=== PATIENT | male | born 1940 | race Caucasian/White ===

== ENCOUNTER → 2016-11-12 | Outpatient (CLI) | payer MEDICARE, MEDICAID | LOC: HH 11:53 | PROVIDERS: ATTEND Family Medicine | DX: L03.115 Cellulitis of right lower limb (principal); L03.116 Cellulitis of left lower limb; E03.9 Hypothyroidism, unspecified; I25.10 Atherosclerotic heart disease of native coronary artery without angina pectoris; I73.9 Peripheral vascular disease, unspecified; J44.9 Chronic obstructive pulmonary disease, unspecified; E66.01 Morbid (severe) obesity due to excess calories; H91.93 Unspecified hearing loss, bilateral; R26.81 Unsteadiness on feet | CPT/HCPCS: 87070; 87077; 87205 ==

== ENCOUNTER → 2016-11-18 | Outpatient (CLI) | payer MEDICARE, MEDICAID ==
[2016-11-18 16:36] LABS: BASOPHILS # (AUTO) 0.2 10^3/uL (0.0-0.1); BASOPHILS % (AUTO) 1 % (0-10); EOSINOPHILS # (AUTO) 0.7 10^3/uL (0.0-0.3); EOSINOPHILS % (AUTO) 6 % (0-10); LYMPHOCYTES # (AUTO) 2.4 X 10^3 (1.0-4.0); LYMPHOCYTES % (AUTO) 21 % (12-44); MEAN CORPUSCULAR HEMOGLOBIN 31 PG (25-34); MEAN CORPUSCULAR HGB CONC 30 G/DL (32-36); MEAN CORPUSCULAR VOLUME 103 FL (80-99); MEAN PLATELET VOLUME 11.3 FL (7.4-10.4); MONOCYTES # (AUTO) 1.1 X 10^3 (0.0-1.0); MONOCYTES % (AUTO) 10 % (0-12); NEUTROPHILS # (AUTO) 7.2 X 10^3 (1.8-7.8); NEUTROPHILS % (AUTO) 62 % (42-75); PLATELET COUNT 313 10^3/uL (130-400); RED CELL DISTRIBUTION WIDTH 13.2 % (10.0-14.5); WHITE BLOOD COUNT 11.6 10^3/uL (4.3-11.0)
[2016-11-18 16:53] LABS: ALANINE AMINOTRANSFERASE 26 U/L (0-55); ALBUMIN 3.7 GM/DL (3.2-4.5); ANION GAP 9 MMOL/L (5-14); ASPARTATE AMINO TRANSFERASE 27 U/L (5-34); BILIRUBIN,TOTAL 0.4 MG/DL (0.1-1.0); BLOOD UREA NITROGEN 20 MG/DL (7-18); BUN/CREATININE RATIO 25; CALCIUM 9.1 MG/DL (8.5-10.1); CARBON DIOXIDE 34 MMOL/L (21-32); CHLORIDE 99 MMOL/L (98-107); GFR ESTIMATED > 60; GLUCOSE 89 MG/DL (70-105); POTASSIUM 4.3 MMOL/L (3.6-5.0); SODIUM 142 MMOL/L (135-145); TOTAL PROTEIN 7.1 GM/DL (6.4-8.2)
== END ==
LOC: HH 16:28
PROVIDERS: ATTEND Family Medicine
DX: L03.115 Cellulitis of right lower limb (principal); I25.10 Atherosclerotic heart disease of native coronary artery without angina pectoris; J44.9 Chronic obstructive pulmonary disease, unspecified; E03.9 Hypothyroidism, unspecified; R06.02 Shortness of breath; E66.01 Morbid (severe) obesity due to excess calories; I95.9 Hypotension, unspecified; R60.0 Localized edema; R26.81 Unsteadiness on feet
CPT/HCPCS: 80053; 80202; 85025

== ENCOUNTER → 2016-11-25 | Outpatient (CLI) | payer MEDICARE, MEDICAID ==
[2016-11-25 15:26] LABS: MEAN PLATELET VOLUME 11.2 FL (7.4-10.4); RED BLOOD COUNT 4.13 10^6/uL (4.35-5.85); RED CELL DISTRIBUTION WIDTH 13.4 % (10.0-14.5); WHITE BLOOD COUNT 12.1 10^3/uL (4.3-11.0)
[2016-11-25 15:41] LABS: ANION GAP 8 MMOL/L (5-14); BLOOD UREA NITROGEN 19 MG/DL (7-18); BUN/CREATININE RATIO 23; CALCIUM 9.3 MG/DL (8.5-10.1); CARBON DIOXIDE 38 MMOL/L (21-32); CHLORIDE 95 MMOL/L (98-107); CREATININE SERUM 0.84 MG/DL (0.60-1.30); GFR ESTIMATED > 60; GLUCOSE 119 MG/DL (70-105); POTASSIUM 4.4 MMOL/L (3.6-5.0); SODIUM 141 MMOL/L (135-145)
== END ==
LOC: HH 14:00
PROVIDERS: ATTEND Family Medicine
DX: L03.115 Cellulitis of right lower limb (principal); L03.116 Cellulitis of left lower limb
CPT/HCPCS: 80048; 80202; 85027

== ENCOUNTER 2017-02-27 20:06 | Inpatient (IN) | payer MEDICARE, MEDICAID ==
[~2017-02-27] VITALS: Ht 172.7 cm; Wt 121.2 kg
[~2017-02-27 20:06] MED LIST: FUROSEMIDE 40 MG/4 ML INJ (LASIX) ONE; MIDAZOLAM 5 MG/5 ML (VERSED) VIAL IV ONE; ROCURONIUM 50 MG/5 ML (ZEMURON) VIAL IV ONE; SUCCINYLCHOLINE INJ 100 MG/5 ML SYR INJ ONE; methylPREDNISolone 125 MG (Solu-MEDROL) VIAL ONE
[2017-02-27] MEDS ORDERED: methylPREDNISolone 125 MG (Solu-MEDROL) VIAL IVP ONE (20:15)
[2017-02-27] MEDS ORDERED: DEXAMETHASONE 10 MG/ML (DECADRON) 1 ML VIAL INH ONE (20:15)
[2017-02-27] MEDS ORDERED: ACETAMINOPHEN 650 MG SUPP (TYLENOL) PR ONE (20:15)
[2017-02-27] MEDS ORDERED: RT-ALBUTEROL/IPRATROPIUM 3 ML (DUONEB) VIAL INH ONE (20:15)
[2017-02-27 20:23] LABS: ABG BASE EXCESS 8.1 MMOL/L (-2.5-2.5); ABG HCO3 33 MMOL/L (23-27); ABG OXYGEN SATURATION 86 % (94-100); ABG PCO2 59 MMHG (35-45); ABG PH 7.38 (7.37-7.43); ABG PO2 53 MMHG (79-93); ABG TCO2 34.6 MMOL/L (21.0-31.0)
[2017-02-27 20:28] LABS: BASOPHILS # (AUTO) 0.1 10^3/uL (0.0-0.1); BASOPHILS % (AUTO) 0 % (0-10); EOSINOPHILS # (AUTO) 0.1 10^3/uL (0.0-0.3); EOSINOPHILS % (AUTO) 0 % (0-10); LYMPHOCYTES # (AUTO) 2.1 X 10^3 (1.0-4.0); LYMPHOCYTES % (AUTO) 10 % (12-44); MEAN CORPUSCULAR HEMOGLOBIN 31 PG (25-34); MEAN CORPUSCULAR HGB CONC 30 G/DL (32-36); MEAN CORPUSCULAR VOLUME 102 FL (80-99); MEAN PLATELET VOLUME 10.9 FL (7.4-10.4); MONOCYTES # (AUTO) 1.7 X 10^3 (0.0-1.0); MONOCYTES % (AUTO) 8 % (0-12); NEUTROPHILS # (AUTO) 17.4 X 10^3 (1.8-7.8); NEUTROPHILS % (AUTO) 81 % (42-75); PLATELET COUNT 363 10^3/uL (130-400); RED BLOOD COUNT 4.42 10^6/uL (4.35-5.85); RED CELL DISTRIBUTION WIDTH 13.8 % (10.0-14.5); WHITE BLOOD COUNT 21.4 10^3/uL (4.3-11.0)
[2017-02-27 20:28] LABS: ALLENS TEST POSITIVE
[2017-02-27 20:29] LABS: PATIENT TEMP 102.1
[2017-02-27 20:38] LABS: INR 0.9 (0.8-1.4); PROTHROMBIN TIME PATIENT 12.5 SEC (12.2-14.7)
[2017-02-27 20:47] LABS: ALANINE AMINOTRANSFERASE 18 U/L (0-55); ALBUMIN 4.2 GM/DL (3.2-4.5); ANION GAP 10 MMOL/L (5-14); ASPARTATE AMINO TRANSFERASE 20 U/L (5-34); BILIRUBIN,TOTAL 0.7 MG/DL (0.1-1.0); BLOOD UREA NITROGEN 20 MG/DL (7-18); BUN/CREATININE RATIO 17; CALCIUM 9.8 MG/DL (8.5-10.1); CARBON DIOXIDE 35 MMOL/L (21-32); CHLORIDE 93 MMOL/L (98-107); CREATININE SERUM 1.17 MG/DL (0.60-1.30); GFR ESTIMATED 60; GLUCOSE 123 MG/DL (70-105); MAGNESIUM 1.9 MG/DL (1.8-2.4); POTASSIUM 4.7 MMOL/L (3.6-5.0); SODIUM 138 MMOL/L (135-145); TOTAL PROTEIN 8.6 GM/DL (6.4-8.2)
[2017-02-27] MEDS ORDERED: ACETAMINOPHEN 120 MG SUPP (TYLENOL) PR STA (20:47)
[2017-02-27 20:48] LABS: BAND NEUTROPHILS 0 %; BASOPHILS % (MANUAL) 0 %; EOSINOPHILS % (MANUAL) 0 %; LYMPHOCYTES % (MANUAL) 8 %; NEUTROPHILS % (MANUAL) 87 %
[2017-02-27 20:53] LABS: MYOGLOBIN SERUM 72.8 NG/ML (10.0-92.0)
--- NOTE | 2017-02-27 20:59 | Diagnostic Imaging Report ---
INDICATION: Shortness of breath COMPARISON: None FINDINGS: Single view of the chest demonstrates ET tube in the midtrachea. There is an NG tube in the stomach. Heart is enlarged. There are interstitial infiltrates scattered throughout both lungs, more so in the bases. There is no pneumothorax or large effusion. IMPRESSION: 1. Well-positioned support lines without pneumothorax. 2. Cardiac enlargement with interstitial infiltrates representing pulmonary edema versus pneumonia. Dictated by: Dictated on workstation # [id number]
[2017-02-27] MEDS ORDERED: ROCURONIUM 50 MG/5 ML (ZEMURON) VIAL IV ONE ×2 (21:13→21:30)
[2017-02-27] MEDS ORDERED: FUROSEMIDE 40 MG/4 ML INJ (LASIX) IVP ONE (21:15)
[2017-02-27] MEDS ORDERED: cefTRIAXone INJECTION 2,000 MG in NS (IVPB) 50 ML IV ONE (21:15)
--- NOTE | 2017-02-27 21:33 | ED Respiratory ---
General Chief Complaint: Respiratory Problems Stated Complaint: ACUTE ON CHRONIC RESPIRATORY FAILURE,COPD,PNEUMONI Nursing Triage Note: PT TO ED 7 PER EMS FOR C/O SOB. PT PRESENTLY ON CPAP, APPEARS TO STILL BE STRUGGLING TO BREATH. RT, DR HOOK ET STAFF AT BEDSIDE Source: patient, EMS, old records (NO OLD RECORDS ) Exam Limitations: clinical condition (PT IS MINIMAL HISTORIAN DUE TO SEVERE SHORTNESS OF BREATH) History of Present Illness Time seen by provider: 20:07 Initial Comments PT ARRIVES VIA EMS FROM HOME C/O SHORTNESS OF BREATH FOR 2-3 DAYS--PT HAS HISTORY OF COPD AND CHF C/O PRODUCTIVE COUGH HAS HAD SUBJECTIVE FEVER SOME CHEST TIGHTNESS HAS CHRONIC LEG EDEMA--LEGS WRAPPED O2 SAT 88 ON 15L/NRB AT SCENE BY EMS, PT PLACED ON CPAP BY EMS ON ARRIVAL, PT STATES THAT HE HAS BEEN ON A VENTILATOR IN THE PAST, AND AGREES TO INTUBATION AND CPR ON ARRIVAL FAMILY ( AND DAUGHTER) ARRIVES LATER AND REPORTS THAT PT HAS HOME HEALTH AND NURSE WAS THERE YESTERDAY AND ADVISED HIM TO GO TO DR YESTERDAY DUE TO BREATHING AND CHEST CONGESTION, BUT PT REFUSED THEY ARE UNABLE TO PROVIDE ANY OTHER RELEVANT PAST MEDICAL HISTORY PCP: [facility], FAMILIA RAYMUNDO STATES 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 Allergies and Home Medications Allergies Coded Allergies: Sulfa (Sulfonamide Antibiotics) (Verified Allergy, Unknown, 02/27/17) Constitutional: fever, other (LIMITED INFORMATION OBTAINABLE AT THIS TIME) Respiratory: cough, orthopnea, phlegm, short of breath, wheezing Cardiovascular: see HPI, chest pain, edema Past Ptkfado-Pyarmu-Gfzohf Hx Patient Social History Alcohol Use: Denies Use (UNKNOWN) Recreational Drug Use: No (UNKNOWN) Smoking Status: Current Everyday Smoker (2-3 PPD) Type Used: Cigarettes Recent Foreign Travel: No Contact w/Someone Who Travel: No Recent Infectious Disease Expo: No Recent Hopitalizations: No Physical Abuse: No Sexual Abuse: No Mistreated: No Fear: No Surgeries History of Surgeries: Yes Surgeries: Abdominal (UNKNOWN TYPE) Respiratory History of Respiratory Disorde: Yes (PT STATES HE HAS BEEN ON VENTILATOR IN PAST) Respiratory Disorders: Pneumonia, COPD Cardiovascular History of Cardiac Disorders: Yes (CHF) Cardiac Disorders: Chronic Edema/Swelling Neurological History of Neurological Disord: No (UNKNOWN) Genitourinary History of Genitourinary Disor: No (unknown, pt unable to give hx) Musculoskeletal History of Musculoskeletal Dis: No (unknown, pt unable to give hx) Endocrine History of Endocrine Disorders: No (UNKNOWN) HEENT History of HEENT Disorders: No (UNKNOWN) Cancer History of Cancer: No (UNKNOWN) Psychosocial History of Psychiatric Problem: No (UNKNOWN) Suicide Risk Score: 0 Integumentary History of Skin or Integumenta: No (UNKNOWN) Blood Transfusions History of Blood Disorders: No (UNKNOWN) Physical Exam Vital Signs Vital Sign - Last 12Hours 02/27/17 20:07 Temp 102.1 Pulse 134 Resp 28 B/P (MAP) 142/102 Pulse Ox 88 O2 Delivery NIV/CPAP O2 Flow Rate 15.00 Capillary Refill : Greater Than 3 Seconds General Appearance: severe distress (SEVERE DYSPNEA, + ORTHOPNEA, CAN ONLY TALK 1 WORD AT A TIME), obese, other (REEKS OF CIGARETTEWS) HEENT: other (MISSING TEETH/POOR DENTITION) Respiratory: respiratory distress, decreased breath sounds (IN ALL LUNG ADVILA) , rales, rhonchi, wheezing, other (IN ALL LUNG DAVILA) Cardiovascular: tachycardia Gastrointestinal: soft Extremities: other (APPEARS TO HAVE 2+ EDEMA IN WRAPPED LEGS. ) Neurologic/Psychiatric: no motor/sensory deficits (GROSSLY INTACT), alert (BUT APPEARS TO BE WEARING OUT), other (ANXIOUS) Skin: other (FINGERS AND TOES DUSKY. SKIN VERY WARM AND FLUSHED WITH GOOSEBUMPS ) Focused Exam Evaluation Lactate Level Laboratory Tests 02/27/17 20:19: Lactic Acid Level 1.56 Lactic Acid Level Laboratory Tests Test 02/27/17 20:19 Lactic Acid Level 1.56 MMOL/L (0.50-2.00) Reason for Intubation: ACUTE RESPIRATORY FAILURE Intubation Method: orotracheal Tube Size: 8.0 Medications: Rocuronium, Succinylcholine, Versed Positive End Tide CO2: Yes Breath Sounds after Intubation: bilateral-equal Intubation Complications: no complications Post Intubation Xray: Yes Progress O2 SATS UP TO 100% AFTER INTUBATION Progress/Results/Core Measures Results/Orders Lab Results Laboratory Tests Test 02/27/17 20:17 02/27/17 20:19 Range/Units Blood Gas Puncture Site RIGHT RADIAL Blood Gas Patient Temperature 102.1 Arterial Blood pH 7.38 7.37-7.43 Arterial Blood Partial Pressure CO2 59 H 35-45 MMHG Arterial Blood Partial Pressure O2 53 L 79-93 MMHG Arterial Blood HCO3 33 H 23-27 MMOL/L Arterial Blood Total CO2 34.6 H 21.0-31.0 MMOL/L Arterial Blood Oxygen Saturation 86 L 94-100 % Arterial Blood Base Excess 8.1 H -2.5-2.5 MMOL/L Harshal Test POSITIVE Blood Gas Ventilator Setting NO Blood Gas Inspired Oxygen 15L (bipap <5min) White Blood Count 21.4 H 4.3-11.0 10^3/uL Red Blood Count 4.42 4.35-5.85 10^6/uL Hemoglobin 13.7 13.3-17.7 G/DL Hematocrit 45 40-54 % Mean Corpuscular Volume 102 H 80-99 FL Mean Corpuscular Hemoglobin 31 25-34 PG Mean Corpuscular Hemoglobin Concent 30 L 32-36 G/DL Red Cell Distribution Width 13.8 10.0-14.5 % Platelet Count 363 130-400 10^3/uL Mean Platelet Volume 10.9 H 7.4-10.4 FL Neutrophils (%) (Auto) 81 H 42-75 % Lymphocytes (%) (Auto) 10 L 12-44 % Monocytes (%) (Auto) 8 0-12 % Eosinophils (%) (Auto) 0 0-10 % Basophils (%) (Auto) 0 0-10 % Neutrophils # (Auto) 17.4 H 1.8-7.8 X 10^3 Lymphocytes # (Auto) 2.1 1.0-4.0 X 10^3 Monocytes # (Auto) 1.7 H 0.0-1.0 X 10^3 Eosinophils # (Auto) 0.1 0.0-0.3 10^3/uL Basophils # (Auto) 0.1 0.0-0.1 10^3/uL Neutrophils % (Manual) 87 % Lymphocytes % (Manual) 8 % Monocytes % (Manual) 5 % Eosinophils % (Manual) 0 % Basophils % (Manual) 0 % Band Neutrophils 0 % Blood Morphology Comment NORMAL Prothrombin Time 12.5 12.2-14.7 SEC INR Comment 0.9 0.8-1.4 Activated Partial Thromboplast Time 27 24-35 SEC Sodium Level 138 135-145 MMOL/L Potassium Level 4.7 3.6-5.0 MMOL/L Chloride Level 93 L 98-107 MMOL/L Carbon Dioxide Level 35 H 21-32 MMOL/L Anion Gap 10 5-14 MMOL/L Blood Urea Nitrogen 20 H 7-18 MG/DL Creatinine 1.17 0.60-1.30 MG/DL Estimat Glomerular Filtration Rate 60 BUN/Creatinine Ratio 17 Glucose Level 123 H 70-105 MG/DL Lactic Acid Level 1.56 0.50-2.00 MMOL/L Calcium Level 9.8 8.5-10.1 MG/DL Magnesium Level 1.9 1.8-2.4 MG/DL Total Bilirubin 0.7 0.1-1.0 MG/DL Aspartate Amino Transf (AST/SGOT) 20 5-34 U/L Alanine Aminotransferase (ALT/SGPT) 18 0-55 U/L Alkaline Phosphatase 90 40-136 U/L Myoglobin 72.8 10.0-92.0 NG/ML Troponin I < 0.30 <0.30 NG/ML B-Type Natriuretic Peptide 16.8 <100.0 PG/ML Total Protein 8.6 H 6.4-8.2 GM/DL Albumin 4.2 3.2-4.5 GM/DL Medications Given in ED Current Medications Medications Dose Ordered Sig/Alexandro Route Start Time Stop Time Status Last Admin Dose Admin Albuterol/ Ipratropium 15 ml ONCE ONCE INH 02/27/17 20:15 02/27/17 20:16 DC 02/27/17 21:31 15 ML Dexamethasone Sodium Phosphate 30 mg ONCE ONCE INH 02/27/17 20:15 02/27/17 20:16 DC 02/27/17 21:31 30 MG Methylprednisolone Sodium Succinate 250 mg ONCE ONCE IVP 02/27/17 20:15 02/27/17 20:16 DC 02/27/17 20:10 250 MG Vital Signs/I&O Vital Sign - Last 12Hours 02/27/17 20:07 Temp 102.1 Pulse 134 Resp 28 B/P (MAP) 142/102 Pulse Ox 88 O2 Delivery NIV/CPAP O2 Flow Rate 15.00 Blood Pressure Mean: 115 Progress Note : Progress Note O2 SAT 97% ON OXIMASK ON ARRIVAL PT IMMEDIATELY PLACED ON BIPAP, WITH SATS REMAINING IN MID 80'S AND PT BEGINNING TO QUICKLY SHOW SIGNS OF RESPIRATORY FATIGUE PT INTUBATED BY FAMILIA FERRER WITHOUT COMPLICATION, AND IMMEDIATE IMPROVEMENT IN O2 SATS TO 100% NO DETERIORATION IN PT'S CONDITION DURING ER STAY TEMP ON ARRIVAL 102--GIVE TYLENOL SUPPOSITORY --TEMP DOWN AT TIME OF ADMIT ECG Initial ECG Impression Time: 20:41 Initial ECG Rate: 130 Initial ECG Rhythm: S.Tach Initial ECG Comparisson: No Previous ECG Available Diagnostic Imaging Comments CXR--LINES WITH ADEQUATE PLACEMENT, CARDIAC ENLARGEMENT WITH INTERSTITIAL INFILTRATES--PULMONARY EDEMA AND/OR PNEUMONIA, PER RADIOLOGIST REPORT AT 2105 Reviewed: Reviewed by Me Critical Care Note Critical Care Total Time (minutes) 45 Departure Communication (Admissions) Progress Notes 2032--SPOKE WITH DR. Yasmany PISANO, ACCEPTS PT FOR ADMIT. Impression Impression: Primary Impression: Acute on chronic respiratory failure Additional Impressions: COPD (chronic obstructive pulmonary disease) Pneumonia Sepsis Disposition: ADMITTED INPATIENT Condition: Improved Admissions Decision to Admit Reason: Admit from ER (General) Decision to Admit/Date: Feb 27, 2017 Time/Decision to Admit Time: 20:35 Departure-Patient Inst. Referrals: RYAN RODRÍGUEZ DO (PCP) Primary Care Physician EDSON HOOK DO Feb 27, 2017 21:33
--- OUTSIDE RECORDS SUMMARY | 2017-02-27 21:44 | XMS REPORT | Clinical Summary ---
Author Author Admin, E Organization [employer] Address Unknown Phone Unavailable Allergies, Adverse Reactions, Alerts Allergy Name Reaction Description Start Date Severity Status Provider SULFA Severe Active Austin Albarado MD Conditions or Problems Problem Name Problem Code Onset Date Status Entry Date Provider Comment Standard Description Annotate Asthma 493.90 Active Austin Albarado MD Asthma , unspecified Hypothyroidism 244.9 Active Austin Albarado MD Unspecified hypothyroidism COPD 496 Active Austin Albarado MD Chronic airway obstruction, not elsewhere classified Peripheral edema 782.3 Active Austin Albarado MD Edema Tinea corporis 110.5 Active Austin Albarado MD Dermatophytosis of the body U R I 465.9 Inactive Austin Albarado MD Acute upper respiratory infections of unspecified site Screening for lipoid disorders V77.91 Active Mica Sneed Screening for lipoid disorders Health screening V70.0 Active Mica Sneed Routine general medical examination at a health care facility Seasonal allergies 477.9 Active Austin Albarado MD Allergic rhinitis, cause unspecified Tobacco abuse 305.1 Active Austin Albarado MD Tobacco use disorder Rash 782.1 Active Tristan Vaughn MD Rash and other nonspecific skin eruption Influenza, with respiratory symptoms 487.1 Active Jann Law DO Influenza with other respiratory manifestations COPD, acute exacerbation 491.21 Active Jann Law DO Obstructive chronic bronchitis with (acute) exacerbation Bronchitis-Acute 466.0 Inactive Austin Albarado MD Acute bronchitis Chest pain 786.50 Active Austin Albarado MD Unspecified chest pain Chronic obstructive pulmonary disease, 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 Tracie Arrington APRN Chronic airway obstruction, not elsewhere classified Family history of myocardial infarction V17.3 Active Tracie Arrington APRN Family history of ischemic heart disease CAD 414.00 Active Tracie Arrington APRN Coronary atherosclerosis of unspecified type of vessel, [place] or graft Peripheral edema 782.3 Active Austin Albarado MD Edema Shortness of breath 786.05 Active Simona Galloway APRN Shortness of breath Hypotension 458.9 Active Simona Galloway APRN Hypotension, unspecified Shingles 053.9 Active Simona Galloway APRN Herpes zoster without mention of complication Arthritis, generalized 716.99 Active Austin Albarado MD Arthropathy unspecified, involving multiple sites Cellulitis, legs 682.6 Active Simona Galloway APRN Cellulitis and abscess of leg, except foot Morbid obesity 278.01 Active Simona Galloway APRN Morbid obesity Unsteady gait 781.2 Active Simona Galloway APRN Abnormality of gait U R I ICD-465.9 Inactive Austin Albarado MD 06/13 Bronchitis-Acute ICD-466.0 Inactive Austin Albarado MD Medication List Medication Instructions Start Date Stop Date Generic Name NDC Status Provider Patient Instruction IPRATROPIUM-ALBUTEROL 0.5-2.5 (3) MG/3ML INH SOLN Use one ampule in Nebulizer Q 6 hrs prn DX: J44.9 IPRATROPIUM-ALBUTEROL 22199284389 Active Mackenzie Sher RMA Active IPRATROPIUM BROMIDE 0.02 % INH SOLN 1 q 6 hr PRN Dx: J44.1 12/29 IPRATROPIUM BROMIDE 02467045704 No Longer Active Mackenzie Christos RMA Active ACYCLOVIR 400 MG TABS 1 pill three times daily ACYCLOVIR 58342590320 No Longer Active Austin Albarado MD Active POTASSIUM CHLORIDE ER 20 MEQ ORAL CR-TABS 1 po BID along with the lasix 12/24 POTASSIUM CHLORIDE 36448854090 Active Austin Albarado MD Active FUROSEMIDE 40 MG TAB 1 tablet by mouth BID for swelling FUROSEMIDE 83955935875 Active Austin Alabrado MD Active CELEXA 20 MG TABS 1 tablet by mouth daily CITALOPRAM HYDROBROMIDE 34514407851 Active Austin Albarado MD Active KEFLEX 500 MG CAP 1 po BID x 7 days CEPHALEXIN 20154842421 No Longer Active Mica Sneed Active KEFLEX 500 MG CAP 1 po BID x 7 days CEPHALEXIN 96755984774 No Longer Active Simona Galloway APRN Active ACYCLOVIR 400 MG TABS 1 pill three times daily ACYCLOVIR 43252869578 No Longer Active Austin Albarado MD Active ACYCLOVIR 400 MG TABS 1 pill three times daily ACYCLOVIR 02982259425 No Longer Active Austin Albaardo MD Active ALBUTEROL SULFATE 0.083 % NEBU SOLN one vial per nebulizer every 4 hours as needed Dx. J44.1 ALBUTEROL SULFATE 62996206576 Active Austin Albarado MD Active PROAIR HFA 108 (90 BASE) MCG/ACT AERS take 1-2 puffs q 4-6 hrs prn cough/ SOB ALBUTEROL SULFATE 20280575612 Active Nella José LPN Active IPRATROPIUM-ALBUTEROL 0.5-2.5 (3) MG/3ML SOLN 1 VIAL NEB Q 4-6 HRS PRN 04/18 IPRATROPIUM-ALBUTEROL 86485445907 No Longer Active Austin Albarado MD Active ATIVAN 0.5 MG TAB 1 po QD PRN Anxiety LORAZEPAM 33871678265 Active Austin Albarado MD Active PREDNISONE 20 MG ORAL TABS 3 tabs po for 3 days than,2 tabs po for 3 days,1 tab po for 3 days, 1/2 tab po for 3 days. PREDNISONE 14539051239 No Longer Active Simona Galloway APRN Active LEVAQUIN 500 MG TAB 1 tablet by mouth daily LEVOFLOXACIN 62871360055 No Longer Active Simona Galloway APRN Active PREDNISONE 20 MG TAB take 3 tabs daily for 3 days, 2 tabs daily for 3 days, 1 tab daily for 3 days, 1/2 tab daily for 3 days PREDNISONE 81853268921 No Longer Active Austin Albarado MD Active LEVAQUIN 500 MG TAB 1 tablet by mouth daily LEVOFLOXACIN 75027366172 No Longer Active Madhavi Macarena Active FUROSEMIDE 20 MG TABS take 1 tab po BID for swelling FUROSEMIDE 44659402629 Active Austin Albarado MD Active AMOXICILLIN 500 MG ORAL TABS Take one by mouth 3 times daily, morning, afternoon and evening.] AMOXICILLIN 92317508558 No Longer Active Garcia Stroud MD Active PREDNISONE 20 MG ORAL TABS 3 daily for 3 days than, 2 tabs daily for 3 days than, 2 tabs daily for 3 days than, 1 tab daily for 3 days than 1/2 tab daily for 3 days. PREDNISONE 35340154470 No Longer Active Tracie Arrington APRN Active FLUTICASONE PROPIONATE 50 MCG/ACT SUSP 1 to 2 sprays each nostril daily 08/21 FLUTICASONE PROPIONATE 96996918302 Active Austin Albarado MD Active PREDNISONE 10 MG TAB take 1 tab po qday for severe COPD PREDNISONE 14405547648 Active Austin Albarado MD Active PREDNISONE 20 MG ORAL TABS 3 TABS PO FOR 3 DAYS,THAN 2 TABS FOR 3 DAYS THAN, 1 TAB FOR 3 DAYS THAN, 1/2 TAB FOR 3 DAYS. PREDNISONE 37434464996 No Longer Active Austin Albarado MD Active LEVAQUIN 500 MG TAB 1 tablet by mouth daily for 10 days. LEVOFLOXACIN 12251739211 No Longer Active Austin Albarado MD Active PREDNISONE 20 MG TAB take 3 tabs daily for 3 days, 2 tabs daily for 3 days, 1 tab daily for 3 days, 1/2 tab daily for 3 days PREDNISONE 19529985764 No Longer Active Simona Galloway APRN Active ZITHROMAX 1 GM ORAL PACK DIRECTED AZITHROMYCIN 34451586679 No Longer Active Simona Galloway APRN Active PREDNISONE 20 MG TAB 2 tabs daily for 4 days, 1 tab daily for 4 days, 1/2 tab daily for 4 days PREDNISONE 72854510043 No Longer Active Austin Albarado MD Active LEVAQUIN 500 MG TAB 1 tablet by mouth daily LEVOFLOXACIN 73892905740 No Longer Active Austin Albarado MD Active PREDNISONE 20 MG TAB take 3 tabs daily for 3 days, 2 tabs daily for 3 days, 1 tab daily for 3 days, 1/2 tab daily for 3 days PREDNISONE 01140262353 No Longer Active Austin Albarado MD Active DOXYCYCLINE HYCLATE 100 MG CAP 1 cap by mouth twice daily DOXYCYCLINE HYCLATE 38771043024 No Longer Active Esperanza Modi APRN Active ALBUTEROL SULFATE (2.5 MG/3ML) 0.083% NEBU nebulize 1 vial q 4-6 hours prn shortness of breath ALBUTEROL SULFATE 55685009772 No Longer Active Esperanza Modi APRN Active TORSEMIDE 20 MG TABS 1 TAB PO BID TORSEMIDE 72595112744 No Longer Active Esperanza Modi JESSI Active PREDNISONE 20 MG TAB 2 tabs daily for 3 days, 1 tab daily for 3 days, 1/2 tab daily for 2 days PREDNISONE 43957416522 No Longer Active Austin Albarado MD Active LEVOFLOXACIN 500 MG ORAL TABS take 1 tab po qday LEVOFLOXACIN 83315002737 No Longer Active Austin Albarado MD Active PREDNISONE 20 MG TAB 2 tablets today, then 1 tablet by mouth days 2-5 PREDNISONE 08782880945 No Longer Active Austin Albarado MD Active AZITHROMYCIN 500 MG SOLR 1 po q day AZITHROMYCIN 06331854664 No Longer Active Austin Albarado MD Active KEFLEX 500 MG CAP 1 po TID x 7 days CEPHALEXIN 78469306113 No Longer Active Tristan Vaughn MD Active EQL VISION FORMULA TABS 1 TAB PO DAILY MULTIPLE VITAMINS-MINERALS 28751645142 No Longer Active Tristan Vaughn MD Active CHANTIX STARTING MONTH ELVIS 0.5 MG X 11 & 1 MG X 42 TABS 0.5mg daily for 3 days , then 0.5mg BID for 4 days, then 1mg BID VARENICLINE TARTRATE 90111592375 No Longer Active Tristan Vaughn MD Active LEVOTHYROXINE SODIUM 200 MCG TABS 1 TAB PO DAILY LEVOTHYROXINE SODIUM 95348779010 No Longer Active Tristan Vaguhn MD Active LIOTHYRONINE SODIUM 50 MCG TABS take 1 tab po qday for hypothyroidism LIOTHYRONINE SODIUM 71372336085 No Longer Active Austin Albarado MD Active SYNTHROID 0.025 MG TAB 1 tablet by mouth daily LEVOTHYROXINE SODIUM 10668593126 No Longer Active Austin Albarado MD Active ARMOUR THYROID 120 MG TABS take 1 tab po qday for hypothyroidism THYROID 14422573535 Active Austin Albarado MD Active FLONASE 50 MCG/ACT SUSP 1 spray each nostril am and hs FLUTICASONE PROPIONATE Active Simona Galloway APRN Active ZITHROMAX 1 GM PACK DIRECTED AZITHROMYCIN 06202795877 No Longer Active Austin Albarado MD Active PREDNISONE 20 MG TAB 2 tabs daily for 3 days, 1 tab daily for 3 days, 1/2 tab daily for 2 days PREDNISONE 73211618070 No Longer Active Austin Albarado MD Active ZITHROMAX 250 MG TAB 2 po today, then 1 po q days 2-5 AZITHROMYCIN 25923561736 No Longer Active Austin Albarado MD Active NYSTATIN-TRIAMCINOLONE 543917-8.1 UNIT/GM-% OINT Apply to affected area TID NYSTATIN-TRIAMCINOLONE 21660330581 Active Austin Albarado MD Active ADVAIR DISKUS 500-50 MCG/DOSE AEPB ONE INH BID FLUTICASONE- SALMETEROL 40102701971 Active Austin Albarado MD Active ZITHROMAX 1 GM PACK DIRECTED ZITHROMAX 1 GM PACK 322565 AZITHROMYCIN Inactive SYNTHROID 0.025 MG TAB 1 tablet by mouth daily SYNTHROID 0.025 MG TAB 748510 LEVOTHYROXINE SODIUM Inactive LIOTHYRONINE SODIUM 50 MCG TABS take 1 tab po qday for hypothyroidism LIOTHYRONINE SODIUM 50 MCG TABS 386016 LIOTHYRONINE SODIUM Inactive LEVOTHYROXINE SODIUM 200 MCG TABS 1 TAB PO DAILY LEVOTHYROXINE SODIUM 200 MCG TABS 589027 LEVOTHYROXINE SODIUM Inactive CHANTIX STARTING MONTH ELVIS 0.5 MG X 11 & 1 MG X 42 TABS 0.5mg daily for 3 days , then 0.5mg BID for 4 days, then 1mg BID CHANTIX STARTING MONTH ELVIS 0.5 MG X 11 & 1 MG X 42 TABS VARENICLINE TARTRATE Inactive EQL VISION FORMULA TABS 1 TAB PO DAILY EQL VISION FORMULA TABS MULTIPLE VITAMINS-MINERALS Inactive AZITHROMYCIN 500 MG SOLR 1 po q day AZITHROMYCIN 500 MG SOLR 91140494422 AZITHROMYCIN Inactive PREDNISONE 20 MG TAB 2 tablets today, then 1 tablet by mouth days 2-5 PREDNISONE 20 MG TAB 989486 PREDNISONE Inactive TORSEMIDE 20 MG TABS 1 TAB PO BID TORSEMIDE 20 MG TABS 714600 TORSEMIDE Inactive ALBUTEROL SULFATE (2.5 MG/3ML) 0.083% NEBU nebulize 1 vial q 4-6 hours prn shortness of breath ALBUTEROL SULFATE (2.5 MG/3ML) 0.083% NEBU 629574 ALBUTEROL SULFATE Inactive LEVAQUIN 500 MG TAB 1 tablet by mouth daily LEVAQUIN 500 MG TAB 811160 LEVOFLOXACIN Inactive PREDNISONE 20 MG TAB 2 tabs daily for 4 days, 1 tab daily for 4 days, 1/2 tab daily for 4 days PREDNISONE 20 MG TAB 053840 PREDNISONE Inactive ZITHROMAX 1 GM ORAL PACK DIRECTED ZITHROMAX 1 GM ORAL PACK 776628 AZITHROMYCIN Inactive LEVAQUIN 500 MG TAB 1 tablet by mouth daily for 10 days. LEVAQUIN 500 MG TAB 491852 LEVOFLOXACIN Inactive PREDNISONE 20 MG ORAL TABS 3 TABS PO FOR 3 DAYS,THAN 2 TABS FOR 3 DAYS THAN, 1 TAB FOR 3 DAYS THAN, 1/2 TAB FOR 3 DAYS. PREDNISONE 20 MG ORAL TABS 854392 PREDNISONE Inactive PREDNISONE 20 MG ORAL TABS 3 daily for 3 days than, 2 tabs daily for 3 days than, 2 tabs daily for 3 days than, 1 tab daily for 3 days than 1/2 tab daily for 3 days. PREDNISONE 20 MG ORAL TABS 405336 PREDNISONE Inactive AMOXICILLIN 500 MG ORAL TABS Take one by mouth 3 times daily, morning, afternoon and evening.] AMOXICILLIN 500 MG ORAL TABS 675921 AMOXICILLIN Inactive LEVAQUIN 500 MG TAB 1 tablet by mouth daily LEVAQUIN 500 MG TAB 421179 LEVOFLOXACIN Inactive LEVAQUIN 500 MG TAB 1 tablet by mouth daily LEVAQUIN 500 MG TAB 865312 LEVOFLOXACIN Inactive PREDNISONE 20 MG ORAL TABS 3 tabs po for 3 days than,2 tabs po for 3 days,1 tab po for 3 days, 1/2 tab po for 3 days. PREDNISONE 20 MG ORAL TABS 532336 PREDNISONE Inactive IPRATROPIUM BROMIDE 0.02 % INH SOLN 1 q 6 hr PRN Dx: J44.1 12/29 IPRATROPIUM BROMIDE 0.02 % INH SOLN 011408 IPRATROPIUM BROMIDE Inactive ZITHROMAX 250 MG TAB 2 po today, then 1 po q days 2-5 ZITHROMAX 250 MG TAB 9890867 AZITHROMYCIN Inactive PREDNISONE 20 MG TAB 2 tabs daily for 3 days, 1 tab daily for 3 days, 1/2 tab daily for 2 days PREDNISONE 20 MG TAB 257411 PREDNISONE Inactive KEFLEX 500 MG CAP 1 po TID x 7 days KEFLEX 500 MG CAP 949341 CEPHALEXIN Inactive LEVOFLOXACIN 500 MG ORAL TABS take 1 tab po qday LEVOFLOXACIN 500 MG ORAL TABS 437903 LEVOFLOXACIN Inactive PREDNISONE 20 MG TAB 2 tabs daily for 3 days, 1 tab daily for 3 days, 1/2 tab daily for 2 days PREDNISONE 20 MG TAB 019568 PREDNISONE Inactive DOXYCYCLINE HYCLATE 100 MG CAP 1 cap by mouth twice daily DOXYCYCLINE HYCLATE 100 MG CAP 4223815 DOXYCYCLINE HYCLATE Inactive PREDNISONE 20 MG TAB take 3 tabs daily for 3 days, 2 tabs daily for 3 days, 1 tab daily for 3 days, 1/2 tab daily for 3 days PREDNISONE 20 MG TAB 369911 PREDNISONE Inactive PREDNISONE 20 MG TAB take 3 tabs daily for 3 days, 2 tabs daily for 3 days, 1 tab daily for 3 days, 1/2 tab daily for 3 days PREDNISONE 20 MG TAB 105464 PREDNISONE Inactive PREDNISONE 20 MG TAB take 3 tabs daily for 3 days, 2 tabs daily for 3 days, 1 tab daily for 3 days, 1/2 tab daily for 3 days PREDNISONE 20 MG TAB 762333 PREDNISONE Inactive ACYCLOVIR 400 MG TABS 1 pill three times daily ACYCLOVIR 400 MG TABS 19720518 ACYCLOVIR Inactive ACYCLOVIR 400 MG TABS 1 pill three times daily ACYCLOVIR 400 MG TABS 19720518 ACYCLOVIR Inactive KEFLEX 500 MG CAP 1 po BID x 7 days KEFLEX 500 MG CAP 189438 CEPHALEXIN Inactive KEFLEX 500 MG CAP 1 po BID x 7 days KEFLEX 500 MG CAP 150624 CEPHALEXIN Inactive ACYCLOVIR 400 MG TABS 1 pill three times daily ACYCLOVIR 400 MG TABS 19720518 ACYCLOVIR Inactive Advance Directives Directive Description Start Date PERMISSION TO SHARE DISCUSSED WITH PATIENT -- NO DECISION MADE Immunizations Vaccine Administration Date Value Standard Description pneumococcal immunization administered Pneumovax 23 [CVX33] pneumococcal polysaccharide vaccine, 23 valent Vital Signs Date Name Value Unit Range Description blood pressure, diastolic 66 mm[Hg] BP fernandes blood pressure, systolic 107 mm[Hg] BP sys height E&M 68 [in_us] Bdy height pulse rate E&M 108 /min Heart rate temperature E&M 97.6 [degF] Body temperature blood pressure, diastolic 61 mm[Hg] BP fernandes blood pressure, systolic 119 mm[Hg] BP sys height E&M 68 [in_us] Bdy height pulse rate E&M 119 /min Heart rate temperature E&M 98.4 [degF] Body temperature weight E&M 280 [lb_av] Weight Measured blood pressure, diastolic 55 mm[Hg] BP fernandes blood pressure, systolic 140 mm[Hg] BP sys height E&M 68 [in_us] Bdy height pulse rate E&M 119 /min Heart rate temperature E&M 98.6 [degF] Body temperature weight E&M 275 [lb_av] Weight Measured blood pressure, diastolic 63 mm[Hg] BP fernandes blood pressure, systolic 112 mm[Hg] BP sys pulse rate E&M 117 /min Heart rate temperature E&M 98.4 [degF] Body temperature blood pressure, diastolic 59 mm[Hg] BP fernandes blood pressure, systolic 90 mm[Hg] BP sys pulse rate E&M 131 /min Heart rate temperature E&M 98.4 [degF] Body temperature weight E&M 282.5 [lb_av] Weight Measured blood pressure, diastolic 57 mm[Hg] BP fernandes blood pressure, systolic 131 mm[Hg] BP sys pulse rate E&M 124 /min Heart rate temperature E&M 98.1 [degF] Body temperature weight E&M 283.5 [lb_av] Weight Measured blood pressure, diastolic 59 mm[Hg] BP fernandes blood pressure, systolic 104 mm[Hg] BP sys pulse rate E&M 84 /min Heart rate temperature E&M 98.2 [degF] Body temperature weight E&M 283.5 [lb_av] Weight Measured Diagnostic Results Date Name Value Unit Range Description Lab Report: CBC W/DIFF, B-Type Natriuretic Peptide - Hematology leukocyte count, blood 12.1 10^3/MM^3 10*3/mm3 4.0-10.0 neutrophils as percent of blood leukocytes 77.4 % 42.2-75.2 monocytes as percent of blood leukocytes 6.6 % 1.7-9.3 lymphocytes as percent of blood leukocytes 13.3 % 20.5-51.1 erythrocyte (RBC) count 4.56 10^6/MM^3 10*6/mm3 4.50-6.50 hemoglobin, blood 14.7 g/dL 13.0-17.0 hematocrit, blood 44.8 % 40.0-54.0 mean corpuscular volume, RBC 98 fL 80-100 mean corpuscular hemoglobin, RBC 32.3 pg 27.0-32.0 mean corpuscular hemoglobin concentration, RBC 32.9 G/DL % 32.0- 36.0 red blood cell distribution width 13.3 % 11.0-16.0 platelet count 309 10^3/MM^3 10*3/mm3 150-500 Lab Report: Comp. Metabolic Panel, CBC W/DIFF, B-Type Natriuretic Peptide - Chemistry sodium, serum 140 mmol/L 407-281 7773/02/09 carbon dioxide, venous blood 39.2 mmol/L 21.0-32.0 potassium, serum 4.4 mmol/L 3.5-5.2 chloride, serum 100 mmol/L 98-107 blood glucose 131 mg/dL 65-110 urea nitrogen, blood 27 mg/dL 7-18 creatinine, serum 1.30 mg/dL 0.55-1.30 alanine aminotransferase (SGPT), serum 38 U/L 12-78 aspartate aminotransferase (SGOT), serum 34 U/L 15-37 calcium, serum 8.6 mg/dL 8.5-10.1 bilirubin, serum, total 0.30 mg/dL 0.00-1.00 Encounters Code Encounter Date Provider Facility CPT-05167 Level 4 Est. Patient 18:17:08 CDT Austin Albarado MD [facility] CPT-10740 Level 3 Est. Patient 16:07:19 CDT Simona Galloway APRN [facility] CPT-32614 Level 4 Est. Patient 13:31:03 CDT Austin Albarado MD [facility] CPT-42144 Level 4 Est. Patient 17:54:41 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 Austin Albarado MD [facility] CPT-94424 Level 4 Est. 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 Patient 23:08:56 CDT Austin Albarado MD [facility]-64682 Level 4 Est. Patient 13:27:28 CDT Garcia Stroud MD [facility] CPT-62300 Level 4 Est. Patient 10:51:20 CDT Austin Albarado MD [facility] CPT-13264 Level 4 Est. Patient 20:09:43 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 Austin Albarado MD [facility] CPT-51021 Level 4 Est. Patient 21:00:28 CDT Austin Albarado MD [facility] CPT-01443 Level 4 Est. Patient 10:03:37 CDT Austin Albarado MD [facility] CPT-39145 Level 3 Est. Patient 10:50:28 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 Austin Albarado MD [facility] CPT-15078 Level 4 Est. Patient 21:31:41 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 Austin Albarado MD [facility] CPT-21855 Level 3 Est. Patient 16:22:54 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 Jann Law DO [facility] CPT-11887 Level 3 Est. Patient 11:04:53 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 Tristan Vaughn MD [facility] CPT-16676 Level 4 Est. Patient 09:50:59 CDT Austin Albarado MD [facility] CPT-95418 Level 4 Est. Patient 09:29:00 CDT Austin Albarado MD [facility] CPT-04853 Level 4 Est. Patient 14:23:07 CDT Austin Albarado MD [facility] CPT-04647 Level 4 Est. Patient 14:27:26 CDT Austin Albarado MD [facility] CPT-21843 Level 4 Est. 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 Austin Albarado MD [facility] CPT-11645 Level 3 New Patient 11:28:18 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 Austin Albarado MD [facility] Procedures Code Procedure Name Date Entry Date Standard Description CPT-G0439 Subsequent Annual Wellness Exam 08:13:24 CDT CPT-TCMM Transitional Care Mgmt-Moderate 14:53:36 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 CPT-64697 No Charge Offi Visit 10:19:33 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 CPT-31284 Chest 2V Frontal and Lat - XRAY USE ONLY 15:01:41 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 CPT-12319 First Vx - Ix admin for Medicare patients 16:00:49 CDT CPT-07832 Fluzone High-Dose Intramuscular Suspension 16:00:49 CDT CPT-G0009 Administration of Pneumococcal Vaccine 13:25:27 CDT CPT-60713 Prevnar 13 Intramuscular Suspension 13:25:27 CDT 09/26 CPT-G0438 Initial Annual Wellness Exam 11:28:26 CDT CPT-91931 Chest 2V Frontal and Lat 15:00:00 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 CPT-00421 Breathing Tx 14:49:25 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 CPT-39969 Fluzone High Dose 15:08:41 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 CPT-63628 Immunization Single Admin 15:08:41 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 CPT-72724 Fluzone High Dose 17:31:19 CDT CPT-94195 Administration single or combination vaccine inc oral 17 :31:19 CDT CPT-47191 Venipuncture Draw Fee 11:03:05 CDT CPT-TCMM Transitional Care Mgmt-Moderate 16:32:35 CDT CPT-96383 Chest 2V Frontal and Lat 11:51:09 CDT CPT-G0008 Administration of Influenza Virus Vaccine 15:09:08 CDT CPT-39359 Fluzone High-Dose Intramuscular Suspension 15:09:08 CDT CPT-99222 Administration single or combination vaccine inc oral 17 :07:02 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 CPT-11899 Influenza High Dose age 65+ 17:07:02 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
--- OUTSIDE RECORDS SUMMARY | 2017-02-27 21:45 | XMS REPORT | Clinical Summary ---
Author Author Admin, LEE Organization [facility] Address Unknown Phone Unavailable Allergies, Adverse Reactions, [...] Active Austin Albarado MD Unspecified chest pain U R I ICD-465.9 Inactive Austin Albarado MD 06/13 Bronchitis-Acute ICD-466.0 Inactive Austin Albarado MD Medication List Medication Instructions Start Date Stop Date Generic Name NDC Status Provider Patient Instruction FLUTICASONE PROPIONATE 50 MCG/ACT SUSP 1 to 2 sprays each nostril daily 08/21 FLUTICASONE PROPIONATE 58342461495 Active Simona Galloway APRN Active PREDNISONE 10 MG TAB take 1 tab po qday for severe COPD PREDNISONE 60364019411 Active Austin Albarado MD Active PREDNISONE 20 MG ORAL TABS 3 daily for 3 days than, 2 tabs daily for 3 days than, 2 tabs daily for 3 days than, 1 tab daily for 3 days than 1/2 tab daily for 3 days. PREDNISONE 91114433581 Active Madhavi Fiore Active PREDNISONE 20 MG ORAL TABS 3 TABS PO FOR 3 DAYS,THAN 2 TABS FOR 3 DAYS THAN, 1 TAB FOR 3 DAYS THAN, 1/2 TAB FOR 3 DAYS. PREDNISONE 98713990149 No Longer Active Austin Albarado MD Active LEVAQUIN 500 MG TAB 1 tablet by mouth daily for 10 days. LEVOFLOXACIN 39161618682 No Longer Active Austin Albarado MD Active PREDNISONE 20 MG TAB take 3 tabs daily for 3 days, 2 tabs daily for 3 days, 1 tab daily for 3 days, 1/2 tab daily for 3 days PREDNISONE 25957960320 No Longer Active Simona Galloway APRN Active ZITHROMAX 1 GM ORAL PACK DIRECTED AZITHROMYCIN 51688219774 No Longer Active Simona Galloway APRN Active PREDNISONE 20 MG TAB 2 tabs daily for 4 days, 1 tab daily for 4 days, 1/2 tab daily for 4 days PREDNISONE 99122404556 No Longer Active Austin Albarado MD Active LEVAQUIN 500 MG TAB 1 tablet by mouth daily LEVOFLOXACIN 61532528697 No Longer Active Austin Albarado MD Active PREDNISONE 20 MG TAB take 3 tabs daily for 3 days, 2 tabs daily for 3 days, 1 tab daily for 3 days, 1/2 tab daily for 3 days PREDNISONE 45828871408 No Longer Active Austin Albarado MD Active DOXYCYCLINE HYCLATE 100 MG CAP 1 cap by mouth twice daily DOXYCYCLINE HYCLATE 07945298524 No Longer Active 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 GRINDING MACHINE OPERATOR PORTABLE Active ALBUTEROL SULFATE (2.5 MG/3ML) 0.083% NEBU nebulize 1 vial q 4-6 hours prn shortness of breath ALBUTEROL SULFATE 02077222196 No Longer Active 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 GRINDING MACHINE OPERATOR PORTABLE Active TORSEMIDE 20 MG TABS 1 TAB PO BID TORSEMIDE 94873625245 No Longer Active 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 GRINDING MACHINE OPERATOR PORTABLE Active PREDNISONE 20 MG TAB 2 tabs daily for 3 days, 1 tab daily for 3 days, 1/2 tab daily for 2 days PREDNISONE 25427068318 No Longer Active Austin Albarado MD Active LEVOFLOXACIN 500 MG ORAL TABS take 1 tab po qday LEVOFLOXACIN 68740831044 No Longer Active Austin Albarado MD Active PREDNISONE 20 MG TAB 2 tablets today, then 1 tablet by mouth days 2-5 PREDNISONE 01421709444 No Longer Active Austin Albarado MD Active AZITHROMYCIN 500 MG SOLR 1 po q day AZITHROMYCIN 34859818529 No Longer Active Asutin Albarado MD Active KEFLEX 500 MG CAP 1 po TID x 7 days CEPHALEXIN 29528073487 No Longer Active Tristan Vaughn MD Active EQL VISION FORMULA TABS 1 TAB PO DAILY MULTIPLE VITAMINS-MINERALS 50690044254 No Longer Active Tristan Vaughn MD Active CHANTIX STARTING MONTH ELVIS 0.5 MG X 11 & 1 MG X 42 TABS 0.5mg daily for 3 days , then 0.5mg BID for 4 days, then 1mg BID VARENICLINE TARTRATE 82404295887 No Longer Active Tristan Vaughn MD Active LEVOTHYROXINE SODIUM 200 MCG TABS 1 TAB PO DAILY LEVOTHYROXINE SODIUM 79411046303 No Longer Active Tristan Vaughn MD Active LIOTHYRONINE SODIUM 50 MCG TABS take 1 tab po qday for hypothyroidism LIOTHYRONINE SODIUM 35193111126 No Longer Active Austin Albarado MD Active SYNTHROID 0.025 MG TAB 1 tablet by mouth daily LEVOTHYROXINE SODIUM 69656028761 No Longer Active Austin Albarado MD Active ARMOUR THYROID 120 MG TABS take 1 tab po qday for hypothyroidism THYROID 37857337361 Active Austin Albarado MD Active FLONASE 50 MCG/ACT SUSP 1 spray each nostril am and hs FLUTICASONE PROPIONATE Active Simona Galloway APRN Active ZITHROMAX 1 GM PACK DIRECTED AZITHROMYCIN 00534304644 No Longer Active Austin Albarado MD Active PREDNISONE 20 MG TAB 2 tabs daily for 3 days, 1 tab daily for 3 days, 1/2 tab daily for 2 days PREDNISONE 18753114901 No Longer Active Austin Albarado MD Active ZITHROMAX 250 MG TAB 2 po today, then 1 po q days 2-5 AZITHROMYCIN 66743720330 No Longer Active Austin Albarado MD Active NYSTATIN-TRIAMCINOLONE 130620-3.1 UNIT/GM-% OINT Apply to affected area TID NYSTATIN-TRIAMCINOLONE 38712720068 Active Austin Albarado MD Active IPRATROPIUM-ALBUTEROL 0.5-2.5 (3) MG/3ML SOLN 1 VIAL NEB Q 6 HRS PRN IPRATROPIUM-ALBUTEROL 35694523827 Active Austin Albarado MD Active PROAIR HFA 108 (90 BASE) MCG/ACT AERS take 1-2 puffs q4hrs prn cough/ SOB ALBUTEROL SULFATE 58704825624 Active Austin Albarado MD Active ADVAIR DISKUS 500-50 MCG/DOSE AEPB ONE INH BID FLUTICASONE- SALMETEROL 40739660773 Active Austin Albarado MD Active ZITHROMAX 1 GM PACK DIRECTED ZITHROMAX 1 GM PACK 983171 AZITHROMYCIN Inactive SYNTHROID 0.025 MG TAB 1 tablet by mouth daily SYNTHROID 0.025 MG TAB 410609 LEVOTHYROXINE SODIUM Inactive LIOTHYRONINE SODIUM 50 MCG TABS take 1 tab po qday for hypothyroidism LIOTHYRONINE SODIUM 50 MCG TABS 559585 LIOTHYRONINE SODIUM Inactive LEVOTHYROXINE SODIUM 200 MCG TABS 1 TAB PO DAILY LEVOTHYROXINE SODIUM 200 MCG TABS 570283 LEVOTHYROXINE SODIUM Inactive CHANTIX STARTING MONTH ELVIS [...] po q day AZITHROMYCIN 500 MG SOLR 18246358753 AZITHROMYCIN Inactive PREDNISONE 20 MG TAB 2 tablets today, then 1 tablet by mouth days 2-5 PREDNISONE 20 MG TAB 565140 PREDNISONE Inactive TORSEMIDE 20 MG TABS 1 TAB PO BID TORSEMIDE 20 MG TABS 879308 TORSEMIDE Inactive ALBUTEROL SULFATE (2.5 MG/3ML) 0.083% NEBU nebulize 1 vial q 4-6 hours prn shortness of breath ALBUTEROL SULFATE (2.5 MG/3ML) 0.083% NEBU 285152 ALBUTEROL SULFATE Inactive LEVAQUIN 500 MG TAB 1 tablet by mouth daily LEVAQUIN 500 MG TAB 850003 LEVOFLOXACIN Inactive PREDNISONE 20 MG TAB 2 tabs daily for 4 days, 1 tab daily for 4 days, 1/2 tab daily for 4 days PREDNISONE 20 MG TAB 158811 PREDNISONE Inactive ZITHROMAX 1 GM ORAL PACK DIRECTED ZITHROMAX 1 GM ORAL PACK 976618 AZITHROMYCIN Inactive LEVAQUIN 500 MG TAB 1 tablet by mouth daily for 10 days. LEVAQUIN 500 MG TAB 020110 LEVOFLOXACIN Inactive PREDNISONE 20 MG ORAL TABS 3 TABS PO FOR 3 DAYS,THAN 2 TABS FOR 3 DAYS THAN, 1 TAB FOR 3 DAYS THAN, 1/2 TAB FOR 3 DAYS. PREDNISONE 20 MG ORAL TABS 372656 PREDNISONE Inactive ZITHROMAX 250 MG TAB 2 po today, then 1 po q days 2-5 ZITHROMAX 250 MG TAB 0443993 AZITHROMYCIN Inactive PREDNISONE 20 MG TAB 2 tabs daily for 3 days, 1 tab daily for 3 days, 1/2 tab daily for 2 days PREDNISONE 20 MG TAB 801565 PREDNISONE Inactive KEFLEX 500 MG CAP 1 po TID x 7 days KEFLEX 500 MG CAP 960219 CEPHALEXIN Inactive LEVOFLOXACIN 500 MG ORAL TABS take 1 tab po qday LEVOFLOXACIN 500 MG ORAL TABS 261042 LEVOFLOXACIN Inactive PREDNISONE 20 MG TAB 2 tabs daily for 3 days, 1 tab daily for 3 days, 1/2 tab daily for 2 days PREDNISONE 20 MG TAB 880062 PREDNISONE Inactive DOXYCYCLINE HYCLATE 100 MG CAP 1 cap by mouth twice daily DOXYCYCLINE HYCLATE 100 MG CAP 1998788 DOXYCYCLINE HYCLATE Inactive PREDNISONE 20 MG TAB take 3 tabs daily for 3 days, 2 tabs daily for 3 days, 1 tab daily for 3 days, 1/2 tab daily for 3 days PREDNISONE 20 MG TAB 300901 PREDNISONE Inactive PREDNISONE 20 MG TAB take 3 tabs daily for 3 days, 2 tabs daily for 3 days, 1 tab daily for 3 days, 1/2 tab daily for 3 days PREDNISONE 20 MG TAB 646172 PREDNISONE Inactive Advance Directives Directive Description Start Date PERMISSION TO SHARE Immunizations Vaccine Administration Date Value Standard Description pneumococcal immunization administered Pneumovax 23 [[id number]] pneumococcal polysaccharide vaccine, 23 valent Vital Signs Date Name Value Unit Range Description blood pressure, diastolic - 8462-4 56 mm[Hg] BP fernandes blood pressure, systolic - 8480-6 131 mm[Hg] BP sys pulse rate E&M - 8867-4 112 /min Heart rate temperature E&M 97.3 [degF] Body temperature weight E&M - 3141-9 250.5 [lb_av] Weight Measured blood pressure, diastolic - 8462-4 72 mm[Hg] BP fernandes blood pressure, systolic - 8480-6 112 mm[Hg] BP sys pulse rate E&M - 8867-4 129 /min Heart rate temperature E&M 98.7 [degF] Body temperature blood pressure, diastolic - 8462-4 61 mm[Hg] BP fernandes blood pressure, systolic - 8480-6 120 mm[Hg] BP sys pulse rate E&M - 8867-4 111 /min Heart rate temperature E&M 96.4 [degF] Body temperature blood pressure, diastolic - 8462-4 68 mm[Hg] BP fernandes blood pressure, systolic - 8480-6 107 mm[Hg] BP sys pulse rate E&M - 8867-4 111 /min Heart rate temperature E&M 97.6 [degF] Body temperature weight E&M - 3141-9 243 [lb_av] Weight Measured blood pressure, diastolic - 8462-4 72 mm[Hg] BP fernandes blood pressure, systolic - 8480-6 127 mm[Hg] BP sys pulse rate E&M - 8867-4 110 /min Heart rate temperature E&M 97.5 [degF] Body temperature weight E&M - 3141-9 239 [lb_av] Weight Measured Diagnostic Results Date Name Value Unit Range Description Lab Report: Lipid Panel, Prostatic Specific Ag, Free Thyroxine (L), Thyr ... - Chemistry cholesterol, serum 136 mg/dL 594-438 8927/10/06 triglyceride, serum, fasting 30 mg/dL 30-200 HDL cholesterol, serum 57 mg/dL 32-96 LDL cholesterol, serum 73 mg/dL 0-130 prostate specific antigen 1.45 ng/mL 0.00-4.00 thyroxine, serum, free 0.80 ng/dL 0.76-1.46 TSH 14.03 m[iU]/mL 0.36-3.74 Lab Report: Thyroid Stimulating Hormone (L), Comp. Metabolic Panel, CBC, ... - Chemistry TSH 43.52 m[iU]/mL 0.36-3.74 sodium, serum 140 mmol/L 413-038 8785/04/06 carbon dioxide, venous blood 36.3 mmol/L 21.0-32.0 potassium, serum 4.9 mmol/L 3.5-5.2 chloride, serum 100 mmol/L 98-107 blood glucose 62 mg/dL 65-110 urea nitrogen, blood 24 mg/dL 7-18 creatinine, serum 1.09 mg/dL 0.55-1.30 alanine aminotransferase (SGPT), serum 44 U/L 12-78 aspartate aminotransferase (SGOT), serum 25 U/L 15-37 calcium, serum 8.7 mg/dL 8.5-10.1 bilirubin, serum, total 0.50 mg/dL 0.00-1.00 cholesterol, serum 189 mg/dL 131-759 9912/04/06 triglyceride, serum, fasting 117 mg/dL 30-200 HDL cholesterol, serum 70 mg/dL 32-96 LDL cholesterol, serum 96 mg/dL 0-130 Lab Report: Thyroid Stimulating Hormone (L), Comp. Metabolic Panel, CBC, ... - Hematology leukocyte count, blood 15.2 10^3/MM^3 10*3/mm3 4.6-10.2 erythrocyte (RBC) count 4.98 10^6/MM^3 10*6/mm3 4.69-6.13 hemoglobin, blood 16.5 g/dL 13.5-17.5 hematocrit, blood 48.7 % 41.0-53.0 mean corpuscular volume, RBC 98 fL 80-97 mean corpuscular hemoglobin, RBC 33.0 pg 27.0-31.2 mean corpuscular hemoglobin concentration, RBC 33.8 G/DL % 31.8- 35.4 red blood cell distribution width 14.9 % 11.6-14.8 platelet count 360 10^3/MM^3 10*3/mm3 142-424 Encounters Code Encounter Date Provider Facility CPT-23742 Level 4 Est. Patient 10:51:20 CDT Austin Albarado MD [facility] CPT-76016 Level 4 Est. 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 Patient 21:00:28 CDT Austin Albarado MD [facility] CPT-50346 Level 4 Est. Patient 10:03:37 CDT Austin Albarado MD [facility] CPT-78802 Level 3 Est. Patient 10:50:28 HYDRAULIC AND PLUMBING INSTALLER Austin Albarado MD [facility] CPT-03535 Level 4 Est. Patient 21:31:41 HYDRAULIC AND PLUMBING INSTALLER Austin Albarado MD [facility] CPT-33935 Level 3 Est. Patient 16:22:54 HYDRAULIC AND PLUMBING INSTALLER Jann Law DO [facility] CPT-88876 Level 3 Est. Patient 11:04:53 HYDRAULIC AND PLUMBING INSTALLER Tristan Vaughn MD [facility] CPT-47217 Level 4 Est. Patient 09:50:59 CDT Austin Albarado MD [facility] CPT-19671 Level 4 Est. Patient 09:29:00 CDT Austin Albarado MD [facility] CPT-47999 Level 4 Est. Patient 14:23:07 CDT Austin Albarado MD [facility] CPT-64416 Level 4 Est. Patient 14:27:26 CDT Austin Albarado MD [facility] CPT-53379 Level 4 Est. Patient 12:51:43 HYDRAULIC AND PLUMBING INSTALLER Austin Albarado MD [facility] CPT-34573 Level 3 New Patient 14:17:38 HYDRAULIC AND PLUMBING INSTALLER Austin Albarado MD [facility] CPT-96482 Level 3 New Patient 11:28:18 HYDRAULIC AND PLUMBING INSTALLER Austin Albarado MD [facility] Procedures Code Procedure Name Date Entry Date Standard Description CPT-33401 Chest 2V Frontal and Lat 15:00:00 HYDRA[employer]IC AND [employer]UMBING INSTALLER CPT-03400 Breathing Tx 14:49:25 [employer]IC AND [employer]UMBING INSTALLER CPT-02722 Fluzone High Dose 15:08:41 HYDRAULIC AND [employer]UMBING INSTALLER CPT-65104 Immunization Single Admin 15:08:41 HYDRAULIC AND [employer]UMBING INSTALLER CPT-57153 Fluzone High Dose 17:31:19 CDT CPT-72735 Administration single or combination vaccine inc oral 17 :31:19 CDT CPT-39129 Venipuncture Draw Fee 11:03:05 CDT CPT-TCMM Transitional Care Mgmt-Moderate 16:32:35 CDT CPT-98118 Chest 2V Frontal and Lat 11:51:09 CDT CPT-G0008 Administration of Influenza Virus Vaccine 15:09:08 CDT CPT-92461 Fluzone High-Dose Intramuscular Suspension 15:09:08 CDT CPT-40949 Administration single or combination vaccine inc oral 17 :07:02 HYDRAULIC AND PLUMBING INSTALLER CPT-87403 Influenza High Dose age 65+ 17:07:02 HYDRAULIC AND PLUMBING INSTALLER
--- OUTSIDE RECORDS SUMMARY | 2017-02-27 21:45 | XMS REPORT | Clinical Summary ---
Author Author Admin, DILLONE Organization [employer] Address Unknown Phone Unavailable Allergies, Adverse Reactions, [...] Coronary atherosclerosis of unspecified type of vessel, [place] or graft Peripheral edema 782.3 Active Austin Albarado MD Edema U R I ICD-465.9 Inactive Austin Albarado MD 06/13 Bronchitis-Acute ICD-466.0 Inactive Austin Albarado MD Medication List Medication Instructions Start Date Stop Date Generic Name NDC Status Provider Patient Instruction FUROSEMIDE 20 MG TABS take 1 tab po BID for swelling FUROSEMIDE 09101572790 Active Austin Albarado MD Active LEVAQUIN 500 MG TAB 1 tablet by mouth daily LEVOFLOXACIN 30473115659 Active Mica Sneed Active PREDNISONE 20 MG ORAL TABS 3 tabs po for 3 days than,2 tabs po for 3 days,1 tab po for 3 days, 1/2 tab po for 3 days. PREDNISONE 07257865276 Active Madhavi Fiore Active AMOXICILLIN 500 MG ORAL TABS Take one by mouth 3 times daily, morning, afternoon and evening.] AMOXICILLIN 78028330766 No Longer Active Garcia Stroud MD Active PREDNISONE 20 MG ORAL TABS 3 daily for 3 days than, 2 tabs daily for 3 days than, 2 tabs daily for 3 days than, 1 tab daily for 3 days than 1/2 tab daily for 3 days. PREDNISONE 53058494896 No Longer Active Tracie Arrington APRN Active FLUTICASONE PROPIONATE 50 MCG/ACT SUSP 1 to 2 sprays each nostril daily 08/21 FLUTICASONE PROPIONATE 55052175474 Active Simona Galloway APRN Active PREDNISONE 10 MG TAB take 1 tab po qday for severe COPD PREDNISONE 31482194975 Active Austin Albarado MD Active PREDNISONE 20 MG ORAL TABS 3 TABS PO FOR 3 DAYS,THAN 2 TABS FOR 3 DAYS THAN, 1 TAB FOR 3 DAYS THAN, 1/2 TAB FOR 3 DAYS. PREDNISONE 50007037698 No Longer Active Austin Albarado MD Active LEVAQUIN 500 MG TAB 1 tablet by mouth daily for 10 days. LEVOFLOXACIN 10997203200 No Longer Active Austin Albarado MD Active PREDNISONE 20 MG TAB take 3 tabs daily for 3 days, 2 tabs daily for 3 days, 1 tab daily for 3 days, 1/2 tab daily for 3 days PREDNISONE 76964991510 No Longer Active Simona Galloway APRN Active ZITHROMAX 1 GM ORAL PACK DIRECTED AZITHROMYCIN 20814386616 No Longer Active Simona Galloway APRN Active PREDNISONE 20 MG TAB 2 tabs daily for 4 days, 1 tab daily for 4 days, 1/2 tab daily for 4 days PREDNISONE 57429264566 No Longer Active Austin Albarado MD Active LEVAQUIN 500 MG TAB 1 tablet by mouth daily LEVOFLOXACIN 58978277738 No Longer Active Austin Albarado MD Active PREDNISONE 20 MG TAB take 3 tabs daily for 3 days, 2 tabs daily for 3 days, 1 tab daily for 3 days, 1/2 tab daily for 3 days PREDNISONE 07554269287 No Longer Active Austin Albarado MD Active DOXYCYCLINE HYCLATE 100 MG CAP 1 cap by mouth twice daily DOXYCYCLINE HYCLATE 80508956103 No Longer Active Esperanza Modi APRN Active ALBUTEROL SULFATE (2.5 MG/3ML) 0.083% NEBU nebulize 1 vial q 4-6 hours prn shortness of breath ALBUTEROL SULFATE 80640705104 No Longer Active Esperanza Modi APRN Active TORSEMIDE 20 MG TABS 1 TAB PO BID TORSEMIDE 25242449720 No Longer Active Jillaftab Modi [employer] Active PREDNISONE 20 MG TAB 2 tabs daily for 3 days, 1 tab daily for 3 days, 1/2 tab daily for 2 days PREDNISONE 62299205545 No Longer Active Austin Albarado MD Active LEVOFLOXACIN 500 MG ORAL TABS take 1 tab po qday LEVOFLOXACIN 22148291202 No Longer Active Austin Albarado MD Active PREDNISONE 20 MG TAB 2 tablets today, then 1 tablet by mouth days 2-5 PREDNISONE 08700802756 No Longer Active Austin Albarado MD Active AZITHROMYCIN 500 MG SOLR 1 po q day AZITHROMYCIN 79894066203 No Longer Active Austin Albarado MD Active KEFLEX 500 MG CAP 1 po TID x 7 days CEPHALEXIN 26174618408 No Longer Active Tristan Vaughn MD Active EQL VISION FORMULA TABS 1 TAB PO DAILY MULTIPLE VITAMINS-MINERALS 70987586837 No Longer Active Tristan Vaughn MD Active CHANTIX STARTING MONTH ELVIS 0.5 MG X 11 & 1 MG X 42 TABS 0.5mg daily for 3 days , then 0.5mg BID for 4 days, then 1mg BID VARENICLINE TARTRATE 46245686942 No Longer Active Tristan Vaughn MD Active LEVOTHYROXINE SODIUM 200 MCG TABS 1 TAB PO DAILY LEVOTHYROXINE SODIUM 76930338191 No Longer Active Tristan Vaughn MD Active LIOTHYRONINE SODIUM 50 MCG TABS take 1 tab po qday for hypothyroidism LIOTHYRONINE SODIUM 24224694032 No Longer Active Austin Albarado MD Active SYNTHROID 0.025 MG TAB 1 tablet by mouth daily LEVOTHYROXINE SODIUM 68791791545 No Longer Active Austin Albarado MD Active ARMOUR THYROID 120 MG TABS take 1 tab po qday for hypothyroidism THYROID 61865960973 Active Austin Albarado MD Active FLONASE 50 MCG/ACT SUSP 1 spray each nostril am and hs FLUTICASONE PROPIONATE Active Simona Galloway APRN Active ZITHROMAX 1 GM PACK DIRECTED AZITHROMYCIN 82864965470 No Longer Active Austin Albarado MD Active PREDNISONE 20 MG TAB 2 tabs daily for 3 days, 1 tab daily for 3 days, 1/2 tab daily for 2 days PREDNISONE 51233849965 No Longer Active Austin Albarado MD Active ZITHROMAX 250 MG TAB 2 po today, then 1 po q days 2-5 AZITHROMYCIN 56283843206 No Longer Active Austin Albarado MD Active NYSTATIN-TRIAMCINOLONE 848412-0.1 UNIT/GM-% OINT Apply to affected area TID NYSTATIN-TRIAMCINOLONE 75727992559 Active Austin Albarado MD Active IPRATROPIUM-ALBUTEROL 0.5-2.5 (3) MG/3ML SOLN 1 VIAL NEB Q 6 HRS PRN IPRATROPIUM-ALBUTEROL 76624927214 Active Simona Galloway APRN Active PROAIR HFA 108 (90 BASE) MCG/ACT AERS take 1-2 puffs q4hrs prn cough/ SOB ALBUTEROL SULFATE 26403283090 Active Austin Albarado MD Active ADVAIR DISKUS 500-50 MCG/DOSE AEPB ONE INH BID FLUTICASONE- SALMETEROL 50341658517 Active Austin Albarado MD Active ZITHROMAX 1 GM PACK DIRECTED ZITHROMAX 1 GM PACK 781399 AZITHROMYCIN Inactive SYNTHROID 0.025 MG TAB 1 tablet by mouth daily SYNTHROID 0.025 MG TAB 974177 LEVOTHYROXINE SODIUM Inactive LIOTHYRONINE SODIUM 50 MCG TABS take 1 tab po qday for hypothyroidism LIOTHYRONINE SODIUM 50 MCG TABS 652996 LIOTHYRONINE SODIUM Inactive LEVOTHYROXINE SODIUM 200 MCG TABS 1 TAB PO DAILY LEVOTHYROXINE SODIUM 200 MCG TABS 715216 LEVOTHYROXINE SODIUM Inactive CHANTIX STARTING MONTH ELVIS [...] po q day AZITHROMYCIN 500 MG SOLR 56479290151 AZITHROMYCIN Inactive PREDNISONE 20 MG TAB 2 tablets today, then 1 tablet by mouth days 2-5 PREDNISONE 20 MG TAB 665979 PREDNISONE Inactive TORSEMIDE 20 MG TABS 1 TAB PO BID TORSEMIDE 20 MG TABS 035091 TORSEMIDE Inactive ALBUTEROL SULFATE (2.5 MG/3ML) 0.083% NEBU nebulize 1 vial q 4-6 hours prn shortness of breath ALBUTEROL SULFATE (2.5 MG/3ML) 0.083% NEBU 004277 ALBUTEROL SULFATE Inactive LEVAQUIN 500 MG TAB 1 tablet by mouth daily LEVAQUIN 500 MG TAB 246239 LEVOFLOXACIN Inactive PREDNISONE 20 MG TAB 2 tabs daily for 4 days, 1 tab daily for 4 days, 1/2 tab daily for 4 days PREDNISONE 20 MG TAB 685404 PREDNISONE Inactive ZITHROMAX 1 GM ORAL PACK DIRECTED ZITHROMAX 1 GM ORAL PACK 966702 AZITHROMYCIN Inactive LEVAQUIN 500 MG TAB 1 tablet by mouth daily for 10 days. LEVAQUIN 500 MG TAB 128192 LEVOFLOXACIN Inactive PREDNISONE 20 MG ORAL TABS 3 TABS PO FOR 3 DAYS,THAN 2 TABS FOR 3 DAYS THAN, 1 TAB FOR 3 DAYS THAN, 1/2 TAB FOR 3 DAYS. PREDNISONE 20 MG ORAL TABS 465939 PREDNISONE Inactive PREDNISONE 20 MG ORAL TABS 3 daily for 3 days than, 2 tabs daily for 3 days than, 2 tabs daily for 3 days than, 1 tab daily for 3 days than 1/2 tab daily for 3 days. PREDNISONE 20 MG ORAL TABS 990731 PREDNISONE Inactive AMOXICILLIN 500 MG ORAL TABS Take one by mouth 3 times daily, morning, afternoon and evening.] AMOXICILLIN 500 MG ORAL TABS 531970 AMOXICILLIN Inactive ZITHROMAX 250 MG TAB 2 po today, then 1 po q days 2-5 ZITHROMAX 250 MG TAB 6185566 AZITHROMYCIN Inactive PREDNISONE 20 MG TAB 2 tabs daily for 3 days, 1 tab daily for 3 days, 1/2 tab daily for 2 days PREDNISONE 20 MG TAB 940908 PREDNISONE Inactive KEFLEX 500 MG CAP 1 po TID x 7 days KEFLEX 500 MG CAP 938008 CEPHALEXIN Inactive LEVOFLOXACIN 500 MG ORAL TABS take 1 tab po qday LEVOFLOXACIN 500 MG ORAL TABS 599081 LEVOFLOXACIN Inactive PREDNISONE 20 MG TAB 2 tabs daily for 3 days, 1 tab daily for 3 days, 1/2 tab daily for 2 days PREDNISONE 20 MG TAB 995096 PREDNISONE Inactive DOXYCYCLINE HYCLATE 100 MG CAP 1 cap by mouth twice daily DOXYCYCLINE HYCLATE 100 MG CAP 2607076 DOXYCYCLINE HYCLATE Inactive PREDNISONE 20 MG TAB take 3 tabs daily for 3 days, 2 tabs daily for 3 days, 1 tab daily for 3 days, 1/2 tab daily for 3 days PREDNISONE 20 MG TAB 229468 PREDNISONE Inactive PREDNISONE 20 MG TAB take 3 tabs daily for 3 days, 2 tabs daily for 3 days, 1 tab daily for 3 days, 1/2 tab daily for 3 days PREDNISONE 20 MG TAB 680368 PREDNISONE Inactive Advance Directives Directive Description Start Date PERMISSION TO SHARE DISCUSSED WITH PATIENT -- NO DECISION MADE Immunizations Vaccine Administration Date Value Standard Description pneumococcal immunization administered Pneumovax 23 [CVX33] pneumococcal polysaccharide vaccine, 23 valent Vital Signs Date Name Value Unit Range Description blood pressure, diastolic - 8462-4 59 mm[Hg] BP fernandes blood pressure, systolic - 8480-6 104 mm[Hg] BP sys pulse rate E&M - 8867-4 84 /min Heart rate temperature E&M 98.2 [degF] Body temperature weight E&M - 3141-9 283.5 [lb_av] Weight Measured blood pressure, diastolic - 8462-4 59 mm[Hg] BP fernandes blood pressure, systolic - 8480-6 107 mm[Hg] BP sys pulse rate E&M - 8867-4 119 /min Heart rate temperature E&M 98.3 [degF] Body temperature weight E&M - 3141-9 264.5 [lb_av] Weight Measured blood pressure, diastolic - 8462-4 72 mm[Hg] BP fernandes blood pressure, systolic - 8480-6 137 mm[Hg] BP sys pulse rate E&M - 8867-4 115 /min Heart rate temperature E&M 94.2 [degF] Body temperature blood pressure, diastolic - 8462-4 72 mm[Hg] BP fernandes blood pressure, systolic - 8480-6 129 mm[Hg] BP sys pulse rate E&M - 8867-4 114 /min Heart rate blood pressure, diastolic - 8462-4 56 mm[Hg] [...] rate temperature E&M 96.4 [degF] Body temperature Diagnostic Results Date Name Value Unit Range Description Lab Report: Thyroid Stimulating Hormone (L), Comp. Metabolic Panel, CBC, ... - Chemistry TSH 43.52 m[iU]/mL 0.36-3.74 sodium, serum 140 mmol/L 061-312 4541/04/06 carbon dioxide, venous blood 36.3 mmol/L 21.0-32.0 potassium, serum 4.9 mmol/L 3.5-5.2 chloride, serum 100 mmol/L 98-107 blood glucose 62 mg/dL 65-110 urea nitrogen, blood 24 mg/dL 7-18 creatinine, serum 1.09 mg/dL 0.55-1.30 alanine aminotransferase (SGPT), serum 44 U/L 12-78 aspartate aminotransferase (SGOT), serum 25 U/L 15-37 calcium, serum 8.7 mg/dL 8.5-10.1 bilirubin, serum, total 0.50 mg/dL 0.00-1.00 cholesterol, serum 189 mg/dL 758-769 5434/04/06 triglyceride, serum, fasting 117 mg/dL 30-200 HDL [...] [phone] Encounters Code Encounter Date Provider Facility CPT-01889 Level 4 Est. Patient 16:11:14 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 Austin Albarado MD [facility] CPT-57722 Level 4 Est. Patient 23:08:56 CDT Austin Albarado MD [facility] CPT-81419 Level 4 Est. Patient 13:27:28 CDT Garcia Stroud MD [facility] CPT-85133 Level 4 Est. Patient 10:51:20 CDT Austin Albarado MD [facility] CPT-05051 Level 4 Est. Patient 20:09:43 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 Austin Albarado MD [facility] CPT-41507 Level 4 Est. Patient 21:00:28 CDT Austin Albarado MD [facility] CPT-20946 Level 4 Est. Patient 10:03:37 CDT Austin Albarado MD [facility] CPT-98433 Level 3 Est. Patient 10:50:28 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 Austin Albarado MD [facility] CPT-26246 Level 4 Est. Patient 21:31:41 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 Austin Albarado MD [facility] CPT-08196 Level 3 Est. Patient 16:22:54 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 Jann Law DO [facility] CPT-76497 Level 3 Est. Patient 11:04:53 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 Tristan Vaughn MD [facility] CPT-95799 Level 4 Est. Patient 09:50:59 CDT Austin Albarado MD [facility] CPT-20198 Level 4 Est. Patient 09:29:00 CDT Austin Albarado MD [facility] CPT-27594 Level 4 Est. Patient 14:23:07 CDT Austin Albarado MD [facility] CPT-15749 Level 4 Est. Patient 14:27:26 CDT Austin Albarado MD [facility] CPT-58842 Level 4 Est. Patient 12:51:43 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 Austin Albarado MD [facility] CPT-09051 Level 3 New Patient 14:17:38 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 Austin Albarado MD [facility] CPT-34372 Level 3 New Patient 11:28:18 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 Austin Albarado MD [facility] Procedures Code Procedure Name Date Entry Date Standard Description CPT-28233 First Vx - Ix admin for Medicare patients 16:00:49 CDT CPT-17459 Fluzone High-Dose Intramuscular Suspension 16:00:49 CDT CPT-G0009 Administration of Pneumococcal Vaccine 13:25:27 CDT CPT-14346 Prevnar 13 Intramuscular Suspension 13:25:27 CDT 09/26 CPT-G0438 Initial Annual Wellness Exam 11:28:26 CDT CPT-05716 Chest 2V Frontal and Lat 15:00:00 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 CPT-95605 Breathing Tx 14:49:25 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 CPT-64592 Fluzone High Dose 15:08:41 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 CPT-72817 Immunization Single Admin 15:08:41 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 CPT-44070 Fluzone High Dose 17:31:19 CDT CPT-60843 Administration single or combination vaccine inc oral 17 :31:19 CDT CPT-05575 Venipuncture Draw Fee 11:03:05 CDT CPT-TCMM Transitional Care Mgmt-Moderate 16:32:35 CDT CPT-51783 Chest 2V Frontal and Lat 11:51:09 CDT CPT-G0008 Administration of Influenza Virus Vaccine 15:09:08 CDT CPT-22108 Fluzone High-Dose Intramuscular Suspension 15:09:08 CDT CPT-83754 Administration single or combination vaccine inc oral 17 :07:02 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 CPT-85508 Influenza High Dose age 65+ 17:07:02 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
--- OUTSIDE RECORDS SUMMARY | 2017-02-27 21:46 | XMS REPORT | Clinical Summary ---
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 Tracie Arrington [employer] Chronic airway obstruction, not elsewhere classified Family history of myocardial infarction V17.3 Active Tracie Arrington [employer]ATOR Family history of ischemic heart disease CAD 414.00 Active Tracie Arrington [employer]ATOR Coronary atherosclerosis of unspecified type of vessel, jackson or graft Peripheral edema 782.3 Active Austin Albarado MD Edema Shortness of breath 786.05 Active Simona Galloway APRN Shortness of breath Hypotension 458.9 Active Simona Galloway APRN Hypotension, unspecified Shingles 053.9 Active Simona Galloway APRN Herpes zoster without mention of complication Arthritis, generalized 716.99 Active Austin Albarado MD Arthropathy unspecified, involving multiple sites U R I ICD-465.9 Inactive Austin Albarado MD 06/13 Bronchitis-Acute ICD-466.0 Inactive Austin Albarado MD Medication List Medication Instructions Start Date Stop Date Generic Name NDC Status Provider Patient Instruction PROAIR HFA 108 (90 BASE) MCG/ACT AERS take 1-2 puffs q 4-6 hrs prn cough/ SOB ALBUTEROL SULFATE 46650111610 Active Nella José LPN Active IPRATROPIUM-ALBUTEROL 0.5-2.5 (3) MG/3ML SOLN 1 VIAL NEB Q 4-6 HRS PRN 04/18 IPRATROPIUM-ALBUTEROL 57839981083 Active Nella José LPN Active ATIVAN 0.5 MG TAB 1 po QD PRN Anxiety LORAZEPAM 97159474337 Active Nella José LPN Active PREDNISONE 20 MG ORAL TABS 3 tabs po for 3 days than,2 tabs po for 3 days,1 tab po for 3 days, 1/2 tab po for 3 days. PREDNISONE 19833539184 No Longer Active Simona Galloway APRN Active LEVAQUIN 500 MG TAB 1 tablet by mouth daily LEVOFLOXACIN 66778140404 No Longer Active Simona Galloway APRN Active PREDNISONE 20 MG TAB take 3 tabs daily for 3 days, 2 tabs daily for 3 days, 1 tab daily for 3 days, 1/2 tab daily for 3 days PREDNISONE 14885158959 No Longer Active Austin Albarado MD Active LEVAQUIN 500 MG TAB 1 tablet by mouth daily LEVOFLOXACIN 39452138254 No Longer Active Madhavi Fiore Active FUROSEMIDE 20 MG TABS take 1 tab po BID for swelling FUROSEMIDE 76321995681 Active Austin Albarado MD Active AMOXICILLIN 500 MG ORAL TABS Take one by mouth 3 times daily, morning, afternoon and evening.] AMOXICILLIN 18281229423 No Longer Active Garcia Stroud MD Active PREDNISONE 20 MG ORAL TABS 3 daily for 3 days than, 2 tabs daily for 3 days than, 2 tabs daily for 3 days than, 1 tab daily for 3 days than 1/2 tab daily for 3 days. PREDNISONE 59561207048 No Longer Active Tracie Arrington APRN Active FLUTICASONE PROPIONATE 50 MCG/ACT SUSP 1 to 2 sprays each nostril daily 08/21 FLUTICASONE PROPIONATE 38877301946 Active Simona Galloway APRN Active PREDNISONE 10 MG TAB take 1 tab po qday for severe COPD PREDNISONE 33652161778 Active Austin Albarado MD Active PREDNISONE 20 MG ORAL TABS 3 TABS PO FOR 3 DAYS,THAN 2 TABS FOR 3 DAYS THAN, 1 TAB FOR 3 DAYS THAN, 1/2 TAB FOR 3 DAYS. PREDNISONE 71791773616 No Longer Active Austin Albarado MD Active LEVAQUIN 500 MG TAB 1 tablet by mouth daily for 10 days. LEVOFLOXACIN 29667858879 No Longer Active Austin Albarado MD Active PREDNISONE 20 MG TAB take 3 tabs daily for 3 days, 2 tabs daily for 3 days, 1 tab daily for 3 days, 1/2 tab daily for 3 days PREDNISONE 86699162693 No Longer Active Simona Galloway APRN Active ZITHROMAX 1 GM ORAL PACK DIRECTED AZITHROMYCIN 12790599515 No Longer Active Simona Galloway APRN Active PREDNISONE 20 MG TAB 2 tabs daily for 4 days, 1 tab daily for 4 days, 1/2 tab daily for 4 days PREDNISONE 18868228530 No Longer Active Austin Albarado MD Active LEVAQUIN 500 MG TAB 1 tablet by mouth daily LEVOFLOXACIN 22664869181 No Longer Active Austin Albarado MD Active PREDNISONE 20 MG TAB take 3 tabs daily for 3 days, 2 tabs daily for 3 days, 1 tab daily for 3 days, 1/2 tab daily for 3 days PREDNISONE 63001364009 No Longer Active Austin Albarado MD Active DOXYCYCLINE HYCLATE 100 MG CAP 1 cap by mouth twice daily DOXYCYCLINE HYCLATE 75004162825 No Longer Active Jillina Fraganga BOWEN Active ALBUTEROL SULFATE (2.5 MG/3ML) 0.083% NEBU nebulize 1 vial q 4-6 hours prn shortness of breath ALBUTEROL SULFATE 49797148076 No Longer Active Jillina Frashonnal [employer]ATOR Active TORSEMIDE 20 MG TABS 1 TAB PO BID TORSEMIDE 77913844105 No Longer Active 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 [employer] OPERATOR Active PREDNISONE 20 MG TAB 2 tabs daily for 3 days, 1 tab daily for 3 days, 1/2 tab daily for 2 days PREDNISONE 93519725702 No Longer Active Austin Albarado MD Active LEVOFLOXACIN 500 MG ORAL TABS take 1 tab po qday LEVOFLOXACIN 23230662720 No Longer Active Austin Albarado MD Active PREDNISONE 20 MG TAB 2 tablets today, then 1 tablet by mouth days 2-5 PREDNISONE 06124690416 No Longer Active Austin Albarado MD Active AZITHROMYCIN 500 MG SOLR 1 po q day AZITHROMYCIN 80419366543 No Longer Active Austin Albarado MD Active KEFLEX 500 MG CAP 1 po TID x 7 days CEPHALEXIN 91185865614 No Longer Active Tristan Vaughn MD Active EQL VISION FORMULA TABS 1 TAB PO DAILY MULTIPLE VITAMINS-MINERALS 66269463979 No Longer Active Tristan Vaughn MD Active CHANTIX STARTING MONTH ELVIS 0.5 MG X 11 & 1 MG X 42 TABS 0.5mg daily for 3 days , then 0.5mg BID for 4 days, then 1mg BID VARENICLINE TARTRATE 21807138547 No Longer Active Tristan Vaughn MD Active LEVOTHYROXINE SODIUM 200 MCG TABS 1 TAB PO DAILY LEVOTHYROXINE SODIUM 81094404244 No Longer Active Tristan Vaughn MD Active LIOTHYRONINE SODIUM 50 MCG TABS take 1 tab po qday for hypothyroidism LIOTHYRONINE SODIUM 19138304445 No Longer Active Austin Albarado MD Active SYNTHROID 0.025 MG TAB 1 tablet by mouth daily LEVOTHYROXINE SODIUM 72202095303 No Longer Active Austin Albarado MD Active ARMOUR THYROID 120 MG TABS take 1 tab po qday for hypothyroidism THYROID 63920038743 Active Austin Albarado MD Active FLONASE 50 MCG/ACT SUSP 1 spray each nostril am and hs FLUTICASONE PROPIONATE Active Simona Galloway APRN Active ZITHROMAX 1 GM PACK DIRECTED AZITHROMYCIN 93720211072 No Longer Active Austin Albarado MD Active PREDNISONE 20 MG TAB 2 tabs daily for 3 days, 1 tab daily for 3 days, 1/2 tab daily for 2 days PREDNISONE 57783414987 No Longer Active Austin Albarado MD Active ZITHROMAX 250 MG TAB 2 po today, then 1 po q days 2-5 AZITHROMYCIN 48304624007 No Longer Active Austin Albarado MD Active NYSTATIN-TRIAMCINOLONE 131642-0.1 UNIT/GM-% OINT Apply to affected area TID NYSTATIN-TRIAMCINOLONE 60832672784 Active Austin Albarado MD Active ADVAIR DISKUS 500-50 MCG/DOSE AEPB ONE INH BID FLUTICASONE- SALMETEROL 90949189744 Active Austin Albarado MD Active ZITHROMAX 1 GM PACK DIRECTED ZITHROMAX 1 GM PACK 156685 AZITHROMYCIN Inactive SYNTHROID 0.025 MG TAB 1 tablet by mouth daily SYNTHROID 0.025 MG TAB 772567 LEVOTHYROXINE SODIUM Inactive LIOTHYRONINE SODIUM 50 MCG TABS take 1 tab po qday for hypothyroidism LIOTHYRONINE SODIUM 50 MCG TABS 236888 LIOTHYRONINE SODIUM Inactive LEVOTHYROXINE SODIUM 200 MCG TABS 1 TAB PO DAILY LEVOTHYROXINE SODIUM 200 MCG TABS 961258 LEVOTHYROXINE SODIUM Inactive CHANTIX STARTING MONTH ELVIS [...] po q day AZITHROMYCIN 500 MG SOLR 54586589560 AZITHROMYCIN Inactive PREDNISONE 20 MG TAB 2 tablets today, then 1 tablet by mouth days 2-5 PREDNISONE 20 MG TAB 559460 PREDNISONE Inactive TORSEMIDE 20 MG TABS 1 TAB PO BID TORSEMIDE 20 MG TABS 602979 TORSEMIDE Inactive ALBUTEROL SULFATE (2.5 MG/3ML) 0.083% NEBU nebulize 1 vial q 4-6 hours prn shortness of breath ALBUTEROL SULFATE (2.5 MG/3ML) 0.083% NEBU 672950 ALBUTEROL SULFATE Inactive LEVAQUIN 500 MG TAB 1 tablet by mouth daily LEVAQUIN 500 MG TAB 028272 LEVOFLOXACIN Inactive PREDNISONE 20 MG TAB 2 tabs daily for 4 days, 1 tab daily for 4 days, 1/2 tab daily for 4 days PREDNISONE 20 MG TAB 299127 PREDNISONE Inactive ZITHROMAX 1 GM ORAL PACK DIRECTED ZITHROMAX 1 GM ORAL PACK 404769 AZITHROMYCIN Inactive LEVAQUIN 500 MG TAB 1 tablet by mouth daily for 10 days. LEVAQUIN 500 MG TAB 008257 LEVOFLOXACIN Inactive PREDNISONE 20 MG ORAL TABS 3 TABS PO FOR 3 DAYS,THAN 2 TABS FOR 3 DAYS THAN, 1 TAB FOR 3 DAYS THAN, 1/2 TAB FOR 3 DAYS. PREDNISONE 20 MG ORAL TABS 847826 PREDNISONE Inactive PREDNISONE 20 MG ORAL TABS 3 daily for 3 days than, 2 tabs daily for 3 days than, 2 tabs daily for 3 days than, 1 tab daily for 3 days than 1/2 tab daily for 3 days. PREDNISONE 20 MG ORAL TABS 335295 PREDNISONE Inactive AMOXICILLIN 500 MG ORAL TABS Take one by mouth 3 times daily, morning, afternoon and evening.] AMOXICILLIN 500 MG ORAL TABS 163539 AMOXICILLIN Inactive LEVAQUIN 500 MG TAB 1 tablet by mouth daily LEVAQUIN 500 MG TAB 928634 LEVOFLOXACIN Inactive LEVAQUIN 500 MG TAB 1 tablet by mouth daily LEVAQUIN 500 MG TAB 632100 LEVOFLOXACIN Inactive PREDNISONE 20 MG ORAL TABS 3 tabs po for 3 days than,2 tabs po for 3 days,1 tab po for 3 days, 1/2 tab po for 3 days. PREDNISONE 20 MG ORAL TABS 761459 PREDNISONE Inactive ZITHROMAX 250 MG TAB 2 po today, then 1 po q days 2-5 ZITHROMAX 250 MG TAB 6718771 AZITHROMYCIN Inactive PREDNISONE 20 MG TAB 2 tabs daily for 3 days, 1 tab daily for 3 days, 1/2 tab daily for 2 days PREDNISONE 20 MG TAB 392187 PREDNISONE Inactive KEFLEX 500 MG CAP 1 po TID x 7 days KEFLEX 500 MG CAP 861543 CEPHALEXIN Inactive LEVOFLOXACIN 500 MG ORAL TABS take 1 tab po qday LEVOFLOXACIN 500 MG ORAL TABS 440159 LEVOFLOXACIN Inactive PREDNISONE 20 MG TAB 2 tabs daily for 3 days, 1 tab daily for 3 days, 1/2 tab daily for 2 days PREDNISONE 20 MG TAB 286187 PREDNISONE Inactive DOXYCYCLINE HYCLATE 100 MG CAP 1 cap by mouth twice daily DOXYCYCLINE HYCLATE 100 MG CAP 2807191 DOXYCYCLINE HYCLATE Inactive PREDNISONE 20 MG TAB take 3 tabs daily for 3 days, 2 tabs daily for 3 days, 1 tab daily for 3 days, 1/2 tab daily for 3 days PREDNISONE 20 MG TAB 455885 PREDNISONE Inactive PREDNISONE 20 MG TAB take 3 tabs daily for 3 days, 2 tabs daily for 3 days, 1 tab daily for 3 days, 1/2 tab daily for 3 days PREDNISONE 20 MG TAB 248121 PREDNISONE Inactive PREDNISONE 20 MG TAB take 3 tabs daily for 3 days, 2 tabs daily for 3 days, 1 tab daily for 3 days, 1/2 tab daily for 3 days PREDNISONE 20 MG TAB 984127 PREDNISONE Inactive Advance Directives Directive Description Start Date PERMISSION TO SHARE DISCUSSED WITH PATIENT -- NO DECISION MADE Immunizations Vaccine Administration Date Value Standard Description pneumococcal immunization administered Pneumovax 23 [CVX33] pneumococcal polysaccharide vaccine, 23 valent Vital Signs Date Name Value Unit Range Description blood pressure, diastolic - 8462-4 63 mm[Hg] BP fernandes blood pressure, systolic - 8480-6 112 mm[Hg] BP sys pulse rate E&M - 8867-4 117 /min Heart rate temperature E&M 98.4 [degF] Body temperature blood pressure, diastolic - 8462-4 59 mm[Hg] BP fernandes blood pressure, systolic - 8480-6 90 mm[Hg] BP sys pulse rate E&M - 8867-4 131 /min Heart rate temperature E&M 98.4 [degF] Body temperature weight E&M - 3141-9 282.5 [lb_av] Weight Measured blood pressure, diastolic - 8462-4 57 mm[Hg] BP fernandes blood pressure, systolic - 8480-6 131 mm[Hg] BP sys pulse rate E&M - 8867-4 124 /min Heart rate temperature E&M 98.1 [degF] Body temperature weight E&M - 3141-9 [...] E&M - 3141-9 250.5 [lb_av] Weight Measured Diagnostic Results Date Name [...] Peptide - Chemistry sodium, serum 140 mmol/L 480-682 2699/02/09 carbon dioxide, venous blood 39.2 mmol/L 21.0-32.0 potassium, serum 4.4 mmol/L 3.5-5.2 chloride, serum 100 mmol/L 98-107 blood glucose 131 mg/dL 65-110 urea nitrogen, blood 27 mg/dL 7-18 creatinine, serum 1.30 mg/dL 0.55-1.30 alanine aminotransferase (SGPT), serum 38 U/L 12-78 aspartate aminotransferase (SGOT), serum 34 U/L 15-37 calcium, serum 8.6 mg/dL 8.5-10.1 bilirubin, serum, total 0.30 mg/dL 0.00-1.00 Lab Report: Thyroid Stimulating Hormone (L), Comp. Metabolic Panel, CBC, ... - Chemistry TSH 43.52 m[iU]/mL 0.36-3.74 sodium, serum 140 mmol/L 265-215 6306/04/06 carbon dioxide, venous blood 36.3 mmol/L 21.0-32.0 potassium, serum 4.9 mmol/L 3.5-5.2 chloride, serum 100 mmol/L 98-107 blood glucose 62 mg/dL 65-110 urea nitrogen, blood 24 mg/dL 7-18 creatinine, serum 1.09 mg/dL 0.55-1.30 alanine aminotransferase (SGPT), serum 44 U/L 12-78 aspartate aminotransferase (SGOT), serum 25 U/L 15-37 calcium, serum 8.7 mg/dL 8.5-10.1 bilirubin, serum, total 0.50 mg/dL 0.00-1.00 cholesterol, serum 189 mg/dL 335-407 6147/04/06 triglyceride, serum, fasting 117 mg/dL 30-200 HDL [...] 142-424 Encounters Code Encounter Date Provider Facility CPT-39104 Level 4 Est. 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 CPT-56588 Level 4 Est. Patient 16:11:14 [employer]BALL C[employer] MOLDER Austin Albarado MD [facility] CPT-53337 Level 4 Est. Patient 23:08:56 CDT Austin Albarado MD [facility] CPT-55857 Level 4 Est. Patient 13:27:28 CDT Garcia Stroud MD [facility] Unit-[id number] Level 4 Est. Patient 10:51:20 CDT Austin Albarado MD [facility] Unit-[id number] Level 4 Est. Patient 20:09:43 SO[employer]BALL CORE MOLDER Austin Albarado MD [facility]-16986 Level 4 Est. Patient 21:00:28 CDT [id number] Level 4 Est. Patient 10:03:37 CDT Austin Albarado MD [facility] [id number] Level 3 Est. Patient 10:50:28 SO[employer]BALL C[employer] M[employer]DER Austin Albarado MD [facility] [id number] Level 4 Est. Patient 21:31:41 SO[employer]BALL C[employer] MOLDER Austin Albarado MD [facility] [id number] Level 3 Est. 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 Patient 11:04:53 SO[employer]BALL CORE MOLDER Tristan Vaughn MD [facility] [id number] Level 4 Est. Patient 09:50:59 CDT Austin Albarado MD [facility] [id number] Level 4 Est. Patient 09:29:00 CDT Austin Albarado MD [facility]-36015 Level 4 Est. Patient 14:23:07 CDT Austin Albarado MD [facility] CPT-33616 Level 4 Est. Patient 14:27:26 CDT Austin Albarado MD [facility] [id number] Level 4 Est. Patient 12:51:43 SO[employer]BALL C[employer] MOLDER Austin Albarado MD [facility] CPT-02453 Level 3 New Patient 14:17:38 SO[employer]BALL [employer] MOLDER Austin Albarado MD [facility] CPT-95634 Level 3 New Patient 11:28:18 SO[employer]BALL C[employer] MOLDER Austin Albarado MD [facility] Procedures Code Procedure Name Date Entry Date Standard Description CPT-TCMM Transitional Care Mgmt-Moderate 14:53:36 SO[employer] CPT-40371 No Charge Offi Visit 10:19:33 SOFTBALL C[employer] MOLDER CPT-43750 Chest 2V Frontal and Lat - XRAY USE ONLY 15:01:41 SOFTBALL C[employer] MOLDER CPT-14966 First Vx - Ix admin for Medicare patients 16:00:49 CDT CPT-04607 Fluzone High-Dose Intramuscular Suspension 16:00:49 CDT CPT-G0009 Administration of Pneumococcal Vaccine 13:25:27 CDT CPT-35984 Prevnar 13 Intramuscular Suspension 13:25:27 CDT 09/26 CPT-G0438 Initial Annual Wellness Exam 11:28:26 CDT CPT-58726 Chest 2V Frontal and Lat 15:00:00 [employer]BALL [employer] MOLDER CPT-67280 Breathing Tx 14:49:25 [employer]BALL [employer] MOLDER CPT-23101 Fluzone High Dose 15:08:41 SO[employer]BALL C[employer] MOLDER CPT-52746 Immunization Single Admin 15:08:41 SOFTBALL C[employer] MOLDER CPT-36963 Fluzone High Dose 17:31:19 CDT CPT-98954 Administration single or combination vaccine inc oral 17 :31:19 CDT CPT-14843 Venipuncture Draw Fee 11:03:05 CDT CPT-TCMM Transitional Care Mgmt-Moderate 16:32:35 CDT CPT-30335 Chest 2V Frontal and Lat 11:51:09 CDT CPT-G0008 Administration of Influenza Virus Vaccine 15:09:08 CDT CPT-49791 Fluzone High-Dose Intramuscular Suspension 15:09:08 CDT CPT-23187 Administration single or combination vaccine inc oral 17 :07:02 SOFTBALL C[employer] MOLDER CPT-32194 Influenza High Dose age 65+ 17:07:02 SOFTBALL CORE MOLDER
--- OUTSIDE RECORDS SUMMARY | 2017-02-27 21:46 | XMS REPORT | Clinical Summary ---
Author Author Admin, LEE Organization [facility] Address Unknown Phone Unavailable Allergies, Adverse Reactions, [...] Coronary atherosclerosis of unspecified type of vessel, burns paiute or graft U R I ICD-465.9 Inactive Austin Albarado MD 06/13 Bronchitis-Acute ICD-466.0 Inactive Austin Albarado MD Medication List Medication Instructions Start Date Stop Date Generic Name NDC Status Provider Patient Instruction FUROSEMIDE 20 MG TABS 2 today and tomorrow and then 1 daily as needed for swelling FUROSEMIDE [id number] Active Garcia Stroud MD Active AMOXICILLIN 500 MG ORAL TABS Take one by mouth 3 times daily, morning, afternoon and evening.] AMOXICILLIN 44375318883 No Longer Active Garcia Stroud MD Active PREDNISONE 20 MG ORAL TABS 3 daily for 3 days than, 2 tabs daily for 3 days than, 2 tabs daily for 3 days than, 1 tab daily for 3 days than 1/2 tab daily for 3 days. PREDNISONE 52389860587 No Longer Active Tracie Arrington APRN Active FLUTICASONE PROPIONATE 50 MCG/ACT SUSP 1 to 2 sprays each nostril daily 08/21 FLUTICASONE PROPIONATE 54415590529 Active Simona Galloway APRN Active PREDNISONE 10 MG TAB take 1 tab po qday for severe COPD PREDNISONE 52022459876 Active Austin Albarado MD Active PREDNISONE 20 MG ORAL TABS 3 TABS PO FOR 3 DAYS,THAN 2 TABS FOR 3 DAYS THAN, 1 TAB FOR 3 DAYS THAN, 1/2 TAB FOR 3 DAYS. PREDNISONE 87140411574 No Longer Active Austin Albarado MD Active LEVAQUIN 500 MG TAB 1 tablet by mouth daily for 10 days. LEVOFLOXACIN 43407674337 No Longer Active Austin Albarado MD Active PREDNISONE 20 MG TAB take 3 tabs daily for 3 days, 2 tabs daily for 3 days, 1 tab daily for 3 days, 1/2 tab daily for 3 days PREDNISONE 25955174419 No Longer Active Simona Galloway APRN Active ZITHROMAX 1 GM ORAL PACK DIRECTED AZITHROMYCIN 35717706463 No Longer Active Simona Galloway APRN Active PREDNISONE 20 MG TAB 2 tabs daily for 4 days, 1 tab daily for 4 days, 1/2 tab daily for 4 days PREDNISONE 64757120525 No Longer Active Austin Albarado MD Active LEVAQUIN 500 MG TAB 1 tablet by mouth daily LEVOFLOXACIN 67065382872 No Longer Active Austin Albarado MD Active PREDNISONE 20 MG TAB take 3 tabs daily for 3 days, 2 tabs daily for 3 days, 1 tab daily for 3 days, 1/2 tab daily for 3 days PREDNISONE 63099980043 No Longer Active Austin Albarado MD Active DOXYCYCLINE HYCLATE 100 MG CAP 1 cap by mouth twice daily DOXYCYCLINE HYCLATE 32615237087 No Longer Active Jikatyaina Ly BOWEN Active ALBUTEROL SULFATE (2.5 MG/3ML) 0.083% NEBU nebulize 1 vial q 4-6 hours prn shortness of breath ALBUTEROL SULFATE 96204707648 No Longer Active 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 WAGON DRILLER Active TORSEMIDE 20 MG TABS 1 TAB PO BID TORSEMIDE 34059952623 No Longer Active Jillina Frashonnal [employer]ER Active PREDNISONE 20 MG TAB 2 tabs daily for 3 days, 1 tab daily for 3 days, 1/2 tab daily for 2 days PREDNISONE 20381707184 No Longer Active Austin Albarado MD Active LEVOFLOXACIN 500 MG ORAL TABS take 1 tab po qday LEVOFLOXACIN 44369202367 No Longer Active Austin Albarado MD Active PREDNISONE 20 MG TAB 2 tablets today, then 1 tablet by mouth days 2-5 PREDNISONE 32595623744 No Longer Active Austin Albarado MD Active AZITHROMYCIN 500 MG SOLR 1 po q day AZITHROMYCIN 83432946629 No Longer Active Austin Albarado MD Active KEFLEX 500 MG CAP 1 po TID x 7 days CEPHALEXIN 83158523265 No Longer Active Tristan Vaughn MD Active EQL VISION FORMULA TABS 1 TAB PO DAILY MULTIPLE VITAMINS-MINERALS 08943758993 No Longer Active Tristan Vaughn MD Active CHANTIX STARTING MONTH ELVIS 0.5 MG X 11 & 1 MG X 42 TABS 0.5mg daily for 3 days , then 0.5mg BID for 4 days, then 1mg BID VARENICLINE TARTRATE 27607122657 No Longer Active Tristan Vaughn MD Active LEVOTHYROXINE SODIUM 200 MCG TABS 1 TAB PO DAILY LEVOTHYROXINE SODIUM 04648681530 No Longer Active Tristan Vaughn MD Active LIOTHYRONINE SODIUM 50 MCG TABS take 1 tab po qday for hypothyroidism LIOTHYRONINE SODIUM 92107417595 No Longer Active Austin Albarado MD Active SYNTHROID 0.025 MG TAB 1 tablet by mouth daily LEVOTHYROXINE SODIUM 42343869363 No Longer Active Austin Albarado MD Active ARMOUR THYROID 120 MG TABS take 1 tab po qday for hypothyroidism THYROID 73194741954 Active Austin Albarado MD Active FLONASE 50 MCG/ACT SUSP 1 spray each nostril am and hs FLUTICASONE PROPIONATE Active Simona Nilesh [employer]AGON DRILLER Active ZITHROMAX 1 GM PACK DIRECTED AZITHROMYCIN 79797714938 No Longer Active Austin Albarado MD Active PREDNISONE 20 MG TAB 2 tabs daily for 3 days, 1 tab daily for 3 days, 1/2 tab daily for 2 days PREDNISONE 90776115179 No Longer Active Austin Albarado MD Active ZITHROMAX 250 MG TAB 2 po today, then 1 po q days 2-5 AZITHROMYCIN 60960766398 No Longer Active Austin Albarado MD Active NYSTATIN-TRIAMCINOLONE 052657-4.1 UNIT/GM-% OINT Apply to affected area TID NYSTATIN-TRIAMCINOLONE 14933086530 Active Austin Albarado MD Active IPRATROPIUM-ALBUTEROL 0.5-2.5 (3) MG/3ML SOLN 1 VIAL NEB Q 6 HRS PRN IPRATROPIUM-ALBUTEROL 12478777542 Active Austin Albarado MD Active PROAIR HFA 108 (90 BASE) MCG/ACT AERS take 1-2 puffs q4hrs prn cough/ SOB ALBUTEROL SULFATE 62738594808 Active Austin Albarado MD Active ADVAIR DISKUS 500-50 MCG/DOSE AEPB ONE INH BID FLUTICASONE- SALMETEROL 47776548495 Active Austin Albarado MD Active ZITHROMAX 1 GM PACK DIRECTED ZITHROMAX 1 GM PACK 524866 AZITHROMYCIN Inactive SYNTHROID 0.025 MG TAB 1 tablet by mouth daily SYNTHROID 0.025 MG TAB 872414 LEVOTHYROXINE SODIUM Inactive LIOTHYRONINE SODIUM 50 MCG TABS take 1 tab po qday for hypothyroidism LIOTHYRONINE SODIUM 50 MCG TABS 802295 LIOTHYRONINE SODIUM Inactive LEVOTHYROXINE SODIUM 200 MCG TABS 1 TAB PO DAILY LEVOTHYROXINE SODIUM 200 MCG TABS 034354 LEVOTHYROXINE SODIUM Inactive CHANTIX STARTING MONTH ELVIS [...] po q day AZITHROMYCIN 500 MG SOLR 13425614110 AZITHROMYCIN Inactive PREDNISONE 20 MG TAB 2 tablets today, then 1 tablet by mouth days 2-5 PREDNISONE 20 MG TAB 038895 PREDNISONE Inactive TORSEMIDE 20 MG TABS 1 TAB PO BID TORSEMIDE 20 MG TABS 488164 TORSEMIDE Inactive ALBUTEROL SULFATE (2.5 MG/3ML) 0.083% NEBU nebulize 1 vial q 4-6 hours prn shortness of breath ALBUTEROL SULFATE (2.5 MG/3ML) 0.083% NEBU 591177 ALBUTEROL SULFATE Inactive LEVAQUIN 500 MG TAB 1 tablet by mouth daily LEVAQUIN 500 MG TAB 405964 LEVOFLOXACIN Inactive PREDNISONE 20 MG TAB 2 tabs daily for 4 days, 1 tab daily for 4 days, 1/2 tab daily for 4 days PREDNISONE 20 MG TAB 033307 PREDNISONE Inactive ZITHROMAX 1 GM ORAL PACK DIRECTED ZITHROMAX 1 GM ORAL PACK 264995 AZITHROMYCIN Inactive LEVAQUIN 500 MG TAB 1 tablet by mouth daily for 10 days. LEVAQUIN 500 MG TAB 009480 LEVOFLOXACIN Inactive PREDNISONE 20 MG ORAL TABS 3 TABS PO FOR 3 DAYS,THAN 2 TABS FOR 3 DAYS THAN, 1 TAB FOR 3 DAYS THAN, 1/2 TAB FOR 3 DAYS. PREDNISONE 20 MG ORAL TABS 002455 PREDNISONE Inactive PREDNISONE 20 MG ORAL TABS 3 daily for 3 days than, 2 tabs daily for 3 days than, 2 tabs daily for 3 days than, 1 tab daily for 3 days than 1/2 tab daily for 3 days. PREDNISONE 20 MG ORAL TABS 660944 PREDNISONE Inactive AMOXICILLIN 500 MG ORAL TABS Take one by mouth 3 times daily, morning, afternoon and evening.] AMOXICILLIN 500 MG ORAL TABS 178836 AMOXICILLIN Inactive ZITHROMAX 250 MG TAB 2 po today, then 1 po q days 2-5 ZITHROMAX 250 MG TAB 3382078 AZITHROMYCIN Inactive PREDNISONE 20 MG TAB 2 tabs daily for 3 days, 1 tab daily for 3 days, 1/2 tab daily for 2 days PREDNISONE 20 MG TAB 441167 PREDNISONE Inactive KEFLEX 500 MG CAP 1 po TID x 7 days KEFLEX 500 MG CAP 732838 CEPHALEXIN Inactive LEVOFLOXACIN 500 MG ORAL TABS take 1 tab po qday LEVOFLOXACIN 500 MG ORAL TABS 826854 LEVOFLOXACIN Inactive PREDNISONE 20 MG TAB 2 tabs daily for 3 days, 1 tab daily for 3 days, 1/2 tab daily for 2 days PREDNISONE 20 MG TAB 128183 PREDNISONE Inactive DOXYCYCLINE HYCLATE 100 MG CAP 1 cap by mouth twice daily DOXYCYCLINE HYCLATE 100 MG CAP 9385795 DOXYCYCLINE HYCLATE Inactive PREDNISONE 20 MG TAB take 3 tabs daily for 3 days, 2 tabs daily for 3 days, 1 tab daily for 3 days, 1/2 tab daily for 3 days PREDNISONE 20 MG TAB 097483 PREDNISONE Inactive PREDNISONE 20 MG TAB take 3 tabs daily for 3 days, 2 tabs daily for 3 days, 1 tab daily for 3 days, 1/2 tab daily for 3 days PREDNISONE 20 MG TAB 620302 PREDNISONE Inactive Advance Directives Directive Description Start Date PERMISSION TO SHARE DISCUSSED WITH PATIENT -- NO DECISION MADE Immunizations Vaccine Administration Date Value Standard Description pneumococcal immunization administered Pneumovax 23 [CVX33] pneumococcal polysaccharide vaccine, 23 valent Vital Signs Date Name Value Unit Range Description blood pressure, diastolic - 8462-4 72 mm[Hg] [...] ... - Chemistry cholesterol, serum 136 mg/dL 030-797 2526/10/06 triglyceride, serum, fasting 30 mg/dL 30-200 HDL cholesterol, serum 57 mg/dL 32-96 LDL cholesterol, serum 73 mg/dL 0-130 prostate specific antigen 1.45 ng/mL 0.00-4.00 thyroxine, serum, free 0.80 ng/dL 0.76-1.46 TSH 14.03 m[iU]/mL 0.36-3.74 Lab Report: Thyroid Stimulating Hormone (L), Comp. Metabolic Panel, CBC, ... - Chemistry TSH 43.52 m[iU]/mL 0.36-3.74 sodium, serum 140 mmol/L 941-773 7451/04/06 carbon dioxide, venous blood 36.3 mmol/L 21.0-32.0 potassium, serum 4.9 mmol/L 3.5-5.2 chloride, serum 100 mmol/L 98-107 blood glucose 62 mg/dL 65-110 urea nitrogen, blood 24 mg/dL 7-18 creatinine, serum 1.09 mg/dL 0.55-1.30 alanine aminotransferase (SGPT), serum 44 U/L 12-78 aspartate aminotransferase (SGOT), serum 25 U/L 15-37 calcium, serum 8.7 mg/dL 8.5-10.1 bilirubin, serum, total 0.50 mg/dL 0.00-1.00 cholesterol, serum 189 mg/dL 216-336 0993/04/06 triglyceride, serum, fasting 117 mg/dL 30-200 HDL [...] [phone] Encounters Code Encounter Date Provider Facility CPT-41019 Level 4 Est. Patient 13:27:28 CDT Garcia Stroud MD [facility] CPT-38554 Level 4 Est. Patient 10:51:20 CDT Austin Albarado MD [facility] CPT-48306 Level 4 Est. Patient 20:09:43 PRODUCTION MACHINE COMPUTER OPERATOR Austin Albarado MD [facility] CPT-07500 Level 4 Est. Patient 21:00:28 CDT Austin Albarado MD [facility] CPT-18429 Level 4 Est. Patient 10:03:37 CDT Austin Albarado MD [facility] CPT-53824 Level 3 Est. Patient 10:50:28 PRODUCTION MACHINE COMPUTER OPERATOR Austin Albarado MD [facility] CPT-73229 Level 4 Est. Patient 21:31:41 PRODUCTION MACHINE COMPUTER OPERATOR Austin Albarado MD [facility] CPT-11193 Level 3 Est. Patient 16:22:54 PRODUCTION MACHINE COMPUTER OPERATOR Jann Law DO [facility] CPT-88036 Level 3 Est. Patient 11:04:53 PRODUCTION MACHINE COMPUTER OPERATOR Tristan Vaughn MD [facility] CPT-41033 Level 4 Est. Patient 09:50:59 CDT Austin Albarado MD [facility] CPT-89789 Level 4 Est. Patient 09:29:00 CDT Austin Albarado MD [facility] CPT-19801 Level 4 Est. Patient 14:23:07 CDT Austin Albarado MD [facility] CPT-62842 Level 4 Est. Patient 14:27:26 CDT Austin Albarado MD [facility] CPT-68388 Level 4 Est. Patient 12:51:43 PRODUCTION MACHINE COMPUTER OPERATOR Austin Albarado MD [facility] CPT-81767 Level 3 New Patient 14:17:38 PRODUCTION MACHINE COMPUTER OPERATOR Austin Albarado MD [facility] CPT-04098 Level 3 New Patient 11:28:18 PRODUCTION MACHINE COMPUTER OPERATOR Austin Albarado MD [facility] Procedures Code Procedure Name Date Entry Date Standard Description CPT-G0009 Administration of Pneumococcal Vaccine 13:25:27 CDT CPT-50800 Prevnar 13 Intramuscular Suspension 13:25:27 CDT 09/26 CPT-G0438 Initial Annual Wellness Exam 11:28:26 CDT CPT-07816 Chest 2V Frontal and Lat 15:00:00 PRODUCTION MACHINE COMPUTER OPERATOR CPT-55963 Breathing Tx 14:49:25 PRODUCTION MACHINE COMPUTER OPERATOR CPT-05438 Fluzone High Dose 15:08:41 PRODUCTION MACHINE COMPUTER OPERATOR CPT-20662 Immunization Single Admin 15:08:41 PRODUCTION MACHINE COMPUTER OPERATOR CPT-19568 Fluzone High Dose 17:31:19 CDT CPT-77384 Administration single or combination vaccine inc oral 17 :31:19 CDT CPT-88506 Venipuncture Draw Fee 11:03:05 CDT CPT-TCMM Transitional Care Mgmt-Moderate 16:32:35 CDT CPT-31422 Chest 2V Frontal and Lat 11:51:09 CDT CPT-G0008 Administration of Influenza Virus Vaccine 15:09:08 CDT CPT-30029 Fluzone High-Dose Intramuscular Suspension 15:09:08 CDT CPT-77052 Administration single or combination vaccine inc oral 17 :07:02 PRODUCTION MACHINE COMPUTER OPERATOR CPT-22482 Influenza High Dose age 65+ 17:07:02 PRODUCTION MACHINE COMPUTER OPERATOR
--- OUTSIDE RECORDS SUMMARY | 2017-02-27 21:47 | XMS REPORT | Clinical Summary ---
Author Author Admin, DILLONE Organization [facility] Address Unknown Phone Unavailable Allergies, Adverse Reactions, Alerts Allergy Name Reaction Description Start Date Severity Status Provider SULFA Severe Active Austin Albarado MD Conditions or Problems Problem Name Problem Code Onset Date Status Entry Date Provider Comment Standard Description Annotate Asthma 493.90 Active Austin Albarado MD Asthma , unspecified Hypothyroidism 244.9 Active Austin Albarado MD Unspecified hypothyroidism COPD 496 Active Asutin Albarado MD Chronic airway obstruction, not elsewhere [...] Coronary atherosclerosis of unspecified type of vessel, la posta or graft Peripheral edema 782.3 Active Austin Albarado MD Edema Shortness of breath 786.05 Active Simona Galloway APRN Shortness of breath Hypotension 458.9 Active Simona Galloway APRN Hypotension, unspecified Shingles 053.9 Active Simona Galloway APRN Herpes zoster without mention of complication U R I ICD-465.9 Inactive Austin Albarado MD 06/13 Bronchitis-Acute ICD-466.0 Inactive Austin Albarado MD Medication List Medication Instructions Start Date Stop Date Generic Name NDC Status Provider Patient Instruction PREDNISONE 20 MG ORAL TABS 3 tabs po for 3 days than,2 tabs po for 3 days,1 tab po for 3 days, 1/2 tab po for 3 days. PREDNISONE 84094161723 No Longer Active Simona Galloway APRN Active LEVAQUIN 500 MG TAB 1 tablet by mouth daily LEVOFLOXACIN 98094069193 No Longer Active Simona Galloway APRN Active PREDNISONE 20 MG TAB take 3 tabs daily for 3 days, 2 tabs daily for 3 days, 1 tab daily for 3 days, 1/2 tab daily for 3 days PREDNISONE 26534753610 No Longer Active Austin Albarado MD Active LEVAQUIN 500 MG TAB 1 tablet by mouth daily LEVOFLOXACIN 20742528072 No Longer Active Madhavi Fiore Active FUROSEMIDE 20 MG TABS take 1 tab po BID for swelling FUROSEMIDE 35650455756 Active Austin Albarado MD Active AMOXICILLIN 500 MG ORAL TABS Take one by mouth 3 times daily, morning, afternoon and evening.] AMOXICILLIN 40888901659 No Longer Active Garcia Stroud MD Active PREDNISONE 20 MG ORAL TABS 3 daily for 3 days than, 2 tabs daily for 3 days than, 2 tabs daily for 3 days than, 1 tab daily for 3 days than 1/2 tab daily for 3 days. PREDNISONE 85652756198 No Longer Active Tracie Arrington APRN Active FLUTICASONE PROPIONATE 50 MCG/ACT SUSP 1 to 2 sprays each nostril daily 08/21 FLUTICASONE PROPIONATE 34063638888 Active Simona Galloway APRN Active PREDNISONE 10 MG TAB take 1 tab po qday for severe COPD PREDNISONE 93364094207 Active Austin Albarado MD Active PREDNISONE 20 MG ORAL TABS 3 TABS PO FOR 3 DAYS,THAN 2 TABS FOR 3 DAYS THAN, 1 TAB FOR 3 DAYS THAN, 1/2 TAB FOR 3 DAYS. PREDNISONE 11427488070 No Longer Active Austin Albarado MD Active LEVAQUIN 500 MG TAB 1 tablet by mouth daily for 10 days. LEVOFLOXACIN 87869085546 No Longer Active Austin Albarado MD Active PREDNISONE 20 MG TAB take 3 tabs daily for 3 days, 2 tabs daily for 3 days, 1 tab daily for 3 days, 1/2 tab daily for 3 days PREDNISONE 26485189128 No Longer Active Simona Galloway APRN Active ZITHROMAX 1 GM ORAL PACK DIRECTED AZITHROMYCIN 08686582143 No Longer Active Simona Galloway APRN Active PREDNISONE 20 MG TAB 2 tabs daily for 4 days, 1 tab daily for 4 days, 1/2 tab daily for 4 days PREDNISONE 78790844394 No Longer Active Austin Albarado MD Active LEVAQUIN 500 MG TAB 1 tablet by mouth daily LEVOFLOXACIN 00423553293 No Longer Active Austin Albarado MD Active PREDNISONE 20 MG TAB take 3 tabs daily for 3 days, 2 tabs daily for 3 days, 1 tab daily for 3 days, 1/2 tab daily for 3 days PREDNISONE 88300857181 No Longer Active Austin Albarado MD Active DOXYCYCLINE HYCLATE 100 MG CAP 1 cap by mouth twice daily DOXYCYCLINE HYCLATE 99585060453 No Longer Active 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 PIPE STEM REPAIRER Active ALBUTEROL SULFATE (2.5 MG/3ML) 0.083% NEBU nebulize 1 vial q 4-6 hours prn shortness of breath ALBUTEROL SULFATE 25930036272 No Longer Active 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 PIPE STEM REPAIRER Active TORSEMIDE 20 MG TABS 1 TAB PO BID TORSEMIDE 68738122899 No Longer Active 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 PIPE STEM REPAIRER Active PREDNISONE 20 MG TAB 2 tabs daily for 3 days, 1 tab daily for 3 days, 1/2 tab daily for 2 days PREDNISONE 94015868539 No Longer Active Austin Albarado MD Active LEVOFLOXACIN 500 MG ORAL TABS take 1 tab po qday LEVOFLOXACIN 09167499675 No Longer Active Austin Albarado MD Active PREDNISONE 20 MG TAB 2 tablets today, then 1 tablet by mouth days 2-5 PREDNISONE 27984866125 No Longer Active Austin Albarado MD Active AZITHROMYCIN 500 MG SOLR 1 po q day AZITHROMYCIN 79859668190 No Longer Active Austin Albarado MD Active KEFLEX 500 MG CAP 1 po TID x 7 days CEPHALEXIN 36850198593 No Longer Active Tristan Vaughn MD Active EQL VISION FORMULA TABS 1 TAB PO DAILY MULTIPLE VITAMINS-MINERALS 25670418251 No Longer Active Tristan Vaughn MD Active CHANTIX STARTING MONTH ELVIS 0.5 MG X 11 & 1 MG X 42 TABS 0.5mg daily for 3 days , then 0.5mg BID for 4 days, then 1mg BID VARENICLINE TARTRATE 68472590915 No Longer Active Tristan Vaughn MD Active LEVOTHYROXINE SODIUM 200 MCG TABS 1 TAB PO DAILY LEVOTHYROXINE SODIUM 68801035519 No Longer Active Tristan Vaughn MD Active LIOTHYRONINE SODIUM 50 MCG TABS take 1 tab po qday for hypothyroidism LIOTHYRONINE SODIUM 10779801609 No Longer Active Austin Albarado MD Active SYNTHROID 0.025 MG TAB 1 tablet by mouth daily LEVOTHYROXINE SODIUM 75139303686 No Longer Active Austin Albarado MD Active ARMOUR THYROID 120 MG TABS take 1 tab po qday for hypothyroidism THYROID 08226093383 Active Austin Albarado MD Active FLONASE 50 MCG/ACT SUSP 1 spray each nostril am and hs FLUTICASONE PROPIONATE Active Simona Galloway APRN Active ZITHROMAX 1 GM PACK DIRECTED AZITHROMYCIN 16063921871 No Longer Active Austin Albarado MD Active PREDNISONE 20 MG TAB 2 tabs daily for 3 days, 1 tab daily for 3 days, 1/2 tab daily for 2 days PREDNISONE 54856172236 No Longer Active Austin Albarado MD Active ZITHROMAX 250 MG TAB 2 po today, then 1 po q days 2-5 AZITHROMYCIN 04282236600 No Longer Active Austin Albarado MD Active NYSTATIN-TRIAMCINOLONE 106757-1.1 UNIT/GM-% OINT Apply to affected area TID NYSTATIN-TRIAMCINOLONE 57254042745 Active Austin Albarado MD Active IPRATROPIUM-ALBUTEROL 0.5-2.5 (3) MG/3ML SOLN 1 VIAL NEB Q 6 HRS PRN IPRATROPIUM-ALBUTEROL 04830392490 Active Simona Nilesh PIPE STEM REPAIRER Active PROAIR HFA 108 (90 BASE) MCG/ACT AERS take 1-2 puffs q4hrs prn cough/ SOB ALBUTEROL SULFATE 74682985282 Active Austin Albarado MD Active ADVAIR DISKUS 500-50 MCG/DOSE AEPB ONE INH BID FLUTICASONE- SALMETEROL 23207646156 Active Austin Albarado MD Active ZITHROMAX 1 GM PACK DIRECTED ZITHROMAX 1 GM PACK 272946 AZITHROMYCIN Inactive SYNTHROID 0.025 MG TAB 1 tablet by mouth daily SYNTHROID 0.025 MG TAB 690853 LEVOTHYROXINE SODIUM Inactive LIOTHYRONINE SODIUM 50 MCG TABS take 1 tab po qday for hypothyroidism LIOTHYRONINE SODIUM 50 MCG TABS 009667 LIOTHYRONINE SODIUM Inactive LEVOTHYROXINE SODIUM 200 MCG TABS 1 TAB PO DAILY LEVOTHYROXINE SODIUM 200 MCG TABS 808384 LEVOTHYROXINE SODIUM Inactive CHANTIX STARTING MONTH ELVIS [...] po q day AZITHROMYCIN 500 MG SOLR 29586462059 AZITHROMYCIN Inactive PREDNISONE 20 MG TAB 2 tablets today, then 1 tablet by mouth days 2-5 PREDNISONE 20 MG TAB 745086 PREDNISONE Inactive TORSEMIDE 20 MG TABS 1 TAB PO BID TORSEMIDE 20 MG TABS 563775 TORSEMIDE Inactive ALBUTEROL SULFATE (2.5 MG/3ML) 0.083% NEBU nebulize 1 vial q 4-6 hours prn shortness of breath ALBUTEROL SULFATE (2.5 MG/3ML) 0.083% NEBU 221574 ALBUTEROL SULFATE Inactive LEVAQUIN 500 MG TAB 1 tablet by mouth daily LEVAQUIN 500 MG TAB 576253 LEVOFLOXACIN Inactive PREDNISONE 20 MG TAB 2 tabs daily for 4 days, 1 tab daily for 4 days, 1/2 tab daily for 4 days PREDNISONE 20 MG TAB 883296 PREDNISONE Inactive ZITHROMAX 1 GM ORAL PACK DIRECTED ZITHROMAX 1 GM ORAL PACK 277515 AZITHROMYCIN Inactive LEVAQUIN 500 MG TAB 1 tablet by mouth daily for 10 days. LEVAQUIN 500 MG TAB 518015 LEVOFLOXACIN Inactive PREDNISONE 20 MG ORAL TABS 3 TABS PO FOR 3 DAYS,THAN 2 TABS FOR 3 DAYS THAN, 1 TAB FOR 3 DAYS THAN, 1/2 TAB FOR 3 DAYS. PREDNISONE 20 MG ORAL TABS 370701 PREDNISONE Inactive PREDNISONE 20 MG ORAL TABS 3 daily for 3 days than, 2 tabs daily for 3 days than, 2 tabs daily for 3 days than, 1 tab daily for 3 days than 1/2 tab daily for 3 days. PREDNISONE 20 MG ORAL TABS 929218 PREDNISONE Inactive AMOXICILLIN 500 MG ORAL TABS Take one by mouth 3 times daily, morning, afternoon and evening.] AMOXICILLIN 500 MG ORAL TABS 862713 AMOXICILLIN Inactive LEVAQUIN 500 MG TAB 1 tablet by mouth daily LEVAQUIN 500 MG TAB 405850 LEVOFLOXACIN Inactive LEVAQUIN 500 MG TAB 1 tablet by mouth daily LEVAQUIN 500 MG TAB 003921 LEVOFLOXACIN Inactive PREDNISONE 20 MG ORAL TABS 3 tabs po for 3 days than,2 tabs po for 3 days,1 tab po for 3 days, 1/2 tab po for 3 days. PREDNISONE 20 MG ORAL TABS 682739 PREDNISONE Inactive ZITHROMAX 250 MG TAB 2 po today, then 1 po q days 2-5 ZITHROMAX 250 MG TAB 8512481 AZITHROMYCIN Inactive PREDNISONE 20 MG TAB 2 tabs daily for 3 days, 1 tab daily for 3 days, 1/2 tab daily for 2 days PREDNISONE 20 MG TAB 112886 PREDNISONE Inactive KEFLEX 500 MG CAP 1 po TID x 7 days KEFLEX 500 MG CAP 410468 CEPHALEXIN Inactive LEVOFLOXACIN 500 MG ORAL TABS take 1 tab po qday LEVOFLOXACIN 500 MG ORAL TABS 092059 LEVOFLOXACIN Inactive PREDNISONE 20 MG TAB 2 tabs daily for 3 days, 1 tab daily for 3 days, 1/2 tab daily for 2 days PREDNISONE 20 MG TAB 682641 PREDNISONE Inactive DOXYCYCLINE HYCLATE 100 MG CAP 1 cap by mouth twice daily DOXYCYCLINE HYCLATE 100 MG CAP 0101674 DOXYCYCLINE HYCLATE Inactive PREDNISONE 20 MG TAB take 3 tabs daily for 3 days, 2 tabs daily for 3 days, 1 tab daily for 3 days, 1/2 tab daily for 3 days PREDNISONE 20 MG TAB 752205 PREDNISONE Inactive PREDNISONE 20 MG TAB take 3 tabs daily for 3 days, 2 tabs daily for 3 days, 1 tab daily for 3 days, 1/2 tab daily for 3 days PREDNISONE 20 MG TAB 459372 PREDNISONE Inactive PREDNISONE 20 MG TAB take 3 tabs daily for 3 days, 2 tabs daily for 3 days, 1 tab daily for 3 days, 1/2 tab daily for 3 days PREDNISONE 20 MG TAB 632482 PREDNISONE Inactive Advance Directives Directive Description Start [...] Peptide - Chemistry sodium, serum 140 mmol/L 396-416 6206/02/09 carbon dioxide, venous blood 39.2 mmol/L 21.0-32.0 [...] 43.52 m[iU]/mL 0.36-3.74 sodium, serum 140 mmol/L 544-573 8412/04/06 carbon dioxide, venous blood 36.3 mmol/L 21.0-32.0 potassium, serum 4.9 mmol/L 3.5-5.2 chloride, serum 100 mmol/L 98-107 blood glucose 62 mg/dL 65-110 urea nitrogen, blood 24 mg/dL 7-18 creatinine, serum 1.09 mg/dL 0.55-1.30 alanine aminotransferase (SGPT), serum 44 U/L 12-78 aspartate aminotransferase (SGOT), serum 25 U/L 15-37 calcium, serum 8.7 mg/dL 8.5-10.1 bilirubin, serum, total 0.50 mg/dL 0.00-1.00 cholesterol, serum 189 mg/dL 696-824 9700/04/06 triglyceride, serum, fasting 117 mg/dL 30-200 HDL [...] 142-424 Encounters Code Encounter Date Provider Facility CPT-84160 Level 4 Est. Patient 17:54:41 PYTHON ENGINEER Austin Albarado MD [facility] CPT-53145 Level 4 Est. Patient 16:11:14 PYTHON ENGINEER Ausitn Albarado MD [facility] CPT-51652 Level 4 Est. Patient 23:08:56 CDT Austin Albarado MD [facility] CPT-43709 Level 4 Est. Patient 13:27:28 CDT Garcia Stroud MD [facility] CPT-68418 Level 4 Est. Patient 10:51:20 CDT Austin Albarado MD [facility] CPT-37590 Level 4 Est. Patient 20:09:43 PYTHON ENGINEER Austin Albarado MD [facility] CPT-97882 Level 4 Est. Patient 21:00:28 CDT Austin Albarado MD [facility] CPT-01661 Level 4 Est. Patient 10:03:37 CDT Austin Albarado MD [facility] CPT-69125 Level 3 Est. Patient 10:50:28 PYTHON ENGINEER Austin Albarado MD [facility] CPT-30175 Level 4 Est. Patient 21:31:41 PYTHON ENGINEER Austin Albarado MD [facility] CPT-49747 Level 3 Est. Patient 16:22:54 PYTHON ENGINEER Jann Law DO [facility] CPT-66591 Level 3 Est. Patient 11:04:53 PYTHON ENGINEER Tristan Vaughn MD [facility] CPT-47470 Level 4 Est. Patient 09:50:59 CDT Austin Albarado MD [facility] CPT-23720 Level 4 Est. Patient 09:29:00 CDT Austin Albarado MD [facility] CPT-15104 Level 4 Est. Patient 14:23:07 CDT Austin Albarado MD [facility] CPT-65920 Level 4 Est. Patient 14:27:26 CDT Austin Albarado MD [facility] CPT-60337 Level 4 Est. Patient 12:51:43 PYTHON ENGINEER Austin Albarado MD [facility] CPT-51454 Level 3 New Patient 14:17:38 PYTHON ENGINEER Austin Albarado MD [facility] CPT-66550 Level 3 New Patient 11:28:18 PYTHON ENGINEER Austin Albarado MD [facility] Procedures Code Procedure Name Date Entry Date Standard Description CPT-40096 No Charge Offi Visit 10:19:33 PYTHON ENGINEER CPT-79148 Chest 2V Frontal and Lat - XRAY USE ONLY 15:01:41 PYTHON ENGINEER CPT-13139 First Vx - Ix admin for Medicare patients 16:00:49 CDT CPT-56178 Fluzone High-Dose Intramuscular Suspension 16:00:49 CDT CPT-G0009 Administration of Pneumococcal Vaccine 13:25:27 CDT CPT-60279 Prevnar 13 Intramuscular Suspension 13:25:27 CDT 09/26 CPT-G0438 Initial Annual Wellness Exam 11:28:26 CDT CPT-87029 Chest 2V Frontal and Lat 15:00:00 PYTHON ENGINEER CPT-76596 Breathing Tx 14:49:25 PYTHON ENGINEER CPT-70335 Fluzone High Dose 15:08:41 PYTHON ENGINEER CPT-90100 Immunization Single Admin 15:08:41 PYTHON ENGINEER CPT-72398 Fluzone High Dose 17:31:19 CDT CPT-70251 Administration single or combination vaccine inc oral 17 :31:19 CDT CPT-88656 Venipuncture Draw Fee 11:03:05 CDT CPT-TCMM Transitional Care Mgmt-Moderate 16:32:35 CDT CPT-64562 Chest 2V Frontal and Lat 11:51:09 CDT CPT-G0008 Administration of Influenza Virus Vaccine 15:09:08 CDT CPT-23223 Fluzone High-Dose Intramuscular Suspension 15:09:08 CDT CPT-77630 Administration single or combination vaccine inc oral 17 :07:02 PYTHON ENGINEER CPT-21168 Influenza High Dose age 65+ 17:07:02 PYTHON ENGINEER
--- OUTSIDE RECORDS SUMMARY | 2017-02-27 21:48 | XMS REPORT | Clinical Summary ---
Author Author Admin, DILLONE Organization [employer] Address Unknown Phone Unavailable Allergies, Adverse Reactions, [...] Coronary atherosclerosis of unspecified type of vessel, teller or graft Peripheral edema 782.3 Active Austin Albarado MD Edema U R I ICD-465.9 Inactive Austin Albarado MD 06/13 Bronchitis-Acute ICD-466.0 Inactive Austin Albarado MD Medication List Medication Instructions Start Date Stop Date Generic Name NDC Status Provider Patient Instruction PREDNISONE 20 MG TAB take 3 tabs daily for 3 days, 2 tabs daily for 3 days, 1 tab daily for 3 days, 1/2 tab daily for 3 days PREDNISONE 45089843127 Active Austin Albarado MD Active LEVAQUIN 500 MG TAB 1 tablet by mouth daily LEVOFLOXACIN 38994284487 Active Mica Sneed Active LEVAQUIN 500 MG TAB 1 tablet by mouth daily LEVOFLOXACIN 16922142481 No Longer Active Madhavi Fiore Active FUROSEMIDE 20 MG TABS take 1 tab po BID for swelling FUROSEMIDE 55138861598 Active Austin Albarado MD Active PREDNISONE 20 MG ORAL TABS 3 tabs po for 3 days than,2 tabs po for 3 days,1 tab po for 3 days, 1/2 tab po for 3 days. PREDNISONE 55858810689 Active Mica Sneed Active AMOXICILLIN 500 MG ORAL TABS Take one by mouth 3 times daily, morning, afternoon and evening.] AMOXICILLIN 07211141009 No Longer Active Garcia Stroud MD Active PREDNISONE 20 MG ORAL TABS 3 daily for 3 days than, 2 tabs daily for 3 days than, 2 tabs daily for 3 days than, 1 tab daily for 3 days than 1/2 tab daily for 3 days. PREDNISONE 40899432545 No Longer Active Tracie Arrington APRN Active FLUTICASONE PROPIONATE 50 MCG/ACT SUSP 1 to 2 sprays each nostril daily 08/21 FLUTICASONE PROPIONATE 47500883789 Active Simona Galloway APRN Active PREDNISONE 10 MG TAB take 1 tab po qday for severe COPD PREDNISONE 89241713631 Active Austin Albarado MD Active PREDNISONE 20 MG ORAL TABS 3 TABS PO FOR 3 DAYS,THAN 2 TABS FOR 3 DAYS THAN, 1 TAB FOR 3 DAYS THAN, 1/2 TAB FOR 3 DAYS. PREDNISONE 92320409001 No Longer Active Austin Albarado MD Active LEVAQUIN 500 MG TAB 1 tablet by mouth daily for 10 days. LEVOFLOXACIN 19720191847 No Longer Active Austin Albarado MD Active PREDNISONE 20 MG TAB take 3 tabs daily for 3 days, 2 tabs daily for 3 days, 1 tab daily for 3 days, 1/2 tab daily for 3 days PREDNISONE 78893827454 No Longer Active Simona Galloway APRN Active ZITHROMAX 1 GM ORAL PACK DIRECTED AZITHROMYCIN 38954521637 No Longer Active Simona Galloway APRN Active PREDNISONE 20 MG TAB 2 tabs daily for 4 days, 1 tab daily for 4 days, 1/2 tab daily for 4 days PREDNISONE 87884485093 No Longer Active Austin Albarado MD Active LEVAQUIN 500 MG TAB 1 tablet by mouth daily LEVOFLOXACIN 98373195976 No Longer Active Austin Albarado MD Active PREDNISONE 20 MG TAB take 3 tabs daily for 3 days, 2 tabs daily for 3 days, 1 tab daily for 3 days, 1/2 tab daily for 3 days PREDNISONE 24213309465 No Longer Active Austin Albarado MD Active DOXYCYCLINE HYCLATE 100 MG CAP 1 cap by mouth twice daily DOXYCYCLINE HYCLATE 96600307497 No Longer Active Joshllina Ly BOWEN Active ALBUTEROL SULFATE (2.5 MG/3ML) 0.083% NEBU nebulize 1 vial q 4-6 hours prn shortness of breath ALBUTEROL SULFATE 76949310236 No Longer Active Joshllina Ly TRANSMISSION LINE ENGINEER Active TORSEMIDE 20 MG TABS 1 TAB PO BID TORSEMIDE 37382382933 No Longer Active Joshllaftab Modi APRN Active PREDNISONE 20 MG TAB 2 tabs daily for 3 days, 1 tab daily for 3 days, 1/2 tab daily for 2 days PREDNISONE 18427785603 No Longer Active Austin Albarado MD Active LEVOFLOXACIN 500 MG ORAL TABS take 1 tab po qday LEVOFLOXACIN 52622479802 No Longer Active Austin Albarado MD Active PREDNISONE 20 MG TAB 2 tablets today, then 1 tablet by mouth days 2-5 PREDNISONE 71669534674 No Longer Active Austin Albarado MD Active AZITHROMYCIN 500 MG SOLR 1 po q day AZITHROMYCIN 38626905583 No Longer Active Austin Albarado MD Active KEFLEX 500 MG CAP 1 po TID x 7 days CEPHALEXIN 06169000415 No Longer Active Tristan Vaughn MD Active EQL VISION FORMULA TABS 1 TAB PO DAILY MULTIPLE VITAMINS-MINERALS 52113487546 No Longer Active Tristan Vaughn MD Active CHANTIX STARTING MONTH ELVIS 0.5 MG X 11 & 1 MG X 42 TABS 0.5mg daily for 3 days , then 0.5mg BID for 4 days, then 1mg BID VARENICLINE TARTRATE 99821392426 No Longer Active Tristan Vaughn MD Active LEVOTHYROXINE SODIUM 200 MCG TABS 1 TAB PO DAILY LEVOTHYROXINE SODIUM 51891204256 No Longer Active Tristan Vaughn MD Active LIOTHYRONINE SODIUM 50 MCG TABS take 1 tab po qday for hypothyroidism LIOTHYRONINE SODIUM 29722915242 No Longer Active Austin Albarado MD Active SYNTHROID 0.025 MG TAB 1 tablet by mouth daily LEVOTHYROXINE SODIUM 24147291718 No Longer Active Austin Albarado MD Active ARMOUR THYROID 120 MG TABS take 1 tab po qday for hypothyroidism THYROID 94655985354 Active Austin Albarado MD Active FLONASE 50 MCG/ACT SUSP 1 spray each nostril am and hs FLUTICASONE PROPIONATE Active Simona Galloway APRN Active ZITHROMAX 1 GM PACK DIRECTED AZITHROMYCIN 28321441624 No Longer Active Austin Albarado MD Active PREDNISONE 20 MG TAB 2 tabs daily for 3 days, 1 tab daily for 3 days, 1/2 tab daily for 2 days PREDNISONE 67944858530 No Longer Active Austin Albarado MD Active ZITHROMAX 250 MG TAB 2 po today, then 1 po q days 2-5 AZITHROMYCIN 96514626073 No Longer Active Austin Albarado MD Active NYSTATIN-TRIAMCINOLONE 542530-1.1 UNIT/GM-% OINT Apply to affected area TID NYSTATIN-TRIAMCINOLONE 74710147616 Active Austin Albarado MD Active IPRATROPIUM-ALBUTEROL 0.5-2.5 (3) MG/3ML SOLN 1 VIAL NEB Q 6 HRS PRN IPRATROPIUM-ALBUTEROL 63296361552 Active Simona Galloway APRN Active PROAIR HFA 108 (90 BASE) MCG/ACT AERS take 1-2 puffs q4hrs prn cough/ SOB ALBUTEROL SULFATE 50524154211 Active Austin Albarado MD Active ADVAIR DISKUS 500-50 MCG/DOSE AEPB ONE INH BID FLUTICASONE- SALMETEROL 65154002850 Active Austin Albarado MD Active ZITHROMAX 1 GM PACK DIRECTED ZITHROMAX 1 GM PACK 965796 AZITHROMYCIN Inactive SYNTHROID 0.025 MG TAB 1 tablet by mouth daily SYNTHROID 0.025 MG TAB 117769 LEVOTHYROXINE SODIUM Inactive LIOTHYRONINE SODIUM 50 MCG TABS take 1 tab po qday for hypothyroidism LIOTHYRONINE SODIUM 50 MCG TABS 502666 LIOTHYRONINE SODIUM Inactive LEVOTHYROXINE SODIUM 200 MCG TABS 1 TAB PO DAILY LEVOTHYROXINE SODIUM 200 MCG TABS 582749 LEVOTHYROXINE SODIUM Inactive CHANTIX STARTING MONTH ELVIS [...] po q day AZITHROMYCIN 500 MG SOLR 67513678037 AZITHROMYCIN Inactive PREDNISONE 20 MG TAB 2 tablets today, then 1 tablet by mouth days 2-5 PREDNISONE 20 MG TAB 620695 PREDNISONE Inactive TORSEMIDE 20 MG TABS 1 TAB PO BID TORSEMIDE 20 MG TABS 417758 TORSEMIDE Inactive ALBUTEROL SULFATE (2.5 MG/3ML) 0.083% NEBU nebulize 1 vial q 4-6 hours prn shortness of breath ALBUTEROL SULFATE (2.5 MG/3ML) 0.083% NEBU 017056 ALBUTEROL SULFATE Inactive LEVAQUIN 500 MG TAB 1 tablet by mouth daily LEVAQUIN 500 MG TAB 287838 LEVOFLOXACIN Inactive PREDNISONE 20 MG TAB 2 tabs daily for 4 days, 1 tab daily for 4 days, 1/2 tab daily for 4 days PREDNISONE 20 MG TAB 298623 PREDNISONE Inactive ZITHROMAX 1 GM ORAL PACK DIRECTED ZITHROMAX 1 GM ORAL PACK 937859 AZITHROMYCIN Inactive LEVAQUIN 500 MG TAB 1 tablet by mouth daily for 10 days. LEVAQUIN 500 MG TAB 372507 LEVOFLOXACIN Inactive PREDNISONE 20 MG ORAL TABS 3 TABS PO FOR 3 DAYS,THAN 2 TABS FOR 3 DAYS THAN, 1 TAB FOR 3 DAYS THAN, 1/2 TAB FOR 3 DAYS. PREDNISONE 20 MG ORAL TABS 559737 PREDNISONE Inactive PREDNISONE 20 MG ORAL TABS 3 daily for 3 days than, 2 tabs daily for 3 days than, 2 tabs daily for 3 days than, 1 tab daily for 3 days than 1/2 tab daily for 3 days. PREDNISONE 20 MG ORAL TABS 312372 PREDNISONE Inactive AMOXICILLIN 500 MG ORAL TABS Take one by mouth 3 times daily, morning, afternoon and evening.] AMOXICILLIN 500 MG ORAL TABS 745614 AMOXICILLIN Inactive LEVAQUIN 500 MG TAB 1 tablet by mouth daily LEVAQUIN 500 MG TAB 287063 LEVOFLOXACIN Inactive ZITHROMAX 250 MG TAB 2 po today, then 1 po q days 2-5 ZITHROMAX 250 MG TAB 5918970 AZITHROMYCIN Inactive PREDNISONE 20 MG TAB 2 tabs daily for 3 days, 1 tab daily for 3 days, 1/2 tab daily for 2 days PREDNISONE 20 MG TAB 526779 PREDNISONE Inactive KEFLEX 500 MG CAP 1 po TID x 7 days KEFLEX 500 MG CAP 495590 CEPHALEXIN Inactive LEVOFLOXACIN 500 MG ORAL TABS take 1 tab po qday LEVOFLOXACIN 500 MG ORAL TABS 613372 LEVOFLOXACIN Inactive PREDNISONE 20 MG TAB 2 tabs daily for 3 days, 1 tab daily for 3 days, 1/2 tab daily for 2 days PREDNISONE 20 MG TAB 789618 PREDNISONE Inactive DOXYCYCLINE HYCLATE 100 MG CAP 1 cap by mouth twice daily DOXYCYCLINE HYCLATE 100 MG CAP 2254438 DOXYCYCLINE HYCLATE Inactive PREDNISONE 20 MG TAB take 3 tabs daily for 3 days, 2 tabs daily for 3 days, 1 tab daily for 3 days, 1/2 tab daily for 3 days PREDNISONE 20 MG TAB 636503 PREDNISONE Inactive PREDNISONE 20 MG TAB take 3 tabs daily for 3 days, 2 tabs daily for 3 days, 1 tab daily for 3 days, 1/2 tab daily for 3 days PREDNISONE 20 MG TAB 216812 PREDNISONE Inactive Advance Directives Directive Description Start Date PERMISSION TO SHARE DISCUSSED WITH PATIENT -- NO DECISION MADE Immunizations Vaccine Administration Date Value Standard Description pneumococcal immunization administered Pneumovax 23 [CVX33] pneumococcal polysaccharide vaccine, 23 valent Vital Signs Date Name Value Unit Range Description blood pressure, diastolic - 8462-4 57 mm[Hg] [...] 43.52 m[iU]/mL 0.36-3.74 sodium, serum 140 mmol/L 272-743 1655/04/06 carbon dioxide, venous blood 36.3 mmol/L 21.0-32.0 potassium, serum 4.9 mmol/L 3.5-5.2 chloride, serum 100 mmol/L 98-107 blood glucose 62 mg/dL 65-110 urea nitrogen, blood 24 mg/dL 7-18 creatinine, serum 1.09 mg/dL 0.55-1.30 alanine aminotransferase (SGPT), serum 44 U/L 12-78 aspartate aminotransferase (SGOT), serum 25 U/L 15-37 calcium, serum 8.7 mg/dL 8.5-10.1 bilirubin, serum, total 0.50 mg/dL 0.00-1.00 cholesterol, serum 189 mg/dL 766-533 3869/04/06 triglyceride, serum, fasting 117 mg/dL 30-200 HDL [...] 142-424 Encounters Code Encounter Date Provider Facility CPT-78509 Level 4 Est. Patient 17:54:41 NANOELECTRONICS ENGINEER Austin Albarado MD [facility] CPT-03433 Level 4 Est. Patient 16:11:14 NANOELECTRONICS ENGINEER Austin Albarado MD [facility] CPT-36138 Level 4 Est. Patient 23:08:56 CDT Austin Albarado MD [facility] CPT-12767 Level 4 Est. Patient 13:27:28 CDT Garcia Stroud MD [facility] CPT-58376 Level 4 Est. Patient 10:51:20 CDT Austin Albarado MD [facility]-05462 Level 4 Est. Patient 20:09:43 NANOELECTRONICS ENGINEER Austin Albarado MD [facility]-52163 Level 4 Est. Patient 21:00:28 CDT Austin Albarado MD [facility]-00188 Level 4 Est. Patient 10:03:37 CDT Austin Albarado MD [facility]-28412 Level 3 Est. Patient 10:50:28 NANOELECTRONICS ENGINEER Austin Albarado MD [facility]-72007 Level 4 Est. Patient 21:31:41 NANOELECTRONICS ENGINEER Austin Albarado MD [facility]-08408 Level 3 Est. Patient 16:22:54 NANOELECTRONICS ENGINEER Jann Law DO [facility]-11319 Level 3 Est. Patient 11:04:53 NANOELECTRONICS ENGINEER Tristan Vaughn MD [facility] CPT-99802 Level 4 Est. Patient 09:50:59 CDT Austin Albarado MD [facility]-63481 Level 4 Est. Patient 09:29:00 CDT Austin Albarado MD [facility]-63581 Level 4 Est. Patient 14:23:07 CDT Austin Albarado MD [facility]-22656 Level 4 Est. Patient 14:27:26 CDT Austin Albarado MD [facility]-28863 Level 4 Est. Patient 12:51:43 NANOELECTRONICS ENGINEER Austin Albarado MD [facility] CPT-34047 Level 3 New Patient 14:17:38 NANOELECTRONICS ENGINEER Austin Albarado MD [facility] CPT-28023 Level 3 New Patient 11:28:18 NANOELECTRONICS ENGINEER Austin Albarado MD [facility] Procedures Code Procedure Name Date Entry Date Standard Description CPT-47824 First Vx - Ix admin for Medicare patients 16:00:49 CDT CPT-71371 Fluzone High-Dose Intramuscular Suspension 16:00:49 CDT CPT-G0009 Administration of Pneumococcal Vaccine 13:25:27 CDT CPT-62588 Prevnar 13 Intramuscular Suspension 13:25:27 CDT 09/26 CPT-G0438 Initial Annual Wellness Exam 11:28:26 CDT CPT-54936 Chest 2V Frontal and Lat 15:00:00 NANOELECTRONICS ENGINEER CPT-09478 Breathing Tx 14:49:25 NANOELECTRONICS ENGINEER CPT-06272 Fluzone High Dose 15:08:41 NANOELECTRONICS ENGINEER CPT-78218 Immunization Single Admin 15:08:41 NANOELECTRONICS ENGINEER CPT-09985 Fluzone High Dose 17:31:19 CDT CPT-84207 Administration single or combination vaccine inc oral 17 :31:19 CDT CPT-30840 Venipuncture Draw Fee 11:03:05 CDT CPT-TCMM Transitional Care Mgmt-Moderate 16:32:35 CDT CPT-13459 Chest 2V Frontal and Lat 11:51:09 CDT CPT-G0008 Administration of Influenza Virus Vaccine 15:09:08 CDT CPT-94546 Fluzone High-Dose Intramuscular Suspension 15:09:08 CDT CPT-21460 Administration single or combination vaccine inc oral 17 :07:02 NANOELECTRONICS ENGINEER CPT-02911 Influenza High Dose age 65+ 17:07:02 NANOELECTRONICS ENGINEER
--- OUTSIDE RECORDS SUMMARY | 2017-02-27 21:48 | XMS REPORT ---
Author Author [facility] Medical Staff Organization [facility] Address [address] [place], [place] [id number] Phone [phone] Care Team Providers Care Loss Prevention Consultant Name Role Phone YANDY ALBARADO MD PP [phone] YANDY ALBARADO MD PP [phone] Summary purpose TRANSITION OF CARE AUTO GENERATION Chief Complaint and Reason for Visit Admit Diagnosis 1 OBSTRUCTIVE CHRONIC BRON Problem list No authorized problems tracked for continuity of care are available for this visit. Encounters The following conditions tracked for encounter diagnoses were recorded for this visit: Finding or Diagnosis Status Certainty Chronicity Onset *CHRONIC OBSTRUCTIVE PULMONARY DISEASE Active Medications Home Medications Medication Directions Started Status Source Advair Diskus 500 mcg-50 mcg/dose powder for inhalation 1 puff inhl 2 Times Daily Current ProAir HFA 90 mcg/actuation aerosol inhaler 1-2 puff inhl PRN 4 Times A Day Current DuoNeb 0.5 mg-3 mg(2.5 mg base)/3 mL solution for nebulization 1 applicator inhl PRN 4 Times A Day Current Allergies, adverse reactions, alerts Allergen Category Ingredient Status Reaction Severity Onset Sulfa (Sulfonamide Antibiotics) Drug Allergy Sulfa (Sulfonamide Antibiotics) Confirmed or Verified Immunizations No immunizations recorded for this patient visit Relevant diagnostic tests and/or laboratory data RESULTS [id number]:00 Discharge Summary DISCHARGE SUMMARY ADMISSION DIAGNOSIS: 1. Acute chronic obstructive pulmonary disease exacerbation. 2. Underlying allergies. DISCHARGE DIAGNOSIS: 1. Acute chronic obstructive pulmonary disease exacerbation. 2. Underlying allergies. CONSULTATIONS: None. PROCEDURES: None. HISTORY OF PRESENT ILLNESS: This is a 74-year-old male who has had 2 to 3 days of worsening shortness of breath and cough. He has underlying chronic obstructive pulmonary disease oxygen dependent usually at about 2 liters chronically. He has been having to increase his oxygen. He has had a productive cough. Denies any fevers. Denies any recent illness. He has been eating okay. He reports his activity level has been much less due to the increased shortness of breath. He feels the weather changes and the pollen have worsened his symptoms. HOSPITAL COURSE: The patient was admitted to the hospital and started on IV steroids of Solu-Medrol 125 mg every 8 hours. He was also started on IV Levaquin. He was also put on nasal cannula oxygen which initially was around 4 liters per nasal cannula. He was also put on breathing treatments. The patient did very well with this regimen and continued to show improvement. His lab work while he was here remained normal. With the treatments the patient's lungs improved and physically he was appearing much better. On the morning of 08/18/14 the patient had medically felt much better. He reports he has been able to get up and around. His breathing was unlabored and he was doing well on about 2 to 2.5 liters of oxygen per nasal cannula and felt like usual and ready for discharge to home. DISCHARGE INSTRUCTIONS: DISPOSITION: The patient is being discharged to his home. MEDICATIONS: Levaquin 500 mg daily for 7 days. Prednisone 20 mg 3 tablets for 3 days, 2 tablets for 3 days, 1 tablet for 3 days, 1/2 tablet for 3 days. [place] Thyroid 120 mg daily. Advair 500/50 1 puff twice a day. DuoNeb 4 times daily as needed. Albuterol inhaler 1 to 2 puffs as needed 4 times daily. ACTIVITIES: The patient was advised to rest and stay indoors in a climate-controlled environment. DIET: The patient was advised to have a diet as tolerated. Patient should continue wearing oxygen per nasal cannula at about 2 liters nasal cannula. FOLLOWUP: The patient will follow up with me in 7 to 10 days. MD KRISTEN Franco/annia 08/18/2014 08:25:45/08/18/2014 10:12:05 [facility] [address] [place] [address] <END HEADER> Routine Urinalysis [id number]:45:00 Result Normal Range Units Color YELLOW Clarity Clear Specific [place] 1.025 1.003-1.035 pH 5.5 4.5-8.0 Glucose Negative Bilirubin Negative Ketones Negative Protein Negative Urobilinogen 0.2 0-0.2 Nitrites Negative Blood Negative Leukocytes Negative WBCs 0-5 RBCs 0-5 Blood Cultures [id number]:00:00 Blood Culture Plate Date and Time 08/17/2014 02:03 SourceBLOOD CULTURE REPORT NoGrowth at 1 day. Unless otherwise notified. Final report in 5 Days. Release Date/Time: 08/18/2014 07:36 right ac CULTURE REPORT No growth in 5 days. Release Date/Time: 08/22/2014 07:24 right ac [id number]:00 Blood Culture Plate Date and Time 08/17/2014 02:03 SourceBLOOD CULTURE REPORT NoGrowth at 1 day. Unless otherwise notified. Final report in 5 Days. Release Date/Time: 08/18/2014 07:36 left ac CULTURE REPORT No growth in 5 days. Release Date/Time: 08/22/2014 07:24 left ac Chemistry [id number]:25:00 Result Normal Range Units Sodium 137 134-145 mEq/l Potassium 4.3 3.5-5.1 mEq/l Chloride 101 98-107 mEq/l CO2 27.3 22-28 mEq/l Glucose H 163 70-105 mg/dl BUN H 22 7-18 mg/dl Creatinine 1.13 0.6-1.3 mg/dl Calcium 9.0 8.4-10.2 mg/dl TP - Total Protein 7.6 6.0-8.3 g/dl Albumin 3.6 3.5-5 g/dl Bilirubin - Total 0.3 0.1-1.0 mg/dl AST 24 10-42 IU/L ALT 25 12-65 IU/L ALP 78 39-107 IU/L Osmolality 280.7 280-300 mOsm/L Albumin/Globulin Ratio 0.9 0-8 Anion GAP 8.7 8-16 BUN/Creatinine Ratio 19.5 10-20 Estimated GFR 63 >=60 mL/min/1.7 [id number]:45:00 Result Normal Range Units Sodium 139 134-145 mEq/l Potassium 4.5 3.5-5.1 mEq/l Chloride 101 98-107 mEq/l CO2 H 28.1 22-28 mEq/l Glucose H 140 70-105 mg/dl BUN 18 7-18 mg/dl Creatinine 1.07 0.6-1.3 mg/dl Calcium L 8.3 8.4-10.2 mg/dl TP - Total Protein 7.6 6.0-8.3 g/dl Albumin 3.9 3.5-5 g/dl Bilirubin - Total 0.4 0.1-1.0 mg/dl AST 24 10-42 IU/L ALT 30 12-65 IU/L ALP 81 39-107 IU/L Osmolality 281.7 280-300 mOsm/L Albumin/Globulin Ratio 1.1 0-8 Anion GAP 9.9 8-16 BUN/Creatinine Ratio 16.8 10-20 Estimated GFR 68 >=60 mL/min/1.7 [id number]:55:00 Result Normal Range Units Sodium 143 134-145 mEq/l Potassium 4.5 3.5-5.1 mEq/l Chloride 104 98-107 mEq/l CO2 H 29.5 22-28 mEq/l Glucose 96 70-105 mg/dl BUN H 20 7-18 mg/dl Creatinine 1.18 0.6-1.3 mg/dl Calcium 8.5 8.4-10.2 mg/dl TP - Total Protein 7.5 6.0-8.3 g/dl Albumin 3.7 3.5-5 g/dl Bilirubin - Total 0.4 0.1-1.0 mg/dl AST 24 10-42 IU/L ALT 25 12-65 IU/L ALP 77 39-107 IU/L Osmolality 287.5 280-300 mOsm/L Albumin/Globulin Ratio 1.0 0-8 Anion GAP 9.5 8-16 BUN/Creatinine Ratio 16.9 10-20 Estimated GFR 60 >=60 mL/min/1.7 Lactic Acid 0.6 0.4-2.0 mmol/L Hematology :25:00 Result Normal Range Units WBC 10.6 4.8-10.8 103/uL RBC 5.0 4.7-6.1 106/uL HGB 16.0 13.0-18.0 g/dl HCT 50.7 41.9-52.0 % MCV H 100.8 80-94 FL MCH H 31.8 27-31 pg MCHC L 31.6 33-37 g/dl RDW 14.9 11.5-15.5 % PLT 318 130-400 103/uL MPV H 11.2 7.3-10.4 FL :45:00 Result Normal Range Units WBC H 12.8 4.8-10.8 103/uL RBC 5.1 4.7-6.1 106/uL HGB 16.1 13.0-18.0 g/dl HCT H 52.2 41.9-52.0 % MCV H 102.4 80-94 FL MCH H 31.6 27-31 pg MCHC L 30.8 33-37 g/dl RDW 15.1 11.5-15.5 % PLT 281 130-400 103/uL MPV H 10.9 7.3-10.4 FL Segs H 90.0 40-70 % Lymphs L 7.0 20-40 % [place] 1.0 0-10 % Eos 1.0 0-7 % Baso 1.0 0-2 % [id number]:55:00 Result Normal Range Units WBC H 11.3 4.8-10.8 103/uL RBC 5.1 4.7-6.1 106/uL HGB 16.1 13.0-18.0 g/dl HCT 51.0 41.9-52.0 % MCV H 100.8 80-94 FL MCH H 31.8 27-31 pg MCHC L 31.6 33-37 g/dl RDW 15.2 11.5-15.5 % PLT 359 130-400 103/uL MPV H 10.8 7.3-10.4 FL Segs 40.0 40-70 % Lymphs 35.0 20-40 % [place] 1.0 0-10 % Eos H 23.0 0-7 % Baso 1.0 0-2 % Body Fluid [id number]:45:00 Result Normal Range Units pH 5.5 4.5-8.0 Radiology Results [id number]:25:00 Result Normal Range Units MPV H 11.2 7.3-10.4 FL [id number]:41:00 Chest XRay - Port - 1 View PACs Image DATE OF EXAM: 2014 RAD [id number] 1 VIEW PORT : RADIOLOGY REPORT DATE OF SERVICE: 08/17/14 HISTORY: Patient has shortness of air and cough. PORTABLE ONE VIEW CHEST 0155 HOURS Heart size is borderline enlarged. Mild increased vascularity is seen throughout the lungs especially in upper lobes. No infiltrate is identified. There is no pleural fluid. IMPRESSION: Mild cardiomegaly with suggested vascular congestion of mild to moderate degree. This could be noncardiac in etiology. No definite pneumonia is seen and increased density over the peripheral right lower lobe I believe is due to soft tissue most likely extraneous to the thorax as the increased density seen on a view of the lower chest is not visualized on secondary image which cuts off the lower chest area. Again there is suggestion of some vascular congestion. No previous studies are available for comparative purposes. Raj Moss DO /az 08/17/2014 07:59:00 / 08/17/2014 08:24:58 cc:Dr. Yandy Albarado This document has been electronically Signed by: On: DATE OF EXAM: 2014 RAD [id number] 1 VIEW PORT : RADIOLOGY REPORT DATE OF SERVICE: 08/17/14 HISTORY: Patient has shortness of air and cough. PORTABLE ONE VIEW CHEST 0155 HOURS Heart size is borderline enlarged. Mild increased vascularity is seen throughout the lungs especially in upper lobes. No infiltrate is identified. There is no pleural fluid. IMPRESSION: Mild cardiomegaly with suggested vascular congestion of mild to moderate degree. This could be noncardiac in etiology. No definite pneumonia is seen and increased density over the peripheral right lower lobe I believe is due to soft tissue most likely extraneous to the thorax as the increased density seen on a view of the lower chest is not visualized on secondary image which cuts off the lower chest area. Again there is suggestion of some vascular congestion. No previous studies are available for comparative purposes. DO GERMAINE Normanaz 08/17/2014 07:59:00 / 08/17/2014 08:24:58 cc:Dr. Yandy Albarado This document has been electronically Signed by: RAJ MOSS DO On: 20141:41P EXACERBATION OF COPD Result Amended on 2014-08-17 at 13:41:17. Previous status was ME. EXACERBATION OF COPD [id number]:45:00 Result Normal Range Units MPV H 10.9 7.3-10.4 FL [id number]:55:00 Result Normal Range Units MPV H 10.8 7.3-10.4 FL History of procedures No procedures recorded for this patient visit. Functional status Functional Status Finding Observation Time Hearing Prob Loc none 66-28-615601:16 Vision Problems yes 57-04-272980:16 Vision Correct Dev glasses :16 Ambulation Asst Dev walker Comment: did not bring :16 Range of Motion full :46 Muscle Strength RUE 5 ROM full resist :46 Muscle Strength RLE 5 ROM full resist :46 Muscle Strength LUE 5 ROM full resist :46 Muscle Strength LLE 5 ROM full resist :46 Transfers assist x 1 :46 Ambulation none :46 Balance unsteady :46 Bathing Assistance moderate : Eating Assistance none :29 Dressing Assistance moderate :16 Toileting Assistance moderate : Transfer Assistance moderate :16 Decline Slf Care/Mob yes (consult PT) : Phys Cond Stable no Comment: copd exac :16 Nutrition normal :46 Diet regular :46 Oral Cavity moist and intact :46 Teeth intact :29 Dental Hygiene poor :46 Abdomen Appearance round :46 Abdomen firm :46 Bowel Sounds present :46 NG Tube no :46 Feeding Tube none :46 [place] no :46 Ostomy no :46 Stool other (specify) Comment: none noted this morning :29 Urination normal Comment: per patient :46 Urine Clarity clear :45 Urine Color yellow :45 Quality shortness of breath :46 Cough productive :46 Secretions yes Comment: states not as much as yesterday :46 Secretion Consist thick :46 Secretion Color other (specify) Comment: milky :46 Breath Sounds RUL wheezes :46 Breath Sounds RML coarse :46 Breath Sounds RLL wheezes :46 Breath Sounds TONO coarse :46 Breath Sounds LLL wheezes :46 Airway natural :46 Chest Tube no :46 Oxygen yes :06 Oxygen Mask Type nasal cannula :46 Oxygen Flow Rate 2 :06 C-PAP no :46 BI-PAP no :46 New Infection Comment: exacerbation of COPD :09 Temp >100.4 no :46 Temp <96.8 no :46 Chills with rigors no :46 HR > 90bpm yes :46 Respirations > 20 no :46 Systolic <90 no :46 headache stiff neck no :46 WBC > 00577 no :46 WBC < 4000 no :46 Rapid Resp no :46 IV Site Location Lt forearm 25-40-226537:31 IV Type peripheral 87-95-389515:31 IV Site Information discontinued 46-55-932160:31 IV Site Start Attmpt 1 times Comment: per ems [id number]:37 IV Site Akira 20 39-87-844404:31 IV Site Appearance WNL [id number]:31 IV Site Color clear 69-29-404020:31 IV Site Patent yes :31 Dressing Changed yes :31 Dressing Type gauze 43-87-626681:31 Nursing Note The patient reports he is doing well. He does not report any worsening of symptoms. He is taking all of his medication. He is complimentary of care provided. Nothing further to report. :02 Cognitive Status Finding Observation Time Oriented To Date 5 Yes :[address] 5 Yes :16 Name 3 Objects 3 Yes :16 Name Object in Rm 2 Yes :16 Recall 3 Objects 3 Yes :16 Repeats a Phrase 1 Yes :16 Follows Verbal Direc 3 Yes :16 Follows Written Dire 1 Yes :16 Write a Sentance 1 Yes :16 Draw an Object 1 Yes :16 Mini Mental Total 25 points 08-25-873847:16 Learning Ability comprehends well :44 Neurological no :44 Psychological no :44 Physical no :44 Hearing no :44 Tread Tuber Machine Operator Needed no :44 Sign Language no :44 Emotional no :44 Vision yes :44 [place] no :44 Financial no :44 Vital signs Type Value Date Respiration Rate 18breaths per minute 42-87-683337:06 Pulse 100beats per minute :06 Oxygen Saturation 95% 15-67-152406:06 BP Systolic 111mmHg 10-55-597838:06 BP Diastolic 58mmHg 51-08-357646:06 Temperature 97.1F 82-16-595593:06 Height 69inches 89-28-501813:29 Weight 231.6LB 10-49-383512:29 Social history Type Value Smoking Status CURRENT EVERY DAY SMOKER Treatment Plan No treatment plan text is available for this visit. Hospital discharge instructions Discharge Date/Time 08-18-2014 11:20:00 Accompanied By spouse et daughter Relationship child Dismissal Condition good Disposition on DC home Valuables yes Valuable Type billfold/purse Valuables Returned T patient DC Inst/Educ Give yes Exit Care Educ Given yes Med/Side Effects Rev yes DC Med Rec Rev yes Immun Indicated no PNE Vac current Vaccines Ord Given no Flu Vac 2014 Tetanus Vac unknown Medical Equipment has home 02 Diet Explained yes Follow up appt already scheduled
--- OUTSIDE RECORDS SUMMARY | 2017-02-27 21:49 | XMS REPORT | Clinical Summary ---
Author Author Admin, LEE Organization [facility] Address Unknown Phone Unavailable Allergies, Adverse Reactions, [...] Generic Name NDC Status Provider Patient Instruction LEVAQUIN 500 MG TAB 1 tablet by mouth daily for 10 days. LEVOFLOXACIN 18484990828 Active Simona Galloway APRN Active PREDNISONE 20 MG TAB take 3 tabs daily for 3 days, 2 tabs daily for 3 days, 1 tab daily for 3 days, 1/2 tab daily for 3 days PREDNISONE 25186971527 No Longer Active Simona Galloway APRN Active ZITHROMAX 1 GM ORAL PACK DIRECTED AZITHROMYCIN 96882899197 No Longer Active Simona Galloway APRN Active PREDNISONE 20 MG ORAL TABS 3 TABS PO FOR 3 DAYS,THAN 2 TABS FOR 3 DAYS THAN, 1 TAB FOR 3 DAYS THAN, 1/2 TAB FOR 3 DAYS. PREDNISONE 20856127272 Active Madhavi Fiore Active PREDNISONE 20 MG TAB 2 tabs daily for 4 days, 1 tab daily for 4 days, 1/2 tab daily for 4 days PREDNISONE 38606050326 No Longer Active Austin Albarado MD Active LEVAQUIN 500 MG TAB 1 tablet by mouth daily LEVOFLOXACIN 38230175199 No Longer Active Austin Albarado MD Active PREDNISONE 20 MG TAB take 3 tabs daily for 3 days, 2 tabs daily for 3 days, 1 tab daily for 3 days, 1/2 tab daily for 3 days PREDNISONE 84018843756 No Longer Active Austin Albarado MD Active DOXYCYCLINE HYCLATE 100 MG CAP 1 cap by mouth twice daily DOXYCYCLINE HYCLATE 80398254817 No Longer Active Fiorina Ly [employer]UX KERNEL ENGINEER Active ALBUTEROL SULFATE (2.5 MG/3ML) 0.083% NEBU nebulize 1 vial q 4-6 hours prn shortness of breath ALBUTEROL SULFATE 88786164279 No Longer Active Jillina Ly LINUX KERNEL ENGINEER Active TORSEMIDE 20 MG TABS 1 TAB PO BID TORSEMIDE 70678057371 No Longer Active 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 LINUX KERNEL ENGINEER Active PREDNISONE 20 MG TAB 2 tabs daily for 3 days, 1 tab daily for 3 days, 1/2 tab daily for 2 days PREDNISONE 15238779074 No Longer Active Austin Albarado MD Active LEVOFLOXACIN 500 MG ORAL TABS take 1 tab po qday LEVOFLOXACIN 95728333501 No Longer Active Austin Albarado MD Active PREDNISONE 20 MG TAB 2 tablets today, then 1 tablet by mouth days 2-5 PREDNISONE 98883262521 No Longer Active Austin Albarado MD Active AZITHROMYCIN 500 MG SOLR 1 po q day AZITHROMYCIN 29877491308 No Longer Active Austin Albarado MD Active KEFLEX 500 MG CAP 1 po TID x 7 days CEPHALEXIN 15822742005 No Longer Active Tristan Vaughn MD Active EQL VISION FORMULA TABS 1 TAB PO DAILY MULTIPLE VITAMINS-MINERALS 62864966998 No Longer Active Tristan Vaughn MD Active CHANTIX STARTING MONTH ELVIS 0.5 MG X 11 & 1 MG X 42 TABS 0.5mg daily for 3 days , then 0.5mg BID for 4 days, then 1mg BID VARENICLINE TARTRATE 23353880426 No Longer Active Tristan Vaughn MD Active LEVOTHYROXINE SODIUM 200 MCG TABS 1 TAB PO DAILY LEVOTHYROXINE SODIUM 50654100630 No Longer Active Tristan Vaughn MD Active LIOTHYRONINE SODIUM 50 MCG TABS take 1 tab po qday for hypothyroidism LIOTHYRONINE SODIUM 41054959450 No Longer Active Austin Albarado MD Active SYNTHROID 0.025 MG TAB 1 tablet by mouth daily LEVOTHYROXINE SODIUM 50246876342 No Longer Active Austin Albarado MD Active ARMOUR THYROID 120 MG TABS take 1 tab po qday for hypothyroidism THYROID 97173637437 Active Austin Albarado MD Active FLONASE 50 MCG/ACT SUSP 1 spray each nostril am and hs FLUTICASONE PROPIONATE 44484014300 Active Austin Albarado MD Active ZITHROMAX 1 GM PACK DIRECTED AZITHROMYCIN 44575893788 No Longer Active Austin Albarado MD Active PREDNISONE 20 MG TAB 2 tabs daily for 3 days, 1 tab daily for 3 days, 1/2 tab daily for 2 days PREDNISONE 67388767066 No Longer Active Austin Albarado MD Active ZITHROMAX 250 MG TAB 2 po today, then 1 po q days 2-5 AZITHROMYCIN 86448775928 No Longer Active Austin Albarado MD Active NYSTATIN-TRIAMCINOLONE 001310-6.1 UNIT/GM-% OINT Apply to affected area TID NYSTATIN-TRIAMCINOLONE 46393427500 Active Austin Albarado MD Active IPRATROPIUM-ALBUTEROL 0.5-2.5 (3) MG/3ML SOLN 1 VIAL NEB Q 6 HRS PRN IPRATROPIUM-ALBUTEROL 93630200713 Active Austin Albarado MD Active PROAIR HFA 108 (90 BASE) MCG/ACT AERS take 1-2 puffs q4hrs prn cough/ SOB ALBUTEROL SULFATE 15945703143 Active Austin Albarado MD Active ADVAIR DISKUS 500-50 MCG/DOSE AEPB ONE INH BID FLUTICASONE- SALMETEROL 30373838005 Active Austin Albarado MD Active ZITHROMAX 1 GM PACK DIRECTED ZITHROMAX 1 GM PACK 777328 AZITHROMYCIN Inactive SYNTHROID 0.025 MG TAB 1 tablet by mouth daily SYNTHROID 0.025 MG TAB 214696 LEVOTHYROXINE SODIUM Inactive LIOTHYRONINE SODIUM 50 MCG TABS take 1 tab po qday for hypothyroidism LIOTHYRONINE SODIUM 50 MCG TABS 156770 LIOTHYRONINE SODIUM Inactive LEVOTHYROXINE SODIUM 200 MCG TABS 1 TAB PO DAILY LEVOTHYROXINE SODIUM 200 MCG TABS 174494 LEVOTHYROXINE SODIUM Inactive CHANTIX STARTING MONTH ELVIS [...] po q day AZITHROMYCIN 500 MG SOLR 156133 AZITHROMYCIN Inactive PREDNISONE 20 MG TAB 2 tablets today, then 1 tablet by mouth days 2-5 PREDNISONE 20 MG TAB 617085 PREDNISONE Inactive TORSEMIDE 20 MG TABS 1 TAB PO BID TORSEMIDE 20 MG TABS 290270 TORSEMIDE Inactive ALBUTEROL SULFATE (2.5 MG/3ML) 0.083% NEBU nebulize 1 vial q 4-6 hours prn shortness of breath ALBUTEROL SULFATE (2.5 MG/3ML) 0.083% NEBU 632386 ALBUTEROL SULFATE Inactive LEVAQUIN 500 MG TAB 1 tablet by mouth daily LEVAQUIN 500 MG TAB 230951 LEVOFLOXACIN Inactive PREDNISONE 20 MG TAB 2 tabs daily for 4 days, 1 tab daily for 4 days, 1/2 tab daily for 4 days PREDNISONE 20 MG TAB 271473 PREDNISONE Inactive ZITHROMAX 1 GM ORAL PACK DIRECTED ZITHROMAX 1 GM ORAL PACK 723638 AZITHROMYCIN Inactive ZITHROMAX 250 MG TAB 2 po today, then 1 po q days 2-5 ZITHROMAX 250 MG TAB 7796574 AZITHROMYCIN Inactive PREDNISONE 20 MG TAB 2 tabs daily for 3 days, 1 tab daily for 3 days, 1/2 tab daily for 2 days PREDNISONE 20 MG TAB 366337 PREDNISONE Inactive KEFLEX 500 MG CAP 1 po TID x 7 days KEFLEX 500 MG CAP 513694 CEPHALEXIN Inactive LEVOFLOXACIN 500 MG ORAL TABS take 1 tab po qday LEVOFLOXACIN 500 MG ORAL TABS 227439 LEVOFLOXACIN Inactive PREDNISONE 20 MG TAB 2 tabs daily for 3 days, 1 tab daily for 3 days, 1/2 tab daily for 2 days PREDNISONE 20 MG TAB 198059 PREDNISONE Inactive DOXYCYCLINE HYCLATE 100 MG CAP 1 cap by mouth twice daily DOXYCYCLINE HYCLATE 100 MG CAP 0585615 DOXYCYCLINE HYCLATE Inactive PREDNISONE 20 MG TAB take 3 tabs daily for 3 days, 2 tabs daily for 3 days, 1 tab daily for 3 days, 1/2 tab daily for 3 days PREDNISONE 20 MG TAB 254362 PREDNISONE Inactive PREDNISONE 20 MG TAB take 3 tabs daily for 3 days, 2 tabs daily for 3 days, 1 tab daily for 3 days, 1/2 tab daily for 3 days PREDNISONE 20 MG TAB 633307 PREDNISONE Inactive Advance Directives Directive Description Start Date PERMISSION TO SHARE Immunizations Vaccine Administration Date Value Standard Description pneumococcal immunization administered Pneumovax 23 [[id number]] pneumococcal polysaccharide vaccine, 23 valent Vital Signs Date Name Value Unit Range Description blood pressure, diastolic - 8462-4 61 mm[Hg] [...] E&M - 3141-9 239 [lb_av] Weight Measured blood pressure, diastolic - 8462-4 72 mm[Hg] BP fernandes blood pressure, systolic - 8480-6 145 mm[Hg] BP sys pulse rate E&M - 8867-4 102 /min Heart rate temperature E&M 97.9 [degF] Body temperature weight E&M - 3141-9 239 [lb_av] Weight Measured blood pressure, diastolic - 8462-4 102 mm[Hg] BP fernandes blood pressure, systolic - 8480-6 127 mm[Hg] BP sys pulse rate E&M - 8867-4 121 /min Heart rate temperature E&M 97.5 [degF] Body temperature weight E&M - 3141-9 235 [lb_av] Weight Measured blood pressure, diastolic - 8462-4 69 mm[Hg] BP fernandes blood pressure, systolic - 8480-6 107 mm[Hg] BP sys pulse rate E&M - 8867-4 118 /min Heart rate temperature E&M 98.4 [degF] Body temperature weight E&M - 3141-9 232 [lb_av] Weight Measured blood pressure, diastolic - 8462-4 73 mm[Hg] BP fernandes blood pressure, systolic - 8480-6 120 mm[Hg] BP sys pulse rate E&M - 8867-4 123 /min Heart rate temperature E&M 98.0 [degF] Body temperature weight E&M - 3141-9 233 [lb_av] Weight Measured blood pressure, diastolic - 8462-4 72 mm[Hg] BP fernandes blood pressure, systolic - 8480-6 119 mm[Hg] BP sys pulse rate E&M - 8867-4 118 /min Heart rate temperature E&M 98.7 [degF] Body temperature weight E&M - 3141-9 234 [lb_av] Weight Measured Diagnostic Results Date Name Value Unit Range Description Lab Report: CBC W/DIFF, Comp. Metabolic Panel, B-Type Natriuretic Peptid ... - Chemistry sodium, serum 140 mmol/L 802-589 3505/03/09 potassium, serum 4.9 mmol/L 3.5-5.2 chloride, serum 101 mmol/L 98-107 carbon dioxide, venous blood 29.2 mmol/L 21.0-32.0 blood glucose 87 mg/dL 65-110 urea nitrogen, blood 20 mg/dL 7-18 creatinine, serum 1.10 mg/dL 0.60-1.30 alanine aminotransferase (SGPT), serum 29 U/L 12-78 aspartate aminotransferase (SGOT), serum 26 U/L 15-37 calcium, serum 8.5 mg/dL 8.5-10.1 bilirubin, serum, total 0.40 mg/dL 0.00-1.00 Lab Report: CBC W/DIFF, Comp. Metabolic Panel, B-Type Natriuretic Peptid ... - Hematology leukocyte count, blood 12.8 10^3/MM^3 10*3/mm3 4.6-10.2 neutrophils as percent of blood leukocytes 64.4 % 42.2-75.2 monocytes as percent of blood leukocytes 7.1 % 1.7-9.3 lymphocytes as percent of blood leukocytes 21.7 % 20.5-51.1 erythrocyte (RBC) count 5.20 10^6/MM^3 10*6/mm3 4.69-6.13 hemoglobin, blood 17.0 g/dL 13.5-17.5 hematocrit, blood 50.2 % 41.0-53.0 mean corpuscular volume, RBC 97 fL 80-97 mean corpuscular hemoglobin, RBC 32.6 pg 27.0-31.2 mean corpuscular hemoglobin concentration, RBC 33.8 G/DL % 31.8- 35.4 red blood cell distribution width 15.2 % 11.6-14.8 platelet count 347 10^3/MM^3 10*3/mm3 142-424 Lab Report: Lipid Panel, Prostatic Specific Ag, Free Thyroxine (L), Thyr ... - Chemistry cholesterol, serum 136 mg/dL 878-173 6336/10/06 triglyceride, serum, fasting 30 mg/dL 30-200 HDL cholesterol, serum 57 mg/dL 32-96 LDL cholesterol, serum 73 mg/dL 0-130 prostate specific antigen 1.45 ng/mL 0.00-4.00 thyroxine, serum, free 0.80 ng/dL 0.76-1.46 TSH 14.03 m[iU]/mL 0.36-3.74 Encounters Code Encounter Date Provider Facility CPT-47071 Level 4 Est. Patient 21:00:28 CDT Austin Albarado MD [facility] CPT-11879 Level 4 Est. Patient 10:03:37 CDT Austin Albarado MD [facility] CPT-31319 Level 3 Est. Patient 10:50:28 FINANCIAL PROCESSING CLERK Austin Albarado MD [facility] CPT-46911 Level 4 Est. Patient 21:31:41 FINANCIAL PROCESSING CLERK Austin Albarado MD [facility] CPT-47283 Level 3 Est. Patient 16:22:54 FINANCIAL PROCESSING CLERK Jann Law DO [facility] CPT-62304 Level 3 Est. Patient 11:04:53 FINANCIAL PROCESSING CLERK Tristan Vaughn MD [facility] CPT-90509 Level 4 Est. Patient 09:50:59 CDT Austin Albarado MD [facility] CPT-15287 Level 4 Est. Patient 09:29:00 CDT Austin Albarado MD [facility] CPT-12230 Level 4 Est. Patient 14:23:07 CDT Austin Albarado MD [facility] CPT-60036 Level 4 Est. Patient 14:27:26 CDT Austin Albarado MD [facility] CPT-71508 Level 4 Est. Patient 12:51:43 FINANCIAL PROCESSING CLERK Austin Albarado MD [facility] CPT-97179 Level 3 New Patient 14:17:38 FINANCIAL PROCESSING CLERK Austin Albarado MD [facility] CPT-90015 Level 3 New Patient 11:28:18 FINANCIAL PROCESSING CLERK Austin Albarado MD [facility] Procedures Code Procedure Name Date Entry Date Standard Description CPT-23672 Chest 2V Frontal and Lat 15:00:00 FINANCIAL PROCESSING CLERK CPT-15765 Breathing Tx 14:49:25 FINANCIAL PROCESSING CLERK CPT-24357 Fluzone High Dose 15:08:41 FINANCIAL PROCESSING CLERK CPT-65726 Immunization Single Admin 15:08:41 FINANCIAL PROCESSING CLERK CPT-92991 Fluzone High Dose 17:31:19 CDT CPT-35475 Administration single or combination vaccine inc oral 17 :31:19 CDT CPT-78784 Venipuncture Draw Fee 11:03:05 CDT CPT-TCMM Transitional Care Mgmt-Moderate 16:32:35 CDT CPT-31627 Chest 2V Frontal and Lat 11:51:09 CDT CPT-G0008 Administration of Influenza Virus Vaccine 15:09:08 CDT CPT-87695 Fluzone High-Dose Intramuscular Suspension 15:09:08 CDT CPT-09111 Administration single or combination vaccine inc oral 17 :07:02 FINANCIAL PROCESSING CLERK CPT-32610 Influenza High Dose age 65+ 17:07:02 FINANCIAL PROCESSING CLERK
--- OUTSIDE RECORDS SUMMARY | 2017-02-27 21:49 | XMS REPORT | Clinical Summary ---
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 J44.1 ALBUTEROL SULFATE 58943147646 Active Nella José LPN Active IPRATROPIUM BROMIDE 0.02 % INH SOLN 1 q 6 hr PRN Dx: J44.1 IPRATROPIUM BROMIDE 73859270538 Active Nella José LPN Active PROAIR HFA 108 (90 BASE) MCG/ACT AERS take 1-2 puffs q 4-6 hrs prn cough/ SOB ALBUTEROL SULFATE 91762816921 Active Nella José, MARGARINE [employer] OPERATOR Active IPRATROPIUM-ALBUTEROL 0.5-2.5 (3) MG/3ML SOLN 1 VIAL NEB Q 4-6 HRS PRN 04/18 IPRATROPIUM-ALBUTEROL 22431171981 No Longer Active Austin Albarado MD Active ATIVAN 0.5 MG TAB 1 po QD PRN Anxiety LORAZEPAM 57982869168 Active Simona Galloway APRN Active PREDNISONE 20 MG ORAL TABS 3 tabs po for 3 days than,2 tabs po for 3 days,1 tab po for 3 days, 1/2 tab po for 3 days. PREDNISONE 56938982256 No Longer Active Simona Galloway APRN Active LEVAQUIN 500 MG TAB 1 tablet by mouth daily LEVOFLOXACIN 11000020777 No Longer Active Simona Galloway APRN Active PREDNISONE 20 MG TAB take 3 tabs daily for 3 days, 2 tabs daily for 3 days, 1 tab daily for 3 days, 1/2 tab daily for 3 days PREDNISONE 36840554902 No Longer Active Austin Albarado MD Active LEVAQUIN 500 MG TAB 1 tablet by mouth daily LEVOFLOXACIN 36322691366 No Longer Active Madhavi Macarena Active FUROSEMIDE 20 MG TABS take 1 tab po BID for swelling FUROSEMIDE 32442901966 Active Austin Albarado MD Active AMOXICILLIN 500 MG ORAL TABS Take one by mouth 3 times daily, morning, afternoon and evening.] AMOXICILLIN 45811657095 No Longer Active Garcia Storud MD Active PREDNISONE 20 MG ORAL TABS 3 daily for 3 days than, 2 tabs daily for 3 days than, 2 tabs daily for 3 days than, 1 tab daily for 3 days than 1/2 tab daily for 3 days. PREDNISONE 99058673840 No Longer Active Tracie Arrington APRN Active FLUTICASONE PROPIONATE 50 MCG/ACT SUSP 1 to 2 sprays each nostril daily 08/21 FLUTICASONE PROPIONATE 78062855327 Active Simona Galloway APRN Active PREDNISONE 10 MG TAB take 1 tab po qday for severe COPD PREDNISONE 72645567772 Active Austin Albarado MD Active PREDNISONE 20 MG ORAL TABS 3 TABS PO FOR 3 DAYS,THAN 2 TABS FOR 3 DAYS THAN, 1 TAB FOR 3 DAYS THAN, 1/2 TAB FOR 3 DAYS. PREDNISONE 63002643936 No Longer Active Austin Albarado MD Active LEVAQUIN 500 MG TAB 1 tablet by mouth daily for 10 days. LEVOFLOXACIN 42825500335 No Longer Active Austin Albarado MD Active PREDNISONE 20 MG TAB take 3 tabs daily for 3 days, 2 tabs daily for 3 days, 1 tab daily for 3 days, 1/2 tab daily for 3 days PREDNISONE 28313015603 No Longer Active Simona Galloway APRN Active ZITHROMAX 1 GM ORAL PACK DIRECTED AZITHROMYCIN 53618645891 No Longer Active Simona Galloway APRN Active PREDNISONE 20 MG TAB 2 tabs daily for 4 days, 1 tab daily for 4 days, 1/2 tab daily for 4 days PREDNISONE 27163402047 No Longer Active Austin Albarado MD Active LEVAQUIN 500 MG TAB 1 tablet by mouth daily LEVOFLOXACIN 80803375376 No Longer Active Austin Albarado MD Active PREDNISONE 20 MG TAB take 3 tabs daily for 3 days, 2 tabs daily for 3 days, 1 tab daily for 3 days, 1/2 tab daily for 3 days PREDNISONE 17509621394 No Longer Active Austin Albarado MD Active DOXYCYCLINE HYCLATE 100 MG CAP 1 cap by mouth twice daily DOXYCYCLINE HYCLATE 18985938500 No Longer Active Esperanza Modi APRN Active ALBUTEROL SULFATE (2.5 MG/3ML) 0.083% NEBU nebulize 1 vial q 4-6 hours prn shortness of breath ALBUTEROL SULFATE 50306955960 No Longer Active Esperanza Modi APRN Active TORSEMIDE 20 MG TABS 1 TAB PO BID TORSEMIDE 47781567015 No Longer Active Esperanza Modi APRN Active PREDNISONE 20 MG TAB 2 tabs daily for 3 days, 1 tab daily for 3 days, 1/2 tab daily for 2 days PREDNISONE 82950722015 No Longer Active Austin Albarado MD Active LEVOFLOXACIN 500 MG ORAL TABS take 1 tab po qday LEVOFLOXACIN 84282083076 No Longer Active Austin Albarado MD Active PREDNISONE 20 MG TAB 2 tablets today, then 1 tablet by mouth days 2-5 PREDNISONE 37464432255 No Longer Active Austin Albarado MD Active AZITHROMYCIN 500 MG SOLR 1 po q day AZITHROMYCIN 73775736654 No Longer Active Austin Albarado MD Active KEFLEX 500 MG CAP 1 po TID x 7 days CEPHALEXIN 71742745043 No Longer Active Tristan Vaughn MD Active EQL VISION FORMULA TABS 1 TAB PO DAILY MULTIPLE VITAMINS-MINERALS 57633630664 No Longer Active Tristan Vaughn MD Active CHANTIX STARTING MONTH ELVIS 0.5 MG X 11 & 1 MG X 42 TABS 0.5mg daily for 3 days , then 0.5mg BID for 4 days, then 1mg BID VARENICLINE TARTRATE 20839514253 No Longer Active Tristan Vaughn MD Active LEVOTHYROXINE SODIUM 200 MCG TABS 1 TAB PO DAILY LEVOTHYROXINE SODIUM 00921488384 No Longer Active Tristan Vaughn MD Active LIOTHYRONINE SODIUM 50 MCG TABS take 1 tab po qday for hypothyroidism LIOTHYRONINE SODIUM 05844259744 No Longer Active Austin Albarado MD Active SYNTHROID 0.025 MG TAB 1 tablet by mouth daily LEVOTHYROXINE SODIUM 87415870919 No Longer Active Austin Albarado MD Active ARMOUR THYROID 120 MG TABS take 1 tab po qday for hypothyroidism THYROID 01788092847 Active Austin Albarado MD Active FLONASE 50 MCG/ACT SUSP 1 spray each nostril am and hs FLUTICASONE PROPIONATE Active Simona Galloway APRN Active ZITHROMAX 1 GM PACK DIRECTED AZITHROMYCIN 12156547779 No Longer Active Austin Albarado MD Active PREDNISONE 20 MG TAB 2 tabs daily for 3 days, 1 tab daily for 3 days, 1/2 tab daily for 2 days PREDNISONE 66544508362 No Longer Active Austin Albarado MD Active ZITHROMAX 250 MG TAB 2 po today, then 1 po q days 2-5 AZITHROMYCIN 02546651012 No Longer Active Austin Albarado MD Active NYSTATIN-TRIAMCINOLONE 954616-0.1 UNIT/GM-% OINT Apply to affected area TID NYSTATIN-TRIAMCINOLONE 89362299525 Active Austin Albarado MD Active ADVAIR DISKUS 500-50 MCG/DOSE AEPB ONE INH BID FLUTICASONE- SALMETEROL 56949819428 Active Austin Albarado MD Active ZITHROMAX 1 GM PACK DIRECTED ZITHROMAX 1 GM PACK 327362 AZITHROMYCIN Inactive SYNTHROID 0.025 MG TAB 1 tablet by mouth daily SYNTHROID 0.025 MG TAB 228216 LEVOTHYROXINE SODIUM Inactive LIOTHYRONINE SODIUM 50 MCG TABS take 1 tab po qday for hypothyroidism LIOTHYRONINE SODIUM 50 MCG TABS 738262 LIOTHYRONINE SODIUM Inactive LEVOTHYROXINE SODIUM 200 MCG TABS 1 TAB PO DAILY LEVOTHYROXINE SODIUM 200 MCG TABS 137060 LEVOTHYROXINE SODIUM Inactive CHANTIX STARTING MONTH ELVIS [...] po q day AZITHROMYCIN 500 MG SOLR 83494650330 AZITHROMYCIN Inactive PREDNISONE 20 MG TAB 2 tablets today, then 1 tablet by mouth days 2-5 PREDNISONE 20 MG TAB 584155 PREDNISONE Inactive TORSEMIDE 20 MG TABS 1 TAB PO BID TORSEMIDE 20 MG TABS 056600 TORSEMIDE Inactive ALBUTEROL SULFATE (2.5 MG/3ML) 0.083% NEBU nebulize 1 vial q 4-6 hours prn shortness of breath ALBUTEROL SULFATE (2.5 MG/3ML) 0.083% NEBU 360448 ALBUTEROL SULFATE Inactive LEVAQUIN 500 MG TAB 1 tablet by mouth daily LEVAQUIN 500 MG TAB 981832 LEVOFLOXACIN Inactive PREDNISONE 20 MG TAB 2 tabs daily for 4 days, 1 tab daily for 4 days, 1/2 tab daily for 4 days PREDNISONE 20 MG TAB 905624 PREDNISONE Inactive ZITHROMAX 1 GM ORAL PACK DIRECTED ZITHROMAX 1 GM ORAL PACK 560502 AZITHROMYCIN Inactive LEVAQUIN 500 MG TAB 1 tablet by mouth daily for 10 days. LEVAQUIN 500 MG TAB 005259 LEVOFLOXACIN Inactive PREDNISONE 20 MG ORAL TABS 3 TABS PO FOR 3 DAYS,THAN 2 TABS FOR 3 DAYS THAN, 1 TAB FOR 3 DAYS THAN, 1/2 TAB FOR 3 DAYS. PREDNISONE 20 MG ORAL TABS 511347 PREDNISONE Inactive PREDNISONE 20 MG ORAL TABS 3 daily for 3 days than, 2 tabs daily for 3 days than, 2 tabs daily for 3 days than, 1 tab daily for 3 days than 1/2 tab daily for 3 days. PREDNISONE 20 MG ORAL TABS 836529 PREDNISONE Inactive AMOXICILLIN 500 MG ORAL TABS Take one by mouth 3 times daily, morning, afternoon and evening.] AMOXICILLIN 500 MG ORAL TABS 039204 AMOXICILLIN Inactive LEVAQUIN 500 MG TAB 1 tablet by mouth daily LEVAQUIN 500 MG TAB 964780 LEVOFLOXACIN Inactive LEVAQUIN 500 MG TAB 1 tablet by mouth daily LEVAQUIN 500 MG TAB 899104 LEVOFLOXACIN Inactive PREDNISONE 20 MG ORAL TABS 3 tabs po for 3 days than,2 tabs po for 3 days,1 tab po for 3 days, 1/2 tab po for 3 days. PREDNISONE 20 MG ORAL TABS 609573 PREDNISONE Inactive ZITHROMAX 250 MG TAB 2 po today, then 1 po q days 2-5 ZITHROMAX 250 MG TAB 7899908 AZITHROMYCIN Inactive PREDNISONE 20 MG TAB 2 tabs daily for 3 days, 1 tab daily for 3 days, 1/2 tab daily for 2 days PREDNISONE 20 MG TAB 921087 PREDNISONE Inactive KEFLEX 500 MG CAP 1 po TID x 7 days KEFLEX 500 MG CAP 640472 CEPHALEXIN Inactive LEVOFLOXACIN 500 MG ORAL TABS take 1 tab po qday LEVOFLOXACIN 500 MG ORAL TABS 394559 LEVOFLOXACIN Inactive PREDNISONE 20 MG TAB 2 tabs daily for 3 days, 1 tab daily for 3 days, 1/2 tab daily for 2 days PREDNISONE 20 MG TAB 106040 PREDNISONE Inactive DOXYCYCLINE HYCLATE 100 MG CAP 1 cap by mouth twice daily DOXYCYCLINE HYCLATE 100 MG CAP 0598219 DOXYCYCLINE HYCLATE Inactive PREDNISONE 20 MG TAB take 3 tabs daily for 3 days, 2 tabs daily for 3 days, 1 tab daily for 3 days, 1/2 tab daily for 3 days PREDNISONE 20 MG TAB 667894 PREDNISONE Inactive PREDNISONE 20 MG TAB take 3 tabs daily for 3 days, 2 tabs daily for 3 days, 1 tab daily for 3 days, 1/2 tab daily for 3 days PREDNISONE 20 MG TAB 151292 PREDNISONE Inactive PREDNISONE 20 MG TAB take 3 tabs daily for 3 days, 2 tabs daily for 3 days, 1 tab daily for 3 days, 1/2 tab daily for 3 days PREDNISONE 20 MG TAB 643652 PREDNISONE Inactive Advance Directives Directive Description Start [...] Peptide - Chemistry sodium, serum 140 mmol/L 829-652 7941/02/09 carbon dioxide, venous blood 39.2 mmol/L 21.0-32.0 [...] 43.52 m[iU]/mL 0.36-3.74 sodium, serum 140 mmol/L 802-469 3528/04/06 carbon dioxide, venous blood 36.3 mmol/L 21.0-32.0 potassium, serum 4.9 mmol/L 3.5-5.2 chloride, serum 100 mmol/L 98-107 blood glucose 62 mg/dL 65-110 urea nitrogen, blood 24 mg/dL 7-18 creatinine, serum 1.09 mg/dL 0.55-1.30 alanine aminotransferase (SGPT), serum 44 U/L 12-78 aspartate aminotransferase (SGOT), serum 25 U/L 15-37 calcium, serum 8.7 mg/dL 8.5-10.1 bilirubin, serum, total 0.50 mg/dL 0.00-1.00 cholesterol, serum 189 mg/dL 942-254 1609/04/06 triglyceride, serum, fasting 117 mg/dL 30-200 HDL [...] [phone] Encounters Code Encounter Date Provider Facility CPT-85146 Level 4 Est. Patient 17:54:41 [employer] Austin Albarado MD [facility]-83136 Level 4 Est. Patient 16:11:14 [employer] Austin Albarado MD [facility]-25247 Level 4 Est. Patient 23:08:56 CDT Austin Albarado MD [facility]-14143 Level 4 Est. Patient 13:27:28 CDT Garcia Stroud MD [facility]-20011 Level 4 Est. Patient 10:51:20 CDT Austin Albarado MD [facility]-15431 Level 4 Est. Patient 20:09:43 [employer] Austin Albarado MD [facility]-45788 Level 4 Est. Patient 21:00:28 CDT Austin Albarado MD [facility] CPT-47522 Level 4 Est. Patient 10:03:37 CDT Austin Albarado MD [facility] CPT-97312 Level 3 Est. Patient 10:50:28 [employer] Austin Albarado MD [facility]-25029 Level 4 Est. Patient 21:31:41 [employer] Austin Albarado MD [facility] CPT-56508 Level 3 Est. Patient 16:22:54 [employer] Jann Law DO [facility] CPT-25282 Level 3 Est. Patient 11:04:53 [employer] Tristan Vaughn MD [facility] CPT-39164 Level 4 Est. Patient 09:50:59 CDT Austin Albarado MD [facility]-07910 Level 4 Est. Patient 09:29:00 CDT Austin Albarado MD [facility]-99884 Level 4 Est. Patient 14:23:07 CDT Austin Albarado MD [facility] CPT-62429 Level 4 Est. Patient 14:27:26 CDT Austin Albarado MD [facility] CPT-12431 Level 4 Est. Patient 12:51:43 [employer] Austin Albarado MD [facility] CPT-45835 Level 3 New Patient 14:17:38 [employer] Austin Albarado MD [facility] CPT-96078 Level 3 New Patient 11:28:18 [employer] Austin Albarado MD [facility] Procedures Code Procedure Name Date Entry Date Standard Description CPT-TCMM Transitional Care Mgmt-Moderate 14:53:36 [employer] CPT-52052 No Charge Offi Visit 10:19:33 [employer] CPT-38042 Chest 2V Frontal and Lat - XRAY USE ONLY 15:01:41 [employer] CPT-46791 First Vx - Ix admin for Medicare patients 16:00:49 CDT CPT-50493 Fluzone High-Dose Intramuscular Suspension 16:00:49 CDT CPT-G0009 Administration of Pneumococcal Vaccine 13:25:27 CDT CPT-98689 Prevnar 13 Intramuscular Suspension 13:25:27 CDT 09/26 CPT-G0438 Initial Annual Wellness Exam 11:28:26 CDT CPT-51254 Chest 2V Frontal and Lat 15:00:00 [employer] CPT-65141 Breathing Tx 14:49:25 [employer] CPT-15717 Fluzone High Dose 15:08:41 [employer] CPT-42053 Immunization Single Admin 15:08:41 [employer] CPT-32525 Fluzone High Dose 17:31:19 CDT CPT-32204 Administration single or combination vaccine inc oral 17 :31:19 CDT CPT-95123 Venipuncture Draw Fee 11:03:05 CDT CPT-TCMM Transitional Care Mgmt-Moderate 16:32:35 CDT CPT-39558 Chest 2V Frontal and Lat 11:51:09 CDT CPT-G0008 Administration of Influenza Virus Vaccine 15:09:08 CDT CPT-17000 Fluzone High-Dose Intramuscular Suspension 15:09:08 CDT CPT-02985 Administration single or combination vaccine inc oral 17 :07:02 [employer] CPT-51487 Influenza High Dose age 65+ 17:07:02 [employer]
--- OUTSIDE RECORDS SUMMARY | 2017-02-27 21:49 | XMS REPORT ---
Author Author [facility] Organization [facility] Address [address], [place] [id number] Phone [phone] Care Team Providers Care Lab Support Technician Name Role Phone YANDY MARY MD PP [phone] Summary purpose TRANSITION OF CARE AUTO GENERATION Chief Complaint and Reason for Visit Admit Diagnosis 1 SHORTNESS OF BREATH Problem list No authorized problems tracked for continuity of care are available for this visit. Encounters No authorized problems tracked for encounter diagnoses are available for this visit. Medications No home medications recorded for this patient visit Allergies, adverse reactions, alerts Allergen Category Ingredient Status Reaction Severity Onset Sulfa (Sulfonamide Antibiotics) Drug Allergy Sulfa (Sulfonamide Antibiotics) Confirmed or Verified Immunizations No immunizations recorded for this patient visit Relevant diagnostic tests and/or laboratory data No authorized results are available for this patient visit History of procedures Procedure Code Code Type Description Date Performed Performing Physician 73277 CPT-4 COMPREHEN METABOLIC PANEL 08-17-2014 RAJ KING 19259 CPT-4 URINALYSIS, AUTO W/SCOPE 08-17-2014 RAJ KING 43461 CPT-4 BLOOD CULTURE FOR BACTERIA 08-17-2014 RAJ KING 48973 CPT-4 ASSAY OF LACTIC ACID 08-17-2014 RAJ KING 83760 CPT-4 CHEST X-RAY 08-17-2014 RAJ KING J1956 CPT-4 LEVOFLOXACIN INJECTION 08-17-2014 YANDY MARY 94714 CPT-4 ROUTINE VENIPUNCTURE 08-17-2014 RAJ KING 07522 CPT-4 ROUTINE VENIPUNCTURE 08-17-2014 RAJ KING 62631 CPT-4 COMPLETE CBC, AUTOMATED 08-17-2014 RAJ KING 81703 CPT-4 BL SMEAR W/DIFF WBC COUNT 08-17-2014 RAJ KING 98413 CPT-4 EMERGENCY DEPT VISIT 08-17-2014 RAJ KING 67195 CPT-4 EMERGENCY DEPT VISIT 08-17-2014 RAJ KING 92610 CPT-4 THER/PROPH/DIAG IV INF, INIT 08-17-2014 RAJ CAPONENER 68703 CPT-4 BLOOD CULTURE FOR BACTERIA 08-17-2014 RAJ KING Functional status No functional or cognitive status observations are available for this visit. Vital signs No authorized vital signs are available for this visit. Social history No Social History or smoking status observations were recorded for this visit. ( Unknown if ever smoked.) Treatment Plan No treatment plan text is available for this visit. Hospital discharge instructions No discharge instruction text is available for this visit.
--- OUTSIDE RECORDS SUMMARY | 2017-02-27 21:50 | XMS REPORT | Clinical Summary ---
Author Author Admin, E Organization [facility] Address Unknown Phone Unavailable Allergies, Adverse Reactions, [...] Coronary atherosclerosis of unspecified type of vessel, [place] or graft Peripheral edema 782.3 Active Austin Albarado MD Edema Shortness of breath 786.05 Active Simona Galloway APRN Shortness of breath Hypotension 458.9 Active Simona Galloway APRN Hypotension, unspecified Shingles 053.9 Active Simona Galloway APRN Herpes zoster without mention of complication U R I ICD-465.9 Inactive Asutin Albarado MD 06/13 Bronchitis-Acute ICD-466.0 Inactive Austin Albarado MD Medication List Medication Instructions Start Date Stop Date Generic Name NDC Status Provider Patient Instruction PREDNISONE 20 MG ORAL TABS 3 tabs po for 3 days than,2 tabs po for 3 days,1 tab po for 3 days, 1/2 tab po for 3 days. PREDNISONE 55009933337 No Longer Active Simona Galloway APRN Active LEVAQUIN 500 MG TAB 1 tablet by mouth daily LEVOFLOXACIN 36636776796 No Longer Active Simona Galloway APRN Active PREDNISONE 20 MG TAB take 3 tabs daily for 3 days, 2 tabs daily for 3 days, 1 tab daily for 3 days, 1/2 tab daily for 3 days PREDNISONE 53278650364 No Longer Active Austin Albarado MD Active LEVAQUIN 500 MG TAB 1 tablet by mouth daily LEVOFLOXACIN 56980458343 No Longer Active Madhavi Fiore Active FUROSEMIDE 20 MG TABS take 1 tab po BID for swelling FUROSEMIDE 73784454243 Active Austin Albarado MD Active AMOXICILLIN 500 MG ORAL TABS Take one by mouth 3 times daily, morning, afternoon and evening.] AMOXICILLIN 34316423034 No Longer Active Garcia Stroud MD Active PREDNISONE 20 MG ORAL TABS 3 daily for 3 days than, 2 tabs daily for 3 days than, 2 tabs daily for 3 days than, 1 tab daily for 3 days than 1/2 tab daily for 3 days. PREDNISONE 13202645845 No Longer Active Tracie Arrington APRN Active FLUTICASONE PROPIONATE 50 MCG/ACT SUSP 1 to 2 sprays each nostril daily 08/21 FLUTICASONE PROPIONATE 06747594238 Active Simona Galloway APRN Active PREDNISONE 10 MG TAB take 1 tab po qday for severe COPD PREDNISONE 78561329806 Active Austin Albarado MD Active PREDNISONE 20 MG ORAL TABS 3 TABS PO FOR 3 DAYS,THAN 2 TABS FOR 3 DAYS THAN, 1 TAB FOR 3 DAYS THAN, 1/2 TAB FOR 3 DAYS. PREDNISONE 66087579120 No Longer Active Austin Albarado MD Active LEVAQUIN 500 MG TAB 1 tablet by mouth daily for 10 days. LEVOFLOXACIN 76181771881 No Longer Active Austin Albarado MD Active PREDNISONE 20 MG TAB take 3 tabs daily for 3 days, 2 tabs daily for 3 days, 1 tab daily for 3 days, 1/2 tab daily for 3 days PREDNISONE 93676265294 No Longer Active Simona Galloway APRN Active ZITHROMAX 1 GM ORAL PACK DIRECTED AZITHROMYCIN 58007760729 No Longer Active Simona Galloway APRN Active PREDNISONE 20 MG TAB 2 tabs daily for 4 days, 1 tab daily for 4 days, 1/2 tab daily for 4 days PREDNISONE 71389739595 No Longer Active Austin Albarado MD Active LEVAQUIN 500 MG TAB 1 tablet by mouth daily LEVOFLOXACIN 39272520787 No Longer Active Austin Albarado MD Active PREDNISONE 20 MG TAB take 3 tabs daily for 3 days, 2 tabs daily for 3 days, 1 tab daily for 3 days, 1/2 tab daily for 3 days PREDNISONE 08872760158 No Longer Active Austin Albarado MD Active DOXYCYCLINE HYCLATE 100 MG CAP 1 cap by mouth twice daily DOXYCYCLINE HYCLATE 43483327156 No Longer Active 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 SIGN ARTIST Active ALBUTEROL SULFATE (2.5 MG/3ML) 0.083% NEBU nebulize 1 vial q 4-6 hours prn shortness of breath ALBUTEROL SULFATE 27872512106 No Longer Active 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 SIGN ARTIST Active TORSEMIDE 20 MG TABS 1 TAB PO BID TORSEMIDE 97134987138 No Longer Active 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 SIGN ARTIST Active PREDNISONE 20 MG TAB 2 tabs daily for 3 days, 1 tab daily for 3 days, 1/2 tab daily for 2 days PREDNISONE 60001131251 No Longer Active Austin Albarado MD Active LEVOFLOXACIN 500 MG ORAL TABS take 1 tab po qday LEVOFLOXACIN 58812108653 No Longer Active Austin Albarado MD Active PREDNISONE 20 MG TAB 2 tablets today, then 1 tablet by mouth days 2-5 PREDNISONE 91874887603 No Longer Active Austin Albarado MD Active AZITHROMYCIN 500 MG SOLR 1 po q day AZITHROMYCIN 25499920710 No Longer Active Austin Albarado MD Active KEFLEX 500 MG CAP 1 po TID x 7 days CEPHALEXIN 94005929312 No Longer Active Tristan Vaughn MD Active EQL VISION FORMULA TABS 1 TAB PO DAILY MULTIPLE VITAMINS-MINERALS 94286073545 No Longer Active Tristan Vaughn MD Active CHANTIX STARTING MONTH ELVIS 0.5 MG X 11 & 1 MG X 42 TABS 0.5mg daily for 3 days , then 0.5mg BID for 4 days, then 1mg BID VARENICLINE TARTRATE 47513721813 No Longer Active Tristan Vaughn MD Active LEVOTHYROXINE SODIUM 200 MCG TABS 1 TAB PO DAILY LEVOTHYROXINE SODIUM 88979201764 No Longer Active Tristan Vaughn MD Active LIOTHYRONINE SODIUM 50 MCG TABS take 1 tab po qday for hypothyroidism LIOTHYRONINE SODIUM 10705496061 No Longer Active Austin Albarado MD Active SYNTHROID 0.025 MG TAB 1 tablet by mouth daily LEVOTHYROXINE SODIUM 27030857505 No Longer Active Austin Albarado MD Active ARMOUR THYROID 120 MG TABS take 1 tab po qday for hypothyroidism THYROID 11980946657 Active Austin Albarado MD Active FLONASE 50 MCG/ACT SUSP 1 spray each nostril am and hs FLUTICASONE PROPIONATE Active Simona Galloway APRN Active ZITHROMAX 1 GM PACK DIRECTED AZITHROMYCIN 45536496946 No Longer Active Austin Albarado MD Active PREDNISONE 20 MG TAB 2 tabs daily for 3 days, 1 tab daily for 3 days, 1/2 tab daily for 2 days PREDNISONE 85571038953 No Longer Active Austin Albarado MD Active ZITHROMAX 250 MG TAB 2 po today, then 1 po q days 2-5 AZITHROMYCIN 60583230368 No Longer Active Austin Albarado MD Active NYSTATIN-TRIAMCINOLONE 385500-4.1 UNIT/GM-% OINT Apply to affected area TID NYSTATIN-TRIAMCINOLONE 54254868767 Active Austin Albarado MD Active IPRATROPIUM-ALBUTEROL 0.5-2.5 (3) MG/3ML SOLN 1 VIAL NEB Q 6 HRS PRN IPRATROPIUM-ALBUTEROL 44985190681 Active Simona Nilesh SIGN ARTIST Active PROAIR HFA 108 (90 BASE) MCG/ACT AERS take 1-2 puffs q4hrs prn cough/ SOB ALBUTEROL SULFATE 14208248133 Active Austin Albarado MD Active ADVAIR DISKUS 500-50 MCG/DOSE AEPB ONE INH BID FLUTICASONE- SALMETEROL 99979425518 Active Austin Albarado MD Active ZITHROMAX 1 GM PACK DIRECTED ZITHROMAX 1 GM PACK 286413 AZITHROMYCIN Inactive SYNTHROID 0.025 MG TAB 1 tablet by mouth daily SYNTHROID 0.025 MG TAB 527025 LEVOTHYROXINE SODIUM Inactive LIOTHYRONINE SODIUM 50 MCG TABS take 1 tab po qday for hypothyroidism LIOTHYRONINE SODIUM 50 MCG TABS 232898 LIOTHYRONINE SODIUM Inactive LEVOTHYROXINE SODIUM 200 MCG TABS 1 TAB PO DAILY LEVOTHYROXINE SODIUM 200 MCG TABS 974595 LEVOTHYROXINE SODIUM Inactive CHANTIX STARTING MONTH ELVIS [...] po q day AZITHROMYCIN 500 MG SOLR 11397344344 AZITHROMYCIN Inactive PREDNISONE 20 MG TAB 2 tablets today, then 1 tablet by mouth days 2-5 PREDNISONE 20 MG TAB 472472 PREDNISONE Inactive TORSEMIDE 20 MG TABS 1 TAB PO BID TORSEMIDE 20 MG TABS 412256 TORSEMIDE Inactive ALBUTEROL SULFATE (2.5 MG/3ML) 0.083% NEBU nebulize 1 vial q 4-6 hours prn shortness of breath ALBUTEROL SULFATE (2.5 MG/3ML) 0.083% NEBU 611970 ALBUTEROL SULFATE Inactive LEVAQUIN 500 MG TAB 1 tablet by mouth daily LEVAQUIN 500 MG TAB 346784 LEVOFLOXACIN Inactive PREDNISONE 20 MG TAB 2 tabs daily for 4 days, 1 tab daily for 4 days, 1/2 tab daily for 4 days PREDNISONE 20 MG TAB 572878 PREDNISONE Inactive ZITHROMAX 1 GM ORAL PACK DIRECTED ZITHROMAX 1 GM ORAL PACK 830608 AZITHROMYCIN Inactive LEVAQUIN 500 MG TAB 1 tablet by mouth daily for 10 days. LEVAQUIN 500 MG TAB 320407 LEVOFLOXACIN Inactive PREDNISONE 20 MG ORAL TABS 3 TABS PO FOR 3 DAYS,THAN 2 TABS FOR 3 DAYS THAN, 1 TAB FOR 3 DAYS THAN, 1/2 TAB FOR 3 DAYS. PREDNISONE 20 MG ORAL TABS 254018 PREDNISONE Inactive PREDNISONE 20 MG ORAL TABS 3 daily for 3 days than, 2 tabs daily for 3 days than, 2 tabs daily for 3 days than, 1 tab daily for 3 days than 1/2 tab daily for 3 days. PREDNISONE 20 MG ORAL TABS 368557 PREDNISONE Inactive AMOXICILLIN 500 MG ORAL TABS Take one by mouth 3 times daily, morning, afternoon and evening.] AMOXICILLIN 500 MG ORAL TABS 696281 AMOXICILLIN Inactive LEVAQUIN 500 MG TAB 1 tablet by mouth daily LEVAQUIN 500 MG TAB 491837 LEVOFLOXACIN Inactive LEVAQUIN 500 MG TAB 1 tablet by mouth daily LEVAQUIN 500 MG TAB 954448 LEVOFLOXACIN Inactive PREDNISONE 20 MG ORAL TABS 3 tabs po for 3 days than,2 tabs po for 3 days,1 tab po for 3 days, 1/2 tab po for 3 days. PREDNISONE 20 MG ORAL TABS 224149 PREDNISONE Inactive ZITHROMAX 250 MG TAB 2 po today, then 1 po q days 2-5 ZITHROMAX 250 MG TAB 2665176 AZITHROMYCIN Inactive PREDNISONE 20 MG TAB 2 tabs daily for 3 days, 1 tab daily for 3 days, 1/2 tab daily for 2 days PREDNISONE 20 MG TAB 759088 PREDNISONE Inactive KEFLEX 500 MG CAP 1 po TID x 7 days KEFLEX 500 MG CAP 434589 CEPHALEXIN Inactive LEVOFLOXACIN 500 MG ORAL TABS take 1 tab po qday LEVOFLOXACIN 500 MG ORAL TABS 830826 LEVOFLOXACIN Inactive PREDNISONE 20 MG TAB 2 tabs daily for 3 days, 1 tab daily for 3 days, 1/2 tab daily for 2 days PREDNISONE 20 MG TAB 457710 PREDNISONE Inactive DOXYCYCLINE HYCLATE 100 MG CAP 1 cap by mouth twice daily DOXYCYCLINE HYCLATE 100 MG CAP 0446832 DOXYCYCLINE HYCLATE Inactive PREDNISONE 20 MG TAB take 3 tabs daily for 3 days, 2 tabs daily for 3 days, 1 tab daily for 3 days, 1/2 tab daily for 3 days PREDNISONE 20 MG TAB 126134 PREDNISONE Inactive PREDNISONE 20 MG TAB take 3 tabs daily for 3 days, 2 tabs daily for 3 days, 1 tab daily for 3 days, 1/2 tab daily for 3 days PREDNISONE 20 MG TAB 292889 PREDNISONE Inactive PREDNISONE 20 MG TAB take 3 tabs daily for 3 days, 2 tabs daily for 3 days, 1 tab daily for 3 days, 1/2 tab daily for 3 days PREDNISONE 20 MG TAB 584174 PREDNISONE Inactive Advance Directives Directive Description Start [...] Peptide - Chemistry sodium, serum 140 mmol/L 739-809 2110/02/09 carbon dioxide, venous blood 39.2 mmol/L 21.0-32.0 [...] 43.52 m[iU]/mL 0.36-3.74 sodium, serum 140 mmol/L 176-460 5860/04/06 carbon dioxide, venous blood 36.3 mmol/L 21.0-32.0 potassium, serum 4.9 mmol/L 3.5-5.2 chloride, serum 100 mmol/L 98-107 blood glucose 62 mg/dL 65-110 urea nitrogen, blood 24 mg/dL 7-18 creatinine, serum 1.09 mg/dL 0.55-1.30 alanine aminotransferase (SGPT), serum 44 U/L 12-78 aspartate aminotransferase (SGOT), serum 25 U/L 15-37 calcium, serum 8.7 mg/dL 8.5-10.1 bilirubin, serum, total 0.50 mg/dL 0.00-1.00 cholesterol, serum 189 mg/dL 627-195 0834/04/06 triglyceride, serum, fasting 117 mg/dL 30-200 HDL [...] 142-424 Encounters Code Encounter Date Provider Facility CPT-63192 Level 4 Est. Patient 17:54:41 STRATEGIC MARKETING MANAGER Austin Albarado MD [facility] CPT-00672 Level 4 Est. Patient 16:11:14 STRATEGIC MARKETING MANAGER Austin Albarado MD [facility] CPT-16108 Level 4 Est. Patient 23:08:56 CDT Austin Albarado MD [facility] CPT-73729 Level 4 Est. Patient 13:27:28 CDT Garcia Stroud MD [facility] CPT-37720 Level 4 Est. Patient 10:51:20 CDT Austin Albarado MD [facility] CPT-47527 Level 4 Est. Patient 20:09:43 STRATEGIC MARKETING MANAGER Austin Albarado MD [facility] CPT-68542 Level 4 Est. Patient 21:00:28 CDT Austin Albarado MD [facility] CPT-48867 Level 4 Est. Patient 10:03:37 CDT Austin Albarado MD [facility] CPT-32279 Level 3 Est. Patient 10:50:28 STRATEGIC MARKETING MANAGER Austin Albarado MD [facility] CPT-32209 Level 4 Est. Patient 21:31:41 STRATEGIC MARKETING MANAGER Austin Albarado MD [facility] CPT-53360 Level 3 Est. Patient 16:22:54 STRATEGIC MARKETING MANAGER Jann Law DO [facility] CPT-97996 Level 3 Est. Patient 11:04:53 STRATEGIC MARKETING MANAGER Tristan Vaughn MD [facility] CPT-60029 Level 4 Est. Patient 09:50:59 CDT Austin Albarado MD [facility] CPT-41542 Level 4 Est. Patient 09:29:00 CDT Austin Albarado MD [facility] CPT-16182 Level 4 Est. Patient 14:23:07 CDT Austin Albarado MD [facility] CPT-94648 Level 4 Est. Patient 14:27:26 CDT Austin Albarado MD [facility] CPT-43774 Level 4 Est. Patient 12:51:43 STRATEGIC MARKETING MANAGER Austin Albarado MD [facility] CPT-67493 Level 3 New Patient 14:17:38 STRATEGIC MARKETING MANAGER Austin Albarado MD [facility] CPT-88684 Level 3 New Patient 11:28:18 STRATEGIC MARKETING MANAGER Austin Albarado MD [facility] Procedures Code Procedure Name Date Entry Date Standard Description CPT-91454 No Charge Offi Visit 10:19:33 STRATEGIC MARKETING MANAGER CPT-17631 Chest 2V Frontal and Lat - XRAY USE ONLY 15:01:41 STRATEGIC MARKETING MANAGER CPT-48195 First Vx - Ix admin for Medicare patients 16:00:49 CDT CPT-94012 Fluzone High-Dose Intramuscular Suspension 16:00:49 CDT CPT-G0009 Administration of Pneumococcal Vaccine 13:25:27 CDT CPT-41174 Prevnar 13 Intramuscular Suspension 13:25:27 CDT 09/26 CPT-G0438 Initial Annual Wellness Exam 11:28:26 CDT CPT-23997 Chest 2V Frontal and Lat 15:00:00 STRATEGIC MARKETING MANAGER CPT-54978 Breathing Tx 14:49:25 STRATEGIC MARKETING MANAGER CPT-95318 Fluzone High Dose 15:08:41 STRATEGIC MARKETING MANAGER CPT-33387 Immunization Single Admin 15:08:41 STRATEGIC MARKETING MANAGER CPT-10261 Fluzone High Dose 17:31:19 CDT CPT-52124 Administration single or combination vaccine inc oral 17 :31:19 CDT CPT-10022 Venipuncture Draw Fee 11:03:05 CDT CPT-TCMM Transitional Care Mgmt-Moderate 16:32:35 CDT CPT-50680 Chest 2V Frontal and Lat 11:51:09 CDT CPT-G0008 Administration of Influenza Virus Vaccine 15:09:08 CDT CPT-57980 Fluzone High-Dose Intramuscular Suspension 15:09:08 CDT CPT-47237 Administration single or combination vaccine inc oral 17 :07:02 STRATEGIC MARKETING MANAGER CPT-64496 Influenza High Dose age 65+ 17:07:02 STRATEGIC MARKETING MANAGER
--- OUTSIDE RECORDS SUMMARY | 2017-02-27 21:50 | XMS REPORT | Clinical Summary ---
Author Author Admin, LEE Organization [facility] Address Unknown Phone Unavailable Allergies, Adverse Reactions, [...] Instruction PREDNISONE 20 MG ORAL TABS 3 daily for 3 days than, 2 tabs daily for 3 days than, 2 tabs daily for 3 days than, 1 tab daily for 3 days than 1/2 tab daily for 3 days. PREDNISONE 88491971841 Active Madhavi Fiore Active PREDNISONE 20 MG ORAL TABS 3 TABS PO FOR 3 DAYS,THAN 2 TABS FOR 3 DAYS THAN, 1 TAB FOR 3 DAYS THAN, 1/2 TAB FOR 3 DAYS. PREDNISONE 01383728588 No Longer Active Austin Albarado MD Active LEVAQUIN 500 MG TAB 1 tablet by mouth daily for 10 days. LEVOFLOXACIN 62176662156 No Longer Active Austin Albarado MD Active PREDNISONE 20 MG TAB take 3 tabs daily for 3 days, 2 tabs daily for 3 days, 1 tab daily for 3 days, 1/2 tab daily for 3 days PREDNISONE 93994805026 No Longer Active Simona Galloway APRN Active ZITHROMAX 1 GM ORAL PACK DIRECTED AZITHROMYCIN 85988642339 No Longer Active Simona Galloway APRN Active PREDNISONE 20 MG TAB 2 tabs daily for 4 days, 1 tab daily for 4 days, 1/2 tab daily for 4 days PREDNISONE 86765824426 No Longer Active Austin Albarado MD Active LEVAQUIN 500 MG TAB 1 tablet by mouth daily LEVOFLOXACIN 93794259328 No Longer Active Austin Albarado MD Active PREDNISONE 20 MG TAB take 3 tabs daily for 3 days, 2 tabs daily for 3 days, 1 tab daily for 3 days, 1/2 tab daily for 3 days PREDNISONE 07353023654 No Longer Active Austin Albarado MD Active DOXYCYCLINE HYCLATE 100 MG CAP 1 cap by mouth twice daily DOXYCYCLINE HYCLATE 96024945033 No Longer Active 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 [employer] Active ALBUTEROL SULFATE (2.5 MG/3ML) 0.083% NEBU nebulize 1 vial q 4-6 hours prn shortness of breath ALBUTEROL SULFATE 38702952320 No Longer Active 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 [employer] Active TORSEMIDE 20 MG TABS 1 TAB PO BID TORSEMIDE 55478311413 No Longer Active 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 [employer] Active PREDNISONE 20 MG TAB 2 tabs daily for 3 days, 1 tab daily for 3 days, 1/2 tab daily for 2 days PREDNISONE 11566930789 No Longer Active Austin Albarado MD Active LEVOFLOXACIN 500 MG ORAL TABS take 1 tab po qday LEVOFLOXACIN 08974325275 No Longer Active Austin Albarado MD Active PREDNISONE 20 MG TAB 2 tablets today, then 1 tablet by mouth days 2-5 PREDNISONE 00341399102 No Longer Active Austin Albarado MD Active AZITHROMYCIN 500 MG SOLR 1 po q day AZITHROMYCIN 96470891081 No Longer Active Austin Albarado MD Active KEFLEX 500 MG CAP 1 po TID x 7 days CEPHALEXIN 31921472481 No Longer Active Tristan Vaughn MD Active EQL VISION FORMULA TABS 1 TAB PO DAILY MULTIPLE VITAMINS-MINERALS 64069259969 No Longer Active Tristan Vaughn MD Active CHANTIX STARTING MONTH ELVIS 0.5 MG X 11 & 1 MG X 42 TABS 0.5mg daily for 3 days , then 0.5mg BID for 4 days, then 1mg BID VARENICLINE TARTRATE 05668994797 No Longer Active Tristan Vaughn MD Active LEVOTHYROXINE SODIUM 200 MCG TABS 1 TAB PO DAILY LEVOTHYROXINE SODIUM 99461241280 No Longer Active Tristan Vaughn MD Active LIOTHYRONINE SODIUM 50 MCG TABS take 1 tab po qday for hypothyroidism LIOTHYRONINE SODIUM 38219033827 No Longer Active Austin Albarado MD Active SYNTHROID 0.025 MG TAB 1 tablet by mouth daily LEVOTHYROXINE SODIUM 18947571940 No Longer Active Austin Albarado MD Active ARMOUR THYROID 120 MG TABS take 1 tab po qday for hypothyroidism THYROID 32372233545 Active Austin Albarado MD Active FLONASE 50 MCG/ACT SUSP 1 spray each nostril am and hs FLUTICASONE PROPIONATE Active Simona Galloway [employer] Active ZITHROMAX 1 GM PACK DIRECTED AZITHROMYCIN 18216745191 No Longer Active Austin Albarado MD Active PREDNISONE 20 MG TAB 2 tabs daily for 3 days, 1 tab daily for 3 days, 1/2 tab daily for 2 days PREDNISONE 99752248496 No Longer Active Austin Albarado MD Active ZITHROMAX 250 MG TAB 2 po today, then 1 po q days 2-5 AZITHROMYCIN 64775390681 No Longer Active Austin Albarado MD Active NYSTATIN-TRIAMCINOLONE 522373-1.1 UNIT/GM-% OINT Apply to affected area TID NYSTATIN-TRIAMCINOLONE 69999488209 Active Austin Albarado MD Active IPRATROPIUM-ALBUTEROL 0.5-2.5 (3) MG/3ML SOLN 1 VIAL NEB Q 6 HRS PRN IPRATROPIUM-ALBUTEROL 06790083915 Active Austin Albarado MD Active PROAIR HFA 108 (90 BASE) MCG/ACT AERS take 1-2 puffs q4hrs prn cough/ SOB ALBUTEROL SULFATE 85380822608 Active Austin Albarado MD Active ADVAIR DISKUS 500-50 MCG/DOSE AEPB ONE INH BID FLUTICASONE- SALMETEROL 01482518894 Active Austin Albarado MD Active ZITHROMAX 1 GM PACK DIRECTED ZITHROMAX 1 GM PACK 537228 AZITHROMYCIN Inactive SYNTHROID 0.025 MG TAB 1 tablet by mouth daily SYNTHROID 0.025 MG TAB 225154 LEVOTHYROXINE SODIUM Inactive LIOTHYRONINE SODIUM 50 MCG TABS take 1 tab po qday for hypothyroidism LIOTHYRONINE SODIUM 50 MCG TABS 562790 LIOTHYRONINE SODIUM Inactive LEVOTHYROXINE SODIUM 200 MCG TABS 1 TAB PO DAILY LEVOTHYROXINE SODIUM 200 MCG TABS 503690 LEVOTHYROXINE SODIUM Inactive CHANTIX STARTING MONTH ELVIS [...] po q day AZITHROMYCIN 500 MG SOLR 91975190196 AZITHROMYCIN Inactive PREDNISONE 20 MG TAB 2 tablets today, then 1 tablet by mouth days 2-5 PREDNISONE 20 MG TAB 491942 PREDNISONE Inactive TORSEMIDE 20 MG TABS 1 TAB PO BID TORSEMIDE 20 MG TABS 986023 TORSEMIDE Inactive ALBUTEROL SULFATE (2.5 MG/3ML) 0.083% NEBU nebulize 1 vial q 4-6 hours prn shortness of breath ALBUTEROL SULFATE (2.5 MG/3ML) 0.083% [facility] 098869 ALBUTEROL SULFATE Inactive LEVAQUIN 500 MG TAB 1 tablet by mouth daily LEVAQUIN 500 MG TAB 760409 LEVOFLOXACIN Inactive PREDNISONE 20 MG TAB 2 tabs daily for 4 days, 1 tab daily for 4 days, 1/2 tab daily for 4 days PREDNISONE 20 MG TAB 067802 PREDNISONE Inactive ZITHROMAX 1 GM ORAL PACK DIRECTED ZITHROMAX 1 GM ORAL PACK 021975 AZITHROMYCIN Inactive LEVAQUIN 500 MG TAB 1 tablet by mouth daily for 10 days. LEVAQUIN 500 MG TAB 785788 LEVOFLOXACIN Inactive PREDNISONE 20 MG ORAL TABS 3 TABS PO FOR 3 DAYS,THAN 2 TABS FOR 3 DAYS THAN, 1 TAB FOR 3 DAYS THAN, 1/2 TAB FOR 3 DAYS. PREDNISONE 20 MG ORAL TABS 921534 PREDNISONE Inactive ZITHROMAX 250 MG TAB 2 po today, then 1 po q days 2-5 ZITHROMAX 250 MG TAB 2795834 AZITHROMYCIN Inactive PREDNISONE 20 MG TAB 2 tabs daily for 3 days, 1 tab daily for 3 days, 1/2 tab daily for 2 days PREDNISONE 20 MG TAB 842657 PREDNISONE Inactive KEFLEX 500 MG CAP 1 po TID x 7 days KEFLEX 500 MG CAP 325005 CEPHALEXIN Inactive LEVOFLOXACIN 500 MG ORAL TABS take 1 tab po qday LEVOFLOXACIN 500 MG ORAL TABS 436372 LEVOFLOXACIN Inactive PREDNISONE 20 MG TAB 2 tabs daily for 3 days, 1 tab daily for 3 days, 1/2 tab daily for 2 days PREDNISONE 20 MG TAB 330552 PREDNISONE Inactive DOXYCYCLINE HYCLATE 100 MG CAP 1 cap by mouth twice daily DOXYCYCLINE HYCLATE 100 MG CAP 3781889 DOXYCYCLINE HYCLATE Inactive PREDNISONE 20 MG TAB take 3 tabs daily for 3 days, 2 tabs daily for 3 days, 1 tab daily for 3 days, 1/2 tab daily for 3 days PREDNISONE 20 MG TAB 748874 PREDNISONE Inactive PREDNISONE 20 MG TAB take 3 tabs daily for 3 days, 2 tabs daily for 3 days, 1 tab daily for 3 days, 1/2 tab daily for 3 days PREDNISONE 20 MG TAB 176328 PREDNISONE Inactive Advance Directives Directive Description Start [...] ... - Chemistry cholesterol, serum 136 mg/dL 566-371 1406/10/06 triglyceride, serum, fasting 30 mg/dL 30-200 HDL cholesterol, serum 57 mg/dL 32-96 LDL cholesterol, serum 73 mg/dL 0-130 prostate specific antigen 1.45 ng/mL 0.00-4.00 thyroxine, serum, free 0.80 ng/dL 0.76-1.46 TSH 14.03 m[iU]/mL 0.36-3.74 Encounters Code Encounter Date Provider Facility CPT-86276 Level 4 Est. Patient 20:09:43 PUBLIC RELATIONS REPRESENTATIVE Austin Albarado MD [facility] CPT-58267 Level 4 Est. Patient 21:00:28 CDT Austin Albarado MD [facility] CPT-93968 Level 4 Est. Patient 10:03:37 CDT Austin Albarado MD [facility] CPT-44680 Level 3 Est. Patient 10:50:28 PUBLIC RELATIONS REPRESENTATIVE Austin Albarado MD [facility] CPT-40418 Level 4 Est. Patient 21:31:41 PUBLIC RELATIONS REPRESENTATIVE Austin Albarado MD [facility] CPT-34290 Level 3 Est. Patient 16:22:54 PUBLIC RELATIONS REPRESENTATIVE Jann Law DO [facility] CPT-61850 Level 3 Est. Patient 11:04:53 PUBLIC RELATIONS REPRESENTATIVE Tristan Vaughn MD [facility] CPT-07036 Level 4 Est. Patient 09:50:59 CDT Austin Albarado MD [facility] CPT-87365 Level 4 Est. Patient 09:29:00 CDT Austin Albarado MD [facility] CPT-89034 Level 4 Est. Patient 14:23:07 CDT Austin Albarado MD [facility] CPT-55124 Level 4 Est. Patient 14:27:26 CDT Austin Albarado MD [facility] CPT-67294 Level 4 Est. Patient 12:51:43 PUBLIC RELATIONS REPRESENTATIVE Austin Albarado MD [facility] CPT-64640 Level 3 New Patient 14:17:38 PUBLIC RELATIONS REPRESENTATIVE Austin Albarado MD [facility] CPT-43670 Level 3 New Patient 11:28:18 PUBLIC RELATIONS REPRESENTATIVE Austin Albarado MD [facility] Procedures Code Procedure Name Date Entry Date Standard Description CPT-93493 Chest 2V Frontal and Lat 15:00:00 PUBLIC RELATIONS REPRESENTATIVE CPT-91528 Breathing Tx 14:49:25 PUBLIC RELATIONS REPRESENTATIVE CPT-42808 Fluzone High Dose 15:08:41 PUBLIC RELATIONS REPRESENTATIVE CPT-69587 Immunization Single Admin 15:08:41 PUBLIC RELATIONS REPRESENTATIVE CPT-12144 Fluzone High Dose 17:31:19 CDT CPT-20700 Administration single or combination vaccine inc oral 17 :31:19 CDT CPT-60100 Venipuncture Draw Fee 11:03:05 CDT CPT-TCMM Transitional Care Mgmt-Moderate 16:32:35 CDT CPT-13428 Chest 2V Frontal and Lat 11:51:09 CDT CPT-G0008 Administration of Influenza Virus Vaccine 15:09:08 CDT CPT-73323 Fluzone High-Dose Intramuscular Suspension 15:09:08 CDT CPT-27805 Administration single or combination vaccine inc oral 17 :07:02 PUBLIC RELATIONS REPRESENTATIVE CPT-18866 Influenza High Dose age 65+ 17:07:02 PUBLIC RELATIONS REPRESENTATIVE
--- OUTSIDE RECORDS SUMMARY | 2017-02-27 21:51 | XMS REPORT | Clinical Summary ---
Author Author Admin, E Organization [employer] Address Unknown Phone Unavailable Allergies, Adverse Reactions, [...] Coronary atherosclerosis of unspecified type of vessel, chemehuevi or graft Peripheral edema 782.3 Active Austin [...] Q 6 hrs prn DX: J44.9 IPRATROPIUM-ALBUTEROL 75079419603 Active Mackenzie Sher RMA Active IPRATROPIUM BROMIDE 0.02 % INH SOLN 1 q 6 hr PRN Dx: J44.1 12/29 IPRATROPIUM BROMIDE 22749452775 No Longer Active Mackenzie Christos RMA Active ACYCLOVIR 400 MG TABS 1 pill three times daily ACYCLOVIR 37045018589 No Longer Active Austin Albarado MD Active POTASSIUM CHLORIDE ER 20 MEQ ORAL CR-TABS 1 po BID along with the lasix 12/24 POTASSIUM CHLORIDE 94391960278 Active Austin Albarado MD Active FUROSEMIDE 40 MG TAB 1 tablet by mouth BID for swelling FUROSEMIDE 70802328961 Active Austin Albarado MD Active CELEXA 20 MG TABS 1 tablet by mouth daily CITALOPRAM HYDROBROMIDE 73077215190 Active Austin Albarado MD Active KEFLEX 500 MG CAP 1 po BID x 7 days CEPHALEXIN 09129215489 No Longer Active Mica Sneed Active KEFLEX 500 MG CAP 1 po BID x 7 days CEPHALEXIN 24182620816 No Longer Active Simona Galloway APRN Active ACYCLOVIR 400 MG TABS 1 pill three times daily ACYCLOVIR 16613816459 No Longer Active Austin Albarado MD Active ACYCLOVIR 400 MG TABS 1 pill three times daily ACYCLOVIR 24469049531 No Longer Active Austin Albarado MD Active ALBUTEROL SULFATE 0.083 % NEBU SOLN one vial per nebulizer every 4 hours as needed Dx. J44.1 ALBUTEROL SULFATE 24298348380 Active Austin Albarado MD Active PROAIR HFA 108 (90 BASE) MCG/ACT AERS take 1-2 puffs q 4-6 hrs prn cough/ SOB ALBUTEROL SULFATE 45215732027 Active Nella José LPN Active IPRATROPIUM-ALBUTEROL 0.5-2.5 (3) MG/3ML SOLN 1 VIAL NEB Q 4-6 HRS PRN 04/18 IPRATROPIUM-ALBUTEROL 16145857462 No Longer Active Austin Albarado MD Active ATIVAN 0.5 MG TAB 1 po QD PRN Anxiety LORAZEPAM 94895416240 Active Austin Albarado MD Active PREDNISONE 20 MG ORAL TABS 3 tabs po for 3 days than,2 tabs po for 3 days,1 tab po for 3 days, 1/2 tab po for 3 days. PREDNISONE 55790416744 No Longer Active Simona Galloway APRN Active LEVAQUIN 500 MG TAB 1 tablet by mouth daily LEVOFLOXACIN 82630429183 No Longer Active Simona Galloway APRN Active PREDNISONE 20 MG TAB take 3 tabs daily for 3 days, 2 tabs daily for 3 days, 1 tab daily for 3 days, 1/2 tab daily for 3 days PREDNISONE 45882420876 No Longer Active Austin Albarado MD Active LEVAQUIN 500 MG TAB 1 tablet by mouth daily LEVOFLOXACIN 42610110000 No Longer Active Madhavi Macarena Active FUROSEMIDE 20 MG TABS take 1 tab po BID for swelling FUROSEMIDE 40452333891 Active Austin Albarado MD Active AMOXICILLIN 500 MG ORAL TABS Take one by mouth 3 times daily, morning, afternoon and evening.] AMOXICILLIN 40759290057 No Longer Active Garcia Stroud MD Active PREDNISONE 20 MG ORAL TABS 3 daily for 3 days than, 2 tabs daily for 3 days than, 2 tabs daily for 3 days than, 1 tab daily for 3 days than 1/2 tab daily for 3 days. PREDNISONE 10892101181 No Longer Active Tracie Arrington APRN Active FLUTICASONE PROPIONATE 50 MCG/ACT SUSP 1 to 2 sprays each nostril daily 08/21 FLUTICASONE PROPIONATE 18772675144 Active Austin Albarado MD Active PREDNISONE 10 MG TAB take 1 tab po qday for severe COPD PREDNISONE 06985107850 Active Austin Albarado MD Active PREDNISONE 20 MG ORAL TABS 3 TABS PO FOR 3 DAYS,THAN 2 TABS FOR 3 DAYS THAN, 1 TAB FOR 3 DAYS THAN, 1/2 TAB FOR 3 DAYS. PREDNISONE 78921027666 No Longer Active Asutin Albarado MD Active LEVAQUIN 500 MG TAB 1 tablet by mouth daily for 10 days. LEVOFLOXACIN 96885871994 No Longer Active Austin Albarado MD Active PREDNISONE 20 MG TAB take 3 tabs daily for 3 days, 2 tabs daily for 3 days, 1 tab daily for 3 days, 1/2 tab daily for 3 days PREDNISONE 67647381720 No Longer Active Simona Galloway APRN Active ZITHROMAX 1 GM ORAL PACK DIRECTED AZITHROMYCIN 52912634003 No Longer Active Simona Galloway APRN Active PREDNISONE 20 MG TAB 2 tabs daily for 4 days, 1 tab daily for 4 days, 1/2 tab daily for 4 days PREDNISONE 10850904529 No Longer Active Austin Albarado MD Active LEVAQUIN 500 MG TAB 1 tablet by mouth daily LEVOFLOXACIN 78042729176 No Longer Active Austin Albarado MD Active PREDNISONE 20 MG TAB take 3 tabs daily for 3 days, 2 tabs daily for 3 days, 1 tab daily for 3 days, 1/2 tab daily for 3 days PREDNISONE 15749055760 No Longer Active Austin Albarado MD Active DOXYCYCLINE HYCLATE 100 MG CAP 1 cap by mouth twice daily DOXYCYCLINE HYCLATE 28318744122 No Longer Active Esperanza Modi APRN Active ALBUTEROL SULFATE (2.5 MG/3ML) 0.083% NEBU nebulize 1 vial q 4-6 hours prn shortness of breath ALBUTEROL SULFATE 59242521432 No Longer Active Esperanza Modi APRN Active TORSEMIDE 20 MG TABS 1 TAB PO BID TORSEMIDE 40627749188 No Longer Active Esperanza Modi JESSI Active PREDNISONE 20 MG TAB 2 tabs daily for 3 days, 1 tab daily for 3 days, 1/2 tab daily for 2 days PREDNISONE 25195406519 No Longer Active Austin Albarado MD Active LEVOFLOXACIN 500 MG ORAL TABS take 1 tab po qday LEVOFLOXACIN 01013098124 No Longer Active Austin Albarado MD Active PREDNISONE 20 MG TAB 2 tablets today, then 1 tablet by mouth days 2-5 PREDNISONE 92559623830 No Longer Active Austin Albarado MD Active AZITHROMYCIN 500 MG SOLR 1 po q day AZITHROMYCIN 00286163564 No Longer Active Austin Albarado MD Active KEFLEX 500 MG CAP 1 po TID x 7 days CEPHALEXIN 38324135210 No Longer Active Tristan Vaughn MD Active EQL VISION FORMULA TABS 1 TAB PO DAILY MULTIPLE VITAMINS-MINERALS 99360763277 No Longer Active Tristan Vaughn MD Active CHANTIX STARTING MONTH ELVIS 0.5 MG X 11 & 1 MG X 42 TABS 0.5mg daily for 3 days , then 0.5mg BID for 4 days, then 1mg BID VARENICLINE TARTRATE 63620025126 No Longer Active Tristan Vaughn MD Active LEVOTHYROXINE SODIUM 200 MCG TABS 1 TAB PO DAILY LEVOTHYROXINE SODIUM 06927409231 No Longer Active Tristan Vaughn MD Active LIOTHYRONINE SODIUM 50 MCG TABS take 1 tab po qday for hypothyroidism LIOTHYRONINE SODIUM 58118757173 No Longer Active Austin Albarado MD Active SYNTHROID 0.025 MG TAB 1 tablet by mouth daily LEVOTHYROXINE SODIUM 66703280294 No Longer Active Austin Albarado MD Active ARMOUR THYROID 120 MG TABS take 1 tab po qday for hypothyroidism THYROID 54579026994 Active Austin Albarado MD Active FLONASE 50 MCG/ACT SUSP 1 spray each nostril am and hs FLUTICASONE PROPIONATE Active Simona Galloway APRN Active ZITHROMAX 1 GM PACK DIRECTED AZITHROMYCIN 39966742079 No Longer Active Austin Albarado MD Active PREDNISONE 20 MG TAB 2 tabs daily for 3 days, 1 tab daily for 3 days, 1/2 tab daily for 2 days PREDNISONE 54626650034 No Longer Active Austin Albarado MD Active ZITHROMAX 250 MG TAB 2 po today, then 1 po q days 2-5 AZITHROMYCIN 32828441603 No Longer Active Austin Albarado MD Active NYSTATIN-TRIAMCINOLONE 547458-7.1 UNIT/GM-% OINT Apply to affected area TID NYSTATIN-TRIAMCINOLONE 71307593120 Active Austin Albarado MD Active ADVAIR DISKUS 500-50 MCG/DOSE AEPB ONE INH BID FLUTICASONE- SALMETEROL 73628622869 Active Austin Albarado MD Active ZITHROMAX 1 GM PACK DIRECTED ZITHROMAX 1 GM PACK 531463 AZITHROMYCIN Inactive SYNTHROID 0.025 MG TAB 1 tablet by mouth daily SYNTHROID 0.025 MG TAB 955853 LEVOTHYROXINE SODIUM Inactive LIOTHYRONINE SODIUM 50 MCG TABS take 1 tab po qday for hypothyroidism LIOTHYRONINE SODIUM 50 MCG TABS 950554 LIOTHYRONINE SODIUM Inactive LEVOTHYROXINE SODIUM 200 MCG TABS 1 TAB PO DAILY LEVOTHYROXINE SODIUM 200 MCG TABS 646247 LEVOTHYROXINE SODIUM Inactive CHANTIX STARTING MONTH ELVIS [...] po q day AZITHROMYCIN 500 MG SOLR 29234411734 AZITHROMYCIN Inactive PREDNISONE 20 MG TAB 2 tablets today, then 1 tablet by mouth days 2-5 PREDNISONE 20 MG TAB 637293 PREDNISONE Inactive TORSEMIDE 20 MG TABS 1 TAB PO BID TORSEMIDE 20 MG TABS 917582 TORSEMIDE Inactive ALBUTEROL SULFATE (2.5 MG/3ML) 0.083% NEBU nebulize 1 vial q 4-6 hours prn shortness of breath ALBUTEROL SULFATE (2.5 MG/3ML) 0.083% NEBU 295001 ALBUTEROL SULFATE Inactive LEVAQUIN 500 MG TAB 1 tablet by mouth daily LEVAQUIN 500 MG TAB 869321 LEVOFLOXACIN Inactive PREDNISONE 20 MG TAB 2 tabs daily for 4 days, 1 tab daily for 4 days, 1/2 tab daily for 4 days PREDNISONE 20 MG TAB 285123 PREDNISONE Inactive ZITHROMAX 1 GM ORAL PACK DIRECTED ZITHROMAX 1 GM ORAL PACK 652485 AZITHROMYCIN Inactive LEVAQUIN 500 MG TAB 1 tablet by mouth daily for 10 days. LEVAQUIN 500 MG TAB 540799 LEVOFLOXACIN Inactive PREDNISONE 20 MG ORAL TABS 3 TABS PO FOR 3 DAYS,THAN 2 TABS FOR 3 DAYS THAN, 1 TAB FOR 3 DAYS THAN, 1/2 TAB FOR 3 DAYS. PREDNISONE 20 MG ORAL TABS 352861 PREDNISONE Inactive PREDNISONE 20 MG ORAL TABS 3 daily for 3 days than, 2 tabs daily for 3 days than, 2 tabs daily for 3 days than, 1 tab daily for 3 days than 1/2 tab daily for 3 days. PREDNISONE 20 MG ORAL TABS 596164 PREDNISONE Inactive AMOXICILLIN 500 MG ORAL TABS Take one by mouth 3 times daily, morning, afternoon and evening.] AMOXICILLIN 500 MG ORAL TABS 973129 AMOXICILLIN Inactive LEVAQUIN 500 MG TAB 1 tablet by mouth daily LEVAQUIN 500 MG TAB 854976 LEVOFLOXACIN Inactive LEVAQUIN 500 MG TAB 1 tablet by mouth daily LEVAQUIN 500 MG TAB 082287 LEVOFLOXACIN Inactive PREDNISONE 20 MG ORAL TABS 3 tabs po for 3 days than,2 tabs po for 3 days,1 tab po for 3 days, 1/2 tab po for 3 days. PREDNISONE 20 MG ORAL TABS 268883 PREDNISONE Inactive IPRATROPIUM BROMIDE 0.02 % INH SOLN 1 q 6 hr PRN Dx: J44.1 12/29 IPRATROPIUM BROMIDE 0.02 % INH SOLN 240222 IPRATROPIUM BROMIDE Inactive ZITHROMAX 250 MG TAB 2 po today, then 1 po q days 2-5 ZITHROMAX 250 MG TAB 5376321 AZITHROMYCIN Inactive PREDNISONE 20 MG TAB 2 tabs daily for 3 days, 1 tab daily for 3 days, 1/2 tab daily for 2 days PREDNISONE 20 MG TAB 380010 PREDNISONE Inactive KEFLEX 500 MG CAP 1 po TID x 7 days KEFLEX 500 MG CAP 791301 CEPHALEXIN Inactive LEVOFLOXACIN 500 MG ORAL TABS take 1 tab po qday LEVOFLOXACIN 500 MG ORAL TABS 291734 LEVOFLOXACIN Inactive PREDNISONE 20 MG TAB 2 tabs daily for 3 days, 1 tab daily for 3 days, 1/2 tab daily for 2 days PREDNISONE 20 MG TAB 220783 PREDNISONE Inactive DOXYCYCLINE HYCLATE 100 MG CAP 1 cap by mouth twice daily DOXYCYCLINE HYCLATE 100 MG CAP 7749608 DOXYCYCLINE HYCLATE Inactive PREDNISONE 20 MG TAB take 3 tabs daily for 3 days, 2 tabs daily for 3 days, 1 tab daily for 3 days, 1/2 tab daily for 3 days PREDNISONE 20 MG TAB 708934 PREDNISONE Inactive PREDNISONE 20 MG TAB take 3 tabs daily for 3 days, 2 tabs daily for 3 days, 1 tab daily for 3 days, 1/2 tab daily for 3 days PREDNISONE 20 MG TAB 790233 PREDNISONE Inactive PREDNISONE 20 MG TAB take 3 tabs daily for 3 days, 2 tabs daily for 3 days, 1 tab daily for 3 days, 1/2 tab daily for 3 days PREDNISONE 20 MG TAB 332851 PREDNISONE Inactive ACYCLOVIR 400 MG TABS 1 pill three times daily ACYCLOVIR 400 MG TABS 19720518 ACYCLOVIR Inactive ACYCLOVIR 400 MG TABS 1 pill three times daily ACYCLOVIR 400 MG TABS 19720518 ACYCLOVIR Inactive KEFLEX 500 MG CAP 1 po BID x 7 days KEFLEX 500 MG CAP 795554 CEPHALEXIN Inactive KEFLEX 500 MG CAP 1 po BID x 7 days KEFLEX 500 MG CAP 314991 CEPHALEXIN Inactive ACYCLOVIR 400 MG TABS 1 pill three times daily ACYCLOVIR 400 MG TABS 19720518 ACYCLOVIR Inactive Advance Directives Directive Description Start Date PERMISSION TO SHARE DISCUSSED WITH PATIENT -- NO DECISION MADE Immunizations Vaccine Administration Date Value Standard Description pneumococcal immunization administered Pneumovax 23 [CVX33] pneumococcal polysaccharide vaccine, 23 valent Vital Signs Date Name Value Unit Range Description blood pressure, diastolic 61 mm[Hg] BP fernandes [...] CBC W/DIFF, B-Type Natriuretic Peptide - Chemistry blood glucose 131 mg/dL 65-110 chloride, serum 100 mmol/L 98-107 potassium, serum 4.4 mmol/L 3.5-5.2 carbon dioxide, venous blood 39.2 mmol/L 21.0-32.0 sodium, serum 140 mmol/L 805-346 3829/02/09 urea nitrogen, blood 27 mg/dL 7-18 creatinine, serum 1.30 mg/dL 0.55-1.30 alanine aminotransferase (SGPT), serum 38 U/L 12-78 aspartate aminotransferase (SGOT), serum 34 U/L 15-37 calcium, serum 8.6 mg/dL 8.5-10.1 bilirubin, serum, total 0.30 mg/dL 0.00-1.00 Encounters Code Encounter Date Provider Facility CPT-74299 Level 3 Est. Patient 16:07:19 CDT Simona Galloway APRN [facility] CPT-67645 Level 4 Est. Patient 13:31:03 CDT Austin Albarado MD [facility] CPT-77934 Level 4 Est. Patient 17:54:41 CONVERTING TECHNICIAN Austin Albarado MD [facility]-28536 Level 4 Est. Patient 16:11:14 CONVERTING TECHNICIAN Austin Albarado MD [facility]-44064 Level 4 Est. Patient 23:08:56 CDT Austin Albarado MD [facility]-34303 Level 4 Est. Patient 13:27:28 CDT Garcia Stroud MD [facility]-28587 Level 4 Est. Patient 10:51:20 CDT Austin Albarado MD [facility]-94430 Level 4 Est. Patient 20:09:43 CONVERTING TECHNICIAN Austin Albarado MD [facility]-38754 Level 4 Est. Patient 21:00:28 CDT Austin Albarado MD [facility]-55570 Level 4 Est. Patient 10:03:37 CDT Austin Albarado MD [facility]-27735 Level 3 Est. Patient 10:50:28 CONVERTING TECHNICIAN Austin Albarado MD [facility] CPT-19291 Level 4 Est. Patient 21:31:41 CONVERTING TECHNICIAN Austin Albarado MD [facility]-56818 Level 3 Est. Patient 16:22:54 CONVERTING TECHNICIAN Jann Law DO [facility] CPT-29442 Level 3 Est. Patient 11:04:53 CONVERTING TECHNICIAN Tristan Vaughn MD [facility]-33887 Level 4 Est. Patient 09:50:59 CDT Austin Albarado MD [facility]-03027 Level 4 Est. Patient 09:29:00 CDT Austin Albarado MD [facility]-64469 Level 4 Est. Patient 14:23:07 CDT Austin Albarado MD [facility]-07437 Level 4 Est. Patient 14:27:26 CDT Austin Albarado MD [facility] CPT-00165 Level 4 Est. Patient 12:51:43 CONVERTING TECHNICIAN Austin Albarado MD [facility] CPT-77756 Level 3 New Patient 14:17:38 CONVERTING TECHNICIAN Austin Albarado MD [facility] CPT-15175 Level 3 New Patient 11:28:18 CONVERTING TECHNICIAN Austin Albarado MD [facility] Procedures Code Procedure Name Date Entry Date Standard Description CPT-G0439 Subsequent Annual Wellness Exam 08:13:24 CDT CPT-TCMM Transitional Care Mgmt-Moderate 14:53:36 CONVERTING TECHNICIAN CPT-34669 No Charge Offi Visit 10:19:33 CONVERTING TECHNICIAN CPT-00813 Chest 2V Frontal and Lat - XRAY USE ONLY 15:01:41 CONVERTING TECHNICIAN CPT-74159 First Vx - Ix admin for Medicare patients 16:00:49 CDT CPT-33223 Fluzone High-Dose Intramuscular Suspension 16:00:49 CDT CPT-G0009 Administration of Pneumococcal Vaccine 13:25:27 CDT CPT-04423 Prevnar 13 Intramuscular Suspension 13:25:27 CDT 09/26 CPT-G0438 Initial Annual Wellness Exam 11:28:26 CDT CPT-16270 Chest 2V Frontal and Lat 15:00:00 CONVERTING TECHNICIAN CPT-40320 Breathing Tx 14:49:25 CONVERTING TECHNICIAN CPT-09069 Fluzone High Dose 15:08:41 CONVERTING TECHNICIAN CPT-12940 Immunization Single Admin 15:08:41 CONVERTING TECHNICIAN CPT-69725 Fluzone High Dose 17:31:19 CDT CPT-32198 Administration single or combination vaccine inc oral 17 :31:19 CDT CPT-68058 Venipuncture Draw Fee 11:03:05 CDT CPT-TCMM Transitional Care Mgmt-Moderate 16:32:35 CDT CPT-53631 Chest 2V Frontal and Lat 11:51:09 CDT CPT-G0008 Administration of Influenza Virus Vaccine 15:09:08 CDT CPT-33672 Fluzone High-Dose Intramuscular Suspension 15:09:08 CDT CPT-61333 Administration single or combination vaccine inc oral 17 :07:02 CONVERTING TECHNICIAN CPT-92684 Influenza High Dose age 65+ 17:07:02 CONVERTING TECHNICIAN
--- OUTSIDE RECORDS SUMMARY | 2017-02-27 21:52 | XMS REPORT | Clinical Summary ---
Author Author Admin, LEE Organization [facility] Address Unknown Phone Unavailable Allergies, Adverse Reactions, [...] Coronary atherosclerosis of unspecified type of vessel, lower brule or graft U R I ICD-465.9 Inactive Austin Albarado MD 06/13 Bronchitis-Acute ICD-466.0 Inactive Austin Albarado MD Medication List Medication Instructions Start Date Stop Date Generic Name NDC Status Provider Patient Instruction FUROSEMIDE 20 MG TABS 2 today and tomorrow and then 1 daily as needed for swelling FUROSEMIDE 78906010410 Active Garcia Stroud MD Active AMOXICILLIN 500 MG ORAL TABS Take one by mouth 3 times daily, morning, afternoon and evening.] AMOXICILLIN 35712834473 No Longer Active Garcia Stroud MD Active PREDNISONE 20 MG ORAL TABS 3 daily for 3 days than, 2 tabs daily for 3 days than, 2 tabs daily for 3 days than, 1 tab daily for 3 days than 1/2 tab daily for 3 days. PREDNISONE 16341742585 No Longer Active Tracie Arrington APRN Active FLUTICASONE PROPIONATE 50 MCG/ACT SUSP 1 to 2 sprays each nostril daily 08/21 FLUTICASONE PROPIONATE 86500559541 Active Simoan Galloway APRN Active PREDNISONE 10 MG TAB take 1 tab po qday for severe COPD PREDNISONE 32157959685 Active Austin Albarado MD Active PREDNISONE 20 MG ORAL TABS 3 TABS PO FOR 3 DAYS,THAN 2 TABS FOR 3 DAYS THAN, 1 TAB FOR 3 DAYS THAN, 1/2 TAB FOR 3 DAYS. PREDNISONE 02456254795 No Longer Active Austin Albarado MD Active LEVAQUIN 500 MG TAB 1 tablet by mouth daily for 10 days. LEVOFLOXACIN 06026177581 No Longer Active Austin Albarado MD Active PREDNISONE 20 MG TAB take 3 tabs daily for 3 days, 2 tabs daily for 3 days, 1 tab daily for 3 days, 1/2 tab daily for 3 days PREDNISONE 54537304587 No Longer Active Simona Galloway APRN Active ZITHROMAX 1 GM ORAL PACK DIRECTED AZITHROMYCIN 24789294397 No Longer Active Simona Galloway APRN Active PREDNISONE 20 MG TAB 2 tabs daily for 4 days, 1 tab daily for 4 days, 1/2 tab daily for 4 days PREDNISONE 69019787277 No Longer Active Austin Albarado MD Active LEVAQUIN 500 MG TAB 1 tablet by mouth daily LEVOFLOXACIN 09864311639 No Longer Active Austin Albarado MD Active PREDNISONE 20 MG TAB take 3 tabs daily for 3 days, 2 tabs daily for 3 days, 1 tab daily for 3 days, 1/2 tab daily for 3 days PREDNISONE 06489762617 No Longer Active Austin Albarado MD Active DOXYCYCLINE HYCLATE 100 MG CAP 1 cap by mouth twice daily DOXYCYCLINE HYCLATE 20821477770 No Longer Active Jikatyaina Ly BOWEN Active ALBUTEROL SULFATE (2.5 MG/3ML) 0.083% NEBU nebulize 1 vial q 4-6 hours prn shortness of breath ALBUTEROL SULFATE 37973100072 No Longer Active 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 MOLD BUNCH TRIMMER Active TORSEMIDE 20 MG TABS 1 TAB PO BID TORSEMIDE 78392937946 No Longer Active Jillina Frashonnal MOLD BUNCH TRIMMER Active PREDNISONE 20 MG TAB 2 tabs daily for 3 days, 1 tab daily for 3 days, 1/2 tab daily for 2 days PREDNISONE 70687754153 No Longer Active Austin Albarado MD Active LEVOFLOXACIN 500 MG ORAL TABS take 1 tab po qday LEVOFLOXACIN 45695591652 No Longer Active Austin Albarado MD Active PREDNISONE 20 MG TAB 2 tablets today, then 1 tablet by mouth days 2-5 PREDNISONE 54679270372 No Longer Active Austin Albarado MD Active AZITHROMYCIN 500 MG SOLR 1 po q day AZITHROMYCIN 92788199957 No Longer Active Austin Albarado MD Active KEFLEX 500 MG CAP 1 po TID x 7 days CEPHALEXIN 29735659627 No Longer Active Tristan Vaughn MD Active EQL VISION FORMULA TABS 1 TAB PO DAILY MULTIPLE VITAMINS-MINERALS 49185201094 No Longer Active rTistan Vaughn MD Active CHANTIX STARTING MONTH ELVIS 0.5 MG X 11 & 1 MG X 42 TABS 0.5mg daily for 3 days , then 0.5mg BID for 4 days, then 1mg BID VARENICLINE TARTRATE 81813264987 No Longer Active Tristan Vaughn MD Active LEVOTHYROXINE SODIUM 200 MCG TABS 1 TAB PO DAILY LEVOTHYROXINE SODIUM 73518288813 No Longer Active Tristan Vaughn MD Active LIOTHYRONINE SODIUM 50 MCG TABS take 1 tab po qday for hypothyroidism LIOTHYRONINE SODIUM 55506030843 No Longer Active Austin Albarado MD Active SYNTHROID 0.025 MG TAB 1 tablet by mouth daily LEVOTHYROXINE SODIUM 01596726500 No Longer Active Austin Albarado MD Active ARMOUR THYROID 120 MG TABS take 1 tab po qday for hypothyroidism THYROID 32653583806 Active Austin Albarado MD Active FLONASE 50 MCG/ACT SUSP 1 spray each nostril am and hs FLUTICASONE PROPIONATE Active Simona Nilesh MOLD BUNCH TRIMMER Active ZITHROMAX 1 GM PACK DIRECTED AZITHROMYCIN 25563141800 No Longer Active Austin Albarado MD Active PREDNISONE 20 MG TAB 2 tabs daily for 3 days, 1 tab daily for 3 days, 1/2 tab daily for 2 days PREDNISONE 85406450153 No Longer Active Austin Albarado MD Active ZITHROMAX 250 MG TAB 2 po today, then 1 po q days 2-5 AZITHROMYCIN 89133398264 No Longer Active Austin Albarado MD Active NYSTATIN-TRIAMCINOLONE 769864-0.1 UNIT/GM-% OINT Apply to affected area TID NYSTATIN-TRIAMCINOLONE 81976866895 Active Austin Albarado MD Active IPRATROPIUM-ALBUTEROL 0.5-2.5 (3) MG/3ML SOLN 1 VIAL NEB Q 6 HRS PRN IPRATROPIUM-ALBUTEROL 19655844032 Active Austin Albarado MD Active PROAIR HFA 108 (90 BASE) MCG/ACT AERS take 1-2 puffs q4hrs prn cough/ SOB ALBUTEROL SULFATE 19349095633 Active Austin Albarado MD Active ADVAIR DISKUS 500-50 MCG/DOSE AEPB ONE INH BID FLUTICASONE- SALMETEROL 23697561585 Active Austin Albarado MD Active ZITHROMAX 1 GM PACK DIRECTED ZITHROMAX 1 GM PACK 803354 AZITHROMYCIN Inactive SYNTHROID 0.025 MG TAB 1 tablet by mouth daily SYNTHROID 0.025 MG TAB 116441 LEVOTHYROXINE SODIUM Inactive LIOTHYRONINE SODIUM 50 MCG TABS take 1 tab po qday for hypothyroidism LIOTHYRONINE SODIUM 50 MCG TABS 119740 LIOTHYRONINE SODIUM Inactive LEVOTHYROXINE SODIUM 200 MCG TABS 1 TAB PO DAILY LEVOTHYROXINE SODIUM 200 MCG TABS 470648 LEVOTHYROXINE SODIUM Inactive CHANTIX STARTING MONTH ELVIS [...] po q day AZITHROMYCIN 500 MG SOLR 66490300028 AZITHROMYCIN Inactive PREDNISONE 20 MG TAB 2 tablets today, then 1 tablet by mouth days 2-5 PREDNISONE 20 MG TAB 990183 PREDNISONE Inactive TORSEMIDE 20 MG TABS 1 TAB PO BID TORSEMIDE 20 MG TABS 997028 TORSEMIDE Inactive ALBUTEROL SULFATE (2.5 MG/3ML) 0.083% NEBU nebulize 1 vial q 4-6 hours prn shortness of breath ALBUTEROL SULFATE (2.5 MG/3ML) 0.083% NEBU 089544 ALBUTEROL SULFATE Inactive LEVAQUIN 500 MG TAB 1 tablet by mouth daily LEVAQUIN 500 MG TAB 126154 LEVOFLOXACIN Inactive PREDNISONE 20 MG TAB 2 tabs daily for 4 days, 1 tab daily for 4 days, 1/2 tab daily for 4 days PREDNISONE 20 MG TAB 586197 PREDNISONE Inactive ZITHROMAX 1 GM ORAL PACK DIRECTED ZITHROMAX 1 GM ORAL PACK 720336 AZITHROMYCIN Inactive LEVAQUIN 500 MG TAB 1 tablet by mouth daily for 10 days. LEVAQUIN 500 MG TAB 678361 LEVOFLOXACIN Inactive PREDNISONE 20 MG ORAL TABS 3 TABS PO FOR 3 DAYS,THAN 2 TABS FOR 3 DAYS THAN, 1 TAB FOR 3 DAYS THAN, 1/2 TAB FOR 3 DAYS. PREDNISONE 20 MG ORAL TABS 780424 PREDNISONE Inactive PREDNISONE 20 MG ORAL TABS 3 daily for 3 days than, 2 tabs daily for 3 days than, 2 tabs daily for 3 days than, 1 tab daily for 3 days than 1/2 tab daily for 3 days. PREDNISONE 20 MG ORAL TABS 134081 PREDNISONE Inactive AMOXICILLIN 500 MG ORAL TABS Take one by mouth 3 times daily, morning, afternoon and evening.] AMOXICILLIN 500 MG ORAL TABS 807003 AMOXICILLIN Inactive ZITHROMAX 250 MG TAB 2 po today, then 1 po q days 2-5 ZITHROMAX 250 MG TAB 3291095 AZITHROMYCIN Inactive PREDNISONE 20 MG TAB 2 tabs daily for 3 days, 1 tab daily for 3 days, 1/2 tab daily for 2 days PREDNISONE 20 MG TAB 220395 PREDNISONE Inactive KEFLEX 500 MG CAP 1 po TID x 7 days KEFLEX 500 MG CAP 294311 CEPHALEXIN Inactive LEVOFLOXACIN 500 MG ORAL TABS take 1 tab po qday LEVOFLOXACIN 500 MG ORAL TABS 000977 LEVOFLOXACIN Inactive PREDNISONE 20 MG TAB 2 tabs daily for 3 days, 1 tab daily for 3 days, 1/2 tab daily for 2 days PREDNISONE 20 MG TAB 327688 PREDNISONE Inactive DOXYCYCLINE HYCLATE 100 MG CAP 1 cap by mouth twice daily DOXYCYCLINE HYCLATE 100 MG CAP 2022646 DOXYCYCLINE HYCLATE Inactive PREDNISONE 20 MG TAB take 3 tabs daily for 3 days, 2 tabs daily for 3 days, 1 tab daily for 3 days, 1/2 tab daily for 3 days PREDNISONE 20 MG TAB 399951 PREDNISONE Inactive PREDNISONE 20 MG TAB take 3 tabs daily for 3 days, 2 tabs daily for 3 days, 1 tab daily for 3 days, 1/2 tab daily for 3 days PREDNISONE 20 MG TAB 121160 PREDNISONE Inactive Advance Directives Directive Description Start [...] ... - Chemistry cholesterol, serum 136 mg/dL 822-093 7343/10/06 triglyceride, serum, fasting 30 mg/dL 30-200 HDL cholesterol, serum 57 mg/dL 32-96 LDL cholesterol, serum 73 mg/dL 0-130 prostate specific antigen 1.45 ng/mL 0.00-4.00 thyroxine, serum, free 0.80 ng/dL 0.76-1.46 TSH 14.03 m[iU]/mL 0.36-3.74 Lab Report: Thyroid Stimulating Hormone (L), Comp. Metabolic Panel, CBC, ... - Chemistry TSH 43.52 m[iU]/mL 0.36-3.74 sodium, serum 140 mmol/L 527-364 0319/04/06 carbon dioxide, venous blood 36.3 mmol/L 21.0-32.0 potassium, serum 4.9 mmol/L 3.5-5.2 chloride, serum 100 mmol/L 98-107 blood glucose 62 mg/dL 65-110 urea nitrogen, blood 24 mg/dL 7-18 creatinine, serum 1.09 mg/dL 0.55-1.30 alanine aminotransferase (SGPT), serum 44 U/L 12-78 aspartate aminotransferase (SGOT), serum 25 U/L 15-37 calcium, serum 8.7 mg/dL 8.5-10.1 bilirubin, serum, total 0.50 mg/dL 0.00-1.00 cholesterol, serum 189 mg/dL 927-697 1356/04/06 triglyceride, serum, fasting 117 mg/dL 30-200 HDL [...] 142-424 Encounters Code Encounter Date Provider Facility CPT-96858 Level 4 Est. Patient 13:27:28 CDT Garcia Stroud MD [facility] CPT-63560 Level 4 Est. Patient 10:51:20 CDT Austin Albarado MD [facility] CPT-79339 Level 4 Est. Patient 20:09:43 SENIOR UI DEVELOPER Austin Albarado MD [facility] CPT-57231 Level 4 Est. Patient 21:00:28 CDT Austin Albarado MD [facility] CPT-62804 Level 4 Est. Patient 10:03:37 CDT Austin Albarado MD [facility] CPT-11334 Level 3 Est. Patient 10:50:28 SENIOR UI DEVELOPER Austin Albarado MD [facility] CPT-54462 Level 4 Est. Patient 21:31:41 SENIOR UI DEVELOPER Austin Albarado MD [facility] CPT-17208 Level 3 Est. Patient 16:22:54 SENIOR UI DEVELOPER Jann Law DO [facility] CPT-44387 Level 3 Est. Patient 11:04:53 SENIOR UI DEVELOPER Tristan Vaughn MD [facility] CPT-36649 Level 4 Est. Patient 09:50:59 CDT Austin Albarado MD [facility] CPT-19348 Level 4 Est. Patient 09:29:00 CDT Austin Albarado MD [facility] CPT-37100 Level 4 Est. Patient 14:23:07 CDT Austin Albarado MD [facility] CPT-56018 Level 4 Est. Patient 14:27:26 CDT Austin Albarado MD [facility] CPT-60427 Level 4 Est. Patient 12:51:43 SENIOR UI DEVELOPER Austin Albarado MD [facility] CPT-38209 Level 3 New Patient 14:17:38 SENIOR UI DEVELOPER Austin Albarado MD [facility] CPT-02794 Level 3 New Patient 11:28:18 SENIOR UI DEVELOPER Austin Albarado MD [facility] Procedures Code Procedure Name Date Entry Date Standard Description CPT-G0009 Administration of Pneumococcal Vaccine 13:25:27 CDT CPT-25584 Prevnar 13 Intramuscular Suspension 13:25:27 CDT 09/26 CPT-G0438 Initial Annual Wellness Exam 11:28:26 CDT CPT-43513 Chest 2V Frontal and Lat 15:00:00 SENIOR UI DEVELOPER CPT-31982 Breathing Tx 14:49:25 SENIOR UI DEVELOPER CPT-61594 Fluzone High Dose 15:08:41 SENIOR UI DEVELOPER CPT-96540 Immunization Single Admin 15:08:41 SENIOR UI DEVELOPER CPT-11564 Fluzone High Dose 17:31:19 CDT CPT-61976 Administration single or combination vaccine inc oral 17 :31:19 CDT CPT-46472 Venipuncture Draw Fee 11:03:05 CDT CPT-TCMM Transitional Care Mgmt-Moderate 16:32:35 CDT CPT-91196 Chest 2V Frontal and Lat 11:51:09 CDT CPT-G0008 Administration of Influenza Virus Vaccine 15:09:08 CDT CPT-12426 Fluzone High-Dose Intramuscular Suspension 15:09:08 CDT CPT-08673 Administration single or combination vaccine inc oral 17 :07:02 SENIOR UI DEVELOPER CPT-21793 Influenza High Dose age 65+ 17:07:02 SENIOR UI DEVELOPER
--- OUTSIDE RECORDS SUMMARY | 2017-02-27 21:53 | XMS REPORT | Clinical Summary ---
Author Author Admin, LEE Organization [facility] Address Unknown Phone Unavailable Allergies, Adverse Reactions, [...] Coronary atherosclerosis of unspecified type of vessel, [place] or graft U R I ICD-465.9 Inactive Austin Albarado MD 06/13 Bronchitis-Acute ICD-466.0 Inactive Austin Albarado MD Medication List Medication Instructions Start Date Stop Date Generic Name NDC Status Provider Patient Instruction FUROSEMIDE 20 MG TABS 2 today and tomorrow and then 1 daily as needed for swelling FUROSEMIDE 17889038991 Active Garcia Stroud MD Active AMOXICILLIN 500 MG ORAL TABS Take one by mouth 3 times daily, morning, afternoon and evening.] AMOXICILLIN 81294730604 No Longer Active Garcia Stroud MD Active PREDNISONE 20 MG ORAL TABS 3 daily for 3 days than, 2 tabs daily for 3 days than, 2 tabs daily for 3 days than, 1 tab daily for 3 days than 1/2 tab daily for 3 days. PREDNISONE 38743523231 No Longer Active Tracie Arrington APRN Active FLUTICASONE PROPIONATE 50 MCG/ACT SUSP 1 to 2 sprays each nostril daily 08/21 FLUTICASONE PROPIONATE 86965695817 Active Simona Galloway APRN Active PREDNISONE 10 MG TAB take 1 tab po qday for severe COPD PREDNISONE 51028923661 Active Austin Albarado MD Active PREDNISONE 20 MG ORAL TABS 3 TABS PO FOR 3 DAYS,THAN 2 TABS FOR 3 DAYS THAN, 1 TAB FOR 3 DAYS THAN, 1/2 TAB FOR 3 DAYS. PREDNISONE 05740646928 No Longer Active Austin Albarado MD Active LEVAQUIN 500 MG TAB 1 tablet by mouth daily for 10 days. LEVOFLOXACIN 65748989640 No Longer Active Austin Albarado MD Active PREDNISONE 20 MG TAB take 3 tabs daily for 3 days, 2 tabs daily for 3 days, 1 tab daily for 3 days, 1/2 tab daily for 3 days PREDNISONE 67397261428 No Longer Active Simona Galloway APRN Active ZITHROMAX 1 GM ORAL PACK DIRECTED AZITHROMYCIN 58507195705 No Longer Active Simona Galloway APRN Active PREDNISONE 20 MG TAB 2 tabs daily for 4 days, 1 tab daily for 4 days, 1/2 tab daily for 4 days PREDNISONE 71356273998 No Longer Active Austin Albarado MD Active LEVAQUIN 500 MG TAB 1 tablet by mouth daily LEVOFLOXACIN 19467102775 No Longer Active Austin Albarado MD Active PREDNISONE 20 MG TAB take 3 tabs daily for 3 days, 2 tabs daily for 3 days, 1 tab daily for 3 days, 1/2 tab daily for 3 days PREDNISONE 89441420747 No Longer Active Austin Albarado MD Active DOXYCYCLINE HYCLATE 100 MG CAP 1 cap by mouth twice daily DOXYCYCLINE HYCLATE 16967810420 No Longer Active Jikatyaina Ly BOWEN Active ALBUTEROL SULFATE (2.5 MG/3ML) 0.083% NEBU nebulize 1 vial q 4-6 hours prn shortness of breath ALBUTEROL SULFATE 07385589287 No Longer Active 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 AGENCY SALES DEVELOPMENT ASSOCIATE Active TORSEMIDE 20 MG TABS 1 TAB PO BID TORSEMIDE 61866414304 No Longer Active Jillina Frashonnal AGENCY SALES DEVELOPMENT ASSOCIATE Active PREDNISONE 20 MG TAB 2 tabs daily for 3 days, 1 tab daily for 3 days, 1/2 tab daily for 2 days PREDNISONE 62113767126 No Longer Active Austin Albarado MD Active LEVOFLOXACIN 500 MG ORAL TABS take 1 tab po qday LEVOFLOXACIN 50851596918 No Longer Active Austin Albarado MD Active PREDNISONE 20 MG TAB 2 tablets today, then 1 tablet by mouth days 2-5 PREDNISONE 73281149340 No Longer Active Austin Albarado MD Active AZITHROMYCIN 500 MG SOLR 1 po q day AZITHROMYCIN 97578698574 No Longer Active Austin Albarado MD Active KEFLEX 500 MG CAP 1 po TID x 7 days CEPHALEXIN 10870522684 No Longer Active Tristan Vaughn MD Active EQL VISION FORMULA TABS 1 TAB PO DAILY MULTIPLE VITAMINS-MINERALS 59605552187 No Longer Active Tristan Vaughn MD Active CHANTIX STARTING MONTH ELVIS 0.5 MG X 11 & 1 MG X 42 TABS 0.5mg daily for 3 days , then 0.5mg BID for 4 days, then 1mg BID VARENICLINE TARTRATE 13529563049 No Longer Active Tristan Vaughn MD Active LEVOTHYROXINE SODIUM 200 MCG TABS 1 TAB PO DAILY LEVOTHYROXINE SODIUM 73123964128 No Longer Active Tristan Vaughn MD Active LIOTHYRONINE SODIUM 50 MCG TABS take 1 tab po qday for hypothyroidism LIOTHYRONINE SODIUM 79825213938 No Longer Active Austin Albarado MD Active SYNTHROID 0.025 MG TAB 1 tablet by mouth daily LEVOTHYROXINE SODIUM 26627935947 No Longer Active Austin Albarado MD Active ARMOUR THYROID 120 MG TABS take 1 tab po qday for hypothyroidism THYROID 28735699847 Active Austin Albarado MD Active FLONASE 50 MCG/ACT SUSP 1 spray each nostril am and hs FLUTICASONE PROPIONATE Active Simona Nilesh AGENCY SALES DEVELOPMENT ASSOCIATE Active ZITHROMAX 1 GM PACK DIRECTED AZITHROMYCIN 07455979465 No Longer Active Austin Albarado MD Active PREDNISONE 20 MG TAB 2 tabs daily for 3 days, 1 tab daily for 3 days, 1/2 tab daily for 2 days PREDNISONE 07360063709 No Longer Active Austin Albarado MD Active ZITHROMAX 250 MG TAB 2 po today, then 1 po q days 2-5 AZITHROMYCIN 78155343131 No Longer Active Austin Albarado MD Active NYSTATIN-TRIAMCINOLONE 213913-1.1 UNIT/GM-% OINT Apply to affected area TID NYSTATIN-TRIAMCINOLONE 27094584767 Active Austin Albarado MD Active IPRATROPIUM-ALBUTEROL 0.5-2.5 (3) MG/3ML SOLN 1 VIAL NEB Q 6 HRS PRN IPRATROPIUM-ALBUTEROL 86021914062 Active Austin Albarado MD Active PROAIR HFA 108 (90 BASE) MCG/ACT AERS take 1-2 puffs q4hrs prn cough/ SOB ALBUTEROL SULFATE 00815850369 Active Austin Albarado MD Active ADVAIR DISKUS 500-50 MCG/DOSE AEPB ONE INH BID FLUTICASONE- SALMETEROL 82483499745 Active Austin Albarado MD Active ZITHROMAX 1 GM PACK DIRECTED ZITHROMAX 1 GM PACK 186962 AZITHROMYCIN Inactive SYNTHROID 0.025 MG TAB 1 tablet by mouth daily SYNTHROID 0.025 MG TAB 789242 LEVOTHYROXINE SODIUM Inactive LIOTHYRONINE SODIUM 50 MCG TABS take 1 tab po qday for hypothyroidism LIOTHYRONINE SODIUM 50 MCG TABS 521521 LIOTHYRONINE SODIUM Inactive LEVOTHYROXINE SODIUM 200 MCG TABS 1 TAB PO DAILY LEVOTHYROXINE SODIUM 200 MCG TABS 879724 LEVOTHYROXINE SODIUM Inactive CHANTIX STARTING MONTH ELVIS [...] po q day AZITHROMYCIN 500 MG SOLR 60850411735 AZITHROMYCIN Inactive PREDNISONE 20 MG TAB 2 tablets today, then 1 tablet by mouth days 2-5 PREDNISONE 20 MG TAB 230138 PREDNISONE Inactive TORSEMIDE 20 MG TABS 1 TAB PO BID TORSEMIDE 20 MG TABS 968364 TORSEMIDE Inactive ALBUTEROL SULFATE (2.5 MG/3ML) 0.083% NEBU nebulize 1 vial q 4-6 hours prn shortness of breath ALBUTEROL SULFATE (2.5 MG/3ML) 0.083% NEBU 232807 ALBUTEROL SULFATE Inactive LEVAQUIN 500 MG TAB 1 tablet by mouth daily LEVAQUIN 500 MG TAB 431702 LEVOFLOXACIN Inactive PREDNISONE 20 MG TAB 2 tabs daily for 4 days, 1 tab daily for 4 days, 1/2 tab daily for 4 days PREDNISONE 20 MG TAB 883305 PREDNISONE Inactive ZITHROMAX 1 GM ORAL PACK DIRECTED ZITHROMAX 1 GM ORAL PACK 508706 AZITHROMYCIN Inactive LEVAQUIN 500 MG TAB 1 tablet by mouth daily for 10 days. LEVAQUIN 500 MG TAB 984068 LEVOFLOXACIN Inactive PREDNISONE 20 MG ORAL TABS 3 TABS PO FOR 3 DAYS,THAN 2 TABS FOR 3 DAYS THAN, 1 TAB FOR 3 DAYS THAN, 1/2 TAB FOR 3 DAYS. PREDNISONE 20 MG ORAL TABS 235829 PREDNISONE Inactive PREDNISONE 20 MG ORAL TABS 3 daily for 3 days than, 2 tabs daily for 3 days than, 2 tabs daily for 3 days than, 1 tab daily for 3 days than 1/2 tab daily for 3 days. PREDNISONE 20 MG ORAL TABS 535392 PREDNISONE Inactive AMOXICILLIN 500 MG ORAL TABS Take one by mouth 3 times daily, morning, afternoon and evening.] AMOXICILLIN 500 MG ORAL TABS 783306 AMOXICILLIN Inactive ZITHROMAX 250 MG TAB 2 po today, then 1 po q days 2-5 ZITHROMAX 250 MG TAB 5866603 AZITHROMYCIN Inactive PREDNISONE 20 MG TAB 2 tabs daily for 3 days, 1 tab daily for 3 days, 1/2 tab daily for 2 days PREDNISONE 20 MG TAB 558982 PREDNISONE Inactive KEFLEX 500 MG CAP 1 po TID x 7 days KEFLEX 500 MG CAP 824415 CEPHALEXIN Inactive LEVOFLOXACIN 500 MG ORAL TABS take 1 tab po qday LEVOFLOXACIN 500 MG ORAL TABS 485764 LEVOFLOXACIN Inactive PREDNISONE 20 MG TAB 2 tabs daily for 3 days, 1 tab daily for 3 days, 1/2 tab daily for 2 days PREDNISONE 20 MG TAB 128833 PREDNISONE Inactive DOXYCYCLINE HYCLATE 100 MG CAP 1 cap by mouth twice daily DOXYCYCLINE HYCLATE 100 MG CAP 5983283 DOXYCYCLINE HYCLATE Inactive PREDNISONE 20 MG TAB take 3 tabs daily for 3 days, 2 tabs daily for 3 days, 1 tab daily for 3 days, 1/2 tab daily for 3 days PREDNISONE 20 MG TAB 572479 PREDNISONE Inactive PREDNISONE 20 MG TAB take 3 tabs daily for 3 days, 2 tabs daily for 3 days, 1 tab daily for 3 days, 1/2 tab daily for 3 days PREDNISONE 20 MG TAB 414409 PREDNISONE Inactive Advance Directives Directive Description Start [...] Body temperature blood pressure, diastolic - 8462-4 56 mm[Hg] [...] ... - Chemistry cholesterol, serum 136 mg/dL 379-235 2025/10/06 triglyceride, serum, fasting 30 mg/dL 30-200 HDL cholesterol, serum 57 mg/dL 32-96 LDL cholesterol, serum 73 mg/dL 0-130 prostate specific antigen 1.45 ng/mL 0.00-4.00 thyroxine, serum, free 0.80 ng/dL 0.76-1.46 TSH 14.03 m[iU]/mL 0.36-3.74 Lab Report: Thyroid Stimulating Hormone (L), Comp. Metabolic Panel, CBC, ... - Chemistry TSH 43.52 m[iU]/mL 0.36-3.74 sodium, serum 140 mmol/L 621-554 0445/04/06 carbon dioxide, venous blood 36.3 mmol/L 21.0-32.0 potassium, serum 4.9 mmol/L 3.5-5.2 chloride, serum 100 mmol/L 98-107 blood glucose 62 mg/dL 65-110 urea nitrogen, blood 24 mg/dL 7-18 creatinine, serum 1.09 mg/dL 0.55-1.30 alanine aminotransferase (SGPT), serum 44 U/L 12-78 aspartate aminotransferase (SGOT), serum 25 U/L 15-37 calcium, serum 8.7 mg/dL 8.5-10.1 bilirubin, serum, total 0.50 mg/dL 0.00-1.00 cholesterol, serum 189 mg/dL 853-508 4789/04/06 triglyceride, serum, fasting 117 mg/dL 30-200 HDL [...] 142-424 Encounters Code Encounter Date Provider Facility CPT-99633 Level 4 Est. Patient 13:27:28 CDT Garcia Stroud MD [facility] CPT-13298 Level 4 Est. Patient 10:51:20 CDT Austin Albarado MD [facility] CPT-91431 Level 4 Est. Patient 20:09:43 ARBORER Austin Albarado MD [facility] CPT-05187 Level 4 Est. Patient 21:00:28 CDT Austin Albarado MD [facility] CPT-14501 Level 4 Est. Patient 10:03:37 CDT Austin Albarado MD [facility] CPT-93821 Level 3 Est. Patient 10:50:28 ARBORER Austin Albarado MD [facility] CPT-62563 Level 4 Est. Patient 21:31:41 ARBORER Austin Albarado MD [facility] CPT-47845 Level 3 Est. Patient 16:22:54 ARBORER Jann Law DO [facility] CPT-10073 Level 3 Est. Patient 11:04:53 ARBORER Tristan Vaughn MD [facility] CPT-67584 Level 4 Est. Patient 09:50:59 CDT Austin Albarado MD [facility] CPT-09353 Level 4 Est. Patient 09:29:00 CDT Austin Albarado MD [facility] CPT-16977 Level 4 Est. Patient 14:23:07 CDT Austin Albarado MD [facility] CPT-04752 Level 4 Est. Patient 14:27:26 CDT Austin Albarado MD [facility] CPT-54668 Level 4 Est. Patient 12:51:43 ARBORER Austin Albarado MD [facility] CPT-96930 Level 3 New Patient 14:17:38 ARBORER Austin Albarado MD [facility] CPT-32740 Level 3 New Patient 11:28:18 ARBORER Austin Albarado MD [facility] Procedures Code Procedure Name Date Entry Date Standard Description CPT-G0009 Administration of Pneumococcal Vaccine 13:25:27 CDT CPT-73841 Prevnar 13 Intramuscular Suspension 13:25:27 CDT 09/26 CPT-G0438 Initial Annual Wellness Exam 11:28:26 CDT CPT-48207 Chest 2V Frontal and Lat 15:00:00 ARBORER CPT-76981 Breathing Tx 14:49:25 ARBORER CPT-93758 Fluzone High Dose 15:08:41 ARBORER CPT-47414 Immunization Single Admin 15:08:41 ARBORER CPT-03650 Fluzone High Dose 17:31:19 CDT CPT-22639 Administration single or combination vaccine inc oral 17 :31:19 CDT CPT-22095 Venipuncture Draw Fee 11:03:05 CDT CPT-TCMM Transitional Care Mgmt-Moderate 16:32:35 CDT CPT-20832 Chest 2V Frontal and Lat 11:51:09 CDT CPT-G0008 Administration of Influenza Virus Vaccine 15:09:08 CDT CPT-15077 Fluzone High-Dose Intramuscular Suspension 15:09:08 CDT CPT-76736 Administration single or combination vaccine inc oral 17 :07:02 ARBORER CPT-43408 Influenza High Dose age 65+ 17:07:02 ARBORER
--- OUTSIDE RECORDS SUMMARY | 2017-02-27 21:53 | XMS REPORT | Clinical Summary ---
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 Tracie Arrington ROOFING APPLICATOR Chronic airway obstruction, not elsewhere classified Family history of myocardial infarction V17.3 Active Tracie Arrington ROOFING APPLICATOR Family history of ischemic heart disease CAD 414.00 Active Tracie Arrington ROOFING APPLICATOR Coronary atherosclerosis of unspecified type of vessel, prairie band or graft Peripheral edema 782.3 Active Austin Albarado MD Edema Shortness of breath 786.05 Active Simona Galloway APRN Shortness of breath Hypotension 458.9 Active Simona Galolway APRN Hypotension, unspecified Shingles 053.9 Active Simnoa Galloway APRN Herpes zoster without mention of [...] hours as needed 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 ALBUTEROL SULFATE 51788211682 Active Nella José LPN Active IPRATROPIUM BROMIDE 0.02 % INH SOLN 1 q 6 hr PRN Dx: J44.1 IPRATROPIUM BROMIDE 48811766720 Active Nella José LPN Active PROAIR HFA 108 (90 BASE) MCG/ACT AERS take 1-2 puffs q 4-6 hrs prn cough/ SOB ALBUTEROL SULFATE 63162319112 Active Nella José LPN Active IPRATROPIUM-ALBUTEROL 0.5-2.5 (3) MG/3ML SOLN 1 VIAL NEB Q 4-6 HRS PRN 04/18 IPRATROPIUM-ALBUTEROL 23187540011 No Longer Active Austin Albarado MD Active ATIVAN 0.5 MG TAB 1 po QD PRN Anxiety LORAZEPAM 92030869915 Active Nella José LPN Active PREDNISONE 20 MG ORAL TABS 3 tabs po for 3 days than,2 tabs po for 3 days,1 tab po for 3 days, 1/2 tab po for 3 days. PREDNISONE 56712162266 No Longer Active iSmona Galloway APRN Active LEVAQUIN 500 MG TAB 1 tablet by mouth daily LEVOFLOXACIN 56445055574 No Longer Active Simona Galloway APRN Active PREDNISONE 20 MG TAB take 3 tabs daily for 3 days, 2 tabs daily for 3 days, 1 tab daily for 3 days, 1/2 tab daily for 3 days PREDNISONE 92314847707 No Longer Active Austin Albarado MD Active LEVAQUIN 500 MG TAB 1 tablet by mouth daily LEVOFLOXACIN 46335082762 No Longer Active Madhavi Fiore Active FUROSEMIDE 20 MG TABS take 1 tab po BID for swelling FUROSEMIDE 82015738115 Active Austin Albarado MD Active AMOXICILLIN 500 MG ORAL TABS Take one by mouth 3 times daily, morning, afternoon and evening.] AMOXICILLIN 32904224670 No Longer Active Garcia Stroud MD Active PREDNISONE 20 MG ORAL TABS 3 daily for 3 days than, 2 tabs daily for 3 days than, 2 tabs daily for 3 days than, 1 tab daily for 3 days than 1/2 tab daily for 3 days. PREDNISONE 28471647907 No Longer Active Tracie Arrington APRN Active FLUTICASONE PROPIONATE 50 MCG/ACT SUSP 1 to 2 sprays each nostril daily 08/21 FLUTICASONE PROPIONATE 19384586559 Active Simona Galloway APRN Active PREDNISONE 10 MG TAB take 1 tab po qday for severe COPD PREDNISONE 09105751876 Active Austin Albarado MD Active PREDNISONE 20 MG ORAL TABS 3 TABS PO FOR 3 DAYS,THAN 2 TABS FOR 3 DAYS THAN, 1 TAB FOR 3 DAYS THAN, 1/2 TAB FOR 3 DAYS. PREDNISONE 46982221825 No Longer Active Austin Albarado MD Active LEVAQUIN 500 MG TAB 1 tablet by mouth daily for 10 days. LEVOFLOXACIN 34366046291 No Longer Active Austin Albarado MD Active PREDNISONE 20 MG TAB take 3 tabs daily for 3 days, 2 tabs daily for 3 days, 1 tab daily for 3 days, 1/2 tab daily for 3 days PREDNISONE 27289180467 No Longer Active Simona Galloway APRN Active ZITHROMAX 1 GM ORAL PACK DIRECTED AZITHROMYCIN 35961623984 No Longer Active Simona Galloway APRN Active PREDNISONE 20 MG TAB 2 tabs daily for 4 days, 1 tab daily for 4 days, 1/2 tab daily for 4 days PREDNISONE 99160022017 No Longer Active Austin Albarado MD Active LEVAQUIN 500 MG TAB 1 tablet by mouth daily LEVOFLOXACIN 51518744163 No Longer Active Austin Albarado MD Active PREDNISONE 20 MG TAB take 3 tabs daily for 3 days, 2 tabs daily for 3 days, 1 tab daily for 3 days, 1/2 tab daily for 3 days PREDNISONE 23295151551 No Longer Active Austin Albarado MD Active DOXYCYCLINE HYCLATE 100 MG CAP 1 cap by mouth twice daily DOXYCYCLINE HYCLATE 32907596562 No Longer Active Esperanza Modi APRN Active ALBUTEROL SULFATE (2.5 MG/3ML) 0.083% NEBU nebulize 1 vial q 4-6 hours prn shortness of breath ALBUTEROL SULFATE 36590734983 No Longer Active Esperanza Modi APRN Active TORSEMIDE 20 MG TABS 1 TAB PO BID TORSEMIDE 45437641690 No Longer Active Esperanza Modi APRN Active PREDNISONE 20 MG TAB 2 tabs daily for 3 days, 1 tab daily for 3 days, 1/2 tab daily for 2 days PREDNISONE 65612868747 No Longer Active Austin Albarado MD Active LEVOFLOXACIN 500 MG ORAL TABS take 1 tab po qday LEVOFLOXACIN 28187466270 No Longer Active Austin Albarado MD Active PREDNISONE 20 MG TAB 2 tablets today, then 1 tablet by mouth days 2-5 PREDNISONE 53200202880 No Longer Active Austin Albarado MD Active AZITHROMYCIN 500 MG SOLR 1 po q day AZITHROMYCIN 20386359332 No Longer Active Austin Albarado MD Active KEFLEX 500 MG CAP 1 po TID x 7 days CEPHALEXIN 64234397280 No Longer Active Tristan Vaughn MD Active EQL VISION FORMULA TABS 1 TAB PO DAILY MULTIPLE VITAMINS-MINERALS 98655907839 No Longer Active Tristan Vaughn MD Active CHANTIX STARTING MONTH ELVIS 0.5 MG X 11 & 1 MG X 42 TABS 0.5mg daily for 3 days , then 0.5mg BID for 4 days, then 1mg BID VARENICLINE TARTRATE 88902841489 No Longer Active Tristan Vaughn MD Active LEVOTHYROXINE SODIUM 200 MCG TABS 1 TAB PO DAILY LEVOTHYROXINE SODIUM 60050914011 No Longer Active Tristan Vaughn MD Active LIOTHYRONINE SODIUM 50 MCG TABS take 1 tab po qday for hypothyroidism LIOTHYRONINE SODIUM 06542044631 No Longer Active Austin Albarado MD Active SYNTHROID 0.025 MG TAB 1 tablet by mouth daily LEVOTHYROXINE SODIUM 19481746764 No Longer Active Austin Albarado MD Active ARMOUR THYROID 120 MG TABS take 1 tab po qday for hypothyroidism THYROID 66059591870 Active Austin Albarado MD Active FLONASE 50 MCG/ACT SUSP 1 spray each nostril am and hs FLUTICASONE PROPIONATE Active Simona Galloway ROOFING APPLICATOR Active ZITHROMAX 1 GM PACK DIRECTED AZITHROMYCIN 26047295938 No Longer Active Austin Albarado MD Active PREDNISONE 20 MG TAB 2 tabs daily for 3 days, 1 tab daily for 3 days, 1/2 tab daily for 2 days PREDNISONE 41726319182 No Longer Active Austin Albarado MD Active ZITHROMAX 250 MG TAB 2 po today, then 1 po q days 2-5 AZITHROMYCIN 45395502585 No Longer Active Austin Albarado MD Active NYSTATIN-TRIAMCINOLONE 222849-8.1 UNIT/GM-% OINT Apply to affected area TID NYSTATIN-TRIAMCINOLONE 85787914466 Active Austin Albarado MD Active ADVAIR DISKUS 500-50 MCG/DOSE AEPB ONE INH BID FLUTICASONE- SALMETEROL 46838175247 Active Austin Albarado MD Active ALBUTEROL SULFATE (2.5 MG/3ML) 0.083% NEBU nebulize 1 vial q 4-6 hours prn shortness of breath ALBUTEROL SULFATE (2.5 MG/3ML) 0.083% NEBU 658027 ALBUTEROL SULFATE Inactive DOXYCYCLINE HYCLATE 100 MG CAP 1 cap by mouth twice daily DOXYCYCLINE HYCLATE 100 MG CAP 8619880 DOXYCYCLINE HYCLATE Inactive KEFLEX 500 MG CAP 1 po TID x 7 days KEFLEX 500 MG CAP 236020 CEPHALEXIN Inactive LEVOTHYROXINE SODIUM 200 MCG TABS 1 TAB PO DAILY LEVOTHYROXINE SODIUM 200 MCG TABS 368681 LEVOTHYROXINE SODIUM Inactive LIOTHYRONINE SODIUM 50 MCG TABS take 1 tab po qday for hypothyroidism LIOTHYRONINE SODIUM 50 MCG TABS 986894 LIOTHYRONINE SODIUM Inactive PREDNISONE 20 MG TAB 2 tablets today, then 1 tablet by mouth days 2-5 PREDNISONE 20 MG TAB 261662 PREDNISONE Inactive PREDNISONE 20 MG ORAL TABS 3 TABS PO FOR 3 DAYS,THAN 2 TABS FOR 3 DAYS THAN, 1 TAB FOR 3 DAYS THAN, 1/2 TAB FOR 3 DAYS. PREDNISONE 20 MG ORAL TABS 231252 PREDNISONE Inactive PREDNISONE 20 MG ORAL TABS 3 daily for 3 days than, 2 tabs daily for 3 days than, 2 tabs daily for 3 days than, 1 tab daily for 3 days than 1/2 tab daily for 3 days. PREDNISONE 20 MG ORAL TABS 157610 PREDNISONE Inactive PREDNISONE 20 MG TAB 2 tabs daily for 4 days, 1 tab daily for 4 days, 1/2 tab daily for 4 days PREDNISONE 20 MG TAB 496609 PREDNISONE Inactive PREDNISONE 20 MG TAB 2 tabs daily for 3 days, 1 tab daily for 3 days, 1/2 tab daily for 2 days PREDNISONE 20 MG TAB 317707 PREDNISONE Inactive PREDNISONE 20 MG TAB take 3 tabs daily for 3 days, 2 tabs daily for 3 days, 1 tab daily for 3 days, 1/2 tab daily for 3 days PREDNISONE 20 MG TAB 009342 PREDNISONE Inactive PREDNISONE 20 MG TAB take 3 tabs daily for 3 days, 2 tabs daily for 3 days, 1 tab daily for 3 days, 1/2 tab daily for 3 days PREDNISONE 20 MG TAB 901852 PREDNISONE Inactive PREDNISONE 20 MG TAB take 3 tabs daily for 3 days, 2 tabs daily for 3 days, 1 tab daily for 3 days, 1/2 tab daily for 3 days PREDNISONE 20 MG TAB 308085 PREDNISONE Inactive PREDNISONE 20 MG ORAL TABS 3 tabs po for 3 days than,2 tabs po for 3 days,1 tab po for 3 days, 1/2 tab po for 3 days. PREDNISONE 20 MG ORAL TABS 952579 PREDNISONE Inactive PREDNISONE 20 MG TAB 2 tabs daily for 3 days, 1 tab daily for 3 days, 1/2 tab daily for 2 days PREDNISONE 20 MG TAB 009919 PREDNISONE Inactive SYNTHROID 0.025 MG TAB 1 tablet by mouth daily SYNTHROID 0.025 MG TAB 126861 LEVOTHYROXINE SODIUM Inactive ZITHROMAX 1 GM PACK DIRECTED ZITHROMAX 1 GM PACK 121871 AZITHROMYCIN Inactive ZITHROMAX 1 GM ORAL PACK DIRECTED ZITHROMAX 1 GM ORAL PACK 533101 AZITHROMYCIN Inactive AMOXICILLIN 500 MG ORAL TABS Take one by mouth 3 times daily, morning, afternoon and evening.] AMOXICILLIN 500 MG ORAL TABS 513421 AMOXICILLIN Inactive TORSEMIDE 20 MG TABS 1 TAB PO BID TORSEMIDE 20 MG TABS 604122 TORSEMIDE Inactive LEVAQUIN 500 MG TAB 1 tablet by mouth daily LEVAQUIN 500 MG TAB 954814 LEVOFLOXACIN Inactive LEVAQUIN 500 MG TAB 1 tablet by mouth daily LEVAQUIN 500 MG TAB 759074 LEVOFLOXACIN Inactive LEVAQUIN 500 MG TAB 1 tablet by mouth daily for 10 days. LEVAQUIN 500 MG TAB 379954 LEVOFLOXACIN Inactive LEVAQUIN 500 MG TAB 1 tablet by mouth daily LEVAQUIN 500 MG TAB 457398 LEVOFLOXACIN Inactive LEVOFLOXACIN 500 MG ORAL TABS take 1 tab po qday LEVOFLOXACIN 500 MG ORAL TABS 761745 LEVOFLOXACIN Inactive ZITHROMAX 250 MG TAB 2 po today, then 1 po q days 2-5 ZITHROMAX 250 MG TAB 5316983 AZITHROMYCIN Inactive AZITHROMYCIN 500 MG SOLR 1 po q day AZITHROMYCIN 500 MG SOLR 26394569314 AZITHROMYCIN Inactive EQL VISION FORMULA TABS 1 TAB PO DAILY EQL VISION FORMULA TABS MULTIPLE VITAMINS-MINERALS Inactive CHANTIX STARTING MONTH ELVIS 0.5 MG X 11 & 1 MG X 42 TABS 0.5mg daily for 3 days , then 0.5mg BID for 4 days, then 1mg BID CHANTIX STARTING MONTH ELVIS 0.5 MG X 11 & 1 MG X 42 TABS VARENICLINE TARTRATE Inactive Advance Directives Directive Description Start Date [...] pressure, diastolic - 8462-4 57 mm[Hg] BP efrnandes blood pressure, systolic - 8480-6 131 mm[Hg] [...] Peptide - Chemistry sodium, serum 140 mmol/L 832-025 4916/02/09 carbon dioxide, venous blood 39.2 mmol/L 21.0-32.0 [...] 43.52 m[iU]/mL 0.36-3.74 sodium, serum 140 mmol/L 680-026 0956/04/06 carbon dioxide, venous blood 36.3 mmol/L 21.0-32.0 potassium, serum 4.9 mmol/L 3.5-5.2 chloride, serum 100 mmol/L 98-107 blood glucose 62 mg/dL 65-110 urea nitrogen, blood 24 mg/dL 7-18 creatinine, serum 1.09 mg/dL 0.55-1.30 alanine aminotransferase (SGPT), serum 44 U/L 12-78 aspartate aminotransferase (SGOT), serum 25 U/L 15-37 calcium, serum 8.7 mg/dL 8.5-10.1 bilirubin, serum, total 0.50 mg/dL 0.00-1.00 cholesterol, serum 189 mg/dL 214-287 4867/04/06 triglyceride, serum, fasting 117 mg/dL 30-200 HDL [...] 142-424 Encounters Code Encounter Date Provider Facility CPT-85011 Level 4 Est. Patient 17:54:41 ASSISTANT PROJECT ENGINEER Austin Albarado MD [facility]-70447 Level 4 Est. Patient 16:11:14 ASSISTANT PROJECT ENGINEER Austin Albarado MD [facility]-81921 Level 4 Est. Patient 23:08:56 CDT Austin Albarado MD [facility]-37887 Level 4 Est. Patient 13:27:28 CDT Garcia Stroud MD [facility]-98114 Level 4 Est. Patient 10:51:20 CDT Austin Albarado MD [facility]-13275 Level 4 Est. Patient 20:09:43 ASSISTANT PROJECT ENGINEER Austin Albarado MD [facility]-75146 Level 4 Est. Patient 21:00:28 CDT Austin Albarado MD [facility] CPT-36781 Level 4 Est. Patient 10:03:37 CDT Austin Albarado MD [facility] CPT-87936 Level 3 Est. Patient 10:50:28 ASSISTANT PROJECT ENGINEER Austin Albarado MD [facility] CPT-98587 Level 4 Est. Patient 21:31:41 ASSISTANT PROJECT ENGINEER Austin Albarado MD [facility] CPT-32666 Level 3 Est. Patient 16:22:54 ASSISTANT PROJECT ENGINEER Jann Law DO [facility] CPT-15453 Level 3 Est. Patient 11:04:53 ASSISTANT PROJECT ENGINEER Tristan Vaughn MD [facility] CPT-58041 Level 4 Est. Patient 09:50:59 CDT Austin Albarado MD [facility] CPT-20283 Level 4 Est. Patient 09:29:00 CDT Austin Albarado MD [facility]-22761 Level 4 Est. Patient 14:23:07 CDT Austin Albarado MD [facility] CPT-98973 Level 4 Est. Patient 14:27:26 CDT Austin Albarado MD [facility] CPT-81064 Level 4 Est. Patient 12:51:43 ASSISTANT PROJECT ENGINEER Austin Albarado MD [facility] CPT-58041 Level 3 New Patient 14:17:38 ASSISTANT PROJECT ENGINEER Austin Albarado MD [facility] CPT-53324 Level 3 New Patient 11:28:18 ASSISTANT PROJECT ENGINEER Austin Albarado MD [facility] Procedures Code Procedure Name Date Entry Date Standard Description CPT-TCMM Transitional Care Mgmt-Moderate 14:53:36 ASSISTANT PROJECT ENGINEER CPT-92699 No Charge Offi Visit 10:19:33 ASSISTANT PROJECT ENGINEER CPT-32006 Chest 2V Frontal and Lat - XRAY USE ONLY 15:01:41 ASSISTANT PROJECT ENGINEER CPT-54224 First Vx - Ix admin for Medicare patients 16:00:49 CDT CPT-37569 Fluzone High-Dose Intramuscular Suspension 16:00:49 CDT CPT-G0009 Administration of Pneumococcal Vaccine 13:25:27 CDT CPT-30423 Prevnar 13 Intramuscular Suspension 13:25:27 CDT 09/26 CPT-G0438 Initial Annual Wellness Exam 11:28:26 CDT CPT-45381 Chest 2V Frontal and Lat 15:00:00 ASSISTANT PROJECT ENGINEER CPT-80548 Breathing Tx 14:49:25 ASSISTANT PROJECT ENGINEER CPT-44198 Fluzone High Dose 15:08:41 ASSISTANT PROJECT ENGINEER CPT-37247 Immunization Single Admin 15:08:41 ASSISTANT PROJECT ENGINEER CPT-28244 Fluzone High Dose 17:31:19 CDT CPT-77051 Administration single or combination vaccine inc oral 17 :31:19 CDT CPT-60627 Venipuncture Draw Fee 11:03:05 CDT CPT-TCMM Transitional Care Mgmt-Moderate 16:32:35 CDT CPT-50167 Chest 2V Frontal and Lat 11:51:09 CDT CPT-G0008 Administration of Influenza Virus Vaccine 15:09:08 CDT CPT-21663 Fluzone High-Dose Intramuscular Suspension 15:09:08 CDT CPT-02541 Administration single or combination vaccine inc oral 17 :07:02 ASSISTANT PROJECT ENGINEER CPT-07489 Influenza High Dose age 65+ 17:07:02 ASSISTANT PROJECT ENGINEER
--- OUTSIDE RECORDS SUMMARY | 2017-02-27 21:54 | XMS REPORT | Clinical Summary ---
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 Tracie Arrington PHARM TECH Chronic airway obstruction, not elsewhere classified Family history of myocardial infarction V17.3 Active Tracie Arrington PHARM TECH Family history of ischemic heart disease CAD 414.00 Active Tracie Arrington PHARM TECH Coronary atherosclerosis of unspecified type of vessel, [place] or graft Peripheral edema 782.3 Active Austin [...] Generic Name NDC Status Provider Patient Instruction KEFLEX 500 MG CAP 1 po BID x 7 days CEPHALEXIN 71923577383 No Longer Active Mica Sneed Active KEFLEX 500 MG CAP 1 po BID x 7 days CEPHALEXIN 37426149289 No Longer Active Simona Galloway APRN Active ACYCLOVIR 400 MG TABS 1 pill three times daily ACYCLOVIR 65849110281 No Longer Active Austin Albarado MD Active ACYCLOVIR 400 MG TABS 1 pill three times daily ACYCLOVIR 24134318186 No Longer Active Austin Albarado MD Active ALBUTEROL SULFATE 0.083 % NEBU SOLN one vial per nebulizer every 4 hours as needed Dx. J44.1 ALBUTEROL SULFATE 91850494799 Active Austin Albarado MD Active IPRATROPIUM BROMIDE 0.02 % INH SOLN 1 q 6 hr PRN Dx: J44.1 IPRATROPIUM BROMIDE 03887978691 Active Nella José LPN Active PROAIR HFA 108 (90 BASE) MCG/ACT AERS take 1-2 puffs q 4-6 hrs prn cough/ SOB ALBUTEROL SULFATE 20263636737 Active Nella José LPN Active IPRATROPIUM-ALBUTEROL 0.5-2.5 (3) MG/3ML SOLN 1 VIAL NEB Q 4-6 HRS PRN 04/18 IPRATROPIUM-ALBUTEROL 44555676238 No Longer Active Austin Albarado MD Active ATIVAN 0.5 MG TAB 1 po QD PRN Anxiety LORAZEPAM 90177030528 Active Austin Albarado MD Active PREDNISONE 20 MG ORAL TABS 3 tabs po for 3 days than,2 tabs po for 3 days,1 tab po for 3 days, 1/2 tab po for 3 days. PREDNISONE 16000396978 No Longer Active Simona Galloway APRN Active LEVAQUIN 500 MG TAB 1 tablet by mouth daily LEVOFLOXACIN 44879462066 No Longer Active Simona Galloway APRN Active PREDNISONE 20 MG TAB take 3 tabs daily for 3 days, 2 tabs daily for 3 days, 1 tab daily for 3 days, 1/2 tab daily for 3 days PREDNISONE 06401886202 No Longer Active Austin Albarado MD Active LEVAQUIN 500 MG TAB 1 tablet by mouth daily LEVOFLOXACIN 24913933449 No Longer Active Madhavi Fiore Active FUROSEMIDE 20 MG TABS take 1 tab po BID for swelling FUROSEMIDE 41438309161 Active Austin Albarado MD Active AMOXICILLIN 500 MG ORAL TABS Take one by mouth 3 times daily, morning, afternoon and evening.] AMOXICILLIN 13009118928 No Longer Active Garcia Stroud MD Active PREDNISONE 20 MG ORAL TABS 3 daily for 3 days than, 2 tabs daily for 3 days than, 2 tabs daily for 3 days than, 1 tab daily for 3 days than 1/2 tab daily for 3 days. PREDNISONE 12960137589 No Longer Active Tracie Arrington APRN Active FLUTICASONE PROPIONATE 50 MCG/ACT SUSP 1 to 2 sprays each nostril daily 08/21 FLUTICASONE PROPIONATE 06907453282 Active Simona Galloway APRN Active PREDNISONE 10 MG TAB take 1 tab po qday for severe COPD PREDNISONE 84926110985 Active Austin Albarado MD Active PREDNISONE 20 MG ORAL TABS 3 TABS PO FOR 3 DAYS,THAN 2 TABS FOR 3 DAYS THAN, 1 TAB FOR 3 DAYS THAN, 1/2 TAB FOR 3 DAYS. PREDNISONE 52505033949 No Longer Active Austin Albarado MD Active LEVAQUIN 500 MG TAB 1 tablet by mouth daily for 10 days. LEVOFLOXACIN 15906417481 No Longer Active Austin Albarado MD Active PREDNISONE 20 MG TAB take 3 tabs daily for 3 days, 2 tabs daily for 3 days, 1 tab daily for 3 days, 1/2 tab daily for 3 days PREDNISONE 08325465357 No Longer Active Simona Galloway APRN Active ZITHROMAX 1 GM ORAL PACK DIRECTED AZITHROMYCIN 51434117975 No Longer Active Simona Galloway APRN Active PREDNISONE 20 MG TAB 2 tabs daily for 4 days, 1 tab daily for 4 days, 1/2 tab daily for 4 days PREDNISONE 04290053944 No Longer Active Austin Albarado MD Active LEVAQUIN 500 MG TAB 1 tablet by mouth daily LEVOFLOXACIN 38834916971 No Longer Active Austin Albarado MD Active PREDNISONE 20 MG TAB take 3 tabs daily for 3 days, 2 tabs daily for 3 days, 1 tab daily for 3 days, 1/2 tab daily for 3 days PREDNISONE 15651710082 No Longer Active Austin Albarado MD Active DOXYCYCLINE HYCLATE 100 MG CAP 1 cap by mouth twice daily DOXYCYCLINE HYCLATE 74868804454 No Longer Active 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 PHARM TECH Active ALBUTEROL SULFATE (2.5 MG/3ML) 0.083% NEBU nebulize 1 vial q 4-6 hours prn shortness of breath ALBUTEROL SULFATE 20065162737 No Longer Active 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 PHARM TECH Active TORSEMIDE 20 MG TABS 1 TAB PO BID TORSEMIDE 15569559874 No Longer Active 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 PHARM TECH Active PREDNISONE 20 MG TAB 2 tabs daily for 3 days, 1 tab daily for 3 days, 1/2 tab daily for 2 days PREDNISONE 75990728613 No Longer Active Austin Albarado MD Active LEVOFLOXACIN 500 MG ORAL TABS take 1 tab po qday LEVOFLOXACIN 33761936758 No Longer Active Austin Albarado MD Active PREDNISONE 20 MG TAB 2 tablets today, then 1 tablet by mouth days 2-5 PREDNISONE 59566743262 No Longer Active Austin Albarado MD Active AZITHROMYCIN 500 MG SOLR 1 po q day AZITHROMYCIN 05891652586 No Longer Active Austin Albarado MD Active KEFLEX 500 MG CAP 1 po TID x 7 days CEPHALEXIN 12741323959 No Longer Active Tristan Vaughn MD Active EQL VISION FORMULA TABS 1 TAB PO DAILY MULTIPLE VITAMINS-MINERALS 16942552631 No Longer Active Tristan Vaughn MD Active CHANTIX STARTING MONTH ELVIS 0.5 MG X 11 & 1 MG X 42 TABS 0.5mg daily for 3 days , then 0.5mg BID for 4 days, then 1mg BID VARENICLINE TARTRATE 46971577549 No Longer Active Tristan Vaughn MD Active LEVOTHYROXINE SODIUM 200 MCG TABS 1 TAB PO DAILY LEVOTHYROXINE SODIUM 77669917233 No Longer Active Tristan Vaughn MD Active LIOTHYRONINE SODIUM 50 MCG TABS take 1 tab po qday for hypothyroidism LIOTHYRONINE SODIUM 12838982558 No Longer Active Austin Albarado MD Active SYNTHROID 0.025 MG TAB 1 tablet by mouth daily LEVOTHYROXINE SODIUM 61283214361 No Longer Active Austin Albarado MD Active ARMOUR THYROID 120 MG TABS take 1 tab po qday for hypothyroidism THYROID 71853849344 Active Austin Albarado MD Active FLONASE 50 MCG/ACT SUSP 1 spray each nostril am and hs FLUTICASONE PROPIONATE Active Simona Galloway APRN Active ZITHROMAX 1 GM PACK DIRECTED AZITHROMYCIN 69787692112 No Longer Active Austin Albarado MD Active PREDNISONE 20 MG TAB 2 tabs daily for 3 days, 1 tab daily for 3 days, 1/2 tab daily for 2 days PREDNISONE 87172331043 No Longer Active Austin Albarado MD Active ZITHROMAX 250 MG TAB 2 po today, then 1 po q days 2-5 AZITHROMYCIN 81508722976 No Longer Active Austin Albarado MD Active NYSTATIN-TRIAMCINOLONE 066114-0.1 UNIT/GM-% OINT Apply to affected area TID NYSTATIN-TRIAMCINOLONE 58123442423 Active Austin Albarado MD Active ADVAIR DISKUS 500-50 MCG/DOSE AEPB ONE INH BID FLUTICASONE- SALMETEROL 83211651887 Active Austin Albarado MD Active ZITHROMAX 1 GM PACK DIRECTED ZITHROMAX 1 GM PACK 286809 AZITHROMYCIN Inactive SYNTHROID 0.025 MG TAB 1 tablet by mouth daily SYNTHROID 0.025 MG TAB 964747 LEVOTHYROXINE SODIUM Inactive LIOTHYRONINE SODIUM 50 MCG TABS take 1 tab po qday for hypothyroidism LIOTHYRONINE SODIUM 50 MCG TABS 193808 LIOTHYRONINE SODIUM Inactive LEVOTHYROXINE SODIUM 200 MCG TABS 1 TAB PO DAILY LEVOTHYROXINE SODIUM 200 MCG TABS 642700 LEVOTHYROXINE SODIUM Inactive CHANTIX STARTING MONTH ELVIS [...] po q day AZITHROMYCIN 500 MG SOLR 73214246069 AZITHROMYCIN Inactive PREDNISONE 20 MG TAB 2 tablets today, then 1 tablet by mouth days 2-5 PREDNISONE 20 MG TAB 019572 PREDNISONE Inactive TORSEMIDE 20 MG TABS 1 TAB PO BID TORSEMIDE 20 MG TABS 407330 TORSEMIDE Inactive ALBUTEROL SULFATE (2.5 MG/3ML) 0.083% NEBU nebulize 1 vial q 4-6 hours prn shortness of breath ALBUTEROL SULFATE (2.5 MG/3ML) 0.083% NEBU 425814 ALBUTEROL SULFATE Inactive LEVAQUIN 500 MG TAB 1 tablet by mouth daily LEVAQUIN 500 MG TAB 258957 LEVOFLOXACIN Inactive PREDNISONE 20 MG TAB 2 tabs daily for 4 days, 1 tab daily for 4 days, 1/2 tab daily for 4 days PREDNISONE 20 MG TAB 206252 PREDNISONE Inactive ZITHROMAX 1 GM ORAL PACK DIRECTED ZITHROMAX 1 GM ORAL PACK 240794 AZITHROMYCIN Inactive LEVAQUIN 500 MG TAB 1 tablet by mouth daily for 10 days. LEVAQUIN 500 MG TAB 744632 LEVOFLOXACIN Inactive PREDNISONE 20 MG ORAL TABS 3 TABS PO FOR 3 DAYS,THAN 2 TABS FOR 3 DAYS THAN, 1 TAB FOR 3 DAYS THAN, 1/2 TAB FOR 3 DAYS. PREDNISONE 20 MG ORAL TABS 445388 PREDNISONE Inactive PREDNISONE 20 MG ORAL TABS 3 daily for 3 days than, 2 tabs daily for 3 days than, 2 tabs daily for 3 days than, 1 tab daily for 3 days than 1/2 tab daily for 3 days. PREDNISONE 20 MG ORAL TABS 445375 PREDNISONE Inactive AMOXICILLIN 500 MG ORAL TABS Take one by mouth 3 times daily, morning, afternoon and evening.] AMOXICILLIN 500 MG ORAL TABS 727411 AMOXICILLIN Inactive LEVAQUIN 500 MG TAB 1 tablet by mouth daily LEVAQUIN 500 MG TAB 343081 LEVOFLOXACIN Inactive LEVAQUIN 500 MG TAB 1 tablet by mouth daily LEVAQUIN 500 MG TAB 637557 LEVOFLOXACIN Inactive PREDNISONE 20 MG ORAL TABS 3 tabs po for 3 days than,2 tabs po for 3 days,1 tab po for 3 days, 1/2 tab po for 3 days. PREDNISONE 20 MG ORAL TABS 967082 PREDNISONE Inactive ZITHROMAX 250 MG TAB 2 po today, then 1 po q days 2-5 ZITHROMAX 250 MG TAB 5759107 AZITHROMYCIN Inactive PREDNISONE 20 MG TAB 2 tabs daily for 3 days, 1 tab daily for 3 days, 1/2 tab daily for 2 days PREDNISONE 20 MG TAB 474580 PREDNISONE Inactive KEFLEX 500 MG CAP 1 po TID x 7 days KEFLEX 500 MG CAP 305745 CEPHALEXIN Inactive LEVOFLOXACIN 500 MG ORAL TABS take 1 tab po qday LEVOFLOXACIN 500 MG ORAL TABS 026881 LEVOFLOXACIN Inactive PREDNISONE 20 MG TAB 2 tabs daily for 3 days, 1 tab daily for 3 days, 1/2 tab daily for 2 days PREDNISONE 20 MG TAB 808966 PREDNISONE Inactive DOXYCYCLINE HYCLATE 100 MG CAP 1 cap by mouth twice daily DOXYCYCLINE HYCLATE 100 MG CAP 5772744 DOXYCYCLINE HYCLATE Inactive PREDNISONE 20 MG TAB take 3 tabs daily for 3 days, 2 tabs daily for 3 days, 1 tab daily for 3 days, 1/2 tab daily for 3 days PREDNISONE 20 MG TAB 124968 PREDNISONE Inactive PREDNISONE 20 MG TAB take 3 tabs daily for 3 days, 2 tabs daily for 3 days, 1 tab daily for 3 days, 1/2 tab daily for 3 days PREDNISONE 20 MG TAB 450247 PREDNISONE Inactive PREDNISONE 20 MG TAB take 3 tabs daily for 3 days, 2 tabs daily for 3 days, 1 tab daily for 3 days, 1/2 tab daily for 3 days PREDNISONE 20 MG TAB 930317 PREDNISONE Inactive ACYCLOVIR 400 MG TABS 1 pill three times daily ACYCLOVIR 400 MG TABS 479938 ACYCLOVIR Inactive ACYCLOVIR 400 MG TABS 1 pill three times daily ACYCLOVIR 400 MG TABS 387040 ACYCLOVIR Inactive KEFLEX 500 MG CAP 1 po BID x 7 days KEFLEX 500 MG CAP 482993 CEPHALEXIN Inactive KEFLEX 500 MG CAP 1 po BID x 7 days KEFLEX 500 MG CAP 845444 CEPHALEXIN Inactive Advance Directives Directive Description Start Date PERMISSION TO SHARE DISCUSSED WITH PATIENT -- NO DECISION MADE Immunizations Vaccine Administration Date Value Standard Description pneumococcal immunization administered Pneumovax 23 [[id number]] pneumococcal polysaccharide vaccine, 23 valent Vital Signs Date Name Value Unit Range Description blood pressure, diastolic - 8462-4 61 mm[Hg] BP fernandes blood pressure, systolic - 8480-6 119 mm[Hg] BP sys height E&M - 8302-2 68 [in_us] Bdy height pulse rate E&M - 8867-4 119 /min Heart rate temperature E&M 98.4 [degF] Body temperature weight E&M - 3141-9 280 [lb_av] Weight Measured blood pressure, diastolic - 8462-4 55 mm[Hg] BP fernandes blood pressure, systolic - 8480-6 140 mm[Hg] BP sys height E&M - 8302-2 68 [in_us] Bdy height pulse rate E&M - 8867-4 119 /min Heart rate temperature E&M 98.6 [degF] Body temperature weight E&M - 3141-9 275 [lb_av] Weight Measured blood pressure, diastolic - 8462-4 63 mm[Hg] [...] E&M - 3141-9 264.5 [lb_av] Weight Measured Diagnostic Results Date Name [...] Peptide - Chemistry sodium, serum 140 mmol/L 496-209 0832/02/09 carbon dioxide, venous blood 39.2 mmol/L 21.0-32.0 [...] 0.00-1.00 Encounters Code Encounter Date Provider Facility CPT-99975 Level 3 Est. Patient 16:07:19 CDT Simona Galloway APRN [facility] CPT-02376 Level 4 Est. Patient 13:31:03 CDT Austin Albarado MD [facility] CPT-19828 Level 4 Est. Patient 17:54:41 CHAR FILTER OPERATOR Austin Albarado MD [facility] CPT-92785 Level 4 Est. Patient 16:11:14 CHAR FILTER OPERATOR Austin Albarado MD [facility] CPT-98066 Level 4 Est. Patient 23:08:56 CDT Austin Albarado MD [facility] CPT-56637 Level 4 Est. Patient 13:27:28 CDT Garcia Stroud MD [facility]-63784 Level 4 Est. Patient 10:51:20 CDT Austin Albarado MD [facility]-81808 Level 4 Est. Patient 20:09:43 CHAR FILTER OPERATOR Austin Albarado MD [facility]-44427 Level 4 Est. Patient 21:00:28 CDT Austin Albarado MD [facility] CPT-17734 Level 4 Est. Patient 10:03:37 CDT Austin Albarado MD [facility] CPT-40334 Level 3 Est. Patient 10:50:28 CHAR FILTER OPERATOR Austin [id number] Level 4 Est. Patient 21:31:41 CHAR FILTER OPERATOR Austin Albarado MD [facility] [id number] Level 3 Est. Patient 16:22:54 CHAR FILTER OPERATOR Jann Law DO [facility] CPT-36025 Level 3 Est. Patient 11:04:53 CHAR FILTER OPERATOR Tristan Vaughn MD [facility] CPT-07207 Level 4 Est. Patient 09:50:59 CDT Austin Albarado MD [id number] Level 4 Est. Patient 09:29:00 CDT Austin Albarado MD [facility]-41419 Level 4 Est. Patient 14:23:07 CDT Austin Albarado MD [facility] CPT-03597 Level 4 Est. Patient 14:27:26 CDT Austin Albarado MD [id number] Level 4 Est. Patient 12:51:43 CHAR FILTER OPERATOR Austin Albarado MD [facility] CPT-83787 Level 3 New Patient 14:17:38 CHAR FILTER OPERATOR Austin Albarado MD [facility] CPT-49532 Level 3 New Patient 11:28:18 CHAR FILTER OPERATOR Austin Albarado MD [facility] Procedures Code Procedure Name Date Entry Date Standard Description CPT-G0439 Subsequent Annual Wellness Exam 08:13:24 CDT CPT-TCMM Transitional Care Mgmt-Moderate 14:53:36 CHAR FILTER OPERATOR CPT-43403 No Charge Offi Visit 10:19:33 CHAR FILTER OPERATOR CPT-53212 Chest 2V Frontal and Lat - XRAY USE ONLY 15:01:41 CHAR FILTER OPERATOR CPT-55634 First Vx - Ix admin for Medicare patients 16:00:49 CDT CPT-95091 Fluzone High-Dose Intramuscular Suspension 16:00:49 CDT CPT-G0009 Administration of Pneumococcal Vaccine 13:25:27 CDT CPT-06378 Prevnar 13 Intramuscular Suspension 13:25:27 CDT 09/26 CPT-G0438 Initial Annual Wellness Exam 11:28:26 CDT CPT-40584 Chest 2V Frontal and Lat 15:00:00 CHAR FILTER OPERATOR CPT-93891 Breathing Tx 14:49:25 CHAR FILTER OPERATOR CPT-85160 Fluzone High Dose 15:08:41 CHAR FILTER OPERATOR CPT-32203 Immunization Single Admin 15:08:41 CHAR FILTER OPERATOR CPT-42316 Fluzone High Dose 17:31:19 CDT CPT-00862 Administration single or combination vaccine inc oral 17 :31:19 CDT CPT-99807 Venipuncture Draw Fee 11:03:05 CDT CPT-TCMM Transitional Care Mgmt-Moderate 16:32:35 CDT CPT-63280 Chest 2V Frontal and Lat 11:51:09 CDT CPT-G0008 Administration of Influenza Virus Vaccine 15:09:08 CDT CPT-32924 Fluzone High-Dose Intramuscular Suspension 15:09:08 CDT CPT-24567 Administration single or combination vaccine inc oral 17 :07:02 CHAR FILTER OPERATOR CPT-72307 Influenza High Dose age 65+ 17:07:02 CHAR FILTER OPERATOR
--- OUTSIDE RECORDS SUMMARY | 2017-02-27 21:55 | XMS REPORT | Clinical Summary ---
Author Author Admin, E Organization [employer] Address Unknown Phone Unavailable Allergies, Adverse Reactions, [...] the body U R I 465.9 Inactive Ausitn Albarado MD Acute upper respiratory infections of [...] Coronary atherosclerosis of unspecified type of vessel, [place] or graft Peripheral edema 782.3 Active Austin [...] 1/2 tab po for 3 days. PREDNISONE 29728518405 No Longer Active Simona Galloway APRN Active LEVAQUIN 500 MG TAB 1 tablet by mouth daily LEVOFLOXACIN 11653737806 No Longer Active Simona Galloway APRN Active PREDNISONE 20 MG TAB take 3 tabs daily for 3 days, 2 tabs daily for 3 days, 1 tab daily for 3 days, 1/2 tab daily for 3 days PREDNISONE 52305303186 No Longer Active Austin Albarado MD Active LEVAQUIN 500 MG TAB 1 tablet by mouth daily LEVOFLOXACIN 13853230662 No Longer Active Madhavi Fiore Active FUROSEMIDE 20 MG TABS take 1 tab po BID for swelling FUROSEMIDE 38460533495 Active Austin Albarado MD Active AMOXICILLIN 500 MG ORAL TABS Take one by mouth 3 times daily, morning, afternoon and evening.] AMOXICILLIN 90259099395 No Longer Active Garcia Stroud MD Active PREDNISONE 20 MG ORAL TABS 3 daily for 3 days than, 2 tabs daily for 3 days than, 2 tabs daily for 3 days than, 1 tab daily for 3 days than 1/2 tab daily for 3 days. PREDNISONE 39296620798 No Longer Active Tracie Arrington APRN Active FLUTICASONE PROPIONATE 50 MCG/ACT SUSP 1 to 2 sprays each nostril daily 08/21 FLUTICASONE PROPIONATE 44771563041 Active Simona Galloway APRN Active PREDNISONE 10 MG TAB take 1 tab po qday for severe COPD PREDNISONE 70571922377 Active Austin Albarado MD Active PREDNISONE 20 MG ORAL TABS 3 TABS PO FOR 3 DAYS,THAN 2 TABS FOR 3 DAYS THAN, 1 TAB FOR 3 DAYS THAN, 1/2 TAB FOR 3 DAYS. PREDNISONE 45624989859 No Longer Active Austin Albarado MD Active LEVAQUIN 500 MG TAB 1 tablet by mouth daily for 10 days. LEVOFLOXACIN 18177317216 No Longer Active Austin Albarado MD Active PREDNISONE 20 MG TAB take 3 tabs daily for 3 days, 2 tabs daily for 3 days, 1 tab daily for 3 days, 1/2 tab daily for 3 days PREDNISONE 69835837845 No Longer Active Simona Galloway APRN Active ZITHROMAX 1 GM ORAL PACK DIRECTED AZITHROMYCIN 29476799724 No Longer Active Simona Galloway APRN Active PREDNISONE 20 MG TAB 2 tabs daily for 4 days, 1 tab daily for 4 days, 1/2 tab daily for 4 days PREDNISONE 62283984621 No Longer Active Austin Albarado MD Active LEVAQUIN 500 MG TAB 1 tablet by mouth daily LEVOFLOXACIN 83138535021 No Longer Active Austin Albarado MD Active PREDNISONE 20 MG TAB take 3 tabs daily for 3 days, 2 tabs daily for 3 days, 1 tab daily for 3 days, 1/2 tab daily for 3 days PREDNISONE 76131169269 No Longer Active Austin Albarado MD Active DOXYCYCLINE HYCLATE 100 MG CAP 1 cap by mouth twice daily DOXYCYCLINE HYCLATE 88288193243 No Longer Active 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 [employer] ACCOUNTANT Active ALBUTEROL SULFATE (2.5 MG/3ML) 0.083% NEBU nebulize 1 vial q 4-6 hours prn shortness of breath ALBUTEROL SULFATE 57784037499 No Longer Active 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 GENERAL LEDGER ACCOUNTANT Active TORSEMIDE 20 MG TABS 1 TAB PO BID TORSEMIDE 35759131981 No Longer Active 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 GENERAL LEDGER ACCOUNTANT Active PREDNISONE 20 MG TAB 2 tabs daily for 3 days, 1 tab daily for 3 days, 1/2 tab daily for 2 days PREDNISONE 74784414587 No Longer Active Austin Albarado MD Active LEVOFLOXACIN 500 MG ORAL TABS take 1 tab po qday LEVOFLOXACIN 62383389437 No Longer Active Austin Albarado MD Active PREDNISONE 20 MG TAB 2 tablets today, then 1 tablet by mouth days 2-5 PREDNISONE 94301517516 No Longer Active Austin Albarado MD Active AZITHROMYCIN 500 MG SOLR 1 po q day AZITHROMYCIN 76659710218 No Longer Active Austin Albarado MD Active KEFLEX 500 MG CAP 1 po TID x 7 days CEPHALEXIN 36743592333 No Longer Active Tristan Vaughn MD Active EQL VISION FORMULA TABS 1 TAB PO DAILY MULTIPLE VITAMINS-MINERALS 14864831919 No Longer Active Tristan Vaughn MD Active CHANTIX STARTING MONTH ELVIS 0.5 MG X 11 & 1 MG X 42 TABS 0.5mg daily for 3 days , then 0.5mg BID for 4 days, then 1mg BID VARENICLINE TARTRATE 78001452178 No Longer Active Tristan Vaughn MD Active LEVOTHYROXINE SODIUM 200 MCG TABS 1 TAB PO DAILY LEVOTHYROXINE SODIUM 80529297559 No Longer Active Tristan Vaughn MD Active LIOTHYRONINE SODIUM 50 MCG TABS take 1 tab po qday for hypothyroidism LIOTHYRONINE SODIUM 18331078616 No Longer Active Austin Albarado MD Active SYNTHROID 0.025 MG TAB 1 tablet by mouth daily LEVOTHYROXINE SODIUM 71390202000 No Longer Active Austin Albarado MD Active ARMOUR THYROID 120 MG TABS take 1 tab po qday for hypothyroidism THYROID 28995387750 Active Austin Albarado MD Active FLONASE 50 MCG/ACT SUSP 1 spray each nostril am and hs FLUTICASONE PROPIONATE Active Simona Galloway APRN Active ZITHROMAX 1 GM PACK DIRECTED AZITHROMYCIN 74841566255 No Longer Active Austin Albarado MD Active PREDNISONE 20 MG TAB 2 tabs daily for 3 days, 1 tab daily for 3 days, 1/2 tab daily for 2 days PREDNISONE 86050575467 No Longer Active Austin Albarado MD Active ZITHROMAX 250 MG TAB 2 po today, then 1 po q days 2-5 AZITHROMYCIN 25782789915 No Longer Active Austin Albarado MD Active NYSTATIN-TRIAMCINOLONE 128805-3.1 UNIT/GM-% OINT Apply to affected area TID NYSTATIN-TRIAMCINOLONE 72097902732 Active Austin Albarado MD Active IPRATROPIUM-ALBUTEROL 0.5-2.5 (3) MG/3ML SOLN 1 VIAL NEB Q 6 HRS PRN IPRATROPIUM-ALBUTEROL 05700323625 Active Simona Nilesh GENERAL LEDGER ACCOUNTANT Active PROAIR HFA 108 (90 BASE) MCG/ACT AERS take 1-2 puffs q4hrs prn cough/ SOB ALBUTEROL SULFATE 61959368078 Active Austin Albarado MD Active ADVAIR DISKUS 500-50 MCG/DOSE AEPB ONE INH BID FLUTICASONE- SALMETEROL 70926826119 Active Austin Albarado MD Active ZITHROMAX 1 GM PACK DIRECTED ZITHROMAX 1 GM PACK 582749 AZITHROMYCIN Inactive SYNTHROID 0.025 MG TAB 1 tablet by mouth daily SYNTHROID 0.025 MG TAB 849708 LEVOTHYROXINE SODIUM Inactive LIOTHYRONINE SODIUM 50 MCG TABS take 1 tab po qday for hypothyroidism LIOTHYRONINE SODIUM 50 MCG TABS 110345 LIOTHYRONINE SODIUM Inactive LEVOTHYROXINE SODIUM 200 MCG TABS 1 TAB PO DAILY LEVOTHYROXINE SODIUM 200 MCG TABS 072121 LEVOTHYROXINE SODIUM Inactive CHANTIX STARTING MONTH ELVIS [...] po q day AZITHROMYCIN 500 MG SOLR 15644244804 AZITHROMYCIN Inactive PREDNISONE 20 MG TAB 2 tablets today, then 1 tablet by mouth days 2-5 PREDNISONE 20 MG TAB 247086 PREDNISONE Inactive TORSEMIDE 20 MG TABS 1 TAB PO BID TORSEMIDE 20 MG TABS 832503 TORSEMIDE Inactive ALBUTEROL SULFATE (2.5 MG/3ML) 0.083% NEBU nebulize 1 vial q 4-6 hours prn shortness of breath ALBUTEROL SULFATE (2.5 MG/3ML) 0.083% NEBU 007026 ALBUTEROL SULFATE Inactive LEVAQUIN 500 MG TAB 1 tablet by mouth daily LEVAQUIN 500 MG TAB 156572 LEVOFLOXACIN Inactive PREDNISONE 20 MG TAB 2 tabs daily for 4 days, 1 tab daily for 4 days, 1/2 tab daily for 4 days PREDNISONE 20 MG TAB 827106 PREDNISONE Inactive ZITHROMAX 1 GM ORAL PACK DIRECTED ZITHROMAX 1 GM ORAL PACK 252289 AZITHROMYCIN Inactive LEVAQUIN 500 MG TAB 1 tablet by mouth daily for 10 days. LEVAQUIN 500 MG TAB 622924 LEVOFLOXACIN Inactive PREDNISONE 20 MG ORAL TABS 3 TABS PO FOR 3 DAYS,THAN 2 TABS FOR 3 DAYS THAN, 1 TAB FOR 3 DAYS THAN, 1/2 TAB FOR 3 DAYS. PREDNISONE 20 MG ORAL TABS 489171 PREDNISONE Inactive PREDNISONE 20 MG ORAL TABS 3 daily for 3 days than, 2 tabs daily for 3 days than, 2 tabs daily for 3 days than, 1 tab daily for 3 days than 1/2 tab daily for 3 days. PREDNISONE 20 MG ORAL TABS 454659 PREDNISONE Inactive AMOXICILLIN 500 MG ORAL TABS Take one by mouth 3 times daily, morning, afternoon and evening.] AMOXICILLIN 500 MG ORAL TABS 816722 AMOXICILLIN Inactive LEVAQUIN 500 MG TAB 1 tablet by mouth daily LEVAQUIN 500 MG TAB 425287 LEVOFLOXACIN Inactive LEVAQUIN 500 MG TAB 1 tablet by mouth daily LEVAQUIN 500 MG TAB 627034 LEVOFLOXACIN Inactive PREDNISONE 20 MG ORAL TABS 3 tabs po for 3 days than,2 tabs po for 3 days,1 tab po for 3 days, 1/2 tab po for 3 days. PREDNISONE 20 MG ORAL TABS 980286 PREDNISONE Inactive ZITHROMAX 250 MG TAB 2 po today, then 1 po q days 2-5 ZITHROMAX 250 MG TAB 8207828 AZITHROMYCIN Inactive PREDNISONE 20 MG TAB 2 tabs daily for 3 days, 1 tab daily for 3 days, 1/2 tab daily for 2 days PREDNISONE 20 MG TAB 574005 PREDNISONE Inactive KEFLEX 500 MG CAP 1 po TID x 7 days KEFLEX 500 MG CAP 124010 CEPHALEXIN Inactive LEVOFLOXACIN 500 MG ORAL TABS take 1 tab po qday LEVOFLOXACIN 500 MG ORAL TABS 908484 LEVOFLOXACIN Inactive PREDNISONE 20 MG TAB 2 tabs daily for 3 days, 1 tab daily for 3 days, 1/2 tab daily for 2 days PREDNISONE 20 MG TAB 936449 PREDNISONE Inactive DOXYCYCLINE HYCLATE 100 MG CAP 1 cap by mouth twice daily DOXYCYCLINE HYCLATE 100 MG CAP 8753167 DOXYCYCLINE HYCLATE Inactive PREDNISONE 20 MG TAB take 3 tabs daily for 3 days, 2 tabs daily for 3 days, 1 tab daily for 3 days, 1/2 tab daily for 3 days PREDNISONE 20 MG TAB 577966 PREDNISONE Inactive PREDNISONE 20 MG TAB take 3 tabs daily for 3 days, 2 tabs daily for 3 days, 1 tab daily for 3 days, 1/2 tab daily for 3 days PREDNISONE 20 MG TAB 567902 PREDNISONE Inactive PREDNISONE 20 MG TAB take 3 tabs daily for 3 days, 2 tabs daily for 3 days, 1 tab daily for 3 days, 1/2 tab daily for 3 days PREDNISONE 20 MG TAB 353214 PREDNISONE Inactive Advance Directives Directive Description Start [...] Peptide - Chemistry sodium, serum 140 mmol/L 807-931 5026/02/09 carbon dioxide, venous blood 39.2 mmol/L 21.0-32.0 [...] 43.52 m[iU]/mL 0.36-3.74 sodium, serum 140 mmol/L 780-943 7633/04/06 carbon dioxide, venous blood 36.3 mmol/L 21.0-32.0 potassium, serum 4.9 mmol/L 3.5-5.2 chloride, serum 100 mmol/L 98-107 blood glucose 62 mg/dL 65-110 urea nitrogen, blood 24 mg/dL 7-18 creatinine, serum 1.09 mg/dL 0.55-1.30 alanine aminotransferase (SGPT), serum 44 U/L 12-78 aspartate aminotransferase (SGOT), serum 25 U/L 15-37 calcium, serum 8.7 mg/dL 8.5-10.1 bilirubin, serum, total 0.50 mg/dL 0.00-1.00 cholesterol, serum 189 mg/dL 969-027 6394/04/06 triglyceride, serum, fasting 117 mg/dL 30-200 HDL [...] 142-424 Encounters Code Encounter Date Provider Facility CPT-96528 Level 4 Est. Patient 17:54:41 [employer] Austin Albarado MD [facility] CPT-13551 Level 4 Est. Patient 16:11:14 [employer] Austin Albarado MD [facility] CPT-09793 Level 4 Est. Patient 23:08:56 CDT Austin Albarado MD [facility] CPT-15913 Level 4 Est. Patient 13:27:28 CDT Garcia Stroud MD [facility] CPT-92866 Level 4 Est. Patient 10:51:20 CDT Austin Albarado MD [facility] CPT-37029 Level 4 Est. Patient 20:09:43 [employer] Austin Albarado MD [facility] CPT-41386 Level 4 Est. Patient 21:00:28 CDT Austin Albarado MD [facility] CPT-30856 Level 4 Est. Patient 10:03:37 CDT Austin Albarado MD [facility] CPT-61605 Level 3 Est. Patient 10:50:28 [employer] Austin Albarado MD [facility] CPT-90217 Level 4 Est. Patient 21:31:41 [employer] Austin Albarado MD [facility] CPT-54776 Level 3 Est. Patient 16:22:54 [employer] Jann Law DO [facility] CPT-56920 Level 3 Est. Patient 11:04:53 [employer] Tristan Vaughn MD [facility] CPT-06815 Level 4 Est. Patient 09:50:59 CDT Austin Albarado MD [facility] CPT-36266 Level 4 Est. Patient 09:29:00 CDT Austin Albarado MD [facility] CPT-08231 Level 4 Est. Patient 14:23:07 CDT Austin Albarado MD [facility] CPT-39195 Level 4 Est. Patient 14:27:26 CDT Austin Albarado MD [facility] CPT-94080 Level 4 Est. Patient 12:51:43 [employer] Austin Albarado MD [facility] CPT-36357 Level 3 New Patient 14:17:38 [employer] Austin Albarado MD [facility] CPT-57978 Level 3 New Patient 11:28:18 [employer] Austin Albarado MD [facility] Procedures Code Procedure Name Date Entry Date Standard Description CPT-51289 No Charge Offi Visit 10:19:33 [employer] CPT-65144 Chest 2V Frontal and Lat - XRAY USE ONLY 15:01:41 [employer] CPT-36724 First Vx - Ix admin for Medicare patients 16:00:49 CDT CPT-16899 Fluzone High-Dose Intramuscular Suspension 16:00:49 CDT CPT-G0009 Administration of Pneumococcal Vaccine 13:25:27 CDT CPT-94726 Prevnar 13 Intramuscular Suspension 13:25:27 CDT 09/26 CPT-G0438 Initial Annual Wellness Exam 11:28:26 CDT CPT-38750 Chest 2V Frontal and Lat 15:00:00 [employer] CPT-41788 Breathing Tx 14:49:25 [employer] CPT-11817 Fluzone High Dose 15:08:41 [employer] CPT-80499 Immunization Single Admin 15:08:41 [employer] CPT-09895 Fluzone High Dose 17:31:19 CDT CPT-17764 Administration single or combination vaccine inc oral 17 :31:19 CDT CPT-07197 Venipuncture Draw Fee 11:03:05 CDT CPT-TCMM Transitional Care Mgmt-Moderate 16:32:35 CDT CPT-48631 Chest 2V Frontal and Lat 11:51:09 CDT CPT-G0008 Administration of Influenza Virus Vaccine 15:09:08 CDT CPT-86298 Fluzone High-Dose Intramuscular Suspension 15:09:08 CDT CPT-82480 Administration single or combination vaccine inc oral 17 :07:02 [employer] CPT-80143 Influenza High Dose age 65+ 17:07:02 [employer]
--- OUTSIDE RECORDS SUMMARY | 2017-02-27 21:55 | XMS REPORT | Clinical Summary ---
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 Tracie Arrington [employer] Chronic airway obstruction, not elsewhere classified Family history of myocardial infarction V17.3 Active Tracie Murphy [employer] Family history of ischemic heart disease CAD 414.00 Active Tracie Murphy [employer] Coronary atherosclerosis of unspecified type of vessel, [place] or graft Peripheral edema 782.3 Active Austin Albarado MD Edema Shortness of breath 786.05 Active Simona Galloway [employer] Shortness of breath Hypotension 458.9 Active Simona [...] Generic Name NDC Status Provider Patient Instruction ACYCLOVIR 400 MG TABS 1 pill three times daily ACYCLOVIR 63406146426 Active Austin Albarado MD Active ACYCLOVIR 400 MG TABS 1 pill three times daily ACYCLOVIR 41149243333 No Longer Active Austin Albarado MD Active ALBUTEROL SULFATE 0.083 % NEBU SOLN one vial per nebulizer every 4 hours as needed Dx. J44.1 ALBUTEROL SULFATE 00954310108 Active Austin Albarado MD Active IPRATROPIUM BROMIDE 0.02 % INH SOLN 1 q 6 hr PRN Dx: J44.1 IPRATROPIUM BROMIDE 88029897833 Active Nella José LPN Active PROAIR HFA 108 (90 BASE) MCG/ACT AERS take 1-2 puffs q 4-6 hrs prn cough/ SOB ALBUTEROL SULFATE 32786793440 Active Nella José LPN Active IPRATROPIUM-ALBUTEROL 0.5-2.5 (3) MG/3ML SOLN 1 VIAL NEB Q 4-6 HRS PRN 04/18 IPRATROPIUM-ALBUTEROL 03869836118 No Longer Active Austin Albarado MD Active ATIVAN 0.5 MG TAB 1 po QD PRN Anxiety LORAZEPAM 22681012862 Active Austin Albarado MD Active PREDNISONE 20 MG ORAL TABS 3 tabs po for 3 days than,2 tabs po for 3 days,1 tab po for 3 days, 1/2 tab po for 3 days. PREDNISONE 53774452286 No Longer Active Simona Galloway APRN Active LEVAQUIN 500 MG TAB 1 tablet by mouth daily LEVOFLOXACIN 04986074035 No Longer Active Simona Galloway APRN Active PREDNISONE 20 MG TAB take 3 tabs daily for 3 days, 2 tabs daily for 3 days, 1 tab daily for 3 days, 1/2 tab daily for 3 days PREDNISONE 22046636613 No Longer Active Austin Albarado MD Active LEVAQUIN 500 MG TAB 1 tablet by mouth daily LEVOFLOXACIN 07142622026 No Longer Active Madhavi Raida Active FUROSEMIDE 20 MG TABS take 1 tab po BID for swelling FUROSEMIDE 24618000901 Active Austin Albarado MD Active AMOXICILLIN 500 MG ORAL TABS Take one by mouth 3 times daily, morning, afternoon and evening.] AMOXICILLIN 56266689294 No Longer Active Garcia Stroud MD Active PREDNISONE 20 MG ORAL TABS 3 daily for 3 days than, 2 tabs daily for 3 days than, 2 tabs daily for 3 days than, 1 tab daily for 3 days than 1/2 tab daily for 3 days. PREDNISONE 35911561595 No Longer Active Tracie Arrington APRN Active FLUTICASONE PROPIONATE 50 MCG/ACT SUSP 1 to 2 sprays each nostril daily 08/21 FLUTICASONE PROPIONATE 98065845505 Active Simona Galloway APRN Active PREDNISONE 10 MG TAB take 1 tab po qday for severe COPD PREDNISONE 44414411057 Active Austin Albarado MD Active PREDNISONE 20 MG ORAL TABS 3 TABS PO FOR 3 DAYS,THAN 2 TABS FOR 3 DAYS THAN, 1 TAB FOR 3 DAYS THAN, 1/2 TAB FOR 3 DAYS. PREDNISONE 98900467826 No Longer Active Austin Albarado MD Active LEVAQUIN 500 MG TAB 1 tablet by mouth daily for 10 days. LEVOFLOXACIN 25633318474 No Longer Active Austin Albarado MD Active PREDNISONE 20 MG TAB take 3 tabs daily for 3 days, 2 tabs daily for 3 days, 1 tab daily for 3 days, 1/2 tab daily for 3 days PREDNISONE 05247108873 No Longer Active Simona Galloway APRN Active ZITHROMAX 1 GM ORAL PACK DIRECTED AZITHROMYCIN 14585343883 No Longer Active Simona Galloway APRN Active PREDNISONE 20 MG TAB 2 tabs daily for 4 days, 1 tab daily for 4 days, 1/2 tab daily for 4 days PREDNISONE 33548142145 No Longer Active Austin Albarado MD Active LEVAQUIN 500 MG TAB 1 tablet by mouth daily LEVOFLOXACIN 52542886117 No Longer Active Austin Albarado MD Active PREDNISONE 20 MG TAB take 3 tabs daily for 3 days, 2 tabs daily for 3 days, 1 tab daily for 3 days, 1/2 tab daily for 3 days PREDNISONE 81253534662 No Longer Active Austin Albarado MD Active DOXYCYCLINE HYCLATE 100 MG CAP 1 cap by mouth twice daily DOXYCYCLINE HYCLATE 43824477145 No Longer Active Esperanza Modi [employer]UTE MAN Active ALBUTEROL SULFATE (2.5 MG/3ML) 0.083% NEBU nebulize 1 vial q 4-6 hours prn shortness of breath ALBUTEROL SULFATE 41455422413 No Longer Active Joshllaftab Mendozal [employer]UTE MAN Active TORSEMIDE 20 MG TABS 1 TAB PO BID TORSEMIDE 21469845073 No Longer Active Jillina Frashonnal [employer] MAN Active PREDNISONE 20 MG TAB 2 tabs daily for 3 days, 1 tab daily for 3 days, 1/2 tab daily for 2 days PREDNISONE 13330584730 No Longer Active Austin Albarado MD Active LEVOFLOXACIN 500 MG ORAL TABS take 1 tab po qday LEVOFLOXACIN 73298956622 No Longer Active Austin Albarado MD Active PREDNISONE 20 MG TAB 2 tablets today, then 1 tablet by mouth days 2-5 PREDNISONE 73167118587 No Longer Active Austin Albarado MD Active AZITHROMYCIN 500 MG SOLR 1 po q day AZITHROMYCIN 87198385237 No Longer Active Austin Albarado MD Active KEFLEX 500 MG CAP 1 po TID x 7 days CEPHALEXIN 04403763872 No Longer Active Tristan Vaughn MD Active EQL VISION FORMULA TABS 1 TAB PO DAILY MULTIPLE VITAMINS-MINERALS 87548614122 No Longer Active Tristan Vaughn MD Active CHANTIX STARTING MONTH ELVIS 0.5 MG X 11 & 1 MG X 42 TABS 0.5mg daily for 3 days , then 0.5mg BID for 4 days, then 1mg BID VARENICLINE TARTRATE 05533538795 No Longer Active Tristan Vaughn MD Active LEVOTHYROXINE SODIUM 200 MCG TABS 1 TAB PO DAILY LEVOTHYROXINE SODIUM 99036507974 No Longer Active Tristan Vaughn MD Active LIOTHYRONINE SODIUM 50 MCG TABS take 1 tab po qday for hypothyroidism LIOTHYRONINE SODIUM 00194951915 No Longer Active Austin Albarado MD Active SYNTHROID 0.025 MG TAB 1 tablet by mouth daily LEVOTHYROXINE SODIUM 18294180848 No Longer Active Austin Albarado MD Active ARMOUR THYROID 120 MG TABS take 1 tab po qday for hypothyroidism THYROID 80427013642 Active Austin Albarado MD Active FLONASE 50 MCG/ACT SUSP 1 spray each nostril am and hs FLUTICASONE PROPIONATE Active Simona Galloway APRN Active ZITHROMAX 1 GM PACK DIRECTED AZITHROMYCIN 87986887382 No Longer Active Austin Albarado MD Active PREDNISONE 20 MG TAB 2 tabs daily for 3 days, 1 tab daily for 3 days, 1/2 tab daily for 2 days PREDNISONE 26085084584 No Longer Active Austin Albarado MD Active ZITHROMAX 250 MG TAB 2 po today, then 1 po q days 2-5 AZITHROMYCIN 86716269739 No Longer Active Austin Alabrado MD Active NYSTATIN-TRIAMCINOLONE 022346-9.1 UNIT/GM-% OINT Apply to affected area TID NYSTATIN-TRIAMCINOLONE 55592454759 Active Austin Albarado MD Active ADVAIR DISKUS 500-50 MCG/DOSE AEPB ONE INH BID FLUTICASONE- SALMETEROL 64567091567 Active Austin Albarado MD Active ZITHROMAX 1 GM PACK DIRECTED ZITHROMAX 1 GM PACK 894923 AZITHROMYCIN Inactive SYNTHROID 0.025 MG TAB 1 tablet by mouth daily SYNTHROID 0.025 MG TAB 767693 LEVOTHYROXINE SODIUM Inactive LIOTHYRONINE SODIUM 50 MCG TABS take 1 tab po qday for hypothyroidism LIOTHYRONINE SODIUM 50 MCG TABS 795064 LIOTHYRONINE SODIUM Inactive LEVOTHYROXINE SODIUM 200 MCG TABS 1 TAB PO DAILY LEVOTHYROXINE SODIUM 200 MCG TABS 987746 LEVOTHYROXINE SODIUM Inactive CHANTIX STARTING MONTH ELVIS [...] po q day AZITHROMYCIN 500 MG SOLR 47252775978 AZITHROMYCIN Inactive PREDNISONE 20 MG TAB 2 tablets today, then 1 tablet by mouth days 2-5 PREDNISONE 20 MG TAB 840366 PREDNISONE Inactive TORSEMIDE 20 MG TABS 1 TAB PO BID TORSEMIDE 20 MG TABS 644540 TORSEMIDE Inactive ALBUTEROL SULFATE (2.5 MG/3ML) 0.083% NEBU nebulize 1 vial q 4-6 hours prn shortness of breath ALBUTEROL SULFATE (2.5 MG/3ML) 0.083% NEBU 375354 ALBUTEROL SULFATE Inactive LEVAQUIN 500 MG TAB 1 tablet by mouth daily LEVAQUIN 500 MG TAB 594264 LEVOFLOXACIN Inactive PREDNISONE 20 MG TAB 2 tabs daily for 4 days, 1 tab daily for 4 days, 1/2 tab daily for 4 days PREDNISONE 20 MG TAB 328989 PREDNISONE Inactive ZITHROMAX 1 GM ORAL PACK DIRECTED ZITHROMAX 1 GM ORAL PACK 189843 AZITHROMYCIN Inactive LEVAQUIN 500 MG TAB 1 tablet by mouth daily for 10 days. LEVAQUIN 500 MG TAB 185197 LEVOFLOXACIN Inactive PREDNISONE 20 MG ORAL TABS 3 TABS PO FOR 3 DAYS,THAN 2 TABS FOR 3 DAYS THAN, 1 TAB FOR 3 DAYS THAN, 1/2 TAB FOR 3 DAYS. PREDNISONE 20 MG ORAL TABS 500012 PREDNISONE Inactive PREDNISONE 20 MG ORAL TABS 3 daily for 3 days than, 2 tabs daily for 3 days than, 2 tabs daily for 3 days than, 1 tab daily for 3 days than 1/2 tab daily for 3 days. PREDNISONE 20 MG ORAL TABS 717359 PREDNISONE Inactive AMOXICILLIN 500 MG ORAL TABS Take one by mouth 3 times daily, morning, afternoon and evening.] AMOXICILLIN 500 MG ORAL TABS 759113 AMOXICILLIN Inactive LEVAQUIN 500 MG TAB 1 tablet by mouth daily LEVAQUIN 500 MG TAB 891745 LEVOFLOXACIN Inactive LEVAQUIN 500 MG TAB 1 tablet by mouth daily LEVAQUIN 500 MG TAB 550687 LEVOFLOXACIN Inactive PREDNISONE 20 MG ORAL TABS 3 tabs po for 3 days than,2 tabs po for 3 days,1 tab po for 3 days, 1/2 tab po for 3 days. PREDNISONE 20 MG ORAL TABS 833181 PREDNISONE Inactive ZITHROMAX 250 MG TAB 2 po today, then 1 po q days 2-5 ZITHROMAX 250 MG TAB 7704386 AZITHROMYCIN Inactive PREDNISONE 20 MG TAB 2 tabs daily for 3 days, 1 tab daily for 3 days, 1/2 tab daily for 2 days PREDNISONE 20 MG TAB 670578 PREDNISONE Inactive KEFLEX 500 MG CAP 1 po TID x 7 days KEFLEX 500 MG CAP 972988 CEPHALEXIN Inactive LEVOFLOXACIN 500 MG ORAL TABS take 1 tab po qday LEVOFLOXACIN 500 MG ORAL TABS 587471 LEVOFLOXACIN Inactive PREDNISONE 20 MG TAB 2 tabs daily for 3 days, 1 tab daily for 3 days, 1/2 tab daily for 2 days PREDNISONE 20 MG TAB 521466 PREDNISONE Inactive DOXYCYCLINE HYCLATE 100 MG CAP 1 cap by mouth twice daily DOXYCYCLINE HYCLATE 100 MG CAP 6150264 DOXYCYCLINE HYCLATE Inactive PREDNISONE 20 MG TAB take 3 tabs daily for 3 days, 2 tabs daily for 3 days, 1 tab daily for 3 days, 1/2 tab daily for 3 days PREDNISONE 20 MG TAB 626821 PREDNISONE Inactive PREDNISONE 20 MG TAB take 3 tabs daily for 3 days, 2 tabs daily for 3 days, 1 tab daily for 3 days, 1/2 tab daily for 3 days PREDNISONE 20 MG TAB 801736 PREDNISONE Inactive PREDNISONE 20 MG TAB take 3 tabs daily for 3 days, 2 tabs daily for 3 days, 1 tab daily for 3 days, 1/2 tab daily for 3 days PREDNISONE 20 MG TAB 695445 PREDNISONE Inactive ACYCLOVIR 400 MG TABS 1 pill three times daily ACYCLOVIR 400 MG TABS 936624 ACYCLOVIR Inactive Advance Directives Directive Description Start Date PERMISSION TO SHARE DISCUSSED WITH PATIENT -- NO DECISION MADE Immunizations Vaccine Administration Date Value Standard Description pneumococcal immunization administered Pneumovax 23 [CVX33] pneumococcal polysaccharide vaccine, 23 valent Vital Signs Date Name Value Unit Range Description blood pressure, diastolic - 8462-4 55 mm[Hg] [...] E&M - 8867-4 114 /min Heart rate Diagnostic Results Date Name Value Unit Range [...] Peptide - Chemistry sodium, serum 140 mmol/L 039-492 0684/02/09 carbon dioxide, venous blood 39.2 mmol/L 21.0-32.0 [...] 0.00-1.00 Encounters Code Encounter Date Provider Facility CPT-[id number] Level 4 Est. Patient 13:31:03 CDT Austin Albarado MD [facility]-33203 Level 4 Est. Patient 17:54:41 [employer] Austin Albarado MD [facility]-44499 Level 4 Est. Patient 16:11:14 [employer] INST[employer] Austin Albarado MD [facility]-47159 Level 4 Est. Patient 23:08:56 CDT Austin Albarado MD [facility]-97186 Level 4 Est. Patient 13:27:28 CDT Garcia Stroud MD [facility]-76605 Level 4 Est. Patient 10:51:20 CDT Austin Albarado MD [facility]-24669 Level 4 Est. Patient 20:09:43 [employer] Austin Albarado MD [facility]-75597 Level 4 Est. Patient 21:00:28 CDT Austin Albarado MD [facility] CPT-53455 Level 4 Est. Patient 10:03:37 CDT Austin Albarado MD [facility] CPT-44602 Level 3 Est. Patient 10:50:28 [employer] INST[employer] Austin Albarado MD [facility] CPT-65465 Level 4 Est. Patient 21:31:41 [employer] INST[employer]ER Austin Albarado MD [facility] CPT-13204 Level 3 Est. Patient 16:22:54 [employer]ER Jann Law DO [facility] CPT-39427 Level 3 Est. Patient 11:04:53 [employer] Tristan Vaughn MD [facility] CPT-72499 Level 4 Est. Patient 09:50:59 CDT Austin Albarado MD [facility] CPT-92982 Level 4 Est. Patient 09:29:00 CDT Austin Albarado MD [facility] CPT-71627 Level 4 Est. Patient 14:23:07 CDT Austin Albarado MD [facility] CPT-32622 Level 4 Est. Patient 14:27:26 CDT Austin Albarado MD [facility] CPT-10545 Level 4 Est. Patient 12:51:43 [employer] INST[employer]ER Austin Albarado MD [facility] CPT-26158 Level 3 New Patient 14:17:38 [employer] INST[employer]ER Austin Albarado MD [facility] CPT-64939 Level 3 New Patient 11:28:18 [employer] INST[employer] Austin Albarado MD [facility] Procedures Code Procedure Name Date Entry Date Standard Description CPT-TCMM Transitional Care Mgmt-Moderate 14:53:36 [employer] CPT-66035 No Charge Offi Visit 10:19:33 [employer] CPT-42826 Chest 2V Frontal and Lat - XRAY USE ONLY 15:01:41 [employer] CPT-12498 First Vx - Ix admin for Medicare patients 16:00:49 CDT CPT-93963 Fluzone High-Dose Intramuscular Suspension 16:00:49 CDT CPT-G0009 Administration of Pneumococcal Vaccine 13:25:27 CDT CPT-26955 Prevnar 13 Intramuscular Suspension 13:25:27 CDT 09/26 CPT-G0438 Initial Annual Wellness Exam 11:28:26 CDT CPT-53973 Chest 2V Frontal and Lat 15:00:00 [employer] CPT-32427 Breathing Tx 14:49:25 [employer] CPT-48228 Fluzone High Dose 15:08:41 [employer] CPT-75436 Immunization Single Admin 15:08:41 [employer] CPT-31919 Fluzone High Dose 17:31:19 CDT CPT-27055 Administration single or combination vaccine inc oral 17 :31:19 CDT CPT-98994 Venipuncture Draw Fee 11:03:05 CDT CPT-TCMM Transitional Care Mgmt-Moderate 16:32:35 CDT CPT-96947 Chest 2V Frontal and Lat 11:51:09 CDT CPT-G0008 Administration of Influenza Virus Vaccine 15:09:08 CDT CPT-29803 Fluzone High-Dose Intramuscular Suspension 15:09:08 CDT CPT-75869 Administration single or combination vaccine inc oral 17 :07:02 [employer] IN[employer] CPT-56875 Influenza High Dose age 65+ 17:07:02 [employer] SYSTEM INST[employer]ER
--- OUTSIDE RECORDS SUMMARY | 2017-02-27 21:56 | XMS REPORT | Clinical Summary ---
Author Author Admin, LEE Organization [facility] Address Unknown Phone Unavailable Allergies, Adverse Reactions, [...] not elsewhere classified Peripheral edema 782.3 Active Asutin Albarado MD Edema Tinea corporis 110.5 Active [...] Coronary atherosclerosis of unspecified type of vessel, cantwell or graft U R I ICD-465.9 Inactive Austin Albarado MD 06/13 Bronchitis-Acute ICD-466.0 Inactive Austin Albarado MD Medication List Medication Instructions Start Date Stop Date Generic Name NDC Status Provider Patient Instruction FUROSEMIDE 20 MG TABS 2 today and tomorrow and then 1 daily as needed for swelling FUROSEMIDE 37897520233 Active Garcia Stroud MD Active AMOXICILLIN 500 MG ORAL TABS Take one by mouth 3 times daily, morning, afternoon and evening.] AMOXICILLIN 22010613160 No Longer Active Garcia Stroud MD Active PREDNISONE 20 MG ORAL TABS 3 daily for 3 days than, 2 tabs daily for 3 days than, 2 tabs daily for 3 days than, 1 tab daily for 3 days than 1/2 tab daily for 3 days. PREDNISONE 07998033725 No Longer Active Tracie Arrington APRN Active FLUTICASONE PROPIONATE 50 MCG/ACT SUSP 1 to 2 sprays each nostril daily 08/21 FLUTICASONE PROPIONATE 96308374090 Active Simona Galloway APRN Active PREDNISONE 10 MG TAB take 1 tab po qday for severe COPD PREDNISONE 17184760764 Active Austin Albarado MD Active PREDNISONE 20 MG ORAL TABS 3 TABS PO FOR 3 DAYS,THAN 2 TABS FOR 3 DAYS THAN, 1 TAB FOR 3 DAYS THAN, 1/2 TAB FOR 3 DAYS. PREDNISONE 79206285456 No Longer Active Austin Albarado MD Active LEVAQUIN 500 MG TAB 1 tablet by mouth daily for 10 days. LEVOFLOXACIN 40160306373 No Longer Active Austin Albarado MD Active PREDNISONE 20 MG TAB take 3 tabs daily for 3 days, 2 tabs daily for 3 days, 1 tab daily for 3 days, 1/2 tab daily for 3 days PREDNISONE 81074459659 No Longer Active Simona Galloawy APRN Active ZITHROMAX 1 GM ORAL PACK DIRECTED AZITHROMYCIN 98297257947 No Longer Active Simona Galloway APRN Active PREDNISONE 20 MG TAB 2 tabs daily for 4 days, 1 tab daily for 4 days, 1/2 tab daily for 4 days PREDNISONE 06594643944 No Longer Active Austin Albarado MD Active LEVAQUIN 500 MG TAB 1 tablet by mouth daily LEVOFLOXACIN 78547892410 No Longer Active Austin Albarado MD Active PREDNISONE 20 MG TAB take 3 tabs daily for 3 days, 2 tabs daily for 3 days, 1 tab daily for 3 days, 1/2 tab daily for 3 days PREDNISONE 16889027238 No Longer Active Austin Albarado MD Active DOXYCYCLINE HYCLATE 100 MG CAP 1 cap by mouth twice daily DOXYCYCLINE HYCLATE 32076462890 No Longer Active Jikatyaina Ly BOWEN Active ALBUTEROL SULFATE (2.5 MG/3ML) 0.083% NEBU nebulize 1 vial q 4-6 hours prn shortness of breath ALBUTEROL SULFATE 96507168148 No Longer Active 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 STRIP MACHINE TENDER Active TORSEMIDE 20 MG TABS 1 TAB PO BID TORSEMIDE 89071160393 No Longer Active Jillina Frashonnal STRIP MACHINE TENDER Active PREDNISONE 20 MG TAB 2 tabs daily for 3 days, 1 tab daily for 3 days, 1/2 tab daily for 2 days PREDNISONE 89748094241 No Longer Active Austin Albarado MD Active LEVOFLOXACIN 500 MG ORAL TABS take 1 tab po qday LEVOFLOXACIN 58598055794 No Longer Active Austin Albarado MD Active PREDNISONE 20 MG TAB 2 tablets today, then 1 tablet by mouth days 2-5 PREDNISONE 83540657650 No Longer Active Austin Albarado MD Active AZITHROMYCIN 500 MG SOLR 1 po q day AZITHROMYCIN 84626056584 No Longer Active Austin Albarado MD Active KEFLEX 500 MG CAP 1 po TID x 7 days CEPHALEXIN 39725424873 No Longer Active Tristan Vaughn MD Active EQL VISION FORMULA TABS 1 TAB PO DAILY MULTIPLE VITAMINS-MINERALS 98547221471 No Longer Active Tristan Vaughn MD Active CHANTIX STARTING MONTH ELVIS 0.5 MG X 11 & 1 MG X 42 TABS 0.5mg daily for 3 days , then 0.5mg BID for 4 days, then 1mg BID VARENICLINE TARTRATE 49014638304 No Longer Active Tristan Vaughn MD Active LEVOTHYROXINE SODIUM 200 MCG TABS 1 TAB PO DAILY LEVOTHYROXINE SODIUM 32308587223 No Longer Active Tristan Vaughn MD Active LIOTHYRONINE SODIUM 50 MCG TABS take 1 tab po qday for hypothyroidism LIOTHYRONINE SODIUM 27649433547 No Longer Active Austin Albarado MD Active SYNTHROID 0.025 MG TAB 1 tablet by mouth daily LEVOTHYROXINE SODIUM 88669153957 No Longer Active Austin Albarado MD Active ARMOUR THYROID 120 MG TABS take 1 tab po qday for hypothyroidism THYROID 64620712554 Active Austin Albarado MD Active FLONASE 50 MCG/ACT SUSP 1 spray each nostril am and hs FLUTICASONE PROPIONATE Active Simona Nilesh STRIP MACHINE TENDER Active ZITHROMAX 1 GM PACK DIRECTED AZITHROMYCIN 24809535822 No Longer Active Austin Albarado MD Active PREDNISONE 20 MG TAB 2 tabs daily for 3 days, 1 tab daily for 3 days, 1/2 tab daily for 2 days PREDNISONE 92910538141 No Longer Active Austin Albarado MD Active ZITHROMAX 250 MG TAB 2 po today, then 1 po q days 2-5 AZITHROMYCIN 64352162342 No Longer Active Austin Albarado MD Active NYSTATIN-TRIAMCINOLONE 250066-1.1 UNIT/GM-% OINT Apply to affected area TID NYSTATIN-TRIAMCINOLONE 57763641158 Active Austin Albarado MD Active IPRATROPIUM-ALBUTEROL 0.5-2.5 (3) MG/3ML SOLN 1 VIAL NEB Q 6 HRS PRN IPRATROPIUM-ALBUTEROL 11797873628 Active Austin Albarado MD Active PROAIR HFA 108 (90 BASE) MCG/ACT AERS take 1-2 puffs q4hrs prn cough/ SOB ALBUTEROL SULFATE 72291937822 Active Austin Albarado MD Active ADVAIR DISKUS 500-50 MCG/DOSE AEPB ONE INH BID FLUTICASONE- SALMETEROL 64339908837 Active Austin Albarado MD Active ZITHROMAX 1 GM PACK DIRECTED ZITHROMAX 1 GM PACK 969265 AZITHROMYCIN Inactive SYNTHROID 0.025 MG TAB 1 tablet by mouth daily SYNTHROID 0.025 MG TAB 224202 LEVOTHYROXINE SODIUM Inactive LIOTHYRONINE SODIUM 50 MCG TABS take 1 tab po qday for hypothyroidism LIOTHYRONINE SODIUM 50 MCG TABS 623930 LIOTHYRONINE SODIUM Inactive LEVOTHYROXINE SODIUM 200 MCG TABS 1 TAB PO DAILY LEVOTHYROXINE SODIUM 200 MCG TABS 475232 LEVOTHYROXINE SODIUM Inactive CHANTIX STARTING MONTH ELVIS [...] po q day AZITHROMYCIN 500 MG SOLR 25700449201 AZITHROMYCIN Inactive PREDNISONE 20 MG TAB 2 tablets today, then 1 tablet by mouth days 2-5 PREDNISONE 20 MG TAB 838518 PREDNISONE Inactive TORSEMIDE 20 MG TABS 1 TAB PO BID TORSEMIDE 20 MG TABS 390597 TORSEMIDE Inactive ALBUTEROL SULFATE (2.5 MG/3ML) 0.083% NEBU nebulize 1 vial q 4-6 hours prn shortness of breath ALBUTEROL SULFATE (2.5 MG/3ML) 0.083% NEBU 825054 ALBUTEROL SULFATE Inactive LEVAQUIN 500 MG TAB 1 tablet by mouth daily LEVAQUIN 500 MG TAB 799547 LEVOFLOXACIN Inactive PREDNISONE 20 MG TAB 2 tabs daily for 4 days, 1 tab daily for 4 days, 1/2 tab daily for 4 days PREDNISONE 20 MG TAB 036710 PREDNISONE Inactive ZITHROMAX 1 GM ORAL PACK DIRECTED ZITHROMAX 1 GM ORAL PACK 405567 AZITHROMYCIN Inactive LEVAQUIN 500 MG TAB 1 tablet by mouth daily for 10 days. LEVAQUIN 500 MG TAB 621952 LEVOFLOXACIN Inactive PREDNISONE 20 MG ORAL TABS 3 TABS PO FOR 3 DAYS,THAN 2 TABS FOR 3 DAYS THAN, 1 TAB FOR 3 DAYS THAN, 1/2 TAB FOR 3 DAYS. PREDNISONE 20 MG ORAL TABS 557402 PREDNISONE Inactive PREDNISONE 20 MG ORAL TABS 3 daily for 3 days than, 2 tabs daily for 3 days than, 2 tabs daily for 3 days than, 1 tab daily for 3 days than 1/2 tab daily for 3 days. PREDNISONE 20 MG ORAL TABS 241001 PREDNISONE Inactive AMOXICILLIN 500 MG ORAL TABS Take one by mouth 3 times daily, morning, afternoon and evening.] AMOXICILLIN 500 MG ORAL TABS 874495 AMOXICILLIN Inactive ZITHROMAX 250 MG TAB 2 po today, then 1 po q days 2-5 ZITHROMAX 250 MG TAB 8564063 AZITHROMYCIN Inactive PREDNISONE 20 MG TAB 2 tabs daily for 3 days, 1 tab daily for 3 days, 1/2 tab daily for 2 days PREDNISONE 20 MG TAB 728648 PREDNISONE Inactive KEFLEX 500 MG CAP 1 po TID x 7 days KEFLEX 500 MG CAP 882007 CEPHALEXIN Inactive LEVOFLOXACIN 500 MG ORAL TABS take 1 tab po qday LEVOFLOXACIN 500 MG ORAL TABS 759208 LEVOFLOXACIN Inactive PREDNISONE 20 MG TAB 2 tabs daily for 3 days, 1 tab daily for 3 days, 1/2 tab daily for 2 days PREDNISONE 20 MG TAB 716297 PREDNISONE Inactive DOXYCYCLINE HYCLATE 100 MG CAP 1 cap by mouth twice daily DOXYCYCLINE HYCLATE 100 MG CAP 2647690 DOXYCYCLINE HYCLATE Inactive PREDNISONE 20 MG TAB take 3 tabs daily for 3 days, 2 tabs daily for 3 days, 1 tab daily for 3 days, 1/2 tab daily for 3 days PREDNISONE 20 MG TAB 738481 PREDNISONE Inactive PREDNISONE 20 MG TAB take 3 tabs daily for 3 days, 2 tabs daily for 3 days, 1 tab daily for 3 days, 1/2 tab daily for 3 days PREDNISONE 20 MG TAB 383246 PREDNISONE Inactive Advance Directives Directive Description Start [...] ... - Chemistry cholesterol, serum 136 mg/dL 420-875 6036/10/06 triglyceride, serum, fasting 30 mg/dL 30-200 HDL cholesterol, serum 57 mg/dL 32-96 LDL cholesterol, serum 73 mg/dL 0-130 prostate specific antigen 1.45 ng/mL 0.00-4.00 thyroxine, serum, free 0.80 ng/dL 0.76-1.46 TSH 14.03 m[iU]/mL 0.36-3.74 Lab Report: Thyroid Stimulating Hormone (L), Comp. Metabolic Panel, CBC, ... - Chemistry TSH 43.52 m[iU]/mL 0.36-3.74 sodium, serum 140 mmol/L 446-252 2893/04/06 carbon dioxide, venous blood 36.3 mmol/L 21.0-32.0 potassium, serum 4.9 mmol/L 3.5-5.2 chloride, serum 100 mmol/L 98-107 blood glucose 62 mg/dL 65-110 urea nitrogen, blood 24 mg/dL 7-18 creatinine, serum 1.09 mg/dL 0.55-1.30 alanine aminotransferase (SGPT), serum 44 U/L 12-78 aspartate aminotransferase (SGOT), serum 25 U/L 15-37 calcium, serum 8.7 mg/dL 8.5-10.1 bilirubin, serum, total 0.50 mg/dL 0.00-1.00 cholesterol, serum 189 mg/dL 635-233 6621/04/06 triglyceride, serum, fasting 117 mg/dL 30-200 HDL [...] 142-424 Encounters Code Encounter Date Provider Facility CPT-47361 Level 4 Est. Patient 13:27:28 CDT Garcia Stroud MD [facility] CPT-10078 Level 4 Est. Patient 10:51:20 CDT Austin Albarado MD [facility] CPT-01180 Level 4 Est. Patient 20:09:43 EXECUTIVE PILOT Austin Albarado MD [facility] CPT-96808 Level 4 Est. Patient 21:00:28 CDT Austin Albarado MD [facility] CPT-54307 Level 4 Est. Patient 10:03:37 CDT Austin Albarado MD [facility] CPT-44728 Level 3 Est. Patient 10:50:28 EXECUTIVE PILOT Austin Albarado MD [facility] CPT-71397 Level 4 Est. Patient 21:31:41 EXECUTIVE PILOT Austin Albarado MD [facility] CPT-91134 Level 3 Est. Patient 16:22:54 EXECUTIVE PILOT Jann Law DO [facility] CPT-80906 Level 3 Est. Patient 11:04:53 EXECUTIVE PILOT Tristan Vaughn MD [facility] CPT-46949 Level 4 Est. Patient 09:50:59 CDT Austin Albarado MD [facility] CPT-55842 Level 4 Est. Patient 09:29:00 CDT Austin Albarado MD [facility] CPT-29095 Level 4 Est. Patient 14:23:07 CDT Austin Albarado MD [facility] CPT-34831 Level 4 Est. Patient 14:27:26 CDT Austin Albarado MD [facility] CPT-13744 Level 4 Est. Patient 12:51:43 EXECUTIVE PILOT Austin Albarado MD [facility] CPT-67118 Level 3 New Patient 14:17:38 EXECUTIVE PILOT Austin Albarado MD [facility] CPT-62702 Level 3 New Patient 11:28:18 EXECUTIVE PILOT Austin Albarado MD [facility] Procedures Code Procedure Name Date Entry Date Standard Description CPT-G0009 Administration of Pneumococcal Vaccine 13:25:27 CDT CPT-72276 Prevnar 13 Intramuscular Suspension 13:25:27 CDT 09/26 CPT-G0438 Initial Annual Wellness Exam 11:28:26 CDT CPT-94964 Chest 2V Frontal and Lat 15:00:00 EXECUTIVE PILOT CPT-35918 Breathing Tx 14:49:25 EXECUTIVE PILOT CPT-41185 Fluzone High Dose 15:08:41 EXECUTIVE PILOT CPT-29787 Immunization Single Admin 15:08:41 EXECUTIVE PILOT CPT-61959 Fluzone High Dose 17:31:19 CDT CPT-93743 Administration single or combination vaccine inc oral 17 :31:19 CDT CPT-25678 Venipuncture Draw Fee 11:03:05 CDT CPT-TCMM Transitional Care Mgmt-Moderate 16:32:35 CDT CPT-25543 Chest 2V Frontal and Lat 11:51:09 CDT CPT-G0008 Administration of Influenza Virus Vaccine 15:09:08 CDT CPT-89063 Fluzone High-Dose Intramuscular Suspension 15:09:08 CDT CPT-68034 Administration single or combination vaccine inc oral 17 :07:02 EXECUTIVE PILOT CPT-09888 Influenza High Dose age 65+ 17:07:02 EXECUTIVE PILOT
--- OUTSIDE RECORDS SUMMARY | 2017-02-27 21:57 | XMS REPORT ---
Author [facility] Organization [facility] Address [address] [place] [address] Phone [phone] Care Team Providers Care Curriculum Designer Name Role Phone YANDY ALBARADO MD PP [phone] YANDY ALBARADO MD PP [phone] Summary purpose TRANSITION OF CARE AUTO GENERATION Chief Complaint and Reason for Visit Admit Diagnosis 1 EXACERBATION OF COPD Problem list No authorized problems tracked for [...] Relevant diagnostic tests and/or laboratory data RESULTS 68-83-264603:25:00 Discharge Summary DISCHARGE SUMMARY ADMISSION DIAGNOSIS: 1. [...] 3 days, 1/2 tablet for 3 days. Jber Thyroid 120 mg daily. Advair 500/50 1 [...] MD KRISTEN Franco/annia 08/18/2014 08:25:45/08/18/2014 10:12:05 [facility] [address] [place] [address] <END HEADER> Routine Urinalysis 25-39-818532:45:00 Result Normal Range Units Color YELLOW Clarity Clear Specific [place] 1.025 1.003-1.035 pH 5.5 4.5-8.0 Glucose Negative Bilirubin Negative Ketones Negative Protein Negative Urobilinogen 0.2 0-0.2 Nitrites Negative Blood Negative Leukocytes Negative WBCs 0-5 RBCs 0-5 Blood Cultures [id number]:00:00 Blood Culture Plate Date and Time 08/17/2014 02:03 SourceBLOOD CULTURE REPORT NoGrowth at 1 day. Unless otherwise notified. Final report in 5 Days. Release Date/Time: 08/18/2014 07:36 right ac 70-32-120997:55:00 Blood Culture Plate Date and Time 08/17/2014 02:03 SourceBLOOD CULTURE REPORT NoGrowth at 1 day. Unless otherwise notified. Final report in 5 Days. Release Date/Time: 08/18/2014 07:36 left ac Chemistry [id number]:25:00 Result Normal Range Units Sodium 137 134-145 [...] 19.5 10-20 Estimated GFR 63 >=60 mL/min/1.7 14-34-598649:45:00 Result Normal Range Units Sodium 139 134-145 [...] 16.8 10-20 Estimated GFR 68 >=60 mL/min/1.7 :55:00 Result Normal Range Units Sodium 143 134-145 [...] 40-70 % Lymphs L 7.0 20-40 % [place] 1.0 0-10 % Eos 1.0 0-7 % Baso 1.0 0-2 % 67-70-520925:55:00 Result Normal Range Units WBC H 11.3 4.8-10.8 103/uL RBC 5.1 4.7-6.1 106/uL HGB 16.1 13.0-18.0 g/dl HCT 51.0 41.9-52.0 % MCV H 100.8 80-94 FL MCH H 31.8 27-31 pg MCHC L 31.6 33-37 g/dl RDW 15.2 11.5-15.5 % PLT 359 130-400 103/uL MPV H 10.8 7.3-10.4 FL Segs 40.0 40-70 % Lymphs 35.0 20-40 % [place] 1.0 0-10 % Eos H 23.0 0-7 % Baso 1.0 0-2 % Body Fluid 74-01-769154:45:00 Result Normal Range Units pH 5.5 4.5-8.0 Radiology Results 49-15-242450:25:00 Result Normal Range Units MPV H 11.2 7.3-10.4 FL 97-12-472015:41:00 Chest XRay - Port - 1 View [...] available for comparative purposes. Raj Moss DO /vt 08/17/2014 07:59:00 / 08/17/2014 08:24:58 cc:Dr. Yandy [...] available for comparative purposes. Raj Moss DO [facility] 08/17/2014 07:59:00 / 08/17/2014 08:24:58 cc:Dr. Yandy Albarado This document has been electronically Signed by: RAJ MOSS DO On: 20141:41P EXACERBATION OF COPD Result Amended on 2014-08-17 at 13:41:17. Previous status was OR. EXACERBATION OF COPD [id number]:45:00 Result Normal Range Units MPV H 10.9 7.3-10.4 FL 80-11-297166:55:00 Result Normal Range Units MPV H 10.8 7.3-10.4 FL History of procedures No procedures recorded for this patient visit. Functional status Functional Status Finding Observation Time Hearing Prob Loc none 70-83-871213:16 Vision Problems yes :16 Vision Correct Dev glasses 63-58-561055:16 Ambulation Asst Dev walker Comment: did not bring :16 Range of Motion full 27-62-138911:46 Muscle Strength RUE 5 ROM full resist [...] headache stiff neck no :46 WBC > 10638 no :46 WBC < 4000 no :46 Rapid Resp no :46 IV Site Location Lt forearm 70-59-944104:31 IV Type peripheral 45-95-549600:31 IV Site Information discontinued :31 IV Site Start Attmpt 1 times Comment: per ems :37 IV Site Akira 20 03-35-736761:31 IV Site Appearance WNL 43-43-326969:31 IV Site Color clear 82-36-046351:31 IV Site Patent yes 93-79-044778:31 Dressing Changed yes :31 Dressing Type gauze 34-47-533206:31 Nursing Note belongings reviewed et packed. pt off floor in good condition accompanied by pt spouse et pt daughter 32-82-051642:20 Cognitive Status Finding Observation Time Oriented To Date 5 Yes :[address] 5 Yes :16 Name 3 Objects 3 Yes :16 Name Object in Rm 2 Yes :16 Recall 3 Objects 3 Yes :16 Repeats a Phrase 1 Yes :16 Follows Verbal Direc 3 Yes 41-82-143968:16 Follows Written Dire 1 Yes 03-67-552206:16 Write a Sentance 1 Yes :16 Draw an Object 1 Yes :16 Mini Mental Total 25 points 95-20-982099:16 Learning Ability comprehends well :44 Neurological no :44 Psychological no :44 Physical no :44 Hearing no :[address] Needed no :44 Sign Language no :44 Emotional no :44 Vision yes :44 [place] no :44 Financial no :44 Vital signs Type Value Date Respiration Rate 18breaths per minute :06 Pulse 100beats per minute :06 Oxygen Saturation 95% 55-94-669634:06 BP Systolic 111mmHg 54-88-548008:06 BP Diastolic 58mmHg 39-99-353706:06 Temperature 97.1F 74-24-334761:06 Height 69inches 49-88-599214:29 Weight 231.6LB 32-45-436118:29 Social history Type Value Smoking Status CURRENT [...] 02 Diet Explained yes Follow up appt appt made (specify)
--- OUTSIDE RECORDS SUMMARY | 2017-02-27 21:57 | XMS REPORT | Clinical Summary ---
Author Author Admin, LEE Organization [facility] Address Unknown Phone Unavailable Allergies, Adverse [...] 1/2 tab daily for 3 days. PREDNISONE 75983064837 Active Madhavi Fiore Active PREDNISONE 20 MG ORAL TABS 3 TABS PO FOR 3 DAYS,THAN 2 TABS FOR 3 DAYS THAN, 1 TAB FOR 3 DAYS THAN, 1/2 TAB FOR 3 DAYS. PREDNISONE 00992478757 No Longer Active Austin Albarado MD Active LEVAQUIN 500 MG TAB 1 tablet by mouth daily for 10 days. LEVOFLOXACIN 98014426956 No Longer Active Austin Albarado MD Active PREDNISONE 20 MG TAB take 3 tabs daily for 3 days, 2 tabs daily for 3 days, 1 tab daily for 3 days, 1/2 tab daily for 3 days PREDNISONE 70287313442 No Longer Active Simona Galloway APRN Active ZITHROMAX 1 GM ORAL PACK DIRECTED AZITHROMYCIN 17386886781 No Longer Active Simona Galloway APRN Active PREDNISONE 20 MG TAB 2 tabs daily for 4 days, 1 tab daily for 4 days, 1/2 tab daily for 4 days PREDNISONE 51241746854 No Longer Active Austin Albarado MD Active LEVAQUIN 500 MG TAB 1 tablet by mouth daily LEVOFLOXACIN 74358231354 No Longer Active Austin Albarado MD Active PREDNISONE 20 MG TAB take 3 tabs daily for 3 days, 2 tabs daily for 3 days, 1 tab daily for 3 days, 1/2 tab daily for 3 days PREDNISONE 42893513768 No Longer Active Austin Albarado MD Active DOXYCYCLINE HYCLATE 100 MG CAP 1 cap by mouth twice daily DOXYCYCLINE HYCLATE 24400562775 No Longer Active 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 POSTAL TRANSPORTATION CLERK Active ALBUTEROL SULFATE (2.5 MG/3ML) 0.083% NEBU nebulize 1 vial q 4-6 hours prn shortness of breath ALBUTEROL SULFATE 96272873618 No Longer Active 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 POSTAL TRANSPORTATION CLERK Active TORSEMIDE 20 MG TABS 1 TAB PO BID TORSEMIDE 19612096692 No Longer Active 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 POSTAL TRANSPORTATION CLERK Active PREDNISONE 20 MG TAB 2 tabs daily for 3 days, 1 tab daily for 3 days, 1/2 tab daily for 2 days PREDNISONE 17391464983 No Longer Active Austin Albarado MD Active LEVOFLOXACIN 500 MG ORAL TABS take 1 tab po qday LEVOFLOXACIN 94994907760 No Longer Active Austin Albarado MD Active PREDNISONE 20 MG TAB 2 tablets today, then 1 tablet by mouth days 2-5 PREDNISONE 56803408821 No Longer Active Austin Albarado MD Active AZITHROMYCIN 500 MG SOLR 1 po q day AZITHROMYCIN 76993515930 No Longer Active Austin Albarado MD Active KEFLEX 500 MG CAP 1 po TID x 7 days CEPHALEXIN 47470296541 No Longer Active Tristan Vaughn MD Active EQL VISION FORMULA TABS 1 TAB PO DAILY MULTIPLE VITAMINS-MINERALS 31632950188 No Longer Active Tristan Vaughn MD Active CHANTIX STARTING MONTH ELVIS 0.5 MG X 11 & 1 MG X 42 TABS 0.5mg daily for 3 days , then 0.5mg BID for 4 days, then 1mg BID VARENICLINE TARTRATE 65750963990 No Longer Active Tristan Vaughn MD Active LEVOTHYROXINE SODIUM 200 MCG TABS 1 TAB PO DAILY LEVOTHYROXINE SODIUM 51796387469 No Longer Active Tristan Vaughn MD Active LIOTHYRONINE SODIUM 50 MCG TABS take 1 tab po qday for hypothyroidism LIOTHYRONINE SODIUM 36453820969 No Longer Active Austin Albarado MD Active SYNTHROID 0.025 MG TAB 1 tablet by mouth daily LEVOTHYROXINE SODIUM 14961585672 No Longer Active Austin Albarado MD Active ARMOUR THYROID 120 MG TABS take 1 tab po qday for hypothyroidism THYROID 94072060517 Active Austin Albarado MD Active FLONASE 50 MCG/ACT SUSP 1 spray each nostril am and hs FLUTICASONE PROPIONATE Active Simona Galloway POSTAL TRANSPORTATION CLERK Active ZITHROMAX 1 GM PACK DIRECTED AZITHROMYCIN 83542703731 No Longer Active Austin Albarado MD Active PREDNISONE 20 MG TAB 2 tabs daily for 3 days, 1 tab daily for 3 days, 1/2 tab daily for 2 days PREDNISONE 72646968847 No Longer Active Austin Albarado MD Active ZITHROMAX 250 MG TAB 2 po today, then 1 po q days 2-5 AZITHROMYCIN 26316300715 No Longer Active Austin Albarado MD Active NYSTATIN-TRIAMCINOLONE 992440-4.1 UNIT/GM-% OINT Apply to affected area TID NYSTATIN-TRIAMCINOLONE 28334295924 Active Austin Albarado MD Active IPRATROPIUM-ALBUTEROL 0.5-2.5 (3) MG/3ML SOLN 1 VIAL NEB Q 6 HRS PRN IPRATROPIUM-ALBUTEROL 82712275868 Active Austin Albarado MD Active PROAIR HFA 108 (90 BASE) MCG/ACT AERS take 1-2 puffs q4hrs prn cough/ SOB ALBUTEROL SULFATE 59691901163 Active Asutin Albarado MD Active ADVAIR DISKUS 500-50 MCG/DOSE AEPB ONE INH BID FLUTICASONE- SALMETEROL 12989995975 Active Austin Albarado MD Active ZITHROMAX 1 GM PACK DIRECTED ZITHROMAX 1 GM PACK 788920 AZITHROMYCIN Inactive SYNTHROID 0.025 MG TAB 1 tablet by mouth daily SYNTHROID 0.025 MG TAB 240191 LEVOTHYROXINE SODIUM Inactive LIOTHYRONINE SODIUM 50 MCG TABS take 1 tab po qday for hypothyroidism LIOTHYRONINE SODIUM 50 MCG TABS 702111 LIOTHYRONINE SODIUM Inactive LEVOTHYROXINE SODIUM 200 MCG TABS 1 TAB PO DAILY LEVOTHYROXINE SODIUM 200 MCG TABS 545016 LEVOTHYROXINE SODIUM Inactive CHANTIX STARTING MONTH ELVIS [...] po q day AZITHROMYCIN 500 MG SOLR 95734425887 AZITHROMYCIN Inactive PREDNISONE 20 MG TAB 2 tablets today, then 1 tablet by mouth days 2-5 PREDNISONE 20 MG TAB 107896 PREDNISONE Inactive TORSEMIDE 20 MG TABS 1 TAB PO BID TORSEMIDE 20 MG TABS 968438 TORSEMIDE Inactive ALBUTEROL SULFATE (2.5 MG/3ML) 0.083% NEBU nebulize 1 vial q 4-6 hours prn shortness of breath ALBUTEROL SULFATE (2.5 MG/3ML) 0.083% [facility] 207429 ALBUTEROL SULFATE Inactive LEVAQUIN 500 MG TAB 1 tablet by mouth daily LEVAQUIN 500 MG TAB 841828 LEVOFLOXACIN Inactive PREDNISONE 20 MG TAB 2 tabs daily for 4 days, 1 tab daily for 4 days, 1/2 tab daily for 4 days PREDNISONE 20 MG TAB 569206 PREDNISONE Inactive ZITHROMAX 1 GM ORAL PACK DIRECTED ZITHROMAX 1 GM ORAL PACK 950295 AZITHROMYCIN Inactive LEVAQUIN 500 MG TAB 1 tablet by mouth daily for 10 days. LEVAQUIN 500 MG TAB 429012 LEVOFLOXACIN Inactive PREDNISONE 20 MG ORAL TABS 3 TABS PO FOR 3 DAYS,THAN 2 TABS FOR 3 DAYS THAN, 1 TAB FOR 3 DAYS THAN, 1/2 TAB FOR 3 DAYS. PREDNISONE 20 MG ORAL TABS 701171 PREDNISONE Inactive ZITHROMAX 250 MG TAB 2 po today, then 1 po q days 2-5 ZITHROMAX 250 MG TAB 7306826 AZITHROMYCIN Inactive PREDNISONE 20 MG TAB 2 tabs daily for 3 days, 1 tab daily for 3 days, 1/2 tab daily for 2 days PREDNISONE 20 MG TAB 322500 PREDNISONE Inactive KEFLEX 500 MG CAP 1 po TID x 7 days KEFLEX 500 MG CAP 205244 CEPHALEXIN Inactive LEVOFLOXACIN 500 MG ORAL TABS take 1 tab po qday LEVOFLOXACIN 500 MG ORAL TABS 913814 LEVOFLOXACIN Inactive PREDNISONE 20 MG TAB 2 tabs daily for 3 days, 1 tab daily for 3 days, 1/2 tab daily for 2 days PREDNISONE 20 MG TAB 716536 PREDNISONE Inactive DOXYCYCLINE HYCLATE 100 MG CAP 1 cap by mouth twice daily DOXYCYCLINE HYCLATE 100 MG CAP 5867731 DOXYCYCLINE HYCLATE Inactive PREDNISONE 20 MG TAB take 3 tabs daily for 3 days, 2 tabs daily for 3 days, 1 tab daily for 3 days, 1/2 tab daily for 3 days PREDNISONE 20 MG TAB 869828 PREDNISONE Inactive PREDNISONE 20 MG TAB take 3 tabs daily for 3 days, 2 tabs daily for 3 days, 1 tab daily for 3 days, 1/2 tab daily for 3 days PREDNISONE 20 MG TAB 146784 PREDNISONE Inactive Advance Directives Directive Description Start [...] Free Thyroxine (L), Thyr ... - Chemistry triglyceride, serum, fasting 30 mg/dL 30-200 HDL cholesterol, serum 57 mg/dL 32-96 LDL cholesterol, serum 73 mg/dL 0-130 prostate specific antigen 1.45 ng/mL 0.00-4.00 thyroxine, serum, free 0.80 ng/dL 0.76-1.46 TSH 14.03 m[iU]/mL 0.36-3.74 cholesterol, serum 136 mg/dL 130-200 Encounters Code Encounter Date Provider Facility CPT-23537 Level 4 Est. 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 Patient 21:00:28 CDT Austin Albarado MD [facility] CPT-16960 Level 4 Est. Patient 10:03:37 CDT Austin Albarado MD [facility] CPT-70448 Level 3 Est. Patient 10:50:28 RETAIL COS[employer] SALES COUNTER MANAGER Austin Albarado MD [facility] CPT-98541 Level 4 Est. Patient 21:31:41 RETAIL COS[employer] SALES COUNTER MANAGER Austin Albarado MD [facility] CPT-61708 Level 3 Est. Patient 16:22:54 RETAIL COS[employer] SALES COUNTER MANAGER Jann Law DO [facility] CPT-94680 Level 3 Est. Patient 11:04:53 RETAIL COS[employer] SALES COUNTER MANAGER Tristan Vaughn MD [facility] CPT-48675 Level 4 Est. Patient 09:50:59 CDT Austin Albarado MD [facility] CPT-37047 Level 4 Est. Patient 09:29:00 CDT Austin Albarado MD [facility] CPT-12128 Level 4 Est. Patient 14:23:07 CDT Austin Albarado MD [facility] CPT-48339 Level 4 Est. Patient 14:27:26 CDT Austin Albarado MD [facility] CPT-58830 Level 4 Est. Patient 12:51:43 RETAIL COSMET[employer] SALES COUNTER MANAGER Austin Albarado MD [facility] CPT-13514 Level 3 New Patient 14:17:38 RETAIL COS[employer] SALES COUNTER MANAGER Austin Albarado MD [facility] CPT-08555 Level 3 New Patient 11:28:18 RETAIL COS[employer] SALES COUNTER MANAGER Austin Albarado MD [facility] Procedures Code Procedure Name Date Entry Date Standard Description CPT-15075 Chest 2V Frontal and Lat 15:00:00 RETAIL [employer] SALES COUNTER MANAGER CPT-86986 Breathing Tx 14:49:25 RETAIL COS[employer] SALES COUNTER MANAGER CPT-32123 Fluzone High Dose 15:08:41 RETAIL COS[employer] SALES COUNTER MANAGER CPT-52170 Immunization Single Admin 15:08:41 [employer]AIL COS[employer] SALES COUNTER MANAGER CPT-57537 Fluzone High Dose 17:31:19 CDT CPT-62721 Administration single or combination vaccine inc oral 17 :31:19 CDT CPT-80818 Venipuncture Draw Fee 11:03:05 CDT CPT-TCMM Transitional Care Mgmt-Moderate 16:32:35 CDT CPT-85613 Chest 2V Frontal and Lat 11:51:09 CDT CPT-G0008 Administration of Influenza Virus Vaccine 15:09:08 CDT CPT-77465 Fluzone High-Dose Intramuscular Suspension 15:09:08 CDT CPT-30108 Administration single or combination vaccine inc oral 17 :07:02 RETAIL [employer] SALES COUNTER MANAGER CPT-92608 Influenza High Dose age 65+ 17:07:02 RETAIL COSMET[employer] SALES COUNTER MANAGER
--- OUTSIDE RECORDS SUMMARY | 2017-02-27 21:57 | XMS REPORT | Clinical Summary ---
Author Author Admin, DILLONE Organization [employer] Address Unknown Phone Unavailable Allergies, Adverse Reactions, [...] 1/2 tab po for 3 days. PREDNISONE 41680366357 No Longer Active Simona Galloway APRN Active LEVAQUIN 500 MG TAB 1 tablet by mouth daily LEVOFLOXACIN 09139694944 No Longer Active Simona Galloway APRN Active PREDNISONE 20 MG TAB take 3 tabs daily for 3 days, 2 tabs daily for 3 days, 1 tab daily for 3 days, 1/2 tab daily for 3 days PREDNISONE 21584625603 No Longer Active Austin Albarado MD Active LEVAQUIN 500 MG TAB 1 tablet by mouth daily LEVOFLOXACIN 27607301182 No Longer Active Madhavi Fiore Active FUROSEMIDE 20 MG TABS take 1 tab po BID for swelling FUROSEMIDE 62621608206 Active Austin Albarado MD Active AMOXICILLIN 500 MG ORAL TABS Take one by mouth 3 times daily, morning, afternoon and evening.] AMOXICILLIN 99716549556 No Longer Active Garcia Stroud MD Active PREDNISONE 20 MG ORAL TABS 3 daily for 3 days than, 2 tabs daily for 3 days than, 2 tabs daily for 3 days than, 1 tab daily for 3 days than 1/2 tab daily for 3 days. PREDNISONE 23697640104 No Longer Active Tracie Arrington APRN Active FLUTICASONE PROPIONATE 50 MCG/ACT SUSP 1 to 2 sprays each nostril daily 08/21 FLUTICASONE PROPIONATE 21629034180 Active Simona Galloway APRN Active PREDNISONE 10 MG TAB take 1 tab po qday for severe COPD PREDNISONE 84727883248 Active Austin Albarado MD Active PREDNISONE 20 MG ORAL TABS 3 TABS PO FOR 3 DAYS,THAN 2 TABS FOR 3 DAYS THAN, 1 TAB FOR 3 DAYS THAN, 1/2 TAB FOR 3 DAYS. PREDNISONE 12967669395 No Longer Active Austin Albarado MD Active LEVAQUIN 500 MG TAB 1 tablet by mouth daily for 10 days. LEVOFLOXACIN 00749124286 No Longer Active Austin Albarado MD Active PREDNISONE 20 MG TAB take 3 tabs daily for 3 days, 2 tabs daily for 3 days, 1 tab daily for 3 days, 1/2 tab daily for 3 days PREDNISONE 72929632069 No Longer Active Simona Galloway APRN Active ZITHROMAX 1 GM ORAL PACK DIRECTED AZITHROMYCIN 57048209666 No Longer Active Simona Galloway APRN Active PREDNISONE 20 MG TAB 2 tabs daily for 4 days, 1 tab daily for 4 days, 1/2 tab daily for 4 days PREDNISONE 42207359239 No Longer Active Austin Albarado MD Active LEVAQUIN 500 MG TAB 1 tablet by mouth daily LEVOFLOXACIN 02444429398 No Longer Active Austin Albarado MD Active PREDNISONE 20 MG TAB take 3 tabs daily for 3 days, 2 tabs daily for 3 days, 1 tab daily for 3 days, 1/2 tab daily for 3 days PREDNISONE 97219619111 No Longer Active Autsin Albarado MD Active DOXYCYCLINE HYCLATE 100 MG CAP 1 cap by mouth twice daily DOXYCYCLINE HYCLATE 59422970348 No Longer Active 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 INTERVENTIONAL PHYSIATRIST Active ALBUTEROL SULFATE (2.5 MG/3ML) 0.083% NEBU nebulize 1 vial q 4-6 hours prn shortness of breath ALBUTEROL SULFATE 87339192350 No Longer Active 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 INTERVENTIONAL PHYSIATRIST Active TORSEMIDE 20 MG TABS 1 TAB PO BID TORSEMIDE 90422111593 No Longer Active 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 INTERVENTIONAL PHYSIATRIST Active PREDNISONE 20 MG TAB 2 tabs daily for 3 days, 1 tab daily for 3 days, 1/2 tab daily for 2 days PREDNISONE 56034763515 No Longer Active Austin Albarado MD Active LEVOFLOXACIN 500 MG ORAL TABS take 1 tab po qday LEVOFLOXACIN 61630900061 No Longer Active Austin Albarado MD Active PREDNISONE 20 MG TAB 2 tablets today, then 1 tablet by mouth days 2-5 PREDNISONE 51268597031 No Longer Active Austin Albarado MD Active AZITHROMYCIN 500 MG SOLR 1 po q day AZITHROMYCIN 29394100375 No Longer Active Austin Albarado MD Active KEFLEX 500 MG CAP 1 po TID x 7 days CEPHALEXIN 54325977546 No Longer Active Tristan Vaughn MD Active EQL VISION FORMULA TABS 1 TAB PO DAILY MULTIPLE VITAMINS-MINERALS 89038938227 No Longer Active Tristan Vaughn MD Active CHANTIX STARTING MONTH ELVIS 0.5 MG X 11 & 1 MG X 42 TABS 0.5mg daily for 3 days , then 0.5mg BID for 4 days, then 1mg BID VARENICLINE TARTRATE 24041449190 No Longer Active Tristan Vaughn MD Active LEVOTHYROXINE SODIUM 200 MCG TABS 1 TAB PO DAILY LEVOTHYROXINE SODIUM 33243672541 No Longer Active Tristan Vaughn MD Active LIOTHYRONINE SODIUM 50 MCG TABS take 1 tab po qday for hypothyroidism LIOTHYRONINE SODIUM 50344786266 No Longer Active Austin Albarado MD Active SYNTHROID 0.025 MG TAB 1 tablet by mouth daily LEVOTHYROXINE SODIUM 81336653777 No Longer Active Austin Albarado MD Active ARMOUR THYROID 120 MG TABS take 1 tab po qday for hypothyroidism THYROID 84570892736 Active Austin Albarado MD Active FLONASE 50 MCG/ACT SUSP 1 spray each nostril am and hs FLUTICASONE PROPIONATE Active Simona Galloway APRN Active ZITHROMAX 1 GM PACK DIRECTED AZITHROMYCIN 78538094818 No Longer Active Austin Albarado MD Active PREDNISONE 20 MG TAB 2 tabs daily for 3 days, 1 tab daily for 3 days, 1/2 tab daily for 2 days PREDNISONE 80990774164 No Longer Active Austin Albarado MD Active ZITHROMAX 250 MG TAB 2 po today, then 1 po q days 2-5 AZITHROMYCIN 31326946234 No Longer Active Austin Albarado MD Active NYSTATIN-TRIAMCINOLONE 133209-1.1 UNIT/GM-% OINT Apply to affected area TID NYSTATIN-TRIAMCINOLONE 44292549249 Active Austin Albarado MD Active IPRATROPIUM-ALBUTEROL 0.5-2.5 (3) MG/3ML SOLN 1 VIAL NEB Q 6 HRS PRN IPRATROPIUM-ALBUTEROL 99025540743 Active Simona Nilesh INTERVENTIONAL PHYSIATRIST Active PROAIR HFA 108 (90 BASE) MCG/ACT AERS take 1-2 puffs q4hrs prn cough/ SOB ALBUTEROL SULFATE 82550764104 Active Austin Albarado MD Active ADVAIR DISKUS 500-50 MCG/DOSE AEPB ONE INH BID FLUTICASONE- SALMETEROL 15114526373 Active Austin Albarado MD Active ZITHROMAX 1 GM PACK DIRECTED ZITHROMAX 1 GM PACK 399810 AZITHROMYCIN Inactive SYNTHROID 0.025 MG TAB 1 tablet by mouth daily SYNTHROID 0.025 MG TAB 589083 LEVOTHYROXINE SODIUM Inactive LIOTHYRONINE SODIUM 50 MCG TABS take 1 tab po qday for hypothyroidism LIOTHYRONINE SODIUM 50 MCG TABS 322129 LIOTHYRONINE SODIUM Inactive LEVOTHYROXINE SODIUM 200 MCG TABS 1 TAB PO DAILY LEVOTHYROXINE SODIUM 200 MCG TABS 960699 LEVOTHYROXINE SODIUM Inactive CHANTIX STARTING MONTH ELVIS [...] po q day AZITHROMYCIN 500 MG SOLR 00365165377 AZITHROMYCIN Inactive PREDNISONE 20 MG TAB 2 tablets today, then 1 tablet by mouth days 2-5 PREDNISONE 20 MG TAB 647844 PREDNISONE Inactive TORSEMIDE 20 MG TABS 1 TAB PO BID TORSEMIDE 20 MG TABS 735427 TORSEMIDE Inactive ALBUTEROL SULFATE (2.5 MG/3ML) 0.083% NEBU nebulize 1 vial q 4-6 hours prn shortness of breath ALBUTEROL SULFATE (2.5 MG/3ML) 0.083% NEBU 417659 ALBUTEROL SULFATE Inactive LEVAQUIN 500 MG TAB 1 tablet by mouth daily LEVAQUIN 500 MG TAB 881458 LEVOFLOXACIN Inactive PREDNISONE 20 MG TAB 2 tabs daily for 4 days, 1 tab daily for 4 days, 1/2 tab daily for 4 days PREDNISONE 20 MG TAB 463588 PREDNISONE Inactive ZITHROMAX 1 GM ORAL PACK DIRECTED ZITHROMAX 1 GM ORAL PACK 903414 AZITHROMYCIN Inactive LEVAQUIN 500 MG TAB 1 tablet by mouth daily for 10 days. LEVAQUIN 500 MG TAB 877468 LEVOFLOXACIN Inactive PREDNISONE 20 MG ORAL TABS 3 TABS PO FOR 3 DAYS,THAN 2 TABS FOR 3 DAYS THAN, 1 TAB FOR 3 DAYS THAN, 1/2 TAB FOR 3 DAYS. PREDNISONE 20 MG ORAL TABS 610326 PREDNISONE Inactive PREDNISONE 20 MG ORAL TABS 3 daily for 3 days than, 2 tabs daily for 3 days than, 2 tabs daily for 3 days than, 1 tab daily for 3 days than 1/2 tab daily for 3 days. PREDNISONE 20 MG ORAL TABS 355636 PREDNISONE Inactive AMOXICILLIN 500 MG ORAL TABS Take one by mouth 3 times daily, morning, afternoon and evening.] AMOXICILLIN 500 MG ORAL TABS 310169 AMOXICILLIN Inactive LEVAQUIN 500 MG TAB 1 tablet by mouth daily LEVAQUIN 500 MG TAB 916791 LEVOFLOXACIN Inactive LEVAQUIN 500 MG TAB 1 tablet by mouth daily LEVAQUIN 500 MG TAB 623651 LEVOFLOXACIN Inactive PREDNISONE 20 MG ORAL TABS 3 tabs po for 3 days than,2 tabs po for 3 days,1 tab po for 3 days, 1/2 tab po for 3 days. PREDNISONE 20 MG ORAL TABS 353350 PREDNISONE Inactive ZITHROMAX 250 MG TAB 2 po today, then 1 po q days 2-5 ZITHROMAX 250 MG TAB 0183833 AZITHROMYCIN Inactive PREDNISONE 20 MG TAB 2 tabs daily for 3 days, 1 tab daily for 3 days, 1/2 tab daily for 2 days PREDNISONE 20 MG TAB 622111 PREDNISONE Inactive KEFLEX 500 MG CAP 1 po TID x 7 days KEFLEX 500 MG CAP 429717 CEPHALEXIN Inactive LEVOFLOXACIN 500 MG ORAL TABS take 1 tab po qday LEVOFLOXACIN 500 MG ORAL TABS 327676 LEVOFLOXACIN Inactive PREDNISONE 20 MG TAB 2 tabs daily for 3 days, 1 tab daily for 3 days, 1/2 tab daily for 2 days PREDNISONE 20 MG TAB 732659 PREDNISONE Inactive DOXYCYCLINE HYCLATE 100 MG CAP 1 cap by mouth twice daily DOXYCYCLINE HYCLATE 100 MG CAP 3653812 DOXYCYCLINE HYCLATE Inactive PREDNISONE 20 MG TAB take 3 tabs daily for 3 days, 2 tabs daily for 3 days, 1 tab daily for 3 days, 1/2 tab daily for 3 days PREDNISONE 20 MG TAB 345794 PREDNISONE Inactive PREDNISONE 20 MG TAB take 3 tabs daily for 3 days, 2 tabs daily for 3 days, 1 tab daily for 3 days, 1/2 tab daily for 3 days PREDNISONE 20 MG TAB 761880 PREDNISONE Inactive PREDNISONE 20 MG TAB take 3 tabs daily for 3 days, 2 tabs daily for 3 days, 1 tab daily for 3 days, 1/2 tab daily for 3 days PREDNISONE 20 MG TAB 600604 PREDNISONE Inactive Advance Directives Directive Description Start [...] Peptide - Chemistry sodium, serum 140 mmol/L 707-290 2254/02/09 carbon dioxide, venous blood 39.2 mmol/L 21.0-32.0 [...] 43.52 m[iU]/mL 0.36-3.74 sodium, serum 140 mmol/L 728-115 2793/04/06 carbon dioxide, venous blood 36.3 mmol/L 21.0-32.0 potassium, serum 4.9 mmol/L 3.5-5.2 chloride, serum 100 mmol/L 98-107 blood glucose 62 mg/dL 65-110 urea nitrogen, blood 24 mg/dL 7-18 creatinine, serum 1.09 mg/dL 0.55-1.30 alanine aminotransferase (SGPT), serum 44 U/L 12-78 aspartate aminotransferase (SGOT), serum 25 U/L 15-37 calcium, serum 8.7 mg/dL 8.5-10.1 bilirubin, serum, total 0.50 mg/dL 0.00-1.00 cholesterol, serum 189 mg/dL 006-664 5799/04/06 triglyceride, serum, fasting 117 mg/dL 30-200 HDL [...] 142-424 Encounters Code Encounter Date Provider Facility CPT-57848 Level 4 Est. 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 Patient 16:11:14 FULL ROLL INSPECTOR Austin Albarado MD [facility] CPT-35729 Level 4 Est. Patient 23:08:56 CDT Austin Albarado MD [facility] CPT-84526 Level 4 Est. Patient 13:27:28 CDT Garcia Stroud MD [facility] CPT-96855 Level 4 Est. Patient 10:51:20 CDT Austin Albarado MD [facility] CPT-10486 Level 4 Est. 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 Patient 21:00:28 CDT Austin Albarado MD [facility] CPT-89573 Level 4 Est. Patient 10:03:37 CDT Austin Albarado MD [facility] CPT-00272 Level 3 Est. 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 Patient 21:31:41 FULL ROLL INSPECTOR Austin Albarado MD [facility] CPT-66268 Level 3 Est. Patient 16:22:54 FULL ROLL INSPECTOR Jann Law DO [facility] CPT-04524 Level 3 Est. Patient 11:04:53 FULL ROLL INSPECTOR Tristan Vaughn MD [facility] CPT-02193 Level 4 Est. Patient 09:50:59 CDT Austin Albarado MD [facility] CPT-74903 Level 4 Est. Patient 09:29:00 CDT Austin Albarado MD [facility] CPT-79427 Level 4 Est. Patient 14:23:07 CDT Austin Albarado MD [facility] CPT-83102 Level 4 Est. Patient 14:27:26 CDT Austin Albarado MD [facility] CPT-73093 Level 4 Est. 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 Austin Albarado MD [facility] CPT-36503 Level 3 New Patient 14:17:38 FULL ROLL INSPECTOR Austin Albarado MD [facility] CPT-88964 Level 3 New Patient 11:28:18 FULL ROLL INSPECTOR Austin Albarado MD [facility] Procedures Code Procedure Name Date Entry Date Standard Description CPT-46484 No Charge Offi Visit 10:19:33 FULL ROLL INSPECTOR CPT-64154 Chest 2V Frontal and Lat - XRAY USE ONLY 15:01:41 FULL ROLL INSPECTOR CPT-85873 First Vx - Ix admin for Medicare patients 16:00:49 CDT CPT-42329 Fluzone High-Dose Intramuscular Suspension 16:00:49 CDT CPT-G0009 Administration of Pneumococcal Vaccine 13:25:27 CDT CPT-50537 Prevnar 13 Intramuscular Suspension 13:25:27 CDT 09/26 CPT-G0438 Initial Annual Wellness Exam 11:28:26 CDT CPT-37724 Chest 2V Frontal and Lat 15:00:00 FULL ROLL INSPECTOR CPT-71254 Breathing Tx 14:49:25 FULL ROLL INSPECTOR CPT-18540 Fluzone High Dose 15:08:41 FULL ROLL INSPECTOR CPT-76574 Immunization Single Admin 15:08:41 FULL ROLL INSPECTOR CPT-93744 Fluzone High Dose 17:31:19 CDT CPT-00674 Administration single or combination vaccine inc oral 17 :31:19 CDT CPT-59808 Venipuncture Draw Fee 11:03:05 CDT CPT-TCMM Transitional Care Mgmt-Moderate 16:32:35 CDT CPT-59353 Chest 2V Frontal and Lat 11:51:09 CDT CPT-G0008 Administration of Influenza Virus Vaccine 15:09:08 CDT CPT-25065 Fluzone High-Dose Intramuscular Suspension 15:09:08 CDT CPT-98027 Administration single or combination vaccine inc oral 17 :07:02 FULL ROLL INSPECTOR CPT-35637 Influenza High Dose age 65+ 17:07:02 FULL ROLL INSPECTOR
--- OUTSIDE RECORDS SUMMARY | 2017-02-27 21:58 | XMS REPORT | Clinical Summary ---
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 Chronic airway obstruction, not elsewhere classified Family history of myocardial infarction V17.3 Active Tracie Arrington AIR BRAKE OPERATOR Family history of ischemic heart disease CAD 414.00 Active Tracie Arrington APRN Coronary atherosclerosis of unspecified type of vessel, [place] or graft Peripheral edema 782.3 Active Austin [...] Generic Name NDC Status Provider Patient Instruction CELEXA 20 MG TABS 1 tablet by mouth daily CITALOPRAM HYDROBROMIDE 19648227883 Active Nella José LPN Active KEFLEX 500 MG CAP 1 po BID x 7 days CEPHALEXIN 14755509828 No Longer Active Mica Naren Active KEFLEX 500 MG CAP 1 po BID x 7 days CEPHALEXIN 72661071145 No Longer Active Simona Galloway APRN Active ACYCLOVIR 400 MG TABS 1 pill three times daily ACYCLOVIR 79403649379 No Longer Active Austin Albarado MD Active ACYCLOVIR 400 MG TABS 1 pill three times daily ACYCLOVIR 87483756940 No Longer Active Austin Albarado MD Active ALBUTEROL SULFATE 0.083 % NEBU SOLN one vial per nebulizer every 4 hours as needed Dx. J44.1 ALBUTEROL SULFATE 58841530596 Active Austin Albarado MD Active IPRATROPIUM BROMIDE 0.02 % INH SOLN 1 q 6 hr PRN Dx: J44.1 IPRATROPIUM BROMIDE 42984415690 Active Nella José LPN Active PROAIR HFA 108 (90 BASE) MCG/ACT AERS take 1-2 puffs q 4-6 hrs prn cough/ SOB ALBUTEROL SULFATE 03199796296 Active Nella José LPN Active IPRATROPIUM-ALBUTEROL 0.5-2.5 (3) MG/3ML SOLN 1 VIAL NEB Q 4-6 HRS PRN 04/18 IPRATROPIUM-ALBUTEROL 18993004401 No Longer Active Austin Albarado MD Active ATIVAN 0.5 MG TAB 1 po QD PRN Anxiety LORAZEPAM 64770222149 Active Austin Albarado MD Active PREDNISONE 20 MG ORAL TABS 3 tabs po for 3 days than,2 tabs po for 3 days,1 tab po for 3 days, 1/2 tab po for 3 days. PREDNISONE 06469587041 No Longer Active Simona Galloway APRN Active LEVAQUIN 500 MG TAB 1 tablet by mouth daily LEVOFLOXACIN 34132192706 No Longer Active Simona Galloway APRN Active PREDNISONE 20 MG TAB take 3 tabs daily for 3 days, 2 tabs daily for 3 days, 1 tab daily for 3 days, 1/2 tab daily for 3 days PREDNISONE 90938500594 No Longer Active Austin Albarado MD Active LEVAQUIN 500 MG TAB 1 tablet by mouth daily LEVOFLOXACIN 08664079164 No Longer Active Madhaviavis Rogersida Active FUROSEMIDE 20 MG TABS take 1 tab po BID for swelling FUROSEMIDE 86319621552 Active Austin Albaraod MD Active AMOXICILLIN 500 MG ORAL TABS Take one by mouth 3 times daily, morning, afternoon and evening.] AMOXICILLIN 19668272975 No Longer Active Garcia Stroud MD Active PREDNISONE 20 MG ORAL TABS 3 daily for 3 days than, 2 tabs daily for 3 days than, 2 tabs daily for 3 days than, 1 tab daily for 3 days than 1/2 tab daily for 3 days. PREDNISONE 24925881958 No Longer Active Tracie Arrington APRN Active FLUTICASONE PROPIONATE 50 MCG/ACT SUSP 1 to 2 sprays each nostril daily 08/21 FLUTICASONE PROPIONATE 46575287373 Active Austin Albarado MD Active PREDNISONE 10 MG TAB take 1 tab po qday for severe COPD PREDNISONE 59076889126 Active Austin Albarado MD Active PREDNISONE 20 MG ORAL TABS 3 TABS PO FOR 3 DAYS,THAN 2 TABS FOR 3 DAYS THAN, 1 TAB FOR 3 DAYS THAN, 1/2 TAB FOR 3 DAYS. PREDNISONE 98316088888 No Longer Active Austin Albarado MD Active LEVAQUIN 500 MG TAB 1 tablet by mouth daily for 10 days. LEVOFLOXACIN 79473629406 No Longer Active Austin Albarado MD Active PREDNISONE 20 MG TAB take 3 tabs daily for 3 days, 2 tabs daily for 3 days, 1 tab daily for 3 days, 1/2 tab daily for 3 days PREDNISONE 05180936439 No Longer Active Simona Galloway APRN Active ZITHROMAX 1 GM ORAL PACK DIRECTED AZITHROMYCIN 49524909285 No Longer Active Simona Galloway APRN Active PREDNISONE 20 MG TAB 2 tabs daily for 4 days, 1 tab daily for 4 days, 1/2 tab daily for 4 days PREDNISONE 98167209875 No Longer Active Austin Albarado MD Active LEVAQUIN 500 MG TAB 1 tablet by mouth daily LEVOFLOXACIN 69431648569 No Longer Active Austin Albarado MD Active PREDNISONE 20 MG TAB take 3 tabs daily for 3 days, 2 tabs daily for 3 days, 1 tab daily for 3 days, 1/2 tab daily for 3 days PREDNISONE 66746305735 No Longer Active Austin Albarado MD Active DOXYCYCLINE HYCLATE 100 MG CAP 1 cap by mouth twice daily DOXYCYCLINE HYCLATE 98107549463 No Longer Active Esperanza Modi APRN Active ALBUTEROL SULFATE (2.5 MG/3ML) 0.083% NEBU nebulize 1 vial q 4-6 hours prn shortness of breath ALBUTEROL SULFATE 83855514190 No Longer Active Esperanza Modi APRN Active TORSEMIDE 20 MG TABS 1 TAB PO BID TORSEMIDE 41378476541 No Longer Active Joshllaftab Modi APRN Active PREDNISONE 20 MG TAB 2 tabs daily for 3 days, 1 tab daily for 3 days, 1/2 tab daily for 2 days PREDNISONE 60959783245 No Longer Active Austin Albarado MD Active LEVOFLOXACIN 500 MG ORAL TABS take 1 tab po qday LEVOFLOXACIN 61842222214 No Longer Active Austin Albarado MD Active PREDNISONE 20 MG TAB 2 tablets today, then 1 tablet by mouth days 2-5 PREDNISONE 68959528017 No Longer Active Austin Albarado MD Active AZITHROMYCIN 500 MG SOLR 1 po q day AZITHROMYCIN 23839132754 No Longer Active Austin Albarado MD Active KEFLEX 500 MG CAP 1 po TID x 7 days CEPHALEXIN 75895563359 No Longer Active Tristan Vaughn MD Active EQL VISION FORMULA TABS 1 TAB PO DAILY MULTIPLE VITAMINS-MINERALS 83602218336 No Longer Active Tristan Vaughn MD Active CHANTIX STARTING MONTH ELVIS 0.5 MG X 11 & 1 MG X 42 TABS 0.5mg daily for 3 days , then 0.5mg BID for 4 days, then 1mg BID VARENICLINE TARTRATE 45146049348 No Longer Active Tristan Vaughn MD Active LEVOTHYROXINE SODIUM 200 MCG TABS 1 TAB PO DAILY LEVOTHYROXINE SODIUM 31090158978 No Longer Active Tristan Vaughn MD Active LIOTHYRONINE SODIUM 50 MCG TABS take 1 tab po qday for hypothyroidism LIOTHYRONINE SODIUM 78063165091 No Longer Active Austin Albarado MD Active SYNTHROID 0.025 MG TAB 1 tablet by mouth daily LEVOTHYROXINE SODIUM 82968535534 No Longer Active Austin Albarado MD Active ARMOUR THYROID 120 MG TABS take 1 tab po qday for hypothyroidism THYROID 81066083476 Active Austin Albarado MD Active FLONASE 50 MCG/ACT SUSP 1 spray each nostril am and hs FLUTICASONE PROPIONATE Active Simona Galloway APRN Active ZITHROMAX 1 GM PACK DIRECTED AZITHROMYCIN 52427067434 No Longer Active Austin Albarado MD Active PREDNISONE 20 MG TAB 2 tabs daily for 3 days, 1 tab daily for 3 days, 1/2 tab daily for 2 days PREDNISONE 90572931319 No Longer Active Austin Albarado MD Active ZITHROMAX 250 MG TAB 2 po today, then 1 po q days 2-5 AZITHROMYCIN 49931987414 No Longer Active Austin Albarado MD Active NYSTATIN-TRIAMCINOLONE 777986-5.1 UNIT/GM-% OINT Apply to affected area TID NYSTATIN-TRIAMCINOLONE 62337463256 Active Austin Albarado MD Active ADVAIR DISKUS 500-50 MCG/DOSE AEPB ONE INH BID FLUTICASONE- SALMETEROL 94963938171 Active Austin Albarado MD Active ZITHROMAX 1 GM PACK DIRECTED ZITHROMAX 1 GM PACK 826672 AZITHROMYCIN Inactive SYNTHROID 0.025 MG TAB 1 tablet by mouth daily SYNTHROID 0.025 MG TAB 885913 LEVOTHYROXINE SODIUM Inactive LIOTHYRONINE SODIUM 50 MCG TABS take 1 tab po qday for hypothyroidism LIOTHYRONINE SODIUM 50 MCG TABS 372155 LIOTHYRONINE SODIUM Inactive LEVOTHYROXINE SODIUM 200 MCG TABS 1 TAB PO DAILY LEVOTHYROXINE SODIUM 200 MCG TABS 420591 LEVOTHYROXINE SODIUM Inactive CHANTIX STARTING MONTH ELVIS [...] po q day AZITHROMYCIN 500 MG SOLR 48285371209 AZITHROMYCIN Inactive PREDNISONE 20 MG TAB 2 tablets today, then 1 tablet by mouth days 2-5 PREDNISONE 20 MG TAB 034610 PREDNISONE Inactive TORSEMIDE 20 MG TABS 1 TAB PO BID TORSEMIDE 20 MG TABS 979799 TORSEMIDE Inactive ALBUTEROL SULFATE (2.5 MG/3ML) 0.083% NEBU nebulize 1 vial q 4-6 hours prn shortness of breath ALBUTEROL SULFATE (2.5 MG/3ML) 0.083% [facility] 938905 ALBUTEROL SULFATE Inactive LEVAQUIN 500 MG TAB 1 tablet by mouth daily LEVAQUIN 500 MG TAB 760852 LEVOFLOXACIN Inactive PREDNISONE 20 MG TAB 2 tabs daily for 4 days, 1 tab daily for 4 days, 1/2 tab daily for 4 days PREDNISONE 20 MG TAB 100977 PREDNISONE Inactive ZITHROMAX 1 GM ORAL PACK DIRECTED ZITHROMAX 1 GM ORAL PACK 406106 AZITHROMYCIN Inactive LEVAQUIN 500 MG TAB 1 tablet by mouth daily for 10 days. LEVAQUIN 500 MG TAB 253486 LEVOFLOXACIN Inactive PREDNISONE 20 MG ORAL TABS 3 TABS PO FOR 3 DAYS,THAN 2 TABS FOR 3 DAYS THAN, 1 TAB FOR 3 DAYS THAN, 1/2 TAB FOR 3 DAYS. PREDNISONE 20 MG ORAL TABS 964960 PREDNISONE Inactive PREDNISONE 20 MG ORAL TABS 3 daily for 3 days than, 2 tabs daily for 3 days than, 2 tabs daily for 3 days than, 1 tab daily for 3 days than 1/2 tab daily for 3 days. PREDNISONE 20 MG ORAL TABS 626170 PREDNISONE Inactive AMOXICILLIN 500 MG ORAL TABS Take one by mouth 3 times daily, morning, afternoon and evening.] AMOXICILLIN 500 MG ORAL TABS 683495 AMOXICILLIN Inactive LEVAQUIN 500 MG TAB 1 tablet by mouth daily LEVAQUIN 500 MG TAB 839312 LEVOFLOXACIN Inactive LEVAQUIN 500 MG TAB 1 tablet by mouth daily LEVAQUIN 500 MG TAB 041134 LEVOFLOXACIN Inactive PREDNISONE 20 MG ORAL TABS 3 tabs po for 3 days than,2 tabs po for 3 days,1 tab po for 3 days, 1/2 tab po for 3 days. PREDNISONE 20 MG ORAL TABS 452325 PREDNISONE Inactive ZITHROMAX 250 MG TAB 2 po today, then 1 po q days 2-5 ZITHROMAX 250 MG TAB 9484221 AZITHROMYCIN Inactive PREDNISONE 20 MG TAB 2 tabs daily for 3 days, 1 tab daily for 3 days, 1/2 tab daily for 2 days PREDNISONE 20 MG TAB 303728 PREDNISONE Inactive KEFLEX 500 MG CAP 1 po TID x 7 days KEFLEX 500 MG CAP 875175 CEPHALEXIN Inactive LEVOFLOXACIN 500 MG ORAL TABS take 1 tab po qday LEVOFLOXACIN 500 MG ORAL TABS 364477 LEVOFLOXACIN Inactive PREDNISONE 20 MG TAB 2 tabs daily for 3 days, 1 tab daily for 3 days, 1/2 tab daily for 2 days PREDNISONE 20 MG TAB 960251 PREDNISONE Inactive DOXYCYCLINE HYCLATE 100 MG CAP 1 cap by mouth twice daily DOXYCYCLINE HYCLATE 100 MG CAP 7558884 DOXYCYCLINE HYCLATE Inactive PREDNISONE 20 MG TAB take 3 tabs daily for 3 days, 2 tabs daily for 3 days, 1 tab daily for 3 days, 1/2 tab daily for 3 days PREDNISONE 20 MG TAB 184069 PREDNISONE Inactive PREDNISONE 20 MG TAB take 3 tabs daily for 3 days, 2 tabs daily for 3 days, 1 tab daily for 3 days, 1/2 tab daily for 3 days PREDNISONE 20 MG TAB 160574 PREDNISONE Inactive PREDNISONE 20 MG TAB take 3 tabs daily for 3 days, 2 tabs daily for 3 days, 1 tab daily for 3 days, 1/2 tab daily for 3 days PREDNISONE 20 MG TAB 433399 PREDNISONE Inactive ACYCLOVIR 400 MG TABS 1 pill three times daily ACYCLOVIR 400 MG TABS 665256 ACYCLOVIR Inactive ACYCLOVIR 400 MG TABS 1 pill three times daily ACYCLOVIR 400 MG TABS 811992 ACYCLOVIR Inactive KEFLEX 500 MG CAP 1 po BID x 7 days KEFLEX 500 MG CAP 107558 CEPHALEXIN Inactive KEFLEX 500 MG CAP 1 po BID x 7 days KEFLEX 500 MG CAP 688467 CEPHALEXIN Inactive Advance Directives Directive Description Start [...] Peptide - Chemistry sodium, serum 140 mmol/L 700-443 2078/02/09 carbon dioxide, venous blood 39.2 mmol/L 21.0-32.0 [...] 0.00-1.00 Encounters Code Encounter Date Provider Facility CPT-33693 Level 3 Est. Patient 16:07:19 CDT Simona Galloway APRN [facility] CPT-41540 Level 4 Est. Patient 13:31:03 CDT Austin Albarado MD [facility] CPT-41784 Level 4 Est. Patient 17:54:41 IMPREGNATOR OPERATOR Austin Albarado MD [facility] CPT-07633 Level 4 Est. Patient 16:11:14 IMPREGNATOR OPERATOR Austin Albarado MD [facility] CPT-59858 Level 4 Est. Patient 23:08:56 CDT Austin Albarado MD [facility] CPT-03958 Level 4 Est. Patient 13:27:28 CDT Garcia Stroud MD [facility]-49433 Level 4 Est. Patient 10:51:20 CDT Austin Albarado MD [facility] CPT-80631 Level 4 Est. Patient 20:09:43 IMPREGNATOR OPERATOR Austin Albarado MD [facility] CPT-47716 Level 4 Est. Patient 21:00:28 CDT Austin Albarado MD [facility] CPT-81639 Level 4 Est. Patient 10:03:37 CDT Austin Albarado MD [facility] CPT-26619 Level 3 Est. Patient 10:50:28 IMPREGNATOR OPERATOR Austin Albarado MD [facility] CPT-95232 Level 4 Est. Patient 21:31:41 IMPREGNATOR OPERATOR Austin Albarado MD [facility] CPT-06018 Level 3 Est. Patient 16:22:54 IMPREGNATOR OPERATOR Jann Law DO [facility] CPT-69543 Level 3 Est. Patient 11:04:53 IMPREGNATOR OPERATOR Tristan Vaughn MD [facility] CPT-11835 Level 4 Est. Patient 09:50:59 CDT Austin Albarado MD [facility] CPT-28530 Level 4 Est. Patient 09:29:00 CDT Austin Albarado MD [facility] CPT-36075 Level 4 Est. Patient 14:23:07 CDT Austin Albarado MD [facility] CPT-79213 Level 4 Est. Patient 14:27:26 CDT Austin Albarado MD [facility] CPT-41499 Level 4 Est. Patient 12:51:43 IMPREGNATOR OPERATOR Austin Albarado MD [facility] CPT-69481 Level 3 New Patient 14:17:38 IMPREGNATOR OPERATOR Austin Albarado MD [facility] CPT-05384 Level 3 New Patient 11:28:18 IMPREGNATOR OPERATOR Austin Albarado MD [facility] Procedures Code Procedure Name Date Entry Date Standard Description CPT-G0439 Subsequent Annual Wellness Exam 08:13:24 CDT CPT-TCMM Transitional Care Mgmt-Moderate 14:53:36 IMPREGNATOR OPERATOR CPT-12228 No Charge Offi Visit 10:19:33 IMPREGNATOR OPERATOR CPT-94944 Chest 2V Frontal and Lat - XRAY USE ONLY 15:01:41 IMPREGNATOR OPERATOR CPT-81491 First Vx - Ix admin for Medicare patients 16:00:49 CDT CPT-16847 Fluzone High-Dose Intramuscular Suspension 16:00:49 CDT CPT-G0009 Administration of Pneumococcal Vaccine 13:25:27 CDT CPT-82176 Prevnar 13 Intramuscular Suspension 13:25:27 CDT 09/26 CPT-G0438 Initial Annual Wellness Exam 11:28:26 CDT CPT-38046 Chest 2V Frontal and Lat 15:00:00 IMPREGNATOR OPERATOR CPT-40192 Breathing Tx 14:49:25 IMPREGNATOR OPERATOR CPT-14236 Fluzone High Dose 15:08:41 IMPREGNATOR OPERATOR CPT-38458 Immunization Single Admin 15:08:41 IMPREGNATOR OPERATOR CPT-12124 Fluzone High Dose 17:31:19 CDT CPT-03848 Administration single or combination vaccine inc oral 17 :31:19 CDT CPT-24574 Venipuncture Draw Fee 11:03:05 CDT CPT-TCMM Transitional Care Mgmt-Moderate 16:32:35 CDT CPT-00750 Chest 2V Frontal and Lat 11:51:09 CDT CPT-G0008 Administration of Influenza Virus Vaccine 15:09:08 CDT CPT-06177 Fluzone High-Dose Intramuscular Suspension 15:09:08 CDT CPT-19235 Administration single or combination vaccine inc oral 17 :07:02 IMPREGNATOR OPERATOR CPT-80612 Influenza High Dose age 65+ 17:07:02 IMPREGNATOR OPERATOR
--- OUTSIDE RECORDS SUMMARY | 2017-02-27 21:59 | XMS REPORT | Clinical Summary ---
Author Author Admin, E Organization [employer] Address Unknown Phone Unavailable Allergies, Adverse Reactions, [...] Coronary atherosclerosis of unspecified type of vessel, grand traverse or graft Peripheral edema 782.3 Active Austin [...] Q 6 hrs prn DX: J44.9 IPRATROPIUM-ALBUTEROL 81123114533 Active Mackenzie Sher RMA Active IPRATROPIUM BROMIDE 0.02 % INH SOLN 1 q 6 hr PRN Dx: J44.1 12/29 IPRATROPIUM BROMIDE 01188469784 No Longer Active Mackenzie Christos RMA Active ACYCLOVIR 400 MG TABS 1 pill three times daily ACYCLOVIR 44379705975 No Longer Active Austin Albarado MD Active POTASSIUM CHLORIDE ER 20 MEQ ORAL CR-TABS 1 po BID along with the lasix 12/24 POTASSIUM CHLORIDE 55170197594 Active Austin Albarado MD Active FUROSEMIDE 40 MG TAB 1 tablet by mouth BID for swelling FUROSEMIDE 01886339740 Active Austin Albarado MD Active CELEXA 20 MG TABS 1 tablet by mouth daily CITALOPRAM HYDROBROMIDE 74026070250 Active Austin Albarado MD Active KEFLEX 500 MG CAP 1 po BID x 7 days CEPHALEXIN 84809596363 No Longer Active Mica Sneed Active KEFLEX 500 MG CAP 1 po BID x 7 days CEPHALEXIN 61911052608 No Longer Active Simona Galloway APRN Active ACYCLOVIR 400 MG TABS 1 pill three times daily ACYCLOVIR 86069773081 No Longer Active Austin Albarado MD Active ACYCLOVIR 400 MG TABS 1 pill three times daily ACYCLOVIR 10726163977 No Longer Active Austin Albarado MD Active ALBUTEROL SULFATE 0.083 % NEBU SOLN one vial per nebulizer every 4 hours as needed Dx. J44.1 ALBUTEROL SULFATE 85812789108 Active Austin Albarado MD Active PROAIR HFA 108 (90 BASE) MCG/ACT AERS take 1-2 puffs q 4-6 hrs prn cough/ SOB ALBUTEROL SULFATE 29631402245 Active Nella José LPN Active IPRATROPIUM-ALBUTEROL 0.5-2.5 (3) MG/3ML SOLN 1 VIAL NEB Q 4-6 HRS PRN 04/18 IPRATROPIUM-ALBUTEROL 07562102410 No Longer Active Austin Albarado MD Active ATIVAN 0.5 MG TAB 1 po QD PRN Anxiety LORAZEPAM 48739796810 Active Austin Albarado MD Active PREDNISONE 20 MG ORAL TABS 3 tabs po for 3 days than,2 tabs po for 3 days,1 tab po for 3 days, 1/2 tab po for 3 days. PREDNISONE 00881502507 No Longer Active Simona Galloway APRN Active LEVAQUIN 500 MG TAB 1 tablet by mouth daily LEVOFLOXACIN 92335131489 No Longer Active Simona Galloway APRN Active PREDNISONE 20 MG TAB take 3 tabs daily for 3 days, 2 tabs daily for 3 days, 1 tab daily for 3 days, 1/2 tab daily for 3 days PREDNISONE 85723747702 No Longer Active Austin Albarado MD Active LEVAQUIN 500 MG TAB 1 tablet by mouth daily LEVOFLOXACIN 42150515476 No Longer Active Madhavi Macarena Active FUROSEMIDE 20 MG TABS take 1 tab po BID for swelling FUROSEMIDE 82173105080 Active Austin Albarado MD Active AMOXICILLIN 500 MG ORAL TABS Take one by mouth 3 times daily, morning, afternoon and evening.] AMOXICILLIN 70421850860 No Longer Active Garcia Stroud MD Active PREDNISONE 20 MG ORAL TABS 3 daily for 3 days than, 2 tabs daily for 3 days than, 2 tabs daily for 3 days than, 1 tab daily for 3 days than 1/2 tab daily for 3 days. PREDNISONE 41739916257 No Longer Active Tracie Arrington APRN Active FLUTICASONE PROPIONATE 50 MCG/ACT SUSP 1 to 2 sprays each nostril daily 08/21 FLUTICASONE PROPIONATE 34506468183 Active Austin Albarado MD Active PREDNISONE 10 MG TAB take 1 tab po qday for severe COPD PREDNISONE 81118850458 Active Austin Albarado MD Active PREDNISONE 20 MG ORAL TABS 3 TABS PO FOR 3 DAYS,THAN 2 TABS FOR 3 DAYS THAN, 1 TAB FOR 3 DAYS THAN, 1/2 TAB FOR 3 DAYS. PREDNISONE 55936074378 No Longer Active Austin Albarado MD Active LEVAQUIN 500 MG TAB 1 tablet by mouth daily for 10 days. LEVOFLOXACIN 39097332837 No Longer Active Austin Albarado MD Active PREDNISONE 20 MG TAB take 3 tabs daily for 3 days, 2 tabs daily for 3 days, 1 tab daily for 3 days, 1/2 tab daily for 3 days PREDNISONE 76538724829 No Longer Active Simona Galloway APRN Active ZITHROMAX 1 GM ORAL PACK DIRECTED AZITHROMYCIN 43620159791 No Longer Active Simona Galloway APRN Active PREDNISONE 20 MG TAB 2 tabs daily for 4 days, 1 tab daily for 4 days, 1/2 tab daily for 4 days PREDNISONE 17105550587 No Longer Active Austin Albarado MD Active LEVAQUIN 500 MG TAB 1 tablet by mouth daily LEVOFLOXACIN 74609845066 No Longer Active Austin Albarado MD Active PREDNISONE 20 MG TAB take 3 tabs daily for 3 days, 2 tabs daily for 3 days, 1 tab daily for 3 days, 1/2 tab daily for 3 days PREDNISONE 93387070482 No Longer Active Austin Albarado MD Active DOXYCYCLINE HYCLATE 100 MG CAP 1 cap by mouth twice daily DOXYCYCLINE HYCLATE 03223456890 No Longer Active Esperanza Modi APRN Active ALBUTEROL SULFATE (2.5 MG/3ML) 0.083% NEBU nebulize 1 vial q 4-6 hours prn shortness of breath ALBUTEROL SULFATE 51284937522 No Longer Active Esperanza Modi APRN Active TORSEMIDE 20 MG TABS 1 TAB PO BID TORSEMIDE 46595471113 No Longer Active Esperanza Modi JESSI Active PREDNISONE 20 MG TAB 2 tabs daily for 3 days, 1 tab daily for 3 days, 1/2 tab daily for 2 days PREDNISONE 56434049859 No Longer Active Austin Albarado MD Active LEVOFLOXACIN 500 MG ORAL TABS take 1 tab po qday LEVOFLOXACIN 65788773434 No Longer Active Austin Albarado MD Active PREDNISONE 20 MG TAB 2 tablets today, then 1 tablet by mouth days 2-5 PREDNISONE 29385984268 No Longer Active Austin Albarado MD Active AZITHROMYCIN 500 MG SOLR 1 po q day AZITHROMYCIN 38305126805 No Longer Active Austin Albarado MD Active KEFLEX 500 MG CAP 1 po TID x 7 days CEPHALEXIN 49833452799 No Longer Active Tristan Vaughn MD Active EQL VISION FORMULA TABS 1 TAB PO DAILY MULTIPLE VITAMINS-MINERALS 64580078044 No Longer Active Tristan Vaughn MD Active CHANTIX STARTING MONTH ELVIS 0.5 MG X 11 & 1 MG X 42 TABS 0.5mg daily for 3 days , then 0.5mg BID for 4 days, then 1mg BID VARENICLINE TARTRATE 82929813205 No Longer Active Tristan Vaughn MD Active LEVOTHYROXINE SODIUM 200 MCG TABS 1 TAB PO DAILY LEVOTHYROXINE SODIUM 95269407354 No Longer Active Tristan Vaughn MD Active LIOTHYRONINE SODIUM 50 MCG TABS take 1 tab po qday for hypothyroidism LIOTHYRONINE SODIUM 25407355450 No Longer Active Austin Albarado MD Active SYNTHROID 0.025 MG TAB 1 tablet by mouth daily LEVOTHYROXINE SODIUM 64385932558 No Longer Active Austin Albarado MD Active ARMOUR THYROID 120 MG TABS take 1 tab po qday for hypothyroidism THYROID 17700247577 Active Austin Albarado MD Active FLONASE 50 MCG/ACT SUSP 1 spray each nostril am and hs FLUTICASONE PROPIONATE Active Simona Galloway APRN Active ZITHROMAX 1 GM PACK DIRECTED AZITHROMYCIN 18692926585 No Longer Active Austin Albarado MD Active PREDNISONE 20 MG TAB 2 tabs daily for 3 days, 1 tab daily for 3 days, 1/2 tab daily for 2 days PREDNISONE 88085000689 No Longer Active Austin Albarado MD Active ZITHROMAX 250 MG TAB 2 po today, then 1 po q days 2-5 AZITHROMYCIN 18577872693 No Longer Active Austin Albarado MD Active NYSTATIN-TRIAMCINOLONE 662770-6.1 UNIT/GM-% OINT Apply to affected area TID NYSTATIN-TRIAMCINOLONE 60257786223 Active Austin Albarado MD Active ADVAIR DISKUS 500-50 MCG/DOSE AEPB ONE INH BID FLUTICASONE- SALMETEROL 90467782345 Active Austin Albarado MD Active ZITHROMAX 1 GM PACK DIRECTED ZITHROMAX 1 GM PACK 565393 AZITHROMYCIN Inactive SYNTHROID 0.025 MG TAB 1 tablet by mouth daily SYNTHROID 0.025 MG TAB 594306 LEVOTHYROXINE SODIUM Inactive LIOTHYRONINE SODIUM 50 MCG TABS take 1 tab po qday for hypothyroidism LIOTHYRONINE SODIUM 50 MCG TABS 558120 LIOTHYRONINE SODIUM Inactive LEVOTHYROXINE SODIUM 200 MCG TABS 1 TAB PO DAILY LEVOTHYROXINE SODIUM 200 MCG TABS 087436 LEVOTHYROXINE SODIUM Inactive CHANTIX STARTING MONTH ELVIS [...] po q day AZITHROMYCIN 500 MG SOLR 33800242612 AZITHROMYCIN Inactive PREDNISONE 20 MG TAB 2 tablets today, then 1 tablet by mouth days 2-5 PREDNISONE 20 MG TAB 871103 PREDNISONE Inactive TORSEMIDE 20 MG TABS 1 TAB PO BID TORSEMIDE 20 MG TABS 854143 TORSEMIDE Inactive ALBUTEROL SULFATE (2.5 MG/3ML) 0.083% NEBU nebulize 1 vial q 4-6 hours prn shortness of breath ALBUTEROL SULFATE (2.5 MG/3ML) 0.083% NEBU 172473 ALBUTEROL SULFATE Inactive LEVAQUIN 500 MG TAB 1 tablet by mouth daily LEVAQUIN 500 MG TAB 646390 LEVOFLOXACIN Inactive PREDNISONE 20 MG TAB 2 tabs daily for 4 days, 1 tab daily for 4 days, 1/2 tab daily for 4 days PREDNISONE 20 MG TAB 264201 PREDNISONE Inactive ZITHROMAX 1 GM ORAL PACK DIRECTED ZITHROMAX 1 GM ORAL PACK 874650 AZITHROMYCIN Inactive LEVAQUIN 500 MG TAB 1 tablet by mouth daily for 10 days. LEVAQUIN 500 MG TAB 138028 LEVOFLOXACIN Inactive PREDNISONE 20 MG ORAL TABS 3 TABS PO FOR 3 DAYS,THAN 2 TABS FOR 3 DAYS THAN, 1 TAB FOR 3 DAYS THAN, 1/2 TAB FOR 3 DAYS. PREDNISONE 20 MG ORAL TABS 989814 PREDNISONE Inactive PREDNISONE 20 MG ORAL TABS 3 daily for 3 days than, 2 tabs daily for 3 days than, 2 tabs daily for 3 days than, 1 tab daily for 3 days than 1/2 tab daily for 3 days. PREDNISONE 20 MG ORAL TABS 212216 PREDNISONE Inactive AMOXICILLIN 500 MG ORAL TABS Take one by mouth 3 times daily, morning, afternoon and evening.] AMOXICILLIN 500 MG ORAL TABS 144447 AMOXICILLIN Inactive LEVAQUIN 500 MG TAB 1 tablet by mouth daily LEVAQUIN 500 MG TAB 926331 LEVOFLOXACIN Inactive LEVAQUIN 500 MG TAB 1 tablet by mouth daily LEVAQUIN 500 MG TAB 460280 LEVOFLOXACIN Inactive PREDNISONE 20 MG ORAL TABS 3 tabs po for 3 days than,2 tabs po for 3 days,1 tab po for 3 days, 1/2 tab po for 3 days. PREDNISONE 20 MG ORAL TABS 708003 PREDNISONE Inactive IPRATROPIUM BROMIDE 0.02 % INH SOLN 1 q 6 hr PRN Dx: J44.1 12/29 IPRATROPIUM BROMIDE 0.02 % INH SOLN 596118 IPRATROPIUM BROMIDE Inactive ZITHROMAX 250 MG TAB 2 po today, then 1 po q days 2-5 ZITHROMAX 250 MG TAB 9423868 AZITHROMYCIN Inactive PREDNISONE 20 MG TAB 2 tabs daily for 3 days, 1 tab daily for 3 days, 1/2 tab daily for 2 days PREDNISONE 20 MG TAB 939226 PREDNISONE Inactive KEFLEX 500 MG CAP 1 po TID x 7 days KEFLEX 500 MG CAP 369048 CEPHALEXIN Inactive LEVOFLOXACIN 500 MG ORAL TABS take 1 tab po qday LEVOFLOXACIN 500 MG ORAL TABS 352986 LEVOFLOXACIN Inactive PREDNISONE 20 MG TAB 2 tabs daily for 3 days, 1 tab daily for 3 days, 1/2 tab daily for 2 days PREDNISONE 20 MG TAB 040393 PREDNISONE Inactive DOXYCYCLINE HYCLATE 100 MG CAP 1 cap by mouth twice daily DOXYCYCLINE HYCLATE 100 MG CAP 1954742 DOXYCYCLINE HYCLATE Inactive PREDNISONE 20 MG TAB take 3 tabs daily for 3 days, 2 tabs daily for 3 days, 1 tab daily for 3 days, 1/2 tab daily for 3 days PREDNISONE 20 MG TAB 629882 PREDNISONE Inactive PREDNISONE 20 MG TAB take 3 tabs daily for 3 days, 2 tabs daily for 3 days, 1 tab daily for 3 days, 1/2 tab daily for 3 days PREDNISONE 20 MG TAB 600563 PREDNISONE Inactive PREDNISONE 20 MG TAB take 3 tabs daily for 3 days, 2 tabs daily for 3 days, 1 tab daily for 3 days, 1/2 tab daily for 3 days PREDNISONE 20 MG TAB 523676 PREDNISONE Inactive ACYCLOVIR 400 MG TABS 1 pill three times daily ACYCLOVIR 400 MG TABS 19720518 ACYCLOVIR Inactive ACYCLOVIR 400 MG TABS 1 pill three times daily ACYCLOVIR 400 MG TABS 19720518 ACYCLOVIR Inactive KEFLEX 500 MG CAP 1 po BID x 7 days KEFLEX 500 MG CAP 651464 CEPHALEXIN Inactive KEFLEX 500 MG CAP 1 po BID x 7 days KEFLEX 500 MG CAP 268270 CEPHALEXIN Inactive ACYCLOVIR 400 MG TABS 1 [...] Peptide - Chemistry sodium, serum 140 mmol/L 696-554 7344/02/09 carbon dioxide, venous blood 39.2 mmol/L 21.0-32.0 [...] 0.00-1.00 Encounters Code Encounter Date Provider Facility CPT-97831 Level 4 Est. Patient 18:17:08 CDT Austin Albarado MD [facility] CPT-62482 Level 3 Est. Patient 16:07:19 CDT Simona Galloway APRN [facility] CPT-64086 Level 4 Est. Patient 13:31:03 CDT Austin Albarado MD [facility] CPT-18905 Level 4 Est. Patient 17:54:41 PROCEDURE TECH Austin Albarado MD [facility] CPT-61080 Level 4 Est. Patient 16:11:14 PROCEDURE TECH Austin Albarado MD [facility] CPT-98154 Level 4 Est. Patient 23:08:56 CDT Austin Albarado MD [facility]-88878 Level 4 Est. Patient 13:27:28 CDT Garcia Stroud MD [facility] CPT-83847 Level 4 Est. Patient 10:51:20 CDT Austin Albarado MD [facility] CPT-57920 Level 4 Est. Patient 20:09:43 PROCEDURE TECH Austin Albarado MD [facility] CPT-38062 Level 4 Est. Patient 21:00:28 CDT Austin Albarado MD [facility] CPT-32311 Level 4 Est. Patient 10:03:37 CDT Austin Albarado MD [facility] CPT-62132 Level 3 Est. Patient 10:50:28 PROCEDURE TECH Austin Albarado MD [facility] CPT-56921 Level 4 Est. Patient 21:31:41 PROCEDURE TECH Austin Albarado MD [facility] CPT-22608 Level 3 Est. Patient 16:22:54 PROCEDURE TECH Jann Law DO [facility] CPT-02395 Level 3 Est. Patient 11:04:53 PROCEDURE TECH Tristan Vaughn MD [facility] CPT-69639 Level 4 Est. Patient 09:50:59 CDT Austin Albarado MD [facility] CPT-42560 Level 4 Est. Patient 09:29:00 CDT Austin Albarado MD [facility] CPT-13353 Level 4 Est. Patient 14:23:07 CDT Austin Albarado MD [facility] CPT-86836 Level 4 Est. Patient 14:27:26 CDT Austin Albarado MD [facility] CPT-12295 Level 4 Est. Patient 12:51:43 PROCEDURE TECH Austin Albarado MD [facility] CPT-81591 Level 3 New Patient 14:17:38 PROCEDURE TECH Austin Albarado MD [facility] CPT-55306 Level 3 New Patient 11:28:18 PROCEDURE TECH Austin Albarado MD [facility] Procedures Code Procedure Name Date Entry Date Standard Description CPT-G0439 Subsequent Annual Wellness Exam 08:13:24 CDT CPT-TCMM Transitional Care Mgmt-Moderate 14:53:36 PROCEDURE TECH CPT-96263 No Charge Offi Visit 10:19:33 PROCEDURE TECH CPT-19444 Chest 2V Frontal and Lat - XRAY USE ONLY 15:01:41 PROCEDURE TECH CPT-24808 First Vx - Ix admin for Medicare patients 16:00:49 CDT CPT-72923 Fluzone High-Dose Intramuscular Suspension 16:00:49 CDT CPT-G0009 Administration of Pneumococcal Vaccine 13:25:27 CDT CPT-74388 Prevnar 13 Intramuscular Suspension 13:25:27 CDT 09/26 CPT-G0438 Initial Annual Wellness Exam 11:28:26 CDT CPT-04141 Chest 2V Frontal and Lat 15:00:00 PROCEDURE TECH CPT-85136 Breathing Tx 14:49:25 PROCEDURE TECH CPT-31361 Fluzone High Dose 15:08:41 PROCEDURE TECH CPT-30285 Immunization Single Admin 15:08:41 PROCEDURE TECH CPT-69841 Fluzone High Dose 17:31:19 CDT CPT-54885 Administration single or combination vaccine inc oral 17 :31:19 CDT CPT-76215 Venipuncture Draw Fee 11:03:05 CDT CPT-TCMM Transitional Care Mgmt-Moderate 16:32:35 CDT CPT-22712 Chest 2V Frontal and Lat 11:51:09 CDT CPT-G0008 Administration of Influenza Virus Vaccine 15:09:08 CDT CPT-62086 Fluzone High-Dose Intramuscular Suspension 15:09:08 CDT CPT-27310 Administration single or combination vaccine inc oral 17 :07:02 PROCEDURE TECH CPT-77037 Influenza High Dose age 65+ 17:07:02 PROCEDURE TECH
--- OUTSIDE RECORDS SUMMARY | 2017-02-27 22:00 | XMS REPORT | Clinical Summary ---
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 J44.1 ALBUTEROL SULFATE 13603991958 Active Nella José LPN Active IPRATROPIUM BROMIDE 0.02 % INH SOLN 1 q 6 hr PRN Dx: J44.1 IPRATROPIUM BROMIDE 73749691353 Active Nella José LPN Active PROAIR HFA 108 (90 BASE) MCG/ACT AERS take 1-2 puffs q 4-6 hrs prn cough/ SOB ALBUTEROL SULFATE 65323807798 Active Nella José LPN Active IPRATROPIUM-ALBUTEROL 0.5-2.5 (3) MG/3ML SOLN 1 VIAL NEB Q 4-6 HRS PRN 04/18 IPRATROPIUM-ALBUTEROL 29703614927 No Longer Active Austin Albarado MD Active ATIVAN 0.5 MG TAB 1 po QD PRN Anxiety LORAZEPAM 97661612236 Active Nella José LPN Active PREDNISONE 20 MG ORAL TABS 3 tabs po for 3 days than,2 tabs po for 3 days,1 tab po for 3 days, 1/2 tab po for 3 days. PREDNISONE 93771603367 No Longer Active Simona Galloway APRN Active LEVAQUIN 500 MG TAB 1 tablet by mouth daily LEVOFLOXACIN 03311261568 No Longer Active Simona Galloway APRN Active PREDNISONE 20 MG TAB take 3 tabs daily for 3 days, 2 tabs daily for 3 days, 1 tab daily for 3 days, 1/2 tab daily for 3 days PREDNISONE 89793986642 No Longer Active Austin Albarado MD Active LEVAQUIN 500 MG TAB 1 tablet by mouth daily LEVOFLOXACIN 68762892056 No Longer Active Madhavi Fiore Active FUROSEMIDE 20 MG TABS take 1 tab po BID for swelling FUROSEMIDE 85656804730 Active Austin Albarado MD Active AMOXICILLIN 500 MG ORAL TABS Take one by mouth 3 times daily, morning, afternoon and evening.] AMOXICILLIN 42052800656 No Longer Active Garcia Stroud MD Active PREDNISONE 20 MG ORAL TABS 3 daily for 3 days than, 2 tabs daily for 3 days than, 2 tabs daily for 3 days than, 1 tab daily for 3 days than 1/2 tab daily for 3 days. PREDNISONE 98999598790 No Longer Active Tracie Arrington APRN Active FLUTICASONE PROPIONATE 50 MCG/ACT SUSP 1 to 2 sprays each nostril daily 08/21 FLUTICASONE PROPIONATE 50976381383 Active Simona Galloway APRN Active PREDNISONE 10 MG TAB take 1 tab po qday for severe COPD PREDNISONE 44324208890 Active Austin Albarado MD Active PREDNISONE 20 MG ORAL TABS 3 TABS PO FOR 3 DAYS,THAN 2 TABS FOR 3 DAYS THAN, 1 TAB FOR 3 DAYS THAN, 1/2 TAB FOR 3 DAYS. PREDNISONE 76086253603 No Longer Active Austin Albarado MD Active LEVAQUIN 500 MG TAB 1 tablet by mouth daily for 10 days. LEVOFLOXACIN 18059722908 No Longer Active Austin Albarado MD Active PREDNISONE 20 MG TAB take 3 tabs daily for 3 days, 2 tabs daily for 3 days, 1 tab daily for 3 days, 1/2 tab daily for 3 days PREDNISONE 58699700769 No Longer Active Simona Galloway APRN Active ZITHROMAX 1 GM ORAL PACK DIRECTED AZITHROMYCIN 18828896050 No Longer Active Simona Galloway APRN Active PREDNISONE 20 MG TAB 2 tabs daily for 4 days, 1 tab daily for 4 days, 1/2 tab daily for 4 days PREDNISONE 45474662431 No Longer Active Austin Albarado MD Active LEVAQUIN 500 MG TAB 1 tablet by mouth daily LEVOFLOXACIN 92859879280 No Longer Active Austin Albarado MD Active PREDNISONE 20 MG TAB take 3 tabs daily for 3 days, 2 tabs daily for 3 days, 1 tab daily for 3 days, 1/2 tab daily for 3 days PREDNISONE 21628792049 No Longer Active Austin Albarado MD Active DOXYCYCLINE HYCLATE 100 MG CAP 1 cap by mouth twice daily DOXYCYCLINE HYCLATE 89666302328 No Longer Active Esperanza Modi APRN Active ALBUTEROL SULFATE (2.5 MG/3ML) 0.083% NEBU nebulize 1 vial q 4-6 hours prn shortness of breath ALBUTEROL SULFATE 67260074382 No Longer Active Esperanza Modi APRN Active TORSEMIDE 20 MG TABS 1 TAB PO BID TORSEMIDE 62149125011 No Longer Active Esperanza Modi APRN Active PREDNISONE 20 MG TAB 2 tabs daily for 3 days, 1 tab daily for 3 days, 1/2 tab daily for 2 days PREDNISONE 81866341215 No Longer Active Austin Albarado MD Active LEVOFLOXACIN 500 MG ORAL TABS take 1 tab po qday LEVOFLOXACIN 38063536147 No Longer Active Austin Albarado MD Active PREDNISONE 20 MG TAB 2 tablets today, then 1 tablet by mouth days 2-5 PREDNISONE 43458559706 No Longer Active Austin Albarado MD Active AZITHROMYCIN 500 MG SOLR 1 po q day AZITHROMYCIN 07535568371 No Longer Active Austin Albarado MD Active KEFLEX 500 MG CAP 1 po TID x 7 days CEPHALEXIN 64771480411 No Longer Active Tristan Vaughn MD Active EQL VISION FORMULA TABS 1 TAB PO DAILY MULTIPLE VITAMINS-MINERALS 45776503213 No Longer Active Tristan Vuaghn MD Active CHANTIX STARTING MONTH ELVIS 0.5 MG X 11 & 1 MG X 42 TABS 0.5mg daily for 3 days , then 0.5mg BID for 4 days, then 1mg BID VARENICLINE TARTRATE 95834162923 No Longer Active Tristan Vaughn MD Active LEVOTHYROXINE SODIUM 200 MCG TABS 1 TAB PO DAILY LEVOTHYROXINE SODIUM 30527056114 No Longer Active Tristan Vaughn MD Active LIOTHYRONINE SODIUM 50 MCG TABS take 1 tab po qday for hypothyroidism LIOTHYRONINE SODIUM 65706836119 No Longer Active Austin Albarado MD Active SYNTHROID 0.025 MG TAB 1 tablet by mouth daily LEVOTHYROXINE SODIUM 75116569472 No Longer Active Austin Albarado MD Active ARMOUR THYROID 120 MG TABS take 1 tab po qday for hypothyroidism THYROID 29226894461 Active Austin Albarado MD Active FLONASE 50 MCG/ACT SUSP 1 spray each nostril am and hs FLUTICASONE PROPIONATE Active Simona Galloway APRN Active ZITHROMAX 1 GM PACK DIRECTED AZITHROMYCIN 08129179526 No Longer Active Austin Albarado MD Active PREDNISONE 20 MG TAB 2 tabs daily for 3 days, 1 tab daily for 3 days, 1/2 tab daily for 2 days PREDNISONE 34178079020 No Longer Active Austin Albarado MD Active ZITHROMAX 250 MG TAB 2 po today, then 1 po q days 2-5 AZITHROMYCIN 27337078517 No Longer Active Austin Albarado MD Active NYSTATIN-TRIAMCINOLONE 293708-1.1 UNIT/GM-% OINT Apply to affected area TID NYSTATIN-TRIAMCINOLONE 06929403857 Active Austin Albarado MD Active ADVAIR DISKUS 500-50 MCG/DOSE AEPB ONE INH BID FLUTICASONE- SALMETEROL 52783258635 Active Austin Albarado MD Active ZITHROMAX 1 GM PACK DIRECTED ZITHROMAX 1 GM PACK 803593 AZITHROMYCIN Inactive SYNTHROID 0.025 MG TAB 1 tablet by mouth daily SYNTHROID 0.025 MG TAB 755328 LEVOTHYROXINE SODIUM Inactive LIOTHYRONINE SODIUM 50 MCG TABS take 1 tab po qday for hypothyroidism LIOTHYRONINE SODIUM 50 MCG TABS 502618 LIOTHYRONINE SODIUM Inactive LEVOTHYROXINE SODIUM 200 MCG TABS 1 TAB PO DAILY LEVOTHYROXINE SODIUM 200 MCG TABS 757738 LEVOTHYROXINE SODIUM Inactive CHANTIX STARTING MONTH ELVIS [...] po q day AZITHROMYCIN 500 MG SOLR 78568632411 AZITHROMYCIN Inactive PREDNISONE 20 MG TAB 2 tablets today, then 1 tablet by mouth days 2-5 PREDNISONE 20 MG TAB 684058 PREDNISONE Inactive TORSEMIDE 20 MG TABS 1 TAB PO BID TORSEMIDE 20 MG TABS 744998 TORSEMIDE Inactive ALBUTEROL SULFATE (2.5 MG/3ML) 0.083% NEBU nebulize 1 vial q 4-6 hours prn shortness of breath ALBUTEROL SULFATE (2.5 MG/3ML) 0.083% NEBU 657275 ALBUTEROL SULFATE Inactive LEVAQUIN 500 MG TAB 1 tablet by mouth daily LEVAQUIN 500 MG TAB 317570 LEVOFLOXACIN Inactive PREDNISONE 20 MG TAB 2 tabs daily for 4 days, 1 tab daily for 4 days, 1/2 tab daily for 4 days PREDNISONE 20 MG TAB 915362 PREDNISONE Inactive ZITHROMAX 1 GM ORAL PACK DIRECTED ZITHROMAX 1 GM ORAL PACK 641144 AZITHROMYCIN Inactive LEVAQUIN 500 MG TAB 1 tablet by mouth daily for 10 days. LEVAQUIN 500 MG TAB 713567 LEVOFLOXACIN Inactive PREDNISONE 20 MG ORAL TABS 3 TABS PO FOR 3 DAYS,THAN 2 TABS FOR 3 DAYS THAN, 1 TAB FOR 3 DAYS THAN, 1/2 TAB FOR 3 DAYS. PREDNISONE 20 MG ORAL TABS 425581 PREDNISONE Inactive PREDNISONE 20 MG ORAL TABS 3 daily for 3 days than, 2 tabs daily for 3 days than, 2 tabs daily for 3 days than, 1 tab daily for 3 days than 1/2 tab daily for 3 days. PREDNISONE 20 MG ORAL TABS 224648 PREDNISONE Inactive AMOXICILLIN 500 MG ORAL TABS Take one by mouth 3 times daily, morning, afternoon and evening.] AMOXICILLIN 500 MG ORAL TABS 834984 AMOXICILLIN Inactive LEVAQUIN 500 MG TAB 1 tablet by mouth daily LEVAQUIN 500 MG TAB 714145 LEVOFLOXACIN Inactive LEVAQUIN 500 MG TAB 1 tablet by mouth daily LEVAQUIN 500 MG TAB 096600 LEVOFLOXACIN Inactive PREDNISONE 20 MG ORAL TABS 3 tabs po for 3 days than,2 tabs po for 3 days,1 tab po for 3 days, 1/2 tab po for 3 days. PREDNISONE 20 MG ORAL TABS 730338 PREDNISONE Inactive ZITHROMAX 250 MG TAB 2 po today, then 1 po q days 2-5 ZITHROMAX 250 MG TAB 6457457 AZITHROMYCIN Inactive PREDNISONE 20 MG TAB 2 tabs daily for 3 days, 1 tab daily for 3 days, 1/2 tab daily for 2 days PREDNISONE 20 MG TAB 939773 PREDNISONE Inactive KEFLEX 500 MG CAP 1 po TID x 7 days KEFLEX 500 MG CAP 737809 CEPHALEXIN Inactive LEVOFLOXACIN 500 MG ORAL TABS take 1 tab po qday LEVOFLOXACIN 500 MG ORAL TABS 946545 LEVOFLOXACIN Inactive PREDNISONE 20 MG TAB 2 tabs daily for 3 days, 1 tab daily for 3 days, 1/2 tab daily for 2 days PREDNISONE 20 MG TAB 667182 PREDNISONE Inactive DOXYCYCLINE HYCLATE 100 MG CAP 1 cap by mouth twice daily DOXYCYCLINE HYCLATE 100 MG CAP 5023272 DOXYCYCLINE HYCLATE Inactive PREDNISONE 20 MG TAB take 3 tabs daily for 3 days, 2 tabs daily for 3 days, 1 tab daily for 3 days, 1/2 tab daily for 3 days PREDNISONE 20 MG TAB 599313 PREDNISONE Inactive PREDNISONE 20 MG TAB take 3 tabs daily for 3 days, 2 tabs daily for 3 days, 1 tab daily for 3 days, 1/2 tab daily for 3 days PREDNISONE 20 MG TAB 152268 PREDNISONE Inactive PREDNISONE 20 MG TAB take 3 tabs daily for 3 days, 2 tabs daily for 3 days, 1 tab daily for 3 days, 1/2 tab daily for 3 days PREDNISONE 20 MG TAB 793089 PREDNISONE Inactive Advance Directives Directive Description Start [...] Peptide - Chemistry sodium, serum 140 mmol/L 495-412 8027/02/09 carbon dioxide, venous blood 39.2 mmol/L 21.0-32.0 [...] 43.52 m[iU]/mL 0.36-3.74 sodium, serum 140 mmol/L 230-078 6692/04/06 carbon dioxide, venous blood 36.3 mmol/L 21.0-32.0 potassium, serum 4.9 mmol/L 3.5-5.2 chloride, serum 100 mmol/L 98-107 blood glucose 62 mg/dL 65-110 urea nitrogen, blood 24 mg/dL 7-18 creatinine, serum 1.09 mg/dL 0.55-1.30 alanine aminotransferase (SGPT), serum 44 U/L 12-78 aspartate aminotransferase (SGOT), serum 25 U/L 15-37 calcium, serum 8.7 mg/dL 8.5-10.1 bilirubin, serum, total 0.50 mg/dL 0.00-1.00 cholesterol, serum 189 mg/dL 004-421 8267/04/06 triglyceride, serum, fasting 117 mg/dL 30-200 HDL [...] 142-424 Encounters Code Encounter Date Provider Facility CPT-50967 Level 4 Est. Patient 17:54:41 RENEWABLE ENERGY TECHNICIAN Austin Albarado MD [facility]-72496 Level 4 Est. Patient 16:11:14 RENEWABLE ENERGY TECHNICIAN Austin Albarado MD [facility]-67162 Level 4 Est. Patient 23:08:56 CDT Austin Albarado MD [facility]-50439 Level 4 Est. Patient 13:27:28 CDT Garcia Stroud MD [facility]-70237 Level 4 Est. Patient 10:51:20 CDT Austin Albarado MD [facility]-35643 Level 4 Est. Patient 20:09:43 RENEWABLE ENERGY TECHNICIAN Austin Albarado MD [facility]-81835 Level 4 Est. Patient 21:00:28 CDT Austin Albarado MD [facility] CPT-53031 Level 4 Est. Patient 10:03:37 CDT Austin Albarado MD [facility] CPT-80273 Level 3 Est. Patient 10:50:28 RENEWABLE ENERGY TECHNICIAN Austin Albarado MD [facility] CPT-18034 Level 4 Est. Patient 21:31:41 RENEWABLE ENERGY TECHNICIAN Austin Albaardo MD [facility] CPT-55295 Level 3 Est. Patient 16:22:54 RENEWABLE ENERGY TECHNICIAN Jann Law DO [facility] CPT-89413 Level 3 Est. Patient 11:04:53 RENEWABLE ENERGY TECHNICIAN Tristan Vaughn MD [facility] CPT-39802 Level 4 Est. Patient 09:50:59 CDT Austin Albarado MD [facility] CPT-70308 Level 4 Est. Patient 09:29:00 CDT Austin Albarado MD [facility]-16202 Level 4 Est. Patient 14:23:07 CDT Austin Albarado MD [facility] CPT-31970 Level 4 Est. Patient 14:27:26 CDT Austin Albarado MD [facility] CPT-01221 Level 4 Est. Patient 12:51:43 RENEWABLE ENERGY TECHNICIAN Austin Albarado MD [facility] CPT-96822 Level 3 New Patient 14:17:38 RENEWABLE ENERGY TECHNICIAN Austin Albarado MD [facility] CPT-93030 Level 3 New Patient 11:28:18 RENEWABLE ENERGY TECHNICIAN Austin Albarado MD [facility] Procedures Code Procedure Name Date Entry Date Standard Description CPT-TCMM Transitional Care Mgmt-Moderate 14:53:36 RENEWABLE ENERGY TECHNICIAN CPT-26637 No Charge Offi Visit 10:19:33 RENEWABLE ENERGY TECHNICIAN CPT-89474 Chest 2V Frontal and Lat - XRAY USE ONLY 15:01:41 RENEWABLE ENERGY TECHNICIAN CPT-69717 First Vx - Ix admin for Medicare patients 16:00:49 CDT CPT-82378 Fluzone High-Dose Intramuscular Suspension 16:00:49 CDT CPT-G0009 Administration of Pneumococcal Vaccine 13:25:27 CDT CPT-99960 Prevnar 13 Intramuscular Suspension 13:25:27 CDT 09/26 CPT-G0438 Initial Annual Wellness Exam 11:28:26 CDT CPT-10979 Chest 2V Frontal and Lat 15:00:00 RENEWABLE ENERGY TECHNICIAN CPT-10470 Breathing Tx 14:49:25 RENEWABLE ENERGY TECHNICIAN CPT-09510 Fluzone High Dose 15:08:41 RENEWABLE ENERGY TECHNICIAN CPT-24734 Immunization Single Admin 15:08:41 RENEWABLE ENERGY TECHNICIAN CPT-41717 Fluzone High Dose 17:31:19 CDT CPT-91098 Administration single or combination vaccine inc oral 17 :31:19 CDT CPT-10933 Venipuncture Draw Fee 11:03:05 CDT CPT-TCMM Transitional Care Mgmt-Moderate 16:32:35 CDT CPT-80769 Chest 2V Frontal and Lat 11:51:09 CDT CPT-G0008 Administration of Influenza Virus Vaccine 15:09:08 CDT CPT-71657 Fluzone High-Dose Intramuscular Suspension 15:09:08 CDT CPT-14714 Administration single or combination vaccine inc oral 17 :07:02 RENEWABLE ENERGY TECHNICIAN CPT-42179 Influenza High Dose age 65+ 17:07:02 RENEWABLE ENERGY TECHNICIAN
--- OUTSIDE RECORDS SUMMARY | 2017-02-27 22:00 | XMS REPORT | Clinical Summary ---
Author Author Admin, LEE Organization [facility] Address Unknown Phone Unavailable Allergies, Adverse [...] by mouth daily for 10 days. LEVOFLOXACIN 71344757207 Active Simona Galloway APRN Active PREDNISONE 20 MG TAB take 3 tabs daily for 3 days, 2 tabs daily for 3 days, 1 tab daily for 3 days, 1/2 tab daily for 3 days PREDNISONE 32124753644 No Longer Active Simona Galloway APRN Active ZITHROMAX 1 GM ORAL PACK DIRECTED AZITHROMYCIN 72694871685 No Longer Active Simona Galloway APRN Active PREDNISONE 20 MG ORAL TABS 3 TABS PO FOR 3 DAYS,THAN 2 TABS FOR 3 DAYS THAN, 1 TAB FOR 3 DAYS THAN, 1/2 TAB FOR 3 DAYS. PREDNISONE 62400962920 Active Madhavi Fiore Active PREDNISONE 20 MG TAB 2 tabs daily for 4 days, 1 tab daily for 4 days, 1/2 tab daily for 4 days PREDNISONE 30047530005 No Longer Active Austin Albarado MD Active LEVAQUIN 500 MG TAB 1 tablet by mouth daily LEVOFLOXACIN 95434694380 No Longer Active Austin Albarado MD Active PREDNISONE 20 MG TAB take 3 tabs daily for 3 days, 2 tabs daily for 3 days, 1 tab daily for 3 days, 1/2 tab daily for 3 days PREDNISONE 12330498351 No Longer Active Austin Albarado MD Active DOXYCYCLINE HYCLATE 100 MG CAP 1 cap by mouth twice daily DOXYCYCLINE HYCLATE 48294215533 No Longer Active Esperanza Modi YARN DYER Active ALBUTEROL SULFATE (2.5 MG/3ML) 0.083% NEBU nebulize 1 vial q 4-6 hours prn shortness of breath ALBUTEROL SULFATE 45195306853 No Longer Active Joshllaftab Modi YARN DYER Active TORSEMIDE 20 MG TABS 1 TAB PO BID TORSEMIDE 06937199684 No Longer Active Jillina Frashonnal YARN DYER Active PREDNISONE 20 MG TAB 2 tabs daily for 3 days, 1 tab daily for 3 days, 1/2 tab daily for 2 days PREDNISONE 15376498385 No Longer Active Austin Albarado MD Active LEVOFLOXACIN 500 MG ORAL TABS take 1 tab po qday LEVOFLOXACIN 79235990969 No Longer Active Austin Albarado MD Active PREDNISONE 20 MG TAB 2 tablets today, then 1 tablet by mouth days 2-5 PREDNISONE 37604992272 No Longer Active Austin Albarado MD Active AZITHROMYCIN 500 MG SOLR 1 po q day AZITHROMYCIN 60407178387 No Longer Active Austin Albarado MD Active KEFLEX 500 MG CAP 1 po TID x 7 days CEPHALEXIN 92197599172 No Longer Active Tristan Vaughn MD Active EQL VISION FORMULA TABS 1 TAB PO DAILY MULTIPLE VITAMINS-MINERALS 53474705611 No Longer Active Tristan Vaughn MD Active CHANTIX STARTING MONTH ELVIS 0.5 MG X 11 & 1 MG X 42 TABS 0.5mg daily for 3 days , then 0.5mg BID for 4 days, then 1mg BID VARENICLINE TARTRATE 46609809128 No Longer Active Tristan Vaughn MD Active LEVOTHYROXINE SODIUM 200 MCG TABS 1 TAB PO DAILY LEVOTHYROXINE SODIUM 55785019584 No Longer Active Tristan Vaughn MD Active LIOTHYRONINE SODIUM 50 MCG TABS take 1 tab po qday for hypothyroidism LIOTHYRONINE SODIUM 77662880426 No Longer Active Austin Albarado MD Active SYNTHROID 0.025 MG TAB 1 tablet by mouth daily LEVOTHYROXINE SODIUM 56714735069 No Longer Active Austin Albarado MD Active ARMOUR THYROID 120 MG TABS take 1 tab po qday for hypothyroidism THYROID 51035769152 Active Austin Albarado MD Active FLONASE 50 MCG/ACT SUSP 1 spray each nostril am and hs FLUTICASONE PROPIONATE 77264113406 Active Austin Albarado MD Active ZITHROMAX 1 GM PACK DIRECTED AZITHROMYCIN 16310191759 No Longer Active Austin Albarado MD Active PREDNISONE 20 MG TAB 2 tabs daily for 3 days, 1 tab daily for 3 days, 1/2 tab daily for 2 days PREDNISONE 20073706187 No Longer Active Austin Albarado MD Active ZITHROMAX 250 MG TAB 2 po today, then 1 po q days 2-5 AZITHROMYCIN 42381694566 No Longer Active Austin Albarado MD Active NYSTATIN-TRIAMCINOLONE 157180-7.1 UNIT/GM-% OINT Apply to affected area TID NYSTATIN-TRIAMCINOLONE 52856324614 Active Austin Albarado MD Active IPRATROPIUM-ALBUTEROL 0.5-2.5 (3) MG/3ML SOLN 1 VIAL NEB Q 6 HRS PRN IPRATROPIUM-ALBUTEROL 27715990926 Active Austin Albarado MD Active PROAIR HFA 108 (90 BASE) MCG/ACT AERS take 1-2 puffs q4hrs prn cough/ SOB ALBUTEROL SULFATE 77493396212 Active Austin Albarado MD Active ADVAIR DISKUS 500-50 MCG/DOSE AEPB ONE INH BID FLUTICASONE- SALMETEROL 92786107667 Active Austin Albarado MD Active ZITHROMAX 1 GM PACK DIRECTED ZITHROMAX 1 GM PACK 641588 AZITHROMYCIN Inactive SYNTHROID 0.025 MG TAB 1 tablet by mouth daily SYNTHROID 0.025 MG TAB 612905 LEVOTHYROXINE SODIUM Inactive LIOTHYRONINE SODIUM 50 MCG TABS take 1 tab po qday for hypothyroidism LIOTHYRONINE SODIUM 50 MCG TABS 663088 LIOTHYRONINE SODIUM Inactive LEVOTHYROXINE SODIUM 200 MCG TABS 1 TAB PO DAILY LEVOTHYROXINE SODIUM 200 MCG TABS 301835 LEVOTHYROXINE SODIUM Inactive CHANTIX STARTING MONTH ELVIS [...] po q day AZITHROMYCIN 500 MG SOLR 364001 AZITHROMYCIN Inactive PREDNISONE 20 MG TAB 2 tablets today, then 1 tablet by mouth days 2-5 PREDNISONE 20 MG TAB 081305 PREDNISONE Inactive TORSEMIDE 20 MG TABS 1 TAB PO BID TORSEMIDE 20 MG TABS 603857 TORSEMIDE Inactive ALBUTEROL SULFATE (2.5 MG/3ML) 0.083% NEBU nebulize 1 vial q 4-6 hours prn shortness of breath ALBUTEROL SULFATE (2.5 MG/3ML) 0.083% NEBU 424538 ALBUTEROL SULFATE Inactive LEVAQUIN 500 MG TAB 1 tablet by mouth daily LEVAQUIN 500 MG TAB 959153 LEVOFLOXACIN Inactive PREDNISONE 20 MG TAB 2 tabs daily for 4 days, 1 tab daily for 4 days, 1/2 tab daily for 4 days PREDNISONE 20 MG TAB 533995 PREDNISONE Inactive ZITHROMAX 1 GM ORAL PACK DIRECTED ZITHROMAX 1 GM ORAL PACK 673824 AZITHROMYCIN Inactive ZITHROMAX 250 MG TAB 2 po today, then 1 po q days 2-5 ZITHROMAX 250 MG TAB 6400436 AZITHROMYCIN Inactive PREDNISONE 20 MG TAB 2 tabs daily for 3 days, 1 tab daily for 3 days, 1/2 tab daily for 2 days PREDNISONE 20 MG TAB 341913 PREDNISONE Inactive KEFLEX 500 MG CAP 1 po TID x 7 days KEFLEX 500 MG CAP 505791 CEPHALEXIN Inactive LEVOFLOXACIN 500 MG ORAL TABS take 1 tab po qday LEVOFLOXACIN 500 MG ORAL TABS 191286 LEVOFLOXACIN Inactive PREDNISONE 20 MG TAB 2 tabs daily for 3 days, 1 tab daily for 3 days, 1/2 tab daily for 2 days PREDNISONE 20 MG TAB 351330 PREDNISONE Inactive DOXYCYCLINE HYCLATE 100 MG CAP 1 cap by mouth twice daily DOXYCYCLINE HYCLATE 100 MG CAP 0603474 DOXYCYCLINE HYCLATE Inactive PREDNISONE 20 MG TAB take 3 tabs daily for 3 days, 2 tabs daily for 3 days, 1 tab daily for 3 days, 1/2 tab daily for 3 days PREDNISONE 20 MG TAB 966052 PREDNISONE Inactive PREDNISONE 20 MG TAB take 3 tabs daily for 3 days, 2 tabs daily for 3 days, 1 tab daily for 3 days, 1/2 tab daily for 3 days PREDNISONE 20 MG TAB 868733 PREDNISONE Inactive Advance Directives Directive Description Start [...] ... - Chemistry sodium, serum 140 mmol/L 127-912 6050/03/09 potassium, serum 4.9 mmol/L 3.5-5.2 chloride, serum [...] ... - Chemistry cholesterol, serum 136 mg/dL 611-601 3765/10/06 triglyceride, serum, fasting 30 mg/dL 30-200 HDL cholesterol, serum 57 mg/dL 32-96 LDL cholesterol, serum 73 mg/dL 0-130 prostate specific antigen 1.45 ng/mL 0.00-4.00 thyroxine, serum, free 0.80 ng/dL 0.76-1.46 TSH 14.03 m[iU]/mL 0.36-3.74 Encounters Code Encounter Date Provider Facility CPT-97435 Level 4 Est. Patient 21:00:28 CDT Austin Albarado MD [facility] CPT-75276 Level 4 Est. Patient 10:03:37 CDT Austin Albarado MD [facility] CPT-99800 Level 3 Est. Patient 10:50:28 ORNAMENTAL METALWORK DESIGNER Austin Albarado MD [facility] CPT-31071 Level 4 Est. Patient 21:31:41 ORNAMENTAL METALWORK DESIGNER Austin Albarado MD [facility] CPT-78543 Level 3 Est. Patient 16:22:54 ORNAMENTAL METALWORK DESIGNER Jann Law DO [facility] CPT-58906 Level 3 Est. Patient 11:04:53 ORNAMENTAL METALWORK DESIGNER Tristan Vaughn MD [facility] CPT-36501 Level 4 Est. Patient 09:50:59 CDT Austin Albarado MD [facility] CPT-99983 Level 4 Est. Patient 09:29:00 CDT Austin Albarado MD [facility] CPT-87384 Level 4 Est. Patient 14:23:07 CDT Austin Albarado MD [facility] CPT-55049 Level 4 Est. Patient 14:27:26 CDT Austin Albarado MD [facility] CPT-27053 Level 4 Est. Patient 12:51:43 ORNAMENTAL METALWORK DESIGNER Austin Albarado MD [facility] CPT-16278 Level 3 New Patient 14:17:38 ORNAMENTAL METALWORK DESIGNER Austin Albarado MD [facility] CPT-77853 Level 3 New Patient 11:28:18 ORNAMENTAL METALWORK DESIGNER Austin Albarado MD [facility] Procedures Code Procedure Name Date Entry Date Standard Description CPT-65162 Chest 2V Frontal and Lat 15:00:00 ORNAMENTAL METALWORK DESIGNER CPT-32910 Breathing Tx 14:49:25 ORNAMENTAL METALWORK DESIGNER CPT-51876 Fluzone High Dose 15:08:41 ORNAMENTAL METALWORK DESIGNER CPT-47794 Immunization Single Admin 15:08:41 ORNAMENTAL METALWORK DESIGNER CPT-64241 Fluzone High Dose 17:31:19 CDT CPT-11739 Administration single or combination vaccine inc oral 17 :31:19 CDT CPT-67889 Venipuncture Draw Fee 11:03:05 CDT CPT-TCMM Transitional Care Mgmt-Moderate 16:32:35 CDT CPT-65678 Chest 2V Frontal and Lat 11:51:09 CDT CPT-G0008 Administration of Influenza Virus Vaccine 15:09:08 CDT CPT-19271 Fluzone High-Dose Intramuscular Suspension 15:09:08 CDT CPT-50407 Administration single or combination vaccine inc oral 17 :07:02 ORNAMENTAL METALWORK DESIGNER CPT-28997 Influenza High Dose age 65+ 17:07:02 ORNAMENTAL METALWORK DESIGNER
--- OUTSIDE RECORDS SUMMARY | 2017-02-27 22:01 | XMS REPORT | Clinical Summary ---
Author Author Admin, LEE Organization [facility] Address Unknown Phone Unavailable Allergies, Adverse [...] 466.0 Inactive Austin Albarado MD Acute bronchitis U R I ICD-465.9 Inactive Austin Albarado MD 06/13 Bronchitis-Acute ICD-466.0 Inactive Austin Albarado MD Medication List Medication Instructions Start Date Stop Date Generic Name NDC Status Provider Patient Instruction PREDNISONE 20 MG TAB 2 tabs daily for 4 days, 1 tab daily for 4 days, 1/2 tab daily for 4 days PREDNISONE 69669520312 Active 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 MINI SHIFTER Active DOXYCYCLINE HYCLATE 100 MG CAP 1 cap by mouth twice daily DOXYCYCLINE HYCLATE 49503700396 No Longer Active 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 MINI SHIFTER Active ALBUTEROL SULFATE (2.5 MG/3ML) 0.083% NEBU nebulize 1 vial q 4-6 hours prn shortness of breath ALBUTEROL SULFATE 25329443262 No Longer Active 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 MINI SHIFTER Active TORSEMIDE 20 MG TABS 1 TAB PO BID TORSEMIDE 46974605030 No Longer Active 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 MINI SHIFTER Active PREDNISONE 20 MG TAB 2 tabs daily for 3 days, 1 tab daily for 3 days, 1/2 tab daily for 2 days PREDNISONE 23749518890 No Longer Active Austin Albarado MD Active LEVOFLOXACIN 500 MG ORAL TABS take 1 tab po qday LEVOFLOXACIN 27903021102 No Longer Active Austin Albarado MD Active PREDNISONE 20 MG TAB 2 tablets today, then 1 tablet by mouth days 2-5 PREDNISONE 35932350016 No Longer Active Austin Albarado MD Active AZITHROMYCIN 500 MG SOLR 1 po q day AZITHROMYCIN 30881540453 No Longer Active Austin Albarado MD Active KEFLEX 500 MG CAP 1 po TID x 7 days CEPHALEXIN 09400210129 No Longer Active Tristan Vaughn MD Active EQL VISION FORMULA TABS 1 TAB PO DAILY MULTIPLE VITAMINS-MINERALS 16430894764 No Longer Active Tristan Vaughn MD Active CHANTIX STARTING MONTH ELVIS 0.5 MG X 11 & 1 MG X 42 TABS 0.5mg daily for 3 days , then 0.5mg BID for 4 days, then 1mg BID VARENICLINE TARTRATE 35786240999 No Longer Active Tristan Vaughn MD Active LEVOTHYROXINE SODIUM 200 MCG TABS 1 TAB PO DAILY LEVOTHYROXINE SODIUM 25767561070 No Longer Active Tristan Vaughn MD Active LIOTHYRONINE SODIUM 50 MCG TABS take 1 tab po qday for hypothyroidism LIOTHYRONINE SODIUM 79944650788 No Longer Active Austin Albarado MD Active SYNTHROID 0.025 MG TAB 1 tablet by mouth daily LEVOTHYROXINE SODIUM 91104264031 No Longer Active Austin Albarado MD Active ARMOUR THYROID 120 MG TABS take 1 tab po qday for hypothyroidism THYROID 01546444808 Active Austin Albarado MD Active FLONASE 50 MCG/ACT SUSP 1 spray each nostril am and hs FLUTICASONE PROPIONATE 04545003131 Active Austin Albarado MD Active ZITHROMAX 1 GM PACK DIRECTED AZITHROMYCIN 49298651288 No Longer Active Austin Albarado MD Active PREDNISONE 20 MG TAB 2 tabs daily for 3 days, 1 tab daily for 3 days, 1/2 tab daily for 2 days PREDNISONE 36886555613 No Longer Active Austin Albarado MD Active ZITHROMAX 250 MG TAB 2 po today, then 1 po q days 2-5 AZITHROMYCIN 78605668845 No Longer Active Austin Albarado MD Active NYSTATIN-TRIAMCINOLONE 090239-9.1 UNIT/GM-% OINT Apply to affected area TID NYSTATIN-TRIAMCINOLONE 06262053360 Active Austin Albarado MD Active IPRATROPIUM-ALBUTEROL 0.5-2.5 (3) MG/3ML SOLN 1 VIAL NEB Q 6 HRS PRN IPRATROPIUM-ALBUTEROL 13667081274 Active Austin Albarado MD Active PROAIR HFA 108 (90 BASE) MCG/ACT AERS take 1-2 puffs q4hrs prn cough/ SOB ALBUTEROL SULFATE 81117925462 Active Austin Albarado MD Active ADVAIR DISKUS 500-50 MCG/DOSE AEPB ONE INH BID FLUTICASONE- SALMETEROL 24885649512 Active Austin Albarado MD Active ZITHROMAX 1 GM PACK DIRECTED ZITHROMAX 1 GM PACK 092694 AZITHROMYCIN Inactive SYNTHROID 0.025 MG TAB 1 tablet by mouth daily SYNTHROID 0.025 MG TAB 759692 LEVOTHYROXINE SODIUM Inactive LIOTHYRONINE SODIUM 50 MCG TABS take 1 tab po qday for hypothyroidism LIOTHYRONINE SODIUM 50 MCG TABS 819273 LIOTHYRONINE SODIUM Inactive LEVOTHYROXINE SODIUM 200 MCG TABS 1 TAB PO DAILY LEVOTHYROXINE SODIUM 200 MCG TABS 152221 LEVOTHYROXINE SODIUM Inactive CHANTIX STARTING MONTH ELVIS [...] po q day AZITHROMYCIN 500 MG SOLR 642201 AZITHROMYCIN Inactive PREDNISONE 20 MG TAB 2 tablets today, then 1 tablet by mouth days 2-5 PREDNISONE 20 MG TAB 420763 PREDNISONE Inactive TORSEMIDE 20 MG TABS 1 TAB PO BID TORSEMIDE 20 MG TABS 097828 TORSEMIDE Inactive ALBUTEROL SULFATE (2.5 MG/3ML) 0.083% NEBU nebulize 1 vial q 4-6 hours prn shortness of breath ALBUTEROL SULFATE (2.5 MG/3ML) 0.083% NEBU 430418 ALBUTEROL SULFATE Inactive ZITHROMAX 250 MG TAB 2 po today, then 1 po q days 2-5 ZITHROMAX 250 MG TAB 7022410 AZITHROMYCIN Inactive PREDNISONE 20 MG TAB 2 tabs daily for 3 days, 1 tab daily for 3 days, 1/2 tab daily for 2 days PREDNISONE 20 MG TAB 951162 PREDNISONE Inactive KEFLEX 500 MG CAP 1 po TID x 7 days KEFLEX 500 MG CAP 368705 CEPHALEXIN Inactive LEVOFLOXACIN 500 MG ORAL TABS take 1 tab po qday LEVOFLOXACIN 500 MG ORAL TABS 900117 LEVOFLOXACIN Inactive PREDNISONE 20 MG TAB 2 tabs daily for 3 days, 1 tab daily for 3 days, 1/2 tab daily for 2 days PREDNISONE 20 MG TAB 611648 PREDNISONE Inactive DOXYCYCLINE HYCLATE 100 MG CAP 1 cap by mouth twice daily DOXYCYCLINE HYCLATE 100 MG CAP 590120 DOXYCYCLINE HYCLATE Inactive Advance Directives Directive Description Start Date PERMISSION TO SHARE Immunizations Vaccine Administration Date Value Standard Description pneumococcal immunization administered Pneumovax 23 [CVX33] pneumococcal polysaccharide vaccine, 23 valent Vital Signs Date Name Value Unit Range Description blood pressure, diastolic - 8462-4 102 mm[Hg] [...] E&M - 3141-9 234 [lb_av] Weight Measured blood pressure, diastolic - 8462-4 78 mm[Hg] BP fernandes blood pressure, systolic - 8480-6 132 mm[Hg] BP sys pulse rate E&M - 8867-4 116 /min Heart rate temperature E&M 96.5 [degF] Body temperature weight E&M - 3141-9 237 [lb_av] Weight Measured blood pressure, diastolic - 8462-4 74 mm[Hg] BP fernandes blood pressure, systolic - 8480-6 129 mm[Hg] BP sys pulse rate E&M - 8867-4 102 /min Heart rate temperature E&M 97.3 [degF] Body temperature weight E&M - 3141-9 243 [lb_av] Weight Measured blood pressure, diastolic - 8462-4 71 mm[Hg] BP fernandes blood pressure, systolic - 8480-6 118 mm[Hg] BP sys pulse rate E&M - 8867-4 121 /min Heart rate temperature E&M 98.5 [degF] Body temperature weight E&M - 3141-9 247 [lb_av] Weight Measured blood pressure, diastolic - 8462-4 80 mm[Hg] BP fernandes blood pressure, systolic - 8480-6 110 mm[Hg] BP sys height E&M - 8302-2 68 [in_us] Bdy height pulse rate E&M - 8867-4 111 /min Heart rate temperature E&M 98.2 [degF] Body temperature weight E&M - 3141-9 260 [lb_av] Weight Measured blood pressure, diastolic - 8462-4 69 mm[Hg] BP fernandes blood pressure, systolic - 8480-6 122 mm[Hg] BP sys height E&M - 8302-2 68 [in_us] Bdy height pulse rate E&M - 8867-4 112 /min Heart rate temperature E&M 97.5 [degF] Body temperature weight E&M - 3141-9 257 [lb_av] Weight Measured Diagnostic Results Date Name Value Unit Range Description Lab Report: CBC W/DIFF, Comp. Metabolic Panel, B-Type Natriuretic Peptid ... - Chemistry sodium, serum 140 mmol/L 572-746 9118/03/09 potassium, serum 4.9 mmol/L 3.5-5.2 chloride, serum [...] count 347 10^3/MM^3 10*3/mm3 142-424 Lab Report: Comp. Metabolic Panel, Lipid Panel, Thyroid Stimulating Horm ... - Chemistry sodium, serum 140 mmol/L 174-465 9866/04/03 potassium, serum 4.9 mmol/L 3.5-5.2 chloride, serum 102 mmol/L 98-107 carbon dioxide, venous blood 29.0 mmol/L 21.0-32.0 blood glucose 94 mg/dL 65-110 urea nitrogen, blood 15 mg/dL 7-18 creatinine, serum 1.10 mg/dL 0.60-1.30 alanine aminotransferase (SGPT), serum 36 U/L 12-78 aspartate aminotransferase (SGOT), serum 34 U/L 15-37 alkaline phosphatase, serum 108 U/L 50-136 calcium, serum 8.5 mg/dL 8.5-10.1 bilirubin, serum, total 0.60 mg/dL 0.00-1.00 cholesterol, serum 163 mg/dL 297-767 3856/04/03 triglyceride, serum, fasting 50 mg/dL 30-200 HDL cholesterol, serum 45 mg/dL 32-96 LDL cholesterol, serum 108 mg/dL 0-130 TSH 140.68 m[iU]/mL 0.36-3.74 thyroxine, serum, free 0.53 ng/dL 0.76-1.46 Lab Report: Comp. Metabolic Panel, Lipid Panel, Thyroid Stimulating Horm ... - Hematology leukocyte count, blood 10.6 10^3/MM^3 10*3/mm3 4.6-10.2 erythrocyte (RBC) count 5.76 10^6/MM^3 10*6/mm3 4.69-6.13 hemoglobin, blood 19.4 g/dL 13.5-17.5 hematocrit, blood 57.6 % 41.0-53.0 mean corpuscular volume, RBC 100 fL 80-97 mean corpuscular hemoglobin, RBC 33.8 pg 27.0-31.2 mean corpuscular hemoglobin concentration, RBC 33.8 G/DL % 31.8- 35.4 red blood cell distribution width 12.6 % 11.6-14.8 platelet count 295 10^3/MM^3 10*3/mm3 142-424 Lab Report: Free Thyroxine (L), Thyroid Stimulating Hormone (L) - Chemistry thyroxine, serum, free 0.89 ng/dL 0.76-1.46 TSH 4.00 m[iU]/mL 0.36-3.74 Encounters Code Encounter Date Provider Facility CPT-60966 Level 3 Est. Patient 10:50:28 BOBBIN FIXER Austin Albarado MD [facility] CPT-54286 Level 4 Est. Patient 21:31:41 BOBBIN FIXER Austin Albarado MD [facility] CPT-75410 Level 3 Est. Patient 16:22:54 BOBBIN FIXER Jann Law DO [facility] CPT-24632 Level 3 Est. Patient 11:04:53 BOBBIN FIXER Tristan Vaughn MD [facility] CPT-39437 Level 4 Est. Patient 09:50:59 CDT Austin Albarado MD [facility] CPT-88888 Level 4 Est. Patient 09:29:00 CDT Austin Albarado MD [facility] CPT-03263 Level 4 Est. Patient 14:23:07 CDT Austin Albarado MD [facility] CPT-69900 Level 4 Est. Patient 14:27:26 CDT Austin Albarado MD [facility] CPT-59356 Level 4 Est. Patient 12:51:43 BOBBIN FIXER Austin Albarado MD [facility] CPT-65741 Level 3 New Patient 14:17:38 BOBBIN FIXER Austin Albarado MD [facility] CPT-19753 Level 3 New Patient 11:28:18 BOBBIN FIXER Austin Albarado MD [facility] Procedures Code Procedure Name Date Entry Date Standard Description CPT-35540 Chest 2V Frontal and Lat 11:51:09 CDT CPT-G0008 Administration of Influenza Virus Vaccine 15:09:08 CDT CPT-66640 Fluzone High-Dose Intramuscular Suspension 15:09:08 CDT CPT-25702 Administration single or combination vaccine inc oral 17 :07:02 BOBBIN FIXER CPT-80282 Influenza High Dose age 65+ 17:07:02 BOBBIN FIXER
--- OUTSIDE RECORDS SUMMARY | 2017-02-27 22:01 | XMS REPORT | Clinical Summary ---
Author Author Admin, DILLONE Organization [email or web address] Address Unknown Phone Unavailable Allergies, Adverse Reactions, [...] Coronary atherosclerosis of unspecified type of vessel, [place] or graft Peripheral edema 782.3 Active Austin Albarado MD Edema Shortness of breath 786.05 Active Simona Galloway APRN Shortness of breath Hypotension 458.9 Active Simona Galloway APRN Hypotension, unspecified U R I ICD-465.9 Inactive Austin Albarado MD 06/13 Bronchitis-Acute ICD-466.0 Inactive Austin Albarado MD Medication List Medication Instructions Start Date Stop Date Generic Name NDC Status Provider Patient Instruction PREDNISONE 20 MG ORAL TABS 3 tabs po for 3 days than,2 tabs po for 3 days,1 tab po for 3 days, 1/2 tab po for 3 days. PREDNISONE 07681731228 No Longer Active Simona Galloway APRN Active LEVAQUIN 500 MG TAB 1 tablet by mouth daily LEVOFLOXACIN 65342987636 No Longer Active Simona Galloway APRN Active PREDNISONE 20 MG TAB take 3 tabs daily for 3 days, 2 tabs daily for 3 days, 1 tab daily for 3 days, 1/2 tab daily for 3 days PREDNISONE 86583378593 No Longer Active Austin Albarado MD Active LEVAQUIN 500 MG TAB 1 tablet by mouth daily LEVOFLOXACIN 07592783340 No Longer Active Madhavi Fiore Active FUROSEMIDE 20 MG TABS take 1 tab po BID for swelling FUROSEMIDE 89632913834 Active Austin Albarado MD Active AMOXICILLIN 500 MG ORAL TABS Take one by mouth 3 times daily, morning, afternoon and evening.] AMOXICILLIN 34905891107 No Longer Active Garcia Stroud MD Active PREDNISONE 20 MG ORAL TABS 3 daily for 3 days than, 2 tabs daily for 3 days than, 2 tabs daily for 3 days than, 1 tab daily for 3 days than 1/2 tab daily for 3 days. PREDNISONE 42411847660 No Longer Active Tracie Arrington APRN Active FLUTICASONE PROPIONATE 50 MCG/ACT SUSP 1 to 2 sprays each nostril daily 08/21 FLUTICASONE PROPIONATE 86877124025 Active Simona Galloway APRN Active PREDNISONE 10 MG TAB take 1 tab po qday for severe COPD PREDNISONE 13494293324 Active Austin Albarado MD Active PREDNISONE 20 MG ORAL TABS 3 TABS PO FOR 3 DAYS,THAN 2 TABS FOR 3 DAYS THAN, 1 TAB FOR 3 DAYS THAN, 1/2 TAB FOR 3 DAYS. PREDNISONE 73506443313 No Longer Active Austin Albarado MD Active LEVAQUIN 500 MG TAB 1 tablet by mouth daily for 10 days. LEVOFLOXACIN 77128410519 No Longer Active Austin Albarado MD Active PREDNISONE 20 MG TAB take 3 tabs daily for 3 days, 2 tabs daily for 3 days, 1 tab daily for 3 days, 1/2 tab daily for 3 days PREDNISONE 12869234599 No Longer Active Simona Galloway APRN Active ZITHROMAX 1 GM ORAL PACK DIRECTED AZITHROMYCIN 82502596625 No Longer Active Simona Galloway APRN Active PREDNISONE 20 MG TAB 2 tabs daily for 4 days, 1 tab daily for 4 days, 1/2 tab daily for 4 days PREDNISONE 62278714940 No Longer Active Austin Albarado MD Active LEVAQUIN 500 MG TAB 1 tablet by mouth daily LEVOFLOXACIN 80149856288 No Longer Active Austin Albarado MD Active PREDNISONE 20 MG TAB take 3 tabs daily for 3 days, 2 tabs daily for 3 days, 1 tab daily for 3 days, 1/2 tab daily for 3 days PREDNISONE 14138409208 No Longer Active Austin Albarado MD Active DOXYCYCLINE HYCLATE 100 MG CAP 1 cap by mouth twice daily DOXYCYCLINE HYCLATE 51385775479 No Longer Active 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 DIALER Active ALBUTEROL SULFATE (2.5 MG/3ML) 0.083% NEBU nebulize 1 vial q 4-6 hours prn shortness of breath ALBUTEROL SULFATE 92486385637 No Longer Active 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 DIALER Active TORSEMIDE 20 MG TABS 1 TAB PO BID TORSEMIDE 29494660102 No Longer Active 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 DIALER Active PREDNISONE 20 MG TAB 2 tabs daily for 3 days, 1 tab daily for 3 days, 1/2 tab daily for 2 days PREDNISONE 74070532052 No Longer Active Austin Albarado MD Active LEVOFLOXACIN 500 MG ORAL TABS take 1 tab po qday LEVOFLOXACIN 24483011606 No Longer Active Austin Albarado MD Active PREDNISONE 20 MG TAB 2 tablets today, then 1 tablet by mouth days 2-5 PREDNISONE 75775085519 No Longer Active Austin Albarado MD Active AZITHROMYCIN 500 MG SOLR 1 po q day AZITHROMYCIN 68264449055 No Longer Active Austin Albarado MD Active KEFLEX 500 MG CAP 1 po TID x 7 days CEPHALEXIN 80931418519 No Longer Active Tristan Vaughn MD Active EQL VISION FORMULA TABS 1 TAB PO DAILY MULTIPLE VITAMINS-MINERALS 58163555033 No Longer Active Tristan Vaughn MD Active CHANTIX STARTING MONTH ELVIS 0.5 MG X 11 & 1 MG X 42 TABS 0.5mg daily for 3 days , then 0.5mg BID for 4 days, then 1mg BID VARENICLINE TARTRATE 03570216185 No Longer Active Tristan Vaughn MD Active LEVOTHYROXINE SODIUM 200 MCG TABS 1 TAB PO DAILY LEVOTHYROXINE SODIUM 91009345939 No Longer Active Tristan Vaughn MD Active LIOTHYRONINE SODIUM 50 MCG TABS take 1 tab po qday for hypothyroidism LIOTHYRONINE SODIUM 82785085903 No Longer Active Austin Albarado MD Active SYNTHROID 0.025 MG TAB 1 tablet by mouth daily LEVOTHYROXINE SODIUM 98255926410 No Longer Active Austin Albarado MD Active ARMOUR THYROID 120 MG TABS take 1 tab po qday for hypothyroidism THYROID 80151806138 Active Austin Albarado MD Active FLONASE 50 MCG/ACT SUSP 1 spray each nostril am and hs FLUTICASONE PROPIONATE Active Simona Galloway APRN Active ZITHROMAX 1 GM PACK DIRECTED AZITHROMYCIN 79434726397 No Longer Active Ausitn Albarado MD Active PREDNISONE 20 MG TAB 2 tabs daily for 3 days, 1 tab daily for 3 days, 1/2 tab daily for 2 days PREDNISONE 87089624801 No Longer Active Austin Albarado MD Active ZITHROMAX 250 MG TAB 2 po today, then 1 po q days 2-5 AZITHROMYCIN 32762592532 No Longer Active Austin Albarado MD Active NYSTATIN-TRIAMCINOLONE 185435-4.1 UNIT/GM-% OINT Apply to affected area TID NYSTATIN-TRIAMCINOLONE 90727882905 Active Austin Albarado MD Active IPRATROPIUM-ALBUTEROL 0.5-2.5 (3) MG/3ML SOLN 1 VIAL NEB Q 6 HRS PRN IPRATROPIUM-ALBUTEROL 81112509731 Active Simonastacie Galloway DIALER Active PROAIR HFA 108 (90 BASE) MCG/ACT AERS take 1-2 puffs q4hrs prn cough/ SOB ALBUTEROL SULFATE 37150423931 Active Austin Albarado MD Active ADVAIR DISKUS 500-50 MCG/DOSE AEPB ONE INH BID FLUTICASONE- SALMETEROL 55453853009 Active Austin Albarado MD Active ZITHROMAX 1 GM PACK DIRECTED ZITHROMAX 1 GM PACK 431170 AZITHROMYCIN Inactive SYNTHROID 0.025 MG TAB 1 tablet by mouth daily SYNTHROID 0.025 MG TAB 158386 LEVOTHYROXINE SODIUM Inactive LIOTHYRONINE SODIUM 50 MCG TABS take 1 tab po qday for hypothyroidism LIOTHYRONINE SODIUM 50 MCG TABS 214914 LIOTHYRONINE SODIUM Inactive LEVOTHYROXINE SODIUM 200 MCG TABS 1 TAB PO DAILY LEVOTHYROXINE SODIUM 200 MCG TABS 023345 LEVOTHYROXINE SODIUM Inactive CHANTIX STARTING MONTH ELVIS [...] po q day AZITHROMYCIN 500 MG SOLR 82989129368 AZITHROMYCIN Inactive PREDNISONE 20 MG TAB 2 tablets today, then 1 tablet by mouth days 2-5 PREDNISONE 20 MG TAB 362576 PREDNISONE Inactive TORSEMIDE 20 MG TABS 1 TAB PO BID TORSEMIDE 20 MG TABS 906723 TORSEMIDE Inactive ALBUTEROL SULFATE (2.5 MG/3ML) 0.083% NEBU nebulize 1 vial q 4-6 hours prn shortness of breath ALBUTEROL SULFATE (2.5 MG/3ML) 0.083% [facility] 717115 ALBUTEROL SULFATE Inactive LEVAQUIN 500 MG TAB 1 tablet by mouth daily LEVAQUIN 500 MG TAB 374253 LEVOFLOXACIN Inactive PREDNISONE 20 MG TAB 2 tabs daily for 4 days, 1 tab daily for 4 days, 1/2 tab daily for 4 days PREDNISONE 20 MG TAB 624211 PREDNISONE Inactive ZITHROMAX 1 GM ORAL PACK DIRECTED ZITHROMAX 1 GM ORAL PACK 292496 AZITHROMYCIN Inactive LEVAQUIN 500 MG TAB 1 tablet by mouth daily for 10 days. LEVAQUIN 500 MG TAB 172317 LEVOFLOXACIN Inactive PREDNISONE 20 MG ORAL TABS 3 TABS PO FOR 3 DAYS,THAN 2 TABS FOR 3 DAYS THAN, 1 TAB FOR 3 DAYS THAN, 1/2 TAB FOR 3 DAYS. PREDNISONE 20 MG ORAL TABS 147340 PREDNISONE Inactive PREDNISONE 20 MG ORAL TABS 3 daily for 3 days than, 2 tabs daily for 3 days than, 2 tabs daily for 3 days than, 1 tab daily for 3 days than 1/2 tab daily for 3 days. PREDNISONE 20 MG ORAL TABS 810757 PREDNISONE Inactive AMOXICILLIN 500 MG ORAL TABS Take one by mouth 3 times daily, morning, afternoon and evening.] AMOXICILLIN 500 MG ORAL TABS 790229 AMOXICILLIN Inactive LEVAQUIN 500 MG TAB 1 tablet by mouth daily LEVAQUIN 500 MG TAB 353548 LEVOFLOXACIN Inactive LEVAQUIN 500 MG TAB 1 tablet by mouth daily LEVAQUIN 500 MG TAB 202727 LEVOFLOXACIN Inactive PREDNISONE 20 MG ORAL TABS 3 tabs po for 3 days than,2 tabs po for 3 days,1 tab po for 3 days, 1/2 tab po for 3 days. PREDNISONE 20 MG ORAL TABS 373935 PREDNISONE Inactive ZITHROMAX 250 MG TAB 2 po today, then 1 po q days 2-5 ZITHROMAX 250 MG TAB 2424622 AZITHROMYCIN Inactive PREDNISONE 20 MG TAB 2 tabs daily for 3 days, 1 tab daily for 3 days, 1/2 tab daily for 2 days PREDNISONE 20 MG TAB 975440 PREDNISONE Inactive KEFLEX 500 MG CAP 1 po TID x 7 days KEFLEX 500 MG CAP 743057 CEPHALEXIN Inactive LEVOFLOXACIN 500 MG ORAL TABS take 1 tab po qday LEVOFLOXACIN 500 MG ORAL TABS 830123 LEVOFLOXACIN Inactive PREDNISONE 20 MG TAB 2 tabs daily for 3 days, 1 tab daily for 3 days, 1/2 tab daily for 2 days PREDNISONE 20 MG TAB 397120 PREDNISONE Inactive DOXYCYCLINE HYCLATE 100 MG CAP 1 cap by mouth twice daily DOXYCYCLINE HYCLATE 100 MG CAP 6671577 DOXYCYCLINE HYCLATE Inactive PREDNISONE 20 MG TAB take 3 tabs daily for 3 days, 2 tabs daily for 3 days, 1 tab daily for 3 days, 1/2 tab daily for 3 days PREDNISONE 20 MG TAB 847302 PREDNISONE Inactive PREDNISONE 20 MG TAB take 3 tabs daily for 3 days, 2 tabs daily for 3 days, 1 tab daily for 3 days, 1/2 tab daily for 3 days PREDNISONE 20 MG TAB 544530 PREDNISONE Inactive PREDNISONE 20 MG TAB take 3 tabs daily for 3 days, 2 tabs daily for 3 days, 1 tab daily for 3 days, 1/2 tab daily for 3 days PREDNISONE 20 MG TAB 543733 PREDNISONE Inactive Advance Directives Directive Description Start [...] Peptide - Chemistry sodium, serum 140 mmol/L 109-692 1593/02/09 carbon dioxide, venous blood 39.2 mmol/L 21.0-32.0 [...] 43.52 m[iU]/mL 0.36-3.74 sodium, serum 140 mmol/L 454-579 9559/04/06 carbon dioxide, venous blood 36.3 mmol/L 21.0-32.0 potassium, serum 4.9 mmol/L 3.5-5.2 chloride, serum 100 mmol/L 98-107 blood glucose 62 mg/dL 65-110 urea nitrogen, blood 24 mg/dL 7-18 creatinine, serum 1.09 mg/dL 0.55-1.30 alanine aminotransferase (SGPT), serum 44 U/L 12-78 aspartate aminotransferase (SGOT), serum 25 U/L 15-37 calcium, serum 8.7 mg/dL 8.5-10.1 bilirubin, serum, total 0.50 mg/dL 0.00-1.00 cholesterol, serum 189 mg/dL 193-403 6517/04/06 triglyceride, serum, fasting 117 mg/dL 30-200 HDL [...] 142-424 Encounters Code Encounter Date Provider Facility CPT-17693 Level 4 Est. Patient 17:54:41 PROJECT DESIGNER Austin Albarado MD [facility] CPT-06533 Level 4 Est. Patient 16:11:14 PROJECT DESIGNER Austin Albarado MD [facility]-76164 Level 4 Est. Patient 23:08:56 CDT Austin Albarado MD [facility]-26049 Level 4 Est. Patient 13:27:28 CDT Garcia Stroud MD [facility]-51623 Level 4 Est. Patient 10:51:20 CDT Austin Albarado MD [facility]-20401 Level 4 Est. Patient 20:09:43 PROJECT DESIGNER Austin Albarado MD [facility]-77534 Level 4 Est. Patient 21:00:28 CDT Austin Albarado MD [facility] CPT-22689 Level 4 Est. Patient 10:03:37 CDT Austin Albarado MD [facility] CPT-42756 Level 3 Est. Patient 10:50:28 PROJECT DESIGNER Austin Albarado MD [facility] CPT-16941 Level 4 Est. Patient 21:31:41 PROJECT DESIGNER Austin Albarado MD [facility] CPT-69702 Level 3 Est. Patient 16:22:54 PROJECT DESIGNER Jann Law DO [facility] CPT-16372 Level 3 Est. Patient 11:04:53 PROJECT DESIGNER Tristan Vaughn MD [facility] CPT-54931 Level 4 Est. Patient 09:50:59 CDT Austin Albarado MD [facility] CPT-85270 Level 4 Est. Patient 09:29:00 CDT Austin Albarado MD [facility] CPT-86788 Level 4 Est. Patient 14:23:07 CDT Austin Albarado MD [facility] CPT-59357 Level 4 Est. Patient 14:27:26 CDT Austin Albarado MD [facility] CPT-65090 Level 4 Est. Patient 12:51:43 PROJECT DESIGNER Austin Albarado MD [facility] CPT-96571 Level 3 New Patient 14:17:38 PROJECT DESIGNER Austin Albarado MD [facility] CPT-11660 Level 3 New Patient 11:28:18 PROJECT DESIGNER Austin Albarado MD [facility] Procedures Code Procedure Name Date Entry Date Standard Description CPT-46467 Chest 2V Frontal and Lat - XRAY USE ONLY 15:01:41 PROJECT DESIGNER CPT-45305 First Vx - Ix admin for Medicare patients 16:00:49 CDT CPT-37691 Fluzone High-Dose Intramuscular Suspension 16:00:49 CDT CPT-G0009 Administration of Pneumococcal Vaccine 13:25:27 CDT CPT-53603 Prevnar 13 Intramuscular Suspension 13:25:27 CDT 09/26 CPT-G0438 Initial Annual Wellness Exam 11:28:26 CDT CPT-81232 Chest 2V Frontal and Lat 15:00:00 PROJECT DESIGNER CPT-83353 Breathing Tx 14:49:25 PROJECT DESIGNER CPT-51739 Fluzone High Dose 15:08:41 PROJECT DESIGNER CPT-89226 Immunization Single Admin 15:08:41 PROJECT DESIGNER CPT-20750 Fluzone High Dose 17:31:19 CDT CPT-92265 Administration single or combination vaccine inc oral 17 :31:19 CDT CPT-06282 Venipuncture Draw Fee 11:03:05 CDT CPT-TCMM Transitional Care Mgmt-Moderate 16:32:35 CDT CPT-55138 Chest 2V Frontal and Lat 11:51:09 CDT CPT-G0008 Administration of Influenza Virus Vaccine 15:09:08 CDT CPT-58187 Fluzone High-Dose Intramuscular Suspension 15:09:08 CDT CPT-51438 Administration single or combination vaccine inc oral 17 :07:02 PROJECT DESIGNER CPT-96479 Influenza High Dose age 65+ 17:07:02 PROJECT DESIGNER
--- OUTSIDE RECORDS SUMMARY | 2017-02-27 22:02 | XMS REPORT | Clinical Summary ---
Author Author Admin, E Organization [employer] Address Unknown Phone Unavailable Allergies, Adverse Reactions, [...] eruption Influenza, with respiratory symptoms 487.1 Active Jnan Law DO Influenza with other respiratory manifestations [...] Coronary atherosclerosis of unspecified type of vessel, [place] or graft Peripheral edema 782.3 Active Austin [...] 1/2 tab po for 3 days. PREDNISONE 75885884461 No Longer Active Simona Galloway APRN Active LEVAQUIN 500 MG TAB 1 tablet by mouth daily LEVOFLOXACIN 06328944952 No Longer Active Simona Galloway APRN Active PREDNISONE 20 MG TAB take 3 tabs daily for 3 days, 2 tabs daily for 3 days, 1 tab daily for 3 days, 1/2 tab daily for 3 days PREDNISONE 46653923134 No Longer Active Austin Albarado MD Active LEVAQUIN 500 MG TAB 1 tablet by mouth daily LEVOFLOXACIN 54559711560 No Longer Active Madhavi Fiore Active FUROSEMIDE 20 MG TABS take 1 tab po BID for swelling FUROSEMIDE 26874875360 Active Austin Albarado MD Active AMOXICILLIN 500 MG ORAL TABS Take one by mouth 3 times daily, morning, afternoon and evening.] AMOXICILLIN 43805906926 No Longer Active Garcia Stroud MD Active PREDNISONE 20 MG ORAL TABS 3 daily for 3 days than, 2 tabs daily for 3 days than, 2 tabs daily for 3 days than, 1 tab daily for 3 days than 1/2 tab daily for 3 days. PREDNISONE 53121776571 No Longer Active Tracie Arrington APRN Active FLUTICASONE PROPIONATE 50 MCG/ACT SUSP 1 to 2 sprays each nostril daily 08/21 FLUTICASONE PROPIONATE 23091918686 Active Simona Galloway APRN Active PREDNISONE 10 MG TAB take 1 tab po qday for severe COPD PREDNISONE 89967347537 Active Austin Albarado MD Active PREDNISONE 20 MG ORAL TABS 3 TABS PO FOR 3 DAYS,THAN 2 TABS FOR 3 DAYS THAN, 1 TAB FOR 3 DAYS THAN, 1/2 TAB FOR 3 DAYS. PREDNISONE 36594889124 No Longer Active Austin Albarado MD Active LEVAQUIN 500 MG TAB 1 tablet by mouth daily for 10 days. LEVOFLOXACIN 55768652942 No Longer Active Austin Albarado MD Active PREDNISONE 20 MG TAB take 3 tabs daily for 3 days, 2 tabs daily for 3 days, 1 tab daily for 3 days, 1/2 tab daily for 3 days PREDNISONE 06697322468 No Longer Active Simona Galloway APRN Active ZITHROMAX 1 GM ORAL PACK DIRECTED AZITHROMYCIN 76465592417 No Longer Active Simona Galloway APRN Active PREDNISONE 20 MG TAB 2 tabs daily for 4 days, 1 tab daily for 4 days, 1/2 tab daily for 4 days PREDNISONE 41748815665 No Longer Active Austin Albarado MD Active LEVAQUIN 500 MG TAB 1 tablet by mouth daily LEVOFLOXACIN 76523348937 No Longer Active Austin Albarado MD Active PREDNISONE 20 MG TAB take 3 tabs daily for 3 days, 2 tabs daily for 3 days, 1 tab daily for 3 days, 1/2 tab daily for 3 days PREDNISONE 19084463374 No Longer Active Austin Albarado MD Active DOXYCYCLINE HYCLATE 100 MG CAP 1 cap by mouth twice daily DOXYCYCLINE HYCLATE 05935052713 No Longer Active Jillina Frazeldemario [facility] [employer] Active ALBUTEROL SULFATE (2.5 MG/3ML) 0.083% NEBU nebulize 1 vial q 4-6 hours prn shortness of breath ALBUTEROL SULFATE 95004366799 No Longer Active 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 [facility] Active TORSEMIDE 20 MG TABS 1 TAB PO BID TORSEMIDE 99554214871 No Longer Active 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 [facility] [employer] Active PREDNISONE 20 MG TAB 2 tabs daily for 3 days, 1 tab daily for 3 days, 1/2 tab daily for 2 days PREDNISONE 38091735588 No Longer Active Austin Albarado MD Active LEVOFLOXACIN 500 MG ORAL TABS take 1 tab po qday LEVOFLOXACIN 64430623576 No Longer Active Austin Albarado MD Active PREDNISONE 20 MG TAB 2 tablets today, then 1 tablet by mouth days 2-5 PREDNISONE 72587323997 No Longer Active Austin Albarado MD Active AZITHROMYCIN 500 MG SOLR 1 po q day AZITHROMYCIN 45211208133 No Longer Active Austin Albarado MD Active KEFLEX 500 MG CAP 1 po TID x 7 days CEPHALEXIN 74797299445 No Longer Active Tristan Vaughn MD Active EQL VISION FORMULA TABS 1 TAB PO DAILY MULTIPLE VITAMINS-MINERALS 27257568687 No Longer Active Tristan Vaughn MD Active CHANTIX STARTING MONTH ELVIS 0.5 MG X 11 & 1 MG X 42 TABS 0.5mg daily for 3 days , then 0.5mg BID for 4 days, then 1mg BID VARENICLINE TARTRATE 20787029105 No Longer Active Tristan Vaughn MD Active LEVOTHYROXINE SODIUM 200 MCG TABS 1 TAB PO DAILY LEVOTHYROXINE SODIUM 22970146654 No Longer Active Tristan Vaughn MD Active LIOTHYRONINE SODIUM 50 MCG TABS take 1 tab po qday for hypothyroidism LIOTHYRONINE SODIUM 35752713449 No Longer Active Austin Albarado MD Active SYNTHROID 0.025 MG TAB 1 tablet by mouth daily LEVOTHYROXINE SODIUM 10411482428 No Longer Active Austin Albarado MD Active ARMOUR THYROID 120 MG TABS take 1 tab po qday for hypothyroidism THYROID 29708325983 Active Austin Albarado MD Active FLONASE 50 MCG/ACT SUSP 1 spray each nostril am and hs FLUTICASONE PROPIONATE Active Simona Galloway APRN Active ZITHROMAX 1 GM PACK DIRECTED AZITHROMYCIN 09545552904 No Longer Active Austin Albarado MD Active PREDNISONE 20 MG TAB 2 tabs daily for 3 days, 1 tab daily for 3 days, 1/2 tab daily for 2 days PREDNISONE 72116215871 No Longer Active Austin Albarado MD Active ZITHROMAX 250 MG TAB 2 po today, then 1 po q days 2-5 AZITHROMYCIN 02864675035 No Longer Active Austin Albarado MD Active NYSTATIN-TRIAMCINOLONE 680079-2.1 UNIT/GM-% OINT Apply to affected area TID NYSTATIN-TRIAMCINOLONE 50724865033 Active Austin Albarado MD Active IPRATROPIUM-ALBUTEROL 0.5-2.5 (3) MG/3ML SOLN 1 VIAL NEB Q 6 HRS PRN IPRATROPIUM-ALBUTEROL 24017413835 Active Simonastacie Galloway [facility] Active PROAIR HFA 108 (90 BASE) MCG/ACT AERS take 1-2 puffs q4hrs prn cough/ SOB ALBUTEROL SULFATE 97355656732 Active Austin Albarado MD Active ADVAIR DISKUS 500-50 MCG/DOSE AEPB ONE INH BID FLUTICASONE- SALMETEROL 10908662978 Active Austin Albarado MD Active ZITHROMAX 1 GM PACK DIRECTED ZITHROMAX 1 GM PACK 838117 AZITHROMYCIN Inactive SYNTHROID 0.025 MG TAB 1 tablet by mouth daily SYNTHROID 0.025 MG TAB 766798 LEVOTHYROXINE SODIUM Inactive LIOTHYRONINE SODIUM 50 MCG TABS take 1 tab po qday for hypothyroidism LIOTHYRONINE SODIUM 50 MCG TABS 682875 LIOTHYRONINE SODIUM Inactive LEVOTHYROXINE SODIUM 200 MCG TABS 1 TAB PO DAILY LEVOTHYROXINE SODIUM 200 MCG TABS 147314 LEVOTHYROXINE SODIUM Inactive CHANTIX STARTING MONTH ELVIS [...] po q day AZITHROMYCIN 500 MG SOLR 33946065241 AZITHROMYCIN Inactive PREDNISONE 20 MG TAB 2 tablets today, then 1 tablet by mouth days 2-5 PREDNISONE 20 MG TAB 900824 PREDNISONE Inactive TORSEMIDE 20 MG TABS 1 TAB PO BID TORSEMIDE 20 MG TABS 879153 TORSEMIDE Inactive ALBUTEROL SULFATE (2.5 MG/3ML) 0.083% NEBU nebulize 1 vial q 4-6 hours prn shortness of breath ALBUTEROL SULFATE (2.5 MG/3ML) 0.083% NEBU 979955 ALBUTEROL SULFATE Inactive LEVAQUIN 500 MG TAB 1 tablet by mouth daily LEVAQUIN 500 MG TAB 703978 LEVOFLOXACIN Inactive PREDNISONE 20 MG TAB 2 tabs daily for 4 days, 1 tab daily for 4 days, 1/2 tab daily for 4 days PREDNISONE 20 MG TAB 937962 PREDNISONE Inactive ZITHROMAX 1 GM ORAL PACK DIRECTED ZITHROMAX 1 GM ORAL PACK 058997 AZITHROMYCIN Inactive LEVAQUIN 500 MG TAB 1 tablet by mouth daily for 10 days. LEVAQUIN 500 MG TAB 964296 LEVOFLOXACIN Inactive PREDNISONE 20 MG ORAL TABS 3 TABS PO FOR 3 DAYS,THAN 2 TABS FOR 3 DAYS THAN, 1 TAB FOR 3 DAYS THAN, 1/2 TAB FOR 3 DAYS. PREDNISONE 20 MG ORAL TABS 297522 PREDNISONE Inactive PREDNISONE 20 MG ORAL TABS 3 daily for 3 days than, 2 tabs daily for 3 days than, 2 tabs daily for 3 days than, 1 tab daily for 3 days than 1/2 tab daily for 3 days. PREDNISONE 20 MG ORAL TABS 980856 PREDNISONE Inactive AMOXICILLIN 500 MG ORAL TABS Take one by mouth 3 times daily, morning, afternoon and evening.] AMOXICILLIN 500 MG ORAL TABS 677500 AMOXICILLIN Inactive LEVAQUIN 500 MG TAB 1 tablet by mouth daily LEVAQUIN 500 MG TAB 071157 LEVOFLOXACIN Inactive LEVAQUIN 500 MG TAB 1 tablet by mouth daily LEVAQUIN 500 MG TAB 468148 LEVOFLOXACIN Inactive PREDNISONE 20 MG ORAL TABS 3 tabs po for 3 days than,2 tabs po for 3 days,1 tab po for 3 days, 1/2 tab po for 3 days. PREDNISONE 20 MG ORAL TABS 083008 PREDNISONE Inactive ZITHROMAX 250 MG TAB 2 po today, then 1 po q days 2-5 ZITHROMAX 250 MG TAB 0731765 AZITHROMYCIN Inactive PREDNISONE 20 MG TAB 2 tabs daily for 3 days, 1 tab daily for 3 days, 1/2 tab daily for 2 days PREDNISONE 20 MG TAB 152972 PREDNISONE Inactive KEFLEX 500 MG CAP 1 po TID x 7 days KEFLEX 500 MG CAP 054460 CEPHALEXIN Inactive LEVOFLOXACIN 500 MG ORAL TABS take 1 tab po qday LEVOFLOXACIN 500 MG ORAL TABS 978578 LEVOFLOXACIN Inactive PREDNISONE 20 MG TAB 2 tabs daily for 3 days, 1 tab daily for 3 days, 1/2 tab daily for 2 days PREDNISONE 20 MG TAB 338819 PREDNISONE Inactive DOXYCYCLINE HYCLATE 100 MG CAP 1 cap by mouth twice daily DOXYCYCLINE HYCLATE 100 MG CAP 3812128 DOXYCYCLINE HYCLATE Inactive PREDNISONE 20 MG TAB take 3 tabs daily for 3 days, 2 tabs daily for 3 days, 1 tab daily for 3 days, 1/2 tab daily for 3 days PREDNISONE 20 MG TAB 892712 PREDNISONE Inactive PREDNISONE 20 MG TAB take 3 tabs daily for 3 days, 2 tabs daily for 3 days, 1 tab daily for 3 days, 1/2 tab daily for 3 days PREDNISONE 20 MG TAB 150607 PREDNISONE Inactive PREDNISONE 20 MG TAB take 3 tabs daily for 3 days, 2 tabs daily for 3 days, 1 tab daily for 3 days, 1/2 tab daily for 3 days PREDNISONE 20 MG TAB 403607 PREDNISONE Inactive Advance Directives Directive Description Start Date PERMISSION TO SHARE DISCUSSED WITH PATIENT -- NO DECISION MADE Immunizations Vaccine Administration Date Value Standard Description pneumococcal immunization administered Pneumovax 23 [CVX33] pneumococcal polysaccharide vaccine, 23 valent Vital Signs Date Name Value Unit Range Description blood pressure, diastolic - 8462-4 63 mm[Hg] BP fernandse blood pressure, systolic - 8480-6 112 mm[Hg] [...] Peptide - Chemistry sodium, serum 140 mmol/L 162-787 7869/02/09 carbon dioxide, venous blood 39.2 mmol/L 21.0-32.0 potassium, serum 4.4 mmol/L 3.5-5.2 chloride, serum 100 mmol/L 98-107 blood glucose 131 mg/dL 65-110 urea nitrogen, blood 27 mg/dL 7-18 creatinine, serum 1.30 mg/dL 0.55-1.30 alanine aminotransferase (SGPT), serum 38 U/L -78 aspartate aminotransferase (SGOT), serum 34 U/L 15-37 calcium, serum 8.6 mg/dL 8.5-10.1 bilirubin, serum, total 0.30 mg/dL 0.00-1.00 Lab Report: Thyroid Stimulating Hormone (L), Comp. Metabolic Panel, CBC, ... - Chemistry TSH 43.52 m[iU]/mL 0.36-3.74 sodium, serum 140 mmol/L 772-309 3544/04/06 carbon dioxide, venous blood 36.3 mmol/L 21.0-32.0 potassium, serum 4.9 mmol/L 3.5-5.2 chloride, serum 100 mmol/L 98-107 blood glucose 62 mg/dL 65-110 urea nitrogen, blood 24 mg/dL 7-18 creatinine, serum 1.09 mg/dL 0.55-1.30 alanine aminotransferase (SGPT), serum 44 U/L -78 aspartate aminotransferase (SGOT), serum 25 U/L 15-37 calcium, serum 8.7 mg/dL 8.5-10.1 bilirubin, serum, total 0.50 mg/dL 0.00-1.00 cholesterol, serum 189 mg/dL 549-004 6106/04/06 triglyceride, serum, fasting 117 mg/dL 30-200 HDL [...] 142-424 Encounters Code Encounter Date Provider Facility CPT-50207 Level 4 Est. Patient 17:54:41 SKIN WASHER Austin Albarado MD [facility] CPT-60888 Level 4 Est. Patient 16:11:14 SKIN WASHER Austin Albarado MD [facility] CPT-54716 Level 4 Est. Patient 23:08:56 CDT Austin Albarado MD [facility] CPT-85318 Level 4 Est. Patient 13:27:28 CDT Garcia Stroud MD [facility] CPT-99204 Level 4 Est. Patient 10:51:20 CDT Austin Albarado MD [facility] CPT-65480 Level 4 Est. Patient 20:09:43 SKIN WASHER Austin Albarado MD [facility] CPT-31925 Level 4 Est. Patient 21:00:28 CDT Austin Albarado MD [facility] CPT-12374 Level 4 Est. Patient 10:03:37 CDT Austin Albarado MD [facility] CPT-48265 Level 3 Est. Patient 10:50:28 SKIN WASHER Austin Albarado MD [facility] CPT-63092 Level 4 Est. Patient 21:31:41 SKIN WASHER Austin Albarado MD [facility] CPT-47457 Level 3 Est. Patient 16:22:54 SKIN WASHER Jann Law DO [facility] CPT-37456 Level 3 Est. Patient 11:04:53 SKIN WASHER Tristan Vaughn MD [facility] CPT-75133 Level 4 Est. Patient 09:50:59 CDT Austin Albarado MD [facility] CPT-75919 Level 4 Est. Patient 09:29:00 CDT Austin Albarado MD [facility] CPT-62285 Level 4 Est. Patient 14:23:07 CDT Austin Albarado MD [facility] CPT-32983 Level 4 Est. Patient 14:27:26 CDT Austin Albarado MD [facility] CPT-75408 Level 4 Est. Patient 12:51:43 SKIN WASHER Austin Albarado MD [facility] CPT-95587 Level 3 New Patient 14:17:38 SKIN WASHER Austin Albarado MD [facility] CPT-66493 Level 3 New Patient 11:28:18 SKIN WASHER Austin Albarado MD [facility] Procedures Code Procedure Name Date Entry Date Standard Description CPT-TCMM Transitional Care Mgmt-Moderate 14:53:36 SKIN WASHER CPT-73970 No Charge Offi Visit 10:19:33 SKIN WASHER CPT-82944 Chest 2V Frontal and Lat - XRAY USE ONLY 15:01:41 SKIN WASHER CPT-33197 First Vx - Ix admin for Medicare patients 16:00:49 CDT CPT-63229 Fluzone High-Dose Intramuscular Suspension 16:00:49 CDT CPT-G0009 Administration of Pneumococcal Vaccine 13:25:27 CDT CPT-35440 Prevnar 13 Intramuscular Suspension 13:25:27 CDT 09/26 CPT-G0438 Initial Annual Wellness Exam 11:28:26 CDT CPT-56146 Chest 2V Frontal and Lat 15:00:00 SKIN WASHER CPT-36220 Breathing Tx 14:49:25 SKIN WASHER CPT-28672 Fluzone High Dose 15:08:41 SKIN WASHER CPT-60482 Immunization Single Admin 15:08:41 SKIN WASHER CPT-95690 Fluzone High Dose 17:31:19 CDT CPT-72578 Administration single or combination vaccine inc oral 17 :31:19 CDT CPT-99349 Venipuncture Draw Fee 11:03:05 CDT CPT-TCMM Transitional Care Mgmt-Moderate 16:32:35 CDT CPT-17549 Chest 2V Frontal and Lat 11:51:09 CDT CPT-G0008 Administration of Influenza Virus Vaccine 15:09:08 CDT CPT-16592 Fluzone High-Dose Intramuscular Suspension 15:09:08 CDT CPT-60767 Administration single or combination vaccine inc oral 17 :07:02 SKIN WASHER CPT-78995 Influenza High Dose age 65+ 17:07:02 SKIN WASHER
--- OUTSIDE RECORDS SUMMARY | 2017-02-27 22:02 | XMS REPORT | Clinical Summary ---
Author Author Admin, LEE Organization [facility] Address Unknown Phone Unavailable Allergies, Adverse [...] 1/2 tab daily for 4 days PREDNISONE 25634775303 Active 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 [employer] DEVELOPER Active DOXYCYCLINE HYCLATE 100 MG CAP 1 cap by mouth twice daily DOXYCYCLINE HYCLATE 77126510888 No Longer Active 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 [employer] DEVELOPER Active ALBUTEROL SULFATE (2.5 MG/3ML) 0.083% NEBU nebulize 1 vial q 4-6 hours prn shortness of breath ALBUTEROL SULFATE 61823519357 No Longer Active 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 [employer]EL[employer] Active TORSEMIDE 20 MG TABS 1 TAB PO BID TORSEMIDE 98592506708 No Longer Active 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 [employer] DEVELOPER Active PREDNISONE 20 MG TAB 2 tabs daily for 3 days, 1 tab daily for 3 days, 1/2 tab daily for 2 days PREDNISONE 59793291488 No Longer Active Austin Albarado MD Active LEVOFLOXACIN 500 MG ORAL TABS take 1 tab po qday LEVOFLOXACIN 23425892524 No Longer Active Austin Albarado MD Active PREDNISONE 20 MG TAB 2 tablets today, then 1 tablet by mouth days 2-5 PREDNISONE 01083214096 No Longer Active Austin Albarado MD Active AZITHROMYCIN 500 MG SOLR 1 po q day AZITHROMYCIN 67525552916 No Longer Active Austin Albarado MD Active KEFLEX 500 MG CAP 1 po TID x 7 days CEPHALEXIN 04871123565 No Longer Active Tristan Vaughn MD Active EQL VISION FORMULA TABS 1 TAB PO DAILY MULTIPLE VITAMINS-MINERALS 67044167169 No Longer Active Tristan Vaughn MD Active CHANTIX STARTING MONTH ELVIS 0.5 MG X 11 & 1 MG X 42 TABS 0.5mg daily for 3 days , then 0.5mg BID for 4 days, then 1mg BID VARENICLINE TARTRATE 68982935090 No Longer Active Tristan Vaughn MD Active LEVOTHYROXINE SODIUM 200 MCG TABS 1 TAB PO DAILY LEVOTHYROXINE SODIUM 35998856978 No Longer Active Tristan Vaughn MD Active LIOTHYRONINE SODIUM 50 MCG TABS take 1 tab po qday for hypothyroidism LIOTHYRONINE SODIUM 56095156906 No Longer Active Austin Albarado MD Active SYNTHROID 0.025 MG TAB 1 tablet by mouth daily LEVOTHYROXINE SODIUM 49084061175 No Longer Active Austin Albarado MD Active ARMOUR THYROID 120 MG TABS take 1 tab po qday for hypothyroidism THYROID 63437029104 Active Austin Albarado MD Active FLONASE 50 MCG/ACT SUSP 1 spray each nostril am and hs FLUTICASONE PROPIONATE 60007328320 Active Austin Albarado MD Active ZITHROMAX 1 GM PACK DIRECTED AZITHROMYCIN 35812187391 No Longer Active Austin Albarado MD Active PREDNISONE 20 MG TAB 2 tabs daily for 3 days, 1 tab daily for 3 days, 1/2 tab daily for 2 days PREDNISONE 05986378258 No Longer Active Austin Albarado MD Active ZITHROMAX 250 MG TAB 2 po today, then 1 po q days 2-5 AZITHROMYCIN 34470876113 No Longer Active Austin Albarado MD Active NYSTATIN-TRIAMCINOLONE 739422-2.1 UNIT/GM-% OINT Apply to affected area TID NYSTATIN-TRIAMCINOLONE 94184674217 Active Austin Albarado MD Active IPRATROPIUM-ALBUTEROL 0.5-2.5 (3) MG/3ML SOLN 1 VIAL NEB Q 6 HRS PRN IPRATROPIUM-ALBUTEROL 78633613380 Active Austin Albarado MD Active PROAIR HFA 108 (90 BASE) MCG/ACT AERS take 1-2 puffs q4hrs prn cough/ SOB ALBUTEROL SULFATE 32493859824 Active Austin Albarado MD Active ADVAIR DISKUS 500-50 MCG/DOSE AEPB ONE INH BID FLUTICASONE- SALMETEROL 58722462364 Active Austin Albarado MD Active ZITHROMAX 1 GM PACK DIRECTED ZITHROMAX 1 GM PACK 027772 AZITHROMYCIN Inactive SYNTHROID 0.025 MG TAB 1 tablet by mouth daily SYNTHROID 0.025 MG TAB 124883 LEVOTHYROXINE SODIUM Inactive LIOTHYRONINE SODIUM 50 MCG TABS take 1 tab po qday for hypothyroidism LIOTHYRONINE SODIUM 50 MCG TABS 172680 LIOTHYRONINE SODIUM Inactive LEVOTHYROXINE SODIUM 200 MCG TABS 1 TAB PO DAILY LEVOTHYROXINE SODIUM 200 MCG TABS 345566 LEVOTHYROXINE SODIUM Inactive CHANTIX STARTING MONTH ELVIS [...] po q day AZITHROMYCIN 500 MG SOLR 543673 AZITHROMYCIN Inactive PREDNISONE 20 MG TAB 2 tablets today, then 1 tablet by mouth days 2-5 PREDNISONE 20 MG TAB 472702 PREDNISONE Inactive TORSEMIDE 20 MG TABS 1 TAB PO BID TORSEMIDE 20 MG TABS 171488 TORSEMIDE Inactive ALBUTEROL SULFATE (2.5 MG/3ML) 0.083% NEBU nebulize 1 vial q 4-6 hours prn shortness of breath ALBUTEROL SULFATE (2.5 MG/3ML) 0.083% NEBU 330049 ALBUTEROL SULFATE Inactive ZITHROMAX 250 MG TAB 2 po today, then 1 po q days 2-5 ZITHROMAX 250 MG TAB 6848141 AZITHROMYCIN Inactive PREDNISONE 20 MG TAB 2 tabs daily for 3 days, 1 tab daily for 3 days, 1/2 tab daily for 2 days PREDNISONE 20 MG TAB 728102 PREDNISONE Inactive KEFLEX 500 MG CAP 1 po TID x 7 days KEFLEX 500 MG CAP 279280 CEPHALEXIN Inactive LEVOFLOXACIN 500 MG ORAL TABS take 1 tab po qday LEVOFLOXACIN 500 MG ORAL TABS 352465 LEVOFLOXACIN Inactive PREDNISONE 20 MG TAB 2 tabs daily for 3 days, 1 tab daily for 3 days, 1/2 tab daily for 2 days PREDNISONE 20 MG TAB 482425 PREDNISONE Inactive DOXYCYCLINE HYCLATE 100 MG CAP 1 cap by mouth twice daily DOXYCYCLINE HYCLATE 100 MG CAP 860109 DOXYCYCLINE HYCLATE Inactive Advance Directives Directive Description Start Date PERMISSION TO SHARE Immunizations Vaccine Administration Date Value Standard Description pneumococcal immunization administered Pneumovax 23 [CVX33] pneumococcal polysaccharide vaccine, 23 valent Vital Signs Date Name Value Unit Range Description blood pressure, diastolic - 8462-4 69 mm[Hg] [...] ... - Chemistry sodium, serum 140 mmol/L 435-595 8942/03/09 potassium, serum 4.9 mmol/L 3.5-5.2 chloride, serum [...] ... - Chemistry sodium, serum 140 mmol/L 251-121 3513/04/03 potassium, serum 4.9 mmol/L 3.5-5.2 chloride, serum [...] 0.60 mg/dL 0.00-1.00 cholesterol, serum 163 mg/dL 700-825 1811/04/03 triglyceride, serum, fasting 50 mg/dL 30-200 HDL [...] 0.36-3.74 Encounters Code Encounter Date Provider Facility CPT-80749 Level 3 Est. Patient 10:50:28 STAGE DIRECTOR Austin Albarado MD [facility] CPT-78041 Level 4 Est. Patient 21:31:41 STAGE DIRECTOR Austin Albarado MD [facility] CPT-23056 Level 3 Est. Patient 16:22:54 STAGE DIRECTOR Jann Law DO [facility] CPT-72857 Level 3 Est. Patient 11:04:53 STAGE DIRECTOR Tristan Vaughn MD [facility] CPT-22524 Level 4 Est. Patient 09:50:59 CDT Austin Albarado MD [facility] CPT-00689 Level 4 Est. Patient 09:29:00 CDT Austin Albarado MD [facility] CPT-84108 Level 4 Est. Patient 14:23:07 CDT Austin Albarado MD [facility] CPT-79673 Level 4 Est. Patient 14:27:26 CDT Austin Albarado MD [facility] CPT-97949 Level 4 Est. Patient 12:51:43 STAGE DIRECTOR Austin Albarado MD [facility] CPT-18550 Level 3 New Patient 14:17:38 STAGE DIRECTOR Austin Albarado MD [facility] CPT-58768 Level 3 New Patient 11:28:18 STAGE DIRECTOR Austin Albarado MD [facility] Procedures Code Procedure Name Date Entry Date Standard Description CPT-00431 Chest 2V Frontal and Lat 11:51:09 CDT CPT-G0008 Administration of Influenza Virus Vaccine 15:09:08 CDT CPT-35981 Fluzone High-Dose Intramuscular Suspension 15:09:08 CDT CPT-01077 Administration single or combination vaccine inc oral 17 :07:02 STAGE DIRECTOR CPT-66203 Influenza High Dose age 65+ 17:07:02 STAGE DIRECTOR
--- OUTSIDE RECORDS SUMMARY | 2017-02-27 22:03 | XMS REPORT | Clinical Summary ---
Author Author Admin, LEE Organization [facility] Address Unknown Phone Unavailable Allergies, Adverse [...] 1/2 tab daily for 3 days PREDNISONE 89720926953 No Longer Active Austin Albarado MD Active LEVAQUIN 500 MG TAB 1 tablet by mouth daily LEVOFLOXACIN 76215678986 Active Austin Albarado MD Active PREDNISONE 20 MG TAB 2 tabs daily for 4 days, 1 tab daily for 4 days, 1/2 tab daily for 4 days PREDNISONE 98779935461 Active 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 SHAKE SAWYER Active DOXYCYCLINE HYCLATE 100 MG CAP 1 cap by mouth twice daily DOXYCYCLINE HYCLATE 01594733983 No Longer Active 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 SHAKE SAWYER Active ALBUTEROL SULFATE (2.5 MG/3ML) 0.083% NEBU nebulize 1 vial q 4-6 hours prn shortness of breath ALBUTEROL SULFATE 79670624247 No Longer Active 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 SHAKE SAWYER Active TORSEMIDE 20 MG TABS 1 TAB PO BID TORSEMIDE 79862230287 No Longer Active 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 SHAKE SAWYER Active PREDNISONE 20 MG TAB 2 tabs daily for 3 days, 1 tab daily for 3 days, 1/2 tab daily for 2 days PREDNISONE 14155047677 No Longer Active Austin Albarado MD Active LEVOFLOXACIN 500 MG ORAL TABS take 1 tab po qday LEVOFLOXACIN 79076726283 No Longer Active Austin Albarado MD Active PREDNISONE 20 MG TAB 2 tablets today, then 1 tablet by mouth days 2-5 PREDNISONE 47650511624 No Longer Active Austin Albarado MD Active AZITHROMYCIN 500 MG SOLR 1 po q day AZITHROMYCIN 98466391106 No Longer Active Austin Albarado MD Active KEFLEX 500 MG CAP 1 po TID x 7 days CEPHALEXIN 12315000588 No Longer Active Tristan Vaughn MD Active EQL VISION FORMULA TABS 1 TAB PO DAILY MULTIPLE VITAMINS-MINERALS 59086101370 No Longer Active Tristan Vaughn MD Active CHANTIX STARTING MONTH ELVIS 0.5 MG X 11 & 1 MG X 42 TABS 0.5mg daily for 3 days , then 0.5mg BID for 4 days, then 1mg BID VARENICLINE TARTRATE 22141174003 No Longer Active Tristan Vaughn MD Active LEVOTHYROXINE SODIUM 200 MCG TABS 1 TAB PO DAILY LEVOTHYROXINE SODIUM 81021917111 No Longer Active Tristan Vaughn MD Active LIOTHYRONINE SODIUM 50 MCG TABS take 1 tab po qday for hypothyroidism LIOTHYRONINE SODIUM 99867139818 No Longer Active Austin Albarado MD Active SYNTHROID 0.025 MG TAB 1 tablet by mouth daily LEVOTHYROXINE SODIUM 78919071137 No Longer Active Austin Albarado MD Active ARMOUR THYROID 120 MG TABS take 1 tab po qday for hypothyroidism THYROID 96433615567 Active Austin Albarado MD Active FLONASE 50 MCG/ACT SUSP 1 spray each nostril am and hs FLUTICASONE PROPIONATE 52041339883 Active Austin Albarado MD Active ZITHROMAX 1 GM PACK DIRECTED AZITHROMYCIN 34606096213 No Longer Active Austin Albarado MD Active PREDNISONE 20 MG TAB 2 tabs daily for 3 days, 1 tab daily for 3 days, 1/2 tab daily for 2 days PREDNISONE 29576427987 No Longer Active Austin Albarado MD Active ZITHROMAX 250 MG TAB 2 po today, then 1 po q days 2-5 AZITHROMYCIN 37916573038 No Longer Active Austin Albarado MD Active NYSTATIN-TRIAMCINOLONE 245296-0.1 UNIT/GM-% OINT Apply to affected area TID NYSTATIN-TRIAMCINOLONE 43911073165 Active Austin Albarado MD Active IPRATROPIUM-ALBUTEROL 0.5-2.5 (3) MG/3ML SOLN 1 VIAL NEB Q 6 HRS PRN IPRATROPIUM-ALBUTEROL 32031090103 Active Austin Albarado MD Active PROAIR HFA 108 (90 BASE) MCG/ACT AERS take 1-2 puffs q4hrs prn cough/ SOB ALBUTEROL SULFATE 57708926774 Active Austin Albarado MD Active ADVAIR DISKUS 500-50 MCG/DOSE AEPB ONE INH BID FLUTICASONE- SALMETEROL 46798281402 Active Austin Albarado MD Active ZITHROMAX 1 GM PACK DIRECTED ZITHROMAX 1 GM PACK 790801 AZITHROMYCIN Inactive SYNTHROID 0.025 MG TAB 1 tablet by mouth daily SYNTHROID 0.025 MG TAB 807199 LEVOTHYROXINE SODIUM Inactive LIOTHYRONINE SODIUM 50 MCG TABS take 1 tab po qday for hypothyroidism LIOTHYRONINE SODIUM 50 MCG TABS 577971 LIOTHYRONINE SODIUM Inactive LEVOTHYROXINE SODIUM 200 MCG TABS 1 TAB PO DAILY LEVOTHYROXINE SODIUM 200 MCG TABS 191278 LEVOTHYROXINE SODIUM Inactive CHANTIX STARTING MONTH ELVIS [...] po q day AZITHROMYCIN 500 MG SOLR 202168 AZITHROMYCIN Inactive PREDNISONE 20 MG TAB 2 tablets today, then 1 tablet by mouth days 2-5 PREDNISONE 20 MG TAB 212097 PREDNISONE Inactive TORSEMIDE 20 MG TABS 1 TAB PO BID TORSEMIDE 20 MG TABS 555642 TORSEMIDE Inactive ALBUTEROL SULFATE (2.5 MG/3ML) 0.083% NEBU nebulize 1 vial q 4-6 hours prn shortness of breath ALBUTEROL SULFATE (2.5 MG/3ML) 0.083% NEBU 677727 ALBUTEROL SULFATE Inactive ZITHROMAX 250 MG TAB 2 po today, then 1 po q days 2-5 ZITHROMAX 250 MG TAB 4924595 AZITHROMYCIN Inactive PREDNISONE 20 MG TAB 2 tabs daily for 3 days, 1 tab daily for 3 days, 1/2 tab daily for 2 days PREDNISONE 20 MG TAB 062247 PREDNISONE Inactive KEFLEX 500 MG CAP 1 po TID x 7 days KEFLEX 500 MG CAP 268232 CEPHALEXIN Inactive LEVOFLOXACIN 500 MG ORAL TABS take 1 tab po qday LEVOFLOXACIN 500 MG ORAL TABS 816564 LEVOFLOXACIN Inactive PREDNISONE 20 MG TAB 2 tabs daily for 3 days, 1 tab daily for 3 days, 1/2 tab daily for 2 days PREDNISONE 20 MG TAB 561507 PREDNISONE Inactive DOXYCYCLINE HYCLATE 100 MG CAP 1 cap by mouth twice daily DOXYCYCLINE HYCLATE 100 MG CAP 19890623 DOXYCYCLINE HYCLATE Inactive PREDNISONE 20 MG TAB take 3 tabs daily for 3 days, 2 tabs daily for 3 days, 1 tab daily for 3 days, 1/2 tab daily for 3 days PREDNISONE 20 MG TAB 604720 PREDNISONE Inactive Advance Directives Directive Description Start [...] E&M - 3141-9 243 [lb_av] Weight Measured Diagnostic Results Date Name Value Unit Range Description Lab Report: CBC W/DIFF, Comp. Metabolic Panel, B-Type Natriuretic Peptid ... - Chemistry sodium, serum 140 mmol/L 164-622 1326/03/09 potassium, serum 4.9 mmol/L 3.5-5.2 chloride, serum [...] 11.6-14.8 platelet count 347 10^3/MM^3 10*3/mm3 142-424 Encounters Code Encounter Date Provider Facility CPT-08909 Level 3 Est. Patient 10:50:28 FACILITIES OPERATIONS TECHNICIAN Austin Albarado MD [facility] CPT-72436 Level 4 Est. Patient 21:31:41 FACILITIES OPERATIONS TECHNICIAN Austin Albarado MD [facility] CPT-80328 Level 3 Est. Patient 16:22:54 FACILITIES OPERATIONS TECHNICIAN Jann Law DO [facility] CPT-91186 Level 3 Est. Patient 11:04:53 FACILITIES OPERATIONS TECHNICIAN Tristan Vaughn MD [facility] CPT-14744 Level 4 Est. Patient 09:50:59 CDT Austin Albarado MD [facility] CPT-32750 Level 4 Est. Patient 09:29:00 CDT Austin Albarado MD [facility] CPT-65547 Level 4 Est. Patient 14:23:07 CDT Austin Albarado MD [facility] CPT-45190 Level 4 Est. Patient 14:27:26 CDT Austin Albarado MD [facility] CPT-39308 Level 4 Est. Patient 12:51:43 FACILITIES OPERATIONS TECHNICIAN Austin Albarado MD [facility] CPT-24474 Level 3 New Patient 14:17:38 FACILITIES OPERATIONS TECHNICIAN Austin Albarado MD [facility] CPT-94761 Level 3 New Patient 11:28:18 FACILITIES OPERATIONS TECHNICIAN Austin Albarado MD [facility] Procedures Code Procedure Name Date Entry Date Standard Description CPT-TCMM Transitional Care Mgmt-Moderate 16:32:35 CDT CPT-38721 Chest 2V Frontal and Lat 11:51:09 CDT CPT-G0008 Administration of Influenza Virus Vaccine 15:09:08 CDT CPT-67206 Fluzone High-Dose Intramuscular Suspension 15:09:08 CDT CPT-47305 Administration single or combination vaccine inc oral 17 :07:02 FACILITIES OPERATIONS TECHNICIAN CPT-60370 Influenza High Dose age 65+ 17:07:02 FACILITIES OPERATIONS TECHNICIAN
--- OUTSIDE RECORDS SUMMARY | 2017-02-27 22:04 | XMS REPORT | Clinical Summary ---
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 Tracie Arrington TRAVEL JOURNALIST Chronic airway obstruction, not elsewhere classified Family history of myocardial infarction V17.3 Active Tracie Arrington TRAVEL JOURNALIST Family history of ischemic heart disease CAD 414.00 Active Tracie Arrington TRAVEL JOURNALIST Coronary atherosclerosis of unspecified type of vessel, [place] or graft Peripheral edema 782.3 Active Austin [...] 1 po BID x 7 days CEPHALEXIN 26837443432 Active Mica Sneed Active KEFLEX 500 MG CAP 1 po BID x 7 days CEPHALEXIN 26252686799 No Longer Active Simona Galloway APRN Active ACYCLOVIR 400 MG TABS 1 pill three times daily ACYCLOVIR 05342175200 No Longer Active Austin Albarado MD Active ACYCLOVIR 400 MG TABS 1 pill three times daily ACYCLOVIR 48901218202 No Longer Active Austin Albarado MD Active ALBUTEROL SULFATE 0.083 % NEBU SOLN one vial per nebulizer every 4 hours as needed Dx. J44.1 ALBUTEROL SULFATE 67699380818 Active Austin Albarado MD Active IPRATROPIUM BROMIDE 0.02 % INH SOLN 1 q 6 hr PRN Dx: J44.1 IPRATROPIUM BROMIDE 01452307485 Active Nella José LPN Active PROAIR HFA 108 (90 BASE) MCG/ACT AERS take 1-2 puffs q 4-6 hrs prn cough/ SOB ALBUTEROL SULFATE 16660063077 Active Nella José LPN Active IPRATROPIUM-ALBUTEROL 0.5-2.5 (3) MG/3ML SOLN 1 VIAL NEB Q 4-6 HRS PRN 04/18 IPRATROPIUM-ALBUTEROL 06847595050 No Longer Active Austin Albarado MD Active ATIVAN 0.5 MG TAB 1 po QD PRN Anxiety LORAZEPAM 02756011901 Active Austin Albarado MD Active PREDNISONE 20 MG ORAL TABS 3 tabs po for 3 days than,2 tabs po for 3 days,1 tab po for 3 days, 1/2 tab po for 3 days. PREDNISONE 20009341233 No Longer Active Simona Galloway APRN Active LEVAQUIN 500 MG TAB 1 tablet by mouth daily LEVOFLOXACIN 11362215962 No Longer Active Simona Galloway APRN Active PREDNISONE 20 MG TAB take 3 tabs daily for 3 days, 2 tabs daily for 3 days, 1 tab daily for 3 days, 1/2 tab daily for 3 days PREDNISONE 73779306853 No Longer Active Austin Albarado MD Active LEVAQUIN 500 MG TAB 1 tablet by mouth daily LEVOFLOXACIN 92889094986 No Longer Active Madhavi Fiore Active FUROSEMIDE 20 MG TABS take 1 tab po BID for swelling FUROSEMIDE 62746735372 Active Austin Albarado MD Active AMOXICILLIN 500 MG ORAL TABS Take one by mouth 3 times daily, morning, afternoon and evening.] AMOXICILLIN 18462976815 No Longer Active Garcia Stroud MD Active PREDNISONE 20 MG ORAL TABS 3 daily for 3 days than, 2 tabs daily for 3 days than, 2 tabs daily for 3 days than, 1 tab daily for 3 days than 1/2 tab daily for 3 days. PREDNISONE 57585188994 No Longer Active Tracie Arrington APRN Active FLUTICASONE PROPIONATE 50 MCG/ACT SUSP 1 to 2 sprays each nostril daily 08/21 FLUTICASONE PROPIONATE 64406253382 Active Simona Galloway APRN Active PREDNISONE 10 MG TAB take 1 tab po qday for severe COPD PREDNISONE 68202912054 Active Austin Albarado MD Active PREDNISONE 20 MG ORAL TABS 3 TABS PO FOR 3 DAYS,THAN 2 TABS FOR 3 DAYS THAN, 1 TAB FOR 3 DAYS THAN, 1/2 TAB FOR 3 DAYS. PREDNISONE 08669689761 No Longer Active Austin Albarado MD Active LEVAQUIN 500 MG TAB 1 tablet by mouth daily for 10 days. LEVOFLOXACIN 94107674412 No Longer Active Austin Albarado MD Active PREDNISONE 20 MG TAB take 3 tabs daily for 3 days, 2 tabs daily for 3 days, 1 tab daily for 3 days, 1/2 tab daily for 3 days PREDNISONE 66061313172 No Longer Active Simona Galloway APRN Active ZITHROMAX 1 GM ORAL PACK DIRECTED AZITHROMYCIN 58242302605 No Longer Active Simona Galloway APRN Active PREDNISONE 20 MG TAB 2 tabs daily for 4 days, 1 tab daily for 4 days, 1/2 tab daily for 4 days PREDNISONE 00518352232 No Longer Active Austin Albarado MD Active LEVAQUIN 500 MG TAB 1 tablet by mouth daily LEVOFLOXACIN 63404565272 No Longer Active Austin Albarado MD Active PREDNISONE 20 MG TAB take 3 tabs daily for 3 days, 2 tabs daily for 3 days, 1 tab daily for 3 days, 1/2 tab daily for 3 days PREDNISONE 88517030025 No Longer Active Austin Albarado MD Active DOXYCYCLINE HYCLATE 100 MG CAP 1 cap by mouth twice daily DOXYCYCLINE HYCLATE 63022222099 No Longer Active 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 TRAVEL JOURNALIST Active ALBUTEROL SULFATE (2.5 MG/3ML) 0.083% NEBU nebulize 1 vial q 4-6 hours prn shortness of breath ALBUTEROL SULFATE 42208582141 No Longer Active 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 TRAVEL JOURNALIST Active TORSEMIDE 20 MG TABS 1 TAB PO BID TORSEMIDE 81987291423 No Longer Active 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 TRAVEL JOURNALIST Active PREDNISONE 20 MG TAB 2 tabs daily for 3 days, 1 tab daily for 3 days, 1/2 tab daily for 2 days PREDNISONE 67958650635 No Longer Active Austin Albarado MD Active LEVOFLOXACIN 500 MG ORAL TABS take 1 tab po qday LEVOFLOXACIN 16794109485 No Longer Active Austin Albarado MD Active PREDNISONE 20 MG TAB 2 tablets today, then 1 tablet by mouth days 2-5 PREDNISONE 83226595057 No Longer Active Austin Albarado MD Active AZITHROMYCIN 500 MG SOLR 1 po q day AZITHROMYCIN 91237748510 No Longer Active Austin Albarado MD Active KEFLEX 500 MG CAP 1 po TID x 7 days CEPHALEXIN 05389114550 No Longer Active Tristna Vaughn MD Active EQL VISION FORMULA TABS 1 TAB PO DAILY MULTIPLE VITAMINS-MINERALS 63267923189 No Longer Active Tristan Vaughn MD Active CHANTIX STARTING MONTH ELVIS 0.5 MG X 11 & 1 MG X 42 TABS 0.5mg daily for 3 days , then 0.5mg BID for 4 days, then 1mg BID VARENICLINE TARTRATE 46527382025 No Longer Active Tristan Vaughn MD Active LEVOTHYROXINE SODIUM 200 MCG TABS 1 TAB PO DAILY LEVOTHYROXINE SODIUM 63446174540 No Longer Active Tristan Vaughn MD Active LIOTHYRONINE SODIUM 50 MCG TABS take 1 tab po qday for hypothyroidism LIOTHYRONINE SODIUM 59283911597 No Longer Active Austin Albarado MD Active SYNTHROID 0.025 MG TAB 1 tablet by mouth daily LEVOTHYROXINE SODIUM 69871971641 No Longer Active Austin Albarado MD Active ARMOUR THYROID 120 MG TABS take 1 tab po qday for hypothyroidism THYROID 15568458685 Active Austin Albarado MD Active FLONASE 50 MCG/ACT SUSP 1 spray each nostril am and hs FLUTICASONE PROPIONATE Active Simona Galloway APRN Active ZITHROMAX 1 GM PACK DIRECTED AZITHROMYCIN 50296456582 No Longer Active Austin Albarado MD Active PREDNISONE 20 MG TAB 2 tabs daily for 3 days, 1 tab daily for 3 days, 1/2 tab daily for 2 days PREDNISONE 78078093377 No Longer Active Austin Albarado MD Active ZITHROMAX 250 MG TAB 2 po today, then 1 po q days 2-5 AZITHROMYCIN 01376643192 No Longer Active Austin Albarado MD Active NYSTATIN-TRIAMCINOLONE 510488-8.1 UNIT/GM-% OINT Apply to affected area TID NYSTATIN-TRIAMCINOLONE 84639367907 Active Austin Albarado MD Active ADVAIR DISKUS 500-50 MCG/DOSE AEPB ONE INH BID FLUTICASONE- SALMETEROL 60230149637 Active Austin Albarado MD Active ZITHROMAX 1 GM PACK DIRECTED ZITHROMAX 1 GM PACK 796231 AZITHROMYCIN Inactive SYNTHROID 0.025 MG TAB 1 tablet by mouth daily SYNTHROID 0.025 MG TAB 581214 LEVOTHYROXINE SODIUM Inactive LIOTHYRONINE SODIUM 50 MCG TABS take 1 tab po qday for hypothyroidism LIOTHYRONINE SODIUM 50 MCG TABS 722213 LIOTHYRONINE SODIUM Inactive LEVOTHYROXINE SODIUM 200 MCG TABS 1 TAB PO DAILY LEVOTHYROXINE SODIUM 200 MCG TABS 122925 LEVOTHYROXINE SODIUM Inactive CHANTIX STARTING MONTH ELVIS [...] po q day AZITHROMYCIN 500 MG SOLR 63281204291 AZITHROMYCIN Inactive PREDNISONE 20 MG TAB 2 tablets today, then 1 tablet by mouth days 2-5 PREDNISONE 20 MG TAB 382109 PREDNISONE Inactive TORSEMIDE 20 MG TABS 1 TAB PO BID TORSEMIDE 20 MG TABS 744679 TORSEMIDE Inactive ALBUTEROL SULFATE (2.5 MG/3ML) 0.083% NEBU nebulize 1 vial q 4-6 hours prn shortness of breath ALBUTEROL SULFATE (2.5 MG/3ML) 0.083% NEBU 370819 ALBUTEROL SULFATE Inactive LEVAQUIN 500 MG TAB 1 tablet by mouth daily LEVAQUIN 500 MG TAB 740742 LEVOFLOXACIN Inactive PREDNISONE 20 MG TAB 2 tabs daily for 4 days, 1 tab daily for 4 days, 1/2 tab daily for 4 days PREDNISONE 20 MG TAB 585055 PREDNISONE Inactive ZITHROMAX 1 GM ORAL PACK DIRECTED ZITHROMAX 1 GM ORAL PACK 846677 AZITHROMYCIN Inactive LEVAQUIN 500 MG TAB 1 tablet by mouth daily for 10 days. LEVAQUIN 500 MG TAB 179307 LEVOFLOXACIN Inactive PREDNISONE 20 MG ORAL TABS 3 TABS PO FOR 3 DAYS,THAN 2 TABS FOR 3 DAYS THAN, 1 TAB FOR 3 DAYS THAN, 1/2 TAB FOR 3 DAYS. PREDNISONE 20 MG ORAL TABS 993729 PREDNISONE Inactive PREDNISONE 20 MG ORAL TABS 3 daily for 3 days than, 2 tabs daily for 3 days than, 2 tabs daily for 3 days than, 1 tab daily for 3 days than 1/2 tab daily for 3 days. PREDNISONE 20 MG ORAL TABS 837425 PREDNISONE Inactive AMOXICILLIN 500 MG ORAL TABS Take one by mouth 3 times daily, morning, afternoon and evening.] AMOXICILLIN 500 MG ORAL TABS 374851 AMOXICILLIN Inactive LEVAQUIN 500 MG TAB 1 tablet by mouth daily LEVAQUIN 500 MG TAB 690725 LEVOFLOXACIN Inactive LEVAQUIN 500 MG TAB 1 tablet by mouth daily LEVAQUIN 500 MG TAB 623479 LEVOFLOXACIN Inactive PREDNISONE 20 MG ORAL TABS 3 tabs po for 3 days than,2 tabs po for 3 days,1 tab po for 3 days, 1/2 tab po for 3 days. PREDNISONE 20 MG ORAL TABS 199400 PREDNISONE Inactive ZITHROMAX 250 MG TAB 2 po today, then 1 po q days 2-5 ZITHROMAX 250 MG TAB 0329970 AZITHROMYCIN Inactive PREDNISONE 20 MG TAB 2 tabs daily for 3 days, 1 tab daily for 3 days, 1/2 tab daily for 2 days PREDNISONE 20 MG TAB 521856 PREDNISONE Inactive KEFLEX 500 MG CAP 1 po TID x 7 days KEFLEX 500 MG CAP 008356 CEPHALEXIN Inactive LEVOFLOXACIN 500 MG ORAL TABS take 1 tab po qday LEVOFLOXACIN 500 MG ORAL TABS 225142 LEVOFLOXACIN Inactive PREDNISONE 20 MG TAB 2 tabs daily for 3 days, 1 tab daily for 3 days, 1/2 tab daily for 2 days PREDNISONE 20 MG TAB 750932 PREDNISONE Inactive DOXYCYCLINE HYCLATE 100 MG CAP 1 cap by mouth twice daily DOXYCYCLINE HYCLATE 100 MG CAP 0448609 DOXYCYCLINE HYCLATE Inactive PREDNISONE 20 MG TAB take 3 tabs daily for 3 days, 2 tabs daily for 3 days, 1 tab daily for 3 days, 1/2 tab daily for 3 days PREDNISONE 20 MG TAB 453743 PREDNISONE Inactive PREDNISONE 20 MG TAB take 3 tabs daily for 3 days, 2 tabs daily for 3 days, 1 tab daily for 3 days, 1/2 tab daily for 3 days PREDNISONE 20 MG TAB 870000 PREDNISONE Inactive PREDNISONE 20 MG TAB take 3 tabs daily for 3 days, 2 tabs daily for 3 days, 1 tab daily for 3 days, 1/2 tab daily for 3 days PREDNISONE 20 MG TAB 467042 PREDNISONE Inactive ACYCLOVIR 400 MG TABS 1 pill three times daily ACYCLOVIR 400 MG TABS 060758 ACYCLOVIR Inactive ACYCLOVIR 400 MG TABS 1 pill three times daily ACYCLOVIR 400 MG TABS 011752 ACYCLOVIR Inactive KEFLEX 500 MG CAP 1 po BID x 7 days KEFLEX 500 MG CAP 274394 CEPHALEXIN Inactive Advance Directives Directive Description Start [...] Peptide - Chemistry sodium, serum 140 mmol/L 271-279 1239/02/09 carbon dioxide, venous blood 39.2 mmol/L 21.0-32.0 [...] 0.00-1.00 Encounters Code Encounter Date Provider Facility CPT-60579 Level 3 Est. Patient 16:07:19 CDT Simona Galloway APRN [facility] CPT-63101 Level 4 Est. Patient 13:31:03 CDT Austin Albarado MD [facility] CPT-10265 Level 4 Est. Patient 17:54:41 SPIRAL WEAVER Austin Albarado MD [facility] CPT-59750 Level 4 Est. Patient 16:11:14 SPIRAL WEAVER Austin Albarado MD [facility] CPT-80750 Level 4 Est. Patient 23:08:56 CDT Austin Albarado MD [facility] CPT-28987 Level 4 Est. Patient 13:27:28 CDT Garcia Stroud MD [facility] CPT-25514 Level 4 Est. Patient 10:51:20 CDT Austin Albarado MD [facility] CPT-71284 Level 4 Est. Patient 20:09:43 SPIRAL WEAVER Austin Albarado MD [facility] CPT-71431 Level 4 Est. Patient 21:00:28 CDT Austin Albarado MD [facility] CPT-36128 Level 4 Est. Patient 10:03:37 CDT Austin Albarado MD [facility] CPT-90552 Level 3 Est. Patient 10:50:28 SPIRAL WEAVER Austin Albarado MD [facility] CPT-86010 Level 4 Est. Patient 21:31:41 SPIRAL WEAVER Austin Albarado MD [facility] CPT-35972 Level 3 Est. Patient 16:22:54 SPIRAL WEAVER Jann Law DO [facility] CPT-55696 Level 3 Est. Patient 11:04:53 SPIRAL WEAVER Tristan Vaughn MD [facility] CPT-76656 Level 4 Est. Patient 09:50:59 CDT Austin Albarado MD [facility] CPT-95773 Level 4 Est. Patient 09:29:00 CDT Austin Albarado MD [facility] CPT-54300 Level 4 Est. Patient 14:23:07 CDT Austin Albarado MD [facility] CPT-79840 Level 4 Est. Patient 14:27:26 CDT Austin Albarado MD [facility] CPT-87475 Level 4 Est. Patient 12:51:43 SPIRAL WEAVER Austin Albarado MD [facility] CPT-10859 Level 3 New Patient 14:17:38 SPIRAL WEAVER Austin Albarado MD [facility] CPT-68014 Level 3 New Patient 11:28:18 SPIRAL WEAVER Austin Albarado MD [facility] Procedures Code Procedure Name Date Entry Date Standard Description CPT-G0439 MC Subsequent Annual Wellness Exam 08:13:24 CDT CPT-TCMM Transitional Care Mgmt-Moderate 14:53:36 SPIRAL WEAVER CPT-84348 No Charge Offi Visit 10:19:33 SPIRAL WEAVER CPT-10873 Chest 2V Frontal and Lat - XRAY USE ONLY 15:01:41 SPIRAL WEAVER CPT-19090 First Vx - Ix admin for Medicare patients 16:00:49 CDT CPT-64539 Fluzone High-Dose Intramuscular Suspension 16:00:49 CDT CPT-G0009 Administration of Pneumococcal Vaccine 13:25:27 CDT CPT-77732 Prevnar 13 Intramuscular Suspension 13:25:27 CDT 09/26 CPT-G0438 Initial Annual Wellness Exam 11:28:26 CDT CPT-74410 Chest 2V Frontal and Lat 15:00:00 SPIRAL WEAVER CPT-09778 Breathing Tx 14:49:25 SPIRAL WEAVER CPT-96188 Fluzone High Dose 15:08:41 SPIRAL WEAVER CPT-54009 Immunization Single Admin 15:08:41 SPIRAL WEAVER CPT-43647 Fluzone High Dose 17:31:19 CDT CPT-68849 Administration single or combination vaccine inc oral 17 :31:19 CDT CPT-21613 Venipuncture Draw Fee 11:03:05 CDT CPT-TCMM Transitional Care Mgmt-Moderate 16:32:35 CDT CPT-45247 Chest 2V Frontal and Lat 11:51:09 CDT CPT-G0008 Administration of Influenza Virus Vaccine 15:09:08 CDT CPT-02168 Fluzone High-Dose Intramuscular Suspension 15:09:08 CDT CPT-37963 Administration single or combination vaccine inc oral 17 :07:02 SPIRAL WEAVER CPT-15697 Influenza High Dose age 65+ 17:07:02 SPIRAL WEAVER
--- OUTSIDE RECORDS SUMMARY | 2017-02-27 22:04 | XMS REPORT | Clinical Summary ---
Author Author Admin, DILLONE Organization Code Climate Address Unknown Phone Unavailable Allergies, Adverse Reactions, [...] Coronary atherosclerosis of unspecified type of vessel, [place] or graft U R I ICD-465.9 Inactive Austin Albarado MD 06/13 Bronchitis-Acute ICD-466.0 Inactive Austin Albarado MD Medication List Medication Instructions Start Date Stop Date Generic Name NDC Status Provider Patient Instruction FUROSEMIDE 20 MG TABS take 1 tab po BID for swelling FUROSEMIDE 31656784601 Active Austin Albarado MD Active LEVAQUIN 500 MG TAB 1 tablet by mouth daily LEVOFLOXACIN 40139541294 Active Mica Sneed Active PREDNISONE 20 MG ORAL TABS 3 tabs po for 3 days than,2 tabs po for 3 days,1 tab po for 3 days, 1/2 tab po for 3 days. PREDNISONE 55773107433 Active Madhavi Fiore Active AMOXICILLIN 500 MG ORAL TABS Take one by mouth 3 times daily, morning, afternoon and evening.] AMOXICILLIN 43840230064 No Longer Active Garcia Stroud MD Active PREDNISONE 20 MG ORAL TABS 3 daily for 3 days than, 2 tabs daily for 3 days than, 2 tabs daily for 3 days than, 1 tab daily for 3 days than 1/2 tab daily for 3 days. PREDNISONE 77593645610 No Longer Active Tracie Arrington APRN Active FLUTICASONE PROPIONATE 50 MCG/ACT SUSP 1 to 2 sprays each nostril daily 08/21 FLUTICASONE PROPIONATE 64987177481 Active Simona Galloway APRN Active PREDNISONE 10 MG TAB take 1 tab po qday for severe COPD PREDNISONE 22314555376 Active Austin Albarado MD Active PREDNISONE 20 MG ORAL TABS 3 TABS PO FOR 3 DAYS,THAN 2 TABS FOR 3 DAYS THAN, 1 TAB FOR 3 DAYS THAN, 1/2 TAB FOR 3 DAYS. PREDNISONE 74365280227 No Longer Active Austin Albarado MD Active LEVAQUIN 500 MG TAB 1 tablet by mouth daily for 10 days. LEVOFLOXACIN 94919330747 No Longer Active Austin Albarado MD Active PREDNISONE 20 MG TAB take 3 tabs daily for 3 days, 2 tabs daily for 3 days, 1 tab daily for 3 days, 1/2 tab daily for 3 days PREDNISONE 26482942122 No Longer Active Simona Galloway APRN Active ZITHROMAX 1 GM ORAL PACK DIRECTED AZITHROMYCIN 00172469783 No Longer Active Simona Galloway APRN Active PREDNISONE 20 MG TAB 2 tabs daily for 4 days, 1 tab daily for 4 days, 1/2 tab daily for 4 days PREDNISONE 58891342319 No Longer Active Austin Albarado MD Active LEVAQUIN 500 MG TAB 1 tablet by mouth daily LEVOFLOXACIN 59837557220 No Longer Active Austin Albarado MD Active PREDNISONE 20 MG TAB take 3 tabs daily for 3 days, 2 tabs daily for 3 days, 1 tab daily for 3 days, 1/2 tab daily for 3 days PREDNISONE 35880748337 No Longer Active Austin Albarado MD Active DOXYCYCLINE HYCLATE 100 MG CAP 1 cap by mouth twice daily DOXYCYCLINE HYCLATE 19216272855 No Longer Active Esperanza Modi APRN Active ALBUTEROL SULFATE (2.5 MG/3ML) 0.083% NEBU nebulize 1 vial q 4-6 hours prn shortness of breath ALBUTEROL SULFATE 53438060507 No Longer Active Esperanza Modi APRN Active TORSEMIDE 20 MG TABS 1 TAB PO BID TORSEMIDE 03947762227 No Longer Active Jirufus Modi APRN Active PREDNISONE 20 MG TAB 2 tabs daily for 3 days, 1 tab daily for 3 days, 1/2 tab daily for 2 days PREDNISONE 91406952968 No Longer Active Austin Albarado MD Active LEVOFLOXACIN 500 MG ORAL TABS take 1 tab po qday LEVOFLOXACIN 26055799424 No Longer Active Austin Albarado MD Active PREDNISONE 20 MG TAB 2 tablets today, then 1 tablet by mouth days 2-5 PREDNISONE 63125266881 No Longer Active Austin Albarado MD Active AZITHROMYCIN 500 MG SOLR 1 po q day AZITHROMYCIN 96791087215 No Longer Active Austin Albarado MD Active KEFLEX 500 MG CAP 1 po TID x 7 days CEPHALEXIN 25892051319 No Longer Active Tristan Vaughn MD Active EQL VISION FORMULA TABS 1 TAB PO DAILY MULTIPLE VITAMINS-MINERALS 90808211948 No Longer Active Tristan Vaughn MD Active CHANTIX STARTING MONTH ELVIS 0.5 MG X 11 & 1 MG X 42 TABS 0.5mg daily for 3 days , then 0.5mg BID for 4 days, then 1mg BID VARENICLINE TARTRATE 41810273752 No Longer Active Tristan Vaughn MD Active LEVOTHYROXINE SODIUM 200 MCG TABS 1 TAB PO DAILY LEVOTHYROXINE SODIUM 18144732645 No Longer Active Tristan Vaughn MD Active LIOTHYRONINE SODIUM 50 MCG TABS take 1 tab po qday for hypothyroidism LIOTHYRONINE SODIUM 94481941422 No Longer Active Austin Albarado MD Active SYNTHROID 0.025 MG TAB 1 tablet by mouth daily LEVOTHYROXINE SODIUM 74161736087 No Longer Active Austin Albarado MD Active ARMOUR THYROID 120 MG TABS take 1 tab po qday for hypothyroidism THYROID 81166398240 Active Austin Albarado MD Active FLONASE 50 MCG/ACT SUSP 1 spray each nostril am and hs FLUTICASONE PROPIONATE Active Simona Galloway APRN Active ZITHROMAX 1 GM PACK DIRECTED AZITHROMYCIN 22382528981 No Longer Active Austin Albarado MD Active PREDNISONE 20 MG TAB 2 tabs daily for 3 days, 1 tab daily for 3 days, 1/2 tab daily for 2 days PREDNISONE 59033403715 No Longer Active Austin Albarado MD Active ZITHROMAX 250 MG TAB 2 po today, then 1 po q days 2-5 AZITHROMYCIN 50238967415 No Longer Active Austin Albarado MD Active NYSTATIN-TRIAMCINOLONE 577791-4.1 UNIT/GM-% OINT Apply to affected area TID NYSTATIN-TRIAMCINOLONE 86073586497 Active Austin Albarado MD Active IPRATROPIUM-ALBUTEROL 0.5-2.5 (3) MG/3ML SOLN 1 VIAL NEB Q 6 HRS PRN IPRATROPIUM-ALBUTEROL 89864674412 Active Simona Galloway APRN Active PROAIR HFA 108 (90 BASE) MCG/ACT AERS take 1-2 puffs q4hrs prn cough/ SOB ALBUTEROL SULFATE 06885235277 Active Austin Albarado MD Active ADVAIR DISKUS 500-50 MCG/DOSE AEPB ONE INH BID FLUTICASONE- SALMETEROL 19052601351 Active Austin Albarado MD Active ZITHROMAX 1 GM PACK DIRECTED ZITHROMAX 1 GM PACK 422668 AZITHROMYCIN Inactive SYNTHROID 0.025 MG TAB 1 tablet by mouth daily SYNTHROID 0.025 MG TAB 957896 LEVOTHYROXINE SODIUM Inactive LIOTHYRONINE SODIUM 50 MCG TABS take 1 tab po qday for hypothyroidism LIOTHYRONINE SODIUM 50 MCG TABS 066459 LIOTHYRONINE SODIUM Inactive LEVOTHYROXINE SODIUM 200 MCG TABS 1 TAB PO DAILY LEVOTHYROXINE SODIUM 200 MCG TABS 362168 LEVOTHYROXINE SODIUM Inactive CHANTIX STARTING MONTH ELVIS [...] po q day AZITHROMYCIN 500 MG SOLR 78548549167 AZITHROMYCIN Inactive PREDNISONE 20 MG TAB 2 tablets today, then 1 tablet by mouth days 2-5 PREDNISONE 20 MG TAB 068433 PREDNISONE Inactive TORSEMIDE 20 MG TABS 1 TAB PO BID TORSEMIDE 20 MG TABS 997195 TORSEMIDE Inactive ALBUTEROL SULFATE (2.5 MG/3ML) 0.083% NEBU nebulize 1 vial q 4-6 hours prn shortness of breath ALBUTEROL SULFATE (2.5 MG/3ML) 0.083% NEBU 577494 ALBUTEROL SULFATE Inactive LEVAQUIN 500 MG TAB 1 tablet by mouth daily LEVAQUIN 500 MG TAB 007351 LEVOFLOXACIN Inactive PREDNISONE 20 MG TAB 2 tabs daily for 4 days, 1 tab daily for 4 days, 1/2 tab daily for 4 days PREDNISONE 20 MG TAB 835469 PREDNISONE Inactive ZITHROMAX 1 GM ORAL PACK DIRECTED ZITHROMAX 1 GM ORAL PACK 625803 AZITHROMYCIN Inactive LEVAQUIN 500 MG TAB 1 tablet by mouth daily for 10 days. LEVAQUIN 500 MG TAB 074877 LEVOFLOXACIN Inactive PREDNISONE 20 MG ORAL TABS 3 TABS PO FOR 3 DAYS,THAN 2 TABS FOR 3 DAYS THAN, 1 TAB FOR 3 DAYS THAN, 1/2 TAB FOR 3 DAYS. PREDNISONE 20 MG ORAL TABS 958759 PREDNISONE Inactive PREDNISONE 20 MG ORAL TABS 3 daily for 3 days than, 2 tabs daily for 3 days than, 2 tabs daily for 3 days than, 1 tab daily for 3 days than 1/2 tab daily for 3 days. PREDNISONE 20 MG ORAL TABS 313808 PREDNISONE Inactive AMOXICILLIN 500 MG ORAL TABS Take one by mouth 3 times daily, morning, afternoon and evening.] AMOXICILLIN 500 MG ORAL TABS 490235 AMOXICILLIN Inactive ZITHROMAX 250 MG TAB 2 po today, then 1 po q days 2-5 ZITHROMAX 250 MG TAB 1947914 AZITHROMYCIN Inactive PREDNISONE 20 MG TAB 2 tabs daily for 3 days, 1 tab daily for 3 days, 1/2 tab daily for 2 days PREDNISONE 20 MG TAB 338311 PREDNISONE Inactive KEFLEX 500 MG CAP 1 po TID x 7 days KEFLEX 500 MG CAP 065444 CEPHALEXIN Inactive LEVOFLOXACIN 500 MG ORAL TABS take 1 tab po qday LEVOFLOXACIN 500 MG ORAL TABS 153091 LEVOFLOXACIN Inactive PREDNISONE 20 MG TAB 2 tabs daily for 3 days, 1 tab daily for 3 days, 1/2 tab daily for 2 days PREDNISONE 20 MG TAB 061691 PREDNISONE Inactive DOXYCYCLINE HYCLATE 100 MG CAP 1 cap by mouth twice daily DOXYCYCLINE HYCLATE 100 MG CAP 4836540 DOXYCYCLINE HYCLATE Inactive PREDNISONE 20 MG TAB take 3 tabs daily for 3 days, 2 tabs daily for 3 days, 1 tab daily for 3 days, 1/2 tab daily for 3 days PREDNISONE 20 MG TAB 003582 PREDNISONE Inactive PREDNISONE 20 MG TAB take 3 tabs daily for 3 days, 2 tabs daily for 3 days, 1 tab daily for 3 days, 1/2 tab daily for 3 days PREDNISONE 20 MG TAB 351047 PREDNISONE Inactive Advance Directives Directive Description Start [...] 43.52 m[iU]/mL 0.36-3.74 sodium, serum 140 mmol/L 437-999 7798/04/06 carbon dioxide, venous blood 36.3 mmol/L 21.0-32.0 potassium, serum 4.9 mmol/L 3.5-5.2 chloride, serum 100 mmol/L 98-107 blood glucose 62 mg/dL 65-110 urea nitrogen, blood 24 mg/dL 7-18 creatinine, serum 1.09 mg/dL 0.55-1.30 alanine aminotransferase (SGPT), serum 44 U/L 12-78 aspartate aminotransferase (SGOT), serum 25 U/L 15-37 calcium, serum 8.7 mg/dL 8.5-10.1 bilirubin, serum, total 0.50 mg/dL 0.00-1.00 cholesterol, serum 189 mg/dL 619-157 9622/04/06 triglyceride, serum, fasting 117 mg/dL 30-200 HDL [...] 142-424 Encounters Code Encounter Date Provider Facility CPT-92678 Level 4 Est. Patient 23:08:56 CDT Austin Albarado MD [facility] CPT-24752 Level 4 Est. Patient 13:27:28 CDT Garcia Stroud MD [facility]-75693 Level 4 Est. Patient 10:51:20 CDT Austin Albarado MD [facility] CPT-01400 Level 4 Est. Patient 20:09:43 CARDIOLOGY SPECIALIST Austin Albarado MD [facility] CPT-32608 Level 4 Est. Patient 21:00:28 CDT Austin Albarado MD [facility] CPT-13575 Level 4 Est. Patient 10:03:37 CDT Austin Albarado MD [facility] CPT-58563 Level 3 Est. Patient 10:50:28 CARDIOLOGY SPECIALIST Austin Albarado MD [facility] CPT-92637 Level 4 Est. Patient 21:31:41 CARDIOLOGY SPECIALIST Austin Albarado MD [facility] CPT-79362 Level 3 Est. Patient 16:22:54 CARDIOLOGY SPECIALIST Jann Law DO [facility] CPT-69812 Level 3 Est. Patient 11:04:53 CARDIOLOGY SPECIALIST Tristan Vaughn MD [facility] CPT-62460 Level 4 Est. Patient 09:50:59 CDT Austin Albarado MD [facility] CPT-68148 Level 4 Est. Patient 09:29:00 CDT Austin Albarado MD [facility] CPT-44210 Level 4 Est. Patient 14:23:07 CDT Austin Albarado MD [facility] CPT-20782 Level 4 Est. Patient 14:27:26 CDT Austin Albarado MD [facility] CPT-24142 Level 4 Est. Patient 12:51:43 CARDIOLOGY SPECIALIST Austin Albarado MD [facility] CPT-16362 Level 3 New Patient 14:17:38 CARDIOLOGY SPECIALIST Austin Albarado MD [facility] CPT-02681 Level 3 New Patient 11:28:18 CARDIOLOGY SPECIALIST Austin Albarado MD [facility] Procedures Code Procedure Name Date Entry Date Standard Description CPT-64615 First Vx - Ix admin for Medicare patients 16:00:49 CDT CPT-16978 Fluzone High-Dose Intramuscular Suspension 16:00:49 CDT CPT-G0009 Administration of Pneumococcal Vaccine 13:25:27 CDT CPT-31008 Prevnar 13 Intramuscular Suspension 13:25:27 CDT 09/26 CPT-G0438 Initial Annual Wellness Exam 11:28:26 CDT CPT-69683 Chest 2V Frontal and Lat 15:00:00 CARDIOLOGY SPECIALIST CPT-97963 Breathing Tx 14:49:25 CARDIOLOGY SPECIALIST CPT-53465 Fluzone High Dose 15:08:41 CARDIOLOGY SPECIALIST CPT-35124 Immunization Single Admin 15:08:41 CARDIOLOGY SPECIALIST CPT-58101 Fluzone High Dose 17:31:19 CDT CPT-95334 Administration single or combination vaccine inc oral 17 :31:19 CDT CPT-99480 Venipuncture Draw Fee 11:03:05 CDT CPT-TCMM Transitional Care Mgmt-Moderate 16:32:35 CDT CPT-68199 Chest 2V Frontal and Lat 11:51:09 CDT CPT-G0008 Administration of Influenza Virus Vaccine 15:09:08 CDT CPT-88811 Fluzone High-Dose Intramuscular Suspension 15:09:08 CDT CPT-08530 Administration single or combination vaccine inc oral 17 :07:02 CARDIOLOGY SPECIALIST CPT-37036 Influenza High Dose age 65+ 17:07:02 CARDIOLOGY SPECIALIST
--- OUTSIDE RECORDS SUMMARY | 2017-02-27 22:05 | XMS REPORT | Clinical Summary ---
Author Author Admin, E Organization [facility] [employer] Address Unknown Phone Unavailable Allergies, Adverse Reactions, [...] Coronary atherosclerosis of unspecified type of vessel, [place] or graft Peripheral edema 782.3 Active Austin [...] Q 6 hrs prn DX: J44.9 IPRATROPIUM-ALBUTEROL 32242038626 Active Mackenzie Sher RMA Active IPRATROPIUM BROMIDE 0.02 % INH SOLN 1 q 6 hr PRN Dx: J44.1 12/29 IPRATROPIUM BROMIDE 79993096517 No Longer Active Mackenzie Christos RMA Active ACYCLOVIR 400 MG TABS 1 pill three times daily ACYCLOVIR 59752594741 No Longer Active Austin Albarado MD Active POTASSIUM CHLORIDE ER 20 MEQ ORAL CR-TABS 1 po BID along with the lasix 12/24 POTASSIUM CHLORIDE 55805979820 Active Austin Albarado MD Active FUROSEMIDE 40 MG TAB 1 tablet by mouth BID for swelling FUROSEMIDE 86101512810 Active Austin Albarado MD Active CELEXA 20 MG TABS 1 tablet by mouth daily CITALOPRAM HYDROBROMIDE 93342245566 Active Austin Albarado MD Active KEFLEX 500 MG CAP 1 po BID x 7 days CEPHALEXIN 49802902825 No Longer Active Mica Sneed Active KEFLEX 500 MG CAP 1 po BID x 7 days CEPHALEXIN 18688590274 No Longer Active Simona Galloway APRN Active ACYCLOVIR 400 MG TABS 1 pill three times daily ACYCLOVIR 45041075246 No Longer Active Austin Albarado MD Active ACYCLOVIR 400 MG TABS 1 pill three times daily ACYCLOVIR 38430317833 No Longer Active Austin Albarado MD Active ALBUTEROL SULFATE 0.083 % NEBU SOLN one vial per nebulizer every 4 hours as needed Dx. J44.1 ALBUTEROL SULFATE 64289157514 Active Austin Albarado MD Active PROAIR HFA 108 (90 BASE) MCG/ACT AERS take 1-2 puffs q 4-6 hrs prn cough/ SOB ALBUTEROL SULFATE 36176388668 Active Nella José LPN Active IPRATROPIUM-ALBUTEROL 0.5-2.5 (3) MG/3ML SOLN 1 VIAL NEB Q 4-6 HRS PRN 04/18 IPRATROPIUM-ALBUTEROL 96503206297 No Longer Active Austin Albarado MD Active ATIVAN 0.5 MG TAB 1 po QD PRN Anxiety LORAZEPAM 12391984180 Active Austin Albarado MD Active PREDNISONE 20 MG ORAL TABS 3 tabs po for 3 days than,2 tabs po for 3 days,1 tab po for 3 days, 1/2 tab po for 3 days. PREDNISONE 04667004122 No Longer Active Simona Galloway APRN Active LEVAQUIN 500 MG TAB 1 tablet by mouth daily LEVOFLOXACIN 62784928594 No Longer Active Simona Galloway APRN Active PREDNISONE 20 MG TAB take 3 tabs daily for 3 days, 2 tabs daily for 3 days, 1 tab daily for 3 days, 1/2 tab daily for 3 days PREDNISONE 29559816506 No Longer Active Austin Albarado MD Active LEVAQUIN 500 MG TAB 1 tablet by mouth daily LEVOFLOXACIN 82370399937 No Longer Active Madhavi Macarena Active FUROSEMIDE 20 MG TABS take 1 tab po BID for swelling FUROSEMIDE 39935778779 Active Austin Albarado MD Active AMOXICILLIN 500 MG ORAL TABS Take one by mouth 3 times daily, morning, afternoon and evening.] AMOXICILLIN 02810018361 No Longer Active Garcia Stroud MD Active PREDNISONE 20 MG ORAL TABS 3 daily for 3 days than, 2 tabs daily for 3 days than, 2 tabs daily for 3 days than, 1 tab daily for 3 days than 1/2 tab daily for 3 days. PREDNISONE 06841906330 No Longer Active Tracie Arrington APRN Active FLUTICASONE PROPIONATE 50 MCG/ACT SUSP 1 to 2 sprays each nostril daily 08/21 FLUTICASONE PROPIONATE 85599780402 Active Austin Albarado MD Active PREDNISONE 10 MG TAB take 1 tab po qday for severe COPD PREDNISONE 17631721931 Active Austin Albarado MD Active PREDNISONE 20 MG ORAL TABS 3 TABS PO FOR 3 DAYS,THAN 2 TABS FOR 3 DAYS THAN, 1 TAB FOR 3 DAYS THAN, 1/2 TAB FOR 3 DAYS. PREDNISONE 43952372092 No Longer Active Austin Albarado MD Active LEVAQUIN 500 MG TAB 1 tablet by mouth daily for 10 days. LEVOFLOXACIN 64082112586 No Longer Active Austin Albarado MD Active PREDNISONE 20 MG TAB take 3 tabs daily for 3 days, 2 tabs daily for 3 days, 1 tab daily for 3 days, 1/2 tab daily for 3 days PREDNISONE 39989803344 No Longer Active Simona Galloway APRN Active ZITHROMAX 1 GM ORAL PACK DIRECTED AZITHROMYCIN 05357822954 No Longer Active Simona Galloway APRN Active PREDNISONE 20 MG TAB 2 tabs daily for 4 days, 1 tab daily for 4 days, 1/2 tab daily for 4 days PREDNISONE 96437346847 No Longer Active Austin Albarado MD Active LEVAQUIN 500 MG TAB 1 tablet by mouth daily LEVOFLOXACIN 09266143156 No Longer Active Austin Albarado MD Active PREDNISONE 20 MG TAB take 3 tabs daily for 3 days, 2 tabs daily for 3 days, 1 tab daily for 3 days, 1/2 tab daily for 3 days PREDNISONE 70864437906 No Longer Active Austin Albarado MD Active DOXYCYCLINE HYCLATE 100 MG CAP 1 cap by mouth twice daily DOXYCYCLINE HYCLATE 66307441778 No Longer Active Esperanza Modi APRN Active ALBUTEROL SULFATE (2.5 MG/3ML) 0.083% NEBU nebulize 1 vial q 4-6 hours prn shortness of breath ALBUTEROL SULFATE 77870224075 No Longer Active Esperanza Modi APRN Active TORSEMIDE 20 MG TABS 1 TAB PO BID TORSEMIDE 24327413913 No Longer Active Esperanza Modi JESSI Active PREDNISONE 20 MG TAB 2 tabs daily for 3 days, 1 tab daily for 3 days, 1/2 tab daily for 2 days PREDNISONE 56606074047 No Longer Active Austin Albarado MD Active LEVOFLOXACIN 500 MG ORAL TABS take 1 tab po qday LEVOFLOXACIN 81235616349 No Longer Active Austin Albarado MD Active PREDNISONE 20 MG TAB 2 tablets today, then 1 tablet by mouth days 2-5 PREDNISONE 14745170522 No Longer Active Austin Albarado MD Active AZITHROMYCIN 500 MG SOLR 1 po q day AZITHROMYCIN 50692036897 No Longer Active Austin Albarado MD Active KEFLEX 500 MG CAP 1 po TID x 7 days CEPHALEXIN 53211768906 No Longer Active Tristan Vaughn MD Active EQL VISION FORMULA TABS 1 TAB PO DAILY MULTIPLE VITAMINS-MINERALS 79149143096 No Longer Active Tristan Vaughn MD Active CHANTIX STARTING MONTH ELVIS 0.5 MG X 11 & 1 MG X 42 TABS 0.5mg daily for 3 days , then 0.5mg BID for 4 days, then 1mg BID VARENICLINE TARTRATE 17674469718 No Longer Active Tristan Vaughn MD Active LEVOTHYROXINE SODIUM 200 MCG TABS 1 TAB PO DAILY LEVOTHYROXINE SODIUM 88164452080 No Longer Active Tristan Vaughn MD Active LIOTHYRONINE SODIUM 50 MCG TABS take 1 tab po qday for hypothyroidism LIOTHYRONINE SODIUM 42183223021 No Longer Active Austin Albarado MD Active SYNTHROID 0.025 MG TAB 1 tablet by mouth daily LEVOTHYROXINE SODIUM 03015657948 No Longer Active Austin Albarado MD Active ARMOUR THYROID 120 MG TABS take 1 tab po qday for hypothyroidism THYROID 60737738504 Active Austin Albarado MD Active FLONASE 50 MCG/ACT SUSP 1 spray each nostril am and hs FLUTICASONE PROPIONATE Active Simona Galloway APRN Active ZITHROMAX 1 GM PACK DIRECTED AZITHROMYCIN 50374729574 No Longer Active Austin Albarado MD Active PREDNISONE 20 MG TAB 2 tabs daily for 3 days, 1 tab daily for 3 days, 1/2 tab daily for 2 days PREDNISONE 42516856482 No Longer Active Austin Albarado MD Active ZITHROMAX 250 MG TAB 2 po today, then 1 po q days 2-5 AZITHROMYCIN 95527836704 No Longer Active Austin Albarado MD Active NYSTATIN-TRIAMCINOLONE 439840-1.1 UNIT/GM-% OINT Apply to affected area TID NYSTATIN-TRIAMCINOLONE 19290136442 Active Austin Albarado MD Active ADVAIR DISKUS 500-50 MCG/DOSE AEPB ONE INH BID FLUTICASONE- SALMETEROL 05439452332 Active Austin Albarado MD Active ZITHROMAX 1 GM PACK DIRECTED ZITHROMAX 1 GM PACK 272841 AZITHROMYCIN Inactive SYNTHROID 0.025 MG TAB 1 tablet by mouth daily SYNTHROID 0.025 MG TAB 530876 LEVOTHYROXINE SODIUM Inactive LIOTHYRONINE SODIUM 50 MCG TABS take 1 tab po qday for hypothyroidism LIOTHYRONINE SODIUM 50 MCG TABS 267066 LIOTHYRONINE SODIUM Inactive LEVOTHYROXINE SODIUM 200 MCG TABS 1 TAB PO DAILY LEVOTHYROXINE SODIUM 200 MCG TABS 341049 LEVOTHYROXINE SODIUM Inactive CHANTIX STARTING MONTH ELVIS [...] po q day AZITHROMYCIN 500 MG SOLR 45566256311 AZITHROMYCIN Inactive PREDNISONE 20 MG TAB 2 tablets today, then 1 tablet by mouth days 2-5 PREDNISONE 20 MG TAB 877661 PREDNISONE Inactive TORSEMIDE 20 MG TABS 1 TAB PO BID TORSEMIDE 20 MG TABS 026012 TORSEMIDE Inactive ALBUTEROL SULFATE (2.5 MG/3ML) 0.083% NEBU nebulize 1 vial q 4-6 hours prn shortness of breath ALBUTEROL SULFATE (2.5 MG/3ML) 0.083% NEBU 200993 ALBUTEROL SULFATE Inactive LEVAQUIN 500 MG TAB 1 tablet by mouth daily LEVAQUIN 500 MG TAB 773356 LEVOFLOXACIN Inactive PREDNISONE 20 MG TAB 2 tabs daily for 4 days, 1 tab daily for 4 days, 1/2 tab daily for 4 days PREDNISONE 20 MG TAB 620695 PREDNISONE Inactive ZITHROMAX 1 GM ORAL PACK DIRECTED ZITHROMAX 1 GM ORAL PACK 438470 AZITHROMYCIN Inactive LEVAQUIN 500 MG TAB 1 tablet by mouth daily for 10 days. LEVAQUIN 500 MG TAB 924308 LEVOFLOXACIN Inactive PREDNISONE 20 MG ORAL TABS 3 TABS PO FOR 3 DAYS,THAN 2 TABS FOR 3 DAYS THAN, 1 TAB FOR 3 DAYS THAN, 1/2 TAB FOR 3 DAYS. PREDNISONE 20 MG ORAL TABS 006103 PREDNISONE Inactive PREDNISONE 20 MG ORAL TABS 3 daily for 3 days than, 2 tabs daily for 3 days than, 2 tabs daily for 3 days than, 1 tab daily for 3 days than 1/2 tab daily for 3 days. PREDNISONE 20 MG ORAL TABS 748630 PREDNISONE Inactive AMOXICILLIN 500 MG ORAL TABS Take one by mouth 3 times daily, morning, afternoon and evening.] AMOXICILLIN 500 MG ORAL TABS 287038 AMOXICILLIN Inactive LEVAQUIN 500 MG TAB 1 tablet by mouth daily LEVAQUIN 500 MG TAB 878421 LEVOFLOXACIN Inactive LEVAQUIN 500 MG TAB 1 tablet by mouth daily LEVAQUIN 500 MG TAB 715522 LEVOFLOXACIN Inactive PREDNISONE 20 MG ORAL TABS 3 tabs po for 3 days than,2 tabs po for 3 days,1 tab po for 3 days, 1/2 tab po for 3 days. PREDNISONE 20 MG ORAL TABS 156981 PREDNISONE Inactive IPRATROPIUM BROMIDE 0.02 % INH SOLN 1 q 6 hr PRN Dx: J44.1 12/29 IPRATROPIUM BROMIDE 0.02 % INH SOLN 890001 IPRATROPIUM BROMIDE Inactive ZITHROMAX 250 MG TAB 2 po today, then 1 po q days 2-5 ZITHROMAX 250 MG TAB 8611044 AZITHROMYCIN Inactive PREDNISONE 20 MG TAB 2 tabs daily for 3 days, 1 tab daily for 3 days, 1/2 tab daily for 2 days PREDNISONE 20 MG TAB 960441 PREDNISONE Inactive KEFLEX 500 MG CAP 1 po TID x 7 days KEFLEX 500 MG CAP 189901 CEPHALEXIN Inactive LEVOFLOXACIN 500 MG ORAL TABS take 1 tab po qday LEVOFLOXACIN 500 MG ORAL TABS 924298 LEVOFLOXACIN Inactive PREDNISONE 20 MG TAB 2 tabs daily for 3 days, 1 tab daily for 3 days, 1/2 tab daily for 2 days PREDNISONE 20 MG TAB 416968 PREDNISONE Inactive DOXYCYCLINE HYCLATE 100 MG CAP 1 cap by mouth twice daily DOXYCYCLINE HYCLATE 100 MG CAP 2930088 DOXYCYCLINE HYCLATE Inactive PREDNISONE 20 MG TAB take 3 tabs daily for 3 days, 2 tabs daily for 3 days, 1 tab daily for 3 days, 1/2 tab daily for 3 days PREDNISONE 20 MG TAB 202963 PREDNISONE Inactive PREDNISONE 20 MG TAB take 3 tabs daily for 3 days, 2 tabs daily for 3 days, 1 tab daily for 3 days, 1/2 tab daily for 3 days PREDNISONE 20 MG TAB 733157 PREDNISONE Inactive PREDNISONE 20 MG TAB take 3 tabs daily for 3 days, 2 tabs daily for 3 days, 1 tab daily for 3 days, 1/2 tab daily for 3 days PREDNISONE 20 MG TAB 972889 PREDNISONE Inactive ACYCLOVIR 400 MG TABS 1 pill three times daily ACYCLOVIR 400 MG TABS 19720518 ACYCLOVIR Inactive ACYCLOVIR 400 MG TABS 1 pill three times daily ACYCLOVIR 400 MG TABS 19720518 ACYCLOVIR Inactive KEFLEX 500 MG CAP 1 po BID x 7 days KEFLEX 500 MG CAP 958857 CEPHALEXIN Inactive KEFLEX 500 MG CAP 1 po BID x 7 days KEFLEX 500 MG CAP 039095 CEPHALEXIN Inactive ACYCLOVIR 400 MG TABS 1 [...] Peptide - Chemistry sodium, serum 140 mmol/L 487-918 4201/02/09 carbon dioxide, venous blood 39.2 mmol/L 21.0-32.0 [...] 0.00-1.00 Encounters Code Encounter Date Provider Facility CPT-51406 Level 4 Est. Patient 18:17:08 CDT Austin Albarado MD [facility] CPT-17563 Level 3 Est. Patient 16:07:19 CDT Simona Galloway APRN [facility] CPT-06941 Level 4 Est. Patient 13:31:03 CDT Austin Albarado MD [facility] CPT-22416 Level 4 Est. Patient 17:54:41 HEAD OF DATA Austin Albarado MD [facility] CPT-54309 Level 4 Est. Patient 16:11:14 HEAD OF DATA Austin Albarado MD [facility] CPT-74461 Level 4 Est. Patient 23:08:56 CDT Austin Albarado MD [facility]-75213 Level 4 Est. Patient 13:27:28 CDT Garcia Stroud MD [facility] CPT-12703 Level 4 Est. Patient 10:51:20 CDT Austin Albarado MD [facility] CPT-17534 Level 4 Est. Patient 20:09:43 HEAD OF DATA Austin Albarado MD [facility] CPT-30400 Level 4 Est. Patient 21:00:28 CDT Austin Albarado MD [facility] CPT-76386 Level 4 Est. Patient 10:03:37 CDT Austin Albarado MD [facility] CPT-87587 Level 3 Est. Patient 10:50:28 HEAD OF DATA Austin Albarado MD [facility] CPT-73906 Level 4 Est. Patient 21:31:41 HEAD OF DATA Austin Albarado MD [facility] CPT-61654 Level 3 Est. Patient 16:22:54 HEAD OF DATA Jann Law DO [facility] CPT-46549 Level 3 Est. Patient 11:04:53 HEAD OF DATA Tristan Vaughn MD [facility] CPT-01934 Level 4 Est. Patient 09:50:59 CDT Austin Albarado MD [facility] CPT-08151 Level 4 Est. Patient 09:29:00 CDT Austin Albarado MD [facility] CPT-97660 Level 4 Est. Patient 14:23:07 CDT Austin Albarado MD [facility] CPT-26866 Level 4 Est. Patient 14:27:26 CDT Austin Albarado MD [facility] CPT-12564 Level 4 Est. Patient 12:51:43 HEAD OF DATA Austin Albarado MD [facility] CPT-09750 Level 3 New Patient 14:17:38 HEAD OF DATA Austin Albarado MD [facility] CPT-14986 Level 3 New Patient 11:28:18 HEAD OF DATA Austin Albarado MD [facility] Procedures Code Procedure Name Date Entry Date Standard Description CPT-G0439 Subsequent Annual Wellness Exam 08:13:24 CDT CPT-TCMM Transitional Care Mgmt-Moderate 14:53:36 HEAD OF DATA CPT-41213 No Charge Offi Visit 10:19:33 HEAD OF DATA CPT-93813 Chest 2V Frontal and Lat - XRAY USE ONLY 15:01:41 HEAD OF DATA CPT-14383 First Vx - Ix admin for Medicare patients 16:00:49 CDT CPT-28797 Fluzone High-Dose Intramuscular Suspension 16:00:49 CDT CPT-G0009 Administration of Pneumococcal Vaccine 13:25:27 CDT CPT-97092 Prevnar 13 Intramuscular Suspension 13:25:27 CDT 09/26 CPT-G0438 Initial Annual Wellness Exam 11:28:26 CDT CPT-36678 Chest 2V Frontal and Lat 15:00:00 HEAD OF DATA CPT-98760 Breathing Tx 14:49:25 HEAD OF DATA CPT-64873 Fluzone High Dose 15:08:41 HEAD OF DATA CPT-11975 Immunization Single Admin 15:08:41 HEAD OF DATA CPT-42860 Fluzone High Dose 17:31:19 CDT CPT-27570 Administration single or combination vaccine inc oral 17 :31:19 CDT CPT-49845 Venipuncture Draw Fee 11:03:05 CDT CPT-TCMM Transitional Care Mgmt-Moderate 16:32:35 CDT CPT-81145 Chest 2V Frontal and Lat 11:51:09 CDT CPT-G0008 Administration of Influenza Virus Vaccine 15:09:08 CDT CPT-79032 Fluzone High-Dose Intramuscular Suspension 15:09:08 CDT CPT-60213 Administration single or combination vaccine inc oral 17 :07:02 HEAD OF DATA CPT-64422 Influenza High Dose age 65+ 17:07:02 HEAD OF DATA
--- OUTSIDE RECORDS SUMMARY | 2017-02-27 22:06 | XMS REPORT | Clinical Summary ---
Author Author Admin, LEE Organization [facility] Address Unknown Phone Unavailable Allergies, [...] Coronary atherosclerosis of unspecified type of vessel, [place] or graft U R I ICD-465.9 Inactive Austin Albarado MD 06/13 Bronchitis-Acute ICD-466.0 Inactive Austin Albarado MD Medication List Medication Instructions Start Date Stop Date Generic Name NDC Status Provider Patient Instruction LEVAQUIN 500 MG TAB 1 tablet by mouth daily LEVOFLOXACIN 41726960283 Active Madhavi Raida Active PREDNISONE 20 MG ORAL TABS 3 tabs po for 3 days than,2 tabs po for 3 days,1 tab po for 3 days, 1/2 tab po for 3 days. PREDNISONE 53429310629 Active Madhavi Raida Active FUROSEMIDE 20 MG TABS 2 today and tomorrow and then 1 daily as needed for swelling FUROSEMIDE 18231421182 Active Garcia Stroud MD Active AMOXICILLIN 500 MG ORAL TABS Take one by mouth 3 times daily, morning, afternoon and evening.] AMOXICILLIN 31522582204 No Longer Active Garcia Stroud MD Active PREDNISONE 20 MG ORAL TABS 3 daily for 3 days than, 2 tabs daily for 3 days than, 2 tabs daily for 3 days than, 1 tab daily for 3 days than 1/2 tab daily for 3 days. PREDNISONE 00007257540 No Longer Active Tracie Arrington APRN Active FLUTICASONE PROPIONATE 50 MCG/ACT SUSP 1 to 2 sprays each nostril daily 08/21 FLUTICASONE PROPIONATE 53212936546 Active Simona Galloway APRN Active PREDNISONE 10 MG TAB take 1 tab po qday for severe COPD PREDNISONE 47950965543 Active Austin Albarado MD Active PREDNISONE 20 MG ORAL TABS 3 TABS PO FOR 3 DAYS,THAN 2 TABS FOR 3 DAYS THAN, 1 TAB FOR 3 DAYS THAN, 1/2 TAB FOR 3 DAYS. PREDNISONE 50449197753 No Longer Active Austin Albarado MD Active LEVAQUIN 500 MG TAB 1 tablet by mouth daily for 10 days. LEVOFLOXACIN 67272905042 No Longer Active Austin Albarado MD Active PREDNISONE 20 MG TAB take 3 tabs daily for 3 days, 2 tabs daily for 3 days, 1 tab daily for 3 days, 1/2 tab daily for 3 days PREDNISONE 25493075187 No Longer Active Simona Galloway APRN Active ZITHROMAX 1 GM ORAL PACK DIRECTED AZITHROMYCIN 87062493435 No Longer Active Simona Galloway APRN Active PREDNISONE 20 MG TAB 2 tabs daily for 4 days, 1 tab daily for 4 days, 1/2 tab daily for 4 days PREDNISONE 50511511492 No Longer Active Austin Albarado MD Active LEVAQUIN 500 MG TAB 1 tablet by mouth daily LEVOFLOXACIN 38032187252 No Longer Active Austin Albarado MD Active PREDNISONE 20 MG TAB take 3 tabs daily for 3 days, 2 tabs daily for 3 days, 1 tab daily for 3 days, 1/2 tab daily for 3 days PREDNISONE 96927901843 No Longer Active Austin Albarado MD Active DOXYCYCLINE HYCLATE 100 MG CAP 1 cap by mouth twice daily DOXYCYCLINE HYCLATE 94234731749 No Longer Active Esperanza Modi APRN Active ALBUTEROL SULFATE (2.5 MG/3ML) 0.083% NEBU nebulize 1 vial q 4-6 hours prn shortness of breath ALBUTEROL SULFATE 51121302054 No Longer Active Esperanza Modi APRN Active TORSEMIDE 20 MG TABS 1 TAB PO BID TORSEMIDE 44709172915 No Longer Active Esperanza Modi APRN Active PREDNISONE 20 MG TAB 2 tabs daily for 3 days, 1 tab daily for 3 days, 1/2 tab daily for 2 days PREDNISONE 19283938299 No Longer Active Austin Albarado MD Active LEVOFLOXACIN 500 MG ORAL TABS take 1 tab po qday LEVOFLOXACIN 85497530780 No Longer Active Austin Albarado MD Active PREDNISONE 20 MG TAB 2 tablets today, then 1 tablet by mouth days 2-5 PREDNISONE 69265974655 No Longer Active Austin Albarado MD Active AZITHROMYCIN 500 MG SOLR 1 po q day AZITHROMYCIN 00145731371 No Longer Active Austin Albarado MD Active KEFLEX 500 MG CAP 1 po TID x 7 days CEPHALEXIN 71349886154 No Longer Active Tristan Vaughn MD Active EQL VISION FORMULA TABS 1 TAB PO DAILY MULTIPLE VITAMINS-MINERALS 88655434806 No Longer Active Tristan Vaughn MD Active CHANTIX STARTING MONTH ELVIS 0.5 MG X 11 & 1 MG X 42 TABS 0.5mg daily for 3 days , then 0.5mg BID for 4 days, then 1mg BID VARENICLINE TARTRATE 68030727817 No Longer Active Tristan Vaughn MD Active LEVOTHYROXINE SODIUM 200 MCG TABS 1 TAB PO DAILY LEVOTHYROXINE SODIUM 03506779677 No Longer Active Tristan Vaughn MD Active LIOTHYRONINE SODIUM 50 MCG TABS take 1 tab po qday for hypothyroidism LIOTHYRONINE SODIUM 21984315597 No Longer Active Austin Albarado MD Active SYNTHROID 0.025 MG TAB 1 tablet by mouth daily LEVOTHYROXINE SODIUM 91003965582 No Longer Active Austin Albarado MD Active ARMOUR THYROID 120 MG TABS take 1 tab po qday for hypothyroidism THYROID 29380262718 Active Austin Albarado MD Active FLONASE 50 MCG/ACT SUSP 1 spray each nostril am and hs FLUTICASONE PROPIONATE Active Simona Galloway SCRATCHER Active ZITHROMAX 1 GM PACK DIRECTED AZITHROMYCIN 33541667812 No Longer Active Austin Albarado MD Active PREDNISONE 20 MG TAB 2 tabs daily for 3 days, 1 tab daily for 3 days, 1/2 tab daily for 2 days PREDNISONE 01640745432 No Longer Active Austin Albarado MD Active ZITHROMAX 250 MG TAB 2 po today, then 1 po q days 2-5 AZITHROMYCIN 52920374339 No Longer Active Austin Albarado MD Active NYSTATIN-TRIAMCINOLONE 712734-7.1 UNIT/GM-% OINT Apply to affected area TID NYSTATIN-TRIAMCINOLONE 37474038199 Active Austin Albarado MD Active IPRATROPIUM-ALBUTEROL 0.5-2.5 (3) MG/3ML SOLN 1 VIAL NEB Q 6 HRS PRN IPRATROPIUM-ALBUTEROL 52628788225 Active Austin Albarado MD Active PROAIR HFA 108 (90 BASE) MCG/ACT AERS take 1-2 puffs q4hrs prn cough/ SOB ALBUTEROL SULFATE 24259960474 Active Austin Albarado MD Active ADVAIR DISKUS 500-50 MCG/DOSE AEPB ONE INH BID FLUTICASONE- SALMETEROL 74415820569 Active Austin Albarado MD Active ZITHROMAX 1 GM PACK DIRECTED ZITHROMAX 1 GM PACK 666910 AZITHROMYCIN Inactive SYNTHROID 0.025 MG TAB 1 tablet by mouth daily SYNTHROID 0.025 MG TAB 381471 LEVOTHYROXINE SODIUM Inactive LIOTHYRONINE SODIUM 50 MCG TABS take 1 tab po qday for hypothyroidism LIOTHYRONINE SODIUM 50 MCG TABS 405984 LIOTHYRONINE SODIUM Inactive LEVOTHYROXINE SODIUM 200 MCG TABS 1 TAB PO DAILY LEVOTHYROXINE SODIUM 200 MCG TABS 022985 LEVOTHYROXINE SODIUM Inactive CHANTIX STARTING MONTH ELVIS [...] po q day AZITHROMYCIN 500 MG SOLR 48638965646 AZITHROMYCIN Inactive PREDNISONE 20 MG TAB 2 tablets today, then 1 tablet by mouth days 2-5 PREDNISONE 20 MG TAB 597466 PREDNISONE Inactive TORSEMIDE 20 MG TABS 1 TAB PO BID TORSEMIDE 20 MG TABS 881253 TORSEMIDE Inactive ALBUTEROL SULFATE (2.5 MG/3ML) 0.083% NEBU nebulize 1 vial q 4-6 hours prn shortness of breath ALBUTEROL SULFATE (2.5 MG/3ML) 0.083% NEBU 335164 ALBUTEROL SULFATE Inactive LEVAQUIN 500 MG TAB 1 tablet by mouth daily LEVAQUIN 500 MG TAB 428263 LEVOFLOXACIN Inactive PREDNISONE 20 MG TAB 2 tabs daily for 4 days, 1 tab daily for 4 days, 1/2 tab daily for 4 days PREDNISONE 20 MG TAB 386797 PREDNISONE Inactive ZITHROMAX 1 GM ORAL PACK DIRECTED ZITHROMAX 1 GM ORAL PACK 451928 AZITHROMYCIN Inactive LEVAQUIN 500 MG TAB 1 tablet by mouth daily for 10 days. LEVAQUIN 500 MG TAB 721082 LEVOFLOXACIN Inactive PREDNISONE 20 MG ORAL TABS 3 TABS PO FOR 3 DAYS,THAN 2 TABS FOR 3 DAYS THAN, 1 TAB FOR 3 DAYS THAN, 1/2 TAB FOR 3 DAYS. PREDNISONE 20 MG ORAL TABS 772775 PREDNISONE Inactive PREDNISONE 20 MG ORAL TABS 3 daily for 3 days than, 2 tabs daily for 3 days than, 2 tabs daily for 3 days than, 1 tab daily for 3 days than 1/2 tab daily for 3 days. PREDNISONE 20 MG ORAL TABS 492073 PREDNISONE Inactive AMOXICILLIN 500 MG ORAL TABS Take one by mouth 3 times daily, morning, afternoon and evening.] AMOXICILLIN 500 MG ORAL TABS 316129 AMOXICILLIN Inactive ZITHROMAX 250 MG TAB 2 po today, then 1 po q days 2-5 ZITHROMAX 250 MG TAB 3581505 AZITHROMYCIN Inactive PREDNISONE 20 MG TAB 2 tabs daily for 3 days, 1 tab daily for 3 days, 1/2 tab daily for 2 days PREDNISONE 20 MG TAB 793522 PREDNISONE Inactive KEFLEX 500 MG CAP 1 po TID x 7 days KEFLEX 500 MG CAP 723321 CEPHALEXIN Inactive LEVOFLOXACIN 500 MG ORAL TABS take 1 tab po qday LEVOFLOXACIN 500 MG ORAL TABS 171980 LEVOFLOXACIN Inactive PREDNISONE 20 MG TAB 2 tabs daily for 3 days, 1 tab daily for 3 days, 1/2 tab daily for 2 days PREDNISONE 20 MG TAB 643456 PREDNISONE Inactive DOXYCYCLINE HYCLATE 100 MG CAP 1 cap by mouth twice daily DOXYCYCLINE HYCLATE 100 MG CAP 6613304 DOXYCYCLINE HYCLATE Inactive PREDNISONE 20 MG TAB take 3 tabs daily for 3 days, 2 tabs daily for 3 days, 1 tab daily for 3 days, 1/2 tab daily for 3 days PREDNISONE 20 MG TAB 656374 PREDNISONE Inactive PREDNISONE 20 MG TAB take 3 tabs daily for 3 days, 2 tabs daily for 3 days, 1 tab daily for 3 days, 1/2 tab daily for 3 days PREDNISONE 20 MG TAB 071409 PREDNISONE Inactive Advance Directives Directive Description Start [...] ... - Chemistry cholesterol, serum 136 mg/dL 511-679 5500/10/06 triglyceride, serum, fasting 30 mg/dL 30-200 HDL cholesterol, serum 57 mg/dL 32-96 LDL cholesterol, serum 73 mg/dL 0-130 prostate specific antigen 1.45 ng/mL 0.00-4.00 thyroxine, serum, free 0.80 ng/dL 0.76-1.46 TSH 14.03 m[iU]/mL 0.36-3.74 Lab Report: Thyroid Stimulating Hormone (L), Comp. Metabolic Panel, CBC, ... - Chemistry TSH 43.52 m[iU]/mL 0.36-3.74 sodium, serum 140 mmol/L 365-864 0340/04/06 carbon dioxide, venous blood 36.3 mmol/L 21.0-32.0 potassium, serum 4.9 mmol/L 3.5-5.2 chloride, serum 100 mmol/L 98-107 blood glucose 62 mg/dL 65-110 urea nitrogen, blood 24 mg/dL 7-18 creatinine, serum 1.09 mg/dL 0.55-1.30 alanine aminotransferase (SGPT), serum 44 U/L 12-78 aspartate aminotransferase (SGOT), serum 25 U/L 15-37 calcium, serum 8.7 mg/dL 8.5-10.1 bilirubin, serum, total 0.50 mg/dL 0.00-1.00 cholesterol, serum 189 mg/dL 397-087 7185/04/06 triglyceride, serum, fasting 117 mg/dL 30-200 HDL [...] [phone] Encounters Code Encounter Date Provider Facility CPT-39706 Level 4 Est. Patient 23:08:56 CDT Austin Albarado MD [facility] CPT-00626 Level 4 Est. Patient 13:27:28 CDT [facility]oud [facility]19864 Level 4 Est. Patient 10:51:20 CDT Austin Albarado MD [facility]-16521 Level 4 Est. Patient 20:09:43 STUDENT SPECIALIST Austin Albarado MD [facility]-65642 Level 4 Est. Patient 21:00:28 CDT Austin Albarado MD [facility] CPT-04496 Level 4 Est. Patient 10:03:37 CDT Austin Albarado MD [facility]-90473 Level 3 Est. Patient 10:50:28 STUDENT SPECIALIST Austin Albarado MD [facility]-64937 Level 4 Est. Patient 21:31:41 STUDENT SPECIALIST Austin Albarado MD [facility]-54713 Level 3 Est. Patient 16:22:54 STUDENT SPECIALIST Jann Law DO [facility] CPT-18855 Level 3 Est. Patient 11:04:53 STUDENT SPECIALIST Tristan Vaughn MD [facility] CPT-43805 Level 4 Est. Patient 09:50:59 CDT Austin Albarado MD [facility]-48327 Level 4 Est. Patient 09:29:00 CDT Austin Albarado MD [facility]-90840 Level 4 Est. Patient 14:23:07 CDT Austin Albarado MD [facility]-18422 Level 4 Est. Patient 14:27:26 CDT Austin Albarado MD [facility]-10267 Level 4 Est. Patient 12:51:43 STUDENT SPECIALIST Austin Albarado MD [facility] CPT-02574 Level 3 New Patient 14:17:38 STUDENT SPECIALIST Austin Albarado MD [facility] CPT-62386 Level 3 New Patient 11:28:18 STUDENT SPECIALIST Austin Albarado MD [facility] Procedures Code Procedure Name Date Entry Date Standard Description CPT-G0009 Administration of Pneumococcal Vaccine 13:25:27 CDT CPT-07747 Prevnar 13 Intramuscular Suspension 13:25:27 CDT 09/26 CPT-G0438 Initial Annual Wellness Exam 11:28:26 CDT CPT-86926 Chest 2V Frontal and Lat 15:00:00 STUDENT SPECIALIST CPT-59153 Breathing Tx 14:49:25 STUDENT SPECIALIST CPT-53989 Fluzone High Dose 15:08:41 STUDENT SPECIALIST CPT-83618 Immunization Single Admin 15:08:41 STUDENT SPECIALIST CPT-82789 Fluzone High Dose 17:31:19 CDT CPT-25727 Administration single or combination vaccine inc oral 17 :31:19 CDT CPT-86465 Venipuncture Draw Fee 11:03:05 CDT CPT-TCMM Transitional Care Mgmt-Moderate 16:32:35 CDT CPT-47167 Chest 2V Frontal and Lat 11:51:09 CDT CPT-G0008 Administration of Influenza Virus Vaccine 15:09:08 CDT CPT-59725 Fluzone High-Dose Intramuscular Suspension 15:09:08 CDT CPT-07812 Administration single or combination vaccine inc oral 17 :07:02 STUDENT SPECIALIST CPT-02118 Influenza High Dose age 65+ 17:07:02 STUDENT SPECIALIST
--- OUTSIDE RECORDS SUMMARY | 2017-02-27 22:06 | XMS REPORT | Clinical Summary ---
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 Tracie Arrington [employer] Chronic airway obstruction, not elsewhere classified Family history of myocardial infarction V17.3 Active Tracie Arrington [employer] Family history of ischemic heart disease CAD 414.00 Active Tracie Arrington APRN Coronary atherosclerosis of unspecified type of vessel, mary's igloo or graft Peripheral edema 782.3 Active Austin [...] 1 tablet by mouth daily CITALOPRAM HYDROBROMIDE 47019598006 Active Nella José LPN Active KEFLEX 500 MG CAP 1 po BID x 7 days CEPHALEXIN 90320110719 No Longer Active Mica Naren Active KEFLEX 500 MG CAP 1 po BID x 7 days CEPHALEXIN 16509038653 No Longer Active Simona Galloway APRN Active ACYCLOVIR 400 MG TABS 1 pill three times daily ACYCLOVIR 42147248787 No Longer Active Austin Albarado MD Active ACYCLOVIR 400 MG TABS 1 pill three times daily ACYCLOVIR 94384001026 No Longer Active Austin Albarado MD Active ALBUTEROL SULFATE 0.083 % NEBU SOLN one vial per nebulizer every 4 hours as needed Dx. J44.1 ALBUTEROL SULFATE 48203663290 Active Austin Albarado MD Active IPRATROPIUM BROMIDE 0.02 % INH SOLN 1 q 6 hr PRN Dx: J44.1 IPRATROPIUM BROMIDE 03258489087 Active Nella José LPN Active PROAIR HFA 108 (90 BASE) MCG/ACT AERS take 1-2 puffs q 4-6 hrs prn cough/ SOB ALBUTEROL SULFATE 96766526631 Active Nella José LPN Active IPRATROPIUM-ALBUTEROL 0.5-2.5 (3) MG/3ML SOLN 1 VIAL NEB Q 4-6 HRS PRN 04/18 IPRATROPIUM-ALBUTEROL 93551789496 No Longer Active Austin Albarado MD Active ATIVAN 0.5 MG TAB 1 po QD PRN Anxiety LORAZEPAM 50069309121 Active Austin Albarado MD Active PREDNISONE 20 MG ORAL TABS 3 tabs po for 3 days than,2 tabs po for 3 days,1 tab po for 3 days, 1/2 tab po for 3 days. PREDNISONE 78021891315 No Longer Active Simona Galloway APRN Active LEVAQUIN 500 MG TAB 1 tablet by mouth daily LEVOFLOXACIN 02394365286 No Longer Active Simona Galloway APRN Active PREDNISONE 20 MG TAB take 3 tabs daily for 3 days, 2 tabs daily for 3 days, 1 tab daily for 3 days, 1/2 tab daily for 3 days PREDNISONE 49279581294 No Longer Active Austin Albarado MD Active LEVAQUIN 500 MG TAB 1 tablet by mouth daily LEVOFLOXACIN 01562707996 No Longer Active Madhaviavis Rogersida Active FUROSEMIDE 20 MG TABS take 1 tab po BID for swelling FUROSEMIDE 18131789212 Active Austin Albarado MD Active AMOXICILLIN 500 MG ORAL TABS Take one by mouth 3 times daily, morning, afternoon and evening.] AMOXICILLIN 22901943085 No Longer Active Garcia Stroud MD Active PREDNISONE 20 MG ORAL TABS 3 daily for 3 days than, 2 tabs daily for 3 days than, 2 tabs daily for 3 days than, 1 tab daily for 3 days than 1/2 tab daily for 3 days. PREDNISONE 90182585754 No Longer Active Tracie Arrington APRN Active FLUTICASONE PROPIONATE 50 MCG/ACT SUSP 1 to 2 sprays each nostril daily 08/21 FLUTICASONE PROPIONATE 03573257959 Active Austin Albarado MD Active PREDNISONE 10 MG TAB take 1 tab po qday for severe COPD PREDNISONE 62012681116 Active Austin Albarado MD Active PREDNISONE 20 MG ORAL TABS 3 TABS PO FOR 3 DAYS,THAN 2 TABS FOR 3 DAYS THAN, 1 TAB FOR 3 DAYS THAN, 1/2 TAB FOR 3 DAYS. PREDNISONE 55223376837 No Longer Active Austin Albarado MD Active LEVAQUIN 500 MG TAB 1 tablet by mouth daily for 10 days. LEVOFLOXACIN 62226223062 No Longer Active Austin Albarado MD Active PREDNISONE 20 MG TAB take 3 tabs daily for 3 days, 2 tabs daily for 3 days, 1 tab daily for 3 days, 1/2 tab daily for 3 days PREDNISONE 47385918591 No Longer Active Simona Galloway APRN Active ZITHROMAX 1 GM ORAL PACK DIRECTED AZITHROMYCIN 67886395456 No Longer Active Simona Galloway APRN Active PREDNISONE 20 MG TAB 2 tabs daily for 4 days, 1 tab daily for 4 days, 1/2 tab daily for 4 days PREDNISONE 43726271829 No Longer Active Austin Albarado MD Active LEVAQUIN 500 MG TAB 1 tablet by mouth daily LEVOFLOXACIN 81173747794 No Longer Active Austin Albarado MD Active PREDNISONE 20 MG TAB take 3 tabs daily for 3 days, 2 tabs daily for 3 days, 1 tab daily for 3 days, 1/2 tab daily for 3 days PREDNISONE 09829267613 No Longer Active Austin Albarado MD Active DOXYCYCLINE HYCLATE 100 MG CAP 1 cap by mouth twice daily DOXYCYCLINE HYCLATE 54066004267 No Longer Active Esperanza Modi APRN Active ALBUTEROL SULFATE (2.5 MG/3ML) 0.083% NEBU nebulize 1 vial q 4-6 hours prn shortness of breath ALBUTEROL SULFATE 26792262694 No Longer Active Esperanza Modi APRN Active TORSEMIDE 20 MG TABS 1 TAB PO BID TORSEMIDE 20509341947 No Longer Active Joshllaftab Modi APRN Active PREDNISONE 20 MG TAB 2 tabs daily for 3 days, 1 tab daily for 3 days, 1/2 tab daily for 2 days PREDNISONE 98929700248 No Longer Active Austin Albarado MD Active LEVOFLOXACIN 500 MG ORAL TABS take 1 tab po qday LEVOFLOXACIN 34228339716 No Longer Active Austin Albarado MD Active PREDNISONE 20 MG TAB 2 tablets today, then 1 tablet by mouth days 2-5 PREDNISONE 53333229700 No Longer Active Austin Albarado MD Active AZITHROMYCIN 500 MG SOLR 1 po q day AZITHROMYCIN 11139743432 No Longer Active Austin Albarado MD Active KEFLEX 500 MG CAP 1 po TID x 7 days CEPHALEXIN 43619928399 No Longer Active Tristan Vaughn MD Active EQL VISION FORMULA TABS 1 TAB PO DAILY MULTIPLE VITAMINS-MINERALS 97080485689 No Longer Active Tristan Vaughn MD Active CHANTIX STARTING MONTH ELVIS 0.5 MG X 11 & 1 MG X 42 TABS 0.5mg daily for 3 days , then 0.5mg BID for 4 days, then 1mg BID VARENICLINE TARTRATE 54265533260 No Longer Active Tristan Vaughn MD Active LEVOTHYROXINE SODIUM 200 MCG TABS 1 TAB PO DAILY LEVOTHYROXINE SODIUM 07790272632 No Longer Active Tristan Vaughn MD Active LIOTHYRONINE SODIUM 50 MCG TABS take 1 tab po qday for hypothyroidism LIOTHYRONINE SODIUM 30278567009 No Longer Active Austin Albarado MD Active SYNTHROID 0.025 MG TAB 1 tablet by mouth daily LEVOTHYROXINE SODIUM 60153773039 No Longer Active Austin Albarado MD Active ARMOUR THYROID 120 MG TABS take 1 tab po qday for hypothyroidism THYROID 81860608850 Active Austin Albarado MD Active FLONASE 50 MCG/ACT SUSP 1 spray each nostril am and hs FLUTICASONE PROPIONATE Active Simona Galloway APRN Active ZITHROMAX 1 GM PACK DIRECTED AZITHROMYCIN 88103277851 No Longer Active Austin Albarado MD Active PREDNISONE 20 MG TAB 2 tabs daily for 3 days, 1 tab daily for 3 days, 1/2 tab daily for 2 days PREDNISONE 32449176877 No Longer Active Austin Albarado MD Active ZITHROMAX 250 MG TAB 2 po today, then 1 po q days 2-5 AZITHROMYCIN 22057948807 No Longer Active Austin Albarado MD Active NYSTATIN-TRIAMCINOLONE 970254-7.1 UNIT/GM-% OINT Apply to affected area TID NYSTATIN-TRIAMCINOLONE 97643977776 Active Austin Albarado MD Active ADVAIR DISKUS 500-50 MCG/DOSE AEPB ONE INH BID FLUTICASONE- SALMETEROL 48625514155 Active Austin Albarado MD Active ZITHROMAX 1 GM PACK DIRECTED ZITHROMAX 1 GM PACK 913404 AZITHROMYCIN Inactive SYNTHROID 0.025 MG TAB 1 tablet by mouth daily SYNTHROID 0.025 MG TAB 912143 LEVOTHYROXINE SODIUM Inactive LIOTHYRONINE SODIUM 50 MCG TABS take 1 tab po qday for hypothyroidism LIOTHYRONINE SODIUM 50 MCG TABS 038174 LIOTHYRONINE SODIUM Inactive LEVOTHYROXINE SODIUM 200 MCG TABS 1 TAB PO DAILY LEVOTHYROXINE SODIUM 200 MCG TABS 707364 LEVOTHYROXINE SODIUM Inactive CHANTIX STARTING MONTH ELVIS [...] po q day AZITHROMYCIN 500 MG SOLR 43685965096 AZITHROMYCIN Inactive PREDNISONE 20 MG TAB 2 tablets today, then 1 tablet by mouth days 2-5 PREDNISONE 20 MG TAB 654862 PREDNISONE Inactive TORSEMIDE 20 MG TABS 1 TAB PO BID TORSEMIDE 20 MG TABS 723139 TORSEMIDE Inactive ALBUTEROL SULFATE (2.5 MG/3ML) 0.083% NEBU nebulize 1 vial q 4-6 hours prn shortness of breath ALBUTEROL SULFATE (2.5 MG/3ML) 0.083% [facility] 459388 ALBUTEROL SULFATE Inactive LEVAQUIN 500 MG TAB 1 tablet by mouth daily LEVAQUIN 500 MG TAB 461354 LEVOFLOXACIN Inactive PREDNISONE 20 MG TAB 2 tabs daily for 4 days, 1 tab daily for 4 days, 1/2 tab daily for 4 days PREDNISONE 20 MG TAB 599658 PREDNISONE Inactive ZITHROMAX 1 GM ORAL PACK DIRECTED ZITHROMAX 1 GM ORAL PACK 311240 AZITHROMYCIN Inactive LEVAQUIN 500 MG TAB 1 tablet by mouth daily for 10 days. LEVAQUIN 500 MG TAB 633019 LEVOFLOXACIN Inactive PREDNISONE 20 MG ORAL TABS 3 TABS PO FOR 3 DAYS,THAN 2 TABS FOR 3 DAYS THAN, 1 TAB FOR 3 DAYS THAN, 1/2 TAB FOR 3 DAYS. PREDNISONE 20 MG ORAL TABS 986470 PREDNISONE Inactive PREDNISONE 20 MG ORAL TABS 3 daily for 3 days than, 2 tabs daily for 3 days than, 2 tabs daily for 3 days than, 1 tab daily for 3 days than 1/2 tab daily for 3 days. PREDNISONE 20 MG ORAL TABS 646154 PREDNISONE Inactive AMOXICILLIN 500 MG ORAL TABS Take one by mouth 3 times daily, morning, afternoon and evening.] AMOXICILLIN 500 MG ORAL TABS 871223 AMOXICILLIN Inactive LEVAQUIN 500 MG TAB 1 tablet by mouth daily LEVAQUIN 500 MG TAB 957377 LEVOFLOXACIN Inactive LEVAQUIN 500 MG TAB 1 tablet by mouth daily LEVAQUIN 500 MG TAB 203342 LEVOFLOXACIN Inactive PREDNISONE 20 MG ORAL TABS 3 tabs po for 3 days than,2 tabs po for 3 days,1 tab po for 3 days, 1/2 tab po for 3 days. PREDNISONE 20 MG ORAL TABS 240828 PREDNISONE Inactive ZITHROMAX 250 MG TAB 2 po today, then 1 po q days 2-5 ZITHROMAX 250 MG TAB 2608971 AZITHROMYCIN Inactive PREDNISONE 20 MG TAB 2 tabs daily for 3 days, 1 tab daily for 3 days, 1/2 tab daily for 2 days PREDNISONE 20 MG TAB 741804 PREDNISONE Inactive KEFLEX 500 MG CAP 1 po TID x 7 days KEFLEX 500 MG CAP 956557 CEPHALEXIN Inactive LEVOFLOXACIN 500 MG ORAL TABS take 1 tab po qday LEVOFLOXACIN 500 MG ORAL TABS 535191 LEVOFLOXACIN Inactive PREDNISONE 20 MG TAB 2 tabs daily for 3 days, 1 tab daily for 3 days, 1/2 tab daily for 2 days PREDNISONE 20 MG TAB 789549 PREDNISONE Inactive DOXYCYCLINE HYCLATE 100 MG CAP 1 cap by mouth twice daily DOXYCYCLINE HYCLATE 100 MG CAP 5374130 DOXYCYCLINE HYCLATE Inactive PREDNISONE 20 MG TAB take 3 tabs daily for 3 days, 2 tabs daily for 3 days, 1 tab daily for 3 days, 1/2 tab daily for 3 days PREDNISONE 20 MG TAB 022019 PREDNISONE Inactive PREDNISONE 20 MG TAB take 3 tabs daily for 3 days, 2 tabs daily for 3 days, 1 tab daily for 3 days, 1/2 tab daily for 3 days PREDNISONE 20 MG TAB 986940 PREDNISONE Inactive PREDNISONE 20 MG TAB take 3 tabs daily for 3 days, 2 tabs daily for 3 days, 1 tab daily for 3 days, 1/2 tab daily for 3 days PREDNISONE 20 MG TAB 429541 PREDNISONE Inactive ACYCLOVIR 400 MG TABS 1 pill three times daily ACYCLOVIR 400 MG TABS 088635 ACYCLOVIR Inactive ACYCLOVIR 400 MG TABS 1 pill three times daily ACYCLOVIR 400 MG TABS 089910 ACYCLOVIR Inactive KEFLEX 500 MG CAP 1 po BID x 7 days KEFLEX 500 MG CAP 857796 CEPHALEXIN Inactive KEFLEX 500 MG CAP 1 po BID x 7 days KEFLEX 500 MG CAP 360054 CEPHALEXIN Inactive Advance Directives Directive Description Start [...] Peptide - Chemistry sodium, serum 140 mmol/L 252-389 7002/02/09 carbon dioxide, venous blood 39.2 mmol/L 21.0-32.0 [...] 0.00-1.00 Encounters Code Encounter Date Provider Facility CPT-61500 Level 3 Est. Patient 16:07:19 CDT Simona Galloway APRN [facility] CPT-22198 Level 4 Est. Patient 13:31:03 CDT Austin Albarado MD [facility] CPT-66091 Level 4 Est. Patient 17:54:41 NEON INSTALLER Austin Albarado MD [facility] CPT-30784 Level 4 Est. Patient 16:11:14 NEON INSTALLER Austin Albarado MD [facility] CPT-90906 Level 4 Est. Patient 23:08:56 CDT Austin Albarado MD [facility] CPT-78655 Level 4 Est. Patient 13:27:28 CDT Garcia Stroud MD [facility]-77176 Level 4 Est. Patient 10:51:20 CDT Austin Albarado MD [facility] CPT-80081 Level 4 Est. Patient 20:09:43 NEON INSTALLER Austin Albarado MD [facility] CPT-58580 Level 4 Est. Patient 21:00:28 CDT Austin Albarado MD [facility] CPT-71220 Level 4 Est. Patient 10:03:37 CDT Austin Albarado MD [facility] CPT-06673 Level 3 Est. Patient 10:50:28 NEON INSTALLER Austin Albarado MD [facility] CPT-81498 Level 4 Est. Patient 21:31:41 NEON INSTALLER Austin Albarado MD [facility] CPT-16039 Level 3 Est. Patient 16:22:54 NEON INSTALLER Jann Law DO [facility] CPT-26496 Level 3 Est. Patient 11:04:53 NEON INSTALLER Tristan Vaughn MD [facility] CPT-54606 Level 4 Est. Patient 09:50:59 CDT Austin Albarado MD [facility] CPT-51009 Level 4 Est. Patient 09:29:00 CDT Austin Albarado MD [facility] CPT-46788 Level 4 Est. Patient 14:23:07 CDT Austin Albarado MD [facility] CPT-32091 Level 4 Est. Patient 14:27:26 CDT Austin Albarado MD [facility] CPT-94990 Level 4 Est. Patient 12:51:43 NEON INSTALLER Austin Albarado MD [facility] CPT-19189 Level 3 New Patient 14:17:38 NEON INSTALLER Austin Albarado MD [facility] CPT-73022 Level 3 New Patient 11:28:18 NEON INSTALLER Austin Albarado MD [facility] Procedures Code Procedure Name Date Entry Date Standard Description CPT-G0439 Subsequent Annual Wellness Exam 08:13:24 CDT CPT-TCMM Transitional Care Mgmt-Moderate 14:53:36 NEON INSTALLER CPT-98085 No Charge Offi Visit 10:19:33 NEON INSTALLER CPT-16349 Chest 2V Frontal and Lat - XRAY USE ONLY 15:01:41 NEON INSTALLER CPT-82151 First Vx - Ix admin for Medicare patients 16:00:49 CDT CPT-25181 Fluzone High-Dose Intramuscular Suspension 16:00:49 CDT CPT-G0009 Administration of Pneumococcal Vaccine 13:25:27 CDT CPT-77566 Prevnar 13 Intramuscular Suspension 13:25:27 CDT 09/26 CPT-G0438 Initial Annual Wellness Exam 11:28:26 CDT CPT-43686 Chest 2V Frontal and Lat 15:00:00 NEON INSTALLER CPT-94858 Breathing Tx 14:49:25 NEON INSTALLER CPT-75901 Fluzone High Dose 15:08:41 NEON INSTALLER CPT-69333 Immunization Single Admin 15:08:41 NEON INSTALLER CPT-27861 Fluzone High Dose 17:31:19 CDT CPT-69572 Administration single or combination vaccine inc oral 17 :31:19 CDT CPT-22333 Venipuncture Draw Fee 11:03:05 CDT CPT-TCMM Transitional Care Mgmt-Moderate 16:32:35 CDT CPT-18805 Chest 2V Frontal and Lat 11:51:09 CDT CPT-G0008 Administration of Influenza Virus Vaccine 15:09:08 CDT CPT-12860 Fluzone High-Dose Intramuscular Suspension 15:09:08 CDT CPT-65489 Administration single or combination vaccine inc oral 17 :07:02 NEON INSTALLER CPT-67090 Influenza High Dose age 65+ 17:07:02 NEON INSTALLER
--- OUTSIDE RECORDS SUMMARY | 2017-02-27 22:07 | XMS REPORT | Clinical Summary ---
Author Author Admin, E Organization [facility] Address Unknown Phone Unavailable Allergies, Adverse Reactions, [...] Coronary atherosclerosis of unspecified type of vessel, deering or graft Peripheral edema 782.3 Active Austin [...] Q 6 hrs prn DX: J44.9 IPRATROPIUM-ALBUTEROL 48128834843 Active Mackenzie Sher RMA Active IPRATROPIUM BROMIDE 0.02 % INH SOLN 1 q 6 hr PRN Dx: J44.1 12/29 IPRATROPIUM BROMIDE 38640989201 No Longer Active Mackenzie Christos RMA Active ACYCLOVIR 400 MG TABS 1 pill three times daily ACYCLOVIR 65070570469 No Longer Active Austin Albarado MD Active POTASSIUM CHLORIDE ER 20 MEQ ORAL CR-TABS 1 po BID along with the lasix 12/24 POTASSIUM CHLORIDE 89358536875 Active Austin Albarado MD Active FUROSEMIDE 40 MG TAB 1 tablet by mouth BID for swelling FUROSEMIDE 24172359168 Active Austin Albarado MD Active CELEXA 20 MG TABS 1 tablet by mouth daily CITALOPRAM HYDROBROMIDE 20444162649 Active Austin Albarado MD Active KEFLEX 500 MG CAP 1 po BID x 7 days CEPHALEXIN 00559829877 No Longer Active Mica Sneed Active KEFLEX 500 MG CAP 1 po BID x 7 days CEPHALEXIN 95729187596 No Longer Active Simona Galloway APRN Active ACYCLOVIR 400 MG TABS 1 pill three times daily ACYCLOVIR 85548891391 No Longer Active Austin Albarado MD Active ACYCLOVIR 400 MG TABS 1 pill three times daily ACYCLOVIR 83787890477 No Longer Active Austin Albarado MD Active ALBUTEROL SULFATE 0.083 % NEBU SOLN one vial per nebulizer every 4 hours as needed Dx. J44.1 ALBUTEROL SULFATE 85095824807 Active Austin Albarado MD Active PROAIR HFA 108 (90 BASE) MCG/ACT AERS take 1-2 puffs q 4-6 hrs prn cough/ SOB ALBUTEROL SULFATE 02223663351 Active Nella José LPN Active IPRATROPIUM-ALBUTEROL 0.5-2.5 (3) MG/3ML SOLN 1 VIAL NEB Q 4-6 HRS PRN 04/18 IPRATROPIUM-ALBUTEROL 48047743164 No Longer Active Austin Albarado MD Active ATIVAN 0.5 MG TAB 1 po QD PRN Anxiety LORAZEPAM 01528925764 Active Austin Albarado MD Active PREDNISONE 20 MG ORAL TABS 3 tabs po for 3 days than,2 tabs po for 3 days,1 tab po for 3 days, 1/2 tab po for 3 days. PREDNISONE 74322037319 No Longer Active Simona Galloway APRN Active LEVAQUIN 500 MG TAB 1 tablet by mouth daily LEVOFLOXACIN 77086014401 No Longer Active Simona Galloway APRN Active PREDNISONE 20 MG TAB take 3 tabs daily for 3 days, 2 tabs daily for 3 days, 1 tab daily for 3 days, 1/2 tab daily for 3 days PREDNISONE 24037080229 No Longer Active Austin Albarado MD Active LEVAQUIN 500 MG TAB 1 tablet by mouth daily LEVOFLOXACIN 01800124856 No Longer Active Madhavi Macarena Active FUROSEMIDE 20 MG TABS take 1 tab po BID for swelling FUROSEMIDE 71164116716 Active Austin Albarado MD Active AMOXICILLIN 500 MG ORAL TABS Take one by mouth 3 times daily, morning, afternoon and evening.] AMOXICILLIN 30130725961 No Longer Active Garcia Stroud MD Active PREDNISONE 20 MG ORAL TABS 3 daily for 3 days than, 2 tabs daily for 3 days than, 2 tabs daily for 3 days than, 1 tab daily for 3 days than 1/2 tab daily for 3 days. PREDNISONE 91203850627 No Longer Active Tracie Arrington APRN Active FLUTICASONE PROPIONATE 50 MCG/ACT SUSP 1 to 2 sprays each nostril daily 08/21 FLUTICASONE PROPIONATE 89280645456 Active Austin Albarado MD Active PREDNISONE 10 MG TAB take 1 tab po qday for severe COPD PREDNISONE 31571346798 Active Austin Albarado MD Active PREDNISONE 20 MG ORAL TABS 3 TABS PO FOR 3 DAYS,THAN 2 TABS FOR 3 DAYS THAN, 1 TAB FOR 3 DAYS THAN, 1/2 TAB FOR 3 DAYS. PREDNISONE 18618869308 No Longer Active Austin Albarado MD Active LEVAQUIN 500 MG TAB 1 tablet by mouth daily for 10 days. LEVOFLOXACIN 61969020204 No Longer Active Austin Albarado MD Active PREDNISONE 20 MG TAB take 3 tabs daily for 3 days, 2 tabs daily for 3 days, 1 tab daily for 3 days, 1/2 tab daily for 3 days PREDNISONE 99669510737 No Longer Active Simona Galloway APRN Active ZITHROMAX 1 GM ORAL PACK DIRECTED AZITHROMYCIN 96820170969 No Longer Active Simona Galloway APRN Active PREDNISONE 20 MG TAB 2 tabs daily for 4 days, 1 tab daily for 4 days, 1/2 tab daily for 4 days PREDNISONE 14403320814 No Longer Active Austin Albarado MD Active LEVAQUIN 500 MG TAB 1 tablet by mouth daily LEVOFLOXACIN 14999069006 No Longer Active Austin Albarado MD Active PREDNISONE 20 MG TAB take 3 tabs daily for 3 days, 2 tabs daily for 3 days, 1 tab daily for 3 days, 1/2 tab daily for 3 days PREDNISONE 52751038971 No Longer Active Austin Albarado MD Active DOXYCYCLINE HYCLATE 100 MG CAP 1 cap by mouth twice daily DOXYCYCLINE HYCLATE 00974708516 No Longer Active Esperanza Modi APRN Active ALBUTEROL SULFATE (2.5 MG/3ML) 0.083% NEBU nebulize 1 vial q 4-6 hours prn shortness of breath ALBUTEROL SULFATE 21917429502 No Longer Active Esperanza Modi APRN Active TORSEMIDE 20 MG TABS 1 TAB PO BID TORSEMIDE 68296461938 No Longer Active Esperanza Modi JESSI Active PREDNISONE 20 MG TAB 2 tabs daily for 3 days, 1 tab daily for 3 days, 1/2 tab daily for 2 days PREDNISONE 50267133599 No Longer Active Austin Albarado MD Active LEVOFLOXACIN 500 MG ORAL TABS take 1 tab po qday LEVOFLOXACIN 98216364251 No Longer Active Austin Albarado MD Active PREDNISONE 20 MG TAB 2 tablets today, then 1 tablet by mouth days 2-5 PREDNISONE 42922000283 No Longer Active Austin Albarado MD Active AZITHROMYCIN 500 MG SOLR 1 po q day AZITHROMYCIN 57182590943 No Longer Active Austin Albarado MD Active KEFLEX 500 MG CAP 1 po TID x 7 days CEPHALEXIN 35526604432 No Longer Active Tristan Vaughn MD Active EQL VISION FORMULA TABS 1 TAB PO DAILY MULTIPLE VITAMINS-MINERALS 41382506844 No Longer Active Tristan Vaughn MD Active CHANTIX STARTING MONTH ELVIS 0.5 MG X 11 & 1 MG X 42 TABS 0.5mg daily for 3 days , then 0.5mg BID for 4 days, then 1mg BID VARENICLINE TARTRATE 43770468136 No Longer Active Tristan Vaughn MD Active LEVOTHYROXINE SODIUM 200 MCG TABS 1 TAB PO DAILY LEVOTHYROXINE SODIUM 82432482840 No Longer Active Tristan Vaughn MD Active LIOTHYRONINE SODIUM 50 MCG TABS take 1 tab po qday for hypothyroidism LIOTHYRONINE SODIUM 11440317530 No Longer Active Austin Albarado MD Active SYNTHROID 0.025 MG TAB 1 tablet by mouth daily LEVOTHYROXINE SODIUM 37284908149 No Longer Active Austin Albarado MD Active ARMOUR THYROID 120 MG TABS take 1 tab po qday for hypothyroidism THYROID 77204518680 Active Austin Albarado MD Active FLONASE 50 MCG/ACT SUSP 1 spray each nostril am and hs FLUTICASONE PROPIONATE Active Simona Galloway APRN Active ZITHROMAX 1 GM PACK DIRECTED AZITHROMYCIN 17854737600 No Longer Active Austin Albarado MD Active PREDNISONE 20 MG TAB 2 tabs daily for 3 days, 1 tab daily for 3 days, 1/2 tab daily for 2 days PREDNISONE 48741002986 No Longer Active Austin Albarado MD Active ZITHROMAX 250 MG TAB 2 po today, then 1 po q days 2-5 AZITHROMYCIN 64316106823 No Longer Active Austin Albarado MD Active NYSTATIN-TRIAMCINOLONE 170315-5.1 UNIT/GM-% OINT Apply to affected area TID NYSTATIN-TRIAMCINOLONE 19996931785 Active Austin Albarado MD Active ADVAIR DISKUS 500-50 MCG/DOSE AEPB ONE INH BID FLUTICASONE- SALMETEROL 61094581979 Active Austin Albarado MD Active ZITHROMAX 1 GM PACK DIRECTED ZITHROMAX 1 GM PACK 720719 AZITHROMYCIN Inactive SYNTHROID 0.025 MG TAB 1 tablet by mouth daily SYNTHROID 0.025 MG TAB 156042 LEVOTHYROXINE SODIUM Inactive LIOTHYRONINE SODIUM 50 MCG TABS take 1 tab po qday for hypothyroidism LIOTHYRONINE SODIUM 50 MCG TABS 243432 LIOTHYRONINE SODIUM Inactive LEVOTHYROXINE SODIUM 200 MCG TABS 1 TAB PO DAILY LEVOTHYROXINE SODIUM 200 MCG TABS 609257 LEVOTHYROXINE SODIUM Inactive CHANTIX STARTING MONTH ELVIS [...] po q day AZITHROMYCIN 500 MG SOLR 63117523475 AZITHROMYCIN Inactive PREDNISONE 20 MG TAB 2 tablets today, then 1 tablet by mouth days 2-5 PREDNISONE 20 MG TAB 158410 PREDNISONE Inactive TORSEMIDE 20 MG TABS 1 TAB PO BID TORSEMIDE 20 MG TABS 719806 TORSEMIDE Inactive ALBUTEROL SULFATE (2.5 MG/3ML) 0.083% NEBU nebulize 1 vial q 4-6 hours prn shortness of breath ALBUTEROL SULFATE (2.5 MG/3ML) 0.083% NEBU 230144 ALBUTEROL SULFATE Inactive LEVAQUIN 500 MG TAB 1 tablet by mouth daily LEVAQUIN 500 MG TAB 231922 LEVOFLOXACIN Inactive PREDNISONE 20 MG TAB 2 tabs daily for 4 days, 1 tab daily for 4 days, 1/2 tab daily for 4 days PREDNISONE 20 MG TAB 716412 PREDNISONE Inactive ZITHROMAX 1 GM ORAL PACK DIRECTED ZITHROMAX 1 GM ORAL PACK 215404 AZITHROMYCIN Inactive LEVAQUIN 500 MG TAB 1 tablet by mouth daily for 10 days. LEVAQUIN 500 MG TAB 203345 LEVOFLOXACIN Inactive PREDNISONE 20 MG ORAL TABS 3 TABS PO FOR 3 DAYS,THAN 2 TABS FOR 3 DAYS THAN, 1 TAB FOR 3 DAYS THAN, 1/2 TAB FOR 3 DAYS. PREDNISONE 20 MG ORAL TABS 068517 PREDNISONE Inactive PREDNISONE 20 MG ORAL TABS 3 daily for 3 days than, 2 tabs daily for 3 days than, 2 tabs daily for 3 days than, 1 tab daily for 3 days than 1/2 tab daily for 3 days. PREDNISONE 20 MG ORAL TABS 319397 PREDNISONE Inactive AMOXICILLIN 500 MG ORAL TABS Take one by mouth 3 times daily, morning, afternoon and evening.] AMOXICILLIN 500 MG ORAL TABS 569954 AMOXICILLIN Inactive LEVAQUIN 500 MG TAB 1 tablet by mouth daily LEVAQUIN 500 MG TAB 758439 LEVOFLOXACIN Inactive LEVAQUIN 500 MG TAB 1 tablet by mouth daily LEVAQUIN 500 MG TAB 186149 LEVOFLOXACIN Inactive PREDNISONE 20 MG ORAL TABS 3 tabs po for 3 days than,2 tabs po for 3 days,1 tab po for 3 days, 1/2 tab po for 3 days. PREDNISONE 20 MG ORAL TABS 519412 PREDNISONE Inactive IPRATROPIUM BROMIDE 0.02 % INH SOLN 1 q 6 hr PRN Dx: J44.1 12/29 IPRATROPIUM BROMIDE 0.02 % INH SOLN 127624 IPRATROPIUM BROMIDE Inactive ZITHROMAX 250 MG TAB 2 po today, then 1 po q days 2-5 ZITHROMAX 250 MG TAB 2133203 AZITHROMYCIN Inactive PREDNISONE 20 MG TAB 2 tabs daily for 3 days, 1 tab daily for 3 days, 1/2 tab daily for 2 days PREDNISONE 20 MG TAB 188688 PREDNISONE Inactive KEFLEX 500 MG CAP 1 po TID x 7 days KEFLEX 500 MG CAP 604944 CEPHALEXIN Inactive LEVOFLOXACIN 500 MG ORAL TABS take 1 tab po qday LEVOFLOXACIN 500 MG ORAL TABS 889638 LEVOFLOXACIN Inactive PREDNISONE 20 MG TAB 2 tabs daily for 3 days, 1 tab daily for 3 days, 1/2 tab daily for 2 days PREDNISONE 20 MG TAB 171312 PREDNISONE Inactive DOXYCYCLINE HYCLATE 100 MG CAP 1 cap by mouth twice daily DOXYCYCLINE HYCLATE 100 MG CAP 5669564 DOXYCYCLINE HYCLATE Inactive PREDNISONE 20 MG TAB take 3 tabs daily for 3 days, 2 tabs daily for 3 days, 1 tab daily for 3 days, 1/2 tab daily for 3 days PREDNISONE 20 MG TAB 227291 PREDNISONE Inactive PREDNISONE 20 MG TAB take 3 tabs daily for 3 days, 2 tabs daily for 3 days, 1 tab daily for 3 days, 1/2 tab daily for 3 days PREDNISONE 20 MG TAB 327506 PREDNISONE Inactive PREDNISONE 20 MG TAB take 3 tabs daily for 3 days, 2 tabs daily for 3 days, 1 tab daily for 3 days, 1/2 tab daily for 3 days PREDNISONE 20 MG TAB 195144 PREDNISONE Inactive ACYCLOVIR 400 MG TABS 1 pill three times daily ACYCLOVIR 400 MG TABS 19720518 ACYCLOVIR Inactive ACYCLOVIR 400 MG TABS 1 pill three times daily ACYCLOVIR 400 MG TABS 19720518 ACYCLOVIR Inactive KEFLEX 500 MG CAP 1 po BID x 7 days KEFLEX 500 MG CAP 038943 CEPHALEXIN Inactive KEFLEX 500 MG CAP 1 po BID x 7 days KEFLEX 500 MG CAP 459836 CEPHALEXIN Inactive ACYCLOVIR 400 MG TABS 1 [...] Peptide - Chemistry sodium, serum 140 mmol/L 975-046 4678/02/09 carbon dioxide, venous blood 39.2 mmol/L 21.0-32.0 [...] 0.00-1.00 Encounters Code Encounter Date Provider Facility CPT-89418 Level 4 Est. Patient 18:17:08 CDT Austin Albarado MD [facility] CPT-21615 Level 3 Est. Patient 16:07:19 CDT Simona Galloway APRN [facility] CPT-75446 Level 4 Est. Patient 13:31:03 CDT Austin Albarado MD [facility] CPT-39885 Level 4 Est. Patient 17:54:41 SOCIAL MEDIA SPECIALIST Austin Albarado MD [facility] CPT-41209 Level 4 Est. Patient 16:11:14 SOCIAL MEDIA SPECIALIST Austin Albarado MD [facility] CPT-22351 Level 4 Est. Patient 23:08:56 CDT Austin Albarado MD [facility]-71394 Level 4 Est. Patient 13:27:28 CDT Garcia Stroud MD [facility] CPT-05703 Level 4 Est. Patient 10:51:20 CDT Austin Albarado MD [facility] CPT-90137 Level 4 Est. Patient 20:09:43 SOCIAL MEDIA SPECIALIST Austin Albarado MD [facility] CPT-26914 Level 4 Est. Patient 21:00:28 CDT Austin Albarado MD [facility] CPT-82696 Level 4 Est. Patient 10:03:37 CDT Austin Albarado MD [facility] CPT-56297 Level 3 Est. Patient 10:50:28 SOCIAL MEDIA SPECIALIST Austin Albarado MD [facility] CPT-13286 Level 4 Est. Patient 21:31:41 SOCIAL MEDIA SPECIALIST Austin Albarado MD [facility] CPT-07584 Level 3 Est. Patient 16:22:54 SOCIAL MEDIA SPECIALIST Jann Law DO [facility] CPT-55284 Level 3 Est. Patient 11:04:53 SOCIAL MEDIA SPECIALIST Tristan Vaughn MD [facility] CPT-58999 Level 4 Est. Patient 09:50:59 CDT Austin Albarado MD [facility] CPT-52620 Level 4 Est. Patient 09:29:00 CDT Austin Albarado MD [facility] CPT-93085 Level 4 Est. Patient 14:23:07 CDT Austin Albarado MD [facility] CPT-22124 Level 4 Est. Patient 14:27:26 CDT Austin Albarado MD [facility] CPT-18437 Level 4 Est. Patient 12:51:43 SOCIAL MEDIA SPECIALIST Austin Albarado MD [facility] CPT-96942 Level 3 New Patient 14:17:38 SOCIAL MEDIA SPECIALIST Austin Albarado MD [facility] CPT-98153 Level 3 New Patient 11:28:18 SOCIAL MEDIA SPECIALIST Austin Albarado MD [facility] Procedures Code Procedure Name Date Entry Date Standard Description CPT-G0439 Subsequent Annual Wellness Exam 08:13:24 CDT CPT-TCMM Transitional Care Mgmt-Moderate 14:53:36 SOCIAL MEDIA SPECIALIST CPT-68315 No Charge Offi Visit 10:19:33 SOCIAL MEDIA SPECIALIST CPT-69916 Chest 2V Frontal and Lat - XRAY USE ONLY 15:01:41 SOCIAL MEDIA SPECIALIST CPT-03321 First Vx - Ix admin for Medicare patients 16:00:49 CDT CPT-48676 Fluzone High-Dose Intramuscular Suspension 16:00:49 CDT CPT-G0009 Administration of Pneumococcal Vaccine 13:25:27 CDT CPT-14936 Prevnar 13 Intramuscular Suspension 13:25:27 CDT 09/26 CPT-G0438 Initial Annual Wellness Exam 11:28:26 CDT CPT-07901 Chest 2V Frontal and Lat 15:00:00 SOCIAL MEDIA SPECIALIST CPT-06065 Breathing Tx 14:49:25 SOCIAL MEDIA SPECIALIST CPT-05837 Fluzone High Dose 15:08:41 SOCIAL MEDIA SPECIALIST CPT-23009 Immunization Single Admin 15:08:41 SOCIAL MEDIA SPECIALIST CPT-06338 Fluzone High Dose 17:31:19 CDT CPT-80297 Administration single or combination vaccine inc oral 17 :31:19 CDT CPT-27967 Venipuncture Draw Fee 11:03:05 CDT CPT-TCMM Transitional Care Mgmt-Moderate 16:32:35 CDT CPT-75035 Chest 2V Frontal and Lat 11:51:09 CDT CPT-G0008 Administration of Influenza Virus Vaccine 15:09:08 CDT CPT-97642 Fluzone High-Dose Intramuscular Suspension 15:09:08 CDT CPT-67981 Administration single or combination vaccine inc oral 17 :07:02 SOCIAL MEDIA SPECIALIST CPT-96770 Influenza High Dose age 65+ 17:07:02 SOCIAL MEDIA SPECIALIST
--- OUTSIDE RECORDS SUMMARY | 2017-02-27 22:08 | XMS REPORT | Clinical Summary ---
Author Author Admin, LEE Organization [facility] Address Unknown Phone Unavailable Allergies, Adverse [...] by mouth daily for 10 days. LEVOFLOXACIN 27613788438 Active Simona Galloway APRN Active PREDNISONE 20 MG TAB take 3 tabs daily for 3 days, 2 tabs daily for 3 days, 1 tab daily for 3 days, 1/2 tab daily for 3 days PREDNISONE 24539024410 No Longer Active Simona Galloway APRN Active ZITHROMAX 1 GM ORAL PACK DIRECTED AZITHROMYCIN 43642852364 No Longer Active Simona Galloway APRN Active PREDNISONE 20 MG ORAL TABS 3 TABS PO FOR 3 DAYS,THAN 2 TABS FOR 3 DAYS THAN, 1 TAB FOR 3 DAYS THAN, 1/2 TAB FOR 3 DAYS. PREDNISONE 75333920803 Active Madhavi Fiore Active PREDNISONE 20 MG TAB 2 tabs daily for 4 days, 1 tab daily for 4 days, 1/2 tab daily for 4 days PREDNISONE 34228011968 No Longer Active Austin Albarado MD Active LEVAQUIN 500 MG TAB 1 tablet by mouth daily LEVOFLOXACIN 65383576012 No Longer Active Austin Albarado MD Active PREDNISONE 20 MG TAB take 3 tabs daily for 3 days, 2 tabs daily for 3 days, 1 tab daily for 3 days, 1/2 tab daily for 3 days PREDNISONE 55982585466 No Longer Active Austin Albarado MD Active DOXYCYCLINE HYCLATE 100 MG CAP 1 cap by mouth twice daily DOXYCYCLINE HYCLATE 27236696307 No Longer Active Fiorina Ly CONSTRUCTION SUPERVISOR/CARPENTER Active ALBUTEROL SULFATE (2.5 MG/3ML) 0.083% NEBU nebulize 1 vial q 4-6 hours prn shortness of breath ALBUTEROL SULFATE 09139761554 No Longer Active Jillina Ly CONSTRUCTION SUPERVISOR/CARPENTER Active TORSEMIDE 20 MG TABS 1 TAB PO BID TORSEMIDE 71002935405 No Longer Active 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 CONSTRUCTION SUPERVISOR/CARPENTER Active PREDNISONE 20 MG TAB 2 tabs daily for 3 days, 1 tab daily for 3 days, 1/2 tab daily for 2 days PREDNISONE 31593183093 No Longer Active Austin Albarado MD Active LEVOFLOXACIN 500 MG ORAL TABS take 1 tab po qday LEVOFLOXACIN 01617457436 No Longer Active Austin Albarado MD Active PREDNISONE 20 MG TAB 2 tablets today, then 1 tablet by mouth days 2-5 PREDNISONE 82773169122 No Longer Active Austin Albarado MD Active AZITHROMYCIN 500 MG SOLR 1 po q day AZITHROMYCIN 02854235434 No Longer Active Austin Albarado MD Active KEFLEX 500 MG CAP 1 po TID x 7 days CEPHALEXIN 59085402695 No Longer Active Tristan Vaugnh MD Active EQL VISION FORMULA TABS 1 TAB PO DAILY MULTIPLE VITAMINS-MINERALS 57386605902 No Longer Active Tristan Vauhgn MD Active CHANTIX STARTING MONTH ELVIS 0.5 MG X 11 & 1 MG X 42 TABS 0.5mg daily for 3 days , then 0.5mg BID for 4 days, then 1mg BID VARENICLINE TARTRATE 27939092046 No Longer Active Tristan Vaughn MD Active LEVOTHYROXINE SODIUM 200 MCG TABS 1 TAB PO DAILY LEVOTHYROXINE SODIUM 43585780226 No Longer Active Tristan Vaughn MD Active LIOTHYRONINE SODIUM 50 MCG TABS take 1 tab po qday for hypothyroidism LIOTHYRONINE SODIUM 48407122939 No Longer Active Austin Albarado MD Active SYNTHROID 0.025 MG TAB 1 tablet by mouth daily LEVOTHYROXINE SODIUM 06146862866 No Longer Active Austin Albarado MD Active ARMOUR THYROID 120 MG TABS take 1 tab po qday for hypothyroidism THYROID 17959312914 Active Austin Albarado MD Active FLONASE 50 MCG/ACT SUSP 1 spray each nostril am and hs FLUTICASONE PROPIONATE 26226601152 Active Austin Albarado MD Active ZITHROMAX 1 GM PACK DIRECTED AZITHROMYCIN 74727003225 No Longer Active Austin Albarado MD Active PREDNISONE 20 MG TAB 2 tabs daily for 3 days, 1 tab daily for 3 days, 1/2 tab daily for 2 days PREDNISONE 54727885000 No Longer Active Austin Albarado MD Active ZITHROMAX 250 MG TAB 2 po today, then 1 po q days 2-5 AZITHROMYCIN 76615086148 No Longer Active Austin Albarado MD Active NYSTATIN-TRIAMCINOLONE 669555-9.1 UNIT/GM-% OINT Apply to affected area TID NYSTATIN-TRIAMCINOLONE 65433604916 Active Austin Albarado MD Active IPRATROPIUM-ALBUTEROL 0.5-2.5 (3) MG/3ML SOLN 1 VIAL NEB Q 6 HRS PRN IPRATROPIUM-ALBUTEROL 06232927490 Active Austin Albarado MD Active PROAIR HFA 108 (90 BASE) MCG/ACT AERS take 1-2 puffs q4hrs prn cough/ SOB ALBUTEROL SULFATE 10897709491 Active Austin Albarado MD Active ADVAIR DISKUS 500-50 MCG/DOSE AEPB ONE INH BID FLUTICASONE- SALMETEROL 05822444664 Active Austin Albarado MD Active ZITHROMAX 1 GM PACK DIRECTED ZITHROMAX 1 GM PACK 123515 AZITHROMYCIN Inactive SYNTHROID 0.025 MG TAB 1 tablet by mouth daily SYNTHROID 0.025 MG TAB 708251 LEVOTHYROXINE SODIUM Inactive LIOTHYRONINE SODIUM 50 MCG TABS take 1 tab po qday for hypothyroidism LIOTHYRONINE SODIUM 50 MCG TABS 483932 LIOTHYRONINE SODIUM Inactive LEVOTHYROXINE SODIUM 200 MCG TABS 1 TAB PO DAILY LEVOTHYROXINE SODIUM 200 MCG TABS 535965 LEVOTHYROXINE SODIUM Inactive CHANTIX STARTING MONTH ELVIS [...] po q day AZITHROMYCIN 500 MG SOLR 445999 AZITHROMYCIN Inactive PREDNISONE 20 MG TAB 2 tablets today, then 1 tablet by mouth days 2-5 PREDNISONE 20 MG TAB 257038 PREDNISONE Inactive TORSEMIDE 20 MG TABS 1 TAB PO BID TORSEMIDE 20 MG TABS 349215 TORSEMIDE Inactive ALBUTEROL SULFATE (2.5 MG/3ML) 0.083% NEBU nebulize 1 vial q 4-6 hours prn shortness of breath ALBUTEROL SULFATE (2.5 MG/3ML) 0.083% NEBU 457078 ALBUTEROL SULFATE Inactive LEVAQUIN 500 MG TAB 1 tablet by mouth daily LEVAQUIN 500 MG TAB 001281 LEVOFLOXACIN Inactive PREDNISONE 20 MG TAB 2 tabs daily for 4 days, 1 tab daily for 4 days, 1/2 tab daily for 4 days PREDNISONE 20 MG TAB 350720 PREDNISONE Inactive ZITHROMAX 1 GM ORAL PACK DIRECTED ZITHROMAX 1 GM ORAL PACK 326264 AZITHROMYCIN Inactive ZITHROMAX 250 MG TAB 2 po today, then 1 po q days 2-5 ZITHROMAX 250 MG TAB 9104919 AZITHROMYCIN Inactive PREDNISONE 20 MG TAB 2 tabs daily for 3 days, 1 tab daily for 3 days, 1/2 tab daily for 2 days PREDNISONE 20 MG TAB 690630 PREDNISONE Inactive KEFLEX 500 MG CAP 1 po TID x 7 days KEFLEX 500 MG CAP 298961 CEPHALEXIN Inactive LEVOFLOXACIN 500 MG ORAL TABS take 1 tab po qday LEVOFLOXACIN 500 MG ORAL TABS 583577 LEVOFLOXACIN Inactive PREDNISONE 20 MG TAB 2 tabs daily for 3 days, 1 tab daily for 3 days, 1/2 tab daily for 2 days PREDNISONE 20 MG TAB 466739 PREDNISONE Inactive DOXYCYCLINE HYCLATE 100 MG CAP 1 cap by mouth twice daily DOXYCYCLINE HYCLATE 100 MG CAP 6726809 DOXYCYCLINE HYCLATE Inactive PREDNISONE 20 MG TAB take 3 tabs daily for 3 days, 2 tabs daily for 3 days, 1 tab daily for 3 days, 1/2 tab daily for 3 days PREDNISONE 20 MG TAB 042309 PREDNISONE Inactive PREDNISONE 20 MG TAB take 3 tabs daily for 3 days, 2 tabs daily for 3 days, 1 tab daily for 3 days, 1/2 tab daily for 3 days PREDNISONE 20 MG TAB 927125 PREDNISONE Inactive Advance Directives Directive Description Start [...] ... - Chemistry sodium, serum 140 mmol/L 745-505 9569/03/09 potassium, serum 4.9 mmol/L 3.5-5.2 chloride, serum [...] ... - Chemistry cholesterol, serum 136 mg/dL 016-171 1962/10/06 triglyceride, serum, fasting 30 mg/dL 30-200 HDL cholesterol, serum 57 mg/dL 32-96 LDL cholesterol, serum 73 mg/dL 0-130 prostate specific antigen 1.45 ng/mL 0.00-4.00 thyroxine, serum, free 0.80 ng/dL 0.76-1.46 TSH 14.03 m[iU]/mL 0.36-3.74 Encounters Code Encounter Date Provider Facility CPT-88011 Level 4 Est. Patient 21:00:28 CDT [facility] MD [facility] CPT-87431 Level 4 Est. Patient 10:03:37 CDT Austin Albarado MD [facility] CPT-04033 Level 3 Est. Patient 10:50:28 SHOE [employer]STER Austin Albarado MD [facility] CPT-70130 Level 4 Est. Patient 21:31:41 [employer] Austin Albarado MD [facility] CPT-47855 Level 3 Est. Patient 16:22:54 SHOE [employer]STER Jann Law DO [facility] CPT-58232 Level 3 Est. Patient 11:04:53 [employer]OE [employer]STER Tristan Vaughn MD [facility] CPT-31011 Level 4 Est. Patient 09:50:59 CDT Austin Albarado MD [facility] CPT-06372 Level 4 Est. Patient 09:29:00 CDT Austin Albarado MD [facility] CPT-18385 Level 4 Est. Patient 14:23:07 CDT Austin Albarado MD [facility] CPT-56635 Level 4 Est. Patient 14:27:26 CDT Austin Albarado MD [facility] CPT-04842 Level 4 Est. Patient 12:51:43 SHOE [employer]STER Austin Albarado MD [facility] CPT-38229 Level 3 New Patient 14:17:38 SHOE [employer]STER Austin Albarado MD [facility] CPT-18895 Level 3 New Patient 11:28:18 [employer]OE [employer]STER Austin Albarado MD [facility] Procedures Code Procedure Name Date Entry Date Standard Description CPT-35748 Chest 2V Frontal and Lat 15:00:00 SHOE LASTER CPT-18590 Breathing Tx 14:49:25 SHOE [employer]STER CPT-28885 Fluzone High Dose 15:08:41 SHOE [employer]STER CPT-60902 Immunization Single Admin 15:08:41 SHOE [employer]STER CPT-68001 Fluzone High Dose 17:31:19 CDT CPT-35547 Administration single or combination vaccine inc oral 17 :31:19 CDT CPT-86975 Venipuncture Draw Fee 11:03:05 CDT CPT-TCMM Transitional Care Mgmt-Moderate 16:32:35 CDT CPT-01922 Chest 2V Frontal and Lat 11:51:09 CDT CPT-G0008 Administration of Influenza Virus Vaccine 15:09:08 CDT CPT-37804 Fluzone High-Dose Intramuscular Suspension 15:09:08 CDT CPT-98811 Administration single or combination vaccine inc oral 17 :07:02 SHOE [employer]STER CPT-57078 Influenza High Dose age 65+ 17:07:02 SHOE LASTER
--- OUTSIDE RECORDS SUMMARY | 2017-02-27 22:09 | XMS REPORT | Clinical Summary ---
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 Chronic airway obstruction, not elsewhere classified Family history of myocardial infarction V17.3 Active Tracie Arrington ORDNANCE MECHANIC Family history of ischemic heart disease CAD 414.00 Active Tracie Arrington ORDNANCE MECHANIC Coronary atherosclerosis of unspecified type of vessel, point hope ira or graft Peripheral edema 782.3 Active Austin [...] 1 po BID x 7 days CEPHALEXIN 28294078611 No Longer Active Mica Sneed Active KEFLEX 500 MG CAP 1 po BID x 7 days CEPHALEXIN 39491222779 No Longer Active Simona Galloway APRN Active ACYCLOVIR 400 MG TABS 1 pill three times daily ACYCLOVIR 57592939764 No Longer Active Austin Albarado MD Active ACYCLOVIR 400 MG TABS 1 pill three times daily ACYCLOVIR 66952526095 No Longer Active Austin Albarado MD Active ALBUTEROL SULFATE 0.083 % NEBU SOLN one vial per nebulizer every 4 hours as needed Dx. J44.1 ALBUTEROL SULFATE 32971560623 Active Austin Albarado MD Active IPRATROPIUM BROMIDE 0.02 % INH SOLN 1 q 6 hr PRN Dx: J44.1 IPRATROPIUM BROMIDE 70483675048 Active Nella José LPN Active PROAIR HFA 108 (90 BASE) MCG/ACT AERS take 1-2 puffs q 4-6 hrs prn cough/ SOB ALBUTEROL SULFATE 92175142309 Active Nella José LPN Active IPRATROPIUM-ALBUTEROL 0.5-2.5 (3) MG/3ML SOLN 1 VIAL NEB Q 4-6 HRS PRN 04/18 IPRATROPIUM-ALBUTEROL 43966710417 No Longer Active Austin Albarado MD Active ATIVAN 0.5 MG TAB 1 po QD PRN Anxiety LORAZEPAM 49520777314 Active Austin Albarado MD Active PREDNISONE 20 MG ORAL TABS 3 tabs po for 3 days than,2 tabs po for 3 days,1 tab po for 3 days, 1/2 tab po for 3 days. PREDNISONE 82406221994 No Longer Active Simona Galloway APRN Active LEVAQUIN 500 MG TAB 1 tablet by mouth daily LEVOFLOXACIN 89377939656 No Longer Active Simona Galloway APRN Active PREDNISONE 20 MG TAB take 3 tabs daily for 3 days, 2 tabs daily for 3 days, 1 tab daily for 3 days, 1/2 tab daily for 3 days PREDNISONE 31264498885 No Longer Active Austin Albarado MD Active LEVAQUIN 500 MG TAB 1 tablet by mouth daily LEVOFLOXACIN 80809590654 No Longer Active Madhavi Fiore Active FUROSEMIDE 20 MG TABS take 1 tab po BID for swelling FUROSEMIDE 44320727341 Active Austin Albarado MD Active AMOXICILLIN 500 MG ORAL TABS Take one by mouth 3 times daily, morning, afternoon and evening.] AMOXICILLIN 28732830282 No Longer Active Garcia Stroud MD Active PREDNISONE 20 MG ORAL TABS 3 daily for 3 days than, 2 tabs daily for 3 days than, 2 tabs daily for 3 days than, 1 tab daily for 3 days than 1/2 tab daily for 3 days. PREDNISONE 26222748354 No Longer Active Tracie Arrington APRN Active FLUTICASONE PROPIONATE 50 MCG/ACT SUSP 1 to 2 sprays each nostril daily 08/21 FLUTICASONE PROPIONATE 20542245318 Active Austin Albarado MD Active PREDNISONE 10 MG TAB take 1 tab po qday for severe COPD PREDNISONE 61608516189 Active Austin Albarado MD Active PREDNISONE 20 MG ORAL TABS 3 TABS PO FOR 3 DAYS,THAN 2 TABS FOR 3 DAYS THAN, 1 TAB FOR 3 DAYS THAN, 1/2 TAB FOR 3 DAYS. PREDNISONE 44047179974 No Longer Active Austin Albarado MD Active LEVAQUIN 500 MG TAB 1 tablet by mouth daily for 10 days. LEVOFLOXACIN 64972936732 No Longer Active Austin Albarado MD Active PREDNISONE 20 MG TAB take 3 tabs daily for 3 days, 2 tabs daily for 3 days, 1 tab daily for 3 days, 1/2 tab daily for 3 days PREDNISONE 46719693823 No Longer Active Simona Galloway APRN Active ZITHROMAX 1 GM ORAL PACK DIRECTED AZITHROMYCIN 77059865416 No Longer Active Simona Galloway APRN Active PREDNISONE 20 MG TAB 2 tabs daily for 4 days, 1 tab daily for 4 days, 1/2 tab daily for 4 days PREDNISONE 77551629198 No Longer Active Austin Albarado MD Active LEVAQUIN 500 MG TAB 1 tablet by mouth daily LEVOFLOXACIN 70686435624 No Longer Active Austin Albarado MD Active PREDNISONE 20 MG TAB take 3 tabs daily for 3 days, 2 tabs daily for 3 days, 1 tab daily for 3 days, 1/2 tab daily for 3 days PREDNISONE 55708266181 No Longer Active Austin Albarado MD Active DOXYCYCLINE HYCLATE 100 MG CAP 1 cap by mouth twice daily DOXYCYCLINE HYCLATE 05674636453 No Longer Active 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 ORDNANCE MECHANIC Active ALBUTEROL SULFATE (2.5 MG/3ML) 0.083% NEBU nebulize 1 vial q 4-6 hours prn shortness of breath ALBUTEROL SULFATE 16367369940 No Longer Active 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 ORDNANCE MECHANIC Active TORSEMIDE 20 MG TABS 1 TAB PO BID TORSEMIDE 84464075115 No Longer Active 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 ORDNANCE MECHANIC Active PREDNISONE 20 MG TAB 2 tabs daily for 3 days, 1 tab daily for 3 days, 1/2 tab daily for 2 days PREDNISONE 04551005149 No Longer Active Austin Albarado MD Active LEVOFLOXACIN 500 MG ORAL TABS take 1 tab po qday LEVOFLOXACIN 04205533477 No Longer Active Austin Albarado MD Active PREDNISONE 20 MG TAB 2 tablets today, then 1 tablet by mouth days 2-5 PREDNISONE 77315406105 No Longer Active Austin Albarado MD Active AZITHROMYCIN 500 MG SOLR 1 po q day AZITHROMYCIN 82389193608 No Longer Active Austin Albarado MD Active KEFLEX 500 MG CAP 1 po TID x 7 days CEPHALEXIN 03884931450 No Longer Active Tristan Vaughn MD Active EQL VISION FORMULA TABS 1 TAB PO DAILY MULTIPLE VITAMINS-MINERALS 03726706334 No Longer Active Tristan Vaughn MD Active CHANTIX STARTING MONTH ELVIS 0.5 MG X 11 & 1 MG X 42 TABS 0.5mg daily for 3 days , then 0.5mg BID for 4 days, then 1mg BID VARENICLINE TARTRATE 78107785214 No Longer Active Tristan Vaughn MD Active LEVOTHYROXINE SODIUM 200 MCG TABS 1 TAB PO DAILY LEVOTHYROXINE SODIUM 53194195517 No Longer Active Tristan Vaughn MD Active LIOTHYRONINE SODIUM 50 MCG TABS take 1 tab po qday for hypothyroidism LIOTHYRONINE SODIUM 98038660087 No Longer Active Austin Albarado MD Active SYNTHROID 0.025 MG TAB 1 tablet by mouth daily LEVOTHYROXINE SODIUM 16209010675 No Longer Active Austin Albarado MD Active ARMOUR THYROID 120 MG TABS take 1 tab po qday for hypothyroidism THYROID 26747661212 Active Austin Albarado MD Active FLONASE 50 MCG/ACT SUSP 1 spray each nostril am and hs FLUTICASONE PROPIONATE Active Simona Galloway APRN Active ZITHROMAX 1 GM PACK DIRECTED AZITHROMYCIN 37254236680 No Longer Active Austin Albarado MD Active PREDNISONE 20 MG TAB 2 tabs daily for 3 days, 1 tab daily for 3 days, 1/2 tab daily for 2 days PREDNISONE 56750593849 No Longer Active Austin Albarado MD Active ZITHROMAX 250 MG TAB 2 po today, then 1 po q days 2-5 AZITHROMYCIN 06231232515 No Longer Active Austin Albarado MD Active NYSTATIN-TRIAMCINOLONE 748634-7.1 UNIT/GM-% OINT Apply to affected area TID NYSTATIN-TRIAMCINOLONE 89531598322 Active Austin Albarado MD Active ADVAIR DISKUS 500-50 MCG/DOSE AEPB ONE INH BID FLUTICASONE- SALMETEROL 59100650399 Active Austin Albarado MD Active ZITHROMAX 1 GM PACK DIRECTED ZITHROMAX 1 GM PACK 425000 AZITHROMYCIN Inactive SYNTHROID 0.025 MG TAB 1 tablet by mouth daily SYNTHROID 0.025 MG TAB 369265 LEVOTHYROXINE SODIUM Inactive LIOTHYRONINE SODIUM 50 MCG TABS take 1 tab po qday for hypothyroidism LIOTHYRONINE SODIUM 50 MCG TABS 842364 LIOTHYRONINE SODIUM Inactive LEVOTHYROXINE SODIUM 200 MCG TABS 1 TAB PO DAILY LEVOTHYROXINE SODIUM 200 MCG TABS 417979 LEVOTHYROXINE SODIUM Inactive CHANTIX STARTING MONTH ELVIS [...] po q day AZITHROMYCIN 500 MG SOLR 61862473925 AZITHROMYCIN Inactive PREDNISONE 20 MG TAB 2 tablets today, then 1 tablet by mouth days 2-5 PREDNISONE 20 MG TAB 692948 PREDNISONE Inactive TORSEMIDE 20 MG TABS 1 TAB PO BID TORSEMIDE 20 MG TABS 729858 TORSEMIDE Inactive ALBUTEROL SULFATE (2.5 MG/3ML) 0.083% NEBU nebulize 1 vial q 4-6 hours prn shortness of breath ALBUTEROL SULFATE (2.5 MG/3ML) 0.083% NEBU 595405 ALBUTEROL SULFATE Inactive LEVAQUIN 500 MG TAB 1 tablet by mouth daily LEVAQUIN 500 MG TAB 784002 LEVOFLOXACIN Inactive PREDNISONE 20 MG TAB 2 tabs daily for 4 days, 1 tab daily for 4 days, 1/2 tab daily for 4 days PREDNISONE 20 MG TAB 159598 PREDNISONE Inactive ZITHROMAX 1 GM ORAL PACK DIRECTED ZITHROMAX 1 GM ORAL PACK 647155 AZITHROMYCIN Inactive LEVAQUIN 500 MG TAB 1 tablet by mouth daily for 10 days. LEVAQUIN 500 MG TAB 922197 LEVOFLOXACIN Inactive PREDNISONE 20 MG ORAL TABS 3 TABS PO FOR 3 DAYS,THAN 2 TABS FOR 3 DAYS THAN, 1 TAB FOR 3 DAYS THAN, 1/2 TAB FOR 3 DAYS. PREDNISONE 20 MG ORAL TABS 941157 PREDNISONE Inactive PREDNISONE 20 MG ORAL TABS 3 daily for 3 days than, 2 tabs daily for 3 days than, 2 tabs daily for 3 days than, 1 tab daily for 3 days than 1/2 tab daily for 3 days. PREDNISONE 20 MG ORAL TABS 017865 PREDNISONE Inactive AMOXICILLIN 500 MG ORAL TABS Take one by mouth 3 times daily, morning, afternoon and evening.] AMOXICILLIN 500 MG ORAL TABS 909495 AMOXICILLIN Inactive LEVAQUIN 500 MG TAB 1 tablet by mouth daily LEVAQUIN 500 MG TAB 144016 LEVOFLOXACIN Inactive LEVAQUIN 500 MG TAB 1 tablet by mouth daily LEVAQUIN 500 MG TAB 560288 LEVOFLOXACIN Inactive PREDNISONE 20 MG ORAL TABS 3 tabs po for 3 days than,2 tabs po for 3 days,1 tab po for 3 days, 1/2 tab po for 3 days. PREDNISONE 20 MG ORAL TABS 716436 PREDNISONE Inactive ZITHROMAX 250 MG TAB 2 po today, then 1 po q days 2-5 ZITHROMAX 250 MG TAB 9606904 AZITHROMYCIN Inactive PREDNISONE 20 MG TAB 2 tabs daily for 3 days, 1 tab daily for 3 days, 1/2 tab daily for 2 days PREDNISONE 20 MG TAB 656908 PREDNISONE Inactive KEFLEX 500 MG CAP 1 po TID x 7 days KEFLEX 500 MG CAP 172561 CEPHALEXIN Inactive LEVOFLOXACIN 500 MG ORAL TABS take 1 tab po qday LEVOFLOXACIN 500 MG ORAL TABS 849818 LEVOFLOXACIN Inactive PREDNISONE 20 MG TAB 2 tabs daily for 3 days, 1 tab daily for 3 days, 1/2 tab daily for 2 days PREDNISONE 20 MG TAB 434554 PREDNISONE Inactive DOXYCYCLINE HYCLATE 100 MG CAP 1 cap by mouth twice daily DOXYCYCLINE HYCLATE 100 MG CAP 0959180 DOXYCYCLINE HYCLATE Inactive PREDNISONE 20 MG TAB take 3 tabs daily for 3 days, 2 tabs daily for 3 days, 1 tab daily for 3 days, 1/2 tab daily for 3 days PREDNISONE 20 MG TAB 695019 PREDNISONE Inactive PREDNISONE 20 MG TAB take 3 tabs daily for 3 days, 2 tabs daily for 3 days, 1 tab daily for 3 days, 1/2 tab daily for 3 days PREDNISONE 20 MG TAB 753845 PREDNISONE Inactive PREDNISONE 20 MG TAB take 3 tabs daily for 3 days, 2 tabs daily for 3 days, 1 tab daily for 3 days, 1/2 tab daily for 3 days PREDNISONE 20 MG TAB 609504 PREDNISONE Inactive ACYCLOVIR 400 MG TABS 1 pill three times daily ACYCLOVIR 400 MG TABS 685221 ACYCLOVIR Inactive ACYCLOVIR 400 MG TABS 1 pill three times daily ACYCLOVIR 400 MG TABS 963691 ACYCLOVIR Inactive KEFLEX 500 MG CAP 1 po BID x 7 days KEFLEX 500 MG CAP 056549 CEPHALEXIN Inactive KEFLEX 500 MG CAP 1 po BID x 7 days KEFLEX 500 MG CAP 457606 CEPHALEXIN Inactive Advance Directives Directive Description Start [...] Peptide - Chemistry sodium, serum 140 mmol/L 026-329 0825/02/09 carbon dioxide, venous blood 39.2 mmol/L 21.0-32.0 [...] 0.00-1.00 Encounters Code Encounter Date Provider Facility CPT-96130 Level 3 Est. Patient 16:07:19 CDT Simona Galloway APRN [facility] CPT-76320 Level 4 Est. Patient 13:31:03 CDT Austin Albarado MD [facility] CPT-85072 Level 4 Est. Patient 17:54:41 WELDING OPERATOR Austin Albarado MD [facility] CPT-55003 Level 4 Est. Patient 16:11:14 WELDING OPERATOR Austin Albarado MD [facility] CPT-78722 Level 4 Est. Patient 23:08:56 CDT Austin Albarado MD [facility] CPT-28584 Level 4 Est. Patient 13:27:28 CDT Garcia Stroud MD [facility] CPT-98542 Level 4 Est. Patient 10:51:20 CDT Austin Albarado MD [facility]-41573 Level 4 Est. Patient 20:09:43 WELDING OPERATOR Austin Albarado MD [facility] CPT-78133 Level 4 Est. Patient 21:00:28 CDT Austin Albarado MD [facility] CPT-14890 Level 4 Est. Patient 10:03:37 CDT Austin Albarado MD [facility] CPT-93921 Level 3 Est. Patient 10:50:28 WELDING OPERATOR Austin Albarado MD [facility]-11911 Level 4 Est. Patient 21:31:41 WELDING OPERATOR Austin Albarado MD [facility] CPT-87070 Level 3 Est. Patient 16:22:54 WELDING OPERATOR Jann Law DO [facility] CPT-57643 Level 3 Est. Patient 11:04:53 WELDING OPERATOR Tristan Vaughn MD [facility] CPT-64156 Level 4 Est. Patient 09:50:59 CDT Austin Albarado MD [facility] CPT-87619 Level 4 Est. Patient 09:29:00 CDT Austin Albarado MD [facility]-43179 Level 4 Est. Patient 14:23:07 CDT Austin Albarado MD [facility] CPT-92377 Level 4 Est. Patient 14:27:26 CDT Austin Albarado MD [facility] CPT-60919 Level 4 Est. Patient 12:51:43 WELDING OPERATOR Austin Albarado MD [facility] CPT-83202 Level 3 New Patient 14:17:38 WELDING OPERATOR Austin Albarado MD [facility] CPT-21729 Level 3 New Patient 11:28:18 WELDING OPERATOR Austin Albarado MD [facility] Procedures Code Procedure Name Date Entry Date Standard Description CPT-G0439 Subsequent Annual Wellness Exam 08:13:24 CDT CPT-TCMM Transitional Care Mgmt-Moderate 14:53:36 WELDING OPERATOR CPT-43882 No Charge Offi Visit 10:19:33 WELDING OPERATOR CPT-62311 Chest 2V Frontal and Lat - XRAY USE ONLY 15:01:41 WELDING OPERATOR CPT-29061 First Vx - Ix admin for Medicare patients 16:00:49 CDT CPT-63981 Fluzone High-Dose Intramuscular Suspension 16:00:49 CDT CPT-G0009 Administration of Pneumococcal Vaccine 13:25:27 CDT CPT-39617 Prevnar 13 Intramuscular Suspension 13:25:27 CDT 09/26 CPT-G0438 Initial Annual Wellness Exam 11:28:26 CDT CPT-31181 Chest 2V Frontal and Lat 15:00:00 WELDING OPERATOR CPT-25727 Breathing Tx 14:49:25 WELDING OPERATOR CPT-20738 Fluzone High Dose 15:08:41 WELDING OPERATOR CPT-49622 Immunization Single Admin 15:08:41 WELDING OPERATOR CPT-69720 Fluzone High Dose 17:31:19 CDT CPT-27474 Administration single or combination vaccine inc oral 17 :31:19 CDT CPT-51394 Venipuncture Draw Fee 11:03:05 CDT CPT-TCMM Transitional Care Mgmt-Moderate 16:32:35 CDT CPT-60185 Chest 2V Frontal and Lat 11:51:09 CDT CPT-G0008 Administration of Influenza Virus Vaccine 15:09:08 CDT CPT-05245 Fluzone High-Dose Intramuscular Suspension 15:09:08 CDT CPT-61684 Administration single or combination vaccine inc oral 17 :07:02 WELDING OPERATOR CPT-98660 Influenza High Dose age 65+ 17:07:02 WELDING OPERATOR
--- OUTSIDE RECORDS SUMMARY | 2017-02-27 22:09 | XMS REPORT ---
Author Author [facility] Medical Staff Organization [facility] Address [address] [place], [place] [id number] Phone [phone] Care Team Providers Care Head Of Store Operations Name Role Phone YANDY MARY MD PP [phone] Summary purpose TRANSITION OF CARE AUTO GENERATION Chief Complaint and Reason for Visit No authorized Reason for Visit (Admitting Diagnosis) is available for this visit. Problem list No authorized problems tracked for [...] for this patient visit History of procedures No procedures recorded for this patient visit. Functional status No functional or cognitive status [...]
--- OUTSIDE RECORDS SUMMARY | 2017-02-27 22:09 | XMS REPORT | Clinical Summary ---
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 ALBUTEROL SULFATE 75624456697 Active Nella José LPN Active IPRATROPIUM BROMIDE 0.02 % INH SOLN 1 q 6 hr PRN Dx: J44.1 IPRATROPIUM BROMIDE 66129272668 Active Nella José LPN Active PROAIR HFA 108 (90 BASE) MCG/ACT AERS take 1-2 puffs q 4-6 hrs prn cough/ SOB ALBUTEROL SULFATE 57485395917 Active Nella José, SETUP OPERATOR Active IPRATROPIUM-ALBUTEROL 0.5-2.5 (3) MG/3ML SOLN 1 VIAL NEB Q 4-6 HRS PRN 04/18 IPRATROPIUM-ALBUTEROL 63111092215 No Longer Active Austin Albarado MD Active ATIVAN 0.5 MG TAB 1 po QD PRN Anxiety LORAZEPAM 16031645956 Active Simona Galloway APRN Active PREDNISONE 20 MG ORAL TABS 3 tabs po for 3 days than,2 tabs po for 3 days,1 tab po for 3 days, 1/2 tab po for 3 days. PREDNISONE 56069680087 No Longer Active Simona Galloway APRN Active LEVAQUIN 500 MG TAB 1 tablet by mouth daily LEVOFLOXACIN 26249546528 No Longer Active Simona Galloway APRN Active PREDNISONE 20 MG TAB take 3 tabs daily for 3 days, 2 tabs daily for 3 days, 1 tab daily for 3 days, 1/2 tab daily for 3 days PREDNISONE 36147259170 No Longer Active Austin Albarado MD Active LEVAQUIN 500 MG TAB 1 tablet by mouth daily LEVOFLOXACIN 53157714690 No Longer Active Madhavi Macarena Active FUROSEMIDE 20 MG TABS take 1 tab po BID for swelling FUROSEMIDE 69242660366 Active Austin Albarado MD Active AMOXICILLIN 500 MG ORAL TABS Take one by mouth 3 times daily, morning, afternoon and evening.] AMOXICILLIN 76934889345 No Longer Active Garcia Stroud MD Active PREDNISONE 20 MG ORAL TABS 3 daily for 3 days than, 2 tabs daily for 3 days than, 2 tabs daily for 3 days than, 1 tab daily for 3 days than 1/2 tab daily for 3 days. PREDNISONE 07792438006 No Longer Active Tracie Arrington APRN Active FLUTICASONE PROPIONATE 50 MCG/ACT SUSP 1 to 2 sprays each nostril daily 08/21 FLUTICASONE PROPIONATE 98817793693 Active Simona Galloway APRN Active PREDNISONE 10 MG TAB take 1 tab po qday for severe COPD PREDNISONE 41517767007 Active Austin Albarado MD Active PREDNISONE 20 MG ORAL TABS 3 TABS PO FOR 3 DAYS,THAN 2 TABS FOR 3 DAYS THAN, 1 TAB FOR 3 DAYS THAN, 1/2 TAB FOR 3 DAYS. PREDNISONE 32173917005 No Longer Active Austin Albarado MD Active LEVAQUIN 500 MG TAB 1 tablet by mouth daily for 10 days. LEVOFLOXACIN 15709496365 No Longer Active Austin Albarado MD Active PREDNISONE 20 MG TAB take 3 tabs daily for 3 days, 2 tabs daily for 3 days, 1 tab daily for 3 days, 1/2 tab daily for 3 days PREDNISONE 38198514580 No Longer Active Simona Galloway APRN Active ZITHROMAX 1 GM ORAL PACK DIRECTED AZITHROMYCIN 74561953259 No Longer Active Simona Galloway APRN Active PREDNISONE 20 MG TAB 2 tabs daily for 4 days, 1 tab daily for 4 days, 1/2 tab daily for 4 days PREDNISONE 19807724875 No Longer Active Austin Albarado MD Active LEVAQUIN 500 MG TAB 1 tablet by mouth daily LEVOFLOXACIN 55224965606 No Longer Active Austin Albarado MD Active PREDNISONE 20 MG TAB take 3 tabs daily for 3 days, 2 tabs daily for 3 days, 1 tab daily for 3 days, 1/2 tab daily for 3 days PREDNISONE 47524676758 No Longer Active Austin Albarado MD Active DOXYCYCLINE HYCLATE 100 MG CAP 1 cap by mouth twice daily DOXYCYCLINE HYCLATE 13649493487 No Longer Active Esperanza Modi APRN Active ALBUTEROL SULFATE (2.5 MG/3ML) 0.083% NEBU nebulize 1 vial q 4-6 hours prn shortness of breath ALBUTEROL SULFATE 20923000663 No Longer Active Esperanza Modi APRN Active TORSEMIDE 20 MG TABS 1 TAB PO BID TORSEMIDE 91956400585 No Longer Active Esperanza Modi APRN Active PREDNISONE 20 MG TAB 2 tabs daily for 3 days, 1 tab daily for 3 days, 1/2 tab daily for 2 days PREDNISONE 45585153232 No Longer Active Austin Albarado MD Active LEVOFLOXACIN 500 MG ORAL TABS take 1 tab po qday LEVOFLOXACIN 02809056006 No Longer Active Austin Albarado MD Active PREDNISONE 20 MG TAB 2 tablets today, then 1 tablet by mouth days 2-5 PREDNISONE 73783456884 No Longer Active Austin Albarado MD Active AZITHROMYCIN 500 MG SOLR 1 po q day AZITHROMYCIN 20791753835 No Longer Active Austin Albarado MD Active KEFLEX 500 MG CAP 1 po TID x 7 days CEPHALEXIN 23764075842 No Longer Active Tristan Vaughn MD Active EQL VISION FORMULA TABS 1 TAB PO DAILY MULTIPLE VITAMINS-MINERALS 10630329662 No Longer Active Tristan Vaughn MD Active CHANTIX STARTING MONTH ELVIS 0.5 MG X 11 & 1 MG X 42 TABS 0.5mg daily for 3 days , then 0.5mg BID for 4 days, then 1mg BID VARENICLINE TARTRATE 18143044033 No Longer Active Tristan Vaughn MD Active LEVOTHYROXINE SODIUM 200 MCG TABS 1 TAB PO DAILY LEVOTHYROXINE SODIUM 63173571680 No Longer Active Tristan Vaughn MD Active LIOTHYRONINE SODIUM 50 MCG TABS take 1 tab po qday for hypothyroidism LIOTHYRONINE SODIUM 18957473537 No Longer Active Austin Albarado MD Active SYNTHROID 0.025 MG TAB 1 tablet by mouth daily LEVOTHYROXINE SODIUM 00046707789 No Longer Active Austin Albarado MD Active ARMOUR THYROID 120 MG TABS take 1 tab po qday for hypothyroidism THYROID 85154768103 Active Austin Albarado MD Active FLONASE 50 MCG/ACT SUSP 1 spray each nostril am and hs FLUTICASONE PROPIONATE Active Simona Galloway APRN Active ZITHROMAX 1 GM PACK DIRECTED AZITHROMYCIN 61191793548 No Longer Active Austin Albarado MD Active PREDNISONE 20 MG TAB 2 tabs daily for 3 days, 1 tab daily for 3 days, 1/2 tab daily for 2 days PREDNISONE 63548346801 No Longer Active Austin Albarado MD Active ZITHROMAX 250 MG TAB 2 po today, then 1 po q days 2-5 AZITHROMYCIN 19221046988 No Longer Active Austin Albarado MD Active NYSTATIN-TRIAMCINOLONE 068964-5.1 UNIT/GM-% OINT Apply to affected area TID NYSTATIN-TRIAMCINOLONE 16189234429 Active Austin Albarado MD Active ADVAIR DISKUS 500-50 MCG/DOSE AEPB ONE INH BID FLUTICASONE- SALMETEROL 51982300725 Active Austin Albarado MD Active ZITHROMAX 1 GM PACK DIRECTED ZITHROMAX 1 GM PACK 110650 AZITHROMYCIN Inactive SYNTHROID 0.025 MG TAB 1 tablet by mouth daily SYNTHROID 0.025 MG TAB 643315 LEVOTHYROXINE SODIUM Inactive LIOTHYRONINE SODIUM 50 MCG TABS take 1 tab po qday for hypothyroidism LIOTHYRONINE SODIUM 50 MCG TABS 161854 LIOTHYRONINE SODIUM Inactive LEVOTHYROXINE SODIUM 200 MCG TABS 1 TAB PO DAILY LEVOTHYROXINE SODIUM 200 MCG TABS 867223 LEVOTHYROXINE SODIUM Inactive CHANTIX STARTING MONTH ELVIS [...] po q day AZITHROMYCIN 500 MG SOLR 69576790778 AZITHROMYCIN Inactive PREDNISONE 20 MG TAB 2 tablets today, then 1 tablet by mouth days 2-5 PREDNISONE 20 MG TAB 776165 PREDNISONE Inactive TORSEMIDE 20 MG TABS 1 TAB PO BID TORSEMIDE 20 MG TABS 821112 TORSEMIDE Inactive ALBUTEROL SULFATE (2.5 MG/3ML) 0.083% NEBU nebulize 1 vial q 4-6 hours prn shortness of breath ALBUTEROL SULFATE (2.5 MG/3ML) 0.083% NEBU 473993 ALBUTEROL SULFATE Inactive LEVAQUIN 500 MG TAB 1 tablet by mouth daily LEVAQUIN 500 MG TAB 842146 LEVOFLOXACIN Inactive PREDNISONE 20 MG TAB 2 tabs daily for 4 days, 1 tab daily for 4 days, 1/2 tab daily for 4 days PREDNISONE 20 MG TAB 186359 PREDNISONE Inactive ZITHROMAX 1 GM ORAL PACK DIRECTED ZITHROMAX 1 GM ORAL PACK 950174 AZITHROMYCIN Inactive LEVAQUIN 500 MG TAB 1 tablet by mouth daily for 10 days. LEVAQUIN 500 MG TAB 021464 LEVOFLOXACIN Inactive PREDNISONE 20 MG ORAL TABS 3 TABS PO FOR 3 DAYS,THAN 2 TABS FOR 3 DAYS THAN, 1 TAB FOR 3 DAYS THAN, 1/2 TAB FOR 3 DAYS. PREDNISONE 20 MG ORAL TABS 804185 PREDNISONE Inactive PREDNISONE 20 MG ORAL TABS 3 daily for 3 days than, 2 tabs daily for 3 days than, 2 tabs daily for 3 days than, 1 tab daily for 3 days than 1/2 tab daily for 3 days. PREDNISONE 20 MG ORAL TABS 674569 PREDNISONE Inactive AMOXICILLIN 500 MG ORAL TABS Take one by mouth 3 times daily, morning, afternoon and evening.] AMOXICILLIN 500 MG ORAL TABS 025133 AMOXICILLIN Inactive LEVAQUIN 500 MG TAB 1 tablet by mouth daily LEVAQUIN 500 MG TAB 876147 LEVOFLOXACIN Inactive LEVAQUIN 500 MG TAB 1 tablet by mouth daily LEVAQUIN 500 MG TAB 717364 LEVOFLOXACIN Inactive PREDNISONE 20 MG ORAL TABS 3 tabs po for 3 days than,2 tabs po for 3 days,1 tab po for 3 days, 1/2 tab po for 3 days. PREDNISONE 20 MG ORAL TABS 865290 PREDNISONE Inactive ZITHROMAX 250 MG TAB 2 po today, then 1 po q days 2-5 ZITHROMAX 250 MG TAB 2394677 AZITHROMYCIN Inactive PREDNISONE 20 MG TAB 2 tabs daily for 3 days, 1 tab daily for 3 days, 1/2 tab daily for 2 days PREDNISONE 20 MG TAB 129896 PREDNISONE Inactive KEFLEX 500 MG CAP 1 po TID x 7 days KEFLEX 500 MG CAP 530389 CEPHALEXIN Inactive LEVOFLOXACIN 500 MG ORAL TABS take 1 tab po qday LEVOFLOXACIN 500 MG ORAL TABS 516207 LEVOFLOXACIN Inactive PREDNISONE 20 MG TAB 2 tabs daily for 3 days, 1 tab daily for 3 days, 1/2 tab daily for 2 days PREDNISONE 20 MG TAB 819880 PREDNISONE Inactive DOXYCYCLINE HYCLATE 100 MG CAP 1 cap by mouth twice daily DOXYCYCLINE HYCLATE 100 MG CAP 9594541 DOXYCYCLINE HYCLATE Inactive PREDNISONE 20 MG TAB take 3 tabs daily for 3 days, 2 tabs daily for 3 days, 1 tab daily for 3 days, 1/2 tab daily for 3 days PREDNISONE 20 MG TAB 022913 PREDNISONE Inactive PREDNISONE 20 MG TAB take 3 tabs daily for 3 days, 2 tabs daily for 3 days, 1 tab daily for 3 days, 1/2 tab daily for 3 days PREDNISONE 20 MG TAB 841359 PREDNISONE Inactive PREDNISONE 20 MG TAB take 3 tabs daily for 3 days, 2 tabs daily for 3 days, 1 tab daily for 3 days, 1/2 tab daily for 3 days PREDNISONE 20 MG TAB 053589 PREDNISONE Inactive Advance Directives Directive Description Start [...] CBC W/DIFF, B-Type Natriuretic Peptide - Chemistry carbon dioxide, venous blood 39.2 mmol/L 21.0-32.0 potassium, serum 4.4 mmol/L 3.5-5.2 chloride, serum 100 mmol/L 98-107 blood glucose 131 mg/dL 65-110 urea nitrogen, blood 27 mg/dL 7-18 sodium, serum 140 mmol/L 616-380 8735/02/09 creatinine, serum 1.30 mg/dL 0.55-1.30 alanine aminotransferase (SGPT), serum 38 U/L 12-78 aspartate aminotransferase (SGOT), serum 34 U/L 15-37 calcium, serum 8.6 mg/dL 8.5-10.1 bilirubin, serum, total 0.30 mg/dL 0.00-1.00 Lab Report: Thyroid Stimulating Hormone (L), Comp. Metabolic Panel, CBC, ... - Chemistry cholesterol, serum 189 mg/dL 442-251 9841/04/06 triglyceride, serum, fasting 117 mg/dL 30-200 HDL cholesterol, serum 70 mg/dL 32-96 LDL cholesterol, serum 96 mg/dL 0-130 chloride, serum 100 mmol/L 98-107 potassium, serum 4.9 mmol/L 3.5-5.2 carbon dioxide, venous blood 36.3 mmol/L 21.0-32.0 sodium, serum 140 mmol/L 503-650 3880/04/06 TSH 43.52 m[iU]/mL 0.36-3.74 blood glucose 62 mg/dL 65-110 urea nitrogen, blood 24 mg/dL 7-18 creatinine, serum 1.09 mg/dL 0.55-1.30 alanine aminotransferase (SGPT), serum 44 U/L 12-78 aspartate aminotransferase (SGOT), serum 25 U/L 15-37 calcium, serum 8.7 mg/dL 8.5-10.1 bilirubin, serum, total 0.50 mg/dL 0.00-1.00 Lab Report: Thyroid Stimulating Hormone [...] [phone] Encounters Code Encounter Date Provider Facility CPT-78615 Level 4 Est. Patient 17:54:41 PRODUCTION SUPERVISOR TRAINEE Austin Albarado MD [facility]-68663 Level 4 Est. Patient 16:11:14 PRODUCTION SUPERVISOR TRAINEE Austin Albarado MD [facility]-49643 Level 4 Est. Patient 23:08:56 CDT Austin Albarado MD [facility]-47019 Level 4 Est. Patient 13:27:28 CDT Garcia Stroud MD [facility]-96704 Level 4 Est. Patient 10:51:20 CDT Austin Albarado MD [facility]-19855 Level 4 Est. Patient 20:09:43 PRODUCTION SUPERVISOR TRAINEE Austin Albarado MD [facility]-04946 Level 4 Est. Patient 21:00:28 CDT Austin Albarado MD [facility] CPT-76412 Level 4 Est. Patient 10:03:37 CDT Austin Albarado MD [facility] CPT-19578 Level 3 Est. Patient 10:50:28 PRODUCTION SUPERVISOR TRAINEE Austin Albarado MD [facility]-72965 Level 4 Est. Patient 21:31:41 PRODUCTION SUPERVISOR TRAINEE Austin Albarado MD [facility] CPT-44044 Level 3 Est. Patient 16:22:54 PRODUCTION SUPERVISOR TRAINEE Jann Law DO [facility] CPT-67278 Level 3 Est. Patient 11:04:53 PRODUCTION SUPERVISOR TRAINEE Tristan Vaughn MD [facility] CPT-25167 Level 4 Est. Patient 09:50:59 CDT Austin Albarado MD [facility]-51214 Level 4 Est. Patient 09:29:00 CDT Austin Albarado MD [facility]-51573 Level 4 Est. Patient 14:23:07 CDT Austin Albarado MD [facility] CPT-65875 Level 4 Est. Patient 14:27:26 CDT Austin Albarado MD [facility] CPT-32202 Level 4 Est. Patient 12:51:43 PRODUCTION SUPERVISOR TRAINEE Austin Albarado MD [facility] CPT-30339 Level 3 New Patient 14:17:38 PRODUCTION SUPERVISOR TRAINEE Austin Albarado MD [facility] CPT-00005 Level 3 New Patient 11:28:18 PRODUCTION SUPERVISOR TRAINEE Austin Albarado MD [facility] Procedures Code Procedure Name Date Entry Date Standard Description CPT-TCMM Transitional Care Mgmt-Moderate 14:53:36 PRODUCTION SUPERVISOR TRAINEE CPT-20665 No Charge Offi Visit 10:19:33 PRODUCTION SUPERVISOR TRAINEE CPT-34049 Chest 2V Frontal and Lat - XRAY USE ONLY 15:01:41 PRODUCTION SUPERVISOR TRAINEE CPT-21655 First Vx - Ix admin for Medicare patients 16:00:49 CDT CPT-85507 Fluzone High-Dose Intramuscular Suspension 16:00:49 CDT CPT-G0009 Administration of Pneumococcal Vaccine 13:25:27 CDT CPT-50058 Prevnar 13 Intramuscular Suspension 13:25:27 CDT 09/26 CPT-G0438 Initial Annual Wellness Exam 11:28:26 CDT CPT-71144 Chest 2V Frontal and Lat 15:00:00 PRODUCTION SUPERVISOR TRAINEE CPT-59828 Breathing Tx 14:49:25 PRODUCTION SUPERVISOR TRAINEE CPT-63588 Fluzone High Dose 15:08:41 PRODUCTION SUPERVISOR TRAINEE CPT-80281 Immunization Single Admin 15:08:41 PRODUCTION SUPERVISOR TRAINEE CPT-86829 Fluzone High Dose 17:31:19 CDT CPT-14101 Administration single or combination vaccine inc oral 17 :31:19 CDT CPT-00530 Venipuncture Draw Fee 11:03:05 CDT CPT-TCMM Transitional Care Mgmt-Moderate 16:32:35 CDT CPT-09544 Chest 2V Frontal and Lat 11:51:09 CDT CPT-G0008 Administration of Influenza Virus Vaccine 15:09:08 CDT CPT-18663 Fluzone High-Dose Intramuscular Suspension 15:09:08 CDT CPT-12802 Administration single or combination vaccine inc oral 17 :07:02 PRODUCTION SUPERVISOR TRAINEE CPT-64981 Influenza High Dose age 65+ 17:07:02 PRODUCTION SUPERVISOR TRAINEE
--- OUTSIDE RECORDS SUMMARY | 2017-02-27 22:10 | XMS REPORT ---
Author Author [facility] Medical Staff Organization [facility] Address [address] [place], [place] [address] Phone [phone] Care Team Providers Care Cost Accounting Analyst Name Role Phone YANDY MARY MD PP [phone] Summary purpose TRANSITION OF CARE AUTO GENERATION [...]
--- OUTSIDE RECORDS SUMMARY | 2017-02-27 22:10 | XMS REPORT | Clinical Summary ---
Author Author Admin, LEE Organization [facility] Address Unknown Phone Unavailable Allergies, Adverse Reactions, [...] Instruction PREDNISONE 20 MG ORAL TABS 3 TABS PO FOR 3 DAYS,THAN 2 TABS FOR 3 DAYS THAN, 1 TAB FOR 3 DAYS THAN, 1/2 TAB FOR 3 DAYS. PREDNISONE 19935901467 No Longer Active Austin Albarado MD Active LEVAQUIN 500 MG TAB 1 tablet by mouth daily for 10 days. LEVOFLOXACIN 23790132519 No Longer Active Austin Albarado MD Active PREDNISONE 20 MG TAB take 3 tabs daily for 3 days, 2 tabs daily for 3 days, 1 tab daily for 3 days, 1/2 tab daily for 3 days PREDNISONE 62317350735 No Longer Active Simona Galloway APRN Active ZITHROMAX 1 GM ORAL PACK DIRECTED AZITHROMYCIN 23329589373 No Longer Active Simona Galloway APRN Active PREDNISONE 20 MG TAB 2 tabs daily for 4 days, 1 tab daily for 4 days, 1/2 tab daily for 4 days PREDNISONE 05751540673 No Longer Active Austin Albarado MD Active LEVAQUIN 500 MG TAB 1 tablet by mouth daily LEVOFLOXACIN 90393013394 No Longer Active Austin Albarado MD Active PREDNISONE 20 MG TAB take 3 tabs daily for 3 days, 2 tabs daily for 3 days, 1 tab daily for 3 days, 1/2 tab daily for 3 days PREDNISONE 14287729116 No Longer Active Austin Albarado MD Active DOXYCYCLINE HYCLATE 100 MG CAP 1 cap by mouth twice daily DOXYCYCLINE HYCLATE 30434107892 No Longer Active Joshllaftab Modi APRN Active ALBUTEROL SULFATE (2.5 MG/3ML) 0.083% NEBU nebulize 1 vial q 4-6 hours prn shortness of breath ALBUTEROL SULFATE 85567804863 No Longer Active Jillina Ly BOWEN Active TORSEMIDE 20 MG TABS 1 TAB PO BID TORSEMIDE 03087968318 No Longer Active Jillina Fraganga BOWEN Active PREDNISONE 20 MG TAB 2 tabs daily for 3 days, 1 tab daily for 3 days, 1/2 tab daily for 2 days PREDNISONE 06503779151 No Longer Active Austin Albarado MD Active LEVOFLOXACIN 500 MG ORAL TABS take 1 tab po qday LEVOFLOXACIN 03641725273 No Longer Active Austin Albarado MD Active PREDNISONE 20 MG TAB 2 tablets today, then 1 tablet by mouth days 2-5 PREDNISONE 34982406924 No Longer Active Austin Albarado MD Active AZITHROMYCIN 500 MG SOLR 1 po q day AZITHROMYCIN 95285749857 No Longer Active Austin Albarado MD Active KEFLEX 500 MG CAP 1 po TID x 7 days CEPHALEXIN 66986939093 No Longer Active Tristan Vaughn MD Active EQL VISION FORMULA TABS 1 TAB PO DAILY MULTIPLE VITAMINS-MINERALS 00375971531 No Longer Active Tristan Vaughn MD Active CHANTIX STARTING MONTH ELVIS 0.5 MG X 11 & 1 MG X 42 TABS 0.5mg daily for 3 days , then 0.5mg BID for 4 days, then 1mg BID VARENICLINE TARTRATE 75894398475 No Longer Active Tristan Vaughn MD Active LEVOTHYROXINE SODIUM 200 MCG TABS 1 TAB PO DAILY LEVOTHYROXINE SODIUM 93426182451 No Longer Active Tristan Vaughn MD Active LIOTHYRONINE SODIUM 50 MCG TABS take 1 tab po qday for hypothyroidism LIOTHYRONINE SODIUM 65791913774 No Longer Active Austin Albarado MD Active SYNTHROID 0.025 MG TAB 1 tablet by mouth daily LEVOTHYROXINE SODIUM 75947856645 No Longer Active Austin Albarado MD Active ARMOUR THYROID 120 MG TABS take 1 tab po qday for hypothyroidism THYROID 52485676827 Active Austin Albarado MD Active FLONASE 50 MCG/ACT SUSP 1 spray each nostril am and hs FLUTICASONE PROPIONATE 32904706033 Active Austin Albarado MD Active ZITHROMAX 1 GM PACK DIRECTED AZITHROMYCIN 72883868897 No Longer Active Austin Albarado MD Active PREDNISONE 20 MG TAB 2 tabs daily for 3 days, 1 tab daily for 3 days, 1/2 tab daily for 2 days PREDNISONE 40614757264 No Longer Active Austin Albarado MD Active ZITHROMAX 250 MG TAB 2 po today, then 1 po q days 2-5 AZITHROMYCIN 90437243400 No Longer Active Austin Albarado MD Active NYSTATIN-TRIAMCINOLONE 221475-0.1 UNIT/GM-% OINT Apply to affected area TID NYSTATIN-TRIAMCINOLONE 60996312366 Active Austin Albarado MD Active IPRATROPIUM-ALBUTEROL 0.5-2.5 (3) MG/3ML SOLN 1 VIAL NEB Q 6 HRS PRN IPRATROPIUM-ALBUTEROL 18248573543 Active Austin Albarado MD Active PROAIR HFA 108 (90 BASE) MCG/ACT AERS take 1-2 puffs q4hrs prn cough/ SOB ALBUTEROL SULFATE 25955959445 Active Austin Albarado MD Active ADVAIR DISKUS 500-50 MCG/DOSE AEPB ONE INH BID FLUTICASONE- SALMETEROL 39884385249 Active Austin Albarado MD Active ZITHROMAX 1 GM PACK DIRECTED ZITHROMAX 1 GM PACK 274752 AZITHROMYCIN Inactive SYNTHROID 0.025 MG TAB 1 tablet by mouth daily SYNTHROID 0.025 MG TAB 127504 LEVOTHYROXINE SODIUM Inactive LIOTHYRONINE SODIUM 50 MCG TABS take 1 tab po qday for hypothyroidism LIOTHYRONINE SODIUM 50 MCG TABS 884461 LIOTHYRONINE SODIUM Inactive LEVOTHYROXINE SODIUM 200 MCG TABS 1 TAB PO DAILY LEVOTHYROXINE SODIUM 200 MCG TABS 776535 LEVOTHYROXINE SODIUM Inactive CHANTIX STARTING MONTH ELVIS [...] po q day AZITHROMYCIN 500 MG SOLR 86896466558 AZITHROMYCIN Inactive PREDNISONE 20 MG TAB 2 tablets today, then 1 tablet by mouth days 2-5 PREDNISONE 20 MG TAB 443615 PREDNISONE Inactive TORSEMIDE 20 MG TABS 1 TAB PO BID TORSEMIDE 20 MG TABS 752073 TORSEMIDE Inactive ALBUTEROL SULFATE (2.5 MG/3ML) 0.083% NEBU nebulize 1 vial q 4-6 hours prn shortness of breath ALBUTEROL SULFATE (2.5 MG/3ML) 0.083% NEBU 457913 ALBUTEROL SULFATE Inactive LEVAQUIN 500 MG TAB 1 tablet by mouth daily LEVAQUIN 500 MG TAB 928153 LEVOFLOXACIN Inactive PREDNISONE 20 MG TAB 2 tabs daily for 4 days, 1 tab daily for 4 days, 1/2 tab daily for 4 days PREDNISONE 20 MG TAB 374738 PREDNISONE Inactive ZITHROMAX 1 GM ORAL PACK DIRECTED ZITHROMAX 1 GM ORAL PACK 546002 AZITHROMYCIN Inactive LEVAQUIN 500 MG TAB 1 tablet by mouth daily for 10 days. LEVAQUIN 500 MG TAB 314293 LEVOFLOXACIN Inactive PREDNISONE 20 MG ORAL TABS 3 TABS PO FOR 3 DAYS,THAN 2 TABS FOR 3 DAYS THAN, 1 TAB FOR 3 DAYS THAN, 1/2 TAB FOR 3 DAYS. PREDNISONE 20 MG ORAL TABS 371214 PREDNISONE Inactive ZITHROMAX 250 MG TAB 2 po today, then 1 po q days 2-5 ZITHROMAX 250 MG TAB 5248021 AZITHROMYCIN Inactive PREDNISONE 20 MG TAB 2 tabs daily for 3 days, 1 tab daily for 3 days, 1/2 tab daily for 2 days PREDNISONE 20 MG TAB 703437 PREDNISONE Inactive KEFLEX 500 MG CAP 1 po TID x 7 days KEFLEX 500 MG CAP 351452 CEPHALEXIN Inactive LEVOFLOXACIN 500 MG ORAL TABS take 1 tab po qday LEVOFLOXACIN 500 MG ORAL TABS 220807 LEVOFLOXACIN Inactive PREDNISONE 20 MG TAB 2 tabs daily for 3 days, 1 tab daily for 3 days, 1/2 tab daily for 2 days PREDNISONE 20 MG TAB 084597 PREDNISONE Inactive DOXYCYCLINE HYCLATE 100 MG CAP 1 cap by mouth twice daily DOXYCYCLINE HYCLATE 100 MG CAP 8482865 DOXYCYCLINE HYCLATE Inactive PREDNISONE 20 MG TAB take 3 tabs daily for 3 days, 2 tabs daily for 3 days, 1 tab daily for 3 days, 1/2 tab daily for 3 days PREDNISONE 20 MG TAB 687025 PREDNISONE Inactive PREDNISONE 20 MG TAB take 3 tabs daily for 3 days, 2 tabs daily for 3 days, 1 tab daily for 3 days, 1/2 tab daily for 3 days PREDNISONE 20 MG TAB 235315 PREDNISONE Inactive Advance Directives Directive Description Start [...] E&M - 3141-9 233 [lb_av] Weight Measured Diagnostic Results Date Name Value Unit Range Description Lab Report: CBC W/DIFF, Comp. Metabolic Panel, B-Type Natriuretic Peptid ... - Chemistry sodium, serum 140 mmol/L 418-030 7866/03/09 potassium, serum 4.9 mmol/L 3.5-5.2 chloride, serum [...] ... - Chemistry cholesterol, serum 136 mg/dL [phone]/10/06 triglyceride, serum, fasting 30 mg/dL 30-200 HDL cholesterol, serum 57 mg/dL 32-96 LDL cholesterol, serum 73 mg/dL 0-130 prostate specific antigen 1.45 ng/mL 0.00-4.00 thyroxine, serum, free 0.80 ng/dL 0.76-1.46 TSH 14.03 m[iU]/mL 0.36-3.74 Encounters Code Encounter Date Provider Facility CPT-25064 Level 4 Est. Patient 20:09:43 AUTOMATION ANALYST Austin Albarado MD [facility] CPT-20695 Level 4 Est. Patient 21:00:28 CDT Austin Albarado MD [facility] CPT-95134 Level 4 Est. Patient 10:03:37 CDT Austin Albarado MD [facility]-31732 Level 3 Est. Patient 10:50:28 AUTOMATION ANALYST Austin Albarado MD [facility] CPT-69983 Level 4 Est. Patient 21:31:41 AUTOMATION ANALYST Austin Albarado MD [facility] CPT-34120 Level 3 Est. Patient 16:22:54 AUTOMATION ANALYST Jann Law DO [facility] CPT-69017 Level 3 Est. Patient 11:04:53 AUTOMATION ANALYST Tristan Vaughn MD [facility]-15782 Level 4 Est. Patient 09:50:59 CDT Austin Albarado MD [facility] CPT-91205 Level 4 Est. Patient 09:29:00 CDT Austin Albarado MD [facility]-18701 Level 4 Est. Patient 14:23:07 CDT Austin Albarado MD [facility] CPT-73821 Level 4 Est. Patient 14:27:26 CDT Austin Albarado MD [facility]-22231 Level 4 Est. Patient 12:51:43 AUTOMATION ANALYST Austin Albarado MD [facility] CPT-68773 Level 3 New Patient 14:17:38 AUTOMATION ANALYST Austin Albarado MD [facility] CPT-90304 Level 3 New Patient 11:28:18 AUTOMATION ANALYST Austin Albarado MD [facility] Procedures Code Procedure Name Date Entry Date Standard Description CPT-90031 Chest 2V Frontal and Lat 15:00:00 AUTOMATION ANALYST CPT-60610 Breathing Tx 14:49:25 AUTOMATION ANALYST CPT-08065 Fluzone High Dose 15:08:41 AUTOMATION ANALYST CPT-16745 Immunization Single Admin 15:08:41 AUTOMATION ANALYST CPT-87860 Fluzone High Dose 17:31:19 CDT CPT-69210 Administration single or combination vaccine inc oral 17 :31:19 CDT CPT-75466 Venipuncture Draw Fee 11:03:05 CDT CPT-TCMM Transitional Care Mgmt-Moderate 16:32:35 CDT CPT-89193 Chest 2V Frontal and Lat 11:51:09 CDT CPT-G0008 Administration of Influenza Virus Vaccine 15:09:08 CDT CPT-45253 Fluzone High-Dose Intramuscular Suspension 15:09:08 CDT CPT-97039 Administration single or combination vaccine inc oral 17 :07:02 AUTOMATION ANALYST CPT-83957 Influenza High Dose age 65+ 17:07:02 AUTOMATION ANALYST
--- OUTSIDE RECORDS SUMMARY | 2017-02-27 22:11 | XMS REPORT | Clinical Summary ---
Author Author Admin, E Organization [employer] Address Unknown Phone Unavailable Allergies, Adverse Reactions, [...] site Screening for lipoid disorders V77.91 Active Mcia Sneed Screening for lipoid disorders Health screening [...] Coronary atherosclerosis of unspecified type of vessel, [place] or graft Peripheral edema 782.3 Active Austin [...] Q 6 hrs prn DX: J44.9 IPRATROPIUM-ALBUTEROL 93350892931 Active Mackenzie Sher RMA Active IPRATROPIUM BROMIDE 0.02 % INH SOLN 1 q 6 hr PRN Dx: J44.1 12/29 IPRATROPIUM BROMIDE 15408326269 No Longer Active Mackenzie Christos RMA Active ACYCLOVIR 400 MG TABS 1 pill three times daily ACYCLOVIR 83085602155 No Longer Active Austin Albarado MD Active POTASSIUM CHLORIDE ER 20 MEQ ORAL CR-TABS 1 po BID along with the lasix 12/24 POTASSIUM CHLORIDE 32126030665 Active Austin Albarado MD Active FUROSEMIDE 40 MG TAB 1 tablet by mouth BID for swelling FUROSEMIDE 77514021035 Active Austin Albarado MD Active CELEXA 20 MG TABS 1 tablet by mouth daily CITALOPRAM HYDROBROMIDE 39659191917 Active Austin Albarado MD Active KEFLEX 500 MG CAP 1 po BID x 7 days CEPHALEXIN 59248882876 No Longer Active Mica Sneed Active KEFLEX 500 MG CAP 1 po BID x 7 days CEPHALEXIN 59127983546 No Longer Active Simona Galloway APRN Active ACYCLOVIR 400 MG TABS 1 pill three times daily ACYCLOVIR 41545051932 No Longer Active Austin Albarado MD Active ACYCLOVIR 400 MG TABS 1 pill three times daily ACYCLOVIR 43887194767 No Longer Active Austin Albarado MD Active ALBUTEROL SULFATE 0.083 % NEBU SOLN one vial per nebulizer every 4 hours as needed Dx. J44.1 ALBUTEROL SULFATE 64902528732 Active Austin Albarado MD Active PROAIR HFA 108 (90 BASE) MCG/ACT AERS take 1-2 puffs q 4-6 hrs prn cough/ SOB ALBUTEROL SULFATE 66801825008 Active Nella José LPN Active IPRATROPIUM-ALBUTEROL 0.5-2.5 (3) MG/3ML SOLN 1 VIAL NEB Q 4-6 HRS PRN 04/18 IPRATROPIUM-ALBUTEROL 58151225742 No Longer Active Austin Albarado MD Active ATIVAN 0.5 MG TAB 1 po QD PRN Anxiety LORAZEPAM 24374135786 Active Austin Albarado MD Active PREDNISONE 20 MG ORAL TABS 3 tabs po for 3 days than,2 tabs po for 3 days,1 tab po for 3 days, 1/2 tab po for 3 days. PREDNISONE 97409801068 No Longer Active Simona Galloway APRN Active LEVAQUIN 500 MG TAB 1 tablet by mouth daily LEVOFLOXACIN 80814584634 No Longer Active Simona Galloway APRN Active PREDNISONE 20 MG TAB take 3 tabs daily for 3 days, 2 tabs daily for 3 days, 1 tab daily for 3 days, 1/2 tab daily for 3 days PREDNISONE 90194999761 No Longer Active Austin Albarado MD Active LEVAQUIN 500 MG TAB 1 tablet by mouth daily LEVOFLOXACIN 09785761112 No Longer Active Madhavi Macarena Active FUROSEMIDE 20 MG TABS take 1 tab po BID for swelling FUROSEMIDE 33231078822 Active Austin Albarado MD Active AMOXICILLIN 500 MG ORAL TABS Take one by mouth 3 times daily, morning, afternoon and evening.] AMOXICILLIN 76625001187 No Longer Active Garcia Stroud MD Active PREDNISONE 20 MG ORAL TABS 3 daily for 3 days than, 2 tabs daily for 3 days than, 2 tabs daily for 3 days than, 1 tab daily for 3 days than 1/2 tab daily for 3 days. PREDNISONE 22048787859 No Longer Active Tracie Arrington APRN Active FLUTICASONE PROPIONATE 50 MCG/ACT SUSP 1 to 2 sprays each nostril daily 08/21 FLUTICASONE PROPIONATE 11235144801 Active Austin Albarado MD Active PREDNISONE 10 MG TAB take 1 tab po qday for severe COPD PREDNISONE 37542411813 Active Austin Albarado MD Active PREDNISONE 20 MG ORAL TABS 3 TABS PO FOR 3 DAYS,THAN 2 TABS FOR 3 DAYS THAN, 1 TAB FOR 3 DAYS THAN, 1/2 TAB FOR 3 DAYS. PREDNISONE 63182458589 No Longer Active Austin Albarado MD Active LEVAQUIN 500 MG TAB 1 tablet by mouth daily for 10 days. LEVOFLOXACIN 03512694973 No Longer Active Austin Albarado MD Active PREDNISONE 20 MG TAB take 3 tabs daily for 3 days, 2 tabs daily for 3 days, 1 tab daily for 3 days, 1/2 tab daily for 3 days PREDNISONE 86108802910 No Longer Active Simona Galloway APRN Active ZITHROMAX 1 GM ORAL PACK DIRECTED AZITHROMYCIN 99325119754 No Longer Active Simona Galloway APRN Active PREDNISONE 20 MG TAB 2 tabs daily for 4 days, 1 tab daily for 4 days, 1/2 tab daily for 4 days PREDNISONE 48511778659 No Longer Active Austin Albarado MD Active LEVAQUIN 500 MG TAB 1 tablet by mouth daily LEVOFLOXACIN 03522073360 No Longer Active Austin Albarado MD Active PREDNISONE 20 MG TAB take 3 tabs daily for 3 days, 2 tabs daily for 3 days, 1 tab daily for 3 days, 1/2 tab daily for 3 days PREDNISONE 45435295977 No Longer Active Austin Albarado MD Active DOXYCYCLINE HYCLATE 100 MG CAP 1 cap by mouth twice daily DOXYCYCLINE HYCLATE 18786323633 No Longer Active Esperanza Modi APRN Active ALBUTEROL SULFATE (2.5 MG/3ML) 0.083% NEBU nebulize 1 vial q 4-6 hours prn shortness of breath ALBUTEROL SULFATE 64503790688 No Longer Active Esperanza Modi APRN Active TORSEMIDE 20 MG TABS 1 TAB PO BID TORSEMIDE 97694182902 No Longer Active Esperanza Modi JESSI Active PREDNISONE 20 MG TAB 2 tabs daily for 3 days, 1 tab daily for 3 days, 1/2 tab daily for 2 days PREDNISONE 51861963737 No Longer Active Austin Albarado MD Active LEVOFLOXACIN 500 MG ORAL TABS take 1 tab po qday LEVOFLOXACIN 35705826053 No Longer Active Austin Albarado MD Active PREDNISONE 20 MG TAB 2 tablets today, then 1 tablet by mouth days 2-5 PREDNISONE 08906976304 No Longer Active Austin Albarado MD Active AZITHROMYCIN 500 MG SOLR 1 po q day AZITHROMYCIN 67019429306 No Longer Active Austin Albarado MD Active KEFLEX 500 MG CAP 1 po TID x 7 days CEPHALEXIN 71563694580 No Longer Active Tristan Vaughn MD Active EQL VISION FORMULA TABS 1 TAB PO DAILY MULTIPLE VITAMINS-MINERALS 65924326867 No Longer Active Tristan Vaughn MD Active CHANTIX STARTING MONTH ELVIS 0.5 MG X 11 & 1 MG X 42 TABS 0.5mg daily for 3 days , then 0.5mg BID for 4 days, then 1mg BID VARENICLINE TARTRATE 50080593436 No Longer Active Tristan Vaughn MD Active LEVOTHYROXINE SODIUM 200 MCG TABS 1 TAB PO DAILY LEVOTHYROXINE SODIUM 29887535656 No Longer Active Tristan Vaughn MD Active LIOTHYRONINE SODIUM 50 MCG TABS take 1 tab po qday for hypothyroidism LIOTHYRONINE SODIUM 00566661455 No Longer Active Austin Albarado MD Active SYNTHROID 0.025 MG TAB 1 tablet by mouth daily LEVOTHYROXINE SODIUM 10900700952 No Longer Active Austin Albarado MD Active ARMOUR THYROID 120 MG TABS take 1 tab po qday for hypothyroidism THYROID 81312659750 Active Austin Albarado MD Active FLONASE 50 MCG/ACT SUSP 1 spray each nostril am and hs FLUTICASONE PROPIONATE Active Simona Galloway APRN Active ZITHROMAX 1 GM PACK DIRECTED AZITHROMYCIN 01066298205 No Longer Active Austin Albarado MD Active PREDNISONE 20 MG TAB 2 tabs daily for 3 days, 1 tab daily for 3 days, 1/2 tab daily for 2 days PREDNISONE 60615198272 No Longer Active Austin Albarado MD Active ZITHROMAX 250 MG TAB 2 po today, then 1 po q days 2-5 AZITHROMYCIN 32543280177 No Longer Active Austin Albarado MD Active NYSTATIN-TRIAMCINOLONE 113353-9.1 UNIT/GM-% OINT Apply to affected area TID NYSTATIN-TRIAMCINOLONE 85774385498 Active Austin Albarado MD Active ADVAIR DISKUS 500-50 MCG/DOSE AEPB ONE INH BID FLUTICASONE- SALMETEROL 90780946595 Active Austin Albarado MD Active ZITHROMAX 1 GM PACK DIRECTED ZITHROMAX 1 GM PACK 152087 AZITHROMYCIN Inactive SYNTHROID 0.025 MG TAB 1 tablet by mouth daily SYNTHROID 0.025 MG TAB 157180 LEVOTHYROXINE SODIUM Inactive LIOTHYRONINE SODIUM 50 MCG TABS take 1 tab po qday for hypothyroidism LIOTHYRONINE SODIUM 50 MCG TABS 123068 LIOTHYRONINE SODIUM Inactive LEVOTHYROXINE SODIUM 200 MCG TABS 1 TAB PO DAILY LEVOTHYROXINE SODIUM 200 MCG TABS 506487 LEVOTHYROXINE SODIUM Inactive CHANTIX STARTING MONTH ELVIS [...] po q day AZITHROMYCIN 500 MG SOLR 03766710940 AZITHROMYCIN Inactive PREDNISONE 20 MG TAB 2 tablets today, then 1 tablet by mouth days 2-5 PREDNISONE 20 MG TAB 934594 PREDNISONE Inactive TORSEMIDE 20 MG TABS 1 TAB PO BID TORSEMIDE 20 MG TABS 908538 TORSEMIDE Inactive ALBUTEROL SULFATE (2.5 MG/3ML) 0.083% NEBU nebulize 1 vial q 4-6 hours prn shortness of breath ALBUTEROL SULFATE (2.5 MG/3ML) 0.083% NEBU 302154 ALBUTEROL SULFATE Inactive LEVAQUIN 500 MG TAB 1 tablet by mouth daily LEVAQUIN 500 MG TAB 024662 LEVOFLOXACIN Inactive PREDNISONE 20 MG TAB 2 tabs daily for 4 days, 1 tab daily for 4 days, 1/2 tab daily for 4 days PREDNISONE 20 MG TAB 513008 PREDNISONE Inactive ZITHROMAX 1 GM ORAL PACK DIRECTED ZITHROMAX 1 GM ORAL PACK 991600 AZITHROMYCIN Inactive LEVAQUIN 500 MG TAB 1 tablet by mouth daily for 10 days. LEVAQUIN 500 MG TAB 146534 LEVOFLOXACIN Inactive PREDNISONE 20 MG ORAL TABS 3 TABS PO FOR 3 DAYS,THAN 2 TABS FOR 3 DAYS THAN, 1 TAB FOR 3 DAYS THAN, 1/2 TAB FOR 3 DAYS. PREDNISONE 20 MG ORAL TABS 155467 PREDNISONE Inactive PREDNISONE 20 MG ORAL TABS 3 daily for 3 days than, 2 tabs daily for 3 days than, 2 tabs daily for 3 days than, 1 tab daily for 3 days than 1/2 tab daily for 3 days. PREDNISONE 20 MG ORAL TABS 904778 PREDNISONE Inactive AMOXICILLIN 500 MG ORAL TABS Take one by mouth 3 times daily, morning, afternoon and evening.] AMOXICILLIN 500 MG ORAL TABS 490112 AMOXICILLIN Inactive LEVAQUIN 500 MG TAB 1 tablet by mouth daily LEVAQUIN 500 MG TAB 327538 LEVOFLOXACIN Inactive LEVAQUIN 500 MG TAB 1 tablet by mouth daily LEVAQUIN 500 MG TAB 940400 LEVOFLOXACIN Inactive PREDNISONE 20 MG ORAL TABS 3 tabs po for 3 days than,2 tabs po for 3 days,1 tab po for 3 days, 1/2 tab po for 3 days. PREDNISONE 20 MG ORAL TABS 390663 PREDNISONE Inactive IPRATROPIUM BROMIDE 0.02 % INH SOLN 1 q 6 hr PRN Dx: J44.1 12/29 IPRATROPIUM BROMIDE 0.02 % INH SOLN 926013 IPRATROPIUM BROMIDE Inactive ZITHROMAX 250 MG TAB 2 po today, then 1 po q days 2-5 ZITHROMAX 250 MG TAB 7661284 AZITHROMYCIN Inactive PREDNISONE 20 MG TAB 2 tabs daily for 3 days, 1 tab daily for 3 days, 1/2 tab daily for 2 days PREDNISONE 20 MG TAB 207667 PREDNISONE Inactive KEFLEX 500 MG CAP 1 po TID x 7 days KEFLEX 500 MG CAP 302316 CEPHALEXIN Inactive LEVOFLOXACIN 500 MG ORAL TABS take 1 tab po qday LEVOFLOXACIN 500 MG ORAL TABS 795648 LEVOFLOXACIN Inactive PREDNISONE 20 MG TAB 2 tabs daily for 3 days, 1 tab daily for 3 days, 1/2 tab daily for 2 days PREDNISONE 20 MG TAB 875675 PREDNISONE Inactive DOXYCYCLINE HYCLATE 100 MG CAP 1 cap by mouth twice daily DOXYCYCLINE HYCLATE 100 MG CAP 5704598 DOXYCYCLINE HYCLATE Inactive PREDNISONE 20 MG TAB take 3 tabs daily for 3 days, 2 tabs daily for 3 days, 1 tab daily for 3 days, 1/2 tab daily for 3 days PREDNISONE 20 MG TAB 011519 PREDNISONE Inactive PREDNISONE 20 MG TAB take 3 tabs daily for 3 days, 2 tabs daily for 3 days, 1 tab daily for 3 days, 1/2 tab daily for 3 days PREDNISONE 20 MG TAB 736875 PREDNISONE Inactive PREDNISONE 20 MG TAB take 3 tabs daily for 3 days, 2 tabs daily for 3 days, 1 tab daily for 3 days, 1/2 tab daily for 3 days PREDNISONE 20 MG TAB 288524 PREDNISONE Inactive ACYCLOVIR 400 MG TABS 1 pill three times daily ACYCLOVIR 400 MG TABS 19720518 ACYCLOVIR Inactive ACYCLOVIR 400 MG TABS 1 pill three times daily ACYCLOVIR 400 MG TABS 19720518 ACYCLOVIR Inactive KEFLEX 500 MG CAP 1 po BID x 7 days KEFLEX 500 MG CAP 042143 CEPHALEXIN Inactive KEFLEX 500 MG CAP 1 po BID x 7 days KEFLEX 500 MG CAP 909676 CEPHALEXIN Inactive ACYCLOVIR 400 MG TABS 1 [...] 39.2 mmol/L 21.0-32.0 sodium, serum 140 mmol/L 231-169 0585/02/09 urea nitrogen, blood 27 mg/dL 7-18 creatinine, serum 1.30 mg/dL 0.55-1.30 alanine aminotransferase (SGPT), serum 38 U/L 12-78 aspartate aminotransferase (SGOT), serum 34 U/L 15-37 calcium, serum 8.6 mg/dL 8.5-10.1 bilirubin, serum, total 0.30 mg/dL 0.00-1.00 Encounters Code Encounter Date Provider Facility CPT-46656 Level 4 Est. Patient 18:17:08 CDT Austin Albarado MD [facility] CPT-53002 Level 3 Est. Patient 16:07:19 CDT Simona Galloway APRN [facility] CPT-33594 Level 4 Est. Patient 13:31:03 CDT Austin Albarado MD [facility] CPT-82897 Level 4 Est. Patient 17:54:41 SURGICAL PHYSICIAN ASSISTANT Austin Albarado MD [facility] CPT-07230 Level 4 Est. Patient 16:11:14 SURGICAL PHYSICIAN ASSISTANT Austin Albarado MD [facility] CPT-09326 Level 4 Est. Patient 23:08:56 CDT Austin Albarado MD [facility]-86551 Level 4 Est. Patient 13:27:28 CDT Garcia Stroud MD [facility] CPT-10140 Level 4 Est. Patient 10:51:20 CDT Austin Albarado MD [facility] CPT-35944 Level 4 Est. Patient 20:09:43 SURGICAL PHYSICIAN ASSISTANT Austin Albarado MD [facility] CPT-85890 Level 4 Est. Patient 21:00:28 CDT Austin Albarado MD [facility] CPT-46375 Level 4 Est. Patient 10:03:37 CDT Austin Albarado MD [facility] CPT-13682 Level 3 Est. Patient 10:50:28 SURGICAL PHYSICIAN ASSISTANT Austin Albarado MD [facility] CPT-06063 Level 4 Est. Patient 21:31:41 SURGICAL PHYSICIAN ASSISTANT Austin Albarado MD [facility] CPT-46874 Level 3 Est. Patient 16:22:54 SURGICAL PHYSICIAN ASSISTANT Jann Law DO [facility] CPT-73471 Level 3 Est. Patient 11:04:53 SURGICAL PHYSICIAN ASSISTANT Tristan Vaughn MD [facility] CPT-75438 Level 4 Est. Patient 09:50:59 CDT Austin Albarado MD [facility] CPT-72534 Level 4 Est. Patient 09:29:00 CDT Austin Albarado MD [facility] CPT-36245 Level 4 Est. Patient 14:23:07 CDT Austin Albarado MD [facility] CPT-69226 Level 4 Est. Patient 14:27:26 CDT Austin Albarado MD [facility] CPT-10207 Level 4 Est. Patient 12:51:43 SURGICAL PHYSICIAN ASSISTANT Austin Albarado MD [facility] CPT-66557 Level 3 New Patient 14:17:38 SURGICAL PHYSICIAN ASSISTANT Austin Albarado MD [facility] CPT-43452 Level 3 New Patient 11:28:18 SURGICAL PHYSICIAN ASSISTANT Austin Albarado MD [facility] Procedures Code Procedure Name Date Entry Date Standard Description CPT-G0439 Subsequent Annual Wellness Exam 08:13:24 CDT CPT-TCMM Transitional Care Mgmt-Moderate 14:53:36 SURGICAL PHYSICIAN ASSISTANT CPT-28343 No Charge Offi Visit 10:19:33 SURGICAL PHYSICIAN ASSISTANT CPT-96113 Chest 2V Frontal and Lat - XRAY USE ONLY 15:01:41 SURGICAL PHYSICIAN ASSISTANT CPT-26399 First Vx - Ix admin for Medicare patients 16:00:49 CDT CPT-02797 Fluzone High-Dose Intramuscular Suspension 16:00:49 CDT CPT-G0009 Administration of Pneumococcal Vaccine 13:25:27 CDT CPT-43963 Prevnar 13 Intramuscular Suspension 13:25:27 CDT 09/26 CPT-G0438 Initial Annual Wellness Exam 11:28:26 CDT CPT-58380 Chest 2V Frontal and Lat 15:00:00 SURGICAL PHYSICIAN ASSISTANT CPT-02825 Breathing Tx 14:49:25 SURGICAL PHYSICIAN ASSISTANT CPT-20980 Fluzone High Dose 15:08:41 SURGICAL PHYSICIAN ASSISTANT CPT-50855 Immunization Single Admin 15:08:41 SURGICAL PHYSICIAN ASSISTANT CPT-45593 Fluzone High Dose 17:31:19 CDT CPT-95862 Administration single or combination vaccine inc oral 17 :31:19 CDT CPT-84852 Venipuncture Draw Fee 11:03:05 CDT CPT-TCMM Transitional Care Mgmt-Moderate 16:32:35 CDT CPT-23420 Chest 2V Frontal and Lat 11:51:09 CDT CPT-G0008 Administration of Influenza Virus Vaccine 15:09:08 CDT CPT-11312 Fluzone High-Dose Intramuscular Suspension 15:09:08 CDT CPT-99093 Administration single or combination vaccine inc oral 17 :07:02 SURGICAL PHYSICIAN ASSISTANT CPT-55837 Influenza High Dose age 65+ 17:07:02 SURGICAL PHYSICIAN ASSISTANT
--- OUTSIDE RECORDS SUMMARY | 2017-02-27 22:12 | XMS REPORT | Clinical Summary ---
Author Author Admin, [employer] Organization [employer] Address Unknown Phone Unavailable Allergies, Adverse Reactions, [...] manifestations COPD, acute exacerbation 491.21 Active Jann Lwa DO Obstructive chronic bronchitis with (acute) exacerbation [...] Coronary atherosclerosis of unspecified type of vessel, tribal or graft U R I ICD-465.9 Inactive Austin Albarado MD 06/13 Bronchitis-Acute ICD-466.0 Inactive Austin Albarado MD Medication List Medication Instructions Start Date Stop Date Generic Name NDC Status Provider Patient Instruction FUROSEMIDE 20 MG TABS take 1 tab po BID for swelling FUROSEMIDE 14259089542 Active Austin Albarado MD Active LEVAQUIN 500 MG TAB 1 tablet by mouth daily LEVOFLOXACIN 34942247051 Active Mica Sneed Active PREDNISONE 20 MG ORAL TABS 3 tabs po for 3 days than,2 tabs po for 3 days,1 tab po for 3 days, 1/2 tab po for 3 days. PREDNISONE 02798235484 Active Madhavi Fiore Active AMOXICILLIN 500 MG ORAL TABS Take one by mouth 3 times daily, morning, afternoon and evening.] AMOXICILLIN 83101233626 No Longer Active Garcia Stroud MD Active PREDNISONE 20 MG ORAL TABS 3 daily for 3 days than, 2 tabs daily for 3 days than, 2 tabs daily for 3 days than, 1 tab daily for 3 days than 1/2 tab daily for 3 days. PREDNISONE 65345861046 No Longer Active Tracie Arrington APRN Active FLUTICASONE PROPIONATE 50 MCG/ACT SUSP 1 to 2 sprays each nostril daily 08/21 FLUTICASONE PROPIONATE 85728762968 Active Simona Galloway APRN Active PREDNISONE 10 MG TAB take 1 tab po qday for severe COPD PREDNISONE 65711173173 Active Austin Albarado MD Active PREDNISONE 20 MG ORAL TABS 3 TABS PO FOR 3 DAYS,THAN 2 TABS FOR 3 DAYS THAN, 1 TAB FOR 3 DAYS THAN, 1/2 TAB FOR 3 DAYS. PREDNISONE 53403092007 No Longer Active Austin Albarado MD Active LEVAQUIN 500 MG TAB 1 tablet by mouth daily for 10 days. LEVOFLOXACIN 86493909180 No Longer Active Austin Albarado MD Active PREDNISONE 20 MG TAB take 3 tabs daily for 3 days, 2 tabs daily for 3 days, 1 tab daily for 3 days, 1/2 tab daily for 3 days PREDNISONE 40817849711 No Longer Active Simona Galloway APRN Active ZITHROMAX 1 GM ORAL PACK DIRECTED AZITHROMYCIN 20023701600 No Longer Active Simona Galloway APRN Active PREDNISONE 20 MG TAB 2 tabs daily for 4 days, 1 tab daily for 4 days, 1/2 tab daily for 4 days PREDNISONE 33372886581 No Longer Active Austni Albarado MD Active LEVAQUIN 500 MG TAB 1 tablet by mouth daily LEVOFLOXACIN 75837709979 No Longer Active Austin Albarado MD Active PREDNISONE 20 MG TAB take 3 tabs daily for 3 days, 2 tabs daily for 3 days, 1 tab daily for 3 days, 1/2 tab daily for 3 days PREDNISONE 25556388358 No Longer Active Austin Albarado MD Active DOXYCYCLINE HYCLATE 100 MG CAP 1 cap by mouth twice daily DOXYCYCLINE HYCLATE 58748502220 No Longer Active Esperanza Modi APRN Active ALBUTEROL SULFATE (2.5 MG/3ML) 0.083% NEBU nebulize 1 vial q 4-6 hours prn shortness of breath ALBUTEROL SULFATE 51406225305 No Longer Active Esperanza Modi APRN Active TORSEMIDE 20 MG TABS 1 TAB PO BID TORSEMIDE 20759265577 No Longer Active Jirufus Modi APRN Active PREDNISONE 20 MG TAB 2 tabs daily for 3 days, 1 tab daily for 3 days, 1/2 tab daily for 2 days PREDNISONE 25076053191 No Longer Active Austin Albarado MD Active LEVOFLOXACIN 500 MG ORAL TABS take 1 tab po qday LEVOFLOXACIN 69812031319 No Longer Active Austin Albarado MD Active PREDNISONE 20 MG TAB 2 tablets today, then 1 tablet by mouth days 2-5 PREDNISONE 43241253482 No Longer Active Austin Albarado MD Active AZITHROMYCIN 500 MG SOLR 1 po q day AZITHROMYCIN 38926534358 No Longer Active Austin Albarado MD Active KEFLEX 500 MG CAP 1 po TID x 7 days CEPHALEXIN 01248571100 No Longer Active Tristan Vaughn MD Active EQL VISION FORMULA TABS 1 TAB PO DAILY MULTIPLE VITAMINS-MINERALS 75469339203 No Longer Active Tristan Vaughn MD Active CHANTIX STARTING MONTH ELVIS 0.5 MG X 11 & 1 MG X 42 TABS 0.5mg daily for 3 days , then 0.5mg BID for 4 days, then 1mg BID VARENICLINE TARTRATE 46220889464 No Longer Active Tristan Vaughn MD Active LEVOTHYROXINE SODIUM 200 MCG TABS 1 TAB PO DAILY LEVOTHYROXINE SODIUM 89641444887 No Longer Active Tristan Vaughn MD Active LIOTHYRONINE SODIUM 50 MCG TABS take 1 tab po qday for hypothyroidism LIOTHYRONINE SODIUM 77500152749 No Longer Active Austin Albarado MD Active SYNTHROID 0.025 MG TAB 1 tablet by mouth daily LEVOTHYROXINE SODIUM 04753387664 No Longer Active Austin Albarado MD Active ARMOUR THYROID 120 MG TABS take 1 tab po qday for hypothyroidism THYROID 93500591307 Active Austin Albarado MD Active FLONASE 50 MCG/ACT SUSP 1 spray each nostril am and hs FLUTICASONE PROPIONATE Active Simona Galloway APRN Active ZITHROMAX 1 GM PACK DIRECTED AZITHROMYCIN 73937993477 No Longer Active Austin Albarado MD Active PREDNISONE 20 MG TAB 2 tabs daily for 3 days, 1 tab daily for 3 days, 1/2 tab daily for 2 days PREDNISONE 06890351858 No Longer Active Austin Albarado MD Active ZITHROMAX 250 MG TAB 2 po today, then 1 po q days 2-5 AZITHROMYCIN 72005694188 No Longer Active Austin Albarado MD Active NYSTATIN-TRIAMCINOLONE 492754-0.1 UNIT/GM-% OINT Apply to affected area TID NYSTATIN-TRIAMCINOLONE 96813262121 Active Austin Albarado MD Active IPRATROPIUM-ALBUTEROL 0.5-2.5 (3) MG/3ML SOLN 1 VIAL NEB Q 6 HRS PRN IPRATROPIUM-ALBUTEROL 99947545329 Active Simona Galloway APRN Active PROAIR HFA 108 (90 BASE) MCG/ACT AERS take 1-2 puffs q4hrs prn cough/ SOB ALBUTEROL SULFATE 91022878876 Active Austin Albarado MD Active ADVAIR DISKUS 500-50 MCG/DOSE AEPB ONE INH BID FLUTICASONE- SALMETEROL 92641415663 Active Austin Albarado MD Active ZITHROMAX 1 GM PACK DIRECTED ZITHROMAX 1 GM PACK 851820 AZITHROMYCIN Inactive SYNTHROID 0.025 MG TAB 1 tablet by mouth daily SYNTHROID 0.025 MG TAB 794805 LEVOTHYROXINE SODIUM Inactive LIOTHYRONINE SODIUM 50 MCG TABS take 1 tab po qday for hypothyroidism LIOTHYRONINE SODIUM 50 MCG TABS 305380 LIOTHYRONINE SODIUM Inactive LEVOTHYROXINE SODIUM 200 MCG TABS 1 TAB PO DAILY LEVOTHYROXINE SODIUM 200 MCG TABS 437389 LEVOTHYROXINE SODIUM Inactive CHANTIX STARTING MONTH ELVIS [...] po q day AZITHROMYCIN 500 MG SOLR 81274666326 AZITHROMYCIN Inactive PREDNISONE 20 MG TAB 2 tablets today, then 1 tablet by mouth days 2-5 PREDNISONE 20 MG TAB 205448 PREDNISONE Inactive TORSEMIDE 20 MG TABS 1 TAB PO BID TORSEMIDE 20 MG TABS 687192 TORSEMIDE Inactive ALBUTEROL SULFATE (2.5 MG/3ML) 0.083% NEBU nebulize 1 vial q 4-6 hours prn shortness of breath ALBUTEROL SULFATE (2.5 MG/3ML) 0.083% NEBU 361373 ALBUTEROL SULFATE Inactive LEVAQUIN 500 MG TAB 1 tablet by mouth daily LEVAQUIN 500 MG TAB 892674 LEVOFLOXACIN Inactive PREDNISONE 20 MG TAB 2 tabs daily for 4 days, 1 tab daily for 4 days, 1/2 tab daily for 4 days PREDNISONE 20 MG TAB 721832 PREDNISONE Inactive ZITHROMAX 1 GM ORAL PACK DIRECTED ZITHROMAX 1 GM ORAL PACK 418927 AZITHROMYCIN Inactive LEVAQUIN 500 MG TAB 1 tablet by mouth daily for 10 days. LEVAQUIN 500 MG TAB 730753 LEVOFLOXACIN Inactive PREDNISONE 20 MG ORAL TABS 3 TABS PO FOR 3 DAYS,THAN 2 TABS FOR 3 DAYS THAN, 1 TAB FOR 3 DAYS THAN, 1/2 TAB FOR 3 DAYS. PREDNISONE 20 MG ORAL TABS 905999 PREDNISONE Inactive PREDNISONE 20 MG ORAL TABS 3 daily for 3 days than, 2 tabs daily for 3 days than, 2 tabs daily for 3 days than, 1 tab daily for 3 days than 1/2 tab daily for 3 days. PREDNISONE 20 MG ORAL TABS 991772 PREDNISONE Inactive AMOXICILLIN 500 MG ORAL TABS Take one by mouth 3 times daily, morning, afternoon and evening.] AMOXICILLIN 500 MG ORAL TABS 364046 AMOXICILLIN Inactive ZITHROMAX 250 MG TAB 2 po today, then 1 po q days 2-5 ZITHROMAX 250 MG TAB 7994161 AZITHROMYCIN Inactive PREDNISONE 20 MG TAB 2 tabs daily for 3 days, 1 tab daily for 3 days, 1/2 tab daily for 2 days PREDNISONE 20 MG TAB 708255 PREDNISONE Inactive KEFLEX 500 MG CAP 1 po TID x 7 days KEFLEX 500 MG CAP 924299 CEPHALEXIN Inactive LEVOFLOXACIN 500 MG ORAL TABS take 1 tab po qday LEVOFLOXACIN 500 MG ORAL TABS 230455 LEVOFLOXACIN Inactive PREDNISONE 20 MG TAB 2 tabs daily for 3 days, 1 tab daily for 3 days, 1/2 tab daily for 2 days PREDNISONE 20 MG TAB 076818 PREDNISONE Inactive DOXYCYCLINE HYCLATE 100 MG CAP 1 cap by mouth twice daily DOXYCYCLINE HYCLATE 100 MG CAP 4842738 DOXYCYCLINE HYCLATE Inactive PREDNISONE 20 MG TAB take 3 tabs daily for 3 days, 2 tabs daily for 3 days, 1 tab daily for 3 days, 1/2 tab daily for 3 days PREDNISONE 20 MG TAB 570521 PREDNISONE Inactive PREDNISONE 20 MG TAB take 3 tabs daily for 3 days, 2 tabs daily for 3 days, 1 tab daily for 3 days, 1/2 tab daily for 3 days PREDNISONE 20 MG TAB 224633 PREDNISONE Inactive Advance Directives Directive Description Start [...] 43.52 m[iU]/mL 0.36-3.74 sodium, serum 140 mmol/L 553-504 5396/04/06 carbon dioxide, venous blood 36.3 mmol/L 21.0-32.0 potassium, serum 4.9 mmol/L 3.5-5.2 chloride, serum 100 mmol/L 98-107 blood glucose 62 mg/dL 65-110 urea nitrogen, blood 24 mg/dL 7-18 creatinine, serum 1.09 mg/dL 0.55-1.30 alanine aminotransferase (SGPT), serum 44 U/L 12-78 aspartate aminotransferase (SGOT), serum 25 U/L 15-37 calcium, serum 8.7 mg/dL 8.5-10.1 bilirubin, serum, total 0.50 mg/dL 0.00-1.00 cholesterol, serum 189 mg/dL 078-723 4418/04/06 triglyceride, serum, fasting 117 mg/dL 30-200 HDL [...] 142-424 Encounters Code Encounter Date Provider Facility CPT-94713 Level 4 Est. Patient 23:08:56 CDT Austin Albarado MD [facility] CPT-96483 Level 4 Est. Patient 13:27:28 CDT Garcia Stroud MD [facility]-89312 Level 4 Est. Patient 10:51:20 CDT Austin Albarado MD [facility] CPT-65763 Level 4 Est. Patient 20:09:43 REHABILITATION PROGRAM MANAGER Austin Albarado MD [facility] CPT-74462 Level 4 Est. Patient 21:00:28 CDT Austin Albarado MD [facility] CPT-13894 Level 4 Est. Patient 10:03:37 CDT Austin Albarado MD [facility] CPT-90985 Level 3 Est. Patient 10:50:28 REHABILITATION PROGRAM MANAGER Austin Albarado MD [facility] CPT-20626 Level 4 Est. Patient 21:31:41 REHABILITATION PROGRAM MANAGER Austin Albarado MD [facility] CPT-12989 Level 3 Est. Patient 16:22:54 REHABILITATION PROGRAM MANAGER Jann Law DO [facility] CPT-69056 Level 3 Est. Patient 11:04:53 REHABILITATION PROGRAM MANAGER Tristan Vaughn MD [facility] CPT-26495 Level 4 Est. Patient 09:50:59 CDT Austin Albarado MD [facility] CPT-93595 Level 4 Est. Patient 09:29:00 CDT Austin Albarado MD [facility] CPT-33932 Level 4 Est. Patient 14:23:07 CDT Austin Albarado MD [facility] CPT-01674 Level 4 Est. Patient 14:27:26 CDT Austin Albarado MD [facility] CPT-05633 Level 4 Est. Patient 12:51:43 REHABILITATION PROGRAM MANAGER Austin Albarado MD [facility] CPT-10746 Level 3 New Patient 14:17:38 REHABILITATION PROGRAM MANAGER Austin Albarado MD [facility] CPT-16379 Level 3 New Patient 11:28:18 REHABILITATION PROGRAM MANAGER Austin Albarado MD [facility] Procedures Code Procedure Name Date Entry Date Standard Description CPT-23267 First Vx - Ix admin for Medicare patients 16:00:49 CDT CPT-33338 Fluzone High-Dose Intramuscular Suspension 16:00:49 CDT CPT-G0009 Administration of Pneumococcal Vaccine 13:25:27 CDT CPT-58430 Prevnar 13 Intramuscular Suspension 13:25:27 CDT 09/26 CPT-G0438 Initial Annual Wellness Exam 11:28:26 CDT CPT-41574 Chest 2V Frontal and Lat 15:00:00 REHABILITATION PROGRAM MANAGER CPT-27928 Breathing Tx 14:49:25 REHABILITATION PROGRAM MANAGER CPT-78733 Fluzone High Dose 15:08:41 REHABILITATION PROGRAM MANAGER CPT-72274 Immunization Single Admin 15:08:41 REHABILITATION PROGRAM MANAGER CPT-84283 Fluzone High Dose 17:31:19 CDT CPT-98380 Administration single or combination vaccine inc oral 17 :31:19 CDT CPT-79808 Venipuncture Draw Fee 11:03:05 CDT CPT-TCMM Transitional Care Mgmt-Moderate 16:32:35 CDT CPT-13717 Chest 2V Frontal and Lat 11:51:09 CDT CPT-G0008 Administration of Influenza Virus Vaccine 15:09:08 CDT CPT-89235 Fluzone High-Dose Intramuscular Suspension 15:09:08 CDT CPT-12461 Administration single or combination vaccine inc oral 17 :07:02 REHABILITATION PROGRAM MANAGER CPT-50088 Influenza High Dose age 65+ 17:07:02 REHABILITATION PROGRAM MANAGER
--- OUTSIDE RECORDS SUMMARY | 2017-02-27 22:12 | XMS REPORT | Clinical Summary ---
Author Author Admin, LEE Organization [facility] Address Unknown Phone Unavailable Allergies, Adverse Reactions, [...] Coronary atherosclerosis of unspecified type of vessel, mashpee or graft U R I ICD-465.9 Inactive Austin Albarado MD 06/13 Bronchitis-Acute ICD-466.0 Inactive Austin Albarado MD Medication List Medication Instructions Start Date Stop Date Generic Name NDC Status Provider Patient Instruction FUROSEMIDE 20 MG TABS 2 today and tomorrow and then 1 daily as needed for swelling FUROSEMIDE [id number] Active Garcia Stroud MD Active AMOXICILLIN 500 MG ORAL TABS Take one by mouth 3 times daily, morning, afternoon and evening.] AMOXICILLIN 76521617501 No Longer Active Garcia Stroud MD Active PREDNISONE 20 MG ORAL TABS 3 daily for 3 days than, 2 tabs daily for 3 days than, 2 tabs daily for 3 days than, 1 tab daily for 3 days than 1/2 tab daily for 3 days. PREDNISONE 25516837127 No Longer Active Tracie Arrington APRN Active FLUTICASONE PROPIONATE 50 MCG/ACT SUSP 1 to 2 sprays each nostril daily 08/21 FLUTICASONE PROPIONATE 03468398291 Active Simona Galloway APRN Active PREDNISONE 10 MG TAB take 1 tab po qday for severe COPD PREDNISONE 09490404272 Active Austin Albarado MD Active PREDNISONE 20 MG ORAL TABS 3 TABS PO FOR 3 DAYS,THAN 2 TABS FOR 3 DAYS THAN, 1 TAB FOR 3 DAYS THAN, 1/2 TAB FOR 3 DAYS. PREDNISONE 70600596778 No Longer Active Austin Albarado MD Active LEVAQUIN 500 MG TAB 1 tablet by mouth daily for 10 days. LEVOFLOXACIN 39773146761 No Longer Active Austin Albarado MD Active PREDNISONE 20 MG TAB take 3 tabs daily for 3 days, 2 tabs daily for 3 days, 1 tab daily for 3 days, 1/2 tab daily for 3 days PREDNISONE 58135535107 No Longer Active Simona Galloway APRN Active ZITHROMAX 1 GM ORAL PACK DIRECTED AZITHROMYCIN 14336507065 No Longer Active Simona Galloway APRN Active PREDNISONE 20 MG TAB 2 tabs daily for 4 days, 1 tab daily for 4 days, 1/2 tab daily for 4 days PREDNISONE 14715839742 No Longer Active Austin Albarado MD Active LEVAQUIN 500 MG TAB 1 tablet by mouth daily LEVOFLOXACIN 11920861759 No Longer Active Austin Albarado MD Active PREDNISONE 20 MG TAB take 3 tabs daily for 3 days, 2 tabs daily for 3 days, 1 tab daily for 3 days, 1/2 tab daily for 3 days PREDNISONE 95298157616 No Longer Active Austin Albarado MD Active DOXYCYCLINE HYCLATE 100 MG CAP 1 cap by mouth twice daily DOXYCYCLINE HYCLATE 05338061721 No Longer Active Jikatyaina Ly BOWEN Active ALBUTEROL SULFATE (2.5 MG/3ML) 0.083% NEBU nebulize 1 vial q 4-6 hours prn shortness of breath ALBUTEROL SULFATE 50519459790 No Longer Active 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 [employer] Active TORSEMIDE 20 MG TABS 1 TAB PO BID TORSEMIDE 23236944165 No Longer Active Jillina Frashonnal [employer] Active PREDNISONE 20 MG TAB 2 tabs daily for 3 days, 1 tab daily for 3 days, 1/2 tab daily for 2 days PREDNISONE 13287464483 No Longer Active Austin Albarado MD Active LEVOFLOXACIN 500 MG ORAL TABS take 1 tab po qday LEVOFLOXACIN 71739082039 No Longer Active Austin Albarado MD Active PREDNISONE 20 MG TAB 2 tablets today, then 1 tablet by mouth days 2-5 PREDNISONE 67401173095 No Longer Active Austin Albarado MD Active AZITHROMYCIN 500 MG SOLR 1 po q day AZITHROMYCIN 43957971557 No Longer Active Austin Albarado MD Active KEFLEX 500 MG CAP 1 po TID x 7 days CEPHALEXIN 00587095616 No Longer Active Tristan Vaughn MD Active EQL VISION FORMULA TABS 1 TAB PO DAILY MULTIPLE VITAMINS-MINERALS 54561171320 No Longer Active Tristan Vaughn MD Active CHANTIX STARTING MONTH ELVIS 0.5 MG X 11 & 1 MG X 42 TABS 0.5mg daily for 3 days , then 0.5mg BID for 4 days, then 1mg BID VARENICLINE TARTRATE 15580157413 No Longer Active Tristan Vaughn MD Active LEVOTHYROXINE SODIUM 200 MCG TABS 1 TAB PO DAILY LEVOTHYROXINE SODIUM 88687151576 No Longer Active Tristan Vaughn MD Active LIOTHYRONINE SODIUM 50 MCG TABS take 1 tab po qday for hypothyroidism LIOTHYRONINE SODIUM 29089905415 No Longer Active Austin Albarado MD Active SYNTHROID 0.025 MG TAB 1 tablet by mouth daily LEVOTHYROXINE SODIUM 34943904869 No Longer Active Austin Albarado MD Active ARMOUR THYROID 120 MG TABS take 1 tab po qday for hypothyroidism THYROID 57207702719 Active Austin Albarado MD Active FLONASE 50 MCG/ACT SUSP 1 spray each nostril am and hs FLUTICASONE PROPIONATE Active Simona Nilesh [employer] Active ZITHROMAX 1 GM PACK DIRECTED AZITHROMYCIN 71630625543 No Longer Active Austin Albarado MD Active PREDNISONE 20 MG TAB 2 tabs daily for 3 days, 1 tab daily for 3 days, 1/2 tab daily for 2 days PREDNISONE 27672195283 No Longer Active Austin Albarado MD Active ZITHROMAX 250 MG TAB 2 po today, then 1 po q days 2-5 AZITHROMYCIN 51032349240 No Longer Active Austin Albarado MD Active NYSTATIN-TRIAMCINOLONE 326435-0.1 UNIT/GM-% OINT Apply to affected area TID NYSTATIN-TRIAMCINOLONE 98932026730 Active Austin Albarado MD Active IPRATROPIUM-ALBUTEROL 0.5-2.5 (3) MG/3ML SOLN 1 VIAL NEB Q 6 HRS PRN IPRATROPIUM-ALBUTEROL 73813306979 Active Austin Albarado MD Active PROAIR HFA 108 (90 BASE) MCG/ACT AERS take 1-2 puffs q4hrs prn cough/ SOB ALBUTEROL SULFATE 04390372327 Active Austin Albarado MD Active ADVAIR DISKUS 500-50 MCG/DOSE AEPB ONE INH BID FLUTICASONE- SALMETEROL 94043948739 Active Austin Albarado MD Active ZITHROMAX 1 GM PACK DIRECTED ZITHROMAX 1 GM PACK 528570 AZITHROMYCIN Inactive SYNTHROID 0.025 MG TAB 1 tablet by mouth daily SYNTHROID 0.025 MG TAB 329149 LEVOTHYROXINE SODIUM Inactive LIOTHYRONINE SODIUM 50 MCG TABS take 1 tab po qday for hypothyroidism LIOTHYRONINE SODIUM 50 MCG TABS 804820 LIOTHYRONINE SODIUM Inactive LEVOTHYROXINE SODIUM 200 MCG TABS 1 TAB PO DAILY LEVOTHYROXINE SODIUM 200 MCG TABS 198024 LEVOTHYROXINE SODIUM Inactive CHANTIX STARTING MONTH ELVIS [...] po q day AZITHROMYCIN 500 MG SOLR 34796396441 AZITHROMYCIN Inactive PREDNISONE 20 MG TAB 2 tablets today, then 1 tablet by mouth days 2-5 PREDNISONE 20 MG TAB 799914 PREDNISONE Inactive TORSEMIDE 20 MG TABS 1 TAB PO BID TORSEMIDE 20 MG TABS 674101 TORSEMIDE Inactive ALBUTEROL SULFATE (2.5 MG/3ML) 0.083% NEBU nebulize 1 vial q 4-6 hours prn shortness of breath ALBUTEROL SULFATE (2.5 MG/3ML) 0.083% NEBU 005999 ALBUTEROL SULFATE Inactive LEVAQUIN 500 MG TAB 1 tablet by mouth daily LEVAQUIN 500 MG TAB 956517 LEVOFLOXACIN Inactive PREDNISONE 20 MG TAB 2 tabs daily for 4 days, 1 tab daily for 4 days, 1/2 tab daily for 4 days PREDNISONE 20 MG TAB 257595 PREDNISONE Inactive ZITHROMAX 1 GM ORAL PACK DIRECTED ZITHROMAX 1 GM ORAL PACK 545685 AZITHROMYCIN Inactive LEVAQUIN 500 MG TAB 1 tablet by mouth daily for 10 days. LEVAQUIN 500 MG TAB 316075 LEVOFLOXACIN Inactive PREDNISONE 20 MG ORAL TABS 3 TABS PO FOR 3 DAYS,THAN 2 TABS FOR 3 DAYS THAN, 1 TAB FOR 3 DAYS THAN, 1/2 TAB FOR 3 DAYS. PREDNISONE 20 MG ORAL TABS 580428 PREDNISONE Inactive PREDNISONE 20 MG ORAL TABS 3 daily for 3 days than, 2 tabs daily for 3 days than, 2 tabs daily for 3 days than, 1 tab daily for 3 days than 1/2 tab daily for 3 days. PREDNISONE 20 MG ORAL TABS 216183 PREDNISONE Inactive AMOXICILLIN 500 MG ORAL TABS Take one by mouth 3 times daily, morning, afternoon and evening.] AMOXICILLIN 500 MG ORAL TABS 176277 AMOXICILLIN Inactive ZITHROMAX 250 MG TAB 2 po today, then 1 po q days 2-5 ZITHROMAX 250 MG TAB 5182922 AZITHROMYCIN Inactive PREDNISONE 20 MG TAB 2 tabs daily for 3 days, 1 tab daily for 3 days, 1/2 tab daily for 2 days PREDNISONE 20 MG TAB 763498 PREDNISONE Inactive KEFLEX 500 MG CAP 1 po TID x 7 days KEFLEX 500 MG CAP 682254 CEPHALEXIN Inactive LEVOFLOXACIN 500 MG ORAL TABS take 1 tab po qday LEVOFLOXACIN 500 MG ORAL TABS 792272 LEVOFLOXACIN Inactive PREDNISONE 20 MG TAB 2 tabs daily for 3 days, 1 tab daily for 3 days, 1/2 tab daily for 2 days PREDNISONE 20 MG TAB 152107 PREDNISONE Inactive DOXYCYCLINE HYCLATE 100 MG CAP 1 cap by mouth twice daily DOXYCYCLINE HYCLATE 100 MG CAP 4905732 DOXYCYCLINE HYCLATE Inactive PREDNISONE 20 MG TAB take 3 tabs daily for 3 days, 2 tabs daily for 3 days, 1 tab daily for 3 days, 1/2 tab daily for 3 days PREDNISONE 20 MG TAB 006387 PREDNISONE Inactive PREDNISONE 20 MG TAB take 3 tabs daily for 3 days, 2 tabs daily for 3 days, 1 tab daily for 3 days, 1/2 tab daily for 3 days PREDNISONE 20 MG TAB 078568 PREDNISONE Inactive Advance Directives Directive Description Start [...] ... - Chemistry cholesterol, serum 136 mg/dL 544-672 6064/10/06 triglyceride, serum, fasting 30 mg/dL 30-200 HDL cholesterol, serum 57 mg/dL 32-96 LDL cholesterol, serum 73 mg/dL 0-130 prostate specific antigen 1.45 ng/mL 0.00-4.00 thyroxine, serum, free 0.80 ng/dL 0.76-1.46 TSH 14.03 m[iU]/mL 0.36-3.74 Lab Report: Thyroid Stimulating Hormone (L), Comp. Metabolic Panel, CBC, ... - Chemistry TSH 43.52 m[iU]/mL 0.36-3.74 sodium, serum 140 mmol/L 169-071 0092/04/06 carbon dioxide, venous blood 36.3 mmol/L 21.0-32.0 potassium, serum 4.9 mmol/L 3.5-5.2 chloride, serum 100 mmol/L 98-107 blood glucose 62 mg/dL 65-110 urea nitrogen, blood 24 mg/dL 7-18 creatinine, serum 1.09 mg/dL 0.55-1.30 alanine aminotransferase (SGPT), serum 44 U/L 12-78 aspartate aminotransferase (SGOT), serum 25 U/L 15-37 calcium, serum 8.7 mg/dL 8.5-10.1 bilirubin, serum, total 0.50 mg/dL 0.00-1.00 cholesterol, serum 189 mg/dL 284-555 8250/04/06 triglyceride, serum, fasting 117 mg/dL 30-200 HDL [...] [id number] Encounters Code Encounter Date Provider Facility CPT-33233 Level 4 Est. Patient 13:27:28 CDT Garcia Stroud MD [facility] CPT-07822 Level 4 Est. Patient 10:51:20 CDT Austin Albarado MD [facility] CPT-52964 Level 4 Est. Patient 20:09:43 VISUAL MANAGER Austin Albarado MD [facility] CPT-25533 Level 4 Est. Patient 21:00:28 CDT Austin Albarado MD [facility] CPT-58659 Level 4 Est. Patient 10:03:37 CDT Austin Albarado MD [facility] CPT-62535 Level 3 Est. Patient 10:50:28 VISUAL MANAGER Austin Albarado MD [facility] CPT-22894 Level 4 Est. Patient 21:31:41 VISUAL MANAGER Austin Albarado MD [facility] CPT-55820 Level 3 Est. Patient 16:22:54 VISUAL MANAGER Jann Law DO [facility] CPT-17547 Level 3 Est. Patient 11:04:53 VISUAL MANAGER Tristan Vaughn MD [facility] CPT-21686 Level 4 Est. Patient 09:50:59 CDT Austin Albarado MD [facility] CPT-99611 Level 4 Est. Patient 09:29:00 CDT Austin Albarado MD [facility] CPT-20870 Level 4 Est. Patient 14:23:07 CDT Austin Albarado MD [facility] CPT-95826 Level 4 Est. Patient 14:27:26 CDT Austin Albarado MD [facility] CPT-26604 Level 4 Est. Patient 12:51:43 VISUAL MANAGER Austin Albarado MD [facility] CPT-56879 Level 3 New Patient 14:17:38 VISUAL MANAGER Austin Albarado MD [facility] CPT-10887 Level 3 New Patient 11:28:18 VISUAL MANAGER Austin Albarado MD [facility] Procedures Code Procedure Name Date Entry Date Standard Description CPT-G0009 Administration of Pneumococcal Vaccine 13:25:27 CDT CPT-35482 Prevnar 13 Intramuscular Suspension 13:25:27 CDT 09/26 CPT-G0438 Initial Annual Wellness Exam 11:28:26 CDT CPT-98226 Chest 2V Frontal and Lat 15:00:00 VISUAL MANAGER CPT-83352 Breathing Tx 14:49:25 VISUAL MANAGER CPT-82397 Fluzone High Dose 15:08:41 VISUAL MANAGER CPT-46492 Immunization Single Admin 15:08:41 VISUAL MANAGER CPT-91877 Fluzone High Dose 17:31:19 CDT CPT-65828 Administration single or combination vaccine inc oral 17 :31:19 CDT CPT-61509 Venipuncture Draw Fee 11:03:05 CDT CPT-TCMM Transitional Care Mgmt-Moderate 16:32:35 CDT CPT-34446 Chest 2V Frontal and Lat 11:51:09 CDT CPT-G0008 Administration of Influenza Virus Vaccine 15:09:08 CDT CPT-67820 Fluzone High-Dose Intramuscular Suspension 15:09:08 CDT CPT-43732 Administration single or combination vaccine inc oral 17 :07:02 VISUAL MANAGER CPT-41136 Influenza High Dose age 65+ 17:07:02 VISUAL MANAGER
--- OUTSIDE RECORDS SUMMARY | 2017-02-27 22:13 | XMS REPORT ---
Author Author [facility] Medical Staff Organization [facility] Address [address] [place], [place] [id number] Phone [phone] Care Team Providers Care Installation Technician Name Role Phone YANDY MARY MD PP [phone] Summary purpose TRANSITION OF CARE AUTO GENERATION [...]
--- OUTSIDE RECORDS SUMMARY | 2017-02-27 22:13 | XMS REPORT | Clinical Summary ---
Author Author Admin, DILLONE Organization [facility] Address Unknown Phone Unavailable Allergies, Adverse Reactions, [...] Coronary atherosclerosis of unspecified type of vessel, twin hills or graft Peripheral edema 782.3 Active Austin Albarado MD Edema U R I ICD-465.9 Inactive Austin Albarado MD 06/13 Bronchitis-Acute ICD-466.0 Inactive Austin Albarado MD Medication List Medication Instructions Start Date Stop Date Generic Name NDC Status Provider Patient Instruction FUROSEMIDE 20 MG TABS take 1 tab po BID for swelling FUROSEMIDE 63099983573 Active Austin Albarado MD Active LEVAQUIN 500 MG TAB 1 tablet by mouth daily LEVOFLOXACIN 65872052133 Active Mica Sneed Active PREDNISONE 20 MG ORAL TABS 3 tabs po for 3 days than,2 tabs po for 3 days,1 tab po for 3 days, 1/2 tab po for 3 days. PREDNISONE 83827181659 Active Madhavi Fiore Active AMOXICILLIN 500 MG ORAL TABS Take one by mouth 3 times daily, morning, afternoon and evening.] AMOXICILLIN 77946100225 No Longer Active Garcia Stroud MD Active PREDNISONE 20 MG ORAL TABS 3 daily for 3 days than, 2 tabs daily for 3 days than, 2 tabs daily for 3 days than, 1 tab daily for 3 days than 1/2 tab daily for 3 days. PREDNISONE 05973150418 No Longer Active Tracie Arrington APRN Active FLUTICASONE PROPIONATE 50 MCG/ACT SUSP 1 to 2 sprays each nostril daily 08/21 FLUTICASONE PROPIONATE 21637714603 Active Simona Galloway APRN Active PREDNISONE 10 MG TAB take 1 tab po qday for severe COPD PREDNISONE 63342138060 Active Austin Albarado MD Active PREDNISONE 20 MG ORAL TABS 3 TABS PO FOR 3 DAYS,THAN 2 TABS FOR 3 DAYS THAN, 1 TAB FOR 3 DAYS THAN, 1/2 TAB FOR 3 DAYS. PREDNISONE 61149881306 No Longer Active Austin Albarado MD Active LEVAQUIN 500 MG TAB 1 tablet by mouth daily for 10 days. LEVOFLOXACIN 60677926711 No Longer Active Austin Albarado MD Active PREDNISONE 20 MG TAB take 3 tabs daily for 3 days, 2 tabs daily for 3 days, 1 tab daily for 3 days, 1/2 tab daily for 3 days PREDNISONE 51733619131 No Longer Active Simona Galloway APRN Active ZITHROMAX 1 GM ORAL PACK DIRECTED AZITHROMYCIN 07408314821 No Longer Active Simona Galloway APRN Active PREDNISONE 20 MG TAB 2 tabs daily for 4 days, 1 tab daily for 4 days, 1/2 tab daily for 4 days PREDNISONE 65905165448 No Longer Active Austin Albarado MD Active LEVAQUIN 500 MG TAB 1 tablet by mouth daily LEVOFLOXACIN 49754444823 No Longer Active Austin Albarado MD Active PREDNISONE 20 MG TAB take 3 tabs daily for 3 days, 2 tabs daily for 3 days, 1 tab daily for 3 days, 1/2 tab daily for 3 days PREDNISONE 24345506657 No Longer Active Austin Albarado MD Active DOXYCYCLINE HYCLATE 100 MG CAP 1 cap by mouth twice daily DOXYCYCLINE HYCLATE 73732529648 No Longer Active Esperanza Modi APRN Active ALBUTEROL SULFATE (2.5 MG/3ML) 0.083% NEBU nebulize 1 vial q 4-6 hours prn shortness of breath ALBUTEROL SULFATE 53995754294 No Longer Active Esperanza Modi APRN Active TORSEMIDE 20 MG TABS 1 TAB PO BID TORSEMIDE 56767890223 No Longer Active Jillaftab Modi RIVER GUIDE Active PREDNISONE 20 MG TAB 2 tabs daily for 3 days, 1 tab daily for 3 days, 1/2 tab daily for 2 days PREDNISONE 92174747738 No Longer Active Austin Albarado MD Active LEVOFLOXACIN 500 MG ORAL TABS take 1 tab po qday LEVOFLOXACIN 18914733685 No Longer Active Austin Albarado MD Active PREDNISONE 20 MG TAB 2 tablets today, then 1 tablet by mouth days 2-5 PREDNISONE 49989461847 No Longer Active Austin Albarado MD Active AZITHROMYCIN 500 MG SOLR 1 po q day AZITHROMYCIN 95679266865 No Longer Active Austin Albarado MD Active KEFLEX 500 MG CAP 1 po TID x 7 days CEPHALEXIN 65658183339 No Longer Active Tristan Vaughn MD Active EQL VISION FORMULA TABS 1 TAB PO DAILY MULTIPLE VITAMINS-MINERALS 61109540703 No Longer Active Tristan Vaughn MD Active CHANTIX STARTING MONTH ELVIS 0.5 MG X 11 & 1 MG X 42 TABS 0.5mg daily for 3 days , then 0.5mg BID for 4 days, then 1mg BID VARENICLINE TARTRATE 35098936769 No Longer Active Tristan Vaughn MD Active LEVOTHYROXINE SODIUM 200 MCG TABS 1 TAB PO DAILY LEVOTHYROXINE SODIUM 11262344694 No Longer Active Tristan Vaughn MD Active LIOTHYRONINE SODIUM 50 MCG TABS take 1 tab po qday for hypothyroidism LIOTHYRONINE SODIUM 08589121962 No Longer Active Austin Albarado MD Active SYNTHROID 0.025 MG TAB 1 tablet by mouth daily LEVOTHYROXINE SODIUM 32458187750 No Longer Active Austin Albarado MD Active ARMOUR THYROID 120 MG TABS take 1 tab po qday for hypothyroidism THYROID 34557277208 Active Austin Albarado MD Active FLONASE 50 MCG/ACT SUSP 1 spray each nostril am and hs FLUTICASONE PROPIONATE Active Simona Galloway APRN Active ZITHROMAX 1 GM PACK DIRECTED AZITHROMYCIN 60209013488 No Longer Active Austin Albarado MD Active PREDNISONE 20 MG TAB 2 tabs daily for 3 days, 1 tab daily for 3 days, 1/2 tab daily for 2 days PREDNISONE 76259135679 No Longer Active Austin Albarado MD Active ZITHROMAX 250 MG TAB 2 po today, then 1 po q days 2-5 AZITHROMYCIN 88444573153 No Longer Active Austin Albarado MD Active NYSTATIN-TRIAMCINOLONE 845345-8.1 UNIT/GM-% OINT Apply to affected area TID NYSTATIN-TRIAMCINOLONE 74505650801 Active Austin Albarado MD Active IPRATROPIUM-ALBUTEROL 0.5-2.5 (3) MG/3ML SOLN 1 VIAL NEB Q 6 HRS PRN IPRATROPIUM-ALBUTEROL 52415267298 Active Simona Galloway APRN Active PROAIR HFA 108 (90 BASE) MCG/ACT AERS take 1-2 puffs q4hrs prn cough/ SOB ALBUTEROL SULFATE 41769935715 Active Austin Albarado MD Active ADVAIR DISKUS 500-50 MCG/DOSE AEPB ONE INH BID FLUTICASONE- SALMETEROL 12350399874 Active Austin Albarado MD Active ZITHROMAX 1 GM PACK DIRECTED ZITHROMAX 1 GM PACK 801353 AZITHROMYCIN Inactive SYNTHROID 0.025 MG TAB 1 tablet by mouth daily SYNTHROID 0.025 MG TAB 701371 LEVOTHYROXINE SODIUM Inactive LIOTHYRONINE SODIUM 50 MCG TABS take 1 tab po qday for hypothyroidism LIOTHYRONINE SODIUM 50 MCG TABS 654503 LIOTHYRONINE SODIUM Inactive LEVOTHYROXINE SODIUM 200 MCG TABS 1 TAB PO DAILY LEVOTHYROXINE SODIUM 200 MCG TABS 988691 LEVOTHYROXINE SODIUM Inactive CHANTIX STARTING MONTH ELVIS [...] po q day AZITHROMYCIN 500 MG SOLR 25084306779 AZITHROMYCIN Inactive PREDNISONE 20 MG TAB 2 tablets today, then 1 tablet by mouth days 2-5 PREDNISONE 20 MG TAB 699448 PREDNISONE Inactive TORSEMIDE 20 MG TABS 1 TAB PO BID TORSEMIDE 20 MG TABS 896126 TORSEMIDE Inactive ALBUTEROL SULFATE (2.5 MG/3ML) 0.083% NEBU nebulize 1 vial q 4-6 hours prn shortness of breath ALBUTEROL SULFATE (2.5 MG/3ML) 0.083% NEBU 492306 ALBUTEROL SULFATE Inactive LEVAQUIN 500 MG TAB 1 tablet by mouth daily LEVAQUIN 500 MG TAB 405274 LEVOFLOXACIN Inactive PREDNISONE 20 MG TAB 2 tabs daily for 4 days, 1 tab daily for 4 days, 1/2 tab daily for 4 days PREDNISONE 20 MG TAB 143814 PREDNISONE Inactive ZITHROMAX 1 GM ORAL PACK DIRECTED ZITHROMAX 1 GM ORAL PACK 044313 AZITHROMYCIN Inactive LEVAQUIN 500 MG TAB 1 tablet by mouth daily for 10 days. LEVAQUIN 500 MG TAB 381450 LEVOFLOXACIN Inactive PREDNISONE 20 MG ORAL TABS 3 TABS PO FOR 3 DAYS,THAN 2 TABS FOR 3 DAYS THAN, 1 TAB FOR 3 DAYS THAN, 1/2 TAB FOR 3 DAYS. PREDNISONE 20 MG ORAL TABS 755979 PREDNISONE Inactive PREDNISONE 20 MG ORAL TABS 3 daily for 3 days than, 2 tabs daily for 3 days than, 2 tabs daily for 3 days than, 1 tab daily for 3 days than 1/2 tab daily for 3 days. PREDNISONE 20 MG ORAL TABS 338101 PREDNISONE Inactive AMOXICILLIN 500 MG ORAL TABS Take one by mouth 3 times daily, morning, afternoon and evening.] AMOXICILLIN 500 MG ORAL TABS 633233 AMOXICILLIN Inactive ZITHROMAX 250 MG TAB 2 po today, then 1 po q days 2-5 ZITHROMAX 250 MG TAB 0376397 AZITHROMYCIN Inactive PREDNISONE 20 MG TAB 2 tabs daily for 3 days, 1 tab daily for 3 days, 1/2 tab daily for 2 days PREDNISONE 20 MG TAB 094602 PREDNISONE Inactive KEFLEX 500 MG CAP 1 po TID x 7 days KEFLEX 500 MG CAP 385148 CEPHALEXIN Inactive LEVOFLOXACIN 500 MG ORAL TABS take 1 tab po qday LEVOFLOXACIN 500 MG ORAL TABS 375453 LEVOFLOXACIN Inactive PREDNISONE 20 MG TAB 2 tabs daily for 3 days, 1 tab daily for 3 days, 1/2 tab daily for 2 days PREDNISONE 20 MG TAB 329102 PREDNISONE Inactive DOXYCYCLINE HYCLATE 100 MG CAP 1 cap by mouth twice daily DOXYCYCLINE HYCLATE 100 MG CAP 5834108 DOXYCYCLINE HYCLATE Inactive PREDNISONE 20 MG TAB take 3 tabs daily for 3 days, 2 tabs daily for 3 days, 1 tab daily for 3 days, 1/2 tab daily for 3 days PREDNISONE 20 MG TAB 417357 PREDNISONE Inactive PREDNISONE 20 MG TAB take 3 tabs daily for 3 days, 2 tabs daily for 3 days, 1 tab daily for 3 days, 1/2 tab daily for 3 days PREDNISONE 20 MG TAB 730878 PREDNISONE Inactive Advance Directives Directive Description Start [...] 43.52 m[iU]/mL 0.36-3.74 sodium, serum 140 mmol/L 186-944 2084/04/06 carbon dioxide, venous blood 36.3 mmol/L 21.0-32.0 potassium, serum 4.9 mmol/L 3.5-5.2 chloride, serum 100 mmol/L 98-107 blood glucose 62 mg/dL 65-110 urea nitrogen, blood 24 mg/dL 7-18 creatinine, serum 1.09 mg/dL 0.55-1.30 alanine aminotransferase (SGPT), serum 44 U/L 12-78 aspartate aminotransferase (SGOT), serum 25 U/L 15-37 calcium, serum 8.7 mg/dL 8.5-10.1 bilirubin, serum, total 0.50 mg/dL 0.00-1.00 cholesterol, serum 189 mg/dL 068-576 2644/04/06 triglyceride, serum, fasting 117 mg/dL 30-200 HDL [...] 142-424 Encounters Code Encounter Date Provider Facility CPT-58672 Level 4 Est. Patient 16:11:14 INSECT CONTROL AIDE Austin Albarado MD [facility] CPT-93876 Level 4 Est. Patient 23:08:56 CDT Austin Albarado MD [facility] CPT-73346 Level 4 Est. Patient 13:27:28 CDT Garcia Stroud MD [facility] CPT-13122 Level 4 Est. Patient 10:51:20 CDT Austin Albarado MD [facility] CPT-60711 Level 4 Est. Patient 20:09:43 INSECT CONTROL AIDE Austin Albarado MD [facility] CPT-58761 Level 4 Est. Patient 21:00:28 CDT Austin Albarado MD [facility] CPT-21990 Level 4 Est. Patient 10:03:37 CDT Austin Albarado MD [facility] CPT-98200 Level 3 Est. Patient 10:50:28 INSECT CONTROL AIDE Austin Albarado MD [facility] CPT-01533 Level 4 Est. Patient 21:31:41 INSECT CONTROL AIDE Austin Albarado MD [facility] CPT-78105 Level 3 Est. Patient 16:22:54 INSECT CONTROL AIDE Jann Law DO [facility] CPT-28601 Level 3 Est. Patient 11:04:53 INSECT CONTROL AIDE Tristan Vaughn MD [facility] CPT-14220 Level 4 Est. Patient 09:50:59 CDT Austin Albarado MD [facility] CPT-19394 Level 4 Est. Patient 09:29:00 CDT Austin Albarado MD [facility] CPT-30601 Level 4 Est. Patient 14:23:07 CDT Austin Albarado MD [facility] CPT-14953 Level 4 Est. Patient 14:27:26 CDT Austin Albarado MD [facility] CPT-40789 Level 4 Est. Patient 12:51:43 INSECT CONTROL AIDE Austin Albarado MD [facility] CPT-90752 Level 3 New Patient 14:17:38 INSECT CONTROL AIDE Austin Albarado MD [facility] CPT-34554 Level 3 New Patient 11:28:18 INSECT CONTROL AIDE Austin Albarado MD [facility] Procedures Code Procedure Name Date Entry Date Standard Description CPT-77508 First Vx - Ix admin for Medicare patients 16:00:49 CDT CPT-17407 Fluzone High-Dose Intramuscular Suspension 16:00:49 CDT CPT-G0009 Administration of Pneumococcal Vaccine 13:25:27 CDT CPT-81262 Prevnar 13 Intramuscular Suspension 13:25:27 CDT 09/26 CPT-G0438 Initial Annual Wellness Exam 11:28:26 CDT CPT-84429 Chest 2V Frontal and Lat 15:00:00 INSECT CONTROL AIDE CPT-89481 Breathing Tx 14:49:25 INSECT CONTROL AIDE CPT-50700 Fluzone High Dose 15:08:41 INSECT CONTROL AIDE CPT-96082 Immunization Single Admin 15:08:41 INSECT CONTROL AIDE CPT-32707 Fluzone High Dose 17:31:19 CDT CPT-61180 Administration single or combination vaccine inc oral 17 :31:19 CDT CPT-97726 Venipuncture Draw Fee 11:03:05 CDT CPT-TCMM Transitional Care Mgmt-Moderate 16:32:35 CDT CPT-18451 Chest 2V Frontal and Lat 11:51:09 CDT CPT-G0008 Administration of Influenza Virus Vaccine 15:09:08 CDT CPT-88310 Fluzone High-Dose Intramuscular Suspension 15:09:08 CDT CPT-36200 Administration single or combination vaccine inc oral 17 :07:02 INSECT CONTROL AIDE CPT-42737 Influenza High Dose age 65+ 17:07:02 INSECT CONTROL AIDE
--- OUTSIDE RECORDS SUMMARY | 2017-02-27 22:14 | XMS REPORT | Clinical Summary ---
Author Author Admin, LEE Organization [facility] Address Unknown Phone Unavailable Allergies, Adverse Reactions, [...] 1/2 tab daily for 3 days PREDNISONE 05465127254 No Longer Active Austin Albarado MD Active LEVAQUIN 500 MG TAB 1 tablet by mouth daily LEVOFLOXACIN 86109195719 Active Austin Albarado MD Active PREDNISONE 20 MG TAB 2 tabs daily for 4 days, 1 tab daily for 4 days, 1/2 tab daily for 4 days PREDNISONE 89287237497 Active 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 CASER Active DOXYCYCLINE HYCLATE 100 MG CAP 1 cap by mouth twice daily DOXYCYCLINE HYCLATE 41690488474 No Longer Active 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 CASER Active ALBUTEROL SULFATE (2.5 MG/3ML) 0.083% NEBU nebulize 1 vial q 4-6 hours prn shortness of breath ALBUTEROL SULFATE 06679482076 No Longer Active 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 CASER Active TORSEMIDE 20 MG TABS 1 TAB PO BID TORSEMIDE 94774620740 No Longer Active 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 CASER Active PREDNISONE 20 MG TAB 2 tabs daily for 3 days, 1 tab daily for 3 days, 1/2 tab daily for 2 days PREDNISONE 78232364456 No Longer Active Austin Albarado MD Active LEVOFLOXACIN 500 MG ORAL TABS take 1 tab po qday LEVOFLOXACIN 96076481374 No Longer Active Austin Albarado MD Active PREDNISONE 20 MG TAB 2 tablets today, then 1 tablet by mouth days 2-5 PREDNISONE 23669642053 No Longer Active Austin Albarado MD Active AZITHROMYCIN 500 MG SOLR 1 po q day AZITHROMYCIN 82355457944 No Longer Active Austin Albarado MD Active KEFLEX 500 MG CAP 1 po TID x 7 days CEPHALEXIN 39732833803 No Longer Active Tristan Vaughn MD Active EQL VISION FORMULA TABS 1 TAB PO DAILY MULTIPLE VITAMINS-MINERALS 94612647101 No Longer Active Tristan Vaughn MD Active CHANTIX STARTING MONTH ELVIS 0.5 MG X 11 & 1 MG X 42 TABS 0.5mg daily for 3 days , then 0.5mg BID for 4 days, then 1mg BID VARENICLINE TARTRATE 11372645640 No Longer Active Tristan Vaughn MD Active LEVOTHYROXINE SODIUM 200 MCG TABS 1 TAB PO DAILY LEVOTHYROXINE SODIUM 70946012351 No Longer Active Tristan Vaughn MD Active LIOTHYRONINE SODIUM 50 MCG TABS take 1 tab po qday for hypothyroidism LIOTHYRONINE SODIUM 95184924786 No Longer Active Austin Albarado MD Active SYNTHROID 0.025 MG TAB 1 tablet by mouth daily LEVOTHYROXINE SODIUM 57846073990 No Longer Active Austin Albarado MD Active ARMOUR THYROID 120 MG TABS take 1 tab po qday for hypothyroidism THYROID 01016865716 Active Austin Albarado MD Active FLONASE 50 MCG/ACT SUSP 1 spray each nostril am and hs FLUTICASONE PROPIONATE 77870760546 Active Austin Alabrado MD Active ZITHROMAX 1 GM PACK DIRECTED AZITHROMYCIN 66490477831 No Longer Active Austin Albarado MD Active PREDNISONE 20 MG TAB 2 tabs daily for 3 days, 1 tab daily for 3 days, 1/2 tab daily for 2 days PREDNISONE 21363768000 No Longer Active Austin Albarado MD Active ZITHROMAX 250 MG TAB 2 po today, then 1 po q days 2-5 AZITHROMYCIN 42524189548 No Longer Active Austin Albarado MD Active NYSTATIN-TRIAMCINOLONE 658669-1.1 UNIT/GM-% OINT Apply to affected area TID NYSTATIN-TRIAMCINOLONE 85286511870 Active Austin Albarado MD Active IPRATROPIUM-ALBUTEROL 0.5-2.5 (3) MG/3ML SOLN 1 VIAL NEB Q 6 HRS PRN IPRATROPIUM-ALBUTEROL 39608204058 Active Austin Albarado MD Active PROAIR HFA 108 (90 BASE) MCG/ACT AERS take 1-2 puffs q4hrs prn cough/ SOB ALBUTEROL SULFATE 24133830120 Active Austin Albarado MD Active ADVAIR DISKUS 500-50 MCG/DOSE AEPB ONE INH BID FLUTICASONE- SALMETEROL 13254182048 Active Austin Albarado MD Active ZITHROMAX 1 GM PACK DIRECTED ZITHROMAX 1 GM PACK 411594 AZITHROMYCIN Inactive SYNTHROID 0.025 MG TAB 1 tablet by mouth daily SYNTHROID 0.025 MG TAB 472923 LEVOTHYROXINE SODIUM Inactive LIOTHYRONINE SODIUM 50 MCG TABS take 1 tab po qday for hypothyroidism LIOTHYRONINE SODIUM 50 MCG TABS 782088 LIOTHYRONINE SODIUM Inactive LEVOTHYROXINE SODIUM 200 MCG TABS 1 TAB PO DAILY LEVOTHYROXINE SODIUM 200 MCG TABS 353385 LEVOTHYROXINE SODIUM Inactive CHANTIX STARTING MONTH ELVIS [...] po q day AZITHROMYCIN 500 MG SOLR 521341 AZITHROMYCIN Inactive PREDNISONE 20 MG TAB 2 tablets today, then 1 tablet by mouth days 2-5 PREDNISONE 20 MG TAB 243964 PREDNISONE Inactive TORSEMIDE 20 MG TABS 1 TAB PO BID TORSEMIDE 20 MG TABS 154237 TORSEMIDE Inactive ALBUTEROL SULFATE (2.5 MG/3ML) 0.083% NEBU nebulize 1 vial q 4-6 hours prn shortness of breath ALBUTEROL SULFATE (2.5 MG/3ML) 0.083% NEBU 597502 ALBUTEROL SULFATE Inactive ZITHROMAX 250 MG TAB 2 po today, then 1 po q days 2-5 ZITHROMAX 250 MG TAB 2917564 AZITHROMYCIN Inactive PREDNISONE 20 MG TAB 2 tabs daily for 3 days, 1 tab daily for 3 days, 1/2 tab daily for 2 days PREDNISONE 20 MG TAB 115848 PREDNISONE Inactive KEFLEX 500 MG CAP 1 po TID x 7 days KEFLEX 500 MG CAP 704345 CEPHALEXIN Inactive LEVOFLOXACIN 500 MG ORAL TABS take 1 tab po qday LEVOFLOXACIN 500 MG ORAL TABS 937779 LEVOFLOXACIN Inactive PREDNISONE 20 MG TAB 2 tabs daily for 3 days, 1 tab daily for 3 days, 1/2 tab daily for 2 days PREDNISONE 20 MG TAB 827310 PREDNISONE Inactive DOXYCYCLINE HYCLATE 100 MG CAP 1 cap by mouth twice daily DOXYCYCLINE HYCLATE 100 MG CAP 19890623 DOXYCYCLINE HYCLATE Inactive PREDNISONE 20 MG TAB take 3 tabs daily for 3 days, 2 tabs daily for 3 days, 1 tab daily for 3 days, 1/2 tab daily for 3 days PREDNISONE 20 MG TAB 732695 PREDNISONE Inactive Advance Directives Directive Description Start [...] pressure, diastolic - 8462-4 102 mm[Hg] BP frenandes blood pressure, systolic - 8480-6 127 mm[Hg] [...] ... - Chemistry sodium, serum 140 mmol/L 727-893 7581/03/09 potassium, serum 4.9 mmol/L 3.5-5.2 chloride, serum [...] 142-424 Encounters Code Encounter Date Provider Facility CPT-33404 Level 3 Est. Patient 10:50:28 PRODUCTION REPAIRER Austin Albarado MD [facility] CPT-60578 Level 4 Est. Patient 21:31:41 PRODUCTION REPAIRER Austin Albarado MD [facility] CPT-73000 Level 3 Est. Patient 16:22:54 PRODUCTION REPAIRER Jann Law DO [facility] CPT-57831 Level 3 Est. Patient 11:04:53 PRODUCTION REPAIRER Tristan Vaughn MD [facility] CPT-41578 Level 4 Est. Patient 09:50:59 CDT Austin Albarado MD [facility] CPT-76541 Level 4 Est. Patient 09:29:00 CDT Austin Albarado MD [facility] CPT-97019 Level 4 Est. Patient 14:23:07 CDT Austin Albarado MD [facility] CPT-27555 Level 4 Est. Patient 14:27:26 CDT Austin Albarado MD [facility] CPT-86730 Level 4 Est. Patient 12:51:43 PRODUCTION REPAIRER Austin Albarado MD [facility] CPT-32394 Level 3 New Patient 14:17:38 PRODUCTION REPAIRER Austin Albarado MD [facility] CPT-00076 Level 3 New Patient 11:28:18 PRODUCTION REPAIRER Austin Albarado MD [facility] Procedures Code Procedure Name Date Entry Date Standard Description CPT-TCMM Transitional Care Mgmt-Moderate 16:32:35 CDT CPT-59768 Chest 2V Frontal and Lat 11:51:09 CDT CPT-G0008 Administration of Influenza Virus Vaccine 15:09:08 CDT CPT-97934 Fluzone High-Dose Intramuscular Suspension 15:09:08 CDT CPT-05289 Administration single or combination vaccine inc oral 17 :07:02 PRODUCTION REPAIRER CPT-41626 Influenza High Dose age 65+ 17:07:02 PRODUCTION REPAIRER
--- OUTSIDE RECORDS SUMMARY | 2017-02-27 22:14 | XMS REPORT | Clinical Summary ---
Author Author Admin, E Organization [employer] Address Unknown Phone Unavailable Allergies, Adverse Reactions, [...] of unspecified type of vessel, [place] or graft Peripheral edema 782.3 Active Austin [...] 1/2 tab po for 3 days. PREDNISONE 69638613791 No Longer Active Simona Galloway APRN Active LEVAQUIN 500 MG TAB 1 tablet by mouth daily LEVOFLOXACIN 58734105235 No Longer Active Simona Galloway APRN Active PREDNISONE 20 MG TAB take 3 tabs daily for 3 days, 2 tabs daily for 3 days, 1 tab daily for 3 days, 1/2 tab daily for 3 days PREDNISONE 80079983258 No Longer Active Austin Albarado MD Active LEVAQUIN 500 MG TAB 1 tablet by mouth daily LEVOFLOXACIN 85454217970 No Longer Active Madhavi Fiore Active FUROSEMIDE 20 MG TABS take 1 tab po BID for swelling FUROSEMIDE 49230866109 Active Austin Albarado MD Active AMOXICILLIN 500 MG ORAL TABS Take one by mouth 3 times daily, morning, afternoon and evening.] AMOXICILLIN 61205239161 No Longer Active Garcia Stroud MD Active PREDNISONE 20 MG ORAL TABS 3 daily for 3 days than, 2 tabs daily for 3 days than, 2 tabs daily for 3 days than, 1 tab daily for 3 days than 1/2 tab daily for 3 days. PREDNISONE 19234273011 No Longer Active Tracie Arrington APRN Active FLUTICASONE PROPIONATE 50 MCG/ACT SUSP 1 to 2 sprays each nostril daily 08/21 FLUTICASONE PROPIONATE 18414642530 Active Simona Galloway APRN Active PREDNISONE 10 MG TAB take 1 tab po qday for severe COPD PREDNISONE 75496773967 Active Austin Albarado MD Active PREDNISONE 20 MG ORAL TABS 3 TABS PO FOR 3 DAYS,THAN 2 TABS FOR 3 DAYS THAN, 1 TAB FOR 3 DAYS THAN, 1/2 TAB FOR 3 DAYS. PREDNISONE 30180549009 No Longer Active Austin Albarado MD Active LEVAQUIN 500 MG TAB 1 tablet by mouth daily for 10 days. LEVOFLOXACIN 43198230110 No Longer Active Austin Albarado MD Active PREDNISONE 20 MG TAB take 3 tabs daily for 3 days, 2 tabs daily for 3 days, 1 tab daily for 3 days, 1/2 tab daily for 3 days PREDNISONE 37818925606 No Longer Active Simona Galloway APRN Active ZITHROMAX 1 GM ORAL PACK DIRECTED AZITHROMYCIN 57635200017 No Longer Active Simona Galloway APRN Active PREDNISONE 20 MG TAB 2 tabs daily for 4 days, 1 tab daily for 4 days, 1/2 tab daily for 4 days PREDNISONE 05032930198 No Longer Active Austin Albarado MD Active LEVAQUIN 500 MG TAB 1 tablet by mouth daily LEVOFLOXACIN 86255920954 No Longer Active Austin Albarado MD Active PREDNISONE 20 MG TAB take 3 tabs daily for 3 days, 2 tabs daily for 3 days, 1 tab daily for 3 days, 1/2 tab daily for 3 days PREDNISONE 81590680308 No Longer Active Austin Albarado MD Active DOXYCYCLINE HYCLATE 100 MG CAP 1 cap by mouth twice daily DOXYCYCLINE HYCLATE 60082088131 No Longer Active 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 TAR HEAT EXCHANGER CLEANER Active ALBUTEROL SULFATE (2.5 MG/3ML) 0.083% NEBU nebulize 1 vial q 4-6 hours prn shortness of breath ALBUTEROL SULFATE 76319319704 No Longer Active 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 TAR HEAT EXCHANGER CLEANER Active TORSEMIDE 20 MG TABS 1 TAB PO BID TORSEMIDE 99804854089 No Longer Active 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 TAR HEAT EXCHANGER CLEANER Active PREDNISONE 20 MG TAB 2 tabs daily for 3 days, 1 tab daily for 3 days, 1/2 tab daily for 2 days PREDNISONE 41300176133 No Longer Active Austin Albarado MD Active LEVOFLOXACIN 500 MG ORAL TABS take 1 tab po qday LEVOFLOXACIN 58403690178 No Longer Active Austin Albarado MD Active PREDNISONE 20 MG TAB 2 tablets today, then 1 tablet by mouth days 2-5 PREDNISONE 60023360336 No Longer Active Austin Albarado MD Active AZITHROMYCIN 500 MG SOLR 1 po q day AZITHROMYCIN 87395917839 No Longer Active Austin Albarado MD Active KEFLEX 500 MG CAP 1 po TID x 7 days CEPHALEXIN 74045707997 No Longer Active Tristan Vaughn MD Active EQL VISION FORMULA TABS 1 TAB PO DAILY MULTIPLE VITAMINS-MINERALS 77999210643 No Longer Active Tristan Vaughn MD Active CHANTIX STARTING MONTH ELVIS 0.5 MG X 11 & 1 MG X 42 TABS 0.5mg daily for 3 days , then 0.5mg BID for 4 days, then 1mg BID VARENICLINE TARTRATE 72031290141 No Longer Active Tristan Vaughn MD Active LEVOTHYROXINE SODIUM 200 MCG TABS 1 TAB PO DAILY LEVOTHYROXINE SODIUM 89855977907 No Longer Active Tristan Vaughn MD Active LIOTHYRONINE SODIUM 50 MCG TABS take 1 tab po qday for hypothyroidism LIOTHYRONINE SODIUM 46805094715 No Longer Active Austin Albarado MD Active SYNTHROID 0.025 MG TAB 1 tablet by mouth daily LEVOTHYROXINE SODIUM 94701640428 No Longer Active Austin Albarado MD Active ARMOUR THYROID 120 MG TABS take 1 tab po qday for hypothyroidism THYROID 78067108122 Active Austin Albarado MD Active FLONASE 50 MCG/ACT SUSP 1 spray each nostril am and hs FLUTICASONE PROPIONATE Active Simona Galloway APRN Active ZITHROMAX 1 GM PACK DIRECTED AZITHROMYCIN 83089946171 No Longer Active Austin Albarado MD Active PREDNISONE 20 MG TAB 2 tabs daily for 3 days, 1 tab daily for 3 days, 1/2 tab daily for 2 days PREDNISONE 29347956369 No Longer Active Austin Albarado MD Active ZITHROMAX 250 MG TAB 2 po today, then 1 po q days 2-5 AZITHROMYCIN 81056124601 No Longer Active Austin Albarado MD Active NYSTATIN-TRIAMCINOLONE 939366-5.1 UNIT/GM-% OINT Apply to affected area TID NYSTATIN-TRIAMCINOLONE 11975262625 Active Austin Albarado MD Active IPRATROPIUM-ALBUTEROL 0.5-2.5 (3) MG/3ML SOLN 1 VIAL NEB Q 6 HRS PRN IPRATROPIUM-ALBUTEROL 91087912148 Active Simona Nilesh TAR HEAT EXCHANGER CLEANER Active PROAIR HFA 108 (90 BASE) MCG/ACT AERS take 1-2 puffs q4hrs prn cough/ SOB ALBUTEROL SULFATE 84145378090 Active Austin Albarado MD Active ADVAIR DISKUS 500-50 MCG/DOSE AEPB ONE INH BID FLUTICASONE- SALMETEROL 77941812180 Active Austin Albarado MD Active ZITHROMAX 1 GM PACK DIRECTED ZITHROMAX 1 GM PACK 966497 AZITHROMYCIN Inactive SYNTHROID 0.025 MG TAB 1 tablet by mouth daily SYNTHROID 0.025 MG TAB 640603 LEVOTHYROXINE SODIUM Inactive LIOTHYRONINE SODIUM 50 MCG TABS take 1 tab po qday for hypothyroidism LIOTHYRONINE SODIUM 50 MCG TABS 607589 LIOTHYRONINE SODIUM Inactive LEVOTHYROXINE SODIUM 200 MCG TABS 1 TAB PO DAILY LEVOTHYROXINE SODIUM 200 MCG TABS 925525 LEVOTHYROXINE SODIUM Inactive CHANTIX STARTING MONTH ELVIS [...] po q day AZITHROMYCIN 500 MG SOLR 40696036605 AZITHROMYCIN Inactive PREDNISONE 20 MG TAB 2 tablets today, then 1 tablet by mouth days 2-5 PREDNISONE 20 MG TAB 873345 PREDNISONE Inactive TORSEMIDE 20 MG TABS 1 TAB PO BID TORSEMIDE 20 MG TABS 333236 TORSEMIDE Inactive ALBUTEROL SULFATE (2.5 MG/3ML) 0.083% NEBU nebulize 1 vial q 4-6 hours prn shortness of breath ALBUTEROL SULFATE (2.5 MG/3ML) 0.083% NEBU 291099 ALBUTEROL SULFATE Inactive LEVAQUIN 500 MG TAB 1 tablet by mouth daily LEVAQUIN 500 MG TAB 082438 LEVOFLOXACIN Inactive PREDNISONE 20 MG TAB 2 tabs daily for 4 days, 1 tab daily for 4 days, 1/2 tab daily for 4 days PREDNISONE 20 MG TAB 436453 PREDNISONE Inactive ZITHROMAX 1 GM ORAL PACK DIRECTED ZITHROMAX 1 GM ORAL PACK 440057 AZITHROMYCIN Inactive LEVAQUIN 500 MG TAB 1 tablet by mouth daily for 10 days. LEVAQUIN 500 MG TAB 234051 LEVOFLOXACIN Inactive PREDNISONE 20 MG ORAL TABS 3 TABS PO FOR 3 DAYS,THAN 2 TABS FOR 3 DAYS THAN, 1 TAB FOR 3 DAYS THAN, 1/2 TAB FOR 3 DAYS. PREDNISONE 20 MG ORAL TABS 354198 PREDNISONE Inactive PREDNISONE 20 MG ORAL TABS 3 daily for 3 days than, 2 tabs daily for 3 days than, 2 tabs daily for 3 days than, 1 tab daily for 3 days than 1/2 tab daily for 3 days. PREDNISONE 20 MG ORAL TABS 533330 PREDNISONE Inactive AMOXICILLIN 500 MG ORAL TABS Take one by mouth 3 times daily, morning, afternoon and evening.] AMOXICILLIN 500 MG ORAL TABS 107199 AMOXICILLIN Inactive LEVAQUIN 500 MG TAB 1 tablet by mouth daily LEVAQUIN 500 MG TAB 566973 LEVOFLOXACIN Inactive LEVAQUIN 500 MG TAB 1 tablet by mouth daily LEVAQUIN 500 MG TAB 300020 LEVOFLOXACIN Inactive PREDNISONE 20 MG ORAL TABS 3 tabs po for 3 days than,2 tabs po for 3 days,1 tab po for 3 days, 1/2 tab po for 3 days. PREDNISONE 20 MG ORAL TABS 763526 PREDNISONE Inactive ZITHROMAX 250 MG TAB 2 po today, then 1 po q days 2-5 ZITHROMAX 250 MG TAB 5548316 AZITHROMYCIN Inactive PREDNISONE 20 MG TAB 2 tabs daily for 3 days, 1 tab daily for 3 days, 1/2 tab daily for 2 days PREDNISONE 20 MG TAB 941404 PREDNISONE Inactive KEFLEX 500 MG CAP 1 po TID x 7 days KEFLEX 500 MG CAP 536968 CEPHALEXIN Inactive LEVOFLOXACIN 500 MG ORAL TABS take 1 tab po qday LEVOFLOXACIN 500 MG ORAL TABS 127102 LEVOFLOXACIN Inactive PREDNISONE 20 MG TAB 2 tabs daily for 3 days, 1 tab daily for 3 days, 1/2 tab daily for 2 days PREDNISONE 20 MG TAB 864228 PREDNISONE Inactive DOXYCYCLINE HYCLATE 100 MG CAP 1 cap by mouth twice daily DOXYCYCLINE HYCLATE 100 MG CAP 5043764 DOXYCYCLINE HYCLATE Inactive PREDNISONE 20 MG TAB take 3 tabs daily for 3 days, 2 tabs daily for 3 days, 1 tab daily for 3 days, 1/2 tab daily for 3 days PREDNISONE 20 MG TAB 392359 PREDNISONE Inactive PREDNISONE 20 MG TAB take 3 tabs daily for 3 days, 2 tabs daily for 3 days, 1 tab daily for 3 days, 1/2 tab daily for 3 days PREDNISONE 20 MG TAB 338378 PREDNISONE Inactive PREDNISONE 20 MG TAB take 3 tabs daily for 3 days, 2 tabs daily for 3 days, 1 tab daily for 3 days, 1/2 tab daily for 3 days PREDNISONE 20 MG TAB 327707 PREDNISONE Inactive Advance Directives Directive Description Start [...] Peptide - Chemistry sodium, serum 140 mmol/L 794-047 1133/02/09 carbon dioxide, venous blood 39.2 mmol/L 21.0-32.0 [...] 43.52 m[iU]/mL 0.36-3.74 sodium, serum 140 mmol/L 729-270 5704/04/06 carbon dioxide, venous blood 36.3 mmol/L 21.0-32.0 potassium, serum 4.9 mmol/L 3.5-5.2 chloride, serum 100 mmol/L 98-107 blood glucose 62 mg/dL 65-110 urea nitrogen, blood 24 mg/dL 7-18 creatinine, serum 1.09 mg/dL 0.55-1.30 alanine aminotransferase (SGPT), serum 44 U/L 12-78 aspartate aminotransferase (SGOT), serum 25 U/L 15-37 calcium, serum 8.7 mg/dL 8.5-10.1 bilirubin, serum, total 0.50 mg/dL 0.00-1.00 cholesterol, serum 189 mg/dL 852-691 6969/04/06 triglyceride, serum, fasting 117 mg/dL 30-200 HDL [...] 142-424 Encounters Code Encounter Date Provider Facility CPT-91952 Level 4 Est. Patient 17:54:41 VIROLOGY TEACHER Austin Albarado MD [facility] CPT-23078 Level 4 Est. Patient 16:11:14 VIROLOGY TEACHER Austin Albarado MD [facility] CPT-34490 Level 4 Est. Patient 23:08:56 CDT Austin Albarado MD [facility] CPT-53016 Level 4 Est. Patient 13:27:28 CDT Garcia Stroud MD [facility] CPT-91534 Level 4 Est. Patient 10:51:20 CDT Austin Albarado MD [facility] CPT-27329 Level 4 Est. Patient 20:09:43 VIROLOGY TEACHER Austin Albarado MD [facility] CPT-57673 Level 4 Est. Patient 21:00:28 CDT Austin Albarado MD [facility] CPT-17706 Level 4 Est. Patient 10:03:37 CDT Austin Albarado MD [facility] CPT-03256 Level 3 Est. Patient 10:50:28 VIROLOGY TEACHER Austin Albarado MD [facility] CPT-25682 Level 4 Est. Patient 21:31:41 VIROLOGY TEACHER Austin Albarado MD [facility] CPT-79666 Level 3 Est. Patient 16:22:54 VIROLOGY TEACHER Jann Law DO [facility] CPT-09690 Level 3 Est. Patient 11:04:53 VIROLOGY TEACHER Tristan Vaughn MD [facility] CPT-95741 Level 4 Est. Patient 09:50:59 CDT Austin Albarado MD [facility] CPT-65746 Level 4 Est. Patient 09:29:00 CDT Austin Albarado MD [facility] CPT-77552 Level 4 Est. Patient 14:23:07 CDT Austin Albarado MD [facility] CPT-53035 Level 4 Est. Patient 14:27:26 CDT Austin Albarado MD [facility] CPT-59155 Level 4 Est. Patient 12:51:43 VIROLOGY TEACHER Austin Albarado MD [facility] CPT-11235 Level 3 New Patient 14:17:38 VIROLOGY TEACHER Austin Albarado MD [facility] CPT-86218 Level 3 New Patient 11:28:18 VIROLOGY TEACHER Austin Albarado MD [facility] Procedures Code Procedure Name Date Entry Date Standard Description CPT-47693 No Charge Offi Visit 10:19:33 VIROLOGY TEACHER CPT-61981 Chest 2V Frontal and Lat - XRAY USE ONLY 15:01:41 VIROLOGY TEACHER CPT-50369 First Vx - Ix admin for Medicare patients 16:00:49 CDT CPT-82095 Fluzone High-Dose Intramuscular Suspension 16:00:49 CDT CPT-G0009 Administration of Pneumococcal Vaccine 13:25:27 CDT CPT-29030 Prevnar 13 Intramuscular Suspension 13:25:27 CDT 09/26 CPT-G0438 Initial Annual Wellness Exam 11:28:26 CDT CPT-04048 Chest 2V Frontal and Lat 15:00:00 VIROLOGY TEACHER CPT-03049 Breathing Tx 14:49:25 VIROLOGY TEACHER CPT-23471 Fluzone High Dose 15:08:41 VIROLOGY TEACHER CPT-15956 Immunization Single Admin 15:08:41 VIROLOGY TEACHER CPT-87089 Fluzone High Dose 17:31:19 CDT CPT-03993 Administration single or combination vaccine inc oral 17 :31:19 CDT CPT-69871 Venipuncture Draw Fee 11:03:05 CDT CPT-TCMM Transitional Care Mgmt-Moderate 16:32:35 CDT CPT-56435 Chest 2V Frontal and Lat 11:51:09 CDT CPT-G0008 Administration of Influenza Virus Vaccine 15:09:08 CDT CPT-65979 Fluzone High-Dose Intramuscular Suspension 15:09:08 CDT CPT-95150 Administration single or combination vaccine inc oral 17 :07:02 VIROLOGY TEACHER CPT-25961 Influenza High Dose age 65+ 17:07:02 VIROLOGY TEACHER
[2017-02-27 22:15] VITALS: BP 150/92
[2017-02-27] MEDS ORDERED: ACETAMINOPHEN 650 MG SUPP (TYLENOL) PR PRN (22:15)
[2017-02-27] MEDS ORDERED: CATHETER FLUSH 10 ML SYR IV PRN (22:15)
[2017-02-27] MEDS ORDERED: D5 1/2 NS 1000 ML IV SOLUTION 1,000 ML IV SCH (22:15)
--- OUTSIDE RECORDS SUMMARY | 2017-02-27 22:15 | XMS REPORT | Clinical Summary ---
Author Author Admin, LEE Organization [facility] Address Unknown Phone Unavailable Allergies, Adverse [...] Coronary atherosclerosis of unspecified type of vessel, [place] or graft U R I ICD-465.9 Inactive [...] 1/2 tab daily for 3 days. PREDNISONE 79671998792 No Longer Active Tracie Arrington APRN Active FLUTICASONE PROPIONATE 50 MCG/ACT SUSP 1 to 2 sprays each nostril daily 08/21 FLUTICASONE PROPIONATE 10086231044 Active Simona Galloway APRN Active PREDNISONE 10 MG TAB take 1 tab po qday for severe COPD PREDNISONE 71831658677 Active Austin Albarado MD Active PREDNISONE 20 MG ORAL TABS 3 TABS PO FOR 3 DAYS,THAN 2 TABS FOR 3 DAYS THAN, 1 TAB FOR 3 DAYS THAN, 1/2 TAB FOR 3 DAYS. PREDNISONE 35085948537 No Longer Active Austin Albarado MD Active LEVAQUIN 500 MG TAB 1 tablet by mouth daily for 10 days. LEVOFLOXACIN 07636679041 No Longer Active Austin Albarado MD Active PREDNISONE 20 MG TAB take 3 tabs daily for 3 days, 2 tabs daily for 3 days, 1 tab daily for 3 days, 1/2 tab daily for 3 days PREDNISONE 53161470314 No Longer Active Simona Galloway APRN Active ZITHROMAX 1 GM ORAL PACK DIRECTED AZITHROMYCIN 81197737689 No Longer Active Simona Galloway APRN Active PREDNISONE 20 MG TAB 2 tabs daily for 4 days, 1 tab daily for 4 days, 1/2 tab daily for 4 days PREDNISONE 02834030752 No Longer Active Austin Albarado MD Active LEVAQUIN 500 MG TAB 1 tablet by mouth daily LEVOFLOXACIN 77857911275 No Longer Active Austin Albarado MD Active PREDNISONE 20 MG TAB take 3 tabs daily for 3 days, 2 tabs daily for 3 days, 1 tab daily for 3 days, 1/2 tab daily for 3 days PREDNISONE 00215858692 No Longer Active Austin Albarado MD Active DOXYCYCLINE HYCLATE 100 MG CAP 1 cap by mouth twice daily DOXYCYCLINE HYCLATE 82265231008 No Longer Active Jillfatab Modi APRN Active ALBUTEROL SULFATE (2.5 MG/3ML) 0.083% NEBU nebulize 1 vial q 4-6 hours prn shortness of breath ALBUTEROL SULFATE 30232975069 No Longer Active Jillaftab Modi APRN Active TORSEMIDE 20 MG TABS 1 TAB PO BID TORSEMIDE 50719607701 No Longer Active 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 STARBUCKS CLERK Active PREDNISONE 20 MG TAB 2 tabs daily for 3 days, 1 tab daily for 3 days, 1/2 tab daily for 2 days PREDNISONE 56480010499 No Longer Active Austin Albarado MD Active LEVOFLOXACIN 500 MG ORAL TABS take 1 tab po qday LEVOFLOXACIN 20017319835 No Longer Active Austin Albarado MD Active PREDNISONE 20 MG TAB 2 tablets today, then 1 tablet by mouth days 2-5 PREDNISONE 24440193955 No Longer Active Austin Albarado MD Active AZITHROMYCIN 500 MG SOLR 1 po q day AZITHROMYCIN 29128209259 No Longer Active Austin Albarado MD Active KEFLEX 500 MG CAP 1 po TID x 7 days CEPHALEXIN 34844616102 No Longer Active Tristan Vaughn MD Active EQL VISION FORMULA TABS 1 TAB PO DAILY MULTIPLE VITAMINS-MINERALS 38367158941 No Longer Active Tristan Vaughn MD Active CHANTIX STARTING MONTH ELVIS 0.5 MG X 11 & 1 MG X 42 TABS 0.5mg daily for 3 days , then 0.5mg BID for 4 days, then 1mg BID VARENICLINE TARTRATE 33786389153 No Longer Active Tristan Vaughn MD Active LEVOTHYROXINE SODIUM 200 MCG TABS 1 TAB PO DAILY LEVOTHYROXINE SODIUM 06967625281 No Longer Active Tristan Vaughn MD Active LIOTHYRONINE SODIUM 50 MCG TABS take 1 tab po qday for hypothyroidism LIOTHYRONINE SODIUM 92408551740 No Longer Active Austin Albarado MD Active SYNTHROID 0.025 MG TAB 1 tablet by mouth daily LEVOTHYROXINE SODIUM 51983382385 No Longer Active Austin Albarado MD Active ARMOUR THYROID 120 MG TABS take 1 tab po qday for hypothyroidism THYROID 25703931656 Active Austin Albarado MD Active FLONASE 50 MCG/ACT SUSP 1 spray each nostril am and hs FLUTICASONE PROPIONATE Active Simona Galloway APRN Active ZITHROMAX 1 GM PACK DIRECTED AZITHROMYCIN 80754379018 No Longer Active Austin Albarado MD Active PREDNISONE 20 MG TAB 2 tabs daily for 3 days, 1 tab daily for 3 days, 1/2 tab daily for 2 days PREDNISONE 27614635460 No Longer Active Austin Albarado MD Active ZITHROMAX 250 MG TAB 2 po today, then 1 po q days 2-5 AZITHROMYCIN 36517280554 No Longer Active Austin Albarado MD Active NYSTATIN-TRIAMCINOLONE 316650-1.1 UNIT/GM-% OINT Apply to affected area TID NYSTATIN-TRIAMCINOLONE 94758450676 Active Austin Albarado MD Active IPRATROPIUM-ALBUTEROL 0.5-2.5 (3) MG/3ML SOLN 1 VIAL NEB Q 6 HRS PRN IPRATROPIUM-ALBUTEROL 57762432586 Active Austin Albarado MD Active PROAIR HFA 108 (90 BASE) MCG/ACT AERS take 1-2 puffs q4hrs prn cough/ SOB ALBUTEROL SULFATE 29549443859 Active Austin Albarado MD Active ADVAIR DISKUS 500-50 MCG/DOSE AEPB ONE INH BID FLUTICASONE- SALMETEROL 97030743512 Active Austin Albarado MD Active ZITHROMAX 1 GM PACK DIRECTED ZITHROMAX 1 GM PACK 981910 AZITHROMYCIN Inactive SYNTHROID 0.025 MG TAB 1 tablet by mouth daily SYNTHROID 0.025 MG TAB 876019 LEVOTHYROXINE SODIUM Inactive LIOTHYRONINE SODIUM 50 MCG TABS take 1 tab po qday for hypothyroidism LIOTHYRONINE SODIUM 50 MCG TABS 649595 LIOTHYRONINE SODIUM Inactive LEVOTHYROXINE SODIUM 200 MCG TABS 1 TAB PO DAILY LEVOTHYROXINE SODIUM 200 MCG TABS 879205 LEVOTHYROXINE SODIUM Inactive CHANTIX STARTING MONTH ELVIS [...] po q day AZITHROMYCIN 500 MG SOLR 44213553192 AZITHROMYCIN Inactive PREDNISONE 20 MG TAB 2 tablets today, then 1 tablet by mouth days 2-5 PREDNISONE 20 MG TAB 253593 PREDNISONE Inactive TORSEMIDE 20 MG TABS 1 TAB PO BID TORSEMIDE 20 MG TABS 787906 TORSEMIDE Inactive ALBUTEROL SULFATE (2.5 MG/3ML) 0.083% NEBU nebulize 1 vial q 4-6 hours prn shortness of breath ALBUTEROL SULFATE (2.5 MG/3ML) 0.083% NEBU 408591 ALBUTEROL SULFATE Inactive LEVAQUIN 500 MG TAB 1 tablet by mouth daily LEVAQUIN 500 MG TAB 134139 LEVOFLOXACIN Inactive PREDNISONE 20 MG TAB 2 tabs daily for 4 days, 1 tab daily for 4 days, 1/2 tab daily for 4 days PREDNISONE 20 MG TAB 903940 PREDNISONE Inactive ZITHROMAX 1 GM ORAL PACK DIRECTED ZITHROMAX 1 GM ORAL PACK 082795 AZITHROMYCIN Inactive LEVAQUIN 500 MG TAB 1 tablet by mouth daily for 10 days. LEVAQUIN 500 MG TAB 760010 LEVOFLOXACIN Inactive PREDNISONE 20 MG ORAL TABS 3 TABS PO FOR 3 DAYS,THAN 2 TABS FOR 3 DAYS THAN, 1 TAB FOR 3 DAYS THAN, 1/2 TAB FOR 3 DAYS. PREDNISONE 20 MG ORAL TABS 091973 PREDNISONE Inactive PREDNISONE 20 MG ORAL TABS 3 daily for 3 days than, 2 tabs daily for 3 days than, 2 tabs daily for 3 days than, 1 tab daily for 3 days than 1/2 tab daily for 3 days. PREDNISONE 20 MG ORAL TABS 103751 PREDNISONE Inactive ZITHROMAX 250 MG TAB 2 po today, then 1 po q days 2-5 ZITHROMAX 250 MG TAB 0578854 AZITHROMYCIN Inactive PREDNISONE 20 MG TAB 2 tabs daily for 3 days, 1 tab daily for 3 days, 1/2 tab daily for 2 days PREDNISONE 20 MG TAB 542756 PREDNISONE Inactive KEFLEX 500 MG CAP 1 po TID x 7 days KEFLEX 500 MG CAP 995722 CEPHALEXIN Inactive LEVOFLOXACIN 500 MG ORAL TABS take 1 tab po qday LEVOFLOXACIN 500 MG ORAL TABS 971483 LEVOFLOXACIN Inactive PREDNISONE 20 MG TAB 2 tabs daily for 3 days, 1 tab daily for 3 days, 1/2 tab daily for 2 days PREDNISONE 20 MG TAB 579648 PREDNISONE Inactive DOXYCYCLINE HYCLATE 100 MG CAP 1 cap by mouth twice daily DOXYCYCLINE HYCLATE 100 MG CAP 1451374 DOXYCYCLINE HYCLATE Inactive PREDNISONE 20 MG TAB take 3 tabs daily for 3 days, 2 tabs daily for 3 days, 1 tab daily for 3 days, 1/2 tab daily for 3 days PREDNISONE 20 MG TAB 727505 PREDNISONE Inactive PREDNISONE 20 MG TAB take 3 tabs daily for 3 days, 2 tabs daily for 3 days, 1 tab daily for 3 days, 1/2 tab daily for 3 days PREDNISONE 20 MG TAB 538975 PREDNISONE Inactive Advance Directives Directive Description Start [...] Chemistry triglyceride, serum, fasting 30 mg/dL 30-200 cholesterol, serum 136 mg/dL 496-798 5226/10/06 HDL cholesterol, serum 57 mg/dL 32-96 LDL cholesterol, serum 73 mg/dL 0-130 prostate specific antigen 1.45 ng/mL 0.00-4.00 TSH 14.03 m[iU]/mL 0.36-3.74 thyroxine, serum, free 0.80 ng/dL 0.76-1.46 Lab Report: Thyroid Stimulating Hormone (L), Comp. Metabolic Panel, CBC, ... - Chemistry cholesterol, serum 189 mg/dL 016-038 2806/04/06 triglyceride, serum, fasting 117 mg/dL 30-200 HDL cholesterol, serum 70 mg/dL 32-96 LDL cholesterol, serum 96 mg/dL 0-130 sodium, serum 140 mmol/L 594-632 0442/04/06 carbon dioxide, venous blood 36.3 mmol/L 21.0-32.0 potassium, serum 4.9 mmol/L 3.5-5.2 chloride, serum 100 mmol/L 98-107 blood glucose 62 mg/dL 65-110 TSH 43.52 m[iU]/mL 0.36-3.74 urea nitrogen, blood 24 mg/dL 7-18 creatinine, [...] 142-424 Encounters Code Encounter Date Provider Facility CPT-35960 Level 4 Est. Patient 10:51:20 CDT Austin Albarado MD [facility]-64054 Level 4 Est. Patient 20:09:43 PARADICHLOROBENZENE TENDER Austin Albarado MD [facility]-88872 Level 4 Est. Patient 21:00:28 CDT Austin Albarado MD [facility]-96538 Level 4 Est. Patient 10:03:37 CDT Austin Albarado MD [facility]-82030 Level 3 Est. Patient 10:50:28 PARADICHLOROBENZENE TENDER Austin Albarado MD [facility]-23879 Level 4 Est. Patient 21:31:41 PARADICHLOROBENZENE TENDER Austin Albarado MD [facility]-94790 Level 3 Est. Patient 16:22:54 PARADICHLOROBENZENE TENDER Jann Law DO [facility] CPT-51908 Level 3 Est. Patient 11:04:53 PARADICHLOROBENZENE TENDER Tristan Vaughn MD [facility] CPT-88368 Level 4 Est. Patient 09:50:59 CDT Austin Albarado MD [facility]-05915 Level 4 Est. Patient 09:29:00 CDT Austin Albarado MD [facility]-11595 Level 4 Est. Patient 14:23:07 CDT Austin Albarado MD [facility]-77412 Level 4 Est. Patient 14:27:26 CDT Austin Albarado MD [facility]-37325 Level 4 Est. Patient 12:51:43 PARADICHLOROBENZENE TENDER Austin Albarado MD [facility] CPT-55893 Level 3 New Patient 14:17:38 PARADICHLOROBENZENE TENDER Austin Albarado MD [facility] CPT-97950 Level 3 New Patient 11:28:18 PARADICHLOROBENZENE TENDER Austin Albarado MD [facility] Procedures Code Procedure Name Date Entry Date Standard Description CPT-G0009 Administration of Pneumococcal Vaccine 13:25:27 CDT CPT-56704 Prevnar 13 Intramuscular Suspension 13:25:27 CDT 09/26 CPT-G0438 Initial Annual Wellness Exam 11:28:26 CDT CPT-73927 Chest 2V Frontal and Lat 15:00:00 PARADICHLOROBENZENE TENDER CPT-73394 Breathing Tx 14:49:25 PARADICHLOROBENZENE TENDER CPT-10575 Fluzone High Dose 15:08:41 PARADICHLOROBENZENE TENDER CPT-48465 Immunization Single Admin 15:08:41 PARADICHLOROBENZENE TENDER CPT-46347 Fluzone High Dose 17:31:19 CDT CPT-24807 Administration single or combination vaccine inc oral 17 :31:19 CDT CPT-28932 Venipuncture Draw Fee 11:03:05 CDT CPT-TCMM Transitional Care Mgmt-Moderate 16:32:35 CDT CPT-27930 Chest 2V Frontal and Lat 11:51:09 CDT CPT-G0008 Administration of Influenza Virus Vaccine 15:09:08 CDT CPT-45189 Fluzone High-Dose Intramuscular Suspension 15:09:08 CDT CPT-60426 Administration single or combination vaccine inc oral 17 :07:02 PARADICHLOROBENZENE TENDER CPT-92909 Influenza High Dose age 65+ 17:07:02 PARADICHLOROBENZENE TENDER
--- OUTSIDE RECORDS SUMMARY | 2017-02-27 22:15 | XMS REPORT | Clinical Summary ---
Author Author Admin, DILLONE Organization [employer] Address Unknown Phone Unavailable Allergies, Adverse Reactions, [...] Coronary atherosclerosis of unspecified type of vessel, rosebud or graft Peripheral edema 782.3 Active Austin Albarado MD Edema U R I ICD-465.9 Inactive Austin Albarado MD 06/13 Bronchitis-Acute ICD-466.0 Inactive Austin Albarado MD Medication List Medication Instructions Start Date Stop Date Generic Name NDC Status Provider Patient Instruction FUROSEMIDE 20 MG TABS take 1 tab po BID for swelling FUROSEMIDE 17753577597 Active Austin Albarado MD Active LEVAQUIN 500 MG TAB 1 tablet by mouth daily LEVOFLOXACIN 83572811260 Active Mica Sneed Active PREDNISONE 20 MG ORAL TABS 3 tabs po for 3 days than,2 tabs po for 3 days,1 tab po for 3 days, 1/2 tab po for 3 days. PREDNISONE 50722381993 Active Madhavi Fiore Active AMOXICILLIN 500 MG ORAL TABS Take one by mouth 3 times daily, morning, afternoon and evening.] AMOXICILLIN 82967759160 No Longer Active Garcia Stroud MD Active PREDNISONE 20 MG ORAL TABS 3 daily for 3 days than, 2 tabs daily for 3 days than, 2 tabs daily for 3 days than, 1 tab daily for 3 days than 1/2 tab daily for 3 days. PREDNISONE 64539179773 No Longer Active Tracie Arrington APRN Active FLUTICASONE PROPIONATE 50 MCG/ACT SUSP 1 to 2 sprays each nostril daily 08/21 FLUTICASONE PROPIONATE 28304058259 Active Simona Galloway APRN Active PREDNISONE 10 MG TAB take 1 tab po qday for severe COPD PREDNISONE 83695495130 Active Austin Albarado MD Active PREDNISONE 20 MG ORAL TABS 3 TABS PO FOR 3 DAYS,THAN 2 TABS FOR 3 DAYS THAN, 1 TAB FOR 3 DAYS THAN, 1/2 TAB FOR 3 DAYS. PREDNISONE 35821215069 No Longer Active Austin Albarado MD Active LEVAQUIN 500 MG TAB 1 tablet by mouth daily for 10 days. LEVOFLOXACIN 34042965760 No Longer Active Austin Albarado MD Active PREDNISONE 20 MG TAB take 3 tabs daily for 3 days, 2 tabs daily for 3 days, 1 tab daily for 3 days, 1/2 tab daily for 3 days PREDNISONE 95389144650 No Longer Active Simona Galloway APRN Active ZITHROMAX 1 GM ORAL PACK DIRECTED AZITHROMYCIN 83872627960 No Longer Active Simona Galloway APRN Active PREDNISONE 20 MG TAB 2 tabs daily for 4 days, 1 tab daily for 4 days, 1/2 tab daily for 4 days PREDNISONE 31814134449 No Longer Active Austin Albarado MD Active LEVAQUIN 500 MG TAB 1 tablet by mouth daily LEVOFLOXACIN 51775132770 No Longer Active Austin Albarado MD Active PREDNISONE 20 MG TAB take 3 tabs daily for 3 days, 2 tabs daily for 3 days, 1 tab daily for 3 days, 1/2 tab daily for 3 days PREDNISONE 20369614887 No Longer Active Austin Albarado MD Active DOXYCYCLINE HYCLATE 100 MG CAP 1 cap by mouth twice daily DOXYCYCLINE HYCLATE 13138274110 No Longer Active Esperanza Modi APRN Active ALBUTEROL SULFATE (2.5 MG/3ML) 0.083% NEBU nebulize 1 vial q 4-6 hours prn shortness of breath ALBUTEROL SULFATE 97168558585 No Longer Active Esperanza Modi APRN Active TORSEMIDE 20 MG TABS 1 TAB PO BID TORSEMIDE 33089430321 No Longer Active Jillaftab Modi CARD GAME OPERATOR Active PREDNISONE 20 MG TAB 2 tabs daily for 3 days, 1 tab daily for 3 days, 1/2 tab daily for 2 days PREDNISONE 65943409983 No Longer Active Austin Albarado MD Active LEVOFLOXACIN 500 MG ORAL TABS take 1 tab po qday LEVOFLOXACIN 36640201215 No Longer Active Austin Albarado MD Active PREDNISONE 20 MG TAB 2 tablets today, then 1 tablet by mouth days 2-5 PREDNISONE 13226158914 No Longer Active Austin Albarado MD Active AZITHROMYCIN 500 MG SOLR 1 po q day AZITHROMYCIN 39820768344 No Longer Active Austin Albarado MD Active KEFLEX 500 MG CAP 1 po TID x 7 days CEPHALEXIN 29230061366 No Longer Active Tristan Vaughn MD Active EQL VISION FORMULA TABS 1 TAB PO DAILY MULTIPLE VITAMINS-MINERALS 11947053774 No Longer Active Tristan Vaughn MD Active CHANTIX STARTING MONTH ELVIS 0.5 MG X 11 & 1 MG X 42 TABS 0.5mg daily for 3 days , then 0.5mg BID for 4 days, then 1mg BID VARENICLINE TARTRATE 34466042352 No Longer Active Tristan Vaughn MD Active LEVOTHYROXINE SODIUM 200 MCG TABS 1 TAB PO DAILY LEVOTHYROXINE SODIUM 29918316652 No Longer Active Tristan Vaughn MD Active LIOTHYRONINE SODIUM 50 MCG TABS take 1 tab po qday for hypothyroidism LIOTHYRONINE SODIUM 54635511153 No Longer Active Austin Albarado MD Active SYNTHROID 0.025 MG TAB 1 tablet by mouth daily LEVOTHYROXINE SODIUM 42454057648 No Longer Active Austin Albarado MD Active ARMOUR THYROID 120 MG TABS take 1 tab po qday for hypothyroidism THYROID 49760719432 Active Austin Albarado MD Active FLONASE 50 MCG/ACT SUSP 1 spray each nostril am and hs FLUTICASONE PROPIONATE Active Simona Galloway APRN Active ZITHROMAX 1 GM PACK DIRECTED AZITHROMYCIN 64891342261 No Longer Active Austin Albarado MD Active PREDNISONE 20 MG TAB 2 tabs daily for 3 days, 1 tab daily for 3 days, 1/2 tab daily for 2 days PREDNISONE 18549478620 No Longer Active Austin Albarado MD Active ZITHROMAX 250 MG TAB 2 po today, then 1 po q days 2-5 AZITHROMYCIN 68782713299 No Longer Active Austin Albarado MD Active NYSTATIN-TRIAMCINOLONE 839819-3.1 UNIT/GM-% OINT Apply to affected area TID NYSTATIN-TRIAMCINOLONE 58558540530 Active Austin Albarado MD Active IPRATROPIUM-ALBUTEROL 0.5-2.5 (3) MG/3ML SOLN 1 VIAL NEB Q 6 HRS PRN IPRATROPIUM-ALBUTEROL 14897185535 Active Simona Galloway APRN Active PROAIR HFA 108 (90 BASE) MCG/ACT AERS take 1-2 puffs q4hrs prn cough/ SOB ALBUTEROL SULFATE 61522953705 Active Austin Albarado MD Active ADVAIR DISKUS 500-50 MCG/DOSE AEPB ONE INH BID FLUTICASONE- SALMETEROL 34949597196 Active Austin Albarado MD Active ZITHROMAX 1 GM PACK DIRECTED ZITHROMAX 1 GM PACK 241982 AZITHROMYCIN Inactive SYNTHROID 0.025 MG TAB 1 tablet by mouth daily SYNTHROID 0.025 MG TAB 728304 LEVOTHYROXINE SODIUM Inactive LIOTHYRONINE SODIUM 50 MCG TABS take 1 tab po qday for hypothyroidism LIOTHYRONINE SODIUM 50 MCG TABS 234120 LIOTHYRONINE SODIUM Inactive LEVOTHYROXINE SODIUM 200 MCG TABS 1 TAB PO DAILY LEVOTHYROXINE SODIUM 200 MCG TABS 595427 LEVOTHYROXINE SODIUM Inactive CHANTIX STARTING MONTH ELVIS [...] po q day AZITHROMYCIN 500 MG SOLR 00999413936 AZITHROMYCIN Inactive PREDNISONE 20 MG TAB 2 tablets today, then 1 tablet by mouth days 2-5 PREDNISONE 20 MG TAB 385913 PREDNISONE Inactive TORSEMIDE 20 MG TABS 1 TAB PO BID TORSEMIDE 20 MG TABS 398095 TORSEMIDE Inactive ALBUTEROL SULFATE (2.5 MG/3ML) 0.083% NEBU nebulize 1 vial q 4-6 hours prn shortness of breath ALBUTEROL SULFATE (2.5 MG/3ML) 0.083% NEBU 737001 ALBUTEROL SULFATE Inactive LEVAQUIN 500 MG TAB 1 tablet by mouth daily LEVAQUIN 500 MG TAB 954218 LEVOFLOXACIN Inactive PREDNISONE 20 MG TAB 2 tabs daily for 4 days, 1 tab daily for 4 days, 1/2 tab daily for 4 days PREDNISONE 20 MG TAB 606181 PREDNISONE Inactive ZITHROMAX 1 GM ORAL PACK DIRECTED ZITHROMAX 1 GM ORAL PACK 491596 AZITHROMYCIN Inactive LEVAQUIN 500 MG TAB 1 tablet by mouth daily for 10 days. LEVAQUIN 500 MG TAB 846437 LEVOFLOXACIN Inactive PREDNISONE 20 MG ORAL TABS 3 TABS PO FOR 3 DAYS,THAN 2 TABS FOR 3 DAYS THAN, 1 TAB FOR 3 DAYS THAN, 1/2 TAB FOR 3 DAYS. PREDNISONE 20 MG ORAL TABS 967918 PREDNISONE Inactive PREDNISONE 20 MG ORAL TABS 3 daily for 3 days than, 2 tabs daily for 3 days than, 2 tabs daily for 3 days than, 1 tab daily for 3 days than 1/2 tab daily for 3 days. PREDNISONE 20 MG ORAL TABS 808452 PREDNISONE Inactive AMOXICILLIN 500 MG ORAL TABS Take one by mouth 3 times daily, morning, afternoon and evening.] AMOXICILLIN 500 MG ORAL TABS 696827 AMOXICILLIN Inactive ZITHROMAX 250 MG TAB 2 po today, then 1 po q days 2-5 ZITHROMAX 250 MG TAB 4545098 AZITHROMYCIN Inactive PREDNISONE 20 MG TAB 2 tabs daily for 3 days, 1 tab daily for 3 days, 1/2 tab daily for 2 days PREDNISONE 20 MG TAB 157505 PREDNISONE Inactive KEFLEX 500 MG CAP 1 po TID x 7 days KEFLEX 500 MG CAP 359459 CEPHALEXIN Inactive LEVOFLOXACIN 500 MG ORAL TABS take 1 tab po qday LEVOFLOXACIN 500 MG ORAL TABS 785834 LEVOFLOXACIN Inactive PREDNISONE 20 MG TAB 2 tabs daily for 3 days, 1 tab daily for 3 days, 1/2 tab daily for 2 days PREDNISONE 20 MG TAB 426215 PREDNISONE Inactive DOXYCYCLINE HYCLATE 100 MG CAP 1 cap by mouth twice daily DOXYCYCLINE HYCLATE 100 MG CAP 8558890 DOXYCYCLINE HYCLATE Inactive PREDNISONE 20 MG TAB take 3 tabs daily for 3 days, 2 tabs daily for 3 days, 1 tab daily for 3 days, 1/2 tab daily for 3 days PREDNISONE 20 MG TAB 862788 PREDNISONE Inactive PREDNISONE 20 MG TAB take 3 tabs daily for 3 days, 2 tabs daily for 3 days, 1 tab daily for 3 days, 1/2 tab daily for 3 days PREDNISONE 20 MG TAB 060173 PREDNISONE Inactive Advance Directives Directive Description Start [...] 43.52 m[iU]/mL 0.36-3.74 sodium, serum 140 mmol/L 731-103 5795/04/06 carbon dioxide, venous blood 36.3 mmol/L 21.0-32.0 potassium, serum 4.9 mmol/L 3.5-5.2 chloride, serum 100 mmol/L 98-107 blood glucose 62 mg/dL 65-110 urea nitrogen, blood 24 mg/dL 7-18 creatinine, serum 1.09 mg/dL 0.55-1.30 alanine aminotransferase (SGPT), serum 44 U/L 12-78 aspartate aminotransferase (SGOT), serum 25 U/L 15-37 calcium, serum 8.7 mg/dL 8.5-10.1 bilirubin, serum, total 0.50 mg/dL 0.00-1.00 cholesterol, serum 189 mg/dL 928-154 7156/04/06 triglyceride, serum, fasting 117 mg/dL 30-200 HDL [...] 142-424 Encounters Code Encounter Date Provider Facility CPT-52900 Level 4 Est. Patient 16:11:14 CANE FLUME WATCHER Austin Albarado MD [facility] CPT-96589 Level 4 Est. Patient 23:08:56 CDT Austin Albarado MD [facility] CPT-31957 Level 4 Est. Patient 13:27:28 CDT Garcia Stroud MD [facility] CPT-37713 Level 4 Est. Patient 10:51:20 CDT Austin Albarado MD [facility] CPT-54791 Level 4 Est. Patient 20:09:43 CANE FLUME WATCHER Austin Albarado MD [facility] CPT-67127 Level 4 Est. Patient 21:00:28 CDT Austin Albarado MD [facility] CPT-93323 Level 4 Est. Patient 10:03:37 CDT Austin Albarado MD [facility] CPT-14895 Level 3 Est. Patient 10:50:28 CANE FLUME WATCHER Austin Albarado MD [facility] CPT-99830 Level 4 Est. Patient 21:31:41 CANE FLUME WATCHER Austin Albarado MD [facility] CPT-56519 Level 3 Est. Patient 16:22:54 CANE FLUME WATCHER Jann Law DO [facility] CPT-18180 Level 3 Est. Patient 11:04:53 CANE FLUME WATCHER Tristan Vaughn MD [facility] CPT-17648 Level 4 Est. Patient 09:50:59 CDT Austin Albarado MD [facility] CPT-97698 Level 4 Est. Patient 09:29:00 CDT Austin Albarado MD [facility] CPT-54797 Level 4 Est. Patient 14:23:07 CDT Austin Albarado MD [facility] CPT-89933 Level 4 Est. Patient 14:27:26 CDT Austin Albarado MD [facility] CPT-39386 Level 4 Est. Patient 12:51:43 CANE FLUME WATCHER Austin Albarado MD [facility] CPT-13218 Level 3 New Patient 14:17:38 CANE FLUME WATCHER Austin Albarado MD [facility] CPT-28251 Level 3 New Patient 11:28:18 CANE FLUME WATCHER Austin Albarado MD [facility] Procedures Code Procedure Name Date Entry Date Standard Description CPT-19625 First Vx - Ix admin for Medicare patients 16:00:49 CDT CPT-20367 Fluzone High-Dose Intramuscular Suspension 16:00:49 CDT CPT-G0009 Administration of Pneumococcal Vaccine 13:25:27 CDT CPT-25011 Prevnar 13 Intramuscular Suspension 13:25:27 CDT 09/26 CPT-G0438 Initial Annual Wellness Exam 11:28:26 CDT CPT-84125 Chest 2V Frontal and Lat 15:00:00 CANE FLUME WATCHER CPT-86123 Breathing Tx 14:49:25 CANE FLUME WATCHER CPT-51158 Fluzone High Dose 15:08:41 CANE FLUME WATCHER CPT-63220 Immunization Single Admin 15:08:41 CANE FLUME WATCHER CPT-35124 Fluzone High Dose 17:31:19 CDT CPT-33385 Administration single or combination vaccine inc oral 17 :31:19 CDT CPT-03169 Venipuncture Draw Fee 11:03:05 CDT CPT-TCMM Transitional Care Mgmt-Moderate 16:32:35 CDT CPT-60692 Chest 2V Frontal and Lat 11:51:09 CDT CPT-G0008 Administration of Influenza Virus Vaccine 15:09:08 CDT CPT-71476 Fluzone High-Dose Intramuscular Suspension 15:09:08 CDT CPT-66706 Administration single or combination vaccine inc oral 17 :07:02 CANE FLUME WATCHER CPT-81022 Influenza High Dose age 65+ 17:07:02 CANE FLUME WATCHER
--- OUTSIDE RECORDS SUMMARY | 2017-02-27 22:16 | XMS REPORT ---
Author Author [facility] Medical Staff Organization [facility] Address [address] [place], [place] [id number] Phone [phone] Care Team Providers Care Lighting Engineer Name Role Phone YANDY MARY MD PP [phone] Summary purpose TRANSITION OF CARE AUTO GENERATION [...] this patient visit Allergies, adverse reactions, alerts No allergy information is available for this patient. Immunizations No immunizations recorded for this patient [...]
--- OUTSIDE RECORDS SUMMARY | 2017-02-27 22:16 | XMS REPORT | Clinical Summary ---
Author Author Admin, E Organization [employer] Address Unknown Phone Unavailable Allergies, Adverse Reactions, [...] of unspecified type of vessel, [place] or graft Peripheral edema 782.3 Active Austin [...] 1/2 tab po for 3 days. PREDNISONE 19831838743 No Longer Active Simona Galloway APRN Active LEVAQUIN 500 MG TAB 1 tablet by mouth daily LEVOFLOXACIN 43158877239 No Longer Active Simona Galloway APRN Active PREDNISONE 20 MG TAB take 3 tabs daily for 3 days, 2 tabs daily for 3 days, 1 tab daily for 3 days, 1/2 tab daily for 3 days PREDNISONE 40658971688 No Longer Active Austin Albarado MD Active LEVAQUIN 500 MG TAB 1 tablet by mouth daily LEVOFLOXACIN 03750874134 No Longer Active Madhavi Fiore Active FUROSEMIDE 20 MG TABS take 1 tab po BID for swelling FUROSEMIDE 03193225489 Active Austin Albarado MD Active AMOXICILLIN 500 MG ORAL TABS Take one by mouth 3 times daily, morning, afternoon and evening.] AMOXICILLIN 78872852330 No Longer Active Garcia Stroud MD Active PREDNISONE 20 MG ORAL TABS 3 daily for 3 days than, 2 tabs daily for 3 days than, 2 tabs daily for 3 days than, 1 tab daily for 3 days than 1/2 tab daily for 3 days. PREDNISONE 63284071584 No Longer Active Tracie Arrington APRN Active FLUTICASONE PROPIONATE 50 MCG/ACT SUSP 1 to 2 sprays each nostril daily 08/21 FLUTICASONE PROPIONATE 71759368987 Active Simona Galloway APRN Active PREDNISONE 10 MG TAB take 1 tab po qday for severe COPD PREDNISONE 03828989365 Active Austin Albarado MD Active PREDNISONE 20 MG ORAL TABS 3 TABS PO FOR 3 DAYS,THAN 2 TABS FOR 3 DAYS THAN, 1 TAB FOR 3 DAYS THAN, 1/2 TAB FOR 3 DAYS. PREDNISONE 44643203029 No Longer Active Austin Albarado MD Active LEVAQUIN 500 MG TAB 1 tablet by mouth daily for 10 days. LEVOFLOXACIN 12759850821 No Longer Active Austin Albarado MD Active PREDNISONE 20 MG TAB take 3 tabs daily for 3 days, 2 tabs daily for 3 days, 1 tab daily for 3 days, 1/2 tab daily for 3 days PREDNISONE 68059185594 No Longer Active Simona Galloway APRN Active ZITHROMAX 1 GM ORAL PACK DIRECTED AZITHROMYCIN 30721550763 No Longer Active Simona Galloway APRN Active PREDNISONE 20 MG TAB 2 tabs daily for 4 days, 1 tab daily for 4 days, 1/2 tab daily for 4 days PREDNISONE 35892378448 No Longer Active Austin Albarado MD Active LEVAQUIN 500 MG TAB 1 tablet by mouth daily LEVOFLOXACIN 00024766572 No Longer Active Austin Albarado MD Active PREDNISONE 20 MG TAB take 3 tabs daily for 3 days, 2 tabs daily for 3 days, 1 tab daily for 3 days, 1/2 tab daily for 3 days PREDNISONE 69729603449 No Longer Active Austin Albarado MD Active DOXYCYCLINE HYCLATE 100 MG CAP 1 cap by mouth twice daily DOXYCYCLINE HYCLATE 53239215078 No Longer Active Jillina Frazeldemario RIPRAP PLACER Active ALBUTEROL SULFATE (2.5 MG/3ML) 0.083% NEBU nebulize 1 vial q 4-6 hours prn shortness of breath ALBUTEROL SULFATE 70607143036 No Longer Active 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 RIPRAP PLACER Active TORSEMIDE 20 MG TABS 1 TAB PO BID TORSEMIDE 72639485178 No Longer Active 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 RIPRAP PLACER Active PREDNISONE 20 MG TAB 2 tabs daily for 3 days, 1 tab daily for 3 days, 1/2 tab daily for 2 days PREDNISONE 42089150770 No Longer Active Austin Albarado MD Active LEVOFLOXACIN 500 MG ORAL TABS take 1 tab po qday LEVOFLOXACIN 12849468791 No Longer Active Austin Albarado MD Active PREDNISONE 20 MG TAB 2 tablets today, then 1 tablet by mouth days 2-5 PREDNISONE 67386820261 No Longer Active Austin Albarado MD Active AZITHROMYCIN 500 MG SOLR 1 po q day AZITHROMYCIN 03969542360 No Longer Active Austin Albarado MD Active KEFLEX 500 MG CAP 1 po TID x 7 days CEPHALEXIN 60419133527 No Longer Active Tristan Vaughn MD Active EQL VISION FORMULA TABS 1 TAB PO DAILY MULTIPLE VITAMINS-MINERALS 10991741051 No Longer Active Tristan Vaughn MD Active CHANTIX STARTING MONTH ELVIS 0.5 MG X 11 & 1 MG X 42 TABS 0.5mg daily for 3 days , then 0.5mg BID for 4 days, then 1mg BID VARENICLINE TARTRATE 71681717781 No Longer Active Tristan Vaughn MD Active LEVOTHYROXINE SODIUM 200 MCG TABS 1 TAB PO DAILY LEVOTHYROXINE SODIUM 22839853186 No Longer Active Tristan Vaughn MD Active LIOTHYRONINE SODIUM 50 MCG TABS take 1 tab po qday for hypothyroidism LIOTHYRONINE SODIUM 88433652978 No Longer Active Austin Albarado MD Active SYNTHROID 0.025 MG TAB 1 tablet by mouth daily LEVOTHYROXINE SODIUM 50696119062 No Longer Active Austin Albarado MD Active ARMOUR THYROID 120 MG TABS take 1 tab po qday for hypothyroidism THYROID 23597956311 Active Austin Albarado MD Active FLONASE 50 MCG/ACT SUSP 1 spray each nostril am and hs FLUTICASONE PROPIONATE Active Simona Galloway APRN Active ZITHROMAX 1 GM PACK DIRECTED AZITHROMYCIN 09084736383 No Longer Active Austin Albarado MD Active PREDNISONE 20 MG TAB 2 tabs daily for 3 days, 1 tab daily for 3 days, 1/2 tab daily for 2 days PREDNISONE 66895053314 No Longer Active Austin Albarado MD Active ZITHROMAX 250 MG TAB 2 po today, then 1 po q days 2-5 AZITHROMYCIN 87902197111 No Longer Active Austin Albarado MD Active NYSTATIN-TRIAMCINOLONE 146107-9.1 UNIT/GM-% OINT Apply to affected area TID NYSTATIN-TRIAMCINOLONE 19431211928 Active Austin Albarado MD Active IPRATROPIUM-ALBUTEROL 0.5-2.5 (3) MG/3ML SOLN 1 VIAL NEB Q 6 HRS PRN IPRATROPIUM-ALBUTEROL 87582659840 Active Simonastacie Galloway RIPRAP PLACER Active PROAIR HFA 108 (90 BASE) MCG/ACT AERS take 1-2 puffs q4hrs prn cough/ SOB ALBUTEROL SULFATE 01983525686 Active Austin Albraado MD Active ADVAIR DISKUS 500-50 MCG/DOSE AEPB ONE INH BID FLUTICASONE- SALMETEROL 00294996023 Active Austin Albarado MD Active ZITHROMAX 1 GM PACK DIRECTED ZITHROMAX 1 GM PACK 816442 AZITHROMYCIN Inactive SYNTHROID 0.025 MG TAB 1 tablet by mouth daily SYNTHROID 0.025 MG TAB 001990 LEVOTHYROXINE SODIUM Inactive LIOTHYRONINE SODIUM 50 MCG TABS take 1 tab po qday for hypothyroidism LIOTHYRONINE SODIUM 50 MCG TABS 301816 LIOTHYRONINE SODIUM Inactive LEVOTHYROXINE SODIUM 200 MCG TABS 1 TAB PO DAILY LEVOTHYROXINE SODIUM 200 MCG TABS 036319 LEVOTHYROXINE SODIUM Inactive CHANTIX STARTING MONTH ELVIS [...] po q day AZITHROMYCIN 500 MG SOLR 40503694167 AZITHROMYCIN Inactive PREDNISONE 20 MG TAB 2 tablets today, then 1 tablet by mouth days 2-5 PREDNISONE 20 MG TAB 031182 PREDNISONE Inactive TORSEMIDE 20 MG TABS 1 TAB PO BID TORSEMIDE 20 MG TABS 233461 TORSEMIDE Inactive ALBUTEROL SULFATE (2.5 MG/3ML) 0.083% NEBU nebulize 1 vial q 4-6 hours prn shortness of breath ALBUTEROL SULFATE (2.5 MG/3ML) 0.083% NEBU 867231 ALBUTEROL SULFATE Inactive LEVAQUIN 500 MG TAB 1 tablet by mouth daily LEVAQUIN 500 MG TAB 869478 LEVOFLOXACIN Inactive PREDNISONE 20 MG TAB 2 tabs daily for 4 days, 1 tab daily for 4 days, 1/2 tab daily for 4 days PREDNISONE 20 MG TAB 740901 PREDNISONE Inactive ZITHROMAX 1 GM ORAL PACK DIRECTED ZITHROMAX 1 GM ORAL PACK 416251 AZITHROMYCIN Inactive LEVAQUIN 500 MG TAB 1 tablet by mouth daily for 10 days. LEVAQUIN 500 MG TAB 057438 LEVOFLOXACIN Inactive PREDNISONE 20 MG ORAL TABS 3 TABS PO FOR 3 DAYS,THAN 2 TABS FOR 3 DAYS THAN, 1 TAB FOR 3 DAYS THAN, 1/2 TAB FOR 3 DAYS. PREDNISONE 20 MG ORAL TABS 154060 PREDNISONE Inactive PREDNISONE 20 MG ORAL TABS 3 daily for 3 days than, 2 tabs daily for 3 days than, 2 tabs daily for 3 days than, 1 tab daily for 3 days than 1/2 tab daily for 3 days. PREDNISONE 20 MG ORAL TABS 630130 PREDNISONE Inactive AMOXICILLIN 500 MG ORAL TABS Take one by mouth 3 times daily, morning, afternoon and evening.] AMOXICILLIN 500 MG ORAL TABS 197133 AMOXICILLIN Inactive LEVAQUIN 500 MG TAB 1 tablet by mouth daily LEVAQUIN 500 MG TAB 552911 LEVOFLOXACIN Inactive LEVAQUIN 500 MG TAB 1 tablet by mouth daily LEVAQUIN 500 MG TAB 821661 LEVOFLOXACIN Inactive PREDNISONE 20 MG ORAL TABS 3 tabs po for 3 days than,2 tabs po for 3 days,1 tab po for 3 days, 1/2 tab po for 3 days. PREDNISONE 20 MG ORAL TABS 423517 PREDNISONE Inactive ZITHROMAX 250 MG TAB 2 po today, then 1 po q days 2-5 ZITHROMAX 250 MG TAB 9620496 AZITHROMYCIN Inactive PREDNISONE 20 MG TAB 2 tabs daily for 3 days, 1 tab daily for 3 days, 1/2 tab daily for 2 days PREDNISONE 20 MG TAB 907787 PREDNISONE Inactive KEFLEX 500 MG CAP 1 po TID x 7 days KEFLEX 500 MG CAP 923593 CEPHALEXIN Inactive LEVOFLOXACIN 500 MG ORAL TABS take 1 tab po qday LEVOFLOXACIN 500 MG ORAL TABS 206064 LEVOFLOXACIN Inactive PREDNISONE 20 MG TAB 2 tabs daily for 3 days, 1 tab daily for 3 days, 1/2 tab daily for 2 days PREDNISONE 20 MG TAB 832157 PREDNISONE Inactive DOXYCYCLINE HYCLATE 100 MG CAP 1 cap by mouth twice daily DOXYCYCLINE HYCLATE 100 MG CAP 1155455 DOXYCYCLINE HYCLATE Inactive PREDNISONE 20 MG TAB take 3 tabs daily for 3 days, 2 tabs daily for 3 days, 1 tab daily for 3 days, 1/2 tab daily for 3 days PREDNISONE 20 MG TAB 603785 PREDNISONE Inactive PREDNISONE 20 MG TAB take 3 tabs daily for 3 days, 2 tabs daily for 3 days, 1 tab daily for 3 days, 1/2 tab daily for 3 days PREDNISONE 20 MG TAB 811180 PREDNISONE Inactive PREDNISONE 20 MG TAB take 3 tabs daily for 3 days, 2 tabs daily for 3 days, 1 tab daily for 3 days, 1/2 tab daily for 3 days PREDNISONE 20 MG TAB 309437 PREDNISONE Inactive Advance Directives Directive Description Start [...] Peptide - Chemistry sodium, serum 140 mmol/L 895-749 7832/02/09 carbon dioxide, venous blood 39.2 mmol/L 21.0-32.0 [...] 43.52 m[iU]/mL 0.36-3.74 sodium, serum 140 mmol/L 961-595 8175/04/06 carbon dioxide, venous blood 36.3 mmol/L 21.0-32.0 potassium, serum 4.9 mmol/L 3.5-5.2 chloride, serum 100 mmol/L 98-107 blood glucose 62 mg/dL 65-110 urea nitrogen, blood 24 mg/dL 7-18 creatinine, serum 1.09 mg/dL 0.55-1.30 alanine aminotransferase (SGPT), serum 44 U/L -78 aspartate aminotransferase (SGOT), serum 25 U/L 15-37 calcium, serum 8.7 mg/dL 8.5-10.1 bilirubin, serum, total 0.50 mg/dL 0.00-1.00 cholesterol, serum 189 mg/dL 202-026 6588/04/06 triglyceride, serum, fasting 117 mg/dL 30-200 HDL [...] 142-424 Encounters Code Encounter Date Provider Facility CPT-77549 Level 4 Est. Patient 17:54:41 METAL [employer]OY SCIENTIST Austin Albarado MD [facility] CPT-64371 Level 4 Est. Patient 16:11:14 MET[employer] SCIENTIST Austin Albarado MD [facility] CPT-34075 Level 4 Est. Patient 23:08:56 CDT Austin Albarado MD [facility] CPT-69608 Level 4 Est. Patient 13:27:28 CDT Garcia Stroud MD [facility] CPT-00941 Level 4 Est. Patient 10:51:20 CDT Austin Albarado MD [facility] CPT-81743 Level 4 Est. Patient 20:09:43 METAL [employer]OY SCIENTIST Austin Albarado MD [facility] CPT-24049 Level 4 Est. Patient 21:00:28 CDT Austin Albarado MD [facility] CPT-26474 Level 4 Est. Patient 10:03:37 CDT Austin Albarado MD [facility] CPT-59648 Level 3 Est. Patient 10:50:28 METAL [employer]OY SCIENTIST Austin Albarado MD [facility] CPT-62144 Level 4 Est. Patient 21:31:41 METAL [employer]OY SCIENTIST Austin Albarado MD [facility] CPT-01264 Level 3 Est. Patient 16:22:54 MET[employer]OY SCIENTIST Jann Law DO [facility] CPT-35715 Level 3 Est. Patient 11:04:53 MET[employer]OY SCIENTIST Tristan Vaughn MD [facility] CPT-55724 Level 4 Est. Patient 09:50:59 CDT Austin Albarado MD [facility] CPT-70076 Level 4 Est. Patient 09:29:00 CDT Austin Albarado MD [facility] CPT-84294 Level 4 Est. Patient 14:23:07 CDT Austin Albarado MD [facility] CPT-87995 Level 4 Est. Patient 14:27:26 CDT Austin Albarado MD [facility] CPT-60267 Level 4 Est. Patient 12:51:43 METAL ALLOY SCIENTIST Austin Albarado MD [facility] CPT-11650 Level 3 New Patient 14:17:38 METAL [employer]OY SCIENTIST Austin Albarado MD [facility] CPT-02666 Level 3 New Patient 11:28:18 METAL [employer]OY SCIENTIST Austin Albarado MD [facility] Procedures Code Procedure Name Date Entry Date Standard Description CPT-TCMM Transitional Care Mgmt-Moderate 14:53:36 METAL [employer]OY SCIENTIST CPT-71829 No Charge Offi Visit 10:19:33 METAL [employer]OY SCIENTIST CPT-92053 Chest 2V Frontal and Lat - XRAY USE ONLY 15:01:41 METAL [employer]OY SCIENTIST CPT-98867 First Vx - Ix admin for Medicare patients 16:00:49 CDT CPT-60309 Fluzone High-Dose Intramuscular Suspension 16:00:49 CDT CPT-G0009 Administration of Pneumococcal Vaccine 13:25:27 CDT CPT-15703 Prevnar 13 Intramuscular Suspension 13:25:27 CDT 09/26 CPT-G0438 Initial Annual Wellness Exam 11:28:26 CDT CPT-22173 Chest 2V Frontal and Lat 15:00:00 MET[employer]OY SCIENTIST CPT-97058 Breathing Tx 14:49:25 METAL [employer]OY SCIENTIST CPT-37626 Fluzone High Dose 15:08:41 METAL [employer]OY SCIENTIST CPT-34953 Immunization Single Admin 15:08:41 METAL [employer]OY SCIENTIST CPT-93883 Fluzone High Dose 17:31:19 CDT CPT-40617 Administration single or combination vaccine inc oral 17 :31:19 CDT CPT-18390 Venipuncture Draw Fee 11:03:05 CDT CPT-TCMM Transitional Care Mgmt-Moderate 16:32:35 CDT CPT-02978 Chest 2V Frontal and Lat 11:51:09 CDT CPT-G0008 Administration of Influenza Virus Vaccine 15:09:08 CDT CPT-16810 Fluzone High-Dose Intramuscular Suspension 15:09:08 CDT CPT-40289 Administration single or combination vaccine inc oral 17 :07:02 METAL [employer]OY SCIENTIST CPT-90059 Influenza High Dose age 65+ 17:07:02 METAL ALLOY SCIENTIST
--- OUTSIDE RECORDS SUMMARY | 2017-02-27 22:16 | XMS REPORT | Clinical Summary ---
Author Author Admin, LEE Organization [facility] Address Unknown Phone Unavailable Allergies, Adverse [...] THAN, 1/2 TAB FOR 3 DAYS. PREDNISONE 37697816146 No Longer Active Austin Albarado MD Active LEVAQUIN 500 MG TAB 1 tablet by mouth daily for 10 days. LEVOFLOXACIN 45362829600 No Longer Active Austin Albarado MD Active PREDNISONE 20 MG TAB take 3 tabs daily for 3 days, 2 tabs daily for 3 days, 1 tab daily for 3 days, 1/2 tab daily for 3 days PREDNISONE 17927678949 No Longer Active Simona Galloway APRN Active ZITHROMAX 1 GM ORAL PACK DIRECTED AZITHROMYCIN 47110593488 No Longer Active Simona Galloway APRN Active PREDNISONE 20 MG TAB 2 tabs daily for 4 days, 1 tab daily for 4 days, 1/2 tab daily for 4 days PREDNISONE 14680087731 No Longer Active Austin Albarado MD Active LEVAQUIN 500 MG TAB 1 tablet by mouth daily LEVOFLOXACIN 71508993298 No Longer Active Austin Albarado MD Active PREDNISONE 20 MG TAB take 3 tabs daily for 3 days, 2 tabs daily for 3 days, 1 tab daily for 3 days, 1/2 tab daily for 3 days PREDNISONE 45725686575 No Longer Active Austin Albarado MD Active DOXYCYCLINE HYCLATE 100 MG CAP 1 cap by mouth twice daily DOXYCYCLINE HYCLATE 05863022362 No Longer Active Joshllaftab Modi APRN Active ALBUTEROL SULFATE (2.5 MG/3ML) 0.083% NEBU nebulize 1 vial q 4-6 hours prn shortness of breath ALBUTEROL SULFATE 37014643291 No Longer Active Jillina Ly BOWEN Active TORSEMIDE 20 MG TABS 1 TAB PO BID TORSEMIDE 78221397928 No Longer Active Jillina Fraganga BOWEN Active PREDNISONE 20 MG TAB 2 tabs daily for 3 days, 1 tab daily for 3 days, 1/2 tab daily for 2 days PREDNISONE 39851505333 No Longer Active Austin Albarado MD Active LEVOFLOXACIN 500 MG ORAL TABS take 1 tab po qday LEVOFLOXACIN 03807310007 No Longer Active Austin Albarado MD Active PREDNISONE 20 MG TAB 2 tablets today, then 1 tablet by mouth days 2-5 PREDNISONE 73183311200 No Longer Active Austin Albarado MD Active AZITHROMYCIN 500 MG SOLR 1 po q day AZITHROMYCIN 46758675045 No Longer Active Austin Albarado MD Active KEFLEX 500 MG CAP 1 po TID x 7 days CEPHALEXIN 21614755869 No Longer Active Tristan Vaughn MD Active EQL VISION FORMULA TABS 1 TAB PO DAILY MULTIPLE VITAMINS-MINERALS 07013437495 No Longer Active Tristan Vaughn MD Active CHANTIX STARTING MONTH ELVIS 0.5 MG X 11 & 1 MG X 42 TABS 0.5mg daily for 3 days , then 0.5mg BID for 4 days, then 1mg BID VARENICLINE TARTRATE 67518106165 No Longer Active Tristan Vaughn MD Active LEVOTHYROXINE SODIUM 200 MCG TABS 1 TAB PO DAILY LEVOTHYROXINE SODIUM 08951416352 No Longer Active Tristan Vaughn MD Active LIOTHYRONINE SODIUM 50 MCG TABS take 1 tab po qday for hypothyroidism LIOTHYRONINE SODIUM 92008919923 No Longer Active Austin Albarado MD Active SYNTHROID 0.025 MG TAB 1 tablet by mouth daily LEVOTHYROXINE SODIUM 52058473969 No Longer Active Austin Albarado MD Active ARMOUR THYROID 120 MG TABS take 1 tab po qday for hypothyroidism THYROID 14285666636 Active Austin Albarado MD Active FLONASE 50 MCG/ACT SUSP 1 spray each nostril am and hs FLUTICASONE PROPIONATE Active Simona Galloway APRN Active ZITHROMAX 1 GM PACK DIRECTED AZITHROMYCIN 07058441316 No Longer Active Austin Albarado MD Active PREDNISONE 20 MG TAB 2 tabs daily for 3 days, 1 tab daily for 3 days, 1/2 tab daily for 2 days PREDNISONE 54060598846 No Longer Active Austin Albarado MD Active ZITHROMAX 250 MG TAB 2 po today, then 1 po q days 2-5 AZITHROMYCIN 33104784071 No Longer Active Austin Albarado MD Active NYSTATIN-TRIAMCINOLONE 386930-4.1 UNIT/GM-% OINT Apply to affected area TID NYSTATIN-TRIAMCINOLONE 44764434284 Active Austin Albarado MD Active IPRATROPIUM-ALBUTEROL 0.5-2.5 (3) MG/3ML SOLN 1 VIAL NEB Q 6 HRS PRN IPRATROPIUM-ALBUTEROL 35149958081 Active Austin Albarado MD Active PROAIR HFA 108 (90 BASE) MCG/ACT AERS take 1-2 puffs q4hrs prn cough/ SOB ALBUTEROL SULFATE 12933165593 Active Austin Albarado MD Active ADVAIR DISKUS 500-50 MCG/DOSE AEPB ONE INH BID FLUTICASONE- SALMETEROL 95672171218 Active Austin Albarado MD Active ZITHROMAX 1 GM PACK DIRECTED ZITHROMAX 1 GM PACK 233210 AZITHROMYCIN Inactive SYNTHROID 0.025 MG TAB 1 tablet by mouth daily SYNTHROID 0.025 MG TAB 922169 LEVOTHYROXINE SODIUM Inactive LIOTHYRONINE SODIUM 50 MCG TABS take 1 tab po qday for hypothyroidism LIOTHYRONINE SODIUM 50 MCG TABS 568977 LIOTHYRONINE SODIUM Inactive LEVOTHYROXINE SODIUM 200 MCG TABS 1 TAB PO DAILY LEVOTHYROXINE SODIUM 200 MCG TABS 751552 LEVOTHYROXINE SODIUM Inactive CHANTIX STARTING MONTH ELVIS [...] po q day AZITHROMYCIN 500 MG SOLR 56875448902 AZITHROMYCIN Inactive PREDNISONE 20 MG TAB 2 tablets today, then 1 tablet by mouth days 2-5 PREDNISONE 20 MG TAB 000446 PREDNISONE Inactive TORSEMIDE 20 MG TABS 1 TAB PO BID TORSEMIDE 20 MG TABS 055015 TORSEMIDE Inactive ALBUTEROL SULFATE (2.5 MG/3ML) 0.083% NEBU nebulize 1 vial q 4-6 hours prn shortness of breath ALBUTEROL SULFATE (2.5 MG/3ML) 0.083% NEBU 441761 ALBUTEROL SULFATE Inactive LEVAQUIN 500 MG TAB 1 tablet by mouth daily LEVAQUIN 500 MG TAB 873343 LEVOFLOXACIN Inactive PREDNISONE 20 MG TAB 2 tabs daily for 4 days, 1 tab daily for 4 days, 1/2 tab daily for 4 days PREDNISONE 20 MG TAB 189496 PREDNISONE Inactive ZITHROMAX 1 GM ORAL PACK DIRECTED ZITHROMAX 1 GM ORAL PACK 481109 AZITHROMYCIN Inactive LEVAQUIN 500 MG TAB 1 tablet by mouth daily for 10 days. LEVAQUIN 500 MG TAB 426404 LEVOFLOXACIN Inactive PREDNISONE 20 MG ORAL TABS 3 TABS PO FOR 3 DAYS,THAN 2 TABS FOR 3 DAYS THAN, 1 TAB FOR 3 DAYS THAN, 1/2 TAB FOR 3 DAYS. PREDNISONE 20 MG ORAL TABS 803992 PREDNISONE Inactive ZITHROMAX 250 MG TAB 2 po today, then 1 po q days 2-5 ZITHROMAX 250 MG TAB 6648107 AZITHROMYCIN Inactive PREDNISONE 20 MG TAB 2 tabs daily for 3 days, 1 tab daily for 3 days, 1/2 tab daily for 2 days PREDNISONE 20 MG TAB 207288 PREDNISONE Inactive KEFLEX 500 MG CAP 1 po TID x 7 days KEFLEX 500 MG CAP 783809 CEPHALEXIN Inactive LEVOFLOXACIN 500 MG ORAL TABS take 1 tab po qday LEVOFLOXACIN 500 MG ORAL TABS 500782 LEVOFLOXACIN Inactive PREDNISONE 20 MG TAB 2 tabs daily for 3 days, 1 tab daily for 3 days, 1/2 tab daily for 2 days PREDNISONE 20 MG TAB 284645 PREDNISONE Inactive DOXYCYCLINE HYCLATE 100 MG CAP 1 cap by mouth twice daily DOXYCYCLINE HYCLATE 100 MG CAP 9361163 DOXYCYCLINE HYCLATE Inactive PREDNISONE 20 MG TAB take 3 tabs daily for 3 days, 2 tabs daily for 3 days, 1 tab daily for 3 days, 1/2 tab daily for 3 days PREDNISONE 20 MG TAB 704747 PREDNISONE Inactive PREDNISONE 20 MG TAB take 3 tabs daily for 3 days, 2 tabs daily for 3 days, 1 tab daily for 3 days, 1/2 tab daily for 3 days PREDNISONE 20 MG TAB 816206 PREDNISONE Inactive Advance Directives Directive Description Start [...] E&M - 3141-9 235 [lb_av] Weight Measured Diagnostic Results Date Name Value Unit Range Description Lab Report: CBC W/DIFF, Comp. Metabolic Panel, B-Type Natriuretic Peptid ... - Chemistry sodium, serum 140 mmol/L 288-741 6126/03/09 potassium, serum 4.9 mmol/L 3.5-5.2 chloride, serum [...] ... - Chemistry cholesterol, serum 136 mg/dL 508-590 9657/10/06 triglyceride, serum, fasting 30 mg/dL 30-200 HDL cholesterol, serum 57 mg/dL 32-96 LDL cholesterol, serum 73 mg/dL 0-130 prostate specific antigen 1.45 ng/mL 0.00-4.00 thyroxine, serum, free 0.80 ng/dL 0.76-1.46 TSH 14.03 m[iU]/mL 0.36-3.74 Encounters Code Encounter Date Provider Facility CPT-55996 Level 4 Est. Patient 20:09:43 WHOLESALER Austin Albarado MD [facility] CPT-73697 Level 4 Est. Patient 21:00:28 CDT Austin Albarado MD [facility] CPT-79347 Level 4 Est. Patient 10:03:37 CDT Austin Albarado MD [facility] CPT-48503 Level 3 Est. Patient 10:50:28 WHOLESALER Austin Albarado MD [facility] CPT-11503 Level 4 Est. Patient 21:31:41 WHOLESALER Austin Albarado MD [facility] CPT-31903 Level 3 Est. Patient 16:22:54 WHOLESALER Jann Law DO [facility] CPT-35905 Level 3 Est. Patient 11:04:53 WHOLESALER Tristan Vaughn MD [facility] CPT-55803 Level 4 Est. Patient 09:50:59 CDT Austin Albarado MD [facility] CPT-53741 Level 4 Est. Patient 09:29:00 CDT Austin Albarado MD [facility] CPT-26516 Level 4 Est. Patient 14:23:07 CDT Austin Albarado MD [facility] CPT-46349 Level 4 Est. Patient 14:27:26 CDT Austin Albarado MD [facility] CPT-97653 Level 4 Est. Patient 12:51:43 WHOLESALER Austin Albarado MD [facility] CPT-21162 Level 3 New Patient 14:17:38 WHOLESALER Austin Albarado MD [facility] CPT-68067 Level 3 New Patient 11:28:18 WHOLESALER Austin Albarado MD [facility] Procedures Code Procedure Name Date Entry Date Standard Description CPT-10856 Chest 2V Frontal and Lat 15:00:00 WHOLESALER CPT-23892 Breathing Tx 14:49:25 WHOLESALER CPT-78704 Fluzone High Dose 15:08:41 WHOLESALER CPT-42823 Immunization Single Admin 15:08:41 WHOLESALER CPT-02967 Fluzone High Dose 17:31:19 CDT CPT-11982 Administration single or combination vaccine inc oral 17 :31:19 CDT CPT-62621 Venipuncture Draw Fee 11:03:05 CDT CPT-TCMM Transitional Care Mgmt-Moderate 16:32:35 CDT CPT-65148 Chest 2V Frontal and Lat 11:51:09 CDT CPT-G0008 Administration of Influenza Virus Vaccine 15:09:08 CDT CPT-41677 Fluzone High-Dose Intramuscular Suspension 15:09:08 CDT CPT-10221 Administration single or combination vaccine inc oral 17 :07:02 WHOLESALER CPT-69195 Influenza High Dose age 65+ 17:07:02 WHOLESALER
--- OUTSIDE RECORDS SUMMARY | 2017-02-27 22:17 | XMS REPORT | Clinical Summary ---
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 Tracie Arrington [employer] Chronic airway obstruction, not elsewhere classified [facility] of [facility] Family history of ischemic heart disease CAD 414.00 [facility] Coronary atherosclerosis of unspecified type of vessel, pechanga or graft Peripheral edema 782.3 Active Austin Albarado MD Edema Shortness of breath 786.05 Active Simona Galloway [employer] Shortness of breath Hypotension 458.9 Active Simona Galloway APRN Hypotension, unspecified Shingles 053.9 Active Simona Galloway APRN Herpes zoster without mention of complication Arthritis, generalized 716.99 Active Austin Albarado MD Arthropathy unspecified, involving multiple sites U R I ICD-465.9 Inactive Austin Albarado MD 06/13 Bronchitis-Acute ICD-466.0 Inactive Austin Albarado MD Medication List Medication Instructions Start Date Stop Date Generic Name ND Status Provider Patient Instruction ACYCLOVIR 400 MG TABS 1 pill three times daily ACYCLOVIR 98759225232 Active Austin Albarado MD Active ALBUTEROL SULFATE 0.083 % NEBU SOLN one vial per nebulizer every 4 hours as needed Dx. J44.1 ALBUTEROL SULFATE 61351602897 Active Austin Albarado MD Active IPRATROPIUM BROMIDE 0.02 % INH SOLN 1 q 6 hr PRN Dx: J44.1 IPRATROPIUM BROMIDE 66964679500 Active Nella José LPN Active PROAIR HFA 108 (90 BASE) MCG/ACT AERS take 1-2 puffs q 4-6 hrs prn cough/ SOB ALBUTEROL SULFATE 46531724365 Active Nella José LPN Active IPRATROPIUM-ALBUTEROL 0.5-2.5 (3) MG/3ML SOLN 1 VIAL NEB Q 4-6 HRS PRN 04/18 IPRATROPIUM-ALBUTEROL 78521996775 No Longer Active Austin Albarado MD Active ATIVAN 0.5 MG TAB 1 po QD PRN Anxiety LORAZEPAM 13769573865 Active Simona Galloway APRN Active PREDNISONE 20 MG ORAL TABS 3 tabs po for 3 days than,2 tabs po for 3 days,1 tab po for 3 days, 1/2 tab po for 3 days. PREDNISONE 32670870993 No Longer Active Simona Galloway APRN Active LEVAQUIN 500 MG TAB 1 tablet by mouth daily LEVOFLOXACIN 20982326868 No Longer Active Simona Galloway APRN Active PREDNISONE 20 MG TAB take 3 tabs daily for 3 days, 2 tabs daily for 3 days, 1 tab daily for 3 days, 1/2 tab daily for 3 days PREDNISONE 00026724370 No Longer Active Austin Albarado MD Active LEVAQUIN 500 MG TAB 1 tablet by mouth daily LEVOFLOXACIN 94296924764 No Longer Active Madhavi Raida Active FUROSEMIDE 20 MG TABS take 1 tab po BID for swelling FUROSEMIDE 39484546440 Active Austin Albarado MD Active AMOXICILLIN 500 MG ORAL TABS Take one by mouth 3 times daily, morning, afternoon and evening.] AMOXICILLIN 45747582693 No Longer Active Garcia Stroud MD Active PREDNISONE 20 MG ORAL TABS 3 daily for 3 days than, 2 tabs daily for 3 days than, 2 tabs daily for 3 days than, 1 tab daily for 3 days than 1/2 tab daily for 3 days. PREDNISONE 20655783017 No Longer Active Tracie Arrington APRN Active FLUTICASONE PROPIONATE 50 MCG/ACT SUSP 1 to 2 sprays each nostril daily 08/21 FLUTICASONE PROPIONATE 63272424000 Active Simona Galloway APRN Active PREDNISONE 10 MG TAB take 1 tab po qday for severe COPD PREDNISONE 61833010322 Active Austin Albarado MD Active PREDNISONE 20 MG ORAL TABS 3 TABS PO FOR 3 DAYS,THAN 2 TABS FOR 3 DAYS THAN, 1 TAB FOR 3 DAYS THAN, 1/2 TAB FOR 3 DAYS. PREDNISONE 58717423159 No Longer Active Austin Albarado MD Active LEVAQUIN 500 MG TAB 1 tablet by mouth daily for 10 days. LEVOFLOXACIN 49504416805 No Longer Active Austin Albarado MD Active PREDNISONE 20 MG TAB take 3 tabs daily for 3 days, 2 tabs daily for 3 days, 1 tab daily for 3 days, 1/2 tab daily for 3 days PREDNISONE 95714419877 No Longer Active Simona Galloway APRN Active ZITHROMAX 1 GM ORAL PACK DIRECTED AZITHROMYCIN 17870813136 No Longer Active Simona Galloway APRN Active PREDNISONE 20 MG TAB 2 tabs daily for 4 days, 1 tab daily for 4 days, 1/2 tab daily for 4 days PREDNISONE 91201835845 No Longer Active Austin Albarado MD Active LEVAQUIN 500 MG TAB 1 tablet by mouth daily LEVOFLOXACIN 46221402626 No Longer Active Austin Albarado MD Active PREDNISONE 20 MG TAB take 3 tabs daily for 3 days, 2 tabs daily for 3 days, 1 tab daily for 3 days, 1/2 tab daily for 3 days PREDNISONE 17221920266 No Longer Active Austin Albarado MD Active DOXYCYCLINE HYCLATE 100 MG CAP 1 cap by mouth twice daily DOXYCYCLINE HYCLATE 33647617731 No Longer Active Esperanza Modi APRN Active ALBUTEROL SULFATE (2.5 MG/3ML) 0.083% NEBU nebulize 1 vial q 4-6 hours prn shortness of breath ALBUTEROL SULFATE 10465588692 No Longer Active Esperanza Modi APRN Active TORSEMIDE 20 MG TABS 1 TAB PO BID TORSEMIDE 92886941650 No Longer Active Jillina Ly [employer] Active PREDNISONE 20 MG TAB 2 tabs daily for 3 days, 1 tab daily for 3 days, 1/2 tab daily for 2 days PREDNISONE 17477472817 No Longer Active Austin Albarado MD Active LEVOFLOXACIN 500 MG ORAL TABS take 1 tab po qday LEVOFLOXACIN 93853626592 No Longer Active Austin Albarado MD Active PREDNISONE 20 MG TAB 2 tablets today, then 1 tablet by mouth days 2-5 PREDNISONE 87133888210 No Longer Active Austin Albarado MD Active AZITHROMYCIN 500 MG SOLR 1 po q day AZITHROMYCIN 93036536393 No Longer Active Austin Albarado MD Active KEFLEX 500 MG CAP 1 po TID x 7 days CEPHALEXIN 15748020565 No Longer Active Tristan Vaughn MD Active EQL VISION FORMULA TABS 1 TAB PO DAILY MULTIPLE VITAMINS-MINERALS 63119592060 No Longer Active Tristan Vaughn MD Active CHANTIX STARTING MONTH ELVIS 0.5 MG X 11 & 1 MG X 42 TABS 0.5mg daily for 3 days , then 0.5mg BID for 4 days, then 1mg BID VARENICLINE TARTRATE 17041433331 No Longer Active Tristan Vaughn MD Active LEVOTHYROXINE SODIUM 200 MCG TABS 1 TAB PO DAILY LEVOTHYROXINE SODIUM 81841086810 No Longer Active Tristan Vaughn MD Active LIOTHYRONINE SODIUM 50 MCG TABS take 1 tab po qday for hypothyroidism LIOTHYRONINE SODIUM 95203741661 No Longer Active Austin Albarado MD Active SYNTHROID 0.025 MG TAB 1 tablet by mouth daily LEVOTHYROXINE SODIUM 02600078710 No Longer Active Austin Albarado MD Active ARMOUR THYROID 120 MG TABS take 1 tab po qday for hypothyroidism THYROID 08604477799 Active Austin Albarado MD Active FLONASE 50 MCG/ACT SUSP 1 spray each nostril am and hs FLUTICASONE PROPIONATE Active Simona Galloway APRN Active ZITHROMAX 1 GM PACK DIRECTED AZITHROMYCIN 60899596526 No Longer Active Austin Albarado MD Active PREDNISONE 20 MG TAB 2 tabs daily for 3 days, 1 tab daily for 3 days, 1/2 tab daily for 2 days PREDNISONE 04602597277 No Longer Active Austin Albarado MD Active ZITHROMAX 250 MG TAB 2 po today, then 1 po q days 2-5 AZITHROMYCIN 76347619027 No Longer Active Austin Albarado MD Active NYSTATIN-TRIAMCINOLONE 673606-8.1 UNIT/GM-% OINT Apply to affected area TID NYSTATIN-TRIAMCINOLONE 31974954730 Active Austin Albarado MD Active ADVAIR DISKUS 500-50 MCG/DOSE AEPB ONE INH BID FLUTICASONE- SALMETEROL 20795073459 Active Austin Albarado MD Active ZITHROMAX 1 GM PACK DIRECTED ZITHROMAX 1 GM PACK 618341 AZITHROMYCIN Inactive SYNTHROID 0.025 MG TAB 1 tablet by mouth daily SYNTHROID 0.025 MG TAB 887316 LEVOTHYROXINE SODIUM Inactive LIOTHYRONINE SODIUM 50 MCG TABS take 1 tab po qday for hypothyroidism LIOTHYRONINE SODIUM 50 MCG TABS 597377 LIOTHYRONINE SODIUM Inactive LEVOTHYROXINE SODIUM 200 MCG TABS 1 TAB PO DAILY LEVOTHYROXINE SODIUM 200 MCG TABS 720561 LEVOTHYROXINE SODIUM Inactive CHANTIX STARTING MONTH ELVIS [...] po q day AZITHROMYCIN 500 MG SOLR 10890829431 AZITHROMYCIN Inactive PREDNISONE 20 MG TAB 2 tablets today, then 1 tablet by mouth days 2-5 PREDNISONE 20 MG TAB 947724 PREDNISONE Inactive TORSEMIDE 20 MG TABS 1 TAB PO BID TORSEMIDE 20 MG TABS 768551 TORSEMIDE Inactive ALBUTEROL SULFATE (2.5 MG/3ML) 0.083% NEBU nebulize 1 vial q 4-6 hours prn shortness of breath ALBUTEROL SULFATE (2.5 MG/3ML) 0.083% NEBU 286242 ALBUTEROL SULFATE Inactive LEVAQUIN 500 MG TAB 1 tablet by mouth daily LEVAQUIN 500 MG TAB 732668 LEVOFLOXACIN Inactive PREDNISONE 20 MG TAB 2 tabs daily for 4 days, 1 tab daily for 4 days, 1/2 tab daily for 4 days PREDNISONE 20 MG TAB 365324 PREDNISONE Inactive ZITHROMAX 1 GM ORAL PACK DIRECTED ZITHROMAX 1 GM ORAL PACK 847732 AZITHROMYCIN Inactive LEVAQUIN 500 MG TAB 1 tablet by mouth daily for 10 days. LEVAQUIN 500 MG TAB 189577 LEVOFLOXACIN Inactive PREDNISONE 20 MG ORAL TABS 3 TABS PO FOR 3 DAYS,THAN 2 TABS FOR 3 DAYS THAN, 1 TAB FOR 3 DAYS THAN, 1/2 TAB FOR 3 DAYS. PREDNISONE 20 MG ORAL TABS 147727 PREDNISONE Inactive PREDNISONE 20 MG ORAL TABS 3 daily for 3 days than, 2 tabs daily for 3 days than, 2 tabs daily for 3 days than, 1 tab daily for 3 days than 1/2 tab daily for 3 days. PREDNISONE 20 MG ORAL TABS 208516 PREDNISONE Inactive AMOXICILLIN 500 MG ORAL TABS Take one by mouth 3 times daily, morning, afternoon and evening.] AMOXICILLIN 500 MG ORAL TABS 802518 AMOXICILLIN Inactive LEVAQUIN 500 MG TAB 1 tablet by mouth daily LEVAQUIN 500 MG TAB 638951 LEVOFLOXACIN Inactive LEVAQUIN 500 MG TAB 1 tablet by mouth daily LEVAQUIN 500 MG TAB 310554 LEVOFLOXACIN Inactive PREDNISONE 20 MG ORAL TABS 3 tabs po for 3 days than,2 tabs po for 3 days,1 tab po for 3 days, 1/2 tab po for 3 days. PREDNISONE 20 MG ORAL TABS 310436 PREDNISONE Inactive ZITHROMAX 250 MG TAB 2 po today, then 1 po q days 2-5 ZITHROMAX 250 MG TAB 2630748 AZITHROMYCIN Inactive PREDNISONE 20 MG TAB 2 tabs daily for 3 days, 1 tab daily for 3 days, 1/2 tab daily for 2 days PREDNISONE 20 MG TAB 557046 PREDNISONE Inactive KEFLEX 500 MG CAP 1 po TID x 7 days KEFLEX 500 MG CAP 112366 CEPHALEXIN Inactive LEVOFLOXACIN 500 MG ORAL TABS take 1 tab po qday LEVOFLOXACIN 500 MG ORAL TABS 589524 LEVOFLOXACIN Inactive PREDNISONE 20 MG TAB 2 tabs daily for 3 days, 1 tab daily for 3 days, 1/2 tab daily for 2 days PREDNISONE 20 MG TAB 496397 PREDNISONE Inactive DOXYCYCLINE HYCLATE 100 MG CAP 1 cap by mouth twice daily DOXYCYCLINE HYCLATE 100 MG CAP 9757090 DOXYCYCLINE HYCLATE Inactive PREDNISONE 20 MG TAB take 3 tabs daily for 3 days, 2 tabs daily for 3 days, 1 tab daily for 3 days, 1/2 tab daily for 3 days PREDNISONE 20 MG TAB 684013 PREDNISONE Inactive PREDNISONE 20 MG TAB take 3 tabs daily for 3 days, 2 tabs daily for 3 days, 1 tab daily for 3 days, 1/2 tab daily for 3 days PREDNISONE 20 MG TAB 078344 PREDNISONE Inactive PREDNISONE 20 MG TAB take 3 tabs daily for 3 days, 2 tabs daily for 3 days, 1 tab daily for 3 days, 1/2 tab daily for 3 days PREDNISONE 20 MG TAB 719116 PREDNISONE Inactive Advance Directives Directive Description Start [...] Peptide - Chemistry sodium, serum 140 mmol/L 024-282 5353/02/09 carbon dioxide, venous blood 39.2 mmol/L 21.0-32.0 [...] 0.00-1.00 Encounters Code Encounter Date Provider Facility CPT-98544 Level 4 Est. Patient 13:31:03 CDT Austin Albarado MD [facility] CPT-86906 Level 4 Est. Patient 17:54:41 TELECOMMUNICATION OPERATOR Austin Albarado MD [facility]-87255 Level 4 Est. Patient 16:11:14 TELECOMMUNICATION OPERATOR Austin Albarado MD [facility] CPT-39352 Level 4 Est. Patient 23:08:56 CDT Austin Albarado MD [facility] CPT-63960 Level 4 Est. Patient 13:27:28 CDT Garcia Stroud MD [facility]-52148 Level 4 Est. Patient 10:51:20 CDT Austin Albarado MD [facility] CPT-08018 Level 4 Est. Patient 20:09:43 TELECOMMUNICATION OPERATOR Austin Albarado MD [facility]-91649 Level 4 Est. Patient 21:00:28 CDT Austin Albarado MD [facility] CPT-33153 Level 4 Est. Patient 10:03:37 CDT Austin Albarado MD [facility] CPT-70758 Level 3 Est. Patient 10:50:28 TELECOMMUNICATION OPERATOR Austin Albarado MD [facility] CPT-43086 Level 4 Est. Patient 21:31:41 TELECOMMUNICATION OPERATOR Austin Albarado MD [facility] CPT-42151 Level 3 Est. Patient 16:22:54 TELECOMMUNICATION OPERATOR Jann Law DO [facility] CPT-38114 Level 3 Est. Patient 11:04:53 TELECOMMUNICATION OPERATOR Tristan Vaughn MD [facility]-60458 Level 4 Est. Patient 09:50:59 CDT Austin Albarado MD [facility] CPT-43583 Level 4 Est. Patient 09:29:00 CDT Austin Albarado MD [facility]-64380 Level 4 Est. Patient 14:23:07 CDT Austin Albarado MD [facility] CPT-91219 Level 4 Est. Patient 14:27:26 CDT Austin Albarado MD [facility] CPT-78274 Level 4 Est. Patient 12:51:43 TELECOMMUNICATION OPERATOR Austin Albarado MD [facility] CPT-70260 Level 3 New Patient 14:17:38 TELECOMMUNICATION OPERATOR Austin Albarado MD [facility] CPT-22256 Level 3 New Patient 11:28:18 TELECOMMUNICATION OPERATOR Austin Albarado MD [facility] Procedures Code Procedure Name Date Entry Date Standard Description CPT-TCMM Transitional Care Mgmt-Moderate 14:53:36 TELECOMMUNICATION OPERATOR CPT-72184 No Charge Offi Visit 10:19:33 TELECOMMUNICATION OPERATOR CPT-00937 Chest 2V Frontal and Lat - XRAY USE ONLY 15:01:41 TELECOMMUNICATION OPERATOR CPT-05403 First Vx - Ix admin for Medicare patients 16:00:49 CDT CPT-61202 Fluzone High-Dose Intramuscular Suspension 16:00:49 CDT CPT-G0009 Administration of Pneumococcal Vaccine 13:25:27 CDT CPT-88481 Prevnar 13 Intramuscular Suspension 13:25:27 CDT 09/26 CPT-G0438 Initial Annual Wellness Exam 11:28:26 CDT CPT-88545 Chest 2V Frontal and Lat 15:00:00 TELECOMMUNICATION OPERATOR CPT-56743 Breathing Tx 14:49:25 TELECOMMUNICATION OPERATOR CPT-15497 Fluzone High Dose 15:08:41 TELECOMMUNICATION OPERATOR CPT-26941 Immunization Single Admin 15:08:41 TELECOMMUNICATION OPERATOR CPT-06760 Fluzone High Dose 17:31:19 CDT CPT-37770 Administration single or combination vaccine inc oral 17 :31:19 CDT CPT-48577 Venipuncture Draw Fee 11:03:05 CDT CPT-TCMM Transitional Care Mgmt-Moderate 16:32:35 CDT CPT-06637 Chest 2V Frontal and Lat 11:51:09 CDT CPT-G0008 Administration of Influenza Virus Vaccine 15:09:08 CDT CPT-65910 Fluzone High-Dose Intramuscular Suspension 15:09:08 CDT CPT-16637 Administration single or combination vaccine inc oral 17 :07:02 TELECOMMUNICATION OPERATOR CPT-21814 Influenza High Dose age 65+ 17:07:02 TELECOMMUNICATION OPERATOR
--- OUTSIDE RECORDS SUMMARY | 2017-02-27 22:18 | XMS REPORT | Clinical Summary ---
Author Author Admin, DILLONE Organization [employer] Address Unknown Phone Unavailable Allergies, Adverse Reactions, [...] MD Tobacco use disorder Rash 782.1 Active Trisatn Vaughn MD Rash and other nonspecific skin [...] atherosclerosis of unspecified type of vessel, [place] or graft Peripheral edema 782.3 Active Austin Albarado MD Edema U R I ICD-465.9 Inactive Austin Albarado MD 06/13 Bronchitis-Acute ICD-466.0 Inactive Austin Albarado MD Medication List Medication Instructions Start Date Stop Date Generic Name NDC Status Provider Patient Instruction FUROSEMIDE 20 MG TABS take 1 tab po BID for swelling FUROSEMIDE 41365144706 Active Austin Albarado MD Active LEVAQUIN 500 MG TAB 1 tablet by mouth daily LEVOFLOXACIN 83363391593 Active Mica Sneed Active PREDNISONE 20 MG ORAL TABS 3 tabs po for 3 days than,2 tabs po for 3 days,1 tab po for 3 days, 1/2 tab po for 3 days. PREDNISONE 65427207256 Active Madhavi Fiore Active AMOXICILLIN 500 MG ORAL TABS Take one by mouth 3 times daily, morning, afternoon and evening.] AMOXICILLIN 39403909112 No Longer Active Garcia Stroud MD Active PREDNISONE 20 MG ORAL TABS 3 daily for 3 days than, 2 tabs daily for 3 days than, 2 tabs daily for 3 days than, 1 tab daily for 3 days than 1/2 tab daily for 3 days. PREDNISONE 80842614519 No Longer Active Tracie Arrington APRN Active FLUTICASONE PROPIONATE 50 MCG/ACT SUSP 1 to 2 sprays each nostril daily 08/21 FLUTICASONE PROPIONATE 69662862323 Active Simona Galloway APRN Active PREDNISONE 10 MG TAB take 1 tab po qday for severe COPD PREDNISONE 37478573310 Active Austin Albarado MD Active PREDNISONE 20 MG ORAL TABS 3 TABS PO FOR 3 DAYS,THAN 2 TABS FOR 3 DAYS THAN, 1 TAB FOR 3 DAYS THAN, 1/2 TAB FOR 3 DAYS. PREDNISONE 69427517399 No Longer Active Austin Albarado MD Active LEVAQUIN 500 MG TAB 1 tablet by mouth daily for 10 days. LEVOFLOXACIN 40444304517 No Longer Active Austin Albarado MD Active PREDNISONE 20 MG TAB take 3 tabs daily for 3 days, 2 tabs daily for 3 days, 1 tab daily for 3 days, 1/2 tab daily for 3 days PREDNISONE 98999084594 No Longer Active Simona Galloway APRN Active ZITHROMAX 1 GM ORAL PACK DIRECTED AZITHROMYCIN 95284544970 No Longer Active Simona Galloway APRN Active PREDNISONE 20 MG TAB 2 tabs daily for 4 days, 1 tab daily for 4 days, 1/2 tab daily for 4 days PREDNISONE 53744406036 No Longer Active Austin Albarado MD Active LEVAQUIN 500 MG TAB 1 tablet by mouth daily LEVOFLOXACIN 47090338461 No Longer Active Austin Albarado MD Active PREDNISONE 20 MG TAB take 3 tabs daily for 3 days, 2 tabs daily for 3 days, 1 tab daily for 3 days, 1/2 tab daily for 3 days PREDNISONE 28983442655 No Longer Active Austin Albarado MD Active DOXYCYCLINE HYCLATE 100 MG CAP 1 cap by mouth twice daily DOXYCYCLINE HYCLATE 86018547676 No Longer Active Esperanza Modi APRN Active ALBUTEROL SULFATE (2.5 MG/3ML) 0.083% NEBU nebulize 1 vial q 4-6 hours prn shortness of breath ALBUTEROL SULFATE 66716005035 No Longer Active Esperanza Modi APRN Active TORSEMIDE 20 MG TABS 1 TAB PO BID TORSEMIDE 34807575114 No Longer Active Jillaftab Modi ONCOLOGY PHYSICIAN Active PREDNISONE 20 MG TAB 2 tabs daily for 3 days, 1 tab daily for 3 days, 1/2 tab daily for 2 days PREDNISONE 49954549647 No Longer Active Austin Albarado MD Active LEVOFLOXACIN 500 MG ORAL TABS take 1 tab po qday LEVOFLOXACIN 19216807670 No Longer Active Austin Albarado MD Active PREDNISONE 20 MG TAB 2 tablets today, then 1 tablet by mouth days 2-5 PREDNISONE 17482617225 No Longer Active Austin Albarado MD Active AZITHROMYCIN 500 MG SOLR 1 po q day AZITHROMYCIN 83150451631 No Longer Active Austin Albarado MD Active KEFLEX 500 MG CAP 1 po TID x 7 days CEPHALEXIN 81652318589 No Longer Active Tristan Vaughn MD Active EQL VISION FORMULA TABS 1 TAB PO DAILY MULTIPLE VITAMINS-MINERALS 28207767539 No Longer Active Tristan Vaughn MD Active CHANTIX STARTING MONTH LEVIS 0.5 MG X 11 & 1 MG X 42 TABS 0.5mg daily for 3 days , then 0.5mg BID for 4 days, then 1mg BID VARENICLINE TARTRATE 50000728271 No Longer Active Tristan Vaughn MD Active LEVOTHYROXINE SODIUM 200 MCG TABS 1 TAB PO DAILY LEVOTHYROXINE SODIUM 20737966502 No Longer Active Tristan Vaughn MD Active LIOTHYRONINE SODIUM 50 MCG TABS take 1 tab po qday for hypothyroidism LIOTHYRONINE SODIUM 36132655858 No Longer Active Austin Albarado MD Active SYNTHROID 0.025 MG TAB 1 tablet by mouth daily LEVOTHYROXINE SODIUM 76668520661 No Longer Active Austin Albarado MD Active ARMOUR THYROID 120 MG TABS take 1 tab po qday for hypothyroidism THYROID 48428237640 Active Austin Albarado MD Active FLONASE 50 MCG/ACT SUSP 1 spray each nostril am and hs FLUTICASONE PROPIONATE Active Simona Galloway APRN Active ZITHROMAX 1 GM PACK DIRECTED AZITHROMYCIN 43001716908 No Longer Active Austin Albarado MD Active PREDNISONE 20 MG TAB 2 tabs daily for 3 days, 1 tab daily for 3 days, 1/2 tab daily for 2 days PREDNISONE 68498179212 No Longer Active Austin Albarado MD Active ZITHROMAX 250 MG TAB 2 po today, then 1 po q days 2-5 AZITHROMYCIN 89241427363 No Longer Active Austin Albarado MD Active NYSTATIN-TRIAMCINOLONE 045185-5.1 UNIT/GM-% OINT Apply to affected area TID NYSTATIN-TRIAMCINOLONE 04710478905 Active Austin Albarado MD Active IPRATROPIUM-ALBUTEROL 0.5-2.5 (3) MG/3ML SOLN 1 VIAL NEB Q 6 HRS PRN IPRATROPIUM-ALBUTEROL 63780042879 Active Simona Galloway APRN Active PROAIR HFA 108 (90 BASE) MCG/ACT AERS take 1-2 puffs q4hrs prn cough/ SOB ALBUTEROL SULFATE 29558371886 Active Austin Albarado MD Active ADVAIR DISKUS 500-50 MCG/DOSE AEPB ONE INH BID FLUTICASONE- SALMETEROL 08419095774 Active Austin Albarado MD Active ZITHROMAX 1 GM PACK DIRECTED ZITHROMAX 1 GM PACK 623672 AZITHROMYCIN Inactive SYNTHROID 0.025 MG TAB 1 tablet by mouth daily SYNTHROID 0.025 MG TAB 263828 LEVOTHYROXINE SODIUM Inactive LIOTHYRONINE SODIUM 50 MCG TABS take 1 tab po qday for hypothyroidism LIOTHYRONINE SODIUM 50 MCG TABS 284827 LIOTHYRONINE SODIUM Inactive LEVOTHYROXINE SODIUM 200 MCG TABS 1 TAB PO DAILY LEVOTHYROXINE SODIUM 200 MCG TABS 839358 LEVOTHYROXINE SODIUM Inactive CHANTIX STARTING MONTH ELVIS [...] po q day AZITHROMYCIN 500 MG SOLR 67096539472 AZITHROMYCIN Inactive PREDNISONE 20 MG TAB 2 tablets today, then 1 tablet by mouth days 2-5 PREDNISONE 20 MG TAB 037190 PREDNISONE Inactive TORSEMIDE 20 MG TABS 1 TAB PO BID TORSEMIDE 20 MG TABS 728427 TORSEMIDE Inactive ALBUTEROL SULFATE (2.5 MG/3ML) 0.083% NEBU nebulize 1 vial q 4-6 hours prn shortness of breath ALBUTEROL SULFATE (2.5 MG/3ML) 0.083% NEBU 326074 ALBUTEROL SULFATE Inactive LEVAQUIN 500 MG TAB 1 tablet by mouth daily LEVAQUIN 500 MG TAB 163307 LEVOFLOXACIN Inactive PREDNISONE 20 MG TAB 2 tabs daily for 4 days, 1 tab daily for 4 days, 1/2 tab daily for 4 days PREDNISONE 20 MG TAB 570867 PREDNISONE Inactive ZITHROMAX 1 GM ORAL PACK DIRECTED ZITHROMAX 1 GM ORAL PACK 385313 AZITHROMYCIN Inactive LEVAQUIN 500 MG TAB 1 tablet by mouth daily for 10 days. LEVAQUIN 500 MG TAB 097816 LEVOFLOXACIN Inactive PREDNISONE 20 MG ORAL TABS 3 TABS PO FOR 3 DAYS,THAN 2 TABS FOR 3 DAYS THAN, 1 TAB FOR 3 DAYS THAN, 1/2 TAB FOR 3 DAYS. PREDNISONE 20 MG ORAL TABS 811156 PREDNISONE Inactive PREDNISONE 20 MG ORAL TABS 3 daily for 3 days than, 2 tabs daily for 3 days than, 2 tabs daily for 3 days than, 1 tab daily for 3 days than 1/2 tab daily for 3 days. PREDNISONE 20 MG ORAL TABS 380591 PREDNISONE Inactive AMOXICILLIN 500 MG ORAL TABS Take one by mouth 3 times daily, morning, afternoon and evening.] AMOXICILLIN 500 MG ORAL TABS 591498 AMOXICILLIN Inactive ZITHROMAX 250 MG TAB 2 po today, then 1 po q days 2-5 ZITHROMAX 250 MG TAB 5385111 AZITHROMYCIN Inactive PREDNISONE 20 MG TAB 2 tabs daily for 3 days, 1 tab daily for 3 days, 1/2 tab daily for 2 days PREDNISONE 20 MG TAB 355044 PREDNISONE Inactive KEFLEX 500 MG CAP 1 po TID x 7 days KEFLEX 500 MG CAP 011494 CEPHALEXIN Inactive LEVOFLOXACIN 500 MG ORAL TABS take 1 tab po qday LEVOFLOXACIN 500 MG ORAL TABS 564620 LEVOFLOXACIN Inactive PREDNISONE 20 MG TAB 2 tabs daily for 3 days, 1 tab daily for 3 days, 1/2 tab daily for 2 days PREDNISONE 20 MG TAB 405375 PREDNISONE Inactive DOXYCYCLINE HYCLATE 100 MG CAP 1 cap by mouth twice daily DOXYCYCLINE HYCLATE 100 MG CAP 4961169 DOXYCYCLINE HYCLATE Inactive PREDNISONE 20 MG TAB take 3 tabs daily for 3 days, 2 tabs daily for 3 days, 1 tab daily for 3 days, 1/2 tab daily for 3 days PREDNISONE 20 MG TAB 447206 PREDNISONE Inactive PREDNISONE 20 MG TAB take 3 tabs daily for 3 days, 2 tabs daily for 3 days, 1 tab daily for 3 days, 1/2 tab daily for 3 days PREDNISONE 20 MG TAB 086058 PREDNISONE Inactive Advance Directives Directive Description Start [...] Comp. Metabolic Panel, CBC, ... - Chemistry blood glucose 62 mg/dL 65-110 urea nitrogen, blood 24 mg/dL 7-18 creatinine, serum 1.09 mg/dL 0.55-1.30 alanine aminotransferase (SGPT), serum 44 U/L 12-78 aspartate aminotransferase (SGOT), serum 25 U/L 15-37 calcium, serum 8.7 mg/dL 8.5-10.1 bilirubin, serum, total 0.50 mg/dL 0.00-1.00 cholesterol, serum 189 mg/dL 153-635 6487/04/06 triglyceride, serum, fasting 117 mg/dL 30-200 HDL cholesterol, serum 70 mg/dL 32-96 LDL cholesterol, serum 96 mg/dL 0-130 chloride, serum 100 mmol/L 98-107 potassium, serum 4.9 mmol/L 3.5-5.2 carbon dioxide, venous blood 36.3 mmol/L 21.0-32.0 sodium, serum 140 mmol/L 029-086 8823/04/06 TSH 43.52 m[iU]/mL 0.36-3.74 Lab Report: Thyroid Stimulating Hormone [...] [phone] Encounters Code Encounter Date Provider Facility CPT-93378 Level 4 Est. Patient 16:11:14 [employer]NA[employer] Austin Albarado MD [facility] CPT-03187 Level 4 Est. Patient 23:08:56 CDT Austin Albarado MD [facility] CPT-80683 Level 4 Est. Patient 13:27:28 CDT Garcia Stroud MD [facility] CPT-06450 Level 4 Est. Patient 10:51:20 CDT Austin Albarado MD [facility] CPT-61032 Level 4 Est. Patient 20:09:43 [employer]NA[employer] Austin Albarado MD [facility] CPT-81849 Level 4 Est. Patient 21:00:28 CDT Austin Albarado MD [facility] CPT-26610 Level 4 Est. Patient 10:03:37 CDT Austin Albarado MD [facility] CPT-18553 Level 3 Est. 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 Patient 21:31:41 [employer]NA[employer] Austin Albarado MD [facility] CPT-61643 Level 3 Est. Patient 16:22:54 [employer] Jann Law DO [facility] CPT-30787 Level 3 Est. Patient 11:04:53 [employer]NA[employer] Tristan Vaugnh MD [facility] CPT-48259 Level 4 Est. Patient 09:50:59 CDT Austin Albarado MD [facility] CPT-72562 Level 4 Est. Patient 09:29:00 CDT Austin Albarado MD [facility] CPT-48261 Level 4 Est. Patient 14:23:07 CDT Austin Albarado MD [facility] CPT-49262 Level 4 Est. Patient 14:27:26 CDT Austin Albarado MD [facility] CPT-60506 Level 4 Est. 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[employer] Austin Albarado MD [facility] CPT-73182 Level 3 New Patient 11:28:18 [employer]NAGER [employer] Austin Albarado MD [facility] Procedures Code Procedure Name Date Entry Date Standard Description CPT-00187 First Vx - Ix admin for Medicare patients 16:00:49 CDT CPT-14771 Fluzone High-Dose Intramuscular Suspension 16:00:49 CDT CPT-G0009 Administration of Pneumococcal Vaccine 13:25:27 CDT CPT-39469 Prevnar 13 Intramuscular Suspension 13:25:27 CDT 09/26 CPT-G0438 Initial Annual Wellness Exam 11:28:26 CDT CPT-15306 Chest 2V Frontal and Lat 15:00:00 [employer] CPT-82794 Breathing Tx 14:49:25 [employer]NA[employer] CPT-47799 Fluzone High Dose 15:08:41 [employer] CPT-73411 Immunization Single Admin 15:08:41 [employer] CPT-23632 Fluzone High Dose 17:31:19 CDT CPT-16404 Administration single or combination vaccine inc oral 17 :31:19 CDT CPT-46106 Venipuncture Draw Fee 11:03:05 CDT CPT-TCMM Transitional Care Mgmt-Moderate 16:32:35 CDT CPT-45661 Chest 2V Frontal and Lat 11:51:09 CDT CPT-G0008 Administration of Influenza Virus Vaccine 15:09:08 CDT CPT-44589 Fluzone High-Dose Intramuscular Suspension 15:09:08 CDT CPT-87696 Administration single or combination vaccine inc oral 17 :07:02 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
--- OUTSIDE RECORDS SUMMARY | 2017-02-27 22:18 | XMS REPORT | Clinical Summary ---
Author Author Admin, LEE Organization [facility] Address Unknown Phone Unavailable Allergies, Adverse [...] by mouth daily for 10 days. LEVOFLOXACIN 72136101478 Active Simona Galloway APRN Active PREDNISONE 20 MG TAB take 3 tabs daily for 3 days, 2 tabs daily for 3 days, 1 tab daily for 3 days, 1/2 tab daily for 3 days PREDNISONE 96235556532 No Longer Active Simona Galloway APRN Active ZITHROMAX 1 GM ORAL PACK DIRECTED AZITHROMYCIN 32583419611 No Longer Active Simona Galloway APRN Active PREDNISONE 20 MG ORAL TABS 3 TABS PO FOR 3 DAYS,THAN 2 TABS FOR 3 DAYS THAN, 1 TAB FOR 3 DAYS THAN, 1/2 TAB FOR 3 DAYS. PREDNISONE 16662713365 Active Madhavi Fiore Active PREDNISONE 20 MG TAB 2 tabs daily for 4 days, 1 tab daily for 4 days, 1/2 tab daily for 4 days PREDNISONE 50903355932 No Longer Active Austin Albarado MD Active LEVAQUIN 500 MG TAB 1 tablet by mouth daily LEVOFLOXACIN 13706345948 No Longer Active Austin Albarado MD Active PREDNISONE 20 MG TAB take 3 tabs daily for 3 days, 2 tabs daily for 3 days, 1 tab daily for 3 days, 1/2 tab daily for 3 days PREDNISONE 96988257761 No Longer Active Austin Albarado MD Active DOXYCYCLINE HYCLATE 100 MG CAP 1 cap by mouth twice daily DOXYCYCLINE HYCLATE 31393892884 No Longer Active Fiorina Ly CALL SPECIALIST Active ALBUTEROL SULFATE (2.5 MG/3ML) 0.083% NEBU nebulize 1 vial q 4-6 hours prn shortness of breath ALBUTEROL SULFATE 19022943926 No Longer Active Jillina Ly CALL SPECIALIST Active TORSEMIDE 20 MG TABS 1 TAB PO BID TORSEMIDE 60735387029 No Longer Active 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 CALL SPECIALIST Active PREDNISONE 20 MG TAB 2 tabs daily for 3 days, 1 tab daily for 3 days, 1/2 tab daily for 2 days PREDNISONE 20447981858 No Longer Active Austin Albarado MD Active LEVOFLOXACIN 500 MG ORAL TABS take 1 tab po qday LEVOFLOXACIN 18766678396 No Longer Active Austin Albarado MD Active PREDNISONE 20 MG TAB 2 tablets today, then 1 tablet by mouth days 2-5 PREDNISONE 83005665082 No Longer Active Austin Albarado MD Active AZITHROMYCIN 500 MG SOLR 1 po q day AZITHROMYCIN 11797698647 No Longer Active Austin Albarado MD Active KEFLEX 500 MG CAP 1 po TID x 7 days CEPHALEXIN 82003980179 No Longer Active Tristan Vaughn MD Active EQL VISION FORMULA TABS 1 TAB PO DAILY MULTIPLE VITAMINS-MINERALS 26425714997 No Longer Active Tristan Vaughn MD Active CHANTIX STARTING MONTH ELVIS 0.5 MG X 11 & 1 MG X 42 TABS 0.5mg daily for 3 days , then 0.5mg BID for 4 days, then 1mg BID VARENICLINE TARTRATE 05086959559 No Longer Active Tristan Vaughn MD Active LEVOTHYROXINE SODIUM 200 MCG TABS 1 TAB PO DAILY LEVOTHYROXINE SODIUM 85431681214 No Longer Active Tristan Vaughn MD Active LIOTHYRONINE SODIUM 50 MCG TABS take 1 tab po qday for hypothyroidism LIOTHYRONINE SODIUM 17301166226 No Longer Active Austin Albarado MD Active SYNTHROID 0.025 MG TAB 1 tablet by mouth daily LEVOTHYROXINE SODIUM 57477584259 No Longer Active Austin Albarado MD Active ARMOUR THYROID 120 MG TABS take 1 tab po qday for hypothyroidism THYROID 18973772772 Active Austin Albarado MD Active FLONASE 50 MCG/ACT SUSP 1 spray each nostril am and hs FLUTICASONE PROPIONATE 48624154789 Active Austin Albarado MD Active ZITHROMAX 1 GM PACK DIRECTED AZITHROMYCIN 27699351231 No Longer Active Austin Albarado MD Active PREDNISONE 20 MG TAB 2 tabs daily for 3 days, 1 tab daily for 3 days, 1/2 tab daily for 2 days PREDNISONE 90765254143 No Longer Active Austin Albarado MD Active ZITHROMAX 250 MG TAB 2 po today, then 1 po q days 2-5 AZITHROMYCIN 77657578054 No Longer Active Austin Albarado MD Active NYSTATIN-TRIAMCINOLONE 879200-4.1 UNIT/GM-% OINT Apply to affected area TID NYSTATIN-TRIAMCINOLONE 97232660532 Active Asutin Albarado MD Active IPRATROPIUM-ALBUTEROL 0.5-2.5 (3) MG/3ML SOLN 1 VIAL NEB Q 6 HRS PRN IPRATROPIUM-ALBUTEROL 28601169541 Active Austin Albarado MD Active PROAIR HFA 108 (90 BASE) MCG/ACT AERS take 1-2 puffs q4hrs prn cough/ SOB ALBUTEROL SULFATE 04639513872 Active Austin Albarado MD Active ADVAIR DISKUS 500-50 MCG/DOSE AEPB ONE INH BID FLUTICASONE- SALMETEROL 02503985069 Active Austin Albarado MD Active ZITHROMAX 1 GM PACK DIRECTED ZITHROMAX 1 GM PACK 242224 AZITHROMYCIN Inactive SYNTHROID 0.025 MG TAB 1 tablet by mouth daily SYNTHROID 0.025 MG TAB 680707 LEVOTHYROXINE SODIUM Inactive LIOTHYRONINE SODIUM 50 MCG TABS take 1 tab po qday for hypothyroidism LIOTHYRONINE SODIUM 50 MCG TABS 902226 LIOTHYRONINE SODIUM Inactive LEVOTHYROXINE SODIUM 200 MCG TABS 1 TAB PO DAILY LEVOTHYROXINE SODIUM 200 MCG TABS 498834 LEVOTHYROXINE SODIUM Inactive CHANTIX STARTING MONTH ELVIS [...] po q day AZITHROMYCIN 500 MG SOLR 369966 AZITHROMYCIN Inactive PREDNISONE 20 MG TAB 2 tablets today, then 1 tablet by mouth days 2-5 PREDNISONE 20 MG TAB 655813 PREDNISONE Inactive TORSEMIDE 20 MG TABS 1 TAB PO BID TORSEMIDE 20 MG TABS 106194 TORSEMIDE Inactive ALBUTEROL SULFATE (2.5 MG/3ML) 0.083% NEBU nebulize 1 vial q 4-6 hours prn shortness of breath ALBUTEROL SULFATE (2.5 MG/3ML) 0.083% NEBU 475307 ALBUTEROL SULFATE Inactive LEVAQUIN 500 MG TAB 1 tablet by mouth daily LEVAQUIN 500 MG TAB 423152 LEVOFLOXACIN Inactive PREDNISONE 20 MG TAB 2 tabs daily for 4 days, 1 tab daily for 4 days, 1/2 tab daily for 4 days PREDNISONE 20 MG TAB 573942 PREDNISONE Inactive ZITHROMAX 1 GM ORAL PACK DIRECTED ZITHROMAX 1 GM ORAL PACK 900267 AZITHROMYCIN Inactive ZITHROMAX 250 MG TAB 2 po today, then 1 po q days 2-5 ZITHROMAX 250 MG TAB 2245890 AZITHROMYCIN Inactive PREDNISONE 20 MG TAB 2 tabs daily for 3 days, 1 tab daily for 3 days, 1/2 tab daily for 2 days PREDNISONE 20 MG TAB 200929 PREDNISONE Inactive KEFLEX 500 MG CAP 1 po TID x 7 days KEFLEX 500 MG CAP 601803 CEPHALEXIN Inactive LEVOFLOXACIN 500 MG ORAL TABS take 1 tab po qday LEVOFLOXACIN 500 MG ORAL TABS 671858 LEVOFLOXACIN Inactive PREDNISONE 20 MG TAB 2 tabs daily for 3 days, 1 tab daily for 3 days, 1/2 tab daily for 2 days PREDNISONE 20 MG TAB 235908 PREDNISONE Inactive DOXYCYCLINE HYCLATE 100 MG CAP 1 cap by mouth twice daily DOXYCYCLINE HYCLATE 100 MG CAP 4820767 DOXYCYCLINE HYCLATE Inactive PREDNISONE 20 MG TAB take 3 tabs daily for 3 days, 2 tabs daily for 3 days, 1 tab daily for 3 days, 1/2 tab daily for 3 days PREDNISONE 20 MG TAB 166859 PREDNISONE Inactive PREDNISONE 20 MG TAB take 3 tabs daily for 3 days, 2 tabs daily for 3 days, 1 tab daily for 3 days, 1/2 tab daily for 3 days PREDNISONE 20 MG TAB 142587 PREDNISONE Inactive Advance Directives Directive Description Start [...] ... - Chemistry sodium, serum 140 mmol/L 323-357 8673/03/09 potassium, serum 4.9 mmol/L 3.5-5.2 chloride, serum [...] Free Thyroxine (L), Thyr ... - Chemistry thyroxine, serum, free 0.80 ng/dL 0.76-1.46 TSH 14.03 m[iU]/mL 0.36-3.74 prostate specific antigen 1.45 ng/mL 0.00-4.00 LDL cholesterol, serum 73 mg/dL 0-130 HDL cholesterol, serum 57 mg/dL 32-96 triglyceride, serum, fasting 30 mg/dL 30-200 cholesterol, serum 136 mg/dL 130-200 Encounters Code Encounter Date Provider Facility CPT-10730 Level 4 Est. Patient 21:00:28 CDT Austin Albarado MD [facility] CPT-33459 Level 4 Est. Patient 10:03:37 CDT Austin Albarado MD [facility] CPT-99208 Level 3 Est. Patient 10:50:28 [employer] Austin Albarado MD [facility] CPT-85773 Level 4 Est. Patient 21:31:41 [employer] Austin Albarado MD [facility] CPT-90581 Level 3 Est. Patient 16:22:54 [employer] Jann Law DO [facility] CPT-57717 Level 3 Est. Patient 11:04:53 [employer] Tristan Vaughn MD [facility] CPT-33097 Level 4 Est. Patient 09:50:59 CDT Austin Albarado MD [facility] CPT-31540 Level 4 Est. Patient 09:29:00 CDT Austin Albarado MD [facility] CPT-37925 Level 4 Est. Patient 14:23:07 CDT Austin Albarado MD [facility] CPT-60557 Level 4 Est. Patient 14:27:26 CDT Austin Albarado MD [facility] CPT-89787 Level 4 Est. Patient 12:51:43 [employer] Austin Albarado MD [facility] CPT-49333 Level 3 New Patient 14:17:38 [employer] Austin Albarado MD [facility] CPT-15253 Level 3 New Patient 11:28:18 [employer] Austin Albarado MD [facility] Procedures Code Procedure Name Date Entry Date Standard Description CPT-48508 Chest 2V Frontal and Lat 15:00:00 [employer] CPT-44050 Breathing Tx 14:49:25 [employer]ARM [employer] CPT-36536 Fluzone High Dose 15:08:41 [employer] CPT-54249 Immunization Single Admin 15:08:41 [employer] CPT-96227 Fluzone High Dose 17:31:19 CDT CPT-94153 Administration single or combination vaccine inc oral 17 :31:19 CDT CPT-24533 Venipuncture Draw Fee 11:03:05 CDT CPT-TCMM Transitional Care Mgmt-Moderate 16:32:35 CDT CPT-30070 Chest 2V Frontal and Lat 11:51:09 CDT CPT-G0008 Administration of Influenza Virus Vaccine 15:09:08 CDT CPT-24684 Fluzone High-Dose Intramuscular Suspension 15:09:08 CDT CPT-78657 Administration single or combination vaccine inc oral 17 :07:02 [employer]ARM [employer] CPT-19386 Influenza High Dose age 65+ 17:07:02 STATE [employer]ARM [employer]ENT
--- OUTSIDE RECORDS SUMMARY | 2017-02-27 22:19 | XMS REPORT | Clinical Summary ---
Author Author Admin, LEE Organization [facility] Address Unknown Phone Unavailable Allergies, Adverse [...] THAN, 1/2 TAB FOR 3 DAYS. PREDNISONE [id number] No Longer Active Austin Albarado MD Active LEVAQUIN 500 MG TAB 1 tablet by mouth daily for 10 days. LEVOFLOXACIN 03490875569 No Longer Active Austin Albarado MD Active PREDNISONE 20 MG TAB take 3 tabs daily for 3 days, 2 tabs daily for 3 days, 1 tab daily for 3 days, 1/2 tab daily for 3 days PREDNISONE 37825788619 No Longer Active Simona Galloway APRN Active ZITHROMAX 1 GM ORAL PACK DIRECTED AZITHROMYCIN 79044527811 No Longer Active Simona Galloway APRN Active PREDNISONE 20 MG TAB 2 tabs daily for 4 days, 1 tab daily for 4 days, 1/2 tab daily for 4 days PREDNISONE 46259166343 No Longer Active Austin Albarado MD Active LEVAQUIN 500 MG TAB 1 tablet by mouth daily LEVOFLOXACIN 54398253116 No Longer Active Austin Albarado MD Active PREDNISONE 20 MG TAB take 3 tabs daily for 3 days, 2 tabs daily for 3 days, 1 tab daily for 3 days, 1/2 tab daily for 3 days PREDNISONE 62015790345 No Longer Active Austin Albarado MD Active DOXYCYCLINE HYCLATE 100 MG CAP 1 cap by mouth twice daily DOXYCYCLINE HYCLATE 93270114961 No Longer Active Joshllaftab Modi APRN Active ALBUTEROL SULFATE (2.5 MG/3ML) 0.083% NEBU nebulize 1 vial q 4-6 hours prn shortness of breath ALBUTEROL SULFATE 66924102442 No Longer Active Jillina Ly BOWEN Active TORSEMIDE 20 MG TABS 1 TAB PO BID TORSEMIDE 70368699755 No Longer Active Jillina Fraganga BOWEN Active PREDNISONE 20 MG TAB 2 tabs daily for 3 days, 1 tab daily for 3 days, 1/2 tab daily for 2 days PREDNISONE 76313529644 No Longer Active Austin Albarado MD Active LEVOFLOXACIN 500 MG ORAL TABS take 1 tab po qday LEVOFLOXACIN 22236240242 No Longer Active Austin Albarado MD Active PREDNISONE 20 MG TAB 2 tablets today, then 1 tablet by mouth days 2-5 PREDNISONE 76280618723 No Longer Active Austin Albarado MD Active AZITHROMYCIN 500 MG SOLR 1 po q day AZITHROMYCIN 25845121090 No Longer Active Austin Albarado MD Active KEFLEX 500 MG CAP 1 po TID x 7 days CEPHALEXIN 35369137375 No Longer Active Tristan Vaughn MD Active EQL VISION FORMULA TABS 1 TAB PO DAILY MULTIPLE VITAMINS-MINERALS 48699274577 No Longer Active Tristan Vaughn MD Active CHANTIX STARTING MONTH ELVIS 0.5 MG X 11 & 1 MG X 42 TABS 0.5mg daily for 3 days , then 0.5mg BID for 4 days, then 1mg BID VARENICLINE TARTRATE 78389299702 No Longer Active Tristan Vaughn MD Active LEVOTHYROXINE SODIUM 200 MCG TABS 1 TAB PO DAILY LEVOTHYROXINE SODIUM 58065114030 No Longer Active Tristan Vaughn MD Active LIOTHYRONINE SODIUM 50 MCG TABS take 1 tab po qday for hypothyroidism LIOTHYRONINE SODIUM 58692158515 No Longer Active Austin Albarado MD Active SYNTHROID 0.025 MG TAB 1 tablet by mouth daily LEVOTHYROXINE SODIUM 28979540654 No Longer Active Austin Albarado MD Active ARMOUR THYROID 120 MG TABS take 1 tab po qday for hypothyroidism THYROID 72784281165 Active Austin Albarado MD Active FLONASE 50 MCG/ACT SUSP 1 spray each nostril am and hs FLUTICASONE PROPIONATE 08343261479 Active Austin Albarado MD Active ZITHROMAX 1 GM PACK DIRECTED AZITHROMYCIN 49953965231 No Longer Active Austin Albarado MD Active PREDNISONE 20 MG TAB 2 tabs daily for 3 days, 1 tab daily for 3 days, 1/2 tab daily for 2 days PREDNISONE 02914540236 No Longer Active Austin Albarado MD Active ZITHROMAX 250 MG TAB 2 po today, then 1 po q days 2-5 AZITHROMYCIN 25708875314 No Longer Active Austin Albarado MD Active NYSTATIN-TRIAMCINOLONE 946566-0.1 UNIT/GM-% OINT Apply to affected area TID NYSTATIN-TRIAMCINOLONE 82711009003 Active Austin Albarado MD Active IPRATROPIUM-ALBUTEROL 0.5-2.5 (3) MG/3ML SOLN 1 VIAL NEB Q 6 HRS PRN IPRATROPIUM-ALBUTEROL 32621701329 Active Austin Albarado MD Active PROAIR HFA 108 (90 BASE) MCG/ACT AERS take 1-2 puffs q4hrs prn cough/ SOB ALBUTEROL SULFATE 63001200775 Active Austin Albarado MD Active ADVAIR DISKUS 500-50 MCG/DOSE AEPB ONE INH BID FLUTICASONE- SALMETEROL 12176914464 Active Austin Albarado MD Active ZITHROMAX 1 GM PACK DIRECTED ZITHROMAX 1 GM PACK 861402 AZITHROMYCIN Inactive SYNTHROID 0.025 MG TAB 1 tablet by mouth daily SYNTHROID 0.025 MG TAB 013225 LEVOTHYROXINE SODIUM Inactive LIOTHYRONINE SODIUM 50 MCG TABS take 1 tab po qday for hypothyroidism LIOTHYRONINE SODIUM 50 MCG TABS 517027 LIOTHYRONINE SODIUM Inactive LEVOTHYROXINE SODIUM 200 MCG TABS 1 TAB PO DAILY LEVOTHYROXINE SODIUM 200 MCG TABS 233894 LEVOTHYROXINE SODIUM Inactive CHANTIX STARTING MONTH ELVIS [...] po q day AZITHROMYCIN 500 MG SOLR 48484912782 AZITHROMYCIN Inactive PREDNISONE 20 MG TAB 2 tablets today, then 1 tablet by mouth days 2-5 PREDNISONE 20 MG TAB 191264 PREDNISONE Inactive TORSEMIDE 20 MG TABS 1 TAB PO BID TORSEMIDE 20 MG TABS 644083 TORSEMIDE Inactive ALBUTEROL SULFATE (2.5 MG/3ML) 0.083% NEBU nebulize 1 vial q 4-6 hours prn shortness of breath ALBUTEROL SULFATE (2.5 MG/3ML) 0.083% NEBU 577906 ALBUTEROL SULFATE Inactive LEVAQUIN 500 MG TAB 1 tablet by mouth daily LEVAQUIN 500 MG TAB 029329 LEVOFLOXACIN Inactive PREDNISONE 20 MG TAB 2 tabs daily for 4 days, 1 tab daily for 4 days, 1/2 tab daily for 4 days PREDNISONE 20 MG TAB 478091 PREDNISONE Inactive ZITHROMAX 1 GM ORAL PACK DIRECTED ZITHROMAX 1 GM ORAL PACK 130441 AZITHROMYCIN Inactive LEVAQUIN 500 MG TAB 1 tablet by mouth daily for 10 days. LEVAQUIN 500 MG TAB 106882 LEVOFLOXACIN Inactive PREDNISONE 20 MG ORAL TABS 3 TABS PO FOR 3 DAYS,THAN 2 TABS FOR 3 DAYS THAN, 1 TAB FOR 3 DAYS THAN, 1/2 TAB FOR 3 DAYS. PREDNISONE 20 MG ORAL TABS 016549 PREDNISONE Inactive ZITHROMAX 250 MG TAB 2 po today, then 1 po q days 2-5 ZITHROMAX 250 MG TAB 1897613 AZITHROMYCIN Inactive PREDNISONE 20 MG TAB 2 tabs daily for 3 days, 1 tab daily for 3 days, 1/2 tab daily for 2 days PREDNISONE 20 MG TAB 663264 PREDNISONE Inactive KEFLEX 500 MG CAP 1 po TID x 7 days KEFLEX 500 MG CAP 169763 CEPHALEXIN Inactive LEVOFLOXACIN 500 MG ORAL TABS take 1 tab po qday LEVOFLOXACIN 500 MG ORAL TABS 984587 LEVOFLOXACIN Inactive PREDNISONE 20 MG TAB 2 tabs daily for 3 days, 1 tab daily for 3 days, 1/2 tab daily for 2 days PREDNISONE 20 MG TAB 492936 PREDNISONE Inactive DOXYCYCLINE HYCLATE 100 MG CAP 1 cap by mouth twice daily DOXYCYCLINE HYCLATE 100 MG CAP 0982309 DOXYCYCLINE HYCLATE Inactive PREDNISONE 20 MG TAB take 3 tabs daily for 3 days, 2 tabs daily for 3 days, 1 tab daily for 3 days, 1/2 tab daily for 3 days PREDNISONE 20 MG TAB 796755 PREDNISONE Inactive PREDNISONE 20 MG TAB take 3 tabs daily for 3 days, 2 tabs daily for 3 days, 1 tab daily for 3 days, 1/2 tab daily for 3 days PREDNISONE 20 MG TAB 792105 PREDNISONE Inactive Advance Directives Directive Description Start [...] ... - Chemistry sodium, serum 140 mmol/L 392-736 2877/03/09 potassium, serum 4.9 mmol/L 3.5-5.2 chloride, serum [...] ... - Chemistry cholesterol, serum 136 mg/dL 890-116 4461/10/06 triglyceride, serum, fasting 30 mg/dL 30-200 HDL cholesterol, serum 57 mg/dL 32-96 LDL cholesterol, serum 73 mg/dL 0-130 prostate specific antigen 1.45 ng/mL 0.00-4.00 thyroxine, serum, free 0.80 ng/dL 0.76-1.46 TSH 14.03 m[iU]/mL 0.36-3.74 Encounters Code Encounter Date Provider Facility CPT-98477 Level 4 Est. Patient 20:09:43 RESISTANCE BRAZER Austin Albarado MD [facility] CPT-91138 Level 4 Est. Patient 21:00:28 CDT Austin Albarado MD [facility] CPT-52011 Level 4 Est. Patient 10:03:37 CDT Austin Albarado MD [facility] CPT-91060 Level 3 Est. Patient 10:50:28 RESISTANCE BRAZER Austin Albarado MD [facility] CPT-61308 Level 4 Est. Patient 21:31:41 RESISTANCE BRAZER Austin Albarado MD [facility] CPT-69675 Level 3 Est. Patient 16:22:54 RESISTANCE BRAZER Jann Law DO [facility] CPT-58847 Level 3 Est. Patient 11:04:53 RESISTANCE BRAZER Tristan Vaughn MD [facility] CPT-86924 Level 4 Est. Patient 09:50:59 CDT Austin Albarado MD [facility] CPT-31128 Level 4 Est. Patient 09:29:00 CDT Austin Albarado MD [facility] CPT-49352 Level 4 Est. Patient 14:23:07 CDT Austin Albarado MD [facility] CPT-68120 Level 4 Est. Patient 14:27:26 CDT Austin Albarado MD [facility] CPT-27834 Level 4 Est. Patient 12:51:43 RESISTANCE BRAZER Austin Albarado MD [facility] CPT-46304 Level 3 New Patient 14:17:38 RESISTANCE BRAZER Austin Albarado MD [facility] CPT-36113 Level 3 New Patient 11:28:18 RESISTANCE BRAZER Austin Albarado MD [facility] Procedures Code Procedure Name Date Entry Date Standard Description CPT-42040 Chest 2V Frontal and Lat 15:00:00 RESISTANCE BRAZER CPT-88178 Breathing Tx 14:49:25 RESISTANCE BRAZER CPT-47818 Fluzone High Dose 15:08:41 RESISTANCE BRAZER CPT-72871 Immunization Single Admin 15:08:41 RESISTANCE BRAZER CPT-21897 Fluzone High Dose 17:31:19 CDT CPT-94950 Administration single or combination vaccine inc oral 17 :31:19 CDT CPT-06906 Venipuncture Draw Fee 11:03:05 CDT CPT-TCMM Transitional Care Mgmt-Moderate 16:32:35 CDT CPT-27060 Chest 2V Frontal and Lat 11:51:09 CDT CPT-G0008 Administration of Influenza Virus Vaccine 15:09:08 CDT CPT-96267 Fluzone High-Dose Intramuscular Suspension 15:09:08 CDT CPT-69328 Administration single or combination vaccine inc oral 17 :07:02 RESISTANCE BRAZER CPT-95470 Influenza High Dose age 65+ 17:07:02 RESISTANCE BRAZER
--- OUTSIDE RECORDS SUMMARY | 2017-02-27 22:19 | XMS REPORT | Clinical Summary ---
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 Tracei Arrington APRN Chronic airway obstruction, not elsewhere classified Family history of myocardial infarction V17.3 Active Tracie Arrington APRN Family history of ischemic heart disease CAD 414.00 Active Tracie Arrington APRN Coronary atherosclerosis of unspecified type of vessel, [place] or graft U R I ICD-465.9 Inactive Austin Albarado MD 06/13 Bronchitis-Acute ICD-466.0 Inactive Austin Albarado MD Medication List Medication Instructions Start Date Stop Date Generic Name NDC Status Provider Patient Instruction FUROSEMIDE 20 MG TABS 2 today and tomorrow and then 1 daily as needed for swelling FUROSEMIDE 69671279738 Active Garcia Stroud MD Active AMOXICILLIN 500 MG ORAL TABS Take one by mouth 3 times daily, morning, afternoon and evening.] AMOXICILLIN 49555198630 No Longer Active Garcia Stroud MD Active PREDNISONE 20 MG ORAL TABS 3 daily for 3 days than, 2 tabs daily for 3 days than, 2 tabs daily for 3 days than, 1 tab daily for 3 days than 1/2 tab daily for 3 days. PREDNISONE 72701146783 No Longer Active Tracie Arrington APRN Active FLUTICASONE PROPIONATE 50 MCG/ACT SUSP 1 to 2 sprays each nostril daily 08/21 FLUTICASONE PROPIONATE 68449049006 Active Simona Galloway APRN Active PREDNISONE 10 MG TAB take 1 tab po qday for severe COPD PREDNISONE 36569570257 Active Austin Albarado MD Active PREDNISONE 20 MG ORAL TABS 3 TABS PO FOR 3 DAYS,THAN 2 TABS FOR 3 DAYS THAN, 1 TAB FOR 3 DAYS THAN, 1/2 TAB FOR 3 DAYS. PREDNISONE 40760560729 No Longer Active Austin Albarado MD Active LEVAQUIN 500 MG TAB 1 tablet by mouth daily for 10 days. LEVOFLOXACIN 08259435279 No Longer Active Austin Albarado MD Active PREDNISONE 20 MG TAB take 3 tabs daily for 3 days, 2 tabs daily for 3 days, 1 tab daily for 3 days, 1/2 tab daily for 3 days PREDNISONE 47870406455 No Longer Active Simona Galloway APRN Active ZITHROMAX 1 GM ORAL PACK DIRECTED AZITHROMYCIN 02853901706 No Longer Active Simona Galloway APRN Active PREDNISONE 20 MG TAB 2 tabs daily for 4 days, 1 tab daily for 4 days, 1/2 tab daily for 4 days PREDNISONE 78174140507 No Longer Active Austin Albarado MD Active LEVAQUIN 500 MG TAB 1 tablet by mouth daily LEVOFLOXACIN 04389602847 No Longer Active Austin Albarado MD Active PREDNISONE 20 MG TAB take 3 tabs daily for 3 days, 2 tabs daily for 3 days, 1 tab daily for 3 days, 1/2 tab daily for 3 days PREDNISONE 86438350773 No Longer Active Austin Albarado MD Active DOXYCYCLINE HYCLATE 100 MG CAP 1 cap by mouth twice daily DOXYCYCLINE HYCLATE 25211835793 No Longer Active Jikatyaina Ly BOWEN Active ALBUTEROL SULFATE (2.5 MG/3ML) 0.083% NEBU nebulize 1 vial q 4-6 hours prn shortness of breath ALBUTEROL SULFATE 22146264192 No Longer Active Jillina Frashonnal AIR HOLE DRILLER Active TORSEMIDE 20 MG TABS 1 TAB PO BID TORSEMIDE 18152633925 No Longer Active 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 AIR HOLE DRILLER Active PREDNISONE 20 MG TAB 2 tabs daily for 3 days, 1 tab daily for 3 days, 1/2 tab daily for 2 days PREDNISONE 90514404769 No Longer Active Austin Albarado MD Active LEVOFLOXACIN 500 MG ORAL TABS take 1 tab po qday LEVOFLOXACIN 59455093703 No Longer Active Austin Albarado MD Active PREDNISONE 20 MG TAB 2 tablets today, then 1 tablet by mouth days 2-5 PREDNISONE 90310394339 No Longer Active Austin Albarado MD Active AZITHROMYCIN 500 MG SOLR 1 po q day AZITHROMYCIN 97136745210 No Longer Active Austin Albarado MD Active KEFLEX 500 MG CAP 1 po TID x 7 days CEPHALEXIN 70707818982 No Longer Active Tristan Vaughn MD Active EQL VISION FORMULA TABS 1 TAB PO DAILY MULTIPLE VITAMINS-MINERALS 38118166967 No Longer Active Tristan Vaughn MD Active CHANTIX STARTING MONTH ELVIS 0.5 MG X 11 & 1 MG X 42 TABS 0.5mg daily for 3 days , then 0.5mg BID for 4 days, then 1mg BID VARENICLINE TARTRATE 30878520536 No Longer Active Tristan Vaughn MD Active LEVOTHYROXINE SODIUM 200 MCG TABS 1 TAB PO DAILY LEVOTHYROXINE SODIUM 82022498872 No Longer Active Tristan Vaughn MD Active LIOTHYRONINE SODIUM 50 MCG TABS take 1 tab po qday for hypothyroidism LIOTHYRONINE SODIUM 31741726253 No Longer Active Austin Albarado MD Active SYNTHROID 0.025 MG TAB 1 tablet by mouth daily LEVOTHYROXINE SODIUM 41136799252 No Longer Active Austin Albarado MD Active ARMOUR THYROID 120 MG TABS take 1 tab po qday for hypothyroidism THYROID 08243212380 Active Austin Albarado MD Active FLONASE 50 MCG/ACT SUSP 1 spray each nostril am and hs FLUTICASONE PROPIONATE Active Simona Nilesh AIR HOLE DRILLER Active ZITHROMAX 1 GM PACK DIRECTED AZITHROMYCIN 49195492161 No Longer Active Austin Albarado MD Active PREDNISONE 20 MG TAB 2 tabs daily for 3 days, 1 tab daily for 3 days, 1/2 tab daily for 2 days PREDNISONE 31792048364 No Longer Active Austin Albarado MD Active ZITHROMAX 250 MG TAB 2 po today, then 1 po q days 2-5 AZITHROMYCIN 74457866823 No Longer Active Austin Albarado MD Active NYSTATIN-TRIAMCINOLONE 761798-4.1 UNIT/GM-% OINT Apply to affected area TID NYSTATIN-TRIAMCINOLONE 37137622275 Active Austin Albarado MD Active IPRATROPIUM-ALBUTEROL 0.5-2.5 (3) MG/3ML SOLN 1 VIAL NEB Q 6 HRS PRN IPRATROPIUM-ALBUTEROL 07129615907 Active Austin Albarado MD Active PROAIR HFA 108 (90 BASE) MCG/ACT AERS take 1-2 puffs q4hrs prn cough/ SOB ALBUTEROL SULFATE 17563750271 Active Austin Albarado MD Active ADVAIR DISKUS 500-50 MCG/DOSE AEPB ONE INH BID FLUTICASONE- SALMETEROL 81192074960 Active Austin Albarado MD Active ZITHROMAX 1 GM PACK DIRECTED ZITHROMAX 1 GM PACK 017984 AZITHROMYCIN Inactive SYNTHROID 0.025 MG TAB 1 tablet by mouth daily SYNTHROID 0.025 MG TAB 398022 LEVOTHYROXINE SODIUM Inactive LIOTHYRONINE SODIUM 50 MCG TABS take 1 tab po qday for hypothyroidism LIOTHYRONINE SODIUM 50 MCG TABS 202872 LIOTHYRONINE SODIUM Inactive LEVOTHYROXINE SODIUM 200 MCG TABS 1 TAB PO DAILY LEVOTHYROXINE SODIUM 200 MCG TABS 296424 LEVOTHYROXINE SODIUM Inactive CHANTIX STARTING MONTH ELVIS [...] po q day AZITHROMYCIN 500 MG SOLR 93675691213 AZITHROMYCIN Inactive PREDNISONE 20 MG TAB 2 tablets today, then 1 tablet by mouth days 2-5 PREDNISONE 20 MG TAB 944990 PREDNISONE Inactive TORSEMIDE 20 MG TABS 1 TAB PO BID TORSEMIDE 20 MG TABS 341706 TORSEMIDE Inactive ALBUTEROL SULFATE (2.5 MG/3ML) 0.083% NEBU nebulize 1 vial q 4-6 hours prn shortness of breath ALBUTEROL SULFATE (2.5 MG/3ML) 0.083% NEBU 123715 ALBUTEROL SULFATE Inactive LEVAQUIN 500 MG TAB 1 tablet by mouth daily LEVAQUIN 500 MG TAB 528808 LEVOFLOXACIN Inactive PREDNISONE 20 MG TAB 2 tabs daily for 4 days, 1 tab daily for 4 days, 1/2 tab daily for 4 days PREDNISONE 20 MG TAB 816628 PREDNISONE Inactive ZITHROMAX 1 GM ORAL PACK DIRECTED ZITHROMAX 1 GM ORAL PACK 671673 AZITHROMYCIN Inactive LEVAQUIN 500 MG TAB 1 tablet by mouth daily for 10 days. LEVAQUIN 500 MG TAB 070903 LEVOFLOXACIN Inactive PREDNISONE 20 MG ORAL TABS 3 TABS PO FOR 3 DAYS,THAN 2 TABS FOR 3 DAYS THAN, 1 TAB FOR 3 DAYS THAN, 1/2 TAB FOR 3 DAYS. PREDNISONE 20 MG ORAL TABS 287307 PREDNISONE Inactive PREDNISONE 20 MG ORAL TABS 3 daily for 3 days than, 2 tabs daily for 3 days than, 2 tabs daily for 3 days than, 1 tab daily for 3 days than 1/2 tab daily for 3 days. PREDNISONE 20 MG ORAL TABS 013822 PREDNISONE Inactive AMOXICILLIN 500 MG ORAL TABS Take one by mouth 3 times daily, morning, afternoon and evening.] AMOXICILLIN 500 MG ORAL TABS 332561 AMOXICILLIN Inactive ZITHROMAX 250 MG TAB 2 po today, then 1 po q days 2-5 ZITHROMAX 250 MG TAB 6521747 AZITHROMYCIN Inactive PREDNISONE 20 MG TAB 2 tabs daily for 3 days, 1 tab daily for 3 days, 1/2 tab daily for 2 days PREDNISONE 20 MG TAB 089269 PREDNISONE Inactive KEFLEX 500 MG CAP 1 po TID x 7 days KEFLEX 500 MG CAP 819914 CEPHALEXIN Inactive LEVOFLOXACIN 500 MG ORAL TABS take 1 tab po qday LEVOFLOXACIN 500 MG ORAL TABS 216857 LEVOFLOXACIN Inactive PREDNISONE 20 MG TAB 2 tabs daily for 3 days, 1 tab daily for 3 days, 1/2 tab daily for 2 days PREDNISONE 20 MG TAB 602397 PREDNISONE Inactive DOXYCYCLINE HYCLATE 100 MG CAP 1 cap by mouth twice daily DOXYCYCLINE HYCLATE 100 MG CAP 3547750 DOXYCYCLINE HYCLATE Inactive PREDNISONE 20 MG TAB take 3 tabs daily for 3 days, 2 tabs daily for 3 days, 1 tab daily for 3 days, 1/2 tab daily for 3 days PREDNISONE 20 MG TAB 245301 PREDNISONE Inactive PREDNISONE 20 MG TAB take 3 tabs daily for 3 days, 2 tabs daily for 3 days, 1 tab daily for 3 days, 1/2 tab daily for 3 days PREDNISONE 20 MG TAB 651085 PREDNISONE Inactive Advance Directives Directive Description Start [...] mg/dL 30-200 cholesterol, serum 136 mg/dL 130-200 Lab Report: Thyroid Stimulating Hormone (L), Comp. Metabolic Panel, CBC, ... - Chemistry cholesterol, serum 189 mg/dL 174-002 4863/04/06 triglyceride, serum, fasting 117 mg/dL 30-200 HDL cholesterol, serum 70 mg/dL 32-96 LDL cholesterol, serum 96 mg/dL 0-130 TSH 43.52 m[iU]/mL 0.36-3.74 sodium, serum 140 mmol/L 228-366 0299/04/06 carbon dioxide, venous blood 36.3 mmol/L 21.0-32.0 [...] 142-424 Encounters Code Encounter Date Provider Facility CPT-12502 Level 4 Est. Patient 23:08:56 CDT Austin Albarado MD [facility] CPT-54279 Level 4 Est. Patient 13:27:28 CDT Garcia Stroud MD [facility] CPT-17355 Level 4 Est. Patient 10:51:20 CDT Austin Albarado MD [facility] CPT-63845 Level 4 Est. Patient 20:09:43 DESIGN ASSEMBLER Austin Albarado MD [facility] CPT-30050 Level 4 Est. Patient 21:00:28 CDT Austin Albarado MD [facility] CPT-38077 Level 4 Est. Patient 10:03:37 CDT Austin Albarado MD [facility] CPT-76847 Level 3 Est. Patient 10:50:28 DESIGN ASSEMBLER Austin Albarado MD [facility] CPT-03923 Level 4 Est. Patient 21:31:41 DESIGN ASSEMBLER Austin Albarado MD [facility] CPT-51866 Level 3 Est. Patient 16:22:54 DESIGN ASSEMBLER Jann Law DO [facility] CPT-45002 Level 3 Est. Patient 11:04:53 DESIGN ASSEMBLER Tristan Vaughn MD [facility] CPT-79208 Level 4 Est. Patient 09:50:59 CDT Austin Albarado MD [facility] CPT-71821 Level 4 Est. Patient 09:29:00 CDT Austin Albarado MD [facility] CPT-93651 Level 4 Est. Patient 14:23:07 CDT Austin Albarado MD [facility] CPT-07639 Level 4 Est. Patient 14:27:26 CDT Austin Albarado MD [facility] CPT-26534 Level 4 Est. Patient 12:51:43 DESIGN ASSEMBLER Austin Albarado MD [facility] CPT-70152 Level 3 New Patient 14:17:38 DESIGN ASSEMBLER Austin Albarado MD [facility] CPT-74737 Level 3 New Patient 11:28:18 DESIGN ASSEMBLER Austin Albarado MD [facility] Procedures Code Procedure Name Date Entry Date Standard Description CPT-G0009 Administration of Pneumococcal Vaccine 13:25:27 CDT CPT-99643 Prevnar 13 Intramuscular Suspension 13:25:27 CDT 09/26 CPT-G0438 Initial Annual Wellness Exam 11:28:26 CDT CPT-81174 Chest 2V Frontal and Lat 15:00:00 DESIGN ASSEMBLER CPT-43538 Breathing Tx 14:49:25 DESIGN ASSEMBLER CPT-71118 Fluzone High Dose 15:08:41 DESIGN ASSEMBLER CPT-56262 Immunization Single Admin 15:08:41 DESIGN ASSEMBLER CPT-11634 Fluzone High Dose 17:31:19 CDT CPT-61230 Administration single or combination vaccine inc oral 17 :31:19 CDT CPT-01380 Venipuncture Draw Fee 11:03:05 CDT CPT-TCMM Transitional Care Mgmt-Moderate 16:32:35 CDT CPT-11606 Chest 2V Frontal and Lat 11:51:09 CDT CPT-G0008 Administration of Influenza Virus Vaccine 15:09:08 CDT CPT-90244 Fluzone High-Dose Intramuscular Suspension 15:09:08 CDT CPT-70811 Administration single or combination vaccine inc oral 17 :07:02 DESIGN ASSEMBLER CPT-13343 Influenza High Dose age 65+ 17:07:02 DESIGN ASSEMBLER
--- OUTSIDE RECORDS SUMMARY | 2017-02-27 22:20 | XMS REPORT | Clinical Summary ---
Author Author Admin, DILLONE Organization [employer] Address Unknown Phone Unavailable Allergies, Adverse Reactions, [...] Coronary atherosclerosis of unspecified type of vessel, [place] or graft Peripheral edema 782.3 Active Austin Albarado MD Edema U R I ICD-465.9 Inactive Austin Albarado MD 06/13 Bronchitis-Acute ICD-466.0 Inactive Austin Albarado MD Medication List Medication Instructions Start Date Stop Date Generic Name NDC Status Provider Patient Instruction FUROSEMIDE 20 MG TABS take 1 tab po BID for swelling FUROSEMIDE 33873285605 Active Austin Albarado MD Active LEVAQUIN 500 MG TAB 1 tablet by mouth daily LEVOFLOXACIN 89891381955 Active Mica Sneed Active PREDNISONE 20 MG ORAL TABS 3 tabs po for 3 days than,2 tabs po for 3 days,1 tab po for 3 days, 1/2 tab po for 3 days. PREDNISONE 73502540867 Active Madhavi Fiore Active AMOXICILLIN 500 MG ORAL TABS Take one by mouth 3 times daily, morning, afternoon and evening.] AMOXICILLIN 52817158950 No Longer Active Garcia Stroud MD Active PREDNISONE 20 MG ORAL TABS 3 daily for 3 days than, 2 tabs daily for 3 days than, 2 tabs daily for 3 days than, 1 tab daily for 3 days than 1/2 tab daily for 3 days. PREDNISONE 45166794015 No Longer Active Tracie Arrington APRN Active FLUTICASONE PROPIONATE 50 MCG/ACT SUSP 1 to 2 sprays each nostril daily 08/21 FLUTICASONE PROPIONATE 43340552421 Active Simona Galloway APRN Active PREDNISONE 10 MG TAB take 1 tab po qday for severe COPD PREDNISONE 57160830491 Active Austin Albarado MD Active PREDNISONE 20 MG ORAL TABS 3 TABS PO FOR 3 DAYS,THAN 2 TABS FOR 3 DAYS THAN, 1 TAB FOR 3 DAYS THAN, 1/2 TAB FOR 3 DAYS. PREDNISONE 53506113696 No Longer Active Austin Albarado MD Active LEVAQUIN 500 MG TAB 1 tablet by mouth daily for 10 days. LEVOFLOXACIN 86214062306 No Longer Active Austin Albarado MD Active PREDNISONE 20 MG TAB take 3 tabs daily for 3 days, 2 tabs daily for 3 days, 1 tab daily for 3 days, 1/2 tab daily for 3 days PREDNISONE 52939949420 No Longer Active Simona Galloway APRN Active ZITHROMAX 1 GM ORAL PACK DIRECTED AZITHROMYCIN 18892621759 No Longer Active Simona Galloway APRN Active PREDNISONE 20 MG TAB 2 tabs daily for 4 days, 1 tab daily for 4 days, 1/2 tab daily for 4 days PREDNISONE 05873028765 No Longer Active Austin Albarado MD Active LEVAQUIN 500 MG TAB 1 tablet by mouth daily LEVOFLOXACIN 94773923847 No Longer Active Austin Albarado MD Active PREDNISONE 20 MG TAB take 3 tabs daily for 3 days, 2 tabs daily for 3 days, 1 tab daily for 3 days, 1/2 tab daily for 3 days PREDNISONE 62284370010 No Longer Active Austin Albarado MD Active DOXYCYCLINE HYCLATE 100 MG CAP 1 cap by mouth twice daily DOXYCYCLINE HYCLATE 39344235946 No Longer Active Esperanza Modi APRN Active ALBUTEROL SULFATE (2.5 MG/3ML) 0.083% NEBU nebulize 1 vial q 4-6 hours prn shortness of breath ALBUTEROL SULFATE 96286288599 No Longer Active Esperanza Modi APRN Active TORSEMIDE 20 MG TABS 1 TAB PO BID TORSEMIDE 70282835790 No Longer Active Jillaftab Modi [employer]GER Active PREDNISONE 20 MG TAB 2 tabs daily for 3 days, 1 tab daily for 3 days, 1/2 tab daily for 2 days PREDNISONE 19606111778 No Longer Active Austin Albarado MD Active LEVOFLOXACIN 500 MG ORAL TABS take 1 tab po qday LEVOFLOXACIN 45208238597 No Longer Active Austin Albarado MD Active PREDNISONE 20 MG TAB 2 tablets today, then 1 tablet by mouth days 2-5 PREDNISONE 45918031990 No Longer Active Austin Albarado MD Active AZITHROMYCIN 500 MG SOLR 1 po q day AZITHROMYCIN 27244111740 No Longer Active Austin Albarado MD Active KEFLEX 500 MG CAP 1 po TID x 7 days CEPHALEXIN 83425611453 No Longer Active Tristan Vaugnh MD Active EQL VISION FORMULA TABS 1 TAB PO DAILY MULTIPLE VITAMINS-MINERALS 80016739969 No Longer Active Tristan aVughn MD Active CHANTIX STARTING MONTH ELVIS 0.5 MG X 11 & 1 MG X 42 TABS 0.5mg daily for 3 days , then 0.5mg BID for 4 days, then 1mg BID VARENICLINE TARTRATE 73096549987 No Longer Active Tristan Vaughn MD Active LEVOTHYROXINE SODIUM 200 MCG TABS 1 TAB PO DAILY LEVOTHYROXINE SODIUM 12051755939 No Longer Active Tristan Vaughn MD Active LIOTHYRONINE SODIUM 50 MCG TABS take 1 tab po qday for hypothyroidism LIOTHYRONINE SODIUM 42109563022 No Longer Active Austin Albarado MD Active SYNTHROID 0.025 MG TAB 1 tablet by mouth daily LEVOTHYROXINE SODIUM 38357757193 No Longer Active Austin Albarado MD Active ARMOUR THYROID 120 MG TABS take 1 tab po qday for hypothyroidism THYROID 66242173237 Active Austin Albarado MD Active FLONASE 50 MCG/ACT SUSP 1 spray each nostril am and hs FLUTICASONE PROPIONATE Active Simona Galloway APRN Active ZITHROMAX 1 GM PACK DIRECTED AZITHROMYCIN 51427105838 No Longer Active Austin Albarado MD Active PREDNISONE 20 MG TAB 2 tabs daily for 3 days, 1 tab daily for 3 days, 1/2 tab daily for 2 days PREDNISONE 39575452415 No Longer Active Austin Albarado MD Active ZITHROMAX 250 MG TAB 2 po today, then 1 po q days 2-5 AZITHROMYCIN 43471555831 No Longer Active Austin Albarado MD Active NYSTATIN-TRIAMCINOLONE 053805-4.1 UNIT/GM-% OINT Apply to affected area TID NYSTATIN-TRIAMCINOLONE 61431467689 Active Austin Albarado MD Active IPRATROPIUM-ALBUTEROL 0.5-2.5 (3) MG/3ML SOLN 1 VIAL NEB Q 6 HRS PRN IPRATROPIUM-ALBUTEROL 18895489541 Active Simona Galloway APRN Active PROAIR HFA 108 (90 BASE) MCG/ACT AERS take 1-2 puffs q4hrs prn cough/ SOB ALBUTEROL SULFATE 34181066969 Active Austin Albarado MD Active ADVAIR DISKUS 500-50 MCG/DOSE AEPB ONE INH BID FLUTICASONE- SALMETEROL 81081977625 Active Austin Albarado MD Active ZITHROMAX 1 GM PACK DIRECTED ZITHROMAX 1 GM PACK 311312 AZITHROMYCIN Inactive SYNTHROID 0.025 MG TAB 1 tablet by mouth daily SYNTHROID 0.025 MG TAB 702057 LEVOTHYROXINE SODIUM Inactive LIOTHYRONINE SODIUM 50 MCG TABS take 1 tab po qday for hypothyroidism LIOTHYRONINE SODIUM 50 MCG TABS 021991 LIOTHYRONINE SODIUM Inactive LEVOTHYROXINE SODIUM 200 MCG TABS 1 TAB PO DAILY LEVOTHYROXINE SODIUM 200 MCG TABS 088197 LEVOTHYROXINE SODIUM Inactive CHANTIX STARTING MONTH ELVIS [...] po q day AZITHROMYCIN 500 MG SOLR 64082516271 AZITHROMYCIN Inactive PREDNISONE 20 MG TAB 2 tablets today, then 1 tablet by mouth days 2-5 PREDNISONE 20 MG TAB 454018 PREDNISONE Inactive TORSEMIDE 20 MG TABS 1 TAB PO BID TORSEMIDE 20 MG TABS 949645 TORSEMIDE Inactive ALBUTEROL SULFATE (2.5 MG/3ML) 0.083% NEBU nebulize 1 vial q 4-6 hours prn shortness of breath ALBUTEROL SULFATE (2.5 MG/3ML) 0.083% NEBU 551282 ALBUTEROL SULFATE Inactive LEVAQUIN 500 MG TAB 1 tablet by mouth daily LEVAQUIN 500 MG TAB 275834 LEVOFLOXACIN Inactive PREDNISONE 20 MG TAB 2 tabs daily for 4 days, 1 tab daily for 4 days, 1/2 tab daily for 4 days PREDNISONE 20 MG TAB 560167 PREDNISONE Inactive ZITHROMAX 1 GM ORAL PACK DIRECTED ZITHROMAX 1 GM ORAL PACK 045414 AZITHROMYCIN Inactive LEVAQUIN 500 MG TAB 1 tablet by mouth daily for 10 days. LEVAQUIN 500 MG TAB 326953 LEVOFLOXACIN Inactive PREDNISONE 20 MG ORAL TABS 3 TABS PO FOR 3 DAYS,THAN 2 TABS FOR 3 DAYS THAN, 1 TAB FOR 3 DAYS THAN, 1/2 TAB FOR 3 DAYS. PREDNISONE 20 MG ORAL TABS 597337 PREDNISONE Inactive PREDNISONE 20 MG ORAL TABS 3 daily for 3 days than, 2 tabs daily for 3 days than, 2 tabs daily for 3 days than, 1 tab daily for 3 days than 1/2 tab daily for 3 days. PREDNISONE 20 MG ORAL TABS 870852 PREDNISONE Inactive AMOXICILLIN 500 MG ORAL TABS Take one by mouth 3 times daily, morning, afternoon and evening.] AMOXICILLIN 500 MG ORAL TABS 714263 AMOXICILLIN Inactive ZITHROMAX 250 MG TAB 2 po today, then 1 po q days 2-5 ZITHROMAX 250 MG TAB 5769731 AZITHROMYCIN Inactive PREDNISONE 20 MG TAB 2 tabs daily for 3 days, 1 tab daily for 3 days, 1/2 tab daily for 2 days PREDNISONE 20 MG TAB 612788 PREDNISONE Inactive KEFLEX 500 MG CAP 1 po TID x 7 days KEFLEX 500 MG CAP 383615 CEPHALEXIN Inactive LEVOFLOXACIN 500 MG ORAL TABS take 1 tab po qday LEVOFLOXACIN 500 MG ORAL TABS 723520 LEVOFLOXACIN Inactive PREDNISONE 20 MG TAB 2 tabs daily for 3 days, 1 tab daily for 3 days, 1/2 tab daily for 2 days PREDNISONE 20 MG TAB 968062 PREDNISONE Inactive DOXYCYCLINE HYCLATE 100 MG CAP 1 cap by mouth twice daily DOXYCYCLINE HYCLATE 100 MG CAP 1073146 DOXYCYCLINE HYCLATE Inactive PREDNISONE 20 MG TAB take 3 tabs daily for 3 days, 2 tabs daily for 3 days, 1 tab daily for 3 days, 1/2 tab daily for 3 days PREDNISONE 20 MG TAB 584655 PREDNISONE Inactive PREDNISONE 20 MG TAB take 3 tabs daily for 3 days, 2 tabs daily for 3 days, 1 tab daily for 3 days, 1/2 tab daily for 3 days PREDNISONE 20 MG TAB 732995 PREDNISONE Inactive Advance Directives Directive Description Start [...] 43.52 m[iU]/mL 0.36-3.74 sodium, serum 140 mmol/L 625-407 5583/04/06 carbon dioxide, venous blood 36.3 mmol/L 21.0-32.0 potassium, serum 4.9 mmol/L 3.5-5.2 chloride, serum 100 mmol/L 98-107 blood glucose 62 mg/dL 65-110 urea nitrogen, blood 24 mg/dL 7-18 creatinine, serum 1.09 mg/dL 0.55-1.30 alanine aminotransferase (SGPT), serum 44 U/L 12-78 aspartate aminotransferase (SGOT), serum 25 U/L 15-37 calcium, serum 8.7 mg/dL 8.5-10.1 bilirubin, serum, total 0.50 mg/dL 0.00-1.00 cholesterol, serum 189 mg/dL 140-896 8688/04/06 triglyceride, serum, fasting 117 mg/dL 30-200 HDL [...] 142-424 Encounters Code Encounter Date Provider Facility CPT-90591 Level 4 Est. Patient 16:11:14 ART CLASS MODEL Austin Albarado MD [facility] CPT-38842 Level 4 Est. Patient 23:08:56 CDT Austin Albarado MD [facility] CPT-25995 Level 4 Est. Patient 13:27:28 CDT Garcia Stroud MD [facility] CPT-60380 Level 4 Est. Patient 10:51:20 CDT Austin Albarado MD [facility] CPT-10381 Level 4 Est. Patient 20:09:43 ART CLASS MODEL Austin Albarado MD [facility] CPT-28893 Level 4 Est. Patient 21:00:28 CDT Austin Albarado MD [facility] CPT-97354 Level 4 Est. Patient 10:03:37 CDT Austin Albarado MD [facility] CPT-97451 Level 3 Est. Patient 10:50:28 ART CLASS MODEL Austin Albarado MD [facility] CPT-36218 Level 4 Est. Patient 21:31:41 ART CLASS MODEL Austin Albarado MD [facility] CPT-02535 Level 3 Est. Patient 16:22:54 ART CLASS MODEL Jann Law DO [facility] CPT-17729 Level 3 Est. Patient 11:04:53 ART CLASS MODEL Tristan Vaughn MD [facility] CPT-21993 Level 4 Est. Patient 09:50:59 CDT Austin Albarado MD [facility] CPT-05310 Level 4 Est. Patient 09:29:00 CDT Austin Albarado MD [facility] CPT-90196 Level 4 Est. Patient 14:23:07 CDT Austin Albarado MD [facility] CPT-43252 Level 4 Est. Patient 14:27:26 CDT Austin Albarado MD [facility] CPT-33233 Level 4 Est. Patient 12:51:43 ART CLASS MODEL Austin Albarado MD [facility] CPT-18348 Level 3 New Patient 14:17:38 ART CLASS MODEL Austin Albarado MD [facility] CPT-51191 Level 3 New Patient 11:28:18 ART CLASS MODEL Austin Albarado MD [facility] Procedures Code Procedure Name Date Entry Date Standard Description CPT-02317 First Vx - Ix admin for Medicare patients 16:00:49 CDT CPT-09337 Fluzone High-Dose Intramuscular Suspension 16:00:49 CDT CPT-G0009 Administration of Pneumococcal Vaccine 13:25:27 CDT CPT-64514 Prevnar 13 Intramuscular Suspension 13:25:27 CDT 09/26 CPT-G0438 Initial Annual Wellness Exam 11:28:26 CDT CPT-40590 Chest 2V Frontal and Lat 15:00:00 ART CLASS MODEL CPT-13830 Breathing Tx 14:49:25 ART CLASS MODEL CPT-69270 Fluzone High Dose 15:08:41 ART CLASS MODEL CPT-76690 Immunization Single Admin 15:08:41 ART CLASS MODEL CPT-00639 Fluzone High Dose 17:31:19 CDT CPT-05057 Administration single or combination vaccine inc oral 17 :31:19 CDT CPT-94100 Venipuncture Draw Fee 11:03:05 CDT CPT-TCMM Transitional Care Mgmt-Moderate 16:32:35 CDT CPT-65375 Chest 2V Frontal and Lat 11:51:09 CDT CPT-G0008 Administration of Influenza Virus Vaccine 15:09:08 CDT CPT-24571 Fluzone High-Dose Intramuscular Suspension 15:09:08 CDT CPT-76920 Administration single or combination vaccine inc oral 17 :07:02 ART CLASS MODEL CPT-45575 Influenza High Dose age 65+ 17:07:02 ART CLASS MODEL
--- OUTSIDE RECORDS SUMMARY | 2017-02-27 22:20 | XMS REPORT | Clinical Summary ---
Author Author Admin, ELE Organization [facility] Address Unknown Phone Unavailable Allergies, Adverse [...] THAN, 1/2 TAB FOR 3 DAYS. PREDNISONE 34811761732 No Longer Active Austin Albarado MD Active LEVAQUIN 500 MG TAB 1 tablet by mouth daily for 10 days. LEVOFLOXACIN 78835296891 No Longer Active Austin Albarado MD Active PREDNISONE 20 MG TAB take 3 tabs daily for 3 days, 2 tabs daily for 3 days, 1 tab daily for 3 days, 1/2 tab daily for 3 days PREDNISONE 59799798718 No Longer Active Simona Galloway APRN Active ZITHROMAX 1 GM ORAL PACK DIRECTED AZITHROMYCIN 03334825696 No Longer Active Simona Galloway APRN Active PREDNISONE 20 MG TAB 2 tabs daily for 4 days, 1 tab daily for 4 days, 1/2 tab daily for 4 days PREDNISONE 03249491424 No Longer Active Austin Albarado MD Active LEVAQUIN 500 MG TAB 1 tablet by mouth daily LEVOFLOXACIN 76501135173 No Longer Active Austin Albarado MD Active PREDNISONE 20 MG TAB take 3 tabs daily for 3 days, 2 tabs daily for 3 days, 1 tab daily for 3 days, 1/2 tab daily for 3 days PREDNISONE 48271046347 No Longer Active Austin Albarado MD Active DOXYCYCLINE HYCLATE 100 MG CAP 1 cap by mouth twice daily DOXYCYCLINE HYCLATE 79966739995 No Longer Active Joshllaftab Modi APRN Active ALBUTEROL SULFATE (2.5 MG/3ML) 0.083% NEBU nebulize 1 vial q 4-6 hours prn shortness of breath ALBUTEROL SULFATE 08618034132 No Longer Active Jillina Ly BOWEN Active TORSEMIDE 20 MG TABS 1 TAB PO BID TORSEMIDE 10183722354 No Longer Active Jillina Fraganga BOWEN Active PREDNISONE 20 MG TAB 2 tabs daily for 3 days, 1 tab daily for 3 days, 1/2 tab daily for 2 days PREDNISONE 69510549246 No Longer Active Austin Albarado MD Active LEVOFLOXACIN 500 MG ORAL TABS take 1 tab po qday LEVOFLOXACIN 15076488651 No Longer Active Austin Albarado MD Active PREDNISONE 20 MG TAB 2 tablets today, then 1 tablet by mouth days 2-5 PREDNISONE 83916334620 No Longer Active Austin Albarado MD Active AZITHROMYCIN 500 MG SOLR 1 po q day AZITHROMYCIN 80417201307 No Longer Active Austin Albarado MD Active KEFLEX 500 MG CAP 1 po TID x 7 days CEPHALEXIN 72120778702 No Longer Active Tristan Vaughn MD Active EQL VISION FORMULA TABS 1 TAB PO DAILY MULTIPLE VITAMINS-MINERALS 26905669618 No Longer Active Tristan Vaughn MD Active CHANTIX STARTING MONTH ELVIS 0.5 MG X 11 & 1 MG X 42 TABS 0.5mg daily for 3 days , then 0.5mg BID for 4 days, then 1mg BID VARENICLINE TARTRATE 11727385725 No Longer Active Tristan Vaughn MD Active LEVOTHYROXINE SODIUM 200 MCG TABS 1 TAB PO DAILY LEVOTHYROXINE SODIUM 26231571860 No Longer Active Tristan Vaughn MD Active LIOTHYRONINE SODIUM 50 MCG TABS take 1 tab po qday for hypothyroidism LIOTHYRONINE SODIUM 37327233415 No Longer Active Austin Albarado MD Active SYNTHROID 0.025 MG TAB 1 tablet by mouth daily LEVOTHYROXINE SODIUM 03813121813 No Longer Active Austin Albarado MD Active ARMOUR THYROID 120 MG TABS take 1 tab po qday for hypothyroidism THYROID 88787272122 Active Austin Albarado MD Active FLONASE 50 MCG/ACT SUSP 1 spray each nostril am and hs FLUTICASONE PROPIONATE 42580155811 Active Austin Albarado MD Active ZITHROMAX 1 GM PACK DIRECTED AZITHROMYCIN 85194366181 No Longer Active Austin Albarado MD Active PREDNISONE 20 MG TAB 2 tabs daily for 3 days, 1 tab daily for 3 days, 1/2 tab daily for 2 days PREDNISONE 16759183061 No Longer Active Austin Albarado MD Active ZITHROMAX 250 MG TAB 2 po today, then 1 po q days 2-5 AZITHROMYCIN 17054619617 No Longer Active Austin Albarado MD Active NYSTATIN-TRIAMCINOLONE 835153-8.1 UNIT/GM-% OINT Apply to affected area TID NYSTATIN-TRIAMCINOLONE 21504751913 Active Austin Albarado MD Active IPRATROPIUM-ALBUTEROL 0.5-2.5 (3) MG/3ML SOLN 1 VIAL NEB Q 6 HRS PRN IPRATROPIUM-ALBUTEROL 90941393742 Active Austin Albarado MD Active PROAIR HFA 108 (90 BASE) MCG/ACT AERS take 1-2 puffs q4hrs prn cough/ SOB ALBUTEROL SULFATE 37995795521 Active Austin Albarado MD Active ADVAIR DISKUS 500-50 MCG/DOSE AEPB ONE INH BID FLUTICASONE- SALMETEROL 02240169923 Active Austin Albarado MD Active ZITHROMAX 1 GM PACK DIRECTED ZITHROMAX 1 GM PACK 256877 AZITHROMYCIN Inactive SYNTHROID 0.025 MG TAB 1 tablet by mouth daily SYNTHROID 0.025 MG TAB 829607 LEVOTHYROXINE SODIUM Inactive LIOTHYRONINE SODIUM 50 MCG TABS take 1 tab po qday for hypothyroidism LIOTHYRONINE SODIUM 50 MCG TABS 233538 LIOTHYRONINE SODIUM Inactive LEVOTHYROXINE SODIUM 200 MCG TABS 1 TAB PO DAILY LEVOTHYROXINE SODIUM 200 MCG TABS 539156 LEVOTHYROXINE SODIUM Inactive CHANTIX STARTING MONTH ELVIS [...] po q day AZITHROMYCIN 500 MG SOLR 31594482425 AZITHROMYCIN Inactive PREDNISONE 20 MG TAB 2 tablets today, then 1 tablet by mouth days 2-5 PREDNISONE 20 MG TAB 496142 PREDNISONE Inactive TORSEMIDE 20 MG TABS 1 TAB PO BID TORSEMIDE 20 MG TABS 059146 TORSEMIDE Inactive ALBUTEROL SULFATE (2.5 MG/3ML) 0.083% NEBU nebulize 1 vial q 4-6 hours prn shortness of breath ALBUTEROL SULFATE (2.5 MG/3ML) 0.083% NEBU 645597 ALBUTEROL SULFATE Inactive LEVAQUIN 500 MG TAB 1 tablet by mouth daily LEVAQUIN 500 MG TAB 103807 LEVOFLOXACIN Inactive PREDNISONE 20 MG TAB 2 tabs daily for 4 days, 1 tab daily for 4 days, 1/2 tab daily for 4 days PREDNISONE 20 MG TAB 336393 PREDNISONE Inactive ZITHROMAX 1 GM ORAL PACK DIRECTED ZITHROMAX 1 GM ORAL PACK 944146 AZITHROMYCIN Inactive LEVAQUIN 500 MG TAB 1 tablet by mouth daily for 10 days. LEVAQUIN 500 MG TAB 248518 LEVOFLOXACIN Inactive PREDNISONE 20 MG ORAL TABS 3 TABS PO FOR 3 DAYS,THAN 2 TABS FOR 3 DAYS THAN, 1 TAB FOR 3 DAYS THAN, 1/2 TAB FOR 3 DAYS. PREDNISONE 20 MG ORAL TABS 567717 PREDNISONE Inactive ZITHROMAX 250 MG TAB 2 po today, then 1 po q days 2-5 ZITHROMAX 250 MG TAB 7857423 AZITHROMYCIN Inactive PREDNISONE 20 MG TAB 2 tabs daily for 3 days, 1 tab daily for 3 days, 1/2 tab daily for 2 days PREDNISONE 20 MG TAB 978951 PREDNISONE Inactive KEFLEX 500 MG CAP 1 po TID x 7 days KEFLEX 500 MG CAP 572960 CEPHALEXIN Inactive LEVOFLOXACIN 500 MG ORAL TABS take 1 tab po qday LEVOFLOXACIN 500 MG ORAL TABS 902309 LEVOFLOXACIN Inactive PREDNISONE 20 MG TAB 2 tabs daily for 3 days, 1 tab daily for 3 days, 1/2 tab daily for 2 days PREDNISONE 20 MG TAB 196884 PREDNISONE Inactive DOXYCYCLINE HYCLATE 100 MG CAP 1 cap by mouth twice daily DOXYCYCLINE HYCLATE 100 MG CAP 2716255 DOXYCYCLINE HYCLATE Inactive PREDNISONE 20 MG TAB take 3 tabs daily for 3 days, 2 tabs daily for 3 days, 1 tab daily for 3 days, 1/2 tab daily for 3 days PREDNISONE 20 MG TAB 133130 PREDNISONE Inactive PREDNISONE 20 MG TAB take 3 tabs daily for 3 days, 2 tabs daily for 3 days, 1 tab daily for 3 days, 1/2 tab daily for 3 days PREDNISONE 20 MG TAB 604887 PREDNISONE Inactive Advance Directives Directive Description Start [...] ... - Chemistry sodium, serum 140 mmol/L 656-615 8220/03/09 potassium, serum 4.9 mmol/L 3.5-5.2 chloride, serum [...] ... - Chemistry cholesterol, serum 136 mg/dL 168-217 1792/10/06 triglyceride, serum, fasting 30 mg/dL 30-200 HDL cholesterol, serum 57 mg/dL 32-96 LDL cholesterol, serum 73 mg/dL 0-130 prostate specific antigen 1.45 ng/mL 0.00-4.00 thyroxine, serum, free 0.80 ng/dL 0.76-1.46 TSH 14.03 m[iU]/mL 0.36-3.74 Encounters Code Encounter Date Provider Facility CPT-71608 Level 4 Est. Patient 20:09:43 WHITE SOURER Austin Albarado MD [facility] CPT-94581 Level 4 Est. Patient 21:00:28 CDT Austin Albarado MD [facility] CPT-58050 Level 4 Est. Patient 10:03:37 CDT Austin Albarado MD [facility]-92832 Level 3 Est. Patient 10:50:28 WHITE SOURER Austin Albarado MD [facility]-49349 Level 4 Est. Patient 21:31:41 WHITE SOURER Austin Albarado MD [facility] CPT-07636 Level 3 Est. Patient 16:22:54 WHITE SOURER Jann Law DO [facility] CPT-52910 Level 3 Est. Patient 11:04:53 WHITE SOURER Tristan Vaughn MD [facility]-13309 Level 4 Est. Patient 09:50:59 CDT Austin Albarado MD [facility]-80062 Level 4 Est. Patient 09:29:00 CDT Austin Albarado MD [facility]-06479 Level 4 Est. Patient 14:23:07 CDT Austin Albarado MD [facility] CPT-82725 Level 4 Est. Patient 14:27:26 CDT Austin Albarado MD [facility]-54123 Level 4 Est. Patient 12:51:43 WHITE SOURER Austin Albarado MD [facility] CPT-05031 Level 3 New Patient 14:17:38 WHITE SOURER Austin Albarado MD [facility] CPT-97109 Level 3 New Patient 11:28:18 WHITE SOURER Austin Albarado MD [facility] Procedures Code Procedure Name Date Entry Date Standard Description CPT-38805 Chest 2V Frontal and Lat 15:00:00 WHITE SOURER CPT-84454 Breathing Tx 14:49:25 WHITE SOURER CPT-21761 Fluzone High Dose 15:08:41 WHITE SOURER CPT-48304 Immunization Single Admin 15:08:41 WHITE SOURER CPT-91012 Fluzone High Dose 17:31:19 CDT CPT-81271 Administration single or combination vaccine inc oral 17 :31:19 CDT CPT-45770 Venipuncture Draw Fee 11:03:05 CDT CPT-TCMM Transitional Care Mgmt-Moderate 16:32:35 CDT CPT-99689 Chest 2V Frontal and Lat 11:51:09 CDT CPT-G0008 Administration of Influenza Virus Vaccine 15:09:08 CDT CPT-32423 Fluzone High-Dose Intramuscular Suspension 15:09:08 CDT CPT-31819 Administration single or combination vaccine inc oral 17 :07:02 WHITE SOURER CPT-63789 Influenza High Dose age 65+ 17:07:02 WHITE SOURER
--- OUTSIDE RECORDS SUMMARY | 2017-02-27 22:21 | XMS REPORT | Clinical Summary ---
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 PREDNISONE 70266383067 No Longer Active Simona Galloway APRN Active LEVAQUIN 500 MG TAB 1 tablet by mouth daily LEVOFLOXACIN 14405228883 No Longer Active Simona Galloway APRN Active PREDNISONE 20 MG TAB take 3 tabs daily for 3 days, 2 tabs daily for 3 days, 1 tab daily for 3 days, 1/2 tab daily for 3 days PREDNISONE 94812822934 No Longer Active Austin Albarado MD Active LEVAQUIN 500 MG TAB 1 tablet by mouth daily LEVOFLOXACIN 37096061187 No Longer Active Madhavi Fiore Active FUROSEMIDE 20 MG TABS take 1 tab po BID for swelling FUROSEMIDE 07915757480 Active Austin Albarado MD Active AMOXICILLIN 500 MG ORAL TABS Take one by mouth 3 times daily, morning, afternoon and evening.] AMOXICILLIN 54528373533 No Longer Active Garcia Stroud MD Active PREDNISONE 20 MG ORAL TABS 3 daily for 3 days than, 2 tabs daily for 3 days than, 2 tabs daily for 3 days than, 1 tab daily for 3 days than 1/2 tab daily for 3 days. PREDNISONE 77196124356 No Longer Active Tracie Arrington APRN Active FLUTICASONE PROPIONATE 50 MCG/ACT SUSP 1 to 2 sprays each nostril daily 08/21 FLUTICASONE PROPIONATE 07439533642 Active Simona Galloway APRN Active PREDNISONE 10 MG TAB take 1 tab po qday for severe COPD PREDNISONE 24720781325 Active Austin Albarado MD Active PREDNISONE 20 MG ORAL TABS 3 TABS PO FOR 3 DAYS,THAN 2 TABS FOR 3 DAYS THAN, 1 TAB FOR 3 DAYS THAN, 1/2 TAB FOR 3 DAYS. PREDNISONE 29538452702 No Longer Active Austin Albarado MD Active LEVAQUIN 500 MG TAB 1 tablet by mouth daily for 10 days. LEVOFLOXACIN 33467979203 No Longer Active Austin Albarado MD Active PREDNISONE 20 MG TAB take 3 tabs daily for 3 days, 2 tabs daily for 3 days, 1 tab daily for 3 days, 1/2 tab daily for 3 days PREDNISONE 58669171969 No Longer Active Simona Galloway APRN Active ZITHROMAX 1 GM ORAL PACK DIRECTED AZITHROMYCIN 42734013132 No Longer Active Simona Galloway APRN Active PREDNISONE 20 MG TAB 2 tabs daily for 4 days, 1 tab daily for 4 days, 1/2 tab daily for 4 days PREDNISONE 90292553380 No Longer Active Austin Albarado MD Active LEVAQUIN 500 MG TAB 1 tablet by mouth daily LEVOFLOXACIN 27590771712 No Longer Active Austin Albarado MD Active PREDNISONE 20 MG TAB take 3 tabs daily for 3 days, 2 tabs daily for 3 days, 1 tab daily for 3 days, 1/2 tab daily for 3 days PREDNISONE 55301559299 No Longer Active Austin Albarado MD Active DOXYCYCLINE HYCLATE 100 MG CAP 1 cap by mouth twice daily DOXYCYCLINE HYCLATE 37476567618 No Longer Active 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 HANDS AND DIAL INSPECTOR Active ALBUTEROL SULFATE (2.5 MG/3ML) 0.083% NEBU nebulize 1 vial q 4-6 hours prn shortness of breath ALBUTEROL SULFATE 00221888390 No Longer Active 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 HANDS AND DIAL INSPECTOR Active TORSEMIDE 20 MG TABS 1 TAB PO BID TORSEMIDE 57804826505 No Longer Active 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 HANDS AND DIAL INSPECTOR Active PREDNISONE 20 MG TAB 2 tabs daily for 3 days, 1 tab daily for 3 days, 1/2 tab daily for 2 days PREDNISONE 90661708483 No Longer Active Austin Albarado MD Active LEVOFLOXACIN 500 MG ORAL TABS take 1 tab po qday LEVOFLOXACIN 72085790601 No Longer Active Austin Albarado MD Active PREDNISONE 20 MG TAB 2 tablets today, then 1 tablet by mouth days 2-5 PREDNISONE 37637488520 No Longer Active Austin Albarado MD Active AZITHROMYCIN 500 MG SOLR 1 po q day AZITHROMYCIN 06735989839 No Longer Active Austin Albarado MD Active KEFLEX 500 MG CAP 1 po TID x 7 days CEPHALEXIN 53893389293 No Longer Active Tristan Vaughn MD Active EQL VISION FORMULA TABS 1 TAB PO DAILY MULTIPLE VITAMINS-MINERALS 11310820426 No Longer Active Tristan Vaughn MD Active CHANTIX STARTING MONTH ELVIS 0.5 MG X 11 & 1 MG X 42 TABS 0.5mg daily for 3 days , then 0.5mg BID for 4 days, then 1mg BID VARENICLINE TARTRATE 36178309760 No Longer Active Tristan Vaughn MD Active LEVOTHYROXINE SODIUM 200 MCG TABS 1 TAB PO DAILY LEVOTHYROXINE SODIUM 46493184790 No Longer Active Tristan Vaughn MD Active LIOTHYRONINE SODIUM 50 MCG TABS take 1 tab po qday for hypothyroidism LIOTHYRONINE SODIUM 53867064123 No Longer Active Austin Albarado MD Active SYNTHROID 0.025 MG TAB 1 tablet by mouth daily LEVOTHYROXINE SODIUM 50755136332 No Longer Active Austin Albarado MD Active ARMOUR THYROID 120 MG TABS take 1 tab po qday for hypothyroidism THYROID 02908621097 Active Austin Albarado MD Active FLONASE 50 MCG/ACT SUSP 1 spray each nostril am and hs FLUTICASONE PROPIONATE Active Simona Galloway APRN Active ZITHROMAX 1 GM PACK DIRECTED AZITHROMYCIN 62321470024 No Longer Active Austin Albarado MD Active PREDNISONE 20 MG TAB 2 tabs daily for 3 days, 1 tab daily for 3 days, 1/2 tab daily for 2 days PREDNISONE 14003693913 No Longer Active Austin Albarado MD Active ZITHROMAX 250 MG TAB 2 po today, then 1 po q days 2-5 AZITHROMYCIN 34583173653 No Longer Active Austin Albarado MD Active NYSTATIN-TRIAMCINOLONE 774946-0.1 UNIT/GM-% OINT Apply to affected area TID NYSTATIN-TRIAMCINOLONE 99769382234 Active Austin Albarado MD Active IPRATROPIUM-ALBUTEROL 0.5-2.5 (3) MG/3ML SOLN 1 VIAL NEB Q 6 HRS PRN IPRATROPIUM-ALBUTEROL 28881359215 Active Simona Nilesh HANDS AND DIAL INSPECTOR Active PROAIR HFA 108 (90 BASE) MCG/ACT AERS take 1-2 puffs q4hrs prn cough/ SOB ALBUTEROL SULFATE 79114346411 Active Austin Albarado MD Active ADVAIR DISKUS 500-50 MCG/DOSE AEPB ONE INH BID FLUTICASONE- SALMETEROL 54634844044 Active Austin Albarado MD Active ZITHROMAX 1 GM PACK DIRECTED ZITHROMAX 1 GM PACK 318775 AZITHROMYCIN Inactive SYNTHROID 0.025 MG TAB 1 tablet by mouth daily SYNTHROID 0.025 MG TAB 976151 LEVOTHYROXINE SODIUM Inactive LIOTHYRONINE SODIUM 50 MCG TABS take 1 tab po qday for hypothyroidism LIOTHYRONINE SODIUM 50 MCG TABS 199162 LIOTHYRONINE SODIUM Inactive LEVOTHYROXINE SODIUM 200 MCG TABS 1 TAB PO DAILY LEVOTHYROXINE SODIUM 200 MCG TABS 175943 LEVOTHYROXINE SODIUM Inactive CHANTIX STARTING MONTH ELVIS [...] po q day AZITHROMYCIN 500 MG SOLR 28896180332 AZITHROMYCIN Inactive PREDNISONE 20 MG TAB 2 tablets today, then 1 tablet by mouth days 2-5 PREDNISONE 20 MG TAB 345086 PREDNISONE Inactive TORSEMIDE 20 MG TABS 1 TAB PO BID TORSEMIDE 20 MG TABS 047348 TORSEMIDE Inactive ALBUTEROL SULFATE (2.5 MG/3ML) 0.083% NEBU nebulize 1 vial q 4-6 hours prn shortness of breath ALBUTEROL SULFATE (2.5 MG/3ML) 0.083% NEBU 858593 ALBUTEROL SULFATE Inactive LEVAQUIN 500 MG TAB 1 tablet by mouth daily LEVAQUIN 500 MG TAB 907538 LEVOFLOXACIN Inactive PREDNISONE 20 MG TAB 2 tabs daily for 4 days, 1 tab daily for 4 days, 1/2 tab daily for 4 days PREDNISONE 20 MG TAB 536657 PREDNISONE Inactive ZITHROMAX 1 GM ORAL PACK DIRECTED ZITHROMAX 1 GM ORAL PACK 251117 AZITHROMYCIN Inactive LEVAQUIN 500 MG TAB 1 tablet by mouth daily for 10 days. LEVAQUIN 500 MG TAB 681635 LEVOFLOXACIN Inactive PREDNISONE 20 MG ORAL TABS 3 TABS PO FOR 3 DAYS,THAN 2 TABS FOR 3 DAYS THAN, 1 TAB FOR 3 DAYS THAN, 1/2 TAB FOR 3 DAYS. PREDNISONE 20 MG ORAL TABS 572421 PREDNISONE Inactive PREDNISONE 20 MG ORAL TABS 3 daily for 3 days than, 2 tabs daily for 3 days than, 2 tabs daily for 3 days than, 1 tab daily for 3 days than 1/2 tab daily for 3 days. PREDNISONE 20 MG ORAL TABS 834625 PREDNISONE Inactive AMOXICILLIN 500 MG ORAL TABS Take one by mouth 3 times daily, morning, afternoon and evening.] AMOXICILLIN 500 MG ORAL TABS 107324 AMOXICILLIN Inactive LEVAQUIN 500 MG TAB 1 tablet by mouth daily LEVAQUIN 500 MG TAB 750026 LEVOFLOXACIN Inactive LEVAQUIN 500 MG TAB 1 tablet by mouth daily LEVAQUIN 500 MG TAB 082607 LEVOFLOXACIN Inactive PREDNISONE 20 MG ORAL TABS 3 tabs po for 3 days than,2 tabs po for 3 days,1 tab po for 3 days, 1/2 tab po for 3 days. PREDNISONE 20 MG ORAL TABS 092505 PREDNISONE Inactive ZITHROMAX 250 MG TAB 2 po today, then 1 po q days 2-5 ZITHROMAX 250 MG TAB 7750990 AZITHROMYCIN Inactive PREDNISONE 20 MG TAB 2 tabs daily for 3 days, 1 tab daily for 3 days, 1/2 tab daily for 2 days PREDNISONE 20 MG TAB 650215 PREDNISONE Inactive KEFLEX 500 MG CAP 1 po TID x 7 days KEFLEX 500 MG CAP 446665 CEPHALEXIN Inactive LEVOFLOXACIN 500 MG ORAL TABS take 1 tab po qday LEVOFLOXACIN 500 MG ORAL TABS 904843 LEVOFLOXACIN Inactive PREDNISONE 20 MG TAB 2 tabs daily for 3 days, 1 tab daily for 3 days, 1/2 tab daily for 2 days PREDNISONE 20 MG TAB 644646 PREDNISONE Inactive DOXYCYCLINE HYCLATE 100 MG CAP 1 cap by mouth twice daily DOXYCYCLINE HYCLATE 100 MG CAP 0588970 DOXYCYCLINE HYCLATE Inactive PREDNISONE 20 MG TAB take 3 tabs daily for 3 days, 2 tabs daily for 3 days, 1 tab daily for 3 days, 1/2 tab daily for 3 days PREDNISONE 20 MG TAB 085597 PREDNISONE Inactive PREDNISONE 20 MG TAB take 3 tabs daily for 3 days, 2 tabs daily for 3 days, 1 tab daily for 3 days, 1/2 tab daily for 3 days PREDNISONE 20 MG TAB 514529 PREDNISONE Inactive PREDNISONE 20 MG TAB take 3 tabs daily for 3 days, 2 tabs daily for 3 days, 1 tab daily for 3 days, 1/2 tab daily for 3 days PREDNISONE 20 MG TAB 761963 PREDNISONE Inactive Advance Directives Directive Description Start [...] Peptide - Chemistry sodium, serum 140 mmol/L 328-125 9353/02/09 carbon dioxide, venous blood 39.2 mmol/L 21.0-32.0 [...] 43.52 m[iU]/mL 0.36-3.74 sodium, serum 140 mmol/L 725-235 9760/04/06 carbon dioxide, venous blood 36.3 mmol/L 21.0-32.0 potassium, serum 4.9 mmol/L 3.5-5.2 chloride, serum 100 mmol/L 98-107 blood glucose 62 mg/dL 65-110 urea nitrogen, blood 24 mg/dL 7-18 creatinine, serum 1.09 mg/dL 0.55-1.30 alanine aminotransferase (SGPT), serum 44 U/L 12-78 aspartate aminotransferase (SGOT), serum 25 U/L 15-37 calcium, serum 8.7 mg/dL 8.5-10.1 bilirubin, serum, total 0.50 mg/dL 0.00-1.00 cholesterol, serum 189 mg/dL 231-020 4220/04/06 triglyceride, serum, fasting 117 mg/dL 30-200 HDL [...] 142-424 Encounters Code Encounter Date Provider Facility CPT-48049 Level 4 Est. Patient 17:54:41 HOG COUNTER Austin Albarado MD [facility] CPT-02299 Level 4 Est. Patient 16:11:14 HOG COUNTER Austin Albarado MD [facility] CPT-15646 Level 4 Est. Patient 23:08:56 CDT Austin Albarado MD [facility] CPT-44815 Level 4 Est. Patient 13:27:28 CDT Garcia Stroud MD [facility] CPT-86359 Level 4 Est. Patient 10:51:20 CDT Austin Albarado MD [facility] CPT-93392 Level 4 Est. Patient 20:09:43 HOG COUNTER Austin Albarado MD [facility] CPT-26958 Level 4 Est. Patient 21:00:28 CDT Austin Albarado MD [facility] CPT-30052 Level 4 Est. Patient 10:03:37 CDT Austin Albarado MD [facility] CPT-99081 Level 3 Est. Patient 10:50:28 HOG COUNTER Austin Albarado MD [facility] CPT-84509 Level 4 Est. Patient 21:31:41 HOG COUNTER Austin Albarado MD [facility] CPT-53867 Level 3 Est. Patient 16:22:54 HOG COUNTER Jann Law DO [facility] CPT-39900 Level 3 Est. Patient 11:04:53 HOG COUNTER Tristan Vaughn MD [facility] CPT-16859 Level 4 Est. Patient 09:50:59 CDT Austin Albarado MD [facility] CPT-74358 Level 4 Est. Patient 09:29:00 CDT Austin Albarado MD [facility] CPT-31628 Level 4 Est. Patient 14:23:07 CDT Austin Albarado MD [facility] CPT-19008 Level 4 Est. Patient 14:27:26 CDT Austin Albarado MD [facility] CPT-83902 Level 4 Est. Patient 12:51:43 HOG COUNTER Austin Albarado MD [facility] CPT-09862 Level 3 New Patient 14:17:38 HOG COUNTER Austin Albarado MD [facility] CPT-94912 Level 3 New Patient 11:28:18 HOG COUNTER Austin Albarado MD [facility] Procedures Code Procedure Name Date Entry Date Standard Description CPT-84634 No Charge Offi Visit 10:19:33 HOG COUNTER CPT-05078 Chest 2V Frontal and Lat - XRAY USE ONLY 15:01:41 HOG COUNTER CPT-69765 First Vx - Ix admin for Medicare patients 16:00:49 CDT CPT-71812 Fluzone High-Dose Intramuscular Suspension 16:00:49 CDT CPT-G0009 Administration of Pneumococcal Vaccine 13:25:27 CDT CPT-08977 Prevnar 13 Intramuscular Suspension 13:25:27 CDT 09/26 CPT-G0438 Initial Annual Wellness Exam 11:28:26 CDT CPT-38572 Chest 2V Frontal and Lat 15:00:00 HOG COUNTER CPT-31463 Breathing Tx 14:49:25 HOG COUNTER CPT-78281 Fluzone High Dose 15:08:41 HOG COUNTER CPT-32197 Immunization Single Admin 15:08:41 HOG COUNTER CPT-49758 Fluzone High Dose 17:31:19 CDT CPT-39470 Administration single or combination vaccine inc oral 17 :31:19 CDT CPT-74764 Venipuncture Draw Fee 11:03:05 CDT CPT-TCMM Transitional Care Mgmt-Moderate 16:32:35 CDT CPT-17388 Chest 2V Frontal and Lat 11:51:09 CDT CPT-G0008 Administration of Influenza Virus Vaccine 15:09:08 CDT CPT-70665 Fluzone High-Dose Intramuscular Suspension 15:09:08 CDT CPT-08612 Administration single or combination vaccine inc oral 17 :07:02 HOG COUNTER CPT-27011 Influenza High Dose age 65+ 17:07:02 HOG COUNTER
--- OUTSIDE RECORDS SUMMARY | 2017-02-27 22:22 | XMS REPORT | Clinical Summary ---
Author Author Admin, E Organization [employer] 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 ALBUTEROL SULFATE 78511373783 Active Nella José LPN Active IPRATROPIUM BROMIDE 0.02 % INH SOLN 1 q 6 hr PRN Dx: J44.1 IPRATROPIUM BROMIDE 34023830697 Active Nella José LPN Active PROAIR HFA 108 (90 BASE) MCG/ACT AERS take 1-2 puffs q 4-6 hrs prn cough/ SOB ALBUTEROL SULFATE 48698906464 Active Nella José LPN Active IPRATROPIUM-ALBUTEROL 0.5-2.5 (3) MG/3ML SOLN 1 VIAL NEB Q 4-6 HRS PRN 04/18 IPRATROPIUM-ALBUTEROL 72362552245 No Longer Active Austin Albarado MD Active ATIVAN 0.5 MG TAB 1 po QD PRN Anxiety LORAZEPAM 53349359346 Active Nella José LPN Active PREDNISONE 20 MG ORAL TABS 3 tabs po for 3 days than,2 tabs po for 3 days,1 tab po for 3 days, 1/2 tab po for 3 days. PREDNISONE 82474319620 No Longer Active Simona Galloway APRN Active LEVAQUIN 500 MG TAB 1 tablet by mouth daily LEVOFLOXACIN 10110615865 No Longer Active Simona Galloway APRN Active PREDNISONE 20 MG TAB take 3 tabs daily for 3 days, 2 tabs daily for 3 days, 1 tab daily for 3 days, 1/2 tab daily for 3 days PREDNISONE 60649168647 No Longer Active Austin Albarado MD Active LEVAQUIN 500 MG TAB 1 tablet by mouth daily LEVOFLOXACIN 28163036968 No Longer Active Madhavi Fiore Active FUROSEMIDE 20 MG TABS take 1 tab po BID for swelling FUROSEMIDE 97634018607 Active Austin Albarado MD Active AMOXICILLIN 500 MG ORAL TABS Take one by mouth 3 times daily, morning, afternoon and evening.] AMOXICILLIN 81439474038 No Longer Active Garcia Stroud MD Active PREDNISONE 20 MG ORAL TABS 3 daily for 3 days than, 2 tabs daily for 3 days than, 2 tabs daily for 3 days than, 1 tab daily for 3 days than 1/2 tab daily for 3 days. PREDNISONE 04986090314 No Longer Active [facility] APRN Active FLUTICASONE PROPIONATE 50 MCG/ACT SUSP 1 to 2 sprays each nostril daily 08/21 FLUTICASONE PROPIONATE 83236734643 Active Simona Galloway APRN Active PREDNISONE 10 MG TAB take 1 tab po qday for severe COPD PREDNISONE 01476734697 Active Austin Albarado MD Active PREDNISONE 20 MG ORAL TABS 3 TABS PO FOR 3 DAYS,THAN 2 TABS FOR 3 DAYS THAN, 1 TAB FOR 3 DAYS THAN, 1/2 TAB FOR 3 DAYS. PREDNISONE 67232022657 No Longer Active Austin Albarado MD Active LEVAQUIN 500 MG TAB 1 tablet by mouth daily for 10 days. LEVOFLOXACIN 84940460590 No Longer Active Austin Albarado MD Active PREDNISONE 20 MG TAB take 3 tabs daily for 3 days, 2 tabs daily for 3 days, 1 tab daily for 3 days, 1/2 tab daily for 3 days PREDNISONE 54388585292 No Longer Active Simona Galloway APRN Active ZITHROMAX 1 GM ORAL PACK DIRECTED AZITHROMYCIN 58358699289 No Longer Active Simona Galloway APRN Active PREDNISONE 20 MG TAB 2 tabs daily for 4 days, 1 tab daily for 4 days, 1/2 tab daily for 4 days PREDNISONE 33857069994 No Longer Active Austin Albarado MD Active LEVAQUIN 500 MG TAB 1 tablet by mouth daily LEVOFLOXACIN 59219922719 No Longer Active Austin Albarado MD Active PREDNISONE 20 MG TAB take 3 tabs daily for 3 days, 2 tabs daily for 3 days, 1 tab daily for 3 days, 1/2 tab daily for 3 days PREDNISONE 14293602918 No Longer Active Austin Albarado MD Active DOXYCYCLINE HYCLATE 100 MG CAP 1 cap by mouth twice daily DOXYCYCLINE HYCLATE 02740042531 No Longer Active Esperanza Modi APRN Active ALBUTEROL SULFATE (2.5 MG/3ML) 0.083% NEBU nebulize 1 vial q 4-6 hours prn shortness of breath ALBUTEROL SULFATE 59730828658 No Longer Active Esperanza Modi APRN Active TORSEMIDE 20 MG TABS 1 TAB PO BID TORSEMIDE 75277797571 No Longer Active Esperanza Modi APRN Active PREDNISONE 20 MG TAB 2 tabs daily for 3 days, 1 tab daily for 3 days, 1/2 tab daily for 2 days PREDNISONE 98311170111 No Longer Active Austin Albarado MD Active LEVOFLOXACIN 500 MG ORAL TABS take 1 tab po qday LEVOFLOXACIN 32529909746 No Longer Active Austin Albarado MD Active PREDNISONE 20 MG TAB 2 tablets today, then 1 tablet by mouth days 2-5 PREDNISONE 00454611301 No Longer Active Austin Albarado MD Active AZITHROMYCIN 500 MG SOLR 1 po q day AZITHROMYCIN 94819576291 No Longer Active Austin Albarado MD Active KEFLEX 500 MG CAP 1 po TID x 7 days CEPHALEXIN 54728070687 No Longer Active Tristan Vaughn MD Active EQL VISION FORMULA TABS 1 TAB PO DAILY MULTIPLE VITAMINS-MINERALS 67247904399 No Longer Active Tristan Vaughn MD Active CHANTIX STARTING MONTH ELVIS 0.5 MG X 11 & 1 MG X 42 TABS 0.5mg daily for 3 days , then 0.5mg BID for 4 days, then 1mg BID VARENICLINE TARTRATE 47868247982 No Longer Active Tristan Vaughn MD Active LEVOTHYROXINE SODIUM 200 MCG TABS 1 TAB PO DAILY LEVOTHYROXINE SODIUM 05875946625 No Longer Active Tristan Vaughn MD Active LIOTHYRONINE SODIUM 50 MCG TABS take 1 tab po qday for hypothyroidism LIOTHYRONINE SODIUM 79474379270 No Longer Active Austin Albarado MD Active SYNTHROID 0.025 MG TAB 1 tablet by mouth daily LEVOTHYROXINE SODIUM 38587089457 No Longer Active Austin Albarado MD Active ARMOUR THYROID 120 MG TABS take 1 tab po qday for hypothyroidism THYROID 69486260694 Active Austin Albarado MD Active FLONASE 50 MCG/ACT SUSP 1 spray each nostril am and hs FLUTICASONE PROPIONATE Active Simona Galloway APRN Active ZITHROMAX 1 GM PACK DIRECTED AZITHROMYCIN 95536207794 No Longer Active Austin Albarado MD Active PREDNISONE 20 MG TAB 2 tabs daily for 3 days, 1 tab daily for 3 days, 1/2 tab daily for 2 days PREDNISONE 15380875596 No Longer Active Austin Albarado MD Active ZITHROMAX 250 MG TAB 2 po today, then 1 po q days 2-5 AZITHROMYCIN 70220737348 No Longer Active Austin Albarado MD Active NYSTATIN-TRIAMCINOLONE 234576-8.1 UNIT/GM-% OINT Apply to affected area TID NYSTATIN-TRIAMCINOLONE 45552787022 Active Austin Albarado MD Active ADVAIR DISKUS 500-50 MCG/DOSE AEPB ONE INH BID FLUTICASONE- SALMETEROL 48056223996 Active Austin Albarado MD Active ZITHROMAX 1 GM PACK DIRECTED ZITHROMAX 1 GM PACK 482867 AZITHROMYCIN Inactive SYNTHROID 0.025 MG TAB 1 tablet by mouth daily SYNTHROID 0.025 MG TAB 949350 LEVOTHYROXINE SODIUM Inactive LIOTHYRONINE SODIUM 50 MCG TABS take 1 tab po qday for hypothyroidism LIOTHYRONINE SODIUM 50 MCG TABS 531461 LIOTHYRONINE SODIUM Inactive LEVOTHYROXINE SODIUM 200 MCG TABS 1 TAB PO DAILY LEVOTHYROXINE SODIUM 200 MCG TABS 250014 LEVOTHYROXINE SODIUM Inactive CHANTIX STARTING MONTH ELVIS [...] po q day AZITHROMYCIN 500 MG SOLR 31087720609 AZITHROMYCIN Inactive PREDNISONE 20 MG TAB 2 tablets today, then 1 tablet by mouth days 2-5 PREDNISONE 20 MG TAB 890399 PREDNISONE Inactive TORSEMIDE 20 MG TABS 1 TAB PO BID TORSEMIDE 20 MG TABS 189220 TORSEMIDE Inactive ALBUTEROL SULFATE (2.5 MG/3ML) 0.083% NEBU nebulize 1 vial q 4-6 hours prn shortness of breath ALBUTEROL SULFATE (2.5 MG/3ML) 0.083% NEBU 265213 ALBUTEROL SULFATE Inactive LEVAQUIN 500 MG TAB 1 tablet by mouth daily LEVAQUIN 500 MG TAB 491381 LEVOFLOXACIN Inactive PREDNISONE 20 MG TAB 2 tabs daily for 4 days, 1 tab daily for 4 days, 1/2 tab daily for 4 days PREDNISONE 20 MG TAB 906329 PREDNISONE Inactive ZITHROMAX 1 GM ORAL PACK DIRECTED ZITHROMAX 1 GM ORAL PACK 091432 AZITHROMYCIN Inactive LEVAQUIN 500 MG TAB 1 tablet by mouth daily for 10 days. LEVAQUIN 500 MG TAB 782450 LEVOFLOXACIN Inactive PREDNISONE 20 MG ORAL TABS 3 TABS PO FOR 3 DAYS,THAN 2 TABS FOR 3 DAYS THAN, 1 TAB FOR 3 DAYS THAN, 1/2 TAB FOR 3 DAYS. PREDNISONE 20 MG ORAL TABS 588355 PREDNISONE Inactive PREDNISONE 20 MG ORAL TABS 3 daily for 3 days than, 2 tabs daily for 3 days than, 2 tabs daily for 3 days than, 1 tab daily for 3 days than 1/2 tab daily for 3 days. PREDNISONE 20 MG ORAL TABS 200895 PREDNISONE Inactive AMOXICILLIN 500 MG ORAL TABS Take one by mouth 3 times daily, morning, afternoon and evening.] AMOXICILLIN 500 MG ORAL TABS 819258 AMOXICILLIN Inactive LEVAQUIN 500 MG TAB 1 tablet by mouth daily LEVAQUIN 500 MG TAB 802945 LEVOFLOXACIN Inactive LEVAQUIN 500 MG TAB 1 tablet by mouth daily LEVAQUIN 500 MG TAB 857000 LEVOFLOXACIN Inactive PREDNISONE 20 MG ORAL TABS 3 tabs po for 3 days than,2 tabs po for 3 days,1 tab po for 3 days, 1/2 tab po for 3 days. PREDNISONE 20 MG ORAL TABS 119035 PREDNISONE Inactive ZITHROMAX 250 MG TAB 2 po today, then 1 po q days 2-5 ZITHROMAX 250 MG TAB 0353975 AZITHROMYCIN Inactive PREDNISONE 20 MG TAB 2 tabs daily for 3 days, 1 tab daily for 3 days, 1/2 tab daily for 2 days PREDNISONE 20 MG TAB 497832 PREDNISONE Inactive KEFLEX 500 MG CAP 1 po TID x 7 days KEFLEX 500 MG CAP 162034 CEPHALEXIN Inactive LEVOFLOXACIN 500 MG ORAL TABS take 1 tab po qday LEVOFLOXACIN 500 MG ORAL TABS 447576 LEVOFLOXACIN Inactive PREDNISONE 20 MG TAB 2 tabs daily for 3 days, 1 tab daily for 3 days, 1/2 tab daily for 2 days PREDNISONE 20 MG TAB 172251 PREDNISONE Inactive DOXYCYCLINE HYCLATE 100 MG CAP 1 cap by mouth twice daily DOXYCYCLINE HYCLATE 100 MG CAP 8306042 DOXYCYCLINE HYCLATE Inactive PREDNISONE 20 MG TAB take 3 tabs daily for 3 days, 2 tabs daily for 3 days, 1 tab daily for 3 days, 1/2 tab daily for 3 days PREDNISONE 20 MG TAB 035309 PREDNISONE Inactive PREDNISONE 20 MG TAB take 3 tabs daily for 3 days, 2 tabs daily for 3 days, 1 tab daily for 3 days, 1/2 tab daily for 3 days PREDNISONE 20 MG TAB 058231 PREDNISONE Inactive PREDNISONE 20 MG TAB take 3 tabs daily for 3 days, 2 tabs daily for 3 days, 1 tab daily for 3 days, 1/2 tab daily for 3 days PREDNISONE 20 MG TAB 496457 PREDNISONE Inactive Advance Directives Directive Description Start [...] Peptide - Chemistry sodium, serum 140 mmol/L 430-900 4501/02/09 carbon dioxide, venous blood 39.2 mmol/L 21.0-32.0 [...] 43.52 m[iU]/mL 0.36-3.74 sodium, serum 140 mmol/L 914-448 3771/04/06 carbon dioxide, venous blood 36.3 mmol/L 21.0-32.0 potassium, serum 4.9 mmol/L 3.5-5.2 chloride, serum 100 mmol/L 98-107 blood glucose 62 mg/dL 65-110 urea nitrogen, blood 24 mg/dL 7-18 creatinine, serum 1.09 mg/dL 0.55-1.30 alanine aminotransferase (SGPT), serum 44 U/L 12-78 aspartate aminotransferase (SGOT), serum 25 U/L 15-37 calcium, serum 8.7 mg/dL 8.5-10.1 bilirubin, serum, total 0.50 mg/dL 0.00-1.00 cholesterol, serum 189 mg/dL 191-413 3008/04/06 triglyceride, serum, fasting 117 mg/dL 30-200 HDL [...] 142-424 Encounters Code Encounter Date Provider Facility CPT-18521 Level 4 Est. Patient 17:54:41 RADIOGRAPHER ANGIOGRAM Austin Albarado MD [facility]-86102 Level 4 Est. Patient 16:11:14 RADIOGRAPHER ANGIOGRAM Austin Albarado MD [facility]-59784 Level 4 Est. Patient 23:08:56 CDT Austin Albarado MD [facility]-51938 Level 4 Est. Patient 13:27:28 CDT Garcia Stroud MD [facility]-03228 Level 4 Est. Patient 10:51:20 CDT Austin Albarado MD [facility]-49260 Level 4 Est. Patient 20:09:43 RADIOGRAPHER ANGIOGRAM Austin Albarado MD [facility]-76499 Level 4 Est. Patient 21:00:28 CDT Austin Albarado MD [facility] CPT-79736 Level 4 Est. Patient 10:03:37 CDT Austin Albarado MD [facility] CPT-76495 Level 3 Est. Patient 10:50:28 RADIOGRAPHER ANGIOGRAM Austin Albarado MD [facility] CPT-16929 Level 4 Est. Patient 21:31:41 RADIOGRAPHER ANGIOGRAM Austin Albarado MD [facility] CPT-30336 Level 3 Est. Patient 16:22:54 RADIOGRAPHER ANGIOGRAM Jann Law DO [facility] CPT-85398 Level 3 Est. Patient 11:04:53 RADIOGRAPHER ANGIOGRAM Tristan Vaughn MD [facility] CPT-47893 Level 4 Est. Patient 09:50:59 CDT Austin Albarado MD [facility] CPT-08082 Level 4 Est. Patient 09:29:00 CDT Austin Albarado MD [facility]-69516 Level 4 Est. Patient 14:23:07 CDT Austin Albarado MD [facility] CPT-67664 Level 4 Est. Patient 14:27:26 CDT Austin Albarado MD [facility] CPT-18954 Level 4 Est. Patient 12:51:43 RADIOGRAPHER ANGIOGRAM Austin Albarado MD [facility] CPT-51726 Level 3 New Patient 14:17:38 RADIOGRAPHER ANGIOGRAM Austin Albarado MD [facility] CPT-51063 Level 3 New Patient 11:28:18 RADIOGRAPHER ANGIOGRAM Austin Albarado MD [facility] Procedures Code Procedure Name Date Entry Date Standard Description CPT-TCMM Transitional Care Mgmt-Moderate 14:53:36 RADIOGRAPHER ANGIOGRAM CPT-75604 No Charge Offi Visit 10:19:33 RADIOGRAPHER ANGIOGRAM CPT-05797 Chest 2V Frontal and Lat - XRAY USE ONLY 15:01:41 RADIOGRAPHER ANGIOGRAM CPT-84604 First Vx - Ix admin for Medicare patients 16:00:49 CDT CPT-97015 Fluzone High-Dose Intramuscular Suspension 16:00:49 CDT CPT-G0009 Administration of Pneumococcal Vaccine 13:25:27 CDT CPT-69183 Prevnar 13 Intramuscular Suspension 13:25:27 CDT 09/26 CPT-G0438 Initial Annual Wellness Exam 11:28:26 CDT CPT-49303 Chest 2V Frontal and Lat 15:00:00 RADIOGRAPHER ANGIOGRAM CPT-26354 Breathing Tx 14:49:25 RADIOGRAPHER ANGIOGRAM CPT-66775 Fluzone High Dose 15:08:41 RADIOGRAPHER ANGIOGRAM CPT-64118 Immunization Single Admin 15:08:41 RADIOGRAPHER ANGIOGRAM CPT-42910 Fluzone High Dose 17:31:19 CDT CPT-03536 Administration single or combination vaccine inc oral 17 :31:19 CDT CPT-04451 Venipuncture Draw Fee 11:03:05 CDT CPT-TCMM Transitional Care Mgmt-Moderate 16:32:35 CDT CPT-27688 Chest 2V Frontal and Lat 11:51:09 CDT CPT-G0008 Administration of Influenza Virus Vaccine 15:09:08 CDT CPT-87729 Fluzone High-Dose Intramuscular Suspension 15:09:08 CDT CPT-70369 Administration single or combination vaccine inc oral 17 :07:02 RADIOGRAPHER ANGIOGRAM CPT-68021 Influenza High Dose age 65+ 17:07:02 RADIOGRAPHER ANGIOGRAM
--- OUTSIDE RECORDS SUMMARY | 2017-02-27 22:22 | XMS REPORT | Clinical Summary ---
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 Tracie Arrington M[employer] DAT[employer]ASE DEVELOPER Chronic airway obstruction, not elsewhere classified Family history of myocardial infarction V17.3 Active Tracie Arrington M[employer] DAT[employer] DEVELOPER Family history of ischemic heart disease CAD 414.00 Active Tracie Arrington M[employer] DAT[employer] DEVELOPER Coronary atherosclerosis of unspecified type of vessel, gulkana or graft Peripheral edema 782.3 Active Austin [...] Albarado MD 06/13 Bronchitis-Acute ICD-466.0 Inactive Austin Albardao MD Medication List Medication Instructions Start Date Stop Date Generic Name ND Status Provider Patient Instruction ACYCLOVIR 400 MG TABS 1 pill three times daily ACYCLOVIR 48531476432 No Longer Active Austin Albarado MD Active ALBUTEROL SULFATE 0.083 % NEBU SOLN one vial per nebulizer every 4 hours as needed Dx. J44.1 ALBUTEROL SULFATE 66658671721 Active Austin Albarado MD Active IPRATROPIUM BROMIDE 0.02 % INH SOLN 1 q 6 hr PRN Dx: J44.1 IPRATROPIUM BROMIDE 05817865653 Active Nella José LPN Active PROAIR HFA 108 (90 BASE) MCG/ACT AERS take 1-2 puffs q 4-6 hrs prn cough/ SOB ALBUTEROL SULFATE 69445590714 Active Nella José LPN Active IPRATROPIUM-ALBUTEROL 0.5-2.5 (3) MG/3ML SOLN 1 VIAL NEB Q 4-6 HRS PRN 04/18 IPRATROPIUM-ALBUTEROL 54982523973 No Longer Active Austin Albarado MD Active ATIVAN 0.5 MG TAB 1 po QD PRN Anxiety LORAZEPAM 13265922407 Active Simona Galloway APRN Active PREDNISONE 20 MG ORAL TABS 3 tabs po for 3 days than,2 tabs po for 3 days,1 tab po for 3 days, 1/2 tab po for 3 days. PREDNISONE 21066613553 No Longer Active Simona Galloway APRN Active LEVAQUIN 500 MG TAB 1 tablet by mouth daily LEVOFLOXACIN 30915792943 No Longer Active Simona Galloway APRN Active PREDNISONE 20 MG TAB take 3 tabs daily for 3 days, 2 tabs daily for 3 days, 1 tab daily for 3 days, 1/2 tab daily for 3 days PREDNISONE 60674889192 No Longer Active Austin Albarado MD Active LEVAQUIN 500 MG TAB 1 tablet by mouth daily LEVOFLOXACIN 12999277195 No Longer Active Madhavi Fiore Active FUROSEMIDE 20 MG TABS take 1 tab po BID for swelling FUROSEMIDE 19806003780 Active Austin Albarado MD Active AMOXICILLIN 500 MG ORAL TABS Take one by mouth 3 times daily, morning, afternoon and evening.] AMOXICILLIN 21843318210 No Longer Active Garcia Stroud MD Active PREDNISONE 20 MG ORAL TABS 3 daily for 3 days than, 2 tabs daily for 3 days than, 2 tabs daily for 3 days than, 1 tab daily for 3 days than 1/2 tab daily for 3 days. PREDNISONE 08554818200 No Longer Active Tracie Arrington APRN Active FLUTICASONE PROPIONATE 50 MCG/ACT SUSP 1 to 2 sprays each nostril daily 08/21 FLUTICASONE PROPIONATE 04600000849 Active Simona Galloway APRN Active PREDNISONE 10 MG TAB take 1 tab po qday for severe COPD PREDNISONE 53816350966 Active Austin Albarado MD Active PREDNISONE 20 MG ORAL TABS 3 TABS PO FOR 3 DAYS,THAN 2 TABS FOR 3 DAYS THAN, 1 TAB FOR 3 DAYS THAN, 1/2 TAB FOR 3 DAYS. PREDNISONE 02674358603 No Longer Active Austin Albarado MD Active LEVAQUIN 500 MG TAB 1 tablet by mouth daily for 10 days. LEVOFLOXACIN 35495221791 No Longer Active Austin Albarado MD Active PREDNISONE 20 MG TAB take 3 tabs daily for 3 days, 2 tabs daily for 3 days, 1 tab daily for 3 days, 1/2 tab daily for 3 days PREDNISONE 38164045668 No Longer Active Simona Galloway APRN Active ZITHROMAX 1 GM ORAL PACK DIRECTED AZITHROMYCIN 40404841899 No Longer Active Simona Galloway APRN Active PREDNISONE 20 MG TAB 2 tabs daily for 4 days, 1 tab daily for 4 days, 1/2 tab daily for 4 days PREDNISONE 46350198657 No Longer Active Austin Albarado MD Active LEVAQUIN 500 MG TAB 1 tablet by mouth daily LEVOFLOXACIN 12710875370 No Longer Active Austin Albarado MD Active PREDNISONE 20 MG TAB take 3 tabs daily for 3 days, 2 tabs daily for 3 days, 1 tab daily for 3 days, 1/2 tab daily for 3 days PREDNISONE 76438793708 No Longer Active Austin Albarado MD Active DOXYCYCLINE HYCLATE 100 MG CAP 1 cap by mouth twice daily DOXYCYCLINE HYCLATE 98264441533 No Longer Active Esperanza Modi APRN Active ALBUTEROL SULFATE (2.5 MG/3ML) 0.083% NEBU nebulize 1 vial q 4-6 hours prn shortness of breath ALBUTEROL SULFATE 51281866832 No Longer Active Esperanza Modi APRN Active TORSEMIDE 20 MG TABS 1 TAB PO BID TORSEMIDE 89643700455 No Longer Active Jillina Frazeldemario M[employer] DAT[employer] DEVELOPER Active PREDNISONE 20 MG TAB 2 tabs daily for 3 days, 1 tab daily for 3 days, 1/2 tab daily for 2 days PREDNISONE 23596137854 No Longer Active Austin Albarado MD Active LEVOFLOXACIN 500 MG ORAL TABS take 1 tab po qday LEVOFLOXACIN 22227372861 No Longer Active Austin Albarado MD Active PREDNISONE 20 MG TAB 2 tablets today, then 1 tablet by mouth days 2-5 PREDNISONE 40634758706 No Longer Active Austin Albarado MD Active AZITHROMYCIN 500 MG SOLR 1 po q day AZITHROMYCIN 58639261627 No Longer Active Austin Albarado MD Active KEFLEX 500 MG CAP 1 po TID x 7 days CEPHALEXIN 71070484586 No Longer Active Tristan Vaughn MD Active EQL VISION FORMULA TABS 1 TAB PO DAILY MULTIPLE VITAMINS-MINERALS 52912748515 No Longer Active Tristan Vaughn MD Active CHANTIX STARTING MONTH ELVIS 0.5 MG X 11 & 1 MG X 42 TABS 0.5mg daily for 3 days , then 0.5mg BID for 4 days, then 1mg BID VARENICLINE TARTRATE 12702811062 No Longer Active Tristan Vaughn MD Active LEVOTHYROXINE SODIUM 200 MCG TABS 1 TAB PO DAILY LEVOTHYROXINE SODIUM 24652554621 No Longer Active Tristan Vaughn MD Active LIOTHYRONINE SODIUM 50 MCG TABS take 1 tab po qday for hypothyroidism LIOTHYRONINE SODIUM 75515246054 No Longer Active Austin Albarado MD Active SYNTHROID 0.025 MG TAB 1 tablet by mouth daily LEVOTHYROXINE SODIUM 34460788092 No Longer Active Austin Albarado MD Active ARMOUR THYROID 120 MG TABS take 1 tab po qday for hypothyroidism THYROID 28896428724 Active Austin Albarado MD Active FLONASE 50 MCG/ACT SUSP 1 spray each nostril am and hs FLUTICASONE PROPIONATE Active Simona Galloway APRN Active ZITHROMAX 1 GM PACK DIRECTED AZITHROMYCIN 90568308620 No Longer Active Austin Albarado MD Active PREDNISONE 20 MG TAB 2 tabs daily for 3 days, 1 tab daily for 3 days, 1/2 tab daily for 2 days PREDNISONE 14177327641 No Longer Active Austin Albarado MD Active ZITHROMAX 250 MG TAB 2 po today, then 1 po q days 2-5 AZITHROMYCIN 44690121648 No Longer Active Austin Albarado MD Active NYSTATIN-TRIAMCINOLONE 441788-2.1 UNIT/GM-% OINT Apply to affected area TID NYSTATIN-TRIAMCINOLONE 04660554287 Active Austin Albarado MD Active ADVAIR DISKUS 500-50 MCG/DOSE AEPB ONE INH BID FLUTICASONE- SALMETEROL 29223541580 Active Austin Albarado MD Active ZITHROMAX 1 GM PACK DIRECTED ZITHROMAX 1 GM PACK 379901 AZITHROMYCIN Inactive SYNTHROID 0.025 MG TAB 1 tablet by mouth daily SYNTHROID 0.025 MG TAB 927221 LEVOTHYROXINE SODIUM Inactive LIOTHYRONINE SODIUM 50 MCG TABS take 1 tab po qday for hypothyroidism LIOTHYRONINE SODIUM 50 MCG TABS 309513 LIOTHYRONINE SODIUM Inactive LEVOTHYROXINE SODIUM 200 MCG TABS 1 TAB PO DAILY LEVOTHYROXINE SODIUM 200 MCG TABS 623010 LEVOTHYROXINE SODIUM Inactive CHANTIX STARTING MONTH ELVIS [...] po q day AZITHROMYCIN 500 MG SOLR 15645831690 AZITHROMYCIN Inactive PREDNISONE 20 MG TAB 2 tablets today, then 1 tablet by mouth days 2-5 PREDNISONE 20 MG TAB 889513 PREDNISONE Inactive TORSEMIDE 20 MG TABS 1 TAB PO BID TORSEMIDE 20 MG TABS 339969 TORSEMIDE Inactive ALBUTEROL SULFATE (2.5 MG/3ML) 0.083% NEBU nebulize 1 vial q 4-6 hours prn shortness of breath ALBUTEROL SULFATE (2.5 MG/3ML) 0.083% NEBU 948241 ALBUTEROL SULFATE Inactive LEVAQUIN 500 MG TAB 1 tablet by mouth daily LEVAQUIN 500 MG TAB 783283 LEVOFLOXACIN Inactive PREDNISONE 20 MG TAB 2 tabs daily for 4 days, 1 tab daily for 4 days, 1/2 tab daily for 4 days PREDNISONE 20 MG TAB 315469 PREDNISONE Inactive ZITHROMAX 1 GM ORAL PACK DIRECTED ZITHROMAX 1 GM ORAL PACK 431520 AZITHROMYCIN Inactive LEVAQUIN 500 MG TAB 1 tablet by mouth daily for 10 days. LEVAQUIN 500 MG TAB 238906 LEVOFLOXACIN Inactive PREDNISONE 20 MG ORAL TABS 3 TABS PO FOR 3 DAYS,THAN 2 TABS FOR 3 DAYS THAN, 1 TAB FOR 3 DAYS THAN, 1/2 TAB FOR 3 DAYS. PREDNISONE 20 MG ORAL TABS 534457 PREDNISONE Inactive PREDNISONE 20 MG ORAL TABS 3 daily for 3 days than, 2 tabs daily for 3 days than, 2 tabs daily for 3 days than, 1 tab daily for 3 days than 1/2 tab daily for 3 days. PREDNISONE 20 MG ORAL TABS 883368 PREDNISONE Inactive AMOXICILLIN 500 MG ORAL TABS Take one by mouth 3 times daily, morning, afternoon and evening.] AMOXICILLIN 500 MG ORAL TABS 872555 AMOXICILLIN Inactive LEVAQUIN 500 MG TAB 1 tablet by mouth daily LEVAQUIN 500 MG TAB 898121 LEVOFLOXACIN Inactive LEVAQUIN 500 MG TAB 1 tablet by mouth daily LEVAQUIN 500 MG TAB 559712 LEVOFLOXACIN Inactive PREDNISONE 20 MG ORAL TABS 3 tabs po for 3 days than,2 tabs po for 3 days,1 tab po for 3 days, 1/2 tab po for 3 days. PREDNISONE 20 MG ORAL TABS 362868 PREDNISONE Inactive ZITHROMAX 250 MG TAB 2 po today, then 1 po q days 2-5 ZITHROMAX 250 MG TAB 9545019 AZITHROMYCIN Inactive PREDNISONE 20 MG TAB 2 tabs daily for 3 days, 1 tab daily for 3 days, 1/2 tab daily for 2 days PREDNISONE 20 MG TAB 411135 PREDNISONE Inactive KEFLEX 500 MG CAP 1 po TID x 7 days KEFLEX 500 MG CAP 387449 CEPHALEXIN Inactive LEVOFLOXACIN 500 MG ORAL TABS take 1 tab po qday LEVOFLOXACIN 500 MG ORAL TABS 995843 LEVOFLOXACIN Inactive PREDNISONE 20 MG TAB 2 tabs daily for 3 days, 1 tab daily for 3 days, 1/2 tab daily for 2 days PREDNISONE 20 MG TAB 621503 PREDNISONE Inactive DOXYCYCLINE HYCLATE 100 MG CAP 1 cap by mouth twice daily DOXYCYCLINE HYCLATE 100 MG CAP 6974345 DOXYCYCLINE HYCLATE Inactive PREDNISONE 20 MG TAB take 3 tabs daily for 3 days, 2 tabs daily for 3 days, 1 tab daily for 3 days, 1/2 tab daily for 3 days PREDNISONE 20 MG TAB 627830 PREDNISONE Inactive PREDNISONE 20 MG TAB take 3 tabs daily for 3 days, 2 tabs daily for 3 days, 1 tab daily for 3 days, 1/2 tab daily for 3 days PREDNISONE 20 MG TAB 254736 PREDNISONE Inactive PREDNISONE 20 MG TAB take 3 tabs daily for 3 days, 2 tabs daily for 3 days, 1 tab daily for 3 days, 1/2 tab daily for 3 days PREDNISONE 20 MG TAB 549600 PREDNISONE Inactive ACYCLOVIR 400 MG TABS 1 pill three times daily ACYCLOVIR 400 MG TABS 514053 ACYCLOVIR Inactive Advance Directives Directive Description Start [...] Peptide - Chemistry sodium, serum 140 mmol/L 784-010 6561/02/09 carbon dioxide, venous blood 39.2 mmol/L 21.0-32.0 [...] 0.00-1.00 Encounters Code Encounter Date Provider Facility CPT-08721 Level 4 Est. Patient 13:31:03 CDT Austin Albarado MD [facility] CPT-99527 Level 4 Est. Patient 17:54:41 OUTPATIENT CODER Austin Albarado MD [facility] CPT-09888 Level 4 Est. Patient 16:11:14 OUTPATIENT CODER Austin Albarado MD [facility]-01250 Level 4 Est. Patient 23:08:56 CDT Austin Albarado MD [facility]-74307 Level 4 Est. Patient 13:27:28 CDT Garcia Stroud MD [facility] CPT-78609 Level 4 Est. Patient 10:51:20 CDT Austin Albarado MD [facility]-21470 Level 4 Est. Patient 20:09:43 OUTPATIENT CODER Austin Albarado MD [facility] CPT-82604 Level 4 Est. Patient 21:00:28 CDT Austin Albarado MD [facility] CPT-90740 Level 4 Est. Patient 10:03:37 CDT Austin Albarado MD [facility] CPT-48649 Level 3 Est. Patient 10:50:28 OUTPATIENT CODER Austin Albarado MD [facility] CPT-86038 Level 4 Est. Patient 21:31:41 OUTPATIENT CODER Austin Albarado MD [facility] CPT-67398 Level 3 Est. Patient 16:22:54 OUTPATIENT CODER Jann Law DO [facility] CPT-57624 Level 3 Est. Patient 11:04:53 OUTPATIENT CODER Tristan Vaughn MD [facility] CPT-18854 Level 4 Est. Patient 09:50:59 CDT Austin Albarado MD [facility] CPT-91649 Level 4 Est. Patient 09:29:00 CDT Austin Albarado MD [facility] CPT-09645 Level 4 Est. Patient 14:23:07 CDT Austin Albarado MD [facility] CPT-78800 Level 4 Est. Patient 14:27:26 CDT Austin Albarado MD [facility] CPT-57007 Level 4 Est. Patient 12:51:43 OUTPATIENT CODER Austin Albarado MD [facility] CPT-35593 Level 3 New Patient 14:17:38 OUTPATIENT CODER Austin Albarado MD [facility] CPT-15415 Level 3 New Patient 11:28:18 OUTPATIENT CODER Austin Albarado MD [facility] Procedures Code Procedure Name Date Entry Date Standard Description CPT-TCMM Transitional Care Mgmt-Moderate 14:53:36 OUTPATIENT CODER CPT-40625 No Charge Offi Visit 10:19:33 OUTPATIENT CODER CPT-11698 Chest 2V Frontal and Lat - XRAY USE ONLY 15:01:41 OUTPATIENT CODER CPT-06776 First Vx - Ix admin for Medicare patients 16:00:49 CDT CPT-09336 Fluzone High-Dose Intramuscular Suspension 16:00:49 CDT CPT-G0009 Administration of Pneumococcal Vaccine 13:25:27 CDT CPT-03509 Prevnar 13 Intramuscular Suspension 13:25:27 CDT 09/26 CPT-G0438 Initial Annual Wellness Exam 11:28:26 CDT CPT-39979 Chest 2V Frontal and Lat 15:00:00 OUTPATIENT CODER CPT-49769 Breathing Tx 14:49:25 OUTPATIENT CODER CPT-54359 Fluzone High Dose 15:08:41 OUTPATIENT CODER CPT-37712 Immunization Single Admin 15:08:41 OUTPATIENT CODER CPT-44805 Fluzone High Dose 17:31:19 CDT CPT-23866 Administration single or combination vaccine inc oral 17 :31:19 CDT CPT-28120 Venipuncture Draw Fee 11:03:05 CDT CPT-TCMM Transitional Care Mgmt-Moderate 16:32:35 CDT CPT-98938 Chest 2V Frontal and Lat 11:51:09 CDT CPT-G0008 Administration of Influenza Virus Vaccine 15:09:08 CDT CPT-16318 Fluzone High-Dose Intramuscular Suspension 15:09:08 CDT CPT-71774 Administration single or combination vaccine inc oral 17 :07:02 OUTPATIENT CODER CPT-18485 Influenza High Dose age 65+ 17:07:02 OUTPATIENT CODER
--- OUTSIDE RECORDS SUMMARY | 2017-02-27 22:23 | XMS REPORT | Clinical Summary ---
Author Author Admin, E Organization [employer] Address Unknown Phone Unavailable Allergies, Adverse Reactions, [...] ischemic heart disease CAD 414.00 Active Tracie Arrintgon APRN Coronary atherosclerosis of unspecified type of vessel, pamunkey or graft Peripheral edema 782.3 Active Austin [...] 1/2 tab po for 3 days. PREDNISONE 87758768014 No Longer Active Simona Galloway APRN Active LEVAQUIN 500 MG TAB 1 tablet by mouth daily LEVOFLOXACIN 23645594296 No Longer Active Simona Galloway APRN Active PREDNISONE 20 MG TAB take 3 tabs daily for 3 days, 2 tabs daily for 3 days, 1 tab daily for 3 days, 1/2 tab daily for 3 days PREDNISONE 71286865929 No Longer Active Austin Albarado MD Active LEVAQUIN 500 MG TAB 1 tablet by mouth daily LEVOFLOXACIN 25661246072 No Longer Active Madhavi Fiore Active FUROSEMIDE 20 MG TABS take 1 tab po BID for swelling FUROSEMIDE 08631457657 Active Austin Albarado MD Active AMOXICILLIN 500 MG ORAL TABS Take one by mouth 3 times daily, morning, afternoon and evening.] AMOXICILLIN 65063237673 No Longer Active Garcia Stroud MD Active PREDNISONE 20 MG ORAL TABS 3 daily for 3 days than, 2 tabs daily for 3 days than, 2 tabs daily for 3 days than, 1 tab daily for 3 days than 1/2 tab daily for 3 days. PREDNISONE 61342957362 No Longer Active Tracie Arrington APRN Active FLUTICASONE PROPIONATE 50 MCG/ACT SUSP 1 to 2 sprays each nostril daily 08/21 FLUTICASONE PROPIONATE 91680120033 Active Simona Galloway APRN Active PREDNISONE 10 MG TAB take 1 tab po qday for severe COPD PREDNISONE 39720565021 Active Austin Albarado MD Active PREDNISONE 20 MG ORAL TABS 3 TABS PO FOR 3 DAYS,THAN 2 TABS FOR 3 DAYS THAN, 1 TAB FOR 3 DAYS THAN, 1/2 TAB FOR 3 DAYS. PREDNISONE 38332537571 No Longer Active Austin Albarado MD Active LEVAQUIN 500 MG TAB 1 tablet by mouth daily for 10 days. LEVOFLOXACIN 21359658749 No Longer Active Austin Albarado MD Active PREDNISONE 20 MG TAB take 3 tabs daily for 3 days, 2 tabs daily for 3 days, 1 tab daily for 3 days, 1/2 tab daily for 3 days PREDNISONE 73040800203 No Longer Active Simona Galloway APRN Active ZITHROMAX 1 GM ORAL PACK DIRECTED AZITHROMYCIN 37434144443 No Longer Active Simona Galloway APRN Active PREDNISONE 20 MG TAB 2 tabs daily for 4 days, 1 tab daily for 4 days, 1/2 tab daily for 4 days PREDNISONE 00479442938 No Longer Active Austin Albarado MD Active LEVAQUIN 500 MG TAB 1 tablet by mouth daily LEVOFLOXACIN 74688547019 No Longer Active Austin Albarado MD Active PREDNISONE 20 MG TAB take 3 tabs daily for 3 days, 2 tabs daily for 3 days, 1 tab daily for 3 days, 1/2 tab daily for 3 days PREDNISONE 79404686200 No Longer Active Austin Albarado MD Active DOXYCYCLINE HYCLATE 100 MG CAP 1 cap by mouth twice daily DOXYCYCLINE HYCLATE 35714578503 No Longer Active 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 BUTTER PRODUCTION SUPERVISOR Active ALBUTEROL SULFATE (2.5 MG/3ML) 0.083% NEBU nebulize 1 vial q 4-6 hours prn shortness of breath ALBUTEROL SULFATE 28796472290 No Longer Active 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 BUTTER PRODUCTION SUPERVISOR Active TORSEMIDE 20 MG TABS 1 TAB PO BID TORSEMIDE 46919040816 No Longer Active 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 BUTTER PRODUCTION SUPERVISOR Active PREDNISONE 20 MG TAB 2 tabs daily for 3 days, 1 tab daily for 3 days, 1/2 tab daily for 2 days PREDNISONE 10050677953 No Longer Active Austin Albarado MD Active LEVOFLOXACIN 500 MG ORAL TABS take 1 tab po qday LEVOFLOXACIN 47379814889 No Longer Active Austin Albarado MD Active PREDNISONE 20 MG TAB 2 tablets today, then 1 tablet by mouth days 2-5 PREDNISONE 29414414802 No Longer Active Austin Albarado MD Active AZITHROMYCIN 500 MG SOLR 1 po q day AZITHROMYCIN 72656742526 No Longer Active Austin Albarado MD Active KEFLEX 500 MG CAP 1 po TID x 7 days CEPHALEXIN 17793185586 No Longer Active Tristan Vaughn MD Active EQL VISION FORMULA TABS 1 TAB PO DAILY MULTIPLE VITAMINS-MINERALS 53012721969 No Longer Active Tristan Vaughn MD Active CHANTIX STARTING MONTH ELVIS 0.5 MG X 11 & 1 MG X 42 TABS 0.5mg daily for 3 days , then 0.5mg BID for 4 days, then 1mg BID VARENICLINE TARTRATE 38227879250 No Longer Active Tristan Vaughn MD Active LEVOTHYROXINE SODIUM 200 MCG TABS 1 TAB PO DAILY LEVOTHYROXINE SODIUM 91024029108 No Longer Active Tristan Vaughn MD Active LIOTHYRONINE SODIUM 50 MCG TABS take 1 tab po qday for hypothyroidism LIOTHYRONINE SODIUM 42605759179 No Longer Active Austin Albarado MD Active SYNTHROID 0.025 MG TAB 1 tablet by mouth daily LEVOTHYROXINE SODIUM 08990563379 No Longer Active Austin Albarado MD Active ARMOUR THYROID 120 MG TABS take 1 tab po qday for hypothyroidism THYROID 79919996527 Active Austin Albarado MD Active FLONASE 50 MCG/ACT SUSP 1 spray each nostril am and hs FLUTICASONE PROPIONATE Active Simona Galloway APRN Active ZITHROMAX 1 GM PACK DIRECTED AZITHROMYCIN 78074146458 No Longer Active Austin Albarado MD Active PREDNISONE 20 MG TAB 2 tabs daily for 3 days, 1 tab daily for 3 days, 1/2 tab daily for 2 days PREDNISONE 73217946026 No Longer Active Austin Albarado MD Active ZITHROMAX 250 MG TAB 2 po today, then 1 po q days 2-5 AZITHROMYCIN 02188344542 No Longer Active Austin Albarado MD Active NYSTATIN-TRIAMCINOLONE 732918-3.1 UNIT/GM-% OINT Apply to affected area TID NYSTATIN-TRIAMCINOLONE 17457463137 Active Austin Albarado MD Active IPRATROPIUM-ALBUTEROL 0.5-2.5 (3) MG/3ML SOLN 1 VIAL NEB Q 6 HRS PRN IPRATROPIUM-ALBUTEROL 11733882272 Active Simona Nilesh BUTTER PRODUCTION SUPERVISOR Active PROAIR HFA 108 (90 BASE) MCG/ACT AERS take 1-2 puffs q4hrs prn cough/ SOB ALBUTEROL SULFATE 99618855857 Active Austin Albarado MD Active ADVAIR DISKUS 500-50 MCG/DOSE AEPB ONE INH BID FLUTICASONE- SALMETEROL 83278485123 Active Austin Albarado MD Active ZITHROMAX 1 GM PACK DIRECTED ZITHROMAX 1 GM PACK 778632 AZITHROMYCIN Inactive SYNTHROID 0.025 MG TAB 1 tablet by mouth daily SYNTHROID 0.025 MG TAB 135757 LEVOTHYROXINE SODIUM Inactive LIOTHYRONINE SODIUM 50 MCG TABS take 1 tab po qday for hypothyroidism LIOTHYRONINE SODIUM 50 MCG TABS 946540 LIOTHYRONINE SODIUM Inactive LEVOTHYROXINE SODIUM 200 MCG TABS 1 TAB PO DAILY LEVOTHYROXINE SODIUM 200 MCG TABS 392242 LEVOTHYROXINE SODIUM Inactive CHANTIX STARTING MONTH ELVIS [...] po q day AZITHROMYCIN 500 MG SOLR 72093719210 AZITHROMYCIN Inactive PREDNISONE 20 MG TAB 2 tablets today, then 1 tablet by mouth days 2-5 PREDNISONE 20 MG TAB 768068 PREDNISONE Inactive TORSEMIDE 20 MG TABS 1 TAB PO BID TORSEMIDE 20 MG TABS 637694 TORSEMIDE Inactive ALBUTEROL SULFATE (2.5 MG/3ML) 0.083% NEBU nebulize 1 vial q 4-6 hours prn shortness of breath ALBUTEROL SULFATE (2.5 MG/3ML) 0.083% NEBU 405199 ALBUTEROL SULFATE Inactive LEVAQUIN 500 MG TAB 1 tablet by mouth daily LEVAQUIN 500 MG TAB 814767 LEVOFLOXACIN Inactive PREDNISONE 20 MG TAB 2 tabs daily for 4 days, 1 tab daily for 4 days, 1/2 tab daily for 4 days PREDNISONE 20 MG TAB 479410 PREDNISONE Inactive ZITHROMAX 1 GM ORAL PACK DIRECTED ZITHROMAX 1 GM ORAL PACK 733076 AZITHROMYCIN Inactive LEVAQUIN 500 MG TAB 1 tablet by mouth daily for 10 days. LEVAQUIN 500 MG TAB 986311 LEVOFLOXACIN Inactive PREDNISONE 20 MG ORAL TABS 3 TABS PO FOR 3 DAYS,THAN 2 TABS FOR 3 DAYS THAN, 1 TAB FOR 3 DAYS THAN, 1/2 TAB FOR 3 DAYS. PREDNISONE 20 MG ORAL TABS 111389 PREDNISONE Inactive PREDNISONE 20 MG ORAL TABS 3 daily for 3 days than, 2 tabs daily for 3 days than, 2 tabs daily for 3 days than, 1 tab daily for 3 days than 1/2 tab daily for 3 days. PREDNISONE 20 MG ORAL TABS 417341 PREDNISONE Inactive AMOXICILLIN 500 MG ORAL TABS Take one by mouth 3 times daily, morning, afternoon and evening.] AMOXICILLIN 500 MG ORAL TABS 818798 AMOXICILLIN Inactive LEVAQUIN 500 MG TAB 1 tablet by mouth daily LEVAQUIN 500 MG TAB 759525 LEVOFLOXACIN Inactive LEVAQUIN 500 MG TAB 1 tablet by mouth daily LEVAQUIN 500 MG TAB 804737 LEVOFLOXACIN Inactive PREDNISONE 20 MG ORAL TABS 3 tabs po for 3 days than,2 tabs po for 3 days,1 tab po for 3 days, 1/2 tab po for 3 days. PREDNISONE 20 MG ORAL TABS 285931 PREDNISONE Inactive ZITHROMAX 250 MG TAB 2 po today, then 1 po q days 2-5 ZITHROMAX 250 MG TAB 6264484 AZITHROMYCIN Inactive PREDNISONE 20 MG TAB 2 tabs daily for 3 days, 1 tab daily for 3 days, 1/2 tab daily for 2 days PREDNISONE 20 MG TAB 133624 PREDNISONE Inactive KEFLEX 500 MG CAP 1 po TID x 7 days KEFLEX 500 MG CAP 181842 CEPHALEXIN Inactive LEVOFLOXACIN 500 MG ORAL TABS take 1 tab po qday LEVOFLOXACIN 500 MG ORAL TABS 133272 LEVOFLOXACIN Inactive PREDNISONE 20 MG TAB 2 tabs daily for 3 days, 1 tab daily for 3 days, 1/2 tab daily for 2 days PREDNISONE 20 MG TAB 837090 PREDNISONE Inactive DOXYCYCLINE HYCLATE 100 MG CAP 1 cap by mouth twice daily DOXYCYCLINE HYCLATE 100 MG CAP 9023472 DOXYCYCLINE HYCLATE Inactive PREDNISONE 20 MG TAB take 3 tabs daily for 3 days, 2 tabs daily for 3 days, 1 tab daily for 3 days, 1/2 tab daily for 3 days PREDNISONE 20 MG TAB 459180 PREDNISONE Inactive PREDNISONE 20 MG TAB take 3 tabs daily for 3 days, 2 tabs daily for 3 days, 1 tab daily for 3 days, 1/2 tab daily for 3 days PREDNISONE 20 MG TAB 510039 PREDNISONE Inactive PREDNISONE 20 MG TAB take 3 tabs daily for 3 days, 2 tabs daily for 3 days, 1 tab daily for 3 days, 1/2 tab daily for 3 days PREDNISONE 20 MG TAB 857630 PREDNISONE Inactive Advance Directives Directive Description Start [...] Peptide - Chemistry sodium, serum 140 mmol/L 177-780 2935/02/09 carbon dioxide, venous blood 39.2 mmol/L 21.0-32.0 [...] 43.52 m[iU]/mL 0.36-3.74 sodium, serum 140 mmol/L 348-933 2014/04/06 carbon dioxide, venous blood 36.3 mmol/L 21.0-32.0 potassium, serum 4.9 mmol/L 3.5-5.2 chloride, serum 100 mmol/L 98-107 blood glucose 62 mg/dL 65-110 urea nitrogen, blood 24 mg/dL 7-18 creatinine, serum 1.09 mg/dL 0.55-1.30 alanine aminotransferase (SGPT), serum 44 U/L 12-78 aspartate aminotransferase (SGOT), serum 25 U/L 15-37 calcium, serum 8.7 mg/dL 8.5-10.1 bilirubin, serum, total 0.50 mg/dL 0.00-1.00 cholesterol, serum 189 mg/dL 441-461 4566/04/06 triglyceride, serum, fasting 117 mg/dL 30-200 HDL [...] 142-424 Encounters Code Encounter Date Provider Facility CPT-76971 Level 4 Est. Patient 17:54:41 DATASTAGE ARCHITECT Austin Albarado MD [facility] CPT-05082 Level 4 Est. Patient 16:11:14 DATASTAGE ARCHITECT Austin Albarado MD [facility] CPT-35577 Level 4 Est. Patient 23:08:56 CDT Austin Albarado MD [facility] CPT-71642 Level 4 Est. Patient 13:27:28 CDT Garcia Stroud MD [facility] CPT-83208 Level 4 Est. Patient 10:51:20 CDT Austin Albarado MD [facility] CPT-13136 Level 4 Est. Patient 20:09:43 DATASTAGE ARCHITECT Austin Albarado MD [facility] CPT-77181 Level 4 Est. Patient 21:00:28 CDT Austin Albarado MD [facility] CPT-94673 Level 4 Est. Patient 10:03:37 CDT Austin Albarado MD [facility] CPT-91173 Level 3 Est. Patient 10:50:28 DATASTAGE ARCHITECT Austin Albarado MD [facility] CPT-47015 Level 4 Est. Patient 21:31:41 DATASTAGE ARCHITECT Austin Albarado MD [facility] CPT-25501 Level 3 Est. Patient 16:22:54 DATASTAGE ARCHITECT Jann Law DO [facility] CPT-17857 Level 3 Est. Patient 11:04:53 DATASTAGE ARCHITECT Tristan Vaughn MD [facility] CPT-73498 Level 4 Est. Patient 09:50:59 CDT Austin Albarado MD [facility] CPT-10021 Level 4 Est. Patient 09:29:00 CDT Austin Albarado MD [facility] CPT-90122 Level 4 Est. Patient 14:23:07 CDT Austin Albarado MD [facility] CPT-29199 Level 4 Est. Patient 14:27:26 CDT Austin Albarado MD [facility] CPT-76475 Level 4 Est. Patient 12:51:43 DATASTAGE ARCHITECT Austin Albarado MD [facility] CPT-09639 Level 3 New Patient 14:17:38 DATASTAGE ARCHITECT Austin Albarado MD [facility] CPT-13240 Level 3 New Patient 11:28:18 DATASTAGE ARCHITECT Austin Albarado MD [facility] Procedures Code Procedure Name Date Entry Date Standard Description CPT-86705 No Charge Offi Visit 10:19:33 DATASTAGE ARCHITECT CPT-53214 Chest 2V Frontal and Lat - XRAY USE ONLY 15:01:41 DATASTAGE ARCHITECT CPT-04241 First Vx - Ix admin for Medicare patients 16:00:49 CDT CPT-76444 Fluzone High-Dose Intramuscular Suspension 16:00:49 CDT CPT-G0009 Administration of Pneumococcal Vaccine 13:25:27 CDT CPT-55071 Prevnar 13 Intramuscular Suspension 13:25:27 CDT 09/26 CPT-G0438 Initial Annual Wellness Exam 11:28:26 CDT CPT-72173 Chest 2V Frontal and Lat 15:00:00 DATASTAGE ARCHITECT CPT-73475 Breathing Tx 14:49:25 DATASTAGE ARCHITECT CPT-90636 Fluzone High Dose 15:08:41 DATASTAGE ARCHITECT CPT-72426 Immunization Single Admin 15:08:41 DATASTAGE ARCHITECT CPT-49868 Fluzone High Dose 17:31:19 CDT CPT-62444 Administration single or combination vaccine inc oral 17 :31:19 CDT CPT-20873 Venipuncture Draw Fee 11:03:05 CDT CPT-TCMM Transitional Care Mgmt-Moderate 16:32:35 CDT CPT-99715 Chest 2V Frontal and Lat 11:51:09 CDT CPT-G0008 Administration of Influenza Virus Vaccine 15:09:08 CDT CPT-42702 Fluzone High-Dose Intramuscular Suspension 15:09:08 CDT CPT-15943 Administration single or combination vaccine inc oral 17 :07:02 DATASTAGE ARCHITECT CPT-26987 Influenza High Dose age 65+ 17:07:02 DATASTAGE ARCHITECT
--- OUTSIDE RECORDS SUMMARY | 2017-02-27 22:24 | XMS REPORT | Clinical Summary ---
[...] 1/2 tab daily for 4 days PREDNISONE 16351346936 Active 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 SOFTWARE ENGINEER KERNEL Active DOXYCYCLINE HYCLATE 100 MG CAP 1 cap by mouth twice daily DOXYCYCLINE HYCLATE 61971755824 No Longer Active 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 SOFTWARE ENGINEER KERNEL Active ALBUTEROL SULFATE (2.5 MG/3ML) 0.083% NEBU nebulize 1 vial q 4-6 hours prn shortness of breath ALBUTEROL SULFATE 38103457244 No Longer Active 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 SOFTWARE ENGINEER KERNEL Active TORSEMIDE 20 MG TABS 1 TAB PO BID TORSEMIDE 23460827605 No Longer Active 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 SOFTWARE ENGINEER KERNEL Active PREDNISONE 20 MG TAB 2 tabs daily for 3 days, 1 tab daily for 3 days, 1/2 tab daily for 2 days PREDNISONE 28181653103 No Longer Active Austin Albarado MD Active LEVOFLOXACIN 500 MG ORAL TABS take 1 tab po qday LEVOFLOXACIN 70066763241 No Longer Active Austin Albarado MD Active PREDNISONE 20 MG TAB 2 tablets today, then 1 tablet by mouth days 2-5 PREDNISONE 70164162237 No Longer Active Austin Albarado MD Active AZITHROMYCIN 500 MG SOLR 1 po q day AZITHROMYCIN 50265047526 No Longer Active Austin Albarado MD Active KEFLEX 500 MG CAP 1 po TID x 7 days CEPHALEXIN 86066366176 No Longer Active Tristan Vaughn MD Active EQL VISION FORMULA TABS 1 TAB PO DAILY MULTIPLE VITAMINS-MINERALS 77297508120 No Longer Active Tristan Vaughn MD Active CHANTIX STARTING MONTH ELVIS 0.5 MG X 11 & 1 MG X 42 TABS 0.5mg daily for 3 days , then 0.5mg BID for 4 days, then 1mg BID VARENICLINE TARTRATE 15963855714 No Longer Active Tristan Vaughn MD Active LEVOTHYROXINE SODIUM 200 MCG TABS 1 TAB PO DAILY LEVOTHYROXINE SODIUM 17630759418 No Longer Active Tristan Vaughn MD Active LIOTHYRONINE SODIUM 50 MCG TABS take 1 tab po qday for hypothyroidism LIOTHYRONINE SODIUM 17995206118 No Longer Active Austin Albarado MD Active SYNTHROID 0.025 MG TAB 1 tablet by mouth daily LEVOTHYROXINE SODIUM 21583124393 No Longer Active Austin Albarado MD Active ARMOUR THYROID 120 MG TABS take 1 tab po qday for hypothyroidism THYROID 84533657570 Active Austin Albarado MD Active FLONASE 50 MCG/ACT SUSP 1 spray each nostril am and hs FLUTICASONE PROPIONATE 44601533540 Active Austin Albarado MD Active ZITHROMAX 1 GM PACK DIRECTED AZITHROMYCIN 62498071725 No Longer Active Austin Albarado MD Active PREDNISONE 20 MG TAB 2 tabs daily for 3 days, 1 tab daily for 3 days, 1/2 tab daily for 2 days PREDNISONE 11321004530 No Longer Active Austin Albarado MD Active ZITHROMAX 250 MG TAB 2 po today, then 1 po q days 2-5 AZITHROMYCIN 18136810829 No Longer Active Austin Albarado MD Active NYSTATIN-TRIAMCINOLONE 072657-3.1 UNIT/GM-% OINT Apply to affected area TID NYSTATIN-TRIAMCINOLONE 23251897002 Active Austin Albarado MD Active IPRATROPIUM-ALBUTEROL 0.5-2.5 (3) MG/3ML SOLN 1 VIAL NEB Q 6 HRS PRN IPRATROPIUM-ALBUTEROL 83659253043 Active Austin Albarado MD Active PROAIR HFA 108 (90 BASE) MCG/ACT AERS take 1-2 puffs q4hrs prn cough/ SOB ALBUTEROL SULFATE 17941052687 Active Austin Albarado MD Active ADVAIR DISKUS 500-50 MCG/DOSE AEPB ONE INH BID FLUTICASONE- SALMETEROL 79522845761 Active Austin Albarado MD Active ZITHROMAX 1 GM PACK DIRECTED ZITHROMAX 1 GM PACK 736158 AZITHROMYCIN Inactive SYNTHROID 0.025 MG TAB 1 tablet by mouth daily SYNTHROID 0.025 MG TAB 355582 LEVOTHYROXINE SODIUM Inactive LIOTHYRONINE SODIUM 50 MCG TABS take 1 tab po qday for hypothyroidism LIOTHYRONINE SODIUM 50 MCG TABS 366564 LIOTHYRONINE SODIUM Inactive LEVOTHYROXINE SODIUM 200 MCG TABS 1 TAB PO DAILY LEVOTHYROXINE SODIUM 200 MCG TABS 875234 LEVOTHYROXINE SODIUM Inactive CHANTIX STARTING MONTH ELVIS [...] po q day AZITHROMYCIN 500 MG SOLR 129978 AZITHROMYCIN Inactive PREDNISONE 20 MG TAB 2 tablets today, then 1 tablet by mouth days 2-5 PREDNISONE 20 MG TAB 526162 PREDNISONE Inactive TORSEMIDE 20 MG TABS 1 TAB PO BID TORSEMIDE 20 MG TABS 844240 TORSEMIDE Inactive ALBUTEROL SULFATE (2.5 MG/3ML) 0.083% NEBU nebulize 1 vial q 4-6 hours prn shortness of breath ALBUTEROL SULFATE (2.5 MG/3ML) 0.083% NEBU 305547 ALBUTEROL SULFATE Inactive ZITHROMAX 250 MG TAB 2 po today, then 1 po q days 2-5 ZITHROMAX 250 MG TAB 9266450 AZITHROMYCIN Inactive PREDNISONE 20 MG TAB 2 tabs daily for 3 days, 1 tab daily for 3 days, 1/2 tab daily for 2 days PREDNISONE 20 MG TAB 842517 PREDNISONE Inactive KEFLEX 500 MG CAP 1 po TID x 7 days KEFLEX 500 MG CAP 076739 CEPHALEXIN Inactive LEVOFLOXACIN 500 MG ORAL TABS take 1 tab po qday LEVOFLOXACIN 500 MG ORAL TABS 314056 LEVOFLOXACIN Inactive PREDNISONE 20 MG TAB 2 tabs daily for 3 days, 1 tab daily for 3 days, 1/2 tab daily for 2 days PREDNISONE 20 MG TAB 504445 PREDNISONE Inactive DOXYCYCLINE HYCLATE 100 MG CAP 1 cap by mouth twice daily DOXYCYCLINE HYCLATE 100 MG CAP 405705 DOXYCYCLINE HYCLATE Inactive Advance Directives Directive Description [...] ... - Chemistry sodium, serum 140 mmol/L 683-714 4469/03/09 potassium, serum 4.9 mmol/L 3.5-5.2 chloride, serum [...] ... - Chemistry sodium, serum 140 mmol/L 379-353 6419/04/03 potassium, serum 4.9 mmol/L 3.5-5.2 chloride, serum [...] 0.60 mg/dL 0.00-1.00 cholesterol, serum 163 mg/dL 432-122 4556/04/03 triglyceride, serum, fasting 50 mg/dL 30-200 HDL [...] 0.36-3.74 Encounters Code Encounter Date Provider Facility CPT-12418 Level 3 Est. Patient 10:50:28 PICKING BELT OPERATOR Austin Albarado MD [facility] CPT-87591 Level 4 Est. Patient 21:31:41 PICKING BELT OPERATOR Austin Albarado MD [facility] CPT-60507 Level 3 Est. Patient 16:22:54 PICKING BELT OPERATOR Jann Law DO [facility] CPT-51755 Level 3 Est. Patient 11:04:53 PICKING BELT OPERATOR Tristan Vaughn MD [facility] CPT-68621 Level 4 Est. Patient 09:50:59 CDT Austin Albarado MD [facility] CPT-23791 Level 4 Est. Patient 09:29:00 CDT Austin Albarado MD [facility] CPT-04449 Level 4 Est. Patient 14:23:07 CDT Austin Albarado MD [facility] CPT-36518 Level 4 Est. Patient 14:27:26 CDT Austin Albarado MD [facility] CPT-31002 Level 4 Est. Patient 12:51:43 PICKING BELT OPERATOR Austin Albarado MD [facility] CPT-47709 Level 3 New Patient 14:17:38 PICKING BELT OPERATOR Austin Albarado MD [facility] CPT-60806 Level 3 New Patient 11:28:18 PICKING BELT OPERATOR Austin Albarado MD [facility] Procedures Code Procedure Name Date Entry Date Standard Description CPT-99605 Chest 2V Frontal and Lat 11:51:09 CDT CPT-G0008 Administration of Influenza Virus Vaccine 15:09:08 CDT CPT-46816 Fluzone High-Dose Intramuscular Suspension 15:09:08 CDT CPT-19443 Administration single or combination vaccine inc oral 17 :07:02 PICKING BELT OPERATOR CPT-67627 Influenza High Dose age 65+ 17:07:02 PICKING BELT OPERATOR
--- OUTSIDE RECORDS SUMMARY | 2017-02-27 22:24 | XMS REPORT | Clinical Summary ---
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 Family history of ischemic heart disease CAD [...] 1 tablet by mouth daily CITALOPRAM HYDROBROMIDE 07109528366 Active Nella José LPN Active KEFLEX 500 MG CAP 1 po BID x 7 days CEPHALEXIN 29776538315 No Longer Active Mica Naren Active KEFLEX 500 MG CAP 1 po BID x 7 days CEPHALEXIN 12418754284 No Longer Active Simona Galloway APRN Active ACYCLOVIR 400 MG TABS 1 pill three times daily ACYCLOVIR 12173059083 No Longer Active Austin Albarado MD Active ACYCLOVIR 400 MG TABS 1 pill three times daily ACYCLOVIR 18034244483 No Longer Active Austin Albarado MD Active ALBUTEROL SULFATE 0.083 % NEBU SOLN one vial per nebulizer every 4 hours as needed Dx. J44.1 ALBUTEROL SULFATE 02091636382 Active Austin Albarado MD Active IPRATROPIUM BROMIDE 0.02 % INH SOLN 1 q 6 hr PRN Dx: J44.1 IPRATROPIUM BROMIDE 76747846532 Active Nella José LPN Active PROAIR HFA 108 (90 BASE) MCG/ACT AERS take 1-2 puffs q 4-6 hrs prn cough/ SOB ALBUTEROL SULFATE 77504033176 Active Nella José LPN Active IPRATROPIUM-ALBUTEROL 0.5-2.5 (3) MG/3ML SOLN 1 VIAL NEB Q 4-6 HRS PRN 04/18 IPRATROPIUM-ALBUTEROL 33529884922 No Longer Active Austin Albarado MD Active ATIVAN 0.5 MG TAB 1 po QD PRN Anxiety LORAZEPAM 74949766386 Active Austin Albarado MD Active PREDNISONE 20 MG ORAL TABS 3 tabs po for 3 days than,2 tabs po for 3 days,1 tab po for 3 days, 1/2 tab po for 3 days. PREDNISONE 34115261464 No Longer Active Simona Galloway APRN Active LEVAQUIN 500 MG TAB 1 tablet by mouth daily LEVOFLOXACIN 84075635049 No Longer Active Simona Galloway APRN Active PREDNISONE 20 MG TAB take 3 tabs daily for 3 days, 2 tabs daily for 3 days, 1 tab daily for 3 days, 1/2 tab daily for 3 days PREDNISONE 04519193363 No Longer Active Austin Albarado MD Active LEVAQUIN 500 MG TAB 1 tablet by mouth daily LEVOFLOXACIN 57532474362 No Longer Active Madhaviavis Rogersida Active FUROSEMIDE 20 MG TABS take 1 tab po BID for swelling FUROSEMIDE 21116309652 Active Austin Albarado MD Active AMOXICILLIN 500 MG ORAL TABS Take one by mouth 3 times daily, morning, afternoon and evening.] AMOXICILLIN 37673832506 No Longer Active Garcia Stroud MD Active PREDNISONE 20 MG ORAL TABS 3 daily for 3 days than, 2 tabs daily for 3 days than, 2 tabs daily for 3 days than, 1 tab daily for 3 days than 1/2 tab daily for 3 days. PREDNISONE 22948903826 No Longer Active Tracie Arrington APRN Active FLUTICASONE PROPIONATE 50 MCG/ACT SUSP 1 to 2 sprays each nostril daily 08/21 FLUTICASONE PROPIONATE 84904035459 Active Austin Albarado MD Active PREDNISONE 10 MG TAB take 1 tab po qday for severe COPD PREDNISONE 08098369823 Active Austin Albarado MD Active PREDNISONE 20 MG ORAL TABS 3 TABS PO FOR 3 DAYS,THAN 2 TABS FOR 3 DAYS THAN, 1 TAB FOR 3 DAYS THAN, 1/2 TAB FOR 3 DAYS. PREDNISONE 76489412534 No Longer Active Austin Albarado MD Active LEVAQUIN 500 MG TAB 1 tablet by mouth daily for 10 days. LEVOFLOXACIN 45472233159 No Longer Active Austin Albarado MD Active PREDNISONE 20 MG TAB take 3 tabs daily for 3 days, 2 tabs daily for 3 days, 1 tab daily for 3 days, 1/2 tab daily for 3 days PREDNISONE 32029958507 No Longer Active Simona Galloway APRN Active ZITHROMAX 1 GM ORAL PACK DIRECTED AZITHROMYCIN 10757389781 No Longer Active Simona Galloway APRN Active PREDNISONE 20 MG TAB 2 tabs daily for 4 days, 1 tab daily for 4 days, 1/2 tab daily for 4 days PREDNISONE 94901493270 No Longer Active Austin Albarado MD Active LEVAQUIN 500 MG TAB 1 tablet by mouth daily LEVOFLOXACIN 38166751747 No Longer Active Austin Albarado MD Active PREDNISONE 20 MG TAB take 3 tabs daily for 3 days, 2 tabs daily for 3 days, 1 tab daily for 3 days, 1/2 tab daily for 3 days PREDNISONE 28884902387 No Longer Active Austin Albarado MD Active DOXYCYCLINE HYCLATE 100 MG CAP 1 cap by mouth twice daily DOXYCYCLINE HYCLATE 57266645614 No Longer Active Esperanza Modi APRN Active ALBUTEROL SULFATE (2.5 MG/3ML) 0.083% NEBU nebulize 1 vial q 4-6 hours prn shortness of breath ALBUTEROL SULFATE 81299879676 No Longer Active Esperanza Modi APRN Active TORSEMIDE 20 MG TABS 1 TAB PO BID TORSEMIDE 59884369116 No Longer Active Joshllaftab Modi APRN Active PREDNISONE 20 MG TAB 2 tabs daily for 3 days, 1 tab daily for 3 days, 1/2 tab daily for 2 days PREDNISONE 86069338959 No Longer Active Austin Albarado MD Active LEVOFLOXACIN 500 MG ORAL TABS take 1 tab po qday LEVOFLOXACIN 64468057496 No Longer Active Austin Albarado MD Active PREDNISONE 20 MG TAB 2 tablets today, then 1 tablet by mouth days 2-5 PREDNISONE 78865971003 No Longer Active Austin Albarado MD Active AZITHROMYCIN 500 MG SOLR 1 po q day AZITHROMYCIN 14522325667 No Longer Active Austin Albarado MD Active KEFLEX 500 MG CAP 1 po TID x 7 days CEPHALEXIN 80836197807 No Longer Active Tristan Vaughn MD Active EQL VISION FORMULA TABS 1 TAB PO DAILY MULTIPLE VITAMINS-MINERALS 08935482015 No Longer Active Tristan Vaughn MD Active CHANTIX STARTING MONTH ELVIS 0.5 MG X 11 & 1 MG X 42 TABS 0.5mg daily for 3 days , then 0.5mg BID for 4 days, then 1mg BID VARENICLINE TARTRATE 53366227414 No Longer Active Tristan Vaughn MD Active LEVOTHYROXINE SODIUM 200 MCG TABS 1 TAB PO DAILY LEVOTHYROXINE SODIUM 88467098352 No Longer Active Tristan Vaughn MD Active LIOTHYRONINE SODIUM 50 MCG TABS take 1 tab po qday for hypothyroidism LIOTHYRONINE SODIUM 99804473099 No Longer Active Austin Albarado MD Active SYNTHROID 0.025 MG TAB 1 tablet by mouth daily LEVOTHYROXINE SODIUM 98049861815 No Longer Active Austin Albarado MD Active ARMOUR THYROID 120 MG TABS take 1 tab po qday for hypothyroidism THYROID 09452572468 Active Austin Albarado MD Active FLONASE 50 MCG/ACT SUSP 1 spray each nostril am and hs FLUTICASONE PROPIONATE Active Simona Galloway APRN Active ZITHROMAX 1 GM PACK DIRECTED AZITHROMYCIN 95334395355 No Longer Active Austin Albarado MD Active PREDNISONE 20 MG TAB 2 tabs daily for 3 days, 1 tab daily for 3 days, 1/2 tab daily for 2 days PREDNISONE 75883615727 No Longer Active Austin Albarado MD Active ZITHROMAX 250 MG TAB 2 po today, then 1 po q days 2-5 AZITHROMYCIN 10255753560 No Longer Active Austin Albarado MD Active NYSTATIN-TRIAMCINOLONE 123234-3.1 UNIT/GM-% OINT Apply to affected area TID NYSTATIN-TRIAMCINOLONE 13305180935 Active Austin Albarado MD Active ADVAIR DISKUS 500-50 MCG/DOSE AEPB ONE INH BID FLUTICASONE- SALMETEROL 16626318783 Active Asutin Albarado MD Active ZITHROMAX 1 GM PACK DIRECTED ZITHROMAX 1 GM PACK 283711 AZITHROMYCIN Inactive SYNTHROID 0.025 MG TAB 1 tablet by mouth daily SYNTHROID 0.025 MG TAB 734627 LEVOTHYROXINE SODIUM Inactive LIOTHYRONINE SODIUM 50 MCG TABS take 1 tab po qday for hypothyroidism LIOTHYRONINE SODIUM 50 MCG TABS 216099 LIOTHYRONINE SODIUM Inactive LEVOTHYROXINE SODIUM 200 MCG TABS 1 TAB PO DAILY LEVOTHYROXINE SODIUM 200 MCG TABS 005883 LEVOTHYROXINE SODIUM Inactive CHANTIX STARTING MONTH ELVIS [...] po q day AZITHROMYCIN 500 MG SOLR 55910174160 AZITHROMYCIN Inactive PREDNISONE 20 MG TAB 2 tablets today, then 1 tablet by mouth days 2-5 PREDNISONE 20 MG TAB 430415 PREDNISONE Inactive TORSEMIDE 20 MG TABS 1 TAB PO BID TORSEMIDE 20 MG TABS 498742 TORSEMIDE Inactive ALBUTEROL SULFATE (2.5 MG/3ML) 0.083% NEBU nebulize 1 vial q 4-6 hours prn shortness of breath ALBUTEROL SULFATE (2.5 MG/3ML) 0.083% [facility] 123737 ALBUTEROL SULFATE Inactive LEVAQUIN 500 MG TAB 1 tablet by mouth daily LEVAQUIN 500 MG TAB 392409 LEVOFLOXACIN Inactive PREDNISONE 20 MG TAB 2 tabs daily for 4 days, 1 tab daily for 4 days, 1/2 tab daily for 4 days PREDNISONE 20 MG TAB 247836 PREDNISONE Inactive ZITHROMAX 1 GM ORAL PACK DIRECTED ZITHROMAX 1 GM ORAL PACK 048147 AZITHROMYCIN Inactive LEVAQUIN 500 MG TAB 1 tablet by mouth daily for 10 days. LEVAQUIN 500 MG TAB 611290 LEVOFLOXACIN Inactive PREDNISONE 20 MG ORAL TABS 3 TABS PO FOR 3 DAYS,THAN 2 TABS FOR 3 DAYS THAN, 1 TAB FOR 3 DAYS THAN, 1/2 TAB FOR 3 DAYS. PREDNISONE 20 MG ORAL TABS 682633 PREDNISONE Inactive PREDNISONE 20 MG ORAL TABS 3 daily for 3 days than, 2 tabs daily for 3 days than, 2 tabs daily for 3 days than, 1 tab daily for 3 days than 1/2 tab daily for 3 days. PREDNISONE 20 MG ORAL TABS 358562 PREDNISONE Inactive AMOXICILLIN 500 MG ORAL TABS Take one by mouth 3 times daily, morning, afternoon and evening.] AMOXICILLIN 500 MG ORAL TABS 095938 AMOXICILLIN Inactive LEVAQUIN 500 MG TAB 1 tablet by mouth daily LEVAQUIN 500 MG TAB 587038 LEVOFLOXACIN Inactive LEVAQUIN 500 MG TAB 1 tablet by mouth daily LEVAQUIN 500 MG TAB 941257 LEVOFLOXACIN Inactive PREDNISONE 20 MG ORAL TABS 3 tabs po for 3 days than,2 tabs po for 3 days,1 tab po for 3 days, 1/2 tab po for 3 days. PREDNISONE 20 MG ORAL TABS 161562 PREDNISONE Inactive ZITHROMAX 250 MG TAB 2 po today, then 1 po q days 2-5 ZITHROMAX 250 MG TAB 9647406 AZITHROMYCIN Inactive PREDNISONE 20 MG TAB 2 tabs daily for 3 days, 1 tab daily for 3 days, 1/2 tab daily for 2 days PREDNISONE 20 MG TAB 390116 PREDNISONE Inactive KEFLEX 500 MG CAP 1 po TID x 7 days KEFLEX 500 MG CAP 803828 CEPHALEXIN Inactive LEVOFLOXACIN 500 MG ORAL TABS take 1 tab po qday LEVOFLOXACIN 500 MG ORAL TABS 667018 LEVOFLOXACIN Inactive PREDNISONE 20 MG TAB 2 tabs daily for 3 days, 1 tab daily for 3 days, 1/2 tab daily for 2 days PREDNISONE 20 MG TAB 119066 PREDNISONE Inactive DOXYCYCLINE HYCLATE 100 MG CAP 1 cap by mouth twice daily DOXYCYCLINE HYCLATE 100 MG CAP 4608444 DOXYCYCLINE HYCLATE Inactive PREDNISONE 20 MG TAB take 3 tabs daily for 3 days, 2 tabs daily for 3 days, 1 tab daily for 3 days, 1/2 tab daily for 3 days PREDNISONE 20 MG TAB 696092 PREDNISONE Inactive PREDNISONE 20 MG TAB take 3 tabs daily for 3 days, 2 tabs daily for 3 days, 1 tab daily for 3 days, 1/2 tab daily for 3 days PREDNISONE 20 MG TAB 525069 PREDNISONE Inactive PREDNISONE 20 MG TAB take 3 tabs daily for 3 days, 2 tabs daily for 3 days, 1 tab daily for 3 days, 1/2 tab daily for 3 days PREDNISONE 20 MG TAB 852321 PREDNISONE Inactive ACYCLOVIR 400 MG TABS 1 pill three times daily ACYCLOVIR 400 MG TABS 633985 ACYCLOVIR Inactive ACYCLOVIR 400 MG TABS 1 pill three times daily ACYCLOVIR 400 MG TABS 363767 ACYCLOVIR Inactive KEFLEX 500 MG CAP 1 po BID x 7 days KEFLEX 500 MG CAP 726676 CEPHALEXIN Inactive KEFLEX 500 MG CAP 1 po BID x 7 days KEFLEX 500 MG CAP 168128 CEPHALEXIN Inactive Advance Directives Directive Description Start [...] Peptide - Chemistry sodium, serum 140 mmol/L 404-336 0596/02/09 carbon dioxide, venous blood 39.2 mmol/L 21.0-32.0 [...] 0.00-1.00 Encounters Code Encounter Date Provider Facility CPT-32134 Level 3 Est. Patient 16:07:19 CDT Simona Galloway APRN [facility] CPT-47474 Level 4 Est. Patient 13:31:03 CDT Austin Albarado MD [facility] CPT-40742 Level 4 Est. Patient 17:54:41 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 Austin Albarado MD [facility] CPT-06535 Level 4 Est. Patient 16:11:14 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 Austin Albarado MD [facility] CPT-53425 Level 4 Est. Patient 23:08:56 CDT Austin Albarado MD [facility] CPT-92197 Level 4 Est. Patient 13:27:28 CDT Garcia Stroud MD [facility]-07712 Level 4 Est. Patient 10:51:20 CDT Austin Albarado MD [facility] CPT-18902 Level 4 Est. Patient 20:09:43 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 Austin Albarado MD [facility] CPT-17558 Level 4 Est. Patient 21:00:28 CDT Austin Albarado MD [facility] CPT-53942 Level 4 Est. Patient 10:03:37 CDT Austin Albarado MD [facility] CPT-69252 Level 3 Est. Patient 10:50:28 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 Austin Albarado MD [facility] CPT-34132 Level 4 Est. Patient 21:31:41 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 Austin Albarado MD [facility] CPT-77890 Level 3 Est. Patient 16:22:54 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 Jann Law DO [facility] CPT-26626 Level 3 Est. Patient 11:04:53 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 Tristan Vaughn MD [facility] CPT-42840 Level 4 Est. Patient 09:50:59 CDT Austin Albarado MD [facility] CPT-78996 Level 4 Est. Patient 09:29:00 CDT Austin Albarado MD [facility] CPT-54998 Level 4 Est. Patient 14:23:07 CDT Austin Albarado MD [facility] CPT-20435 Level 4 Est. Patient 14:27:26 CDT Austin Albarado MD [facility] CPT-44658 Level 4 Est. Patient 12:51:43 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 Austin Albarado MD [facility] CPT-31694 Level 3 New Patient 14:17:38 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 Austin Albarado MD [facility] CPT-11301 Level 3 New Patient 11:28:18 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 Austin Albarado MD [facility] Procedures Code Procedure Name Date Entry Date Standard Description CPT-G0439 Subsequent Annual Wellness Exam 08:13:24 CDT CPT-TCMM Transitional Care Mgmt-Moderate 14:53:36 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 CPT-75545 No Charge Offi Visit 10:19:33 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 CPT-80963 Chest 2V Frontal and Lat - XRAY USE ONLY 15:01:41 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 CPT-29093 First Vx - Ix admin for Medicare patients 16:00:49 CDT CPT-11118 Fluzone High-Dose Intramuscular Suspension 16:00:49 CDT CPT-G0009 Administration of Pneumococcal Vaccine 13:25:27 CDT CPT-69395 Prevnar 13 Intramuscular Suspension 13:25:27 CDT 09/26 CPT-G0438 Initial Annual Wellness Exam 11:28:26 CDT CPT-06022 Chest 2V Frontal and Lat 15:00:00 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 CPT-03644 Breathing Tx 14:49:25 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 CPT-98209 Fluzone High Dose 15:08:41 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 CPT-13706 Immunization Single Admin 15:08:41 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 CPT-70239 Fluzone High Dose 17:31:19 CDT CPT-45114 Administration single or combination vaccine inc oral 17 :31:19 CDT CPT-88731 Venipuncture Draw Fee 11:03:05 CDT CPT-TCMM Transitional Care Mgmt-Moderate 16:32:35 CDT CPT-99438 Chest 2V Frontal and Lat 11:51:09 CDT CPT-G0008 Administration of Influenza Virus Vaccine 15:09:08 CDT CPT-06032 Fluzone High-Dose Intramuscular Suspension 15:09:08 CDT CPT-91625 Administration single or combination vaccine inc oral 17 :07:02 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 CPT-17037 Influenza High Dose age 65+ 17:07:02 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
--- OUTSIDE RECORDS SUMMARY | 2017-02-27 22:25 | XMS REPORT | Clinical Summary ---
Author Author Admin, DILLONE Organization [employer] Address Unknown Phone Unavailable Allergies, Adverse Reactions, [...] Coronary atherosclerosis of unspecified type of vessel, [place] or graft Peripheral edema 782.3 Active Austin [...] 1/2 tab daily for 3 days PREDNISONE 18906604926 Active Austin Albarado MD Active LEVAQUIN 500 MG TAB 1 tablet by mouth daily LEVOFLOXACIN 75359157215 Active Mica Sneed Active LEVAQUIN 500 MG TAB 1 tablet by mouth daily LEVOFLOXACIN 74333145022 No Longer Active Madhavi Fiore Active FUROSEMIDE 20 MG TABS take 1 tab po BID for swelling FUROSEMIDE 76489970999 Active Austin Albarado MD Active PREDNISONE 20 MG ORAL TABS 3 tabs po for 3 days than,2 tabs po for 3 days,1 tab po for 3 days, 1/2 tab po for 3 days. PREDNISONE 08097958709 Active Mica Sneed Active AMOXICILLIN 500 MG ORAL TABS Take one by mouth 3 times daily, morning, afternoon and evening.] AMOXICILLIN 98000059695 No Longer Active Garcia Stroud MD Active PREDNISONE 20 MG ORAL TABS 3 daily for 3 days than, 2 tabs daily for 3 days than, 2 tabs daily for 3 days than, 1 tab daily for 3 days than 1/2 tab daily for 3 days. PREDNISONE 11059133898 No Longer Active Tracie Arrington APRN Active FLUTICASONE PROPIONATE 50 MCG/ACT SUSP 1 to 2 sprays each nostril daily 08/21 FLUTICASONE PROPIONATE 15467522130 Active Simona Galloway APRN Active PREDNISONE 10 MG TAB take 1 tab po qday for severe COPD PREDNISONE 93871858423 Active Austin Albarado MD Active PREDNISONE 20 MG ORAL TABS 3 TABS PO FOR 3 DAYS,THAN 2 TABS FOR 3 DAYS THAN, 1 TAB FOR 3 DAYS THAN, 1/2 TAB FOR 3 DAYS. PREDNISONE 51058513213 No Longer Active Austin Albarado MD Active LEVAQUIN 500 MG TAB 1 tablet by mouth daily for 10 days. LEVOFLOXACIN 41039187424 No Longer Active Austin Albarado MD Active PREDNISONE 20 MG TAB take 3 tabs daily for 3 days, 2 tabs daily for 3 days, 1 tab daily for 3 days, 1/2 tab daily for 3 days PREDNISONE 36633216545 No Longer Active Simona Galloway APRN Active ZITHROMAX 1 GM ORAL PACK DIRECTED AZITHROMYCIN 60202618240 No Longer Active Simona Galloway APRN Active PREDNISONE 20 MG TAB 2 tabs daily for 4 days, 1 tab daily for 4 days, 1/2 tab daily for 4 days PREDNISONE 96734697690 No Longer Active Austin Albarado MD Active LEVAQUIN 500 MG TAB 1 tablet by mouth daily LEVOFLOXACIN 33615203808 No Longer Active Austin Albarado MD Active PREDNISONE 20 MG TAB take 3 tabs daily for 3 days, 2 tabs daily for 3 days, 1 tab daily for 3 days, 1/2 tab daily for 3 days PREDNISONE 05285855951 No Longer Active Austin Albarado MD Active DOXYCYCLINE HYCLATE 100 MG CAP 1 cap by mouth twice daily DOXYCYCLINE HYCLATE 54276060871 No Longer Active Joshllina Ly BOWEN Active ALBUTEROL SULFATE (2.5 MG/3ML) 0.083% NEBU nebulize 1 vial q 4-6 hours prn shortness of breath ALBUTEROL SULFATE 27502441291 No Longer Active Joshllina Ly [employer] Active TORSEMIDE 20 MG TABS 1 TAB PO BID TORSEMIDE 62830538796 No Longer Active Joshllaftab Modi APRN Active PREDNISONE 20 MG TAB 2 tabs daily for 3 days, 1 tab daily for 3 days, 1/2 tab daily for 2 days PREDNISONE 66692462380 No Longer Active Austin Albarado MD Active LEVOFLOXACIN 500 MG ORAL TABS take 1 tab po qday LEVOFLOXACIN 66153651783 No Longer Active Austin Albarado MD Active PREDNISONE 20 MG TAB 2 tablets today, then 1 tablet by mouth days 2-5 PREDNISONE 17180285843 No Longer Active Austin Albarado MD Active AZITHROMYCIN 500 MG SOLR 1 po q day AZITHROMYCIN 57461804324 No Longer Active Austin Albarado MD Active KEFLEX 500 MG CAP 1 po TID x 7 days CEPHALEXIN 54541818145 No Longer Active Tristan Vaughn MD Active EQL VISION FORMULA TABS 1 TAB PO DAILY MULTIPLE VITAMINS-MINERALS 16202947426 No Longer Active Tristan Vaughn MD Active CHANTIX STARTING MONTH ELVIS 0.5 MG X 11 & 1 MG X 42 TABS 0.5mg daily for 3 days , then 0.5mg BID for 4 days, then 1mg BID VARENICLINE TARTRATE 06776734699 No Longer Active Tristan Vaughn MD Active LEVOTHYROXINE SODIUM 200 MCG TABS 1 TAB PO DAILY LEVOTHYROXINE SODIUM 76692432538 No Longer Active Tristan Vaughn MD Active LIOTHYRONINE SODIUM 50 MCG TABS take 1 tab po qday for hypothyroidism LIOTHYRONINE SODIUM 17258320288 No Longer Active Austin Albarado MD Active SYNTHROID 0.025 MG TAB 1 tablet by mouth daily LEVOTHYROXINE SODIUM 36704163125 No Longer Active Austin Albarado MD Active ARMOUR THYROID 120 MG TABS take 1 tab po qday for hypothyroidism THYROID 30629880324 Active Austin Albarado MD Active FLONASE 50 MCG/ACT SUSP 1 spray each nostril am and hs FLUTICASONE PROPIONATE Active Simona Galloway APRN Active ZITHROMAX 1 GM PACK DIRECTED AZITHROMYCIN 03661554266 No Longer Active Austin Albarado MD Active PREDNISONE 20 MG TAB 2 tabs daily for 3 days, 1 tab daily for 3 days, 1/2 tab daily for 2 days PREDNISONE 42348776880 No Longer Active Austin Albarado MD Active ZITHROMAX 250 MG TAB 2 po today, then 1 po q days 2-5 AZITHROMYCIN 63831685949 No Longer Active Austin Albarado MD Active NYSTATIN-TRIAMCINOLONE 246575-0.1 UNIT/GM-% OINT Apply to affected area TID NYSTATIN-TRIAMCINOLONE 53134634072 Active Austin Albarado MD Active IPRATROPIUM-ALBUTEROL 0.5-2.5 (3) MG/3ML SOLN 1 VIAL NEB Q 6 HRS PRN IPRATROPIUM-ALBUTEROL 91851161785 Active Simona Galloway APRN Active PROAIR HFA 108 (90 BASE) MCG/ACT AERS take 1-2 puffs q4hrs prn cough/ SOB ALBUTEROL SULFATE 65127547434 Active Austin Albarado MD Active ADVAIR DISKUS 500-50 MCG/DOSE AEPB ONE INH BID FLUTICASONE- SALMETEROL 54113849838 Active Austin Albarado MD Active ZITHROMAX 1 GM PACK DIRECTED ZITHROMAX 1 GM PACK 662994 AZITHROMYCIN Inactive SYNTHROID 0.025 MG TAB 1 tablet by mouth daily SYNTHROID 0.025 MG TAB 746519 LEVOTHYROXINE SODIUM Inactive LIOTHYRONINE SODIUM 50 MCG TABS take 1 tab po qday for hypothyroidism LIOTHYRONINE SODIUM 50 MCG TABS 166917 LIOTHYRONINE SODIUM Inactive LEVOTHYROXINE SODIUM 200 MCG TABS 1 TAB PO DAILY LEVOTHYROXINE SODIUM 200 MCG TABS 102994 LEVOTHYROXINE SODIUM Inactive CHANTIX STARTING MONTH ELVIS [...] po q day AZITHROMYCIN 500 MG SOLR 60523788671 AZITHROMYCIN Inactive PREDNISONE 20 MG TAB 2 tablets today, then 1 tablet by mouth days 2-5 PREDNISONE 20 MG TAB 894679 PREDNISONE Inactive TORSEMIDE 20 MG TABS 1 TAB PO BID TORSEMIDE 20 MG TABS 901929 TORSEMIDE Inactive ALBUTEROL SULFATE (2.5 MG/3ML) 0.083% NEBU nebulize 1 vial q 4-6 hours prn shortness of breath ALBUTEROL SULFATE (2.5 MG/3ML) 0.083% NEBU 119826 ALBUTEROL SULFATE Inactive LEVAQUIN 500 MG TAB 1 tablet by mouth daily LEVAQUIN 500 MG TAB 781494 LEVOFLOXACIN Inactive PREDNISONE 20 MG TAB 2 tabs daily for 4 days, 1 tab daily for 4 days, 1/2 tab daily for 4 days PREDNISONE 20 MG TAB 399248 PREDNISONE Inactive ZITHROMAX 1 GM ORAL PACK DIRECTED ZITHROMAX 1 GM ORAL PACK 038830 AZITHROMYCIN Inactive LEVAQUIN 500 MG TAB 1 tablet by mouth daily for 10 days. LEVAQUIN 500 MG TAB 511285 LEVOFLOXACIN Inactive PREDNISONE 20 MG ORAL TABS 3 TABS PO FOR 3 DAYS,THAN 2 TABS FOR 3 DAYS THAN, 1 TAB FOR 3 DAYS THAN, 1/2 TAB FOR 3 DAYS. PREDNISONE 20 MG ORAL TABS 949634 PREDNISONE Inactive PREDNISONE 20 MG ORAL TABS 3 daily for 3 days than, 2 tabs daily for 3 days than, 2 tabs daily for 3 days than, 1 tab daily for 3 days than 1/2 tab daily for 3 days. PREDNISONE 20 MG ORAL TABS 008978 PREDNISONE Inactive AMOXICILLIN 500 MG ORAL TABS Take one by mouth 3 times daily, morning, afternoon and evening.] AMOXICILLIN 500 MG ORAL TABS 331187 AMOXICILLIN Inactive LEVAQUIN 500 MG TAB 1 tablet by mouth daily LEVAQUIN 500 MG TAB 093498 LEVOFLOXACIN Inactive ZITHROMAX 250 MG TAB 2 po today, then 1 po q days 2-5 ZITHROMAX 250 MG TAB 6447738 AZITHROMYCIN Inactive PREDNISONE 20 MG TAB 2 tabs daily for 3 days, 1 tab daily for 3 days, 1/2 tab daily for 2 days PREDNISONE 20 MG TAB 854931 PREDNISONE Inactive KEFLEX 500 MG CAP 1 po TID x 7 days KEFLEX 500 MG CAP 811989 CEPHALEXIN Inactive LEVOFLOXACIN 500 MG ORAL TABS take 1 tab po qday LEVOFLOXACIN 500 MG ORAL TABS 478068 LEVOFLOXACIN Inactive PREDNISONE 20 MG TAB 2 tabs daily for 3 days, 1 tab daily for 3 days, 1/2 tab daily for 2 days PREDNISONE 20 MG TAB 773065 PREDNISONE Inactive DOXYCYCLINE HYCLATE 100 MG CAP 1 cap by mouth twice daily DOXYCYCLINE HYCLATE 100 MG CAP 5802573 DOXYCYCLINE HYCLATE Inactive PREDNISONE 20 MG TAB take 3 tabs daily for 3 days, 2 tabs daily for 3 days, 1 tab daily for 3 days, 1/2 tab daily for 3 days PREDNISONE 20 MG TAB 442163 PREDNISONE Inactive PREDNISONE 20 MG TAB take 3 tabs daily for 3 days, 2 tabs daily for 3 days, 1 tab daily for 3 days, 1/2 tab daily for 3 days PREDNISONE 20 MG TAB 000844 PREDNISONE Inactive Advance Directives Directive Description Start [...] 0.50 mg/dL 0.00-1.00 cholesterol, serum 189 mg/dL 235-917 5766/04/06 triglyceride, serum, fasting 117 mg/dL 30-200 HDL cholesterol, serum 70 mg/dL 32-96 LDL cholesterol, serum 96 mg/dL 0-130 chloride, serum 100 mmol/L 98-107 potassium, serum 4.9 mmol/L 3.5-5.2 carbon dioxide, venous blood 36.3 mmol/L 21.0-32.0 sodium, serum 140 mmol/L 221-889 8284/04/06 TSH 43.52 m[iU]/mL 0.36-3.74 Lab Report: Thyroid [...] [id number] Encounters Code Encounter Date Provider Facility CPT-14252 Level 4 Est. Patient 17:54:41 MILLING OPERATOR Austin Albarado MD [facility] CPT-61809 Level 4 Est. Patient 16:11:14 MILLING OPERATOR Austin Albarado MD [facility] CPT-45975 Level 4 Est. Patient 23:08:56 CDT Austin Albarado MD [facility] CPT-00480 Level 4 Est. Patient 13:27:28 CDT Garcia Stroud MD [facility] CPT-26233 Level 4 Est. Patient 10:51:20 CDT Austin Albarado MD [facility]-82719 Level 4 Est. Patient 20:09:43 MILLING OPERATOR Austin Albarado MD [facility]-00522 Level 4 Est. Patient 21:00:28 CDT Austin Albarado MD [facility]-08274 Level 4 Est. Patient 10:03:37 CDT Austin Albarado MD [facility]-92098 Level 3 Est. Patient 10:50:28 MILLING OPERATOR Austin Albarado MD [facility]-37508 Level 4 Est. Patient 21:31:41 MILLING OPERATOR Austin Albarado MD [facility]-97906 Level 3 Est. Patient 16:22:54 MILLING OPERATOR Jann Law DO [facility]-69045 Level 3 Est. Patient 11:04:53 MILLING OPERATOR Tristan Vaughn MD [facility] CPT-45451 Level 4 Est. Patient 09:50:59 CDT Austin Albarado MD [facility]-34896 Level 4 Est. Patient 09:29:00 CDT Austin Albarado MD [facility]-90047 Level 4 Est. Patient 14:23:07 CDT Austin Albarado MD [facility]-09803 Level 4 Est. Patient 14:27:26 CDT Austin Albarado MD [facility]-29726 Level 4 Est. Patient 12:51:43 MILLING OPERATOR Austin Albarado MD [facility] CPT-01457 Level 3 New Patient 14:17:38 MILLING OPERATOR Austin Albarado MD [facility] CPT-06331 Level 3 New Patient 11:28:18 MILLING OPERATOR Austin Albarado MD [facility] Procedures Code Procedure Name Date Entry Date Standard Description CPT-34413 First Vx - Ix admin for Medicare patients 16:00:49 CDT CPT-16022 Fluzone High-Dose Intramuscular Suspension 16:00:49 CDT CPT-G0009 Administration of Pneumococcal Vaccine 13:25:27 CDT CPT-80546 Prevnar 13 Intramuscular Suspension 13:25:27 CDT 09/26 CPT-G0438 Initial Annual Wellness Exam 11:28:26 CDT CPT-37139 Chest 2V Frontal and Lat 15:00:00 MILLING OPERATOR CPT-81588 Breathing Tx 14:49:25 MILLING OPERATOR CPT-06258 Fluzone High Dose 15:08:41 MILLING OPERATOR CPT-32956 Immunization Single Admin 15:08:41 MILLING OPERATOR CPT-64031 Fluzone High Dose 17:31:19 CDT CPT-18414 Administration single or combination vaccine inc oral 17 :31:19 CDT CPT-48236 Venipuncture Draw Fee 11:03:05 CDT CPT-TCMM Transitional Care Mgmt-Moderate 16:32:35 CDT CPT-67740 Chest 2V Frontal and Lat 11:51:09 CDT CPT-G0008 Administration of Influenza Virus Vaccine 15:09:08 CDT CPT-31930 Fluzone High-Dose Intramuscular Suspension 15:09:08 CDT CPT-10151 Administration single or combination vaccine inc oral 17 :07:02 MILLING OPERATOR CPT-39825 Influenza High Dose age 65+ 17:07:02 MILLING OPERATOR
--- OUTSIDE RECORDS SUMMARY | 2017-02-27 22:26 | XMS REPORT | Clinical Summary ---
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 PREDNISONE 28217661688 No Longer Active Simona Galloway APRN Active LEVAQUIN 500 MG TAB 1 tablet by mouth daily LEVOFLOXACIN 84972362880 No Longer Active Simona Galloway APRN Active PREDNISONE 20 MG TAB take 3 tabs daily for 3 days, 2 tabs daily for 3 days, 1 tab daily for 3 days, 1/2 tab daily for 3 days PREDNISONE 22867490819 No Longer Active Austin Albarado MD Active LEVAQUIN 500 MG TAB 1 tablet by mouth daily LEVOFLOXACIN 92209807329 No Longer Active Madhavi Fiore Active FUROSEMIDE 20 MG TABS take 1 tab po BID for swelling FUROSEMIDE 18160720442 Active Austin Albarado MD Active AMOXICILLIN 500 MG ORAL TABS Take one by mouth 3 times daily, morning, afternoon and evening.] AMOXICILLIN 25096037868 No Longer Active Garcia Stroud MD Active PREDNISONE 20 MG ORAL TABS 3 daily for 3 days than, 2 tabs daily for 3 days than, 2 tabs daily for 3 days than, 1 tab daily for 3 days than 1/2 tab daily for 3 days. PREDNISONE 10344029006 No Longer Active Tracie Arrington APRN Active FLUTICASONE PROPIONATE 50 MCG/ACT SUSP 1 to 2 sprays each nostril daily 08/21 FLUTICASONE PROPIONATE 95055053321 Active Simona Galloway APRN Active PREDNISONE 10 MG TAB take 1 tab po qday for severe COPD PREDNISONE 62633887444 Active Austin Albarado MD Active PREDNISONE 20 MG ORAL TABS 3 TABS PO FOR 3 DAYS,THAN 2 TABS FOR 3 DAYS THAN, 1 TAB FOR 3 DAYS THAN, 1/2 TAB FOR 3 DAYS. PREDNISONE 58000377284 No Longer Active Austin Albarado MD Active LEVAQUIN 500 MG TAB 1 tablet by mouth daily for 10 days. LEVOFLOXACIN 32207614809 No Longer Active Austin Albarado MD Active PREDNISONE 20 MG TAB take 3 tabs daily for 3 days, 2 tabs daily for 3 days, 1 tab daily for 3 days, 1/2 tab daily for 3 days PREDNISONE 96258942032 No Longer Active Simona Galloway APRN Active ZITHROMAX 1 GM ORAL PACK DIRECTED AZITHROMYCIN 48805887841 No Longer Active Simona Galloway APRN Active PREDNISONE 20 MG TAB 2 tabs daily for 4 days, 1 tab daily for 4 days, 1/2 tab daily for 4 days PREDNISONE 84135882612 No Longer Active Austin Albarado MD Active LEVAQUIN 500 MG TAB 1 tablet by mouth daily LEVOFLOXACIN 88920641342 No Longer Active Austin Albarado MD Active PREDNISONE 20 MG TAB take 3 tabs daily for 3 days, 2 tabs daily for 3 days, 1 tab daily for 3 days, 1/2 tab daily for 3 days PREDNISONE 61236371257 No Longer Active Austin Albarado MD Active DOXYCYCLINE HYCLATE 100 MG CAP 1 cap by mouth twice daily DOXYCYCLINE HYCLATE 59483438489 No Longer Active Jillina Frazeldemario DEALER ACCOUNTS INVESTIGATOR Active ALBUTEROL SULFATE (2.5 MG/3ML) 0.083% NEBU nebulize 1 vial q 4-6 hours prn shortness of breath ALBUTEROL SULFATE 18553982027 No Longer Active 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 DEALER ACCOUNTS INVESTIGATOR Active TORSEMIDE 20 MG TABS 1 TAB PO BID TORSEMIDE 57144175087 No Longer Active 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 DEALER ACCOUNTS INVESTIGATOR Active PREDNISONE 20 MG TAB 2 tabs daily for 3 days, 1 tab daily for 3 days, 1/2 tab daily for 2 days PREDNISONE 30297663220 No Longer Active Austin Albarado MD Active LEVOFLOXACIN 500 MG ORAL TABS take 1 tab po qday LEVOFLOXACIN 52303432507 No Longer Active Austin Albarado MD Active PREDNISONE 20 MG TAB 2 tablets today, then 1 tablet by mouth days 2-5 PREDNISONE 14764352133 No Longer Active Austin Albarado MD Active AZITHROMYCIN 500 MG SOLR 1 po q day AZITHROMYCIN 81359395005 No Longer Active Austin Albarado MD Active KEFLEX 500 MG CAP 1 po TID x 7 days CEPHALEXIN 66549276946 No Longer Active Tristan Vaughn MD Active EQL VISION FORMULA TABS 1 TAB PO DAILY MULTIPLE VITAMINS-MINERALS 92308091234 No Longer Active Tristan Vaughn MD Active CHANTIX STARTING MONTH ELVIS 0.5 MG X 11 & 1 MG X 42 TABS 0.5mg daily for 3 days , then 0.5mg BID for 4 days, then 1mg BID VARENICLINE TARTRATE 11436826793 No Longer Active Tristan Vaughn MD Active LEVOTHYROXINE SODIUM 200 MCG TABS 1 TAB PO DAILY LEVOTHYROXINE SODIUM 91774669011 No Longer Active Tristan Vaughn MD Active LIOTHYRONINE SODIUM 50 MCG TABS take 1 tab po qday for hypothyroidism LIOTHYRONINE SODIUM 20455934813 No Longer Active Austin Albarado MD Active SYNTHROID 0.025 MG TAB 1 tablet by mouth daily LEVOTHYROXINE SODIUM 67661663220 No Longer Active Austin Albarado MD Active ARMOUR THYROID 120 MG TABS take 1 tab po qday for hypothyroidism THYROID 36619584950 Active Austin Albarado MD Active FLONASE 50 MCG/ACT SUSP 1 spray each nostril am and hs FLUTICASONE PROPIONATE Active Simona Galloway APRN Active ZITHROMAX 1 GM PACK DIRECTED AZITHROMYCIN 32231820196 No Longer Active Austin Albarado MD Active PREDNISONE 20 MG TAB 2 tabs daily for 3 days, 1 tab daily for 3 days, 1/2 tab daily for 2 days PREDNISONE 51887179667 No Longer Active Austin Albarado MD Active ZITHROMAX 250 MG TAB 2 po today, then 1 po q days 2-5 AZITHROMYCIN 05098475064 No Longer Active Austin Albarado MD Active NYSTATIN-TRIAMCINOLONE 861747-1.1 UNIT/GM-% OINT Apply to affected area TID NYSTATIN-TRIAMCINOLONE 56413973795 Active Austin Albarado MD Active IPRATROPIUM-ALBUTEROL 0.5-2.5 (3) MG/3ML SOLN 1 VIAL NEB Q 6 HRS PRN IPRATROPIUM-ALBUTEROL 72949905102 Active Simonastacie Galloway DEALER ACCOUNTS INVESTIGATOR Active PROAIR HFA 108 (90 BASE) MCG/ACT AERS take 1-2 puffs q4hrs prn cough/ SOB ALBUTEROL SULFATE 23316997025 Active Austin Albarado MD Active ADVAIR DISKUS 500-50 MCG/DOSE AEPB ONE INH BID FLUTICASONE- SALMETEROL 26597150011 Active Austin Albarado MD Active ZITHROMAX 1 GM PACK DIRECTED ZITHROMAX 1 GM PACK 679517 AZITHROMYCIN Inactive SYNTHROID 0.025 MG TAB 1 tablet by mouth daily SYNTHROID 0.025 MG TAB 372804 LEVOTHYROXINE SODIUM Inactive LIOTHYRONINE SODIUM 50 MCG TABS take 1 tab po qday for hypothyroidism LIOTHYRONINE SODIUM 50 MCG TABS 717737 LIOTHYRONINE SODIUM Inactive LEVOTHYROXINE SODIUM 200 MCG TABS 1 TAB PO DAILY LEVOTHYROXINE SODIUM 200 MCG TABS 577688 LEVOTHYROXINE SODIUM Inactive CHANTIX STARTING MONTH ELVIS [...] po q day AZITHROMYCIN 500 MG SOLR 50107903158 AZITHROMYCIN Inactive PREDNISONE 20 MG TAB 2 tablets today, then 1 tablet by mouth days 2-5 PREDNISONE 20 MG TAB 124899 PREDNISONE Inactive TORSEMIDE 20 MG TABS 1 TAB PO BID TORSEMIDE 20 MG TABS 399207 TORSEMIDE Inactive ALBUTEROL SULFATE (2.5 MG/3ML) 0.083% NEBU nebulize 1 vial q 4-6 hours prn shortness of breath ALBUTEROL SULFATE (2.5 MG/3ML) 0.083% NEBU 405590 ALBUTEROL SULFATE Inactive LEVAQUIN 500 MG TAB 1 tablet by mouth daily LEVAQUIN 500 MG TAB 297696 LEVOFLOXACIN Inactive PREDNISONE 20 MG TAB 2 tabs daily for 4 days, 1 tab daily for 4 days, 1/2 tab daily for 4 days PREDNISONE 20 MG TAB 469278 PREDNISONE Inactive ZITHROMAX 1 GM ORAL PACK DIRECTED ZITHROMAX 1 GM ORAL PACK 222473 AZITHROMYCIN Inactive LEVAQUIN 500 MG TAB 1 tablet by mouth daily for 10 days. LEVAQUIN 500 MG TAB 154347 LEVOFLOXACIN Inactive PREDNISONE 20 MG ORAL TABS 3 TABS PO FOR 3 DAYS,THAN 2 TABS FOR 3 DAYS THAN, 1 TAB FOR 3 DAYS THAN, 1/2 TAB FOR 3 DAYS. PREDNISONE 20 MG ORAL TABS 293370 PREDNISONE Inactive PREDNISONE 20 MG ORAL TABS 3 daily for 3 days than, 2 tabs daily for 3 days than, 2 tabs daily for 3 days than, 1 tab daily for 3 days than 1/2 tab daily for 3 days. PREDNISONE 20 MG ORAL TABS 820064 PREDNISONE Inactive AMOXICILLIN 500 MG ORAL TABS Take one by mouth 3 times daily, morning, afternoon and evening.] AMOXICILLIN 500 MG ORAL TABS 524366 AMOXICILLIN Inactive LEVAQUIN 500 MG TAB 1 tablet by mouth daily LEVAQUIN 500 MG TAB 016437 LEVOFLOXACIN Inactive LEVAQUIN 500 MG TAB 1 tablet by mouth daily LEVAQUIN 500 MG TAB 717929 LEVOFLOXACIN Inactive PREDNISONE 20 MG ORAL TABS 3 tabs po for 3 days than,2 tabs po for 3 days,1 tab po for 3 days, 1/2 tab po for 3 days. PREDNISONE 20 MG ORAL TABS 064451 PREDNISONE Inactive ZITHROMAX 250 MG TAB 2 po today, then 1 po q days 2-5 ZITHROMAX 250 MG TAB 0826120 AZITHROMYCIN Inactive PREDNISONE 20 MG TAB 2 tabs daily for 3 days, 1 tab daily for 3 days, 1/2 tab daily for 2 days PREDNISONE 20 MG TAB 534010 PREDNISONE Inactive KEFLEX 500 MG CAP 1 po TID x 7 days KEFLEX 500 MG CAP 745867 CEPHALEXIN Inactive LEVOFLOXACIN 500 MG ORAL TABS take 1 tab po qday LEVOFLOXACIN 500 MG ORAL TABS 760883 LEVOFLOXACIN Inactive PREDNISONE 20 MG TAB 2 tabs daily for 3 days, 1 tab daily for 3 days, 1/2 tab daily for 2 days PREDNISONE 20 MG TAB 885447 PREDNISONE Inactive DOXYCYCLINE HYCLATE 100 MG CAP 1 cap by mouth twice daily DOXYCYCLINE HYCLATE 100 MG CAP 3175642 DOXYCYCLINE HYCLATE Inactive PREDNISONE 20 MG TAB take 3 tabs daily for 3 days, 2 tabs daily for 3 days, 1 tab daily for 3 days, 1/2 tab daily for 3 days PREDNISONE 20 MG TAB 281448 PREDNISONE Inactive PREDNISONE 20 MG TAB take 3 tabs daily for 3 days, 2 tabs daily for 3 days, 1 tab daily for 3 days, 1/2 tab daily for 3 days PREDNISONE 20 MG TAB 783240 PREDNISONE Inactive PREDNISONE 20 MG TAB take 3 tabs daily for 3 days, 2 tabs daily for 3 days, 1 tab daily for 3 days, 1/2 tab daily for 3 days PREDNISONE 20 MG TAB 806829 PREDNISONE Inactive Advance Directives Directive Description Start [...] Peptide - Chemistry sodium, serum 140 mmol/L 336-407 3686/02/09 carbon dioxide, venous blood 39.2 mmol/L 21.0-32.0 [...] Comp. Metabolic Panel, CBC, ... - Chemistry chloride, serum 100 mmol/L 98-107 potassium, serum 4.9 mmol/L 3.5-5.2 carbon dioxide, venous blood 36.3 mmol/L 21.0-32.0 sodium, serum 140 mmol/L 548-624 3688/04/06 TSH 43.52 m[iU]/mL 0.36-3.74 cholesterol, serum 189 mg/dL 517-534 3726/04/06 triglyceride, serum, fasting 117 mg/dL 30-200 HDL cholesterol, serum 70 mg/dL 32-96 LDL cholesterol, serum 96 mg/dL 0-130 blood glucose 62 mg/dL 65-110 urea nitrogen, [...] 142-424 Encounters Code Encounter Date Provider Facility CPT-25810 Level 4 Est. Patient 17:54:41 MANAGER CLINICAL APPLICATIONS Austin Albarado MD [facility] CPT-83134 Level 4 Est. Patient 16:11:14 MANAGER CLINICAL APPLICATIONS Austin Albarado MD [facility] CPT-18014 Level 4 Est. Patient 23:08:56 CDT Austin Albarado MD [facility] CPT-25640 Level 4 Est. Patient 13:27:28 CDT Garcia Stroud MD [facility] CPT-17903 Level 4 Est. Patient 10:51:20 CDT Austin Albarado MD [facility] CPT-34459 Level 4 Est. Patient 20:09:43 MANAGER CLINICAL APPLICATIONS Austin Albarado MD [facility] CPT-71894 Level 4 Est. Patient 21:00:28 CDT Austin Albarado MD [facility] CPT-14708 Level 4 Est. Patient 10:03:37 CDT Austin Albarado MD [facility] CPT-76837 Level 3 Est. Patient 10:50:28 MANAGER CLINICAL APPLICATIONS Austin Albarado MD [facility] CPT-06009 Level 4 Est. Patient 21:31:41 MANAGER CLINICAL APPLICATIONS Austin Albarado MD [facility] CPT-49296 Level 3 Est. Patient 16:22:54 MANAGER CLINICAL APPLICATIONS Jann Law DO [facility] CPT-22124 Level 3 Est. Patient 11:04:53 MANAGER CLINICAL APPLICATIONS Tristan Vaughn MD [facility] CPT-82949 Level 4 Est. Patient 09:50:59 CDT Austin Albarado MD [facility] CPT-20236 Level 4 Est. Patient 09:29:00 CDT Austin Albarado MD [facility] CPT-48585 Level 4 Est. Patient 14:23:07 CDT Austin Albarado MD [facility] CPT-92160 Level 4 Est. Patient 14:27:26 CDT Austin Albarado MD [facility] CPT-50628 Level 4 Est. Patient 12:51:43 MANAGER CLINICAL APPLICATIONS Austin Albarado MD [facility] CPT-61996 Level 3 New Patient 14:17:38 MANAGER CLINICAL APPLICATIONS Austin Albarado MD [facility] CPT-62399 Level 3 New Patient 11:28:18 MANAGER CLINICAL APPLICATIONS Austin Albarado MD [facility] Procedures Code Procedure Name Date Entry Date Standard Description CPT-TCMM Transitional Care Mgmt-Moderate 14:53:36 MANAGER CLINICAL APPLICATIONS CPT-04847 No Charge Offi Visit 10:19:33 MANAGER CLINICAL APPLICATIONS CPT-74426 Chest 2V Frontal and Lat - XRAY USE ONLY 15:01:41 MANAGER CLINICAL APPLICATIONS CPT-54500 First Vx - Ix admin for Medicare patients 16:00:49 CDT CPT-41212 Fluzone High-Dose Intramuscular Suspension 16:00:49 CDT CPT-G0009 Administration of Pneumococcal Vaccine 13:25:27 CDT CPT-06818 Prevnar 13 Intramuscular Suspension 13:25:27 CDT 09/26 CPT-G0438 Initial Annual Wellness Exam 11:28:26 CDT CPT-94872 Chest 2V Frontal and Lat 15:00:00 MANAGER CLINICAL APPLICATIONS CPT-00359 Breathing Tx 14:49:25 MANAGER CLINICAL APPLICATIONS CPT-41796 Fluzone High Dose 15:08:41 MANAGER CLINICAL APPLICATIONS CPT-91931 Immunization Single Admin 15:08:41 MANAGER CLINICAL APPLICATIONS CPT-35892 Fluzone High Dose 17:31:19 CDT CPT-28401 Administration single or combination vaccine inc oral 17 :31:19 CDT CPT-23805 Venipuncture Draw Fee 11:03:05 CDT CPT-TCMM Transitional Care Mgmt-Moderate 16:32:35 CDT CPT-15990 Chest 2V Frontal and Lat 11:51:09 CDT CPT-G0008 Administration of Influenza Virus Vaccine 15:09:08 CDT CPT-32158 Fluzone High-Dose Intramuscular Suspension 15:09:08 CDT CPT-81307 Administration single or combination vaccine inc oral 17 :07:02 MANAGER CLINICAL APPLICATIONS CPT-44943 Influenza High Dose age 65+ 17:07:02 MANAGER CLINICAL APPLICATIONS
--- OUTSIDE RECORDS SUMMARY | 2017-02-27 22:27 | XMS REPORT ---
Author Author [facility] Medical Staff Organization [facility] Address [address] [place], [place] [id number] Phone [phone] Care Team Providers Care Gluing Pressman Name Role Phone YANDY ALBARADO MD PP [phone] Summary purpose TRANSITION OF CARE AUTO GENERATION Chief Complaint and Reason for Visit No authorized Reason for Visit (Admitting Diagnosis) is available for this visit. Problem list No authorized problems tracked for continuity of care are available for this visit. Encounters No authorized problems tracked for encounter diagnoses are available for this visit. Medications No medications recorded for this patient visit Allergies, adverse reactions, alerts Allergen Category Ingredient Status Reaction Severity Onset Sulfa (Sulfonamide Antibiotics) Drug Allergy Sulfa (Sulfonamide Antibiotics) Confirmed or Verified Immunizations No immunizations recorded for this patient visit Relevant diagnostic tests and/or laboratory data RESULTS Radiology Results [id number]:34:00 MYOCARDIAL SPECT MULT PACs Image DATE OF EXAM: Mar 02 2015 [id number] SPECT MULTIPLE : RADIOLOGY REPORT DATE OF SERVICE: 03/02/15 HISTORY: Chest pain, obese, sedentary lifestyle, smoker, chronic obstructive pulmonary disease PHARMACOLOGICAL STRESS AND RESTING MYOCARDIAL PERFUSION STUDY (LEXISCAN CARDIOLITE STUDY) 1000 HOURS The patient initially is given 8.2 mCi of technetium 99m labeled Cardiolite intravenously. After a 72 minute delay, resting SPECT perfusion images are obtained. The patient is then given the pharmacological stress agent by the referring clinician. At maximal stress, the patient is given 33.0 mCi of technetium 99m labeled Cardiolite intravenously. After a 67 minute delay, gated stress SPECT perfusion images are obtained. The resting perfusion images reveal a perfusion defect along the inferior wall of the left ventricle. This is less apparent on the nongated images and is even less apparent on the end systolic gated stress SPECT images. This therefore appears to represent a technical artifact due to the patient's body habitus. The differential diagnosis can include a small area of previous infarction. The stress and resting images are otherwise essentially identical. There is no evidence for any reversible ischemia being present. On the gated images the left ventricular ejection fraction is calculated at 50% which is just at the lower limits of normal. There is normal segmental left ventricular cardiac wall motion and thickening present. The end-systolic volume is 61 cc with the end-diastolic volume being 122 cc. IMPRESSION: 1. There is a small fixed perfusion defect in the inferior wall of the left ventricle present on both the stress and rest images. This is less apparent on the stress images and therefore is probably due to a technical artifact due to the patient's body habitus although a small area of previous infarction is in the differential diagnosis. 2. The stress and resting images are otherwise identical so that there is no evidence for any reversible ischemia. 3. The gated study has a left ventricular ejection fraction calculated at 50% which is normal. There is normal segmental left ventricular cardiac wall motion and thickening present. Feliz Camacho MD SDP/ut03/02/2015 15:25:00 / 03/02/2015 15:29:34 cc:Dr. Yandy Albarado This document has been electronically Signed by: On: History of procedures Procedure Code Code Type Description Date Performed Performing Physician 21162 CPT-4 CARDIOVASCULAR STRESS TEST 03-02-2015 STEPHEN BEYER 72778 CPT-4 HT MUSCLE IMAGE SPECT, MULT 03-02-2015 STEPHEN BEYER A9500 CPT-4 TC99M SESTAMIBI 03-02-2015 STEPHEN BEYER J2785 CPT-4 REGADENOSON INJECTION 03-02-2015 STEPHEN BEYER Functional status Functional Status Finding Observation Time IV Site Location Left hand :20 IV Type peripheral :20 IV Site Information discontinued :16 IV Site Start Attmpt 1 times :20 IV Site Akira 20 :20 IV Site Appearance WNL :16 IV Site Color clear :16 IV Site Patent yes :16 Dressing Type other (specify) Comment: Guaze with Coban. :16 Nursing Note has not received results as yet. [id number] Vital signs Type Value Date Height 58inches :28 Weight 255LB :28 Social history No Social History or smoking status observations were recorded for this visit. ( Unknown if ever smoked.) Treatment Plan No treatment plan text is available for this visit. Hospital discharge instructions Discharge Date/Time 03/02/2015930 Accompanied By ermelinda Dismissal Condition good Disposition on DC home Valuables yes Valuable Type other (specify) Comment: portable oxygen
--- OUTSIDE RECORDS SUMMARY | 2017-02-27 22:27 | XMS REPORT | Clinical Summary ---
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 Tracie Arrington OPHTHALMIC PHOTOGRAPHER Chronic airway obstruction, not elsewhere classified Family history of myocardial infarction V17.3 Active Tracie Arrington OPHTHALMIC PHOTOGRAPHER Family history of ischemic heart disease CAD 414.00 Active Tracie Arrington APRN Coronary atherosclerosis of unspecified type of vessel, match-e-be-nash-she-wish band or graft Peripheral edema 782.3 Active [...] 1 tablet by mouth daily CITALOPRAM HYDROBROMIDE 58595174652 Active Nella José LPN Active KEFLEX 500 MG CAP 1 po BID x 7 days CEPHALEXIN 65086849808 No Longer Active Mica Naren Active KEFLEX 500 MG CAP 1 po BID x 7 days CEPHALEXIN 37327356126 No Longer Active Simona Galloway APRN Active ACYCLOVIR 400 MG TABS 1 pill three times daily ACYCLOVIR 03797192155 No Longer Active Austin Albarado MD Active ACYCLOVIR 400 MG TABS 1 pill three times daily ACYCLOVIR 45575853781 No Longer Active Austin Albarado MD Active ALBUTEROL SULFATE 0.083 % NEBU SOLN one vial per nebulizer every 4 hours as needed Dx. J44.1 ALBUTEROL SULFATE 25292493500 Active Austin Albarado MD Active IPRATROPIUM BROMIDE 0.02 % INH SOLN 1 q 6 hr PRN Dx: J44.1 IPRATROPIUM BROMIDE 55877671644 Active Nella José LPN Active PROAIR HFA 108 (90 BASE) MCG/ACT AERS take 1-2 puffs q 4-6 hrs prn cough/ SOB ALBUTEROL SULFATE 70653119497 Active Nella José LPN Active IPRATROPIUM-ALBUTEROL 0.5-2.5 (3) MG/3ML SOLN 1 VIAL NEB Q 4-6 HRS PRN 04/18 IPRATROPIUM-ALBUTEROL 53828916221 No Longer Active Austin Albarado MD Active ATIVAN 0.5 MG TAB 1 po QD PRN Anxiety LORAZEPAM 64207472661 Active Austin Albarado MD Active PREDNISONE 20 MG ORAL TABS 3 tabs po for 3 days than,2 tabs po for 3 days,1 tab po for 3 days, 1/2 tab po for 3 days. PREDNISONE 72585582888 No Longer Active Simona Galloway APRN Active LEVAQUIN 500 MG TAB 1 tablet by mouth daily LEVOFLOXACIN 10310772603 No Longer Active Simona Galloway APRN Active PREDNISONE 20 MG TAB take 3 tabs daily for 3 days, 2 tabs daily for 3 days, 1 tab daily for 3 days, 1/2 tab daily for 3 days PREDNISONE 23132052046 No Longer Active Austin Albarado MD Active LEVAQUIN 500 MG TAB 1 tablet by mouth daily LEVOFLOXACIN 15370740402 No Longer Active Madhaviavis Rogersida Active FUROSEMIDE 20 MG TABS take 1 tab po BID for swelling FUROSEMIDE 31338065309 Active Austin Albarado MD Active AMOXICILLIN 500 MG ORAL TABS Take one by mouth 3 times daily, morning, afternoon and evening.] AMOXICILLIN 98502527798 No Longer Active Garcia Stroud MD Active PREDNISONE 20 MG ORAL TABS 3 daily for 3 days than, 2 tabs daily for 3 days than, 2 tabs daily for 3 days than, 1 tab daily for 3 days than 1/2 tab daily for 3 days. PREDNISONE 18143840992 No Longer Active Tracie Arrington APRN Active FLUTICASONE PROPIONATE 50 MCG/ACT SUSP 1 to 2 sprays each nostril daily 08/21 FLUTICASONE PROPIONATE 42644144917 Active Austin Albarado MD Active PREDNISONE 10 MG TAB take 1 tab po qday for severe COPD PREDNISONE 06416236215 Active Austin Albarado MD Active PREDNISONE 20 MG ORAL TABS 3 TABS PO FOR 3 DAYS,THAN 2 TABS FOR 3 DAYS THAN, 1 TAB FOR 3 DAYS THAN, 1/2 TAB FOR 3 DAYS. PREDNISONE 38587821899 No Longer Active Austin Albarado MD Active LEVAQUIN 500 MG TAB 1 tablet by mouth daily for 10 days. LEVOFLOXACIN 32039102361 No Longer Active Austin Albarado MD Active PREDNISONE 20 MG TAB take 3 tabs daily for 3 days, 2 tabs daily for 3 days, 1 tab daily for 3 days, 1/2 tab daily for 3 days PREDNISONE 75792614734 No Longer Active Simona Galloway APRN Active ZITHROMAX 1 GM ORAL PACK DIRECTED AZITHROMYCIN 46188151835 No Longer Active Simona Galloway APRN Active PREDNISONE 20 MG TAB 2 tabs daily for 4 days, 1 tab daily for 4 days, 1/2 tab daily for 4 days PREDNISONE 17250511267 No Longer Active Austin Albarado MD Active LEVAQUIN 500 MG TAB 1 tablet by mouth daily LEVOFLOXACIN 38318651116 No Longer Active Austin Albarado MD Active PREDNISONE 20 MG TAB take 3 tabs daily for 3 days, 2 tabs daily for 3 days, 1 tab daily for 3 days, 1/2 tab daily for 3 days PREDNISONE 79397997112 No Longer Active Austin Albarado MD Active DOXYCYCLINE HYCLATE 100 MG CAP 1 cap by mouth twice daily DOXYCYCLINE HYCLATE 42043905957 No Longer Active Esperanza Modi APRN Active ALBUTEROL SULFATE (2.5 MG/3ML) 0.083% NEBU nebulize 1 vial q 4-6 hours prn shortness of breath ALBUTEROL SULFATE 43113451512 No Longer Active Esperanza Modi APRN Active TORSEMIDE 20 MG TABS 1 TAB PO BID TORSEMIDE 35275174125 No Longer Active Joshllaftab Modi APRN Active PREDNISONE 20 MG TAB 2 tabs daily for 3 days, 1 tab daily for 3 days, 1/2 tab daily for 2 days PREDNISONE 04405587391 No Longer Active Austin Albarado MD Active LEVOFLOXACIN 500 MG ORAL TABS take 1 tab po qday LEVOFLOXACIN 52978624590 No Longer Active Austin Albarado MD Active PREDNISONE 20 MG TAB 2 tablets today, then 1 tablet by mouth days 2-5 PREDNISONE 27733392801 No Longer Active Austin Albarado MD Active AZITHROMYCIN 500 MG SOLR 1 po q day AZITHROMYCIN 36175198401 No Longer Active Austin Albarado MD Active KEFLEX 500 MG CAP 1 po TID x 7 days CEPHALEXIN 40806323410 No Longer Active Tristan Vaughn MD Active EQL VISION FORMULA TABS 1 TAB PO DAILY MULTIPLE VITAMINS-MINERALS 71774690313 No Longer Active Tristan Vaughn MD Active CHANTIX STARTING MONTH ELVIS 0.5 MG X 11 & 1 MG X 42 TABS 0.5mg daily for 3 days , then 0.5mg BID for 4 days, then 1mg BID VARENICLINE TARTRATE 09898112862 No Longer Active Tristan Vaughn MD Active LEVOTHYROXINE SODIUM 200 MCG TABS 1 TAB PO DAILY LEVOTHYROXINE SODIUM 52024827118 No Longer Active Tristan Vaughn MD Active LIOTHYRONINE SODIUM 50 MCG TABS take 1 tab po qday for hypothyroidism LIOTHYRONINE SODIUM 15638574420 No Longer Active Austin lAbarado MD Active SYNTHROID 0.025 MG TAB 1 tablet by mouth daily LEVOTHYROXINE SODIUM 50326565585 No Longer Active Austin Albarado MD Active ARMOUR THYROID 120 MG TABS take 1 tab po qday for hypothyroidism THYROID 63125621399 Active Austin Albarado MD Active FLONASE 50 MCG/ACT SUSP 1 spray each nostril am and hs FLUTICASONE PROPIONATE Active Simona Galloway APRN Active ZITHROMAX 1 GM PACK DIRECTED AZITHROMYCIN 61795168512 No Longer Active Austin Albarado MD Active PREDNISONE 20 MG TAB 2 tabs daily for 3 days, 1 tab daily for 3 days, 1/2 tab daily for 2 days PREDNISONE 65645422973 No Longer Active Austin Albarado MD Active ZITHROMAX 250 MG TAB 2 po today, then 1 po q days 2-5 AZITHROMYCIN 88497647668 No Longer Active Austin Albarado MD Active NYSTATIN-TRIAMCINOLONE 520800-3.1 UNIT/GM-% OINT Apply to affected area TID NYSTATIN-TRIAMCINOLONE 42543228684 Active Austin Albarado MD Active ADVAIR DISKUS 500-50 MCG/DOSE AEPB ONE INH BID FLUTICASONE- SALMETEROL 50247565947 Active Austin Albarado MD Active ZITHROMAX 1 GM PACK DIRECTED ZITHROMAX 1 GM PACK 438899 AZITHROMYCIN Inactive SYNTHROID 0.025 MG TAB 1 tablet by mouth daily SYNTHROID 0.025 MG TAB 316942 LEVOTHYROXINE SODIUM Inactive LIOTHYRONINE SODIUM 50 MCG TABS take 1 tab po qday for hypothyroidism LIOTHYRONINE SODIUM 50 MCG TABS 106466 LIOTHYRONINE SODIUM Inactive LEVOTHYROXINE SODIUM 200 MCG TABS 1 TAB PO DAILY LEVOTHYROXINE SODIUM 200 MCG TABS 655545 LEVOTHYROXINE SODIUM Inactive CHANTIX STARTING MONTH ELVIS [...] po q day AZITHROMYCIN 500 MG SOLR 42097445608 AZITHROMYCIN Inactive PREDNISONE 20 MG TAB 2 tablets today, then 1 tablet by mouth days 2-5 PREDNISONE 20 MG TAB 742543 PREDNISONE Inactive TORSEMIDE 20 MG TABS 1 TAB PO BID TORSEMIDE 20 MG TABS 790716 TORSEMIDE Inactive ALBUTEROL SULFATE (2.5 MG/3ML) 0.083% NEBU nebulize 1 vial q 4-6 hours prn shortness of breath ALBUTEROL SULFATE (2.5 MG/3ML) 0.083% [facility] 673815 ALBUTEROL SULFATE Inactive LEVAQUIN 500 MG TAB 1 tablet by mouth daily LEVAQUIN 500 MG TAB 859993 LEVOFLOXACIN Inactive PREDNISONE 20 MG TAB 2 tabs daily for 4 days, 1 tab daily for 4 days, 1/2 tab daily for 4 days PREDNISONE 20 MG TAB 070656 PREDNISONE Inactive ZITHROMAX 1 GM ORAL PACK DIRECTED ZITHROMAX 1 GM ORAL PACK 285881 AZITHROMYCIN Inactive LEVAQUIN 500 MG TAB 1 tablet by mouth daily for 10 days. LEVAQUIN 500 MG TAB 290756 LEVOFLOXACIN Inactive PREDNISONE 20 MG ORAL TABS 3 TABS PO FOR 3 DAYS,THAN 2 TABS FOR 3 DAYS THAN, 1 TAB FOR 3 DAYS THAN, 1/2 TAB FOR 3 DAYS. PREDNISONE 20 MG ORAL TABS 547765 PREDNISONE Inactive PREDNISONE 20 MG ORAL TABS 3 daily for 3 days than, 2 tabs daily for 3 days than, 2 tabs daily for 3 days than, 1 tab daily for 3 days than 1/2 tab daily for 3 days. PREDNISONE 20 MG ORAL TABS 226891 PREDNISONE Inactive AMOXICILLIN 500 MG ORAL TABS Take one by mouth 3 times daily, morning, afternoon and evening.] AMOXICILLIN 500 MG ORAL TABS 494947 AMOXICILLIN Inactive LEVAQUIN 500 MG TAB 1 tablet by mouth daily LEVAQUIN 500 MG TAB 405017 LEVOFLOXACIN Inactive LEVAQUIN 500 MG TAB 1 tablet by mouth daily LEVAQUIN 500 MG TAB 245863 LEVOFLOXACIN Inactive PREDNISONE 20 MG ORAL TABS 3 tabs po for 3 days than,2 tabs po for 3 days,1 tab po for 3 days, 1/2 tab po for 3 days. PREDNISONE 20 MG ORAL TABS 655351 PREDNISONE Inactive ZITHROMAX 250 MG TAB 2 po today, then 1 po q days 2-5 ZITHROMAX 250 MG TAB 3115128 AZITHROMYCIN Inactive PREDNISONE 20 MG TAB 2 tabs daily for 3 days, 1 tab daily for 3 days, 1/2 tab daily for 2 days PREDNISONE 20 MG TAB 238212 PREDNISONE Inactive KEFLEX 500 MG CAP 1 po TID x 7 days KEFLEX 500 MG CAP 303251 CEPHALEXIN Inactive LEVOFLOXACIN 500 MG ORAL TABS take 1 tab po qday LEVOFLOXACIN 500 MG ORAL TABS 063647 LEVOFLOXACIN Inactive PREDNISONE 20 MG TAB 2 tabs daily for 3 days, 1 tab daily for 3 days, 1/2 tab daily for 2 days PREDNISONE 20 MG TAB 205322 PREDNISONE Inactive DOXYCYCLINE HYCLATE 100 MG CAP 1 cap by mouth twice daily DOXYCYCLINE HYCLATE 100 MG CAP 9608035 DOXYCYCLINE HYCLATE Inactive PREDNISONE 20 MG TAB take 3 tabs daily for 3 days, 2 tabs daily for 3 days, 1 tab daily for 3 days, 1/2 tab daily for 3 days PREDNISONE 20 MG TAB 301237 PREDNISONE Inactive PREDNISONE 20 MG TAB take 3 tabs daily for 3 days, 2 tabs daily for 3 days, 1 tab daily for 3 days, 1/2 tab daily for 3 days PREDNISONE 20 MG TAB 581175 PREDNISONE Inactive PREDNISONE 20 MG TAB take 3 tabs daily for 3 days, 2 tabs daily for 3 days, 1 tab daily for 3 days, 1/2 tab daily for 3 days PREDNISONE 20 MG TAB 637982 PREDNISONE Inactive ACYCLOVIR 400 MG TABS 1 pill three times daily ACYCLOVIR 400 MG TABS 097540 ACYCLOVIR Inactive ACYCLOVIR 400 MG TABS 1 pill three times daily ACYCLOVIR 400 MG TABS 155192 ACYCLOVIR Inactive KEFLEX 500 MG CAP 1 po BID x 7 days KEFLEX 500 MG CAP 073725 CEPHALEXIN Inactive KEFLEX 500 MG CAP 1 po BID x 7 days KEFLEX 500 MG CAP 432483 CEPHALEXIN Inactive Advance Directives Directive Description Start [...] Peptide - Chemistry sodium, serum 140 mmol/L 733-904 4587/02/09 carbon dioxide, venous blood 39.2 mmol/L 21.0-32.0 [...] 0.00-1.00 Encounters Code Encounter Date Provider Facility CPT-47152 Level 3 Est. Patient 16:07:19 CDT Simona Galloway APRN [facility] CPT-35251 Level 4 Est. Patient 13:31:03 CDT Austin Albarado MD [facility] CPT-94495 Level 4 Est. Patient 17:54:41 DOMESTIC MAID Austin Albarado MD [facility] CPT-58084 Level 4 Est. Patient 16:11:14 DOMESTIC MAID Austin Albarado MD [facility] CPT-30563 Level 4 Est. Patient 23:08:56 CDT Austin Albarado MD [facility] CPT-20668 Level 4 Est. Patient 13:27:28 CDT Garcia Stroud MD [facility]-32650 Level 4 Est. Patient 10:51:20 CDT Austin Albarado MD [facility] CPT-21458 Level 4 Est. Patient 20:09:43 DOMESTIC MAID Austin Albarado MD [facility] CPT-73991 Level 4 Est. Patient 21:00:28 CDT Austin Albarado MD [facility] CPT-89207 Level 4 Est. Patient 10:03:37 CDT Austin Albarado MD [facility] CPT-91052 Level 3 Est. Patient 10:50:28 DOMESTIC MAID Austin Albarado MD [facility] CPT-67575 Level 4 Est. Patient 21:31:41 DOMESTIC MAID Austin Albarado MD [facility] CPT-15917 Level 3 Est. Patient 16:22:54 DOMESTIC MAID Jann Law DO [facility] CPT-35458 Level 3 Est. Patient 11:04:53 DOMESTIC MAID Tristan Vaughn MD [facility] CPT-26916 Level 4 Est. Patient 09:50:59 CDT Austin Albarado MD [facility] CPT-68431 Level 4 Est. Patient 09:29:00 CDT Austin Albarado MD [facility] CPT-48416 Level 4 Est. Patient 14:23:07 CDT Austin Albarado MD [facility] CPT-95961 Level 4 Est. Patient 14:27:26 CDT Austin Albarado MD [facility] CPT-58868 Level 4 Est. Patient 12:51:43 DOMESTIC MAID Austin Albarado MD [facility] CPT-69791 Level 3 New Patient 14:17:38 DOMESTIC MAID Austin Albarado MD [facility] CPT-03389 Level 3 New Patient 11:28:18 DOMESTIC MAID Austin Albarado MD [facility] Procedures Code Procedure Name Date Entry Date Standard Description CPT-G0439 Subsequent Annual Wellness Exam 08:13:24 CDT CPT-TCMM Transitional Care Mgmt-Moderate 14:53:36 DOMESTIC MAID CPT-88892 No Charge Offi Visit 10:19:33 DOMESTIC MAID CPT-84087 Chest 2V Frontal and Lat - XRAY USE ONLY 15:01:41 DOMESTIC MAID CPT-26234 First Vx - Ix admin for Medicare patients 16:00:49 CDT CPT-49930 Fluzone High-Dose Intramuscular Suspension 16:00:49 CDT CPT-G0009 Administration of Pneumococcal Vaccine 13:25:27 CDT CPT-77863 Prevnar 13 Intramuscular Suspension 13:25:27 CDT 09/26 CPT-G0438 Initial Annual Wellness Exam 11:28:26 CDT CPT-15802 Chest 2V Frontal and Lat 15:00:00 DOMESTIC MAID CPT-41155 Breathing Tx 14:49:25 DOMESTIC MAID CPT-83573 Fluzone High Dose 15:08:41 DOMESTIC MAID CPT-52782 Immunization Single Admin 15:08:41 DOMESTIC MAID CPT-19379 Fluzone High Dose 17:31:19 CDT CPT-08498 Administration single or combination vaccine inc oral 17 :31:19 CDT CPT-19649 Venipuncture Draw Fee 11:03:05 CDT CPT-TCMM Transitional Care Mgmt-Moderate 16:32:35 CDT CPT-96386 Chest 2V Frontal and Lat 11:51:09 CDT CPT-G0008 Administration of Influenza Virus Vaccine 15:09:08 CDT CPT-06640 Fluzone High-Dose Intramuscular Suspension 15:09:08 CDT CPT-34494 Administration single or combination vaccine inc oral 17 :07:02 DOMESTIC MAID CPT-70042 Influenza High Dose age 65+ 17:07:02 DOMESTIC MAID
--- OUTSIDE RECORDS SUMMARY | 2017-02-27 22:27 | XMS REPORT | Clinical Summary ---
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 Tracie Arrington [employer] Chronic airway obstruction, not elsewhere classified Family history of myocardial infarction V17.3 Active Tracie Arrington [employer] Family history of ischemic heart disease CAD 414.00 Active Tracie Arrington [employer] Coronary atherosclerosis of unspecified type of vessel, [place] or graft Peripheral edema 782.3 Active Austin [...] 1 po BID x 7 days CEPHALEXIN 60484391675 No Longer Active Mica Sneed Active KEFLEX 500 MG CAP 1 po BID x 7 days CEPHALEXIN 96208925732 No Longer Active Simona Galloway APRN Active ACYCLOVIR 400 MG TABS 1 pill three times daily ACYCLOVIR 02936719476 No Longer Active Austin Albarado MD Active ACYCLOVIR 400 MG TABS 1 pill three times daily ACYCLOVIR 37564136979 No Longer Active Austin Albarado MD Active ALBUTEROL SULFATE 0.083 % NEBU SOLN one vial per nebulizer every 4 hours as needed Dx. J44.1 ALBUTEROL SULFATE 66212073665 Active Austin Albarado MD Active IPRATROPIUM BROMIDE 0.02 % INH SOLN 1 q 6 hr PRN Dx: J44.1 IPRATROPIUM BROMIDE 70552900842 Active Nella José LPN Active PROAIR HFA 108 (90 BASE) MCG/ACT AERS take 1-2 puffs q 4-6 hrs prn cough/ SOB ALBUTEROL SULFATE 86947785467 Active Nella José LPN Active IPRATROPIUM-ALBUTEROL 0.5-2.5 (3) MG/3ML SOLN 1 VIAL NEB Q 4-6 HRS PRN 04/18 IPRATROPIUM-ALBUTEROL 67261097923 No Longer Active Austin Albarado MD Active ATIVAN 0.5 MG TAB 1 po QD PRN Anxiety LORAZEPAM 56456492929 Active Austin Albarado MD Active PREDNISONE 20 MG ORAL TABS 3 tabs po for 3 days than,2 tabs po for 3 days,1 tab po for 3 days, 1/2 tab po for 3 days. PREDNISONE 21487758522 No Longer Active Simona Galloway APRN Active LEVAQUIN 500 MG TAB 1 tablet by mouth daily LEVOFLOXACIN 09062268108 No Longer Active Simona Galloway APRN Active PREDNISONE 20 MG TAB take 3 tabs daily for 3 days, 2 tabs daily for 3 days, 1 tab daily for 3 days, 1/2 tab daily for 3 days PREDNISONE 49928498187 No Longer Active Austin Albarado MD Active LEVAQUIN 500 MG TAB 1 tablet by mouth daily LEVOFLOXACIN 25827305738 No Longer Active Madhavi Fiore Active FUROSEMIDE 20 MG TABS take 1 tab po BID for swelling FUROSEMIDE 01314668072 Active Austin Albarado MD Active AMOXICILLIN 500 MG ORAL TABS Take one by mouth 3 times daily, morning, afternoon and evening.] AMOXICILLIN 70882619662 No Longer Active Garcia Stroud MD Active PREDNISONE 20 MG ORAL TABS 3 daily for 3 days than, 2 tabs daily for 3 days than, 2 tabs daily for 3 days than, 1 tab daily for 3 days than 1/2 tab daily for 3 days. PREDNISONE 59147454316 No Longer Active Tracie Arirngton APRN Active FLUTICASONE PROPIONATE 50 MCG/ACT SUSP 1 to 2 sprays each nostril daily 08/21 FLUTICASONE PROPIONATE 68544503689 Active Austin Albarado MD Active PREDNISONE 10 MG TAB take 1 tab po qday for severe COPD PREDNISONE 53940339937 Active Austin Albarado MD Active PREDNISONE 20 MG ORAL TABS 3 TABS PO FOR 3 DAYS,THAN 2 TABS FOR 3 DAYS THAN, 1 TAB FOR 3 DAYS THAN, 1/2 TAB FOR 3 DAYS. PREDNISONE 06276501078 No Longer Active Austin Albarado MD Active LEVAQUIN 500 MG TAB 1 tablet by mouth daily for 10 days. LEVOFLOXACIN 23770259169 No Longer Active Austin Albarado MD Active PREDNISONE 20 MG TAB take 3 tabs daily for 3 days, 2 tabs daily for 3 days, 1 tab daily for 3 days, 1/2 tab daily for 3 days PREDNISONE 44400889711 No Longer Active Simona Galloway APRN Active ZITHROMAX 1 GM ORAL PACK DIRECTED AZITHROMYCIN 69906399423 No Longer Active Simona Galloway APRN Active PREDNISONE 20 MG TAB 2 tabs daily for 4 days, 1 tab daily for 4 days, 1/2 tab daily for 4 days PREDNISONE 31379125370 No Longer Active Austin Albarado MD Active LEVAQUIN 500 MG TAB 1 tablet by mouth daily LEVOFLOXACIN 03758025445 No Longer Active Austin Albarado MD Active PREDNISONE 20 MG TAB take 3 tabs daily for 3 days, 2 tabs daily for 3 days, 1 tab daily for 3 days, 1/2 tab daily for 3 days PREDNISONE 44081350676 No Longer Active Austin Albarado MD Active DOXYCYCLINE HYCLATE 100 MG CAP 1 cap by mouth twice daily DOXYCYCLINE HYCLATE 51422501523 No Longer Active 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 [employer] Active ALBUTEROL SULFATE (2.5 MG/3ML) 0.083% NEBU nebulize 1 vial q 4-6 hours prn shortness of breath ALBUTEROL SULFATE 81173508663 No Longer Active 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 [employer] Active TORSEMIDE 20 MG TABS 1 TAB PO BID TORSEMIDE 87190897331 No Longer Active 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 [employer] Active PREDNISONE 20 MG TAB 2 tabs daily for 3 days, 1 tab daily for 3 days, 1/2 tab daily for 2 days PREDNISONE 60283371654 No Longer Active Austin Albarado MD Active LEVOFLOXACIN 500 MG ORAL TABS take 1 tab po qday LEVOFLOXACIN 24185371122 No Longer Active Austin Albarado MD Active PREDNISONE 20 MG TAB 2 tablets today, then 1 tablet by mouth days 2-5 PREDNISONE 06930117590 No Longer Active Austin Albarado MD Active AZITHROMYCIN 500 MG SOLR 1 po q day AZITHROMYCIN 84294702347 No Longer Active Austin Albarado MD Active KEFLEX 500 MG CAP 1 po TID x 7 days CEPHALEXIN 13441848344 No Longer Active Tristan Vaughn MD Active EQL VISION FORMULA TABS 1 TAB PO DAILY MULTIPLE VITAMINS-MINERALS 18881400126 No Longer Active Tristan Vaughn MD Active CHANTIX STARTING MONTH ELVIS 0.5 MG X 11 & 1 MG X 42 TABS 0.5mg daily for 3 days , then 0.5mg BID for 4 days, then 1mg BID VARENICLINE TARTRATE 12547044325 No Longer Active Tristan Vaughn MD Active LEVOTHYROXINE SODIUM 200 MCG TABS 1 TAB PO DAILY LEVOTHYROXINE SODIUM 46787956423 No Longer Active Tristan Vaughn MD Active LIOTHYRONINE SODIUM 50 MCG TABS take 1 tab po qday for hypothyroidism LIOTHYRONINE SODIUM 12842639993 No Longer Active Austin Albarado MD Active SYNTHROID 0.025 MG TAB 1 tablet by mouth daily LEVOTHYROXINE SODIUM 36853629148 No Longer Active Austin Albarado MD Active ARMOUR THYROID 120 MG TABS take 1 tab po qday for hypothyroidism THYROID 69872876486 Active Austin Albarado MD Active FLONASE 50 MCG/ACT SUSP 1 spray each nostril am and hs FLUTICASONE PROPIONATE Active Simona Galloway APRN Active ZITHROMAX 1 GM PACK DIRECTED AZITHROMYCIN 90122592035 No Longer Active Austin Albarado MD Active PREDNISONE 20 MG TAB 2 tabs daily for 3 days, 1 tab daily for 3 days, 1/2 tab daily for 2 days PREDNISONE 58338425910 No Longer Active Austin Albarado MD Active ZITHROMAX 250 MG TAB 2 po today, then 1 po q days 2-5 AZITHROMYCIN 80836946092 No Longer Active Austin Albarado MD Active NYSTATIN-TRIAMCINOLONE 115516-3.1 UNIT/GM-% OINT Apply to affected area TID NYSTATIN-TRIAMCINOLONE 28679592411 Active Austin Albarado MD Active ADVAIR DISKUS 500-50 MCG/DOSE AEPB ONE INH BID FLUTICASONE- SALMETEROL 56392319658 Active Austin Albarado MD Active ZITHROMAX 1 GM PACK DIRECTED ZITHROMAX 1 GM PACK 188082 AZITHROMYCIN Inactive SYNTHROID 0.025 MG TAB 1 tablet by mouth daily SYNTHROID 0.025 MG TAB 307040 LEVOTHYROXINE SODIUM Inactive LIOTHYRONINE SODIUM 50 MCG TABS take 1 tab po qday for hypothyroidism LIOTHYRONINE SODIUM 50 MCG TABS 797025 LIOTHYRONINE SODIUM Inactive LEVOTHYROXINE SODIUM 200 MCG TABS 1 TAB PO DAILY LEVOTHYROXINE SODIUM 200 MCG TABS 782635 LEVOTHYROXINE SODIUM Inactive CHANTIX STARTING MONTH ELVIS [...] po q day AZITHROMYCIN 500 MG SOLR 42014821378 AZITHROMYCIN Inactive PREDNISONE 20 MG TAB 2 tablets today, then 1 tablet by mouth days 2-5 PREDNISONE 20 MG TAB 452380 PREDNISONE Inactive TORSEMIDE 20 MG TABS 1 TAB PO BID TORSEMIDE 20 MG TABS 462031 TORSEMIDE Inactive ALBUTEROL SULFATE (2.5 MG/3ML) 0.083% NEBU nebulize 1 vial q 4-6 hours prn shortness of breath ALBUTEROL SULFATE (2.5 MG/3ML) 0.083% NEBU 807603 ALBUTEROL SULFATE Inactive LEVAQUIN 500 MG TAB 1 tablet by mouth daily LEVAQUIN 500 MG TAB 445325 LEVOFLOXACIN Inactive PREDNISONE 20 MG TAB 2 tabs daily for 4 days, 1 tab daily for 4 days, 1/2 tab daily for 4 days PREDNISONE 20 MG TAB 847149 PREDNISONE Inactive ZITHROMAX 1 GM ORAL PACK DIRECTED ZITHROMAX 1 GM ORAL PACK 133282 AZITHROMYCIN Inactive LEVAQUIN 500 MG TAB 1 tablet by mouth daily for 10 days. LEVAQUIN 500 MG TAB 903238 LEVOFLOXACIN Inactive PREDNISONE 20 MG ORAL TABS 3 TABS PO FOR 3 DAYS,THAN 2 TABS FOR 3 DAYS THAN, 1 TAB FOR 3 DAYS THAN, 1/2 TAB FOR 3 DAYS. PREDNISONE 20 MG ORAL TABS 899448 PREDNISONE Inactive PREDNISONE 20 MG ORAL TABS 3 daily for 3 days than, 2 tabs daily for 3 days than, 2 tabs daily for 3 days than, 1 tab daily for 3 days than 1/2 tab daily for 3 days. PREDNISONE 20 MG ORAL TABS 837060 PREDNISONE Inactive AMOXICILLIN 500 MG ORAL TABS Take one by mouth 3 times daily, morning, afternoon and evening.] AMOXICILLIN 500 MG ORAL TABS 278098 AMOXICILLIN Inactive LEVAQUIN 500 MG TAB 1 tablet by mouth daily LEVAQUIN 500 MG TAB 856454 LEVOFLOXACIN Inactive LEVAQUIN 500 MG TAB 1 tablet by mouth daily LEVAQUIN 500 MG TAB 756056 LEVOFLOXACIN Inactive PREDNISONE 20 MG ORAL TABS 3 tabs po for 3 days than,2 tabs po for 3 days,1 tab po for 3 days, 1/2 tab po for 3 days. PREDNISONE 20 MG ORAL TABS 483435 PREDNISONE Inactive ZITHROMAX 250 MG TAB 2 po today, then 1 po q days 2-5 ZITHROMAX 250 MG TAB 3469759 AZITHROMYCIN Inactive PREDNISONE 20 MG TAB 2 tabs daily for 3 days, 1 tab daily for 3 days, 1/2 tab daily for 2 days PREDNISONE 20 MG TAB 855681 PREDNISONE Inactive KEFLEX 500 MG CAP 1 po TID x 7 days KEFLEX 500 MG CAP 547664 CEPHALEXIN Inactive LEVOFLOXACIN 500 MG ORAL TABS take 1 tab po qday LEVOFLOXACIN 500 MG ORAL TABS 697259 LEVOFLOXACIN Inactive PREDNISONE 20 MG TAB 2 tabs daily for 3 days, 1 tab daily for 3 days, 1/2 tab daily for 2 days PREDNISONE 20 MG TAB 209728 PREDNISONE Inactive DOXYCYCLINE HYCLATE 100 MG CAP 1 cap by mouth twice daily DOXYCYCLINE HYCLATE 100 MG CAP 1501886 DOXYCYCLINE HYCLATE Inactive PREDNISONE 20 MG TAB take 3 tabs daily for 3 days, 2 tabs daily for 3 days, 1 tab daily for 3 days, 1/2 tab daily for 3 days PREDNISONE 20 MG TAB 146008 PREDNISONE Inactive PREDNISONE 20 MG TAB take 3 tabs daily for 3 days, 2 tabs daily for 3 days, 1 tab daily for 3 days, 1/2 tab daily for 3 days PREDNISONE 20 MG TAB 470404 PREDNISONE Inactive PREDNISONE 20 MG TAB take 3 tabs daily for 3 days, 2 tabs daily for 3 days, 1 tab daily for 3 days, 1/2 tab daily for 3 days PREDNISONE 20 MG TAB 373827 PREDNISONE Inactive ACYCLOVIR 400 MG TABS 1 pill three times daily ACYCLOVIR 400 MG TABS 438731 ACYCLOVIR Inactive ACYCLOVIR 400 MG TABS 1 pill three times daily ACYCLOVIR 400 MG TABS 414297 ACYCLOVIR Inactive KEFLEX 500 MG CAP 1 po BID x 7 days KEFLEX 500 MG CAP 233496 CEPHALEXIN Inactive KEFLEX 500 MG CAP 1 po BID x 7 days KEFLEX 500 MG CAP 666868 CEPHALEXIN Inactive Advance Directives Directive Description Start [...] Peptide - Chemistry sodium, serum 140 mmol/L 266-636 6875/02/09 carbon dioxide, venous blood 39.2 mmol/L 21.0-32.0 [...] 0.00-1.00 Encounters Code Encounter Date Provider Facility CPT-[id number] Level 3 Est. Patient 16:07:19 CDT Simona Galloway APRN [facility] CPT-23938 Level 4 Est. Patient 13:31:03 CDT Austin Albarado MD [facility] CPT-61128 Level 4 Est. Patient 17:54:41 TEMPLATE INSPECTOR Austin Albarado MD [facility] CPT-25042 Level 4 Est. Patient 16:11:14 TEMPLATE INSPECTOR Austin Albarado MD [facility] CPT-01179 Level 4 Est. Patient 23:08:56 CDT Austin Albarado MD [facility] CPT-68702 Level 4 Est. Patient 13:27:28 CDT Garcia Stroud MD [facility] CPT-73151 Level 4 Est. Patient 10:51:20 CDT Austin Albarado MD [facility]-28281 Level 4 Est. Patient 20:09:43 TEMPLATE INSPECTOR Austin Albarado MD [facility] CPT-71386 Level 4 Est. Patient 21:00:28 CDT Austin Albarado MD [facility] CPT-53186 Level 4 Est. Patient 10:03:37 CDT Austin Albarado MD [facility] CPT-40390 Level 3 Est. Patient 10:50:28 TEMPLATE INSPECTOR Austin Albarado MD [facility]-66694 Level 4 Est. Patient 21:31:41 TEMPLATE INSPECTOR Austin Albarado MD [facility] CPT-26991 Level 3 Est. Patient 16:22:54 TEMPLATE INSPECTOR Jann Law DO [facility] CPT-74681 Level 3 Est. Patient 11:04:53 TEMPLATE INSPECTOR Tristan Vaughn MD [facility] CPT-17147 Level 4 Est. Patient 09:50:59 CDT Austin Albarado MD [facility] CPT-35812 Level 4 Est. Patient 09:29:00 CDT Austin Albarado MD [facility]-17205 Level 4 Est. Patient 14:23:07 CDT Austin Albarado MD [facility] CPT-02406 Level 4 Est. Patient 14:27:26 CDT Austin Albarado MD [facility] CPT-77736 Level 4 Est. Patient 12:51:43 TEMPLATE INSPECTOR Austin Albarado MD [facility] CPT-05066 Level 3 New Patient 14:17:38 TEMPLATE INSPECTOR Austin Albarado MD [facility] CPT-04890 Level 3 New Patient 11:28:18 TEMPLATE INSPECTOR Austin Albarado MD [facility] Procedures Code Procedure Name Date Entry Date Standard Description CPT-G0439 Subsequent Annual Wellness Exam 08:13:24 CDT CPT-TCMM Transitional Care Mgmt-Moderate 14:53:36 TEMPLATE INSPECTOR CPT-13481 No Charge Offi Visit 10:19:33 TEMPLATE INSPECTOR CPT-96448 Chest 2V Frontal and Lat - XRAY USE ONLY 15:01:41 TEMPLATE INSPECTOR CPT-13256 First Vx - Ix admin for Medicare patients 16:00:49 CDT CPT-78185 Fluzone High-Dose Intramuscular Suspension 16:00:49 CDT CPT-G0009 Administration of Pneumococcal Vaccine 13:25:27 CDT CPT-98023 Prevnar 13 Intramuscular Suspension 13:25:27 CDT 09/26 CPT-G0438 Initial Annual Wellness Exam 11:28:26 CDT CPT-86776 Chest 2V Frontal and Lat 15:00:00 TEMPLATE INSPECTOR CPT-56965 Breathing Tx 14:49:25 TEMPLATE INSPECTOR CPT-03280 Fluzone High Dose 15:08:41 TEMPLATE INSPECTOR CPT-64602 Immunization Single Admin 15:08:41 TEMPLATE INSPECTOR CPT-87539 Fluzone High Dose 17:31:19 CDT CPT-86518 Administration single or combination vaccine inc oral 17 :31:19 CDT CPT-35215 Venipuncture Draw Fee 11:03:05 CDT CPT-TCMM Transitional Care Mgmt-Moderate 16:32:35 CDT CPT-75646 Chest 2V Frontal and Lat 11:51:09 CDT CPT-G0008 Administration of Influenza Virus Vaccine 15:09:08 CDT CPT-59263 Fluzone High-Dose Intramuscular Suspension 15:09:08 CDT CPT-91245 Administration single or combination vaccine inc oral 17 :07:02 TEMPLATE INSPECTOR CPT-14394 Influenza High Dose age 65+ 17:07:02 TEMPLATE INSPECTOR
--- OUTSIDE RECORDS SUMMARY | 2017-02-27 22:28 | XMS REPORT | Clinical Summary ---
Author Author Admin, E Organization [employer] Address Unknown Phone Unavailable Allergies, Adverse Reactions, [...] Coronary atherosclerosis of unspecified type of vessel, unga or graft Peripheral edema 782.3 Active Austin [...] Q 6 hrs prn DX: J44.9 IPRATROPIUM-ALBUTEROL 23379864755 Active Mackenzie Sher RMA Active IPRATROPIUM BROMIDE 0.02 % INH SOLN 1 q 6 hr PRN Dx: J44.1 12/29 IPRATROPIUM BROMIDE 03955430085 No Longer Active Mackenzie Christos RMA Active ACYCLOVIR 400 MG TABS 1 pill three times daily ACYCLOVIR 73303891366 No Longer Active Austin Albarado MD Active POTASSIUM CHLORIDE ER 20 MEQ ORAL CR-TABS 1 po BID along with the lasix 12/24 POTASSIUM CHLORIDE 73324606447 Active Austin Albarado MD Active FUROSEMIDE 40 MG TAB 1 tablet by mouth BID for swelling FUROSEMIDE 31850051026 Active Austin Albarado MD Active CELEXA 20 MG TABS 1 tablet by mouth daily CITALOPRAM HYDROBROMIDE 60837559384 Active Austin Albarado MD Active KEFLEX 500 MG CAP 1 po BID x 7 days CEPHALEXIN 73144353998 No Longer Active Mica Sneed Active KEFLEX 500 MG CAP 1 po BID x 7 days CEPHALEXIN 75935327435 No Longer Active Simona Galloway APRN Active ACYCLOVIR 400 MG TABS 1 pill three times daily ACYCLOVIR 61508924639 No Longer Active Austin Albarado MD Active ACYCLOVIR 400 MG TABS 1 pill three times daily ACYCLOVIR 35225824140 No Longer Active Austin Albarado MD Active ALBUTEROL SULFATE 0.083 % NEBU SOLN one vial per nebulizer every 4 hours as needed Dx. J44.1 ALBUTEROL SULFATE 19604024637 Active Austin Albarado MD Active PROAIR HFA 108 (90 BASE) MCG/ACT AERS take 1-2 puffs q 4-6 hrs prn cough/ SOB ALBUTEROL SULFATE 26729159383 Active Nella José LPN Active IPRATROPIUM-ALBUTEROL 0.5-2.5 (3) MG/3ML SOLN 1 VIAL NEB Q 4-6 HRS PRN 04/18 IPRATROPIUM-ALBUTEROL 20292741881 No Longer Active Austin Albarado MD Active ATIVAN 0.5 MG TAB 1 po QD PRN Anxiety LORAZEPAM 78976372908 Active Austin Albarado MD Active PREDNISONE 20 MG ORAL TABS 3 tabs po for 3 days than,2 tabs po for 3 days,1 tab po for 3 days, 1/2 tab po for 3 days. PREDNISONE 72610813498 No Longer Active Simona Galloway APRN Active LEVAQUIN 500 MG TAB 1 tablet by mouth daily LEVOFLOXACIN 38022079870 No Longer Active Simona Galloway APRN Active PREDNISONE 20 MG TAB take 3 tabs daily for 3 days, 2 tabs daily for 3 days, 1 tab daily for 3 days, 1/2 tab daily for 3 days PREDNISONE 64718009870 No Longer Active Austin Albarado MD Active LEVAQUIN 500 MG TAB 1 tablet by mouth daily LEVOFLOXACIN 20088107828 No Longer Active Madhavi Macarena Active FUROSEMIDE 20 MG TABS take 1 tab po BID for swelling FUROSEMIDE 10575005759 Active Austin Albarado MD Active AMOXICILLIN 500 MG ORAL TABS Take one by mouth 3 times daily, morning, afternoon and evening.] AMOXICILLIN 09641759611 No Longer Active Garcia Stroud MD Active PREDNISONE 20 MG ORAL TABS 3 daily for 3 days than, 2 tabs daily for 3 days than, 2 tabs daily for 3 days than, 1 tab daily for 3 days than 1/2 tab daily for 3 days. PREDNISONE 62966079280 No Longer Active Tracie Arrington APRN Active FLUTICASONE PROPIONATE 50 MCG/ACT SUSP 1 to 2 sprays each nostril daily 08/21 FLUTICASONE PROPIONATE 73873372229 Active Austin Albarado MD Active PREDNISONE 10 MG TAB take 1 tab po qday for severe COPD PREDNISONE 74749753836 Active Austin Albarado MD Active PREDNISONE 20 MG ORAL TABS 3 TABS PO FOR 3 DAYS,THAN 2 TABS FOR 3 DAYS THAN, 1 TAB FOR 3 DAYS THAN, 1/2 TAB FOR 3 DAYS. PREDNISONE 59497255836 No Longer Active Austin Albarado MD Active LEVAQUIN 500 MG TAB 1 tablet by mouth daily for 10 days. LEVOFLOXACIN 91364122937 No Longer Active Austin Albarado MD Active PREDNISONE 20 MG TAB take 3 tabs daily for 3 days, 2 tabs daily for 3 days, 1 tab daily for 3 days, 1/2 tab daily for 3 days PREDNISONE 89155714756 No Longer Active Simona Galloway APRN Active ZITHROMAX 1 GM ORAL PACK DIRECTED AZITHROMYCIN 82602104407 No Longer Active Simona Galloway APRN Active PREDNISONE 20 MG TAB 2 tabs daily for 4 days, 1 tab daily for 4 days, 1/2 tab daily for 4 days PREDNISONE 44905115588 No Longer Active Austin Albarado MD Active LEVAQUIN 500 MG TAB 1 tablet by mouth daily LEVOFLOXACIN 63758135952 No Longer Active Austin Albarado MD Active PREDNISONE 20 MG TAB take 3 tabs daily for 3 days, 2 tabs daily for 3 days, 1 tab daily for 3 days, 1/2 tab daily for 3 days PREDNISONE 74408011713 No Longer Active Austin Albarado MD Active DOXYCYCLINE HYCLATE 100 MG CAP 1 cap by mouth twice daily DOXYCYCLINE HYCLATE 25646129230 No Longer Active Esperanza Modi APRN Active ALBUTEROL SULFATE (2.5 MG/3ML) 0.083% NEBU nebulize 1 vial q 4-6 hours prn shortness of breath ALBUTEROL SULFATE 14109706242 No Longer Active Esperanza Modi APRN Active TORSEMIDE 20 MG TABS 1 TAB PO BID TORSEMIDE 66549480707 No Longer Active Esperanza Modi JESSI Active PREDNISONE 20 MG TAB 2 tabs daily for 3 days, 1 tab daily for 3 days, 1/2 tab daily for 2 days PREDNISONE 42725012865 No Longer Active Austin Albarado MD Active LEVOFLOXACIN 500 MG ORAL TABS take 1 tab po qday LEVOFLOXACIN 98138639078 No Longer Active Austin Albarado MD Active PREDNISONE 20 MG TAB 2 tablets today, then 1 tablet by mouth days 2-5 PREDNISONE 11362448972 No Longer Active Austin Albarado MD Active AZITHROMYCIN 500 MG SOLR 1 po q day AZITHROMYCIN 75429369574 No Longer Active Austin Albarado MD Active KEFLEX 500 MG CAP 1 po TID x 7 days CEPHALEXIN 18691092283 No Longer Active Tristan Vaughn MD Active EQL VISION FORMULA TABS 1 TAB PO DAILY MULTIPLE VITAMINS-MINERALS 36788289846 No Longer Active Tristan Vaughn MD Active CHANTIX STARTING MONTH ELVIS 0.5 MG X 11 & 1 MG X 42 TABS 0.5mg daily for 3 days , then 0.5mg BID for 4 days, then 1mg BID VARENICLINE TARTRATE 15064060725 No Longer Active Tristan Vaughn MD Active LEVOTHYROXINE SODIUM 200 MCG TABS 1 TAB PO DAILY LEVOTHYROXINE SODIUM 78471511406 No Longer Active Tristan Vaughn MD Active LIOTHYRONINE SODIUM 50 MCG TABS take 1 tab po qday for hypothyroidism LIOTHYRONINE SODIUM 98672546190 No Longer Active Austin Albarado MD Active SYNTHROID 0.025 MG TAB 1 tablet by mouth daily LEVOTHYROXINE SODIUM 03994132296 No Longer Active Austin Albarado MD Active ARMOUR THYROID 120 MG TABS take 1 tab po qday for hypothyroidism THYROID 47069320943 Active Austin Albarado MD Active FLONASE 50 MCG/ACT SUSP 1 spray each nostril am and hs FLUTICASONE PROPIONATE Active Simona Galloway APRN Active ZITHROMAX 1 GM PACK DIRECTED AZITHROMYCIN 76769501022 No Longer Active Austin Albarado MD Active PREDNISONE 20 MG TAB 2 tabs daily for 3 days, 1 tab daily for 3 days, 1/2 tab daily for 2 days PREDNISONE 74472112834 No Longer Active Austin Albarado MD Active ZITHROMAX 250 MG TAB 2 po today, then 1 po q days 2-5 AZITHROMYCIN 88744425649 No Longer Active Austin Albarado MD Active NYSTATIN-TRIAMCINOLONE 073331-4.1 UNIT/GM-% OINT Apply to affected area TID NYSTATIN-TRIAMCINOLONE 38079631427 Active Austin Albarado MD Active ADVAIR DISKUS 500-50 MCG/DOSE AEPB ONE INH BID FLUTICASONE- SALMETEROL 46784727273 Active Austin Albarado MD Active ZITHROMAX 1 GM PACK DIRECTED ZITHROMAX 1 GM PACK 155162 AZITHROMYCIN Inactive SYNTHROID 0.025 MG TAB 1 tablet by mouth daily SYNTHROID 0.025 MG TAB 092248 LEVOTHYROXINE SODIUM Inactive LIOTHYRONINE SODIUM 50 MCG TABS take 1 tab po qday for hypothyroidism LIOTHYRONINE SODIUM 50 MCG TABS 629860 LIOTHYRONINE SODIUM Inactive LEVOTHYROXINE SODIUM 200 MCG TABS 1 TAB PO DAILY LEVOTHYROXINE SODIUM 200 MCG TABS 378884 LEVOTHYROXINE SODIUM Inactive CHANTIX STARTING MONTH ELVIS [...] po q day AZITHROMYCIN 500 MG SOLR 08722196984 AZITHROMYCIN Inactive PREDNISONE 20 MG TAB 2 tablets today, then 1 tablet by mouth days 2-5 PREDNISONE 20 MG TAB 450739 PREDNISONE Inactive TORSEMIDE 20 MG TABS 1 TAB PO BID TORSEMIDE 20 MG TABS 575374 TORSEMIDE Inactive ALBUTEROL SULFATE (2.5 MG/3ML) 0.083% NEBU nebulize 1 vial q 4-6 hours prn shortness of breath ALBUTEROL SULFATE (2.5 MG/3ML) 0.083% NEBU 880811 ALBUTEROL SULFATE Inactive LEVAQUIN 500 MG TAB 1 tablet by mouth daily LEVAQUIN 500 MG TAB 790373 LEVOFLOXACIN Inactive PREDNISONE 20 MG TAB 2 tabs daily for 4 days, 1 tab daily for 4 days, 1/2 tab daily for 4 days PREDNISONE 20 MG TAB 561799 PREDNISONE Inactive ZITHROMAX 1 GM ORAL PACK DIRECTED ZITHROMAX 1 GM ORAL PACK 178666 AZITHROMYCIN Inactive LEVAQUIN 500 MG TAB 1 tablet by mouth daily for 10 days. LEVAQUIN 500 MG TAB 537094 LEVOFLOXACIN Inactive PREDNISONE 20 MG ORAL TABS 3 TABS PO FOR 3 DAYS,THAN 2 TABS FOR 3 DAYS THAN, 1 TAB FOR 3 DAYS THAN, 1/2 TAB FOR 3 DAYS. PREDNISONE 20 MG ORAL TABS 247452 PREDNISONE Inactive PREDNISONE 20 MG ORAL TABS 3 daily for 3 days than, 2 tabs daily for 3 days than, 2 tabs daily for 3 days than, 1 tab daily for 3 days than 1/2 tab daily for 3 days. PREDNISONE 20 MG ORAL TABS 089732 PREDNISONE Inactive AMOXICILLIN 500 MG ORAL TABS Take one by mouth 3 times daily, morning, afternoon and evening.] AMOXICILLIN 500 MG ORAL TABS 918009 AMOXICILLIN Inactive LEVAQUIN 500 MG TAB 1 tablet by mouth daily LEVAQUIN 500 MG TAB 101417 LEVOFLOXACIN Inactive LEVAQUIN 500 MG TAB 1 tablet by mouth daily LEVAQUIN 500 MG TAB 851974 LEVOFLOXACIN Inactive PREDNISONE 20 MG ORAL TABS 3 tabs po for 3 days than,2 tabs po for 3 days,1 tab po for 3 days, 1/2 tab po for 3 days. PREDNISONE 20 MG ORAL TABS 902982 PREDNISONE Inactive IPRATROPIUM BROMIDE 0.02 % INH SOLN 1 q 6 hr PRN Dx: J44.1 12/29 IPRATROPIUM BROMIDE 0.02 % INH SOLN 338516 IPRATROPIUM BROMIDE Inactive ZITHROMAX 250 MG TAB 2 po today, then 1 po q days 2-5 ZITHROMAX 250 MG TAB 6404458 AZITHROMYCIN Inactive PREDNISONE 20 MG TAB 2 tabs daily for 3 days, 1 tab daily for 3 days, 1/2 tab daily for 2 days PREDNISONE 20 MG TAB 485953 PREDNISONE Inactive KEFLEX 500 MG CAP 1 po TID x 7 days KEFLEX 500 MG CAP 616868 CEPHALEXIN Inactive LEVOFLOXACIN 500 MG ORAL TABS take 1 tab po qday LEVOFLOXACIN 500 MG ORAL TABS 534427 LEVOFLOXACIN Inactive PREDNISONE 20 MG TAB 2 tabs daily for 3 days, 1 tab daily for 3 days, 1/2 tab daily for 2 days PREDNISONE 20 MG TAB 048728 PREDNISONE Inactive DOXYCYCLINE HYCLATE 100 MG CAP 1 cap by mouth twice daily DOXYCYCLINE HYCLATE 100 MG CAP 0369705 DOXYCYCLINE HYCLATE Inactive PREDNISONE 20 MG TAB take 3 tabs daily for 3 days, 2 tabs daily for 3 days, 1 tab daily for 3 days, 1/2 tab daily for 3 days PREDNISONE 20 MG TAB 651518 PREDNISONE Inactive PREDNISONE 20 MG TAB take 3 tabs daily for 3 days, 2 tabs daily for 3 days, 1 tab daily for 3 days, 1/2 tab daily for 3 days PREDNISONE 20 MG TAB 146653 PREDNISONE Inactive PREDNISONE 20 MG TAB take 3 tabs daily for 3 days, 2 tabs daily for 3 days, 1 tab daily for 3 days, 1/2 tab daily for 3 days PREDNISONE 20 MG TAB 607478 PREDNISONE Inactive ACYCLOVIR 400 MG TABS 1 pill three times daily ACYCLOVIR 400 MG TABS 19720518 ACYCLOVIR Inactive ACYCLOVIR 400 MG TABS 1 pill three times daily ACYCLOVIR 400 MG TABS 19720518 ACYCLOVIR Inactive KEFLEX 500 MG CAP 1 po BID x 7 days KEFLEX 500 MG CAP 310755 CEPHALEXIN Inactive KEFLEX 500 MG CAP 1 po BID x 7 days KEFLEX 500 MG CAP 451773 CEPHALEXIN Inactive ACYCLOVIR 400 MG TABS 1 [...] Peptide - Chemistry sodium, serum 140 mmol/L 668-677 1754/02/09 carbon dioxide, venous blood 39.2 mmol/L 21.0-32.0 [...] 0.00-1.00 Encounters Code Encounter Date Provider Facility CPT-18511 Level 3 Est. Patient 16:07:19 CDT Simona Galloway APRN [facility] CPT-73388 Level 4 Est. Patient 13:31:03 CDT Austin Albarado MD [facility] CPT-35533 Level 4 Est. Patient 17:54:41 NURSE PLASTICS Austin Albarado MD [facility]-29488 Level 4 Est. Patient 16:11:14 NURSE PLASTICS Austin Albarado MD [facility]-80195 Level 4 Est. Patient 23:08:56 CDT Austin Albarado MD [facility]-41512 Level 4 Est. Patient 13:27:28 CDT Garcia Stroud MD [facility]-73339 Level 4 Est. Patient 10:51:20 CDT Austin Albarado MD [facility]-54805 Level 4 Est. Patient 20:09:43 NURSE PLASTICS Austin Albarado MD [facility]-30541 Level 4 Est. Patient 21:00:28 CDT Austin Albarado MD [facility]-41587 Level 4 Est. Patient 10:03:37 CDT Austin Albarado MD [facility]-79803 Level 3 Est. Patient 10:50:28 NURSE PLASTICS Austin Albarado MD [facility] CPT-17200 Level 4 Est. Patient 21:31:41 NURSE PLASTICS Austin Albarado MD [facility]-43375 Level 3 Est. Patient 16:22:54 NURSE PLASTICS Jann Law DO [facility] CPT-96777 Level 3 Est. Patient 11:04:53 NURSE PLASTICS Tristan Vaughn MD [facility]-01954 Level 4 Est. Patient 09:50:59 CDT Austin Albarado MD [facility]-65657 Level 4 Est. Patient 09:29:00 CDT Austin Albarado MD [facility]-06795 Level 4 Est. Patient 14:23:07 CDT Austin Albarado MD [facility]-98529 Level 4 Est. Patient 14:27:26 CDT Austin Albarado MD [facility] CPT-61984 Level 4 Est. Patient 12:51:43 NURSE PLASTICS Austin Albarado MD [facility] CPT-86729 Level 3 New Patient 14:17:38 NURSE PLASTICS Austin Albarado MD [facility] CPT-16702 Level 3 New Patient 11:28:18 NURSE PLASTICS Austin Albarado MD [facility] Procedures Code Procedure Name Date Entry Date Standard Description CPT-G0439 Subsequent Annual Wellness Exam 08:13:24 CDT CPT-TCMM Transitional Care Mgmt-Moderate 14:53:36 NURSE PLASTICS CPT-66225 No Charge Offi Visit 10:19:33 NURSE PLASTICS CPT-14408 Chest 2V Frontal and Lat - XRAY USE ONLY 15:01:41 NURSE PLASTICS CPT-61061 First Vx - Ix admin for Medicare patients 16:00:49 CDT CPT-63175 Fluzone High-Dose Intramuscular Suspension 16:00:49 CDT CPT-G0009 Administration of Pneumococcal Vaccine 13:25:27 CDT CPT-47133 Prevnar 13 Intramuscular Suspension 13:25:27 CDT 09/26 CPT-G0438 Initial Annual Wellness Exam 11:28:26 CDT CPT-94563 Chest 2V Frontal and Lat 15:00:00 NURSE PLASTICS CPT-83190 Breathing Tx 14:49:25 NURSE PLASTICS CPT-64346 Fluzone High Dose 15:08:41 NURSE PLASTICS CPT-48052 Immunization Single Admin 15:08:41 NURSE PLASTICS CPT-99507 Fluzone High Dose 17:31:19 CDT CPT-51006 Administration single or combination vaccine inc oral 17 :31:19 CDT CPT-70653 Venipuncture Draw Fee 11:03:05 CDT CPT-TCMM Transitional Care Mgmt-Moderate 16:32:35 CDT CPT-03038 Chest 2V Frontal and Lat 11:51:09 CDT CPT-G0008 Administration of Influenza Virus Vaccine 15:09:08 CDT CPT-08419 Fluzone High-Dose Intramuscular Suspension 15:09:08 CDT CPT-46932 Administration single or combination vaccine inc oral 17 :07:02 NURSE PLASTICS CPT-75650 Influenza High Dose age 65+ 17:07:02 NURSE PLASTICS
--- OUTSIDE RECORDS SUMMARY | 2017-02-27 22:29 | XMS REPORT | Clinical Summary ---
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 Tracie Arrington DENTAL FINANCIAL COORDINATOR Chronic airway obstruction, not elsewhere classified Family history of myocardial infarction V17.3 Active Tracie Arrington DENTAL FINANCIAL COORDINATOR Family history of ischemic heart disease CAD 414.00 Active Tracie Arrington APRN Coronary atherosclerosis of unspecified type of vessel, [place] or graft Peripheral edema 782.3 Active Austin [...] 1 tablet by mouth daily CITALOPRAM HYDROBROMIDE 20014276072 Active Nella José LPN Active KEFLEX 500 MG CAP 1 po BID x 7 days CEPHALEXIN 16211580192 No Longer Active Mica Naren Active KEFLEX 500 MG CAP 1 po BID x 7 days CEPHALEXIN 92782947094 No Longer Active Simona Galloway APRN Active ACYCLOVIR 400 MG TABS 1 pill three times daily ACYCLOVIR 97038332795 No Longer Active Austin Albarado MD Active ACYCLOVIR 400 MG TABS 1 pill three times daily ACYCLOVIR 19229270205 No Longer Active Austin Albarado MD Active ALBUTEROL SULFATE 0.083 % NEBU SOLN one vial per nebulizer every 4 hours as needed Dx. J44.1 ALBUTEROL SULFATE 58109603719 Active Austin Albarado MD Active IPRATROPIUM BROMIDE 0.02 % INH SOLN 1 q 6 hr PRN Dx: J44.1 IPRATROPIUM BROMIDE 20170202604 Active Nella José LPN Active PROAIR HFA 108 (90 BASE) MCG/ACT AERS take 1-2 puffs q 4-6 hrs prn cough/ SOB ALBUTEROL SULFATE 36916734256 Active Nella José LPN Active IPRATROPIUM-ALBUTEROL 0.5-2.5 (3) MG/3ML SOLN 1 VIAL NEB Q 4-6 HRS PRN 04/18 IPRATROPIUM-ALBUTEROL 18424424249 No Longer Active Austin Albarado MD Active ATIVAN 0.5 MG TAB 1 po QD PRN Anxiety LORAZEPAM 04862410328 Active Austin Albarado MD Active PREDNISONE 20 MG ORAL TABS 3 tabs po for 3 days than,2 tabs po for 3 days,1 tab po for 3 days, 1/2 tab po for 3 days. PREDNISONE 99724060127 No Longer Active Simona Galloway APRN Active LEVAQUIN 500 MG TAB 1 tablet by mouth daily LEVOFLOXACIN 45180243189 No Longer Active Simona Galloway APRN Active PREDNISONE 20 MG TAB take 3 tabs daily for 3 days, 2 tabs daily for 3 days, 1 tab daily for 3 days, 1/2 tab daily for 3 days PREDNISONE 65455890255 No Longer Active Austin Albarado MD Active LEVAQUIN 500 MG TAB 1 tablet by mouth daily LEVOFLOXACIN 86002647119 No Longer Active Mahdaviavis Rogersida Active FUROSEMIDE 20 MG TABS take 1 tab po BID for swelling FUROSEMIDE 30013980632 Active Austin Albarado MD Active AMOXICILLIN 500 MG ORAL TABS Take one by mouth 3 times daily, morning, afternoon and evening.] AMOXICILLIN 69528884431 No Longer Active Garcia Stroud MD Active PREDNISONE 20 MG ORAL TABS 3 daily for 3 days than, 2 tabs daily for 3 days than, 2 tabs daily for 3 days than, 1 tab daily for 3 days than 1/2 tab daily for 3 days. PREDNISONE 62111471142 No Longer Active Tracie Arrington APRN Active FLUTICASONE PROPIONATE 50 MCG/ACT SUSP 1 to 2 sprays each nostril daily 08/21 FLUTICASONE PROPIONATE 64993301382 Active Austin Albarado MD Active PREDNISONE 10 MG TAB take 1 tab po qday for severe COPD PREDNISONE 04163610196 Active Austin Albarado MD Active PREDNISONE 20 MG ORAL TABS 3 TABS PO FOR 3 DAYS,THAN 2 TABS FOR 3 DAYS THAN, 1 TAB FOR 3 DAYS THAN, 1/2 TAB FOR 3 DAYS. PREDNISONE 56977838759 No Longer Active Austin Albarado MD Active LEVAQUIN 500 MG TAB 1 tablet by mouth daily for 10 days. LEVOFLOXACIN 97777595369 No Longer Active Austin Albarado MD Active PREDNISONE 20 MG TAB take 3 tabs daily for 3 days, 2 tabs daily for 3 days, 1 tab daily for 3 days, 1/2 tab daily for 3 days PREDNISONE 38476465815 No Longer Active Simona Galloway APRN Active ZITHROMAX 1 GM ORAL PACK DIRECTED AZITHROMYCIN 77899595380 No Longer Active Simona Galloway APRN Active PREDNISONE 20 MG TAB 2 tabs daily for 4 days, 1 tab daily for 4 days, 1/2 tab daily for 4 days PREDNISONE 72956553323 No Longer Active Austin Albarado MD Active LEVAQUIN 500 MG TAB 1 tablet by mouth daily LEVOFLOXACIN 25046524212 No Longer Active Austin Albarado MD Active PREDNISONE 20 MG TAB take 3 tabs daily for 3 days, 2 tabs daily for 3 days, 1 tab daily for 3 days, 1/2 tab daily for 3 days PREDNISONE 61353883557 No Longer Active Austin Albarado MD Active DOXYCYCLINE HYCLATE 100 MG CAP 1 cap by mouth twice daily DOXYCYCLINE HYCLATE 12892401042 No Longer Active Esperanza Modi APRN Active ALBUTEROL SULFATE (2.5 MG/3ML) 0.083% NEBU nebulize 1 vial q 4-6 hours prn shortness of breath ALBUTEROL SULFATE 36742744322 No Longer Active Esperanza Modi APRN Active TORSEMIDE 20 MG TABS 1 TAB PO BID TORSEMIDE 84199047842 No Longer Active Joshllaftab Modi APRN Active PREDNISONE 20 MG TAB 2 tabs daily for 3 days, 1 tab daily for 3 days, 1/2 tab daily for 2 days PREDNISONE 69679501844 No Longer Active Austin Albarado MD Active LEVOFLOXACIN 500 MG ORAL TABS take 1 tab po qday LEVOFLOXACIN 51311009793 No Longer Active Austin Albarado MD Active PREDNISONE 20 MG TAB 2 tablets today, then 1 tablet by mouth days 2-5 PREDNISONE 88482905964 No Longer Active Austin Albarado MD Active AZITHROMYCIN 500 MG SOLR 1 po q day AZITHROMYCIN 18082880050 No Longer Active Austin Albarado MD Active KEFLEX 500 MG CAP 1 po TID x 7 days CEPHALEXIN 85715792790 No Longer Active Tristan Vaughn MD Active EQL VISION FORMULA TABS 1 TAB PO DAILY MULTIPLE VITAMINS-MINERALS 16970322669 No Longer Active Tristan Vaughn MD Active CHANTIX STARTING MONTH ELVIS 0.5 MG X 11 & 1 MG X 42 TABS 0.5mg daily for 3 days , then 0.5mg BID for 4 days, then 1mg BID VARENICLINE TARTRATE 51527171428 No Longer Active Tristan Vaughn MD Active LEVOTHYROXINE SODIUM 200 MCG TABS 1 TAB PO DAILY LEVOTHYROXINE SODIUM 41037021812 No Longer Active Tristan Vaughn MD Active LIOTHYRONINE SODIUM 50 MCG TABS take 1 tab po qday for hypothyroidism LIOTHYRONINE SODIUM 09064592226 No Longer Active Austin Albarado MD Active SYNTHROID 0.025 MG TAB 1 tablet by mouth daily LEVOTHYROXINE SODIUM 12507142760 No Longer Active Austin Albarado MD Active ARMOUR THYROID 120 MG TABS take 1 tab po qday for hypothyroidism THYROID 25080729536 Active Austin Albarado MD Active FLONASE 50 MCG/ACT SUSP 1 spray each nostril am and hs FLUTICASONE PROPIONATE Active Simona Galloway APRN Active ZITHROMAX 1 GM PACK DIRECTED AZITHROMYCIN 60487524473 No Longer Active Austin Albarado MD Active PREDNISONE 20 MG TAB 2 tabs daily for 3 days, 1 tab daily for 3 days, 1/2 tab daily for 2 days PREDNISONE 15472000456 No Longer Active Austin Albarado MD Active ZITHROMAX 250 MG TAB 2 po today, then 1 po q days 2-5 AZITHROMYCIN 86003725037 No Longer Active Austin Albarado MD Active NYSTATIN-TRIAMCINOLONE 237915-1.1 UNIT/GM-% OINT Apply to affected area TID NYSTATIN-TRIAMCINOLONE 69475063807 Active Austin Albraado MD Active ADVAIR DISKUS 500-50 MCG/DOSE AEPB ONE INH BID FLUTICASONE- SALMETEROL 68763310509 Active Austin Albarado MD Active ZITHROMAX 1 GM PACK DIRECTED ZITHROMAX 1 GM PACK 279276 AZITHROMYCIN Inactive SYNTHROID 0.025 MG TAB 1 tablet by mouth daily SYNTHROID 0.025 MG TAB 435541 LEVOTHYROXINE SODIUM Inactive LIOTHYRONINE SODIUM 50 MCG TABS take 1 tab po qday for hypothyroidism LIOTHYRONINE SODIUM 50 MCG TABS 067088 LIOTHYRONINE SODIUM Inactive LEVOTHYROXINE SODIUM 200 MCG TABS 1 TAB PO DAILY LEVOTHYROXINE SODIUM 200 MCG TABS 832061 LEVOTHYROXINE SODIUM Inactive CHANTIX STARTING MONTH ELVIS [...] po q day AZITHROMYCIN 500 MG SOLR 83625570003 AZITHROMYCIN Inactive PREDNISONE 20 MG TAB 2 tablets today, then 1 tablet by mouth days 2-5 PREDNISONE 20 MG TAB 782844 PREDNISONE Inactive TORSEMIDE 20 MG TABS 1 TAB PO BID TORSEMIDE 20 MG TABS 482890 TORSEMIDE Inactive ALBUTEROL SULFATE (2.5 MG/3ML) 0.083% NEBU nebulize 1 vial q 4-6 hours prn shortness of breath ALBUTEROL SULFATE (2.5 MG/3ML) 0.083% [facility] 808401 ALBUTEROL SULFATE Inactive LEVAQUIN 500 MG TAB 1 tablet by mouth daily LEVAQUIN 500 MG TAB 462144 LEVOFLOXACIN Inactive PREDNISONE 20 MG TAB 2 tabs daily for 4 days, 1 tab daily for 4 days, 1/2 tab daily for 4 days PREDNISONE 20 MG TAB 530315 PREDNISONE Inactive ZITHROMAX 1 GM ORAL PACK DIRECTED ZITHROMAX 1 GM ORAL PACK 617628 AZITHROMYCIN Inactive LEVAQUIN 500 MG TAB 1 tablet by mouth daily for 10 days. LEVAQUIN 500 MG TAB 410178 LEVOFLOXACIN Inactive PREDNISONE 20 MG ORAL TABS 3 TABS PO FOR 3 DAYS,THAN 2 TABS FOR 3 DAYS THAN, 1 TAB FOR 3 DAYS THAN, 1/2 TAB FOR 3 DAYS. PREDNISONE 20 MG ORAL TABS 670301 PREDNISONE Inactive PREDNISONE 20 MG ORAL TABS 3 daily for 3 days than, 2 tabs daily for 3 days than, 2 tabs daily for 3 days than, 1 tab daily for 3 days than 1/2 tab daily for 3 days. PREDNISONE 20 MG ORAL TABS 275721 PREDNISONE Inactive AMOXICILLIN 500 MG ORAL TABS Take one by mouth 3 times daily, morning, afternoon and evening.] AMOXICILLIN 500 MG ORAL TABS 314932 AMOXICILLIN Inactive LEVAQUIN 500 MG TAB 1 tablet by mouth daily LEVAQUIN 500 MG TAB 935806 LEVOFLOXACIN Inactive LEVAQUIN 500 MG TAB 1 tablet by mouth daily LEVAQUIN 500 MG TAB 658283 LEVOFLOXACIN Inactive PREDNISONE 20 MG ORAL TABS 3 tabs po for 3 days than,2 tabs po for 3 days,1 tab po for 3 days, 1/2 tab po for 3 days. PREDNISONE 20 MG ORAL TABS 947255 PREDNISONE Inactive ZITHROMAX 250 MG TAB 2 po today, then 1 po q days 2-5 ZITHROMAX 250 MG TAB 5397471 AZITHROMYCIN Inactive PREDNISONE 20 MG TAB 2 tabs daily for 3 days, 1 tab daily for 3 days, 1/2 tab daily for 2 days PREDNISONE 20 MG TAB 242727 PREDNISONE Inactive KEFLEX 500 MG CAP 1 po TID x 7 days KEFLEX 500 MG CAP 103301 CEPHALEXIN Inactive LEVOFLOXACIN 500 MG ORAL TABS take 1 tab po qday LEVOFLOXACIN 500 MG ORAL TABS 494134 LEVOFLOXACIN Inactive PREDNISONE 20 MG TAB 2 tabs daily for 3 days, 1 tab daily for 3 days, 1/2 tab daily for 2 days PREDNISONE 20 MG TAB 379706 PREDNISONE Inactive DOXYCYCLINE HYCLATE 100 MG CAP 1 cap by mouth twice daily DOXYCYCLINE HYCLATE 100 MG CAP 9541338 DOXYCYCLINE HYCLATE Inactive PREDNISONE 20 MG TAB take 3 tabs daily for 3 days, 2 tabs daily for 3 days, 1 tab daily for 3 days, 1/2 tab daily for 3 days PREDNISONE 20 MG TAB 219566 PREDNISONE Inactive PREDNISONE 20 MG TAB take 3 tabs daily for 3 days, 2 tabs daily for 3 days, 1 tab daily for 3 days, 1/2 tab daily for 3 days PREDNISONE 20 MG TAB 109226 PREDNISONE Inactive PREDNISONE 20 MG TAB take 3 tabs daily for 3 days, 2 tabs daily for 3 days, 1 tab daily for 3 days, 1/2 tab daily for 3 days PREDNISONE 20 MG TAB 652662 PREDNISONE Inactive ACYCLOVIR 400 MG TABS 1 pill three times daily ACYCLOVIR 400 MG TABS 869846 ACYCLOVIR Inactive ACYCLOVIR 400 MG TABS 1 pill three times daily ACYCLOVIR 400 MG TABS 597709 ACYCLOVIR Inactive KEFLEX 500 MG CAP 1 po BID x 7 days KEFLEX 500 MG CAP 405187 CEPHALEXIN Inactive KEFLEX 500 MG CAP 1 po BID x 7 days KEFLEX 500 MG CAP 328467 CEPHALEXIN Inactive Advance Directives Directive Description Start [...] Peptide - Chemistry sodium, serum 140 mmol/L 146-628 5177/02/09 carbon dioxide, venous blood 39.2 mmol/L 21.0-32.0 [...] 0.00-1.00 Encounters Code Encounter Date Provider Facility CPT-97333 Level 3 Est. Patient 16:07:19 CDT Simona Galloway APRN [facility] CPT-07272 Level 4 Est. Patient 13:31:03 CDT Austin Albarado MD [facility] CPT-79663 Level 4 Est. Patient 17:54:41 HOSIERY OPERATOR Austin Albarado MD [facility] CPT-52045 Level 4 Est. Patient 16:11:14 HOSIERY OPERATOR Austin Albarado MD [facility] CPT-27895 Level 4 Est. Patient 23:08:56 CDT Austin Albarado MD [facility] CPT-64614 Level 4 Est. Patient 13:27:28 CDT Garcia Stroud MD [facility] [place]-78804 Level 4 Est. Patient 10:51:20 CDT Austin Albarado MD [facility] CPT-33193 Level 4 Est. Patient 20:09:43 HOSIERY OPERATOR Austin Albarado MD [facility] CPT-12468 Level 4 Est. Patient 21:00:28 CDT Austin Albarado MD [facility] CPT-54415 Level 4 Est. Patient 10:03:37 CDT Austin Albarado MD [facility] CPT-67052 Level 3 Est. Patient 10:50:28 HOSIERY OPERATOR Austin Albarado MD [facility] CPT-36013 Level 4 Est. Patient 21:31:41 HOSIERY OPERATOR Austin Albarado MD [facility] CPT-53482 Level 3 Est. Patient 16:22:54 HOSIERY OPERATOR Jann Law DO [facility] CPT-52898 Level 3 Est. Patient 11:04:53 HOSIERY OPERATOR Tristan Vaughn MD [facility] CPT-23270 Level 4 Est. Patient 09:50:59 CDT Austin Albarado MD [facility] CPT-33095 Level 4 Est. Patient 09:29:00 CDT Austin Albarado MD [facility] CPT-78479 Level 4 Est. Patient 14:23:07 CDT Austin Albarado MD [facility] CPT-54072 Level 4 Est. Patient 14:27:26 CDT Austin Albarado MD [facility] CPT-41036 Level 4 Est. Patient 12:51:43 HOSIERY OPERATOR Austin Albarado MD [facility] CPT-54157 Level 3 New Patient 14:17:38 HOSIERY OPERATOR Austin Albarado MD [facility] CPT-25370 Level 3 New Patient 11:28:18 HOSIERY OPERATOR Austin Albarado MD [facility] Procedures Code Procedure Name Date Entry Date Standard Description CPT-G0439 Subsequent Annual Wellness Exam 08:13:24 CDT CPT-TCMM Transitional Care Mgmt-Moderate 14:53:36 HOSIERY OPERATOR CPT-19545 No Charge Offi Visit 10:19:33 HOSIERY OPERATOR CPT-65744 Chest 2V Frontal and Lat - XRAY USE ONLY 15:01:41 HOSIERY OPERATOR CPT-51617 First Vx - Ix admin for Medicare patients 16:00:49 CDT CPT-08189 Fluzone High-Dose Intramuscular Suspension 16:00:49 CDT CPT-G0009 Administration of Pneumococcal Vaccine 13:25:27 CDT CPT-31536 Prevnar 13 Intramuscular Suspension 13:25:27 CDT 09/26 CPT-G0438 Initial Annual Wellness Exam 11:28:26 CDT CPT-01447 Chest 2V Frontal and Lat 15:00:00 HOSIERY OPERATOR CPT-94672 Breathing Tx 14:49:25 HOSIERY OPERATOR CPT-42831 Fluzone High Dose 15:08:41 HOSIERY OPERATOR CPT-17048 Immunization Single Admin 15:08:41 HOSIERY OPERATOR CPT-84107 Fluzone High Dose 17:31:19 CDT CPT-15910 Administration single or combination vaccine inc oral 17 :31:19 CDT CPT-40371 Venipuncture Draw Fee 11:03:05 CDT CPT-TCMM Transitional Care Mgmt-Moderate 16:32:35 CDT CPT-08536 Chest 2V Frontal and Lat 11:51:09 CDT CPT-G0008 Administration of Influenza Virus Vaccine 15:09:08 CDT CPT-27964 Fluzone High-Dose Intramuscular Suspension 15:09:08 CDT CPT-36528 Administration single or combination vaccine inc oral 17 :07:02 HOSIERY OPERATOR CPT-15032 Influenza High Dose age 65+ 17:07:02 HOSIERY OPERATOR
--- OUTSIDE RECORDS SUMMARY | 2017-02-27 22:30 | XMS REPORT | Clinical Summary ---
Author Author Admin, DILLONE Organization [employer] Address Unknown Phone Unavailable Allergies, Adverse Reactions, [...] Family history of myocardial infarction V17.3 Active Tarcie Arrington APRN Family history of ischemic heart disease CAD 414.00 Active Tracie Arrington APRN Coronary atherosclerosis of unspecified type of vessel, eagle or graft Peripheral edema 782.3 Active Austin [...] 1/2 tab po for 3 days. PREDNISONE 15786292088 No Longer Active Simona Galloway APRN Active LEVAQUIN 500 MG TAB 1 tablet by mouth daily LEVOFLOXACIN 35949104435 No Longer Active Simona Galloway APRN Active PREDNISONE 20 MG TAB take 3 tabs daily for 3 days, 2 tabs daily for 3 days, 1 tab daily for 3 days, 1/2 tab daily for 3 days PREDNISONE 90837669488 No Longer Active Austin Albarado MD Active LEVAQUIN 500 MG TAB 1 tablet by mouth daily LEVOFLOXACIN 34833004417 No Longer Active Madhavi Fiore Active FUROSEMIDE 20 MG TABS take 1 tab po BID for swelling FUROSEMIDE 52221272479 Active Austin Albarado MD Active AMOXICILLIN 500 MG ORAL TABS Take one by mouth 3 times daily, morning, afternoon and evening.] AMOXICILLIN 88084034359 No Longer Active Garcia Stroud MD Active PREDNISONE 20 MG ORAL TABS 3 daily for 3 days than, 2 tabs daily for 3 days than, 2 tabs daily for 3 days than, 1 tab daily for 3 days than 1/2 tab daily for 3 days. PREDNISONE 52547729608 No Longer Active Tracie Arrington APRN Active FLUTICASONE PROPIONATE 50 MCG/ACT SUSP 1 to 2 sprays each nostril daily 08/21 FLUTICASONE PROPIONATE 87537425826 Active Simona Galloway APRN Active PREDNISONE 10 MG TAB take 1 tab po qday for severe COPD PREDNISONE 26980196127 Active Austin Albarado MD Active PREDNISONE 20 MG ORAL TABS 3 TABS PO FOR 3 DAYS,THAN 2 TABS FOR 3 DAYS THAN, 1 TAB FOR 3 DAYS THAN, 1/2 TAB FOR 3 DAYS. PREDNISONE 75655450489 No Longer Active Austin Albarado MD Active LEVAQUIN 500 MG TAB 1 tablet by mouth daily for 10 days. LEVOFLOXACIN 41083792580 No Longer Active Austin Albarado MD Active PREDNISONE 20 MG TAB take 3 tabs daily for 3 days, 2 tabs daily for 3 days, 1 tab daily for 3 days, 1/2 tab daily for 3 days PREDNISONE 54649243336 No Longer Active Simona Galloway APRN Active ZITHROMAX 1 GM ORAL PACK DIRECTED AZITHROMYCIN 27606832094 No Longer Active Simona Galloway APRN Active PREDNISONE 20 MG TAB 2 tabs daily for 4 days, 1 tab daily for 4 days, 1/2 tab daily for 4 days PREDNISONE 73042334329 No Longer Active Austin Albarado MD Active LEVAQUIN 500 MG TAB 1 tablet by mouth daily LEVOFLOXACIN 02043485682 No Longer Active Austin Albarado MD Active PREDNISONE 20 MG TAB take 3 tabs daily for 3 days, 2 tabs daily for 3 days, 1 tab daily for 3 days, 1/2 tab daily for 3 days PREDNISONE 75924414748 No Longer Active Austin Albarado MD Active DOXYCYCLINE HYCLATE 100 MG CAP 1 cap by mouth twice daily DOXYCYCLINE HYCLATE 62349274752 No Longer Active 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 [employer] Active ALBUTEROL SULFATE (2.5 MG/3ML) 0.083% NEBU nebulize 1 vial q 4-6 hours prn shortness of breath ALBUTEROL SULFATE 10143751439 No Longer Active 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 [employer] Active TORSEMIDE 20 MG TABS 1 TAB PO BID TORSEMIDE 33475179630 No Longer Active 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 [employer] Active PREDNISONE 20 MG TAB 2 tabs daily for 3 days, 1 tab daily for 3 days, 1/2 tab daily for 2 days PREDNISONE 74283168714 No Longer Active Austin Albarado MD Active LEVOFLOXACIN 500 MG ORAL TABS take 1 tab po qday LEVOFLOXACIN 95790280031 No Longer Active Austin Albarado MD Active PREDNISONE 20 MG TAB 2 tablets today, then 1 tablet by mouth days 2-5 PREDNISONE 64617814499 No Longer Active Austin Albarado MD Active AZITHROMYCIN 500 MG SOLR 1 po q day AZITHROMYCIN 02606335728 No Longer Active Austin Albarado MD Active KEFLEX 500 MG CAP 1 po TID x 7 days CEPHALEXIN 82557550148 No Longer Active Tristan Vaughn MD Active EQL VISION FORMULA TABS 1 TAB PO DAILY MULTIPLE VITAMINS-MINERALS 60764155896 No Longer Active Tristan Vaughn MD Active CHANTIX STARTING MONTH ELVIS 0.5 MG X 11 & 1 MG X 42 TABS 0.5mg daily for 3 days , then 0.5mg BID for 4 days, then 1mg BID VARENICLINE TARTRATE 34075602562 No Longer Active Tristan Vaughn MD Active LEVOTHYROXINE SODIUM 200 MCG TABS 1 TAB PO DAILY LEVOTHYROXINE SODIUM 57778446125 No Longer Active Tristan Vaughn MD Active LIOTHYRONINE SODIUM 50 MCG TABS take 1 tab po qday for hypothyroidism LIOTHYRONINE SODIUM 87953552538 No Longer Active Austin Albarado MD Active SYNTHROID 0.025 MG TAB 1 tablet by mouth daily LEVOTHYROXINE SODIUM 97673184099 No Longer Active Austin Albarado MD Active ARMOUR THYROID 120 MG TABS take 1 tab po qday for hypothyroidism THYROID 79370656215 Active Austin Albarado MD Active FLONASE 50 MCG/ACT SUSP 1 spray each nostril am and hs FLUTICASONE PROPIONATE Active Simona Galloway APRN Active ZITHROMAX 1 GM PACK DIRECTED AZITHROMYCIN 14063017552 No Longer Active Austin Albarado MD Active PREDNISONE 20 MG TAB 2 tabs daily for 3 days, 1 tab daily for 3 days, 1/2 tab daily for 2 days PREDNISONE 03200117297 No Longer Active Austin Albarado MD Active ZITHROMAX 250 MG TAB 2 po today, then 1 po q days 2-5 AZITHROMYCIN 63980120701 No Longer Active Austin Albarado MD Active NYSTATIN-TRIAMCINOLONE 389250-5.1 UNIT/GM-% OINT Apply to affected area TID NYSTATIN-TRIAMCINOLONE 65035296445 Active Austin Albarado MD Active IPRATROPIUM-ALBUTEROL 0.5-2.5 (3) MG/3ML SOLN 1 VIAL NEB Q 6 HRS PRN IPRATROPIUM-ALBUTEROL 02200373360 Active Simona Nilesh [employer] Active PROAIR HFA 108 (90 BASE) MCG/ACT AERS take 1-2 puffs q4hrs prn cough/ SOB ALBUTEROL SULFATE 38656719354 Active Austin Albarado MD Active ADVAIR DISKUS 500-50 MCG/DOSE AEPB ONE INH BID FLUTICASONE- SALMETEROL 91625490723 Active Austin Albarado MD Active ZITHROMAX 1 GM PACK DIRECTED ZITHROMAX 1 GM PACK 159649 AZITHROMYCIN Inactive SYNTHROID 0.025 MG TAB 1 tablet by mouth daily SYNTHROID 0.025 MG TAB 338983 LEVOTHYROXINE SODIUM Inactive LIOTHYRONINE SODIUM 50 MCG TABS take 1 tab po qday for hypothyroidism LIOTHYRONINE SODIUM 50 MCG TABS 293478 LIOTHYRONINE SODIUM Inactive LEVOTHYROXINE SODIUM 200 MCG TABS 1 TAB PO DAILY LEVOTHYROXINE SODIUM 200 MCG TABS 760198 LEVOTHYROXINE SODIUM Inactive CHANTIX STARTING MONTH ELVIS [...] po q day AZITHROMYCIN 500 MG SOLR 98700145930 AZITHROMYCIN Inactive PREDNISONE 20 MG TAB 2 tablets today, then 1 tablet by mouth days 2-5 PREDNISONE 20 MG TAB 264948 PREDNISONE Inactive TORSEMIDE 20 MG TABS 1 TAB PO BID TORSEMIDE 20 MG TABS 246470 TORSEMIDE Inactive ALBUTEROL SULFATE (2.5 MG/3ML) 0.083% NEBU nebulize 1 vial q 4-6 hours prn shortness of breath ALBUTEROL SULFATE (2.5 MG/3ML) 0.083% NEBU 971283 ALBUTEROL SULFATE Inactive LEVAQUIN 500 MG TAB 1 tablet by mouth daily LEVAQUIN 500 MG TAB 707487 LEVOFLOXACIN Inactive PREDNISONE 20 MG TAB 2 tabs daily for 4 days, 1 tab daily for 4 days, 1/2 tab daily for 4 days PREDNISONE 20 MG TAB 286492 PREDNISONE Inactive ZITHROMAX 1 GM ORAL PACK DIRECTED ZITHROMAX 1 GM ORAL PACK 782409 AZITHROMYCIN Inactive LEVAQUIN 500 MG TAB 1 tablet by mouth daily for 10 days. LEVAQUIN 500 MG TAB 848254 LEVOFLOXACIN Inactive PREDNISONE 20 MG ORAL TABS 3 TABS PO FOR 3 DAYS,THAN 2 TABS FOR 3 DAYS THAN, 1 TAB FOR 3 DAYS THAN, 1/2 TAB FOR 3 DAYS. PREDNISONE 20 MG ORAL TABS 308698 PREDNISONE Inactive PREDNISONE 20 MG ORAL TABS 3 daily for 3 days than, 2 tabs daily for 3 days than, 2 tabs daily for 3 days than, 1 tab daily for 3 days than 1/2 tab daily for 3 days. PREDNISONE 20 MG ORAL TABS 140298 PREDNISONE Inactive AMOXICILLIN 500 MG ORAL TABS Take one by mouth 3 times daily, morning, afternoon and evening.] AMOXICILLIN 500 MG ORAL TABS 785416 AMOXICILLIN Inactive LEVAQUIN 500 MG TAB 1 tablet by mouth daily LEVAQUIN 500 MG TAB 982021 LEVOFLOXACIN Inactive LEVAQUIN 500 MG TAB 1 tablet by mouth daily LEVAQUIN 500 MG TAB 034153 LEVOFLOXACIN Inactive PREDNISONE 20 MG ORAL TABS 3 tabs po for 3 days than,2 tabs po for 3 days,1 tab po for 3 days, 1/2 tab po for 3 days. PREDNISONE 20 MG ORAL TABS 511479 PREDNISONE Inactive ZITHROMAX 250 MG TAB 2 po today, then 1 po q days 2-5 ZITHROMAX 250 MG TAB 3187127 AZITHROMYCIN Inactive PREDNISONE 20 MG TAB 2 tabs daily for 3 days, 1 tab daily for 3 days, 1/2 tab daily for 2 days PREDNISONE 20 MG TAB 373743 PREDNISONE Inactive KEFLEX 500 MG CAP 1 po TID x 7 days KEFLEX 500 MG CAP 582592 CEPHALEXIN Inactive LEVOFLOXACIN 500 MG ORAL TABS take 1 tab po qday LEVOFLOXACIN 500 MG ORAL TABS 836831 LEVOFLOXACIN Inactive PREDNISONE 20 MG TAB 2 tabs daily for 3 days, 1 tab daily for 3 days, 1/2 tab daily for 2 days PREDNISONE 20 MG TAB 244754 PREDNISONE Inactive DOXYCYCLINE HYCLATE 100 MG CAP 1 cap by mouth twice daily DOXYCYCLINE HYCLATE 100 MG CAP 2120729 DOXYCYCLINE HYCLATE Inactive PREDNISONE 20 MG TAB take 3 tabs daily for 3 days, 2 tabs daily for 3 days, 1 tab daily for 3 days, 1/2 tab daily for 3 days PREDNISONE 20 MG TAB 496790 PREDNISONE Inactive PREDNISONE 20 MG TAB take 3 tabs daily for 3 days, 2 tabs daily for 3 days, 1 tab daily for 3 days, 1/2 tab daily for 3 days PREDNISONE 20 MG TAB 803054 PREDNISONE Inactive PREDNISONE 20 MG TAB take 3 tabs daily for 3 days, 2 tabs daily for 3 days, 1 tab daily for 3 days, 1/2 tab daily for 3 days PREDNISONE 20 MG TAB 754247 PREDNISONE Inactive Advance Directives Directive Description Start [...] Peptide - Chemistry sodium, serum 140 mmol/L 791-461 2830/02/09 carbon dioxide, venous blood 39.2 mmol/L 21.0-32.0 [...] 43.52 m[iU]/mL 0.36-3.74 sodium, serum 140 mmol/L 676-544 7925/04/06 carbon dioxide, venous blood 36.3 mmol/L 21.0-32.0 potassium, serum 4.9 mmol/L 3.5-5.2 chloride, serum 100 mmol/L 98-107 blood glucose 62 mg/dL 65-110 urea nitrogen, blood 24 mg/dL 7-18 creatinine, serum 1.09 mg/dL 0.55-1.30 alanine aminotransferase (SGPT), serum 44 U/L 12-78 aspartate aminotransferase (SGOT), serum 25 U/L 15-37 calcium, serum 8.7 mg/dL 8.5-10.1 bilirubin, serum, total 0.50 mg/dL 0.00-1.00 cholesterol, serum 189 mg/dL 910-994 7351/04/06 triglyceride, serum, fasting 117 mg/dL 30-200 HDL [...] 142-424 Encounters Code Encounter Date Provider Facility CPT-90900 Level 4 Est. Patient 17:54:41 [employer] OPERATOR Austin Albarado MD [facility] CPT-19246 Level 4 Est. Patient 16:11:14 [employer] OPERATOR Austin Albarado MD [facility] CPT-45698 Level 4 Est. Patient 23:08:56 CDT Austin Albarado MD [facility] CPT-38835 Level 4 Est. Patient 13:27:28 CDT Garcia Stroud MD [facility] CPT-27309 Level 4 Est. Patient 10:51:20 CDT Austin Albarado MD [facility] CPT-07423 Level 4 Est. Patient 20:09:43 [employer]ERR[employer] OPERATOR Austin Albarado MD [facility] CPT-14635 Level 4 Est. Patient 21:00:28 CDT Austin Albarado MD [facility] CPT-93501 Level 4 Est. Patient 10:03:37 CDT Austin Albarado MD [facility] CPT-49121 Level 3 Est. Patient 10:50:28 [employer] OPERATOR Austin Albarado MD [facility] CPT-70468 Level 4 Est. Patient 21:31:41 [employer] OPERATOR Austin Albarado MD [facility] CPT-07880 Level 3 Est. Patient 16:22:54 [employer] OPERATOR Jann Law DO [facility] CPT-62644 Level 3 Est. Patient 11:04:53 [employer] OPERATOR Tristan Vaughn MD [facility] CPT-59439 Level 4 Est. Patient 09:50:59 CDT Austin Albarado MD [facility] CPT-62455 Level 4 Est. Patient 09:29:00 CDT Austin Albarado MD [facility] CPT-76242 Level 4 Est. Patient 14:23:07 CDT Austin Albarado MD [facility] CPT-04573 Level 4 Est. Patient 14:27:26 CDT Austin Albarado MD [facility] CPT-70010 Level 4 Est. Patient 12:51:43 [employer] OPERATOR Austin Albarado MD [facility] CPT-77411 Level 3 New Patient 14:17:38 [employer] OPERATOR Austin Albarado MD [facility] CPT-73587 Level 3 New Patient 11:28:18 [employer] OPERATOR Austin Albarado MD [facility] Procedures Code Procedure Name Date Entry Date Standard Description CPT-27312 No Charge Offi Visit 10:19:33 [employer] OPERATOR CPT-84141 Chest 2V Frontal and Lat - XRAY USE ONLY 15:01:41 [employer] OPERATOR CPT-10234 First Vx - Ix admin for Medicare patients 16:00:49 CDT CPT-67305 Fluzone High-Dose Intramuscular Suspension 16:00:49 CDT CPT-G0009 Administration of Pneumococcal Vaccine 13:25:27 CDT CPT-58260 Prevnar 13 Intramuscular Suspension 13:25:27 CDT 09/26 CPT-G0438 Initial Annual Wellness Exam 11:28:26 CDT CPT-30287 Chest 2V Frontal and Lat 15:00:00 [employer] OPERATOR CPT-34899 Breathing Tx 14:49:25 [employer] OPERATOR CPT-70291 Fluzone High Dose 15:08:41 [employer] OPERATOR CPT-26491 Immunization Single Admin 15:08:41 [employer] OPERATOR CPT-58743 Fluzone High Dose 17:31:19 CDT CPT-45490 Administration single or combination vaccine inc oral 17 :31:19 CDT CPT-56665 Venipuncture Draw Fee 11:03:05 CDT CPT-TCMM Transitional Care Mgmt-Moderate 16:32:35 CDT CPT-02840 Chest 2V Frontal and Lat 11:51:09 CDT CPT-G0008 Administration of Influenza Virus Vaccine 15:09:08 CDT CPT-15131 Fluzone High-Dose Intramuscular Suspension 15:09:08 CDT CPT-80693 Administration single or combination vaccine inc oral 17 :07:02 [employer] OPERATOR CPT-24311 Influenza High Dose age 65+ 17:07:02 [employer]ARD DERR[employer] OPERATOR
--- OUTSIDE RECORDS SUMMARY | 2017-02-27 22:30 | XMS REPORT | Clinical Summary ---
Author Author Admin, E Organization [employer] Address Unknown Phone Unavailable Allergies, Adverse Reactions, [...] Coronary atherosclerosis of unspecified type of vessel, pokagon or graft Peripheral edema 782.3 Active Austin [...] Q 6 hrs prn DX: J44.9 IPRATROPIUM-ALBUTEROL 55840113716 Active Mackenzie Sher RMA Active IPRATROPIUM BROMIDE 0.02 % INH SOLN 1 q 6 hr PRN Dx: J44.1 12/29 IPRATROPIUM BROMIDE 34348347399 No Longer Active Mackenzie Christos RMA Active ACYCLOVIR 400 MG TABS 1 pill three times daily ACYCLOVIR 63373021840 No Longer Active Austin Albarado MD Active POTASSIUM CHLORIDE ER 20 MEQ ORAL CR-TABS 1 po BID along with the lasix 12/24 POTASSIUM CHLORIDE 36286823378 Active Austin Albarado MD Active FUROSEMIDE 40 MG TAB 1 tablet by mouth BID for swelling FUROSEMIDE 05046339737 Active Austin Albarado MD Active CELEXA 20 MG TABS 1 tablet by mouth daily CITALOPRAM HYDROBROMIDE 51121793397 Active Austin Albarado MD Active KEFLEX 500 MG CAP 1 po BID x 7 days CEPHALEXIN 33677912628 No Longer Active Mica Sneed Active KEFLEX 500 MG CAP 1 po BID x 7 days CEPHALEXIN 06102348375 No Longer Active Simona Galloway APRN Active ACYCLOVIR 400 MG TABS 1 pill three times daily ACYCLOVIR 87976840694 No Longer Active Austin Albarado MD Active ACYCLOVIR 400 MG TABS 1 pill three times daily ACYCLOVIR 68413403489 No Longer Active Austin Albarado MD Active ALBUTEROL SULFATE 0.083 % NEBU SOLN one vial per nebulizer every 4 hours as needed Dx. J44.1 ALBUTEROL SULFATE 25840121540 Active Austin Albarado MD Active PROAIR HFA 108 (90 BASE) MCG/ACT AERS take 1-2 puffs q 4-6 hrs prn cough/ SOB ALBUTEROL SULFATE 95984489363 Active Nella José LPN Active IPRATROPIUM-ALBUTEROL 0.5-2.5 (3) MG/3ML SOLN 1 VIAL NEB Q 4-6 HRS PRN 04/18 IPRATROPIUM-ALBUTEROL 12180389866 No Longer Active Austin Albarado MD Active ATIVAN 0.5 MG TAB 1 po QD PRN Anxiety LORAZEPAM 45391393568 Active Austin Albarado MD Active PREDNISONE 20 MG ORAL TABS 3 tabs po for 3 days than,2 tabs po for 3 days,1 tab po for 3 days, 1/2 tab po for 3 days. PREDNISONE 62635699538 No Longer Active Simona Galloway APRN Active LEVAQUIN 500 MG TAB 1 tablet by mouth daily LEVOFLOXACIN 25269415274 No Longer Active Simona Galloway APRN Active PREDNISONE 20 MG TAB take 3 tabs daily for 3 days, 2 tabs daily for 3 days, 1 tab daily for 3 days, 1/2 tab daily for 3 days PREDNISONE 99430221770 No Longer Active Austin Albarado MD Active LEVAQUIN 500 MG TAB 1 tablet by mouth daily LEVOFLOXACIN 34770034562 No Longer Active Madhavi Macarena Active FUROSEMIDE 20 MG TABS take 1 tab po BID for swelling FUROSEMIDE 13975254494 Active Austin Albarado MD Active AMOXICILLIN 500 MG ORAL TABS Take one by mouth 3 times daily, morning, afternoon and evening.] AMOXICILLIN 11856550379 No Longer Active Garcia Stroud MD Active PREDNISONE 20 MG ORAL TABS 3 daily for 3 days than, 2 tabs daily for 3 days than, 2 tabs daily for 3 days than, 1 tab daily for 3 days than 1/2 tab daily for 3 days. PREDNISONE 80561034416 No Longer Active Trcaie Arrington APRN Active FLUTICASONE PROPIONATE 50 MCG/ACT SUSP 1 to 2 sprays each nostril daily 08/21 FLUTICASONE PROPIONATE 32766227912 Active Austin Albarado MD Active PREDNISONE 10 MG TAB take 1 tab po qday for severe COPD PREDNISONE 72143344040 Active Austin Albarado MD Active PREDNISONE 20 MG ORAL TABS 3 TABS PO FOR 3 DAYS,THAN 2 TABS FOR 3 DAYS THAN, 1 TAB FOR 3 DAYS THAN, 1/2 TAB FOR 3 DAYS. PREDNISONE 56384858315 No Longer Active Austin Albarado MD Active LEVAQUIN 500 MG TAB 1 tablet by mouth daily for 10 days. LEVOFLOXACIN 66816525918 No Longer Active Austin Albarado MD Active PREDNISONE 20 MG TAB take 3 tabs daily for 3 days, 2 tabs daily for 3 days, 1 tab daily for 3 days, 1/2 tab daily for 3 days PREDNISONE 56308152551 No Longer Active Simona Galloway APRN Active ZITHROMAX 1 GM ORAL PACK DIRECTED AZITHROMYCIN 02246172587 No Longer Active Simona Galloway APRN Active PREDNISONE 20 MG TAB 2 tabs daily for 4 days, 1 tab daily for 4 days, 1/2 tab daily for 4 days PREDNISONE 90517892932 No Longer Active Austin Albarado MD Active LEVAQUIN 500 MG TAB 1 tablet by mouth daily LEVOFLOXACIN 57610981650 No Longer Active Austin Albarado MD Active PREDNISONE 20 MG TAB take 3 tabs daily for 3 days, 2 tabs daily for 3 days, 1 tab daily for 3 days, 1/2 tab daily for 3 days PREDNISONE 24661854265 No Longer Active Austin Albarado MD Active DOXYCYCLINE HYCLATE 100 MG CAP 1 cap by mouth twice daily DOXYCYCLINE HYCLATE 09885452515 No Longer Active Esperanza Modi APRN Active ALBUTEROL SULFATE (2.5 MG/3ML) 0.083% NEBU nebulize 1 vial q 4-6 hours prn shortness of breath ALBUTEROL SULFATE 21510913587 No Longer Active Esperanza Modi APRN Active TORSEMIDE 20 MG TABS 1 TAB PO BID TORSEMIDE 05589237621 No Longer Active Esperanza Modi JESSI Active PREDNISONE 20 MG TAB 2 tabs daily for 3 days, 1 tab daily for 3 days, 1/2 tab daily for 2 days PREDNISONE 65875746695 No Longer Active Austin Albarado MD Active LEVOFLOXACIN 500 MG ORAL TABS take 1 tab po qday LEVOFLOXACIN 34620731714 No Longer Active Austin Albarado MD Active PREDNISONE 20 MG TAB 2 tablets today, then 1 tablet by mouth days 2-5 PREDNISONE 23814771809 No Longer Active Austin Albarado MD Active AZITHROMYCIN 500 MG SOLR 1 po q day AZITHROMYCIN 67737526433 No Longer Active Austin Albarado MD Active KEFLEX 500 MG CAP 1 po TID x 7 days CEPHALEXIN 33659451909 No Longer Active Tristan Vaughn MD Active EQL VISION FORMULA TABS 1 TAB PO DAILY MULTIPLE VITAMINS-MINERALS 99775008028 No Longer Active Tristan Vaughn MD Active CHANTIX STARTING MONTH ELVIS 0.5 MG X 11 & 1 MG X 42 TABS 0.5mg daily for 3 days , then 0.5mg BID for 4 days, then 1mg BID VARENICLINE TARTRATE 61313117620 No Longer Active Tristan Vaughn MD Active LEVOTHYROXINE SODIUM 200 MCG TABS 1 TAB PO DAILY LEVOTHYROXINE SODIUM 45376330920 No Longer Active Tristan Vaughn MD Active LIOTHYRONINE SODIUM 50 MCG TABS take 1 tab po qday for hypothyroidism LIOTHYRONINE SODIUM 51381665357 No Longer Active Austin Albarado MD Active SYNTHROID 0.025 MG TAB 1 tablet by mouth daily LEVOTHYROXINE SODIUM 27330026289 No Longer Active Austin Albarado MD Active ARMOUR THYROID 120 MG TABS take 1 tab po qday for hypothyroidism THYROID 54101388354 Active Austin Albarado MD Active FLONASE 50 MCG/ACT SUSP 1 spray each nostril am and hs FLUTICASONE PROPIONATE Active Simona Galloway APRN Active ZITHROMAX 1 GM PACK DIRECTED AZITHROMYCIN 08211064987 No Longer Active Austin Albarado MD Active PREDNISONE 20 MG TAB 2 tabs daily for 3 days, 1 tab daily for 3 days, 1/2 tab daily for 2 days PREDNISONE 87870594952 No Longer Active Austin Albarado MD Active ZITHROMAX 250 MG TAB 2 po today, then 1 po q days 2-5 AZITHROMYCIN 49689358163 No Longer Active Austin Albarado MD Active NYSTATIN-TRIAMCINOLONE 493974-3.1 UNIT/GM-% OINT Apply to affected area TID NYSTATIN-TRIAMCINOLONE 74552282884 Active Austin Albarado MD Active ADVAIR DISKUS 500-50 MCG/DOSE AEPB ONE INH BID FLUTICASONE- SALMETEROL 27338981749 Active Austin Albarado MD Active ZITHROMAX 1 GM PACK DIRECTED ZITHROMAX 1 GM PACK 136863 AZITHROMYCIN Inactive SYNTHROID 0.025 MG TAB 1 tablet by mouth daily SYNTHROID 0.025 MG TAB 504362 LEVOTHYROXINE SODIUM Inactive LIOTHYRONINE SODIUM 50 MCG TABS take 1 tab po qday for hypothyroidism LIOTHYRONINE SODIUM 50 MCG TABS 674808 LIOTHYRONINE SODIUM Inactive LEVOTHYROXINE SODIUM 200 MCG TABS 1 TAB PO DAILY LEVOTHYROXINE SODIUM 200 MCG TABS 208900 LEVOTHYROXINE SODIUM Inactive CHANTIX STARTING MONTH ELVIS [...] po q day AZITHROMYCIN 500 MG SOLR 80421953914 AZITHROMYCIN Inactive PREDNISONE 20 MG TAB 2 tablets today, then 1 tablet by mouth days 2-5 PREDNISONE 20 MG TAB 018771 PREDNISONE Inactive TORSEMIDE 20 MG TABS 1 TAB PO BID TORSEMIDE 20 MG TABS 809544 TORSEMIDE Inactive ALBUTEROL SULFATE (2.5 MG/3ML) 0.083% NEBU nebulize 1 vial q 4-6 hours prn shortness of breath ALBUTEROL SULFATE (2.5 MG/3ML) 0.083% NEBU 291926 ALBUTEROL SULFATE Inactive LEVAQUIN 500 MG TAB 1 tablet by mouth daily LEVAQUIN 500 MG TAB 389610 LEVOFLOXACIN Inactive PREDNISONE 20 MG TAB 2 tabs daily for 4 days, 1 tab daily for 4 days, 1/2 tab daily for 4 days PREDNISONE 20 MG TAB 295553 PREDNISONE Inactive ZITHROMAX 1 GM ORAL PACK DIRECTED ZITHROMAX 1 GM ORAL PACK 196410 AZITHROMYCIN Inactive LEVAQUIN 500 MG TAB 1 tablet by mouth daily for 10 days. LEVAQUIN 500 MG TAB 504590 LEVOFLOXACIN Inactive PREDNISONE 20 MG ORAL TABS 3 TABS PO FOR 3 DAYS,THAN 2 TABS FOR 3 DAYS THAN, 1 TAB FOR 3 DAYS THAN, 1/2 TAB FOR 3 DAYS. PREDNISONE 20 MG ORAL TABS 584721 PREDNISONE Inactive PREDNISONE 20 MG ORAL TABS 3 daily for 3 days than, 2 tabs daily for 3 days than, 2 tabs daily for 3 days than, 1 tab daily for 3 days than 1/2 tab daily for 3 days. PREDNISONE 20 MG ORAL TABS 080981 PREDNISONE Inactive AMOXICILLIN 500 MG ORAL TABS Take one by mouth 3 times daily, morning, afternoon and evening.] AMOXICILLIN 500 MG ORAL TABS 092570 AMOXICILLIN Inactive LEVAQUIN 500 MG TAB 1 tablet by mouth daily LEVAQUIN 500 MG TAB 239249 LEVOFLOXACIN Inactive LEVAQUIN 500 MG TAB 1 tablet by mouth daily LEVAQUIN 500 MG TAB 766980 LEVOFLOXACIN Inactive PREDNISONE 20 MG ORAL TABS 3 tabs po for 3 days than,2 tabs po for 3 days,1 tab po for 3 days, 1/2 tab po for 3 days. PREDNISONE 20 MG ORAL TABS 254683 PREDNISONE Inactive IPRATROPIUM BROMIDE 0.02 % INH SOLN 1 q 6 hr PRN Dx: J44.1 12/29 IPRATROPIUM BROMIDE 0.02 % INH SOLN 571490 IPRATROPIUM BROMIDE Inactive ZITHROMAX 250 MG TAB 2 po today, then 1 po q days 2-5 ZITHROMAX 250 MG TAB 5211632 AZITHROMYCIN Inactive PREDNISONE 20 MG TAB 2 tabs daily for 3 days, 1 tab daily for 3 days, 1/2 tab daily for 2 days PREDNISONE 20 MG TAB 599212 PREDNISONE Inactive KEFLEX 500 MG CAP 1 po TID x 7 days KEFLEX 500 MG CAP 132004 CEPHALEXIN Inactive LEVOFLOXACIN 500 MG ORAL TABS take 1 tab po qday LEVOFLOXACIN 500 MG ORAL TABS 477797 LEVOFLOXACIN Inactive PREDNISONE 20 MG TAB 2 tabs daily for 3 days, 1 tab daily for 3 days, 1/2 tab daily for 2 days PREDNISONE 20 MG TAB 520302 PREDNISONE Inactive DOXYCYCLINE HYCLATE 100 MG CAP 1 cap by mouth twice daily DOXYCYCLINE HYCLATE 100 MG CAP 8031571 DOXYCYCLINE HYCLATE Inactive PREDNISONE 20 MG TAB take 3 tabs daily for 3 days, 2 tabs daily for 3 days, 1 tab daily for 3 days, 1/2 tab daily for 3 days PREDNISONE 20 MG TAB 946827 PREDNISONE Inactive PREDNISONE 20 MG TAB take 3 tabs daily for 3 days, 2 tabs daily for 3 days, 1 tab daily for 3 days, 1/2 tab daily for 3 days PREDNISONE 20 MG TAB 790785 PREDNISONE Inactive PREDNISONE 20 MG TAB take 3 tabs daily for 3 days, 2 tabs daily for 3 days, 1 tab daily for 3 days, 1/2 tab daily for 3 days PREDNISONE 20 MG TAB 777937 PREDNISONE Inactive ACYCLOVIR 400 MG TABS 1 pill three times daily ACYCLOVIR 400 MG TABS 19720518 ACYCLOVIR Inactive ACYCLOVIR 400 MG TABS 1 pill three times daily ACYCLOVIR 400 MG TABS 19720518 ACYCLOVIR Inactive KEFLEX 500 MG CAP 1 po BID x 7 days KEFLEX 500 MG CAP 020307 CEPHALEXIN Inactive KEFLEX 500 MG CAP 1 po BID x 7 days KEFLEX 500 MG CAP 645564 CEPHALEXIN Inactive ACYCLOVIR 400 MG TABS 1 [...] Peptide - Chemistry sodium, serum 140 mmol/L 788-587 3652/02/09 carbon dioxide, venous blood 39.2 mmol/L 21.0-32.0 [...] 0.00-1.00 Encounters Code Encounter Date Provider Facility CPT-47171 Level 3 Est. Patient 16:07:19 CDT Simona Galloway APRN [facility] CPT-12249 Level 4 Est. Patient 13:31:03 CDT Austin Albarado MD [facility] CPT-01622 Level 4 Est. Patient 17:54:41 ASSESSMENT ANALYST Austin Albarado MD [facility]-70924 Level 4 Est. Patient 16:11:14 ASSESSMENT ANALYST Austin Albarado MD [facility]-25639 Level 4 Est. Patient 23:08:56 CDT Austin Albarado MD [facility]-28441 Level 4 Est. Patient 13:27:28 CDT Garcia Stroud MD [facility]-31998 Level 4 Est. Patient 10:51:20 CDT Austin Albarado MD [facility]-95186 Level 4 Est. Patient 20:09:43 ASSESSMENT ANALYST Austin Albarado MD [facility]-41148 Level 4 Est. Patient 21:00:28 CDT Austin Albarado MD [facility]-59972 Level 4 Est. Patient 10:03:37 CDT Austin Albarado MD [facility]-06803 Level 3 Est. Patient 10:50:28 ASSESSMENT ANALYST Austin Albarado MD [facility] CPT-21736 Level 4 Est. Patient 21:31:41 ASSESSMENT ANALYST Austin Albarado MD [facility]-56271 Level 3 Est. Patient 16:22:54 ASSESSMENT ANALYST Jann Law DO [facility] CPT-88550 Level 3 Est. Patient 11:04:53 ASSESSMENT ANALYST Tristan Vaughn MD [facility]-50325 Level 4 Est. Patient 09:50:59 CDT Austin Albarado MD [facility]-30162 Level 4 Est. Patient 09:29:00 CDT Austin Albarado MD [facility]-02449 Level 4 Est. Patient 14:23:07 CDT Austin Albarado MD [facility]-63389 Level 4 Est. Patient 14:27:26 CDT Austin Albarado MD [facility] CPT-25636 Level 4 Est. Patient 12:51:43 ASSESSMENT ANALYST Austin Albarado MD [facility] CPT-00222 Level 3 New Patient 14:17:38 ASSESSMENT ANALYST Austin Albarado MD [facility] CPT-26540 Level 3 New Patient 11:28:18 ASSESSMENT ANALYST Austin Albarado MD [facility] Procedures Code Procedure Name Date Entry Date Standard Description CPT-G0439 Subsequent Annual Wellness Exam 08:13:24 CDT CPT-TCMM Transitional Care Mgmt-Moderate 14:53:36 ASSESSMENT ANALYST CPT-79905 No Charge Offi Visit 10:19:33 ASSESSMENT ANALYST CPT-33224 Chest 2V Frontal and Lat - XRAY USE ONLY 15:01:41 ASSESSMENT ANALYST CPT-46720 First Vx - Ix admin for Medicare patients 16:00:49 CDT CPT-40752 Fluzone High-Dose Intramuscular Suspension 16:00:49 CDT CPT-G0009 Administration of Pneumococcal Vaccine 13:25:27 CDT CPT-83768 Prevnar 13 Intramuscular Suspension 13:25:27 CDT 09/26 CPT-G0438 Initial Annual Wellness Exam 11:28:26 CDT CPT-87993 Chest 2V Frontal and Lat 15:00:00 ASSESSMENT ANALYST CPT-61103 Breathing Tx 14:49:25 ASSESSMENT ANALYST CPT-95302 Fluzone High Dose 15:08:41 ASSESSMENT ANALYST CPT-57812 Immunization Single Admin 15:08:41 ASSESSMENT ANALYST CPT-06922 Fluzone High Dose 17:31:19 CDT CPT-11242 Administration single or combination vaccine inc oral 17 :31:19 CDT CPT-46914 Venipuncture Draw Fee 11:03:05 CDT CPT-TCMM Transitional Care Mgmt-Moderate 16:32:35 CDT CPT-07285 Chest 2V Frontal and Lat 11:51:09 CDT CPT-G0008 Administration of Influenza Virus Vaccine 15:09:08 CDT CPT-28554 Fluzone High-Dose Intramuscular Suspension 15:09:08 CDT CPT-75746 Administration single or combination vaccine inc oral 17 :07:02 ASSESSMENT ANALYST CPT-14801 Influenza High Dose age 65+ 17:07:02 ASSESSMENT ANALYST
--- OUTSIDE RECORDS SUMMARY | 2017-02-27 22:30 | XMS REPORT ---
Author Author [facility] Medical Staff Organization [facility] Address [address] [place], [place] [id number] Phone [phone] Care Team Providers Care Handle Sander Operator Name Role Phone YANDY MARY MD PP [phone] Summary purpose TRANSITION OF CARE AUTO GENERATION [...]
--- OUTSIDE RECORDS SUMMARY | 2017-02-27 22:31 | XMS REPORT | Clinical Summary ---
Author Author Admin, DILLONE Organization [employer] Address Unknown Phone Unavailable Allergies, Adverse Reactions, [...] Coronary atherosclerosis of unspecified type of vessel, kasaan or graft Peripheral edema 782.3 Active Austin [...] 1/2 tab po for 3 days. PREDNISONE 32554154962 No Longer Active Simona Galloway APRN Active LEVAQUIN 500 MG TAB 1 tablet by mouth daily LEVOFLOXACIN 33238139856 No Longer Active Simona Galloway APRN Active PREDNISONE 20 MG TAB take 3 tabs daily for 3 days, 2 tabs daily for 3 days, 1 tab daily for 3 days, 1/2 tab daily for 3 days PREDNISONE 17455802632 No Longer Active Austin Albarado MD Active LEVAQUIN 500 MG TAB 1 tablet by mouth daily LEVOFLOXACIN 26044085359 No Longer Active Madhavi Fiore Active FUROSEMIDE 20 MG TABS take 1 tab po BID for swelling FUROSEMIDE 39727277162 Active Austin Albarado MD Active AMOXICILLIN 500 MG ORAL TABS Take one by mouth 3 times daily, morning, afternoon and evening.] AMOXICILLIN 91323772910 No Longer Active Garcia Stroud MD Active PREDNISONE 20 MG ORAL TABS 3 daily for 3 days than, 2 tabs daily for 3 days than, 2 tabs daily for 3 days than, 1 tab daily for 3 days than 1/2 tab daily for 3 days. PREDNISONE 99711054064 No Longer Active Tracie Arrington APRN Active FLUTICASONE PROPIONATE 50 MCG/ACT SUSP 1 to 2 sprays each nostril daily 08/21 FLUTICASONE PROPIONATE 42549323620 Active Simona Galloway APRN Active PREDNISONE 10 MG TAB take 1 tab po qday for severe COPD PREDNISONE 16637161646 Active Austin Albarado MD Active PREDNISONE 20 MG ORAL TABS 3 TABS PO FOR 3 DAYS,THAN 2 TABS FOR 3 DAYS THAN, 1 TAB FOR 3 DAYS THAN, 1/2 TAB FOR 3 DAYS. PREDNISONE 82762117936 No Longer Active Austin Albarado MD Active LEVAQUIN 500 MG TAB 1 tablet by mouth daily for 10 days. LEVOFLOXACIN 67092358587 No Longer Active Austin Albarado MD Active PREDNISONE 20 MG TAB take 3 tabs daily for 3 days, 2 tabs daily for 3 days, 1 tab daily for 3 days, 1/2 tab daily for 3 days PREDNISONE 37570257599 No Longer Active Simona Galloway APRN Active ZITHROMAX 1 GM ORAL PACK DIRECTED AZITHROMYCIN 76395482745 No Longer Active Simona Galloway APRN Active PREDNISONE 20 MG TAB 2 tabs daily for 4 days, 1 tab daily for 4 days, 1/2 tab daily for 4 days PREDNISONE 92429947217 No Longer Active Austin Albarado MD Active LEVAQUIN 500 MG TAB 1 tablet by mouth daily LEVOFLOXACIN 67345885937 No Longer Active Austin Albarado MD Active PREDNISONE 20 MG TAB take 3 tabs daily for 3 days, 2 tabs daily for 3 days, 1 tab daily for 3 days, 1/2 tab daily for 3 days PREDNISONE 78474387596 No Longer Active Austin Albarado MD Active DOXYCYCLINE HYCLATE 100 MG CAP 1 cap by mouth twice daily DOXYCYCLINE HYCLATE 62106750195 No Longer Active 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 ALBUTEROL SULFATE (2.5 MG/3ML) 0.083% NEBU nebulize 1 vial q 4-6 hours prn shortness of breath ALBUTEROL SULFATE 74195693529 No Longer Active 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 TORSEMIDE 20 MG TABS 1 TAB PO BID TORSEMIDE 89056388484 No Longer Active 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 PREDNISONE 20 MG TAB 2 tabs daily for 3 days, 1 tab daily for 3 days, 1/2 tab daily for 2 days PREDNISONE 99198247106 No Longer Active Austin Albarado MD Active LEVOFLOXACIN 500 MG ORAL TABS take 1 tab po qday LEVOFLOXACIN 90954075254 No Longer Active Austin Albarado MD Active PREDNISONE 20 MG TAB 2 tablets today, then 1 tablet by mouth days 2-5 PREDNISONE 50883464451 No Longer Active Austin Albarado MD Active AZITHROMYCIN 500 MG SOLR 1 po q day AZITHROMYCIN 49778156058 No Longer Active Austin Albarado MD Active KEFLEX 500 MG CAP 1 po TID x 7 days CEPHALEXIN 13107816955 No Longer Active Tristan Vaughn MD Active EQL VISION FORMULA TABS 1 TAB PO DAILY MULTIPLE VITAMINS-MINERALS 63253316123 No Longer Active Tristan Vaughn MD Active CHANTIX STARTING MONTH ELVIS 0.5 MG X 11 & 1 MG X 42 TABS 0.5mg daily for 3 days , then 0.5mg BID for 4 days, then 1mg BID VARENICLINE TARTRATE 34361730541 No Longer Active Tristan Vaughn MD Active LEVOTHYROXINE SODIUM 200 MCG TABS 1 TAB PO DAILY LEVOTHYROXINE SODIUM 22766480455 No Longer Active Tristan Vaughn MD Active LIOTHYRONINE SODIUM 50 MCG TABS take 1 tab po qday for hypothyroidism LIOTHYRONINE SODIUM 70709146605 No Longer Active Austin Albarado MD Active SYNTHROID 0.025 MG TAB 1 tablet by mouth daily LEVOTHYROXINE SODIUM 42564373890 No Longer Active Austin Albarado MD Active ARMOUR THYROID 120 MG TABS take 1 tab po qday for hypothyroidism THYROID 46847006910 Active Austin Albarado MD Active FLONASE 50 MCG/ACT SUSP 1 spray each nostril am and hs FLUTICASONE PROPIONATE Active Simona Galloway APRN Active ZITHROMAX 1 GM PACK DIRECTED AZITHROMYCIN 46515430404 No Longer Active Austin Albarado MD Active PREDNISONE 20 MG TAB 2 tabs daily for 3 days, 1 tab daily for 3 days, 1/2 tab daily for 2 days PREDNISONE 59571385927 No Longer Active Austin Albarado MD Active ZITHROMAX 250 MG TAB 2 po today, then 1 po q days 2-5 AZITHROMYCIN 53258686961 No Longer Active Austin Albarado MD Active NYSTATIN-TRIAMCINOLONE 773947-8.1 UNIT/GM-% OINT Apply to affected area TID NYSTATIN-TRIAMCINOLONE 39857024758 Active Austin Albarado MD Active IPRATROPIUM-ALBUTEROL 0.5-2.5 (3) MG/3ML SOLN 1 VIAL NEB Q 6 HRS PRN IPRATROPIUM-ALBUTEROL 65568332331 Active Simona Nilesh 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 PROAIR HFA 108 (90 BASE) MCG/ACT AERS take 1-2 puffs q4hrs prn cough/ SOB ALBUTEROL SULFATE 59444234507 Active Austin Albarado MD Active ADVAIR DISKUS 500-50 MCG/DOSE AEPB ONE INH BID FLUTICASONE- SALMETEROL 59210132186 Active Austin Albarado MD Active ZITHROMAX 1 GM PACK DIRECTED ZITHROMAX 1 GM PACK 394976 AZITHROMYCIN Inactive SYNTHROID 0.025 MG TAB 1 tablet by mouth daily SYNTHROID 0.025 MG TAB 576658 LEVOTHYROXINE SODIUM Inactive LIOTHYRONINE SODIUM 50 MCG TABS take 1 tab po qday for hypothyroidism LIOTHYRONINE SODIUM 50 MCG TABS 855991 LIOTHYRONINE SODIUM Inactive LEVOTHYROXINE SODIUM 200 MCG TABS 1 TAB PO DAILY LEVOTHYROXINE SODIUM 200 MCG TABS 430956 LEVOTHYROXINE SODIUM Inactive CHANTIX STARTING MONTH ELVIS [...] po q day AZITHROMYCIN 500 MG SOLR 38353240313 AZITHROMYCIN Inactive PREDNISONE 20 MG TAB 2 tablets today, then 1 tablet by mouth days 2-5 PREDNISONE 20 MG TAB 088323 PREDNISONE Inactive TORSEMIDE 20 MG TABS 1 TAB PO BID TORSEMIDE 20 MG TABS 611539 TORSEMIDE Inactive ALBUTEROL SULFATE (2.5 MG/3ML) 0.083% NEBU nebulize 1 vial q 4-6 hours prn shortness of breath ALBUTEROL SULFATE (2.5 MG/3ML) 0.083% NEBU 928972 ALBUTEROL SULFATE Inactive LEVAQUIN 500 MG TAB 1 tablet by mouth daily LEVAQUIN 500 MG TAB 954869 LEVOFLOXACIN Inactive PREDNISONE 20 MG TAB 2 tabs daily for 4 days, 1 tab daily for 4 days, 1/2 tab daily for 4 days PREDNISONE 20 MG TAB 006163 PREDNISONE Inactive ZITHROMAX 1 GM ORAL PACK DIRECTED ZITHROMAX 1 GM ORAL PACK 298108 AZITHROMYCIN Inactive LEVAQUIN 500 MG TAB 1 tablet by mouth daily for 10 days. LEVAQUIN 500 MG TAB 135311 LEVOFLOXACIN Inactive PREDNISONE 20 MG ORAL TABS 3 TABS PO FOR 3 DAYS,THAN 2 TABS FOR 3 DAYS THAN, 1 TAB FOR 3 DAYS THAN, 1/2 TAB FOR 3 DAYS. PREDNISONE 20 MG ORAL TABS 152662 PREDNISONE Inactive PREDNISONE 20 MG ORAL TABS 3 daily for 3 days than, 2 tabs daily for 3 days than, 2 tabs daily for 3 days than, 1 tab daily for 3 days than 1/2 tab daily for 3 days. PREDNISONE 20 MG ORAL TABS 638263 PREDNISONE Inactive AMOXICILLIN 500 MG ORAL TABS Take one by mouth 3 times daily, morning, afternoon and evening.] AMOXICILLIN 500 MG ORAL TABS 814806 AMOXICILLIN Inactive LEVAQUIN 500 MG TAB 1 tablet by mouth daily LEVAQUIN 500 MG TAB 836487 LEVOFLOXACIN Inactive LEVAQUIN 500 MG TAB 1 tablet by mouth daily LEVAQUIN 500 MG TAB 755067 LEVOFLOXACIN Inactive PREDNISONE 20 MG ORAL TABS 3 tabs po for 3 days than,2 tabs po for 3 days,1 tab po for 3 days, 1/2 tab po for 3 days. PREDNISONE 20 MG ORAL TABS 988473 PREDNISONE Inactive ZITHROMAX 250 MG TAB 2 po today, then 1 po q days 2-5 ZITHROMAX 250 MG TAB 8397634 AZITHROMYCIN Inactive PREDNISONE 20 MG TAB 2 tabs daily for 3 days, 1 tab daily for 3 days, 1/2 tab daily for 2 days PREDNISONE 20 MG TAB 096441 PREDNISONE Inactive KEFLEX 500 MG CAP 1 po TID x 7 days KEFLEX 500 MG CAP 516140 CEPHALEXIN Inactive LEVOFLOXACIN 500 MG ORAL TABS take 1 tab po qday LEVOFLOXACIN 500 MG ORAL TABS 748079 LEVOFLOXACIN Inactive PREDNISONE 20 MG TAB 2 tabs daily for 3 days, 1 tab daily for 3 days, 1/2 tab daily for 2 days PREDNISONE 20 MG TAB 290964 PREDNISONE Inactive DOXYCYCLINE HYCLATE 100 MG CAP 1 cap by mouth twice daily DOXYCYCLINE HYCLATE 100 MG CAP 7884239 DOXYCYCLINE HYCLATE Inactive PREDNISONE 20 MG TAB take 3 tabs daily for 3 days, 2 tabs daily for 3 days, 1 tab daily for 3 days, 1/2 tab daily for 3 days PREDNISONE 20 MG TAB 459851 PREDNISONE Inactive PREDNISONE 20 MG TAB take 3 tabs daily for 3 days, 2 tabs daily for 3 days, 1 tab daily for 3 days, 1/2 tab daily for 3 days PREDNISONE 20 MG TAB 844488 PREDNISONE Inactive PREDNISONE 20 MG TAB take 3 tabs daily for 3 days, 2 tabs daily for 3 days, 1 tab daily for 3 days, 1/2 tab daily for 3 days PREDNISONE 20 MG TAB 441236 PREDNISONE Inactive Advance Directives Directive Description Start [...] Peptide - Chemistry sodium, serum 140 mmol/L 774-489 2528/02/09 carbon dioxide, venous blood 39.2 mmol/L 21.0-32.0 [...] 43.52 m[iU]/mL 0.36-3.74 sodium, serum 140 mmol/L 091-470 0707/04/06 carbon dioxide, venous blood 36.3 mmol/L 21.0-32.0 potassium, serum 4.9 mmol/L 3.5-5.2 chloride, serum 100 mmol/L 98-107 blood glucose 62 mg/dL 65-110 urea nitrogen, blood 24 mg/dL 7-18 creatinine, serum 1.09 mg/dL 0.55-1.30 alanine aminotransferase (SGPT), serum 44 U/L 12-78 aspartate aminotransferase (SGOT), serum 25 U/L 15-37 calcium, serum 8.7 mg/dL 8.5-10.1 bilirubin, serum, total 0.50 mg/dL 0.00-1.00 cholesterol, serum 189 mg/dL 344-716 1168/04/06 triglyceride, serum, fasting 117 mg/dL 30-200 HDL [...] 142-424 Encounters Code Encounter Date Provider Facility CPT-23349 Level 4 Est. Patient 17:54:41 ORTHO/PROSTHETIC AIDE Austin Albarado MD [facility] CPT-55686 Level 4 Est. Patient 16:11:14 ORTHO/PROSTHETIC AIDE Austin Albarado MD [facility] CPT-07995 Level 4 Est. Patient 23:08:56 CDT Austin Albarado MD [facility] CPT-99738 Level 4 Est. Patient 13:27:28 CDT Garcia Stroud MD [facility] CPT-26616 Level 4 Est. Patient 10:51:20 CDT Austin Albarado MD [facility] CPT-43247 Level 4 Est. Patient 20:09:43 ORTHO/PROSTHETIC AIDE Austin Albarado MD [facility] CPT-34662 Level 4 Est. Patient 21:00:28 CDT Austin Albarado MD [facility] CPT-12590 Level 4 Est. Patient 10:03:37 CDT Austin Albarado MD [facility] CPT-18212 Level 3 Est. Patient 10:50:28 ORTHO/PROSTHETIC AIDE Austin Albarado MD [facility] CPT-94506 Level 4 Est. Patient 21:31:41 ORTHO/PROSTHETIC AIDE Austin Albarado MD [facility] CPT-74657 Level 3 Est. Patient 16:22:54 ORTHO/PROSTHETIC AIDE Jann Law DO [facility] CPT-78156 Level 3 Est. Patient 11:04:53 ORTHO/PROSTHETIC AIDE Tristan Vaughn MD [facility] CPT-07680 Level 4 Est. Patient 09:50:59 CDT Austin Albarado MD [facility] CPT-10706 Level 4 Est. Patient 09:29:00 CDT Austin Albarado MD [facility] CPT-85816 Level 4 Est. Patient 14:23:07 CDT Austin Albarado MD [facility] CPT-18004 Level 4 Est. Patient 14:27:26 CDT Austin Albarado MD [facility] CPT-99767 Level 4 Est. Patient 12:51:43 ORTHO/PROSTHETIC AIDE Austin Albarado MD [facility] CPT-54804 Level 3 New Patient 14:17:38 ORTHO/PROSTHETIC AIDE Austin Albarado MD [facility] CPT-29747 Level 3 New Patient 11:28:18 ORTHO/PROSTHETIC AIDE Austin Albarado MD [facility] Procedures Code Procedure Name Date Entry Date Standard Description CPT-94076 No Charge Offi Visit 10:19:33 ORTHO/PROSTHETIC AIDE CPT-21303 Chest 2V Frontal and Lat - XRAY USE ONLY 15:01:41 ORTHO/PROSTHETIC AIDE CPT-22128 First Vx - Ix admin for Medicare patients 16:00:49 CDT CPT-48948 Fluzone High-Dose Intramuscular Suspension 16:00:49 CDT CPT-G0009 Administration of Pneumococcal Vaccine 13:25:27 CDT CPT-83998 Prevnar 13 Intramuscular Suspension 13:25:27 CDT 09/26 CPT-G0438 Initial Annual Wellness Exam 11:28:26 CDT CPT-58212 Chest 2V Frontal and Lat 15:00:00 ORTHO/PROSTHETIC AIDE CPT-33446 Breathing Tx 14:49:25 ORTHO/PROSTHETIC AIDE CPT-30088 Fluzone High Dose 15:08:41 ORTHO/PROSTHETIC AIDE CPT-46758 Immunization Single Admin 15:08:41 ORTHO/PROSTHETIC AIDE CPT-92334 Fluzone High Dose 17:31:19 CDT CPT-38084 Administration single or combination vaccine inc oral 17 :31:19 CDT CPT-86335 Venipuncture Draw Fee 11:03:05 CDT CPT-TCMM Transitional Care Mgmt-Moderate 16:32:35 CDT CPT-71471 Chest 2V Frontal and Lat 11:51:09 CDT CPT-G0008 Administration of Influenza Virus Vaccine 15:09:08 CDT CPT-31270 Fluzone High-Dose Intramuscular Suspension 15:09:08 CDT CPT-35853 Administration single or combination vaccine inc oral 17 :07:02 ORTHO/PROSTHETIC AIDE CPT-06443 Influenza High Dose age 65+ 17:07:02 ORTHO/PROSTHETIC AIDE
--- OUTSIDE RECORDS SUMMARY | 2017-02-27 22:32 | XMS REPORT | Clinical Summary ---
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 Tracie Arrington TRACTOR TECHNICIAN Chronic airway obstruction, not elsewhere classified Family history of myocardial infarction V17.3 Active Tracie Arrington TRACTOR TECHNICIAN Family history of ischemic heart disease CAD 414.00 Active Tracie Arrington TRACTOR TECHNICIAN Coronary atherosclerosis of unspecified type of vessel, [place] or graft Peripheral edema 782.3 Active Austin [...] 4-6 hrs prn cough/ SOB ALBUTEROL SULFATE 00959357972 Active Nella José LPN Active IPRATROPIUM-ALBUTEROL 0.5-2.5 (3) MG/3ML SOLN 1 VIAL NEB Q 4-6 HRS PRN 04/18 IPRATROPIUM-ALBUTEROL 96587615594 Active Nella José LPN Active ATIVAN 0.5 MG TAB 1 po QD PRN Anxiety LORAZEPAM 47332516288 Active Nella José LPN Active PREDNISONE 20 MG ORAL TABS 3 tabs po for 3 days than,2 tabs po for 3 days,1 tab po for 3 days, 1/2 tab po for 3 days. PREDNISONE 74284330964 No Longer Active Simona Galloway APRN Active LEVAQUIN 500 MG TAB 1 tablet by mouth daily LEVOFLOXACIN 14687135052 No Longer Active Simona Galloway APRN Active PREDNISONE 20 MG TAB take 3 tabs daily for 3 days, 2 tabs daily for 3 days, 1 tab daily for 3 days, 1/2 tab daily for 3 days PREDNISONE 74626775538 No Longer Active Austin Albarado MD Active LEVAQUIN 500 MG TAB 1 tablet by mouth daily LEVOFLOXACIN 61496654782 No Longer Active Madhavi Fiore Active FUROSEMIDE 20 MG TABS take 1 tab po BID for swelling FUROSEMIDE 86716770328 Active Austin Albarado MD Active AMOXICILLIN 500 MG ORAL TABS Take one by mouth 3 times daily, morning, afternoon and evening.] AMOXICILLIN 63847701430 No Longer Active aGrcia Stroud MD Active PREDNISONE 20 MG ORAL TABS 3 daily for 3 days than, 2 tabs daily for 3 days than, 2 tabs daily for 3 days than, 1 tab daily for 3 days than 1/2 tab daily for 3 days. PREDNISONE 56365349155 No Longer Active Tracie Arrington APRN Active FLUTICASONE PROPIONATE 50 MCG/ACT SUSP 1 to 2 sprays each nostril daily 08/21 FLUTICASONE PROPIONATE 27617222896 Active Simona Galloway APRN Active PREDNISONE 10 MG TAB take 1 tab po qday for severe COPD PREDNISONE 69969229302 Active Austin Albarado MD Active PREDNISONE 20 MG ORAL TABS 3 TABS PO FOR 3 DAYS,THAN 2 TABS FOR 3 DAYS THAN, 1 TAB FOR 3 DAYS THAN, 1/2 TAB FOR 3 DAYS. PREDNISONE 32353390642 No Longer Active Austin Albarado MD Active LEVAQUIN 500 MG TAB 1 tablet by mouth daily for 10 days. LEVOFLOXACIN 06036184470 No Longer Active Austin Albarado MD Active PREDNISONE 20 MG TAB take 3 tabs daily for 3 days, 2 tabs daily for 3 days, 1 tab daily for 3 days, 1/2 tab daily for 3 days PREDNISONE 91789811987 No Longer Active Simona Galloway APRN Active ZITHROMAX 1 GM ORAL PACK DIRECTED AZITHROMYCIN 33963248494 No Longer Active Simona Galloway APRN Active PREDNISONE 20 MG TAB 2 tabs daily for 4 days, 1 tab daily for 4 days, 1/2 tab daily for 4 days PREDNISONE 67212485810 No Longer Active Austin Albarado MD Active LEVAQUIN 500 MG TAB 1 tablet by mouth daily LEVOFLOXACIN 83446094386 No Longer Active Austin Albarado MD Active PREDNISONE 20 MG TAB take 3 tabs daily for 3 days, 2 tabs daily for 3 days, 1 tab daily for 3 days, 1/2 tab daily for 3 days PREDNISONE 29908611763 No Longer Active Austin Albarado MD Active DOXYCYCLINE HYCLATE 100 MG CAP 1 cap by mouth twice daily DOXYCYCLINE HYCLATE 19864039788 No Longer Active Jillina Fraganga BOWEN Active ALBUTEROL SULFATE (2.5 MG/3ML) 0.083% NEBU nebulize 1 vial q 4-6 hours prn shortness of breath ALBUTEROL SULFATE 89833605510 No Longer Active Jillina Frashonnal TRACTOR TECHNICIAN Active TORSEMIDE 20 MG TABS 1 TAB PO BID TORSEMIDE 05834867179 No Longer Active 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 TRACTOR TECHNICIAN Active PREDNISONE 20 MG TAB 2 tabs daily for 3 days, 1 tab daily for 3 days, 1/2 tab daily for 2 days PREDNISONE 56935884256 No Longer Active Austin Albarado MD Active LEVOFLOXACIN 500 MG ORAL TABS take 1 tab po qday LEVOFLOXACIN 67540168997 No Longer Active Austin Albarado MD Active PREDNISONE 20 MG TAB 2 tablets today, then 1 tablet by mouth days 2-5 PREDNISONE 89317225644 No Longer Active Austin Albarado MD Active AZITHROMYCIN 500 MG SOLR 1 po q day AZITHROMYCIN 81860542866 No Longer Active Austin Albarado MD Active KEFLEX 500 MG CAP 1 po TID x 7 days CEPHALEXIN 52906845863 No Longer Active Tristan Vaughn MD Active EQL VISION FORMULA TABS 1 TAB PO DAILY MULTIPLE VITAMINS-MINERALS 57297310478 No Longer Active Tristan Vaughn MD Active CHANTIX STARTING MONTH ELVIS 0.5 MG X 11 & 1 MG X 42 TABS 0.5mg daily for 3 days , then 0.5mg BID for 4 days, then 1mg BID VARENICLINE TARTRATE 19043776804 No Longer Active Tristan Vaughn MD Active LEVOTHYROXINE SODIUM 200 MCG TABS 1 TAB PO DAILY LEVOTHYROXINE SODIUM 74087457196 No Longer Active Tristan Vaughn MD Active LIOTHYRONINE SODIUM 50 MCG TABS take 1 tab po qday for hypothyroidism LIOTHYRONINE SODIUM 56903996811 No Longer Active Austin Albarado MD Active SYNTHROID 0.025 MG TAB 1 tablet by mouth daily LEVOTHYROXINE SODIUM 54755186240 No Longer Active Austin Albarado MD Active ARMOUR THYROID 120 MG TABS take 1 tab po qday for hypothyroidism THYROID 98950766284 Active Austin Albarado MD Active FLONASE 50 MCG/ACT SUSP 1 spray each nostril am and hs FLUTICASONE PROPIONATE Active Simona Galloway APRN Active ZITHROMAX 1 GM PACK DIRECTED AZITHROMYCIN 12692650879 No Longer Active Austin Albarado MD Active PREDNISONE 20 MG TAB 2 tabs daily for 3 days, 1 tab daily for 3 days, 1/2 tab daily for 2 days PREDNISONE 59266473170 No Longer Active Austin Albarado MD Active ZITHROMAX 250 MG TAB 2 po today, then 1 po q days 2-5 AZITHROMYCIN 16389422977 No Longer Active Austin Albarado MD Active NYSTATIN-TRIAMCINOLONE 697275-6.1 UNIT/GM-% OINT Apply to affected area TID NYSTATIN-TRIAMCINOLONE 91750838284 Active Austin Albarado MD Active ADVAIR DISKUS 500-50 MCG/DOSE AEPB ONE INH BID FLUTICASONE- SALMETEROL 17870611926 Active Austin Albarado MD Active ZITHROMAX 1 GM PACK DIRECTED ZITHROMAX 1 GM PACK 239383 AZITHROMYCIN Inactive SYNTHROID 0.025 MG TAB 1 tablet by mouth daily SYNTHROID 0.025 MG TAB 655057 LEVOTHYROXINE SODIUM Inactive LIOTHYRONINE SODIUM 50 MCG TABS take 1 tab po qday for hypothyroidism LIOTHYRONINE SODIUM 50 MCG TABS 768047 LIOTHYRONINE SODIUM Inactive LEVOTHYROXINE SODIUM 200 MCG TABS 1 TAB PO DAILY LEVOTHYROXINE SODIUM 200 MCG TABS 943106 LEVOTHYROXINE SODIUM Inactive CHANTIX STARTING MONTH ELVIS [...] po q day AZITHROMYCIN 500 MG SOLR 33878964561 AZITHROMYCIN Inactive PREDNISONE 20 MG TAB 2 tablets today, then 1 tablet by mouth days 2-5 PREDNISONE 20 MG TAB 082686 PREDNISONE Inactive TORSEMIDE 20 MG TABS 1 TAB PO BID TORSEMIDE 20 MG TABS 555811 TORSEMIDE Inactive ALBUTEROL SULFATE (2.5 MG/3ML) 0.083% NEBU nebulize 1 vial q 4-6 hours prn shortness of breath ALBUTEROL SULFATE (2.5 MG/3ML) 0.083% NEBU 949840 ALBUTEROL SULFATE Inactive LEVAQUIN 500 MG TAB 1 tablet by mouth daily LEVAQUIN 500 MG TAB 970964 LEVOFLOXACIN Inactive PREDNISONE 20 MG TAB 2 tabs daily for 4 days, 1 tab daily for 4 days, 1/2 tab daily for 4 days PREDNISONE 20 MG TAB 134902 PREDNISONE Inactive ZITHROMAX 1 GM ORAL PACK DIRECTED ZITHROMAX 1 GM ORAL PACK 057022 AZITHROMYCIN Inactive LEVAQUIN 500 MG TAB 1 tablet by mouth daily for 10 days. LEVAQUIN 500 MG TAB 147606 LEVOFLOXACIN Inactive PREDNISONE 20 MG ORAL TABS 3 TABS PO FOR 3 DAYS,THAN 2 TABS FOR 3 DAYS THAN, 1 TAB FOR 3 DAYS THAN, 1/2 TAB FOR 3 DAYS. PREDNISONE 20 MG ORAL TABS 464816 PREDNISONE Inactive PREDNISONE 20 MG ORAL TABS 3 daily for 3 days than, 2 tabs daily for 3 days than, 2 tabs daily for 3 days than, 1 tab daily for 3 days than 1/2 tab daily for 3 days. PREDNISONE 20 MG ORAL TABS 328441 PREDNISONE Inactive AMOXICILLIN 500 MG ORAL TABS Take one by mouth 3 times daily, morning, afternoon and evening.] AMOXICILLIN 500 MG ORAL TABS 428803 AMOXICILLIN Inactive LEVAQUIN 500 MG TAB 1 tablet by mouth daily LEVAQUIN 500 MG TAB 363464 LEVOFLOXACIN Inactive LEVAQUIN 500 MG TAB 1 tablet by mouth daily LEVAQUIN 500 MG TAB 372772 LEVOFLOXACIN Inactive PREDNISONE 20 MG ORAL TABS 3 tabs po for 3 days than,2 tabs po for 3 days,1 tab po for 3 days, 1/2 tab po for 3 days. PREDNISONE 20 MG ORAL TABS 023600 PREDNISONE Inactive ZITHROMAX 250 MG TAB 2 po today, then 1 po q days 2-5 ZITHROMAX 250 MG TAB 6940065 AZITHROMYCIN Inactive PREDNISONE 20 MG TAB 2 tabs daily for 3 days, 1 tab daily for 3 days, 1/2 tab daily for 2 days PREDNISONE 20 MG TAB 020657 PREDNISONE Inactive KEFLEX 500 MG CAP 1 po TID x 7 days KEFLEX 500 MG CAP 865750 CEPHALEXIN Inactive LEVOFLOXACIN 500 MG ORAL TABS take 1 tab po qday LEVOFLOXACIN 500 MG ORAL TABS 371370 LEVOFLOXACIN Inactive PREDNISONE 20 MG TAB 2 tabs daily for 3 days, 1 tab daily for 3 days, 1/2 tab daily for 2 days PREDNISONE 20 MG TAB 228807 PREDNISONE Inactive DOXYCYCLINE HYCLATE 100 MG CAP 1 cap by mouth twice daily DOXYCYCLINE HYCLATE 100 MG CAP 2227560 DOXYCYCLINE HYCLATE Inactive PREDNISONE 20 MG TAB take 3 tabs daily for 3 days, 2 tabs daily for 3 days, 1 tab daily for 3 days, 1/2 tab daily for 3 days PREDNISONE 20 MG TAB 673285 PREDNISONE Inactive PREDNISONE 20 MG TAB take 3 tabs daily for 3 days, 2 tabs daily for 3 days, 1 tab daily for 3 days, 1/2 tab daily for 3 days PREDNISONE 20 MG TAB 153617 PREDNISONE Inactive PREDNISONE 20 MG TAB take 3 tabs daily for 3 days, 2 tabs daily for 3 days, 1 tab daily for 3 days, 1/2 tab daily for 3 days PREDNISONE 20 MG TAB 670840 PREDNISONE Inactive Advance Directives Directive Description Start [...] Peptide - Chemistry sodium, serum 140 mmol/L 760-881 7558/02/09 carbon dioxide, venous blood 39.2 mmol/L 21.0-32.0 [...] 43.52 m[iU]/mL 0.36-3.74 sodium, serum 140 mmol/L 820-694 0089/04/06 carbon dioxide, venous blood 36.3 mmol/L 21.0-32.0 potassium, serum 4.9 mmol/L 3.5-5.2 chloride, serum 100 mmol/L 98-107 blood glucose 62 mg/dL 65-110 urea nitrogen, blood 24 mg/dL 7-18 creatinine, serum 1.09 mg/dL 0.55-1.30 alanine aminotransferase (SGPT), serum 44 U/L 12-78 aspartate aminotransferase (SGOT), serum 25 U/L 15-37 calcium, serum 8.7 mg/dL 8.5-10.1 bilirubin, serum, total 0.50 mg/dL 0.00-1.00 cholesterol, serum 189 mg/dL 536-539 2121/04/06 triglyceride, serum, fasting 117 mg/dL 30-200 HDL [...] 142-424 Encounters Code Encounter Date Provider Facility CPT-83512 Level 4 Est. Patient 17:54:41 ORTHOPEDICS TEACHER Austin Albarado MD [facility] CPT-17464 Level 4 Est. Patient 16:11:14 ORTHOPEDICS TEACHER Austin Albarado MD [facility] CPT-14348 Level 4 Est. Patient 23:08:56 CDT Austin Albarado MD [facility] CPT-62693 Level 4 Est. Patient 13:27:28 CDT Garcia Stroud MD [facility]-48231 Level 4 Est. Patient 10:51:20 CDT Austin Albarado MD [facility]-64196 Level 4 Est. Patient 20:09:43 ORTHOPEDICS TEACHER Austin Albarado MD [facility]-51595 Level 4 Est. Patient 21:00:28 CDT Austin Albarado MD [facility]-38244 Level 4 Est. Patient 10:03:37 CDT Austin Albarado MD [facility]-67910 Level 3 Est. Patient 10:50:28 ORTHOPEDICS TEACHER Austin Albarado MD [facility]-18747 Level 4 Est. Patient 21:31:41 ORTHOPEDICS TEACHER Austin Albarado MD [facility]-79502 Level 3 Est. Patient 16:22:54 ORTHOPEDICS TEACHER Jann Law DO [facility] CPT-53802 Level 3 Est. Patient 11:04:53 ORTHOPEDICS TEACHER Tristan Vaughn MD [facility]-56517 Level 4 Est. Patient 09:50:59 CDT Austin Albarado MD [facility]-65728 Level 4 Est. Patient 09:29:00 CDT Austin Albarado MD [facility]-12366 Level 4 Est. Patient 14:23:07 CDT Austin Albarado MD [facility] CPT-33792 Level 4 Est. Patient 14:27:26 CDT Austin Albarado MD [facility]-13714 Level 4 Est. Patient 12:51:43 ORTHOPEDICS TEACHER Austin Albarado MD [facility] CPT-58622 Level 3 New Patient 14:17:38 ORTHOPEDICS TEACHER Austin Albarado MD [facility] CPT-73919 Level 3 New Patient 11:28:18 ORTHOPEDICS TEACHER Austin Albarado MD [facility] Procedures Code Procedure Name Date Entry Date Standard Description CPT-TCMM Transitional Care Mgmt-Moderate 14:53:36 ORTHOPEDICS TEACHER CPT-32793 No Charge Offi Visit 10:19:33 ORTHOPEDICS TEACHER CPT-47132 Chest 2V Frontal and Lat - XRAY USE ONLY 15:01:41 ORTHOPEDICS TEACHER CPT-90956 First Vx - Ix admin for Medicare patients 16:00:49 CDT CPT-08820 Fluzone High-Dose Intramuscular Suspension 16:00:49 CDT CPT-G0009 Administration of Pneumococcal Vaccine 13:25:27 CDT CPT-82979 Prevnar 13 Intramuscular Suspension 13:25:27 CDT 09/26 CPT-G0438 Initial Annual Wellness Exam 11:28:26 CDT CPT-85382 Chest 2V Frontal and Lat 15:00:00 ORTHOPEDICS TEACHER CPT-74507 Breathing Tx 14:49:25 ORTHOPEDICS TEACHER CPT-54360 Fluzone High Dose 15:08:41 ORTHOPEDICS TEACHER CPT-19409 Immunization Single Admin 15:08:41 ORTHOPEDICS TEACHER CPT-07659 Fluzone High Dose 17:31:19 CDT CPT-43703 Administration single or combination vaccine inc oral 17 :31:19 CDT CPT-54961 Venipuncture Draw Fee 11:03:05 CDT CPT-TCMM Transitional Care Mgmt-Moderate 16:32:35 CDT CPT-68827 Chest 2V Frontal and Lat 11:51:09 CDT CPT-G0008 Administration of Influenza Virus Vaccine 15:09:08 CDT CPT-15894 Fluzone High-Dose Intramuscular Suspension 15:09:08 CDT CPT-45278 Administration single or combination vaccine inc oral 17 :07:02 ORTHOPEDICS TEACHER CPT-93475 Influenza High Dose age 65+ 17:07:02 ORTHOPEDICS TEACHER
--- OUTSIDE RECORDS SUMMARY | 2017-02-27 22:32 | XMS REPORT | Clinical Summary ---
Author Author Admin, LEE Organization [facility] Address Unknown Phone Unavailable Allergies, Adverse [...] unspecified type of vessel, rosebud or graft U R I ICD-465.9 Inactive uAstin Albarado MD 06/13 Bronchitis-Acute ICD-466.0 Inactive Austin Albarado MD Medication List Medication Instructions Start Date Stop Date Generic Name NDC Status Provider Patient Instruction FUROSEMIDE 20 MG TABS 2 today and tomorrow and then 1 daily as needed for swelling FUROSEMIDE 67430870633 Active Garcia Stroud MD Active AMOXICILLIN 500 MG ORAL TABS Take one by mouth 3 times daily, morning, afternoon and evening.] AMOXICILLIN 34653261995 No Longer Active Garcia Stroud MD Active PREDNISONE 20 MG ORAL TABS 3 daily for 3 days than, 2 tabs daily for 3 days than, 2 tabs daily for 3 days than, 1 tab daily for 3 days than 1/2 tab daily for 3 days. PREDNISONE 03152106039 No Longer Active Tracie Arrington APRN Active FLUTICASONE PROPIONATE 50 MCG/ACT SUSP 1 to 2 sprays each nostril daily 08/21 FLUTICASONE PROPIONATE 39026933501 Active Simona Galloway APRN Active PREDNISONE 10 MG TAB take 1 tab po qday for severe COPD PREDNISONE 76073288959 Active Austin Albarado MD Active PREDNISONE 20 MG ORAL TABS 3 TABS PO FOR 3 DAYS,THAN 2 TABS FOR 3 DAYS THAN, 1 TAB FOR 3 DAYS THAN, 1/2 TAB FOR 3 DAYS. PREDNISONE 54972504003 No Longer Active Austin Albarado MD Active LEVAQUIN 500 MG TAB 1 tablet by mouth daily for 10 days. LEVOFLOXACIN 96148250343 No Longer Active Austin Albarado MD Active PREDNISONE 20 MG TAB take 3 tabs daily for 3 days, 2 tabs daily for 3 days, 1 tab daily for 3 days, 1/2 tab daily for 3 days PREDNISONE 35144935429 No Longer Active Simona Galloway APRN Active ZITHROMAX 1 GM ORAL PACK DIRECTED AZITHROMYCIN 14665246308 No Longer Active Simona Galloway APRN Active PREDNISONE 20 MG TAB 2 tabs daily for 4 days, 1 tab daily for 4 days, 1/2 tab daily for 4 days PREDNISONE 98578596074 No Longer Active Austin Albarado MD Active LEVAQUIN 500 MG TAB 1 tablet by mouth daily LEVOFLOXACIN 75305767432 No Longer Active Austin Albarado MD Active PREDNISONE 20 MG TAB take 3 tabs daily for 3 days, 2 tabs daily for 3 days, 1 tab daily for 3 days, 1/2 tab daily for 3 days PREDNISONE 55929343863 No Longer Active Austin Albarado MD Active DOXYCYCLINE HYCLATE 100 MG CAP 1 cap by mouth twice daily DOXYCYCLINE HYCLATE 91053615756 No Longer Active Jikatyaina Ly BOWEN Active ALBUTEROL SULFATE (2.5 MG/3ML) 0.083% NEBU nebulize 1 vial q 4-6 hours prn shortness of breath ALBUTEROL SULFATE 42690627688 No Longer Active 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 BIOMEDICAL TECHNICIAN Active TORSEMIDE 20 MG TABS 1 TAB PO BID TORSEMIDE 63197775428 No Longer Active Jillina Frashonnal BIOMEDICAL TECHNICIAN Active PREDNISONE 20 MG TAB 2 tabs daily for 3 days, 1 tab daily for 3 days, 1/2 tab daily for 2 days PREDNISONE 53624962408 No Longer Active Austin Albarado MD Active LEVOFLOXACIN 500 MG ORAL TABS take 1 tab po qday LEVOFLOXACIN 38363153314 No Longer Active Austin Albarado MD Active PREDNISONE 20 MG TAB 2 tablets today, then 1 tablet by mouth days 2-5 PREDNISONE 19069888951 No Longer Active Austin Albarado MD Active AZITHROMYCIN 500 MG SOLR 1 po q day AZITHROMYCIN 75514666115 No Longer Active Austin Albarado MD Active KEFLEX 500 MG CAP 1 po TID x 7 days CEPHALEXIN 59056322161 No Longer Active Tristan Vaughn MD Active EQL VISION FORMULA TABS 1 TAB PO DAILY MULTIPLE VITAMINS-MINERALS 95415545801 No Longer Active Tristan Vaughn MD Active CHANTIX STARTING MONTH ELVIS 0.5 MG X 11 & 1 MG X 42 TABS 0.5mg daily for 3 days , then 0.5mg BID for 4 days, then 1mg BID VARENICLINE TARTRATE 46599988427 No Longer Active Tristan Vaughn MD Active LEVOTHYROXINE SODIUM 200 MCG TABS 1 TAB PO DAILY LEVOTHYROXINE SODIUM 59622240709 No Longer Active Tristan Vaughn MD Active LIOTHYRONINE SODIUM 50 MCG TABS take 1 tab po qday for hypothyroidism LIOTHYRONINE SODIUM 37243601913 No Longer Active Austin Albarado MD Active SYNTHROID 0.025 MG TAB 1 tablet by mouth daily LEVOTHYROXINE SODIUM 00183019932 No Longer Active Austin Albarado MD Active ARMOUR THYROID 120 MG TABS take 1 tab po qday for hypothyroidism THYROID 21531049392 Active Austin Albarado MD Active FLONASE 50 MCG/ACT SUSP 1 spray each nostril am and hs FLUTICASONE PROPIONATE Active Simona Nilesh BIOMEDICAL TECHNICIAN Active ZITHROMAX 1 GM PACK DIRECTED AZITHROMYCIN 40979060716 No Longer Active Austin Albarado MD Active PREDNISONE 20 MG TAB 2 tabs daily for 3 days, 1 tab daily for 3 days, 1/2 tab daily for 2 days PREDNISONE 65526849737 No Longer Active Austin Albarado MD Active ZITHROMAX 250 MG TAB 2 po today, then 1 po q days 2-5 AZITHROMYCIN 56032600133 No Longer Active Austin Albarado MD Active NYSTATIN-TRIAMCINOLONE 284606-0.1 UNIT/GM-% OINT Apply to affected area TID NYSTATIN-TRIAMCINOLONE 90195581618 Active Austin Albarado MD Active IPRATROPIUM-ALBUTEROL 0.5-2.5 (3) MG/3ML SOLN 1 VIAL NEB Q 6 HRS PRN IPRATROPIUM-ALBUTEROL 69467477216 Active Austin Albarado MD Active PROAIR HFA 108 (90 BASE) MCG/ACT AERS take 1-2 puffs q4hrs prn cough/ SOB ALBUTEROL SULFATE 53032098498 Active Austin Albarado MD Active ADVAIR DISKUS 500-50 MCG/DOSE AEPB ONE INH BID FLUTICASONE- SALMETEROL 38241516663 Active Austin Albarado MD Active ZITHROMAX 1 GM PACK DIRECTED ZITHROMAX 1 GM PACK 862510 AZITHROMYCIN Inactive SYNTHROID 0.025 MG TAB 1 tablet by mouth daily SYNTHROID 0.025 MG TAB 443011 LEVOTHYROXINE SODIUM Inactive LIOTHYRONINE SODIUM 50 MCG TABS take 1 tab po qday for hypothyroidism LIOTHYRONINE SODIUM 50 MCG TABS 646172 LIOTHYRONINE SODIUM Inactive LEVOTHYROXINE SODIUM 200 MCG TABS 1 TAB PO DAILY LEVOTHYROXINE SODIUM 200 MCG TABS 236867 LEVOTHYROXINE SODIUM Inactive CHANTIX STARTING MONTH ELVIS [...] po q day AZITHROMYCIN 500 MG SOLR 09475958045 AZITHROMYCIN Inactive PREDNISONE 20 MG TAB 2 tablets today, then 1 tablet by mouth days 2-5 PREDNISONE 20 MG TAB 600530 PREDNISONE Inactive TORSEMIDE 20 MG TABS 1 TAB PO BID TORSEMIDE 20 MG TABS 709911 TORSEMIDE Inactive ALBUTEROL SULFATE (2.5 MG/3ML) 0.083% NEBU nebulize 1 vial q 4-6 hours prn shortness of breath ALBUTEROL SULFATE (2.5 MG/3ML) 0.083% NEBU 733777 ALBUTEROL SULFATE Inactive LEVAQUIN 500 MG TAB 1 tablet by mouth daily LEVAQUIN 500 MG TAB 712024 LEVOFLOXACIN Inactive PREDNISONE 20 MG TAB 2 tabs daily for 4 days, 1 tab daily for 4 days, 1/2 tab daily for 4 days PREDNISONE 20 MG TAB 470059 PREDNISONE Inactive ZITHROMAX 1 GM ORAL PACK DIRECTED ZITHROMAX 1 GM ORAL PACK 039216 AZITHROMYCIN Inactive LEVAQUIN 500 MG TAB 1 tablet by mouth daily for 10 days. LEVAQUIN 500 MG TAB 979101 LEVOFLOXACIN Inactive PREDNISONE 20 MG ORAL TABS 3 TABS PO FOR 3 DAYS,THAN 2 TABS FOR 3 DAYS THAN, 1 TAB FOR 3 DAYS THAN, 1/2 TAB FOR 3 DAYS. PREDNISONE 20 MG ORAL TABS 654428 PREDNISONE Inactive PREDNISONE 20 MG ORAL TABS 3 daily for 3 days than, 2 tabs daily for 3 days than, 2 tabs daily for 3 days than, 1 tab daily for 3 days than 1/2 tab daily for 3 days. PREDNISONE 20 MG ORAL TABS 660186 PREDNISONE Inactive AMOXICILLIN 500 MG ORAL TABS Take one by mouth 3 times daily, morning, afternoon and evening.] AMOXICILLIN 500 MG ORAL TABS 222855 AMOXICILLIN Inactive ZITHROMAX 250 MG TAB 2 po today, then 1 po q days 2-5 ZITHROMAX 250 MG TAB 8964934 AZITHROMYCIN Inactive PREDNISONE 20 MG TAB 2 tabs daily for 3 days, 1 tab daily for 3 days, 1/2 tab daily for 2 days PREDNISONE 20 MG TAB 434661 PREDNISONE Inactive KEFLEX 500 MG CAP 1 po TID x 7 days KEFLEX 500 MG CAP 102848 CEPHALEXIN Inactive LEVOFLOXACIN 500 MG ORAL TABS take 1 tab po qday LEVOFLOXACIN 500 MG ORAL TABS 503854 LEVOFLOXACIN Inactive PREDNISONE 20 MG TAB 2 tabs daily for 3 days, 1 tab daily for 3 days, 1/2 tab daily for 2 days PREDNISONE 20 MG TAB 140450 PREDNISONE Inactive DOXYCYCLINE HYCLATE 100 MG CAP 1 cap by mouth twice daily DOXYCYCLINE HYCLATE 100 MG CAP 2775204 DOXYCYCLINE HYCLATE Inactive PREDNISONE 20 MG TAB take 3 tabs daily for 3 days, 2 tabs daily for 3 days, 1 tab daily for 3 days, 1/2 tab daily for 3 days PREDNISONE 20 MG TAB 785720 PREDNISONE Inactive PREDNISONE 20 MG TAB take 3 tabs daily for 3 days, 2 tabs daily for 3 days, 1 tab daily for 3 days, 1/2 tab daily for 3 days PREDNISONE 20 MG TAB 058944 PREDNISONE Inactive Advance Directives Directive Description Start [...] ... - Chemistry cholesterol, serum 136 mg/dL 870-359 3155/10/06 triglyceride, serum, fasting 30 mg/dL 30-200 HDL cholesterol, serum 57 mg/dL 32-96 LDL cholesterol, serum 73 mg/dL 0-130 prostate specific antigen 1.45 ng/mL 0.00-4.00 thyroxine, serum, free 0.80 ng/dL 0.76-1.46 TSH 14.03 m[iU]/mL 0.36-3.74 Lab Report: Thyroid Stimulating Hormone (L), Comp. Metabolic Panel, CBC, ... - Chemistry TSH 43.52 m[iU]/mL 0.36-3.74 sodium, serum 140 mmol/L 449-073 1479/04/06 carbon dioxide, venous blood 36.3 mmol/L 21.0-32.0 potassium, serum 4.9 mmol/L 3.5-5.2 chloride, serum 100 mmol/L 98-107 blood glucose 62 mg/dL 65-110 urea nitrogen, blood 24 mg/dL 7-18 creatinine, serum 1.09 mg/dL 0.55-1.30 alanine aminotransferase (SGPT), serum 44 U/L 12-78 aspartate aminotransferase (SGOT), serum 25 U/L 15-37 calcium, serum 8.7 mg/dL 8.5-10.1 bilirubin, serum, total 0.50 mg/dL 0.00-1.00 cholesterol, serum 189 mg/dL 533-140 0802/04/06 triglyceride, serum, fasting 117 mg/dL 30-200 HDL [...] 142-424 Encounters Code Encounter Date Provider Facility CPT-49480 Level 4 Est. Patient 13:27:28 CDT Garcia Stroud MD [facility] CPT-18154 Level 4 Est. Patient 10:51:20 CDT Austin Albarado MD [facility] CPT-37943 Level 4 Est. Patient 20:09:43 DRAFTER CONSTRUCTION Austin Albarado MD [facility] CPT-51778 Level 4 Est. Patient 21:00:28 CDT Austin Albarado MD [facility] CPT-36650 Level 4 Est. Patient 10:03:37 CDT Austin Albarado MD [facility] CPT-85630 Level 3 Est. Patient 10:50:28 DRAFTER CONSTRUCTION Austin Albarado MD [facility] CPT-07745 Level 4 Est. Patient 21:31:41 DRAFTER CONSTRUCTION Austin Albarado MD [facility] CPT-34156 Level 3 Est. Patient 16:22:54 DRAFTER CONSTRUCTION Jann Law DO [facility] CPT-33751 Level 3 Est. Patient 11:04:53 DRAFTER CONSTRUCTION Tristan Vaughn MD [facility] CPT-71251 Level 4 Est. Patient 09:50:59 CDT Austin Albarado MD [facility] CPT-58354 Level 4 Est. Patient 09:29:00 CDT Austin Albarado MD [facility] CPT-62285 Level 4 Est. Patient 14:23:07 CDT Austin Albarado MD [facility] CPT-66182 Level 4 Est. Patient 14:27:26 CDT Austin Albarado MD [facility] CPT-59093 Level 4 Est. Patient 12:51:43 DRAFTER CONSTRUCTION Austin Albarado MD [facility] CPT-80900 Level 3 New Patient 14:17:38 DRAFTER CONSTRUCTION Austin Albarado MD [facility] CPT-79811 Level 3 New Patient 11:28:18 DRAFTER CONSTRUCTION Austin Albarado MD [facility] Procedures Code Procedure Name Date Entry Date Standard Description CPT-G0009 Administration of Pneumococcal Vaccine 13:25:27 CDT CPT-85017 Prevnar 13 Intramuscular Suspension 13:25:27 CDT 09/26 CPT-G0438 Initial Annual Wellness Exam 11:28:26 CDT CPT-88371 Chest 2V Frontal and Lat 15:00:00 DRAFTER CONSTRUCTION CPT-65685 Breathing Tx 14:49:25 DRAFTER CONSTRUCTION CPT-84871 Fluzone High Dose 15:08:41 DRAFTER CONSTRUCTION CPT-50035 Immunization Single Admin 15:08:41 DRAFTER CONSTRUCTION CPT-80665 Fluzone High Dose 17:31:19 CDT CPT-08111 Administration single or combination vaccine inc oral 17 :31:19 CDT CPT-48715 Venipuncture Draw Fee 11:03:05 CDT CPT-TCMM Transitional Care Mgmt-Moderate 16:32:35 CDT CPT-34931 Chest 2V Frontal and Lat 11:51:09 CDT CPT-G0008 Administration of Influenza Virus Vaccine 15:09:08 CDT CPT-59471 Fluzone High-Dose Intramuscular Suspension 15:09:08 CDT CPT-42308 Administration single or combination vaccine inc oral 17 :07:02 DRAFTER CONSTRUCTION CPT-27651 Influenza High Dose age 65+ 17:07:02 DRAFTER CONSTRUCTION
--- OUTSIDE RECORDS SUMMARY | 2017-02-27 22:32 | XMS REPORT ---
Author Author [facility] Medical Staff Organization [facility] Address [address] [place] [place], [place] [id number] Phone [phone] Care Team Providers Care Catalytic Converter Operator Helper Name Role Phone YANDY ALBARADO MD PP [phone] Summary purpose TRANSITION OF CARE AUTO GENERATION [...] tests and/or laboratory data RESULTS Radiology Results [id number] MYOCARDIAL SPECT MULT PACs Image DATE OF EXAM: Mar 02 2015 [id number] SPECT MULTIPLE : RADIOLOGY REPORT DATE OF [...] motion and thickening present. Feliz Camacho MD SDP/pr03/02/2015 15:25:00 / 03/02/2015 15:29:34 cc:Dr. Yandy Albarado This document has been electronically Signed by: On: History of procedures No procedures recorded for this patient visit. Functional status Functional Status Finding Observation Time IV Site Location Left hand :20 IV Type peripheral :20 IV Site Information discontinued : IV Site Start Attmpt 1 times :20 IV Site Akira 20 :20 IV Site Appearance WNL :16 IV Site Color clear :16 IV Site Patent yes :16 Dressing Type other (specify) Comment: Jazmin with Coban. :16 Nursing Note Second set of scans completed. Verbal and written discharge instructions given. Patient voices understanding. Patient also given a to go bag with juice and jan crackers. Chest pain remained at "0" throughout entire procedure. Patient escorted from building via wheelchair in good condition. :31 Vital signs Type Value Date Height 58inches :28 Weight 255LB :28 Social history No Social History or smoking status observations were recorded for this visit. ( Unknown if ever smoked.) Treatment Plan No treatment plan text is available for this visit. Hospital discharge instructions Discharge Date/Time 03/02/2015 0931 Accompanied By daugter Dismissal Condition good Disposition on DC home Valuables yes Valuable Type other (specify) Comment: portable oxygen
--- OUTSIDE RECORDS SUMMARY | 2017-02-27 22:33 | XMS REPORT | Clinical Summary ---
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 Chronic airway obstruction, not elsewhere classified Family history of myocardial infarction V17.3 Active Tracie Arrington STACKER ATTENDANT Family history of ischemic heart disease CAD 414.00 Active Tracie Arrington APRN Coronary atherosclerosis of unspecified type of vessel, [place] or graft Peripheral edema 782.3 Active Austin [...] 1 tablet by mouth daily CITALOPRAM HYDROBROMIDE 03651636081 Active Nella José LPN Active KEFLEX 500 MG CAP 1 po BID x 7 days CEPHALEXIN 75928710281 No Longer Active Mica Naren Active KEFLEX 500 MG CAP 1 po BID x 7 days CEPHALEXIN 77490071820 No Longer Active Simona Galloway APRN Active ACYCLOVIR 400 MG TABS 1 pill three times daily ACYCLOVIR 85106878798 No Longer Active Austin Albarado MD Active ACYCLOVIR 400 MG TABS 1 pill three times daily ACYCLOVIR 81391864874 No Longer Active Austin Albarado MD Active ALBUTEROL SULFATE 0.083 % NEBU SOLN one vial per nebulizer every 4 hours as needed Dx. J44.1 ALBUTEROL SULFATE 07378465269 Active Austin Albarado MD Active IPRATROPIUM BROMIDE 0.02 % INH SOLN 1 q 6 hr PRN Dx: J44.1 IPRATROPIUM BROMIDE 06418325726 Active Nella José LPN Active PROAIR HFA 108 (90 BASE) MCG/ACT AERS take 1-2 puffs q 4-6 hrs prn cough/ SOB ALBUTEROL SULFATE 89210213410 Active Nella José LPN Active IPRATROPIUM-ALBUTEROL 0.5-2.5 (3) MG/3ML SOLN 1 VIAL NEB Q 4-6 HRS PRN 04/18 IPRATROPIUM-ALBUTEROL 12281455978 No Longer Active Austin Albarado MD Active ATIVAN 0.5 MG TAB 1 po QD PRN Anxiety LORAZEPAM 01111998766 Active Austin Albarado MD Active PREDNISONE 20 MG ORAL TABS 3 tabs po for 3 days than,2 tabs po for 3 days,1 tab po for 3 days, 1/2 tab po for 3 days. PREDNISONE 15743367140 No Longer Active Simona Galloway APRN Active LEVAQUIN 500 MG TAB 1 tablet by mouth daily LEVOFLOXACIN 17513681423 No Longer Active Simona Gallowya APRN Active PREDNISONE 20 MG TAB take 3 tabs daily for 3 days, 2 tabs daily for 3 days, 1 tab daily for 3 days, 1/2 tab daily for 3 days PREDNISONE 96163446278 No Longer Active Austin Albarado MD Active LEVAQUIN 500 MG TAB 1 tablet by mouth daily LEVOFLOXACIN 86354589336 No Longer Active Madhaviavis Rogersida Active FUROSEMIDE 20 MG TABS take 1 tab po BID for swelling FUROSEMIDE 75854728248 Active Austin Albarado MD Active AMOXICILLIN 500 MG ORAL TABS Take one by mouth 3 times daily, morning, afternoon and evening.] AMOXICILLIN 21885393712 No Longer Active Garcia Stroud MD Active PREDNISONE 20 MG ORAL TABS 3 daily for 3 days than, 2 tabs daily for 3 days than, 2 tabs daily for 3 days than, 1 tab daily for 3 days than 1/2 tab daily for 3 days. PREDNISONE 81754709231 No Longer Active Tracie Arrington APRN Active FLUTICASONE PROPIONATE 50 MCG/ACT SUSP 1 to 2 sprays each nostril daily 08/21 FLUTICASONE PROPIONATE 69846225225 Active Austin Albarado MD Active PREDNISONE 10 MG TAB take 1 tab po qday for severe COPD PREDNISONE 08613754396 Active Austin Albarado MD Active PREDNISONE 20 MG ORAL TABS 3 TABS PO FOR 3 DAYS,THAN 2 TABS FOR 3 DAYS THAN, 1 TAB FOR 3 DAYS THAN, 1/2 TAB FOR 3 DAYS. PREDNISONE 84073570372 No Longer Active Austin Albarado MD Active LEVAQUIN 500 MG TAB 1 tablet by mouth daily for 10 days. LEVOFLOXACIN 65996296587 No Longer Active Austin Albarado MD Active PREDNISONE 20 MG TAB take 3 tabs daily for 3 days, 2 tabs daily for 3 days, 1 tab daily for 3 days, 1/2 tab daily for 3 days PREDNISONE 51906387014 No Longer Active Simona Galloway APRN Active ZITHROMAX 1 GM ORAL PACK DIRECTED AZITHROMYCIN 99708389249 No Longer Active Simona Galloway APRN Active PREDNISONE 20 MG TAB 2 tabs daily for 4 days, 1 tab daily for 4 days, 1/2 tab daily for 4 days PREDNISONE 36595982412 No Longer Active Austin Albarado MD Active LEVAQUIN 500 MG TAB 1 tablet by mouth daily LEVOFLOXACIN 54300453274 No Longer Active Austin Albarado MD Active PREDNISONE 20 MG TAB take 3 tabs daily for 3 days, 2 tabs daily for 3 days, 1 tab daily for 3 days, 1/2 tab daily for 3 days PREDNISONE 02479693940 No Longer Active Austin Albarado MD Active DOXYCYCLINE HYCLATE 100 MG CAP 1 cap by mouth twice daily DOXYCYCLINE HYCLATE 76975093225 No Longer Active Esperanza Modi APRN Active ALBUTEROL SULFATE (2.5 MG/3ML) 0.083% NEBU nebulize 1 vial q 4-6 hours prn shortness of breath ALBUTEROL SULFATE 90530534975 No Longer Active Esperanza Modi APRN Active TORSEMIDE 20 MG TABS 1 TAB PO BID TORSEMIDE 87152590834 No Longer Active Joshllaftab Modi APRN Active PREDNISONE 20 MG TAB 2 tabs daily for 3 days, 1 tab daily for 3 days, 1/2 tab daily for 2 days PREDNISONE 49472507986 No Longer Active Austin Albarado MD Active LEVOFLOXACIN 500 MG ORAL TABS take 1 tab po qday LEVOFLOXACIN 56997803001 No Longer Active Austin Albarado MD Active PREDNISONE 20 MG TAB 2 tablets today, then 1 tablet by mouth days 2-5 PREDNISONE 52033386933 No Longer Active Austin Albarado MD Active AZITHROMYCIN 500 MG SOLR 1 po q day AZITHROMYCIN 92511891303 No Longer Active Austin Albarado MD Active KEFLEX 500 MG CAP 1 po TID x 7 days CEPHALEXIN 47381280160 No Longer Active Tristan Vaughn MD Active EQL VISION FORMULA TABS 1 TAB PO DAILY MULTIPLE VITAMINS-MINERALS 40624249136 No Longer Active Tristan Vaughn MD Active CHANTIX STARTING MONTH ELVIS 0.5 MG X 11 & 1 MG X 42 TABS 0.5mg daily for 3 days , then 0.5mg BID for 4 days, then 1mg BID VARENICLINE TARTRATE 68438705246 No Longer Active Tristan Vaughn MD Active LEVOTHYROXINE SODIUM 200 MCG TABS 1 TAB PO DAILY LEVOTHYROXINE SODIUM 37594256411 No Longer Active Tristan Vaughn MD Active LIOTHYRONINE SODIUM 50 MCG TABS take 1 tab po qday for hypothyroidism LIOTHYRONINE SODIUM 76319785725 No Longer Active Austin Albarado MD Active SYNTHROID 0.025 MG TAB 1 tablet by mouth daily LEVOTHYROXINE SODIUM 78285433628 No Longer Active Austin Albarado MD Active ARMOUR THYROID 120 MG TABS take 1 tab po qday for hypothyroidism THYROID 24780353330 Active Austin Albarado MD Active FLONASE 50 MCG/ACT SUSP 1 spray each nostril am and hs FLUTICASONE PROPIONATE Active Simona Galloway APRN Active ZITHROMAX 1 GM PACK DIRECTED AZITHROMYCIN 79727295265 No Longer Active Austin Albarado MD Active PREDNISONE 20 MG TAB 2 tabs daily for 3 days, 1 tab daily for 3 days, 1/2 tab daily for 2 days PREDNISONE 50734046006 No Longer Active Austin Albarado MD Active ZITHROMAX 250 MG TAB 2 po today, then 1 po q days 2-5 AZITHROMYCIN 06855345762 No Longer Active Austin Albarado MD Active NYSTATIN-TRIAMCINOLONE 050459-1.1 UNIT/GM-% OINT Apply to affected area TID NYSTATIN-TRIAMCINOLONE 64039766813 Active Austin Albarado MD Active ADVAIR DISKUS 500-50 MCG/DOSE AEPB ONE INH BID FLUTICASONE- SALMETEROL 19509027563 Active Austin Albarado MD Active ZITHROMAX 1 GM PACK DIRECTED ZITHROMAX 1 GM PACK 902342 AZITHROMYCIN Inactive SYNTHROID 0.025 MG TAB 1 tablet by mouth daily SYNTHROID 0.025 MG TAB 694097 LEVOTHYROXINE SODIUM Inactive LIOTHYRONINE SODIUM 50 MCG TABS take 1 tab po qday for hypothyroidism LIOTHYRONINE SODIUM 50 MCG TABS 189219 LIOTHYRONINE SODIUM Inactive LEVOTHYROXINE SODIUM 200 MCG TABS 1 TAB PO DAILY LEVOTHYROXINE SODIUM 200 MCG TABS 616388 LEVOTHYROXINE SODIUM Inactive CHANTIX STARTING MONTH ELVIS [...] po q day AZITHROMYCIN 500 MG SOLR 10272030750 AZITHROMYCIN Inactive PREDNISONE 20 MG TAB 2 tablets today, then 1 tablet by mouth days 2-5 PREDNISONE 20 MG TAB 056835 PREDNISONE Inactive TORSEMIDE 20 MG TABS 1 TAB PO BID TORSEMIDE 20 MG TABS 879186 TORSEMIDE Inactive ALBUTEROL SULFATE (2.5 MG/3ML) 0.083% NEBU nebulize 1 vial q 4-6 hours prn shortness of breath ALBUTEROL SULFATE (2.5 MG/3ML) 0.083% [facility] 208293 ALBUTEROL SULFATE Inactive LEVAQUIN 500 MG TAB 1 tablet by mouth daily LEVAQUIN 500 MG TAB 141050 LEVOFLOXACIN Inactive PREDNISONE 20 MG TAB 2 tabs daily for 4 days, 1 tab daily for 4 days, 1/2 tab daily for 4 days PREDNISONE 20 MG TAB 797449 PREDNISONE Inactive ZITHROMAX 1 GM ORAL PACK DIRECTED ZITHROMAX 1 GM ORAL PACK 622061 AZITHROMYCIN Inactive LEVAQUIN 500 MG TAB 1 tablet by mouth daily for 10 days. LEVAQUIN 500 MG TAB 244690 LEVOFLOXACIN Inactive PREDNISONE 20 MG ORAL TABS 3 TABS PO FOR 3 DAYS,THAN 2 TABS FOR 3 DAYS THAN, 1 TAB FOR 3 DAYS THAN, 1/2 TAB FOR 3 DAYS. PREDNISONE 20 MG ORAL TABS 133356 PREDNISONE Inactive PREDNISONE 20 MG ORAL TABS 3 daily for 3 days than, 2 tabs daily for 3 days than, 2 tabs daily for 3 days than, 1 tab daily for 3 days than 1/2 tab daily for 3 days. PREDNISONE 20 MG ORAL TABS 998849 PREDNISONE Inactive AMOXICILLIN 500 MG ORAL TABS Take one by mouth 3 times daily, morning, afternoon and evening.] AMOXICILLIN 500 MG ORAL TABS 299176 AMOXICILLIN Inactive LEVAQUIN 500 MG TAB 1 tablet by mouth daily LEVAQUIN 500 MG TAB 710068 LEVOFLOXACIN Inactive LEVAQUIN 500 MG TAB 1 tablet by mouth daily LEVAQUIN 500 MG TAB 007666 LEVOFLOXACIN Inactive PREDNISONE 20 MG ORAL TABS 3 tabs po for 3 days than,2 tabs po for 3 days,1 tab po for 3 days, 1/2 tab po for 3 days. PREDNISONE 20 MG ORAL TABS 215396 PREDNISONE Inactive ZITHROMAX 250 MG TAB 2 po today, then 1 po q days 2-5 ZITHROMAX 250 MG TAB 1904368 AZITHROMYCIN Inactive PREDNISONE 20 MG TAB 2 tabs daily for 3 days, 1 tab daily for 3 days, 1/2 tab daily for 2 days PREDNISONE 20 MG TAB 037054 PREDNISONE Inactive KEFLEX 500 MG CAP 1 po TID x 7 days KEFLEX 500 MG CAP 660753 CEPHALEXIN Inactive LEVOFLOXACIN 500 MG ORAL TABS take 1 tab po qday LEVOFLOXACIN 500 MG ORAL TABS 417280 LEVOFLOXACIN Inactive PREDNISONE 20 MG TAB 2 tabs daily for 3 days, 1 tab daily for 3 days, 1/2 tab daily for 2 days PREDNISONE 20 MG TAB 684409 PREDNISONE Inactive DOXYCYCLINE HYCLATE 100 MG CAP 1 cap by mouth twice daily DOXYCYCLINE HYCLATE 100 MG CAP 2629706 DOXYCYCLINE HYCLATE Inactive PREDNISONE 20 MG TAB take 3 tabs daily for 3 days, 2 tabs daily for 3 days, 1 tab daily for 3 days, 1/2 tab daily for 3 days PREDNISONE 20 MG TAB 638782 PREDNISONE Inactive PREDNISONE 20 MG TAB take 3 tabs daily for 3 days, 2 tabs daily for 3 days, 1 tab daily for 3 days, 1/2 tab daily for 3 days PREDNISONE 20 MG TAB 793016 PREDNISONE Inactive PREDNISONE 20 MG TAB take 3 tabs daily for 3 days, 2 tabs daily for 3 days, 1 tab daily for 3 days, 1/2 tab daily for 3 days PREDNISONE 20 MG TAB 661027 PREDNISONE Inactive ACYCLOVIR 400 MG TABS 1 pill three times daily ACYCLOVIR 400 MG TABS 259809 ACYCLOVIR Inactive ACYCLOVIR 400 MG TABS 1 pill three times daily ACYCLOVIR 400 MG TABS 301327 ACYCLOVIR Inactive KEFLEX 500 MG CAP 1 po BID x 7 days KEFLEX 500 MG CAP 388634 CEPHALEXIN Inactive KEFLEX 500 MG CAP 1 po BID x 7 days KEFLEX 500 MG CAP 701687 CEPHALEXIN Inactive Advance Directives Directive Description Start [...] 39.2 mmol/L 21.0-32.0 sodium, serum 140 mmol/L 488-032 4185/02/09 urea nitrogen, blood 27 mg/dL 7-18 creatinine, serum 1.30 mg/dL 0.55-1.30 alanine aminotransferase (SGPT), serum 38 U/L 12-78 aspartate aminotransferase (SGOT), serum 34 U/L 15-37 calcium, serum 8.6 mg/dL 8.5-10.1 bilirubin, serum, total 0.30 mg/dL 0.00-1.00 Encounters Code Encounter Date Provider Facility CPT-58328 Level 3 Est. Patient 16:07:19 CDT Simona Galloway APRN [facility] CPT-89834 Level 4 Est. Patient 13:31:03 CDT Austin Albarado MD [facility] CPT-38560 Level 4 Est. Patient 17:54:41 HIGH FREQUENCY MILL OPERATOR Austin Albarado MD [facility] CPT-96740 Level 4 Est. Patient 16:11:14 HIGH FREQUENCY MILL OPERATOR Austin Albarado MD [facility] CPT-87319 Level 4 Est. Patient 23:08:56 CDT Austin Albarado MD [facility] CPT-30728 Level 4 Est. Patient 13:27:28 CDT Garcia Stroud MD [facility]-61896 Level 4 Est. Patient 10:51:20 CDT Austin Albarado MD [facility] CPT-50238 Level 4 Est. Patient 20:09:43 HIGH FREQUENCY MILL OPERATOR Austin Albarado MD [facility] CPT-74614 Level 4 Est. Patient 21:00:28 CDT Austin Albarado MD [facility] CPT-59683 Level 4 Est. Patient 10:03:37 CDT Austin Albarado MD [facility] CPT-36930 Level 3 Est. Patient 10:50:28 HIGH FREQUENCY MILL OPERATOR Austin Albarado MD [facility] CPT-72268 Level 4 Est. Patient 21:31:41 HIGH FREQUENCY MILL OPERATOR Austin Albarado MD [facility] CPT-84660 Level 3 Est. Patient 16:22:54 HIGH FREQUENCY MILL OPERATOR Jann Law DO [facility] CPT-13136 Level 3 Est. Patient 11:04:53 HIGH FREQUENCY MILL OPERATOR Tristan Vaughn MD [facility] CPT-98016 Level 4 Est. Patient 09:50:59 CDT Austin Albarado MD [facility] CPT-12242 Level 4 Est. Patient 09:29:00 CDT Austin Albarado MD [facility] CPT-17151 Level 4 Est. Patient 14:23:07 CDT Austin Albarado MD [facility] CPT-46122 Level 4 Est. Patient 14:27:26 CDT Austin Albarado MD [facility] CPT-01232 Level 4 Est. Patient 12:51:43 HIGH FREQUENCY MILL OPERATOR Austin Albarado MD [facility] CPT-34012 Level 3 New Patient 14:17:38 HIGH FREQUENCY MILL OPERATOR Austin Albarado MD [facility] CPT-69869 Level 3 New Patient 11:28:18 HIGH FREQUENCY MILL OPERATOR Austin Albarado MD [facility] Procedures Code Procedure Name Date Entry Date Standard Description CPT-G0439 Subsequent Annual Wellness Exam 08:13:24 CDT CPT-TCMM Transitional Care Mgmt-Moderate 14:53:36 HIGH FREQUENCY MILL OPERATOR CPT-76550 No Charge Offi Visit 10:19:33 HIGH FREQUENCY MILL OPERATOR CPT-87265 Chest 2V Frontal and Lat - XRAY USE ONLY 15:01:41 HIGH FREQUENCY MILL OPERATOR CPT-77613 First Vx - Ix admin for Medicare patients 16:00:49 CDT CPT-38270 Fluzone High-Dose Intramuscular Suspension 16:00:49 CDT CPT-G0009 Administration of Pneumococcal Vaccine 13:25:27 CDT CPT-41083 Prevnar 13 Intramuscular Suspension 13:25:27 CDT 09/26 CPT-G0438 Initial Annual Wellness Exam 11:28:26 CDT CPT-33437 Chest 2V Frontal and Lat 15:00:00 HIGH FREQUENCY MILL OPERATOR CPT-54417 Breathing Tx 14:49:25 HIGH FREQUENCY MILL OPERATOR CPT-81243 Fluzone High Dose 15:08:41 HIGH FREQUENCY MILL OPERATOR CPT-46411 Immunization Single Admin 15:08:41 HIGH FREQUENCY MILL OPERATOR CPT-98620 Fluzone High Dose 17:31:19 CDT CPT-21916 Administration single or combination vaccine inc oral 17 :31:19 CDT CPT-48722 Venipuncture Draw Fee 11:03:05 CDT CPT-TCMM Transitional Care Mgmt-Moderate 16:32:35 CDT CPT-20312 Chest 2V Frontal and Lat 11:51:09 CDT CPT-G0008 Administration of Influenza Virus Vaccine 15:09:08 CDT CPT-60707 Fluzone High-Dose Intramuscular Suspension 15:09:08 CDT CPT-71434 Administration single or combination vaccine inc oral 17 :07:02 HIGH FREQUENCY MILL OPERATOR CPT-02246 Influenza High Dose age 65+ 17:07:02 HIGH FREQUENCY MILL OPERATOR
--- OUTSIDE RECORDS SUMMARY | 2017-02-27 22:34 | XMS REPORT | Clinical Summary ---
Author Author Admin, DILLONE Organization [employer] Address Unknown Phone Unavailable Allergies, Adverse Reactions, [...] Coronary atherosclerosis of unspecified type of vessel, [place] or graft Peripheral edema 782.3 Active Austin [...] 1/2 tab daily for 3 days PREDNISONE 80249296902 Active Austin Albarado MD Active LEVAQUIN 500 MG TAB 1 tablet by mouth daily LEVOFLOXACIN 43607150546 Active Mica Sneed Active LEVAQUIN 500 MG TAB 1 tablet by mouth daily LEVOFLOXACIN 92303102082 No Longer Active Madhavi Fiore Active FUROSEMIDE 20 MG TABS take 1 tab po BID for swelling FUROSEMIDE 55242759646 Active Austin Albarado MD Active PREDNISONE 20 MG ORAL TABS 3 tabs po for 3 days than,2 tabs po for 3 days,1 tab po for 3 days, 1/2 tab po for 3 days. PREDNISONE 21832310985 Active Mica Sneed Active AMOXICILLIN 500 MG ORAL TABS Take one by mouth 3 times daily, morning, afternoon and evening.] AMOXICILLIN 13486207932 No Longer Active Garcia Stroud MD Active PREDNISONE 20 MG ORAL TABS 3 daily for 3 days than, 2 tabs daily for 3 days than, 2 tabs daily for 3 days than, 1 tab daily for 3 days than 1/2 tab daily for 3 days. PREDNISONE 70431632257 No Longer Active Tracie Arrington APRN Active FLUTICASONE PROPIONATE 50 MCG/ACT SUSP 1 to 2 sprays each nostril daily 08/21 FLUTICASONE PROPIONATE 60955691252 Active Simona Galloway APRN Active PREDNISONE 10 MG TAB take 1 tab po qday for severe COPD PREDNISONE 36630509658 Active Austin Albaraod MD Active PREDNISONE 20 MG ORAL TABS 3 TABS PO FOR 3 DAYS,THAN 2 TABS FOR 3 DAYS THAN, 1 TAB FOR 3 DAYS THAN, 1/2 TAB FOR 3 DAYS. PREDNISONE 70407689586 No Longer Active Austin Albarado MD Active LEVAQUIN 500 MG TAB 1 tablet by mouth daily for 10 days. LEVOFLOXACIN 37647141950 No Longer Active Austin Albarado MD Active PREDNISONE 20 MG TAB take 3 tabs daily for 3 days, 2 tabs daily for 3 days, 1 tab daily for 3 days, 1/2 tab daily for 3 days PREDNISONE 36351029179 No Longer Active Simona Galloway APRN Active ZITHROMAX 1 GM ORAL PACK DIRECTED AZITHROMYCIN 63992282047 No Longer Active Simona Galloway APRN Active PREDNISONE 20 MG TAB 2 tabs daily for 4 days, 1 tab daily for 4 days, 1/2 tab daily for 4 days PREDNISONE 34076705676 No Longer Active Austin Albarado MD Active LEVAQUIN 500 MG TAB 1 tablet by mouth daily LEVOFLOXACIN 02408373475 No Longer Active Austin Albarado MD Active PREDNISONE 20 MG TAB take 3 tabs daily for 3 days, 2 tabs daily for 3 days, 1 tab daily for 3 days, 1/2 tab daily for 3 days PREDNISONE 76444723344 No Longer Active Austin Albarado MD Active DOXYCYCLINE HYCLATE 100 MG CAP 1 cap by mouth twice daily DOXYCYCLINE HYCLATE 74126557065 No Longer Active Joshllina Ly BOWEN Active ALBUTEROL SULFATE (2.5 MG/3ML) 0.083% NEBU nebulize 1 vial q 4-6 hours prn shortness of breath ALBUTEROL SULFATE 39569073286 No Longer Active Joshllina Ly [employer] CONSULTANT Active TORSEMIDE 20 MG TABS 1 TAB PO BID TORSEMIDE 21885284140 No Longer Active Joshllaftab Modi APRN Active PREDNISONE 20 MG TAB 2 tabs daily for 3 days, 1 tab daily for 3 days, 1/2 tab daily for 2 days PREDNISONE 76231902155 No Longer Active Austin Albarado MD Active LEVOFLOXACIN 500 MG ORAL TABS take 1 tab po qday LEVOFLOXACIN 84040796272 No Longer Active Austin Albarado MD Active PREDNISONE 20 MG TAB 2 tablets today, then 1 tablet by mouth days 2-5 PREDNISONE 81731114625 No Longer Active Austin Albarado MD Active AZITHROMYCIN 500 MG SOLR 1 po q day AZITHROMYCIN 86955749720 No Longer Active Austin Albarado MD Active KEFLEX 500 MG CAP 1 po TID x 7 days CEPHALEXIN 71960353733 No Longer Active Tristan Vaughn MD Active EQL VISION FORMULA TABS 1 TAB PO DAILY MULTIPLE VITAMINS-MINERALS 32556341296 No Longer Active Tristan Vaughn MD Active CHANTIX STARTING MONTH ELVIS 0.5 MG X 11 & 1 MG X 42 TABS 0.5mg daily for 3 days , then 0.5mg BID for 4 days, then 1mg BID VARENICLINE TARTRATE 21745873187 No Longer Active Tristan Vaughn MD Active LEVOTHYROXINE SODIUM 200 MCG TABS 1 TAB PO DAILY LEVOTHYROXINE SODIUM 95178559387 No Longer Active Tristan Vaughn MD Active LIOTHYRONINE SODIUM 50 MCG TABS take 1 tab po qday for hypothyroidism LIOTHYRONINE SODIUM 46849799646 No Longer Active Austin Albarado MD Active SYNTHROID 0.025 MG TAB 1 tablet by mouth daily LEVOTHYROXINE SODIUM 98051347555 No Longer Active Austin Albarado MD Active ARMOUR THYROID 120 MG TABS take 1 tab po qday for hypothyroidism THYROID 09457472198 Active Austin Albarado MD Active FLONASE 50 MCG/ACT SUSP 1 spray each nostril am and hs FLUTICASONE PROPIONATE Active Simona Galloway APRN Active ZITHROMAX 1 GM PACK DIRECTED AZITHROMYCIN 46937312719 No Longer Active Austin Albarado MD Active PREDNISONE 20 MG TAB 2 tabs daily for 3 days, 1 tab daily for 3 days, 1/2 tab daily for 2 days PREDNISONE 88931021358 No Longer Active Austin Albarado MD Active ZITHROMAX 250 MG TAB 2 po today, then 1 po q days 2-5 AZITHROMYCIN 21865237642 No Longer Active Austin Albarado MD Active NYSTATIN-TRIAMCINOLONE 623387-1.1 UNIT/GM-% OINT Apply to affected area TID NYSTATIN-TRIAMCINOLONE 29633086473 Active Austin Albarado MD Active IPRATROPIUM-ALBUTEROL 0.5-2.5 (3) MG/3ML SOLN 1 VIAL NEB Q 6 HRS PRN IPRATROPIUM-ALBUTEROL 86899115442 Active Simona Galloway APRN Active PROAIR HFA 108 (90 BASE) MCG/ACT AERS take 1-2 puffs q4hrs prn cough/ SOB ALBUTEROL SULFATE 43389096650 Active Austin Albarado MD Active ADVAIR DISKUS 500-50 MCG/DOSE AEPB ONE INH BID FLUTICASONE- SALMETEROL 70499214981 Active Austin Albarado MD Active ZITHROMAX 1 GM PACK DIRECTED ZITHROMAX 1 GM PACK 182159 AZITHROMYCIN Inactive SYNTHROID 0.025 MG TAB 1 tablet by mouth daily SYNTHROID 0.025 MG TAB 195315 LEVOTHYROXINE SODIUM Inactive LIOTHYRONINE SODIUM 50 MCG TABS take 1 tab po qday for hypothyroidism LIOTHYRONINE SODIUM 50 MCG TABS 414578 LIOTHYRONINE SODIUM Inactive LEVOTHYROXINE SODIUM 200 MCG TABS 1 TAB PO DAILY LEVOTHYROXINE SODIUM 200 MCG TABS 190885 LEVOTHYROXINE SODIUM Inactive CHANTIX STARTING MONTH ELVIS [...] po q day AZITHROMYCIN 500 MG SOLR 11198485035 AZITHROMYCIN Inactive PREDNISONE 20 MG TAB 2 tablets today, then 1 tablet by mouth days 2-5 PREDNISONE 20 MG TAB 435617 PREDNISONE Inactive TORSEMIDE 20 MG TABS 1 TAB PO BID TORSEMIDE 20 MG TABS 302530 TORSEMIDE Inactive ALBUTEROL SULFATE (2.5 MG/3ML) 0.083% NEBU nebulize 1 vial q 4-6 hours prn shortness of breath ALBUTEROL SULFATE (2.5 MG/3ML) 0.083% NEBU 956088 ALBUTEROL SULFATE Inactive LEVAQUIN 500 MG TAB 1 tablet by mouth daily LEVAQUIN 500 MG TAB 041754 LEVOFLOXACIN Inactive PREDNISONE 20 MG TAB 2 tabs daily for 4 days, 1 tab daily for 4 days, 1/2 tab daily for 4 days PREDNISONE 20 MG TAB 558914 PREDNISONE Inactive ZITHROMAX 1 GM ORAL PACK DIRECTED ZITHROMAX 1 GM ORAL PACK 022302 AZITHROMYCIN Inactive LEVAQUIN 500 MG TAB 1 tablet by mouth daily for 10 days. LEVAQUIN 500 MG TAB 699781 LEVOFLOXACIN Inactive PREDNISONE 20 MG ORAL TABS 3 TABS PO FOR 3 DAYS,THAN 2 TABS FOR 3 DAYS THAN, 1 TAB FOR 3 DAYS THAN, 1/2 TAB FOR 3 DAYS. PREDNISONE 20 MG ORAL TABS 963043 PREDNISONE Inactive PREDNISONE 20 MG ORAL TABS 3 daily for 3 days than, 2 tabs daily for 3 days than, 2 tabs daily for 3 days than, 1 tab daily for 3 days than 1/2 tab daily for 3 days. PREDNISONE 20 MG ORAL TABS 344280 PREDNISONE Inactive AMOXICILLIN 500 MG ORAL TABS Take one by mouth 3 times daily, morning, afternoon and evening.] AMOXICILLIN 500 MG ORAL TABS 688214 AMOXICILLIN Inactive LEVAQUIN 500 MG TAB 1 tablet by mouth daily LEVAQUIN 500 MG TAB 233329 LEVOFLOXACIN Inactive ZITHROMAX 250 MG TAB 2 po today, then 1 po q days 2-5 ZITHROMAX 250 MG TAB 8128061 AZITHROMYCIN Inactive PREDNISONE 20 MG TAB 2 tabs daily for 3 days, 1 tab daily for 3 days, 1/2 tab daily for 2 days PREDNISONE 20 MG TAB 385516 PREDNISONE Inactive KEFLEX 500 MG CAP 1 po TID x 7 days KEFLEX 500 MG CAP 717186 CEPHALEXIN Inactive LEVOFLOXACIN 500 MG ORAL TABS take 1 tab po qday LEVOFLOXACIN 500 MG ORAL TABS 542301 LEVOFLOXACIN Inactive PREDNISONE 20 MG TAB 2 tabs daily for 3 days, 1 tab daily for 3 days, 1/2 tab daily for 2 days PREDNISONE 20 MG TAB 965579 PREDNISONE Inactive DOXYCYCLINE HYCLATE 100 MG CAP 1 cap by mouth twice daily DOXYCYCLINE HYCLATE 100 MG CAP 0745451 DOXYCYCLINE HYCLATE Inactive PREDNISONE 20 MG TAB take 3 tabs daily for 3 days, 2 tabs daily for 3 days, 1 tab daily for 3 days, 1/2 tab daily for 3 days PREDNISONE 20 MG TAB 560242 PREDNISONE Inactive PREDNISONE 20 MG TAB take 3 tabs daily for 3 days, 2 tabs daily for 3 days, 1 tab daily for 3 days, 1/2 tab daily for 3 days PREDNISONE 20 MG TAB 025818 PREDNISONE Inactive Advance Directives Directive Description Start [...] 43.52 m[iU]/mL 0.36-3.74 sodium, serum 140 mmol/L 018-928 8630/04/06 carbon dioxide, venous blood 36.3 mmol/L 21.0-32.0 potassium, serum 4.9 mmol/L 3.5-5.2 chloride, serum 100 mmol/L 98-107 blood glucose 62 mg/dL 65-110 urea nitrogen, blood 24 mg/dL 7-18 creatinine, serum 1.09 mg/dL 0.55-1.30 alanine aminotransferase (SGPT), serum 44 U/L 12-78 aspartate aminotransferase (SGOT), serum 25 U/L 15-37 calcium, serum 8.7 mg/dL 8.5-10.1 bilirubin, serum, total 0.50 mg/dL 0.00-1.00 cholesterol, serum 189 mg/dL 568-455 7919/04/06 triglyceride, serum, fasting 117 mg/dL 30-200 HDL [...] 142-424 Encounters Code Encounter Date Provider Facility CPT-78117 Level 4 Est. Patient 17:54:41 SPEEDER WORKER Austin Albarado MD [facility] CPT-85232 Level 4 Est. Patient 16:11:14 SPEEDER WORKER Austin Albarado MD [facility] CPT-44265 Level 4 Est. Patient 23:08:56 CDT Austin Albarado MD [facility] CPT-49841 Level 4 Est. Patient 13:27:28 CDT Garcia Stroud MD [facility] CPT-21010 Level 4 Est. Patient 10:51:20 CDT Austin Albarado MD [facility]-31080 Level 4 Est. Patient 20:09:43 SPEEDER WORKER Austin Albarado MD [facility]-02836 Level 4 Est. Patient 21:00:28 CDT Austin Albarado MD [facility]-12342 Level 4 Est. Patient 10:03:37 CDT Austin Albarado MD [facility]-18307 Level 3 Est. Patient 10:50:28 SPEEDER WORKER Austin Albarado MD [facility]-18245 Level 4 Est. Patient 21:31:41 SPEEDER WORKER Austin Albarado MD [facility]-87334 Level 3 Est. Patient 16:22:54 SPEEDER WORKER Jann Law DO [facility]-05557 Level 3 Est. Patient 11:04:53 SPEEDER WORKER Tristan Vaughn MD [facility] CPT-36766 Level 4 Est. Patient 09:50:59 CDT Austin Albarado MD [facility]-13387 Level 4 Est. Patient 09:29:00 CDT Austin Albarado MD [facility]-02201 Level 4 Est. Patient 14:23:07 CDT Austin Albarado MD [facility]-42085 Level 4 Est. Patient 14:27:26 CDT Austin Albarado MD [facility]-04156 Level 4 Est. Patient 12:51:43 SPEEDER WORKER Austin Albarado MD [facility] CPT-11618 Level 3 New Patient 14:17:38 SPEEDER WORKER Austin Albarado MD [facility] CPT-27885 Level 3 New Patient 11:28:18 SPEEDER WORKER Austin Albarado MD [facility] Procedures Code Procedure Name Date Entry Date Standard Description CPT-78912 First Vx - Ix admin for Medicare patients 16:00:49 CDT CPT-55160 Fluzone High-Dose Intramuscular Suspension 16:00:49 CDT CPT-G0009 Administration of Pneumococcal Vaccine 13:25:27 CDT CPT-45400 Prevnar 13 Intramuscular Suspension 13:25:27 CDT 09/26 CPT-G0438 Initial Annual Wellness Exam 11:28:26 CDT CPT-61865 Chest 2V Frontal and Lat 15:00:00 SPEEDER WORKER CPT-67373 Breathing Tx 14:49:25 SPEEDER WORKER CPT-85931 Fluzone High Dose 15:08:41 SPEEDER WORKER CPT-69459 Immunization Single Admin 15:08:41 SPEEDER WORKER CPT-51432 Fluzone High Dose 17:31:19 CDT CPT-96308 Administration single or combination vaccine inc oral 17 :31:19 CDT CPT-60137 Venipuncture Draw Fee 11:03:05 CDT CPT-TCMM Transitional Care Mgmt-Moderate 16:32:35 CDT CPT-60942 Chest 2V Frontal and Lat 11:51:09 CDT CPT-G0008 Administration of Influenza Virus Vaccine 15:09:08 CDT CPT-66147 Fluzone High-Dose Intramuscular Suspension 15:09:08 CDT CPT-16883 Administration single or combination vaccine inc oral 17 :07:02 SPEEDER WORKER CPT-53858 Influenza High Dose age 65+ 17:07:02 SPEEDER WORKER
--- OUTSIDE RECORDS SUMMARY | 2017-02-27 22:35 | XMS REPORT ---
Author Author [facility] Medical Staff Organization [facility] Address [address] [place], [place] [id number] Phone [phone] Care Team Providers Care School Bus Operator Name Role Phone YANDY MARY MD PP [phone] Summary purpose TRANSITION OF CARE AUTO GENERATION [...]
--- OUTSIDE RECORDS SUMMARY | 2017-02-27 22:35 | XMS REPORT | Clinical Summary ---
Author Author Admin, LEE Organization [facility] Address Unknown Phone Unavailable Allergies, Adverse Reactions, [...] 1/2 tab daily for 4 days PREDNISONE 95648827291 No Longer Active Austin Albarado MD Active LEVAQUIN 500 MG TAB 1 tablet by mouth daily LEVOFLOXACIN 77640639755 No Longer Active Austin Albarado MD Active PREDNISONE 20 MG TAB take 3 tabs daily for 3 days, 2 tabs daily for 3 days, 1 tab daily for 3 days, 1/2 tab daily for 3 days PREDNISONE 29839229217 No Longer Active Austin Albarado MD Active DOXYCYCLINE HYCLATE 100 MG CAP 1 cap by mouth twice daily DOXYCYCLINE HYCLATE 07237289621 No Longer Active 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 EDUCATIONAL SIGN LANGUAGE INTERPRETER Active ALBUTEROL SULFATE (2.5 MG/3ML) 0.083% NEBU nebulize 1 vial q 4-6 hours prn shortness of breath ALBUTEROL SULFATE 96209290906 No Longer Active 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 EDUCATIONAL SIGN LANGUAGE INTERPRETER Active TORSEMIDE 20 MG TABS 1 TAB PO BID TORSEMIDE 75131545292 No Longer Active 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 EDUCATIONAL SIGN LANGUAGE INTERPRETER Active PREDNISONE 20 MG TAB 2 tabs daily for 3 days, 1 tab daily for 3 days, 1/2 tab daily for 2 days PREDNISONE 09139860915 No Longer Active Austin Albarado MD Active LEVOFLOXACIN 500 MG ORAL TABS take 1 tab po qday LEVOFLOXACIN 91981875085 No Longer Active Austin Albarado MD Active PREDNISONE 20 MG TAB 2 tablets today, then 1 tablet by mouth days 2-5 PREDNISONE 42039392838 No Longer Active Austin Albarado MD Active AZITHROMYCIN 500 MG SOLR 1 po q day AZITHROMYCIN 54218908027 No Longer Active Austin Albarado MD Active KEFLEX 500 MG CAP 1 po TID x 7 days CEPHALEXIN 46872317549 No Longer Active Tristan Vaughn MD Active EQL VISION FORMULA TABS 1 TAB PO DAILY MULTIPLE VITAMINS-MINERALS 33890655781 No Longer Active Tristan Vaughn MD Active CHANTIX STARTING MONTH ELVIS 0.5 MG X 11 & 1 MG X 42 TABS 0.5mg daily for 3 days , then 0.5mg BID for 4 days, then 1mg BID VARENICLINE TARTRATE 30082057461 No Longer Active Tristan Vaughn MD Active LEVOTHYROXINE SODIUM 200 MCG TABS 1 TAB PO DAILY LEVOTHYROXINE SODIUM 87787490801 No Longer Active Tristan Vaughn MD Active LIOTHYRONINE SODIUM 50 MCG TABS take 1 tab po qday for hypothyroidism LIOTHYRONINE SODIUM 12581053693 No Longer Active Austin Albarado MD Active SYNTHROID 0.025 MG TAB 1 tablet by mouth daily LEVOTHYROXINE SODIUM 78601293326 No Longer Active Austin Albarado MD Active ARMOUR THYROID 120 MG TABS take 1 tab po qday for hypothyroidism THYROID 55136684150 Active Austin Albarado MD Active FLONASE 50 MCG/ACT SUSP 1 spray each nostril am and hs FLUTICASONE PROPIONATE 71662251536 Active Austin Albarado MD Active ZITHROMAX 1 GM PACK DIRECTED AZITHROMYCIN 26810990643 No Longer Active Austin Albarado MD Active PREDNISONE 20 MG TAB 2 tabs daily for 3 days, 1 tab daily for 3 days, 1/2 tab daily for 2 days PREDNISONE 86054152930 No Longer Active Austin Albarado MD Active ZITHROMAX 250 MG TAB 2 po today, then 1 po q days 2-5 AZITHROMYCIN 38540515135 No Longer Active Austin Albarado MD Active NYSTATIN-TRIAMCINOLONE 532742-8.1 UNIT/GM-% OINT Apply to affected area TID NYSTATIN-TRIAMCINOLONE 83833750760 Active Austin Albarado MD Active IPRATROPIUM-ALBUTEROL 0.5-2.5 (3) MG/3ML SOLN 1 VIAL NEB Q 6 HRS PRN IPRATROPIUM-ALBUTEROL 71996437959 Active Austin Albarado MD Active PROAIR HFA 108 (90 BASE) MCG/ACT AERS take 1-2 puffs q4hrs prn cough/ SOB ALBUTEROL SULFATE 57177106713 Active Austin Albarado MD Active ADVAIR DISKUS 500-50 MCG/DOSE AEPB ONE INH BID FLUTICASONE- SALMETEROL 30823268361 Active Austin Albarado MD Active ZITHROMAX 1 GM PACK DIRECTED ZITHROMAX 1 GM PACK 759073 AZITHROMYCIN Inactive SYNTHROID 0.025 MG TAB 1 tablet by mouth daily SYNTHROID 0.025 MG TAB 764902 LEVOTHYROXINE SODIUM Inactive LIOTHYRONINE SODIUM 50 MCG TABS take 1 tab po qday for hypothyroidism LIOTHYRONINE SODIUM 50 MCG TABS 745436 LIOTHYRONINE SODIUM Inactive LEVOTHYROXINE SODIUM 200 MCG TABS 1 TAB PO DAILY LEVOTHYROXINE SODIUM 200 MCG TABS 783006 LEVOTHYROXINE SODIUM Inactive CHANTIX STARTING MONTH ELVIS [...] po q day AZITHROMYCIN 500 MG SOLR 534786 AZITHROMYCIN Inactive PREDNISONE 20 MG TAB 2 tablets today, then 1 tablet by mouth days 2-5 PREDNISONE 20 MG TAB 548973 PREDNISONE Inactive TORSEMIDE 20 MG TABS 1 TAB PO BID TORSEMIDE 20 MG TABS 966653 TORSEMIDE Inactive ALBUTEROL SULFATE (2.5 MG/3ML) 0.083% NEBU nebulize 1 vial q 4-6 hours prn shortness of breath ALBUTEROL SULFATE (2.5 MG/3ML) 0.083% NEBU 342318 ALBUTEROL SULFATE Inactive LEVAQUIN 500 MG TAB 1 tablet by mouth daily LEVAQUIN 500 MG TAB 673101 LEVOFLOXACIN Inactive PREDNISONE 20 MG TAB 2 tabs daily for 4 days, 1 tab daily for 4 days, 1/2 tab daily for 4 days PREDNISONE 20 MG TAB 813901 PREDNISONE Inactive ZITHROMAX 250 MG TAB 2 po today, then 1 po q days 2-5 ZITHROMAX 250 MG TAB 3486294 AZITHROMYCIN Inactive PREDNISONE 20 MG TAB 2 tabs daily for 3 days, 1 tab daily for 3 days, 1/2 tab daily for 2 days PREDNISONE 20 MG TAB 729311 PREDNISONE Inactive KEFLEX 500 MG CAP 1 po TID x 7 days KEFLEX 500 MG CAP 279761 CEPHALEXIN Inactive LEVOFLOXACIN 500 MG ORAL TABS take 1 tab po qday LEVOFLOXACIN 500 MG ORAL TABS 515413 LEVOFLOXACIN Inactive PREDNISONE 20 MG TAB 2 tabs daily for 3 days, 1 tab daily for 3 days, 1/2 tab daily for 2 days PREDNISONE 20 MG TAB 439134 PREDNISONE Inactive DOXYCYCLINE HYCLATE 100 MG CAP 1 cap by mouth twice daily DOXYCYCLINE HYCLATE 100 MG CAP 1312358 DOXYCYCLINE HYCLATE Inactive PREDNISONE 20 MG TAB take 3 tabs daily for 3 days, 2 tabs daily for 3 days, 1 tab daily for 3 days, 1/2 tab daily for 3 days PREDNISONE 20 MG TAB 922196 PREDNISONE Inactive Advance Directives Directive Description Start [...] ... - Chemistry sodium, serum 140 mmol/L 793-011 0277/03/09 potassium, serum 4.9 mmol/L 3.5-5.2 chloride, serum [...] Panel, B-Type Natriuretic Peptid ... - Hematology erythrocyte (RBC) count 5.20 10^6/MM^3 10*6/mm3 4.69-6.13 lymphocytes as percent of blood leukocytes 21.7 % 20.5-51.1 monocytes as percent of blood leukocytes 7.1 % 1.7-9.3 neutrophils as percent of blood leukocytes 64.4 % 42.2-75.2 leukocyte count, blood 12.8 10^3/MM^3 10*3/mm3 4.6-10.2 hemoglobin, blood 17.0 g/dL 13.5-17.5 hematocrit, blood 50.2 % 41.0-53.0 mean corpuscular volume, RBC 97 fL 80-97 mean corpuscular hemoglobin, RBC 32.6 pg 27.0-31.2 mean corpuscular hemoglobin concentration, RBC 33.8 G/DL % 31.8- 35.4 red blood cell distribution width 15.2 % 11.6-14.8 platelet count 347 10^3/MM^3 10*3/mm3 142-424 Encounters Code Encounter Date Provider Facility CPT-93032 Level 4 Est. Patient 10:03:37 CDT Austin Albarado MD [facility] CPT-46950 Level 3 Est. Patient 10:50:28 DRAPERY CUTTER MACHINE Austin Albarado MD [facility] CPT-18124 Level 4 Est. Patient 21:31:41 DRAPERY CUTTER MACHINE Austin Albarado MD [facility] CPT-09466 Level 3 Est. Patient 16:22:54 DRAPERY CUTTER MACHINE Jann Law DO [facility] CPT-01697 Level 3 Est. Patient 11:04:53 DRAPERY CUTTER MACHINE Tristan Vaughn MD [facility] CPT-13695 Level 4 Est. Patient 09:50:59 CDT Austin Albarado MD [facility] CPT-92902 Level 4 Est. Patient 09:29:00 CDT Austin Albarado MD [facility] CPT-36955 Level 4 Est. Patient 14:23:07 CDT Austin Albarado MD [facility] CPT-98590 Level 4 Est. Patient 14:27:26 CDT Austin Albarado MD [facility] CPT-93076 Level 4 Est. Patient 12:51:43 DRAPERY CUTTER MACHINE Austin Albarado MD [facility] CPT-27613 Level 3 New Patient 14:17:38 DRAPERY CUTTER MACHINE Austin Albarado MD [facility] CPT-21693 Level 3 New Patient 11:28:18 DRAPERY CUTTER MACHINE Austin Albarado MD [facility] Procedures Code Procedure Name Date Entry Date Standard Description CPT-TCMM Transitional Care Mgmt-Moderate 16:32:35 CDT CPT-88342 Chest 2V Frontal and Lat 11:51:09 CDT CPT-G0008 Administration of Influenza Virus Vaccine 15:09:08 CDT CPT-22356 Fluzone High-Dose Intramuscular Suspension 15:09:08 CDT CPT-57519 Administration single or combination vaccine inc oral 17 :07:02 DRAPERY CUTTER MACHINE CPT-12365 Influenza High Dose age 65+ 17:07:02 DRAPERY CUTTER MACHINE
--- OUTSIDE RECORDS SUMMARY | 2017-02-27 22:35 | XMS REPORT | Clinical Summary ---
Author Author Admin, E Organization [employer] Address Unknown Phone Unavailable Allergies, Adverse Reactions, [...] Coronary atherosclerosis of unspecified type of vessel, [place] or graft Peripheral edema 782.3 Active Austin [...] Q 6 hrs prn DX: J44.9 IPRATROPIUM-ALBUTEROL 34512400690 Active Mackenzie Sher RMA Active IPRATROPIUM BROMIDE 0.02 % INH SOLN 1 q 6 hr PRN Dx: J44.1 12/29 IPRATROPIUM BROMIDE 31355668522 No Longer Active Mackenzie Christos RMA Active ACYCLOVIR 400 MG TABS 1 pill three times daily ACYCLOVIR 04367628306 No Longer Active Austin Albarado MD Active POTASSIUM CHLORIDE ER 20 MEQ ORAL CR-TABS 1 po BID along with the lasix 12/24 POTASSIUM CHLORIDE 33755047700 Active Austin Albarado MD Active FUROSEMIDE 40 MG TAB 1 tablet by mouth BID for swelling FUROSEMIDE 04587867152 Active Austin Albarado MD Active CELEXA 20 MG TABS 1 tablet by mouth daily CITALOPRAM HYDROBROMIDE 65358528511 Active Austin Albarado MD Active KEFLEX 500 MG CAP 1 po BID x 7 days CEPHALEXIN 24090291368 No Longer Active Mica Sneed Active KEFLEX 500 MG CAP 1 po BID x 7 days CEPHALEXIN 47385834448 No Longer Active Simona Galloway APRN Active ACYCLOVIR 400 MG TABS 1 pill three times daily ACYCLOVIR 18957866437 No Longer Active Austin Albarado MD Active ACYCLOVIR 400 MG TABS 1 pill three times daily ACYCLOVIR 72884252024 No Longer Active Austin Albarado MD Active ALBUTEROL SULFATE 0.083 % NEBU SOLN one vial per nebulizer every 4 hours as needed Dx. J44.1 ALBUTEROL SULFATE 41527762666 Active Austin Albarado MD Active PROAIR HFA 108 (90 BASE) MCG/ACT AERS take 1-2 puffs q 4-6 hrs prn cough/ SOB ALBUTEROL SULFATE 26559718167 Active Nella José LPN Active IPRATROPIUM-ALBUTEROL 0.5-2.5 (3) MG/3ML SOLN 1 VIAL NEB Q 4-6 HRS PRN 04/18 IPRATROPIUM-ALBUTEROL 91893888454 No Longer Active Austin Albarado MD Active ATIVAN 0.5 MG TAB 1 po QD PRN Anxiety LORAZEPAM 94451526548 Active Austin Albarado MD Active PREDNISONE 20 MG ORAL TABS 3 tabs po for 3 days than,2 tabs po for 3 days,1 tab po for 3 days, 1/2 tab po for 3 days. PREDNISONE 59340995511 No Longer Active Simona Galloway APRN Active LEVAQUIN 500 MG TAB 1 tablet by mouth daily LEVOFLOXACIN 50170153438 No Longer Active Simona Galloway APRN Active PREDNISONE 20 MG TAB take 3 tabs daily for 3 days, 2 tabs daily for 3 days, 1 tab daily for 3 days, 1/2 tab daily for 3 days PREDNISONE 44740916486 No Longer Active Austin Albarado MD Active LEVAQUIN 500 MG TAB 1 tablet by mouth daily LEVOFLOXACIN 73578056170 No Longer Active Madhavi Macarena Active FUROSEMIDE 20 MG TABS take 1 tab po BID for swelling FUROSEMIDE 76591133061 Active Austin Albarado MD Active AMOXICILLIN 500 MG ORAL TABS Take one by mouth 3 times daily, morning, afternoon and evening.] AMOXICILLIN 29207991080 No Longer Active Garcia Stroud MD Active PREDNISONE 20 MG ORAL TABS 3 daily for 3 days than, 2 tabs daily for 3 days than, 2 tabs daily for 3 days than, 1 tab daily for 3 days than 1/2 tab daily for 3 days. PREDNISONE 42081317992 No Longer Active Tracie Arrington APRN Active FLUTICASONE PROPIONATE 50 MCG/ACT SUSP 1 to 2 sprays each nostril daily 08/21 FLUTICASONE PROPIONATE 97226627025 Active Austin Albarado MD Active PREDNISONE 10 MG TAB take 1 tab po qday for severe COPD PREDNISONE 63357967478 Active Austin Albarado MD Active PREDNISONE 20 MG ORAL TABS 3 TABS PO FOR 3 DAYS,THAN 2 TABS FOR 3 DAYS THAN, 1 TAB FOR 3 DAYS THAN, 1/2 TAB FOR 3 DAYS. PREDNISONE 39614349860 No Longer Active Austin Albarado MD Active LEVAQUIN 500 MG TAB 1 tablet by mouth daily for 10 days. LEVOFLOXACIN 67123944211 No Longer Active Austin Albarado MD Active PREDNISONE 20 MG TAB take 3 tabs daily for 3 days, 2 tabs daily for 3 days, 1 tab daily for 3 days, 1/2 tab daily for 3 days PREDNISONE 38746219015 No Longer Active Simona Galloway APRN Active ZITHROMAX 1 GM ORAL PACK DIRECTED AZITHROMYCIN 88156533234 No Longer Active Simona Galloway APRN Active PREDNISONE 20 MG TAB 2 tabs daily for 4 days, 1 tab daily for 4 days, 1/2 tab daily for 4 days PREDNISONE 96561319936 No Longer Active Austin Albarado MD Active LEVAQUIN 500 MG TAB 1 tablet by mouth daily LEVOFLOXACIN 32236966991 No Longer Active Austin Albarado MD Active PREDNISONE 20 MG TAB take 3 tabs daily for 3 days, 2 tabs daily for 3 days, 1 tab daily for 3 days, 1/2 tab daily for 3 days PREDNISONE 63620735709 No Longer Active Austin Albarado MD Active DOXYCYCLINE HYCLATE 100 MG CAP 1 cap by mouth twice daily DOXYCYCLINE HYCLATE 76575076846 No Longer Active Esperanza Modi APRN Active ALBUTEROL SULFATE (2.5 MG/3ML) 0.083% NEBU nebulize 1 vial q 4-6 hours prn shortness of breath ALBUTEROL SULFATE 64651465138 No Longer Active Esperanza Modi APRN Active TORSEMIDE 20 MG TABS 1 TAB PO BID TORSEMIDE 72697152674 No Longer Active Esperanza Modi JESSI Active PREDNISONE 20 MG TAB 2 tabs daily for 3 days, 1 tab daily for 3 days, 1/2 tab daily for 2 days PREDNISONE 03558452992 No Longer Active Austin Albarado MD Active LEVOFLOXACIN 500 MG ORAL TABS take 1 tab po qday LEVOFLOXACIN 14172795961 No Longer Active Austin Albarado MD Active PREDNISONE 20 MG TAB 2 tablets today, then 1 tablet by mouth days 2-5 PREDNISONE 62938455454 No Longer Active Austin Albarado MD Active AZITHROMYCIN 500 MG SOLR 1 po q day AZITHROMYCIN 01966921957 No Longer Active Austin Albarado MD Active KEFLEX 500 MG CAP 1 po TID x 7 days CEPHALEXIN 18633854521 No Longer Active Tristan Vaughn MD Active EQL VISION FORMULA TABS 1 TAB PO DAILY MULTIPLE VITAMINS-MINERALS 98331522912 No Longer Active Tristan Vaughn MD Active CHANTIX STARTING MONTH ELVIS 0.5 MG X 11 & 1 MG X 42 TABS 0.5mg daily for 3 days , then 0.5mg BID for 4 days, then 1mg BID VARENICLINE TARTRATE 80297965997 No Longer Active Tristan Vaughn MD Active LEVOTHYROXINE SODIUM 200 MCG TABS 1 TAB PO DAILY LEVOTHYROXINE SODIUM 31490728455 No Longer Active Tristan Vaughn MD Active LIOTHYRONINE SODIUM 50 MCG TABS take 1 tab po qday for hypothyroidism LIOTHYRONINE SODIUM 62278836866 No Longer Active Austin Albarado MD Active SYNTHROID 0.025 MG TAB 1 tablet by mouth daily LEVOTHYROXINE SODIUM 24247227670 No Longer Active Austin Albarado MD Active ARMOUR THYROID 120 MG TABS take 1 tab po qday for hypothyroidism THYROID 00193228816 Active Austin Albarado MD Active FLONASE 50 MCG/ACT SUSP 1 spray each nostril am and hs FLUTICASONE PROPIONATE Active Simona Galloway APRN Active ZITHROMAX 1 GM PACK DIRECTED AZITHROMYCIN 66749350133 No Longer Active Austin Albarado MD Active PREDNISONE 20 MG TAB 2 tabs daily for 3 days, 1 tab daily for 3 days, 1/2 tab daily for 2 days PREDNISONE 64582949560 No Longer Active Austin Albarado MD Active ZITHROMAX 250 MG TAB 2 po today, then 1 po q days 2-5 AZITHROMYCIN 73972791679 No Longer Active Austin Albarado MD Active NYSTATIN-TRIAMCINOLONE 336450-0.1 UNIT/GM-% OINT Apply to affected area TID NYSTATIN-TRIAMCINOLONE 35950412243 Active Austin Albarado MD Active ADVAIR DISKUS 500-50 MCG/DOSE AEPB ONE INH BID FLUTICASONE- SALMETEROL 83844257893 Active Austin Albarado MD Active ZITHROMAX 1 GM PACK DIRECTED ZITHROMAX 1 GM PACK 134147 AZITHROMYCIN Inactive SYNTHROID 0.025 MG TAB 1 tablet by mouth daily SYNTHROID 0.025 MG TAB 989639 LEVOTHYROXINE SODIUM Inactive LIOTHYRONINE SODIUM 50 MCG TABS take 1 tab po qday for hypothyroidism LIOTHYRONINE SODIUM 50 MCG TABS 434600 LIOTHYRONINE SODIUM Inactive LEVOTHYROXINE SODIUM 200 MCG TABS 1 TAB PO DAILY LEVOTHYROXINE SODIUM 200 MCG TABS 928664 LEVOTHYROXINE SODIUM Inactive CHANTIX STARTING MONTH ELVIS [...] po q day AZITHROMYCIN 500 MG SOLR 82704491830 AZITHROMYCIN Inactive PREDNISONE 20 MG TAB 2 tablets today, then 1 tablet by mouth days 2-5 PREDNISONE 20 MG TAB 694365 PREDNISONE Inactive TORSEMIDE 20 MG TABS 1 TAB PO BID TORSEMIDE 20 MG TABS 699971 TORSEMIDE Inactive ALBUTEROL SULFATE (2.5 MG/3ML) 0.083% NEBU nebulize 1 vial q 4-6 hours prn shortness of breath ALBUTEROL SULFATE (2.5 MG/3ML) 0.083% NEBU 906526 ALBUTEROL SULFATE Inactive LEVAQUIN 500 MG TAB 1 tablet by mouth daily LEVAQUIN 500 MG TAB 861683 LEVOFLOXACIN Inactive PREDNISONE 20 MG TAB 2 tabs daily for 4 days, 1 tab daily for 4 days, 1/2 tab daily for 4 days PREDNISONE 20 MG TAB 804736 PREDNISONE Inactive ZITHROMAX 1 GM ORAL PACK DIRECTED ZITHROMAX 1 GM ORAL PACK 509941 AZITHROMYCIN Inactive LEVAQUIN 500 MG TAB 1 tablet by mouth daily for 10 days. LEVAQUIN 500 MG TAB 804008 LEVOFLOXACIN Inactive PREDNISONE 20 MG ORAL TABS 3 TABS PO FOR 3 DAYS,THAN 2 TABS FOR 3 DAYS THAN, 1 TAB FOR 3 DAYS THAN, 1/2 TAB FOR 3 DAYS. PREDNISONE 20 MG ORAL TABS 390705 PREDNISONE Inactive PREDNISONE 20 MG ORAL TABS 3 daily for 3 days than, 2 tabs daily for 3 days than, 2 tabs daily for 3 days than, 1 tab daily for 3 days than 1/2 tab daily for 3 days. PREDNISONE 20 MG ORAL TABS 503196 PREDNISONE Inactive AMOXICILLIN 500 MG ORAL TABS Take one by mouth 3 times daily, morning, afternoon and evening.] AMOXICILLIN 500 MG ORAL TABS 824267 AMOXICILLIN Inactive LEVAQUIN 500 MG TAB 1 tablet by mouth daily LEVAQUIN 500 MG TAB 483762 LEVOFLOXACIN Inactive LEVAQUIN 500 MG TAB 1 tablet by mouth daily LEVAQUIN 500 MG TAB 953380 LEVOFLOXACIN Inactive PREDNISONE 20 MG ORAL TABS 3 tabs po for 3 days than,2 tabs po for 3 days,1 tab po for 3 days, 1/2 tab po for 3 days. PREDNISONE 20 MG ORAL TABS 828701 PREDNISONE Inactive IPRATROPIUM BROMIDE 0.02 % INH SOLN 1 q 6 hr PRN Dx: J44.1 12/29 IPRATROPIUM BROMIDE 0.02 % INH SOLN 604169 IPRATROPIUM BROMIDE Inactive ZITHROMAX 250 MG TAB 2 po today, then 1 po q days 2-5 ZITHROMAX 250 MG TAB 9733125 AZITHROMYCIN Inactive PREDNISONE 20 MG TAB 2 tabs daily for 3 days, 1 tab daily for 3 days, 1/2 tab daily for 2 days PREDNISONE 20 MG TAB 199161 PREDNISONE Inactive KEFLEX 500 MG CAP 1 po TID x 7 days KEFLEX 500 MG CAP 936880 CEPHALEXIN Inactive LEVOFLOXACIN 500 MG ORAL TABS take 1 tab po qday LEVOFLOXACIN 500 MG ORAL TABS 077815 LEVOFLOXACIN Inactive PREDNISONE 20 MG TAB 2 tabs daily for 3 days, 1 tab daily for 3 days, 1/2 tab daily for 2 days PREDNISONE 20 MG TAB 699562 PREDNISONE Inactive DOXYCYCLINE HYCLATE 100 MG CAP 1 cap by mouth twice daily DOXYCYCLINE HYCLATE 100 MG CAP 6613223 DOXYCYCLINE HYCLATE Inactive PREDNISONE 20 MG TAB take 3 tabs daily for 3 days, 2 tabs daily for 3 days, 1 tab daily for 3 days, 1/2 tab daily for 3 days PREDNISONE 20 MG TAB 625892 PREDNISONE Inactive PREDNISONE 20 MG TAB take 3 tabs daily for 3 days, 2 tabs daily for 3 days, 1 tab daily for 3 days, 1/2 tab daily for 3 days PREDNISONE 20 MG TAB 817425 PREDNISONE Inactive PREDNISONE 20 MG TAB take 3 tabs daily for 3 days, 2 tabs daily for 3 days, 1 tab daily for 3 days, 1/2 tab daily for 3 days PREDNISONE 20 MG TAB 656394 PREDNISONE Inactive ACYCLOVIR 400 MG TABS 1 pill three times daily ACYCLOVIR 400 MG TABS 19720518 ACYCLOVIR Inactive ACYCLOVIR 400 MG TABS 1 pill three times daily ACYCLOVIR 400 MG TABS 19720518 ACYCLOVIR Inactive KEFLEX 500 MG CAP 1 po BID x 7 days KEFLEX 500 MG CAP 118908 CEPHALEXIN Inactive KEFLEX 500 MG CAP 1 po BID x 7 days KEFLEX 500 MG CAP 123404 CEPHALEXIN Inactive ACYCLOVIR 400 MG TABS 1 [...] Peptide - Chemistry sodium, serum 140 mmol/L 879-041 1194/02/09 carbon dioxide, venous blood 39.2 mmol/L 21.0-32.0 [...] 0.00-1.00 Encounters Code Encounter Date Provider Facility CPT-91676 Level 4 Est. Patient 18:17:08 CDT Austin Albarado MD [facility] CPT-05715 Level 3 Est. Patient 16:07:19 CDT Simona Galloway APRN [facility] CPT-71570 Level 4 Est. Patient 13:31:03 CDT Austin Albarado MD [facility] CPT-81425 Level 4 Est. Patient 17:54:41 ACADEMIC ADVISOR Austin Albarado MD [facility] CPT-00543 Level 4 Est. Patient 16:11:14 ACADEMIC ADVISOR Austin Albarado MD [facility] CPT-03738 Level 4 Est. Patient 23:08:56 CDT Austin Albarado MD -[id number] Level 4 Est. Patient 13:27:28 CDT Garcia Stroud MD [facility] CPT-02933 Level 4 Est. Patient 10:51:20 CDT Austin Albarado MD [facility] CPT-34230 Level 4 Est. Patient 20:09:43 ACADEMIC ADVISOR Austin Albarado MD [facility] CPT-87305 Level 4 Est. Patient 21:00:28 CDT Austin Albarado MD [facility] CPT-77751 Level 4 Est. Patient 10:03:37 CDT Austin Albarado MD [facility] CPT-64433 Level 3 Est. Patient 10:50:28 ACADEMIC ADVISOR Austin Albarado MD [facility] CPT-80583 Level 4 Est. Patient 21:31:41 ACADEMIC ADVISOR Austin Albarado MD [facility] CPT-36795 Level 3 Est. Patient 16:22:54 ACADEMIC ADVISOR Jann Law DO [facility] CPT-94738 Level 3 Est. Patient 11:04:53 ACADEMIC ADVISOR Tristan Vaughn MD [facility] CPT-27071 Level 4 Est. Patient 09:50:59 CDT Austin Albarado MD [facility] CPT-13346 Level 4 Est. Patient 09:29:00 CDT Austin Albarado MD [facility] CPT-94329 Level 4 Est. Patient 14:23:07 CDT Austin Albarado MD [facility] CPT-79847 Level 4 Est. Patient 14:27:26 CDT Austin Albarado MD [facility] CPT-72923 Level 4 Est. Patient 12:51:43 ACADEMIC ADVISOR Austin Albarado MD [facility] CPT-53015 Level 3 New Patient 14:17:38 ACADEMIC ADVISOR Austin Albarado MD [facility] CPT-61401 Level 3 New Patient 11:28:18 ACADEMIC ADVISOR Austin Albarado MD [facility] Procedures Code Procedure Name Date Entry Date Standard Description CPT-G0439 Subsequent Annual Wellness Exam 08:13:24 CDT CPT-TCMM Transitional Care Mgmt-Moderate 14:53:36 ACADEMIC ADVISOR CPT-33915 No Charge Offi Visit 10:19:33 ACADEMIC ADVISOR CPT-76853 Chest 2V Frontal and Lat - XRAY USE ONLY 15:01:41 ACADEMIC ADVISOR CPT-16676 First Vx - Ix admin for Medicare patients 16:00:49 CDT CPT-88211 Fluzone High-Dose Intramuscular Suspension 16:00:49 CDT CPT-G0009 Administration of Pneumococcal Vaccine 13:25:27 CDT CPT-63157 Prevnar 13 Intramuscular Suspension 13:25:27 CDT 09/26 CPT-G0438 Initial Annual Wellness Exam 11:28:26 CDT CPT-15280 Chest 2V Frontal and Lat 15:00:00 ACADEMIC ADVISOR CPT-29987 Breathing Tx 14:49:25 ACADEMIC ADVISOR CPT-36501 Fluzone High Dose 15:08:41 ACADEMIC ADVISOR CPT-45780 Immunization Single Admin 15:08:41 ACADEMIC ADVISOR CPT-77699 Fluzone High Dose 17:31:19 CDT CPT-27493 Administration single or combination vaccine inc oral 17 :31:19 CDT CPT-22777 Venipuncture Draw Fee 11:03:05 CDT CPT-TCMM Transitional Care Mgmt-Moderate 16:32:35 CDT CPT-19663 Chest 2V Frontal and Lat 11:51:09 CDT CPT-G0008 Administration of Influenza Virus Vaccine 15:09:08 CDT CPT-64576 Fluzone High-Dose Intramuscular Suspension 15:09:08 CDT CPT-68195 Administration single or combination vaccine inc oral 17 :07:02 ACADEMIC ADVISOR CPT-25408 Influenza High Dose age 65+ 17:07:02 ACADEMIC ADVISOR
--- OUTSIDE RECORDS SUMMARY | 2017-02-27 22:36 | XMS REPORT | Clinical Summary ---
Author Author Admin, LEE Organization [facility] Address Unknown Phone Unavailable Allergies, Adverse [...] atherosclerosis of unspecified type of vessel, [place] or graft U R I ICD-465.9 Inactive Austin Albarado MD 06/13 Bronchitis-Acute ICD-466.0 Inactive Austin Albarado MD Medication List Medication Instructions Start Date Stop Date Generic Name NDC Status Provider Patient Instruction FUROSEMIDE 20 MG TABS 2 today and tomorrow and then 1 daily as needed for swelling FUROSEMIDE [id number] Active Garcia Stroud MD Active AMOXICILLIN 500 MG ORAL TABS Take one by mouth 3 times daily, morning, afternoon and evening.] AMOXICILLIN 69315381336 No Longer Active Garcia Stroud MD Active PREDNISONE 20 MG ORAL TABS 3 daily for 3 days than, 2 tabs daily for 3 days than, 2 tabs daily for 3 days than, 1 tab daily for 3 days than 1/2 tab daily for 3 days. PREDNISONE 71981361205 No Longer Active Tracie Arrington APRN Active FLUTICASONE PROPIONATE 50 MCG/ACT SUSP 1 to 2 sprays each nostril daily 08/21 FLUTICASONE PROPIONATE 26493160847 Active Simona Galloway APRN Active PREDNISONE 10 MG TAB take 1 tab po qday for severe COPD PREDNISONE 92606593789 Active Austin Albarado MD Active PREDNISONE 20 MG ORAL TABS 3 TABS PO FOR 3 DAYS,THAN 2 TABS FOR 3 DAYS THAN, 1 TAB FOR 3 DAYS THAN, 1/2 TAB FOR 3 DAYS. PREDNISONE 27067607650 No Longer Active Austin Albarado MD Active LEVAQUIN 500 MG TAB 1 tablet by mouth daily for 10 days. LEVOFLOXACIN 91273164354 No Longer Active Austin Albarado MD Active PREDNISONE 20 MG TAB take 3 tabs daily for 3 days, 2 tabs daily for 3 days, 1 tab daily for 3 days, 1/2 tab daily for 3 days PREDNISONE 90737084340 No Longer Active Simona Galloway APRN Active ZITHROMAX 1 GM ORAL PACK DIRECTED AZITHROMYCIN 24519104917 No Longer Active Simona Galloway APRN Active PREDNISONE 20 MG TAB 2 tabs daily for 4 days, 1 tab daily for 4 days, 1/2 tab daily for 4 days PREDNISONE 32602345085 No Longer Active Austin Albarado MD Active LEVAQUIN 500 MG TAB 1 tablet by mouth daily LEVOFLOXACIN 58056433610 No Longer Active Austin Albarado MD Active PREDNISONE 20 MG TAB take 3 tabs daily for 3 days, 2 tabs daily for 3 days, 1 tab daily for 3 days, 1/2 tab daily for 3 days PREDNISONE 55987412634 No Longer Active Austin Albarado MD Active DOXYCYCLINE HYCLATE 100 MG CAP 1 cap by mouth twice daily DOXYCYCLINE HYCLATE 67108486257 No Longer Active Jikatyaina Ly BOWEN Active ALBUTEROL SULFATE (2.5 MG/3ML) 0.083% NEBU nebulize 1 vial q 4-6 hours prn shortness of breath ALBUTEROL SULFATE 03323807731 No Longer Active 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 DEPUTY K 9 Active TORSEMIDE 20 MG TABS 1 TAB PO BID TORSEMIDE 04517636237 No Longer Active Jillina Frashonnal DEPUTY K 9 Active PREDNISONE 20 MG TAB 2 tabs daily for 3 days, 1 tab daily for 3 days, 1/2 tab daily for 2 days PREDNISONE 67995155602 No Longer Active Austin Albarado MD Active LEVOFLOXACIN 500 MG ORAL TABS take 1 tab po qday LEVOFLOXACIN 75570917379 No Longer Active Austin Albarado MD Active PREDNISONE 20 MG TAB 2 tablets today, then 1 tablet by mouth days 2-5 PREDNISONE 38709203079 No Longer Active Austin Albarado MD Active AZITHROMYCIN 500 MG SOLR 1 po q day AZITHROMYCIN 22984552693 No Longer Active Austin Albarado MD Active KEFLEX 500 MG CAP 1 po TID x 7 days CEPHALEXIN 25475599638 No Longer Active Tristan Vaughn MD Active EQL VISION FORMULA TABS 1 TAB PO DAILY MULTIPLE VITAMINS-MINERALS 78026548259 No Longer Active Tristan Vaughn MD Active CHANTIX STARTING MONTH ELVIS 0.5 MG X 11 & 1 MG X 42 TABS 0.5mg daily for 3 days , then 0.5mg BID for 4 days, then 1mg BID VARENICLINE TARTRATE 94745050110 No Longer Active Tristan Vaughn MD Active LEVOTHYROXINE SODIUM 200 MCG TABS 1 TAB PO DAILY LEVOTHYROXINE SODIUM 09505098664 No Longer Active Tristan Vaughn MD Active LIOTHYRONINE SODIUM 50 MCG TABS take 1 tab po qday for hypothyroidism LIOTHYRONINE SODIUM 90381964201 No Longer Active Austin Albarado MD Active SYNTHROID 0.025 MG TAB 1 tablet by mouth daily LEVOTHYROXINE SODIUM 93762121166 No Longer Active Austin Albarado MD Active ARMOUR THYROID 120 MG TABS take 1 tab po qday for hypothyroidism THYROID 52206718952 Active Austin Albarado MD Active FLONASE 50 MCG/ACT SUSP 1 spray each nostril am and hs FLUTICASONE PROPIONATE Active Simona Nilesh DEPUTY K 9 Active ZITHROMAX 1 GM PACK DIRECTED AZITHROMYCIN 74268610442 No Longer Active Austin Albarado MD Active PREDNISONE 20 MG TAB 2 tabs daily for 3 days, 1 tab daily for 3 days, 1/2 tab daily for 2 days PREDNISONE 23994320370 No Longer Active Austin Albarado MD Active ZITHROMAX 250 MG TAB 2 po today, then 1 po q days 2-5 AZITHROMYCIN 53203006654 No Longer Active Austin Albarado MD Active NYSTATIN-TRIAMCINOLONE 885764-0.1 UNIT/GM-% OINT Apply to affected area TID NYSTATIN-TRIAMCINOLONE 20204699484 Active Austin Albarado MD Active IPRATROPIUM-ALBUTEROL 0.5-2.5 (3) MG/3ML SOLN 1 VIAL NEB Q 6 HRS PRN IPRATROPIUM-ALBUTEROL 60059338658 Active Austin Albarado MD Active PROAIR HFA 108 (90 BASE) MCG/ACT AERS take 1-2 puffs q4hrs prn cough/ SOB ALBUTEROL SULFATE 61202246787 Active Austin Albarado MD Active ADVAIR DISKUS 500-50 MCG/DOSE AEPB ONE INH BID FLUTICASONE- SALMETEROL 25074455408 Active Austin Albarado MD Active ZITHROMAX 1 GM PACK DIRECTED ZITHROMAX 1 GM PACK 424715 AZITHROMYCIN Inactive SYNTHROID 0.025 MG TAB 1 tablet by mouth daily SYNTHROID 0.025 MG TAB 295492 LEVOTHYROXINE SODIUM Inactive LIOTHYRONINE SODIUM 50 MCG TABS take 1 tab po qday for hypothyroidism LIOTHYRONINE SODIUM 50 MCG TABS 645070 LIOTHYRONINE SODIUM Inactive LEVOTHYROXINE SODIUM 200 MCG TABS 1 TAB PO DAILY LEVOTHYROXINE SODIUM 200 MCG TABS 620100 LEVOTHYROXINE SODIUM Inactive CHANTIX STARTING MONTH ELVIS [...] po q day AZITHROMYCIN 500 MG SOLR 71485906509 AZITHROMYCIN Inactive PREDNISONE 20 MG TAB 2 tablets today, then 1 tablet by mouth days 2-5 PREDNISONE 20 MG TAB 491915 PREDNISONE Inactive TORSEMIDE 20 MG TABS 1 TAB PO BID TORSEMIDE 20 MG TABS 575081 TORSEMIDE Inactive ALBUTEROL SULFATE (2.5 MG/3ML) 0.083% NEBU nebulize 1 vial q 4-6 hours prn shortness of breath ALBUTEROL SULFATE (2.5 MG/3ML) 0.083% NEBU 555187 ALBUTEROL SULFATE Inactive LEVAQUIN 500 MG TAB 1 tablet by mouth daily LEVAQUIN 500 MG TAB 483266 LEVOFLOXACIN Inactive PREDNISONE 20 MG TAB 2 tabs daily for 4 days, 1 tab daily for 4 days, 1/2 tab daily for 4 days PREDNISONE 20 MG TAB 801229 PREDNISONE Inactive ZITHROMAX 1 GM ORAL PACK DIRECTED ZITHROMAX 1 GM ORAL PACK 473954 AZITHROMYCIN Inactive LEVAQUIN 500 MG TAB 1 tablet by mouth daily for 10 days. LEVAQUIN 500 MG TAB 422938 LEVOFLOXACIN Inactive PREDNISONE 20 MG ORAL TABS 3 TABS PO FOR 3 DAYS,THAN 2 TABS FOR 3 DAYS THAN, 1 TAB FOR 3 DAYS THAN, 1/2 TAB FOR 3 DAYS. PREDNISONE 20 MG ORAL TABS 610587 PREDNISONE Inactive PREDNISONE 20 MG ORAL TABS 3 daily for 3 days than, 2 tabs daily for 3 days than, 2 tabs daily for 3 days than, 1 tab daily for 3 days than 1/2 tab daily for 3 days. PREDNISONE 20 MG ORAL TABS 510909 PREDNISONE Inactive AMOXICILLIN 500 MG ORAL TABS Take one by mouth 3 times daily, morning, afternoon and evening.] AMOXICILLIN 500 MG ORAL TABS 309086 AMOXICILLIN Inactive ZITHROMAX 250 MG TAB 2 po today, then 1 po q days 2-5 ZITHROMAX 250 MG TAB 5700509 AZITHROMYCIN Inactive PREDNISONE 20 MG TAB 2 tabs daily for 3 days, 1 tab daily for 3 days, 1/2 tab daily for 2 days PREDNISONE 20 MG TAB 197987 PREDNISONE Inactive KEFLEX 500 MG CAP 1 po TID x 7 days KEFLEX 500 MG CAP 846519 CEPHALEXIN Inactive LEVOFLOXACIN 500 MG ORAL TABS take 1 tab po qday LEVOFLOXACIN 500 MG ORAL TABS 386835 LEVOFLOXACIN Inactive PREDNISONE 20 MG TAB 2 tabs daily for 3 days, 1 tab daily for 3 days, 1/2 tab daily for 2 days PREDNISONE 20 MG TAB 610953 PREDNISONE Inactive DOXYCYCLINE HYCLATE 100 MG CAP 1 cap by mouth twice daily DOXYCYCLINE HYCLATE 100 MG CAP 4502649 DOXYCYCLINE HYCLATE Inactive PREDNISONE 20 MG TAB take 3 tabs daily for 3 days, 2 tabs daily for 3 days, 1 tab daily for 3 days, 1/2 tab daily for 3 days PREDNISONE 20 MG TAB 077662 PREDNISONE Inactive PREDNISONE 20 MG TAB take 3 tabs daily for 3 days, 2 tabs daily for 3 days, 1 tab daily for 3 days, 1/2 tab daily for 3 days PREDNISONE 20 MG TAB 834376 PREDNISONE Inactive Advance Directives Directive Description Start Date PERMISSION TO SHARE DISCUSSED WITH PATIENT -- NO DECISION MADE Immunizations Vaccine Administration Date Value Standard Description pneumococcal immunization administered Pneumovax 23 [CVX33] pneumococcal polysaccharide vaccine, 23 valent Vital Signs Date Name Value Unit Range Description blood pressure, diastolic - 8462-4 72 mm[Hg] BP frenandes blood pressure, systolic - 8480-6 137 mm[Hg] [...] ... - Chemistry cholesterol, serum 136 mg/dL [phone]/10/06 triglyceride, serum, fasting 30 mg/dL 30-200 HDL [...] 0.50 mg/dL 0.00-1.00 cholesterol, serum 189 mg/dL 924-277 3830/04/06 triglyceride, serum, fasting 117 mg/dL 30-200 HDL cholesterol, serum 70 mg/dL 32-96 LDL cholesterol, serum 96 mg/dL 0-130 chloride, serum 100 mmol/L 98-107 potassium, serum 4.9 mmol/L 3.5-5.2 carbon dioxide, venous blood 36.3 mmol/L 21.0-32.0 sodium, serum 140 mmol/L 914-137 5319/04/06 TSH 43.52 m[iU]/mL 0.36-3.74 Lab Report: Thyroid [...] [phone] Encounters Code Encounter Date Provider Facility CPT-94216 Level 4 Est. Patient 13:27:28 CDT Garcia Stroud MD [facility] CPT-38906 Level 4 Est. Patient 10:51:20 CDT Austin Albarado MD [facility] CPT-68580 Level 4 Est. 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 Patient 21:00:28 CDT Austin Albarado MD [facility] CPT-41780 Level 4 Est. Patient 10:03:37 CDT Austin Albarado MD [facility] CPT-09957 Level 3 Est. Patient 10:50:28 SENIOR [employer] J[employer] DEVELOPER Austin Albarado MD [facility] CPT-61572 Level 4 Est. Patient 21:31:41 SENIOR [employer] J[employer] DEVELOPER Austin Albarado MD [facility] CPT-56247 Level 3 Est. Patient 16:22:54 SENIOR [employer] J[employer] DEVELOPER Jann Law DO [facility] CPT-48593 Level 3 Est. Patient 11:04:53 SENIOR [employer] J[employer] DEVELOPER Tristan Vaughn MD [facility] CPT-53454 Level 4 Est. Patient 09:50:59 CDT Austin Albarado MD [facility] CPT-43338 Level 4 Est. Patient 09:29:00 CDT Austin Albarado MD [facility] CPT-48718 Level 4 Est. Patient 14:23:07 CDT Austin Albarado MD [facility] CPT-47881 Level 4 Est. Patient 14:27:26 CDT Austin Albarado MD [facility] CPT-68235 Level 4 Est. Patient 12:51:43 SENIOR [employer] J[employer] DEVELOPER Austin Albarado MD [facility] CPT-03867 Level 3 New Patient 14:17:38 SENIOR [employer] J[employer] DEVELOPER Austin Albarado MD [facility] CPT-80225 Level 3 New Patient 11:28:18 SENIOR J[employer] J[employer] DEVELOPER Austin Albarado MD [facility] Procedures Code Procedure Name Date Entry Date Standard Description CPT-G0009 Administration of Pneumococcal Vaccine 13:25:27 CDT CPT-83435 Prevnar 13 Intramuscular Suspension 13:25:27 CDT 09/26 CPT-G0438 Initial Annual Wellness Exam 11:28:26 CDT CPT-69542 Chest 2V Frontal and Lat 15:00:00 [employer]IOR [employer] DEVELOPER CPT-40632 Breathing Tx 14:49:25 S[employer]IOR [employer] J[employer]EE DEVELOPER CPT-88277 Fluzone High Dose 15:08:41 S[employer]IOR [employer] DEVELOPER CPT-13176 Immunization Single Admin 15:08:41 SENIOR [employer] J[employer] DEVELOPER CPT-45440 Fluzone High Dose 17:31:19 CDT CPT-19453 Administration single or combination vaccine inc oral 17 :31:19 CDT CPT-45762 Venipuncture Draw Fee 11:03:05 CDT CPT-TCMM Transitional Care Mgmt-Moderate 16:32:35 CDT CPT-14840 Chest 2V Frontal and Lat 11:51:09 CDT CPT-G0008 Administration of Influenza Virus Vaccine 15:09:08 CDT CPT-06313 Fluzone High-Dose Intramuscular Suspension 15:09:08 CDT CPT-49798 Administration single or combination vaccine inc oral 17 :07:02 SENIOR J[employer] J[employer]EE DEVELOPER CPT-85922 Influenza High Dose age 65+ 17:07:02 SENIOR JAVA J2EE DEVELOPER
--- OUTSIDE RECORDS SUMMARY | 2017-02-27 22:36 | XMS REPORT | Clinical Summary ---
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 Tracie Arrington ORDER TRACER Chronic airway obstruction, not elsewhere classified Family history of myocardial infarction V17.3 Active Tracie Arrington ORDER TRACER Family history of ischemic heart disease CAD 414.00 Active Tracie Arrington ORDER TRACER Coronary atherosclerosis of unspecified type of vessel, [place] or graft Peripheral edema 782.3 Active Austin [...] 1 po BID x 7 days CEPHALEXIN 82136248739 No Longer Active Mica Sneed Active KEFLEX 500 MG CAP 1 po BID x 7 days CEPHALEXIN 84963621351 No Longer Active Simona Galloway APRN Active ACYCLOVIR 400 MG TABS 1 pill three times daily ACYCLOVIR 44244435759 No Longer Active Austin Albarado MD Active ACYCLOVIR 400 MG TABS 1 pill three times daily ACYCLOVIR 28893174621 No Longer Active Austin Albarado MD Active ALBUTEROL SULFATE 0.083 % NEBU SOLN one vial per nebulizer every 4 hours as needed Dx. J44.1 ALBUTEROL SULFATE 16134345380 Active Austin Albarado MD Active IPRATROPIUM BROMIDE 0.02 % INH SOLN 1 q 6 hr PRN Dx: J44.1 IPRATROPIUM BROMIDE 42647631586 Active Nella José LPN Active PROAIR HFA 108 (90 BASE) MCG/ACT AERS take 1-2 puffs q 4-6 hrs prn cough/ SOB ALBUTEROL SULFATE 61350696352 Active Nella José LPN Active IPRATROPIUM-ALBUTEROL 0.5-2.5 (3) MG/3ML SOLN 1 VIAL NEB Q 4-6 HRS PRN 04/18 IPRATROPIUM-ALBUTEROL 02118065382 No Longer Active Austin Albarado MD Active ATIVAN 0.5 MG TAB 1 po QD PRN Anxiety LORAZEPAM 78304571480 Active Austin Albarado MD Active PREDNISONE 20 MG ORAL TABS 3 tabs po for 3 days than,2 tabs po for 3 days,1 tab po for 3 days, 1/2 tab po for 3 days. PREDNISONE 80612081831 No Longer Active Simona Galloway APRN Active LEVAQUIN 500 MG TAB 1 tablet by mouth daily LEVOFLOXACIN 89928467432 No Longer Active Simona Galloway APRN Active PREDNISONE 20 MG TAB take 3 tabs daily for 3 days, 2 tabs daily for 3 days, 1 tab daily for 3 days, 1/2 tab daily for 3 days PREDNISONE 83586994214 No Longer Active Austin Albarado MD Active LEVAQUIN 500 MG TAB 1 tablet by mouth daily LEVOFLOXACIN 94407059998 No Longer Active Madhavi Fiore Active FUROSEMIDE 20 MG TABS take 1 tab po BID for swelling FUROSEMIDE 41588001510 Active Austin Albarado MD Active AMOXICILLIN 500 MG ORAL TABS Take one by mouth 3 times daily, morning, afternoon and evening.] AMOXICILLIN 81627754889 No Longer Active Garcia Stroud MD Active PREDNISONE 20 MG ORAL TABS 3 daily for 3 days than, 2 tabs daily for 3 days than, 2 tabs daily for 3 days than, 1 tab daily for 3 days than 1/2 tab daily for 3 days. PREDNISONE 43056793955 No Longer Active Tracie Arrington APRN Active FLUTICASONE PROPIONATE 50 MCG/ACT SUSP 1 to 2 sprays each nostril daily 08/21 FLUTICASONE PROPIONATE 08590108674 Active Austin Albarado MD Active PREDNISONE 10 MG TAB take 1 tab po qday for severe COPD PREDNISONE 27247456231 Active Austin Albarado MD Active PREDNISONE 20 MG ORAL TABS 3 TABS PO FOR 3 DAYS,THAN 2 TABS FOR 3 DAYS THAN, 1 TAB FOR 3 DAYS THAN, 1/2 TAB FOR 3 DAYS. PREDNISONE 22070860658 No Longer Active Austin Albarado MD Active LEVAQUIN 500 MG TAB 1 tablet by mouth daily for 10 days. LEVOFLOXACIN 71520655295 No Longer Active Austin Albarado MD Active PREDNISONE 20 MG TAB take 3 tabs daily for 3 days, 2 tabs daily for 3 days, 1 tab daily for 3 days, 1/2 tab daily for 3 days PREDNISONE 87456737657 No Longer Active Simona Galloway APRN Active ZITHROMAX 1 GM ORAL PACK DIRECTED AZITHROMYCIN 39128919348 No Longer Active Simona Galloway APRN Active PREDNISONE 20 MG TAB 2 tabs daily for 4 days, 1 tab daily for 4 days, 1/2 tab daily for 4 days PREDNISONE 07946993188 No Longer Active Austin Albarado MD Active LEVAQUIN 500 MG TAB 1 tablet by mouth daily LEVOFLOXACIN 99380741722 No Longer Active Austin Albarado MD Active PREDNISONE 20 MG TAB take 3 tabs daily for 3 days, 2 tabs daily for 3 days, 1 tab daily for 3 days, 1/2 tab daily for 3 days PREDNISONE 09989944006 No Longer Active Austin Albarado MD Active DOXYCYCLINE HYCLATE 100 MG CAP 1 cap by mouth twice daily DOXYCYCLINE HYCLATE 47987160045 No Longer Active 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 ORDER TRACER Active ALBUTEROL SULFATE (2.5 MG/3ML) 0.083% NEBU nebulize 1 vial q 4-6 hours prn shortness of breath ALBUTEROL SULFATE 29673277732 No Longer Active 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 ORDER TRACER Active TORSEMIDE 20 MG TABS 1 TAB PO BID TORSEMIDE 01717421671 No Longer Active 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 ORDER TRACER Active PREDNISONE 20 MG TAB 2 tabs daily for 3 days, 1 tab daily for 3 days, 1/2 tab daily for 2 days PREDNISONE 53582165353 No Longer Active Austin Albarado MD Active LEVOFLOXACIN 500 MG ORAL TABS take 1 tab po qday LEVOFLOXACIN 12699111148 No Longer Active Austin Albarado MD Active PREDNISONE 20 MG TAB 2 tablets today, then 1 tablet by mouth days 2-5 PREDNISONE 18136019458 No Longer Active Austin Albarado MD Active AZITHROMYCIN 500 MG SOLR 1 po q day AZITHROMYCIN 32430916494 No Longer Active Austin Albarado MD Active KEFLEX 500 MG CAP 1 po TID x 7 days CEPHALEXIN 33901481141 No Longer Active Tristan Vaughn MD Active EQL VISION FORMULA TABS 1 TAB PO DAILY MULTIPLE VITAMINS-MINERALS 24269392002 No Longer Active Tristan Vaughn MD Active CHANTIX STARTING MONTH ELVIS 0.5 MG X 11 & 1 MG X 42 TABS 0.5mg daily for 3 days , then 0.5mg BID for 4 days, then 1mg BID VARENICLINE TARTRATE 54071834743 No Longer Active Tristan Vaughn MD Active LEVOTHYROXINE SODIUM 200 MCG TABS 1 TAB PO DAILY LEVOTHYROXINE SODIUM 97403772357 No Longer Active Tristan Vaughn MD Active LIOTHYRONINE SODIUM 50 MCG TABS take 1 tab po qday for hypothyroidism LIOTHYRONINE SODIUM 65724997160 No Longer Active Austin Albarado MD Active SYNTHROID 0.025 MG TAB 1 tablet by mouth daily LEVOTHYROXINE SODIUM 96848181073 No Longer Active Austin Albarado MD Active ARMOUR THYROID 120 MG TABS take 1 tab po qday for hypothyroidism THYROID 72054676706 Active Austin Albarado MD Active FLONASE 50 MCG/ACT SUSP 1 spray each nostril am and hs FLUTICASONE PROPIONATE Active Simona Galloway APRN Active ZITHROMAX 1 GM PACK DIRECTED AZITHROMYCIN 59731177361 No Longer Active Austin Albarado MD Active PREDNISONE 20 MG TAB 2 tabs daily for 3 days, 1 tab daily for 3 days, 1/2 tab daily for 2 days PREDNISONE 13239451831 No Longer Active Austin Albarado MD Active ZITHROMAX 250 MG TAB 2 po today, then 1 po q days 2-5 AZITHROMYCIN 04518299122 No Longer Active Austin Albarado MD Active NYSTATIN-TRIAMCINOLONE 948116-1.1 UNIT/GM-% OINT Apply to affected area TID NYSTATIN-TRIAMCINOLONE 92781193580 Active Austin Albarado MD Active ADVAIR DISKUS 500-50 MCG/DOSE AEPB ONE INH BID FLUTICASONE- SALMETEROL 74696035818 Active Austin Albarado MD Active ZITHROMAX 1 GM PACK DIRECTED ZITHROMAX 1 GM PACK 254193 AZITHROMYCIN Inactive SYNTHROID 0.025 MG TAB 1 tablet by mouth daily SYNTHROID 0.025 MG TAB 296187 LEVOTHYROXINE SODIUM Inactive LIOTHYRONINE SODIUM 50 MCG TABS take 1 tab po qday for hypothyroidism LIOTHYRONINE SODIUM 50 MCG TABS 014483 LIOTHYRONINE SODIUM Inactive LEVOTHYROXINE SODIUM 200 MCG TABS 1 TAB PO DAILY LEVOTHYROXINE SODIUM 200 MCG TABS 277540 LEVOTHYROXINE SODIUM Inactive CHANTIX STARTING MONTH ELVIS [...] po q day AZITHROMYCIN 500 MG SOLR 07179766654 AZITHROMYCIN Inactive PREDNISONE 20 MG TAB 2 tablets today, then 1 tablet by mouth days 2-5 PREDNISONE 20 MG TAB 329811 PREDNISONE Inactive TORSEMIDE 20 MG TABS 1 TAB PO BID TORSEMIDE 20 MG TABS 689945 TORSEMIDE Inactive ALBUTEROL SULFATE (2.5 MG/3ML) 0.083% NEBU nebulize 1 vial q 4-6 hours prn shortness of breath ALBUTEROL SULFATE (2.5 MG/3ML) 0.083% NEBU 562187 ALBUTEROL SULFATE Inactive LEVAQUIN 500 MG TAB 1 tablet by mouth daily LEVAQUIN 500 MG TAB 140751 LEVOFLOXACIN Inactive PREDNISONE 20 MG TAB 2 tabs daily for 4 days, 1 tab daily for 4 days, 1/2 tab daily for 4 days PREDNISONE 20 MG TAB 626812 PREDNISONE Inactive ZITHROMAX 1 GM ORAL PACK DIRECTED ZITHROMAX 1 GM ORAL PACK 189072 AZITHROMYCIN Inactive LEVAQUIN 500 MG TAB 1 tablet by mouth daily for 10 days. LEVAQUIN 500 MG TAB 585377 LEVOFLOXACIN Inactive PREDNISONE 20 MG ORAL TABS 3 TABS PO FOR 3 DAYS,THAN 2 TABS FOR 3 DAYS THAN, 1 TAB FOR 3 DAYS THAN, 1/2 TAB FOR 3 DAYS. PREDNISONE 20 MG ORAL TABS 356331 PREDNISONE Inactive PREDNISONE 20 MG ORAL TABS 3 daily for 3 days than, 2 tabs daily for 3 days than, 2 tabs daily for 3 days than, 1 tab daily for 3 days than 1/2 tab daily for 3 days. PREDNISONE 20 MG ORAL TABS 700125 PREDNISONE Inactive AMOXICILLIN 500 MG ORAL TABS Take one by mouth 3 times daily, morning, afternoon and evening.] AMOXICILLIN 500 MG ORAL TABS 276322 AMOXICILLIN Inactive LEVAQUIN 500 MG TAB 1 tablet by mouth daily LEVAQUIN 500 MG TAB 270770 LEVOFLOXACIN Inactive LEVAQUIN 500 MG TAB 1 tablet by mouth daily LEVAQUIN 500 MG TAB 276702 LEVOFLOXACIN Inactive PREDNISONE 20 MG ORAL TABS 3 tabs po for 3 days than,2 tabs po for 3 days,1 tab po for 3 days, 1/2 tab po for 3 days. PREDNISONE 20 MG ORAL TABS 119195 PREDNISONE Inactive ZITHROMAX 250 MG TAB 2 po today, then 1 po q days 2-5 ZITHROMAX 250 MG TAB 0304614 AZITHROMYCIN Inactive PREDNISONE 20 MG TAB 2 tabs daily for 3 days, 1 tab daily for 3 days, 1/2 tab daily for 2 days PREDNISONE 20 MG TAB 484392 PREDNISONE Inactive KEFLEX 500 MG CAP 1 po TID x 7 days KEFLEX 500 MG CAP 823431 CEPHALEXIN Inactive LEVOFLOXACIN 500 MG ORAL TABS take 1 tab po qday LEVOFLOXACIN 500 MG ORAL TABS 723920 LEVOFLOXACIN Inactive PREDNISONE 20 MG TAB 2 tabs daily for 3 days, 1 tab daily for 3 days, 1/2 tab daily for 2 days PREDNISONE 20 MG TAB 844292 PREDNISONE Inactive DOXYCYCLINE HYCLATE 100 MG CAP 1 cap by mouth twice daily DOXYCYCLINE HYCLATE 100 MG CAP 3063832 DOXYCYCLINE HYCLATE Inactive PREDNISONE 20 MG TAB take 3 tabs daily for 3 days, 2 tabs daily for 3 days, 1 tab daily for 3 days, 1/2 tab daily for 3 days PREDNISONE 20 MG TAB 218043 PREDNISONE Inactive PREDNISONE 20 MG TAB take 3 tabs daily for 3 days, 2 tabs daily for 3 days, 1 tab daily for 3 days, 1/2 tab daily for 3 days PREDNISONE 20 MG TAB 643900 PREDNISONE Inactive PREDNISONE 20 MG TAB take 3 tabs daily for 3 days, 2 tabs daily for 3 days, 1 tab daily for 3 days, 1/2 tab daily for 3 days PREDNISONE 20 MG TAB 368698 PREDNISONE Inactive ACYCLOVIR 400 MG TABS 1 pill three times daily ACYCLOVIR 400 MG TABS 071507 ACYCLOVIR Inactive ACYCLOVIR 400 MG TABS 1 pill three times daily ACYCLOVIR 400 MG TABS 560335 ACYCLOVIR Inactive KEFLEX 500 MG CAP 1 po BID x 7 days KEFLEX 500 MG CAP 671339 CEPHALEXIN Inactive KEFLEX 500 MG CAP 1 po BID x 7 days KEFLEX 500 MG CAP 631016 CEPHALEXIN Inactive Advance Directives Directive Description Start [...] Peptide - Chemistry sodium, serum 140 mmol/L 109-529 5840/02/09 carbon dioxide, venous blood 39.2 mmol/L 21.0-32.0 [...] 0.00-1.00 Encounters Code Encounter Date Provider Facility CPT-24400 Level 3 Est. Patient 16:07:19 CDT Simona Galloway APRN [facility] CPT-85925 Level 4 Est. Patient 13:31:03 CDT Austin Albarado MD [facility] CPT-71378 Level 4 Est. Patient 17:54:41 PUMP OILER Austin Albarado MD [facility] CPT-38555 Level 4 Est. Patient 16:11:14 PUMP OILER Austin Albarado MD [facility] CPT-99182 Level 4 Est. Patient 23:08:56 CDT Austin Albarado MD [facility] CPT-40245 Level 4 Est. Patient 13:27:28 CDT Garcia Stroud MD [facility] CPT-50462 Level 4 Est. Patient 10:51:20 CDT Austin Albarado MD -15656 Level 4 Est. Patient 20:09:43 PUMP OILER Austin Albarado MD [facility] CPT-91438 Level 4 Est. Patient 21:00:28 CDT Austin Albarado MD [facility] CPT-31489 Level 4 Est. Patient 10:03:37 CDT Austin Albarado MD [facility] CPT-41304 Level 3 Est. Patient 10:50:28 PUMP OILER Austin Albarado MD [facility]-15918 Level 4 Est. Patient 21:31:41 PUMP OILER Austin Albarado MD [facility] CPT-55839 Level 3 Est. Patient 16:22:54 PUMP OILER Jann Law DO [facility] CPT-03271 Level 3 Est. Patient 11:04:53 PUMP OILER Tristan Vaughn MD [facility] CPT-92307 Level 4 Est. Patient 09:50:59 CDT Austin Albarado MD [facility] CPT-21891 Level 4 Est. Patient 09:29:00 CDT Austin Albarado MD -[id number] Level 4 Est. Patient 14:23:07 CDT Austin Albarado MD [facility] CPT-34731 Level 4 Est. Patient 14:27:26 CDT Austin Albarado MD [facility] CPT-20269 Level 4 Est. Patient 12:51:43 PUMP OILER Austin Albarado MD [facility] CPT-11775 Level 3 New Patient 14:17:38 PUMP OILER Austin Albarado MD [facility] CPT-50546 Level 3 New Patient 11:28:18 PUMP OILER Austin Albarado MD [facility] Procedures Code Procedure Name Date Entry Date Standard Description CPT-G0439 Subsequent Annual Wellness Exam 08:13:24 CDT CPT-TCMM Transitional Care Mgmt-Moderate 14:53:36 PUMP OILER CPT-48574 No Charge Offi Visit 10:19:33 PUMP OILER CPT-09521 Chest 2V Frontal and Lat - XRAY USE ONLY 15:01:41 PUMP OILER CPT-59151 First Vx - Ix admin for Medicare patients 16:00:49 CDT CPT-11026 Fluzone High-Dose Intramuscular Suspension 16:00:49 CDT CPT-G0009 Administration of Pneumococcal Vaccine 13:25:27 CDT CPT-58203 Prevnar 13 Intramuscular Suspension 13:25:27 CDT 09/26 CPT-G0438 Initial Annual Wellness Exam 11:28:26 CDT CPT-28930 Chest 2V Frontal and Lat 15:00:00 PUMP OILER CPT-87576 Breathing Tx 14:49:25 PUMP OILER CPT-47288 Fluzone High Dose 15:08:41 PUMP OILER CPT-22173 Immunization Single Admin 15:08:41 PUMP OILER CPT-67930 Fluzone High Dose 17:31:19 CDT CPT-44328 Administration single or combination vaccine inc oral 17 :31:19 CDT CPT-80978 Venipuncture Draw Fee 11:03:05 CDT CPT-TCMM Transitional Care Mgmt-Moderate 16:32:35 CDT CPT-86220 Chest 2V Frontal and Lat 11:51:09 CDT CPT-G0008 Administration of Influenza Virus Vaccine 15:09:08 CDT CPT-62560 Fluzone High-Dose Intramuscular Suspension 15:09:08 CDT CPT-39147 Administration single or combination vaccine inc oral 17 :07:02 PUMP OILER CPT-42367 Influenza High Dose age 65+ 17:07:02 PUMP OILER
--- OUTSIDE RECORDS SUMMARY | 2017-02-27 22:37 | XMS REPORT | Clinical Summary ---
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 Arrington PACKING INSPECTOR Chronic airway obstruction, not elsewhere classified Family history of myocardial infarction V17.3 Active Tracie Arrington PACKING INSPECTOR Family history of ischemic heart disease CAD 414.00 Active Tracie Arrington APRN Coronary atherosclerosis of unspecified type of vessel, lummi or graft Peripheral edema 782.3 Active Austin [...] 1 tablet by mouth daily CITALOPRAM HYDROBROMIDE 06153451488 Active Nella José LPN Active KEFLEX 500 MG CAP 1 po BID x 7 days CEPHALEXIN 79243173080 No Longer Active Mica Naren Active KEFLEX 500 MG CAP 1 po BID x 7 days CEPHALEXIN 04591673864 No Longer Active Simona Galloway APRN Active ACYCLOVIR 400 MG TABS 1 pill three times daily ACYCLOVIR 89183928310 No Longer Active Austin Albarado MD Active ACYCLOVIR 400 MG TABS 1 pill three times daily ACYCLOVIR 28612047590 No Longer Active Austin Albarado MD Active ALBUTEROL SULFATE 0.083 % NEBU SOLN one vial per nebulizer every 4 hours as needed Dx. J44.1 ALBUTEROL SULFATE 17478343012 Active Austin Albarado MD Active IPRATROPIUM BROMIDE 0.02 % INH SOLN 1 q 6 hr PRN Dx: J44.1 IPRATROPIUM BROMIDE 50273873550 Active Nella José LPN Active PROAIR HFA 108 (90 BASE) MCG/ACT AERS take 1-2 puffs q 4-6 hrs prn cough/ SOB ALBUTEROL SULFATE 82044694483 Active Nella José LPN Active IPRATROPIUM-ALBUTEROL 0.5-2.5 (3) MG/3ML SOLN 1 VIAL NEB Q 4-6 HRS PRN 04/18 IPRATROPIUM-ALBUTEROL 95759866640 No Longer Active Austin Albarado MD Active ATIVAN 0.5 MG TAB 1 po QD PRN Anxiety LORAZEPAM 49619327335 Active Austin Albarado MD Active PREDNISONE 20 MG ORAL TABS 3 tabs po for 3 days than,2 tabs po for 3 days,1 tab po for 3 days, 1/2 tab po for 3 days. PREDNISONE 34401011031 No Longer Active Simona Galloway APRN Active LEVAQUIN 500 MG TAB 1 tablet by mouth daily LEVOFLOXACIN 68638620452 No Longer Active Simona Galloway APRN Active PREDNISONE 20 MG TAB take 3 tabs daily for 3 days, 2 tabs daily for 3 days, 1 tab daily for 3 days, 1/2 tab daily for 3 days PREDNISONE 17272165806 No Longer Active Austni Albarado MD Active LEVAQUIN 500 MG TAB 1 tablet by mouth daily LEVOFLOXACIN 94811198408 No Longer Active Madhaviavis Rogersida Active FUROSEMIDE 20 MG TABS take 1 tab po BID for swelling FUROSEMIDE 63330975907 Active Austin Albarado MD Active AMOXICILLIN 500 MG ORAL TABS Take one by mouth 3 times daily, morning, afternoon and evening.] AMOXICILLIN 24075385866 No Longer Active Garcia Stroud MD Active PREDNISONE 20 MG ORAL TABS 3 daily for 3 days than, 2 tabs daily for 3 days than, 2 tabs daily for 3 days than, 1 tab daily for 3 days than 1/2 tab daily for 3 days. PREDNISONE 05969985959 No Longer Active Tracie Arrington APRN Active FLUTICASONE PROPIONATE 50 MCG/ACT SUSP 1 to 2 sprays each nostril daily 08/21 FLUTICASONE PROPIONATE 87379587635 Active Austin Albarado MD Active PREDNISONE 10 MG TAB take 1 tab po qday for severe COPD PREDNISONE 27618198031 Active Austin Albarado MD Active PREDNISONE 20 MG ORAL TABS 3 TABS PO FOR 3 DAYS,THAN 2 TABS FOR 3 DAYS THAN, 1 TAB FOR 3 DAYS THAN, 1/2 TAB FOR 3 DAYS. PREDNISONE 26981188784 No Longer Active Austin Albarado MD Active LEVAQUIN 500 MG TAB 1 tablet by mouth daily for 10 days. LEVOFLOXACIN 21713746679 No Longer Active Austin Albarado MD Active PREDNISONE 20 MG TAB take 3 tabs daily for 3 days, 2 tabs daily for 3 days, 1 tab daily for 3 days, 1/2 tab daily for 3 days PREDNISONE 94372849282 No Longer Active Simona Galloway APRN Active ZITHROMAX 1 GM ORAL PACK DIRECTED AZITHROMYCIN 80948427880 No Longer Active Simona Galloway APRN Active PREDNISONE 20 MG TAB 2 tabs daily for 4 days, 1 tab daily for 4 days, 1/2 tab daily for 4 days PREDNISONE 47121133539 No Longer Active Austin Albarado MD Active LEVAQUIN 500 MG TAB 1 tablet by mouth daily LEVOFLOXACIN 88029670813 No Longer Active Austin Albarado MD Active PREDNISONE 20 MG TAB take 3 tabs daily for 3 days, 2 tabs daily for 3 days, 1 tab daily for 3 days, 1/2 tab daily for 3 days PREDNISONE 36633556960 No Longer Active Austin Albarado MD Active DOXYCYCLINE HYCLATE 100 MG CAP 1 cap by mouth twice daily DOXYCYCLINE HYCLATE 18800847404 No Longer Active Esperanza Modi APRN Active ALBUTEROL SULFATE (2.5 MG/3ML) 0.083% NEBU nebulize 1 vial q 4-6 hours prn shortness of breath ALBUTEROL SULFATE 68193199013 No Longer Active Esperanza Modi APRN Active TORSEMIDE 20 MG TABS 1 TAB PO BID TORSEMIDE 57672699237 No Longer Active Joshllaftab Modi APRN Active PREDNISONE 20 MG TAB 2 tabs daily for 3 days, 1 tab daily for 3 days, 1/2 tab daily for 2 days PREDNISONE 05659791432 No Longer Active Austin Albarado MD Active LEVOFLOXACIN 500 MG ORAL TABS take 1 tab po qday LEVOFLOXACIN 35329177764 No Longer Active Austin Albarado MD Active PREDNISONE 20 MG TAB 2 tablets today, then 1 tablet by mouth days 2-5 PREDNISONE 53977356488 No Longer Active Austin Albarado MD Active AZITHROMYCIN 500 MG SOLR 1 po q day AZITHROMYCIN 80916629697 No Longer Active Austin Albarado MD Active KEFLEX 500 MG CAP 1 po TID x 7 days CEPHALEXIN 69108059159 No Longer Active Tristan Vaughn MD Active EQL VISION FORMULA TABS 1 TAB PO DAILY MULTIPLE VITAMINS-MINERALS 40270317306 No Longer Active Tristan Vaughn MD Active CHANTIX STARTING MONTH ELVIS 0.5 MG X 11 & 1 MG X 42 TABS 0.5mg daily for 3 days , then 0.5mg BID for 4 days, then 1mg BID VARENICLINE TARTRATE 90472841158 No Longer Active Tristan Vaughn MD Active LEVOTHYROXINE SODIUM 200 MCG TABS 1 TAB PO DAILY LEVOTHYROXINE SODIUM 32580707622 No Longer Active Tristan Vaughn MD Active LIOTHYRONINE SODIUM 50 MCG TABS take 1 tab po qday for hypothyroidism LIOTHYRONINE SODIUM 28873483176 No Longer Active Austin Albarado MD Active SYNTHROID 0.025 MG TAB 1 tablet by mouth daily LEVOTHYROXINE SODIUM 39876903522 No Longer Active Austin Albarado MD Active ARMOUR THYROID 120 MG TABS take 1 tab po qday for hypothyroidism THYROID 23257998115 Active Austin Albarado MD Active FLONASE 50 MCG/ACT SUSP 1 spray each nostril am and hs FLUTICASONE PROPIONATE Active Simona Galloway APRN Active ZITHROMAX 1 GM PACK DIRECTED AZITHROMYCIN 11646897178 No Longer Active Austin Albarado MD Active PREDNISONE 20 MG TAB 2 tabs daily for 3 days, 1 tab daily for 3 days, 1/2 tab daily for 2 days PREDNISONE 12417548840 No Longer Active Austin Albarado MD Active ZITHROMAX 250 MG TAB 2 po today, then 1 po q days 2-5 AZITHROMYCIN 73881115474 No Longer Active Austin Albarado MD Active NYSTATIN-TRIAMCINOLONE 846511-8.1 UNIT/GM-% OINT Apply to affected area TID NYSTATIN-TRIAMCINOLONE 46225347109 Active Austin Albarado MD Active ADVAIR DISKUS 500-50 MCG/DOSE AEPB ONE INH BID FLUTICASONE- SALMETEROL 23538362214 Active Austin Albarado MD Active ZITHROMAX 1 GM PACK DIRECTED ZITHROMAX 1 GM PACK 931311 AZITHROMYCIN Inactive SYNTHROID 0.025 MG TAB 1 tablet by mouth daily SYNTHROID 0.025 MG TAB 469967 LEVOTHYROXINE SODIUM Inactive LIOTHYRONINE SODIUM 50 MCG TABS take 1 tab po qday for hypothyroidism LIOTHYRONINE SODIUM 50 MCG TABS 085432 LIOTHYRONINE SODIUM Inactive LEVOTHYROXINE SODIUM 200 MCG TABS 1 TAB PO DAILY LEVOTHYROXINE SODIUM 200 MCG TABS 702782 LEVOTHYROXINE SODIUM Inactive CHANTIX STARTING MONTH ELVIS [...] po q day AZITHROMYCIN 500 MG SOLR 06358470431 AZITHROMYCIN Inactive PREDNISONE 20 MG TAB 2 tablets today, then 1 tablet by mouth days 2-5 PREDNISONE 20 MG TAB 385379 PREDNISONE Inactive TORSEMIDE 20 MG TABS 1 TAB PO BID TORSEMIDE 20 MG TABS 584410 TORSEMIDE Inactive ALBUTEROL SULFATE (2.5 MG/3ML) 0.083% NEBU nebulize 1 vial q 4-6 hours prn shortness of breath ALBUTEROL SULFATE (2.5 MG/3ML) 0.083% [facility] 769777 ALBUTEROL SULFATE Inactive LEVAQUIN 500 MG TAB 1 tablet by mouth daily LEVAQUIN 500 MG TAB 754439 LEVOFLOXACIN Inactive PREDNISONE 20 MG TAB 2 tabs daily for 4 days, 1 tab daily for 4 days, 1/2 tab daily for 4 days PREDNISONE 20 MG TAB 688465 PREDNISONE Inactive ZITHROMAX 1 GM ORAL PACK DIRECTED ZITHROMAX 1 GM ORAL PACK 941022 AZITHROMYCIN Inactive LEVAQUIN 500 MG TAB 1 tablet by mouth daily for 10 days. LEVAQUIN 500 MG TAB 033915 LEVOFLOXACIN Inactive PREDNISONE 20 MG ORAL TABS 3 TABS PO FOR 3 DAYS,THAN 2 TABS FOR 3 DAYS THAN, 1 TAB FOR 3 DAYS THAN, 1/2 TAB FOR 3 DAYS. PREDNISONE 20 MG ORAL TABS 159255 PREDNISONE Inactive PREDNISONE 20 MG ORAL TABS 3 daily for 3 days than, 2 tabs daily for 3 days than, 2 tabs daily for 3 days than, 1 tab daily for 3 days than 1/2 tab daily for 3 days. PREDNISONE 20 MG ORAL TABS 282089 PREDNISONE Inactive AMOXICILLIN 500 MG ORAL TABS Take one by mouth 3 times daily, morning, afternoon and evening.] AMOXICILLIN 500 MG ORAL TABS 482010 AMOXICILLIN Inactive LEVAQUIN 500 MG TAB 1 tablet by mouth daily LEVAQUIN 500 MG TAB 158369 LEVOFLOXACIN Inactive LEVAQUIN 500 MG TAB 1 tablet by mouth daily LEVAQUIN 500 MG TAB 726211 LEVOFLOXACIN Inactive PREDNISONE 20 MG ORAL TABS 3 tabs po for 3 days than,2 tabs po for 3 days,1 tab po for 3 days, 1/2 tab po for 3 days. PREDNISONE 20 MG ORAL TABS 417675 PREDNISONE Inactive ZITHROMAX 250 MG TAB 2 po today, then 1 po q days 2-5 ZITHROMAX 250 MG TAB 0745559 AZITHROMYCIN Inactive PREDNISONE 20 MG TAB 2 tabs daily for 3 days, 1 tab daily for 3 days, 1/2 tab daily for 2 days PREDNISONE 20 MG TAB 024231 PREDNISONE Inactive KEFLEX 500 MG CAP 1 po TID x 7 days KEFLEX 500 MG CAP 387423 CEPHALEXIN Inactive LEVOFLOXACIN 500 MG ORAL TABS take 1 tab po qday LEVOFLOXACIN 500 MG ORAL TABS 457464 LEVOFLOXACIN Inactive PREDNISONE 20 MG TAB 2 tabs daily for 3 days, 1 tab daily for 3 days, 1/2 tab daily for 2 days PREDNISONE 20 MG TAB 066611 PREDNISONE Inactive DOXYCYCLINE HYCLATE 100 MG CAP 1 cap by mouth twice daily DOXYCYCLINE HYCLATE 100 MG CAP 1417622 DOXYCYCLINE HYCLATE Inactive PREDNISONE 20 MG TAB take 3 tabs daily for 3 days, 2 tabs daily for 3 days, 1 tab daily for 3 days, 1/2 tab daily for 3 days PREDNISONE 20 MG TAB 260722 PREDNISONE Inactive PREDNISONE 20 MG TAB take 3 tabs daily for 3 days, 2 tabs daily for 3 days, 1 tab daily for 3 days, 1/2 tab daily for 3 days PREDNISONE 20 MG TAB 267072 PREDNISONE Inactive PREDNISONE 20 MG TAB take 3 tabs daily for 3 days, 2 tabs daily for 3 days, 1 tab daily for 3 days, 1/2 tab daily for 3 days PREDNISONE 20 MG TAB 256033 PREDNISONE Inactive ACYCLOVIR 400 MG TABS 1 pill three times daily ACYCLOVIR 400 MG TABS 336141 ACYCLOVIR Inactive ACYCLOVIR 400 MG TABS 1 pill three times daily ACYCLOVIR 400 MG TABS 646595 ACYCLOVIR Inactive KEFLEX 500 MG CAP 1 po BID x 7 days KEFLEX 500 MG CAP 322675 CEPHALEXIN Inactive KEFLEX 500 MG CAP 1 po BID x 7 days KEFLEX 500 MG CAP 972488 CEPHALEXIN Inactive Advance Directives Directive Description Start [...] Peptide - Chemistry sodium, serum 140 mmol/L 370-518 9613/02/09 carbon dioxide, venous blood 39.2 mmol/L 21.0-32.0 [...] 0.00-1.00 Encounters Code Encounter Date Provider Facility CPT-95250 Level 3 Est. Patient 16:07:19 CDT Simona Galloway APRN [facility] CPT-34396 Level 4 Est. Patient 13:31:03 CDT Austin Albarado MD [facility] CPT-05310 Level 4 Est. Patient 17:54:41 JAVA PROGRAMMER ANALYST Austin Albarado MD [facility] CPT-42970 Level 4 Est. Patient 16:11:14 JAVA PROGRAMMER ANALYST Austin Albarado MD [facility] CPT-77248 Level 4 Est. Patient 23:08:56 CDT Austin Albarado MD [facility] CPT-35310 Level 4 Est. Patient 13:27:28 CDT Garcia Stroud MD [facility]-55163 Level 4 Est. Patient 10:51:20 CDT Austin Albarado MD [facility] CPT-14152 Level 4 Est. Patient 20:09:43 JAVA PROGRAMMER ANALYST Austin Albarado MD [facility] CPT-93530 Level 4 Est. Patient 21:00:28 CDT Austin Albarado MD [facility] CPT-46736 Level 4 Est. Patient 10:03:37 CDT Austin Albarado MD [facility] CPT-09591 Level 3 Est. Patient 10:50:28 JAVA PROGRAMMER ANALYST Austin Albarado MD [facility] CPT-18866 Level 4 Est. Patient 21:31:41 JAVA PROGRAMMER ANALYST Austin Albarado MD [facility] CPT-59998 Level 3 Est. Patient 16:22:54 JAVA PROGRAMMER ANALYST Jann Law DO [facility] CPT-06898 Level 3 Est. Patient 11:04:53 JAVA PROGRAMMER ANALYST Tristan Vaughn MD [facility] CPT-42361 Level 4 Est. Patient 09:50:59 CDT Austin Albarado MD [facility] CPT-03726 Level 4 Est. Patient 09:29:00 CDT Austin Albarado MD [facility] CPT-36844 Level 4 Est. Patient 14:23:07 CDT Austin Albarado MD [facility] CPT-27085 Level 4 Est. Patient 14:27:26 CDT Austin Albarado MD [facility] CPT-02779 Level 4 Est. Patient 12:51:43 JAVA PROGRAMMER ANALYST Austin Albarado MD [facility] CPT-37175 Level 3 New Patient 14:17:38 JAVA PROGRAMMER ANALYST Austin Albarado MD [facility] CPT-87274 Level 3 New Patient 11:28:18 JAVA PROGRAMMER ANALYST Austin Albarado MD [facility] Procedures Code Procedure Name Date Entry Date Standard Description CPT-G0439 Subsequent Annual Wellness Exam 08:13:24 CDT CPT-TCMM Transitional Care Mgmt-Moderate 14:53:36 JAVA PROGRAMMER ANALYST CPT-30395 No Charge Offi Visit 10:19:33 JAVA PROGRAMMER ANALYST CPT-62855 Chest 2V Frontal and Lat - XRAY USE ONLY 15:01:41 JAVA PROGRAMMER ANALYST CPT-65483 First Vx - Ix admin for Medicare patients 16:00:49 CDT CPT-99270 Fluzone High-Dose Intramuscular Suspension 16:00:49 CDT CPT-G0009 Administration of Pneumococcal Vaccine 13:25:27 CDT CPT-43959 Prevnar 13 Intramuscular Suspension 13:25:27 CDT 09/26 CPT-G0438 Initial Annual Wellness Exam 11:28:26 CDT CPT-06865 Chest 2V Frontal and Lat 15:00:00 JAVA PROGRAMMER ANALYST CPT-19243 Breathing Tx 14:49:25 JAVA PROGRAMMER ANALYST CPT-49302 Fluzone High Dose 15:08:41 JAVA PROGRAMMER ANALYST CPT-06026 Immunization Single Admin 15:08:41 JAVA PROGRAMMER ANALYST CPT-20475 Fluzone High Dose 17:31:19 CDT CPT-70187 Administration single or combination vaccine inc oral 17 :31:19 CDT CPT-63929 Venipuncture Draw Fee 11:03:05 CDT CPT-TCMM Transitional Care Mgmt-Moderate 16:32:35 CDT CPT-69281 Chest 2V Frontal and Lat 11:51:09 CDT CPT-G0008 Administration of Influenza Virus Vaccine 15:09:08 CDT CPT-65549 Fluzone High-Dose Intramuscular Suspension 15:09:08 CDT CPT-41682 Administration single or combination vaccine inc oral 17 :07:02 JAVA PROGRAMMER ANALYST CPT-02598 Influenza High Dose age 65+ 17:07:02 JAVA PROGRAMMER ANALYST
[2017-02-27 22:38] LABS: ABG BASE EXCESS 10.8 MMOL/L (-2.5-2.5); ABG HCO3 38 MMOL/L (23-27); ABG OXYGEN SATURATION 91 % (94-100); ABG PO2 70 MMHG (79-93)
[2017-02-27] MEDS ORDERED: PROPOFOL DRIP (ICU) 100 ML IV ONE (22:38)
[2017-02-27] MEDS ORDERED: fentaNYL INJECTION 100 MCG/2 ML AMP ONE (22:38)
--- OUTSIDE RECORDS SUMMARY | 2017-02-27 22:38 | XMS REPORT | Clinical Summary ---
Author Author Admin, LEE Organization [facility] Address Unknown Phone Unavailable Allergies, Adverse Reactions, [...] THAN, 1/2 TAB FOR 3 DAYS. PREDNISONE 86750403886 No Longer Active Austin Albarado MD Active LEVAQUIN 500 MG TAB 1 tablet by mouth daily for 10 days. LEVOFLOXACIN 63299401084 No Longer Active Austin Albarado MD Active PREDNISONE 20 MG TAB take 3 tabs daily for 3 days, 2 tabs daily for 3 days, 1 tab daily for 3 days, 1/2 tab daily for 3 days PREDNISONE 80211913453 No Longer Active Simona Galloway APRN Active ZITHROMAX 1 GM ORAL PACK DIRECTED AZITHROMYCIN 40161692672 No Longer Active Simona Galloway APRN Active PREDNISONE 20 MG TAB 2 tabs daily for 4 days, 1 tab daily for 4 days, 1/2 tab daily for 4 days PREDNISONE 03931487406 No Longer Active Austin Albarado MD Active LEVAQUIN 500 MG TAB 1 tablet by mouth daily LEVOFLOXACIN 12108091504 No Longer Active Austin Albarado MD Active PREDNISONE 20 MG TAB take 3 tabs daily for 3 days, 2 tabs daily for 3 days, 1 tab daily for 3 days, 1/2 tab daily for 3 days PREDNISONE 90050102674 No Longer Active Austin Albarado MD Active DOXYCYCLINE HYCLATE 100 MG CAP 1 cap by mouth twice daily DOXYCYCLINE HYCLATE 93585920941 No Longer Active Joshllaftab Modi APRN Active ALBUTEROL SULFATE (2.5 MG/3ML) 0.083% NEBU nebulize 1 vial q 4-6 hours prn shortness of breath ALBUTEROL SULFATE 58180582659 No Longer Active Jillina Ly BOWEN Active TORSEMIDE 20 MG TABS 1 TAB PO BID TORSEMIDE 14788942125 No Longer Active Jillina Fraganga BOWEN Active PREDNISONE 20 MG TAB 2 tabs daily for 3 days, 1 tab daily for 3 days, 1/2 tab daily for 2 days PREDNISONE 62728889737 No Longer Active Austin Albarado MD Active LEVOFLOXACIN 500 MG ORAL TABS take 1 tab po qday LEVOFLOXACIN 10368707315 No Longer Active Austin Albarado MD Active PREDNISONE 20 MG TAB 2 tablets today, then 1 tablet by mouth days 2-5 PREDNISONE 75414160183 No Longer Active Austin Albarado MD Active AZITHROMYCIN 500 MG SOLR 1 po q day AZITHROMYCIN 73282761669 No Longer Active Austin Albarado MD Active KEFLEX 500 MG CAP 1 po TID x 7 days CEPHALEXIN 29155196063 No Longer Active Tristan Vaughn MD Active EQL VISION FORMULA TABS 1 TAB PO DAILY MULTIPLE VITAMINS-MINERALS 43073418290 No Longer Active Tristan Vaughn MD Active CHANTIX STARTING MONTH ELVIS 0.5 MG X 11 & 1 MG X 42 TABS 0.5mg daily for 3 days , then 0.5mg BID for 4 days, then 1mg BID VARENICLINE TARTRATE 14546807802 No Longer Active Tristan Vaughn MD Active LEVOTHYROXINE SODIUM 200 MCG TABS 1 TAB PO DAILY LEVOTHYROXINE SODIUM 21939505411 No Longer Active Tristan Vaughn MD Active LIOTHYRONINE SODIUM 50 MCG TABS take 1 tab po qday for hypothyroidism LIOTHYRONINE SODIUM 04393443628 No Longer Active Austin Albarado MD Active SYNTHROID 0.025 MG TAB 1 tablet by mouth daily LEVOTHYROXINE SODIUM 16948646618 No Longer Active Austin Albarado MD Active ARMOUR THYROID 120 MG TABS take 1 tab po qday for hypothyroidism THYROID 89464048554 Active Austin Albarado MD Active FLONASE 50 MCG/ACT SUSP 1 spray each nostril am and hs FLUTICASONE PROPIONATE 04117885923 Active Austin Albarado MD Active ZITHROMAX 1 GM PACK DIRECTED AZITHROMYCIN 28194147548 No Longer Active Austin Albarado MD Active PREDNISONE 20 MG TAB 2 tabs daily for 3 days, 1 tab daily for 3 days, 1/2 tab daily for 2 days PREDNISONE 27562736416 No Longer Active Austin Albarado MD Active ZITHROMAX 250 MG TAB 2 po today, then 1 po q days 2-5 AZITHROMYCIN 24296535158 No Longer Active Austin Albarado MD Active NYSTATIN-TRIAMCINOLONE 553194-6.1 UNIT/GM-% OINT Apply to affected area TID NYSTATIN-TRIAMCINOLONE 63413446394 Active Austin Albarado MD Active IPRATROPIUM-ALBUTEROL 0.5-2.5 (3) MG/3ML SOLN 1 VIAL NEB Q 6 HRS PRN IPRATROPIUM-ALBUTEROL 84016541356 Active Austin Albarado MD Active PROAIR HFA 108 (90 BASE) MCG/ACT AERS take 1-2 puffs q4hrs prn cough/ SOB ALBUTEROL SULFATE 95135575005 Active Austin Albarado MD Active ADVAIR DISKUS 500-50 MCG/DOSE AEPB ONE INH BID FLUTICASONE- SALMETEROL 67128525964 Active Austin Albarado MD Active ZITHROMAX 1 GM PACK DIRECTED ZITHROMAX 1 GM PACK 958518 AZITHROMYCIN Inactive SYNTHROID 0.025 MG TAB 1 tablet by mouth daily SYNTHROID 0.025 MG TAB 272345 LEVOTHYROXINE SODIUM Inactive LIOTHYRONINE SODIUM 50 MCG TABS take 1 tab po qday for hypothyroidism LIOTHYRONINE SODIUM 50 MCG TABS 704574 LIOTHYRONINE SODIUM Inactive LEVOTHYROXINE SODIUM 200 MCG TABS 1 TAB PO DAILY LEVOTHYROXINE SODIUM 200 MCG TABS 704196 LEVOTHYROXINE SODIUM Inactive CHANTIX STARTING MONTH ELVIS [...] po q day AZITHROMYCIN 500 MG SOLR 30707452302 AZITHROMYCIN Inactive PREDNISONE 20 MG TAB 2 tablets today, then 1 tablet by mouth days 2-5 PREDNISONE 20 MG TAB 993072 PREDNISONE Inactive TORSEMIDE 20 MG TABS 1 TAB PO BID TORSEMIDE 20 MG TABS 866507 TORSEMIDE Inactive ALBUTEROL SULFATE (2.5 MG/3ML) 0.083% NEBU nebulize 1 vial q 4-6 hours prn shortness of breath ALBUTEROL SULFATE (2.5 MG/3ML) 0.083% NEBU 281595 ALBUTEROL SULFATE Inactive LEVAQUIN 500 MG TAB 1 tablet by mouth daily LEVAQUIN 500 MG TAB 032758 LEVOFLOXACIN Inactive PREDNISONE 20 MG TAB 2 tabs daily for 4 days, 1 tab daily for 4 days, 1/2 tab daily for 4 days PREDNISONE 20 MG TAB 667333 PREDNISONE Inactive ZITHROMAX 1 GM ORAL PACK DIRECTED ZITHROMAX 1 GM ORAL PACK 490828 AZITHROMYCIN Inactive LEVAQUIN 500 MG TAB 1 tablet by mouth daily for 10 days. LEVAQUIN 500 MG TAB 627973 LEVOFLOXACIN Inactive PREDNISONE 20 MG ORAL TABS 3 TABS PO FOR 3 DAYS,THAN 2 TABS FOR 3 DAYS THAN, 1 TAB FOR 3 DAYS THAN, 1/2 TAB FOR 3 DAYS. PREDNISONE 20 MG ORAL TABS 635902 PREDNISONE Inactive ZITHROMAX 250 MG TAB 2 po today, then 1 po q days 2-5 ZITHROMAX 250 MG TAB 8233474 AZITHROMYCIN Inactive PREDNISONE 20 MG TAB 2 tabs daily for 3 days, 1 tab daily for 3 days, 1/2 tab daily for 2 days PREDNISONE 20 MG TAB 819568 PREDNISONE Inactive KEFLEX 500 MG CAP 1 po TID x 7 days KEFLEX 500 MG CAP 808703 CEPHALEXIN Inactive LEVOFLOXACIN 500 MG ORAL TABS take 1 tab po qday LEVOFLOXACIN 500 MG ORAL TABS 199630 LEVOFLOXACIN Inactive PREDNISONE 20 MG TAB 2 tabs daily for 3 days, 1 tab daily for 3 days, 1/2 tab daily for 2 days PREDNISONE 20 MG TAB 459845 PREDNISONE Inactive DOXYCYCLINE HYCLATE 100 MG CAP 1 cap by mouth twice daily DOXYCYCLINE HYCLATE 100 MG CAP 1948683 DOXYCYCLINE HYCLATE Inactive PREDNISONE 20 MG TAB take 3 tabs daily for 3 days, 2 tabs daily for 3 days, 1 tab daily for 3 days, 1/2 tab daily for 3 days PREDNISONE 20 MG TAB 770767 PREDNISONE Inactive PREDNISONE 20 MG TAB take 3 tabs daily for 3 days, 2 tabs daily for 3 days, 1 tab daily for 3 days, 1/2 tab daily for 3 days PREDNISONE 20 MG TAB 704053 PREDNISONE Inactive Advance Directives Directive Description Start [...] ... - Chemistry sodium, serum 140 mmol/L 330-082 8057/03/09 potassium, serum 4.9 mmol/L 3.5-5.2 chloride, serum [...] ... - Chemistry cholesterol, serum 136 mg/dL 875-714 3355/10/06 triglyceride, serum, fasting 30 mg/dL 30-200 HDL cholesterol, serum 57 mg/dL 32-96 LDL cholesterol, serum 73 mg/dL 0-130 prostate specific antigen 1.45 ng/mL 0.00-4.00 thyroxine, serum, free 0.80 ng/dL 0.76-1.46 TSH 14.03 m[iU]/mL 0.36-3.74 Encounters Code Encounter Date Provider Facility CPT-89346 Level 4 Est. Patient 20:09:43 [employer] Austin Albarado MD [facility] CPT-66248 Level 4 Est. Patient 21:00:28 CDT Austin Albarado MD [facility] CPT-03703 Level 4 Est. Patient 10:03:37 CDT Austin Albarado MD [facility] CPT-48688 Level 3 Est. Patient 10:50:28 [employer] Austin Albarado MD [facility] CPT-64399 Level 4 Est. Patient 21:31:41 [employer] Austin Albarado MD [facility] CPT-27470 Level 3 Est. Patient 16:22:54 [employer] Jann Law DO [facility] CPT-72556 Level 3 Est. Patient 11:04:53 [employer] Tristan Vaughn MD [facility] CPT-97995 Level 4 Est. Patient 09:50:59 CDT Austin Albarado MD [facility] CPT-68597 Level 4 Est. Patient 09:29:00 CDT Austin Albarado MD [facility] CPT-73898 Level 4 Est. Patient 14:23:07 CDT Austin Albarado MD [facility] CPT-72339 Level 4 Est. Patient 14:27:26 CDT Austin Albarado MD [facility] CPT-62192 Level 4 Est. Patient 12:51:43 [employer] Austin Albarado MD [facility] CPT-48172 Level 3 New Patient 14:17:38 [employer] Austin Albarado MD [facility] CPT-34893 Level 3 New Patient 11:28:18 [employer] Austin Albarado MD [facility] Procedures Code Procedure Name Date Entry Date Standard Description CPT-59224 Chest 2V Frontal and Lat 15:00:00 [employer] CPT-72917 Breathing Tx 14:49:25 [employer] CPT-94799 Fluzone High Dose 15:08:41 [employer] CPT-36940 Immunization Single Admin 15:08:41 [employer] CPT-53670 Fluzone High Dose 17:31:19 CDT CPT-29385 Administration single or combination vaccine inc oral 17 :31:19 CDT CPT-30407 Venipuncture Draw Fee 11:03:05 CDT CPT-TCMM Transitional Care Mgmt-Moderate 16:32:35 CDT CPT-13397 Chest 2V Frontal and Lat 11:51:09 CDT CPT-G0008 Administration of Influenza Virus Vaccine 15:09:08 CDT CPT-21145 Fluzone High-Dose Intramuscular Suspension 15:09:08 CDT CPT-17221 Administration single or combination vaccine inc oral 17 :07:02 [employer] CPT-21573 Influenza High Dose age 65+ 17:07:02 [employer]
--- OUTSIDE RECORDS SUMMARY | 2017-02-27 22:38 | XMS REPORT | Clinical Summary ---
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 ALBUTEROL SULFATE 07115370897 Active Nella José LPN Active IPRATROPIUM BROMIDE 0.02 % INH SOLN 1 q 6 hr PRN Dx: J44.1 IPRATROPIUM BROMIDE 94305296420 Active Nella José LPN Active PROAIR HFA 108 (90 BASE) MCG/ACT AERS take 1-2 puffs q 4-6 hrs prn cough/ SOB ALBUTEROL SULFATE 57327954559 Active Nella José LPN Active IPRATROPIUM-ALBUTEROL 0.5-2.5 (3) MG/3ML SOLN 1 VIAL NEB Q 4-6 HRS PRN 04/18 IPRATROPIUM-ALBUTEROL 10601209193 No Longer Active Austin Albarado MD Active ATIVAN 0.5 MG TAB 1 po QD PRN Anxiety LORAZEPAM 01713733462 Active Nella José LPN Active PREDNISONE 20 MG ORAL TABS 3 tabs po for 3 days than,2 tabs po for 3 days,1 tab po for 3 days, 1/2 tab po for 3 days. PREDNISONE 76307748956 No Longer Active Simona Galloway APRN Active LEVAQUIN 500 MG TAB 1 tablet by mouth daily LEVOFLOXACIN 90194745683 No Longer Active Simona Galloway APRN Active PREDNISONE 20 MG TAB take 3 tabs daily for 3 days, 2 tabs daily for 3 days, 1 tab daily for 3 days, 1/2 tab daily for 3 days PREDNISONE 55605774958 No Longer Active Austin Albarado MD Active LEVAQUIN 500 MG TAB 1 tablet by mouth daily LEVOFLOXACIN 82700421656 No Longer Active Madhavi Fiore Active FUROSEMIDE 20 MG TABS take 1 tab po BID for swelling FUROSEMIDE 98142090486 Active Austin Albarado MD Active AMOXICILLIN 500 MG ORAL TABS Take one by mouth 3 times daily, morning, afternoon and evening.] AMOXICILLIN 14797378408 No Longer Active Garcia Stroud MD Active PREDNISONE 20 MG ORAL TABS 3 daily for 3 days than, 2 tabs daily for 3 days than, 2 tabs daily for 3 days than, 1 tab daily for 3 days than 1/2 tab daily for 3 days. PREDNISONE 44021509983 No Longer Active Tracie Arrington APRN Active FLUTICASONE PROPIONATE 50 MCG/ACT SUSP 1 to 2 sprays each nostril daily 08/21 FLUTICASONE PROPIONATE 55406223097 Active Simona Galloway APRN Active PREDNISONE 10 MG TAB take 1 tab po qday for severe COPD PREDNISONE 94102483792 Active Austin Albarado MD Active PREDNISONE 20 MG ORAL TABS 3 TABS PO FOR 3 DAYS,THAN 2 TABS FOR 3 DAYS THAN, 1 TAB FOR 3 DAYS THAN, 1/2 TAB FOR 3 DAYS. PREDNISONE 09869954017 No Longer Active Austin Albarado MD Active LEVAQUIN 500 MG TAB 1 tablet by mouth daily for 10 days. LEVOFLOXACIN 66308947985 No Longer Active Austin Albarado MD Active PREDNISONE 20 MG TAB take 3 tabs daily for 3 days, 2 tabs daily for 3 days, 1 tab daily for 3 days, 1/2 tab daily for 3 days PREDNISONE 50599796883 No Longer Active Simona Galloway APRN Active ZITHROMAX 1 GM ORAL PACK DIRECTED AZITHROMYCIN 56750425071 No Longer Active Simona Galloway APRN Active PREDNISONE 20 MG TAB 2 tabs daily for 4 days, 1 tab daily for 4 days, 1/2 tab daily for 4 days PREDNISONE 70146760059 No Longer Active Austin Albarado MD Active LEVAQUIN 500 MG TAB 1 tablet by mouth daily LEVOFLOXACIN 97277415162 No Longer Active Austin Albarado MD Active PREDNISONE 20 MG TAB take 3 tabs daily for 3 days, 2 tabs daily for 3 days, 1 tab daily for 3 days, 1/2 tab daily for 3 days PREDNISONE 31456999514 No Longer Active Austin Albarado MD Active DOXYCYCLINE HYCLATE 100 MG CAP 1 cap by mouth twice daily DOXYCYCLINE HYCLATE 35116380187 No Longer Active Esperanza Modi APRN Active ALBUTEROL SULFATE (2.5 MG/3ML) 0.083% NEBU nebulize 1 vial q 4-6 hours prn shortness of breath ALBUTEROL SULFATE 36839625167 No Longer Active Esperanza Modi APRN Active TORSEMIDE 20 MG TABS 1 TAB PO BID TORSEMIDE 36472692435 No Longer Active Esperanza Modi APRN Active PREDNISONE 20 MG TAB 2 tabs daily for 3 days, 1 tab daily for 3 days, 1/2 tab daily for 2 days PREDNISONE 32340950375 No Longer Active Austin Albarado MD Active LEVOFLOXACIN 500 MG ORAL TABS take 1 tab po qday LEVOFLOXACIN 25499797234 No Longer Active Austin Albarado MD Active PREDNISONE 20 MG TAB 2 tablets today, then 1 tablet by mouth days 2-5 PREDNISONE 50557547802 No Longer Active Austin Albarado MD Active AZITHROMYCIN 500 MG SOLR 1 po q day AZITHROMYCIN 88192972261 No Longer Active Austin Albarado MD Active KEFLEX 500 MG CAP 1 po TID x 7 days CEPHALEXIN 85563706158 No Longer Active Tristan Vaughn MD Active EQL VISION FORMULA TABS 1 TAB PO DAILY MULTIPLE VITAMINS-MINERALS 30928884030 No Longer Active Tristan Vaughn MD Active CHANTIX STARTING MONTH ELVIS 0.5 MG X 11 & 1 MG X 42 TABS 0.5mg daily for 3 days , then 0.5mg BID for 4 days, then 1mg BID VARENICLINE TARTRATE 43834685581 No Longer Active Tristan Vaughn MD Active LEVOTHYROXINE SODIUM 200 MCG TABS 1 TAB PO DAILY LEVOTHYROXINE SODIUM 66858066245 No Longer Active Tristan Vaughn MD Active LIOTHYRONINE SODIUM 50 MCG TABS take 1 tab po qday for hypothyroidism LIOTHYRONINE SODIUM 49946928168 No Longer Active Austin Albarado MD Active SYNTHROID 0.025 MG TAB 1 tablet by mouth daily LEVOTHYROXINE SODIUM 12056152791 No Longer Active Austin Albarado MD Active ARMOUR THYROID 120 MG TABS take 1 tab po qday for hypothyroidism THYROID 68617175569 Active Austin Albarado MD Active FLONASE 50 MCG/ACT SUSP 1 spray each nostril am and hs FLUTICASONE PROPIONATE Active Simona Galloway APRN Active ZITHROMAX 1 GM PACK DIRECTED AZITHROMYCIN 20466520879 No Longer Active Austin Albarado MD Active PREDNISONE 20 MG TAB 2 tabs daily for 3 days, 1 tab daily for 3 days, 1/2 tab daily for 2 days PREDNISONE 17843963763 No Longer Active Austin Albarado MD Active ZITHROMAX 250 MG TAB 2 po today, then 1 po q days 2-5 AZITHROMYCIN 97281099099 No Longer Active Austin Albarado MD Active NYSTATIN-TRIAMCINOLONE 838450-6.1 UNIT/GM-% OINT Apply to affected area TID NYSTATIN-TRIAMCINOLONE 45020509708 Active Austin Albarado MD Active ADVAIR DISKUS 500-50 MCG/DOSE AEPB ONE INH BID FLUTICASONE- SALMETEROL 47119301783 Active Austin Albarado MD Active ZITHROMAX 1 GM PACK DIRECTED ZITHROMAX 1 GM PACK 486131 AZITHROMYCIN Inactive SYNTHROID 0.025 MG TAB 1 tablet by mouth daily SYNTHROID 0.025 MG TAB 412804 LEVOTHYROXINE SODIUM Inactive LIOTHYRONINE SODIUM 50 MCG TABS take 1 tab po qday for hypothyroidism LIOTHYRONINE SODIUM 50 MCG TABS 339396 LIOTHYRONINE SODIUM Inactive LEVOTHYROXINE SODIUM 200 MCG TABS 1 TAB PO DAILY LEVOTHYROXINE SODIUM 200 MCG TABS 273847 LEVOTHYROXINE SODIUM Inactive CHANTIX STARTING MONTH ELVIS [...] po q day AZITHROMYCIN 500 MG SOLR 46988710157 AZITHROMYCIN Inactive PREDNISONE 20 MG TAB 2 tablets today, then 1 tablet by mouth days 2-5 PREDNISONE 20 MG TAB 649994 PREDNISONE Inactive TORSEMIDE 20 MG TABS 1 TAB PO BID TORSEMIDE 20 MG TABS 272066 TORSEMIDE Inactive ALBUTEROL SULFATE (2.5 MG/3ML) 0.083% NEBU nebulize 1 vial q 4-6 hours prn shortness of breath ALBUTEROL SULFATE (2.5 MG/3ML) 0.083% NEBU 964752 ALBUTEROL SULFATE Inactive LEVAQUIN 500 MG TAB 1 tablet by mouth daily LEVAQUIN 500 MG TAB 860841 LEVOFLOXACIN Inactive PREDNISONE 20 MG TAB 2 tabs daily for 4 days, 1 tab daily for 4 days, 1/2 tab daily for 4 days PREDNISONE 20 MG TAB 646501 PREDNISONE Inactive ZITHROMAX 1 GM ORAL PACK DIRECTED ZITHROMAX 1 GM ORAL PACK 069449 AZITHROMYCIN Inactive LEVAQUIN 500 MG TAB 1 tablet by mouth daily for 10 days. LEVAQUIN 500 MG TAB 054381 LEVOFLOXACIN Inactive PREDNISONE 20 MG ORAL TABS 3 TABS PO FOR 3 DAYS,THAN 2 TABS FOR 3 DAYS THAN, 1 TAB FOR 3 DAYS THAN, 1/2 TAB FOR 3 DAYS. PREDNISONE 20 MG ORAL TABS 740561 PREDNISONE Inactive PREDNISONE 20 MG ORAL TABS 3 daily for 3 days than, 2 tabs daily for 3 days than, 2 tabs daily for 3 days than, 1 tab daily for 3 days than 1/2 tab daily for 3 days. PREDNISONE 20 MG ORAL TABS 345771 PREDNISONE Inactive AMOXICILLIN 500 MG ORAL TABS Take one by mouth 3 times daily, morning, afternoon and evening.] AMOXICILLIN 500 MG ORAL TABS 133944 AMOXICILLIN Inactive LEVAQUIN 500 MG TAB 1 tablet by mouth daily LEVAQUIN 500 MG TAB 641642 LEVOFLOXACIN Inactive LEVAQUIN 500 MG TAB 1 tablet by mouth daily LEVAQUIN 500 MG TAB 314584 LEVOFLOXACIN Inactive PREDNISONE 20 MG ORAL TABS 3 tabs po for 3 days than,2 tabs po for 3 days,1 tab po for 3 days, 1/2 tab po for 3 days. PREDNISONE 20 MG ORAL TABS 412594 PREDNISONE Inactive ZITHROMAX 250 MG TAB 2 po today, then 1 po q days 2-5 ZITHROMAX 250 MG TAB 0621863 AZITHROMYCIN Inactive PREDNISONE 20 MG TAB 2 tabs daily for 3 days, 1 tab daily for 3 days, 1/2 tab daily for 2 days PREDNISONE 20 MG TAB 882096 PREDNISONE Inactive KEFLEX 500 MG CAP 1 po TID x 7 days KEFLEX 500 MG CAP 699588 CEPHALEXIN Inactive LEVOFLOXACIN 500 MG ORAL TABS take 1 tab po qday LEVOFLOXACIN 500 MG ORAL TABS 951871 LEVOFLOXACIN Inactive PREDNISONE 20 MG TAB 2 tabs daily for 3 days, 1 tab daily for 3 days, 1/2 tab daily for 2 days PREDNISONE 20 MG TAB 752590 PREDNISONE Inactive DOXYCYCLINE HYCLATE 100 MG CAP 1 cap by mouth twice daily DOXYCYCLINE HYCLATE 100 MG CAP 9395151 DOXYCYCLINE HYCLATE Inactive PREDNISONE 20 MG TAB take 3 tabs daily for 3 days, 2 tabs daily for 3 days, 1 tab daily for 3 days, 1/2 tab daily for 3 days PREDNISONE 20 MG TAB 800688 PREDNISONE Inactive PREDNISONE 20 MG TAB take 3 tabs daily for 3 days, 2 tabs daily for 3 days, 1 tab daily for 3 days, 1/2 tab daily for 3 days PREDNISONE 20 MG TAB 403462 PREDNISONE Inactive PREDNISONE 20 MG TAB take 3 tabs daily for 3 days, 2 tabs daily for 3 days, 1 tab daily for 3 days, 1/2 tab daily for 3 days PREDNISONE 20 MG TAB 055207 PREDNISONE Inactive Advance Directives Directive Description Start [...] Peptide - Chemistry sodium, serum 140 mmol/L 221-337 5079/02/09 carbon dioxide, venous blood 39.2 mmol/L 21.0-32.0 [...] 43.52 m[iU]/mL 0.36-3.74 sodium, serum 140 mmol/L 329-961 8890/04/06 carbon dioxide, venous blood 36.3 mmol/L 21.0-32.0 potassium, serum 4.9 mmol/L 3.5-5.2 chloride, serum 100 mmol/L 98-107 blood glucose 62 mg/dL 65-110 urea nitrogen, blood 24 mg/dL 7-18 creatinine, serum 1.09 mg/dL 0.55-1.30 alanine aminotransferase (SGPT), serum 44 U/L 12-78 aspartate aminotransferase (SGOT), serum 25 U/L 15-37 calcium, serum 8.7 mg/dL 8.5-10.1 bilirubin, serum, total 0.50 mg/dL 0.00-1.00 cholesterol, serum 189 mg/dL 108-977 2196/04/06 triglyceride, serum, fasting 117 mg/dL 30-200 HDL [...] 142-424 Encounters Code Encounter Date Provider Facility CPT-29228 Level 4 Est. Patient 17:54:41 MATERIAL MIXER Austin Albarado MD [facility]-61449 Level 4 Est. Patient 16:11:14 MATERIAL MIXER Austin Albarado MD [facility]-56698 Level 4 Est. Patient 23:08:56 CDT Austin Albarado MD [facility]-43730 Level 4 Est. Patient 13:27:28 CDT Garcia Stroud MD [facility]-94838 Level 4 Est. Patient 10:51:20 CDT Austin Albarado MD [facility]-43688 Level 4 Est. Patient 20:09:43 MATERIAL MIXER Austin Albarado MD [facility]-06746 Level 4 Est. Patient 21:00:28 CDT Austin Albarado MD [facility] CPT-67387 Level 4 Est. Patient 10:03:37 CDT Austin Albarado MD [facility] CPT-50217 Level 3 Est. Patient 10:50:28 MATERIAL MIXER Ausitn Albarado MD [facility] CPT-90696 Level 4 Est. Patient 21:31:41 MATERIAL MIXER Austin Albarado MD [facility] CPT-54038 Level 3 Est. Patient 16:22:54 MATERIAL MIXER Jann Law DO [facility] CPT-54230 Level 3 Est. Patient 11:04:53 MATERIAL MIXER Tristan Vaughn MD [facility] CPT-67476 Level 4 Est. Patient 09:50:59 CDT Austin Albarado MD [facility] CPT-75896 Level 4 Est. Patient 09:29:00 CDT Austin Albarado MD [facility]-55743 Level 4 Est. Patient 14:23:07 CDT Austin Albarado MD [facility] CPT-57123 Level 4 Est. Patient 14:27:26 CDT Austin Albarado MD [facility] CPT-74340 Level 4 Est. Patient 12:51:43 MATERIAL MIXER Austin Albarado MD [facility] CPT-14314 Level 3 New Patient 14:17:38 MATERIAL MIXER Austin Albarado MD [facility] CPT-39659 Level 3 New Patient 11:28:18 MATERIAL MIXER Austin Albarado MD [facility] Procedures Code Procedure Name Date Entry Date Standard Description CPT-TCMM Transitional Care Mgmt-Moderate 14:53:36 MATERIAL MIXER CPT-18532 No Charge Offi Visit 10:19:33 MATERIAL MIXER CPT-56400 Chest 2V Frontal and Lat - XRAY USE ONLY 15:01:41 MATERIAL MIXER CPT-33705 First Vx - Ix admin for Medicare patients 16:00:49 CDT CPT-76362 Fluzone High-Dose Intramuscular Suspension 16:00:49 CDT CPT-G0009 Administration of Pneumococcal Vaccine 13:25:27 CDT CPT-51156 Prevnar 13 Intramuscular Suspension 13:25:27 CDT 09/26 CPT-G0438 Initial Annual Wellness Exam 11:28:26 CDT CPT-95384 Chest 2V Frontal and Lat 15:00:00 MATERIAL MIXER CPT-13100 Breathing Tx 14:49:25 MATERIAL MIXER CPT-63737 Fluzone High Dose 15:08:41 MATERIAL MIXER CPT-52424 Immunization Single Admin 15:08:41 MATERIAL MIXER CPT-97254 Fluzone High Dose 17:31:19 CDT CPT-00501 Administration single or combination vaccine inc oral 17 :31:19 CDT CPT-72158 Venipuncture Draw Fee 11:03:05 CDT CPT-TCMM Transitional Care Mgmt-Moderate 16:32:35 CDT CPT-60646 Chest 2V Frontal and Lat 11:51:09 CDT CPT-G0008 Administration of Influenza Virus Vaccine 15:09:08 CDT CPT-04622 Fluzone High-Dose Intramuscular Suspension 15:09:08 CDT CPT-18672 Administration single or combination vaccine inc oral 17 :07:02 MATERIAL MIXER CPT-93487 Influenza High Dose age 65+ 17:07:02 MATERIAL MIXER
--- OUTSIDE RECORDS SUMMARY | 2017-02-27 22:39 | XMS REPORT | Clinical Summary ---
Author Author Admin, LEE Organization [facility] Address Unknown Phone Unavailable Allergies, Adverse Reactions, [...] elsewhere classified Peripheral edema 782.3 Active Austin Albraado MD Edema Tinea corporis 110.5 Active Austin [...] Coronary atherosclerosis of unspecified type of vessel, stillaguamish or graft U R I ICD-465.9 Inactive Austin Albarado MD 06/13 Bronchitis-Acute ICD-466.0 Inactive Austin Albarado MD Medication List Medication Instructions Start Date Stop Date Generic Name NDC Status Provider Patient Instruction FUROSEMIDE 20 MG TABS 2 today and tomorrow and then 1 daily as needed for swelling FUROSEMIDE 61998182681 Active Garcia Stroud MD Active AMOXICILLIN 500 MG ORAL TABS Take one by mouth 3 times daily, morning, afternoon and evening.] AMOXICILLIN 64175695153 No Longer Active Garcia Stroud MD Active PREDNISONE 20 MG ORAL TABS 3 daily for 3 days than, 2 tabs daily for 3 days than, 2 tabs daily for 3 days than, 1 tab daily for 3 days than 1/2 tab daily for 3 days. PREDNISONE 73831200012 No Longer Active Tracie Arrington APRN Active FLUTICASONE PROPIONATE 50 MCG/ACT SUSP 1 to 2 sprays each nostril daily 08/21 FLUTICASONE PROPIONATE 67011572432 Active Simona Galloway APRN Active PREDNISONE 10 MG TAB take 1 tab po qday for severe COPD PREDNISONE 33464354125 Active Austin Albarado MD Active PREDNISONE 20 MG ORAL TABS 3 TABS PO FOR 3 DAYS,THAN 2 TABS FOR 3 DAYS THAN, 1 TAB FOR 3 DAYS THAN, 1/2 TAB FOR 3 DAYS. PREDNISONE 67813842369 No Longer Active Austin Albarado MD Active LEVAQUIN 500 MG TAB 1 tablet by mouth daily for 10 days. LEVOFLOXACIN 16004460136 No Longer Active Austin Albarado MD Active PREDNISONE 20 MG TAB take 3 tabs daily for 3 days, 2 tabs daily for 3 days, 1 tab daily for 3 days, 1/2 tab daily for 3 days PREDNISONE 87433157580 No Longer Active Simona Galloway APRN Active ZITHROMAX 1 GM ORAL PACK DIRECTED AZITHROMYCIN 59769206807 No Longer Active Simona Galloway APRN Active PREDNISONE 20 MG TAB 2 tabs daily for 4 days, 1 tab daily for 4 days, 1/2 tab daily for 4 days PREDNISONE 79393068918 No Longer Active Austin Albarado MD Active LEVAQUIN 500 MG TAB 1 tablet by mouth daily LEVOFLOXACIN 81032687868 No Longer Active Austin Albarado MD Active PREDNISONE 20 MG TAB take 3 tabs daily for 3 days, 2 tabs daily for 3 days, 1 tab daily for 3 days, 1/2 tab daily for 3 days PREDNISONE 72788527781 No Longer Active Austin Albarado MD Active DOXYCYCLINE HYCLATE 100 MG CAP 1 cap by mouth twice daily DOXYCYCLINE HYCLATE 54673661729 No Longer Active Jikatyaina Ly BOWEN Active ALBUTEROL SULFATE (2.5 MG/3ML) 0.083% NEBU nebulize 1 vial q 4-6 hours prn shortness of breath ALBUTEROL SULFATE 92108454496 No Longer Active Jillina Frashonnal DUCTFIXING PLUMBER Active TORSEMIDE 20 MG TABS 1 TAB PO BID TORSEMIDE 00866749779 No Longer Active 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 DUCTFIXING PLUMBER Active PREDNISONE 20 MG TAB 2 tabs daily for 3 days, 1 tab daily for 3 days, 1/2 tab daily for 2 days PREDNISONE 23836677763 No Longer Active Austin Albarado MD Active LEVOFLOXACIN 500 MG ORAL TABS take 1 tab po qday LEVOFLOXACIN 13766395942 No Longer Active Austin Albarado MD Active PREDNISONE 20 MG TAB 2 tablets today, then 1 tablet by mouth days 2-5 PREDNISONE 36828612101 No Longer Active Austin Albarado MD Active AZITHROMYCIN 500 MG SOLR 1 po q day AZITHROMYCIN 80492275366 No Longer Active Austin Albarado MD Active KEFLEX 500 MG CAP 1 po TID x 7 days CEPHALEXIN 43427390525 No Longer Active Tristan Vaughn MD Active EQL VISION FORMULA TABS 1 TAB PO DAILY MULTIPLE VITAMINS-MINERALS 91293164174 No Longer Active Tristan Vaughn MD Active CHANTIX STARTING MONTH ELVIS 0.5 MG X 11 & 1 MG X 42 TABS 0.5mg daily for 3 days , then 0.5mg BID for 4 days, then 1mg BID VARENICLINE TARTRATE 31409767158 No Longer Active Tristan Vaughn MD Active LEVOTHYROXINE SODIUM 200 MCG TABS 1 TAB PO DAILY LEVOTHYROXINE SODIUM 60653178524 No Longer Active Tristan Vaughn MD Active LIOTHYRONINE SODIUM 50 MCG TABS take 1 tab po qday for hypothyroidism LIOTHYRONINE SODIUM 77533266885 No Longer Active Austin Albarado MD Active SYNTHROID 0.025 MG TAB 1 tablet by mouth daily LEVOTHYROXINE SODIUM 99741513634 No Longer Active Austin Albarado MD Active ARMOUR THYROID 120 MG TABS take 1 tab po qday for hypothyroidism THYROID 80639905466 Active Austin Albarado MD Active FLONASE 50 MCG/ACT SUSP 1 spray each nostril am and hs FLUTICASONE PROPIONATE Active Simona Nilesh DUCTFIXING PLUMBER Active ZITHROMAX 1 GM PACK DIRECTED AZITHROMYCIN 82579800280 No Longer Active Austin Albarado MD Active PREDNISONE 20 MG TAB 2 tabs daily for 3 days, 1 tab daily for 3 days, 1/2 tab daily for 2 days PREDNISONE 18046948026 No Longer Active Austin Albarado MD Active ZITHROMAX 250 MG TAB 2 po today, then 1 po q days 2-5 AZITHROMYCIN 51190882460 No Longer Active Austin Albarado MD Active NYSTATIN-TRIAMCINOLONE 746344-6.1 UNIT/GM-% OINT Apply to affected area TID NYSTATIN-TRIAMCINOLONE 98174660868 Active Austin Albarado MD Active IPRATROPIUM-ALBUTEROL 0.5-2.5 (3) MG/3ML SOLN 1 VIAL NEB Q 6 HRS PRN IPRATROPIUM-ALBUTEROL 57912027039 Active Austin Albarado MD Active PROAIR HFA 108 (90 BASE) MCG/ACT AERS take 1-2 puffs q4hrs prn cough/ SOB ALBUTEROL SULFATE 34991004508 Active Austin Albarado MD Active ADVAIR DISKUS 500-50 MCG/DOSE AEPB ONE INH BID FLUTICASONE- SALMETEROL 52985365486 Active Austin Albarado MD Active ZITHROMAX 1 GM PACK DIRECTED ZITHROMAX 1 GM PACK 091799 AZITHROMYCIN Inactive SYNTHROID 0.025 MG TAB 1 tablet by mouth daily SYNTHROID 0.025 MG TAB 144272 LEVOTHYROXINE SODIUM Inactive LIOTHYRONINE SODIUM 50 MCG TABS take 1 tab po qday for hypothyroidism LIOTHYRONINE SODIUM 50 MCG TABS 646636 LIOTHYRONINE SODIUM Inactive LEVOTHYROXINE SODIUM 200 MCG TABS 1 TAB PO DAILY LEVOTHYROXINE SODIUM 200 MCG TABS 470282 LEVOTHYROXINE SODIUM Inactive CHANTIX STARTING MONTH ELVIS [...] po q day AZITHROMYCIN 500 MG SOLR 71897032343 AZITHROMYCIN Inactive PREDNISONE 20 MG TAB 2 tablets today, then 1 tablet by mouth days 2-5 PREDNISONE 20 MG TAB 838338 PREDNISONE Inactive TORSEMIDE 20 MG TABS 1 TAB PO BID TORSEMIDE 20 MG TABS 361700 TORSEMIDE Inactive ALBUTEROL SULFATE (2.5 MG/3ML) 0.083% NEBU nebulize 1 vial q 4-6 hours prn shortness of breath ALBUTEROL SULFATE (2.5 MG/3ML) 0.083% NEBU 478295 ALBUTEROL SULFATE Inactive LEVAQUIN 500 MG TAB 1 tablet by mouth daily LEVAQUIN 500 MG TAB 361857 LEVOFLOXACIN Inactive PREDNISONE 20 MG TAB 2 tabs daily for 4 days, 1 tab daily for 4 days, 1/2 tab daily for 4 days PREDNISONE 20 MG TAB 491492 PREDNISONE Inactive ZITHROMAX 1 GM ORAL PACK DIRECTED ZITHROMAX 1 GM ORAL PACK 461942 AZITHROMYCIN Inactive LEVAQUIN 500 MG TAB 1 tablet by mouth daily for 10 days. LEVAQUIN 500 MG TAB 373693 LEVOFLOXACIN Inactive PREDNISONE 20 MG ORAL TABS 3 TABS PO FOR 3 DAYS,THAN 2 TABS FOR 3 DAYS THAN, 1 TAB FOR 3 DAYS THAN, 1/2 TAB FOR 3 DAYS. PREDNISONE 20 MG ORAL TABS 956419 PREDNISONE Inactive PREDNISONE 20 MG ORAL TABS 3 daily for 3 days than, 2 tabs daily for 3 days than, 2 tabs daily for 3 days than, 1 tab daily for 3 days than 1/2 tab daily for 3 days. PREDNISONE 20 MG ORAL TABS 273757 PREDNISONE Inactive AMOXICILLIN 500 MG ORAL TABS Take one by mouth 3 times daily, morning, afternoon and evening.] AMOXICILLIN 500 MG ORAL TABS 105692 AMOXICILLIN Inactive ZITHROMAX 250 MG TAB 2 po today, then 1 po q days 2-5 ZITHROMAX 250 MG TAB 3875820 AZITHROMYCIN Inactive PREDNISONE 20 MG TAB 2 tabs daily for 3 days, 1 tab daily for 3 days, 1/2 tab daily for 2 days PREDNISONE 20 MG TAB 032665 PREDNISONE Inactive KEFLEX 500 MG CAP 1 po TID x 7 days KEFLEX 500 MG CAP 066729 CEPHALEXIN Inactive LEVOFLOXACIN 500 MG ORAL TABS take 1 tab po qday LEVOFLOXACIN 500 MG ORAL TABS 826472 LEVOFLOXACIN Inactive PREDNISONE 20 MG TAB 2 tabs daily for 3 days, 1 tab daily for 3 days, 1/2 tab daily for 2 days PREDNISONE 20 MG TAB 454008 PREDNISONE Inactive DOXYCYCLINE HYCLATE 100 MG CAP 1 cap by mouth twice daily DOXYCYCLINE HYCLATE 100 MG CAP 7273063 DOXYCYCLINE HYCLATE Inactive PREDNISONE 20 MG TAB take 3 tabs daily for 3 days, 2 tabs daily for 3 days, 1 tab daily for 3 days, 1/2 tab daily for 3 days PREDNISONE 20 MG TAB 657319 PREDNISONE Inactive PREDNISONE 20 MG TAB take 3 tabs daily for 3 days, 2 tabs daily for 3 days, 1 tab daily for 3 days, 1/2 tab daily for 3 days PREDNISONE 20 MG TAB 851756 PREDNISONE Inactive Advance Directives Directive Description Start [...] ... - Chemistry cholesterol, serum 136 mg/dL 139-233 3497/10/06 triglyceride, serum, fasting 30 mg/dL 30-200 HDL cholesterol, serum 57 mg/dL 32-96 LDL cholesterol, serum 73 mg/dL 0-130 prostate specific antigen 1.45 ng/mL 0.00-4.00 thyroxine, serum, free 0.80 ng/dL 0.76-1.46 TSH 14.03 m[iU]/mL 0.36-3.74 Lab Report: Thyroid Stimulating Hormone (L), Comp. Metabolic Panel, CBC, ... - Chemistry TSH 43.52 m[iU]/mL 0.36-3.74 sodium, serum 140 mmol/L 334-019 3445/04/06 carbon dioxide, venous blood 36.3 mmol/L 21.0-32.0 potassium, serum 4.9 mmol/L 3.5-5.2 chloride, serum 100 mmol/L 98-107 blood glucose 62 mg/dL 65-110 urea nitrogen, blood 24 mg/dL 7-18 creatinine, serum 1.09 mg/dL 0.55-1.30 alanine aminotransferase (SGPT), serum 44 U/L 12-78 aspartate aminotransferase (SGOT), serum 25 U/L 15-37 calcium, serum 8.7 mg/dL 8.5-10.1 bilirubin, serum, total 0.50 mg/dL 0.00-1.00 cholesterol, serum 189 mg/dL 423-040 2280/04/06 triglyceride, serum, fasting 117 mg/dL 30-200 HDL [...] 142-424 Encounters Code Encounter Date Provider Facility CPT-70035 Level 4 Est. Patient 23:08:56 CDT Austin Albarado MD [facility] CPT-13689 Level 4 Est. Patient 13:27:28 CDT Garcia Stroud MD [facility] CPT-63107 Level 4 Est. Patient 10:51:20 CDT Austin Albarado MD [facility] CPT-42831 Level 4 Est. Patient 20:09:43 PIT SUPERVISOR Austin Albarado MD [facility] CPT-62348 Level 4 Est. Patient 21:00:28 CDT Austin Albarado MD [facility] CPT-71002 Level 4 Est. Patient 10:03:37 CDT Austin Albarado MD [facility] CPT-92539 Level 3 Est. Patient 10:50:28 PIT SUPERVISOR Austin Albarado MD [facility] CPT-57039 Level 4 Est. Patient 21:31:41 PIT SUPERVISOR Austin Albarado MD [facility] CPT-28129 Level 3 Est. Patient 16:22:54 PIT SUPERVISOR Jann Law DO [facility] CPT-24795 Level 3 Est. Patient 11:04:53 PIT SUPERVISOR Tristan Vaughn MD [facility] CPT-64551 Level 4 Est. Patient 09:50:59 CDT Austin Albarado MD [facility] CPT-17638 Level 4 Est. Patient 09:29:00 CDT Austin Albarado MD [facility] CPT-48732 Level 4 Est. Patient 14:23:07 CDT Austin Albarado MD [facility] CPT-62290 Level 4 Est. Patient 14:27:26 CDT Austin Albarado MD [facility] CPT-65500 Level 4 Est. Patient 12:51:43 PIT SUPERVISOR Austin Albarado MD [facility] CPT-73854 Level 3 New Patient 14:17:38 PIT SUPERVISOR Austin Albarado MD [facility] CPT-43479 Level 3 New Patient 11:28:18 PIT SUPERVISOR Austin Albarado MD [facility] Procedures Code Procedure Name Date Entry Date Standard Description CPT-G0009 Administration of Pneumococcal Vaccine 13:25:27 CDT CPT-36211 Prevnar 13 Intramuscular Suspension 13:25:27 CDT 09/26 CPT-G0438 Initial Annual Wellness Exam 11:28:26 CDT CPT-62130 Chest 2V Frontal and Lat 15:00:00 PIT SUPERVISOR CPT-80461 Breathing Tx 14:49:25 PIT SUPERVISOR CPT-88297 Fluzone High Dose 15:08:41 PIT SUPERVISOR CPT-51317 Immunization Single Admin 15:08:41 PIT SUPERVISOR CPT-00096 Fluzone High Dose 17:31:19 CDT CPT-64173 Administration single or combination vaccine inc oral 17 :31:19 CDT CPT-40154 Venipuncture Draw Fee 11:03:05 CDT CPT-TCMM Transitional Care Mgmt-Moderate 16:32:35 CDT CPT-30492 Chest 2V Frontal and Lat 11:51:09 CDT CPT-G0008 Administration of Influenza Virus Vaccine 15:09:08 CDT CPT-85269 Fluzone High-Dose Intramuscular Suspension 15:09:08 CDT CPT-58798 Administration single or combination vaccine inc oral 17 :07:02 PIT SUPERVISOR CPT-90520 Influenza High Dose age 65+ 17:07:02 PIT SUPERVISOR
--- OUTSIDE RECORDS SUMMARY | 2017-02-27 22:40 | XMS REPORT | Clinical Summary ---
[...] Coronary atherosclerosis of unspecified type of vessel, lumbee or graft U R I ICD-465.9 Inactive Austin Albarado MD 06/13 Bronchitis-Acute ICD-466.0 Inactive Austin Albarado MD Medication List Medication Instructions Start Date Stop Date Generic Name NDC Status Provider Patient Instruction FUROSEMIDE 20 MG TABS 2 today and tomorrow and then 1 daily as needed for swelling FUROSEMIDE 58201190275 Active Garcia Stroud MD Active AMOXICILLIN 500 MG ORAL TABS Take one by mouth 3 times daily, morning, afternoon and evening.] AMOXICILLIN 48218654286 No Longer Active Garcia Stroud MD Active PREDNISONE 20 MG ORAL TABS 3 daily for 3 days than, 2 tabs daily for 3 days than, 2 tabs daily for 3 days than, 1 tab daily for 3 days than 1/2 tab daily for 3 days. PREDNISONE 36613275249 No Longer Active Tracie Arrington APRN Active FLUTICASONE PROPIONATE 50 MCG/ACT SUSP 1 to 2 sprays each nostril daily 08/21 FLUTICASONE PROPIONATE 32754280518 Active Simona Galloway APRN Active PREDNISONE 10 MG TAB take 1 tab po qday for severe COPD PREDNISONE 24270127660 Active Austin Albarado MD Active PREDNISONE 20 MG ORAL TABS 3 TABS PO FOR 3 DAYS,THAN 2 TABS FOR 3 DAYS THAN, 1 TAB FOR 3 DAYS THAN, 1/2 TAB FOR 3 DAYS. PREDNISONE 43352837681 No Longer Active Austin Albarado MD Active LEVAQUIN 500 MG TAB 1 tablet by mouth daily for 10 days. LEVOFLOXACIN 00367335783 No Longer Active Austin Albarado MD Active PREDNISONE 20 MG TAB take 3 tabs daily for 3 days, 2 tabs daily for 3 days, 1 tab daily for 3 days, 1/2 tab daily for 3 days PREDNISONE 50368907435 No Longer Active Simona Galloway APRN Active ZITHROMAX 1 GM ORAL PACK DIRECTED AZITHROMYCIN 64331009331 No Longer Active Simona Galloway APRN Active PREDNISONE 20 MG TAB 2 tabs daily for 4 days, 1 tab daily for 4 days, 1/2 tab daily for 4 days PREDNISONE 81054341576 No Longer Active Austin Albarado MD Active LEVAQUIN 500 MG TAB 1 tablet by mouth daily LEVOFLOXACIN 35321951548 No Longer Active Austin Albarado MD Active PREDNISONE 20 MG TAB take 3 tabs daily for 3 days, 2 tabs daily for 3 days, 1 tab daily for 3 days, 1/2 tab daily for 3 days PREDNISONE 24456706469 No Longer Active Austin Albarado MD Active DOXYCYCLINE HYCLATE 100 MG CAP 1 cap by mouth twice daily DOXYCYCLINE HYCLATE 58494786047 No Longer Active Jikatyaina Ly BOWEN Active ALBUTEROL SULFATE (2.5 MG/3ML) 0.083% NEBU nebulize 1 vial q 4-6 hours prn shortness of breath ALBUTEROL SULFATE 81974306658 No Longer Active 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 INSURANCE COUNSELOR Active TORSEMIDE 20 MG TABS 1 TAB PO BID TORSEMIDE 05117907050 No Longer Active Jillina Frashonnal INSURANCE COUNSELOR Active PREDNISONE 20 MG TAB 2 tabs daily for 3 days, 1 tab daily for 3 days, 1/2 tab daily for 2 days PREDNISONE 53065406196 No Longer Active Austin Albarado MD Active LEVOFLOXACIN 500 MG ORAL TABS take 1 tab po qday LEVOFLOXACIN 37968156136 No Longer Active Austin Albarado MD Active PREDNISONE 20 MG TAB 2 tablets today, then 1 tablet by mouth days 2-5 PREDNISONE 95489523637 No Longer Active Austin Albarado MD Active AZITHROMYCIN 500 MG SOLR 1 po q day AZITHROMYCIN 21848815274 No Longer Active Austin Albarado MD Active KEFLEX 500 MG CAP 1 po TID x 7 days CEPHALEXIN 94842875150 No Longer Active Tristan Vaughn MD Active EQL VISION FORMULA TABS 1 TAB PO DAILY MULTIPLE VITAMINS-MINERALS 73852174161 No Longer Active Tristan Vaughn MD Active CHANTIX STARTING MONTH ELVIS 0.5 MG X 11 & 1 MG X 42 TABS 0.5mg daily for 3 days , then 0.5mg BID for 4 days, then 1mg BID VARENICLINE TARTRATE 35060477272 No Longer Active Tristan Vaughn MD Active LEVOTHYROXINE SODIUM 200 MCG TABS 1 TAB PO DAILY LEVOTHYROXINE SODIUM 90649669654 No Longer Active Tristan Vaughn MD Active LIOTHYRONINE SODIUM 50 MCG TABS take 1 tab po qday for hypothyroidism LIOTHYRONINE SODIUM 73825377815 No Longer Active Austin Albarado MD Active SYNTHROID 0.025 MG TAB 1 tablet by mouth daily LEVOTHYROXINE SODIUM 48735480824 No Longer Active Austin Albarado MD Active ARMOUR THYROID 120 MG TABS take 1 tab po qday for hypothyroidism THYROID 25249450161 Active Austin Albarado MD Active FLONASE 50 MCG/ACT SUSP 1 spray each nostril am and hs FLUTICASONE PROPIONATE Active Simona Nilesh INSURANCE COUNSELOR Active ZITHROMAX 1 GM PACK DIRECTED AZITHROMYCIN 85469815020 No Longer Active Austin Albarado MD Active PREDNISONE 20 MG TAB 2 tabs daily for 3 days, 1 tab daily for 3 days, 1/2 tab daily for 2 days PREDNISONE 84990708886 No Longer Active Austin Albarado MD Active ZITHROMAX 250 MG TAB 2 po today, then 1 po q days 2-5 AZITHROMYCIN 45528829388 No Longer Active Austin Albarado MD Active NYSTATIN-TRIAMCINOLONE 194921-9.1 UNIT/GM-% OINT Apply to affected area TID NYSTATIN-TRIAMCINOLONE 19762655281 Active Austin Albarado MD Active IPRATROPIUM-ALBUTEROL 0.5-2.5 (3) MG/3ML SOLN 1 VIAL NEB Q 6 HRS PRN IPRATROPIUM-ALBUTEROL 54980033659 Active Austin Albarado MD Active PROAIR HFA 108 (90 BASE) MCG/ACT AERS take 1-2 puffs q4hrs prn cough/ SOB ALBUTEROL SULFATE 98176592391 Active Austin Albarado MD Active ADVAIR DISKUS 500-50 MCG/DOSE AEPB ONE INH BID FLUTICASONE- SALMETEROL 76031267888 Active Austin Albarado MD Active ZITHROMAX 1 GM PACK DIRECTED ZITHROMAX 1 GM PACK 760740 AZITHROMYCIN Inactive SYNTHROID 0.025 MG TAB 1 tablet by mouth daily SYNTHROID 0.025 MG TAB 150467 LEVOTHYROXINE SODIUM Inactive LIOTHYRONINE SODIUM 50 MCG TABS take 1 tab po qday for hypothyroidism LIOTHYRONINE SODIUM 50 MCG TABS 326971 LIOTHYRONINE SODIUM Inactive LEVOTHYROXINE SODIUM 200 MCG TABS 1 TAB PO DAILY LEVOTHYROXINE SODIUM 200 MCG TABS 464275 LEVOTHYROXINE SODIUM Inactive CHANTIX STARTING MONTH ELVIS [...] po q day AZITHROMYCIN 500 MG SOLR 20309264288 AZITHROMYCIN Inactive PREDNISONE 20 MG TAB 2 tablets today, then 1 tablet by mouth days 2-5 PREDNISONE 20 MG TAB 898297 PREDNISONE Inactive TORSEMIDE 20 MG TABS 1 TAB PO BID TORSEMIDE 20 MG TABS 166822 TORSEMIDE Inactive ALBUTEROL SULFATE (2.5 MG/3ML) 0.083% NEBU nebulize 1 vial q 4-6 hours prn shortness of breath ALBUTEROL SULFATE (2.5 MG/3ML) 0.083% NEBU 525307 ALBUTEROL SULFATE Inactive LEVAQUIN 500 MG TAB 1 tablet by mouth daily LEVAQUIN 500 MG TAB 758013 LEVOFLOXACIN Inactive PREDNISONE 20 MG TAB 2 tabs daily for 4 days, 1 tab daily for 4 days, 1/2 tab daily for 4 days PREDNISONE 20 MG TAB 706835 PREDNISONE Inactive ZITHROMAX 1 GM ORAL PACK DIRECTED ZITHROMAX 1 GM ORAL PACK 459538 AZITHROMYCIN Inactive LEVAQUIN 500 MG TAB 1 tablet by mouth daily for 10 days. LEVAQUIN 500 MG TAB 000014 LEVOFLOXACIN Inactive PREDNISONE 20 MG ORAL TABS 3 TABS PO FOR 3 DAYS,THAN 2 TABS FOR 3 DAYS THAN, 1 TAB FOR 3 DAYS THAN, 1/2 TAB FOR 3 DAYS. PREDNISONE 20 MG ORAL TABS 513084 PREDNISONE Inactive PREDNISONE 20 MG ORAL TABS 3 daily for 3 days than, 2 tabs daily for 3 days than, 2 tabs daily for 3 days than, 1 tab daily for 3 days than 1/2 tab daily for 3 days. PREDNISONE 20 MG ORAL TABS 717619 PREDNISONE Inactive AMOXICILLIN 500 MG ORAL TABS Take one by mouth 3 times daily, morning, afternoon and evening.] AMOXICILLIN 500 MG ORAL TABS 284927 AMOXICILLIN Inactive ZITHROMAX 250 MG TAB 2 po today, then 1 po q days 2-5 ZITHROMAX 250 MG TAB 1461870 AZITHROMYCIN Inactive PREDNISONE 20 MG TAB 2 tabs daily for 3 days, 1 tab daily for 3 days, 1/2 tab daily for 2 days PREDNISONE 20 MG TAB 588211 PREDNISONE Inactive KEFLEX 500 MG CAP 1 po TID x 7 days KEFLEX 500 MG CAP 299201 CEPHALEXIN Inactive LEVOFLOXACIN 500 MG ORAL TABS take 1 tab po qday LEVOFLOXACIN 500 MG ORAL TABS 342990 LEVOFLOXACIN Inactive PREDNISONE 20 MG TAB 2 tabs daily for 3 days, 1 tab daily for 3 days, 1/2 tab daily for 2 days PREDNISONE 20 MG TAB 435992 PREDNISONE Inactive DOXYCYCLINE HYCLATE 100 MG CAP 1 cap by mouth twice daily DOXYCYCLINE HYCLATE 100 MG CAP 7941155 DOXYCYCLINE HYCLATE Inactive PREDNISONE 20 MG TAB take 3 tabs daily for 3 days, 2 tabs daily for 3 days, 1 tab daily for 3 days, 1/2 tab daily for 3 days PREDNISONE 20 MG TAB 307906 PREDNISONE Inactive PREDNISONE 20 MG TAB take 3 tabs daily for 3 days, 2 tabs daily for 3 days, 1 tab daily for 3 days, 1/2 tab daily for 3 days PREDNISONE 20 MG TAB 877485 PREDNISONE Inactive Advance Directives Directive Description Start [...] ... - Chemistry cholesterol, serum 136 mg/dL 155-469 1547/10/06 triglyceride, serum, fasting 30 mg/dL 30-200 HDL cholesterol, serum 57 mg/dL 32-96 LDL cholesterol, serum 73 mg/dL 0-130 prostate specific antigen 1.45 ng/mL 0.00-4.00 thyroxine, serum, free 0.80 ng/dL 0.76-1.46 TSH 14.03 m[iU]/mL 0.36-3.74 Lab Report: Thyroid Stimulating Hormone (L), Comp. Metabolic Panel, CBC, ... - Chemistry TSH 43.52 m[iU]/mL 0.36-3.74 sodium, serum 140 mmol/L 817-495 2020/04/06 carbon dioxide, venous blood 36.3 mmol/L 21.0-32.0 potassium, serum 4.9 mmol/L 3.5-5.2 chloride, serum 100 mmol/L 98-107 blood glucose 62 mg/dL 65-110 urea nitrogen, blood 24 mg/dL 7-18 creatinine, serum 1.09 mg/dL 0.55-1.30 alanine aminotransferase (SGPT), serum 44 U/L 12-78 aspartate aminotransferase (SGOT), serum 25 U/L 15-37 calcium, serum 8.7 mg/dL 8.5-10.1 bilirubin, serum, total 0.50 mg/dL 0.00-1.00 cholesterol, serum 189 mg/dL 813-945 9471/04/06 triglyceride, serum, fasting 117 mg/dL 30-200 HDL [...] 142-424 Encounters Code Encounter Date Provider Facility CPT-91596 Level 4 Est. Patient 13:27:28 CDT Garcia Stroud MD [facility] CPT-13467 Level 4 Est. Patient 10:51:20 CDT Austin Albarado MD [facility] CPT-24405 Level 4 Est. Patient 20:09:43 LINE PRODUCTION COOK Austin Albarado MD [facility] CPT-28034 Level 4 Est. Patient 21:00:28 CDT Austin Albarado MD [facility] CPT-31618 Level 4 Est. Patient 10:03:37 CDT Austin Albarado MD [facility] CPT-36304 Level 3 Est. Patient 10:50:28 LINE PRODUCTION COOK Austin Albarado MD [facility] CPT-85181 Level 4 Est. Patient 21:31:41 LINE PRODUCTION COOK Austin Albarado MD [facility] CPT-55355 Level 3 Est. Patient 16:22:54 LINE PRODUCTION COOK Jann Law DO [facility] CPT-12629 Level 3 Est. Patient 11:04:53 LINE PRODUCTION COOK Tristan Vaughn MD [facility] CPT-86305 Level 4 Est. Patient 09:50:59 CDT Austin Albarado MD [facility] CPT-54958 Level 4 Est. Patient 09:29:00 CDT Austin Albarado MD [facility] CPT-25389 Level 4 Est. Patient 14:23:07 CDT Austin Albarado MD [facility] CPT-92904 Level 4 Est. Patient 14:27:26 CDT Austin Albarado MD [facility] CPT-86841 Level 4 Est. Patient 12:51:43 LINE PRODUCTION COOK Austin Albarado MD [facility] CPT-63085 Level 3 New Patient 14:17:38 LINE PRODUCTION COOK Austin Albarado MD [facility] CPT-45423 Level 3 New Patient 11:28:18 LINE PRODUCTION COOK Austin Albarado MD [facility] Procedures Code Procedure Name Date Entry Date Standard Description CPT-G0009 Administration of Pneumococcal Vaccine 13:25:27 CDT CPT-25342 Prevnar 13 Intramuscular Suspension 13:25:27 CDT 09/26 CPT-G0438 Initial Annual Wellness Exam 11:28:26 CDT CPT-18539 Chest 2V Frontal and Lat 15:00:00 LINE PRODUCTION COOK CPT-55320 Breathing Tx 14:49:25 LINE PRODUCTION COOK CPT-34764 Fluzone High Dose 15:08:41 LINE PRODUCTION COOK CPT-89267 Immunization Single Admin 15:08:41 LINE PRODUCTION COOK CPT-06550 Fluzone High Dose 17:31:19 CDT CPT-05796 Administration single or combination vaccine inc oral 17 :31:19 CDT CPT-36516 Venipuncture Draw Fee 11:03:05 CDT CPT-TCMM Transitional Care Mgmt-Moderate 16:32:35 CDT CPT-05921 Chest 2V Frontal and Lat 11:51:09 CDT CPT-G0008 Administration of Influenza Virus Vaccine 15:09:08 CDT CPT-24298 Fluzone High-Dose Intramuscular Suspension 15:09:08 CDT CPT-39045 Administration single or combination vaccine inc oral 17 :07:02 LINE PRODUCTION COOK CPT-40690 Influenza High Dose age 65+ 17:07:02 LINE PRODUCTION COOK
--- OUTSIDE RECORDS SUMMARY | 2017-02-27 22:40 | XMS REPORT | Clinical Summary ---
Author Author Admin, DILLONE Organization [employer] Address Unknown Phone Unavailable Allergies, Adverse Reactions, [...] Coronary atherosclerosis of unspecified type of vessel, [place] or graft Peripheral edema 782.3 Active Austin Albarado MD Edema U R I ICD-465.9 Inactive Austin Albarado MD 06/13 Bronchitis-Acute ICD-466.0 Inactive Austin Albarado MD Medication List Medication Instructions Start Date Stop Date Generic Name NDC Status Provider Patient Instruction LEVAQUIN 500 MG TAB 1 tablet by mouth daily LEVOFLOXACIN 88413545241 Active Madhavi Raida Active LEVAQUIN 500 MG TAB 1 tablet by mouth daily LEVOFLOXACIN 11419087368 No Longer Active Madhaviavis Fiore Active FUROSEMIDE 20 MG TABS take 1 tab po BID for swelling FUROSEMIDE 48839474509 Active Austin Albarado MD Active PREDNISONE 20 MG ORAL TABS 3 tabs po for 3 days than,2 tabs po for 3 days,1 tab po for 3 days, 1/2 tab po for 3 days. PREDNISONE 46416690611 Active Madhavi Razamzam Active AMOXICILLIN 500 MG ORAL TABS Take one by mouth 3 times daily, morning, afternoon and evening.] AMOXICILLIN 40444102138 No Longer Active Garcia Stroud MD Active PREDNISONE 20 MG ORAL TABS 3 daily for 3 days than, 2 tabs daily for 3 days than, 2 tabs daily for 3 days than, 1 tab daily for 3 days than 1/2 tab daily for 3 days. PREDNISONE 22794056321 No Longer Active Tracie Arrington APRN Active FLUTICASONE PROPIONATE 50 MCG/ACT SUSP 1 to 2 sprays each nostril daily 08/21 FLUTICASONE PROPIONATE 09745893202 Active Simona Galloway APRN Active PREDNISONE 10 MG TAB take 1 tab po qday for severe COPD PREDNISONE 07984327168 Active Austin Albarado MD Active PREDNISONE 20 MG ORAL TABS 3 TABS PO FOR 3 DAYS,THAN 2 TABS FOR 3 DAYS THAN, 1 TAB FOR 3 DAYS THAN, 1/2 TAB FOR 3 DAYS. PREDNISONE 78135477051 No Longer Active Austin Albarado MD Active LEVAQUIN 500 MG TAB 1 tablet by mouth daily for 10 days. LEVOFLOXACIN 25431116515 No Longer Active Austin Albarado MD Active PREDNISONE 20 MG TAB take 3 tabs daily for 3 days, 2 tabs daily for 3 days, 1 tab daily for 3 days, 1/2 tab daily for 3 days PREDNISONE 17719766208 No Longer Active Simona Galloway APRN Active ZITHROMAX 1 GM ORAL PACK DIRECTED AZITHROMYCIN 06749956507 No Longer Active Simona Galloway APRN Active PREDNISONE 20 MG TAB 2 tabs daily for 4 days, 1 tab daily for 4 days, 1/2 tab daily for 4 days PREDNISONE 78654763409 No Longer Active Austin Albarado MD Active LEVAQUIN 500 MG TAB 1 tablet by mouth daily LEVOFLOXACIN 91447240624 No Longer Active Austin Albarado MD Active PREDNISONE 20 MG TAB take 3 tabs daily for 3 days, 2 tabs daily for 3 days, 1 tab daily for 3 days, 1/2 tab daily for 3 days PREDNISONE 16312728998 No Longer Active Austin Albarado MD Active DOXYCYCLINE HYCLATE 100 MG CAP 1 cap by mouth twice daily DOXYCYCLINE HYCLATE 69019078578 No Longer Active 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 RETORT OPERATOR Active ALBUTEROL SULFATE (2.5 MG/3ML) 0.083% NEBU nebulize 1 vial q 4-6 hours prn shortness of breath ALBUTEROL SULFATE 26080650879 No Longer Active Joshllina Ly RETORT OPERATOR Active TORSEMIDE 20 MG TABS 1 TAB PO BID TORSEMIDE 38648606449 No Longer Active Joshllaftab Modi RETORT OPERATOR Active PREDNISONE 20 MG TAB 2 tabs daily for 3 days, 1 tab daily for 3 days, 1/2 tab daily for 2 days PREDNISONE 98446141727 No Longer Active Austin Albarado MD Active LEVOFLOXACIN 500 MG ORAL TABS take 1 tab po qday LEVOFLOXACIN 34935008086 No Longer Active Austin Albarado MD Active PREDNISONE 20 MG TAB 2 tablets today, then 1 tablet by mouth days 2-5 PREDNISONE 57076489510 No Longer Active Austin Albarado MD Active AZITHROMYCIN 500 MG SOLR 1 po q day AZITHROMYCIN 85320617292 No Longer Active Austin Albarado MD Active KEFLEX 500 MG CAP 1 po TID x 7 days CEPHALEXIN 45377804567 No Longer Active Tristan Vaughn MD Active EQL VISION FORMULA TABS 1 TAB PO DAILY MULTIPLE VITAMINS-MINERALS 50512700725 No Longer Active Tristan Vaughn MD Active CHANTIX STARTING MONTH ELVIS 0.5 MG X 11 & 1 MG X 42 TABS 0.5mg daily for 3 days , then 0.5mg BID for 4 days, then 1mg BID VARENICLINE TARTRATE 79301852520 No Longer Active Tristan Vaughn MD Active LEVOTHYROXINE SODIUM 200 MCG TABS 1 TAB PO DAILY LEVOTHYROXINE SODIUM 63420792195 No Longer Active Tristan Vaughn MD Active LIOTHYRONINE SODIUM 50 MCG TABS take 1 tab po qday for hypothyroidism LIOTHYRONINE SODIUM 74326242701 No Longer Active Austin Albarado MD Active SYNTHROID 0.025 MG TAB 1 tablet by mouth daily LEVOTHYROXINE SODIUM 17754473569 No Longer Active Austin Albarado MD Active ARMOUR THYROID 120 MG TABS take 1 tab po qday for hypothyroidism THYROID 21915590617 Active Austin Albarado MD Active FLONASE 50 MCG/ACT SUSP 1 spray each nostril am and hs FLUTICASONE PROPIONATE Active Simona Galloway APRN Active ZITHROMAX 1 GM PACK DIRECTED AZITHROMYCIN 70810045625 No Longer Active Austin Albarado MD Active PREDNISONE 20 MG TAB 2 tabs daily for 3 days, 1 tab daily for 3 days, 1/2 tab daily for 2 days PREDNISONE 05207554648 No Longer Active Austin Albarado MD Active ZITHROMAX 250 MG TAB 2 po today, then 1 po q days 2-5 AZITHROMYCIN 37748932421 No Longer Active Austin Albarado MD Active NYSTATIN-TRIAMCINOLONE 186083-6.1 UNIT/GM-% OINT Apply to affected area TID NYSTATIN-TRIAMCINOLONE 97157170837 Active Austin Albarado MD Active IPRATROPIUM-ALBUTEROL 0.5-2.5 (3) MG/3ML SOLN 1 VIAL NEB Q 6 HRS PRN IPRATROPIUM-ALBUTEROL 17677583447 Active Simona Galloway APRN Active PROAIR HFA 108 (90 BASE) MCG/ACT AERS take 1-2 puffs q4hrs prn cough/ SOB ALBUTEROL SULFATE 04175763933 Active Austin Albarado MD Active ADVAIR DISKUS 500-50 MCG/DOSE AEPB ONE INH BID FLUTICASONE- SALMETEROL 57517098575 Active Austin Albarado MD Active ZITHROMAX 1 GM PACK DIRECTED ZITHROMAX 1 GM PACK 306161 AZITHROMYCIN Inactive SYNTHROID 0.025 MG TAB 1 tablet by mouth daily SYNTHROID 0.025 MG TAB 508647 LEVOTHYROXINE SODIUM Inactive LIOTHYRONINE SODIUM 50 MCG TABS take 1 tab po qday for hypothyroidism LIOTHYRONINE SODIUM 50 MCG TABS 312209 LIOTHYRONINE SODIUM Inactive LEVOTHYROXINE SODIUM 200 MCG TABS 1 TAB PO DAILY LEVOTHYROXINE SODIUM 200 MCG TABS 245154 LEVOTHYROXINE SODIUM Inactive CHANTIX STARTING MONTH ELVIS [...] po q day AZITHROMYCIN 500 MG SOLR 55108486143 AZITHROMYCIN Inactive PREDNISONE 20 MG TAB 2 tablets today, then 1 tablet by mouth days 2-5 PREDNISONE 20 MG TAB 988230 PREDNISONE Inactive TORSEMIDE 20 MG TABS 1 TAB PO BID TORSEMIDE 20 MG TABS 707816 TORSEMIDE Inactive ALBUTEROL SULFATE (2.5 MG/3ML) 0.083% NEBU nebulize 1 vial q 4-6 hours prn shortness of breath ALBUTEROL SULFATE (2.5 MG/3ML) 0.083% NEBU 257149 ALBUTEROL SULFATE Inactive LEVAQUIN 500 MG TAB 1 tablet by mouth daily LEVAQUIN 500 MG TAB 785136 LEVOFLOXACIN Inactive PREDNISONE 20 MG TAB 2 tabs daily for 4 days, 1 tab daily for 4 days, 1/2 tab daily for 4 days PREDNISONE 20 MG TAB 602314 PREDNISONE Inactive ZITHROMAX 1 GM ORAL PACK DIRECTED ZITHROMAX 1 GM ORAL PACK 356191 AZITHROMYCIN Inactive LEVAQUIN 500 MG TAB 1 tablet by mouth daily for 10 days. LEVAQUIN 500 MG TAB 143907 LEVOFLOXACIN Inactive PREDNISONE 20 MG ORAL TABS 3 TABS PO FOR 3 DAYS,THAN 2 TABS FOR 3 DAYS THAN, 1 TAB FOR 3 DAYS THAN, 1/2 TAB FOR 3 DAYS. PREDNISONE 20 MG ORAL TABS 323304 PREDNISONE Inactive PREDNISONE 20 MG ORAL TABS 3 daily for 3 days than, 2 tabs daily for 3 days than, 2 tabs daily for 3 days than, 1 tab daily for 3 days than 1/2 tab daily for 3 days. PREDNISONE 20 MG ORAL TABS 298912 PREDNISONE Inactive AMOXICILLIN 500 MG ORAL TABS Take one by mouth 3 times daily, morning, afternoon and evening.] AMOXICILLIN 500 MG ORAL TABS 952508 AMOXICILLIN Inactive LEVAQUIN 500 MG TAB 1 tablet by mouth daily LEVAQUIN 500 MG TAB 773393 LEVOFLOXACIN Inactive ZITHROMAX 250 MG TAB 2 po today, then 1 po q days 2-5 ZITHROMAX 250 MG TAB 8639555 AZITHROMYCIN Inactive PREDNISONE 20 MG TAB 2 tabs daily for 3 days, 1 tab daily for 3 days, 1/2 tab daily for 2 days PREDNISONE 20 MG TAB 816624 PREDNISONE Inactive KEFLEX 500 MG CAP 1 po TID x 7 days KEFLEX 500 MG CAP 687273 CEPHALEXIN Inactive LEVOFLOXACIN 500 MG ORAL TABS take 1 tab po qday LEVOFLOXACIN 500 MG ORAL TABS 225367 LEVOFLOXACIN Inactive PREDNISONE 20 MG TAB 2 tabs daily for 3 days, 1 tab daily for 3 days, 1/2 tab daily for 2 days PREDNISONE 20 MG TAB 541436 PREDNISONE Inactive DOXYCYCLINE HYCLATE 100 MG CAP 1 cap by mouth twice daily DOXYCYCLINE HYCLATE 100 MG CAP 5305605 DOXYCYCLINE HYCLATE Inactive PREDNISONE 20 MG TAB take 3 tabs daily for 3 days, 2 tabs daily for 3 days, 1 tab daily for 3 days, 1/2 tab daily for 3 days PREDNISONE 20 MG TAB 317664 PREDNISONE Inactive PREDNISONE 20 MG TAB take 3 tabs daily for 3 days, 2 tabs daily for 3 days, 1 tab daily for 3 days, 1/2 tab daily for 3 days PREDNISONE 20 MG TAB 040703 PREDNISONE Inactive Advance Directives Directive Description Start [...] 0.50 mg/dL 0.00-1.00 cholesterol, serum 189 mg/dL 592-989 6815/04/06 triglyceride, serum, fasting 117 mg/dL 30-200 HDL cholesterol, serum 70 mg/dL 32-96 LDL cholesterol, serum 96 mg/dL 0-130 chloride, serum 100 mmol/L 98-107 potassium, serum 4.9 mmol/L 3.5-5.2 carbon dioxide, venous blood 36.3 mmol/L 21.0-32.0 sodium, serum 140 mmol/L 905-713 1927/04/06 TSH 43.52 m[iU]/mL 0.36-3.74 Lab Report: Thyroid [...] [phone] Encounters Code Encounter Date Provider Facility CPT-55030 Level 4 Est. Patient 16:11:14 DENTAL EQUIPMENT TECHNICIAN Austin Albarado MD [facility] CPT-52683 Level 4 Est. Patient 23:08:56 CDT Austin Albarado MD [facility] CPT-69509 Level 4 Est. Patient 13:27:28 CDT Garcia Stroud MD [facility] CPT-30563 Level 4 Est. Patient 10:51:20 CDT Austin Albarado MD [facility] CPT-58267 Level 4 Est. Patient 20:09:43 DENTAL EQUIPMENT TECHNICIAN Austin Albarado MD [facility] CPT-73422 Level 4 Est. Patient 21:00:28 CDT Austin Albarado MD [facility] CPT-06325 Level 4 Est. Patient 10:03:37 CDT Austin Albarado MD [facility] CPT-12488 Level 3 Est. Patient 10:50:28 DENTAL EQUIPMENT TECHNICIAN Austin Albarado MD [facility] CPT-26462 Level 4 Est. Patient 21:31:41 DENTAL EQUIPMENT TECHNICIAN Austin Ablarado MD [facility] CPT-28278 Level 3 Est. Patient 16:22:54 DENTAL EQUIPMENT TECHNICIAN Jann Law DO [facility] CPT-09576 Level 3 Est. Patient 11:04:53 DENTAL EQUIPMENT TECHNICIAN Tristan Vaughn MD [facility] CPT-62571 Level 4 Est. Patient 09:50:59 CDT Austin Albarado MD [facility] CPT-47524 Level 4 Est. Patient 09:29:00 CDT Austin Albarado MD [facility] CPT-27874 Level 4 Est. Patient 14:23:07 CDT Austin Albarado MD [facility] CPT-48019 Level 4 Est. Patient 14:27:26 CDT Austin Albarado MD [facility] CPT-08561 Level 4 Est. Patient 12:51:43 DENTAL EQUIPMENT TECHNICIAN Austin Albarado MD [facility] CPT-63154 Level 3 New Patient 14:17:38 DENTAL EQUIPMENT TECHNICIAN Austin Albarado MD [facility] CPT-48511 Level 3 New Patient 11:28:18 DENTAL EQUIPMENT TECHNICIAN Austin Albarado MD [facility] Procedures Code Procedure Name Date Entry Date Standard Description CPT-51510 First Vx - Ix admin for Medicare patients 16:00:49 CDT CPT-52379 Fluzone High-Dose Intramuscular Suspension 16:00:49 CDT CPT-G0009 Administration of Pneumococcal Vaccine 13:25:27 CDT CPT-68396 Prevnar 13 Intramuscular Suspension 13:25:27 CDT 09/26 CPT-G0438 Initial Annual Wellness Exam 11:28:26 CDT CPT-49383 Chest 2V Frontal and Lat 15:00:00 DENTAL EQUIPMENT TECHNICIAN CPT-62903 Breathing Tx 14:49:25 DENTAL EQUIPMENT TECHNICIAN CPT-56634 Fluzone High Dose 15:08:41 DENTAL EQUIPMENT TECHNICIAN CPT-63860 Immunization Single Admin 15:08:41 DENTAL EQUIPMENT TECHNICIAN CPT-64652 Fluzone High Dose 17:31:19 CDT CPT-44221 Administration single or combination vaccine inc oral 17 :31:19 CDT CPT-91294 Venipuncture Draw Fee 11:03:05 CDT CPT-TCMM Transitional Care Mgmt-Moderate 16:32:35 CDT CPT-58514 Chest 2V Frontal and Lat 11:51:09 CDT CPT-G0008 Administration of Influenza Virus Vaccine 15:09:08 CDT CPT-72139 Fluzone High-Dose Intramuscular Suspension 15:09:08 CDT CPT-16556 Administration single or combination vaccine inc oral 17 :07:02 DENTAL EQUIPMENT TECHNICIAN CPT-15250 Influenza High Dose age 65+ 17:07:02 DENTAL EQUIPMENT TECHNICIAN
--- OUTSIDE RECORDS SUMMARY | 2017-02-27 22:41 | XMS REPORT | Clinical Summary ---
Author Author Admin, LEE Organization [facility] Address Unknown Phone Unavailable Allergies, [...] Coronary atherosclerosis of unspecified type of vessel, chuloonawick or graft U R I ICD-465.9 Inactive Austin Albarado MD 06/13 Bronchitis-Acute ICD-466.0 Inactive Austin Albarado MD Medication List Medication Instructions Start Date Stop Date Generic Name NDC Status Provider Patient Instruction LEVAQUIN 500 MG TAB 1 tablet by mouth daily LEVOFLOXACIN 75759128322 Active Madhavi Raida Active PREDNISONE 20 MG ORAL TABS 3 tabs po for 3 days than,2 tabs po for 3 days,1 tab po for 3 days, 1/2 tab po for 3 days. PREDNISONE 73249874103 Active Madhavi Raida Active FUROSEMIDE 20 MG TABS 2 today and tomorrow and then 1 daily as needed for swelling FUROSEMIDE 10625530508 Active Garcia Stroud MD Active AMOXICILLIN 500 MG ORAL TABS Take one by mouth 3 times daily, morning, afternoon and evening.] AMOXICILLIN 93545265431 No Longer Active Garcia Stroud MD Active PREDNISONE 20 MG ORAL TABS 3 daily for 3 days than, 2 tabs daily for 3 days than, 2 tabs daily for 3 days than, 1 tab daily for 3 days than 1/2 tab daily for 3 days. PREDNISONE 21123031846 No Longer Active Tracie Arrington APRN Active FLUTICASONE PROPIONATE 50 MCG/ACT SUSP 1 to 2 sprays each nostril daily 08/21 FLUTICASONE PROPIONATE 80290967955 Active Simona Galloway APRN Active PREDNISONE 10 MG TAB take 1 tab po qday for severe COPD PREDNISONE 71121998265 Active Austin Albarado MD Active PREDNISONE 20 MG ORAL TABS 3 TABS PO FOR 3 DAYS,THAN 2 TABS FOR 3 DAYS THAN, 1 TAB FOR 3 DAYS THAN, 1/2 TAB FOR 3 DAYS. PREDNISONE 84616742534 No Longer Active Austin Albarado MD Active LEVAQUIN 500 MG TAB 1 tablet by mouth daily for 10 days. LEVOFLOXACIN 82179637160 No Longer Active Austin Albarado MD Active PREDNISONE 20 MG TAB take 3 tabs daily for 3 days, 2 tabs daily for 3 days, 1 tab daily for 3 days, 1/2 tab daily for 3 days PREDNISONE 67589021142 No Longer Active Simona Galloway APRN Active ZITHROMAX 1 GM ORAL PACK DIRECTED AZITHROMYCIN 80762840230 No Longer Active Simona Galloway APRN Active PREDNISONE 20 MG TAB 2 tabs daily for 4 days, 1 tab daily for 4 days, 1/2 tab daily for 4 days PREDNISONE 86828229661 No Longer Active Austin Albarado MD Active LEVAQUIN 500 MG TAB 1 tablet by mouth daily LEVOFLOXACIN 06712161351 No Longer Active Austin Albarado MD Active PREDNISONE 20 MG TAB take 3 tabs daily for 3 days, 2 tabs daily for 3 days, 1 tab daily for 3 days, 1/2 tab daily for 3 days PREDNISONE 35190760554 No Longer Active Austin Albarado MD Active DOXYCYCLINE HYCLATE 100 MG CAP 1 cap by mouth twice daily DOXYCYCLINE HYCLATE 54749383003 No Longer Active Esperanza Modi APRN Active ALBUTEROL SULFATE (2.5 MG/3ML) 0.083% NEBU nebulize 1 vial q 4-6 hours prn shortness of breath ALBUTEROL SULFATE 03452636308 No Longer Active Esperanza Modi APRN Active TORSEMIDE 20 MG TABS 1 TAB PO BID TORSEMIDE 60085856894 No Longer Active Esperanza Modi APRN Active PREDNISONE 20 MG TAB 2 tabs daily for 3 days, 1 tab daily for 3 days, 1/2 tab daily for 2 days PREDNISONE 71585931685 No Longer Active Austin Albarado MD Active LEVOFLOXACIN 500 MG ORAL TABS take 1 tab po qday LEVOFLOXACIN 63853629271 No Longer Active Austin Albarado MD Active PREDNISONE 20 MG TAB 2 tablets today, then 1 tablet by mouth days 2-5 PREDNISONE 98494031094 No Longer Active Austin Albarado MD Active AZITHROMYCIN 500 MG SOLR 1 po q day AZITHROMYCIN 67673856562 No Longer Active Austin Albarado MD Active KEFLEX 500 MG CAP 1 po TID x 7 days CEPHALEXIN 03584257415 No Longer Active Tristan Vaughn MD Active EQL VISION FORMULA TABS 1 TAB PO DAILY MULTIPLE VITAMINS-MINERALS 48574494710 No Longer Active Tristan Vaughn MD Active CHANTIX STARTING MONTH ELVIS 0.5 MG X 11 & 1 MG X 42 TABS 0.5mg daily for 3 days , then 0.5mg BID for 4 days, then 1mg BID VARENICLINE TARTRATE 91056242231 No Longer Active Tristan Vaughn MD Active LEVOTHYROXINE SODIUM 200 MCG TABS 1 TAB PO DAILY LEVOTHYROXINE SODIUM 06183717888 No Longer Active Tristan Vaughn MD Active LIOTHYRONINE SODIUM 50 MCG TABS take 1 tab po qday for hypothyroidism LIOTHYRONINE SODIUM 89890002376 No Longer Active Austin Albarado MD Active SYNTHROID 0.025 MG TAB 1 tablet by mouth daily LEVOTHYROXINE SODIUM 77047819815 No Longer Active Austin Albarado MD Active ARMOUR THYROID 120 MG TABS take 1 tab po qday for hypothyroidism THYROID 93982204474 Active Austin Albarado MD Active FLONASE 50 MCG/ACT SUSP 1 spray each nostril am and hs FLUTICASONE PROPIONATE Active Simona Galloway FORENSIC SPECIALIST Active ZITHROMAX 1 GM PACK DIRECTED AZITHROMYCIN 45339453638 No Longer Active Austin Albarado MD Active PREDNISONE 20 MG TAB 2 tabs daily for 3 days, 1 tab daily for 3 days, 1/2 tab daily for 2 days PREDNISONE 94461484457 No Longer Active Austin Albarado MD Active ZITHROMAX 250 MG TAB 2 po today, then 1 po q days 2-5 AZITHROMYCIN 04563205204 No Longer Active Austin Albarado MD Active NYSTATIN-TRIAMCINOLONE 602497-9.1 UNIT/GM-% OINT Apply to affected area TID NYSTATIN-TRIAMCINOLONE 99568046021 Active Austin Albarado MD Active IPRATROPIUM-ALBUTEROL 0.5-2.5 (3) MG/3ML SOLN 1 VIAL NEB Q 6 HRS PRN IPRATROPIUM-ALBUTEROL 56550078871 Active Austin Albarado MD Active PROAIR HFA 108 (90 BASE) MCG/ACT AERS take 1-2 puffs q4hrs prn cough/ SOB ALBUTEROL SULFATE 26328730729 Active Austin Albarado MD Active ADVAIR DISKUS 500-50 MCG/DOSE AEPB ONE INH BID FLUTICASONE- SALMETEROL 16414012478 Active Austin Albarado MD Active ZITHROMAX 1 GM PACK DIRECTED ZITHROMAX 1 GM PACK 882341 AZITHROMYCIN Inactive SYNTHROID 0.025 MG TAB 1 tablet by mouth daily SYNTHROID 0.025 MG TAB 100204 LEVOTHYROXINE SODIUM Inactive LIOTHYRONINE SODIUM 50 MCG TABS take 1 tab po qday for hypothyroidism LIOTHYRONINE SODIUM 50 MCG TABS 968084 LIOTHYRONINE SODIUM Inactive LEVOTHYROXINE SODIUM 200 MCG TABS 1 TAB PO DAILY LEVOTHYROXINE SODIUM 200 MCG TABS 467786 LEVOTHYROXINE SODIUM Inactive CHANTIX STARTING MONTH ELVIS [...] po q day AZITHROMYCIN 500 MG SOLR 89034321420 AZITHROMYCIN Inactive PREDNISONE 20 MG TAB 2 tablets today, then 1 tablet by mouth days 2-5 PREDNISONE 20 MG TAB 512344 PREDNISONE Inactive TORSEMIDE 20 MG TABS 1 TAB PO BID TORSEMIDE 20 MG TABS 351587 TORSEMIDE Inactive ALBUTEROL SULFATE (2.5 MG/3ML) 0.083% NEBU nebulize 1 vial q 4-6 hours prn shortness of breath ALBUTEROL SULFATE (2.5 MG/3ML) 0.083% NEBU 593691 ALBUTEROL SULFATE Inactive LEVAQUIN 500 MG TAB 1 tablet by mouth daily LEVAQUIN 500 MG TAB 281594 LEVOFLOXACIN Inactive PREDNISONE 20 MG TAB 2 tabs daily for 4 days, 1 tab daily for 4 days, 1/2 tab daily for 4 days PREDNISONE 20 MG TAB 807575 PREDNISONE Inactive ZITHROMAX 1 GM ORAL PACK DIRECTED ZITHROMAX 1 GM ORAL PACK 293780 AZITHROMYCIN Inactive LEVAQUIN 500 MG TAB 1 tablet by mouth daily for 10 days. LEVAQUIN 500 MG TAB 951303 LEVOFLOXACIN Inactive PREDNISONE 20 MG ORAL TABS 3 TABS PO FOR 3 DAYS,THAN 2 TABS FOR 3 DAYS THAN, 1 TAB FOR 3 DAYS THAN, 1/2 TAB FOR 3 DAYS. PREDNISONE 20 MG ORAL TABS 960883 PREDNISONE Inactive PREDNISONE 20 MG ORAL TABS 3 daily for 3 days than, 2 tabs daily for 3 days than, 2 tabs daily for 3 days than, 1 tab daily for 3 days than 1/2 tab daily for 3 days. PREDNISONE 20 MG ORAL TABS 299484 PREDNISONE Inactive AMOXICILLIN 500 MG ORAL TABS Take one by mouth 3 times daily, morning, afternoon and evening.] AMOXICILLIN 500 MG ORAL TABS 736420 AMOXICILLIN Inactive ZITHROMAX 250 MG TAB 2 po today, then 1 po q days 2-5 ZITHROMAX 250 MG TAB 0459871 AZITHROMYCIN Inactive PREDNISONE 20 MG TAB 2 tabs daily for 3 days, 1 tab daily for 3 days, 1/2 tab daily for 2 days PREDNISONE 20 MG TAB 405251 PREDNISONE Inactive KEFLEX 500 MG CAP 1 po TID x 7 days KEFLEX 500 MG CAP 506589 CEPHALEXIN Inactive LEVOFLOXACIN 500 MG ORAL TABS take 1 tab po qday LEVOFLOXACIN 500 MG ORAL TABS 006571 LEVOFLOXACIN Inactive PREDNISONE 20 MG TAB 2 tabs daily for 3 days, 1 tab daily for 3 days, 1/2 tab daily for 2 days PREDNISONE 20 MG TAB 811115 PREDNISONE Inactive DOXYCYCLINE HYCLATE 100 MG CAP 1 cap by mouth twice daily DOXYCYCLINE HYCLATE 100 MG CAP 0635730 DOXYCYCLINE HYCLATE Inactive PREDNISONE 20 MG TAB take 3 tabs daily for 3 days, 2 tabs daily for 3 days, 1 tab daily for 3 days, 1/2 tab daily for 3 days PREDNISONE 20 MG TAB 798237 PREDNISONE Inactive PREDNISONE 20 MG TAB take 3 tabs daily for 3 days, 2 tabs daily for 3 days, 1 tab daily for 3 days, 1/2 tab daily for 3 days PREDNISONE 20 MG TAB 697624 PREDNISONE Inactive Advance Directives Directive Description Start [...] ... - Chemistry cholesterol, serum 136 mg/dL 973-140 2235/10/06 triglyceride, serum, fasting 30 mg/dL 30-200 HDL cholesterol, serum 57 mg/dL 32-96 LDL cholesterol, serum 73 mg/dL 0-130 prostate specific antigen 1.45 ng/mL 0.00-4.00 thyroxine, serum, free 0.80 ng/dL 0.76-1.46 TSH 14.03 m[iU]/mL 0.36-3.74 Lab Report: Thyroid Stimulating Hormone (L), Comp. Metabolic Panel, CBC, ... - Chemistry TSH 43.52 m[iU]/mL 0.36-3.74 sodium, serum 140 mmol/L 542-198 8210/04/06 carbon dioxide, venous blood 36.3 mmol/L 21.0-32.0 potassium, serum 4.9 mmol/L 3.5-5.2 chloride, serum 100 mmol/L 98-107 blood glucose 62 mg/dL 65-110 urea nitrogen, blood 24 mg/dL 7-18 creatinine, serum 1.09 mg/dL 0.55-1.30 alanine aminotransferase (SGPT), serum 44 U/L 12-78 aspartate aminotransferase (SGOT), serum 25 U/L 15-37 calcium, serum 8.7 mg/dL 8.5-10.1 bilirubin, serum, total 0.50 mg/dL 0.00-1.00 cholesterol, serum 189 mg/dL 697-027 4959/04/06 triglyceride, serum, fasting 117 mg/dL 30-200 HDL [...] 142-424 Encounters Code Encounter Date Provider Facility CPT-21671 Level 4 Est. Patient 23:08:56 CDT Austin Albarado MD [facility] CPT-09496 Level 4 Est. Patient 13:27:28 CDT Garcia Stroud MD [facility]-30719 Level 4 Est. Patient 10:51:20 CDT Austin Albarado MD [facility]-86054 Level 4 Est. Patient 20:09:43 DIE STAMPING PRESS OPERATOR Austin Albarado MD [facility]-62491 Level 4 Est. Patient 21:00:28 CDT Austin Albarado MD [facility] CPT-02309 Level 4 Est. Patient 10:03:37 CDT Austin Albarado MD [facility]-04220 Level 3 Est. Patient 10:50:28 DIE STAMPING PRESS OPERATOR Austin Albarado MD [facility]-05274 Level 4 Est. Patient 21:31:41 DIE STAMPING PRESS OPERATOR Austin Albarado MD [facility]-52100 Level 3 Est. Patient 16:22:54 DIE STAMPING PRESS OPERATOR Jann Law DO [facility] CPT-68543 Level 3 Est. Patient 11:04:53 DIE STAMPING PRESS OPERATOR Tristan Vaughn MD [facility] CPT-20333 Level 4 Est. Patient 09:50:59 CDT Austin Albarado MD [facility]-03749 Level 4 Est. Patient 09:29:00 CDT Austin Albarado MD [facility]-89174 Level 4 Est. Patient 14:23:07 CDT Austin Albarado MD [facility]-48075 Level 4 Est. Patient 14:27:26 CDT Austin Albarado MD [facility]-68369 Level 4 Est. Patient 12:51:43 DIE STAMPING PRESS OPERATOR Austin Albarado MD [facility] CPT-84044 Level 3 New Patient 14:17:38 DIE STAMPING PRESS OPERATOR Austin Albarado MD [facility] CPT-98839 Level 3 New Patient 11:28:18 DIE STAMPING PRESS OPERATOR Austin Albarado MD [facility] Procedures Code Procedure Name Date Entry Date Standard Description CPT-G0009 Administration of Pneumococcal Vaccine 13:25:27 CDT CPT-28974 Prevnar 13 Intramuscular Suspension 13:25:27 CDT 09/26 CPT-G0438 Initial Annual Wellness Exam 11:28:26 CDT CPT-57100 Chest 2V Frontal and Lat 15:00:00 DIE STAMPING PRESS OPERATOR CPT-08868 Breathing Tx 14:49:25 DIE STAMPING PRESS OPERATOR CPT-12543 Fluzone High Dose 15:08:41 DIE STAMPING PRESS OPERATOR CPT-40021 Immunization Single Admin 15:08:41 DIE STAMPING PRESS OPERATOR CPT-80619 Fluzone High Dose 17:31:19 CDT CPT-65501 Administration single or combination vaccine inc oral 17 :31:19 CDT CPT-93446 Venipuncture Draw Fee 11:03:05 CDT CPT-TCMM Transitional Care Mgmt-Moderate 16:32:35 CDT CPT-14109 Chest 2V Frontal and Lat 11:51:09 CDT CPT-G0008 Administration of Influenza Virus Vaccine 15:09:08 CDT CPT-43873 Fluzone High-Dose Intramuscular Suspension 15:09:08 CDT CPT-30052 Administration single or combination vaccine inc oral 17 :07:02 DIE STAMPING PRESS OPERATOR CPT-97537 Influenza High Dose age 65+ 17:07:02 DIE STAMPING PRESS OPERATOR
--- OUTSIDE RECORDS SUMMARY | 2017-02-27 22:41 | XMS REPORT | Clinical Summary ---
Author Author Admin, LEE Organization [facility] Address Unknown Phone Unavailable Allergies, Adverse [...] 1/2 tab daily for 3 days PREDNISONE 76699337070 No Longer Active Austin Albarado MD Active LEVAQUIN 500 MG TAB 1 tablet by mouth daily LEVOFLOXACIN 67904524817 Active Austin Albarado MD Active PREDNISONE 20 MG TAB 2 tabs daily for 4 days, 1 tab daily for 4 days, 1/2 tab daily for 4 days PREDNISONE 32381463702 Active 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 COMPOSITION MIXER Active DOXYCYCLINE HYCLATE 100 MG CAP 1 cap by mouth twice daily DOXYCYCLINE HYCLATE 07689201129 No Longer Active 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 COMPOSITION MIXER Active ALBUTEROL SULFATE (2.5 MG/3ML) 0.083% NEBU nebulize 1 vial q 4-6 hours prn shortness of breath ALBUTEROL SULFATE 41065580021 No Longer Active 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 COMPOSITION MIXER Active TORSEMIDE 20 MG TABS 1 TAB PO BID TORSEMIDE 91367165693 No Longer Active 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 COMPOSITION MIXER Active PREDNISONE 20 MG TAB 2 tabs daily for 3 days, 1 tab daily for 3 days, 1/2 tab daily for 2 days PREDNISONE 65373292189 No Longer Active Austin Albarado MD Active LEVOFLOXACIN 500 MG ORAL TABS take 1 tab po qday LEVOFLOXACIN 17445627850 No Longer Active Austin Albarado MD Active PREDNISONE 20 MG TAB 2 tablets today, then 1 tablet by mouth days 2-5 PREDNISONE 50142379181 No Longer Active Austin Albarado MD Active AZITHROMYCIN 500 MG SOLR 1 po q day AZITHROMYCIN 78574053489 No Longer Active Austin Albarado MD Active KEFLEX 500 MG CAP 1 po TID x 7 days CEPHALEXIN 55715506145 No Longer Active Tristan Vaughn MD Active EQL VISION FORMULA TABS 1 TAB PO DAILY MULTIPLE VITAMINS-MINERALS 58336701641 No Longer Active Tristan Vaughn MD Active CHANTIX STARTING MONTH ELVIS 0.5 MG X 11 & 1 MG X 42 TABS 0.5mg daily for 3 days , then 0.5mg BID for 4 days, then 1mg BID VARENICLINE TARTRATE 32482006453 No Longer Active Tristan Vaughn MD Active LEVOTHYROXINE SODIUM 200 MCG TABS 1 TAB PO DAILY LEVOTHYROXINE SODIUM 63085357712 No Longer Active Tristan Vaughn MD Active LIOTHYRONINE SODIUM 50 MCG TABS take 1 tab po qday for hypothyroidism LIOTHYRONINE SODIUM 46244543127 No Longer Active Austin Albarado MD Active SYNTHROID 0.025 MG TAB 1 tablet by mouth daily LEVOTHYROXINE SODIUM 03068157068 No Longer Active Austin Albarado MD Active ARMOUR THYROID 120 MG TABS take 1 tab po qday for hypothyroidism THYROID 81508995535 Active Austin Albarado MD Active FLONASE 50 MCG/ACT SUSP 1 spray each nostril am and hs FLUTICASONE PROPIONATE 37217287225 Active Austin Albarado MD Active ZITHROMAX 1 GM PACK DIRECTED AZITHROMYCIN 17074565812 No Longer Active Austin Albarado MD Active PREDNISONE 20 MG TAB 2 tabs daily for 3 days, 1 tab daily for 3 days, 1/2 tab daily for 2 days PREDNISONE 05274078216 No Longer Active Austin Albarado MD Active ZITHROMAX 250 MG TAB 2 po today, then 1 po q days 2-5 AZITHROMYCIN 01199627017 No Longer Active Austin Albarado MD Active NYSTATIN-TRIAMCINOLONE 821661-5.1 UNIT/GM-% OINT Apply to affected area TID NYSTATIN-TRIAMCINOLONE 00516633993 Active Austin Albarado MD Active IPRATROPIUM-ALBUTEROL 0.5-2.5 (3) MG/3ML SOLN 1 VIAL NEB Q 6 HRS PRN IPRATROPIUM-ALBUTEROL 55681921971 Active Austin Albarado MD Active PROAIR HFA 108 (90 BASE) MCG/ACT AERS take 1-2 puffs q4hrs prn cough/ SOB ALBUTEROL SULFATE 80896533424 Active Austin Albarado MD Active ADVAIR DISKUS 500-50 MCG/DOSE AEPB ONE INH BID FLUTICASONE- SALMETEROL 27099751401 Active Austin Albarado MD Active ZITHROMAX 1 GM PACK DIRECTED ZITHROMAX 1 GM PACK 843616 AZITHROMYCIN Inactive SYNTHROID 0.025 MG TAB 1 tablet by mouth daily SYNTHROID 0.025 MG TAB 346589 LEVOTHYROXINE SODIUM Inactive LIOTHYRONINE SODIUM 50 MCG TABS take 1 tab po qday for hypothyroidism LIOTHYRONINE SODIUM 50 MCG TABS 463855 LIOTHYRONINE SODIUM Inactive LEVOTHYROXINE SODIUM 200 MCG TABS 1 TAB PO DAILY LEVOTHYROXINE SODIUM 200 MCG TABS 398398 LEVOTHYROXINE SODIUM Inactive CHANTIX STARTING MONTH ELVIS [...] po q day AZITHROMYCIN 500 MG SOLR 806523 AZITHROMYCIN Inactive PREDNISONE 20 MG TAB 2 tablets today, then 1 tablet by mouth days 2-5 PREDNISONE 20 MG TAB 838302 PREDNISONE Inactive TORSEMIDE 20 MG TABS 1 TAB PO BID TORSEMIDE 20 MG TABS 843759 TORSEMIDE Inactive ALBUTEROL SULFATE (2.5 MG/3ML) 0.083% NEBU nebulize 1 vial q 4-6 hours prn shortness of breath ALBUTEROL SULFATE (2.5 MG/3ML) 0.083% NEBU 075479 ALBUTEROL SULFATE Inactive ZITHROMAX 250 MG TAB 2 po today, then 1 po q days 2-5 ZITHROMAX 250 MG TAB 8416030 AZITHROMYCIN Inactive PREDNISONE 20 MG TAB 2 tabs daily for 3 days, 1 tab daily for 3 days, 1/2 tab daily for 2 days PREDNISONE 20 MG TAB 461975 PREDNISONE Inactive KEFLEX 500 MG CAP 1 po TID x 7 days KEFLEX 500 MG CAP 127997 CEPHALEXIN Inactive LEVOFLOXACIN 500 MG ORAL TABS take 1 tab po qday LEVOFLOXACIN 500 MG ORAL TABS 662320 LEVOFLOXACIN Inactive PREDNISONE 20 MG TAB 2 tabs daily for 3 days, 1 tab daily for 3 days, 1/2 tab daily for 2 days PREDNISONE 20 MG TAB 988151 PREDNISONE Inactive DOXYCYCLINE HYCLATE 100 MG CAP 1 cap by mouth twice daily DOXYCYCLINE HYCLATE 100 MG CAP 19890623 DOXYCYCLINE HYCLATE Inactive PREDNISONE 20 MG TAB take 3 tabs daily for 3 days, 2 tabs daily for 3 days, 1 tab daily for 3 days, 1/2 tab daily for 3 days PREDNISONE 20 MG TAB 812212 PREDNISONE Inactive Advance Directives Directive Description Start [...] E&M - 3141-9 247 [lb_av] Weight Measured Diagnostic Results Date Name Value Unit Range Description Lab Report: CBC W/DIFF, Comp. Metabolic Panel, B-Type Natriuretic Peptid ... - Chemistry sodium, serum 140 mmol/L 415-919 0242/03/09 potassium, serum 4.9 mmol/L 3.5-5.2 chloride, serum [...] count 347 10^3/MM^3 10*3/mm3 142-424 Lab Report: Free Thyroxine (L), Thyroid Stimulating Hormone (L) - Chemistry thyroxine, serum, free 0.89 ng/dL 0.76-1.46 TSH 4.00 m[iU]/mL 0.36-3.74 Encounters Code Encounter Date Provider Facility CPT-24690 Level 3 Est. Patient 10:50:28 TOW DRIVER Austin Albarado MD [facility] CPT-38808 Level 4 Est. Patient 21:31:41 TOW DRIVER Austin Albarado MD [facility] CPT-72773 Level 3 Est. Patient 16:22:54 TOW DRIVER Jann Law DO [facility] CPT-31470 Level 3 Est. Patient 11:04:53 TOW DRIVER Tristan Vaughn MD [facility] CPT-07948 Level 4 Est. Patient 09:50:59 CDT Austin Albarado MD [facility] CPT-33303 Level 4 Est. Patient 09:29:00 CDT Austin Albarado MD [facility] CPT-30343 Level 4 Est. Patient 14:23:07 CDT Austin Albarado MD [facility] CPT-37930 Level 4 Est. Patient 14:27:26 CDT Austin Albarado MD [facility] CPT-99384 Level 4 Est. Patient 12:51:43 TOW DRIVER Austin Albarado MD [facility] CPT-62629 Level 3 New Patient 14:17:38 TOW DRIVER Austin Albarado MD [facility] CPT-02761 Level 3 New Patient 11:28:18 TOW DRIVER Austin Albarado MD [facility] Procedures Code Procedure Name Date Entry Date Standard Description CPT-TCMM Transitional Care Mgmt-Moderate 16:32:35 CDT CPT-21358 Chest 2V Frontal and Lat 11:51:09 CDT CPT-G0008 Administration of Influenza Virus Vaccine 15:09:08 CDT CPT-35089 Fluzone High-Dose Intramuscular Suspension 15:09:08 CDT CPT-82108 Administration single or combination vaccine inc oral 17 :07:02 TOW DRIVER CPT-39625 Influenza High Dose age 65+ 17:07:02 TOW DRIVER
[2017-02-27 22:42] LABS: ABG PCO2 87 MMHG (35-45); ABG PH 7.27 (7.37-7.43); ALLENS TEST POSITIVE; PATIENT TEMP 101.3
--- OUTSIDE RECORDS SUMMARY | 2017-02-27 22:42 | XMS REPORT | Clinical Summary ---
Author Author Admin, E Organization [employer] Address Unknown Phone Unavailable Allergies, Adverse Reactions, [...] Coronary atherosclerosis of unspecified type of vessel, torres martinez or graft Peripheral edema 782.3 Active Austin [...] 1/2 tab po for 3 days. PREDNISONE 92044727059 No Longer Active Simona Galloway APRN Active LEVAQUIN 500 MG TAB 1 tablet by mouth daily LEVOFLOXACIN 81390996469 No Longer Active Simona Galloway APRN Active PREDNISONE 20 MG TAB take 3 tabs daily for 3 days, 2 tabs daily for 3 days, 1 tab daily for 3 days, 1/2 tab daily for 3 days PREDNISONE 25421510418 No Longer Active Austin Albarado MD Active LEVAQUIN 500 MG TAB 1 tablet by mouth daily LEVOFLOXACIN 80096586312 No Longer Active Madhavi Fiore Active FUROSEMIDE 20 MG TABS take 1 tab po BID for swelling FUROSEMIDE 63703356740 Active Austin Albarado MD Active AMOXICILLIN 500 MG ORAL TABS Take one by mouth 3 times daily, morning, afternoon and evening.] AMOXICILLIN 22449533286 No Longer Active Garcia Stroud MD Active PREDNISONE 20 MG ORAL TABS 3 daily for 3 days than, 2 tabs daily for 3 days than, 2 tabs daily for 3 days than, 1 tab daily for 3 days than 1/2 tab daily for 3 days. PREDNISONE 44091305374 No Longer Active Tracie Arrington APRN Active FLUTICASONE PROPIONATE 50 MCG/ACT SUSP 1 to 2 sprays each nostril daily 08/21 FLUTICASONE PROPIONATE 62341719979 Active Simona Galloway APRN Active PREDNISONE 10 MG TAB take 1 tab po qday for severe COPD PREDNISONE 78545742940 Active Austin Albarado MD Active PREDNISONE 20 MG ORAL TABS 3 TABS PO FOR 3 DAYS,THAN 2 TABS FOR 3 DAYS THAN, 1 TAB FOR 3 DAYS THAN, 1/2 TAB FOR 3 DAYS. PREDNISONE 04107007503 No Longer Active Austin Albarado MD Active LEVAQUIN 500 MG TAB 1 tablet by mouth daily for 10 days. LEVOFLOXACIN 36502818954 No Longer Active Austin Albarado MD Active PREDNISONE 20 MG TAB take 3 tabs daily for 3 days, 2 tabs daily for 3 days, 1 tab daily for 3 days, 1/2 tab daily for 3 days PREDNISONE 41248916543 No Longer Active Simona Galloway APRN Active ZITHROMAX 1 GM ORAL PACK DIRECTED AZITHROMYCIN 96554712706 No Longer Active Simona Galloway APRN Active PREDNISONE 20 MG TAB 2 tabs daily for 4 days, 1 tab daily for 4 days, 1/2 tab daily for 4 days PREDNISONE 50277279398 No Longer Active Austin Albarado MD Active LEVAQUIN 500 MG TAB 1 tablet by mouth daily LEVOFLOXACIN 56929550337 No Longer Active Austin Albarado MD Active PREDNISONE 20 MG TAB take 3 tabs daily for 3 days, 2 tabs daily for 3 days, 1 tab daily for 3 days, 1/2 tab daily for 3 days PREDNISONE 06278225607 No Longer Active Austin Albarado MD Active DOXYCYCLINE HYCLATE 100 MG CAP 1 cap by mouth twice daily DOXYCYCLINE HYCLATE 58732875986 No Longer Active Jillina Frazeldemario RAW SHELLFISH PREPARER Active ALBUTEROL SULFATE (2.5 MG/3ML) 0.083% NEBU nebulize 1 vial q 4-6 hours prn shortness of breath ALBUTEROL SULFATE 30154863250 No Longer Active 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 RAW SHELLFISH PREPARER Active TORSEMIDE 20 MG TABS 1 TAB PO BID TORSEMIDE 27812289625 No Longer Active 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 RAW SHELLFISH PREPARER Active PREDNISONE 20 MG TAB 2 tabs daily for 3 days, 1 tab daily for 3 days, 1/2 tab daily for 2 days PREDNISONE 14269769093 No Longer Active Austin Albarado MD Active LEVOFLOXACIN 500 MG ORAL TABS take 1 tab po qday LEVOFLOXACIN 72937347556 No Longer Active Autsin Albarado MD Active PREDNISONE 20 MG TAB 2 tablets today, then 1 tablet by mouth days 2-5 PREDNISONE 66610680571 No Longer Active Austin Albarado MD Active AZITHROMYCIN 500 MG SOLR 1 po q day AZITHROMYCIN 78909694311 No Longer Active Austin Albarado MD Active KEFLEX 500 MG CAP 1 po TID x 7 days CEPHALEXIN 01246702084 No Longer Active Tristan Vaughn MD Active EQL VISION FORMULA TABS 1 TAB PO DAILY MULTIPLE VITAMINS-MINERALS 32392272861 No Longer Active Tristan Vaughn MD Active CHANTIX STARTING MONTH ELVIS 0.5 MG X 11 & 1 MG X 42 TABS 0.5mg daily for 3 days , then 0.5mg BID for 4 days, then 1mg BID VARENICLINE TARTRATE 80597045559 No Longer Active Tristan Vaughn MD Active LEVOTHYROXINE SODIUM 200 MCG TABS 1 TAB PO DAILY LEVOTHYROXINE SODIUM 80764839152 No Longer Active Tristan Vaughn MD Active LIOTHYRONINE SODIUM 50 MCG TABS take 1 tab po qday for hypothyroidism LIOTHYRONINE SODIUM 51153271846 No Longer Active Austin Albarado MD Active SYNTHROID 0.025 MG TAB 1 tablet by mouth daily LEVOTHYROXINE SODIUM 41671179135 No Longer Active Austin Albarado MD Active ARMOUR THYROID 120 MG TABS take 1 tab po qday for hypothyroidism THYROID 87721390921 Active Austin Albarado MD Active FLONASE 50 MCG/ACT SUSP 1 spray each nostril am and hs FLUTICASONE PROPIONATE Active Simona Galloway APRN Active ZITHROMAX 1 GM PACK DIRECTED AZITHROMYCIN 40524654059 No Longer Active Austin Albarado MD Active PREDNISONE 20 MG TAB 2 tabs daily for 3 days, 1 tab daily for 3 days, 1/2 tab daily for 2 days PREDNISONE 35423495002 No Longer Active Austin Albarado MD Active ZITHROMAX 250 MG TAB 2 po today, then 1 po q days 2-5 AZITHROMYCIN 46552731989 No Longer Active Austin Albarado MD Active NYSTATIN-TRIAMCINOLONE 060141-8.1 UNIT/GM-% OINT Apply to affected area TID NYSTATIN-TRIAMCINOLONE 65569298606 Active Austin Albarado MD Active IPRATROPIUM-ALBUTEROL 0.5-2.5 (3) MG/3ML SOLN 1 VIAL NEB Q 6 HRS PRN IPRATROPIUM-ALBUTEROL 34419003773 Active Simonastacie Galloway RAW SHELLFISH PREPARER Active PROAIR HFA 108 (90 BASE) MCG/ACT AERS take 1-2 puffs q4hrs prn cough/ SOB ALBUTEROL SULFATE 23742396788 Active Austin Albarado MD Active ADVAIR DISKUS 500-50 MCG/DOSE AEPB ONE INH BID FLUTICASONE- SALMETEROL 56087700460 Active Austin Albarado MD Active ZITHROMAX 1 GM PACK DIRECTED ZITHROMAX 1 GM PACK 560766 AZITHROMYCIN Inactive SYNTHROID 0.025 MG TAB 1 tablet by mouth daily SYNTHROID 0.025 MG TAB 186979 LEVOTHYROXINE SODIUM Inactive LIOTHYRONINE SODIUM 50 MCG TABS take 1 tab po qday for hypothyroidism LIOTHYRONINE SODIUM 50 MCG TABS 347042 LIOTHYRONINE SODIUM Inactive LEVOTHYROXINE SODIUM 200 MCG TABS 1 TAB PO DAILY LEVOTHYROXINE SODIUM 200 MCG TABS 057182 LEVOTHYROXINE SODIUM Inactive CHANTIX STARTING MONTH ELVIS [...] po q day AZITHROMYCIN 500 MG SOLR 82896954564 AZITHROMYCIN Inactive PREDNISONE 20 MG TAB 2 tablets today, then 1 tablet by mouth days 2-5 PREDNISONE 20 MG TAB 531392 PREDNISONE Inactive TORSEMIDE 20 MG TABS 1 TAB PO BID TORSEMIDE 20 MG TABS 936720 TORSEMIDE Inactive ALBUTEROL SULFATE (2.5 MG/3ML) 0.083% NEBU nebulize 1 vial q 4-6 hours prn shortness of breath ALBUTEROL SULFATE (2.5 MG/3ML) 0.083% NEBU 829871 ALBUTEROL SULFATE Inactive LEVAQUIN 500 MG TAB 1 tablet by mouth daily LEVAQUIN 500 MG TAB 870371 LEVOFLOXACIN Inactive PREDNISONE 20 MG TAB 2 tabs daily for 4 days, 1 tab daily for 4 days, 1/2 tab daily for 4 days PREDNISONE 20 MG TAB 018074 PREDNISONE Inactive ZITHROMAX 1 GM ORAL PACK DIRECTED ZITHROMAX 1 GM ORAL PACK 642776 AZITHROMYCIN Inactive LEVAQUIN 500 MG TAB 1 tablet by mouth daily for 10 days. LEVAQUIN 500 MG TAB 837165 LEVOFLOXACIN Inactive PREDNISONE 20 MG ORAL TABS 3 TABS PO FOR 3 DAYS,THAN 2 TABS FOR 3 DAYS THAN, 1 TAB FOR 3 DAYS THAN, 1/2 TAB FOR 3 DAYS. PREDNISONE 20 MG ORAL TABS 324133 PREDNISONE Inactive PREDNISONE 20 MG ORAL TABS 3 daily for 3 days than, 2 tabs daily for 3 days than, 2 tabs daily for 3 days than, 1 tab daily for 3 days than 1/2 tab daily for 3 days. PREDNISONE 20 MG ORAL TABS 916979 PREDNISONE Inactive AMOXICILLIN 500 MG ORAL TABS Take one by mouth 3 times daily, morning, afternoon and evening.] AMOXICILLIN 500 MG ORAL TABS 865098 AMOXICILLIN Inactive LEVAQUIN 500 MG TAB 1 tablet by mouth daily LEVAQUIN 500 MG TAB 531770 LEVOFLOXACIN Inactive LEVAQUIN 500 MG TAB 1 tablet by mouth daily LEVAQUIN 500 MG TAB 024714 LEVOFLOXACIN Inactive PREDNISONE 20 MG ORAL TABS 3 tabs po for 3 days than,2 tabs po for 3 days,1 tab po for 3 days, 1/2 tab po for 3 days. PREDNISONE 20 MG ORAL TABS 148190 PREDNISONE Inactive ZITHROMAX 250 MG TAB 2 po today, then 1 po q days 2-5 ZITHROMAX 250 MG TAB 2629443 AZITHROMYCIN Inactive PREDNISONE 20 MG TAB 2 tabs daily for 3 days, 1 tab daily for 3 days, 1/2 tab daily for 2 days PREDNISONE 20 MG TAB 799087 PREDNISONE Inactive KEFLEX 500 MG CAP 1 po TID x 7 days KEFLEX 500 MG CAP 029509 CEPHALEXIN Inactive LEVOFLOXACIN 500 MG ORAL TABS take 1 tab po qday LEVOFLOXACIN 500 MG ORAL TABS 377090 LEVOFLOXACIN Inactive PREDNISONE 20 MG TAB 2 tabs daily for 3 days, 1 tab daily for 3 days, 1/2 tab daily for 2 days PREDNISONE 20 MG TAB 864176 PREDNISONE Inactive DOXYCYCLINE HYCLATE 100 MG CAP 1 cap by mouth twice daily DOXYCYCLINE HYCLATE 100 MG CAP 3061440 DOXYCYCLINE HYCLATE Inactive PREDNISONE 20 MG TAB take 3 tabs daily for 3 days, 2 tabs daily for 3 days, 1 tab daily for 3 days, 1/2 tab daily for 3 days PREDNISONE 20 MG TAB 492855 PREDNISONE Inactive PREDNISONE 20 MG TAB take 3 tabs daily for 3 days, 2 tabs daily for 3 days, 1 tab daily for 3 days, 1/2 tab daily for 3 days PREDNISONE 20 MG TAB 724157 PREDNISONE Inactive PREDNISONE 20 MG TAB take 3 tabs daily for 3 days, 2 tabs daily for 3 days, 1 tab daily for 3 days, 1/2 tab daily for 3 days PREDNISONE 20 MG TAB 966789 PREDNISONE Inactive Advance Directives Directive Description Start [...] Peptide - Chemistry sodium, serum 140 mmol/L 524-121 8167/02/09 carbon dioxide, venous blood 39.2 mmol/L 21.0-32.0 [...] 43.52 m[iU]/mL 0.36-3.74 sodium, serum 140 mmol/L 916-056 2504/04/06 carbon dioxide, venous blood 36.3 mmol/L 21.0-32.0 potassium, serum 4.9 mmol/L 3.5-5.2 chloride, serum 100 mmol/L 98-107 blood glucose 62 mg/dL 65-110 urea nitrogen, blood 24 mg/dL 7-18 creatinine, serum 1.09 mg/dL 0.55-1.30 alanine aminotransferase (SGPT), serum 44 U/L -78 aspartate aminotransferase (SGOT), serum 25 U/L 15-37 calcium, serum 8.7 mg/dL 8.5-10.1 bilirubin, serum, total 0.50 mg/dL 0.00-1.00 cholesterol, serum 189 mg/dL 667-084 3582/04/06 triglyceride, serum, fasting 117 mg/dL 30-200 HDL [...] 142-424 Encounters Code Encounter Date Provider Facility CPT-09672 Level 4 Est. Patient 17:54:41 HARD TILE SETTER Austin Albarado MD [facility] CPT-86950 Level 4 Est. Patient 16:11:14 HARD TILE SETTER Austin Albarado MD [facility] CPT-72127 Level 4 Est. Patient 23:08:56 CDT Austin Albarado MD [facility] CPT-55535 Level 4 Est. Patient 13:27:28 CDT Garcia Stroud MD [facility] CPT-75461 Level 4 Est. Patient 10:51:20 CDT Austin Albarado MD [facility] CPT-82622 Level 4 Est. Patient 20:09:43 HARD TILE SETTER Austin Albarado MD [facility] CPT-60021 Level 4 Est. Patient 21:00:28 CDT Austin Albarado MD [facility] CPT-42688 Level 4 Est. Patient 10:03:37 CDT Austin Albarado MD [facility] CPT-52384 Level 3 Est. Patient 10:50:28 HARD TILE SETTER Austin Albarado MD [facility] CPT-69179 Level 4 Est. Patient 21:31:41 HARD TILE SETTER Austin Albarado MD [facility] CPT-68834 Level 3 Est. Patient 16:22:54 HARD TILE SETTER Jann Law DO [facility] CPT-48635 Level 3 Est. Patient 11:04:53 HARD TILE SETTER Tristan Vaughn MD [facility] CPT-74070 Level 4 Est. Patient 09:50:59 CDT Austin Albarado MD [facility] CPT-09197 Level 4 Est. Patient 09:29:00 CDT Austin Albarado MD [facility] CPT-87002 Level 4 Est. Patient 14:23:07 CDT Austin Albarado MD [facility] CPT-05007 Level 4 Est. Patient 14:27:26 CDT Austin Albarado MD [facility] CPT-72313 Level 4 Est. Patient 12:51:43 HARD TILE SETTER Austin Albarado MD [facility] CPT-48942 Level 3 New Patient 14:17:38 HARD TILE SETTER Austin Albarado MD [facility] CPT-02879 Level 3 New Patient 11:28:18 HARD TILE SETTER Austin Albarado MD [facility] Procedures Code Procedure Name Date Entry Date Standard Description CPT-TCMM Transitional Care Mgmt-Moderate 14:53:36 HARD TILE SETTER CPT-14032 No Charge Offi Visit 10:19:33 HARD TILE SETTER CPT-08073 Chest 2V Frontal and Lat - XRAY USE ONLY 15:01:41 HARD TILE SETTER CPT-09164 First Vx - Ix admin for Medicare patients 16:00:49 CDT CPT-22971 Fluzone High-Dose Intramuscular Suspension 16:00:49 CDT CPT-G0009 Administration of Pneumococcal Vaccine 13:25:27 CDT CPT-09146 Prevnar 13 Intramuscular Suspension 13:25:27 CDT 09/26 CPT-G0438 Initial Annual Wellness Exam 11:28:26 CDT CPT-41136 Chest 2V Frontal and Lat 15:00:00 HARD TILE SETTER CPT-82415 Breathing Tx 14:49:25 HARD TILE SETTER CPT-29689 Fluzone High Dose 15:08:41 HARD TILE SETTER CPT-35472 Immunization Single Admin 15:08:41 HARD TILE SETTER CPT-51931 Fluzone High Dose 17:31:19 CDT CPT-39694 Administration single or combination vaccine inc oral 17 :31:19 CDT CPT-42175 Venipuncture Draw Fee 11:03:05 CDT CPT-TCMM Transitional Care Mgmt-Moderate 16:32:35 CDT CPT-35953 Chest 2V Frontal and Lat 11:51:09 CDT CPT-G0008 Administration of Influenza Virus Vaccine 15:09:08 CDT CPT-03860 Fluzone High-Dose Intramuscular Suspension 15:09:08 CDT CPT-42720 Administration single or combination vaccine inc oral 17 :07:02 HARD TILE SETTER CPT-38647 Influenza High Dose age 65+ 17:07:02 HARD TILE SETTER
--- OUTSIDE RECORDS SUMMARY | 2017-02-27 22:42 | XMS REPORT | Clinical Summary ---
Author Author Admin, LEE Organization [facility] Address Unknown Phone Unavailable Allergies, [...] 1/2 tab daily for 4 days PREDNISONE 11420641267 Active 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 ROOMING HOUSE OPERATOR Active DOXYCYCLINE HYCLATE 100 MG CAP 1 cap by mouth twice daily DOXYCYCLINE HYCLATE 20421034468 No Longer Active 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 ROOMING HOUSE OPERATOR Active ALBUTEROL SULFATE (2.5 MG/3ML) 0.083% NEBU nebulize 1 vial q 4-6 hours prn shortness of breath ALBUTEROL SULFATE 43290783987 No Longer Active 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 ROOMING HOUSE OPERATOR Active TORSEMIDE 20 MG TABS 1 TAB PO BID TORSEMIDE 12183909431 No Longer Active 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 ROOMING HOUSE OPERATOR Active PREDNISONE 20 MG TAB 2 tabs daily for 3 days, 1 tab daily for 3 days, 1/2 tab daily for 2 days PREDNISONE 03907266645 No Longer Active Austin Albarado MD Active LEVOFLOXACIN 500 MG ORAL TABS take 1 tab po qday LEVOFLOXACIN 87698963720 No Longer Active Austin Albarado MD Active PREDNISONE 20 MG TAB 2 tablets today, then 1 tablet by mouth days 2-5 PREDNISONE 71828059429 No Longer Active Austin Albarado MD Active AZITHROMYCIN 500 MG SOLR 1 po q day AZITHROMYCIN 20956159558 No Longer Active Austin Albarado MD Active KEFLEX 500 MG CAP 1 po TID x 7 days CEPHALEXIN 96016997849 No Longer Active Tristan Vaughn MD Active EQL VISION FORMULA TABS 1 TAB PO DAILY MULTIPLE VITAMINS-MINERALS 21878420437 No Longer Active Tristan Vaughn MD Active CHANTIX STARTING MONTH ELVIS 0.5 MG X 11 & 1 MG X 42 TABS 0.5mg daily for 3 days , then 0.5mg BID for 4 days, then 1mg BID VARENICLINE TARTRATE 18837080286 No Longer Active Tristan Vaughn MD Active LEVOTHYROXINE SODIUM 200 MCG TABS 1 TAB PO DAILY LEVOTHYROXINE SODIUM 48291133357 No Longer Active Tristan Vaughn MD Active LIOTHYRONINE SODIUM 50 MCG TABS take 1 tab po qday for hypothyroidism LIOTHYRONINE SODIUM 00716110868 No Longer Active Austin Albarado MD Active SYNTHROID 0.025 MG TAB 1 tablet by mouth daily LEVOTHYROXINE SODIUM 10830415417 No Longer Active Austin Albarado MD Active ARMOUR THYROID 120 MG TABS take 1 tab po qday for hypothyroidism THYROID 65953073638 Active Austin Albarado MD Active FLONASE 50 MCG/ACT SUSP 1 spray each nostril am and hs FLUTICASONE PROPIONATE 93771256676 Active Austin Albarado MD Active ZITHROMAX 1 GM PACK DIRECTED AZITHROMYCIN 23369069553 No Longer Active Austin Albarado MD Active PREDNISONE 20 MG TAB 2 tabs daily for 3 days, 1 tab daily for 3 days, 1/2 tab daily for 2 days PREDNISONE 15660429519 No Longer Active Austin Albarado MD Active ZITHROMAX 250 MG TAB 2 po today, then 1 po q days 2-5 AZITHROMYCIN 85857815960 No Longer Active Austin Albarado MD Active NYSTATIN-TRIAMCINOLONE 083709-8.1 UNIT/GM-% OINT Apply to affected area TID NYSTATIN-TRIAMCINOLONE 00081634227 Active Austin Albarado MD Active IPRATROPIUM-ALBUTEROL 0.5-2.5 (3) MG/3ML SOLN 1 VIAL NEB Q 6 HRS PRN IPRATROPIUM-ALBUTEROL 63007443456 Active Austin Albarado MD Active PROAIR HFA 108 (90 BASE) MCG/ACT AERS take 1-2 puffs q4hrs prn cough/ SOB ALBUTEROL SULFATE 05541052604 Active Austin Albarado MD Active ADVAIR DISKUS 500-50 MCG/DOSE AEPB ONE INH BID FLUTICASONE- SALMETEROL 39176715137 Active Austin Albarado MD Active ZITHROMAX 1 GM PACK DIRECTED ZITHROMAX 1 GM PACK 977401 AZITHROMYCIN Inactive SYNTHROID 0.025 MG TAB 1 tablet by mouth daily SYNTHROID 0.025 MG TAB 851269 LEVOTHYROXINE SODIUM Inactive LIOTHYRONINE SODIUM 50 MCG TABS take 1 tab po qday for hypothyroidism LIOTHYRONINE SODIUM 50 MCG TABS 934196 LIOTHYRONINE SODIUM Inactive LEVOTHYROXINE SODIUM 200 MCG TABS 1 TAB PO DAILY LEVOTHYROXINE SODIUM 200 MCG TABS 168851 LEVOTHYROXINE SODIUM Inactive CHANTIX STARTING MONTH ELVIS [...] po q day AZITHROMYCIN 500 MG SOLR 907496 AZITHROMYCIN Inactive PREDNISONE 20 MG TAB 2 tablets today, then 1 tablet by mouth days 2-5 PREDNISONE 20 MG TAB 619150 PREDNISONE Inactive TORSEMIDE 20 MG TABS 1 TAB PO BID TORSEMIDE 20 MG TABS 267984 TORSEMIDE Inactive ALBUTEROL SULFATE (2.5 MG/3ML) 0.083% NEBU nebulize 1 vial q 4-6 hours prn shortness of breath ALBUTEROL SULFATE (2.5 MG/3ML) 0.083% NEBU 858269 ALBUTEROL SULFATE Inactive ZITHROMAX 250 MG TAB 2 po today, then 1 po q days 2-5 ZITHROMAX 250 MG TAB 9890977 AZITHROMYCIN Inactive PREDNISONE 20 MG TAB 2 tabs daily for 3 days, 1 tab daily for 3 days, 1/2 tab daily for 2 days PREDNISONE 20 MG TAB 814434 PREDNISONE Inactive KEFLEX 500 MG CAP 1 po TID x 7 days KEFLEX 500 MG CAP 515422 CEPHALEXIN Inactive LEVOFLOXACIN 500 MG ORAL TABS take 1 tab po qday LEVOFLOXACIN 500 MG ORAL TABS 573872 LEVOFLOXACIN Inactive PREDNISONE 20 MG TAB 2 tabs daily for 3 days, 1 tab daily for 3 days, 1/2 tab daily for 2 days PREDNISONE 20 MG TAB 609928 PREDNISONE Inactive DOXYCYCLINE HYCLATE 100 MG CAP 1 cap by mouth twice daily DOXYCYCLINE HYCLATE 100 MG CAP 855932 DOXYCYCLINE HYCLATE Inactive Advance Directives Directive Description [...] ... - Chemistry sodium, serum 140 mmol/L 116-676 9808/03/09 potassium, serum 4.9 mmol/L 3.5-5.2 chloride, serum [...] ... - Chemistry sodium, serum 140 mmol/L 644-554 2836/04/03 potassium, serum 4.9 mmol/L 3.5-5.2 chloride, serum [...] 0.60 mg/dL 0.00-1.00 cholesterol, serum 163 mg/dL 192-092 2650/04/03 triglyceride, serum, fasting 50 mg/dL 30-200 HDL [...] (L), Thyroid Stimulating Hormone (L) - Chemistry TSH 4.00 m[iU]/mL 0.36-3.74 thyroxine, serum, free 0.89 ng/dL 0.76-1.46 Encounters Code Encounter Date Provider Facility CPT-32724 Level 3 Est. Patient 10:50:28 DIE BAKER Austin Albarado MD [facility] CPT-68203 Level 4 Est. Patient 21:31:41 DIE BAKER Austin Albarado MD [facility] CPT-61789 Level 3 Est. Patient 16:22:54 DIE BAKER Jann Law DO [facility] CPT-68537 Level 3 Est. Patient 11:04:53 DIE BAKER Tristan Vaughn MD [facility] CPT-43401 Level 4 Est. Patient 09:50:59 CDT Austin Albarado MD [facility] CPT-91649 Level 4 Est. Patient 09:29:00 CDT Austin Albarado MD [facility] CPT-73624 Level 4 Est. Patient 14:23:07 CDT Austin Albarado MD [facility] CPT-07354 Level 4 Est. Patient 14:27:26 CDT Austin Albarado MD [facility] CPT-71165 Level 4 Est. Patient 12:51:43 DIE BAKER Austin Albarado MD [facility] CPT-54879 Level 3 New Patient 14:17:38 DIE BAKER Austin Albarado MD [facility] CPT-57316 Level 3 New Patient 11:28:18 DIE BAKER Austin Albarado MD [facility] Procedures Code Procedure Name Date Entry Date Standard Description CPT-11525 Chest 2V Frontal and Lat 11:51:09 CDT CPT-G0008 Administration of Influenza Virus Vaccine 15:09:08 CDT CPT-53647 Fluzone High-Dose Intramuscular Suspension 15:09:08 CDT CPT-73543 Administration single or combination vaccine inc oral 17 :07:02 DIE BAKER CPT-15518 Influenza High Dose age 65+ 17:07:02 DIE BAKER
--- OUTSIDE RECORDS SUMMARY | 2017-02-27 22:43 | XMS REPORT | Clinical Summary ---
Author Author Admin, LEE Organization [facility] Address Unknown Phone Unavailable Allergies, Adverse [...] Coronary atherosclerosis of unspecified type of vessel, nooksack or graft U R I ICD-465.9 Inactive Austin Albarado MD 06/13 Bronchitis-Acute ICD-466.0 Inactive Austin Albarado MD Medication List Medication Instructions Start Date Stop Date Generic Name NDC Status Provider Patient Instruction LEVAQUIN 500 MG TAB 1 tablet by mouth daily LEVOFLOXACIN [id number] Active Madhavi Raida Active PREDNISONE 20 MG ORAL TABS 3 tabs po for 3 days than,2 tabs po for 3 days,1 tab po for 3 days, 1/2 tab po for 3 days. PREDNISONE 55963803824 Active Madhavi Raida Active FUROSEMIDE 20 MG TABS 2 today and tomorrow and then 1 daily as needed for swelling FUROSEMIDE 23588034240 Active Garcia Stroud MD Active AMOXICILLIN 500 MG ORAL TABS Take one by mouth 3 times daily, morning, afternoon and evening.] AMOXICILLIN 96156920508 No Longer Active Garcia Stroud MD Active PREDNISONE 20 MG ORAL TABS 3 daily for 3 days than, 2 tabs daily for 3 days than, 2 tabs daily for 3 days than, 1 tab daily for 3 days than 1/2 tab daily for 3 days. PREDNISONE 40408726848 No Longer Active Tracie Arrington APRN Active FLUTICASONE PROPIONATE 50 MCG/ACT SUSP 1 to 2 sprays each nostril daily 08/21 FLUTICASONE PROPIONATE 89603247630 Active Simona Galloway APRN Active PREDNISONE 10 MG TAB take 1 tab po qday for severe COPD PREDNISONE 08901396783 Active Austin Albarado MD Active PREDNISONE 20 MG ORAL TABS 3 TABS PO FOR 3 DAYS,THAN 2 TABS FOR 3 DAYS THAN, 1 TAB FOR 3 DAYS THAN, 1/2 TAB FOR 3 DAYS. PREDNISONE 94026566543 No Longer Active Austin Albarado MD Active LEVAQUIN 500 MG TAB 1 tablet by mouth daily for 10 days. LEVOFLOXACIN 66501729003 No Longer Active Austin Albarado MD Active PREDNISONE 20 MG TAB take 3 tabs daily for 3 days, 2 tabs daily for 3 days, 1 tab daily for 3 days, 1/2 tab daily for 3 days PREDNISONE 79021833105 No Longer Active Simona Galloway APRN Active ZITHROMAX 1 GM ORAL PACK DIRECTED AZITHROMYCIN 34732601583 No Longer Active Simona Galloway APRN Active PREDNISONE 20 MG TAB 2 tabs daily for 4 days, 1 tab daily for 4 days, 1/2 tab daily for 4 days PREDNISONE 75161161514 No Longer Active Austin Albarado MD Active LEVAQUIN 500 MG TAB 1 tablet by mouth daily LEVOFLOXACIN 95715143836 No Longer Active Austin Albarado MD Active PREDNISONE 20 MG TAB take 3 tabs daily for 3 days, 2 tabs daily for 3 days, 1 tab daily for 3 days, 1/2 tab daily for 3 days PREDNISONE 63872602800 No Longer Active Austin Albarado MD Active DOXYCYCLINE HYCLATE 100 MG CAP 1 cap by mouth twice daily DOXYCYCLINE HYCLATE 07324450988 No Longer Active Esperanza Modi APRN Active ALBUTEROL SULFATE (2.5 MG/3ML) 0.083% NEBU nebulize 1 vial q 4-6 hours prn shortness of breath ALBUTEROL SULFATE 33392053900 No Longer Active Esperanza Modi APRN Active TORSEMIDE 20 MG TABS 1 TAB PO BID TORSEMIDE 24646084000 No Longer Active Esperanza Modi APRN Active PREDNISONE 20 MG TAB 2 tabs daily for 3 days, 1 tab daily for 3 days, 1/2 tab daily for 2 days PREDNISONE 38025201178 No Longer Active Austin Albarado MD Active LEVOFLOXACIN 500 MG ORAL TABS take 1 tab po qday LEVOFLOXACIN 85221206603 No Longer Active Austin Albarado MD Active PREDNISONE 20 MG TAB 2 tablets today, then 1 tablet by mouth days 2-5 PREDNISONE 24376436331 No Longer Active Austin Albarado MD Active AZITHROMYCIN 500 MG SOLR 1 po q day AZITHROMYCIN 67955306719 No Longer Active Austin Albarado MD Active KEFLEX 500 MG CAP 1 po TID x 7 days CEPHALEXIN 25281531484 No Longer Active Tristan Vaughn MD Active EQL VISION FORMULA TABS 1 TAB PO DAILY MULTIPLE VITAMINS-MINERALS 25401188938 No Longer Active Tristan Vaughn MD Active CHANTIX STARTING MONTH ELVIS 0.5 MG X 11 & 1 MG X 42 TABS 0.5mg daily for 3 days , then 0.5mg BID for 4 days, then 1mg BID VARENICLINE TARTRATE 88222447060 No Longer Active Tristan Vaughn MD Active LEVOTHYROXINE SODIUM 200 MCG TABS 1 TAB PO DAILY LEVOTHYROXINE SODIUM 38457468393 No Longer Active Tristan Vaughn MD Active LIOTHYRONINE SODIUM 50 MCG TABS take 1 tab po qday for hypothyroidism LIOTHYRONINE SODIUM 49079186886 No Longer Active Austin Albarado MD Active SYNTHROID 0.025 MG TAB 1 tablet by mouth daily LEVOTHYROXINE SODIUM 55635785533 No Longer Active Austin Albarado MD Active ARMOUR THYROID 120 MG TABS take 1 tab po qday for hypothyroidism THYROID 37475025373 Active Austin Albarado MD Active FLONASE 50 MCG/ACT SUSP 1 spray each nostril am and hs FLUTICASONE PROPIONATE Active Simona Galloway PATROL DRIVER Active ZITHROMAX 1 GM PACK DIRECTED AZITHROMYCIN 28730551320 No Longer Active Austin Albarado MD Active PREDNISONE 20 MG TAB 2 tabs daily for 3 days, 1 tab daily for 3 days, 1/2 tab daily for 2 days PREDNISONE 02900828779 No Longer Active Austin Albarado MD Active ZITHROMAX 250 MG TAB 2 po today, then 1 po q days 2-5 AZITHROMYCIN 41328865952 No Longer Active Austin Albarado MD Active NYSTATIN-TRIAMCINOLONE 468291-5.1 UNIT/GM-% OINT Apply to affected area TID NYSTATIN-TRIAMCINOLONE 35627560613 Active Austin Albarado MD Active IPRATROPIUM-ALBUTEROL 0.5-2.5 (3) MG/3ML SOLN 1 VIAL NEB Q 6 HRS PRN IPRATROPIUM-ALBUTEROL 39336123142 Active Austin Albarado MD Active PROAIR HFA 108 (90 BASE) MCG/ACT AERS take 1-2 puffs q4hrs prn cough/ SOB ALBUTEROL SULFATE 89567777875 Active Austin Albarado MD Active ADVAIR DISKUS 500-50 MCG/DOSE AEPB ONE INH BID FLUTICASONE- SALMETEROL 40570606584 Active Austin Albarado MD Active ZITHROMAX 1 GM PACK DIRECTED ZITHROMAX 1 GM PACK 364698 AZITHROMYCIN Inactive SYNTHROID 0.025 MG TAB 1 tablet by mouth daily SYNTHROID 0.025 MG TAB 565817 LEVOTHYROXINE SODIUM Inactive LIOTHYRONINE SODIUM 50 MCG TABS take 1 tab po qday for hypothyroidism LIOTHYRONINE SODIUM 50 MCG TABS 796502 LIOTHYRONINE SODIUM Inactive LEVOTHYROXINE SODIUM 200 MCG TABS 1 TAB PO DAILY LEVOTHYROXINE SODIUM 200 MCG TABS 096733 LEVOTHYROXINE SODIUM Inactive CHANTIX STARTING MONTH ELVIS [...] po q day AZITHROMYCIN 500 MG SOLR 88303061836 AZITHROMYCIN Inactive PREDNISONE 20 MG TAB 2 tablets today, then 1 tablet by mouth days 2-5 PREDNISONE 20 MG TAB 348296 PREDNISONE Inactive TORSEMIDE 20 MG TABS 1 TAB PO BID TORSEMIDE 20 MG TABS 926601 TORSEMIDE Inactive ALBUTEROL SULFATE (2.5 MG/3ML) 0.083% NEBU nebulize 1 vial q 4-6 hours prn shortness of breath ALBUTEROL SULFATE (2.5 MG/3ML) 0.083% NEBU 337651 ALBUTEROL SULFATE Inactive LEVAQUIN 500 MG TAB 1 tablet by mouth daily LEVAQUIN 500 MG TAB 310646 LEVOFLOXACIN Inactive PREDNISONE 20 MG TAB 2 tabs daily for 4 days, 1 tab daily for 4 days, 1/2 tab daily for 4 days PREDNISONE 20 MG TAB 255571 PREDNISONE Inactive ZITHROMAX 1 GM ORAL PACK DIRECTED ZITHROMAX 1 GM ORAL PACK 946517 AZITHROMYCIN Inactive LEVAQUIN 500 MG TAB 1 tablet by mouth daily for 10 days. LEVAQUIN 500 MG TAB 206468 LEVOFLOXACIN Inactive PREDNISONE 20 MG ORAL TABS 3 TABS PO FOR 3 DAYS,THAN 2 TABS FOR 3 DAYS THAN, 1 TAB FOR 3 DAYS THAN, 1/2 TAB FOR 3 DAYS. PREDNISONE 20 MG ORAL TABS 290387 PREDNISONE Inactive PREDNISONE 20 MG ORAL TABS 3 daily for 3 days than, 2 tabs daily for 3 days than, 2 tabs daily for 3 days than, 1 tab daily for 3 days than 1/2 tab daily for 3 days. PREDNISONE 20 MG ORAL TABS 964203 PREDNISONE Inactive AMOXICILLIN 500 MG ORAL TABS Take one by mouth 3 times daily, morning, afternoon and evening.] AMOXICILLIN 500 MG ORAL TABS 526770 AMOXICILLIN Inactive ZITHROMAX 250 MG TAB 2 po today, then 1 po q days 2-5 ZITHROMAX 250 MG TAB 8402844 AZITHROMYCIN Inactive PREDNISONE 20 MG TAB 2 tabs daily for 3 days, 1 tab daily for 3 days, 1/2 tab daily for 2 days PREDNISONE 20 MG TAB 893488 PREDNISONE Inactive KEFLEX 500 MG CAP 1 po TID x 7 days KEFLEX 500 MG CAP 635975 CEPHALEXIN Inactive LEVOFLOXACIN 500 MG ORAL TABS take 1 tab po qday LEVOFLOXACIN 500 MG ORAL TABS 288910 LEVOFLOXACIN Inactive PREDNISONE 20 MG TAB 2 tabs daily for 3 days, 1 tab daily for 3 days, 1/2 tab daily for 2 days PREDNISONE 20 MG TAB 752379 PREDNISONE Inactive DOXYCYCLINE HYCLATE 100 MG CAP 1 cap by mouth twice daily DOXYCYCLINE HYCLATE 100 MG CAP 2997693 DOXYCYCLINE HYCLATE Inactive PREDNISONE 20 MG TAB take 3 tabs daily for 3 days, 2 tabs daily for 3 days, 1 tab daily for 3 days, 1/2 tab daily for 3 days PREDNISONE 20 MG TAB 762265 PREDNISONE Inactive PREDNISONE 20 MG TAB take 3 tabs daily for 3 days, 2 tabs daily for 3 days, 1 tab daily for 3 days, 1/2 tab daily for 3 days PREDNISONE 20 MG TAB 699102 PREDNISONE Inactive Advance Directives Directive Description Start [...] ... - Chemistry cholesterol, serum 136 mg/dL 000-199 1091/10/06 triglyceride, serum, fasting 30 mg/dL 30-200 HDL cholesterol, serum 57 mg/dL 32-96 LDL cholesterol, serum 73 mg/dL 0-130 prostate specific antigen 1.45 ng/mL 0.00-4.00 thyroxine, serum, free 0.80 ng/dL 0.76-1.46 TSH 14.03 m[iU]/mL 0.36-3.74 Lab Report: Thyroid Stimulating Hormone (L), Comp. Metabolic Panel, CBC, ... - Chemistry TSH 43.52 m[iU]/mL 0.36-3.74 sodium, serum 140 mmol/L 338-121 3919/04/06 carbon dioxide, venous blood 36.3 mmol/L 21.0-32.0 potassium, serum 4.9 mmol/L 3.5-5.2 chloride, serum 100 mmol/L 98-107 blood glucose 62 mg/dL 65-110 urea nitrogen, blood 24 mg/dL 7-18 creatinine, serum 1.09 mg/dL 0.55-1.30 alanine aminotransferase (SGPT), serum 44 U/L 12-78 aspartate aminotransferase (SGOT), serum 25 U/L 15-37 calcium, serum 8.7 mg/dL 8.5-10.1 bilirubin, serum, total 0.50 mg/dL 0.00-1.00 cholesterol, serum 189 mg/dL 880-902 4444/04/06 triglyceride, serum, fasting 117 mg/dL 30-200 HDL [...] 142-424 Encounters Code Encounter Date Provider Facility CPT-63373 Level 4 Est. Patient 23:08:56 CDT Austin Albarado MD [facility] CPT-80024 Level 4 Est. Patient 13:27:28 CDT [facility] Est[facility] Patient 10:51:20 CDT Austin Albarado MD [facility]-78397 Level 4 Est. Patient 20:09:43 SALES REPRESENTATIVE BUSINESS COURSES Austin Albarado MD [facility]-49529 Level 4 Est. Patient 21:00:28 CDT Austin Albarado MD [facility] CPT-89026 Level 4 Est. Patient 10:03:37 CDT Austin Albarado MD [facility]-94877 Level 3 Est. Patient 10:50:28 SALES REPRESENTATIVE BUSINESS COURSES Austin Albarado MD [facility]-61043 Level 4 Est. Patient 21:31:41 SALES REPRESENTATIVE BUSINESS COURSES Austin Albarado MD [facility]-05191 Level 3 Est. Patient 16:22:54 SALES REPRESENTATIVE BUSINESS COURSES Jann Law DO [facility] CPT-05630 Level 3 Est. Patient 11:04:53 SALES REPRESENTATIVE BUSINESS COURSES Tristan Vaughn MD [facility] CPT-40321 Level 4 Est. Patient 09:50:59 CDT Austin Albarado MD [facility]-53179 Level 4 Est. Patient 09:29:00 CDT Austin Albarado MD [facility]-28785 Level 4 Est. Patient 14:23:07 CDT Austin Albarado MD [facility]-13335 Level 4 Est. Patient 14:27:26 CDT Austin Albarado MD [facility]-39674 Level 4 Est. Patient 12:51:43 SALES REPRESENTATIVE BUSINESS COURSES Austin Albarado MD [facility] CPT-15492 Level 3 New Patient 14:17:38 SALES REPRESENTATIVE BUSINESS COURSES Austin Albarado MD [facility] CPT-68781 Level 3 New Patient 11:28:18 SALES REPRESENTATIVE BUSINESS COURSES Austin Albarado MD [facility] Procedures Code Procedure Name Date Entry Date Standard Description CPT-G0009 Administration of Pneumococcal Vaccine 13:25:27 CDT CPT-98114 Prevnar 13 Intramuscular Suspension 13:25:27 CDT 09/26 CPT-G0438 Initial Annual Wellness Exam 11:28:26 CDT CPT-46235 Chest 2V Frontal and Lat 15:00:00 SALES REPRESENTATIVE BUSINESS COURSES CPT-75050 Breathing Tx 14:49:25 SALES REPRESENTATIVE BUSINESS COURSES CPT-59296 Fluzone High Dose 15:08:41 SALES REPRESENTATIVE BUSINESS COURSES CPT-00724 Immunization Single Admin 15:08:41 SALES REPRESENTATIVE BUSINESS COURSES CPT-68731 Fluzone High Dose 17:31:19 CDT CPT-85777 Administration single or combination vaccine inc oral 17 :31:19 CDT CPT-73182 Venipuncture Draw Fee 11:03:05 CDT CPT-TCMM Transitional Care Mgmt-Moderate 16:32:35 CDT CPT-92078 Chest 2V Frontal and Lat 11:51:09 CDT CPT-G0008 Administration of Influenza Virus Vaccine 15:09:08 CDT CPT-08517 Fluzone High-Dose Intramuscular Suspension 15:09:08 CDT CPT-02080 Administration single or combination vaccine inc oral 17 :07:02 SALES REPRESENTATIVE BUSINESS COURSES CPT-94183 Influenza High Dose age 65+ 17:07:02 SALES REPRESENTATIVE BUSINESS COURSES
--- OUTSIDE RECORDS SUMMARY | 2017-02-27 22:44 | XMS REPORT | Clinical Summary ---
Author Author Admin, LEE Organization [facility] Address Unknown Phone Unavailable Allergies, Adverse [...] 1/2 tab daily for 4 days PREDNISONE 38479132097 Active 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 RAMP SUPERVISOR Active DOXYCYCLINE HYCLATE 100 MG CAP 1 cap by mouth twice daily DOXYCYCLINE HYCLATE 04835512614 No Longer Active 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 RAMP SUPERVISOR Active ALBUTEROL SULFATE (2.5 MG/3ML) 0.083% NEBU nebulize 1 vial q 4-6 hours prn shortness of breath ALBUTEROL SULFATE 55099736540 No Longer Active 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 RAMP SUPERVISOR Active TORSEMIDE 20 MG TABS 1 TAB PO BID TORSEMIDE 27433264068 No Longer Active 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 RAMP SUPERVISOR Active PREDNISONE 20 MG TAB 2 tabs daily for 3 days, 1 tab daily for 3 days, 1/2 tab daily for 2 days PREDNISONE 19822073895 No Longer Active Austin Albarado MD Active LEVOFLOXACIN 500 MG ORAL TABS take 1 tab po qday LEVOFLOXACIN 35043483982 No Longer Active Austin Albarado MD Active PREDNISONE 20 MG TAB 2 tablets today, then 1 tablet by mouth days 2-5 PREDNISONE 27257755981 No Longer Active Austin Albarado MD Active AZITHROMYCIN 500 MG SOLR 1 po q day AZITHROMYCIN 36532001156 No Longer Active Austin Albarado MD Active KEFLEX 500 MG CAP 1 po TID x 7 days CEPHALEXIN 24943141355 No Longer Active Tristan Vaughn MD Active EQL VISION FORMULA TABS 1 TAB PO DAILY MULTIPLE VITAMINS-MINERALS 01252811319 No Longer Active Tristan Vaughn MD Active CHANTIX STARTING MONTH ELVIS 0.5 MG X 11 & 1 MG X 42 TABS 0.5mg daily for 3 days , then 0.5mg BID for 4 days, then 1mg BID VARENICLINE TARTRATE 64010827649 No Longer Active Tristan Vaughn MD Active LEVOTHYROXINE SODIUM 200 MCG TABS 1 TAB PO DAILY LEVOTHYROXINE SODIUM 40782940299 No Longer Active Tristan Vaughn MD Active LIOTHYRONINE SODIUM 50 MCG TABS take 1 tab po qday for hypothyroidism LIOTHYRONINE SODIUM 88102325253 No Longer Active Austin Albarado MD Active SYNTHROID 0.025 MG TAB 1 tablet by mouth daily LEVOTHYROXINE SODIUM 86133514230 No Longer Active Austin Albarado MD Active ARMOUR THYROID 120 MG TABS take 1 tab po qday for hypothyroidism THYROID 63971925036 Active Austin Albarado MD Active FLONASE 50 MCG/ACT SUSP 1 spray each nostril am and hs FLUTICASONE PROPIONATE 04851482683 Active Austin Albarado MD Active ZITHROMAX 1 GM PACK DIRECTED AZITHROMYCIN 34484326911 No Longer Active Austin Albarado MD Active PREDNISONE 20 MG TAB 2 tabs daily for 3 days, 1 tab daily for 3 days, 1/2 tab daily for 2 days PREDNISONE 56595945422 No Longer Active Austin Albarado MD Active ZITHROMAX 250 MG TAB 2 po today, then 1 po q days 2-5 AZITHROMYCIN 99697909496 No Longer Active Austin Albarado MD Active NYSTATIN-TRIAMCINOLONE 123716-9.1 UNIT/GM-% OINT Apply to affected area TID NYSTATIN-TRIAMCINOLONE 78962242188 Active Austin Albarado MD Active IPRATROPIUM-ALBUTEROL 0.5-2.5 (3) MG/3ML SOLN 1 VIAL NEB Q 6 HRS PRN IPRATROPIUM-ALBUTEROL 43538092233 Active Austin Albarado MD Active PROAIR HFA 108 (90 BASE) MCG/ACT AERS take 1-2 puffs q4hrs prn cough/ SOB ALBUTEROL SULFATE 20911063405 Active Austin Albarado MD Active ADVAIR DISKUS 500-50 MCG/DOSE AEPB ONE INH BID FLUTICASONE- SALMETEROL 80021925419 Active Austin Albarado MD Active ZITHROMAX 1 GM PACK DIRECTED ZITHROMAX 1 GM PACK 288005 AZITHROMYCIN Inactive SYNTHROID 0.025 MG TAB 1 tablet by mouth daily SYNTHROID 0.025 MG TAB 773689 LEVOTHYROXINE SODIUM Inactive LIOTHYRONINE SODIUM 50 MCG TABS take 1 tab po qday for hypothyroidism LIOTHYRONINE SODIUM 50 MCG TABS 801268 LIOTHYRONINE SODIUM Inactive LEVOTHYROXINE SODIUM 200 MCG TABS 1 TAB PO DAILY LEVOTHYROXINE SODIUM 200 MCG TABS 955064 LEVOTHYROXINE SODIUM Inactive CHANTIX STARTING MONTH ELVIS [...] po q day AZITHROMYCIN 500 MG SOLR 953399 AZITHROMYCIN Inactive PREDNISONE 20 MG TAB 2 tablets today, then 1 tablet by mouth days 2-5 PREDNISONE 20 MG TAB 029853 PREDNISONE Inactive TORSEMIDE 20 MG TABS 1 TAB PO BID TORSEMIDE 20 MG TABS 721084 TORSEMIDE Inactive ALBUTEROL SULFATE (2.5 MG/3ML) 0.083% NEBU nebulize 1 vial q 4-6 hours prn shortness of breath ALBUTEROL SULFATE (2.5 MG/3ML) 0.083% NEBU 634447 ALBUTEROL SULFATE Inactive ZITHROMAX 250 MG TAB 2 po today, then 1 po q days 2-5 ZITHROMAX 250 MG TAB 2971372 AZITHROMYCIN Inactive PREDNISONE 20 MG TAB 2 tabs daily for 3 days, 1 tab daily for 3 days, 1/2 tab daily for 2 days PREDNISONE 20 MG TAB 318233 PREDNISONE Inactive KEFLEX 500 MG CAP 1 po TID x 7 days KEFLEX 500 MG CAP 074607 CEPHALEXIN Inactive LEVOFLOXACIN 500 MG ORAL TABS take 1 tab po qday LEVOFLOXACIN 500 MG ORAL TABS 321550 LEVOFLOXACIN Inactive PREDNISONE 20 MG TAB 2 tabs daily for 3 days, 1 tab daily for 3 days, 1/2 tab daily for 2 days PREDNISONE 20 MG TAB 667660 PREDNISONE Inactive DOXYCYCLINE HYCLATE 100 MG CAP 1 cap by mouth twice daily DOXYCYCLINE HYCLATE 100 MG CAP 241730 DOXYCYCLINE HYCLATE Inactive Advance Directives Directive Description [...] ... - Chemistry sodium, serum 140 mmol/L 348-484 2757/03/09 potassium, serum 4.9 mmol/L 3.5-5.2 chloride, serum [...] ... - Chemistry sodium, serum 140 mmol/L 304-197 1149/04/03 potassium, serum 4.9 mmol/L 3.5-5.2 chloride, serum [...] 0.60 mg/dL 0.00-1.00 cholesterol, serum 163 mg/dL 383-600 2972/04/03 triglyceride, serum, fasting 50 mg/dL 30-200 HDL [...] 0.36-3.74 Encounters Code Encounter Date Provider Facility CPT-39365 Level 3 Est. Patient 10:50:28 DISPUTE RESOLUTION SPECIALIST Austin Albarado MD [facility] CPT-90043 Level 4 Est. Patient 21:31:41 DISPUTE RESOLUTION SPECIALIST Austin Albarado MD [facility] CPT-59775 Level 3 Est. Patient 16:22:54 DISPUTE RESOLUTION SPECIALIST Jann Law DO [facility] CPT-92605 Level 3 Est. Patient 11:04:53 DISPUTE RESOLUTION SPECIALIST Tristan Vaughn MD [facility] CPT-62396 Level 4 Est. Patient 09:50:59 CDT Austin Albarado MD [facility] CPT-54908 Level 4 Est. Patient 09:29:00 CDT Austin Albarado MD [facility] CPT-01366 Level 4 Est. Patient 14:23:07 CDT Austin Albarado MD [facility] CPT-98214 Level 4 Est. Patient 14:27:26 CDT Austin Albarado MD [facility] CPT-80947 Level 4 Est. Patient 12:51:43 DISPUTE RESOLUTION SPECIALIST Austin Albarado MD [facility] CPT-80425 Level 3 New Patient 14:17:38 DISPUTE RESOLUTION SPECIALIST Austin Albarado MD [facility] CPT-35402 Level 3 New Patient 11:28:18 DISPUTE RESOLUTION SPECIALIST Austin Albarado MD [facility] Procedures Code Procedure Name Date Entry Date Standard Description CPT-90127 Chest 2V Frontal and Lat 11:51:09 CDT CPT-G0008 Administration of Influenza Virus Vaccine 15:09:08 CDT CPT-42791 Fluzone High-Dose Intramuscular Suspension 15:09:08 CDT CPT-01801 Administration single or combination vaccine inc oral 17 :07:02 DISPUTE RESOLUTION SPECIALIST CPT-50856 Influenza High Dose age 65+ 17:07:02 DISPUTE RESOLUTION SPECIALIST
--- OUTSIDE RECORDS SUMMARY | 2017-02-27 22:44 | XMS REPORT | Clinical Summary ---
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 Tracie Arrington [employer] Chronic airway obstruction, not elsewhere classified Family history of myocardial infarction V17.3 Active Tracie Arrington [employer] Family history of ischemic heart disease CAD 414.00 Active Tracie Arrington [employer] Coronary atherosclerosis of unspecified type of vessel, navajo or graft Peripheral edema 782.3 Active Austin [...] 1 po BID x 7 days CEPHALEXIN 85442644406 Active Mica Sneed Active KEFLEX 500 MG CAP 1 po BID x 7 days CEPHALEXIN 64527910275 No Longer Active Simona Galloway APRN Active ACYCLOVIR 400 MG TABS 1 pill three times daily ACYCLOVIR 91342173306 No Longer Active Austin Albarado MD Active ACYCLOVIR 400 MG TABS 1 pill three times daily ACYCLOVIR 08830145772 No Longer Active Austin Albarado MD Active ALBUTEROL SULFATE 0.083 % NEBU SOLN one vial per nebulizer every 4 hours as needed Dx. J44.1 ALBUTEROL SULFATE 31096624632 Active Austin Albarado MD Active IPRATROPIUM BROMIDE 0.02 % INH SOLN 1 q 6 hr PRN Dx: J44.1 IPRATROPIUM BROMIDE 49699706891 Active Nella José LPN Active PROAIR HFA 108 (90 BASE) MCG/ACT AERS take 1-2 puffs q 4-6 hrs prn cough/ SOB ALBUTEROL SULFATE 26224410490 Active Nella José LPN Active IPRATROPIUM-ALBUTEROL 0.5-2.5 (3) MG/3ML SOLN 1 VIAL NEB Q 4-6 HRS PRN 04/18 IPRATROPIUM-ALBUTEROL 64765829801 No Longer Active Austin Albarado MD Active ATIVAN 0.5 MG TAB 1 po QD PRN Anxiety LORAZEPAM 46926371944 Active Austin Albarado MD Active PREDNISONE 20 MG ORAL TABS 3 tabs po for 3 days than,2 tabs po for 3 days,1 tab po for 3 days, 1/2 tab po for 3 days. PREDNISONE 70824405088 No Longer Active Simona Galloway APRN Active LEVAQUIN 500 MG TAB 1 tablet by mouth daily LEVOFLOXACIN 17135956739 No Longer Active Simona Galloway APRN Active PREDNISONE 20 MG TAB take 3 tabs daily for 3 days, 2 tabs daily for 3 days, 1 tab daily for 3 days, 1/2 tab daily for 3 days PREDNISONE 09547995693 No Longer Active Austin Albarado MD Active LEVAQUIN 500 MG TAB 1 tablet by mouth daily LEVOFLOXACIN 92367575650 No Longer Active Madhavi Fiore Active FUROSEMIDE 20 MG TABS take 1 tab po BID for swelling FUROSEMIDE 43852978389 Active Austin Albarado MD Active AMOXICILLIN 500 MG ORAL TABS Take one by mouth 3 times daily, morning, afternoon and evening.] AMOXICILLIN 91080844662 No Longer Active Garcia Stroud MD Active PREDNISONE 20 MG ORAL TABS 3 daily for 3 days than, 2 tabs daily for 3 days than, 2 tabs daily for 3 days than, 1 tab daily for 3 days than 1/2 tab daily for 3 days. PREDNISONE 26797076162 No Longer Active Tracie Arrington APRN Active FLUTICASONE PROPIONATE 50 MCG/ACT SUSP 1 to 2 sprays each nostril daily 08/21 FLUTICASONE PROPIONATE 15676206530 Active Simona Galloway APRN Active PREDNISONE 10 MG TAB take 1 tab po qday for severe COPD PREDNISONE 23152427150 Active Austin Albarado MD Active PREDNISONE 20 MG ORAL TABS 3 TABS PO FOR 3 DAYS,THAN 2 TABS FOR 3 DAYS THAN, 1 TAB FOR 3 DAYS THAN, 1/2 TAB FOR 3 DAYS. PREDNISONE 02323994057 No Longer Active Austin Albarado MD Active LEVAQUIN 500 MG TAB 1 tablet by mouth daily for 10 days. LEVOFLOXACIN 98451350545 No Longer Active Austin Albarado MD Active PREDNISONE 20 MG TAB take 3 tabs daily for 3 days, 2 tabs daily for 3 days, 1 tab daily for 3 days, 1/2 tab daily for 3 days PREDNISONE 26115443512 No Longer Active Simona Galloway APRN Active ZITHROMAX 1 GM ORAL PACK DIRECTED AZITHROMYCIN 40333641303 No Longer Active Simona Galloway APRN Active PREDNISONE 20 MG TAB 2 tabs daily for 4 days, 1 tab daily for 4 days, 1/2 tab daily for 4 days PREDNISONE 55686237139 No Longer Active Austin Albarado MD Active LEVAQUIN 500 MG TAB 1 tablet by mouth daily LEVOFLOXACIN 18010446763 No Longer Active Austin Albarado MD Active PREDNISONE 20 MG TAB take 3 tabs daily for 3 days, 2 tabs daily for 3 days, 1 tab daily for 3 days, 1/2 tab daily for 3 days PREDNISONE 11987718622 No Longer Active Austin Albarado MD Active DOXYCYCLINE HYCLATE 100 MG CAP 1 cap by mouth twice daily DOXYCYCLINE HYCLATE 01137056445 No Longer Active 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 [employer] Active ALBUTEROL SULFATE (2.5 MG/3ML) 0.083% NEBU nebulize 1 vial q 4-6 hours prn shortness of breath ALBUTEROL SULFATE 11827639285 No Longer Active 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 [employer] Active TORSEMIDE 20 MG TABS 1 TAB PO BID TORSEMIDE 42991810817 No Longer Active 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 [employer] Active PREDNISONE 20 MG TAB 2 tabs daily for 3 days, 1 tab daily for 3 days, 1/2 tab daily for 2 days PREDNISONE 52937345058 No Longer Active Austin Albarado MD Active LEVOFLOXACIN 500 MG ORAL TABS take 1 tab po qday LEVOFLOXACIN 29017053761 No Longer Active Austin Albarado MD Active PREDNISONE 20 MG TAB 2 tablets today, then 1 tablet by mouth days 2-5 PREDNISONE 74960805784 No Longer Active Austin Albarado MD Active AZITHROMYCIN 500 MG SOLR 1 po q day AZITHROMYCIN 64292954899 No Longer Active Austin Albarado MD Active KEFLEX 500 MG CAP 1 po TID x 7 days CEPHALEXIN 93969575037 No Longer Active Tristan Vaughn MD Active EQL VISION FORMULA TABS 1 TAB PO DAILY MULTIPLE VITAMINS-MINERALS 83135412390 No Longer Active Tristan Vaughn MD Active CHANTIX STARTING MONTH ELVIS 0.5 MG X 11 & 1 MG X 42 TABS 0.5mg daily for 3 days , then 0.5mg BID for 4 days, then 1mg BID VARENICLINE TARTRATE 70417695211 No Longer Active Tristan Vaughn MD Active LEVOTHYROXINE SODIUM 200 MCG TABS 1 TAB PO DAILY LEVOTHYROXINE SODIUM 86816746518 No Longer Active Tristan Vaughn MD Active LIOTHYRONINE SODIUM 50 MCG TABS take 1 tab po qday for hypothyroidism LIOTHYRONINE SODIUM 53979905916 No Longer Active Austin Albarado MD Active SYNTHROID 0.025 MG TAB 1 tablet by mouth daily LEVOTHYROXINE SODIUM 76497516573 No Longer Active Austin Albarado MD Active ARMOUR THYROID 120 MG TABS take 1 tab po qday for hypothyroidism THYROID 59802640907 Active Austin Albarado MD Active FLONASE 50 MCG/ACT SUSP 1 spray each nostril am and hs FLUTICASONE PROPIONATE Active Simona Galloway APRN Active ZITHROMAX 1 GM PACK DIRECTED AZITHROMYCIN 87917143486 No Longer Active Austin Albarado MD Active PREDNISONE 20 MG TAB 2 tabs daily for 3 days, 1 tab daily for 3 days, 1/2 tab daily for 2 days PREDNISONE 63530051409 No Longer Active Austin Albarado MD Active ZITHROMAX 250 MG TAB 2 po today, then 1 po q days 2-5 AZITHROMYCIN 39568970432 No Longer Active Austin Albarado MD Active NYSTATIN-TRIAMCINOLONE 169206-3.1 UNIT/GM-% OINT Apply to affected area TID NYSTATIN-TRIAMCINOLONE 23834810356 Active Austin Albarado MD Active ADVAIR DISKUS 500-50 MCG/DOSE AEPB ONE INH BID FLUTICASONE- SALMETEROL 54527031186 Active Austin Albarado MD Active ZITHROMAX 1 GM PACK DIRECTED ZITHROMAX 1 GM PACK 625755 AZITHROMYCIN Inactive SYNTHROID 0.025 MG TAB 1 tablet by mouth daily SYNTHROID 0.025 MG TAB 322105 LEVOTHYROXINE SODIUM Inactive LIOTHYRONINE SODIUM 50 MCG TABS take 1 tab po qday for hypothyroidism LIOTHYRONINE SODIUM 50 MCG TABS 323014 LIOTHYRONINE SODIUM Inactive LEVOTHYROXINE SODIUM 200 MCG TABS 1 TAB PO DAILY LEVOTHYROXINE SODIUM 200 MCG TABS 712076 LEVOTHYROXINE SODIUM Inactive CHANTIX STARTING MONTH ELVIS [...] po q day AZITHROMYCIN 500 MG SOLR 11348856268 AZITHROMYCIN Inactive PREDNISONE 20 MG TAB 2 tablets today, then 1 tablet by mouth days 2-5 PREDNISONE 20 MG TAB 620434 PREDNISONE Inactive TORSEMIDE 20 MG TABS 1 TAB PO BID TORSEMIDE 20 MG TABS 770180 TORSEMIDE Inactive ALBUTEROL SULFATE (2.5 MG/3ML) 0.083% NEBU nebulize 1 vial q 4-6 hours prn shortness of breath ALBUTEROL SULFATE (2.5 MG/3ML) 0.083% NEBU 854460 ALBUTEROL SULFATE Inactive LEVAQUIN 500 MG TAB 1 tablet by mouth daily LEVAQUIN 500 MG TAB 347573 LEVOFLOXACIN Inactive PREDNISONE 20 MG TAB 2 tabs daily for 4 days, 1 tab daily for 4 days, 1/2 tab daily for 4 days PREDNISONE 20 MG TAB 259228 PREDNISONE Inactive ZITHROMAX 1 GM ORAL PACK DIRECTED ZITHROMAX 1 GM ORAL PACK 751695 AZITHROMYCIN Inactive LEVAQUIN 500 MG TAB 1 tablet by mouth daily for 10 days. LEVAQUIN 500 MG TAB 929124 LEVOFLOXACIN Inactive PREDNISONE 20 MG ORAL TABS 3 TABS PO FOR 3 DAYS,THAN 2 TABS FOR 3 DAYS THAN, 1 TAB FOR 3 DAYS THAN, 1/2 TAB FOR 3 DAYS. PREDNISONE 20 MG ORAL TABS 673307 PREDNISONE Inactive PREDNISONE 20 MG ORAL TABS 3 daily for 3 days than, 2 tabs daily for 3 days than, 2 tabs daily for 3 days than, 1 tab daily for 3 days than 1/2 tab daily for 3 days. PREDNISONE 20 MG ORAL TABS 162354 PREDNISONE Inactive AMOXICILLIN 500 MG ORAL TABS Take one by mouth 3 times daily, morning, afternoon and evening.] AMOXICILLIN 500 MG ORAL TABS 124474 AMOXICILLIN Inactive LEVAQUIN 500 MG TAB 1 tablet by mouth daily LEVAQUIN 500 MG TAB 024955 LEVOFLOXACIN Inactive LEVAQUIN 500 MG TAB 1 tablet by mouth daily LEVAQUIN 500 MG TAB 431490 LEVOFLOXACIN Inactive PREDNISONE 20 MG ORAL TABS 3 tabs po for 3 days than,2 tabs po for 3 days,1 tab po for 3 days, 1/2 tab po for 3 days. PREDNISONE 20 MG ORAL TABS 606142 PREDNISONE Inactive ZITHROMAX 250 MG TAB 2 po today, then 1 po q days 2-5 ZITHROMAX 250 MG TAB 9210592 AZITHROMYCIN Inactive PREDNISONE 20 MG TAB 2 tabs daily for 3 days, 1 tab daily for 3 days, 1/2 tab daily for 2 days PREDNISONE 20 MG TAB 036036 PREDNISONE Inactive KEFLEX 500 MG CAP 1 po TID x 7 days KEFLEX 500 MG CAP 879988 CEPHALEXIN Inactive LEVOFLOXACIN 500 MG ORAL TABS take 1 tab po qday LEVOFLOXACIN 500 MG ORAL TABS 118747 LEVOFLOXACIN Inactive PREDNISONE 20 MG TAB 2 tabs daily for 3 days, 1 tab daily for 3 days, 1/2 tab daily for 2 days PREDNISONE 20 MG TAB 820835 PREDNISONE Inactive DOXYCYCLINE HYCLATE 100 MG CAP 1 cap by mouth twice daily DOXYCYCLINE HYCLATE 100 MG CAP 3553532 DOXYCYCLINE HYCLATE Inactive PREDNISONE 20 MG TAB take 3 tabs daily for 3 days, 2 tabs daily for 3 days, 1 tab daily for 3 days, 1/2 tab daily for 3 days PREDNISONE 20 MG TAB 488894 PREDNISONE Inactive PREDNISONE 20 MG TAB take 3 tabs daily for 3 days, 2 tabs daily for 3 days, 1 tab daily for 3 days, 1/2 tab daily for 3 days PREDNISONE 20 MG TAB 569818 PREDNISONE Inactive PREDNISONE 20 MG TAB take 3 tabs daily for 3 days, 2 tabs daily for 3 days, 1 tab daily for 3 days, 1/2 tab daily for 3 days PREDNISONE 20 MG TAB 771599 PREDNISONE Inactive ACYCLOVIR 400 MG TABS 1 pill three times daily ACYCLOVIR 400 MG TABS 741287 ACYCLOVIR Inactive ACYCLOVIR 400 MG TABS 1 pill three times daily ACYCLOVIR 400 MG TABS 254113 ACYCLOVIR Inactive KEFLEX 500 MG CAP 1 po BID x 7 days KEFLEX 500 MG CAP 830959 CEPHALEXIN Inactive Advance Directives Directive Description Start [...] Peptide - Chemistry sodium, serum 140 mmol/L 301-265 4235/02/09 carbon dioxide, venous blood 39.2 mmol/L 21.0-32.0 [...] 0.00-1.00 Encounters Code Encounter Date Provider Facility CPT-67414 Level 3 Est. Patient 16:07:19 CDT Simona Galloway APRN [facility] CPT-27583 Level 4 Est. Patient 13:31:03 CDT Austin Albarado MD [facility] CPT-70643 Level 4 Est. Patient 17:54:41 EXPLOSIVE MAN Austin Albarado MD [facility] CPT-15552 Level 4 Est. Patient 16:11:14 EXPLOSIVE MAN Austin Albarado MD [facility] CPT-65972 Level 4 Est. Patient 23:08:56 CDT Austin Albarado MD [facility] CPT-45881 Level 4 Est. Patient 13:27:28 CDT Garcia Stroud MD [facility] CPT-52120 Level 4 Est. Patient 10:51:20 CDT Austin Albarado MD [facility] CPT-09160 Level 4 Est. Patient 20:09:43 EXPLOSIVE MAN Austin Albarado MD [facility] CPT-47396 Level 4 Est. Patient 21:00:28 CDT Austin Albarado MD [facility] CPT-48677 Level 4 Est. Patient 10:03:37 CDT Austin Albarado MD [facility] CPT-31636 Level 3 Est. Patient 10:50:28 EXPLOSIVE MAN Austin Albarado MD [facility] CPT-84004 Level 4 Est. Patient 21:31:41 EXPLOSIVE MAN Austin Albarado MD [facility] CPT-22389 Level 3 Est. Patient 16:22:54 EXPLOSIVE MAN Jann Law DO [facility] CPT-00112 Level 3 Est. Patient 11:04:53 EXPLOSIVE MAN Tristan Vaughn MD [facility] CPT-28095 Level 4 Est. Patient 09:50:59 CDT Austin Albarado MD [facility] CPT-53690 Level 4 Est. Patient 09:29:00 CDT Austin Albarado MD [facility] CPT-17415 Level 4 Est. Patient 14:23:07 CDT Austin Albarado MD [facility] CPT-91638 Level 4 Est. Patient 14:27:26 CDT Austin Albarado MD [facility] CPT-40722 Level 4 Est. Patient 12:51:43 EXPLOSIVE MAN Austin Albarado MD [facility] CPT-18890 Level 3 New Patient 14:17:38 EXPLOSIVE MAN Austin Albarado MD [facility] CPT-56450 Level 3 New Patient 11:28:18 EXPLOSIVE MAN Austin Albarado MD [facility] Procedures Code Procedure Name Date Entry Date Standard Description CPT-G0439 MC Subsequent Annual Wellness Exam 08:13:24 CDT CPT-TCMM Transitional Care Mgmt-Moderate 14:53:36 EXPLOSIVE MAN CPT-91239 No Charge Offi Visit 10:19:33 EXPLOSIVE MAN CPT-13450 Chest 2V Frontal and Lat - XRAY USE ONLY 15:01:41 EXPLOSIVE MAN CPT-20566 First Vx - Ix admin for Medicare patients 16:00:49 CDT CPT-69047 Fluzone High-Dose Intramuscular Suspension 16:00:49 CDT CPT-G0009 Administration of Pneumococcal Vaccine 13:25:27 CDT CPT-81092 Prevnar 13 Intramuscular Suspension 13:25:27 CDT 09/26 CPT-G0438 Initial Annual Wellness Exam 11:28:26 CDT CPT-10619 Chest 2V Frontal and Lat 15:00:00 EXPLOSIVE MAN CPT-39461 Breathing Tx 14:49:25 EXPLOSIVE MAN CPT-75102 Fluzone High Dose 15:08:41 EXPLOSIVE MAN CPT-84873 Immunization Single Admin 15:08:41 EXPLOSIVE MAN CPT-64874 Fluzone High Dose 17:31:19 CDT CPT-25320 Administration single or combination vaccine inc oral 17 :31:19 CDT CPT-12426 Venipuncture Draw Fee 11:03:05 CDT CPT-TCMM Transitional Care Mgmt-Moderate 16:32:35 CDT CPT-65314 Chest 2V Frontal and Lat 11:51:09 CDT CPT-G0008 Administration of Influenza Virus Vaccine 15:09:08 CDT CPT-07532 Fluzone High-Dose Intramuscular Suspension 15:09:08 CDT CPT-19729 Administration single or combination vaccine inc oral 17 :07:02 EXPLOSIVE MAN CPT-51375 Influenza High Dose age 65+ 17:07:02 EXPLOSIVE MAN
--- OUTSIDE RECORDS SUMMARY | 2017-02-27 22:45 | XMS REPORT | Clinical Summary ---
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 Tracie Arrington PAIN COORDINATOR Chronic airway obstruction, not elsewhere classified Family history of [facility].3 [facility] Family history of ischemic heart disease CAD 414.00 [facility] Coronary atherosclerosis of unspecified type of vessel, [place] or graft Peripheral edema 782.3 Active Austin Albarado MD Edema Shortness of breath 786.05 Active Simona Galloway PAIN COORDINATOR Shortness of breath Hypotension 458.9 Active Simona [...] TABS 1 pill three times daily ACYCLOVIR 86158166431 Active Austin Albarado MD Active ALBUTEROL SULFATE 0.083 % NEBU SOLN one vial per nebulizer every 4 hours as needed Dx. 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 ALBUTEROL SULFATE 45338631554 Active Austin Albarado MD Active IPRATROPIUM BROMIDE 0.02 % INH SOLN 1 q 6 hr PRN Dx: J44.1 IPRATROPIUM BROMIDE 31864865094 Active Nella José LPN Active PROAIR HFA 108 (90 BASE) MCG/ACT AERS take 1-2 puffs q 4-6 hrs prn cough/ SOB ALBUTEROL SULFATE 09692022938 Active Nella José LPN Active IPRATROPIUM-ALBUTEROL 0.5-2.5 (3) MG/3ML SOLN 1 VIAL NEB Q 4-6 HRS PRN 04/18 IPRATROPIUM-ALBUTEROL 17755942821 No Longer Active Austin Albarado MD Active ATIVAN 0.5 MG TAB 1 po QD PRN Anxiety LORAZEPAM 93367190719 Active Simona Galloway APRN Active PREDNISONE 20 MG ORAL TABS 3 tabs po for 3 days than,2 tabs po for 3 days,1 tab po for 3 days, 1/2 tab po for 3 days. PREDNISONE 20957175507 No Longer Active Simona Galloway APRN Active LEVAQUIN 500 MG TAB 1 tablet by mouth daily LEVOFLOXACIN 89248969105 No Longer Active Simona Galloway APRN Active PREDNISONE 20 MG TAB take 3 tabs daily for 3 days, 2 tabs daily for 3 days, 1 tab daily for 3 days, 1/2 tab daily for 3 days PREDNISONE 36511939210 No Longer Active Austin Albarado MD Active LEVAQUIN 500 MG TAB 1 tablet by mouth daily LEVOFLOXACIN 34281565974 No Longer Active Madhavi Raida Active FUROSEMIDE 20 MG TABS take 1 tab po BID for swelling FUROSEMIDE 23979634442 Active Austin Albarado MD Active AMOXICILLIN 500 MG ORAL TABS Take one by mouth 3 times daily, morning, afternoon and evening.] AMOXICILLIN 01625212474 No Longer Active Garcia Stroud MD Active PREDNISONE 20 MG ORAL TABS 3 daily for 3 days than, 2 tabs daily for 3 days than, 2 tabs daily for 3 days than, 1 tab daily for 3 days than 1/2 tab daily for 3 days. PREDNISONE 37995350501 No Longer Active Tracie Arrington APRN Active FLUTICASONE PROPIONATE 50 MCG/ACT SUSP 1 to 2 sprays each nostril daily 08/21 FLUTICASONE PROPIONATE 52992049094 Active Simona Galloway APRN Active PREDNISONE 10 MG TAB take 1 tab po qday for severe COPD PREDNISONE 16180975998 Active Austin Albarado MD Active PREDNISONE 20 MG ORAL TABS 3 TABS PO FOR 3 DAYS,THAN 2 TABS FOR 3 DAYS THAN, 1 TAB FOR 3 DAYS THAN, 1/2 TAB FOR 3 DAYS. PREDNISONE 40995125292 No Longer Active Austin Albarado MD Active LEVAQUIN 500 MG TAB 1 tablet by mouth daily for 10 days. LEVOFLOXACIN 37259619629 No Longer Active Austin Albarado MD Active PREDNISONE 20 MG TAB take 3 tabs daily for 3 days, 2 tabs daily for 3 days, 1 tab daily for 3 days, 1/2 tab daily for 3 days PREDNISONE 87900969588 No Longer Active Simona Galloway APRN Active ZITHROMAX 1 GM ORAL PACK DIRECTED AZITHROMYCIN 87742492845 No Longer Active Simona Galloway APRN Active PREDNISONE 20 MG TAB 2 tabs daily for 4 days, 1 tab daily for 4 days, 1/2 tab daily for 4 days PREDNISONE 00083250861 No Longer Active Austin Albarado MD Active LEVAQUIN 500 MG TAB 1 tablet by mouth daily LEVOFLOXACIN 16577353764 No Longer Active Austin Albarado MD Active PREDNISONE 20 MG TAB take 3 tabs daily for 3 days, 2 tabs daily for 3 days, 1 tab daily for 3 days, 1/2 tab daily for 3 days PREDNISONE 21263482644 No Longer Active Austin Albarado MD Active DOXYCYCLINE HYCLATE 100 MG CAP 1 cap by mouth twice daily DOXYCYCLINE HYCLATE 23590529979 No Longer Active Esperanza Modi APRN Active ALBUTEROL SULFATE (2.5 MG/3ML) 0.083% NEBU nebulize 1 vial q 4-6 hours prn shortness of breath ALBUTEROL SULFATE 62593622735 No Longer Active Esperanza Modi APRN Active TORSEMIDE 20 MG TABS 1 TAB PO BID TORSEMIDE 50120164347 No Longer Active Jillina Ly PAIN COORDINATOR Active PREDNISONE 20 MG TAB 2 tabs daily for 3 days, 1 tab daily for 3 days, 1/2 tab daily for 2 days PREDNISONE 52286297139 No Longer Active Austin Albarado MD Active LEVOFLOXACIN 500 MG ORAL TABS take 1 tab po qday LEVOFLOXACIN 75754798438 No Longer Active Austin Albarado MD Active PREDNISONE 20 MG TAB 2 tablets today, then 1 tablet by mouth days 2-5 PREDNISONE 51416872691 No Longer Active Austin Albarado MD Active AZITHROMYCIN 500 MG SOLR 1 po q day AZITHROMYCIN 91755158183 No Longer Active Austin Albarado MD Active KEFLEX 500 MG CAP 1 po TID x 7 days CEPHALEXIN 46018001403 No Longer Active Tristan Vaughn MD Active EQL VISION FORMULA TABS 1 TAB PO DAILY MULTIPLE VITAMINS-MINERALS 86837719866 No Longer Active Tristan Vaughn MD Active CHANTIX STARTING MONTH ELVIS 0.5 MG X 11 & 1 MG X 42 TABS 0.5mg daily for 3 days , then 0.5mg BID for 4 days, then 1mg BID VARENICLINE TARTRATE 55675816287 No Longer Active Tristan Vaughn MD Active LEVOTHYROXINE SODIUM 200 MCG TABS 1 TAB PO DAILY LEVOTHYROXINE SODIUM 74882058199 No Longer Active Tristan Vaughn MD Active LIOTHYRONINE SODIUM 50 MCG TABS take 1 tab po qday for hypothyroidism LIOTHYRONINE SODIUM 84854480392 No Longer Active Austin Albarado MD Active SYNTHROID 0.025 MG TAB 1 tablet by mouth daily LEVOTHYROXINE SODIUM 28546028495 No Longer Active Austin Albarado MD Active ARMOUR THYROID 120 MG TABS take 1 tab po qday for hypothyroidism THYROID 30103160237 Active Austin Albarado MD Active FLONASE 50 MCG/ACT SUSP 1 spray each nostril am and hs FLUTICASONE PROPIONATE Active Simona Galloway APRN Active ZITHROMAX 1 GM PACK DIRECTED AZITHROMYCIN 67126917137 No Longer Active Austin Albarado MD Active PREDNISONE 20 MG TAB 2 tabs daily for 3 days, 1 tab daily for 3 days, 1/2 tab daily for 2 days PREDNISONE 33927349455 No Longer Active Austin Albarado MD Active ZITHROMAX 250 MG TAB 2 po today, then 1 po q days 2-5 AZITHROMYCIN 65489005490 No Longer Active Austin Albarado MD Active NYSTATIN-TRIAMCINOLONE 346386-7.1 UNIT/GM-% OINT Apply to affected area TID NYSTATIN-TRIAMCINOLONE 75179878390 Active Austin Albarado MD Active ADVAIR DISKUS 500-50 MCG/DOSE AEPB ONE INH BID FLUTICASONE- SALMETEROL 72797566082 Active Austin Albarado MD Active ZITHROMAX 1 GM PACK DIRECTED ZITHROMAX 1 GM PACK 643596 AZITHROMYCIN Inactive SYNTHROID 0.025 MG TAB 1 tablet by mouth daily SYNTHROID 0.025 MG TAB 332691 LEVOTHYROXINE SODIUM Inactive LIOTHYRONINE SODIUM 50 MCG TABS take 1 tab po qday for hypothyroidism LIOTHYRONINE SODIUM 50 MCG TABS 889199 LIOTHYRONINE SODIUM Inactive LEVOTHYROXINE SODIUM 200 MCG TABS 1 TAB PO DAILY LEVOTHYROXINE SODIUM 200 MCG TABS 173633 LEVOTHYROXINE SODIUM Inactive CHANTIX STARTING MONTH ELVIS [...] po q day AZITHROMYCIN 500 MG SOLR 77443899359 AZITHROMYCIN Inactive PREDNISONE 20 MG TAB 2 tablets today, then 1 tablet by mouth days 2-5 PREDNISONE 20 MG TAB 495764 PREDNISONE Inactive TORSEMIDE 20 MG TABS 1 TAB PO BID TORSEMIDE 20 MG TABS 036683 TORSEMIDE Inactive ALBUTEROL SULFATE (2.5 MG/3ML) 0.083% NEBU nebulize 1 vial q 4-6 hours prn shortness of breath ALBUTEROL SULFATE (2.5 MG/3ML) 0.083% NEBU 852929 ALBUTEROL SULFATE Inactive LEVAQUIN 500 MG TAB 1 tablet by mouth daily LEVAQUIN 500 MG TAB 333765 LEVOFLOXACIN Inactive PREDNISONE 20 MG TAB 2 tabs daily for 4 days, 1 tab daily for 4 days, 1/2 tab daily for 4 days PREDNISONE 20 MG TAB 312306 PREDNISONE Inactive ZITHROMAX 1 GM ORAL PACK DIRECTED ZITHROMAX 1 GM ORAL PACK 583410 AZITHROMYCIN Inactive LEVAQUIN 500 MG TAB 1 tablet by mouth daily for 10 days. LEVAQUIN 500 MG TAB 157511 LEVOFLOXACIN Inactive PREDNISONE 20 MG ORAL TABS 3 TABS PO FOR 3 DAYS,THAN 2 TABS FOR 3 DAYS THAN, 1 TAB FOR 3 DAYS THAN, 1/2 TAB FOR 3 DAYS. PREDNISONE 20 MG ORAL TABS 935051 PREDNISONE Inactive PREDNISONE 20 MG ORAL TABS 3 daily for 3 days than, 2 tabs daily for 3 days than, 2 tabs daily for 3 days than, 1 tab daily for 3 days than 1/2 tab daily for 3 days. PREDNISONE 20 MG ORAL TABS 626503 PREDNISONE Inactive AMOXICILLIN 500 MG ORAL TABS Take one by mouth 3 times daily, morning, afternoon and evening.] AMOXICILLIN 500 MG ORAL TABS 835617 AMOXICILLIN Inactive LEVAQUIN 500 MG TAB 1 tablet by mouth daily LEVAQUIN 500 MG TAB 514480 LEVOFLOXACIN Inactive LEVAQUIN 500 MG TAB 1 tablet by mouth daily LEVAQUIN 500 MG TAB 646668 LEVOFLOXACIN Inactive PREDNISONE 20 MG ORAL TABS 3 tabs po for 3 days than,2 tabs po for 3 days,1 tab po for 3 days, 1/2 tab po for 3 days. PREDNISONE 20 MG ORAL TABS 324145 PREDNISONE Inactive ZITHROMAX 250 MG TAB 2 po today, then 1 po q days 2-5 ZITHROMAX 250 MG TAB 8806631 AZITHROMYCIN Inactive PREDNISONE 20 MG TAB 2 tabs daily for 3 days, 1 tab daily for 3 days, 1/2 tab daily for 2 days PREDNISONE 20 MG TAB 858611 PREDNISONE Inactive KEFLEX 500 MG CAP 1 po TID x 7 days KEFLEX 500 MG CAP 914988 CEPHALEXIN Inactive LEVOFLOXACIN 500 MG ORAL TABS take 1 tab po qday LEVOFLOXACIN 500 MG ORAL TABS 325339 LEVOFLOXACIN Inactive PREDNISONE 20 MG TAB 2 tabs daily for 3 days, 1 tab daily for 3 days, 1/2 tab daily for 2 days PREDNISONE 20 MG TAB 131468 PREDNISONE Inactive DOXYCYCLINE HYCLATE 100 MG CAP 1 cap by mouth twice daily DOXYCYCLINE HYCLATE 100 MG CAP 7945006 DOXYCYCLINE HYCLATE Inactive PREDNISONE 20 MG TAB take 3 tabs daily for 3 days, 2 tabs daily for 3 days, 1 tab daily for 3 days, 1/2 tab daily for 3 days PREDNISONE 20 MG TAB 788696 PREDNISONE Inactive PREDNISONE 20 MG TAB take 3 tabs daily for 3 days, 2 tabs daily for 3 days, 1 tab daily for 3 days, 1/2 tab daily for 3 days PREDNISONE 20 MG TAB 314103 PREDNISONE Inactive PREDNISONE 20 MG TAB take 3 tabs daily for 3 days, 2 tabs daily for 3 days, 1 tab daily for 3 days, 1/2 tab daily for 3 days PREDNISONE 20 MG TAB 010775 PREDNISONE Inactive Advance Directives Directive Description Start [...] Peptide - Chemistry sodium, serum 140 mmol/L 416-122 4174/02/09 carbon dioxide, venous blood 39.2 mmol/L 21.0-32.0 [...] 0.00-1.00 Encounters Code Encounter Date Provider Facility CPT-43545 Level 4 Est. Patient 13:31:03 CDT Austin Albarado MD [facility] CPT-84854 Level 4 Est. Patient 17:54:41 POWER SEWING MACHINE OPERATOR Austin Albarado MD [facility]-90843 Level 4 Est. Patient 16:11:14 POWER SEWING MACHINE OPERATOR Austin Albarado MD [facility] CPT-78027 Level 4 Est. Patient 23:08:56 CDT Austin Albarado MD [facility] CPT-99870 Level 4 Est. Patient 13:27:28 CDT Garcia Stroud MD [facility]-96400 Level 4 Est. Patient 10:51:20 CDT Austin Albarado MD [facility] CPT-84340 Level 4 Est. Patient 20:09:43 POWER SEWING MACHINE OPERATOR Austin Albarado MD [facility]-55729 Level 4 Est. Patient 21:00:28 CDT Austin Albarado MD [facility] CPT-00886 Level 4 Est. Patient 10:03:37 CDT Austin Albarado MD [facility] CPT-59989 Level 3 Est. Patient 10:50:28 POWER SEWING MACHINE OPERATOR Austin Albarado MD [facility] CPT-56241 Level 4 Est. Patient 21:31:41 POWER SEWING MACHINE OPERATOR Austin Albarado MD [facility] CPT-86132 Level 3 Est. Patient 16:22:54 POWER SEWING MACHINE OPERATOR Jann Law DO [facility] CPT-08934 Level 3 Est. Patient 11:04:53 POWER SEWING MACHINE OPERATOR Tristan Vaughn MD [facility]-57350 Level 4 Est. Patient 09:50:59 CDT Austin Albarado MD [facility] CPT-96866 Level 4 Est. Patient 09:29:00 CDT Austin Albarado MD [facility]-24969 Level 4 Est. Patient 14:23:07 CDT Austin Albarado MD [facility] CPT-78798 Level 4 Est. Patient 14:27:26 CDT Austin Albarado MD [facility] CPT-16516 Level 4 Est. Patient 12:51:43 POWER SEWING MACHINE OPERATOR Austin Albarado MD [facility] CPT-17988 Level 3 New Patient 14:17:38 POWER SEWING MACHINE OPERATOR Austin Albarado MD [facility] CPT-78985 Level 3 New Patient 11:28:18 POWER SEWING MACHINE OPERATOR Austin Albarado MD [facility] Procedures Code Procedure Name Date Entry Date Standard Description CPT-TCMM Transitional Care Mgmt-Moderate 14:53:36 POWER SEWING MACHINE OPERATOR CPT-38860 No Charge Offi Visit 10:19:33 POWER SEWING MACHINE OPERATOR CPT-32367 Chest 2V Frontal and Lat - XRAY USE ONLY 15:01:41 POWER SEWING MACHINE OPERATOR CPT-35579 First Vx - Ix admin for Medicare patients 16:00:49 CDT CPT-85934 Fluzone High-Dose Intramuscular Suspension 16:00:49 CDT CPT-G0009 Administration of Pneumococcal Vaccine 13:25:27 CDT CPT-30854 Prevnar 13 Intramuscular Suspension 13:25:27 CDT 09/26 CPT-G0438 Initial Annual Wellness Exam 11:28:26 CDT CPT-17200 Chest 2V Frontal and Lat 15:00:00 POWER SEWING MACHINE OPERATOR CPT-36619 Breathing Tx 14:49:25 POWER SEWING MACHINE OPERATOR CPT-76356 Fluzone High Dose 15:08:41 POWER SEWING MACHINE OPERATOR CPT-49469 Immunization Single Admin 15:08:41 POWER SEWING MACHINE OPERATOR CPT-59436 Fluzone High Dose 17:31:19 CDT CPT-50099 Administration single or combination vaccine inc oral 17 :31:19 CDT CPT-30837 Venipuncture Draw Fee 11:03:05 CDT CPT-TCMM Transitional Care Mgmt-Moderate 16:32:35 CDT CPT-42713 Chest 2V Frontal and Lat 11:51:09 CDT CPT-G0008 Administration of Influenza Virus Vaccine 15:09:08 CDT CPT-89320 Fluzone High-Dose Intramuscular Suspension 15:09:08 CDT CPT-92791 Administration single or combination vaccine inc oral 17 :07:02 POWER SEWING MACHINE OPERATOR CPT-53259 Influenza High Dose age 65+ 17:07:02 POWER SEWING MACHINE OPERATOR
--- OUTSIDE RECORDS SUMMARY | 2017-02-27 22:46 | XMS REPORT | Clinical Summary ---
Author Author Admin, LEE Organization [facility] Address Unknown Phone Unavailable Allergies, Adverse [...] Coronary atherosclerosis of unspecified type of vessel, mi'kmaq or graft U R I ICD-465.9 Inactive Austin Albarado MD 06/13 Bronchitis-Acute ICD-466.0 Inactive Austin Albarado MD Medication List Medication Instructions Start Date Stop Date Generic Name NDC Status Provider Patient Instruction FUROSEMIDE 20 MG TABS 2 today and tomorrow and then 1 daily as needed for swelling FUROSEMIDE 64016632976 Active Garcia Stroud MD Active AMOXICILLIN 500 MG ORAL TABS Take one by mouth 3 times daily, morning, afternoon and evening.] AMOXICILLIN 47576393720 No Longer Active Garcia Stroud MD Active PREDNISONE 20 MG ORAL TABS 3 daily for 3 days than, 2 tabs daily for 3 days than, 2 tabs daily for 3 days than, 1 tab daily for 3 days than 1/2 tab daily for 3 days. PREDNISONE 05574277202 No Longer Active Tracie Arrington APRN Active FLUTICASONE PROPIONATE 50 MCG/ACT SUSP 1 to 2 sprays each nostril daily 08/21 FLUTICASONE PROPIONATE 30819698212 Active Simona Galloway APRN Active PREDNISONE 10 MG TAB take 1 tab po qday for severe COPD PREDNISONE 34719705070 Active Austin Albarado MD Active PREDNISONE 20 MG ORAL TABS 3 TABS PO FOR 3 DAYS,THAN 2 TABS FOR 3 DAYS THAN, 1 TAB FOR 3 DAYS THAN, 1/2 TAB FOR 3 DAYS. PREDNISONE 29381820518 No Longer Active Austin Albarado MD Active LEVAQUIN 500 MG TAB 1 tablet by mouth daily for 10 days. LEVOFLOXACIN 47756343770 No Longer Active Austin Albarado MD Active PREDNISONE 20 MG TAB take 3 tabs daily for 3 days, 2 tabs daily for 3 days, 1 tab daily for 3 days, 1/2 tab daily for 3 days PREDNISONE 76000154911 No Longer Active Simona Galloway APRN Active ZITHROMAX 1 GM ORAL PACK DIRECTED AZITHROMYCIN 83815554394 No Longer Active Simona Galloway APRN Active PREDNISONE 20 MG TAB 2 tabs daily for 4 days, 1 tab daily for 4 days, 1/2 tab daily for 4 days PREDNISONE 89831623857 No Longer Active Austin Albarado MD Active LEVAQUIN 500 MG TAB 1 tablet by mouth daily LEVOFLOXACIN 72203356902 No Longer Active Austin Albarado MD Active PREDNISONE 20 MG TAB take 3 tabs daily for 3 days, 2 tabs daily for 3 days, 1 tab daily for 3 days, 1/2 tab daily for 3 days PREDNISONE 20642881173 No Longer Active Austin Albarado MD Active DOXYCYCLINE HYCLATE 100 MG CAP 1 cap by mouth twice daily DOXYCYCLINE HYCLATE 36033682536 No Longer Active Jikatyaina Ly BOWEN Active ALBUTEROL SULFATE (2.5 MG/3ML) 0.083% NEBU nebulize 1 vial q 4-6 hours prn shortness of breath ALBUTEROL SULFATE 89075182099 No Longer Active 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 [employer] MANAGER Active TORSEMIDE 20 MG TABS 1 TAB PO BID TORSEMIDE 59804970194 No Longer Active Jillina Frashonnal [employer]PAIGN MANAGER Active PREDNISONE 20 MG TAB 2 tabs daily for 3 days, 1 tab daily for 3 days, 1/2 tab daily for 2 days PREDNISONE 99603226365 No Longer Active Austin Albarado MD Active LEVOFLOXACIN 500 MG ORAL TABS take 1 tab po qday LEVOFLOXACIN 95984330529 No Longer Active Austin Albarado MD Active PREDNISONE 20 MG TAB 2 tablets today, then 1 tablet by mouth days 2-5 PREDNISONE 17422634091 No Longer Active Austin Albarado MD Active AZITHROMYCIN 500 MG SOLR 1 po q day AZITHROMYCIN 02704906438 No Longer Active Austin Albarado MD Active KEFLEX 500 MG CAP 1 po TID x 7 days CEPHALEXIN 08961283513 No Longer Active Tristan Vaughn MD Active EQL VISION FORMULA TABS 1 TAB PO DAILY MULTIPLE VITAMINS-MINERALS 03341578180 No Longer Active Tristan Vaughn MD Active CHANTIX STARTING MONTH ELVIS 0.5 MG X 11 & 1 MG X 42 TABS 0.5mg daily for 3 days , then 0.5mg BID for 4 days, then 1mg BID VARENICLINE TARTRATE 08347998066 No Longer Active Tristan Vaughn MD Active LEVOTHYROXINE SODIUM 200 MCG TABS 1 TAB PO DAILY LEVOTHYROXINE SODIUM 37808600320 No Longer Active Tristan Vaughn MD Active LIOTHYRONINE SODIUM 50 MCG TABS take 1 tab po qday for hypothyroidism LIOTHYRONINE SODIUM 79868177077 No Longer Active Austin Albarado MD Active SYNTHROID 0.025 MG TAB 1 tablet by mouth daily LEVOTHYROXINE SODIUM 51356048983 No Longer Active Austin Albarado MD Active ARMOUR THYROID 120 MG TABS take 1 tab po qday for hypothyroidism THYROID 81184139738 Active Austin Albarado MD Active FLONASE 50 MCG/ACT SUSP 1 spray each nostril am and hs FLUTICASONE PROPIONATE Active Simona Nilesh [employer] MANAGER Active ZITHROMAX 1 GM PACK DIRECTED AZITHROMYCIN 73433104031 No Longer Active Austin Albarado MD Active PREDNISONE 20 MG TAB 2 tabs daily for 3 days, 1 tab daily for 3 days, 1/2 tab daily for 2 days PREDNISONE 50092311998 No Longer Active Austin Albarado MD Active ZITHROMAX 250 MG TAB 2 po today, then 1 po q days 2-5 AZITHROMYCIN 06926313878 No Longer Active Austin Albarado MD Active NYSTATIN-TRIAMCINOLONE 128658-0.1 UNIT/GM-% OINT Apply to affected area TID NYSTATIN-TRIAMCINOLONE 72099356981 Active Austin Albarado MD Active IPRATROPIUM-ALBUTEROL 0.5-2.5 (3) MG/3ML SOLN 1 VIAL NEB Q 6 HRS PRN IPRATROPIUM-ALBUTEROL 68546385173 Active Austin Albarado MD Active PROAIR HFA 108 (90 BASE) MCG/ACT AERS take 1-2 puffs q4hrs prn cough/ SOB ALBUTEROL SULFATE 23233965526 Active Austin Albarado MD Active ADVAIR DISKUS 500-50 MCG/DOSE AEPB ONE INH BID FLUTICASONE- SALMETEROL 55423327200 Active Austin Albarado MD Active ZITHROMAX 1 GM PACK DIRECTED ZITHROMAX 1 GM PACK 684584 AZITHROMYCIN Inactive SYNTHROID 0.025 MG TAB 1 tablet by mouth daily SYNTHROID 0.025 MG TAB 291277 LEVOTHYROXINE SODIUM Inactive LIOTHYRONINE SODIUM 50 MCG TABS take 1 tab po qday for hypothyroidism LIOTHYRONINE SODIUM 50 MCG TABS 762388 LIOTHYRONINE SODIUM Inactive LEVOTHYROXINE SODIUM 200 MCG TABS 1 TAB PO DAILY LEVOTHYROXINE SODIUM 200 MCG TABS 537586 LEVOTHYROXINE SODIUM Inactive CHANTIX STARTING MONTH ELVIS [...] po q day AZITHROMYCIN 500 MG SOLR 28817331073 AZITHROMYCIN Inactive PREDNISONE 20 MG TAB 2 tablets today, then 1 tablet by mouth days 2-5 PREDNISONE 20 MG TAB 483583 PREDNISONE Inactive TORSEMIDE 20 MG TABS 1 TAB PO BID TORSEMIDE 20 MG TABS 106234 TORSEMIDE Inactive ALBUTEROL SULFATE (2.5 MG/3ML) 0.083% NEBU nebulize 1 vial q 4-6 hours prn shortness of breath ALBUTEROL SULFATE (2.5 MG/3ML) 0.083% NEBU 748010 ALBUTEROL SULFATE Inactive LEVAQUIN 500 MG TAB 1 tablet by mouth daily LEVAQUIN 500 MG TAB 694654 LEVOFLOXACIN Inactive PREDNISONE 20 MG TAB 2 tabs daily for 4 days, 1 tab daily for 4 days, 1/2 tab daily for 4 days PREDNISONE 20 MG TAB 880130 PREDNISONE Inactive ZITHROMAX 1 GM ORAL PACK DIRECTED ZITHROMAX 1 GM ORAL PACK 204072 AZITHROMYCIN Inactive LEVAQUIN 500 MG TAB 1 tablet by mouth daily for 10 days. LEVAQUIN 500 MG TAB 399776 LEVOFLOXACIN Inactive PREDNISONE 20 MG ORAL TABS 3 TABS PO FOR 3 DAYS,THAN 2 TABS FOR 3 DAYS THAN, 1 TAB FOR 3 DAYS THAN, 1/2 TAB FOR 3 DAYS. PREDNISONE 20 MG ORAL TABS 314604 PREDNISONE Inactive PREDNISONE 20 MG ORAL TABS 3 daily for 3 days than, 2 tabs daily for 3 days than, 2 tabs daily for 3 days than, 1 tab daily for 3 days than 1/2 tab daily for 3 days. PREDNISONE 20 MG ORAL TABS 518733 PREDNISONE Inactive AMOXICILLIN 500 MG ORAL TABS Take one by mouth 3 times daily, morning, afternoon and evening.] AMOXICILLIN 500 MG ORAL TABS 861486 AMOXICILLIN Inactive ZITHROMAX 250 MG TAB 2 po today, then 1 po q days 2-5 ZITHROMAX 250 MG TAB 1655154 AZITHROMYCIN Inactive PREDNISONE 20 MG TAB 2 tabs daily for 3 days, 1 tab daily for 3 days, 1/2 tab daily for 2 days PREDNISONE 20 MG TAB 238084 PREDNISONE Inactive KEFLEX 500 MG CAP 1 po TID x 7 days KEFLEX 500 MG CAP 166263 CEPHALEXIN Inactive LEVOFLOXACIN 500 MG ORAL TABS take 1 tab po qday LEVOFLOXACIN 500 MG ORAL TABS 984938 LEVOFLOXACIN Inactive PREDNISONE 20 MG TAB 2 tabs daily for 3 days, 1 tab daily for 3 days, 1/2 tab daily for 2 days PREDNISONE 20 MG TAB 228001 PREDNISONE Inactive DOXYCYCLINE HYCLATE 100 MG CAP 1 cap by mouth twice daily DOXYCYCLINE HYCLATE 100 MG CAP 5875145 DOXYCYCLINE HYCLATE Inactive PREDNISONE 20 MG TAB take 3 tabs daily for 3 days, 2 tabs daily for 3 days, 1 tab daily for 3 days, 1/2 tab daily for 3 days PREDNISONE 20 MG TAB 753366 PREDNISONE Inactive PREDNISONE 20 MG TAB take 3 tabs daily for 3 days, 2 tabs daily for 3 days, 1 tab daily for 3 days, 1/2 tab daily for 3 days PREDNISONE 20 MG TAB 782672 PREDNISONE Inactive Advance Directives Directive Description Start [...] ... - Chemistry cholesterol, serum 136 mg/dL 016-423 4244/10/06 triglyceride, serum, fasting 30 mg/dL 30-200 HDL [...] 0.50 mg/dL 0.00-1.00 cholesterol, serum 189 mg/dL 390-796 0855/04/06 triglyceride, serum, fasting 117 mg/dL 30-200 HDL cholesterol, serum 70 mg/dL 32-96 LDL cholesterol, serum 96 mg/dL 0-130 chloride, serum 100 mmol/L 98-107 potassium, serum 4.9 mmol/L 3.5-5.2 carbon dioxide, venous blood 36.3 mmol/L 21.0-32.0 sodium, serum 140 mmol/L 215-910 0768/04/06 TSH 43.52 m[iU]/mL 0.36-3.74 Lab Report: Thyroid [...] [phone] Encounters Code Encounter Date Provider Facility CPT-20012 Level 4 Est. Patient 13:27:28 CDT Garcia Stroud MD [facility] CPT-64752 Level 4 Est. Patient 10:51:20 CDT Austin Albarado MD [facility] CPT-05809 Level 4 Est. Patient 20:09:43 [employer] Austin Albarado MD [facility] CPT-61663 Level 4 Est. Patient 21:00:28 CDT Austin Albarado MD [facility] CPT-95089 Level 4 Est. Patient 10:03:37 CDT Austin Albarado MD [facility] CPT-66119 Level 3 Est. Patient 10:50:28 [employer] Austin Albarado MD [facility] CPT-94286 Level 4 Est. Patient 21:31:41 [employer] Austin Albarado MD [facility] CPT-93477 Level 3 Est. Patient 16:22:54 [employer] Jann Law DO [facility] CPT-72782 Level 3 Est. Patient 11:04:53 [employer] Tristan Vaughn MD [facility] CPT-98927 Level 4 Est. Patient 09:50:59 CDT Austin Albarado MD [facility] CPT-25143 Level 4 Est. Patient 09:29:00 CDT Austin Albarado MD [facility] CPT-70569 Level 4 Est. Patient 14:23:07 CDT Austin Albarado MD [facility] CPT-62316 Level 4 Est. Patient 14:27:26 CDT Austin Albarado MD [facility] CPT-17875 Level 4 Est. Patient 12:51:43 [employer] Austin Albarado MD [facility] CPT-66712 Level 3 New Patient 14:17:38 [employer] Austin Albarado MD [facility] CPT-82069 Level 3 New Patient 11:28:18 [employer] Austin Albarado MD [facility] Procedures Code Procedure Name Date Entry Date Standard Description CPT-G0009 Administration of Pneumococcal Vaccine 13:25:27 CDT CPT-13514 Prevnar 13 Intramuscular Suspension 13:25:27 CDT 09/26 CPT-G0438 Initial Annual Wellness Exam 11:28:26 CDT CPT-02089 Chest 2V Frontal and Lat 15:00:00 [employer] CPT-96047 Breathing Tx 14:49:25 [employer] CPT-48724 Fluzone High Dose 15:08:41 [employer] CPT-83946 Immunization Single Admin 15:08:41 [employer] CPT-89706 Fluzone High Dose 17:31:19 CDT CPT-48055 Administration single or combination vaccine inc oral 17 :31:19 CDT CPT-89721 Venipuncture Draw Fee 11:03:05 CDT CPT-TCMM Transitional Care Mgmt-Moderate 16:32:35 CDT CPT-49306 Chest 2V Frontal and Lat 11:51:09 CDT CPT-G0008 Administration of Influenza Virus Vaccine 15:09:08 CDT CPT-05522 Fluzone High-Dose Intramuscular Suspension 15:09:08 CDT CPT-21256 Administration single or combination vaccine inc oral 17 :07:02 [employer] CPT-69130 Influenza High Dose age 65+ 17:07:02 [employer]
--- OUTSIDE RECORDS SUMMARY | 2017-02-27 22:47 | XMS REPORT | Clinical Summary ---
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 J44.1 ALBUTEROL SULFATE 02948660548 Active Austin Albarado MD Active IPRATROPIUM BROMIDE 0.02 % INH SOLN 1 q 6 hr PRN Dx: J44.1 IPRATROPIUM BROMIDE 05865972561 Active Nella José LPN Active PROAIR HFA 108 (90 BASE) MCG/ACT AERS take 1-2 puffs q 4-6 hrs prn cough/ SOB ALBUTEROL SULFATE 60152410706 Active Nella José LPN Active IPRATROPIUM-ALBUTEROL 0.5-2.5 (3) MG/3ML SOLN 1 VIAL NEB Q 4-6 HRS PRN 04/18 IPRATROPIUM-ALBUTEROL 24536500795 No Longer Active Austin Albarado MD Active ATIVAN 0.5 MG TAB 1 po QD PRN Anxiety LORAZEPAM 94842487936 Active Simona Galloway APRN Active PREDNISONE 20 MG ORAL TABS 3 tabs po for 3 days than,2 tabs po for 3 days,1 tab po for 3 days, 1/2 tab po for 3 days. PREDNISONE 67033907522 No Longer Active Simona Galloway APRN Active LEVAQUIN 500 MG TAB 1 tablet by mouth daily LEVOFLOXACIN 40635405041 No Longer Active Simona Galloway APRN Active PREDNISONE 20 MG TAB take 3 tabs daily for 3 days, 2 tabs daily for 3 days, 1 tab daily for 3 days, 1/2 tab daily for 3 days PREDNISONE 25005393943 No Longer Active Austin Albarado MD Active LEVAQUIN 500 MG TAB 1 tablet by mouth daily LEVOFLOXACIN 56574140078 No Longer Active Madhavi Fiore Active FUROSEMIDE 20 MG TABS take 1 tab po BID for swelling FUROSEMIDE 59784364999 Active Austin Albarado MD Active AMOXICILLIN 500 MG ORAL TABS Take one by mouth 3 times daily, morning, afternoon and evening.] AMOXICILLIN 22705296923 No Longer Active Garcia Stroud MD Active PREDNISONE 20 MG ORAL TABS 3 daily for 3 days than, 2 tabs daily for 3 days than, 2 tabs daily for 3 days than, 1 tab daily for 3 days than 1/2 tab daily for 3 days. PREDNISONE 60001986692 No Longer Active Tracie Arrington APRN Active FLUTICASONE PROPIONATE 50 MCG/ACT SUSP 1 to 2 sprays each nostril daily 08/21 FLUTICASONE PROPIONATE 61006613018 Active Simona Galloway APRN Active PREDNISONE 10 MG TAB take 1 tab po qday for severe COPD PREDNISONE 96264798808 Active Austin Albarado MD Active PREDNISONE 20 MG ORAL TABS 3 TABS PO FOR 3 DAYS,THAN 2 TABS FOR 3 DAYS THAN, 1 TAB FOR 3 DAYS THAN, 1/2 TAB FOR 3 DAYS. PREDNISONE 76138663407 No Longer Active Austin Albarado MD Active LEVAQUIN 500 MG TAB 1 tablet by mouth daily for 10 days. LEVOFLOXACIN 35814345197 No Longer Active Austin Albarado MD Active PREDNISONE 20 MG TAB take 3 tabs daily for 3 days, 2 tabs daily for 3 days, 1 tab daily for 3 days, 1/2 tab daily for 3 days PREDNISONE 94314281652 No Longer Active Simona Galloway APRN Active ZITHROMAX 1 GM ORAL PACK DIRECTED AZITHROMYCIN 58816457998 No Longer Active Simona Galloway APRN Active PREDNISONE 20 MG TAB 2 tabs daily for 4 days, 1 tab daily for 4 days, 1/2 tab daily for 4 days PREDNISONE 19508087836 No Longer Active Austin Albarado MD Active LEVAQUIN 500 MG TAB 1 tablet by mouth daily LEVOFLOXACIN 51508237127 No Longer Active Austin Albarado MD Active PREDNISONE 20 MG TAB take 3 tabs daily for 3 days, 2 tabs daily for 3 days, 1 tab daily for 3 days, 1/2 tab daily for 3 days PREDNISONE 94887581989 No Longer Active Austin Albarado MD Active DOXYCYCLINE HYCLATE 100 MG CAP 1 cap by mouth twice daily DOXYCYCLINE HYCLATE 56717276452 No Longer Active Esperanza Modi APRN Active ALBUTEROL SULFATE (2.5 MG/3ML) 0.083% NEBU nebulize 1 vial q 4-6 hours prn shortness of breath ALBUTEROL SULFATE 03593381770 No Longer Active Esperanza Modi APRN Active TORSEMIDE 20 MG TABS 1 TAB PO BID TORSEMIDE 75651914889 No Longer Active Jillina Frazeldemario MANAGER OF [employer] REPORTING Active PREDNISONE 20 MG TAB 2 tabs daily for 3 days, 1 tab daily for 3 days, 1/2 tab daily for 2 days PREDNISONE 82173843002 No Longer Active Austin Albarado MD Active LEVOFLOXACIN 500 MG ORAL TABS take 1 tab po qday LEVOFLOXACIN 72882971404 No Longer Active Austin Albarado MD Active PREDNISONE 20 MG TAB 2 tablets today, then 1 tablet by mouth days 2-5 PREDNISONE 21258856237 No Longer Active Austin Albarado MD Active AZITHROMYCIN 500 MG SOLR 1 po q day AZITHROMYCIN 45418075575 No Longer Active Austin Albarado MD Active KEFLEX 500 MG CAP 1 po TID x 7 days CEPHALEXIN 52929856577 No Longer Active Tristan Vaughn MD Active EQL VISION FORMULA TABS 1 TAB PO DAILY MULTIPLE VITAMINS-MINERALS 44693665459 No Longer Active Tristan Vaughn MD Active CHANTIX STARTING MONTH ELVIS 0.5 MG X 11 & 1 MG X 42 TABS 0.5mg daily for 3 days , then 0.5mg BID for 4 days, then 1mg BID VARENICLINE TARTRATE 79727466756 No Longer Active Tristan Vaughn MD Active LEVOTHYROXINE SODIUM 200 MCG TABS 1 TAB PO DAILY LEVOTHYROXINE SODIUM 42998586620 No Longer Active Tristan Vaughn MD Active LIOTHYRONINE SODIUM 50 MCG TABS take 1 tab po qday for hypothyroidism LIOTHYRONINE SODIUM 22742355263 No Longer Active Austin Albarado MD Active SYNTHROID 0.025 MG TAB 1 tablet by mouth daily LEVOTHYROXINE SODIUM 87522063210 No Longer Active Austin Albarado MD Active ARMOUR THYROID 120 MG TABS take 1 tab po qday for hypothyroidism THYROID 95298151082 Active Austin Albarado MD Active FLONASE 50 MCG/ACT SUSP 1 spray each nostril am and hs FLUTICASONE PROPIONATE Active Simona Galloway APRN Active ZITHROMAX 1 GM PACK DIRECTED AZITHROMYCIN 02692771635 No Longer Active Austin Albarado MD Active PREDNISONE 20 MG TAB 2 tabs daily for 3 days, 1 tab daily for 3 days, 1/2 tab daily for 2 days PREDNISONE 53840673893 No Longer Active Austin Albarado MD Active ZITHROMAX 250 MG TAB 2 po today, then 1 po q days 2-5 AZITHROMYCIN 40302931932 No Longer Active Austin Albarado MD Active NYSTATIN-TRIAMCINOLONE 682243-4.1 UNIT/GM-% OINT Apply to affected area TID NYSTATIN-TRIAMCINOLONE 26042326157 Active Austin Albarado MD Active ADVAIR DISKUS 500-50 MCG/DOSE AEPB ONE INH BID FLUTICASONE- SALMETEROL 57376063402 Active Austin Albarado MD Active ZITHROMAX 1 GM PACK DIRECTED ZITHROMAX 1 GM PACK 955041 AZITHROMYCIN Inactive SYNTHROID 0.025 MG TAB 1 tablet by mouth daily SYNTHROID 0.025 MG TAB 759751 LEVOTHYROXINE SODIUM Inactive LIOTHYRONINE SODIUM 50 MCG TABS take 1 tab po qday for hypothyroidism LIOTHYRONINE SODIUM 50 MCG TABS 248858 LIOTHYRONINE SODIUM Inactive LEVOTHYROXINE SODIUM 200 MCG TABS 1 TAB PO DAILY LEVOTHYROXINE SODIUM 200 MCG TABS 062088 LEVOTHYROXINE SODIUM Inactive CHANTIX STARTING MONTH ELVIS [...] po q day AZITHROMYCIN 500 MG SOLR 96072254626 AZITHROMYCIN Inactive PREDNISONE 20 MG TAB 2 tablets today, then 1 tablet by mouth days 2-5 PREDNISONE 20 MG TAB 799134 PREDNISONE Inactive TORSEMIDE 20 MG TABS 1 TAB PO BID TORSEMIDE 20 MG TABS 700111 TORSEMIDE Inactive ALBUTEROL SULFATE (2.5 MG/3ML) 0.083% NEBU nebulize 1 vial q 4-6 hours prn shortness of breath ALBUTEROL SULFATE (2.5 MG/3ML) 0.083% NEBU 889737 ALBUTEROL SULFATE Inactive LEVAQUIN 500 MG TAB 1 tablet by mouth daily LEVAQUIN 500 MG TAB 490602 LEVOFLOXACIN Inactive PREDNISONE 20 MG TAB 2 tabs daily for 4 days, 1 tab daily for 4 days, 1/2 tab daily for 4 days PREDNISONE 20 MG TAB 180808 PREDNISONE Inactive ZITHROMAX 1 GM ORAL PACK DIRECTED ZITHROMAX 1 GM ORAL PACK 196504 AZITHROMYCIN Inactive LEVAQUIN 500 MG TAB 1 tablet by mouth daily for 10 days. LEVAQUIN 500 MG TAB 926100 LEVOFLOXACIN Inactive PREDNISONE 20 MG ORAL TABS 3 TABS PO FOR 3 DAYS,THAN 2 TABS FOR 3 DAYS THAN, 1 TAB FOR 3 DAYS THAN, 1/2 TAB FOR 3 DAYS. PREDNISONE 20 MG ORAL TABS 791627 PREDNISONE Inactive PREDNISONE 20 MG ORAL TABS 3 daily for 3 days than, 2 tabs daily for 3 days than, 2 tabs daily for 3 days than, 1 tab daily for 3 days than 1/2 tab daily for 3 days. PREDNISONE 20 MG ORAL TABS 278332 PREDNISONE Inactive AMOXICILLIN 500 MG ORAL TABS Take one by mouth 3 times daily, morning, afternoon and evening.] AMOXICILLIN 500 MG ORAL TABS 908873 AMOXICILLIN Inactive LEVAQUIN 500 MG TAB 1 tablet by mouth daily LEVAQUIN 500 MG TAB 551752 LEVOFLOXACIN Inactive LEVAQUIN 500 MG TAB 1 tablet by mouth daily LEVAQUIN 500 MG TAB 551558 LEVOFLOXACIN Inactive PREDNISONE 20 MG ORAL TABS 3 tabs po for 3 days than,2 tabs po for 3 days,1 tab po for 3 days, 1/2 tab po for 3 days. PREDNISONE 20 MG ORAL TABS 010864 PREDNISONE Inactive ZITHROMAX 250 MG TAB 2 po today, then 1 po q days 2-5 ZITHROMAX 250 MG TAB 5526804 AZITHROMYCIN Inactive PREDNISONE 20 MG TAB 2 tabs daily for 3 days, 1 tab daily for 3 days, 1/2 tab daily for 2 days PREDNISONE 20 MG TAB 196507 PREDNISONE Inactive KEFLEX 500 MG CAP 1 po TID x 7 days KEFLEX 500 MG CAP 480397 CEPHALEXIN Inactive LEVOFLOXACIN 500 MG ORAL TABS take 1 tab po qday LEVOFLOXACIN 500 MG ORAL TABS 463511 LEVOFLOXACIN Inactive PREDNISONE 20 MG TAB 2 tabs daily for 3 days, 1 tab daily for 3 days, 1/2 tab daily for 2 days PREDNISONE 20 MG TAB 673405 PREDNISONE Inactive DOXYCYCLINE HYCLATE 100 MG CAP 1 cap by mouth twice daily DOXYCYCLINE HYCLATE 100 MG CAP 7213387 DOXYCYCLINE HYCLATE Inactive PREDNISONE 20 MG TAB take 3 tabs daily for 3 days, 2 tabs daily for 3 days, 1 tab daily for 3 days, 1/2 tab daily for 3 days PREDNISONE 20 MG TAB 929064 PREDNISONE Inactive PREDNISONE 20 MG TAB take 3 tabs daily for 3 days, 2 tabs daily for 3 days, 1 tab daily for 3 days, 1/2 tab daily for 3 days PREDNISONE 20 MG TAB 890263 PREDNISONE Inactive PREDNISONE 20 MG TAB take 3 tabs daily for 3 days, 2 tabs daily for 3 days, 1 tab daily for 3 days, 1/2 tab daily for 3 days PREDNISONE 20 MG TAB 061567 PREDNISONE Inactive ACYCLOVIR 400 MG TABS 1 pill three times daily ACYCLOVIR 400 MG TABS 280546 ACYCLOVIR Inactive Advance Directives Directive Description Start [...] Peptide - Chemistry sodium, serum 140 mmol/L 907-690 8572/02/09 carbon dioxide, venous blood 39.2 mmol/L 21.0-32.0 [...] 0.00-1.00 Encounters Code Encounter Date Provider Facility CPT-33696 Level 4 Est. Patient 13:31:03 CDT Austin Albarado MD [facility] CPT-93665 Level 4 Est. Patient 17:54:41 [employer] Austin Albarado MD [facility] CPT-30857 Level 4 Est. Patient 16:11:14 [employer] Austin Albarado MD [facility]-69913 Level 4 Est. Patient 23:08:56 CDT Austin Albarado MD [facility]-68222 Level 4 Est. Patient 13:27:28 CDT Garcia Stroud MD [facility] CPT-85749 Level 4 Est. Patient 10:51:20 CDT Austin Albarado MD [facility]-55167 Level 4 Est. Patient 20:09:43 [employer] Austni Albarado MD [facility] CPT-92754 Level 4 Est. Patient 21:00:28 CDT Austin Albarado MD [facility] CPT-06411 Level 4 Est. Patient 10:03:37 CDT Austin Albarado MD [facility] CPT-92796 Level 3 Est. Patient 10:50:28 [employer]NUT [employer]OUGH [employer]ER Austin Albarado MD [facility] CPT-26730 Level 4 Est. 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 Patient 16:22:54 [employer]NUT [employer]OUGH MIXER Jann Law DO [facility] CPT-12675 Level 3 Est. Patient 11:04:53 D[employer]NUT DOUGH MIXER Tristan Vaughn MD [facility] CPT-52396 Level 4 Est. Patient 09:50:59 CDT Austin Albarado MD [facility] CPT-01843 Level 4 Est. Patient 09:29:00 CDT Austin Albarado MD [facility] CPT-97921 Level 4 Est. Patient 14:23:07 CDT Austin Albarado MD [facility] CPT-39101 Level 4 Est. Patient 14:27:26 CDT Austin Albarado MD [facility] CPT-47841 Level 4 Est. Patient 12:51:43 DOUGHNUT DOUGH MIXER Austin Albarado MD [facility] CPT-17047 Level 3 New Patient 14:17:38 DOUGHNUT DOUGH MIXER Austin Albarado MD [facility] CPT-45792 Level 3 New Patient 11:28:18 D[employer]NUT DOUGH MIXER Austin Albarado MD [facility] Procedures Code Procedure Name Date Entry Date Standard Description CPT-TCMM Transitional Care Mgmt-Moderate 14:53:36 [employer] CPT-09427 No Charge Offi Visit 10:19:33 [employer] CPT-75401 Chest 2V Frontal and Lat - XRAY USE ONLY 15:01:41 [employer] CPT-40936 First Vx - Ix admin for Medicare patients 16:00:49 CDT CPT-86089 Fluzone High-Dose Intramuscular Suspension 16:00:49 CDT CPT-G0009 Administration of Pneumococcal Vaccine 13:25:27 CDT CPT-49026 Prevnar 13 Intramuscular Suspension 13:25:27 CDT 09/26 CPT-G0438 Initial Annual Wellness Exam 11:28:26 CDT CPT-01566 Chest 2V Frontal and Lat 15:00:00 [employer]NUT [employer]OUGH MIXER CPT-12640 Breathing Tx 14:49:25 [employer]NUT [employer]OUGH MIXER CPT-20089 Fluzone High Dose 15:08:41 [employer]NUT [employer]ER CPT-75904 Immunization Single Admin 15:08:41 [employer]NUT DOUGH MIXER CPT-22803 Fluzone High Dose 17:31:19 CDT CPT-36915 Administration single or combination vaccine inc oral 17 :31:19 CDT CPT-32144 Venipuncture Draw Fee 11:03:05 CDT CPT-TCMM Transitional Care Mgmt-Moderate 16:32:35 CDT CPT-21224 Chest 2V Frontal and Lat 11:51:09 CDT CPT-G0008 Administration of Influenza Virus Vaccine 15:09:08 CDT CPT-60378 Fluzone High-Dose Intramuscular Suspension 15:09:08 CDT CPT-60738 Administration single or combination vaccine inc oral 17 :07:02 D[employer]NUT DOUGH MIXER CPT-13803 Influenza High Dose age 65+ 17:07:02 DOUGHNUT DOUGH MIXER
--- OUTSIDE RECORDS SUMMARY | 2017-02-27 22:48 | XMS REPORT | Clinical Summary ---
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 Tracie Arrington FASHION EDITOR Chronic airway obstruction, not elsewhere classified Family history of myocardial infarction V17.3 Active Tracie Arrington FASHION EDITOR Family history of ischemic heart disease CAD [facility].00 [facility] Coronary atherosclerosis of unspecified type of vessel, [place] or graft Peripheral edema 782.3 Active Austin Albarado MD Edema Shortness of breath 786.05 Active Simona Galloway FASHION EDITOR Shortness of breath Hypotension 458.9 Active Simona [...] TABS 1 pill three times daily ACYCLOVIR 34181403427 Active Mica Sneed Active ACYCLOVIR 400 MG TABS 1 pill three times daily ACYCLOVIR 43773533110 No Longer Active Austin Albarado MD Active ALBUTEROL SULFATE 0.083 % NEBU SOLN one vial per nebulizer every 4 hours as needed Dx. J44.1 ALBUTEROL SULFATE 67889909892 Active Austin Albarado MD Active IPRATROPIUM BROMIDE 0.02 % INH SOLN 1 q 6 hr PRN Dx: J44.1 IPRATROPIUM BROMIDE 04977431010 Active Nella José LPN Active PROAIR HFA 108 (90 BASE) MCG/ACT AERS take 1-2 puffs q 4-6 hrs prn cough/ SOB ALBUTEROL SULFATE 64230269675 Active Nella José LPN Active IPRATROPIUM-ALBUTEROL 0.5-2.5 (3) MG/3ML SOLN 1 VIAL NEB Q 4-6 HRS PRN 04/18 IPRATROPIUM-ALBUTEROL 40043113400 No Longer Active Austin Albarado MD Active ATIVAN 0.5 MG TAB 1 po QD PRN Anxiety LORAZEPAM 61193951478 Active Simona Galloway APRN Active PREDNISONE 20 MG ORAL TABS 3 tabs po for 3 days than,2 tabs po for 3 days,1 tab po for 3 days, 1/2 tab po for 3 days. PREDNISONE 66002165387 No Longer Active Simona Galloway APRN Active LEVAQUIN 500 MG TAB 1 tablet by mouth daily LEVOFLOXACIN 12446869291 No Longer Active Simona Galloway APRN Active PREDNISONE 20 MG TAB take 3 tabs daily for 3 days, 2 tabs daily for 3 days, 1 tab daily for 3 days, 1/2 tab daily for 3 days PREDNISONE 69796386648 No Longer Active Austin Albarado MD Active LEVAQUIN 500 MG TAB 1 tablet by mouth daily LEVOFLOXACIN 34356188491 No Longer Active Madhavi Rogersida Active FUROSEMIDE 20 MG TABS take 1 tab po BID for swelling FUROSEMIDE 87546074525 Active Austin Albarado MD Active AMOXICILLIN 500 MG ORAL TABS Take one by mouth 3 times daily, morning, afternoon and evening.] AMOXICILLIN 54854557590 No Longer Active Garcia Stroud MD Active PREDNISONE 20 MG ORAL TABS 3 daily for 3 days than, 2 tabs daily for 3 days than, 2 tabs daily for 3 days than, 1 tab daily for 3 days than 1/2 tab daily for 3 days. PREDNISONE 64267089521 No Longer Active Tracie Arrington APRN Active FLUTICASONE PROPIONATE 50 MCG/ACT SUSP 1 to 2 sprays each nostril daily 08/21 FLUTICASONE PROPIONATE 67889505043 Active Simona Galloway APRN Active PREDNISONE 10 MG TAB take 1 tab po qday for severe COPD PREDNISONE 36996319116 Active Austin Albarado MD Active PREDNISONE 20 MG ORAL TABS 3 TABS PO FOR 3 DAYS,THAN 2 TABS FOR 3 DAYS THAN, 1 TAB FOR 3 DAYS THAN, 1/2 TAB FOR 3 DAYS. PREDNISONE 53573673548 No Longer Active Austin Albarado MD Active LEVAQUIN 500 MG TAB 1 tablet by mouth daily for 10 days. LEVOFLOXACIN 59581530072 No Longer Active Austin Albarado MD Active PREDNISONE 20 MG TAB take 3 tabs daily for 3 days, 2 tabs daily for 3 days, 1 tab daily for 3 days, 1/2 tab daily for 3 days PREDNISONE 24349863286 No Longer Active Simona Galloway APRN Active ZITHROMAX 1 GM ORAL PACK DIRECTED AZITHROMYCIN 37364255997 No Longer Active Simona Galloway APRN Active PREDNISONE 20 MG TAB 2 tabs daily for 4 days, 1 tab daily for 4 days, 1/2 tab daily for 4 days PREDNISONE 89291906994 No Longer Active Austin Albarado MD Active LEVAQUIN 500 MG TAB 1 tablet by mouth daily LEVOFLOXACIN 03364065841 No Longer Active Austin Albarado MD Active PREDNISONE 20 MG TAB take 3 tabs daily for 3 days, 2 tabs daily for 3 days, 1 tab daily for 3 days, 1/2 tab daily for 3 days PREDNISONE 25523539375 No Longer Active Austin Albarado MD Active DOXYCYCLINE HYCLATE 100 MG CAP 1 cap by mouth twice daily DOXYCYCLINE HYCLATE 07331018574 No Longer Active Esperanza Modi FASHION EDITOR Active ALBUTEROL SULFATE (2.5 MG/3ML) 0.083% NEBU nebulize 1 vial q 4-6 hours prn shortness of breath ALBUTEROL SULFATE 23916193356 No Longer Active Esperanza Modi FASHION EDITOR Active TORSEMIDE 20 MG TABS 1 TAB PO BID TORSEMIDE 23806597771 No Longer Active Joshllaftab Modi FASHION EDITOR Active PREDNISONE 20 MG TAB 2 tabs daily for 3 days, 1 tab daily for 3 days, 1/2 tab daily for 2 days PREDNISONE 16431565239 No Longer Active Austin Albarado MD Active LEVOFLOXACIN 500 MG ORAL TABS take 1 tab po qday LEVOFLOXACIN 75329818861 No Longer Active Austin Albarado MD Active PREDNISONE 20 MG TAB 2 tablets today, then 1 tablet by mouth days 2-5 PREDNISONE 77311653592 No Longer Active Austin Albarado MD Active AZITHROMYCIN 500 MG SOLR 1 po q day AZITHROMYCIN 99402476556 No Longer Active Austin Albarado MD Active KEFLEX 500 MG CAP 1 po TID x 7 days CEPHALEXIN 28407195535 No Longer Active Tristan Vaughn MD Active EQL VISION FORMULA TABS 1 TAB PO DAILY MULTIPLE VITAMINS-MINERALS 65992718892 No Longer Active Tristan Vaughn MD Active CHANTIX STARTING MONTH ELVIS 0.5 MG X 11 & 1 MG X 42 TABS 0.5mg daily for 3 days , then 0.5mg BID for 4 days, then 1mg BID VARENICLINE TARTRATE 12750347015 No Longer Active Tristan Vaughn MD Active LEVOTHYROXINE SODIUM 200 MCG TABS 1 TAB PO DAILY LEVOTHYROXINE SODIUM 84690411776 No Longer Active Tristan Vaughn MD Active LIOTHYRONINE SODIUM 50 MCG TABS take 1 tab po qday for hypothyroidism LIOTHYRONINE SODIUM 34642439014 No Longer Active Austin Albarado MD Active SYNTHROID 0.025 MG TAB 1 tablet by mouth daily LEVOTHYROXINE SODIUM 41700246875 No Longer Active Austin Albarado MD Active ARMOUR THYROID 120 MG TABS take 1 tab po qday for hypothyroidism THYROID 04114875021 Active Austin Albarado MD Active FLONASE 50 MCG/ACT SUSP 1 spray each nostril am and hs FLUTICASONE PROPIONATE Active Simona Galloway APRN Active ZITHROMAX 1 GM PACK DIRECTED AZITHROMYCIN 57684062910 No Longer Active Austin Albarado MD Active PREDNISONE 20 MG TAB 2 tabs daily for 3 days, 1 tab daily for 3 days, 1/2 tab daily for 2 days PREDNISONE 96116357877 No Longer Active Austin Albarado MD Active ZITHROMAX 250 MG TAB 2 po today, then 1 po q days 2-5 AZITHROMYCIN 75301938236 No Longer Active Austin Albarado MD Active NYSTATIN-TRIAMCINOLONE 688482-1.1 UNIT/GM-% OINT Apply to affected area TID NYSTATIN-TRIAMCINOLONE 84822875790 Active Austin Albarado MD Active ADVAIR DISKUS 500-50 MCG/DOSE AEPB ONE INH BID FLUTICASONE- SALMETEROL 65035017746 Active Austin Albarado MD Active ZITHROMAX 1 GM PACK DIRECTED ZITHROMAX 1 GM PACK 609877 AZITHROMYCIN Inactive SYNTHROID 0.025 MG TAB 1 tablet by mouth daily SYNTHROID 0.025 MG TAB 144416 LEVOTHYROXINE SODIUM Inactive LIOTHYRONINE SODIUM 50 MCG TABS take 1 tab po qday for hypothyroidism LIOTHYRONINE SODIUM 50 MCG TABS 485501 LIOTHYRONINE SODIUM Inactive LEVOTHYROXINE SODIUM 200 MCG TABS 1 TAB PO DAILY LEVOTHYROXINE SODIUM 200 MCG TABS 838865 LEVOTHYROXINE SODIUM Inactive CHANTIX STARTING MONTH ELVIS [...] po q day AZITHROMYCIN 500 MG SOLR 80134959185 AZITHROMYCIN Inactive PREDNISONE 20 MG TAB 2 tablets today, then 1 tablet by mouth days 2-5 PREDNISONE 20 MG TAB 167294 PREDNISONE Inactive TORSEMIDE 20 MG TABS 1 TAB PO BID TORSEMIDE 20 MG TABS 528442 TORSEMIDE Inactive ALBUTEROL SULFATE (2.5 MG/3ML) 0.083% NEBU nebulize 1 vial q 4-6 hours prn shortness of breath ALBUTEROL SULFATE (2.5 MG/3ML) 0.083% NEBU 436719 ALBUTEROL SULFATE Inactive LEVAQUIN 500 MG TAB 1 tablet by mouth daily LEVAQUIN 500 MG TAB 958216 LEVOFLOXACIN Inactive PREDNISONE 20 MG TAB 2 tabs daily for 4 days, 1 tab daily for 4 days, 1/2 tab daily for 4 days PREDNISONE 20 MG TAB 877657 PREDNISONE Inactive ZITHROMAX 1 GM ORAL PACK DIRECTED ZITHROMAX 1 GM ORAL PACK 515149 AZITHROMYCIN Inactive LEVAQUIN 500 MG TAB 1 tablet by mouth daily for 10 days. LEVAQUIN 500 MG TAB 913170 LEVOFLOXACIN Inactive PREDNISONE 20 MG ORAL TABS 3 TABS PO FOR 3 DAYS,THAN 2 TABS FOR 3 DAYS THAN, 1 TAB FOR 3 DAYS THAN, 1/2 TAB FOR 3 DAYS. PREDNISONE 20 MG ORAL TABS 762316 PREDNISONE Inactive PREDNISONE 20 MG ORAL TABS 3 daily for 3 days than, 2 tabs daily for 3 days than, 2 tabs daily for 3 days than, 1 tab daily for 3 days than 1/2 tab daily for 3 days. PREDNISONE 20 MG ORAL TABS 392992 PREDNISONE Inactive AMOXICILLIN 500 MG ORAL TABS Take one by mouth 3 times daily, morning, afternoon and evening.] AMOXICILLIN 500 MG ORAL TABS 758718 AMOXICILLIN Inactive LEVAQUIN 500 MG TAB 1 tablet by mouth daily LEVAQUIN 500 MG TAB 813511 LEVOFLOXACIN Inactive LEVAQUIN 500 MG TAB 1 tablet by mouth daily LEVAQUIN 500 MG TAB 193169 LEVOFLOXACIN Inactive PREDNISONE 20 MG ORAL TABS 3 tabs po for 3 days than,2 tabs po for 3 days,1 tab po for 3 days, 1/2 tab po for 3 days. PREDNISONE 20 MG ORAL TABS 541899 PREDNISONE Inactive ZITHROMAX 250 MG TAB 2 po today, then 1 po q days 2-5 ZITHROMAX 250 MG TAB 0220357 AZITHROMYCIN Inactive PREDNISONE 20 MG TAB 2 tabs daily for 3 days, 1 tab daily for 3 days, 1/2 tab daily for 2 days PREDNISONE 20 MG TAB 439287 PREDNISONE Inactive KEFLEX 500 MG CAP 1 po TID x 7 days KEFLEX 500 MG CAP 924976 CEPHALEXIN Inactive LEVOFLOXACIN 500 MG ORAL TABS take 1 tab po qday LEVOFLOXACIN 500 MG ORAL TABS 015223 LEVOFLOXACIN Inactive PREDNISONE 20 MG TAB 2 tabs daily for 3 days, 1 tab daily for 3 days, 1/2 tab daily for 2 days PREDNISONE 20 MG TAB 366527 PREDNISONE Inactive DOXYCYCLINE HYCLATE 100 MG CAP 1 cap by mouth twice daily DOXYCYCLINE HYCLATE 100 MG CAP 9055045 DOXYCYCLINE HYCLATE Inactive PREDNISONE 20 MG TAB take 3 tabs daily for 3 days, 2 tabs daily for 3 days, 1 tab daily for 3 days, 1/2 tab daily for 3 days PREDNISONE 20 MG TAB 092167 PREDNISONE Inactive PREDNISONE 20 MG TAB take 3 tabs daily for 3 days, 2 tabs daily for 3 days, 1 tab daily for 3 days, 1/2 tab daily for 3 days PREDNISONE 20 MG TAB 409040 PREDNISONE Inactive PREDNISONE 20 MG TAB take 3 tabs daily for 3 days, 2 tabs daily for 3 days, 1 tab daily for 3 days, 1/2 tab daily for 3 days PREDNISONE 20 MG TAB 819032 PREDNISONE Inactive ACYCLOVIR 400 MG TABS 1 pill three times daily ACYCLOVIR 400 MG TABS 525965 ACYCLOVIR Inactive Advance Directives Directive Description Start [...] 39.2 mmol/L 21.0-32.0 sodium, serum 140 mmol/L 314-179 4971/02/09 urea nitrogen, blood 27 mg/dL 7-18 creatinine, serum 1.30 mg/dL 0.55-1.30 alanine aminotransferase (SGPT), serum 38 U/L 12-78 aspartate aminotransferase (SGOT), serum 34 U/L 15-37 calcium, serum 8.6 mg/dL 8.5-10.1 bilirubin, serum, total 0.30 mg/dL 0.00-1.00 Encounters Code Encounter Date Provider Facility CPT-03892 Level 4 Est. Patient 13:31:03 CDT Austin Albarado MD [facility] CPT-23157 Level 4 Est. Patient 17:54:41 LIDDER Austin Albarado MD [facility] CPT-38254 Level 4 Est. Patient 16:11:14 LIDDER Austin Albarado MD [facility]-12834 Level 4 Est. Patient 23:08:56 CDT Austin Albarado MD [facility] CPT-59248 Level 4 Est. Patient 13:27:28 CDT Garcia Stroud MD [facility] CPT-04879 Level 4 Est. Patient 10:51:20 CDT Austin Albarado MD [facility] CPT-31330 Level 4 Est. Patient 20:09:43 LIDDER Austin Albarado MD [facility] CPT-72684 Level 4 Est. Patient 21:00:28 CDT Austin Albarado MD [facility] CPT-45735 Level 4 Est. Patient 10:03:37 CDT Austin Albarado MD [facility] CPT-72891 Level 3 Est. Patient 10:50:28 LIDDER Austin Albarado MD [facility] CPT-24088 Level 4 Est. Patient 21:31:41 LIDDER Austin Albarado MD [facility] CPT-86788 Level 3 Est. Patient 16:22:54 LIDDER Jann aLw DO [facility] CPT-78131 Level 3 Est. Patient 11:04:53 LIDDER Tristan Vaughn MD [facility] CPT-56876 Level 4 Est. Patient 09:50:59 CDT Austin Albarado MD [facility] CPT-17151 Level 4 Est. Patient 09:29:00 CDT Austin Albarado MD [facility] CPT-18323 Level 4 Est. Patient 14:23:07 CDT Austin Albarado MD [facility] CPT-65193 Level 4 Est. Patient 14:27:26 CDT Austin Albarado MD [facility] CPT-95619 Level 4 Est. Patient 12:51:43 LIDDER Austin Albarado MD [facility] CPT-77431 Level 3 New Patient 14:17:38 LIDDER Austin Albarado MD [facility] CPT-96638 Level 3 New Patient 11:28:18 LIDDER Austin Albarado MD [facility] Procedures Code Procedure Name Date Entry Date Standard Description CPT-TCMM Transitional Care Mgmt-Moderate 14:53:36 LIDDER CPT-43355 No Charge Offi Visit 10:19:33 LIDDER CPT-80567 Chest 2V Frontal and Lat - XRAY USE ONLY 15:01:41 LIDDER CPT-79020 First Vx - Ix admin for Medicare patients 16:00:49 CDT CPT-36809 Fluzone High-Dose Intramuscular Suspension 16:00:49 CDT CPT-G0009 Administration of Pneumococcal Vaccine 13:25:27 CDT CPT-45889 Prevnar 13 Intramuscular Suspension 13:25:27 CDT 09/26 CPT-G0438 Initial Annual Wellness Exam 11:28:26 CDT CPT-96387 Chest 2V Frontal and Lat 15:00:00 LIDDER CPT-39471 Breathing Tx 14:49:25 LIDDER CPT-82532 Fluzone High Dose 15:08:41 LIDDER CPT-87433 Immunization Single Admin 15:08:41 LIDDER CPT-60912 Fluzone High Dose 17:31:19 CDT CPT-91195 Administration single or combination vaccine inc oral 17 :31:19 CDT CPT-51263 Venipuncture Draw Fee 11:03:05 CDT CPT-TCMM Transitional Care Mgmt-Moderate 16:32:35 CDT CPT-09108 Chest 2V Frontal and Lat 11:51:09 CDT CPT-G0008 Administration of Influenza Virus Vaccine 15:09:08 CDT CPT-03533 Fluzone High-Dose Intramuscular Suspension 15:09:08 CDT CPT-38529 Administration single or combination vaccine inc oral 17 :07:02 LIDDER CPT-61440 Influenza High Dose age 65+ 17:07:02 LIDDER
--- OUTSIDE RECORDS SUMMARY | 2017-02-27 22:48 | XMS REPORT | Clinical Summary ---
Author Author Admin, LEE Organization [facility] Address Unknown Phone Unavailable Allergies, Adverse [...] Coronary atherosclerosis of unspecified type of vessel, soboba or graft U R I ICD-465.9 Inactive [...] 1/2 tab daily for 3 days. PREDNISONE [id number] No Longer Active Tracie Arrington APRN Active FLUTICASONE PROPIONATE 50 MCG/ACT SUSP 1 to 2 sprays each nostril daily 08/21 FLUTICASONE PROPIONATE 66572594928 Active Simona Galloway APRN Active PREDNISONE 10 MG TAB take 1 tab po qday for severe COPD PREDNISONE 32377020378 Active Austin Albarado MD Active PREDNISONE 20 MG ORAL TABS 3 TABS PO FOR 3 DAYS,THAN 2 TABS FOR 3 DAYS THAN, 1 TAB FOR 3 DAYS THAN, 1/2 TAB FOR 3 DAYS. PREDNISONE 22091575680 No Longer Active Austin Albarado MD Active LEVAQUIN 500 MG TAB 1 tablet by mouth daily for 10 days. LEVOFLOXACIN 90227572888 No Longer Active Austin Albarado MD Active PREDNISONE 20 MG TAB take 3 tabs daily for 3 days, 2 tabs daily for 3 days, 1 tab daily for 3 days, 1/2 tab daily for 3 days PREDNISONE 86915411368 No Longer Active Simona Galloway APRN Active ZITHROMAX 1 GM ORAL PACK DIRECTED AZITHROMYCIN 16207210530 No Longer Active Simona Galloway APRN Active PREDNISONE 20 MG TAB 2 tabs daily for 4 days, 1 tab daily for 4 days, 1/2 tab daily for 4 days PREDNISONE 00403741517 No Longer Active Austin Albarado MD Active LEVAQUIN 500 MG TAB 1 tablet by mouth daily LEVOFLOXACIN 22483559275 No Longer Active Austin Albarado MD Active PREDNISONE 20 MG TAB take 3 tabs daily for 3 days, 2 tabs daily for 3 days, 1 tab daily for 3 days, 1/2 tab daily for 3 days PREDNISONE 97340994494 No Longer Active Austin Albarado MD Active DOXYCYCLINE HYCLATE 100 MG CAP 1 cap by mouth twice daily DOXYCYCLINE HYCLATE 50062160461 No Longer Active Jillaftab Modi APRN Active ALBUTEROL SULFATE (2.5 MG/3ML) 0.083% NEBU nebulize 1 vial q 4-6 hours prn shortness of breath ALBUTEROL SULFATE 74048466771 No Longer Active Jillaftab Modi APRN Active TORSEMIDE 20 MG TABS 1 TAB PO BID TORSEMIDE 63944917876 No Longer Active 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 MAMMOGRAPHY TECHNOLOGIST Active PREDNISONE 20 MG TAB 2 tabs daily for 3 days, 1 tab daily for 3 days, 1/2 tab daily for 2 days PREDNISONE 33821192219 No Longer Active Austin Albarado MD Active LEVOFLOXACIN 500 MG ORAL TABS take 1 tab po qday LEVOFLOXACIN 06316626331 No Longer Active Austin Albarado MD Active PREDNISONE 20 MG TAB 2 tablets today, then 1 tablet by mouth days 2-5 PREDNISONE 26476329294 No Longer Active Austin Albarado MD Active AZITHROMYCIN 500 MG SOLR 1 po q day AZITHROMYCIN 58113760172 No Longer Active Austin Albarado MD Active KEFLEX 500 MG CAP 1 po TID x 7 days CEPHALEXIN 95342564345 No Longer Active Tristan Vaughn MD Active EQL VISION FORMULA TABS 1 TAB PO DAILY MULTIPLE VITAMINS-MINERALS 81398227881 No Longer Active Tristan Vaughn MD Active CHANTIX STARTING MONTH ELVIS 0.5 MG X 11 & 1 MG X 42 TABS 0.5mg daily for 3 days , then 0.5mg BID for 4 days, then 1mg BID VARENICLINE TARTRATE 35273625038 No Longer Active Tristan Vaughn MD Active LEVOTHYROXINE SODIUM 200 MCG TABS 1 TAB PO DAILY LEVOTHYROXINE SODIUM 50490495111 No Longer Active Tristan Vaughn MD Active LIOTHYRONINE SODIUM 50 MCG TABS take 1 tab po qday for hypothyroidism LIOTHYRONINE SODIUM 75401843129 No Longer Active Austin Albarado MD Active SYNTHROID 0.025 MG TAB 1 tablet by mouth daily LEVOTHYROXINE SODIUM 82482292209 No Longer Active Austin Albarado MD Active ARMOUR THYROID 120 MG TABS take 1 tab po qday for hypothyroidism THYROID 19560119905 Active Austin Albarado MD Active FLONASE 50 MCG/ACT SUSP 1 spray each nostril am and hs FLUTICASONE PROPIONATE Active Simona Galloway APRN Active ZITHROMAX 1 GM PACK DIRECTED AZITHROMYCIN 76031286074 No Longer Active Austin Albarado MD Active PREDNISONE 20 MG TAB 2 tabs daily for 3 days, 1 tab daily for 3 days, 1/2 tab daily for 2 days PREDNISONE 87687563634 No Longer Active Austin Albarado MD Active ZITHROMAX 250 MG TAB 2 po today, then 1 po q days 2-5 AZITHROMYCIN 47125421866 No Longer Active Austin Albarado MD Active NYSTATIN-TRIAMCINOLONE 901631-9.1 UNIT/GM-% OINT Apply to affected area TID NYSTATIN-TRIAMCINOLONE 02510514533 Active Austin Albarado MD Active IPRATROPIUM-ALBUTEROL 0.5-2.5 (3) MG/3ML SOLN 1 VIAL NEB Q 6 HRS PRN IPRATROPIUM-ALBUTEROL 64515155608 Active Austin Albarado MD Active PROAIR HFA 108 (90 BASE) MCG/ACT AERS take 1-2 puffs q4hrs prn cough/ SOB ALBUTEROL SULFATE 01009093502 Active Austin Albarado MD Active ADVAIR DISKUS 500-50 MCG/DOSE AEPB ONE INH BID FLUTICASONE- SALMETEROL 92518046267 Active Austin Albarado MD Active ZITHROMAX 1 GM PACK DIRECTED ZITHROMAX 1 GM PACK 672047 AZITHROMYCIN Inactive SYNTHROID 0.025 MG TAB 1 tablet by mouth daily SYNTHROID 0.025 MG TAB 952326 LEVOTHYROXINE SODIUM Inactive LIOTHYRONINE SODIUM 50 MCG TABS take 1 tab po qday for hypothyroidism LIOTHYRONINE SODIUM 50 MCG TABS 670289 LIOTHYRONINE SODIUM Inactive LEVOTHYROXINE SODIUM 200 MCG TABS 1 TAB PO DAILY LEVOTHYROXINE SODIUM 200 MCG TABS 451737 LEVOTHYROXINE SODIUM Inactive CHANTIX STARTING MONTH ELVIS [...] po q day AZITHROMYCIN 500 MG SOLR 77758211972 AZITHROMYCIN Inactive PREDNISONE 20 MG TAB 2 tablets today, then 1 tablet by mouth days 2-5 PREDNISONE 20 MG TAB 171479 PREDNISONE Inactive TORSEMIDE 20 MG TABS 1 TAB PO BID TORSEMIDE 20 MG TABS 441331 TORSEMIDE Inactive ALBUTEROL SULFATE (2.5 MG/3ML) 0.083% NEBU nebulize 1 vial q 4-6 hours prn shortness of breath ALBUTEROL SULFATE (2.5 MG/3ML) 0.083% NEBU 518652 ALBUTEROL SULFATE Inactive LEVAQUIN 500 MG TAB 1 tablet by mouth daily LEVAQUIN 500 MG TAB 595477 LEVOFLOXACIN Inactive PREDNISONE 20 MG TAB 2 tabs daily for 4 days, 1 tab daily for 4 days, 1/2 tab daily for 4 days PREDNISONE 20 MG TAB 546490 PREDNISONE Inactive ZITHROMAX 1 GM ORAL PACK DIRECTED ZITHROMAX 1 GM ORAL PACK 769022 AZITHROMYCIN Inactive LEVAQUIN 500 MG TAB 1 tablet by mouth daily for 10 days. LEVAQUIN 500 MG TAB 344265 LEVOFLOXACIN Inactive PREDNISONE 20 MG ORAL TABS 3 TABS PO FOR 3 DAYS,THAN 2 TABS FOR 3 DAYS THAN, 1 TAB FOR 3 DAYS THAN, 1/2 TAB FOR 3 DAYS. PREDNISONE 20 MG ORAL TABS 695953 PREDNISONE Inactive PREDNISONE 20 MG ORAL TABS 3 daily for 3 days than, 2 tabs daily for 3 days than, 2 tabs daily for 3 days than, 1 tab daily for 3 days than 1/2 tab daily for 3 days. PREDNISONE 20 MG ORAL TABS 601807 PREDNISONE Inactive ZITHROMAX 250 MG TAB 2 po today, then 1 po q days 2-5 ZITHROMAX 250 MG TAB 4205276 AZITHROMYCIN Inactive PREDNISONE 20 MG TAB 2 tabs daily for 3 days, 1 tab daily for 3 days, 1/2 tab daily for 2 days PREDNISONE 20 MG TAB 014216 PREDNISONE Inactive KEFLEX 500 MG CAP 1 po TID x 7 days KEFLEX 500 MG CAP 345495 CEPHALEXIN Inactive LEVOFLOXACIN 500 MG ORAL TABS take 1 tab po qday LEVOFLOXACIN 500 MG ORAL TABS 389792 LEVOFLOXACIN Inactive PREDNISONE 20 MG TAB 2 tabs daily for 3 days, 1 tab daily for 3 days, 1/2 tab daily for 2 days PREDNISONE 20 MG TAB 361834 PREDNISONE Inactive DOXYCYCLINE HYCLATE 100 MG CAP 1 cap by mouth twice daily DOXYCYCLINE HYCLATE 100 MG CAP 0188165 DOXYCYCLINE HYCLATE Inactive PREDNISONE 20 MG TAB take 3 tabs daily for 3 days, 2 tabs daily for 3 days, 1 tab daily for 3 days, 1/2 tab daily for 3 days PREDNISONE 20 MG TAB 454666 PREDNISONE Inactive PREDNISONE 20 MG TAB take 3 tabs daily for 3 days, 2 tabs daily for 3 days, 1 tab daily for 3 days, 1/2 tab daily for 3 days PREDNISONE 20 MG TAB 635504 PREDNISONE Inactive Advance Directives Directive Description Start [...] m[iU]/mL 0.36-3.74 cholesterol, serum 136 mg/dL 130-200 Lab Report: Thyroid Stimulating Hormone (L), Comp. Metabolic Panel, CBC, ... - Chemistry cholesterol, serum 189 mg/dL 555-413 3110/04/06 triglyceride, serum, fasting 117 mg/dL 30-200 HDL cholesterol, serum 70 mg/dL 32-96 LDL cholesterol, serum 96 mg/dL 0-130 TSH 43.52 m[iU]/mL 0.36-3.74 sodium, serum 140 mmol/L 687-870 2035/04/06 carbon dioxide, venous blood 36.3 mmol/L 21.0-32.0 [...] 142-424 Encounters Code Encounter Date Provider Facility CPT-38449 Level 4 Est. Patient 10:51:20 CDT Austin Albarado MD [facility]-21714 Level 4 Est. Patient 20:09:43 SUPERVISOR PATCHING Austin Albarado MD [facility]-91600 Level 4 Est. Patient 21:00:28 CDT Austin Albarado MD [facility]-12210 Level 4 Est. Patient 10:03:37 CDT Austin Albarado MD [facility]-32799 Level 3 Est. Patient 10:50:28 SUPERVISOR PATCHING Austin Albarado MD [facility]-52912 Level 4 Est. Patient 21:31:41 SUPERVISOR PATCHING Austin Albarado MD [facility]-44083 Level 3 Est. Patient 16:22:54 SUPERVISOR PATCHING Jann Law DO [facility] CPT-78091 Level 3 Est. Patient 11:04:53 SUPERVISOR PATCHING Tristan Vaughn MD [facility] CPT-65415 Level 4 Est. Patient 09:50:59 CDT Austin Albarado MD [facility]-63326 Level 4 Est. Patient 09:29:00 CDT Austin Albarado MD [facility]-37628 Level 4 Est. Patient 14:23:07 CDT Austin Albarado MD [facility]-40094 Level 4 Est. Patient 14:27:26 CDT Austin Albarado MD [facility]-33160 Level 4 Est. Patient 12:51:43 SUPERVISOR PATCHING Austin Albarado MD [facility] CPT-91369 Level 3 New Patient 14:17:38 SUPERVISOR PATCHING Austin Albarado MD [facility] CPT-95573 Level 3 New Patient 11:28:18 SUPERVISOR PATCHING Austin Albarado MD [facility] Procedures Code Procedure Name Date Entry Date Standard Description CPT-G0009 Administration of Pneumococcal Vaccine 13:25:27 CDT CPT-16302 Prevnar 13 Intramuscular Suspension 13:25:27 CDT 09/26 CPT-G0438 Initial Annual Wellness Exam 11:28:26 CDT CPT-30013 Chest 2V Frontal and Lat 15:00:00 SUPERVISOR PATCHING CPT-13274 Breathing Tx 14:49:25 SUPERVISOR PATCHING CPT-42369 Fluzone High Dose 15:08:41 SUPERVISOR PATCHING CPT-86330 Immunization Single Admin 15:08:41 SUPERVISOR PATCHING CPT-70149 Fluzone High Dose 17:31:19 CDT CPT-07576 Administration single or combination vaccine inc oral 17 :31:19 CDT CPT-71871 Venipuncture Draw Fee 11:03:05 CDT CPT-TCMM Transitional Care Mgmt-Moderate 16:32:35 CDT CPT-88481 Chest 2V Frontal and Lat 11:51:09 CDT CPT-G0008 Administration of Influenza Virus Vaccine 15:09:08 CDT CPT-53576 Fluzone High-Dose Intramuscular Suspension 15:09:08 CDT CPT-38149 Administration single or combination vaccine inc oral 17 :07:02 SUPERVISOR PATCHING CPT-16628 Influenza High Dose age 65+ 17:07:02 SUPERVISOR PATCHING
--- OUTSIDE RECORDS SUMMARY | 2017-02-27 22:49 | XMS REPORT | Clinical Summary ---
Author Author Admin, LEE Organization [facility] Address Unknown Phone Unavailable Allergies, Adverse Reactions, [...] 1/2 tab daily for 4 days PREDNISONE 78690868162 No Longer Active Austin Albarado MD Active LEVAQUIN 500 MG TAB 1 tablet by mouth daily LEVOFLOXACIN 79222462602 No Longer Active Austin Albarado MD Active PREDNISONE 20 MG TAB take 3 tabs daily for 3 days, 2 tabs daily for 3 days, 1 tab daily for 3 days, 1/2 tab daily for 3 days PREDNISONE 65684919856 No Longer Active Austin Albarado MD Active DOXYCYCLINE HYCLATE 100 MG CAP 1 cap by mouth twice daily DOXYCYCLINE HYCLATE 50125547678 No Longer Active 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 SLEEVE MAKER Active ALBUTEROL SULFATE (2.5 MG/3ML) 0.083% NEBU nebulize 1 vial q 4-6 hours prn shortness of breath ALBUTEROL SULFATE 16362029825 No Longer Active 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 SLEEVE MAKER Active TORSEMIDE 20 MG TABS 1 TAB PO BID TORSEMIDE 07302983714 No Longer Active 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 SLEEVE MAKER Active PREDNISONE 20 MG TAB 2 tabs daily for 3 days, 1 tab daily for 3 days, 1/2 tab daily for 2 days PREDNISONE 48020818198 No Longer Active Austin Albarado MD Active LEVOFLOXACIN 500 MG ORAL TABS take 1 tab po qday LEVOFLOXACIN 41075446149 No Longer Active Austin Albarado MD Active PREDNISONE 20 MG TAB 2 tablets today, then 1 tablet by mouth days 2-5 PREDNISONE 70889430950 No Longer Active Austin Albarado MD Active AZITHROMYCIN 500 MG SOLR 1 po q day AZITHROMYCIN 16885470542 No Longer Active uAstin Albarado MD Active KEFLEX 500 MG CAP 1 po TID x 7 days CEPHALEXIN 27124391056 No Longer Active Tristan Vaughn MD Active EQL VISION FORMULA TABS 1 TAB PO DAILY MULTIPLE VITAMINS-MINERALS 06509390346 No Longer Active Tristan Vaughn MD Active CHANTIX STARTING MONTH ELVIS 0.5 MG X 11 & 1 MG X 42 TABS 0.5mg daily for 3 days , then 0.5mg BID for 4 days, then 1mg BID VARENICLINE TARTRATE 70219316707 No Longer Active Tristan Vaughn MD Active LEVOTHYROXINE SODIUM 200 MCG TABS 1 TAB PO DAILY LEVOTHYROXINE SODIUM 25032547775 No Longer Active Tristan Vaughn MD Active LIOTHYRONINE SODIUM 50 MCG TABS take 1 tab po qday for hypothyroidism LIOTHYRONINE SODIUM 44265139567 No Longer Active Austin Albarado MD Active SYNTHROID 0.025 MG TAB 1 tablet by mouth daily LEVOTHYROXINE SODIUM 98237148196 No Longer Active Austin Albarado MD Active ARMOUR THYROID 120 MG TABS take 1 tab po qday for hypothyroidism THYROID 74889829372 Active Austin Albarado MD Active FLONASE 50 MCG/ACT SUSP 1 spray each nostril am and hs FLUTICASONE PROPIONATE 09728742836 Active Austin Albarado MD Active ZITHROMAX 1 GM PACK DIRECTED AZITHROMYCIN 21735761987 No Longer Active Austin Albarado MD Active PREDNISONE 20 MG TAB 2 tabs daily for 3 days, 1 tab daily for 3 days, 1/2 tab daily for 2 days PREDNISONE 92242695271 No Longer Active Austin Albarado MD Active ZITHROMAX 250 MG TAB 2 po today, then 1 po q days 2-5 AZITHROMYCIN 49714191664 No Longer Active Austin Albarado MD Active NYSTATIN-TRIAMCINOLONE 609678-9.1 UNIT/GM-% OINT Apply to affected area TID NYSTATIN-TRIAMCINOLONE 17568839619 Active Austin Albarado MD Active IPRATROPIUM-ALBUTEROL 0.5-2.5 (3) MG/3ML SOLN 1 VIAL NEB Q 6 HRS PRN IPRATROPIUM-ALBUTEROL 70542184617 Active Austin Albarado MD Active PROAIR HFA 108 (90 BASE) MCG/ACT AERS take 1-2 puffs q4hrs prn cough/ SOB ALBUTEROL SULFATE 10443355997 Active Austin Albarado MD Active ADVAIR DISKUS 500-50 MCG/DOSE AEPB ONE INH BID FLUTICASONE- SALMETEROL 54483422346 Active Austin Albarado MD Active ZITHROMAX 1 GM PACK DIRECTED ZITHROMAX 1 GM PACK 608729 AZITHROMYCIN Inactive SYNTHROID 0.025 MG TAB 1 tablet by mouth daily SYNTHROID 0.025 MG TAB 813240 LEVOTHYROXINE SODIUM Inactive LIOTHYRONINE SODIUM 50 MCG TABS take 1 tab po qday for hypothyroidism LIOTHYRONINE SODIUM 50 MCG TABS 041951 LIOTHYRONINE SODIUM Inactive LEVOTHYROXINE SODIUM 200 MCG TABS 1 TAB PO DAILY LEVOTHYROXINE SODIUM 200 MCG TABS 638657 LEVOTHYROXINE SODIUM Inactive CHANTIX STARTING MONTH ELVIS [...] po q day AZITHROMYCIN 500 MG SOLR 777558 AZITHROMYCIN Inactive PREDNISONE 20 MG TAB 2 tablets today, then 1 tablet by mouth days 2-5 PREDNISONE 20 MG TAB 370935 PREDNISONE Inactive TORSEMIDE 20 MG TABS 1 TAB PO BID TORSEMIDE 20 MG TABS 418712 TORSEMIDE Inactive ALBUTEROL SULFATE (2.5 MG/3ML) 0.083% NEBU nebulize 1 vial q 4-6 hours prn shortness of breath ALBUTEROL SULFATE (2.5 MG/3ML) 0.083% NEBU 309723 ALBUTEROL SULFATE Inactive LEVAQUIN 500 MG TAB 1 tablet by mouth daily LEVAQUIN 500 MG TAB 439741 LEVOFLOXACIN Inactive PREDNISONE 20 MG TAB 2 tabs daily for 4 days, 1 tab daily for 4 days, 1/2 tab daily for 4 days PREDNISONE 20 MG TAB 778922 PREDNISONE Inactive ZITHROMAX 250 MG TAB 2 po today, then 1 po q days 2-5 ZITHROMAX 250 MG TAB 4029140 AZITHROMYCIN Inactive PREDNISONE 20 MG TAB 2 tabs daily for 3 days, 1 tab daily for 3 days, 1/2 tab daily for 2 days PREDNISONE 20 MG TAB 633257 PREDNISONE Inactive KEFLEX 500 MG CAP 1 po TID x 7 days KEFLEX 500 MG CAP 873474 CEPHALEXIN Inactive LEVOFLOXACIN 500 MG ORAL TABS take 1 tab po qday LEVOFLOXACIN 500 MG ORAL TABS 203721 LEVOFLOXACIN Inactive PREDNISONE 20 MG TAB 2 tabs daily for 3 days, 1 tab daily for 3 days, 1/2 tab daily for 2 days PREDNISONE 20 MG TAB 212462 PREDNISONE Inactive DOXYCYCLINE HYCLATE 100 MG CAP 1 cap by mouth twice daily DOXYCYCLINE HYCLATE 100 MG CAP 9322146 DOXYCYCLINE HYCLATE Inactive PREDNISONE 20 MG TAB take 3 tabs daily for 3 days, 2 tabs daily for 3 days, 1 tab daily for 3 days, 1/2 tab daily for 3 days PREDNISONE 20 MG TAB 518202 PREDNISONE Inactive Advance Directives Directive Description Start [...] ... - Chemistry sodium, serum 140 mmol/L 567-608 8301/03/09 potassium, serum 4.9 mmol/L 3.5-5.2 chloride, serum [...] 142-424 Encounters Code Encounter Date Provider Facility CPT-11394 Level 4 Est. Patient 10:03:37 CDT Austin Albarado MD [facility] CPT-99927 Level 3 Est. Patient 10:50:28 PHILANTHROPY OFFICER Austin Albarado MD [facility] CPT-22825 Level 4 Est. Patient 21:31:41 PHILANTHROPY OFFICER Austin Albarado MD [facility] CPT-54998 Level 3 Est. Patient 16:22:54 PHILANTHROPY OFFICER Jann Law DO [facility] CPT-50090 Level 3 Est. Patient 11:04:53 PHILANTHROPY OFFICER Tristan Vaughn MD [facility] CPT-31889 Level 4 Est. Patient 09:50:59 CDT Austin Albarado MD [facility] CPT-76312 Level 4 Est. Patient 09:29:00 CDT uAstin Albarado MD [facility] CPT-26604 Level 4 Est. Patient 14:23:07 CDT Austin Albarado MD [facility] CPT-11910 Level 4 Est. Patient 14:27:26 CDT Austin Albarado MD [facility] CPT-00014 Level 4 Est. Patient 12:51:43 PHILANTHROPY OFFICER Austin Albarado MD [facility] CPT-61812 Level 3 New Patient 14:17:38 PHILANTHROPY OFFICER Austin Albarado MD [facility] CPT-25880 Level 3 New Patient 11:28:18 PHILANTHROPY OFFICER Austin Albarado MD [facility] Procedures Code Procedure Name Date Entry Date Standard Description CPT-TCMM Transitional Care Mgmt-Moderate 16:32:35 CDT CPT-62595 Chest 2V Frontal and Lat 11:51:09 CDT CPT-G0008 Administration of Influenza Virus Vaccine 15:09:08 CDT CPT-52766 Fluzone High-Dose Intramuscular Suspension 15:09:08 CDT CPT-62714 Administration single or combination vaccine inc oral 17 :07:02 PHILANTHROPY OFFICER CPT-79669 Influenza High Dose age 65+ 17:07:02 PHILANTHROPY OFFICER
--- OUTSIDE RECORDS SUMMARY | 2017-02-27 22:50 | XMS REPORT | Clinical Summary ---
Author Author Admin, LEE Organization [facility] Address Unknown Phone Unavailable Allergies, [...] 1 daily as needed for swelling FUROSEMIDE 86858519004 Active Garcia Stroud MD Active AMOXICILLIN 500 MG ORAL TABS Take one by mouth 3 times daily, morning, afternoon and evening.] AMOXICILLIN 09214522759 No Longer Active Garcia Stroud MD Active PREDNISONE 20 MG ORAL TABS 3 daily for 3 days than, 2 tabs daily for 3 days than, 2 tabs daily for 3 days than, 1 tab daily for 3 days than 1/2 tab daily for 3 days. PREDNISONE 75424856143 No Longer Active Tracie Arrington APRN Active FLUTICASONE PROPIONATE 50 MCG/ACT SUSP 1 to 2 sprays each nostril daily 08/21 FLUTICASONE PROPIONATE 79338920106 Active Simona Galloway APRN Active PREDNISONE 10 MG TAB take 1 tab po qday for severe COPD PREDNISONE 81332634867 Active Austin Albarado MD Active PREDNISONE 20 MG ORAL TABS 3 TABS PO FOR 3 DAYS,THAN 2 TABS FOR 3 DAYS THAN, 1 TAB FOR 3 DAYS THAN, 1/2 TAB FOR 3 DAYS. PREDNISONE 30379737935 No Longer Active Austin Albarado MD Active LEVAQUIN 500 MG TAB 1 tablet by mouth daily for 10 days. LEVOFLOXACIN 87930231166 No Longer Active Austin Albarado MD Active PREDNISONE 20 MG TAB take 3 tabs daily for 3 days, 2 tabs daily for 3 days, 1 tab daily for 3 days, 1/2 tab daily for 3 days PREDNISONE 81478864834 No Longer Active Simona Galloway APRN Active ZITHROMAX 1 GM ORAL PACK DIRECTED AZITHROMYCIN 92419015937 No Longer Active Simona Galloway APRN Active PREDNISONE 20 MG TAB 2 tabs daily for 4 days, 1 tab daily for 4 days, 1/2 tab daily for 4 days PREDNISONE 07685079572 No Longer Active Austin Albarado MD Active LEVAQUIN 500 MG TAB 1 tablet by mouth daily LEVOFLOXACIN 85978540887 No Longer Active Austin Albarado MD Active PREDNISONE 20 MG TAB take 3 tabs daily for 3 days, 2 tabs daily for 3 days, 1 tab daily for 3 days, 1/2 tab daily for 3 days PREDNISONE 31612054849 No Longer Active Austin Albarado MD Active DOXYCYCLINE HYCLATE 100 MG CAP 1 cap by mouth twice daily DOXYCYCLINE HYCLATE 49932004645 No Longer Active Jikatyaina Ly BOWEN Active ALBUTEROL SULFATE (2.5 MG/3ML) 0.083% NEBU nebulize 1 vial q 4-6 hours prn shortness of breath ALBUTEROL SULFATE 64723549146 No Longer Active 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 MECHANICAL MAINTENANCE FOREMAN Active TORSEMIDE 20 MG TABS 1 TAB PO BID TORSEMIDE 74999898757 No Longer Active Jillina Frashonnal MECHANICAL MAINTENANCE FOREMAN Active PREDNISONE 20 MG TAB 2 tabs daily for 3 days, 1 tab daily for 3 days, 1/2 tab daily for 2 days PREDNISONE 22056522596 No Longer Active Austin Albarado MD Active LEVOFLOXACIN 500 MG ORAL TABS take 1 tab po qday LEVOFLOXACIN 01471171793 No Longer Active Austin Albarado MD Active PREDNISONE 20 MG TAB 2 tablets today, then 1 tablet by mouth days 2-5 PREDNISONE 30666923168 No Longer Active Austin Albarado MD Active AZITHROMYCIN 500 MG SOLR 1 po q day AZITHROMYCIN 21897634334 No Longer Active Austin Albarado MD Active KEFLEX 500 MG CAP 1 po TID x 7 days CEPHALEXIN 81735384979 No Longer Active Tristan Vaughn MD Active EQL VISION FORMULA TABS 1 TAB PO DAILY MULTIPLE VITAMINS-MINERALS 09385535591 No Longer Active Tristan Vaughn MD Active CHANTIX STARTING MONTH ELVIS 0.5 MG X 11 & 1 MG X 42 TABS 0.5mg daily for 3 days , then 0.5mg BID for 4 days, then 1mg BID VARENICLINE TARTRATE 39083847921 No Longer Active Tristan Vaughn MD Active LEVOTHYROXINE SODIUM 200 MCG TABS 1 TAB PO DAILY LEVOTHYROXINE SODIUM 35837130791 No Longer Active Tristan Vaughn MD Active LIOTHYRONINE SODIUM 50 MCG TABS take 1 tab po qday for hypothyroidism LIOTHYRONINE SODIUM 69580266283 No Longer Active Austin Albarado MD Active SYNTHROID 0.025 MG TAB 1 tablet by mouth daily LEVOTHYROXINE SODIUM 33989553545 No Longer Active Austin Albarado MD Active ARMOUR THYROID 120 MG TABS take 1 tab po qday for hypothyroidism THYROID 68609285723 Active Austin Albarado MD Active FLONASE 50 MCG/ACT SUSP 1 spray each nostril am and hs FLUTICASONE PROPIONATE Active Simona Nilesh MECHANICAL MAINTENANCE FOREMAN Active ZITHROMAX 1 GM PACK DIRECTED AZITHROMYCIN 74826226296 No Longer Active Austin Albarado MD Active PREDNISONE 20 MG TAB 2 tabs daily for 3 days, 1 tab daily for 3 days, 1/2 tab daily for 2 days PREDNISONE 10858337421 No Longer Active Austin Albarado MD Active ZITHROMAX 250 MG TAB 2 po today, then 1 po q days 2-5 AZITHROMYCIN 20612764920 No Longer Active Austin Albarado MD Active NYSTATIN-TRIAMCINOLONE 948681-4.1 UNIT/GM-% OINT Apply to affected area TID NYSTATIN-TRIAMCINOLONE 23319673908 Active Austin Albarado MD Active IPRATROPIUM-ALBUTEROL 0.5-2.5 (3) MG/3ML SOLN 1 VIAL NEB Q 6 HRS PRN IPRATROPIUM-ALBUTEROL 77515209409 Active Austin Albarado MD Active PROAIR HFA 108 (90 BASE) MCG/ACT AERS take 1-2 puffs q4hrs prn cough/ SOB ALBUTEROL SULFATE 57001852981 Active Austin Albarado MD Active ADVAIR DISKUS 500-50 MCG/DOSE AEPB ONE INH BID FLUTICASONE- SALMETEROL 84794798177 Active Austin Albarado MD Active ZITHROMAX 1 GM PACK DIRECTED ZITHROMAX 1 GM PACK 624648 AZITHROMYCIN Inactive SYNTHROID 0.025 MG TAB 1 tablet by mouth daily SYNTHROID 0.025 MG TAB 692860 LEVOTHYROXINE SODIUM Inactive LIOTHYRONINE SODIUM 50 MCG TABS take 1 tab po qday for hypothyroidism LIOTHYRONINE SODIUM 50 MCG TABS 536325 LIOTHYRONINE SODIUM Inactive LEVOTHYROXINE SODIUM 200 MCG TABS 1 TAB PO DAILY LEVOTHYROXINE SODIUM 200 MCG TABS 948090 LEVOTHYROXINE SODIUM Inactive CHANTIX STARTING MONTH ELVIS [...] po q day AZITHROMYCIN 500 MG SOLR 86262660029 AZITHROMYCIN Inactive PREDNISONE 20 MG TAB 2 tablets today, then 1 tablet by mouth days 2-5 PREDNISONE 20 MG TAB 967252 PREDNISONE Inactive TORSEMIDE 20 MG TABS 1 TAB PO BID TORSEMIDE 20 MG TABS 464771 TORSEMIDE Inactive ALBUTEROL SULFATE (2.5 MG/3ML) 0.083% NEBU nebulize 1 vial q 4-6 hours prn shortness of breath ALBUTEROL SULFATE (2.5 MG/3ML) 0.083% NEBU 090253 ALBUTEROL SULFATE Inactive LEVAQUIN 500 MG TAB 1 tablet by mouth daily LEVAQUIN 500 MG TAB 962097 LEVOFLOXACIN Inactive PREDNISONE 20 MG TAB 2 tabs daily for 4 days, 1 tab daily for 4 days, 1/2 tab daily for 4 days PREDNISONE 20 MG TAB 907174 PREDNISONE Inactive ZITHROMAX 1 GM ORAL PACK DIRECTED ZITHROMAX 1 GM ORAL PACK 109356 AZITHROMYCIN Inactive LEVAQUIN 500 MG TAB 1 tablet by mouth daily for 10 days. LEVAQUIN 500 MG TAB 591615 LEVOFLOXACIN Inactive PREDNISONE 20 MG ORAL TABS 3 TABS PO FOR 3 DAYS,THAN 2 TABS FOR 3 DAYS THAN, 1 TAB FOR 3 DAYS THAN, 1/2 TAB FOR 3 DAYS. PREDNISONE 20 MG ORAL TABS 623032 PREDNISONE Inactive PREDNISONE 20 MG ORAL TABS 3 daily for 3 days than, 2 tabs daily for 3 days than, 2 tabs daily for 3 days than, 1 tab daily for 3 days than 1/2 tab daily for 3 days. PREDNISONE 20 MG ORAL TABS 921464 PREDNISONE Inactive AMOXICILLIN 500 MG ORAL TABS Take one by mouth 3 times daily, morning, afternoon and evening.] AMOXICILLIN 500 MG ORAL TABS 803023 AMOXICILLIN Inactive ZITHROMAX 250 MG TAB 2 po today, then 1 po q days 2-5 ZITHROMAX 250 MG TAB 2023365 AZITHROMYCIN Inactive PREDNISONE 20 MG TAB 2 tabs daily for 3 days, 1 tab daily for 3 days, 1/2 tab daily for 2 days PREDNISONE 20 MG TAB 002483 PREDNISONE Inactive KEFLEX 500 MG CAP 1 po TID x 7 days KEFLEX 500 MG CAP 157327 CEPHALEXIN Inactive LEVOFLOXACIN 500 MG ORAL TABS take 1 tab po qday LEVOFLOXACIN 500 MG ORAL TABS 506363 LEVOFLOXACIN Inactive PREDNISONE 20 MG TAB 2 tabs daily for 3 days, 1 tab daily for 3 days, 1/2 tab daily for 2 days PREDNISONE 20 MG TAB 547821 PREDNISONE Inactive DOXYCYCLINE HYCLATE 100 MG CAP 1 cap by mouth twice daily DOXYCYCLINE HYCLATE 100 MG CAP 9717487 DOXYCYCLINE HYCLATE Inactive PREDNISONE 20 MG TAB take 3 tabs daily for 3 days, 2 tabs daily for 3 days, 1 tab daily for 3 days, 1/2 tab daily for 3 days PREDNISONE 20 MG TAB 622385 PREDNISONE Inactive PREDNISONE 20 MG TAB take 3 tabs daily for 3 days, 2 tabs daily for 3 days, 1 tab daily for 3 days, 1/2 tab daily for 3 days PREDNISONE 20 MG TAB 304257 PREDNISONE Inactive Advance Directives Directive Description Start [...] ... - Chemistry cholesterol, serum 136 mg/dL 939-972 7090/10/06 triglyceride, serum, fasting 30 mg/dL 30-200 HDL cholesterol, serum 57 mg/dL 32-96 LDL cholesterol, serum 73 mg/dL 0-130 prostate specific antigen 1.45 ng/mL 0.00-4.00 thyroxine, serum, free 0.80 ng/dL 0.76-1.46 TSH 14.03 m[iU]/mL 0.36-3.74 Lab Report: Thyroid Stimulating Hormone (L), Comp. Metabolic Panel, CBC, ... - Chemistry TSH 43.52 m[iU]/mL 0.36-3.74 sodium, serum 140 mmol/L 983-641 9596/04/06 carbon dioxide, venous blood 36.3 mmol/L 21.0-32.0 potassium, serum 4.9 mmol/L 3.5-5.2 chloride, serum 100 mmol/L 98-107 blood glucose 62 mg/dL 65-110 urea nitrogen, blood 24 mg/dL 7-18 creatinine, serum 1.09 mg/dL 0.55-1.30 alanine aminotransferase (SGPT), serum 44 U/L 12-78 aspartate aminotransferase (SGOT), serum 25 U/L 15-37 calcium, serum 8.7 mg/dL 8.5-10.1 bilirubin, serum, total 0.50 mg/dL 0.00-1.00 cholesterol, serum 189 mg/dL 075-484 9266/04/06 triglyceride, serum, fasting 117 mg/dL 30-200 HDL [...] 142-424 Encounters Code Encounter Date Provider Facility CPT-77123 Level 4 Est. Patient 13:27:28 CDT Garcia Stroud MD [facility] CPT-72217 Level 4 Est. Patient 10:51:20 CDT Austin Albarado MD [facility] CPT-54751 Level 4 Est. Patient 20:09:43 POLE CLASSIFIER Austin Albarado MD [facility] CPT-04361 Level 4 Est. Patient 21:00:28 CDT Austin Albarado MD [facility] CPT-69309 Level 4 Est. Patient 10:03:37 CDT Austin Albarado MD [facility] CPT-63779 Level 3 Est. Patient 10:50:28 POLE CLASSIFIER Austin Albarado MD [facility] CPT-13458 Level 4 Est. Patient 21:31:41 POLE CLASSIFIER Austin Albarado MD [facility] CPT-96356 Level 3 Est. Patient 16:22:54 POLE CLASSIFIER Jann Law DO [facility] CPT-49600 Level 3 Est. Patient 11:04:53 POLE CLASSIFIER Tristan Vaughn MD [facility] CPT-38523 Level 4 Est. Patient 09:50:59 CDT Austin Albarado MD [facility] CPT-94375 Level 4 Est. Patient 09:29:00 CDT Austin Albarado MD [facility] CPT-33268 Level 4 Est. Patient 14:23:07 CDT Austin Albarado MD [facility] CPT-74699 Level 4 Est. Patient 14:27:26 CDT Austin Albarado MD [facility] CPT-67652 Level 4 Est. Patient 12:51:43 POLE CLASSIFIER Austin Albarado MD [facility] CPT-80826 Level 3 New Patient 14:17:38 POLE CLASSIFIER Austin Albarado MD [facility] CPT-06208 Level 3 New Patient 11:28:18 POLE CLASSIFIER Austin Albarado MD [facility] Procedures Code Procedure Name Date Entry Date Standard Description CPT-G0009 Administration of Pneumococcal Vaccine 13:25:27 CDT CPT-66436 Prevnar 13 Intramuscular Suspension 13:25:27 CDT 09/26 CPT-G0438 Initial Annual Wellness Exam 11:28:26 CDT CPT-13242 Chest 2V Frontal and Lat 15:00:00 POLE CLASSIFIER CPT-52566 Breathing Tx 14:49:25 POLE CLASSIFIER CPT-48595 Fluzone High Dose 15:08:41 POLE CLASSIFIER CPT-40662 Immunization Single Admin 15:08:41 POLE CLASSIFIER CPT-71537 Fluzone High Dose 17:31:19 CDT CPT-33683 Administration single or combination vaccine inc oral 17 :31:19 CDT CPT-85609 Venipuncture Draw Fee 11:03:05 CDT CPT-TCMM Transitional Care Mgmt-Moderate 16:32:35 CDT CPT-28858 Chest 2V Frontal and Lat 11:51:09 CDT CPT-G0008 Administration of Influenza Virus Vaccine 15:09:08 CDT CPT-80633 Fluzone High-Dose Intramuscular Suspension 15:09:08 CDT CPT-55410 Administration single or combination vaccine inc oral 17 :07:02 POLE CLASSIFIER CPT-01275 Influenza High Dose age 65+ 17:07:02 POLE CLASSIFIER
--- OUTSIDE RECORDS SUMMARY | 2017-02-27 22:51 | XMS REPORT | Clinical Summary ---
Author Author Admin, LEE Organization [facility] Address Unknown Phone Unavailable Allergies, Adverse [...] sprays each nostril daily 08/21 FLUTICASONE PROPIONATE 90627041685 Active Austin Albarado MD Active PREDNISONE 10 MG TAB take 1 tab po qday for severe COPD PREDNISONE 62923881339 Active Austin Albarado MD Active PREDNISONE 20 MG ORAL TABS 3 daily for 3 days than, 2 tabs daily for 3 days than, 2 tabs daily for 3 days than, 1 tab daily for 3 days than 1/2 tab daily for 3 days. PREDNISONE 40743969828 Active Madhavi Fiore Active PREDNISONE 20 MG ORAL TABS 3 TABS PO FOR 3 DAYS,THAN 2 TABS FOR 3 DAYS THAN, 1 TAB FOR 3 DAYS THAN, 1/2 TAB FOR 3 DAYS. PREDNISONE 11693367632 No Longer Active Austin Albarado MD Active LEVAQUIN 500 MG TAB 1 tablet by mouth daily for 10 days. LEVOFLOXACIN 92047351953 No Longer Active Austin Albarado MD Active PREDNISONE 20 MG TAB take 3 tabs daily for 3 days, 2 tabs daily for 3 days, 1 tab daily for 3 days, 1/2 tab daily for 3 days PREDNISONE 84574853641 No Longer Active Simona Galloway APRN Active ZITHROMAX 1 GM ORAL PACK DIRECTED AZITHROMYCIN 22355831951 No Longer Active Simona Galloway APRN Active PREDNISONE 20 MG TAB 2 tabs daily for 4 days, 1 tab daily for 4 days, 1/2 tab daily for 4 days PREDNISONE 96081969995 No Longer Active Austin Albarado MD Active LEVAQUIN 500 MG TAB 1 tablet by mouth daily LEVOFLOXACIN 57698522619 No Longer Active Austin Albarado MD Active PREDNISONE 20 MG TAB take 3 tabs daily for 3 days, 2 tabs daily for 3 days, 1 tab daily for 3 days, 1/2 tab daily for 3 days PREDNISONE 54139958954 No Longer Active Austin Albarado MD Active DOXYCYCLINE HYCLATE 100 MG CAP 1 cap by mouth twice daily DOXYCYCLINE HYCLATE 80295761999 No Longer Active 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 PUMPER GAUGER Active ALBUTEROL SULFATE (2.5 MG/3ML) 0.083% NEBU nebulize 1 vial q 4-6 hours prn shortness of breath ALBUTEROL SULFATE 79043963972 No Longer Active 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 PUMPER GAUGER Active TORSEMIDE 20 MG TABS 1 TAB PO BID TORSEMIDE 48308608125 No Longer Active 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 PUMPER GAUGER Active PREDNISONE 20 MG TAB 2 tabs daily for 3 days, 1 tab daily for 3 days, 1/2 tab daily for 2 days PREDNISONE 76762123173 No Longer Active Austin Albarado MD Active LEVOFLOXACIN 500 MG ORAL TABS take 1 tab po qday LEVOFLOXACIN 43327048001 No Longer Active Austin Albarado MD Active PREDNISONE 20 MG TAB 2 tablets today, then 1 tablet by mouth days 2-5 PREDNISONE 31206706769 No Longer Active Austin Albarado MD Active AZITHROMYCIN 500 MG SOLR 1 po q day AZITHROMYCIN 71294968038 No Longer Active Austin Albarado MD Active KEFLEX 500 MG CAP 1 po TID x 7 days CEPHALEXIN 14417082218 No Longer Active Tristan Vaughn MD Active EQL VISION FORMULA TABS 1 TAB PO DAILY MULTIPLE VITAMINS-MINERALS 26881435304 No Longer Active Tristan Vaughn MD Active CHANTIX STARTING MONTH ELVIS 0.5 MG X 11 & 1 MG X 42 TABS 0.5mg daily for 3 days , then 0.5mg BID for 4 days, then 1mg BID VARENICLINE TARTRATE 23170912078 No Longer Active Tristan Vaughn MD Active LEVOTHYROXINE SODIUM 200 MCG TABS 1 TAB PO DAILY LEVOTHYROXINE SODIUM 67365981493 No Longer Active Tristan Vaughn MD Active LIOTHYRONINE SODIUM 50 MCG TABS take 1 tab po qday for hypothyroidism LIOTHYRONINE SODIUM 22642733314 No Longer Active Austin Albarado MD Active SYNTHROID 0.025 MG TAB 1 tablet by mouth daily LEVOTHYROXINE SODIUM 58760059208 No Longer Active Austin Albarado MD Active ARMOUR THYROID 120 MG TABS take 1 tab po qday for hypothyroidism THYROID 67110262551 Active Austin Albarado MD Active FLONASE 50 MCG/ACT SUSP 1 spray each nostril am and hs FLUTICASONE PROPIONATE Active Simona Galloway APRN Active ZITHROMAX 1 GM PACK DIRECTED AZITHROMYCIN 66993674461 No Longer Active Austin Albarado MD Active PREDNISONE 20 MG TAB 2 tabs daily for 3 days, 1 tab daily for 3 days, 1/2 tab daily for 2 days PREDNISONE 64588652846 No Longer Active Austin Albarado MD Active ZITHROMAX 250 MG TAB 2 po today, then 1 po q days 2-5 AZITHROMYCIN 47230604414 No Longer Active Austin Albarado MD Active NYSTATIN-TRIAMCINOLONE 244748-9.1 UNIT/GM-% OINT Apply to affected area TID NYSTATIN-TRIAMCINOLONE 84264489976 Active Austin Albarado MD Active IPRATROPIUM-ALBUTEROL 0.5-2.5 (3) MG/3ML SOLN 1 VIAL NEB Q 6 HRS PRN IPRATROPIUM-ALBUTEROL 95071358140 Active Austin Albarado MD Active PROAIR HFA 108 (90 BASE) MCG/ACT AERS take 1-2 puffs q4hrs prn cough/ SOB ALBUTEROL SULFATE 84258238255 Active Austin Albarado MD Active ADVAIR DISKUS 500-50 MCG/DOSE AEPB ONE INH BID FLUTICASONE- SALMETEROL 66011715414 Active Austin Albarado MD Active ZITHROMAX 1 GM PACK DIRECTED ZITHROMAX 1 GM PACK 671640 AZITHROMYCIN Inactive SYNTHROID 0.025 MG TAB 1 tablet by mouth daily SYNTHROID 0.025 MG TAB 678623 LEVOTHYROXINE SODIUM Inactive LIOTHYRONINE SODIUM 50 MCG TABS take 1 tab po qday for hypothyroidism LIOTHYRONINE SODIUM 50 MCG TABS 698831 LIOTHYRONINE SODIUM Inactive LEVOTHYROXINE SODIUM 200 MCG TABS 1 TAB PO DAILY LEVOTHYROXINE SODIUM 200 MCG TABS 968486 LEVOTHYROXINE SODIUM Inactive CHANTIX STARTING MONTH ELVIS [...] po q day AZITHROMYCIN 500 MG SOLR 22537019034 AZITHROMYCIN Inactive PREDNISONE 20 MG TAB 2 tablets today, then 1 tablet by mouth days 2-5 PREDNISONE 20 MG TAB 852436 PREDNISONE Inactive TORSEMIDE 20 MG TABS 1 TAB PO BID TORSEMIDE 20 MG TABS 675704 TORSEMIDE Inactive ALBUTEROL SULFATE (2.5 MG/3ML) 0.083% NEBU nebulize 1 vial q 4-6 hours prn shortness of breath ALBUTEROL SULFATE (2.5 MG/3ML) 0.083% NEBU 642489 ALBUTEROL SULFATE Inactive LEVAQUIN 500 MG TAB 1 tablet by mouth daily LEVAQUIN 500 MG TAB 080947 LEVOFLOXACIN Inactive PREDNISONE 20 MG TAB 2 tabs daily for 4 days, 1 tab daily for 4 days, 1/2 tab daily for 4 days PREDNISONE 20 MG TAB 691272 PREDNISONE Inactive ZITHROMAX 1 GM ORAL PACK DIRECTED ZITHROMAX 1 GM ORAL PACK 461583 AZITHROMYCIN Inactive LEVAQUIN 500 MG TAB 1 tablet by mouth daily for 10 days. LEVAQUIN 500 MG TAB 680738 LEVOFLOXACIN Inactive PREDNISONE 20 MG ORAL TABS 3 TABS PO FOR 3 DAYS,THAN 2 TABS FOR 3 DAYS THAN, 1 TAB FOR 3 DAYS THAN, 1/2 TAB FOR 3 DAYS. PREDNISONE 20 MG ORAL TABS 475072 PREDNISONE Inactive ZITHROMAX 250 MG TAB 2 po today, then 1 po q days 2-5 ZITHROMAX 250 MG TAB 1766443 AZITHROMYCIN Inactive PREDNISONE 20 MG TAB 2 tabs daily for 3 days, 1 tab daily for 3 days, 1/2 tab daily for 2 days PREDNISONE 20 MG TAB 566171 PREDNISONE Inactive KEFLEX 500 MG CAP 1 po TID x 7 days KEFLEX 500 MG CAP 739560 CEPHALEXIN Inactive LEVOFLOXACIN 500 MG ORAL TABS take 1 tab po qday LEVOFLOXACIN 500 MG ORAL TABS 272521 LEVOFLOXACIN Inactive PREDNISONE 20 MG TAB 2 tabs daily for 3 days, 1 tab daily for 3 days, 1/2 tab daily for 2 days PREDNISONE 20 MG TAB 584658 PREDNISONE Inactive DOXYCYCLINE HYCLATE 100 MG CAP 1 cap by mouth twice daily DOXYCYCLINE HYCLATE 100 MG CAP 9912656 DOXYCYCLINE HYCLATE Inactive PREDNISONE 20 MG TAB take 3 tabs daily for 3 days, 2 tabs daily for 3 days, 1 tab daily for 3 days, 1/2 tab daily for 3 days PREDNISONE 20 MG TAB 074559 PREDNISONE Inactive PREDNISONE 20 MG TAB take 3 tabs daily for 3 days, 2 tabs daily for 3 days, 1 tab daily for 3 days, 1/2 tab daily for 3 days PREDNISONE 20 MG TAB 351443 PREDNISONE Inactive Advance Directives Directive Description Start [...] ... - Chemistry cholesterol, serum 136 mg/dL 994-278 1249/10/06 triglyceride, serum, fasting 30 mg/dL 30-200 HDL cholesterol, serum 57 mg/dL 32-96 LDL cholesterol, serum 73 mg/dL 0-130 prostate specific antigen 1.45 ng/mL 0.00-4.00 thyroxine, serum, free 0.80 ng/dL 0.76-1.46 TSH 14.03 m[iU]/mL 0.36-3.74 Lab Report: Thyroid Stimulating Hormone (L), Comp. Metabolic Panel, CBC, ... - Chemistry TSH 43.52 m[iU]/mL 0.36-3.74 sodium, serum 140 mmol/L 032-497 0318/04/06 carbon dioxide, venous blood 36.3 mmol/L 21.0-32.0 potassium, serum 4.9 mmol/L 3.5-5.2 chloride, serum 100 mmol/L 98-107 blood glucose 62 mg/dL 65-110 urea nitrogen, blood 24 mg/dL 7-18 creatinine, serum 1.09 mg/dL 0.55-1.30 alanine aminotransferase (SGPT), serum 44 U/L 12-78 aspartate aminotransferase (SGOT), serum 25 U/L 15-37 calcium, serum 8.7 mg/dL 8.5-10.1 bilirubin, serum, total 0.50 mg/dL 0.00-1.00 cholesterol, serum 189 mg/dL 792-124 8721/04/06 triglyceride, serum, fasting 117 mg/dL 30-200 HDL [...] 142-424 Encounters Code Encounter Date Provider Facility CPT-96977 Level 4 Est. Patient 10:51:20 CDT [facility] CPT-44043 Level 4 Est. Patient 20:09:43 EXTENSION SERVICE ADVISOR Austin Albarado [facility] CPT-60564 Level 4 Est. Patient 21:00:28 CDT Austin Albarado MD [facility] CPT-69389 Level 4 Est. Patient 10:03:37 CDT Austin Albarado MD [facility] CPT-40278 Level 3 Est. Patient 10:50:28 EXTENSION SERVICE ADVISOR Austin Albarado MD [facility] CPT-49099 Level 4 Est. Patient 21:31:41 EXTENSION SERVICE ADVISOR Austin Albarado MD [facility] CPT-92329 Level 3 Est. Patient 16:22:54 EXTENSION SERVICE ADVISOR Jann Law DO [facility] CPT-57086 Level 3 Est. Patient 11:04:53 EXTENSION SERVICE ADVISOR Tristan Vaughn MD [facility] CPT-29312 Level 4 Est. Patient 09:50:59 CDT Austin Albarado MD [facility] CPT-25657 Level 4 Est. Patient 09:29:00 CDT [facility] CPT-34750 Level 4 Est. Patient 14:23:07 CDT Austin Albarado MD [facility] CPT-56913 Level 4 Est. Patient 14:27:26 CDT Austin Albarado MD [facility] CPT-33246 Level 4 Est. Patient 12:51:43 EXTENSION SERVICE ADVISOR Austin Albarado MD [facility] CPT-29262 Level 3 New Patient 14:17:38 EXTENSION SERVICE ADVISOR Austin Albarado MD [facility] CPT-97066 Level 3 New Patient 11:28:18 EXTENSION SERVICE ADVISOR Austin Albarado MD [facility] Procedures Code Procedure Name Date Entry Date Standard Description CPT-75446 Chest 2V Frontal and Lat 15:00:00 EXTENSION SERVICE ADVISOR CPT-89182 Breathing Tx 14:49:25 EXTENSION SERVICE ADVISOR CPT-68406 Fluzone High Dose 15:08:41 EXTENSION SERVICE ADVISOR CPT-93837 Immunization Single Admin 15:08:41 EXTENSION SERVICE ADVISOR CPT-42713 Fluzone High Dose 17:31:19 CDT CPT-38325 Administration single or combination vaccine inc oral 17 :31:19 CDT CPT-92363 Venipuncture Draw Fee 11:03:05 CDT CPT-TCMM Transitional Care Mgmt-Moderate 16:32:35 CDT CPT-08022 Chest 2V Frontal and Lat 11:51:09 CDT CPT-G0008 Administration of Influenza Virus Vaccine 15:09:08 CDT CPT-44419 Fluzone High-Dose Intramuscular Suspension 15:09:08 CDT CPT-15636 Administration single or combination vaccine inc oral 17 :07:02 EXTENSION SERVICE ADVISOR CPT-55549 Influenza High Dose age 65+ 17:07:02 EXTENSION SERVICE ADVISOR
--- OUTSIDE RECORDS SUMMARY | 2017-02-27 22:52 | XMS REPORT | Clinical Summary ---
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 Tracie Arrington [employer]ROFESSIONAL Chronic airway obstruction, not elsewhere classified Family history of myocardial infarction V17.3 Active Tracie Arrington [employer]OFESSIONAL Family history of ischemic heart disease CAD 414.00 Active Tracie Arrington [employer]ROFESSIONAL Coronary atherosclerosis of unspecified type of vessel, stillaguamish or graft Peripheral edema 782.3 Active Austin [...] 1 po BID x 7 days CEPHALEXIN 21259856890 No Longer Active Mica Sneed Active KEFLEX 500 MG CAP 1 po BID x 7 days CEPHALEXIN 10751244442 No Longer Active Simona Galloway APRN Active ACYCLOVIR 400 MG TABS 1 pill three times daily ACYCLOVIR 82672294834 No Longer Active Austin Albarado MD Active ACYCLOVIR 400 MG TABS 1 pill three times daily ACYCLOVIR 64699449568 No Longer Active Austin Albarado MD Active ALBUTEROL SULFATE 0.083 % NEBU SOLN one vial per nebulizer every 4 hours as needed Dx. J44.1 ALBUTEROL SULFATE 23488614301 Active Austin Albarado MD Active IPRATROPIUM BROMIDE 0.02 % INH SOLN 1 q 6 hr PRN Dx: J44.1 IPRATROPIUM BROMIDE 67260432402 Active Nella José LPN Active PROAIR HFA 108 (90 BASE) MCG/ACT AERS take 1-2 puffs q 4-6 hrs prn cough/ SOB ALBUTEROL SULFATE 47480461844 Active Nella José LPN Active IPRATROPIUM-ALBUTEROL 0.5-2.5 (3) MG/3ML SOLN 1 VIAL NEB Q 4-6 HRS PRN 04/18 IPRATROPIUM-ALBUTEROL 69933809070 No Longer Active Austin Albarado MD Active ATIVAN 0.5 MG TAB 1 po QD PRN Anxiety LORAZEPAM 11256027293 Active Austin Albarado MD Active PREDNISONE 20 MG ORAL TABS 3 tabs po for 3 days than,2 tabs po for 3 days,1 tab po for 3 days, 1/2 tab po for 3 days. PREDNISONE 98803290155 No Longer Active Simona Galloway APRN Active LEVAQUIN 500 MG TAB 1 tablet by mouth daily LEVOFLOXACIN 41683327949 No Longer Active Simona Galloway APRN Active PREDNISONE 20 MG TAB take 3 tabs daily for 3 days, 2 tabs daily for 3 days, 1 tab daily for 3 days, 1/2 tab daily for 3 days PREDNISONE 04023143098 No Longer Active Austin Albarado MD Active LEVAQUIN 500 MG TAB 1 tablet by mouth daily LEVOFLOXACIN 04575981782 No Longer Active Madhavi Fiore Active FUROSEMIDE 20 MG TABS take 1 tab po BID for swelling FUROSEMIDE 33656173139 Active Austin Albarado MD Active AMOXICILLIN 500 MG ORAL TABS Take one by mouth 3 times daily, morning, afternoon and evening.] AMOXICILLIN 32977574420 No Longer Active Garcia Stroud MD Active PREDNISONE 20 MG ORAL TABS 3 daily for 3 days than, 2 tabs daily for 3 days than, 2 tabs daily for 3 days than, 1 tab daily for 3 days than 1/2 tab daily for 3 days. PREDNISONE 59528130026 No Longer Active Tracie Arrington APRN Active FLUTICASONE PROPIONATE 50 MCG/ACT SUSP 1 to 2 sprays each nostril daily 08/21 FLUTICASONE PROPIONATE 66096992577 Active Austin Albarado MD Active PREDNISONE 10 MG TAB take 1 tab po qday for severe COPD PREDNISONE 47127324357 Active Austin Albarado MD Active PREDNISONE 20 MG ORAL TABS 3 TABS PO FOR 3 DAYS,THAN 2 TABS FOR 3 DAYS THAN, 1 TAB FOR 3 DAYS THAN, 1/2 TAB FOR 3 DAYS. PREDNISONE 51470903736 No Longer Active Austin Albarado MD Active LEVAQUIN 500 MG TAB 1 tablet by mouth daily for 10 days. LEVOFLOXACIN 74381704744 No Longer Active Austin Albarado MD Active PREDNISONE 20 MG TAB take 3 tabs daily for 3 days, 2 tabs daily for 3 days, 1 tab daily for 3 days, 1/2 tab daily for 3 days PREDNISONE 58462929359 No Longer Active Simona Galloway APRN Active ZITHROMAX 1 GM ORAL PACK DIRECTED AZITHROMYCIN 95598923166 No Longer Active Simona Galloway APRN Active PREDNISONE 20 MG TAB 2 tabs daily for 4 days, 1 tab daily for 4 days, 1/2 tab daily for 4 days PREDNISONE 49839581218 No Longer Active Austin Albarado MD Active LEVAQUIN 500 MG TAB 1 tablet by mouth daily LEVOFLOXACIN 72151325439 No Longer Active Austin Albarado MD Active PREDNISONE 20 MG TAB take 3 tabs daily for 3 days, 2 tabs daily for 3 days, 1 tab daily for 3 days, 1/2 tab daily for 3 days PREDNISONE 38009101987 No Longer Active Austin Albarado MD Active DOXYCYCLINE HYCLATE 100 MG CAP 1 cap by mouth twice daily DOXYCYCLINE HYCLATE 20626034488 No Longer Active 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 [employer]ESSIONAL Active ALBUTEROL SULFATE (2.5 MG/3ML) 0.083% NEBU nebulize 1 vial q 4-6 hours prn shortness of breath ALBUTEROL SULFATE 05061643839 No Longer Active 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 [employer]ESSIONAL Active TORSEMIDE 20 MG TABS 1 TAB PO BID TORSEMIDE 66972439689 No Longer Active 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 [employer]ESSIONAL Active PREDNISONE 20 MG TAB 2 tabs daily for 3 days, 1 tab daily for 3 days, 1/2 tab daily for 2 days PREDNISONE 84175425937 No Longer Active Austin Albarado MD Active LEVOFLOXACIN 500 MG ORAL TABS take 1 tab po qday LEVOFLOXACIN 58127869050 No Longer Active Austin Albarado MD Active PREDNISONE 20 MG TAB 2 tablets today, then 1 tablet by mouth days 2-5 PREDNISONE 75760105077 No Longer Active Austin Albarado MD Active AZITHROMYCIN 500 MG SOLR 1 po q day AZITHROMYCIN 90743890926 No Longer Active Austin Albarado MD Active KEFLEX 500 MG CAP 1 po TID x 7 days CEPHALEXIN 32804588661 No Longer Active Tristan Vaughn MD Active EQL VISION FORMULA TABS 1 TAB PO DAILY MULTIPLE VITAMINS-MINERALS 09071377418 No Longer Active Tristan Vaughn MD Active CHANTIX STARTING MONTH ELVIS 0.5 MG X 11 & 1 MG X 42 TABS 0.5mg daily for 3 days , then 0.5mg BID for 4 days, then 1mg BID VARENICLINE TARTRATE 86165754426 No Longer Active Tristan Vaughn MD Active LEVOTHYROXINE SODIUM 200 MCG TABS 1 TAB PO DAILY LEVOTHYROXINE SODIUM 23515401435 No Longer Active Tristan Vaughn MD Active LIOTHYRONINE SODIUM 50 MCG TABS take 1 tab po qday for hypothyroidism LIOTHYRONINE SODIUM 24942040731 No Longer Active Austin Albarado MD Active SYNTHROID 0.025 MG TAB 1 tablet by mouth daily LEVOTHYROXINE SODIUM 15677746607 No Longer Active Austin Albarado MD Active ARMOUR THYROID 120 MG TABS take 1 tab po qday for hypothyroidism THYROID 41508877084 Active Austin Albarado MD Active FLONASE 50 MCG/ACT SUSP 1 spray each nostril am and hs FLUTICASONE PROPIONATE Active Simona Galloway APRN Active ZITHROMAX 1 GM PACK DIRECTED AZITHROMYCIN 82279365164 No Longer Active Austin Albarado MD Active PREDNISONE 20 MG TAB 2 tabs daily for 3 days, 1 tab daily for 3 days, 1/2 tab daily for 2 days PREDNISONE 68664543257 No Longer Active Austin Albarado MD Active ZITHROMAX 250 MG TAB 2 po today, then 1 po q days 2-5 AZITHROMYCIN 71326322177 No Longer Active Austin Albarado MD Active NYSTATIN-TRIAMCINOLONE 483933-9.1 UNIT/GM-% OINT Apply to affected area TID NYSTATIN-TRIAMCINOLONE 47312887788 Active Austin Albarado MD Active ADVAIR DISKUS 500-50 MCG/DOSE AEPB ONE INH BID FLUTICASONE- SALMETEROL 41494443543 Active Austin Albarado MD Active ZITHROMAX 1 GM PACK DIRECTED ZITHROMAX 1 GM PACK 559907 AZITHROMYCIN Inactive SYNTHROID 0.025 MG TAB 1 tablet by mouth daily SYNTHROID 0.025 MG TAB 549159 LEVOTHYROXINE SODIUM Inactive LIOTHYRONINE SODIUM 50 MCG TABS take 1 tab po qday for hypothyroidism LIOTHYRONINE SODIUM 50 MCG TABS 914785 LIOTHYRONINE SODIUM Inactive LEVOTHYROXINE SODIUM 200 MCG TABS 1 TAB PO DAILY LEVOTHYROXINE SODIUM 200 MCG TABS 613221 LEVOTHYROXINE SODIUM Inactive CHANTIX STARTING MONTH ELVIS [...] po q day AZITHROMYCIN 500 MG SOLR 27555592258 AZITHROMYCIN Inactive PREDNISONE 20 MG TAB 2 tablets today, then 1 tablet by mouth days 2-5 PREDNISONE 20 MG TAB 141785 PREDNISONE Inactive TORSEMIDE 20 MG TABS 1 TAB PO BID TORSEMIDE 20 MG TABS 164383 TORSEMIDE Inactive ALBUTEROL SULFATE (2.5 MG/3ML) 0.083% NEBU nebulize 1 vial q 4-6 hours prn shortness of breath ALBUTEROL SULFATE (2.5 MG/3ML) 0.083% NEBU 927981 ALBUTEROL SULFATE Inactive LEVAQUIN 500 MG TAB 1 tablet by mouth daily LEVAQUIN 500 MG TAB 019480 LEVOFLOXACIN Inactive PREDNISONE 20 MG TAB 2 tabs daily for 4 days, 1 tab daily for 4 days, 1/2 tab daily for 4 days PREDNISONE 20 MG TAB 862242 PREDNISONE Inactive ZITHROMAX 1 GM ORAL PACK DIRECTED ZITHROMAX 1 GM ORAL PACK 480915 AZITHROMYCIN Inactive LEVAQUIN 500 MG TAB 1 tablet by mouth daily for 10 days. LEVAQUIN 500 MG TAB 549256 LEVOFLOXACIN Inactive PREDNISONE 20 MG ORAL TABS 3 TABS PO FOR 3 DAYS,THAN 2 TABS FOR 3 DAYS THAN, 1 TAB FOR 3 DAYS THAN, 1/2 TAB FOR 3 DAYS. PREDNISONE 20 MG ORAL TABS 523665 PREDNISONE Inactive PREDNISONE 20 MG ORAL TABS 3 daily for 3 days than, 2 tabs daily for 3 days than, 2 tabs daily for 3 days than, 1 tab daily for 3 days than 1/2 tab daily for 3 days. PREDNISONE 20 MG ORAL TABS 085733 PREDNISONE Inactive AMOXICILLIN 500 MG ORAL TABS Take one by mouth 3 times daily, morning, afternoon and evening.] AMOXICILLIN 500 MG ORAL TABS 987063 AMOXICILLIN Inactive LEVAQUIN 500 MG TAB 1 tablet by mouth daily LEVAQUIN 500 MG TAB 356838 LEVOFLOXACIN Inactive LEVAQUIN 500 MG TAB 1 tablet by mouth daily LEVAQUIN 500 MG TAB 847283 LEVOFLOXACIN Inactive PREDNISONE 20 MG ORAL TABS 3 tabs po for 3 days than,2 tabs po for 3 days,1 tab po for 3 days, 1/2 tab po for 3 days. PREDNISONE 20 MG ORAL TABS 497092 PREDNISONE Inactive ZITHROMAX 250 MG TAB 2 po today, then 1 po q days 2-5 ZITHROMAX 250 MG TAB 3608624 AZITHROMYCIN Inactive PREDNISONE 20 MG TAB 2 tabs daily for 3 days, 1 tab daily for 3 days, 1/2 tab daily for 2 days PREDNISONE 20 MG TAB 571608 PREDNISONE Inactive KEFLEX 500 MG CAP 1 po TID x 7 days KEFLEX 500 MG CAP 080431 CEPHALEXIN Inactive LEVOFLOXACIN 500 MG ORAL TABS take 1 tab po qday LEVOFLOXACIN 500 MG ORAL TABS 823029 LEVOFLOXACIN Inactive PREDNISONE 20 MG TAB 2 tabs daily for 3 days, 1 tab daily for 3 days, 1/2 tab daily for 2 days PREDNISONE 20 MG TAB 177640 PREDNISONE Inactive DOXYCYCLINE HYCLATE 100 MG CAP 1 cap by mouth twice daily DOXYCYCLINE HYCLATE 100 MG CAP 8944323 DOXYCYCLINE HYCLATE Inactive PREDNISONE 20 MG TAB take 3 tabs daily for 3 days, 2 tabs daily for 3 days, 1 tab daily for 3 days, 1/2 tab daily for 3 days PREDNISONE 20 MG TAB 493431 PREDNISONE Inactive PREDNISONE 20 MG TAB take 3 tabs daily for 3 days, 2 tabs daily for 3 days, 1 tab daily for 3 days, 1/2 tab daily for 3 days PREDNISONE 20 MG TAB 217234 PREDNISONE Inactive PREDNISONE 20 MG TAB take 3 tabs daily for 3 days, 2 tabs daily for 3 days, 1 tab daily for 3 days, 1/2 tab daily for 3 days PREDNISONE 20 MG TAB 661061 PREDNISONE Inactive ACYCLOVIR 400 MG TABS 1 pill three times daily ACYCLOVIR 400 MG TABS 433064 ACYCLOVIR Inactive ACYCLOVIR 400 MG TABS 1 pill three times daily ACYCLOVIR 400 MG TABS 116203 ACYCLOVIR Inactive KEFLEX 500 MG CAP 1 po BID x 7 days KEFLEX 500 MG CAP 198642 CEPHALEXIN Inactive KEFLEX 500 MG CAP 1 po BID x 7 days KEFLEX 500 MG CAP 899895 CEPHALEXIN Inactive Advance Directives Directive Description Start [...] pressure, diastolic - 8462-4 59 mm[Hg] BP fenrandes blood pressure, systolic - 8480-6 107 mm[Hg] [...] Peptide - Chemistry sodium, serum 140 mmol/L 763-641 9644/02/09 carbon dioxide, venous blood 39.2 mmol/L 21.0-32.0 [...] 0.00-1.00 Encounters Code Encounter Date Provider Facility CPT-99919 Level 3 Est. Patient 16:07:19 CDT Simona Galloway APRN [facility] CPT-59421 Level 4 Est. Patient 13:31:03 CDT Austin Albarado MD [facility] CPT-60658 Level 4 Est. Patient 17:54:41 FARE REGISTER REPAIRER Austin Albarado MD [facility] CPT-50007 Level 4 Est. Patient 16:11:14 FARE REGISTER REPAIRER Austin Albarado MD [facility] CPT-65317 Level 4 Est. Patient 23:08:56 CDT Austin Albarado MD [facility] CPT-76115 Level 4 Est. Patient 13:27:28 CDT Garcia Stroud MD [facility] CPT-70179 Level 4 Est. Patient 10:51:20 CDT Austin Albarado MD [facility]-53638 Level 4 Est. Patient 20:09:43 FARE REGISTER REPAIRER Austin Albarado MD [facility] CPT-10769 Level 4 Est. Patient 21:00:28 CDT Austin Albarado MD [facility] CPT-42173 Level 4 Est. Patient 10:03:37 CDT Austin Albarado MD [facility] CPT-23666 Level 3 Est. Patient 10:50:28 FARE REGISTER REPAIRER Austin Albarado MD [facility]-99240 Level 4 Est. Patient 21:31:41 FARE REGISTER REPAIRER Austin Albarado MD [facility] CPT-43330 Level 3 Est. Patient 16:22:54 FARE REGISTER REPAIRER Jann Law DO [facility] CPT-38998 Level 3 Est. Patient 11:04:53 FARE REGISTER REPAIRER Tristan Vaughn MD [facility] CPT-03319 Level 4 Est. Patient 09:50:59 CDT Austin Albarado MD [facility] CPT-98701 Level 4 Est. Patient 09:29:00 CDT Austin Albarado MD [facility]-22262 Level 4 Est. Patient 14:23:07 CDT Austin Albarado MD [facility] CPT-19394 Level 4 Est. Patient 14:27:26 CDT Austin Albarado MD [facility] CPT-69435 Level 4 Est. Patient 12:51:43 FARE REGISTER REPAIRER Austin Albarado MD [facility] CPT-69909 Level 3 New Patient 14:17:38 FARE REGISTER REPAIRER Austin Albarado MD [facility] CPT-76184 Level 3 New Patient 11:28:18 FARE REGISTER REPAIRER Austin Albarado MD [facility] Procedures Code Procedure Name Date Entry Date Standard Description CPT-G0439 Subsequent Annual Wellness Exam 08:13:24 CDT CPT-TCMM Transitional Care Mgmt-Moderate 14:53:36 FARE REGISTER REPAIRER CPT-35665 No Charge Offi Visit 10:19:33 FARE REGISTER REPAIRER CPT-02170 Chest 2V Frontal and Lat - XRAY USE ONLY 15:01:41 FARE REGISTER REPAIRER CPT-99137 First Vx - Ix admin for Medicare patients 16:00:49 CDT CPT-04725 Fluzone High-Dose Intramuscular Suspension 16:00:49 CDT CPT-G0009 Administration of Pneumococcal Vaccine 13:25:27 CDT CPT-01408 Prevnar 13 Intramuscular Suspension 13:25:27 CDT 09/26 CPT-G0438 Initial Annual Wellness Exam 11:28:26 CDT CPT-81593 Chest 2V Frontal and Lat 15:00:00 FARE REGISTER REPAIRER CPT-31053 Breathing Tx 14:49:25 FARE REGISTER REPAIRER CPT-75640 Fluzone High Dose 15:08:41 FARE REGISTER REPAIRER CPT-87127 Immunization Single Admin 15:08:41 FARE REGISTER REPAIRER CPT-77927 Fluzone High Dose 17:31:19 CDT CPT-07889 Administration single or combination vaccine inc oral 17 :31:19 CDT CPT-36215 Venipuncture Draw Fee 11:03:05 CDT CPT-TCMM Transitional Care Mgmt-Moderate 16:32:35 CDT CPT-54058 Chest 2V Frontal and Lat 11:51:09 CDT CPT-G0008 Administration of Influenza Virus Vaccine 15:09:08 CDT CPT-24295 Fluzone High-Dose Intramuscular Suspension 15:09:08 CDT CPT-85217 Administration single or combination vaccine inc oral 17 :07:02 FARE REGISTER REPAIRER CPT-11085 Influenza High Dose age 65+ 17:07:02 FARE REGISTER REPAIRER
--- OUTSIDE RECORDS SUMMARY | 2017-02-27 22:53 | XMS REPORT | Clinical Summary ---
Author Author Admin, DILLONE Organization [employer] Address Unknown Phone Unavailable Allergies, Adverse Reactions, [...] Coronary atherosclerosis of unspecified type of vessel, beaver or graft Peripheral edema 782.3 Active Austin Albarado MD Edema Shortness of breath 786.05 Active Simona Galloway APRN Shortness of breath U R I ICD-465.9 Inactive Austin Albarado MD 06/13 Bronchitis-Acute ICD-466.0 Inactive Austin Albarado MD Medication List Medication Instructions Start Date Stop Date Generic Name NDC Status Provider Patient Instruction PREDNISONE 20 MG ORAL TABS 3 tabs po for 3 days than,2 tabs po for 3 days,1 tab po for 3 days, 1/2 tab po for 3 days. PREDNISONE 78024969323 No Longer Active Simona Galloway APRN Active LEVAQUIN 500 MG TAB 1 tablet by mouth daily LEVOFLOXACIN 20460457248 No Longer Active Simona Galloway APRN Active PREDNISONE 20 MG TAB take 3 tabs daily for 3 days, 2 tabs daily for 3 days, 1 tab daily for 3 days, 1/2 tab daily for 3 days PREDNISONE 73472973545 No Longer Active Austin Albarado MD Active LEVAQUIN 500 MG TAB 1 tablet by mouth daily LEVOFLOXACIN 28946927828 No Longer Active Madhavi Fiore Active FUROSEMIDE 20 MG TABS take 1 tab po BID for swelling FUROSEMIDE 40049587731 Active Austin Albarado MD Active AMOXICILLIN 500 MG ORAL TABS Take one by mouth 3 times daily, morning, afternoon and evening.] AMOXICILLIN 62742844986 No Longer Active Garcia Stroud MD Active PREDNISONE 20 MG ORAL TABS 3 daily for 3 days than, 2 tabs daily for 3 days than, 2 tabs daily for 3 days than, 1 tab daily for 3 days than 1/2 tab daily for 3 days. PREDNISONE 77260373169 No Longer Active Tracie Arrington APRN Active FLUTICASONE PROPIONATE 50 MCG/ACT SUSP 1 to 2 sprays each nostril daily 08/21 FLUTICASONE PROPIONATE 68338588226 Active Simona Galloway APRN Active PREDNISONE 10 MG TAB take 1 tab po qday for severe COPD PREDNISONE 62407431422 Active Austin Albarado MD Active PREDNISONE 20 MG ORAL TABS 3 TABS PO FOR 3 DAYS,THAN 2 TABS FOR 3 DAYS THAN, 1 TAB FOR 3 DAYS THAN, 1/2 TAB FOR 3 DAYS. PREDNISONE 42807405707 No Longer Active Austin Albarado MD Active LEVAQUIN 500 MG TAB 1 tablet by mouth daily for 10 days. LEVOFLOXACIN 82734051735 No Longer Active Austin Albarado MD Active PREDNISONE 20 MG TAB take 3 tabs daily for 3 days, 2 tabs daily for 3 days, 1 tab daily for 3 days, 1/2 tab daily for 3 days PREDNISONE 85513101327 No Longer Active Simona Galloway APRN Active ZITHROMAX 1 GM ORAL PACK DIRECTED AZITHROMYCIN 60351542812 No Longer Active Simona Galloway APRN Active PREDNISONE 20 MG TAB 2 tabs daily for 4 days, 1 tab daily for 4 days, 1/2 tab daily for 4 days PREDNISONE 73022754903 No Longer Active Austin Albarado MD Active LEVAQUIN 500 MG TAB 1 tablet by mouth daily LEVOFLOXACIN 16870840058 No Longer Active Austin Albarado MD Active PREDNISONE 20 MG TAB take 3 tabs daily for 3 days, 2 tabs daily for 3 days, 1 tab daily for 3 days, 1/2 tab daily for 3 days PREDNISONE 07150615689 No Longer Active Austin Albarado MD Active DOXYCYCLINE HYCLATE 100 MG CAP 1 cap by mouth twice daily DOXYCYCLINE HYCLATE 19629396999 No Longer Active 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 SAFETY TEACHER Active ALBUTEROL SULFATE (2.5 MG/3ML) 0.083% NEBU nebulize 1 vial q 4-6 hours prn shortness of breath ALBUTEROL SULFATE 95141079780 No Longer Active 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 SAFETY TEACHER Active TORSEMIDE 20 MG TABS 1 TAB PO BID TORSEMIDE 34771796879 No Longer Active 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 SAFETY TEACHER Active PREDNISONE 20 MG TAB 2 tabs daily for 3 days, 1 tab daily for 3 days, 1/2 tab daily for 2 days PREDNISONE 86166969942 No Longer Active Austin Albarado MD Active LEVOFLOXACIN 500 MG ORAL TABS take 1 tab po qday LEVOFLOXACIN 52537195303 No Longer Active Austin Albarado MD Active PREDNISONE 20 MG TAB 2 tablets today, then 1 tablet by mouth days 2-5 PREDNISONE 42202385577 No Longer Active Austin Albarado MD Active AZITHROMYCIN 500 MG SOLR 1 po q day AZITHROMYCIN 75583156132 No Longer Active Austin Albarado MD Active KEFLEX 500 MG CAP 1 po TID x 7 days CEPHALEXIN 41301208271 No Longer Active Tristan Vaughn MD Active EQL VISION FORMULA TABS 1 TAB PO DAILY MULTIPLE VITAMINS-MINERALS 61862441470 No Longer Active Tristan Vaughn MD Active CHANTIX STARTING MONTH ELVIS 0.5 MG X 11 & 1 MG X 42 TABS 0.5mg daily for 3 days , then 0.5mg BID for 4 days, then 1mg BID VARENICLINE TARTRATE 46761801607 No Longer Active Tristan Vaughn MD Active LEVOTHYROXINE SODIUM 200 MCG TABS 1 TAB PO DAILY LEVOTHYROXINE SODIUM 76019197199 No Longer Active Tristan Vaughn MD Active LIOTHYRONINE SODIUM 50 MCG TABS take 1 tab po qday for hypothyroidism LIOTHYRONINE SODIUM 00027413091 No Longer Active Austin Albarado MD Active SYNTHROID 0.025 MG TAB 1 tablet by mouth daily LEVOTHYROXINE SODIUM 08653678173 No Longer Active Austin Albarado MD Active ARMOUR THYROID 120 MG TABS take 1 tab po qday for hypothyroidism THYROID 69856834052 Active Austin Albarado MD Active FLONASE 50 MCG/ACT SUSP 1 spray each nostril am and hs FLUTICASONE PROPIONATE Active Simona Galloway APRN Active ZITHROMAX 1 GM PACK DIRECTED AZITHROMYCIN 37897240184 No Longer Active Austin Albarado MD Active PREDNISONE 20 MG TAB 2 tabs daily for 3 days, 1 tab daily for 3 days, 1/2 tab daily for 2 days PREDNISONE 64423215644 No Longer Active Austin Albarado MD Active ZITHROMAX 250 MG TAB 2 po today, then 1 po q days 2-5 AZITHROMYCIN 81120477466 No Longer Active Austin Albarado MD Active NYSTATIN-TRIAMCINOLONE 613971-8.1 UNIT/GM-% OINT Apply to affected area TID NYSTATIN-TRIAMCINOLONE 22093061477 Active Austin Albarado MD Active IPRATROPIUM-ALBUTEROL 0.5-2.5 (3) MG/3ML SOLN 1 VIAL NEB Q 6 HRS PRN IPRATROPIUM-ALBUTEROL 68322988720 Active Simona Galloway APRN Active PROAIR HFA 108 (90 BASE) MCG/ACT AERS take 1-2 puffs q4hrs prn cough/ SOB ALBUTEROL SULFATE 64542279741 Active Austin Albarado MD Active ADVAIR DISKUS 500-50 MCG/DOSE AEPB ONE INH BID FLUTICASONE- SALMETEROL 01718991342 Active Austin Albarado MD Active ZITHROMAX 1 GM PACK DIRECTED ZITHROMAX 1 GM PACK 659953 AZITHROMYCIN Inactive SYNTHROID 0.025 MG TAB 1 tablet by mouth daily SYNTHROID 0.025 MG TAB 695727 LEVOTHYROXINE SODIUM Inactive LIOTHYRONINE SODIUM 50 MCG TABS take 1 tab po qday for hypothyroidism LIOTHYRONINE SODIUM 50 MCG TABS 641894 LIOTHYRONINE SODIUM Inactive LEVOTHYROXINE SODIUM 200 MCG TABS 1 TAB PO DAILY LEVOTHYROXINE SODIUM 200 MCG TABS 318149 LEVOTHYROXINE SODIUM Inactive CHANTIX STARTING MONTH ELVIS [...] po q day AZITHROMYCIN 500 MG SOLR 78124960438 AZITHROMYCIN Inactive PREDNISONE 20 MG TAB 2 tablets today, then 1 tablet by mouth days 2-5 PREDNISONE 20 MG TAB 600328 PREDNISONE Inactive TORSEMIDE 20 MG TABS 1 TAB PO BID TORSEMIDE 20 MG TABS 501472 TORSEMIDE Inactive ALBUTEROL SULFATE (2.5 MG/3ML) 0.083% NEBU nebulize 1 vial q 4-6 hours prn shortness of breath ALBUTEROL SULFATE (2.5 MG/3ML) 0.083% NEBU 075759 ALBUTEROL SULFATE Inactive LEVAQUIN 500 MG TAB 1 tablet by mouth daily LEVAQUIN 500 MG TAB 120717 LEVOFLOXACIN Inactive PREDNISONE 20 MG TAB 2 tabs daily for 4 days, 1 tab daily for 4 days, 1/2 tab daily for 4 days PREDNISONE 20 MG TAB 023596 PREDNISONE Inactive ZITHROMAX 1 GM ORAL PACK DIRECTED ZITHROMAX 1 GM ORAL PACK 599395 AZITHROMYCIN Inactive LEVAQUIN 500 MG TAB 1 tablet by mouth daily for 10 days. LEVAQUIN 500 MG TAB 816585 LEVOFLOXACIN Inactive PREDNISONE 20 MG ORAL TABS 3 TABS PO FOR 3 DAYS,THAN 2 TABS FOR 3 DAYS THAN, 1 TAB FOR 3 DAYS THAN, 1/2 TAB FOR 3 DAYS. PREDNISONE 20 MG ORAL TABS 435273 PREDNISONE Inactive PREDNISONE 20 MG ORAL TABS 3 daily for 3 days than, 2 tabs daily for 3 days than, 2 tabs daily for 3 days than, 1 tab daily for 3 days than 1/2 tab daily for 3 days. PREDNISONE 20 MG ORAL TABS 354954 PREDNISONE Inactive AMOXICILLIN 500 MG ORAL TABS Take one by mouth 3 times daily, morning, afternoon and evening.] AMOXICILLIN 500 MG ORAL TABS 600294 AMOXICILLIN Inactive LEVAQUIN 500 MG TAB 1 tablet by mouth daily LEVAQUIN 500 MG TAB 225561 LEVOFLOXACIN Inactive LEVAQUIN 500 MG TAB 1 tablet by mouth daily LEVAQUIN 500 MG TAB 502297 LEVOFLOXACIN Inactive PREDNISONE 20 MG ORAL TABS 3 tabs po for 3 days than,2 tabs po for 3 days,1 tab po for 3 days, 1/2 tab po for 3 days. PREDNISONE 20 MG ORAL TABS 480161 PREDNISONE Inactive ZITHROMAX 250 MG TAB 2 po today, then 1 po q days 2-5 ZITHROMAX 250 MG TAB 6418290 AZITHROMYCIN Inactive PREDNISONE 20 MG TAB 2 tabs daily for 3 days, 1 tab daily for 3 days, 1/2 tab daily for 2 days PREDNISONE 20 MG TAB 832998 PREDNISONE Inactive KEFLEX 500 MG CAP 1 po TID x 7 days KEFLEX 500 MG CAP 106918 CEPHALEXIN Inactive LEVOFLOXACIN 500 MG ORAL TABS take 1 tab po qday LEVOFLOXACIN 500 MG ORAL TABS 670837 LEVOFLOXACIN Inactive PREDNISONE 20 MG TAB 2 tabs daily for 3 days, 1 tab daily for 3 days, 1/2 tab daily for 2 days PREDNISONE 20 MG TAB 542815 PREDNISONE Inactive DOXYCYCLINE HYCLATE 100 MG CAP 1 cap by mouth twice daily DOXYCYCLINE HYCLATE 100 MG CAP 2424983 DOXYCYCLINE HYCLATE Inactive PREDNISONE 20 MG TAB take 3 tabs daily for 3 days, 2 tabs daily for 3 days, 1 tab daily for 3 days, 1/2 tab daily for 3 days PREDNISONE 20 MG TAB 847641 PREDNISONE Inactive PREDNISONE 20 MG TAB take 3 tabs daily for 3 days, 2 tabs daily for 3 days, 1 tab daily for 3 days, 1/2 tab daily for 3 days PREDNISONE 20 MG TAB 261192 PREDNISONE Inactive PREDNISONE 20 MG TAB take 3 tabs daily for 3 days, 2 tabs daily for 3 days, 1 tab daily for 3 days, 1/2 tab daily for 3 days PREDNISONE 20 MG TAB 163270 PREDNISONE Inactive Advance Directives Directive Description Start [...] 43.52 m[iU]/mL 0.36-3.74 sodium, serum 140 mmol/L 204-727 9406/04/06 carbon dioxide, venous blood 36.3 mmol/L 21.0-32.0 potassium, serum 4.9 mmol/L 3.5-5.2 chloride, serum 100 mmol/L 98-107 blood glucose 62 mg/dL 65-110 urea nitrogen, blood 24 mg/dL 7-18 creatinine, serum 1.09 mg/dL 0.55-1.30 alanine aminotransferase (SGPT), serum 44 U/L 12-78 aspartate aminotransferase (SGOT), serum 25 U/L 15-37 calcium, serum 8.7 mg/dL 8.5-10.1 bilirubin, serum, total 0.50 mg/dL 0.00-1.00 cholesterol, serum 189 mg/dL 397-991 0956/04/06 triglyceride, serum, fasting 117 mg/dL 30-200 HDL [...] 142-424 Encounters Code Encounter Date Provider Facility CPT-11594 Level 4 Est. Patient 17:54:41 PALLET RECTIFIER Austin Albarado MD [facility]-96335 Level 4 Est. Patient 16:11:14 PALLET RECTIFIER Austin Albarado MD [facility]-56141 Level 4 Est. Patient 23:08:56 CDT Austin Albarado MD [facility]-44270 Level 4 Est. Patient 13:27:28 CDT Garcia Stroud MD [facility]-06594 Level 4 Est. Patient 10:51:20 CDT Austin Albarado MD [facility]-67370 Level 4 Est. Patient 20:09:43 PALLET RECTIFIER Austin Albarado MD [facility]-72507 Level 4 Est. Patient 21:00:28 CDT Austin Albarado MD [facility] CPT-11292 Level 4 Est. Patient 10:03:37 CDT Austin Albarado MD [facility] CPT-15717 Level 3 Est. Patient 10:50:28 PALLET RE[employer]IFIER Austin Albarado MD [facility] CPT-98922 Level 4 Est. Patient 21:31:41 PALLET RECTIFIER Austin Albarado MD [facility] CPT-08679 Level 3 Est. Patient 16:22:54 PALLET RE[employer]IFIER Jann Law DO [facility] CPT-76721 Level 3 Est. Patient 11:04:53 PALLET RE[employer]IFIER Tristan Vaughn MD [facility] CPT-87726 Level 4 Est. Patient 09:50:59 CDT Austin Albarado MD [facility]-62498 Level 4 Est. Patient 09:29:00 CDT Austin Albarado MD [facility] CPT-68662 Level 4 Est. Patient 14:23:07 CDT Austin Albarado MD [facility] CPT-82103 Level 4 Est. Patient 14:27:26 CDT Austin Albarado MD [facility] CPT-81114 Level 4 Est. Patient 12:51:43 PALLET RECTIFIER Austin Albarado MD [facility] CPT-07969 Level 3 New Patient 14:17:38 PALLET RECTIFIER Austin Albarado MD [facility] CPT-09277 Level 3 New Patient 11:28:18 PALLET RE[employer]IFIER Austin Albarado MD [facility] Procedures Code Procedure Name Date Entry Date Standard Description CPT-08536 Chest 2V Frontal and Lat - XRAY USE ONLY 15:01:41 PALLET RECTIFIER CPT-63989 First Vx - Ix admin for Medicare patients 16:00:49 CDT CPT-16687 Fluzone High-Dose Intramuscular Suspension 16:00:49 CDT CPT-G0009 Administration of Pneumococcal Vaccine 13:25:27 CDT CPT-80723 Prevnar 13 Intramuscular Suspension 13:25:27 CDT 09/26 CPT-G0438 Initial Annual Wellness Exam 11:28:26 CDT CPT-12341 Chest 2V Frontal and Lat 15:00:00 PALLET RECTIFIER CPT-17090 Breathing Tx 14:49:25 PALLET RECTIFIER CPT-91760 Fluzone High Dose 15:08:41 PALLET RE[employer]IFIER CPT-75329 Immunization Single Admin 15:08:41 PALLET RE[employer]IFIER CPT-03949 Fluzone High Dose 17:31:19 CDT CPT-79039 Administration single or combination vaccine inc oral 17 :31:19 CDT CPT-70394 Venipuncture Draw Fee 11:03:05 CDT CPT-TCMM Transitional Care Mgmt-Moderate 16:32:35 CDT CPT-52556 Chest 2V Frontal and Lat 11:51:09 CDT CPT-G0008 Administration of Influenza Virus Vaccine 15:09:08 CDT CPT-75882 Fluzone High-Dose Intramuscular Suspension 15:09:08 CDT CPT-18039 Administration single or combination vaccine inc oral 17 :07:02 PALLET RECTIFIER CPT-92097 Influenza High Dose age 65+ 17:07:02 PALLET RECTIFIER
--- OUTSIDE RECORDS SUMMARY | 2017-02-27 22:54 | XMS REPORT | Clinical Summary ---
Author Author Admin, LEE Organization [facility] Address Unknown Phone Unavailable Allergies, Adverse Reactions, [...] THAN, 1/2 TAB FOR 3 DAYS. PREDNISONE 25171433495 No Longer Active Austin Albarado MD Active LEVAQUIN 500 MG TAB 1 tablet by mouth daily for 10 days. LEVOFLOXACIN 61853386039 No Longer Active Austin Albarado MD Active PREDNISONE 20 MG TAB take 3 tabs daily for 3 days, 2 tabs daily for 3 days, 1 tab daily for 3 days, 1/2 tab daily for 3 days PREDNISONE 65436904105 No Longer Active Simona Galloway APRN Active ZITHROMAX 1 GM ORAL PACK DIRECTED AZITHROMYCIN 69126688174 No Longer Active Simona Galloway APRN Active PREDNISONE 20 MG TAB 2 tabs daily for 4 days, 1 tab daily for 4 days, 1/2 tab daily for 4 days PREDNISONE 47008958949 No Longer Active Austin Albarado MD Active LEVAQUIN 500 MG TAB 1 tablet by mouth daily LEVOFLOXACIN 24171371591 No Longer Active Austin Albarado MD Active PREDNISONE 20 MG TAB take 3 tabs daily for 3 days, 2 tabs daily for 3 days, 1 tab daily for 3 days, 1/2 tab daily for 3 days PREDNISONE 92211222752 No Longer Active Austin Albarado MD Active DOXYCYCLINE HYCLATE 100 MG CAP 1 cap by mouth twice daily DOXYCYCLINE HYCLATE 57458869620 No Longer Active Joshllaftab Modi APRN Active ALBUTEROL SULFATE (2.5 MG/3ML) 0.083% NEBU nebulize 1 vial q 4-6 hours prn shortness of breath ALBUTEROL SULFATE 03455593851 No Longer Active Jillina Ly BOWEN Active TORSEMIDE 20 MG TABS 1 TAB PO BID TORSEMIDE 12796480466 No Longer Active Jillina Fraganga BOWEN Active PREDNISONE 20 MG TAB 2 tabs daily for 3 days, 1 tab daily for 3 days, 1/2 tab daily for 2 days PREDNISONE 66683473650 No Longer Active Austin Albarado MD Active LEVOFLOXACIN 500 MG ORAL TABS take 1 tab po qday LEVOFLOXACIN 72397995314 No Longer Active Austin Albarado MD Active PREDNISONE 20 MG TAB 2 tablets today, then 1 tablet by mouth days 2-5 PREDNISONE 36618950321 No Longer Active Austin Albarado MD Active AZITHROMYCIN 500 MG SOLR 1 po q day AZITHROMYCIN 20516570760 No Longer Active Austin Albarado MD Active KEFLEX 500 MG CAP 1 po TID x 7 days CEPHALEXIN 29240417258 No Longer Active Tristan Vaughn MD Active EQL VISION FORMULA TABS 1 TAB PO DAILY MULTIPLE VITAMINS-MINERALS 44060302798 No Longer Active Tristan Vaughn MD Active CHANTIX STARTING MONTH ELVIS 0.5 MG X 11 & 1 MG X 42 TABS 0.5mg daily for 3 days , then 0.5mg BID for 4 days, then 1mg BID VARENICLINE TARTRATE 56438842082 No Longer Active Tristan Vaughn MD Active LEVOTHYROXINE SODIUM 200 MCG TABS 1 TAB PO DAILY LEVOTHYROXINE SODIUM 10148864145 No Longer Active Tristan Vaughn MD Active LIOTHYRONINE SODIUM 50 MCG TABS take 1 tab po qday for hypothyroidism LIOTHYRONINE SODIUM 41655988214 No Longer Active Austin Albarado MD Active SYNTHROID 0.025 MG TAB 1 tablet by mouth daily LEVOTHYROXINE SODIUM 52093024271 No Longer Active Austin Albarado MD Active ARMOUR THYROID 120 MG TABS take 1 tab po qday for hypothyroidism THYROID 35917569156 Active Austin Albarado MD Active FLONASE 50 MCG/ACT SUSP 1 spray each nostril am and hs FLUTICASONE PROPIONATE 99299794785 Active Austni Albarado MD Active ZITHROMAX 1 GM PACK DIRECTED AZITHROMYCIN 35136266345 No Longer Active Austin Albarado MD Active PREDNISONE 20 MG TAB 2 tabs daily for 3 days, 1 tab daily for 3 days, 1/2 tab daily for 2 days PREDNISONE 41906603343 No Longer Active Austin Albarado MD Active ZITHROMAX 250 MG TAB 2 po today, then 1 po q days 2-5 AZITHROMYCIN 02925954735 No Longer Active Austin Albarado MD Active NYSTATIN-TRIAMCINOLONE 958954-4.1 UNIT/GM-% OINT Apply to affected area TID NYSTATIN-TRIAMCINOLONE 28259826091 Active Austin Albarado MD Active IPRATROPIUM-ALBUTEROL 0.5-2.5 (3) MG/3ML SOLN 1 VIAL NEB Q 6 HRS PRN IPRATROPIUM-ALBUTEROL 30269764657 Active Austin Albarado MD Active PROAIR HFA 108 (90 BASE) MCG/ACT AERS take 1-2 puffs q4hrs prn cough/ SOB ALBUTEROL SULFATE 64739418266 Active Austin Albarado MD Active ADVAIR DISKUS 500-50 MCG/DOSE AEPB ONE INH BID FLUTICASONE- SALMETEROL 12595867190 Active Austin Albarado MD Active ZITHROMAX 1 GM PACK DIRECTED ZITHROMAX 1 GM PACK 097123 AZITHROMYCIN Inactive SYNTHROID 0.025 MG TAB 1 tablet by mouth daily SYNTHROID 0.025 MG TAB 826627 LEVOTHYROXINE SODIUM Inactive LIOTHYRONINE SODIUM 50 MCG TABS take 1 tab po qday for hypothyroidism LIOTHYRONINE SODIUM 50 MCG TABS 917087 LIOTHYRONINE SODIUM Inactive LEVOTHYROXINE SODIUM 200 MCG TABS 1 TAB PO DAILY LEVOTHYROXINE SODIUM 200 MCG TABS 635694 LEVOTHYROXINE SODIUM Inactive CHANTIX STARTING MONTH ELVIS [...] po q day AZITHROMYCIN 500 MG SOLR 55787674757 AZITHROMYCIN Inactive PREDNISONE 20 MG TAB 2 tablets today, then 1 tablet by mouth days 2-5 PREDNISONE 20 MG TAB 797890 PREDNISONE Inactive TORSEMIDE 20 MG TABS 1 TAB PO BID TORSEMIDE 20 MG TABS 425968 TORSEMIDE Inactive ALBUTEROL SULFATE (2.5 MG/3ML) 0.083% NEBU nebulize 1 vial q 4-6 hours prn shortness of breath ALBUTEROL SULFATE (2.5 MG/3ML) 0.083% NEBU 139314 ALBUTEROL SULFATE Inactive LEVAQUIN 500 MG TAB 1 tablet by mouth daily LEVAQUIN 500 MG TAB 417041 LEVOFLOXACIN Inactive PREDNISONE 20 MG TAB 2 tabs daily for 4 days, 1 tab daily for 4 days, 1/2 tab daily for 4 days PREDNISONE 20 MG TAB 476631 PREDNISONE Inactive ZITHROMAX 1 GM ORAL PACK DIRECTED ZITHROMAX 1 GM ORAL PACK 504047 AZITHROMYCIN Inactive LEVAQUIN 500 MG TAB 1 tablet by mouth daily for 10 days. LEVAQUIN 500 MG TAB 251268 LEVOFLOXACIN Inactive PREDNISONE 20 MG ORAL TABS 3 TABS PO FOR 3 DAYS,THAN 2 TABS FOR 3 DAYS THAN, 1 TAB FOR 3 DAYS THAN, 1/2 TAB FOR 3 DAYS. PREDNISONE 20 MG ORAL TABS 935588 PREDNISONE Inactive ZITHROMAX 250 MG TAB 2 po today, then 1 po q days 2-5 ZITHROMAX 250 MG TAB 7646946 AZITHROMYCIN Inactive PREDNISONE 20 MG TAB 2 tabs daily for 3 days, 1 tab daily for 3 days, 1/2 tab daily for 2 days PREDNISONE 20 MG TAB 563528 PREDNISONE Inactive KEFLEX 500 MG CAP 1 po TID x 7 days KEFLEX 500 MG CAP 344644 CEPHALEXIN Inactive LEVOFLOXACIN 500 MG ORAL TABS take 1 tab po qday LEVOFLOXACIN 500 MG ORAL TABS 445533 LEVOFLOXACIN Inactive PREDNISONE 20 MG TAB 2 tabs daily for 3 days, 1 tab daily for 3 days, 1/2 tab daily for 2 days PREDNISONE 20 MG TAB 234718 PREDNISONE Inactive DOXYCYCLINE HYCLATE 100 MG CAP 1 cap by mouth twice daily DOXYCYCLINE HYCLATE 100 MG CAP 1480126 DOXYCYCLINE HYCLATE Inactive PREDNISONE 20 MG TAB take 3 tabs daily for 3 days, 2 tabs daily for 3 days, 1 tab daily for 3 days, 1/2 tab daily for 3 days PREDNISONE 20 MG TAB 727764 PREDNISONE Inactive PREDNISONE 20 MG TAB take 3 tabs daily for 3 days, 2 tabs daily for 3 days, 1 tab daily for 3 days, 1/2 tab daily for 3 days PREDNISONE 20 MG TAB 869818 PREDNISONE Inactive Advance Directives Directive Description Start [...] ... - Chemistry sodium, serum 140 mmol/L 650-001 7367/03/09 potassium, serum 4.9 mmol/L 3.5-5.2 chloride, serum [...] ... - Chemistry cholesterol, serum 136 mg/dL 402-420 1332/10/06 triglyceride, serum, fasting 30 mg/dL 30-200 HDL cholesterol, serum 57 mg/dL 32-96 LDL cholesterol, serum 73 mg/dL 0-130 prostate specific antigen 1.45 ng/mL 0.00-4.00 thyroxine, serum, free 0.80 ng/dL 0.76-1.46 TSH 14.03 m[iU]/mL 0.36-3.74 Encounters Code Encounter Date Provider Facility CPT-66165 Level 4 Est. Patient 20:09:43 SLIVER LAP [employer]ER Austin Albarado MD [facility] CPT-04924 Level 4 Est. Patient 21:00:28 CDT Austin Albarado MD [facility] CPT-71522 Level 4 Est. Patient 10:03:37 CDT Austin Albarado MD [facility] CPT-62977 Level 3 Est. Patient 10:50:28 [employer]IVER [employer] Austin Albarado MD [facility] CPT-17110 Level 4 Est. Patient 21:31:41 [employer] Austin Albarado MD [facility] CPT-63558 Level 3 Est. Patient 16:22:54 [employer] Jann Law DO [facility] CPT-29181 Level 3 Est. Patient 11:04:53 [employer]IVER [employer] Tristan Vaughn MD [facility] CPT-39240 Level 4 Est. Patient 09:50:59 CDT Austin Albarado MD [facility] CPT-89980 Level 4 Est. Patient 09:29:00 CDT Austin Albarado MD [facility] CPT-90471 Level 4 Est. Patient 14:23:07 CDT Austin Albarado MD [facility] CPT-50404 Level 4 Est. Patient 14:27:26 CDT Austin Albarado MD [facility] CPT-10017 Level 4 Est. Patient 12:51:43 [employer] Austin Albarado MD [facility] CPT-72841 Level 3 New Patient 14:17:38 [employer] Austin Albarado MD [facility] CPT-58811 Level 3 New Patient 11:28:18 [employer] Austin Albarado MD [facility] Procedures Code Procedure Name Date Entry Date Standard Description CPT-25032 Chest 2V Frontal and Lat 15:00:00 [employer]IVER LAP [employer] CPT-77910 Breathing Tx 14:49:25 [employer] CPT-30703 Fluzone High Dose 15:08:41 [employer] CPT-58292 Immunization Single Admin 15:08:41 [employer]IVER [employer] CPT-30091 Fluzone High Dose 17:31:19 CDT CPT-47516 Administration single or combination vaccine inc oral 17 :31:19 CDT CPT-51006 Venipuncture Draw Fee 11:03:05 CDT CPT-TCMM Transitional Care Mgmt-Moderate 16:32:35 CDT CPT-79718 Chest 2V Frontal and Lat 11:51:09 CDT CPT-G0008 Administration of Influenza Virus Vaccine 15:09:08 CDT CPT-80330 Fluzone High-Dose Intramuscular Suspension 15:09:08 CDT CPT-96467 Administration single or combination vaccine inc oral 17 :07:02 [employer]IVER LAP [employer] CPT-49593 Influenza High Dose age 65+ 17:07:02 [employer]IVER LAP [employer]ER
--- OUTSIDE RECORDS SUMMARY | 2017-02-27 22:54 | XMS REPORT | Clinical Summary ---
Author Author Admin, E Organization [employer] Address Unknown Phone Unavailable Allergies, Adverse Reactions, [...] type of vessel, [place] coos or graft Peripheral edema 782.3 Active Austin [...] Cellulitis and abscess of leg, except foot U R I ICD-465.9 Inactive Austin Albarado MD 06/13 Bronchitis-Acute ICD-466.0 Inactive Austin Albarado MD Medication List Medication Instructions Start Date Stop Date Generic Name NDC Status Provider Patient Instruction KEFLEX 500 MG CAP 1 po BID x 7 days CEPHALEXIN 73113786168 Active Mica Sneed Active KEFLEX 500 MG CAP 1 po BID x 7 days CEPHALEXIN 58031469807 No Longer Active Simona Galloway APRN Active ACYCLOVIR 400 MG TABS 1 pill three times daily ACYCLOVIR 31967112963 No Longer Active Austin Albarado MD Active ACYCLOVIR 400 MG TABS 1 pill three times daily ACYCLOVIR 50119650920 No Longer Active Austin Albarado MD Active ALBUTEROL SULFATE 0.083 % NEBU SOLN one vial per nebulizer every 4 hours as needed Dx. J44.1 ALBUTEROL SULFATE 46406974511 Active Austin Albarado MD Active IPRATROPIUM BROMIDE 0.02 % INH SOLN 1 q 6 hr PRN Dx: J44.1 IPRATROPIUM BROMIDE 46198911132 Active Nella José LPN Active PROAIR HFA 108 (90 BASE) MCG/ACT AERS take 1-2 puffs q 4-6 hrs prn cough/ SOB ALBUTEROL SULFATE 83746081838 Active Nella José LPN Active IPRATROPIUM-ALBUTEROL 0.5-2.5 (3) MG/3ML SOLN 1 VIAL NEB Q 4-6 HRS PRN 04/18 IPRATROPIUM-ALBUTEROL 67140858150 No Longer Active Austin Albarado MD Active ATIVAN 0.5 MG TAB 1 po QD PRN Anxiety LORAZEPAM 62991197851 Active Austin Albarado MD Active PREDNISONE 20 MG ORAL TABS 3 tabs po for 3 days than,2 tabs po for 3 days,1 tab po for 3 days, 1/2 tab po for 3 days. PREDNISONE 24090161525 No Longer Active Simona Galloway APRN Active LEVAQUIN 500 MG TAB 1 tablet by mouth daily LEVOFLOXACIN 96679261048 No Longer Active Simona Galloway APRN Active PREDNISONE 20 MG TAB take 3 tabs daily for 3 days, 2 tabs daily for 3 days, 1 tab daily for 3 days, 1/2 tab daily for 3 days PREDNISONE 01265227776 No Longer Active Austin Albarado MD Active LEVAQUIN 500 MG TAB 1 tablet by mouth daily LEVOFLOXACIN 07751030987 No Longer Active Madhavi Raida Active FUROSEMIDE 20 MG TABS take 1 tab po BID for swelling FUROSEMIDE 34210586008 Active Austin Albarado MD Active AMOXICILLIN 500 MG ORAL TABS Take one by mouth 3 times daily, morning, afternoon and evening.] AMOXICILLIN 00266774945 No Longer Active Garcia Stroud MD Active PREDNISONE 20 MG ORAL TABS 3 daily for 3 days than, 2 tabs daily for 3 days than, 2 tabs daily for 3 days than, 1 tab daily for 3 days than 1/2 tab daily for 3 days. PREDNISONE 31926858631 No Longer Active Tracie Arrington APRN Active FLUTICASONE PROPIONATE 50 MCG/ACT SUSP 1 to 2 sprays each nostril daily 08/21 FLUTICASONE PROPIONATE 53393236330 Active Simona Galloway APRN Active PREDNISONE 10 MG TAB take 1 tab po qday for severe COPD PREDNISONE 11489900059 Active Austin Albarado MD Active PREDNISONE 20 MG ORAL TABS 3 TABS PO FOR 3 DAYS,THAN 2 TABS FOR 3 DAYS THAN, 1 TAB FOR 3 DAYS THAN, 1/2 TAB FOR 3 DAYS. PREDNISONE 81478106174 No Longer Active Austin Albarado MD Active LEVAQUIN 500 MG TAB 1 tablet by mouth daily for 10 days. LEVOFLOXACIN 72204706773 No Longer Active Austin Albarado MD Active PREDNISONE 20 MG TAB take 3 tabs daily for 3 days, 2 tabs daily for 3 days, 1 tab daily for 3 days, 1/2 tab daily for 3 days PREDNISONE 23337278411 No Longer Active Simona Galloway APRN Active ZITHROMAX 1 GM ORAL PACK DIRECTED AZITHROMYCIN 17746423881 No Longer Active Simona Galloway APRN Active PREDNISONE 20 MG TAB 2 tabs daily for 4 days, 1 tab daily for 4 days, 1/2 tab daily for 4 days PREDNISONE 34853817576 No Longer Active Austin Albarado MD Active LEVAQUIN 500 MG TAB 1 tablet by mouth daily LEVOFLOXACIN 53280816327 No Longer Active Austin Albarado MD Active PREDNISONE 20 MG TAB take 3 tabs daily for 3 days, 2 tabs daily for 3 days, 1 tab daily for 3 days, 1/2 tab daily for 3 days PREDNISONE 58459263064 No Longer Active Austin Albarado MD Active DOXYCYCLINE HYCLATE 100 MG CAP 1 cap by mouth twice daily DOXYCYCLINE HYCLATE 80324759304 No Longer Active 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 [employer] Active ALBUTEROL SULFATE (2.5 MG/3ML) 0.083% NEBU nebulize 1 vial q 4-6 hours prn shortness of breath ALBUTEROL SULFATE 06552588927 No Longer Active 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 [employer] Active TORSEMIDE 20 MG TABS 1 TAB PO BID TORSEMIDE 29891997288 No Longer Active 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 [employer] Active PREDNISONE 20 MG TAB 2 tabs daily for 3 days, 1 tab daily for 3 days, 1/2 tab daily for 2 days PREDNISONE 02551429010 No Longer Active Austin Albarado MD Active LEVOFLOXACIN 500 MG ORAL TABS take 1 tab po qday LEVOFLOXACIN 82973395845 No Longer Active Austin Albarado MD Active PREDNISONE 20 MG TAB 2 tablets today, then 1 tablet by mouth days 2-5 PREDNISONE 76022292309 No Longer Active Austin Albarado MD Active AZITHROMYCIN 500 MG SOLR 1 po q day AZITHROMYCIN 69984027506 No Longer Active Austin Albarado MD Active KEFLEX 500 MG CAP 1 po TID x 7 days CEPHALEXIN 35839273745 No Longer Active Tristan Vaughn MD Active EQL VISION FORMULA TABS 1 TAB PO DAILY MULTIPLE VITAMINS-MINERALS 34965745991 No Longer Active Tristan Vaughn MD Active CHANTIX STARTING MONTH ELVIS 0.5 MG X 11 & 1 MG X 42 TABS 0.5mg daily for 3 days , then 0.5mg BID for 4 days, then 1mg BID VARENICLINE TARTRATE 30915991576 No Longer Active Tristan Vaughn MD Active LEVOTHYROXINE SODIUM 200 MCG TABS 1 TAB PO DAILY LEVOTHYROXINE SODIUM 08214964644 No Longer Active Tristan Vaughn MD Active LIOTHYRONINE SODIUM 50 MCG TABS take 1 tab po qday for hypothyroidism LIOTHYRONINE SODIUM 50117520079 No Longer Active Austin Albarado MD Active SYNTHROID 0.025 MG TAB 1 tablet by mouth daily LEVOTHYROXINE SODIUM 92292054702 No Longer Active Austin Albarado MD Active ARMOUR THYROID 120 MG TABS take 1 tab po qday for hypothyroidism THYROID 83532617066 Active Austin Albarado MD Active FLONASE 50 MCG/ACT SUSP 1 spray each nostril am and hs FLUTICASONE PROPIONATE Active Simona Galloway APRN Active ZITHROMAX 1 GM PACK DIRECTED AZITHROMYCIN 26497734036 No Longer Active Austin Albarado MD Active PREDNISONE 20 MG TAB 2 tabs daily for 3 days, 1 tab daily for 3 days, 1/2 tab daily for 2 days PREDNISONE 56748351914 No Longer Active Austin Albarado MD Active ZITHROMAX 250 MG TAB 2 po today, then 1 po q days 2-5 AZITHROMYCIN 93403758478 No Longer Active Austin Albarado MD Active NYSTATIN-TRIAMCINOLONE 289463-2.1 UNIT/GM-% OINT Apply to affected area TID NYSTATIN-TRIAMCINOLONE 80483618473 Active Austin Albarado MD Active ADVAIR DISKUS 500-50 MCG/DOSE AEPB ONE INH BID FLUTICASONE- SALMETEROL 23786291108 Active Austin Albarado MD Active ZITHROMAX 1 GM PACK DIRECTED ZITHROMAX 1 GM PACK 406664 AZITHROMYCIN Inactive SYNTHROID 0.025 MG TAB 1 tablet by mouth daily SYNTHROID 0.025 MG TAB 130658 LEVOTHYROXINE SODIUM Inactive LIOTHYRONINE SODIUM 50 MCG TABS take 1 tab po qday for hypothyroidism LIOTHYRONINE SODIUM 50 MCG TABS 728714 LIOTHYRONINE SODIUM Inactive LEVOTHYROXINE SODIUM 200 MCG TABS 1 TAB PO DAILY LEVOTHYROXINE SODIUM 200 MCG TABS 550502 LEVOTHYROXINE SODIUM Inactive CHANTIX STARTING MONTH ELVIS [...] po q day AZITHROMYCIN 500 MG SOLR 51347340690 AZITHROMYCIN Inactive PREDNISONE 20 MG TAB 2 tablets today, then 1 tablet by mouth days 2-5 PREDNISONE 20 MG TAB 222369 PREDNISONE Inactive TORSEMIDE 20 MG TABS 1 TAB PO BID TORSEMIDE 20 MG TABS 355001 TORSEMIDE Inactive ALBUTEROL SULFATE (2.5 MG/3ML) 0.083% NEBU nebulize 1 vial q 4-6 hours prn shortness of breath ALBUTEROL SULFATE (2.5 MG/3ML) 0.083% NEBU 976479 ALBUTEROL SULFATE Inactive LEVAQUIN 500 MG TAB 1 tablet by mouth daily LEVAQUIN 500 MG TAB 877074 LEVOFLOXACIN Inactive PREDNISONE 20 MG TAB 2 tabs daily for 4 days, 1 tab daily for 4 days, 1/2 tab daily for 4 days PREDNISONE 20 MG TAB 580843 PREDNISONE Inactive ZITHROMAX 1 GM ORAL PACK DIRECTED ZITHROMAX 1 GM ORAL PACK 977872 AZITHROMYCIN Inactive LEVAQUIN 500 MG TAB 1 tablet by mouth daily for 10 days. LEVAQUIN 500 MG TAB 368363 LEVOFLOXACIN Inactive PREDNISONE 20 MG ORAL TABS 3 TABS PO FOR 3 DAYS,THAN 2 TABS FOR 3 DAYS THAN, 1 TAB FOR 3 DAYS THAN, 1/2 TAB FOR 3 DAYS. PREDNISONE 20 MG ORAL TABS 366829 PREDNISONE Inactive PREDNISONE 20 MG ORAL TABS 3 daily for 3 days than, 2 tabs daily for 3 days than, 2 tabs daily for 3 days than, 1 tab daily for 3 days than 1/2 tab daily for 3 days. PREDNISONE 20 MG ORAL TABS 026997 PREDNISONE Inactive AMOXICILLIN 500 MG ORAL TABS Take one by mouth 3 times daily, morning, afternoon and evening.] AMOXICILLIN 500 MG ORAL TABS 857004 AMOXICILLIN Inactive LEVAQUIN 500 MG TAB 1 tablet by mouth daily LEVAQUIN 500 MG TAB 455897 LEVOFLOXACIN Inactive LEVAQUIN 500 MG TAB 1 tablet by mouth daily LEVAQUIN 500 MG TAB 000817 LEVOFLOXACIN Inactive PREDNISONE 20 MG ORAL TABS 3 tabs po for 3 days than,2 tabs po for 3 days,1 tab po for 3 days, 1/2 tab po for 3 days. PREDNISONE 20 MG ORAL TABS 919539 PREDNISONE Inactive ZITHROMAX 250 MG TAB 2 po today, then 1 po q days 2-5 ZITHROMAX 250 MG TAB 3982854 AZITHROMYCIN Inactive PREDNISONE 20 MG TAB 2 tabs daily for 3 days, 1 tab daily for 3 days, 1/2 tab daily for 2 days PREDNISONE 20 MG TAB 608985 PREDNISONE Inactive KEFLEX 500 MG CAP 1 po TID x 7 days KEFLEX 500 MG CAP 453497 CEPHALEXIN Inactive LEVOFLOXACIN 500 MG ORAL TABS take 1 tab po qday LEVOFLOXACIN 500 MG ORAL TABS 257584 LEVOFLOXACIN Inactive PREDNISONE 20 MG TAB 2 tabs daily for 3 days, 1 tab daily for 3 days, 1/2 tab daily for 2 days PREDNISONE 20 MG TAB 220668 PREDNISONE Inactive DOXYCYCLINE HYCLATE 100 MG CAP 1 cap by mouth twice daily DOXYCYCLINE HYCLATE 100 MG CAP 2906717 DOXYCYCLINE HYCLATE Inactive PREDNISONE 20 MG TAB take 3 tabs daily for 3 days, 2 tabs daily for 3 days, 1 tab daily for 3 days, 1/2 tab daily for 3 days PREDNISONE 20 MG TAB 667668 PREDNISONE Inactive PREDNISONE 20 MG TAB take 3 tabs daily for 3 days, 2 tabs daily for 3 days, 1 tab daily for 3 days, 1/2 tab daily for 3 days PREDNISONE 20 MG TAB 097716 PREDNISONE Inactive PREDNISONE 20 MG TAB take 3 tabs daily for 3 days, 2 tabs daily for 3 days, 1 tab daily for 3 days, 1/2 tab daily for 3 days PREDNISONE 20 MG TAB 968769 PREDNISONE Inactive ACYCLOVIR 400 MG TABS 1 pill three times daily ACYCLOVIR 400 MG TABS 19720518 ACYCLOVIR Inactive ACYCLOVIR 400 MG TABS 1 pill three times daily ACYCLOVIR 400 MG TABS 181522 ACYCLOVIR Inactive KEFLEX 500 MG CAP 1 po BID x 7 days KEFLEX 500 MG CAP 072441 CEPHALEXIN Inactive Advance Directives Directive Description Start [...] rate temperature E&M 94.2 [degF] Body temperature Diagnostic Results Date Name [...] Peptide - Chemistry sodium, serum 140 mmol/L 467-252 7842/02/09 carbon dioxide, venous blood 39.2 mmol/L 21.0-32.0 [...] 0.00-1.00 Encounters Code Encounter Date Provider Facility CPT-36505 Level 3 Est. Patient 16:07:19 CDT Simona Galloway APRN [facility] CPT-41398 Level 4 Est. Patient 13:31:03 CDT Austin Albarado MD [facility] CPT-85223 Level 4 Est. Patient 17:54:41 COMMUTATOR REPAIRER Austin Albarado MD [facility] CPT-25365 Level 4 Est. Patient 16:11:14 COMMUTATOR REPAIRER Austin Albarado MD [facility] CPT-01916 Level 4 Est. Patient 23:08:56 CDT Austin Albarado MD [facility] CPT-96740 Level 4 Est. Patient 13:27:28 CDT Garcia Stroud MD [facility] CPT-16520 Level 4 Est. Patient 10:51:20 CDT Austin Albarado MD [facility] CPT-04666 Level 4 Est. Patient 20:09:43 COMMUTATOR REPAIRER Austin Albarado MD [facility] CPT-00608 Level 4 Est. Patient 21:00:28 CDT Austin Albarado MD [facility] CPT-92188 Level 4 Est. Patient 10:03:37 CDT Austin Albarado MD [facility] CPT-97836 Level 3 Est. Patient 10:50:28 COMMUTATOR REPAIRER Austin Albarado MD [facility] CPT-59124 Level 4 Est. Patient 21:31:41 COMMUTATOR REPAIRER Austin Albarado MD [facility] CPT-22281 Level 3 Est. Patient 16:22:54 COMMUTATOR REPAIRER Jann Law DO [facility] CPT-21019 Level 3 Est. Patient 11:04:53 COMMUTATOR REPAIRER Tristan Vaughn MD [facility] CPT-10905 Level 4 Est. Patient 09:50:59 CDT Austin Albarado MD [facility] CPT-95411 Level 4 Est. Patient 09:29:00 CDT Austin Albarado MD [facility] CPT-13695 Level 4 Est. Patient 14:23:07 CDT Austin Albarado MD [facility] CPT-70578 Level 4 Est. Patient 14:27:26 CDT Austin Albarado MD [facility] CPT-03886 Level 4 Est. Patient 12:51:43 COMMUTATOR REPAIRER Austin Albarado MD [facility] CPT-26175 Level 3 New Patient 14:17:38 COMMUTATOR REPAIRER Austin Albarado MD [facility] CPT-65638 Level 3 New Patient 11:28:18 COMMUTATOR REPAIRER Austin Albarado MD [facility] Procedures Code Procedure Name Date Entry Date Standard Description CPT-TCMM Transitional Care Mgmt-Moderate 14:53:36 COMMUTATOR REPAIRER CPT-59136 No Charge Offi Visit 10:19:33 COMMUTATOR REPAIRER CPT-24796 Chest 2V Frontal and Lat - XRAY USE ONLY 15:01:41 COMMUTATOR REPAIRER CPT-28625 First Vx - Ix admin for Medicare patients 16:00:49 CDT CPT-63302 Fluzone High-Dose Intramuscular Suspension 16:00:49 CDT CPT-G0009 Administration of Pneumococcal Vaccine 13:25:27 CDT CPT-01236 Prevnar 13 Intramuscular Suspension 13:25:27 CDT 09/26 CPT-G0438 Initial Annual Wellness Exam 11:28:26 CDT CPT-52110 Chest 2V Frontal and Lat 15:00:00 COMMUTATOR REPAIRER CPT-70924 Breathing Tx 14:49:25 COMMUTATOR REPAIRER CPT-24940 Fluzone High Dose 15:08:41 COMMUTATOR REPAIRER CPT-11912 Immunization Single Admin 15:08:41 COMMUTATOR REPAIRER CPT-02476 Fluzone High Dose 17:31:19 CDT CPT-73967 Administration single or combination vaccine inc oral 17 :31:19 CDT CPT-39268 Venipuncture Draw Fee 11:03:05 CDT CPT-TCMM Transitional Care Mgmt-Moderate 16:32:35 CDT CPT-59192 Chest 2V Frontal and Lat 11:51:09 CDT CPT-G0008 Administration of Influenza Virus Vaccine 15:09:08 CDT CPT-48488 Fluzone High-Dose Intramuscular Suspension 15:09:08 CDT CPT-52111 Administration single or combination vaccine inc oral 17 :07:02 COMMUTATOR REPAIRER CPT-82782 Influenza High Dose age 65+ 17:07:02 COMMUTATOR REPAIRER
[2017-02-27 23:00] VITALS: BP 136/77
[2017-02-27] MEDS: fentaNYL INJECTION 100 MCG/2 ML AMP IVP PRN (23:21)
[2017-02-27] MEDS: PROPOFOL DRIP (ICU) 100 ML IV SCH ×2 (23:25→23:40)
[2017-02-27] MEDS: DOXYCYCLINE 100 MG/NS 100 ML IVPB IV SCH ×2 (23:27)
[2017-02-27] MEDS: PANTOPRAZOLE 40 MG/10 ML (PROTONIX) VIAL IV SCH (23:27)
[2017-02-28] VITALS (61 sets, daily range): BP systolic 11–143; BP diastolic 53–87
[2017-02-28] MEDS: fentaNYL INJECTION 100 MCG/2 ML AMP IVP PRN ×2 (00:20→21:36)
[2017-02-28] MEDS: inSUlin (REGULAR) HUMAN 1 UNIT/0.01 ML (CHARGE PER UNIT) SC SCH ×5 (00:30→23:32)
[2017-02-28] MEDS: CHLORHEXIDINE 0.12% SOLN 15 ML (PERIDEX) UDC PO SCH ×4 (00:31→21:07)
[2017-02-28] MEDS: methylPREDNISolone 125 MG (Solu-MEDROL) VIAL IV SCH ×3 (02:52→14:17)
[2017-02-28 03:54] LABS: BASOPHILS % (AUTO) 0 % (0-10); EOSINOPHILS % (AUTO) 0 % (0-10); LYMPHOCYTES # (AUTO) 0.9 X 10^3 (1.0-4.0); LYMPHOCYTES % (AUTO) 3 % (12-44); MEAN CORPUSCULAR HEMOGLOBIN 31 PG (25-34); MEAN CORPUSCULAR HGB CONC 30 G/DL (32-36); MEAN CORPUSCULAR VOLUME 101 FL (80-99); MEAN PLATELET VOLUME 11.1 FL (7.4-10.4); MONOCYTES # (AUTO) 0.9 X 10^3 (0.0-1.0); MONOCYTES % (AUTO) 4 % (0-12); NEUTROPHILS % (AUTO) 93 % (42-75); PLATELET COUNT 329 10^3/uL (130-400); RED CELL DISTRIBUTION WIDTH 13.7 % (10.0-14.5); WHITE BLOOD COUNT 25.8 10^3/uL (4.3-11.0)
[2017-02-28 04:21] LABS: CHOLESTEROL 168 MG/DL (< 200); DIRECT LDL 88 MG/DL (1-129); TRIGLYCERIDES 55 MG/DL (<150); VLDL CHOLESTEROL 11 MG/DL (5-40)
[2017-02-28 04:22] LABS: ALBUMIN 3.8 GM/DL (3.2-4.5); BILIRUBIN,TOTAL 0.6 MG/DL (0.1-1.0); CALCIUM 9.5 MG/DL (8.5-10.1); CREATININE SERUM 1.25 MG/DL (0.60-1.30); PHOSPHORUS 3.3 MG/DL (2.3-4.7); POTASSIUM 3.9 MMOL/L (3.6-5.0); TOTAL PROTEIN 8.1 GM/DL (6.4-8.2)
[2017-02-28 05:39] LABS: ABG BASE EXCESS 9.2 MMOL/L (-2.5-2.5); ABG HCO3 35 MMOL/L (23-27); ABG OXYGEN SATURATION 97 % (94-100); ABG PCO2 65 MMHG (35-45); ABG PH 7.35 (7.37-7.43); ABG PO2 86 MMHG (79-93)
[2017-02-28 05:40] LABS: ALLENS TEST YES-POS
[2017-02-28] MEDS: CATHETER FLUSH 10 ML SYR IV SCH ×3 (06:45→20:34)
[2017-02-28] MEDS: KCL 20 MEQ TAB (K-DUR) PO SCH (06:46)
[2017-02-28] MEDS: MAGNESIUM 1 GM/100 ML IVPB 100 ML IV SCH (06:46)
[2017-02-28] MEDS: POTASSIUM CL 10MEQ/50ML IVPB 50 ML IV SCH (06:47)
[2017-02-28] MEDS ORDERED: INFLUENZA TRIvalent 2017-2018 0.5 ML/45 MCG SYR IM ONE (07:00)
[2017-02-28] MEDS: DOXYCYCLINE 100 MG/NS 100 ML IVPB IV SCH ×2 (08:12)
[2017-02-28] MEDS: PANTOPRAZOLE 40 MG/10 ML (PROTONIX) VIAL IV SCH ×2 (08:12→20:33)
[2017-02-28] MEDS: PROPOFOL DRIP (ICU) 100 ML IV SCH ×4 (08:13→23:30)
--- NOTE | 2017-02-28 08:16 | Diagnostic Imaging Report ---
Portable chest compared to prior from February 27, 2017. INDICATION: Pneumonia. FINDINGS: Endotracheal tube and enteric tube appear unchanged. There are chronic interstitial changes present within the lungs with some superimposed interstitial and alveolar opacities at the lung bases, left greater than right suspect for superimposed pneumonia. There is no large effusion. There is no pneumothorax. IMPRESSION: 1. Life support apparatus appears appropriate in position. 2. Chronic interstitial lung disease with left greater than right basilar interstitial and alveolar opacities suspect for superimposed pneumonia. Dictated by: Dictated on workstation # [id number]
--- NOTE | 2017-02-28 09:46 | History & Physicial (CHS) ---
HPI History of Present Illness: 77yo gentleman presented to ER in respiratory distress. Patient had established care with [facility] (Manuel Miner) in December. Was seen for leg wounds and noted a history of COPD and CHF, was on home O2. According to ER records, patient had been in distress the past few days but declined to seek medical attention. Patient decompensated and presented in extremis last night, requiring intubation. Hisotry abbreviated due to requiring intubation shortly after arriving in ER. Source: RN/MD Exam Limitations: clinical condition Date seen by provider: Feb 28, 2017 Time Seen by Provider: 10:00 Attending Physician Red Rodriguez MD PCP Ale Flores DO Consult Date of Admission Feb 27, 2017 at 8:35 pm Home Medications Home Medications Reviewed patient Home Medication Reconciliation Form Allergies Coded Allergies: Sulfa (Sulfonamide Antibiotics) (Verified Allergy, Unknown, 02/27/17) KKC-Aczgde-Zwoimk Hx Patient Social History Alcohol Use: Denies Use Recreational Drug Use: No Smoking Status: Current Everyday Smoker Type Used: Cigarettes Recent Foreign Travel: No Contact w/other who traveled: No Recent Hopitalizations: No Recent Infectious Disease Expo: No Physical Abuse Screen: No Sexual Abuse: No Review of Systems ([facility]) Constitutional: no symptoms reported Other UTO D/T CONDITION Reviewed Test Results Reviewed Test Results Lab Laboratory Tests Test 02/27/17 20:17 02/27/17 20:19 02/27/17 22:30 02/28/17 00:26 Range/Units Blood Gas Puncture Site RIGHT RADIAL RIGHT RADIAL Blood Gas Patient Temperature 102.1 101.3 Arterial Blood pH 7.38 7.27 *L 7.37-7.43 Arterial Blood Partial Pressure CO2 59 H 87 *H 35-45 MMHG Arterial Blood Partial Pressure O2 53 L 70 L 79-93 MMHG Arterial Blood HCO3 33 H 38 H 23-27 MMOL/L Arterial Blood Total CO2 34.6 H 40.0 H 21.0-31.0 MMOL/L Arterial Blood Oxygen Saturation 86 L 91 L 94-100 % Arterial Blood Base Excess 8.1 H 10.8 H -2.5-2.5 MMOL/L Harshal Test POSITIVE POSITIVE Blood Gas Ventilator Setting NO YES Blood Gas Inspired Oxygen 15L (bipap <5min) 70% White Blood Count 21.4 H 4.3-11.0 10^3/uL Red Blood Count 4.42 4.35-5.85 10^6/uL Hemoglobin 13.7 13.3-17.7 G/DL Hematocrit 45 40-54 % Mean Corpuscular Volume 102 H 80-99 FL Mean Corpuscular Hemoglobin 31 25-34 PG Mean Corpuscular Hemoglobin Concent 30 L 32-36 G/DL Red Cell Distribution Width 13.8 10.0-14.5 % Platelet Count 363 130-400 10^3/uL Mean Platelet Volume 10.9 H 7.4-10.4 FL Neutrophils (%) (Auto) 81 H 42-75 % Lymphocytes (%) (Auto) 10 L 12-44 % Monocytes (%) (Auto) 8 0-12 % Eosinophils (%) (Auto) 0 0-10 % Basophils (%) (Auto) 0 0-10 % Neutrophils # (Auto) 17.4 H 1.8-7.8 X 10^3 Lymphocytes # (Auto) 2.1 1.0-4.0 X 10^3 Monocytes # (Auto) 1.7 H 0.0-1.0 X 10^3 Eosinophils # (Auto) 0.1 0.0-0.3 10^3/uL Basophils # (Auto) 0.1 0.0-0.1 10^3/uL Neutrophils % (Manual) 87 % Lymphocytes % (Manual) 8 % Monocytes % (Manual) 5 % Eosinophils % (Manual) 0 % Basophils % (Manual) 0 % Band Neutrophils 0 % Blood Morphology Comment NORMAL Prothrombin Time 12.5 12.2-14.7 SEC INR Comment 0.9 0.8-1.4 Activated Partial Thromboplast Time 27 24-35 SEC Sodium Level 138 135-145 MMOL/L Potassium Level 4.7 3.6-5.0 MMOL/L Chloride Level 93 L 98-107 MMOL/L Carbon Dioxide Level 35 H 21-32 MMOL/L Anion Gap 10 5-14 MMOL/L Blood Urea Nitrogen 20 H 7-18 MG/DL Creatinine 1.17 0.60-1.30 MG/DL Estimat Glomerular Filtration Rate 60 BUN/Creatinine Ratio 17 Glucose Level 123 H 70-105 MG/DL Lactic Acid Level 1.56 0.50-2.00 MMOL/L Calcium Level 9.8 8.5-10.1 MG/DL Magnesium Level 1.9 1.8-2.4 MG/DL Total Bilirubin 0.7 0.1-1.0 MG/DL Aspartate Amino Transf (AST/SGOT) 20 5-34 U/L Alanine Aminotransferase (ALT/SGPT) 18 0-55 U/L Alkaline Phosphatase 90 40-136 U/L Myoglobin 72.8 10.0-92.0 NG/ML Troponin I < 0.30 <0.30 NG/ML B-Type Natriuretic Peptide 16.8 <100.0 PG/ML Total Protein 8.6 H 6.4-8.2 GM/DL Albumin 4.2 3.2-4.5 GM/DL Glucometer 161 H 70-110 MG/DL Test 02/28/17 03:33 02/28/17 05:30 02/28/17 11:00 02/28/17 16:07 Range/Units White Blood Count 25.8 H 4.3-11.0 10^3/uL Red Blood Count 4.30 L 4.35-5.85 10^6/uL Hemoglobin 13.2 L 13.3-17.7 G/DL Hematocrit 44 40-54 % Mean Corpuscular Volume 101 H 80-99 FL Mean Corpuscular Hemoglobin 31 25-34 PG Mean Corpuscular Hemoglobin Concent 30 L 32-36 G/DL Red Cell Distribution Width 13.7 10.0-14.5 % Platelet Count 329 130-400 10^3/uL Mean Platelet Volume 11.1 H 7.4-10.4 FL Neutrophils (%) (Auto) 93 H 42-75 % Lymphocytes (%) (Auto) 3 L 12-44 % Monocytes (%) (Auto) 4 0-12 % Eosinophils (%) (Auto) 0 0-10 % Basophils (%) (Auto) 0 0-10 % Neutrophils # (Auto) 24.0 H 1.8-7.8 X 10^3 Lymphocytes # (Auto) 0.9 L 1.0-4.0 X 10^3 Monocytes # (Auto) 0.9 0.0-1.0 X 10^3 Eosinophils # (Auto) 0.0 0.0-0.3 10^3/uL Basophils # (Auto) 0.0 0.0-0.1 10^3/uL Sodium Level 138 135-145 MMOL/L Potassium Level 3.9 3.6-5.0 MMOL/L Chloride Level 94 L 98-107 MMOL/L Carbon Dioxide Level 27 21-32 MMOL/L Anion Gap 17 H 5-14 MMOL/L Blood Urea Nitrogen 22 H 7-18 MG/DL Creatinine 1.25 0.60-1.30 MG/DL Estimat Glomerular Filtration Rate 56 BUN/Creatinine Ratio 18 Glucose Level 199 H 70-105 MG/DL Calcium Level 9.5 8.5-10.1 MG/DL Phosphorus Level 3.3 2.3-4.7 MG/DL Magnesium Level 2.0 1.8-2.4 MG/DL Total Bilirubin 0.6 0.1-1.0 MG/DL Aspartate Amino Transf (AST/SGOT) 18 5-34 U/L Alanine Aminotransferase (ALT/SGPT) 15 0-55 U/L Alkaline Phosphatase 81 40-136 U/L Troponin I < 0.30 <0.30 NG/ML Total Protein 8.1 6.4-8.2 GM/DL Albumin 3.8 3.2-4.5 GM/DL Triglycerides Level 55 <150 MG/DL Cholesterol Level 168 < 200 MG/DL LDL Cholesterol Direct 88 1-129 MG/DL VLDL Cholesterol 11 5-40 MG/DL HDL Cholesterol 59 40-60 MG/DL Blood Gas Puncture Site R RAD Blood Gas Patient Temperature 98.0 Arterial Blood pH 7.35 L 7.37-7.43 Arterial Blood Partial Pressure CO2 65 H 35-45 MMHG Arterial Blood Partial Pressure O2 86 79-93 MMHG Arterial Blood HCO3 35 H 23-27 MMOL/L Arterial Blood Total CO2 37.0 H 21.0-31.0 MMOL/L Arterial Blood Oxygen Saturation 97 94-100 % Arterial Blood Base Excess 9.2 H -2.5-2.5 MMOL/L Harshal Test YES-POS Blood Gas Ventilator Setting YES Blood Gas Inspired Oxygen 70% FIO2 Glucometer 199 H 119 H 70-110 MG/DL Radiology Date of Exam: 02/28/17 CHEST 1 VIEW, AP/PA ONLY Portable chest compared to prior from February 27, 2017. INDICATION: Pneumonia. FINDINGS: Endotracheal tube and enteric tube appear unchanged. There are chronic interstitial changes present within the lungs with some superimposed interstitial and alveolar opacities at the lung bases, left greater than right suspect for superimposed pneumonia. There is no large effusion. There is no pneumothorax. IMPRESSION: 1. Life support apparatus appears appropriate in position. 2. Chronic interstitial lung disease with left greater than right basilar interstitial and alveolar opacities suspect for superimposed pneumonia. Physical Exam-(CHC) Physical Exam Vital Signs VS - Last 72 Hours, by Label 02/27/17 02/27/17 02/27/17 02/27/17 20:07 20:50 20:53 21:50 Temp 102.1 Pulse 134 134 146 Resp 28 12 12 B/P (MAP) 142/102 Pulse Ox 88 84 100 94 O2 Delivery NIV/CPAP Mechanical Ventilator O2 Flow Rate 15.00 100.00 FiO2 100 02/27/17 02/27/17 02/27/17 02/27/17 22:00 22:15 23:00 23:00 Temp 101.3 99.3 Pulse 138 131 Resp 12 14 B/P (MAP) 136/77 Pulse Ox 92 91 O2 Delivery Mechanical Ventilator Mechanical Ventilator O2 Flow Rate 70.00 70.00 FiO2 70 02/27/17 02/28/17 02/28/17 02/28/17 23:40 00:00 00:00 00:00 Temp 99.9 98.3 Pulse 138 126 Resp 14 14 B/P (MAP) 122/73 130/80 Pulse Ox 91 92 O2 Delivery Mechanical Ventilator Mechanical Ventilator Mechanical Ventilator O2 Flow Rate 70.00 70.00 70.00 FiO2 70 02/28/17 02/28/17 02/28/17 02/28/17 00:55 01:00 01:00 02:00 Pulse 115 115 115 112 Resp 15 14 19 B/P (MAP) 120/75 117/79 Pulse Ox 92 91 93 O2 Delivery Mechanical Ventilator Mechanical Ventilator O2 Flow Rate 70.00 70.00 FiO2 70 02/28/17 02/28/17 02/28/17 02/28/17 02:52 03:00 03:22 04:00 Pulse 101 101 Resp 20 19 B/P (MAP) 111/77 Pulse Ox 93 93 O2 Delivery Mechanical Ventilator Mechanical Ventilator Mechanical Ventilator O2 Flow Rate 70.00 FiO2 70 70 70 02/28/17 02/28/17 02/28/17 02/28/17 04:00 04:30 05:00 06:00 Pulse 97 92 93 98 Resp 20 20 17 20 B/P (MAP) 110/75 111/76 100/68 Pulse Ox 93 96 93 91 O2 Delivery Mechanical Ventilator Mechanical Ventilator Mechanical Ventilator O2 Flow Rate 70.00 70.00 70.00 FiO2 70 02/28/17 02/28/17 02/28/17 02/28/17 06:37 07:00 07:00 07:30 Temp 98.3 Pulse 96 94 94 92 Resp 20 19 19 B/P (MAP) 105/73 109/74 Pulse Ox 91 91 92 O2 Delivery Mechanical Ventilator Mechanical Ventilator O2 Flow Rate 70.00 70.00 70.00 FiO2 70 02/28/17 02/28/17 02/28/17 02/28/17 07:45 08:00 08:00 08:13 Temp 98.0 Pulse 98 93 94 Resp 29 20 19 B/P (MAP) 130/81 108/73 102/75 Pulse Ox 93 94 93 O2 Delivery Mechanical Ventilator Mechanical Ventilator Mechanical Ventilator Mechanical Ventilator O2 Flow Rate 70.00 70.00 FiO2 70 02/28/17 02/28/17 02/28/17 02/28/17 08:15 08:30 08:45 08:48 Pulse 93 92 91 93 Resp 19 20 20 B/P (MAP) 111/67 120/77 108/73 Pulse Ox 93 93 91 92 O2 Delivery Mechanical Ventilator Mechanical Ventilator Mechanical Ventilator O2 Flow Rate 70.00 70.00 70.00 FiO2 70 02/28/17 02/28/17 02/28/17 02/28/17 09:00 09:15 09:30 09:45 Pulse 89 92 92 92 Resp 19 15 19 19 B/P (MAP) 111/74 143/84 110/75 11/74 Pulse Ox 91 94 92 91 O2 Delivery Mechanical Ventilator Mechanical Ventilator Mechanical Ventilator Mechanical Ventilator O2 Flow Rate 70.00 70.00 70.00 70.00 02/28/17 02/28/17 02/28/17 02/28/17 10:00 10:02 10:15 10:30 Pulse 91 91 90 89 Resp 20 20 20 20 B/P (MAP) 109/71 121/75 112/70 Pulse Ox 92 92 93 92 O2 Delivery Mechanical Ventilator Mechanical Ventilator Mechanical Ventilator O2 Flow Rate 70.00 70.00 70.00 FiO2 70 02/28/17 02/28/17 02/28/17 02/28/17 10:45 11:00 12:00 12:00 Temp 97.2 Pulse 89 89 Resp 19 20 B/P (MAP) 109/71 99/87 Pulse Ox 91 92 O2 Delivery Mechanical Ventilator Mechanical Ventilator Mechanical Ventilator O2 Flow Rate 70.00 70.00 FiO2 70 02/28/17 02/28/17 02/28/17 02/28/17 12:51 13:00 14:17 14:19 Pulse 90 90 90 92 Resp 20 21 Pulse Ox 96 96 FiO2 70 70 02/28/17 02/28/17 02/28/17 16:00 16:00 16:39 Temp 97.6 Pulse 89 Resp 20 Pulse Ox 93 O2 Delivery Mechanical Ventilator FiO2 70 70 Capillary Refill : Less Than 3 Seconds General Appearance: obese HEENT: PERRL/EOMI Neck: other (thick) Respiratory: other (poor air exchange) Cardiovascular: regular rate, rhythm, no gallop, no JVD, other (1+ edema) Gastrointestinal: normal bowel sounds, non tender, soft Extremities: non-tender, normal inspection, no calf tenderness, normal capillary refill Skin: normal color, warm/dry Clinical Quality Measures DVT/VTE Risk/Contraindication: Risk Factor Score Per Nursin RFS Level Per Nursing on Admit: 4+=Very High Copy Copies To 1: MANUEL MINER APRN Assessment/Plan Assessment/Plan Plan RESPIRATORY FAILURE SEPTIC SHOCK CHRONIC INTERSTITIAL LUNG DISEASE PSEUDOMONAS PNEUMONIA COPD ADM: Patient sedated and intubated, requiring high level ventilatory support. Appreciate eICU's assistance. WIll consult Dr Jacobs on Thursday as he is out of town this . Due to septic shock, will change Rocephin and Doxy to ZOsyn, Vanc, and Levaquin. Will pare down as we get speciation/resistances back. On methylprednisone 125mg q6h and nebs as well. Treating with cautious IVF d/t history of CHF. needs tube feeds early as he is likely going to be on racheal vent for an extended period of time. HISTORY OF CHF ADM: Patient has reported history but has not seen a shipping and receiving. Will order an ECHO and plan to consult cardiology on Thursday. BNP 16.8, so we have room for fluids. HYPERGLYCEMIA ADM: ICU SSI, will obtain a1c to see if hsitory of diabetes. PROPH: RED NIETO MD Feb 28, 2017 09:46
[2017-02-28] MEDS: 1/2 NS IV SOLUTION 1,000 ML IV SCH ×2 (11:23→18:40)
[2017-02-28] MEDS: ENOXAPARIN 40 MG/0.4 ML (LOVENOX) SYR SC SCH (16:01)
[2017-02-28] MEDS ORDERED: PHARMACY TO DOSE IV SCH (16:45)
[2017-02-28] MEDS ORDERED: VANCOMYCIN 2000 MG/NS 500 ML IVPB IV NR ×2 (16:50)
[2017-02-28] MEDS ORDERED: NS IV 500 ML 500 ML ONE (17:01)
[2017-02-28] MEDS: LEVOFLOXACIN 750 MG/150 ML IV 150 ML IV SCH (17:14)
[2017-02-28] MEDS: PIPERACILLIN SODIUM/TAZOBACTAM 4.5 GM in NS (IVPB) 100 ML IV NR ×2 (17:15→17:25)
[2017-02-28] MEDS ORDERED: NS IV 500 ML 500 ML IV ONE (20:15)
[2017-02-28] MEDS ORDERED: cefTRIAXone 1 GM/NS 50 ML IVPB IV SCH ×2 (21:00)
[2017-02-28] MEDS: PIPERACILLIN/TAZOBACTAM 4.5 GM/NS 100 ML IVPB IV SCH ×2 (22:15)
[2017-03-01] VITALS (65 sets, daily range): BP systolic 87–133; BP diastolic 44–77
[2017-03-01] MEDS: RT-ALBUTEROL/IPRATROPIUM 3 ML (DUONEB) VIAL INH PRN (02:31)
[2017-03-01] MEDS: 1/2 NS IV SOLUTION 1,000 ML IV SCH ×3 (02:46→17:19)
[2017-03-01] MEDS: fentaNYL INJECTION 100 MCG/2 ML AMP IVP PRN ×6 (02:46→23:58)
[2017-03-01 04:43] LABS: ABG BASE EXCESS 7.6 MMOL/L (-2.5-2.5); ABG HCO3 33 MMOL/L (23-27); ABG OXYGEN SATURATION 98 % (94-100); ABG PCO2 57 MMHG (35-45); ABG PH 7.37 (7.37-7.43); ABG PO2 97 MMHG (79-93); ABG TCO2 34.8 MMOL/L (21.0-31.0)
[2017-03-01 04:44] LABS: ALLENS TEST YES-POS; PATIENT TEMP 96.8
[2017-03-01] MEDS: CATHETER FLUSH 10 ML SYR IV SCH ×3 (05:14→21:04)
[2017-03-01] MEDS: KCL 20 MEQ TAB (K-DUR) PO SCH (05:15)
[2017-03-01] MEDS: VANCOMYCIN 1 GM/NS 250 ML IVPB IV SCH ×4 (05:15→17:12)
[2017-03-01 05:31] LABS: BASOPHILS % (AUTO) 0 % (0-10); EOSINOPHILS % (AUTO) 0 % (0-10); LYMPHOCYTES # (AUTO) 1.4 X 10^3 (1.0-4.0); LYMPHOCYTES % (AUTO) 6 % (12-44); MEAN CORPUSCULAR HEMOGLOBIN 31 PG (25-34); MEAN CORPUSCULAR HGB CONC 30 G/DL (32-36); MEAN CORPUSCULAR VOLUME 101 FL (80-99); MEAN PLATELET VOLUME 11.3 FL (7.4-10.4); MONOCYTES # (AUTO) 1.4 X 10^3 (0.0-1.0); MONOCYTES % (AUTO) 5 % (0-12); NEUTROPHILS # (AUTO) 22.4 X 10^3 (1.8-7.8); NEUTROPHILS % (AUTO) 89 % (42-75); PLATELET COUNT 332 10^3/uL (130-400); RED BLOOD COUNT 3.94 10^6/uL (4.35-5.85); RED CELL DISTRIBUTION WIDTH 13.7 % (10.0-14.5); WHITE BLOOD COUNT 25.2 10^3/uL (4.3-11.0)
[2017-03-01 05:46] LABS: ANION GAP 12 MMOL/L (5-14); BLOOD UREA NITROGEN 26 MG/DL (7-18); BUN/CREATININE RATIO 25; CALCIUM 9.3 MG/DL (8.5-10.1); CARBON DIOXIDE 29 MMOL/L (21-32); CHLORIDE 96 MMOL/L (98-107); CREATININE SERUM 1.06 MG/DL (0.60-1.30); GFR ESTIMATED > 60; GLUCOSE 132 MG/DL (70-105); PHOSPHORUS 3.7 MG/DL (2.3-4.7); POTASSIUM 4.3 MMOL/L (3.6-5.0); SODIUM 137 MMOL/L (135-145)
[2017-03-01] MEDS: MAGNESIUM 1 GM/100 ML IVPB 100 ML IV SCH (05:48)
[2017-03-01] MEDS: POTASSIUM CL 10MEQ/50ML IVPB 50 ML IV SCH (05:48)
[2017-03-01] MEDS: inSUlin (REGULAR) HUMAN 1 UNIT/0.01 ML (CHARGE PER UNIT) SC SCH ×3 (05:48→17:19)
[2017-03-01] MEDS: CHLORHEXIDINE 0.12% SOLN 15 ML (PERIDEX) UDC PO SCH ×3 (06:00→22:13)
[2017-03-01] MEDS: PIPERACILLIN/TAZOBACTAM 4.5 GM/NS 100 ML IVPB IV SCH ×6 (06:00→23:21)
[2017-03-01] MEDS: RT-ALBUTEROL/IPRATROPIUM 3 ML (DUONEB) VIAL INH SCH ×5 (06:30→22:47)
[2017-03-01] MEDS: PROPOFOL DRIP (ICU) 100 ML IV SCH ×4 (07:03→21:03)
--- NOTE | 2017-03-01 08:35 | Diagnostic Imaging Report ---
CHEST 1 VIEW, AP/PA ONLY Indication: Intubation. Comparison: 02/28/17 Findings: Examination is suboptimal due to limitations of the technique including suboptimal penetration. Stable ET tube. Enteric tube is not visualized due to suboptimal technique. Possible increase in right basilar opacities. Patchy left basilar opacities are similar. Grossly stable cardiomediastinal silhouette. No definite pneumothorax. Impression: 1. Limited exam due to suboptimal technique. Grossly stable ET tube with poor visualization of the enteric tube. 2. Possible increased right basilar opacities, although this may be due to suboptimal technique. Attention on followup imaging is advised. Dictated by: Dictated on workstation # [id number]
[2017-03-01] MEDS: PANTOPRAZOLE 40 MG/10 ML (PROTONIX) VIAL IV SCH ×2 (08:39→21:03)
--- NOTE | 2017-03-01 10:18 | Progress Note (SOAP) ---
Subjective Subjective/Events-last exam Patient remains sedated and intubated. No events overnight. Review of Systems Date Seen by Provider: Mar 01, 2017 Time Seen by Provider: 09:00 UTO Objective Exam Last Set of Vital Signs Vital Signs Date Time Temp Pulse Resp B/P (MAP) Pulse Ox O2 Delivery O2 Flow Rate FiO2 03/01/17 08:43 Mechanical Ventilator 50 03/01/17 08:30 95 17 119/65 98 50.00 03/01/17 04:00 96.8 Capillary Refill : Less Than 3 Seconds I&O Intake and Output 03/02/17 00:00 Intake Total 1450 ml Output Total 1450 ml Balance 0 ml Intake Oral 0 ml IV Total 1450 ml Output Urine Total 1250 ml Gastric Drainage Total 200 ml General: Other (sedatd intubated) Lungs: Other (improved air movement still wheezing) Heart: Regular Rate, Normal S1, Normal S2, No Murmurs, Gallops, Rubs Abdomen: Normal Bowel Sounds, Soft, No Tenderness, No Hepatosplenomegaly, No Masses Extremities: No Clubbing, No Cyanosis, Other (trace edema) Skin: No Rashes, No Breakdown Results/Procedures Lab Laboratory Tests 02/28/17 11:00: Glucometer 199H 02/28/17 16:07: Glucometer 119H 02/28/17 22:06: Troponin I < 0.30 02/28/17 23:32: Glucometer 137H 03/01/17 04:37: Blood Gas Puncture Site R RAD, Blood Gas Patient Temperature 96.8, Arterial Blood pH 7.37, Arterial Blood Partial Pressure CO2 57H, Arterial Blood Partial Pressure O2 97H, Arterial Blood HCO3 33H, Arterial Blood Total CO2 34.8H, Arterial Blood Oxygen Saturation 98, Arterial Blood Base Excess 7.6H, Harshal Test YES-POS, Blood Gas Ventilator Setting YES, Blood Gas Inspired Oxygen 60% 03/01/17 05:05: White Blood Count 25.2H, Red Blood Count 3.94L, Hemoglobin 12.1L, Hematocrit 40 , Mean Corpuscular Volume 101H, Mean Corpuscular Hemoglobin 31, Mean Corpuscular Hemoglobin Concent 30L, Red Cell Distribution Width 13.7, Platelet Count 332, Mean Platelet Volume 11.3H, Neutrophils (%) (Auto) 89H, Lymphocytes ( %) (Auto) 6L, Monocytes (%) (Auto) 5, Eosinophils (%) (Auto) 0, Basophils (%) ( Auto) 0, Neutrophils # (Auto) 22.4H, Lymphocytes # (Auto) 1.4, Monocytes # (Auto ) 1.4H, Eosinophils # (Auto) 0.0, Basophils # (Auto) 0.0, Sodium Level 137, Potassium Level 4.3, Chloride Level 96L, Carbon Dioxide Level 29, Anion Gap 12, Blood Urea Nitrogen 26H, Creatinine 1.06, Estimat Glomerular Filtration Rate > 60, BUN/Creatinine Ratio 25, Glucose Level 132H, Calcium Level 9.3, Phosphorus Level 3.7, Magnesium Level 2.0 Microbiology 02/27/17 Blood Culture - Preliminary, Resulted Staph, Coag Neg (Mechanical Research Engineer) See Comments 02/27/17 Gram Stain - Final, Complete 02/27/17 Sputum Culture - Final, Complete Pseudomonas Aeruginosa Radiology Date of Exam: 02/28/17 CHEST 1 VIEW, AP/PA ONLY Portable chest compared to prior from February 27, 2017. INDICATION: Pneumonia. FINDINGS: Endotracheal tube and enteric tube appear unchanged. There are chronic interstitial changes present within the lungs with some superimposed interstitial and alveolar opacities at the lung bases, left greater than right suspect for superimposed pneumonia. There is no large effusion. There is no pneumothorax. IMPRESSION: 1. Life support apparatus appears appropriate in position. 2. Chronic interstitial lung disease with left greater than right basilar interstitial and alveolar opacities suspect for superimposed pneumonia. Assessment/Plan Assessment/Plan Plan RESPIRATORY FAILURE SEVERE SEPSIS (NOT SEPTIC SHOCK - BP WAS NOT LOW, LACTATE WNL) CHRONIC INTERSTITIAL LUNG DISEASE PSEUDOMONAS PNEUMONIA COPD ADM: Patient sedated and intubated, requiring high level ventilatory support. Appreciate [facility]'s assistance. WIll consult Dr Jacobs on Thursday as he is out of town this weekend. Due to septic shock, will change Rocephin and Doxy to ZOsyn, Vanc, and Levaquin. Will pare down as we get speciation/resistances back. On methylprednisone 125mg q6h and nebs as well. Treating with cautious IVF d/t history of CHF. needs tube feeds early as he is likely going to be on racheal vent for an extended period of time. 03/01: No improvement in ABG, will not wean vent today. turning O2 down as best we can - now at 50%. continue triple therapy for now. do not believe CONS in BC bottle is true infection. HISTORY OF CHF ADM: Patient has reported history but has not seen a harness installer. Will order an ECHO and plan to consult cardiology on Thursday. BNP 16.8, so we have room for fluids. 10:15: echo tomorrow. CVP still reading low after 2L fluid bolus yesterday, UOP good. HYPERGLYCEMIA ADM: ICU SSI, will obtain a1c to see if hsitory of diabetes. PROPH: PEPCID AND LOVENOX Clinical Quality Measures DVT/VTE Risk/Contraindication: Risk Factor Score Per Nursin RFS Level Per Nursing on Admit: 4+=Very High RED PISANO MD Mar 01, 2017 10:18 am
[2017-03-01] MEDS ORDERED: NS IV 1000 ML 1,000 ML ONE (12:17)
[2017-03-01] MEDS ORDERED: NS IV 1000 ML 1,000 ML IV SCH (12:30)
[2017-03-01] MEDS: ENOXAPARIN 40 MG/0.4 ML (LOVENOX) SYR SC SCH (16:00)
[2017-03-01] MEDS: LEVOFLOXACIN 750 MG/150 ML IV 150 ML IV SCH (16:01)
[2017-03-02] VITALS (28 sets, daily range): BP systolic 100–135; BP diastolic 50–77
--- NOTE | 2017-03-02 00:38 | OPERATIVE REPORT ---
DATE OF SERVICE: PREOPERATIVE DIAGNOSES: Venous insufficiency, septic shock. POSTOPERATIVE DIAGNOSES: Venous insufficiency, septic shock. PROCEDURE: Insertion of triple lumen catheter left IJ with ultrasound guidance. SURGEON: Dr. Lieberman. VENEER LAYER: None. ANESTHESIA: Just local lidocaine. BLOOD LOSS: Scant. FLUIDS: Minimal. POSTOPERATIVE CONDITION: Stable. INDICATION FOR PROCEDURE: The patient is a 77-year-old male who came in, admitted with respiratory failure, septic shock, pseudomonas pneumonia, COPD, history of CHF. He has been intubated and having trouble managing his fluids, primary care wanted a central line for CVP, so the patient had a central line placed. FINDINGS: The central line placed in left IJ with ultrasound guidance without any difficulty. PROCEDURE NOTE: After informed consent was obtained, the patient in his bed was sterilely prepped and draped in normal fashion. Local lidocaine was used to infiltrate the left neck. Then, using ultrasound to visualize the left IJ and then on the first attempt watched the needle go right into the IJ got a good flush of blood. Removed the syringe and then used the guidewire, placed down the needle using Seldinger technique. It went in easily, removed the needle, made a stab incision at the neck with a #11 blade and then over the guidewire using the Seldinger technique, placed the dilator. Then removed the dilator and then over the guidewire using the Seldinger technique, placed the triple lumen catheter, went in easily and then removed the guidewire. Good flush of blood and then flushed easily in all 3 ports, sutured in place with 2-0 silk suture and then area was cleaned and dried. Antibiotic disk was placed and then a sterile dressing. The patient tolerated the procedure. Sponge, instrument, needle count correct at the end of the case, did not need to order a chest x-ray because we watched the needle go in on the first attempt. Job ID: [id number] DocumentID: [id number] Dictated Date: 03/01/2017 12:53:04 Grain Buyer Date: 03/02/2017 00:38:17 Dictated By: ALFONZO LIEBERMAN DO
[2017-03-02] MEDS: PROPOFOL DRIP (ICU) 100 ML IV SCH ×2 (01:07→05:55)
[2017-03-02] MEDS: 1/2 NS IV SOLUTION 1,000 ML IV SCH ×2 (01:08→09:31)
[2017-03-02] MEDS: fentaNYL INJECTION 100 MCG/2 ML AMP IVP PRN ×6 (02:05→21:03)
[2017-03-02] MEDS: RT-ALBUTEROL/IPRATROPIUM 3 ML (DUONEB) VIAL INH SCH ×6 (02:26→21:26)
[2017-03-02 04:18] LABS: BASOPHILS % (AUTO) 0 % (0-10); EOSINOPHILS % (AUTO) 0 % (0-10); LYMPHOCYTES # (AUTO) 0.8 X 10^3 (1.0-4.0); LYMPHOCYTES % (AUTO) 4 % (12-44); MEAN CORPUSCULAR HEMOGLOBIN 31 PG (25-34); MEAN CORPUSCULAR HGB CONC 30 G/DL (32-36); MEAN CORPUSCULAR VOLUME 101 FL (80-99); MEAN PLATELET VOLUME 10.9 FL (7.4-10.4); MONOCYTES # (AUTO) 1.5 X 10^3 (0.0-1.0); MONOCYTES % (AUTO) 7 % (0-12); NEUTROPHILS # (AUTO) 18.5 X 10^3 (1.8-7.8); NEUTROPHILS % (AUTO) 89 % (42-75); PLATELET COUNT 337 10^3/uL (130-400); RED BLOOD COUNT 3.66 10^6/uL (4.35-5.85); RED CELL DISTRIBUTION WIDTH 13.9 % (10.0-14.5); WHITE BLOOD COUNT 20.7 10^3/uL (4.3-11.0)
[2017-03-02 04:38] LABS: ANION GAP 10 MMOL/L (5-14); BLOOD UREA NITROGEN 22 MG/DL (7-18); BUN/CREATININE RATIO 28; CALCIUM 9.1 MG/DL (8.5-10.1); CARBON DIOXIDE 29 MMOL/L (21-32); CHLORIDE 100 MMOL/L (98-107); CREATININE SERUM 0.78 MG/DL (0.60-1.30); GFR ESTIMATED > 60; GLUCOSE 110 MG/DL (70-105); MAGNESIUM 2.1 MG/DL (1.8-2.4); PHOSPHORUS 2.5 MG/DL (2.3-4.7); POTASSIUM 3.8 MMOL/L (3.6-5.0); SODIUM 139 MMOL/L (135-145)
[2017-03-02 05:28] LABS: ABG BASE EXCESS 7.8 MMOL/L (-2.5-2.5); ABG HCO3 33 MMOL/L (23-27); ABG OXYGEN SATURATION 96 % (94-100); ABG PCO2 54 MMHG (35-45); ABG PH 7.39 (7.37-7.43); ABG PO2 71 MMHG (79-93); ABG TCO2 34.8 MMOL/L (21.0-31.0)
[2017-03-02 05:30] LABS: ALLENS TEST YES-POS; PATIENT TEMP 96.2
[2017-03-02] MEDS: KCL 20 MEQ TAB (K-DUR) PO SCH (06:00)
[2017-03-02] MEDS: POTASSIUM CL 10MEQ/50ML IVPB 50 ML IV SCH (06:00)
[2017-03-02] MEDS: MAGNESIUM 1 GM/100 ML IVPB 100 ML IV SCH (06:00)
[2017-03-02] MEDS: inSUlin (REGULAR) HUMAN 1 UNIT/0.01 ML (CHARGE PER UNIT) SC SCH ×4 (06:00→17:42)
[2017-03-02] MEDS: VANCOMYCIN 1 GM/NS 250 ML IVPB IV SCH ×2 (06:23)
[2017-03-02] MEDS: CATHETER FLUSH 10 ML SYR IV SCH ×3 (06:25→20:54)
[2017-03-02] MEDS: CHLORHEXIDINE 0.12% SOLN 15 ML (PERIDEX) UDC PO SCH ×3 (06:38→21:06)
--- NOTE | 2017-03-02 06:46 | Pulmonary Consultation ---
History of Present Illness History of Present Illness Date of Consultation 03/02/17 06:41 Time Seen by Provider: 06:41 Date of Admission History of Present Illness 77yo with hx of severe oxygen dependent COPD and CHF presented to ED secondary to worsening respiratory distress. SOB started about 3 days prior to admission. PT was intubated in the ED upon admission 02/28 and was transferred to ICU. I am consulted for pulmonary/ICU management. Unable to obtain ROS secondary to pt on vent. Allergies and Home Medications Allergies Coded Allergies: Sulfa (Sulfonamide Antibiotics) (Verified Allergy, Unknown, 02/27/17) Past [id number] Hx Patient Social History Alcohol Use: Denies Use Recreational Drug Use: No Smoking Status: Current Everyday Smoker Type Used: Cigarettes Recent Foreign Travel: No Contact w/Someone Who Travel: No Recent Infectious Disease Expo: No Recent Hopitalizations: No Physical Abuse: No Sexual Abuse: No Mistreated: No Fear: No Immunizations Up To Date PED Vaccines UTD: No Seasonal Allergies Seasonal Allergies: Yes Surgeries History of Surgeries: Yes Surgeries: Abdominal (UNKNOWN TYPE) Respiratory History of Respiratory Disorde: Yes (PT STATES HE HAS BEEN ON VENTILATOR IN PAST) Respiratory Disorders: Pneumonia, COPD Currently Using CPAP: No Currently Using BIPAP: No Cardiovascular History of Cardiac Disorders: Yes (CHF) Cardiac Disorders: Chronic Edema/Swelling Neurological History of Neurological Disord: No (UNKNOWN) Genitourinary History of Genitourinary Disor: No Gastrointestinal History of Gastrointestinal Di: No Musculoskeletal History of Musculoskeletal Dis: No Musculoskeletal Disorders: Arthritis Endocrine History of Endocrine Disorders: Yes Are Your Blood Sugars Over 250: No HEENT History of HEENT Disorders: No HEENT Disorders: Cataract Loss of Vision: Bilateral Hearing Impairment: Hard of Hearing Cancer History of Cancer: Yes Cancer: Skin Type of Tx Receive: Surgical Intervention Psychosocial History of Psychiatric Problem: No (UNKNOWN) Behavioral Health Disorders: Anxiety, Depression Suicide Risk Score: 0 Integumentary History of Skin or Integumenta: Yes (shingles) Skin/Integumentary Disorders: Eczema, Herpes Blood Transfusions History of Blood Disorders: No Review of Systems Time Seen by Provider: 07:09 Exam Exam Vital Signs Date Time Temp Pulse Resp B/P (MAP) Pulse Ox O2 Delivery O2 Flow Rate FiO2 03/02/17 06:00 103 133/67 97 Mechanical Ventilator 40.00 03/02/17 05:55 112 26 133/62 96 Mechanical Ventilator 40.00 03/02/17 05:50 89 24 100 45 03/02/17 05:50 116 94 Mechanical Ventilator 40.00 03/02/17 05:00 82 103/58 96 Mechanical Ventilator 45.00 03/02/17 04:15 87 20 93 45 03/02/17 04:00 Mechanical Ventilator 45 03/02/17 04:00 96.6 79 107/63 97 Mechanical Ventilator 45.00 03/02/17 03:00 73 105/63 99 Mechanical Ventilator 45.00 03/02/17 02:26 75 20 96 45 03/02/17 02:00 100 26 114/71 95 Mechanical Ventilator 45.00 03/02/17 01:07 77 22 113/65 95 Mechanical Ventilator 45.00 03/02/17 01:00 79 29 113/65 95 Mechanical Ventilator 45.00 03/02/17 01:00 79 03/02/17 00:22 82 20 95 45 03/02/17 00:00 Mechanical Ventilator 45 03/02/17 00:00 96.4 87 19 110/63 94 Mechanical Ventilator 45.00 03/01/17 23:00 80 19 120/69 97 Mechanical Ventilator 45.00 03/01/17 22:47 70 20 96 45 03/01/17 22:00 72 19 95/51 93 Mechanical Ventilator 45.00 03/01/17 21:03 84 19 109/65 94 Mechanical Ventilator 45.00 03/01/17 21:00 90 22 109/65 96 Mechanical Ventilator 45.00 03/01/17 20:20 82 20 94 45 03/01/17 20:00 96.8 76 20 102/53 95 Mechanical Ventilator 45.00 03/01/17 20:00 Mechanical Ventilator 45 03/01/17 19:00 78 19 99/47 93 Mechanical Ventilator 45.00 03/01/17 19:00 78 03/01/17 18:46 70 20 94 45 03/01/17 18:00 80 20 100/51 92 Mechanical Ventilator 50.00 03/01/17 17:11 94/52 03/01/17 17:00 87 18 94/52 94 Mechanical Ventilator 50.00 03/01/17 16:53 79 20 93 45 03/01/17 16:11 97.8 Mechanical Ventilator 45.00 10/15/17 16:10 Mechanical Ventilator 50 03/01/17 16:00 75 19 106/57 95 Mechanical Ventilator 50.00 03/01/17 15:00 82 19 102/55 93 Mechanical Ventilator 50.00 03/01/17 14:16 92 21 98 50 03/01/17 14:00 84 15 111/63 95 Mechanical Ventilator 50.00 03/01/17 13:18 98/63 03/01/17 13:00 87 15 111/63 94 Mechanical Ventilator 50.00 03/01/17 12:48 91 03/01/17 12:30 Mechanical Ventilator 50 03/01/17 12:29 97.6 Mechanical Ventilator 50.00 03/01/17 12:23 85 20 93 50 03/01/17 12:00 90 23 107/60 93 Mechanical Ventilator 50.00 03/01/17 11:00 97 23 122/77 98 Mechanical Ventilator 50.00 03/01/17 10:30 89 20 110/59 96 Mechanical Ventilator 50.00 03/01/17 10:15 97 16 119/62 95 Mechanical Ventilator 50.00 03/01/17 10:12 91 20 95 50 03/01/17 10:00 86 16 133/73 97 Mechanical Ventilator 50.00 03/01/17 09:45 81 6 111/62 97 Mechanical Ventilator 50.00 03/01/17 09:30 79 20 101/62 96 Mechanical Ventilator 50.00 03/01/17 09:15 70 15 102/56 94 Mechanical Ventilator 50.00 03/01/17 09:00 73 10 87/44 93 Mechanical Ventilator 50.00 03/01/17 08:45 90 17 104/56 99 Mechanical Ventilator 50.00 03/01/17 08:43 Mechanical Ventilator 50 03/01/17 08:30 95 17 119/65 98 Mechanical Ventilator 50.00 03/01/17 08:20 86 21 96 55 03/01/17 08:15 89 14 115/64 95 Mechanical Ventilator 55.00 03/01/17 08:00 93 11 118/71 96 Mechanical Ventilator 55.00 03/01/17 07:45 95 16 111/66 94 Mechanical Ventilator 55.00 03/01/17 07:30 83 13 108/61 94 Mechanical Ventilator 55.00 03/01/17 07:17 79 03/01/17 07:15 74 16 106/66 92 Mechanical Ventilator 55.00 03/01/17 07:03 74 99/62 03/01/17 07:00 79 18 99/62 91 Mechanical Ventilator 55.00 03/01/17 06:45 77 15 104/63 92 Mechanical Ventilator 55.00 General Appearance: Other (sedated on vent ) HEENT: PERRL/EOMI, Other (ET tube in place) Neck: Normal Inspection, Supple Respiratory: No Accessory Muscle Use, No Respiratory Distress, Decreased Breath Sounds Cardiovascular: Regular Rate, Rhythm Capillary Refill: Less Than 3 Seconds Gastrointestinal: normal bowel sounds, non tender, soft Skin: Normal Color, Warm/Dry Lymphatic: No Adenopathy Results Lab Laboratory Tests 03/01/17 05:05 03/02/17 04:11 Assessment/Plan Assessment/Plan Acute on Chronic Respiratory Failure requiring ventilator therapy -Will start weaning ventilator (pt has 7.5 ET tube) -D/c sedation Pseudomonus pneumonia with severe sepsis -Continue Zosyn COPDAE -SVNs Hx of CHF -repeat BNP -Decrease IVF to 50cc/hr Obesity 255 Clinical Quality Measures DVT/VTE Risk/Contraindication: Risk Factor Score Per Nursin RFS Level Per Nursing on Admit: 4+=Very High PAUL HUGO DO Mar 02, 2017 06:46
[2017-03-02] MEDS: PIPERACILLIN/TAZOBACTAM 4.5 GM/NS 100 ML IVPB IV SCH ×6 (07:38→23:02)
--- NOTE | 2017-03-02 08:10 | Diagnostic Imaging Report ---
INDICATION: Shortness of breath. Comparison made to prior examination 03/01/2017. FINDINGS: There is cardiomegaly. There is some venous congestion. There is patchy bibasilar atelectasis and/or pneumonitis. There is no pleural effusion or pneumothorax. Lines and tubes are in satisfactory position. IMPRESSION: Patchy bibasilar atelectasis and/or pneumonitis. Cardiomegaly and mild central pulmonary venous congestion. Dictated by: Dictated on workstation # [id number]
[2017-03-02 08:49] LABS: ABG BASE EXCESS 8.2 MMOL/L (-2.5-2.5); ABG HCO3 34 MMOL/L (23-27); ABG OXYGEN SATURATION 96 % (94-100); ABG PCO2 59 MMHG (35-45); ABG PH 7.37 (7.37-7.43); ABG PO2 77 MMHG (79-93); ABG TCO2 35.5 MMOL/L (21.0-31.0); ALLENS TEST YES-POS; PATIENT TEMP 97.4
[2017-03-02] MEDS: PANTOPRAZOLE 40 MG/10 ML (PROTONIX) VIAL IV SCH ×2 (09:30→20:53)
[2017-03-02] MEDS ORDERED: FURO40TA4 PO (10:56)
[2017-03-02] MEDS ORDERED: CITA20TA7 PO (11:04)
[2017-03-02] MEDS ORDERED: ACYC400T PO (11:04)
[2017-03-02] MEDS ORDERED: FLUT16SP22 NS (11:11)
[2017-03-02] MEDS ORDERED: PRD10T PO (11:11)
[2017-03-02] MEDS ORDERED: ALB0.5V NEB (11:11)
[2017-03-02] MEDS ORDERED: IPRA3AMP NEB (11:11)
[2017-03-02] MEDS ORDERED: POTA20TA8 PO (11:11)
[2017-03-02] MEDS ORDERED: RT-ALBUINH INH (11:11)
[2017-03-02] MEDS ORDERED: TIOT18CA2 INH (11:11)
[2017-03-02] MEDS ORDERED: LORA0.5T PO (11:11)
[2017-03-02] MEDS ORDERED: IBUP-30 PO (11:12)
--- NOTE | 2017-03-02 11:44 | Progress Note (SOAP) ---
Subjective Subjective/Events-last exam Intubated this AM. Awake and answering Y/N questions. Denies pain. Revaluated at 1130am. Patient now extubated. States that he has some pain in Left upper abdomen. BM on the day he arrived, none since. Review of Systems Date Seen by Provider: Mar 02, 2017 Time Seen by Provider: 09:05 Objective Exam Last Set of Vital Signs Vital Signs Date Time Temp Pulse Resp B/P (MAP) Pulse Ox O2 Delivery O2 Flow Rate FiO2 03/02/17 11:00 Nasal Cannula 8.00 03/02/17 08:00 97.8 03/02/17 07:44 103 25 100 40 03/02/17 06:00 133/67 Capillary Refill : Less Than 3 Seconds I&O Intake and Output 03/03/17 00:00 Intake Total 1476 ml Output Total 2200 ml Balance -724 ml Intake Oral 0 ml IV Total 1476 ml Output Urine Total 1950 ml Gastric Drainage Total 250 ml General: Alert, Other (intubated, anxious on the vent) Lungs: Other (Wheezing and crackles, increased work of breathing on vent, Copious secretions in tube) Heart: Regular Rate, No Murmurs Abdomen: Soft, Other (+ distention, non tender, no masses) Extremities: No Edema, No Tenderness/Swelling Neuro: Other (answering Y/N questions appropriately) Results/Procedures Lab Laboratory Tests 03/01/17 12:28: Glucometer 144H 03/01/17 17:12: Glucometer 151H 03/02/17 00:17: Glucometer 111H 03/02/17 04:07: B-Type Natriuretic Peptide 37.6 03/02/17 04:11: White Blood Count 20.7H, Red Blood Count 3.66L, Hemoglobin 11.2L, Hematocrit 37L , Mean Corpuscular Volume 101H, Mean Corpuscular Hemoglobin 31, Mean Corpuscular Hemoglobin Concent 30L, Red Cell Distribution Width 13.9, Platelet Count 337, Mean Platelet Volume 10.9H, Neutrophils (%) (Auto) 89H, Lymphocytes ( %) (Auto) 4L, Monocytes (%) (Auto) 7, Eosinophils (%) (Auto) 0, Basophils (%) ( Auto) 0, Neutrophils # (Auto) 18.5H, Lymphocytes # (Auto) 0.8L, Monocytes # ( Auto) 1.5H, Eosinophils # (Auto) 0.0, Basophils # (Auto) 0.0, Sodium Level 139, Potassium Level 3.8, Chloride Level 100, Carbon Dioxide Level 29, Anion Gap 10, Blood Urea Nitrogen 22H, Creatinine 0.78, Estimat Glomerular Filtration Rate > 60, BUN/Creatinine Ratio 28, Glucose Level 110H, Calcium Level 9.1, Phosphorus Level 2.5, Magnesium Level 2.1 03/02/17 05:15: Blood Gas Puncture Site R RAD, Blood Gas Patient Temperature 96.2, Arterial Blood pH 7.39, Arterial Blood Partial Pressure CO2 54H, Arterial Blood Partial Pressure O2 71L, Arterial Blood HCO3 33H, Arterial Blood Total CO2 34.8H, Arterial Blood Oxygen Saturation 96, Arterial Blood Base Excess 7.8H, Harshal Test YES-POS, Blood Gas Ventilator Setting YES, Blood Gas Inspired Oxygen 45% 03/02/17 08:27: Blood Gas Puncture Site RT RAD, Blood Gas Patient Temperature 97.4, Arterial Blood pH 7.37, Arterial Blood Partial Pressure CO2 59H, Arterial Blood Partial Pressure O2 77L, Arterial Blood HCO3 34H, Arterial Blood Total CO2 35.5H, Arterial Blood Oxygen Saturation 96, Arterial Blood Base Excess 8.2H, Harshal Test YES-POS, Blood Gas Ventilator Setting YES, Blood Gas Inspired Oxygen 40% Microbiology 02/27/17 Blood Culture - Preliminary, Resulted Staph, Coag Neg (Float Tender) See Comments 02/27/17 MRSA Screen - Final, Complete MRSA not isolated Radiology Date of Exam: 02/28/17 CHEST 1 VIEW, AP/PA ONLY Portable chest compared to prior from February 27, 2017. INDICATION: Pneumonia. FINDINGS: Endotracheal tube and enteric tube appear unchanged. There are chronic interstitial changes present within the lungs with some superimposed interstitial and alveolar opacities at the lung bases, left greater than right suspect for superimposed pneumonia. There is no large effusion. There is no pneumothorax. IMPRESSION: 1. Life support apparatus appears appropriate in position. 2. Chronic interstitial lung disease with left greater than right basilar interstitial and alveolar opacities suspect for superimposed pneumonia. Assessment/Plan Assessment/Plan Plan RESPIRATORY FAILURE SEVERE SEPSIS (NOT SEPTIC SHOCK - BP WAS NOT LOW, LACTATE WNL) CHRONIC INTERSTITIAL LUNG DISEASE PSEUDOMONAS PNEUMONIA COPD ADM: Patient sedated and intubated, requiring high level ventilatory support. Appreciate eICU's assistance. WIll consult Dr Jacobs on Thursday as he is out of town this weekend. Due to septic shock, will change Rocephin and Doxy to ZOsyn, Vanc, and Levaquin. Will pare down as we get speciation/resistances back. On methylprednisone 125mg q6h and nebs as well. Treating with cautious IVF d/t history of CHF. needs tube feeds early as he is likely going to be on racheal vent for an extended period of time. 03/01: No improvement in ABG, will not wean vent today. turning O2 down as best we can - now at 50%. continue triple therapy for now. do not believe CONS in BC bottle is true infection. 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 Will order an ECHO and plan to consult cardiology on Thursday. BNP 16.8, so we have room for fluids. 10:15: echo tomorrow. CVP still reading low after 2L fluid bolus yesterday, UOP good. 03/02: Echo results pending, IVF adjusted by Dr Jacobs HYPERGLYCEMIA ADM: ICU SSI, will obtain a1c to see if h/o diabetes. 03/02: A1c 5.5, will continue to monitor blood sugars and use SSI, likely 2/2 to steroids and acute illness PROPH: PEPCID AND LOVENOX Clinical Quality Measures DVT/VTE Risk/Contraindication: Risk Factor Score Per Nursin RFS Level Per Nursing on Admit: 4+=Very High MICHELLE DON MD Mar 02, 2017 11:44
[2017-03-02] MEDS: ENOXAPARIN 40 MG/0.4 ML (LOVENOX) SYR SC SCH (17:36)
[2017-03-03] VITALS (33 sets, daily range): BP systolic 101–129; BP diastolic 49–76
[2017-03-03] MEDS: PROPOFOL DRIP (ICU) 100 ML IV SCH ×2 (00:31→08:29)
[2017-03-03] MEDS: fentaNYL INJECTION 100 MCG/2 ML AMP IVP PRN ×2 (00:50→05:15)
[2017-03-03] MEDS: RT-ALBUTEROL/IPRATROPIUM 3 ML (DUONEB) VIAL INH PRN (00:59)
[2017-03-03] MEDS: RT-ALBUTEROL/IPRATROPIUM 3 ML (DUONEB) VIAL INH SCH ×10 (02:47→21:31)
[2017-03-03 05:02] LABS: BASOPHILS % (AUTO) 0 % (0-10); EOSINOPHILS % (AUTO) 0 % (0-10); LYMPHOCYTES % (AUTO) 13 % (12-44); MEAN CORPUSCULAR HEMOGLOBIN 31 PG (25-34); MEAN CORPUSCULAR HGB CONC 30 G/DL (32-36); MEAN CORPUSCULAR VOLUME 102 FL (80-99); MEAN PLATELET VOLUME 11.2 FL (7.4-10.4); MONOCYTES # (AUTO) 1.5 X 10^3 (0.0-1.0); MONOCYTES % (AUTO) 10 % (0-12); NEUTROPHILS # (AUTO) 12.2 X 10^3 (1.8-7.8); NEUTROPHILS % (AUTO) 77 % (42-75); PLATELET COUNT 352 10^3/uL (130-400); RED CELL DISTRIBUTION WIDTH 14.1 % (10.0-14.5); WHITE BLOOD COUNT 15.8 10^3/uL (4.3-11.0)
[2017-03-03 05:17] LABS: ANION GAP 11 MMOL/L (5-14); BLOOD UREA NITROGEN 26 MG/DL (7-18); BUN/CREATININE RATIO 34; CALCIUM 8.8 MG/DL (8.5-10.1); CARBON DIOXIDE 30 MMOL/L (21-32); CHLORIDE 102 MMOL/L (98-107); CREATININE SERUM 0.76 MG/DL (0.60-1.30); GFR ESTIMATED > 60; GLUCOSE 74 MG/DL (70-105); PHOSPHORUS 1.4 MG/DL (2.3-4.7); POTASSIUM 3.5 MMOL/L (3.6-5.0); SODIUM 143 MMOL/L (135-145)
[2017-03-03] MEDS: POTASSIUM CL 10MEQ/50ML IVPB 50 ML IV SCH ×7 (05:39→11:52)
[2017-03-03] MEDS: MAGNESIUM 1 GM/100 ML IVPB 100 ML IV SCH (06:00)
[2017-03-03] MEDS: inSUlin (REGULAR) HUMAN 1 UNIT/0.01 ML (CHARGE PER UNIT) SC SCH ×4 (06:00→18:00)
[2017-03-03] MEDS ORDERED: FUROSEMIDE 40 MG/4 ML INJ (LASIX) IVP ONE (06:15)
[2017-03-03] MEDS ORDERED: KCL 20 MEQ TAB (K-DUR) PO SCH (06:15)
[2017-03-03] MEDS ORDERED: methylPREDNISolone 125 MG (Solu-MEDROL) VIAL IVP ONE (06:30)
[2017-03-03] MEDS ORDERED: RT-ALBUTEROL SULF 2.5 MG/3 ML PRE-MIX VIAL IH STA (06:33)
[2017-03-03] MEDS: CATHETER FLUSH 10 ML SYR IV SCH ×3 (06:39→21:01)
[2017-03-03] MEDS: CHLORHEXIDINE 0.12% SOLN 15 ML (PERIDEX) UDC PO SCH ×3 (06:39→22:37)
[2017-03-03] MEDS ORDERED: POTASSIUM CHLORIDE INJ 20 MEQ in NS IV 1000 ML 1,000 ML IV SCH (06:45)
--- NOTE | 2017-03-03 06:46 | Pulmonary Progress Note ---
Subjective Time Seen by Provider: 06:00 Subjective/Events-last exam Pt is having increased SOB and WOB. He has refused bipap through the night. After my discussion with him he is now willing to use BiPAP however he states he never wants to go back on ventilator. Exam Exam Vital Signs Date Time Temp Pulse Resp B/P (MAP) Pulse Ox O2 Delivery O2 Flow Rate FiO2 03/03/17 06:00 103 30 123/61 91 Vapotherm 70.00 25.00 03/03/17 05:00 110 27 114/64 91 Vapotherm 70.00 25.00 03/03/17 04:00 Vapotherm 20.00 70 03/03/17 04:00 99.0 108 10 112/76 94 Vapotherm 70.00 25.00 03/03/17 03:00 107 11 118/65 94 Vapotherm 50.00 20.00 03/03/17 02:47 91 Vapotherm 20.00 50 03/03/17 02:00 105 12 104/49 91 Vapotherm 50.00 20.00 03/03/17 01:15 105 13 92 Vapotherm 50.00 20.00 03/03/17 01:09 94 Vapotherm 25.00 50 03/03/17 01:00 103 12 112/58 95 High Flow N/C 7.00 03/03/17 01:00 103 03/03/17 00:59 91 Nasal Cannula 7.00 03/03/17 00:00 High Flow N/C 7.00 03/03/17 00:00 98.5 101 28 112/61 93 High Flow N/C 7.00 03/02/17 23:00 101 28 119/62 95 High Flow N/C 7.00 03/02/17 22:00 101 26 109/56 94 High Flow N/C 7.00 03/02/17 21:27 94 Nasal Cannula 7.00 03/02/17 21:00 99 19 131/72 93 High Flow N/C 7.00 03/02/17 20:00 98.5 94 26 116/59 92 High Flow N/C 7.00 03/02/17 20:00 High Flow N/C 7.00 03/02/17 19:31 95 Nasal Cannula 8.00 03/02/17 19:30 97 28 95 High Flow N/C 7.00 03/02/17 19:00 95 03/02/17 19:00 95 28 111/54 94 High Flow N/C 8.00 03/02/17 18:00 96 23 117/50 94 High Flow N/C 8.00 03/02/17 17:00 96 26 114/77 95 High Flow N/C 8.00 03/02/17 16:00 98.1 High Flow N/C 8.00 03/02/17 16:00 93 29 135/70 94 High Flow N/C 8.00 03/02/17 16:00 High Flow N/C 8.00 03/02/17 15:00 97 14 130/63 97 High Flow N/C 8.00 03/02/17 14:00 100 10 105/55 95 High Flow N/C 8.00 03/02/17 13:00 102 20 100/61 97 High Flow N/C 8.00 03/02/17 13:00 98 03/02/17 12:00 98 20 114/58 95 High Flow N/C 8.00 03/02/17 12:00 97.6 High Flow N/C 8.00 03/02/17 12:00 High Flow N/C 8.00 03/02/17 11:00 Nasal Cannula 8.00 03/02/17 11:00 105 15 116/62 96 High Flow N/C 8.00 03/02/17 10:00 105 30 118/68 92 High Flow N/C 8.00 03/02/17 09:30 High Flow N/C 8.00 03/02/17 09:00 107 23 108/69 94 Mechanical Ventilator 40.00 03/02/17 08:00 97.8 Mechanical Ventilator 40.00 03/02/17 08:00 Mechanical Ventilator 45 03/02/17 08:00 107 24 126/70 98 Mechanical Ventilator 40.00 03/02/17 07:44 103 25 100 40 03/02/17 07:00 92 03/02/17 07:00 92 03/02/17 07:00 87 23 131/77 97 Mechanical Ventilator 40.00 General Appearance: Moderate Distress HEENT: PERRL/EOMI Neck: Normal Inspection, Supple Respiratory: Accessory Muscle Use, Crackles, Decreased Breath Sounds, Respiratory Distress Cardiovascular: Regular Rate, Rhythm Capillary Refill: Less Than 3 Seconds Gastrointestinal: normal bowel sounds, non tender, soft Neurologic/Psychiatric: Alert, Oriented x3 Skin: Normal Color, Warm/Dry Lymphatic: No Adenopathy Results Lab Laboratory Tests 03/02/17 04:11 03/03/17 04:25 Assessment/Plan Assessment/Plan Acute on Chronic Respiratory Failure requiring ventilator therapy -Pt is requiring BiPAP now. -Will give 125mg of solumedrol IV X 1, Lasix 40meq X 1 -Easy PAP Q2- when not on BiPAP, SVN Q2 when on BiPAP -D/c sedation Pseudomonus pneumonia with severe sepsis -Continue Zosyn Atelectasis -IS Hypokalemia, hypophos -replace COPDAE -SVNs, Solumedrol Hx of CHF Obesity 60min of critical time spent with patient and medical team discussing current critical condition. Pt is now DNR. No intubation, No CODE blue per his wises. He never wants to go back on the ventilator again. Prognosis is guarded at this time. Clinical Quality Measures DVT/VTE Risk/Contraindication: Risk Factor Score Per Nursin RFS Level Per Nursing on Admit: 4+=Very High PAUL HUGO DO Mar 03, 2017 06:46
[2017-03-03] MEDS ORDERED: SODIUM PHOSPHATE INJ 30 MM in NS (IVPB) 250 ML IV NR (07:01)
[2017-03-03] MEDS ORDERED: RT-ALBUTEROL/IPRATROPIUM 3 ML (DUONEB) VIAL INH PRN (07:15)
[2017-03-03] MEDS: NS W/KCL 20 MEQ/L 1,000 ML IV SCH ×2 (07:31→18:48)
[2017-03-03] MEDS: PIPERACILLIN/TAZOBACTAM 4.5 GM/NS 100 ML IVPB IV SCH ×6 (07:32→23:18)
[2017-03-03] MEDS: KCL 20 MEQ TAB (K-DUR) PO SCH (08:29)
--- NOTE | 2017-03-03 08:54 | Diagnostic Imaging Report ---
INDICATION: Followup. Pneumonia. Recent intubation. COMPARISON: 03/02/2017 FINDINGS: Single frontal radiographic view of the chest was obtained and demonstrates interval extubation and removal of enteric tube. Left internal jugular central venous catheter remains with tip in the high SVC. Cardiac silhouette is prominent. Pulmonary vasculature is moderately congestion. This has progressed. There has also been interval development of diffuse interstitial opacities. Small left effusion cannot be excluded. There are some patchy left basilar opacities. There is no pneumothorax. Bony structures show no gross abnormalities. IMPRESSION: 1. Interval progression of pulmonary vascular congestion and likely development of interstitial pulmonary edema. 2. Cardiomegaly. 3. Possible left effusion with associated atelectasis. Dictated by: Dictated on workstation # [id number]
[2017-03-03] MEDS: PANTOPRAZOLE 40 MG/10 ML (PROTONIX) VIAL IV SCH ×2 (09:10→21:01)
--- NOTE | 2017-03-03 10:33 | Progress Note (SOAP) ---
Subjective Subjective/Events-last exam Patient on Bipap this AM. Answers questions appropriately. Denies any pain. States that he feels like he is breathing better this AM then he was last night. Feels very anxious on Bipap. Denies chest pain, abdominal pain. Review of Systems Date Seen by Provider: Mar 03, 2017 Time Seen by Provider: 09:45 Objective Exam Last Set of Vital Signs Vital Signs Date Time Temp Pulse Resp B/P (MAP) Pulse Ox O2 Delivery O2 Flow Rate FiO2 03/03/17 08:08 100 24 97 60.00 03/03/17 08:00 98.7 NIV Bilevel 03/03/17 08:00 80 03/03/17 06:00 123/61 Capillary Refill : Less Than 3 Seconds I&O Intake and Output 03/04/17 00:00 Intake Total 590 ml Output Total 575 ml Balance 15 ml Intake Oral 0 ml IV Total 590 ml Output Urine Total 575 ml General: Alert, Cooperative, Moderate Distress Lungs: Other (+ diffuse crackles and end exp wheezing, + accessory muscle use) Abdomen: Normal Bowel Sounds, Soft, No Tenderness, No Masses Extremities: No Edema, No Tenderness/Swelling Psych/Mental Status: Other (Anxious with bipap on) Results/Procedures Lab Laboratory Tests 03/02/17 12:47: Glucometer 86 03/02/17 17:42: Glucometer 80 03/03/17 00:07: Glucometer 76 03/03/17 04:25: White Blood Count 15.8H, Red Blood Count 3.70L, Hemoglobin 11.3L, Hematocrit 38L , Mean Corpuscular Volume 102H, Mean Corpuscular Hemoglobin 31, Mean Corpuscular Hemoglobin Concent 30L, Red Cell Distribution Width 14.1, Platelet Count 352, Mean Platelet Volume 11.2H, Neutrophils (%) (Auto) 77H, Lymphocytes ( %) (Auto) 13, Monocytes (%) (Auto) 10, Eosinophils (%) (Auto) 0, Basophils (%) ( Auto) 0, Neutrophils # (Auto) 12.2H, Lymphocytes # (Auto) 2.0, Monocytes # (Auto ) 1.5H, Eosinophils # (Auto) 0.0, Basophils # (Auto) 0.0, Sodium Level 143, Potassium Level 3.5L, Chloride Level 102, Carbon Dioxide Level 30, Anion Gap 11 , Blood Urea Nitrogen 26H, Creatinine 0.76, Estimat Glomerular Filtration Rate > 60, BUN/Creatinine Ratio 34, Glucose Level 74, Calcium Level 8.8, Phosphorus Level 1.4L, Magnesium Level 2.0 Microbiology 02/27/17 Blood Culture - Preliminary, Resulted Staph, Coag Neg (Database Administrator) See Comments 02/27/17 MRSA Screen - Final, Complete MRSA not isolated Radiology Date of Exam: 02/28/17 CHEST 1 VIEW, AP/PA ONLY Portable chest compared to prior from February 27, 2017. INDICATION: Pneumonia. FINDINGS: Endotracheal tube and enteric tube appear unchanged. There are chronic interstitial changes present within the lungs with some superimposed interstitial and alveolar opacities at the lung bases, left greater than right suspect for superimposed pneumonia. There is no large effusion. There is no pneumothorax. IMPRESSION: 1. Life support apparatus appears appropriate in position. 2. Chronic interstitial lung disease with left greater than right basilar interstitial and alveolar opacities suspect for superimposed pneumonia. Assessment/Plan Assessment/Plan Plan RESPIRATORY FAILURE SEVERE SEPSIS (NOT SEPTIC SHOCK - BP WAS NOT LOW, LACTATE WNL) CHRONIC INTERSTITIAL LUNG DISEASE PSEUDOMONAS PNEUMONIA COPD ADM: Patient sedated and intubated, requiring high level ventilatory support. Appreciate eIC's assistance. WIll consult Dr Jacobs on Thursday as he is out of town this . Due to septic shock, will change Rocephin and Doxy to ZOsyn, Vanc, and Levaquin. Will pare down as we get speciation/resistances back. On methylprednisone 125mg q6h and nebs as well. Treating with cautious IVF d/t history of CHF. needs tube feeds early as he is likely going to be on racheal vent for an extended period of time. 03/01: No improvement in ABG, will not wean vent today. turning O2 down as best we can - now at 50%. continue triple therapy for now. do not believe CONS in BC bottle is true infection. 03/02: Extubated, D/c Vanc and Levaquin due to culture report 03/03: Vapotherm and Bipap, discussed adding ativan for anxiety while on bipap, patient decided to be DNR, family on board HISTORY OF CHF ADM: Patient has reported history but has not seen a carpenter repairer. Will order an ECHO and plan to consult cardiology on Thursday. BNP 16.8, so we have room for fluids. 10:15: echo tomorrow. CVP still reading low after 2L fluid bolus yesterday, UOP good. 03/02: Echo results pending, IVF adjusted by Dr Jacobs HYPERGLYCEMIA ADM: ICU SSI, will obtain a1c to see if h/o diabetes. 03/02: A1c 5.5, will continue to monitor blood sugars and use SSI, likely 2/2 to steroids and acute illness PROPH: PEPCID AND LOVENOX Continue admission in ICU Clinical Quality Measures DVT/VTE Risk/Contraindication: Risk Factor Score Per Nursin RFS Level Per Nursing on Admit: 4+=Very High MICHELLE DON MD Mar 03, 2017 10:33
[2017-03-03] MEDS ORDERED: ACETAMINOPHEN 500 MG TAB (TYLENOL) PO PRN (10:45)
[2017-03-03] MEDS: methylPREDNISolone 40 MG/ML (Solu-MEDROL) VIAL IV SCH ×2 (11:52→18:47)
[2017-03-03] MEDS: ENOXAPARIN 40 MG/0.4 ML (LOVENOX) SYR SC SCH (15:18)
[2017-03-03] MEDS: LORazepam 0.5 MG (ATIVAN) TABLET PO PRN ×2 (15:18→22:38)
[2017-03-04] VITALS (27 sets, daily range): BP systolic 95–148; BP diastolic 50–100
[2017-03-04] MEDS: methylPREDNISolone 40 MG/ML (Solu-MEDROL) VIAL IV SCH ×5 (00:09→23:40)
[2017-03-04] MEDS: RT-ALBUTEROL/IPRATROPIUM 3 ML (DUONEB) VIAL INH SCH ×11 (02:06→22:33)
[2017-03-04 04:29] LABS: ABG BASE EXCESS 9.3 MMOL/L (-2.5-2.5); ABG HCO3 34 MMOL/L (23-27); ABG OXYGEN SATURATION 98 % (94-100); ABG PCO2 55 MMHG (35-45); ABG PH 7.41 (7.37-7.43); ABG PO2 97 MMHG (79-93)
[2017-03-04 04:30] LABS: ALLENS TEST YES-POS
[2017-03-04 04:31] LABS: PATIENT TEMP 97.7
[2017-03-04 04:41] LABS: BASOPHILS % (AUTO) 0 % (0-10); EOSINOPHILS % (AUTO) 0 % (0-10); LYMPHOCYTES # (AUTO) 1.1 X 10^3 (1.0-4.0); LYMPHOCYTES % (AUTO) 7 % (12-44); MEAN CORPUSCULAR HEMOGLOBIN 31 PG (25-34); MEAN CORPUSCULAR HGB CONC 31 G/DL (32-36); MEAN CORPUSCULAR VOLUME 101 FL (80-99); MEAN PLATELET VOLUME 11.3 FL (7.4-10.4); MONOCYTES # (AUTO) 0.7 X 10^3 (0.0-1.0); MONOCYTES % (AUTO) 5 % (0-12); NEUTROPHILS # (AUTO) 13.9 X 10^3 (1.8-7.8); NEUTROPHILS % (AUTO) 88 % (42-75); PLATELET COUNT 338 10^3/uL (130-400); RED BLOOD COUNT 3.69 10^6/uL (4.35-5.85); RED CELL DISTRIBUTION WIDTH 13.8 % (10.0-14.5); WHITE BLOOD COUNT 15.7 10^3/uL (4.3-11.0)
[2017-03-04 04:56] LABS: BAND NEUTROPHILS 0 %; BASOPHILS % (MANUAL) 0 %; EOSINOPHILS % (MANUAL) 0 %; LYMPHOCYTES % (MANUAL) 6 %; NEUTROPHILS % (MANUAL) 89 %
[2017-03-04 04:58] LABS: ANION GAP 11 MMOL/L (5-14); BLOOD UREA NITROGEN 33 MG/DL (7-18); BUN/CREATININE RATIO 43; CALCIUM 8.9 MG/DL (8.5-10.1); CARBON DIOXIDE 31 MMOL/L (21-32); CHLORIDE 100 MMOL/L (98-107); CREATININE SERUM 0.76 MG/DL (0.60-1.30); GFR ESTIMATED > 60; GLUCOSE 129 MG/DL (70-105); MAGNESIUM 2.2 MG/DL (1.8-2.4); POTASSIUM 4.3 MMOL/L (3.6-5.0); SODIUM 142 MMOL/L (135-145)
[2017-03-04] MEDS: POTASSIUM CL 10MEQ/50ML IVPB 50 ML IV SCH (06:00)
[2017-03-04] MEDS: KCL 20 MEQ TAB (K-DUR) PO SCH (06:00)
[2017-03-04] MEDS: MAGNESIUM 1 GM/100 ML IVPB 100 ML IV SCH (06:00)
[2017-03-04] MEDS: inSUlin (REGULAR) HUMAN 1 UNIT/0.01 ML (CHARGE PER UNIT) SC SCH ×3 (06:00→12:19)
[2017-03-04] MEDS: CATHETER FLUSH 10 ML SYR IV SCH ×3 (06:18→21:24)
[2017-03-04] MEDS: CHLORHEXIDINE 0.12% SOLN 15 ML (PERIDEX) UDC PO SCH ×2 (06:22→15:06)
--- NOTE | 2017-03-04 06:39 | Pulmonary Progress Note ---
Subjective Time Seen by Provider: 06:48 Subjective/Events-last exam Pt is doing better today. He did require BiPAP through the night. Exam Exam Vital Signs Date Time Temp Pulse Resp B/P (MAP) Pulse Ox O2 Delivery O2 Flow Rate FiO2 03/04/17 06:00 100 26 90 NIV Bilevel 40.00 03/04/17 05:00 81 18 105/68 95 NIV Bilevel 40.00 03/04/17 04:00 90 18 129/100 97 NIV Bilevel 40.00 03/04/17 04:00 97.7 03/04/17 04:00 NIV Bilevel 40 03/04/17 03:55 68 16 93 40.00 03/04/17 03:00 64 28 125/59 92 NIV Bilevel 40.00 03/04/17 02:07 76 20 96 40.00 03/04/17 02:00 70 24 101/54 91 NIV Bilevel 40.00 03/04/17 01:00 73 20 107/50 93 NIV Bilevel 40.00 03/04/17 01:00 73 03/04/17 00:01 90 24 95 40.00 03/04/17 00:00 98.9 86 15 117/73 95 NIV Bilevel 40.00 03/04/17 00:00 NIV Bilevel 40 03/03/17 23:00 105 28 112/61 91 NIV Bilevel 40.00 03/03/17 22:00 85 22 120/63 95 NIV Bilevel 40.00 03/03/17 21:32 80 19 95 40.00 03/03/17 21:00 75 17 116/62 94 NIV Bilevel 40.00 03/03/17 20:02 NIV Bilevel 40 03/03/17 20:00 98.6 86 20 120/65 94 NIV Bilevel 40.00 03/03/17 19:34 101 20 93 40.00 03/03/17 19:00 87 11 123/63 95 NIV Bilevel 40.00 03/03/17 19:00 87 03/03/17 18:00 89 15 122/66 94 NIV Bilevel 40.00 03/03/17 17:59 80 21 92 40.00 03/03/17 17:00 81 19 109/59 94 NIV Bilevel 40.00 03/03/17 16:16 85 17 94 40.00 03/03/17 16:00 86 18 101/68 92 NIV Bilevel 40.00 03/03/17 16:00 98.7 NIV Bilevel 40.00 03/03/17 16:00 NIV Bilevel 40 03/03/17 15:00 90 28 114/65 93 NIV Bilevel 40.00 03/03/17 15:00 NIV Bilevel 40.00 03/03/17 14:44 92 22 97 40.00 03/03/17 14:00 91 25 108/62 96 NIV Bilevel 60.00 03/03/17 13:00 92 03/03/17 13:00 92 32 105/63 96 NIV Bilevel 60.00 03/03/17 12:22 95 23 96 60.00 03/03/17 12:00 98.1 NIV Bilevel 60.00 03/03/17 12:00 NIV Bilevel 60 03/03/17 12:00 93 26 110/55 94 NIV Bilevel 60.00 03/03/17 11:00 101 10 103/67 95 NIV Bilevel 60.00 03/03/17 10:30 102 30 94 60.00 03/03/17 10:00 99 20 123/55 96 NIV Bilevel 60.00 03/03/17 09:00 106 13 118/61 93 NIV Bilevel 60.00 03/03/17 08:08 100 24 97 60.00 03/03/17 08:00 98.7 NIV Bilevel 60.00 03/03/17 08:00 104 24 119/59 96 NIV Bilevel 60.00 03/03/17 08:00 NIV Bilevel 60 03/03/17 07:00 108 03/03/17 07:00 108 18 129/49 98 Vapotherm 70.00 25.00 03/03/17 06:47 106 19 98 80.00 General Appearance: Moderate Distress HEENT: PERRL/EOMI Neck: Normal Inspection, Supple Respiratory: Accessory Muscle Use, Crackles, Decreased Breath Sounds, Respiratory Distress, Wheezing Cardiovascular: Regular Rate, Rhythm Capillary Refill: Less Than 3 Seconds Gastrointestinal: normal bowel sounds, non tender, soft Neurologic/Psychiatric: Alert, Oriented x3 Skin: Normal Color, Warm/Dry Lymphatic: No Adenopathy Results Lab Laboratory Tests 03/03/17 04:25 03/04/17 04:22 Assessment/Plan Assessment/Plan Acute on Chronic Respiratory Failure requiring ventilator therapy -BiPAP PRN -Will give 125mg of solumedrol IV X 1, Lasix 40meq X 1 -Easy PAP Q2- when not on BiPAP, SVN Q2 when on BiPAP Pseudomonus pneumonia with severe sepsis -Continue Zosyn Atelectasis -IS and easy PAP -Increase activity COPDAE -SVNs Q 2 , Solumedrol Hx of CHF -Echocardiogram Obesity Consult PT/OT 233 Clinical Quality Measures DVT/VTE Risk/Contraindication: Risk Factor Score Per Nursin RFS Level Per Nursing on Admit: 4+=Very High PAUL HUGO DO Mar 04, 2017 06:39
[2017-03-04] MEDS ORDERED: FUROSEMIDE 40 MG/4 ML INJ (LASIX) ONE (06:42)
[2017-03-04] MEDS ORDERED: methylPREDNISolone 125 MG (Solu-MEDROL) VIAL ONE (06:42)
[2017-03-04] MEDS ORDERED: methylPREDNISolone 125 MG (Solu-MEDROL) VIAL IVP NR (06:51)
[2017-03-04] MEDS ORDERED: KCL 20 MEQ TAB (K-DUR) PO NR (06:51)
[2017-03-04] MEDS ORDERED: FUROSEMIDE 40 MG/4 ML INJ (LASIX) IVP NR (06:51)
--- NOTE | 2017-03-04 07:32 | Diagnostic Imaging Report ---
EXAM: CHEST 1 VIEW, AP/PA ONLY INDICATION: Pneumonia. ICU care management. COMPARISON: Chest radiograph 03/03/2017. FINDINGS: Stable cardiomegaly and pulmonary venous congestion. Probable small left pleural effusion. Low lung volumes. Left IJ CVC tip mid SVC. Calcified aorta. IMPRESSION: Stable examination including cardiomegaly with pulmonary venous congestion. Small left pleural effusion. Dictated by: Dictated on workstation # [id number]
[2017-03-04] MEDS: PIPERACILLIN/TAZOBACTAM 4.5 GM/NS 100 ML IVPB IV SCH ×6 (07:45→23:40)
[2017-03-04] MEDS: DOCUSATE SODIUM 100 MG (COLACE) CAP PO SCH ×2 (09:13→19:27)
[2017-03-04] MEDS: PANTOPRAZOLE 40 MG/10 ML (PROTONIX) VIAL IV SCH ×2 (09:13→21:24)
--- NOTE | 2017-03-04 10:03 | Progress Note (SOAP) ---
Subjective Subjective/Events-last exam Patient states that he is feeling better this AM. On Vapotherm. Still having shortness of breath but improved. BM this AM that was easy to pass. Denies chest pain, abdominal pain, N/V Review of Systems Date Seen by Provider: Mar 04, 2017 Time Seen by Provider: 09:45 Objective Exam Last Set of Vital Signs Vital Signs Date Time Temp Pulse Resp B/P (MAP) Pulse Ox O2 Delivery O2 Flow Rate FiO2 03/04/17 08:00 98 19 108/62 92 03/04/17 07:07 Vapotherm 20.00 60 03/04/17 04:00 97.7 Capillary Refill : Less Than 3 Seconds I&O Intake and Output 03/05/17 00:00 Intake Total 370 ml Output Total 400 ml Balance -30 ml Intake Oral 275 ml IV Total 95 ml Output Urine Total 400 ml # Bowel Movements 1 General: Alert, Mild Distress Lungs: Other (Crackles and diffuse wheezing, mild distress with pursed lips during expiration) Heart: Regular Rate, No Murmurs Abdomen: Soft, No Tenderness Extremities: No Tenderness/Swelling Skin: No Rashes, No Breakdown Neuro: Normal Speech, Sensation Intact, Other (Moving all 4 extremities) Results/Procedures Lab Laboratory Tests 03/03/17 18:02: Glucometer 122H 03/03/17 23:57: Glucometer 132H 03/04/17 04:22: White Blood Count 15.7H, Red Blood Count 3.69L, Hemoglobin 11.4L, Hematocrit 37L , Mean Corpuscular Volume 101H, Mean Corpuscular Hemoglobin 31, Mean Corpuscular Hemoglobin Concent 31L, Red Cell Distribution Width 13.8, Platelet Count 338, Mean Platelet Volume 11.3H, Neutrophils (%) (Auto) 88H, Lymphocytes ( %) (Auto) 7L, Monocytes (%) (Auto) 5, Eosinophils (%) (Auto) 0, Basophils (%) ( Auto) 0, Neutrophils # (Auto) 13.9H, Lymphocytes # (Auto) 1.1, Monocytes # (Auto ) 0.7, Eosinophils # (Auto) 0.0, Basophils # (Auto) 0.0, Neutrophils % (Manual) 89, Lymphocytes % (Manual) 6, Monocytes % (Manual) 5, Eosinophils % (Manual) 0, Basophils % (Manual) 0, Band Neutrophils 0, Macrocytosis SLIGHT, Blood Gas Puncture Site R RAD, Blood Gas Patient Temperature 97.7, Arterial Blood pH 7.41 , Arterial Blood Partial Pressure CO2 55H, Arterial Blood Partial Pressure O2 97H, Arterial Blood HCO3 34H, Arterial Blood Total CO2 36.0H, Arterial Blood Oxygen Saturation 98, Arterial Blood Base Excess 9.3H, Harshal Test YES-POS, Blood Gas Ventilator Setting NO, Blood Gas Inspired Oxygen 40% BIPAP, Sodium Level 142, Potassium Level 4.3, Chloride Level 100, Carbon Dioxide Level 31, Anion Gap 11, Blood Urea Nitrogen 33H, Creatinine 0.76, Estimat Glomerular Filtration Rate > 60, BUN/Creatinine Ratio 43, Glucose Level 129H, Calcium Level 8.9, Phosphorus Level 3.0, Magnesium Level 2.2, B-Type Natriuretic Peptide 179.5H Microbiology 02/27/17 Blood Culture - Preliminary, Resulted Staph, Coag Neg (Transport Tech) See Comments 02/27/17 MRSA Screen - Final, Complete MRSA not isolated Radiology Date of Exam: 02/28/17 CHEST 1 VIEW, AP/PA ONLY Portable chest compared to prior from February 27, 2017. INDICATION: Pneumonia. FINDINGS: Endotracheal tube and enteric tube appear unchanged. There are chronic interstitial changes present within the lungs with some superimposed interstitial and alveolar opacities at the lung bases, left greater than right suspect for superimposed pneumonia. There is no large effusion. There is no pneumothorax. IMPRESSION: 1. Life support apparatus appears appropriate in position. 2. Chronic interstitial lung disease with left greater than right basilar interstitial and alveolar opacities suspect for superimposed pneumonia. Assessment/Plan Assessment/Plan Plan RESPIRATORY FAILURE SEVERE SEPSIS (NOT SEPTIC SHOCK - BP WAS NOT LOW, LACTATE WNL) CHRONIC INTERSTITIAL LUNG DISEASE PSEUDOMONAS PNEUMONIA COPD ADM: Patient sedated and intubated, requiring high level ventilatory support. Appreciate [facility]'s assistance. WIll consult Dr Jacobs on Thursday as he is out of town this weekend. Due to septic shock, will change Rocephin and Doxy to ZOsyn, Vanc, and Levaquin. Will pare down as we get speciation/resistances back. On methylprednisone 125mg q6h and nebs as well. Treating with cautious IVF d/t history of CHF. needs tube feeds early as he is likely going to be on racheal vent for an extended period of time. 03/01: No improvement in ABG, will not wean vent today. turning O2 down as best we can - now at 50%. continue triple therapy for now. do not believe CONS in BC bottle is true infection. 03/02: Extubated, D/c Vanc and Levaquin due to culture report 03/03: Vapotherm and Bipap, discussed adding ativan for anxiety while on bipap, patient decided to be DNR, family on board 03/04: Vapotherm this AM, Lasix and steroids given by Dr Jacobs, patient put out 900 cc so far HISTORY OF CHF ADM: Patient has reported history but has not seen a [facility] consultant. Will order an ECHO and plan to consult cardiology on Thursday. BNP 16.8, so we have room for fluids. 10:15: echo tomorrow. CVP still reading low after 2L fluid bolus yesterday, UOP good. 03/02: Echo results pending, IVF adjusted by Dr Jacobs HYPERGLYCEMIA ADM: ICU SSI, will obtain a1c to see if h/o diabetes. 03/02: A1c 5.5, will continue to monitor blood sugars and use SSI, likely 2/2 to steroids and acute illness DEBILITY 03/04: PT seeing patient, increase activity today PROPH: PEPCID AND LOVENOX Continue admission in ICU Clinical Quality Measures DVT/VTE Risk/Contraindication: Risk Factor Score Per Nursin RFS Level Per Nursing on Admit: 4+=Very High MICHELLE DON MD Mar 04, 2017 10:03
--- NOTE | 2017-03-04 11:54 | Physical Therapy Evaluation ---
PT Evaluation-General Medical Diagnosis Admission Date Feb 27, 2017 at 20:35 Medical Diagnosis: Resp Distress; septic shock Onset Date: Feb 27, 2017 Therapy Diagnosis Therapy Diagnosis: weakness; abn gait Height/Weight Height (Feet): 5 Height (Inches): 8.00 Weight (Pounds): 266 Weight (Ounces): 8.0 Precautions Precautions/Isolations: Contact Isolation, Fall Prevention, Pressure Ulcer Referral Physician: Arlene Reason for Referral: Evaluation/Treatment Medical History Pertinent Medical History: COPD Additional Medical History LE wounds MRSA (+) Current History Pt was at routine check up and found to be in respiratory distress; admitted for medical care. Reviewed History: Yes Social History Home: Single Level (Trailer) Current Living Status: Spouse Entry Into Home: Stairs With Railing Prior/Core FIM Prior Level of Function Functional [place] Measure 0=Not Assessed/NA 4=Minimal Assistance 1=Total Assistance 5=Supervision or Setup 2=Maximal Assistance 6=Modified [place] 3=Moderate Assistance 7=Complete [place] Bed Mobility: 6 Transfers (B,C,W/C) (FIM): 6 Gait: 6 Pt reports he is able to ambulate community distances and still drives. PT Evaluation-Current Subjective Agreeable. Wants to sit up on EOB. Pain Numeric Pain Scale: 0-No Pain Location: No Pain Reported Objective Patient Orientation: Person, Place, Time, Situation Problem Solving: Good Attachments: SCD's, Oxygen, [place] Catheter, IV ROM/Strength ROM Lower Extremities WFL Strength Lower Extremities Grossly 4/5 B LE's Integumentary/Posture Integumentary Refer to nursing notes. Bowel Incontinence: No Bladder Incontinence: Arteaga Cath Posture symmetrical Neuromuscular (Tone, Coordination, Reflexes) WFL Sensory Vision: Functional Hearing: Functional Hand Dominance: Right Sensation Right Lower Extremit: Intact Sensation Left Lower Extremity: Intact Transfers Functional [place] Measure 0=Not Assessed/NA 4=Minimal Assistance 1=Total Assistance 5=Supervision or Setup 2=Maximal Assistance 6=Modified [place] 3=Moderate Assistance 7=Complete [place] Transfers (B, C, W/C) (FIM): 4 Supine to from sit with min assist and cues to sequence; sitting EOB, pt able to partially stand and scoot his buttock up towards the head of the bed, he did this 3 times. Gait Mode of Locomotion: Walk Comments/Gait Description Pt did not walk this visit. Balance Sitting Static: Good Sitting Dynamic: Good Treatment Sat EOB; scooted towards HOB from seated position. Performed light LE exercise such as LAQ, AP and heel raises to promote LE circulation. Assessment/Needs Post admission due to respiratory distress. Pt did fairly well with transfer and sitting eOB; he needslight assist but for the most part able to perform bed mobilty with little to no assist. He will benefit from PT intervnetion to work on functional strength andmobility progression to return to his PLOF. Rehab Potential: Good PT Welt Wheeler Goals Welt Wheeler Goals PT Welt Wheeler Goals Time Frame: Mar 09, 2017 Transfers (B,C,W/C) (FIM): 6 Gait (FIM): 6 Gait distance (FIM): 3=150 ft Gait Assistive Device: FWW PT Plan Problem List Problem List: Activity Tolerance, Functional Strength, Safety, Balance, Gait, Transfer, Bed Mobility Treatment/Plan Treatment Plan: Continue Plan of Care Treatment Plan: Bed Mobility, Education, Functional Activity Taya, Functional Strength, Gait, Safety, Therapeutic Exercise, Transfers Treatment Duration: Mar 09, 2017 Frequency: 6 times per week Estimated Hrs Per Day: .25 hour per day Patient and/or Family Agrees t: Yes Safety Risks/Education Patient Education: Transfer Techniques Teaching Recipient: Patient Teaching Methods: Demonstration, Discussion Response to Teaching: Reinforcement Needed Discharge Recommendations Therapy D/C Recommendations: Physical Therapy Home Care Time/GCodes Time In: 1010 Time Out: 1035 Total Billed Treatment Time: 25 Total Billed Treatment visit EVM 25 MIRIAN PAIZ PT Mar 04, 2017 11:54
[2017-03-04] MEDS: ENOXAPARIN 40 MG/0.4 ML (LOVENOX) SYR SC SCH (15:10)
[2017-03-04] MEDS: LORazepam 0.5 MG (ATIVAN) TABLET PO PRN ×2 (16:17→21:24)
--- NOTE | 2017-03-04 16:59 | Occupational Therapy Eval ---
OT Evaluation-General/PLF Medical Diagnosis Admission Date Feb 27, 2017 at 20:35 Medical Diagnosis: Resp Distress; septic shock Onset Date: Feb 27, 2017 Therapy Diagnosis Therapy Diagnosis: decr self care, decr activ niru, decr funct mobility, decr strength Height/Weight Height (Feet): 5 Height (Inches): 8.00 Weight (Pounds): 266 Weight (Ounces): 8.0 Precautions Precautions/Isolations: Contact Isolation (MRSA), Fall Prevention, Pressure Ulcer Safety Interventions: Reorient-PRN Referral Physician: Arlene Referral Reason: Evaluation/Treatment Medical History Pertinent Medical History: COPD, Smoking Additional Medical History Hx CHF, COPD. Chronic LE edema. Obese. Poor dentition. Been on vent in the past Current History Admitted with respiratory distress and placed on ventilator until 10-16. Reviewed History: Yes Social History Home: Single Level (Trailer) Current Living Status: Spouse Entry Into Home: Stairs With Railing ADL-Prior Level of Function ADL PLOF Comments Pt reported that was able to manage most of his basic ADLs at home. His helped him put on his shoes and socks - he could do it but it took a lot of energy. He could get on/off toilet and manage clothing and hygiene, with some difficulty. His helped him with his bath. 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 Pt reported pain 0/10 Appearance Alert, cooperative. Able to say about 5 words per breath and used pursed lip breathing throughout Mental Status/Objective Attachments: [place] Catheter, IV, Oxygen, SCD's, Telemetry Current Glasses/Contacts: Yes Hearing Aids: No Hand Dominance: Right Upper Extremity ROM Grossly WFL bilat Upper Extremity Strength grossly 4/5 bilat Edema: No UE edema observed ADL-Treatment ADL-Current Pt reported that he had been up to use BSC with assistance. Discussed family bringing clothes in for ADLs Functional [place] Measure 0=Not Assessed/NA 4=Minimal Assistance 1=Total Assistance 5=Supervision or Setup 2=Maximal Assistance 6=Modified [place] 3=Moderate Assistance 7=Complete IndependenceIRFPAI Quality Coding Scale 6 Independent with activity with or without an assistive device 5 Patient requires set up or clean up by helper. Patient completes activity by themselves 4 Supervision or touching assist (CGA). [place] provide cues , steadying assist 3 The helper provides less than half the effort to complete the activity 2 The helper provides more than half the effort to complete the activity 1 Dependent. 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 2=Patient will verbalize/demonstrate understanding of assistive devices/ modifications for ADL. 3=Patient will improve strength/tolerance for activity to enable patient to perform ADL's. OT Education/Plan Problem List/Assessment Assessment: Decreased Activ Tolerance, Decreased UE Strength, Impaired Funct Balance, Impaired Self-Care Skills Pt would benefit from skilled OT to increase his independence in basic self care to allow him to safely return to his home to live with family and to decrease caregiver burden Discharge Recommendations Plan/Recommendations: Continue POC Treatment Plan/Plan of Care Treatment,Training & Education: Yes Patient would benefit from OT for education, treatment and training to promote independence in ADL's, mobility, safety and/or upper extremity function for ADL' s. Plan of Care: ADL Retraining, Functional Mobility, UE Funct Exercise/Act Treatment Duration: Mar 13, 2017 Frequency: 5 times per week Estimated Hrs Per Day: .25 hour per day Agreement: Yes Rehab Potential: Good Time/GCodes Start Time: 15:35 Stop Time: 15:50 Total Time Billed (hr/min): 15 Billed Treatment Time visit, 15 minutes evaluation moderate intensity JUSTICE WADE OT Mar 04, 2017 16:59
[2017-03-05] VITALS (30 sets, daily range): BP systolic 90–135; BP diastolic 60–109
[2017-03-05] MEDS: RT-ALBUTEROL/IPRATROPIUM 3 ML (DUONEB) VIAL INH SCH ×11 (00:18→22:44)
[2017-03-05 04:44] LABS: BASOPHILS % (AUTO) 0 % (0-10); EOSINOPHILS % (AUTO) 0 % (0-10); LYMPHOCYTES # (AUTO) 1.2 X 10^3 (1.0-4.0); LYMPHOCYTES % (AUTO) 7 % (12-44); MEAN CORPUSCULAR HEMOGLOBIN 30 PG (25-34); MEAN CORPUSCULAR HGB CONC 30 G/DL (32-36); MEAN CORPUSCULAR VOLUME 101 FL (80-99); MONOCYTES # (AUTO) 1.1 X 10^3 (0.0-1.0); MONOCYTES % (AUTO) 6 % (0-12); NEUTROPHILS # (AUTO) 15.5 X 10^3 (1.8-7.8); NEUTROPHILS % (AUTO) 87 % (42-75); PLATELET COUNT 369 10^3/uL (130-400); RED BLOOD COUNT 3.88 10^6/uL (4.35-5.85); RED CELL DISTRIBUTION WIDTH 13.7 % (10.0-14.5); WHITE BLOOD COUNT 17.7 10^3/uL (4.3-11.0)
[2017-03-05 05:17] LABS: ANION GAP 10 MMOL/L (5-14); BLOOD UREA NITROGEN 38 MG/DL (7-18); BUN/CREATININE RATIO 51; CALCIUM 9.1 MG/DL (8.5-10.1); CARBON DIOXIDE 33 MMOL/L (21-32); CHLORIDE 101 MMOL/L (98-107); CREATININE SERUM 0.75 MG/DL (0.60-1.30); GFR ESTIMATED > 60; GLUCOSE 128 MG/DL (70-105); MAGNESIUM 2.2 MG/DL (1.8-2.4); PHOSPHORUS 2.6 MG/DL (2.3-4.7); SODIUM 144 MMOL/L (135-145)
[2017-03-05] MEDS: POTASSIUM CL 10MEQ/50ML IVPB 50 ML IV SCH (05:41)
[2017-03-05] MEDS: MAGNESIUM 1 GM/100 ML IVPB 100 ML IV SCH (05:41)
[2017-03-05] MEDS: KCL 20 MEQ TAB (K-DUR) PO SCH (05:41)
[2017-03-05] MEDS: methylPREDNISolone 40 MG/ML (Solu-MEDROL) VIAL IV SCH ×4 (07:30→23:12)
[2017-03-05] MEDS: CATHETER FLUSH 10 ML SYR IV SCH ×3 (07:30→20:47)
[2017-03-05] MEDS: PIPERACILLIN/TAZOBACTAM 4.5 GM/NS 100 ML IVPB IV SCH ×6 (07:31→23:12)
[2017-03-05] MEDS: DOCUSATE SODIUM 100 MG (COLACE) CAP PO SCH ×2 (08:38→20:47)
[2017-03-05] MEDS: PANTOPRAZOLE 40 MG/10 ML (PROTONIX) VIAL IV SCH ×2 (08:38→20:46)
--- NOTE | 2017-03-05 09:13 | Diagnostic Imaging Report ---
INDICATION: Pneumonia. Followup. COMPARISON: 03/04/2017. FINDINGS: A single frontal radiographic view of the chest was obtained and continues to demonstrate moderate cardiomegaly and pulmonary vascular congestion. There is persistent obscuration of the left hemidiaphragm secondary to left basilar airspace disease. A small left effusion is also suspected. There is no pneumothorax on either side. Overall, aeration is stable. A left-sided internal jugular central venous catheter is noted. IMPRESSION: 1. Stable exam of the chest showing cardiomegaly with pulmonary vascular congestion. 2. Stable left basilar airspace disease, likely on the basis of effusion with atelectasis and/or infiltrate. 3. A small right effusion is also suspected. Dictated by: Dictated on workstation # [id number]
--- NOTE | 2017-03-05 09:21 | Pulmonary Progress Note ---
Subjective Time Seen by Provider: 09:17 Subjective/Events-last exam c/o SOB and productive cough. Exam Exam Vital Signs Date Time Temp Pulse Resp B/P (MAP) Pulse Ox O2 Delivery O2 Flow Rate FiO2 03/05/17 08:06 93 Vapotherm 25.00 60 03/05/17 07:08 96 03/05/17 06:29 Vapotherm 60.00 25.00 03/05/17 06:24 95 Vapotherm 25.00 60 03/05/17 06:16 62 23 98 40.00 03/05/17 06:00 73 23 122/86 100 NIV Bilevel 40.00 03/05/17 05:00 72 18 117/71 96 NIV Bilevel 40.00 03/05/17 04:32 84 15 96 40.00 03/05/17 04:00 72 16 124/70 97 NIV Bilevel 40.00 03/05/17 04:00 Vapotherm 25.00 60 03/05/17 03:00 82 21 109/68 100 NIV Bilevel 40.00 03/05/17 02:22 75 15 99 40.00 03/05/17 02:00 64 15 111/60 96 NIV Bilevel 40.00 03/05/17 01:00 71 03/05/17 01:00 63 13 114/61 95 NIV Bilevel 40.00 03/05/17 00:18 77 16 100 40.00 03/05/17 00:00 Vapotherm 25.00 60 03/05/17 00:00 84 12 133/83 98 NIV Bilevel 40.00 03/04/17 23:00 73 15 113/70 97 NIV Bilevel 40.00 03/04/17 22:33 71 15 98 40.00 03/04/17 22:00 88 21 131/68 100 Vapotherm 60.00 25.00 03/04/17 21:00 95 Vapotherm 25.00 60 03/04/17 21:00 91 18 131/83 90 Vapotherm 60.00 25.00 03/04/17 20:00 Vapotherm 25.00 60 03/04/17 20:00 98.5 87 126/63 100 Vapotherm 60.00 25.00 03/04/17 19:00 97 131/77 100 Vapotherm 60.00 25.00 03/04/17 18:58 99 03/04/17 18:40 100 Vapotherm 25.00 60 03/04/17 18:00 99 13 148/85 100 Vapotherm 60.00 25.00 03/04/17 17:00 86 18 131/88 100 Vapotherm 60.00 25.00 03/04/17 16:00 96 21 135/85 99 Vapotherm 60.00 25.00 03/04/17 16:00 Vapotherm 25.00 60 03/04/17 15:00 91 13 121/67 93 Vapotherm 60.00 25.00 03/04/17 14:41 93 Vapotherm 20.00 60 03/04/17 14:00 106 23 135/71 93 Vapotherm 60.00 25.00 03/04/17 13:31 93 Vapotherm 20.00 60 03/04/17 13:00 71 105/73 95 Vapotherm 60.00 25.00 03/04/17 13:00 71 03/04/17 12:16 98.4 03/04/17 12:00 99 31 114/62 94 Vapotherm 60.00 25.00 03/04/17 12:00 Vapotherm 25.00 60 03/04/17 11:00 96 26 115/68 93 Vapotherm 60.00 25.00 03/04/17 10:33 92 Vapotherm 20.00 60 03/04/17 10:00 104 26 133/79 93 Vapotherm 60.00 25.00 General Appearance: Moderate Distress HEENT: PERRL/EOMI Neck: Normal Inspection, Supple Respiratory: Accessory Muscle Use, Crackles, Decreased Breath Sounds, Respiratory Distress, Wheezing Cardiovascular: Regular Rate, Rhythm Capillary Refill: Less Than 3 Seconds Gastrointestinal: normal bowel sounds, non tender, soft Neurologic/Psychiatric: Alert, Oriented x3 Skin: Normal Color, Warm/Dry Lymphatic: No Adenopathy Results Lab Laboratory Tests 03/04/17 04:22 03/05/17 04:20 Assessment/Plan Assessment/Plan Acute on Chronic Respiratory Failure requiring ventilator therapy -BiPAP PRN -Solumedrol -Easy PAP Q2- when not on BiPAP, SVN Q2 when on BiPAP Pseudomonus pneumonia with severe sepsis -Continue Zosyn Atelectasis -IS and easy PAP -Increase activity COPDAE -SVNs Q 2 , Solumedrol Hx of CHF -Echocardiogram Obesity Consult PT/OT Pt is doing better however still requiring high flow oxygen. Will transfer to ICU stepdown. 233 Clinical Quality Measures DVT/VTE Risk/Contraindication: Risk Factor Score Per Nursin RFS Level Per Nursing on Admit: 4+=Very High PAUL HUGO DO Mar 05, 2017 09:21
--- NOTE | 2017-03-05 10:19 | Physical Therapy Daily Note ---
PT Daily Note-Current Subjective Agreeable to PT. Wnats to sit up in the chair. Transfers Functional [place] Measure 0=Not Assessed/NA 4=Minimal Assistance 1=Total Assistance 5=Supervision or Setup 2=Maximal Assistance 6=Modified [place] 3=Moderate Assistance 7=Complete IndependenceIRFPAI Quality Coding Scale 6 Independent with activity with or without an assistive device 5 Patient requires set up or clean up by helper. Patient completes activity by themselves 4 Supervision or touching assist (CGA). Knott provide cues , steadying assist 3 The helper provides less than half the effort to complete the activity 2 The helper provides more than half the effort to complete the activity 1 Dependent. The helper does all the effort to complete an activity 7 Patient refused to complete or attempt activity 9 The patient did not perform the activity before the current illness or injury 88 Not attempted due to Medical conditions or safety concerns Treatments Supine to sit EOB with min assist, primarily due to all the attachments. Sit to stand with mod assist and transferred bed to Commode with FWW with CGA. Toileted. Dep for slick care. Pt then stood with FWW with mod assist and took 4 -5 steps to the left and right with CGA for chair to be placed behind him. Pt up in chair post treatment. Oxygen sats intermittently drop during treatment session and pt uses breathing techniques to assist in bringing it above 90%. he is aware of the alarm that sounds when it is below 90% and initiated deep breathing to improve it. Assessment Current Status: Good Progress Progressing with therapy. Sats do drop with activity. Transfers fairly well. He is limited by multiple attachments at this time. PT Workforce Manager Goals Workforce Manager Goals PT Correction Goals Time Frame: Mar 09, 2017 Transfers (B,C,W/C) (FIM): 6 Gait (FIM): 6 Gait distance (FIM): 3=150 ft Gait Assistive Device: FWW PT Plan Problem List Problem List: Activity Tolerance, Functional Strength Treatment/Plan Treatment Plan: Continue Plan of Care Treatment Plan: Bed Mobility, Education, Functional Activity Taya, Functional Strength, Gait, Safety, Therapeutic Exercise, Transfers Treatment Duration: Mar 09, 2017 Frequency: 6 times per week Estimated Hrs Per Day: .25 hour per day Patient and/or Family Agrees t: Yes Safety Risks/Education Patient Education: Safety Issues Teaching Recipient: Patient Teaching Methods: Discussion Response to Teaching: Reinforcement Needed Time/GCodes Time In: 840 Time Out: 903 Total Billed Treatment Time: 23 Total Billed Treatment visit FA 23 MIRIAN PAIZ PT Mar 05, 2017 10:19
--- NOTE | 2017-03-05 11:21 | Progress Note (SOAP) ---
Subjective Subjective/Events-last exam Patient feeling better this am. Up to chair eating breakfast. Denies any shortness of breath, chest pain, abdominal pain. Review of Systems Date Seen by Provider: Mar 05, 2017 Time Seen by Provider: 09:30 Objective Exam Last Set of Vital Signs Vital Signs Date Time Temp Pulse Resp B/P (MAP) Pulse Ox O2 Delivery O2 Flow Rate FiO2 03/05/17 10:41 100 Vapotherm 25.00 60 03/05/17 10:00 85 16 115/77 03/05/17 08:00 98.1 Capillary Refill : Less Than 3 Seconds I&O Intake and Output 03/06/17 00:00 Intake Total 680 ml Output Total 775 ml Balance -95 ml Intake Oral 680 ml Output Urine Total 775 ml # Bowel Movements 1 General: Alert, Oriented X3, Cooperative, Mild Distress Lungs: Other (+ crackles, wheezing improved, mild increase work of breathing) Heart: Regular Rate, No Murmurs Abdomen: Normal Bowel Sounds, Soft, No Tenderness Extremities: No Edema, No Tenderness/Swelling Skin: No Rashes Neuro: Strength at 5/5 X4 Ext, Cranial Nerves 3-12 NL Psych/Mental Status: Mental Status NL, Mood NL Results/Procedures Lab Laboratory Tests 03/04/17 12:13: Glucometer 120H 03/05/17 04:20: White Blood Count 17.7H, Red Blood Count 3.88L, Hemoglobin 11.8L, Hematocrit 39L , Mean Corpuscular Volume 101H, Mean Corpuscular Hemoglobin 30, Mean Corpuscular Hemoglobin Concent 30L, Red Cell Distribution Width 13.7, Platelet Count 369, Mean Platelet Volume 11.0H, Neutrophils (%) (Auto) 87H, Lymphocytes ( %) (Auto) 7L, Monocytes (%) (Auto) 6, Eosinophils (%) (Auto) 0, Basophils (%) ( Auto) 0, Neutrophils # (Auto) 15.5H, Lymphocytes # (Auto) 1.2, Monocytes # (Auto ) 1.1H, Eosinophils # (Auto) 0.0, Basophils # (Auto) 0.0, Sodium Level 144, Potassium Level 4.0, Chloride Level 101, Carbon Dioxide Level 33H, Anion Gap 10 , Blood Urea Nitrogen 38H, Creatinine 0.75, Estimat Glomerular Filtration Rate > 60, BUN/Creatinine Ratio 51, Glucose Level 128H, Calcium Level 9.1, Phosphorus Level 2.6, Magnesium Level 2.2 Microbiology 02/27/17 Blood Culture - Preliminary, Resulted Staph, Coag Neg (Collar Baster Jumpbasting) See Comments 02/27/17 MRSA Screen - Final, Complete MRSA not isolated Radiology Date of Exam: 02/28/17 CHEST 1 VIEW, AP/PA ONLY Portable chest compared to prior from February 27, 2017. INDICATION: Pneumonia. FINDINGS: Endotracheal tube and enteric tube appear unchanged. There are chronic interstitial changes present within the lungs with some superimposed interstitial and alveolar opacities at the lung bases, left greater than right suspect for superimposed pneumonia. There is no large effusion. There is no pneumothorax. IMPRESSION: 1. Life support apparatus appears appropriate in position. 2. Chronic interstitial lung disease with left greater than right basilar interstitial and alveolar opacities suspect for superimposed pneumonia. Assessment/Plan Assessment/Plan Plan RESPIRATORY FAILURE SEVERE SEPSIS (NOT SEPTIC SHOCK - BP WAS NOT LOW, LACTATE WNL) CHRONIC INTERSTITIAL LUNG DISEASE PSEUDOMONAS PNEUMONIA COPD ADM: Patient sedated and intubated, requiring high level ventilatory support. Appreciate eICU's assistance. WIll consult Dr Jacobs on Thursday as he is out of town this . Due to septic shock, will change Rocephin and Doxy to ZOsyn, Vanc, and Levaquin. Will pare down as we get speciation/resistances back. On methylprednisone 125mg q6h and nebs as well. Treating with cautious IVF d/t history of CHF. needs tube feeds early as he is likely going to be on racheal vent for an extended period of time. 03/01: No improvement in ABG, will not wean vent today. turning O2 down as best we can - now at 50%. continue triple therapy for now. do not believe CONS in BC bottle is true infection. 03/02: Extubated, D/c Vanc and Levaquin due to culture report 03/03: Vapotherm and Bipap, discussed adding ativan for anxiety while on bipap, patient decided to be DNR, family on board 03/04: Vapotherm this AM, Lasix and steroids given by Dr Jacobs, patient put out 900 cc so far 03/05: Will likely be a slow wean down on oxygen, d/c [place] today HISTORY OF CHF ADM: Patient has reported history but has not seen a skin fitter. Will order an ECHO and plan to consult cardiology on Thursday. BNP 16.8, so we have room for fluids. 10:15: echo tomorrow. CVP still reading low after 2L fluid bolus yesterday, UOP good. 03/02: Echo results pending, IVF adjusted by Dr Jacobs HYPERGLYCEMIA ADM: ICU SSI, will obtain a1c to see if h/o diabetes. 03/02: A1c 5.5, will continue to monitor blood sugars and use SSI, likely 2/2 to steroids and acute illness DEBILITY 03/04: PT seeing patient, increase activity today 03/05: Encouraged patient to get out of bed, to chair for meals, [place] d/c PROPH: PEPCID AND LOVENOX Clinical Quality Measures DVT/VTE Risk/Contraindication: Risk Factor Score Per Nursin RFS Level Per Nursing on Admit: 4+=Very High MICHELLE DON MD Mar 05, 2017 11:21
[2017-03-05] MEDS: ENOXAPARIN 40 MG/0.4 ML (LOVENOX) SYR SC SCH (14:55)
--- NOTE | 2017-03-05 17:22 | Occupational Ther Daily Note ---
OT Current Status-Daily Note Subjective Pt seen in room, up in recliner, agreeable to OT. No pain mentioned. Appearance Alert, cooperative Mental Status/Objective Functional [place] Measure 0=Not Assessed/NA 4=Minimal Assistance 1=Total Assistance 5=Supervision or Setup 2=Maximal Assistance 6=Modified [place] 3=Moderate Assistance 7=Complete [place] Other Treatment Pt did 10 reps bilat UE exercise, working on shoulders, elbows, forearms and wrists. Pt's O2 sats dropped below 90% with first shoulder exercise but they came up with pursed lip breathing and rest. They stayed around 96-100% with additional exercises, as pt paced himself. Pt demonstrated weakness R shoulder with shoulder flex ex and he reported he had injured it a few weeks ago. Pt encouraged to cont with active assisted bilat sh flex to increase activity tolerance and prevent tightness R shoulder. pt left up in recliner, all needs met. Education OT Patient Education: Exercise program, Purpose of tx/functional activities Teaching Recipient: Patient Teaching Methods: Demonstration, Discussion Response to Teaching: Return Demonstration OT Short Term Goals Short Term Goals 1=Demonstrate adherence to instructed precautions during ADL tasks. 2=Patient will verbalize/demonstrate understanding of assistive devices/ modifications for ADL. 3=Patient will improve strength/tolerance for activity to enable patient to perform ADL's. OT Intermediate Goals Brace End [employer] Former Goals Time Frame: Mar 13, 2017 Grooming(FIM): 5 Bathing(FIM): 4 Upper Body Dressing(FIM): 5 Lower Body Dressing(FIM): 5 Toileting(FIM): 5 Toilet/Commode Transfer(FIM): 5 Shower Transfer(FIM): 5 Additional Goals: 1-Demonstrate ADL Tasks, 2-Verbalize Understanding, 3- ImproveStrength/Taya 1=Demonstrate adherence to instructed precautions during ADL tasks. 2=Patient will verbalize/demonstrate understanding of assistive devices/ modifications for ADL. 3=Patient will improve strength/tolerance for activity to enable patient to perform ADL's. OT Education/Plan Problem List/Assessment Pt would benefit from skilled OT to increase his independence in basic self care to allow him to safely return to his home to live with family and to decrease caregiver burden Discharge Recommendations Plan/Recommendations: Continue POC Treatment Plan/Plan of Care Patient would benefit from OT for education, treatment and training to promote independence in ADL's, mobility, safety and/or upper extremity function for ADL' s. Plan of Care: ADL Retraining, Functional Mobility, UE Funct Exercise/Act Treatment Duration: Mar 13, 2017 Frequency: 5 times per week Estimated Hrs Per Day: .25 hour per day Agreement: Yes Rehab Potential: Good Time/GCodes Start Time: 16:40 Stop Time: 16:55 Total Time Billed (hr/min): 15 Billed Treatment Time VISIT, 15 MINUTES EXERCISE JUSTICE WADE OT Mar 05, 2017 17:21
[2017-03-05] MEDS: LORazepam 0.5 MG (ATIVAN) TABLET PO PRN (20:46)
[2017-03-06] VITALS (10 sets, daily range): BP systolic 102–134; BP diastolic 55–74
[2017-03-06] MEDS: RT-ALBUTEROL/IPRATROPIUM 3 ML (DUONEB) VIAL INH SCH ×8 (00:33→11:58)
[2017-03-06 04:35] LABS: BASOPHILS % (AUTO) 0 % (0-10); EOSINOPHILS % (AUTO) 0 % (0-10); LYMPHOCYTES % (AUTO) 6 % (12-44); MEAN CORPUSCULAR HEMOGLOBIN 31 PG (25-34); MEAN CORPUSCULAR HGB CONC 31 G/DL (32-36); MEAN CORPUSCULAR VOLUME 101 FL (80-99); MEAN PLATELET VOLUME 10.8 FL (7.4-10.4); MONOCYTES # (AUTO) 1.1 X 10^3 (0.0-1.0); MONOCYTES % (AUTO) 6 % (0-12); NEUTROPHILS # (AUTO) 14.9 X 10^3 (1.8-7.8); NEUTROPHILS % (AUTO) 88 % (42-75); PLATELET COUNT 366 10^3/uL (130-400); RED BLOOD COUNT 3.64 10^6/uL (4.35-5.85); RED CELL DISTRIBUTION WIDTH 13.6 % (10.0-14.5); WHITE BLOOD COUNT 16.9 10^3/uL (4.3-11.0)
[2017-03-06 04:53] LABS: ANION GAP 8 MMOL/L (5-14); BLOOD UREA NITROGEN 36 MG/DL (7-18); BUN/CREATININE RATIO 47; CALCIUM 8.8 MG/DL (8.5-10.1); CARBON DIOXIDE 32 MMOL/L (21-32); CHLORIDE 102 MMOL/L (98-107); CREATININE SERUM 0.77 MG/DL (0.60-1.30); GFR ESTIMATED > 60; GLUCOSE 162 MG/DL (70-105); MAGNESIUM 2.1 MG/DL (1.8-2.4); PHOSPHORUS 2.4 MG/DL (2.3-4.7); POTASSIUM 3.9 MMOL/L (3.6-5.0); SODIUM 142 MMOL/L (135-145)
[2017-03-06] MEDS: PIPERACILLIN/TAZOBACTAM 4.5 GM/NS 100 ML IVPB IV SCH ×2 (06:19)
[2017-03-06] MEDS: methylPREDNISolone 40 MG/ML (Solu-MEDROL) VIAL IV SCH (06:19)
[2017-03-06] MEDS: CATHETER FLUSH 10 ML SYR IV SCH (06:20)
[2017-03-06] MEDS: MAGNESIUM 1 GM/100 ML IVPB 100 ML IV SCH (06:21)
[2017-03-06] MEDS: KCL 20 MEQ TAB (K-DUR) PO SCH (06:21)
[2017-03-06] MEDS: POTASSIUM CL 10MEQ/50ML IVPB 50 ML IV SCH (06:21)
[2017-03-06] MEDS ORDERED: FUROSEMIDE 40 MG/4 ML INJ (LASIX) IVP NR (07:15)
[2017-03-06] MEDS ORDERED: KCL 20 MEQ TAB (K-DUR) PO ONE (07:15)
--- NOTE | 2017-03-06 07:17 | Pulmonary Progress Note ---
Subjective Time Seen by Provider: 07:19 Subjective/Events-last exam pt is doing better. No complications noted. Exam Exam Vital Signs Date Time Temp Pulse Resp B/P (MAP) Pulse Ox O2 Delivery O2 Flow Rate FiO2 03/06/17 06:04 98 Vapotherm 20.00 45 03/06/17 06:00 81 13 111/55 100 Vapotherm 50.00 20.00 03/06/17 05:00 86 11 106/64 100 Vapotherm 50.00 20.00 03/06/17 04:41 99 Vapotherm 20.00 45 03/06/17 04:29 Vapotherm 50.00 20.00 03/06/17 04:00 Vapotherm 20.00 45 03/06/17 04:00 79 23 102/58 100 Vapotherm 50.00 25.00 03/06/17 04:00 98.2 03/06/17 03:00 93 22 134/74 96 Vapotherm 50.00 25.00 03/06/17 02:43 Vapotherm 50.00 25.00 03/06/17 02:33 100 Vapotherm 25.00 50 03/06/17 02:00 92 16 121/65 100 NIV Bilevel 60.00 03/06/17 01:00 82 20 123/61 100 NIV Bilevel 60.00 03/06/17 01:00 100 03/06/17 00:33 89 21 96 60.00 03/06/17 00:00 NIV Bilevel 60 03/06/17 00:00 80 16 114/69 100 NIV Bilevel 60.00 03/06/17 00:00 98.1 03/05/17 23:00 84 29 104/84 100 NIV Bilevel 60.00 03/05/17 22:44 81 18 95 60.00 03/05/17 22:00 80 11 121/62 100 NIV Bilevel 60.00 03/05/17 21:00 95 25 124/109 100 NIV Bilevel 60.00 03/05/17 20:44 98 19 98 60.00 03/05/17 20:05 Vapotherm 25.00 60 03/05/17 20:00 97.9 03/05/17 20:00 96 11 90/80 96 Vapotherm 60.00 25.00 03/05/17 19:00 94 03/05/17 19:00 93 11 130/67 100 Vapotherm 60.00 25.00 03/05/17 18:25 96 Vapotherm 25.00 60 03/05/17 18:00 87 17 133/71 100 Vapotherm 60.00 25.00 03/05/17 17:00 91 18 114/71 94 Vapotherm 60.00 25.00 03/05/17 16:00 73 11 119/67 100 Vapotherm 60.00 25.00 03/05/17 16:00 Vapotherm 25.00 60 03/05/17 15:43 100 Vapotherm 25.00 60 03/05/17 15:00 73 15 122/72 100 Vapotherm 60.00 25.00 03/05/17 14:00 79 15 115/68 100 Vapotherm 60.00 25.00 03/05/17 13:00 89 17 135/70 100 Vapotherm 60.00 25.00 03/05/17 13:00 86 03/05/17 12:57 95 Vapotherm 25.00 60 03/05/17 12:12 97.6 03/05/17 12:11 Vapotherm 25.00 60 03/05/17 12:00 79 16 129/70 97 Vapotherm 60.00 25.00 03/05/17 11:00 80 11 117/64 100 Vapotherm 60.00 25.00 03/05/17 10:41 100 Vapotherm 25.00 60 03/05/17 10:00 85 16 115/77 100 Vapotherm 60.00 25.00 03/05/17 09:00 102 22 134/70 91 Vapotherm 60.00 25.00 03/05/17 08:10 Vapotherm 25.00 60 03/05/17 08:06 93 Vapotherm 25.00 60 03/05/17 08:00 101 24 112/70 94 Vapotherm 60.00 25.00 03/05/17 08:00 98.1 General Appearance: No Apparent Distress HEENT: PERRL/EOMI Neck: Normal Inspection, Supple Respiratory: No Accessory Muscle Use, No Respiratory Distress, Crackles, Decreased Breath Sounds Cardiovascular: Regular Rate, Rhythm Capillary Refill: Less Than 3 Seconds Gastrointestinal: normal bowel sounds, non tender, soft Neurologic/Psychiatric: Alert, Oriented x3 Skin: Normal Color, Warm/Dry Lymphatic: No Adenopathy Results Lab Laboratory Tests 03/05/17 04:20 03/06/17 04:30 Assessment/Plan Assessment/Plan Acute on Chronic Respiratory Failure requiring ventilator therapy -BiPAP PRN -Solumedrol -- decrease to 40 Q12 -Easy PAP Q2- when not on BiPAP, SVN Q2 when on BiPAP Pseudomonus pneumonia with severe sepsis -Continue Zosyn Atelectasis -IS and easy PAP -Increase activity COPDAE -SVNs Q 2 , Solumedrol Hx of CHF -Echocardiogram -Lasix daily Obesity Consult PT/OT Pt is doing better however still requiring high flow oxygen. Will transfer to 4th floor 232 Clinical Quality Measures DVT/VTE Risk/Contraindication: Risk Factor Score Per Nursin RFS Level Per Nursing on Admit: 4+=Very High PAUL HUGO DO Mar 06, 2017 07:17
--- NOTE | 2017-03-06 07:34 | Diagnostic Imaging Report ---
INDICATION: Lower respiratory infection. FINDINGS: Left EJ Port-A-Cath tip projects over the SVC. Heart size is mildly enlarged. Vascularity is normal. There is volume loss at the lung bases but no consolidating infiltrates. There are no effusions or pneumothoraces. IMPRESSION: No acute abnormalities of the chest. Dictated by: Dictated on workstation # [id number]
[2017-03-06] MEDS: DOCUSATE SODIUM 100 MG (COLACE) CAP PO SCH (07:57)
[2017-03-06] MEDS: PANTOPRAZOLE 40 MG/10 ML (PROTONIX) VIAL IV SCH (08:40)
[2017-03-06] MEDS ORDERED: FUROSEMIDE 40 MG/4 ML INJ (LASIX) IVP SCH (09:00)
--- NOTE | 2017-03-06 10:18 | Progress Note (SOAP) ---
Subjective Subjective/Events-last exam Patient states that he is feeling much better this AM. Titrated down to high flow this AM. States that he has been standing and transferring better. Denies any pain. Review of Systems Date Seen by Provider: Mar 06, 2017 Time Seen by Provider: 09:15 Objective Exam Last Set of Vital Signs Vital Signs Date Time Temp Pulse Resp B/P (MAP) Pulse Ox O2 Delivery O2 Flow Rate FiO2 03/06/17 09:48 99 High Flow N/C 5.00 03/06/17 07:45 98.0 93 22 103/64 03/06/17 06:04 45 Capillary Refill : Less Than 3 Seconds I&O Intake and Output 03/07/17 00:00 Intake Total 200 ml Output Total 525 ml Balance -325 ml Intake Oral 200 ml Output Urine Total 525 ml General: Alert, Oriented X3, Cooperative, No Acute Distress Lungs: Clear to Auscultation Heart: Regular Rate, No Murmurs Abdomen: Normal Bowel Sounds, Soft, No Tenderness, No Masses Extremities: No Edema, No Tenderness/Swelling Neuro: Normal Speech Psych/Mental Status: Mental Status NL, Mood NL Results/Procedures Lab Laboratory Tests 03/06/17 04:30: White Blood Count 16.9H, Red Blood Count 3.64L, Hemoglobin 11.3L, Hematocrit 37L , Mean Corpuscular Volume 101H, Mean Corpuscular Hemoglobin 31, Mean Corpuscular Hemoglobin Concent 31L, Red Cell Distribution Width 13.6, Platelet Count 366, Mean Platelet Volume 10.8H, Neutrophils (%) (Auto) 88H, Lymphocytes ( %) (Auto) 6L, Monocytes (%) (Auto) 6, Eosinophils (%) (Auto) 0, Basophils (%) ( Auto) 0, Neutrophils # (Auto) 14.9H, Lymphocytes # (Auto) 1.0, Monocytes # (Auto ) 1.1H, Eosinophils # (Auto) 0.0, Basophils # (Auto) 0.0, Sodium Level 142, Potassium Level 3.9, Chloride Level 102, Carbon Dioxide Level 32, Anion Gap 8, Blood Urea Nitrogen 36H, Creatinine 0.77, Estimat Glomerular Filtration Rate > 60, BUN/Creatinine Ratio 47, Glucose Level 162H, Calcium Level 8.8, Phosphorus Level 2.4, Magnesium Level 2.1 Microbiology 02/27/17 Blood Culture - Preliminary, Resulted Staph, Coag Neg (Pillowcase Maker) See Comments 02/27/17 MRSA Screen - Final, Complete MRSA not isolated Radiology Date of Exam: 02/28/17 CHEST 1 VIEW, AP/PA ONLY Portable chest compared to prior from February 27, 2017. INDICATION: Pneumonia. FINDINGS: Endotracheal tube and enteric tube appear unchanged. There are chronic interstitial changes present within the lungs with some superimposed interstitial and alveolar opacities at the lung bases, left greater than right suspect for superimposed pneumonia. There is no large effusion. There is no pneumothorax. IMPRESSION: 1. Life support apparatus appears appropriate in position. 2. Chronic interstitial lung disease with left greater than right basilar interstitial and alveolar opacities suspect for superimposed pneumonia. Assessment/Plan Assessment/Plan Plan RESPIRATORY FAILURE SEVERE SEPSIS (NOT SEPTIC SHOCK - BP WAS NOT LOW, LACTATE WNL) CHRONIC INTERSTITIAL LUNG DISEASE PSEUDOMONAS PNEUMONIA COPD ADM: Patient sedated and intubated, requiring high level ventilatory support. Appreciate eICU's assistance. WIll consult Dr Jacobs on Thursday as he is out of town this . Due to septic shock, will change Rocephin and Doxy to ZOsyn, Vanc, and Levaquin. Will pare down as we get speciation/resistances back. On methylprednisone 125mg q6h and nebs as well. Treating with cautious IVF d/t history of CHF. needs tube feeds early as he is likely going to be on racheal vent for an extended period of time. 03/01: No improvement in ABG, will not wean vent today. turning O2 down as best we can - now at 50%. continue triple therapy for now. do not believe CONS in BC bottle is true infection. 03/02: Extubated, D/c Vanc and Levaquin due to culture report 03/03: Vapotherm and Bipap, discussed adding ativan for anxiety while on bipap, patient decided to be DNR, family on board 03/04: Vapotherm this AM, Lasix and steroids given by Dr Jacobs, patient put out 900 cc so far 03/05: Will likely be a slow wean down on oxygen, d/c [place] today 03/06 Transfer to Med/Surg today, continue to titrate oxygen as tolerated, Plan for complete course for Pseudomonas PNA HISTORY OF CHF ADM: Patient has reported history but has not seen a svp programmatic tv. Will order an ECHO and plan to consult cardiology on Thursday. BNP 16.8, so we have room for fluids. 10:15: echo tomorrow. CVP still reading low after 2L fluid bolus yesterday, UOP good. 03/02: Echo results pending, IVF adjusted by Dr Jacobs HYPERGLYCEMIA ADM: ICU SSI, will obtain a1c to see if h/o diabetes. 03/02: A1c 5.5, will continue to monitor blood sugars and use SSI, likely 2/2 to steroids and acute illness DEBILITY 03/04: PT seeing patient, increase activity today 03/05: Encouraged patient to get out of bed, to chair for meals, [place] d/c PROPH: PEPCID AND LOVENOX Clinical Quality Measures DVT/VTE Risk/Contraindication: Risk Factor Score Per Nursin RFS Level Per Nursing on Admit: 4+=Very High MICHELLE DON MD Mar 06, 2017 10:18
--- NOTE | 2017-03-06 13:21 | Physical Therapy Daily Note ---
PT Daily Note-Current Subjective Agrees to PT. Reports waylon is feeling better. Transfers Functional [place] Measure 0=Not Assessed/NA 4=Minimal Assistance 1=Total Assistance 5=Supervision or Setup 2=Maximal Assistance 6=Modified [place] 3=Moderate Assistance 7=Complete IndependenceIRFPAI Quality Coding Scale 6 Independent with activity with or without an assistive device 5 Patient requires set up or clean up by helper. Patient completes activity by themselves 4 Supervision or touching assist (CGA). [place] provide cues , steadying assist 3 The helper provides less than half the effort to complete the activity 2 The helper provides more than half the effort to complete the activity 1 Dependent. The helper does all the effort to complete an activity 7 Patient refused to complete or attempt activity 9 The patient did not perform the activity before the current illness or injury 88 Not attempted due to Medical conditions or safety concerns Treatments Pt continues to have multiple attachments, so exercises performed at bedside. Sit to stand x 3 reps wit focus on uprigt posture, deep breathing, marching in place and weight shifting. Pt did tis 3 times. Sats do drop wit activity but more so when he begins to talk. Pt is min assist to stand and CGA in standing. Pt in chair with needs met post treatment. Assessment Current Status: Good Progress Transfers improving and functional activity tolerance improving. PT Chcf Goals Chcf Goals PT Chcf Goals Time Frame: Mar 09, 2017 Transfers (B,C,W/C) (FIM): 6 Gait (FIM): 6 Gait distance (FIM): 3=150 ft Gait Assistive Device: FWW PT Plan Problem List Problem List: Activity Tolerance, Functional Strength, Safety Treatment/Plan Treatment Plan: Continue Plan of Care Treatment Plan: Bed Mobility, Education, Functional Activity Taya, Functional Strength, Gait, Safety, Therapeutic Exercise, Transfers Treatment Duration: Mar 09, 2017 Frequency: 6 times per week Estimated Hrs Per Day: .25 hour per day Patient and/or Family Agrees t: Yes Safety Risks/Education Patient Education: Safety Issues Teaching Recipient: Patient Teaching Methods: Discussion Response to Teaching: Reinforcement Needed Time/GCodes Time In: 1032 Time Out: 1056 Total Billed Treatment Time: 23 Total Billed Treatment visit FA 23 MIRIAN PAIZ PT Mar 06, 2017 13:21
[2017-03-06] MEDS ORDERED: methylPREDNISolone 40 MG/ML (Solu-MEDROL) VIAL IV SCH (18:00)
--- NOTE | 2017-03-08 22:11 | Discharge Summary ---
Diagnosis/Chief Complaint Date of Admission Feb 27, 2017 at 20:35 Date of Discharge Mar 06, 2017 at 11:59 to Swing Bed Admission Diagnosis Admission Diagnosis Acute on Chronic Hypoxic Respiratory Failure Septic Shock Chronic Interstitial lung disease Pseudomonas PNA COPD with oxygen dependence h/o CHF Hyperglycemia Discharge Diagnosis See Above Chief Complaint/HPI Chief Complaint/HPI 77yo gentleman presented to ER in respiratory distress. Patient had established care with [facility] ([facility]) in December. Was seen for leg wounds and noted a history of COPD and CHF, was on home O2. According to ER records, patient had been in distress the past few days but declined to seek medical attention. Patient decompensated and presented in extremis last night, requiring intubation. Hisotry abbreviated due to requiring intubation shortly after arriving in ER. Discharge Summary-Simple/Stand Consultations Dr Yunior Jacobs: Pulmonology and Critical Care Discharge Physical Examination Allergies: Coded Allergies: Sulfa (Sulfonamide Antibiotics) (Verified Allergy, Unknown, 03/06/17) Vitals & I&Os Vital Sign - Last 12Hours Date Time Temp Pulse Resp B/P (MAP) Pulse Ox O2 Delivery O2 Flow Rate FiO2 03/06/17 12:41 93 22 103/64 99 High Flow N/C 6.00 03/06/17 07:45 98.0 03/06/17 06:04 45 General Appearance: Alert, Oriented X3, Cooperative, No Acute Distress Respiratory: Normal Air Movement, Other Cardiovascular: Regular Rate, No Murmurs Abdominal: Normal Bowel Sounds, Soft, No Tenderness, No Masses Extremities: No Edema, No Tenderness/Swelling Skin: No Rashes Neuro: Normal Speech, Strength at 5/5 X4 Ext, Sensation Intact, Cranial Nerves 3-12 NL Psych/Mental Status: Mental Status NL, Mood NL Hospital Course See final discharge diagnosis. Radiology Reviewed Date of Exam: 02/28/17 CHEST 1 VIEW, AP/PA ONLY Portable chest compared to prior from February 27, 2017. INDICATION: Pneumonia. FINDINGS: Endotracheal tube and enteric tube appear unchanged. There are chronic interstitial changes present within the lungs with some superimposed interstitial and alveolar opacities at the lung bases, left greater than right suspect for superimposed pneumonia. There is no large effusion. There is no pneumothorax. IMPRESSION: 1. Life support apparatus appears appropriate in position. 2. Chronic interstitial lung disease with left greater than right basilar interstitial and alveolar opacities suspect for superimposed pneumonia. Discussion & Recommendations See today's progress note Briefly 77 yo M that was admitted for respiratory failure that required intubation in the ER. Found to have culture + Pseudomonas in sputum. Patient was weaned and extubated after 3 days and required Bipap and Vapotherm. Patient required slow weaning down on oxygen and was transferred to swing bed status for weaning after declining LTAC. Discharge Condition at discharge Stable Instructions to patient/family Please see electronic discharge instructions given to patient. Discharge Medications Reviewed and agree with Discharge Medication list on patient's Discharge Instruction sheet Clinical Quality Measures DVT/VTE Risk/Contraindication: Risk Factor Score Per Nursin RFS Level Per Nursing on Admit: 4+=Very High Copy Copies To 1: [facility] MICHELLE Lomeli MD Mar 08, 2017 22:11
--- NOTE | 2017-03-10 09:03 | Physician Query Clarification ---
PQ-Conflicting Diagnosis Admission/Discharge Admission Date: Feb 27, 2017 at 20:35 Discharge Date: Mar 06, 2017 at 11:59 The medical record reflects the following clinical scenario: History/Risk Factors: Interstitial lung disease, COPD, Diabetes Clinical Findings: SOB-struggling to breathe, productive cough, fever, lactic acid 1.56, BP 02/27 142/102, 02/28 92/57 Treatment: Zosyn, vancomycin, Levaquin Question: Do you agree with the impression of the septic shock or no septic shock? Documented both ways in chart. Please document a response below. PHYSICIAN RESPONSE Do you agree w/Consulting Dx?: Yes In responding to this query, please exercise your independent professional judgment. The purpose of this communication is to more accurately reflect the complexity of your patients condition. The fact that a question is asked does not imply that any particular answer is desired or expected. Thank you for your timely response to this clarification. Requestors name: Monisha THIS PHYSICIAN QUERY FORM IS A PERMANENT PART OF THE MEDICAL RECORD MONISHA TESFAYE Mar 10, 2017 09:03 MICHELLE DNO MD Mar 16, 2017 09:29
== END 2017-03-06 11:59 | disposition swing bed (61) | DRG 871 ==
LOC: EDUNIT# 20:06 → ER 20:07 → ICU 20:35
PROVIDERS: ADMIT Pediatrics; ATTEND Pediatrics
PROC: 5A1945Z Respiratory Ventilation, 24-96 Consecutive Hours (ICD-10-PCS; principal; 2017-02-27)
DX: A41.52 Sepsis due to Pseudomonas (principal); R65.21 Severe sepsis with septic shock; J15.1 Pneumonia due to Pseudomonas; J44.0 Chronic obstructive pulmonary disease with (acute) lower respiratory infection; J44.1 Chronic obstructive pulmonary disease with (acute) exacerbation; J84.9 Interstitial pulmonary disease, unspecified; J96.20 Acute and chronic respiratory failure, unspecified whether with hypoxia or hypercapnia; Z68.41 Body mass index [BMI] 40.0-44.9, adult; Z66 Do not resuscitate; J98.11 Atelectasis; R73.9 Hyperglycemia, unspecified; I50.9 Heart failure, unspecified; F17.210 Nicotine dependence, cigarettes, uncomplicated; E66.9 Obesity, unspecified; F41.9 Anxiety disorder, unspecified; F32.9 Major depressive disorder, single episode, unspecified; M19.91 Primary osteoarthritis, unspecified site; H91.90 Unspecified hearing loss, unspecified ear; E87.6 Hypokalemia; E83.39 Other disorders of phosphorus metabolism; Z99.81 Dependence on supplemental oxygen; Z23 Encounter for immunization
CPT/HCPCS: 36415; 51702; 71010; 80048; 80053; 80061; 82805; 82962; 83036; 83605; 83735; 83874; 83880; 84100; 84484; 85007; 85025; 85027; 85610; 85730; 87040; 87070; 87081; 87186; 87205; 87804; 93005; 93041; 93306; 94002; 94003; 94640; 94660; 94799; 96365; 96375

== ENCOUNTER 2017-03-06 11:45 | Inpatient (IN) | payer MEDICARE, MEDICAID ==
[~2017-03-06] VITALS: Ht 172.7 cm; Wt 116.6 kg
[~2017-03-06 11:45] MED LIST changes: +ACYC400T PO; +ALB0.5V NEB; +CITA20TA7 PO; +FLUT16SP22 NS; +FURO40TA4 PO; -FUROSEMIDE 40 MG/4 ML INJ (LASIX) ONE; +IBUP-30 PO; +IPRA3AMP NEB; +LORA0.5T PO; -MIDAZOLAM 5 MG/5 ML (VERSED) VIAL IV ONE; +POTA20TA8 PO; +PRD10T PO; -ROCURONIUM 50 MG/5 ML (ZEMURON) VIAL IV ONE; +RT-ALBUINH INH; -SUCCINYLCHOLINE INJ 100 MG/5 ML SYR INJ ONE; +TIOT18CA2 INH; -methylPREDNISolone 125 MG (Solu-MEDROL) VIAL ONE
[2017-03-06 12:00] VITALS: BP 143/88
[2017-03-06] MEDS: RT-ALBUTEROL/IPRATROPIUM 3 ML (DUONEB) VIAL INH SCH ×6 (12:45→22:08)
[2017-03-06] MEDS ORDERED: PIPERACILLIN SODIUM/TAZOBACTAM 4.5 GM in NS (IVPB) 100 ML IV SCH (12:45)
[2017-03-06] MEDS ORDERED: ACETAMINOPHEN 500 MG TAB (TYLENOL) PO PRN (12:45)
[2017-03-06] MEDS ORDERED: methylPREDNISolone 40 MG/ML (Solu-MEDROL) VIAL IV SCH (12:45)
[2017-03-06] MEDS ORDERED: CATHETER FLUSH 10 ML SYR IV PRN (12:45)
[2017-03-06 13:05] VITALS: BP 112/68
[2017-03-06] MEDS ORDERED: RT-ALBUTEROL/IPRATROPIUM 3 ML (DUONEB) VIAL INH PRN (13:30)
--- NOTE | 2017-03-06 15:36 | Physical Therapy Evaluation ---
PT Evaluation-General Medical Diagnosis Admission Date Mar 06, 2017 at 13:11 Medical Diagnosis: respiratory distress Onset Date: Feb 27, 2017 Therapy Diagnosis Therapy Diagnosis: weakness; abn gait Height/Weight Height (Feet): 5 Height (Inches): 8.00 Weight (Pounds): 267 Weight (Ounces): 3.0 Precautions Precautions/Isolations: Standard Precautions Referral Physician: Shantell Reason for Referral: Evaluation/Treatment Medical History Pertinent Medical History: COPD, Smoking Current History Ad[facility] with respiratory distress. Reviewed History: Yes Social History Home: Single Level (trailer home) Current Living Status: Spouse Entry Into Home: Stairs With Railing Prior/Core FIM Prior Level of Function Functional [place] Measure 0=Not Assessed/NA 4=Minimal Assistance 1=Total Assistance 5=Supervision or Setup 2=Maximal Assistance 6=Modified [place] 3=Moderate Assistance 7=Complete [place] Pt used a 4WW at PLOF; was mod indep in his home and a communty ambulator. PT Evaluation-Current Subjective Agrees to PT. Reports he is feeling zakia.r Pain Numeric Pain Scale: 0-No Pain Location: No Pain Reported Objective Patient Orientation: Person, Place, Time, Situation Problem Solving: Good Attachments: Oxygen ROM/Strength ROM Lower Extremities wFL Strenght Lower Extremities grossly 4-/5 throughout Integumentary/Posture Integumentary refer to nursing notes. Bowel Incontinence: No Bladder Incontinence: No Posture slight rounded shoulders; symmetrical Neuromuscular (Tone, Coordination, Reflexes) WFL and intact Sensory Vision: Wears Glasses Hearing: Functional Hand Dominance: Right Sensation Right Lower Extremit: Intact Sensation Left Lower Extremity: Intact Transfers Functional [place] Measure 0=Not Assessed/NA 4=Minimal Assistance 1=Total Assistance 5=Supervision or Setup 2=Maximal Assistance 6=Modified [place] 3=Moderate Assistance 7=Complete [place] Transfers (B, C, W/C) (FIM): 5 bed t/f WC(FIM only if WC use): 5 Sit to Lying (QC): 5 Lying to Sitting/Side of Bed(Q: 5 Sit to Stand (QC): 5 Chair/Nrm-ev-Aflxt Xfer(QC): 5 SBa with all functional transfers for safety and skilled cues as necessary. Gait Does the Patient Walk?: Yes Mode of Locomotion: Walk Anticipated Mode of Locomotion: Walk Gait (FIM): 2 Distance (FIM): 1=up to 49 ft Distance: 40 ft Walk 50 ft with 2 Turns(QC): 88 Walk 150 ft (QC): 88 Gait Level of Assist: 4 (CGA for safety) Gait Assistive Device: FWW Comments/Gait Description steady with gait with step through gait pattern Balance Sitting Static: Good Sitting Dynamic: Good Standing Static: Fair Treatment Gait and transfer training with skilled cues for safety and sequencing. Seated LE ther ex to promote strength and functional act tolerance for AP, LAQ and hip flexion. Pt up in chair post treatmeht with needs met. Assessment/Needs Pt presents with recent acute stay with decreased oxygenation abiolity as well as strength and mobility deficits. He will benefit from skilled PT intervention to address strength, mobility and skills to return home at [facility]. Rehab Potential: Good PT Short Term Goals Short Term Goals Time Frame: Mar 11, 2017 Transfers (B,C,W/C) (FIM): 6 Gait (FIM): 4 Distance (FIM): 3=150 ft Gait Assistive Device: FWW PT [facility] Goals Tile Roofer Goals PT [facility] Goals Time Frame: Mar 20, 2017 Transfers (B,C,W/C) (FIM): 6 Sit to Lying (QC): 6 Lying-Sitting on Side/Bed(QC): 6 Sit to Stand (QC): 6 Chair/Aiw-ka-Qdztu Xfer(QC): 6 Does the Patient Walk: Yes Gait (FIM): 6 Gait distance (FIM): 3=150 ft Walk 50ft with 2 Turns (QC): 6 Walk 150 ft (QC): 6 Gait Level of Assist: 6 Gait Assistive Device: FWW Does the Pt use WC or Scooter?: No PT Plan Problem List Problem List: Activity Tolerance, Functional Strength, Safety, Balance, Gait, Transfer, Bed Mobility Treatment/Plan Treatment Plan: Continue Plan of Care Treatment Plan: Bed Mobility, Education, Functional Activity Taya, Functional Strength, Gait, Safety, Therapeutic Exercise, Transfers Treatment Duration: Mar 20, 2017 Frequency: 6 times per week Estimated Hrs Per Day: .5 hour per day Patient and/or Family Agrees t: Yes Safety Risks/Education Patient Education: Safety Issues Teaching Recipient: Patient Teaching Methods: Discussion Response to Teaching: Verbalize Understanding Discharge Recommendations Therapy D/C Recommendations: Physical Therapy Home Care Time/GCodes Time In: 1442 Time Out: 1512 Total Billed Treatment Time: 30 Total Billed Treatment visit EVM 15 FA 15 MIRIAN PAIZ PT Mar 06, 2017 15:36
[2017-03-06] MEDS: ENOXAPARIN 40 MG/0.4 ML (LOVENOX) SYR SC SCH (15:58)
[2017-03-06] MEDS: CATHETER FLUSH 10 ML SYR IV SCH ×2 (15:58→22:13)
[2017-03-06 16:00] VITALS: BP 114/74
[2017-03-06] MEDS: PIPERACILLIN SODIUM/TAZOBACTAM 4.5 GM in NS (IVPB) 100 ML IV SCH ×2 (16:01→23:14)
--- NOTE | 2017-03-06 16:41 | Occupational Ther Daily Note ---
OT Current Status-Daily Note Subjective Pt seen in room, up in recliner, agreeable to OT. Had just been transferred from ICU to floor. pt reported pain 0/10 Appearance Alert, cooperative Mental Status/Objective Functional [place] Measure 0=Not Assessed/NA 4=Minimal Assistance 1=Total Assistance 5=Supervision or Setup 2=Maximal Assistance 6=Modified [place] 3=Moderate Assistance 7=Complete [place] Attachments: IV, Oxygen (5L/min), Telemetry ADL-Treatment Pt has not been up to walk since transfer. Discussed BSC vs tall toilet and he' d prefer to walk into bathroom (about 15 feet) and use tall toilet and grab bars rather than BSC with smaller seat. Pt does not have long enough O2 tubing and it was requested from respiratory. ADLs not assessed except that he is able to feed himself without assistance. Functional [place] Measure 0=Not Assessed/NA 4=Minimal Assistance 1=Total Assistance 5=Supervision or Setup 2=Maximal Assistance 6=Modified [place] 3=Moderate Assistance 7=Complete IndependenceIRFPAI Quality Coding Scale 6 Independent with activity with or without an assistive device 5 Patient requires set up or clean up by helper. Patient completes activity by themselves 4 Supervision or touching assist (CGA). [place] provide cues , steadying assist 3 The helper provides less than half the effort to complete the activity 2 The helper provides more than half the effort to complete the activity 1 Dependent. The helper does all the effort to complete an activity 7 Patient refused to complete or attempt activity 9 The patient did not perform the activity before the current illness or injury 88 Not attempted due to Medical conditions or safety concerns Eating (FIM): 6 Eating (QC): 6 Other Treatment Pt was able to do 10 reps exercise that works on shoulders and elbows, as needed to help with transfers. Did not become SOB after exercise. pt encouraged to do this exercise on his own and he verbalized understanding Education OT Patient Education: Exercise program, Purpose of tx/functional activities, Rehab process Teaching Recipient: Patient Teaching Methods: Discussion Response to Teaching: Verbalize Understanding, Return Demonstration OT Short Term Goals Short Term Goals Transfers (B,C,W/C) (FIM): 6 1=Demonstrate adherence to instructed precautions during ADL tasks. 2=Patient will verbalize/demonstrate understanding of assistive devices/ modifications for ADL. 3=Patient will improve strength/tolerance for activity to enable patient to perform ADL's. OT Alf Goals Alf Goals 1=Demonstrate adherence to instructed precautions during ADL tasks. 2=Patient will verbalize/demonstrate understanding of assistive devices/ modifications for ADL. 3=Patient will improve strength/tolerance for activity to enable patient to perform ADL's. OT Education/Plan Problem List/Assessment Assessment: Decreased Activ Tolerance Discharge Recommendations Plan/Recommendations: Continue POC Treatment Plan/Plan of Care Patient would benefit from OT for education, treatment and training to promote independence in ADL's, mobility, safety and/or upper extremity function for ADL' s. Treatment Duration: Mar 20, 2017 Frequency: 5 times per week Estimated Hrs Per Day: .5 hour per day Rehab Potential: Good Time/GCodes Start Time: 14:00 Stop Time: 14:22 Total Time Billed (hr/min): 22 Billed Treatment Time should have been written on evaluation form JUSTICE WADE OT Mar 06, 2017 16:41
--- NOTE | 2017-03-06 16:49 | Occupational Therapy Eval ---
OT Evaluation-General/PLF Medical Diagnosis Admission Date Mar 06, 2017 at 13:11 Medical Diagnosis: respiratory distress Onset Date: Feb 27, 2017 Therapy Diagnosis Therapy Diagnosis: decr self care, decr activ niru, decr funct mobility, decr strength Height/Weight Height (Feet): 5 Height (Inches): 8.00 Weight (Pounds): 267 Weight (Ounces): 3.0 Precautions Precautions/Isolations: Standard Precautions Referral Physician: Shantell Referral Reason: Evaluation/Treatment Medical History Pertinent Medical History: COPD, Smoking Additional Medical History CHF, COPD, chronic LE edema, obese, poor dentition. been on vent in the past Current History Admitted with respiratory distress and placed on ventilator until 03-02. In ICU until today Reviewed History: Yes Social History Home: Single Level (trailer home) Current Living Status: Spouse Entry Into Home: Stairs With Railing ADL-Prior Level of Function ADL PLOF Comments Pt reported that he was able to manage most of his basic ADLs at home. His helped him put his shoes and socks on - he could manage but it too a lot of energy. He could get on/off toilet and manage clothing and hygiene, with some difficulty. His helped him with his bath. 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 DME/Equipment: Bath Chair, Shower, Shower Hose Etl Manager, Tub/Shower OT Current Status Subjective Pt seen in room, up in bed, agreeable to OT. pain reported 0/10 Appearance Alert, cooperative Mental Status/Objective Attachments: IV, Oxygen (5 L/min), Telemetry Current Glasses/Contacts: Yes Hearing Aids: No Hand Dominance: Right Upper Extremity ROM Grossly WFL bilat Upper Extremity Strength Grossly 4/5 bilat Edema: No UE edema observed ADL-Treatment ADL-Current Pt reported that he has been able to feed himself without assistance. Has not been up out of recliner since he was transferred to the floor. Pt would prefer to use tall toilet over bedside commode because of the size and shape of the seat but does not have long enough O2 tubing to walk to the bathroom. Tubing extension requested from respiratory therapy. Grooming and toileting not assessed. Functional [place] Measure 0=Not Assessed/NA 4=Minimal Assistance 1=Total Assistance 5=Supervision or Setup 2=Maximal Assistance 6=Modified [place] 3=Moderate Assistance 7=Complete IndependenceIRFPAI Quality Coding Scale 6 Independent with activity with or without an assistive device 5 Patient requires set up or clean up by helper. Patient completes activity by themselves 4 Supervision or touching assist (CGA). [place] provide cues , steadying assist 3 The helper provides less than half the effort to complete the activity 2 The helper provides more than half the effort to complete the activity 1 Dependent. The helper does all the effort to complete an activity 7 Patient refused to complete or attempt activity 9 The patient did not perform the activity before the current illness or injury 88 Not attempted due to Medical conditions or safety concerns Eating (FIM): 6 Eating (QC): 6 Other Treatments Pt did 10 reps of one exercise that works on both shoulders and elbows, as needed for transfers. He was encouraged to do these on his own in room, with verbalized understanding Education OT Patient Education: Exercise program, Purpose of tx/functional activities, Rehab process Teaching Recipient: Patient Teaching Methods: Discussion Response to Teaching: Verbalize Understanding OT Short Term Goals Short Term Goals Transfers (B,C,W/C) (FIM): 6 OT Machine Clothing Man Goals Machine Clothing Man Goals Time Frame: Mar 20, 2017 Eating (FIM): 6 Eating (QC): 6 Groomin Oral Hygiene (QC): 5 Bathing(FIM): 4 Upper Body Dressing(FIM): 5 Lower Body Dressing(FIM): 5 Toileting(FIM): 5 Toileting Hygiene (QC): 5 Toilet/Commode Transfer(FIM): 5 Toilet/Commode Transfer (QC): 5 Additional Goals: 1-Demonstrate ADL Tasks, 2-Verbalize Understanding, 3- ImproveStrength/Taya 1=Demonstrate adherence to instructed precautions during ADL tasks. 2=Patient will verbalize/demonstrate understanding of assistive devices/ modifications for ADL. 3=Patient will improve strength/tolerance for activity to enable patient to perform ADL's. OT Education/Plan Problem List/Assessment Assessment: Decreased Activ Tolerance, Decreased UE Strength, Impaired Funct Balance, Impaired Self-Care Skills Pt would benefit from skilled OT to increase his independence in basic self care to allow him to safely return home to live with family and to decrease caregiver burden. Discharge Recommendations Plan/Recommendations: Continue POC Therapy D/C Recommendations: Home w/ Family Support Target Placement home Treatment Plan/Plan of Care Treatment,Training & Education: Yes Patient would benefit from OT for education, treatment and training to promote independence in ADL's, mobility, safety and/or upper extremity function for ADL' s. Plan of Care: ADL Retraining, Functional Mobility, UE Funct Exercise/Act, UE Neuromus Re-Ed/Coord Treatment Duration: Mar 20, 2017 Frequency: 5 times per week Estimated Hrs Per Day: .5 hour per day Agreement: Yes Rehab Potential: Good Time/GCodes Start Time: 14:00 Stop Time: 14:22 Total Time Billed (hr/min): 20 Billed Treatment Time visit, 22 minutes evaluation moderate intensity JUSTICE WADE OT Mar 06, 2017 16:49
[2017-03-06 18:00] VITALS: BP 133/74
[2017-03-06 20:00] VITALS: BP 114/74
[2017-03-06] MEDS: methylPREDNISolone 40 MG/ML (Solu-MEDROL) VIAL IV SCH (20:26)
[2017-03-06] MEDS: DOCUSATE SODIUM 100 MG (COLACE) CAP PO SCH ×2 (20:26→20:27)
[2017-03-06] MEDS: LORazepam 0.5 MG (ATIVAN) TABLET PO SCH (22:13)
[2017-03-07] VITALS (7 sets, daily range): BP systolic 117–146; BP diastolic 55–84
[2017-03-07] MEDS: RT-ALBUTEROL/IPRATROPIUM 3 ML (DUONEB) VIAL INH SCH ×12 (00:04→22:27)
[2017-03-07] MEDS: CATHETER FLUSH 10 ML SYR IV SCH ×3 (05:25→22:17)
[2017-03-07] MEDS ORDERED: KCL 20 MEQ TAB (K-DUR) PO SCH (06:00)
[2017-03-07] MEDS: methylPREDNISolone 40 MG/ML (Solu-MEDROL) VIAL IV SCH ×2 (06:33→18:09)
[2017-03-07] MEDS: PANTOPRAZOLE 40 MG (PROTONIX) TAB PO SCH (06:34)
[2017-03-07] MEDS: PIPERACILLIN SODIUM/TAZOBACTAM 4.5 GM in NS (IVPB) 100 ML IV SCH ×3 (06:34→22:18)
[2017-03-07] MEDS: DOCUSATE SODIUM 100 MG (COLACE) CAP PO SCH ×2 (08:38→22:17)
[2017-03-07] MEDS: FUROSEMIDE 40 MG/4 ML INJ (LASIX) IVP SCH (08:38)
--- NOTE | 2017-03-07 10:42 | Physical Therapy Daily Note ---
PT Daily Note-Current Subjective Patient sitting EOB pre tx, agrees to PT, no complaints of pain. Appearance Patient sitting EOB post tx with nurse call,phone, tray, all needs met. Mental Status Patient Orientation: Normal For Age Attachments: Oxygen, IV Transfers Functional [place] Measure 0=Not Assessed/NA 4=Minimal Assistance 1=Total Assistance 5=Supervision or Setup 2=Maximal Assistance 6=Modified [place] 3=Moderate Assistance 7=Complete IndependenceIRFPAI Quality Coding Scale 6 Independent with activity with or without an assistive device 5 Patient requires set up or clean up by helper. Patient completes activity by themselves 4 Supervision or touching assist (CGA). Independence provide cues , steadying assist 3 The helper provides less than half the effort to complete the activity 2 The helper provides more than half the effort to complete the activity 1 Dependent. The helper does all the effort to complete an activity 7 Patient refused to complete or attempt activity 9 The patient did not perform the activity before the current illness or injury 88 Not attempted due to Medical conditions or safety concerns Transfers (B, C, W/C) (FIM): 5 Sit to/from Stand: 5 Gait Training Gait (FIM): 2 Distance: 80' Gait Level of Assist: 5 Gait Persons Needed: 1 Gait Assistive Device: FWW slow, patient fatigues quickly, takes many standing rest breaks and purse lip breathing Treatments transfers, ambulation Assessment Current Status: Fair Progress improving endurance PT Short Term Goals Short Term Goals Time Frame: Mar 11, 2017 Transfers (B,C,W/C) (FIM): 6 Gait (FIM): 4 Distance (FIM): 3=150 ft Gait Assistive Device: FWW PT Nursing Home Goals Nursing Home Goals PT Ssrs Report Developer Goals Time Frame: Mar 20, 2017 Transfers (B,C,W/C) (FIM): 6 Sit to Lying (QC): 6 Lying-Sitting on Side/Bed(QC): 6 Sit to Stand (QC): 6 Chair/Apq-hp-Ogzzv Xfer(QC): 6 Does the Patient Walk: Yes Gait (FIM): 6 Gait distance (FIM): 3=150 ft Walk 50ft with 2 Turns (QC): 6 Walk 150 ft (QC): 6 Gait Level of Assist: 6 Gait Assistive Device: FWW Does the Pt use WC or Scooter?: No PT Plan Problem List Problem List: Activity Tolerance, Functional Strength, Safety, Balance, Gait, Transfer Treatment/Plan Treatment Plan: Continue Plan of Care Treatment Plan: Bed Mobility, Education, Functional Activity Taya, Functional Strength, Gait, Safety, Therapeutic Exercise, Transfers Treatment Duration: Mar 20, 2017 Frequency: 6 times per week Estimated Hrs Per Day: .5 hour per day Patient and/or Family Agrees t: Yes Safety Risks/Education Patient Education: Gait Training, Transfer Techniques, Correct Positioning, Safety Issues Teaching Recipient: Patient Teaching Methods: Demonstration, Discussion Response to Teaching: Reinforcement Needed Time/GCodes Time In: 1025 Time Out: 1035 Total Billed Treatment Time: 10 Total Billed Treatment 1 visit GT 10' BI EVERETT PT Mar 07, 2017 10:42
[2017-03-07] MEDS: ENOXAPARIN 40 MG/0.4 ML (LOVENOX) SYR SC SCH (15:57)
[2017-03-07] MEDS: LORazepam 0.5 MG (ATIVAN) TABLET PO SCH (22:23)
[2017-03-08] MEDS: RT-ALBUTEROL/IPRATROPIUM 3 ML (DUONEB) VIAL INH SCH ×9 (00:03→22:14)
[2017-03-08 04:05] VITALS: BP 128/73
[2017-03-08] MEDS: CATHETER FLUSH 10 ML SYR IV SCH ×3 (06:27→21:09)
[2017-03-08] MEDS: PIPERACILLIN SODIUM/TAZOBACTAM 4.5 GM in NS (IVPB) 100 ML IV SCH ×3 (06:27→23:55)
[2017-03-08] MEDS: methylPREDNISolone 40 MG/ML (Solu-MEDROL) VIAL IV SCH ×2 (06:27→17:31)
[2017-03-08] MEDS: PANTOPRAZOLE 40 MG (PROTONIX) TAB PO SCH (06:27)
[2017-03-08] MEDS: DOCUSATE SODIUM 100 MG (COLACE) CAP PO SCH ×2 (07:58→21:09)
[2017-03-08 08:00] VITALS: BP 131/77
[2017-03-08] MEDS: FUROSEMIDE 40 MG/4 ML INJ (LASIX) IVP SCH (08:23)
[2017-03-08 12:00] VITALS: BP 129/74
[2017-03-08] MEDS ORDERED: RT-ALBUTEROL/IPRATROPIUM 3 ML (DUONEB) VIAL INH PRN (14:00)
[2017-03-08] MEDS: ENOXAPARIN 40 MG/0.4 ML (LOVENOX) SYR SC SCH (15:12)
[2017-03-08 16:39] VITALS: BP 138/65
[2017-03-08] MEDS: NYSTATIN ORAL SUSP 5 ML UDC PO SCH ×2 (17:31→23:55)
[2017-03-08 20:00] VITALS: BP 162/70
[2017-03-08] MEDS: LORazepam 0.5 MG (ATIVAN) TABLET PO SCH (21:09)
[2017-03-09] VITALS: BP 129/66
[2017-03-09] MEDS: RT-ALBUTEROL/IPRATROPIUM 3 ML (DUONEB) VIAL INH SCH ×6 (02:27→21:13)
[2017-03-09 04:00] VITALS: BP 139/69
--- NOTE | 2017-03-09 06:31 | Pulmonary Progress Note ---
Subjective Time Seen by Provider: 07:14 Subjective/Events-last exam pt is feeling much improved. Exam Exam Vital Signs Date Time Temp Pulse Resp B/P (MAP) Pulse Ox O2 Delivery O2 Flow Rate FiO2 03/09/17 04:00 97.3 92 20 139/69 96 NIV Bilevel 03/09/17 03:50 91 17 96 35.00 03/09/17 02:27 91 19 96 35.00 03/09/17 01:00 93 03/09/17 00:01 69 21 95 35.00 03/09/17 00:00 98.7 85 14 129/66 96 NIV Bilevel 03/08/17 22:14 94 21 96 35.00 03/08/17 20:00 98.9 104 24 162/70 94 NIV Bilevel 03/08/17 19:00 101 03/08/17 18:57 96 High Flow N/C 4.00 03/08/17 16:39 98.0 91 24 138/65 95 NIV Bilevel 03/08/17 14:31 96 High Flow N/C 4.00 03/08/17 13:00 101 03/08/17 12:00 98.1 105 24 129/74 95 NIV Bilevel 03/08/17 11:13 95 High Flow N/C 4.00 03/08/17 09:21 96 High Flow N/C 4.00 03/08/17 09:00 Nasal Cannula 4.00 03/08/17 08:00 97.4 110 24 131/77 96 NIV Bilevel 03/08/17 07:03 95 High Flow N/C 4.00 03/08/17 07:00 99 General Appearance: No Apparent Distress, WD/WN Neck: Full Range of Motion, Normal Inspection Respiratory: No Accessory Muscle Use, No Respiratory Distress, Decreased Breath Sounds Cardiovascular: Regular Rate, Rhythm, No Edema, No Gallop Gastrointestinal: normal bowel sounds, non tender, soft Extremity: Normal Capillary Refill, Normal Inspection Neurologic/Psychiatric: Alert, Oriented x3 Skin: Normal Color, Warm/Dry Assessment/Plan Assessment/Plan = Pseudomonus pneumonia with severe sepsis - Zosyn COPDAE -SVNs -Change solumedrol to prednisone Hx of CHF Obesity 232 Clinical Quality Measures DVT/VTE Risk/Contraindication: Risk Factor Score Per Nursin RFS Level Per Nursing on Admit: 4+=Very High PAUL HUGO DO Mar 09, 2017 06:31
[2017-03-09] MEDS: PANTOPRAZOLE 40 MG (PROTONIX) TAB PO SCH (06:51)
[2017-03-09] MEDS: NYSTATIN ORAL SUSP 5 ML UDC PO SCH ×4 (06:51→23:23)
[2017-03-09] MEDS: PIPERACILLIN SODIUM/TAZOBACTAM 4.5 GM in NS (IVPB) 100 ML IV SCH ×3 (06:57→23:20)
[2017-03-09 08:00] VITALS: BP 121/60
[2017-03-09] MEDS: CATHETER FLUSH 10 ML SYR IV SCH ×3 (08:14→23:20)
[2017-03-09] MEDS: FUROSEMIDE 40 MG/4 ML INJ (LASIX) IVP SCH (08:58)
[2017-03-09] MEDS: DOCUSATE SODIUM 100 MG (COLACE) CAP PO SCH ×3 (08:58→21:04)
[2017-03-09] MEDS ORDERED: predniSONE 10 MG TAB PO SCH (09:00)
[2017-03-09] MEDS: predniSONE 10 MG TAB PO SCH (11:59)
[2017-03-09 12:00] VITALS: BP 134/61
--- NOTE | 2017-03-09 13:34 | Physical Therapy Daily Note ---
PT Daily Note-Current Subjective Patient is in bed upon PT entering the room. Patient reports he is feeling okay today, but he has a sore throat. Pain Numeric Pain Scale: 0-No Pain Location: No Pain Reported Appearance Patient appears in good health, but slightly SOB upon PT entering the room. Mental Status Patient Orientation: Normal For Age Attachments: Oxygen 5.0 L of O2 Transfers Functional [place] Measure 0=Not Assessed/NA 4=Minimal Assistance 1=Total Assistance 5=Supervision or Setup 2=Maximal Assistance 6=Modified [place] 3=Moderate Assistance 7=Complete IndependenceIRFPAI Quality Coding Scale 6 Independent with activity with or without an assistive device 5 Patient requires set up or clean up by helper. Patient completes activity by themselves 4 Supervision or touching assist (CGA). [place] provide cues , steadying assist 3 The helper provides less than half the effort to complete the activity 2 The helper provides more than half the effort to complete the activity 1 Dependent. The helper does all the effort to complete an activity 7 Patient refused to complete or attempt activity 9 The patient did not perform the activity before the current illness or injury 88 Not attempted due to Medical conditions or safety concerns Transfers (B, C, W/C) (FIM): 5 Supine to/from Sit: 5 Sit to/from Stand: 5 Sit to Stand (QC): 4 Patient performs transfers with SBA from PT. Gait Training Does the Patient Walk?: Yes Gait (FIM): 2 Distance (FIM): 2=628-03 ft Distance: 120' Walk 50 ft with 2 Turns(QC): 4 Gait Level of Assist: 5 Gait Persons Needed: 1 Gait Assistive Device: FWW Patient walks with FWW and CGA from PT. Patient needs frequent rest while ambulating and is extremely SOB with walking. Exercises Seated Therapy Exercises: Ankle pumps (bilateral), Long arc quads (bilateral), Hip flexion (bilateral) Seated Reps: 15 Assessment Current Status: Good Progress Patient is progressing into better health despite his sore throat. Patient still has only fair tolerance for exercise due to limited aerobic capacity. PT will progress exercise interventions as patient tolerates. PT Short Term Goals Short Term Goals Time Frame: Mar 11, 2017 Transfers (B,C,W/C) (FIM): 6 Gait (FIM): 4 Distance (FIM): 3=150 ft Gait Assistive Device: FWW PT Magistrate Assistant Goals Magistrate Assistant Goals PT Correction Goals Time Frame: Mar 20, 2017 Transfers (B,C,W/C) (FIM): 6 Sit to Lying (QC): 6 Lying-Sitting on Side/Bed(QC): 6 Sit to Stand (QC): 6 Chair/Dti-by-Gniaw Xfer(QC): 6 Does the Patient Walk: Yes Gait (FIM): 6 Gait distance (FIM): 3=150 ft Walk 50ft with 2 Turns (QC): 6 Walk 150 ft (QC): 6 Gait Level of Assist: 6 Gait Assistive Device: FWW Does the Pt use WC or Scooter?: No PT Plan Problem List Problem List: Activity Tolerance, Functional Strength, Gait Treatment/Plan Treatment Plan: Continue Plan of Care Treatment Plan: Bed Mobility, Education, Functional Activity Taya, Functional Strength, Gait, Safety, Therapeutic Exercise, Transfers Treatment Duration: Mar 20, 2017 Frequency: 6 times per week Estimated Hrs Per Day: .5 hour per day Patient and/or Family Agrees t: Yes Time/GCodes Time In: 1252 Time Out: 112 Total Billed Treatment Time: 20 Total Billed Treatment 1 visit FA 20 min PIPPA SHELBY PT Mar 09, 2017 13:34
[2017-03-09 15:20] VITALS: BP 134/62
[2017-03-09] MEDS: ENOXAPARIN 40 MG/0.4 ML (LOVENOX) SYR SC SCH (16:00)
--- NOTE | 2017-03-09 16:29 | Occupational Ther Daily Note ---
OT Current Status-Daily Note Subjective Pt seen in room, up at EOB, agreeable to OT. No pain mentioned. pt doing pursed lip breathing Appearance Alert, cooperative Mental Status/Objective Functional [place] Measure 0=Not Assessed/NA 4=Minimal Assistance 1=Total Assistance 5=Supervision or Setup 2=Maximal Assistance 6=Modified [place] 3=Moderate Assistance 7=Complete [place] ADL-Treatment Pt reported he has been getting on/off toilet, using grab bars, and it fits him well. he uses a urinal as well. Functional [place] Measure 0=Not Assessed/NA 4=Minimal Assistance 1=Total Assistance 5=Supervision or Setup 2=Maximal Assistance 6=Modified [place] 3=Moderate Assistance 7=Complete IndependenceIRFPAI Quality Coding Scale 6 Independent with activity with or without an assistive device 5 Patient requires set up or clean up by helper. Patient completes activity by themselves 4 Supervision or touching assist (CGA). [place] provide cues , steadying assist 3 The helper provides less than half the effort to complete the activity 2 The helper provides more than half the effort to complete the activity 1 Dependent. The helper does all the effort to complete an activity 7 Patient refused to complete or attempt activity 9 The patient did not perform the activity before the current illness or injury 88 Not attempted due to Medical conditions or safety concerns Other Treatment Pt did 10 reps bilat UE exercise with yellow theraband (gentle resistance), working on shoulders and elbows. Pt educ on three different exercises, to help with transfers and activity tolerance. Pt needed recovery periods between them due to decreased activity tolerance and SOB. Pt left up at EOB, all needs met. Education OT Patient Education: Exercise program Teaching Recipient: Patient Teaching Methods: Demonstration, Discussion Response to Teaching: Verbalize Understanding, Return Demonstration OT Short Term Goals Short Term Goals Transfers (B,C,W/C) (FIM): 6 1=Demonstrate adherence to instructed precautions during ADL tasks. 2=Patient will verbalize/demonstrate understanding of assistive devices/ modifications for ADL. 3=Patient will improve strength/tolerance for activity to enable patient to perform ADL's. OT Timber Repairer Goals Custodial Goals Time Frame: Mar 20, 2017 Eating (FIM): 6 Eating (QC): 6 Groomin Oral Hygiene (QC): 5 Bathing(FIM): 4 Upper Body Dressing(FIM): 5 Lower Body Dressing(FIM): 5 Toileting(FIM): 5 Toileting Hygiene (QC): 5 Toilet/Commode Transfer(FIM): 5 Toilet/Commode Transfer (QC): 5 Additional Goals: 1-Demonstrate ADL Tasks, 2-Verbalize Understanding, 3- ImproveStrength/Taya 1=Demonstrate adherence to instructed precautions during ADL tasks. 2=Patient will verbalize/demonstrate understanding of assistive devices/ modifications for ADL. 3=Patient will improve strength/tolerance for activity to enable patient to perform ADL's. OT Education/Plan Problem List/Assessment Pt would benefit from skilled OT to increase his independence in basic self care to allow him to safely return home to live with family and to decrease caregiver burden. Discharge Recommendations Plan/Recommendations: Continue POC Treatment Plan/Plan of Care Patient would benefit from OT for education, treatment and training to promote independence in ADL's, mobility, safety and/or upper extremity function for ADL' s. Plan of Care: ADL Retraining, Functional Mobility, UE Funct Exercise/Act, UE Neuromus Re-Ed/Coord Treatment Duration: Mar 20, 2017 Frequency: 5 times per week Estimated Hrs Per Day: .5 hour per day Agreement: Yes Rehab Potential: Good Time/GCodes Start Time: 15:23 Stop Time: 15:40 Total Time Billed (hr/min): 17 Billed Treatment Time visit, 17 minutes exercise JUSTICE WADE OT Mar 09, 2017 16:29
[2017-03-09 20:22] VITALS: BP 118/56
[2017-03-09] MEDS: LORazepam 0.5 MG (ATIVAN) TABLET PO SCH (21:04)
[2017-03-10] VITALS (7 sets, daily range): BP systolic 103–134; BP diastolic 57–75
[2017-03-10] MEDS: RT-ALBUTEROL/IPRATROPIUM 3 ML (DUONEB) VIAL INH SCH ×6 (02:07→22:10)
[2017-03-10] MEDS: PIPERACILLIN SODIUM/TAZOBACTAM 4.5 GM in NS (IVPB) 100 ML IV SCH ×3 (06:24→23:27)
[2017-03-10] MEDS: CATHETER FLUSH 10 ML SYR IV SCH ×3 (06:24→21:05)
[2017-03-10] MEDS: NYSTATIN ORAL SUSP 5 ML UDC PO SCH ×4 (06:24→23:29)
[2017-03-10] MEDS: PANTOPRAZOLE 40 MG (PROTONIX) TAB PO SCH (06:24)
--- NOTE | 2017-03-10 06:42 | Pulmonary Progress Note ---
Subjective Time Seen by Provider: 06:36 Subjective/Events-last exam NO complications noted Exam Exam Vital Signs Date Time Temp Pulse Resp B/P (MAP) Pulse Ox O2 Delivery O2 Flow Rate FiO2 03/10/17 06:22 92 High Flow N/C 5.00 03/10/17 04:41 97.4 83 23 132/70 97 NIV Bilevel 35.00 15.00 03/10/17 02:08 82 20 97 35.00 03/10/17 01:12 93 03/10/17 00:28 98.1 99 16 124/57 95 High Flow N/C 5.00 03/09/17 21:13 94 High Flow N/C 5.00 03/09/17 21:00 Nasal Cannula 4.00 03/09/17 20:22 98.8 98 20 118/56 96 NIV Bilevel 03/09/17 19:00 106 03/09/17 18:26 95 High Flow N/C 5.00 03/09/17 15:20 97.7 89 20 134/62 96 NIV Bilevel 03/09/17 14:34 98 High Flow N/C 4.00 03/09/17 12:00 98.5 97 24 134/61 96 NIV Bilevel 03/09/17 11:26 94 High Flow N/C 4.00 03/09/17 08:00 97.3 97 20 121/60 96 NIV Bilevel 03/09/17 08:00 94 Nasal Cannula 4.00 03/09/17 07:30 95 High Flow N/C 4.00 General Appearance: No Apparent Distress, WD/WN Neck: Full Range of Motion, Normal Inspection Respiratory: No Accessory Muscle Use, No Respiratory Distress, Decreased Breath Sounds Cardiovascular: Regular Rate, Rhythm, No Edema, No Gallop Gastrointestinal: normal bowel sounds, non tender, soft Extremity: Normal Capillary Refill, Normal Inspection Neurologic/Psychiatric: Alert, Oriented x3 Skin: Normal Color, Warm/Dry Assessment/Plan Assessment/Plan Pseudomonus pneumonia - Zosyn was started on February 28 pts will need Abx until 03/14. This could be switched to PO Levaquin - repeat labs and CXR COPDAE -SVNs -prednisone taper Hx of CHF Obesity 232 Clinical Quality Measures DVT/VTE Risk/Contraindication: Risk Factor Score Per Nursin RFS Level Per Nursing on Admit: 4+=Very High PAUL HUGO DO Mar 10, 2017 06:42
[2017-03-10] MEDS: DOCUSATE SODIUM 100 MG (COLACE) CAP PO SCH ×2 (07:50→21:05)
[2017-03-10] MEDS: FUROSEMIDE 40 MG/4 ML INJ (LASIX) IVP SCH (08:35)
[2017-03-10 08:39] LABS: BASOPHILS % (AUTO) 0 % (0-10); EOSINOPHILS # (AUTO) 0.3 10^3/uL (0.0-0.3); EOSINOPHILS % (AUTO) 2 % (0-10); LYMPHOCYTES # (AUTO) 2.5 X 10^3 (1.0-4.0); LYMPHOCYTES % (AUTO) 13 % (12-44); MEAN CORPUSCULAR HEMOGLOBIN 31 PG (25-34); MEAN CORPUSCULAR HGB CONC 31 G/DL (32-36); MEAN CORPUSCULAR VOLUME 99 FL (80-99); MEAN PLATELET VOLUME 10.9 FL (7.4-10.4); MONOCYTES # (AUTO) 1.3 X 10^3 (0.0-1.0); MONOCYTES % (AUTO) 7 % (0-12); NEUTROPHILS # (AUTO) 15.4 X 10^3 (1.8-7.8); NEUTROPHILS % (AUTO) 79 % (42-75); PLATELET COUNT 346 10^3/uL (130-400); RED BLOOD COUNT 4.38 10^6/uL (4.35-5.85); RED CELL DISTRIBUTION WIDTH 13.9 % (10.0-14.5); WHITE BLOOD COUNT 19.5 10^3/uL (4.3-11.0)
--- NOTE | 2017-03-10 08:42 | Diagnostic Imaging Report ---
INDICATION: Shortness of air. COMPARISON: 03/06/2017. FINDINGS: The left IJ is at the SVC. COPD is chronic. The heart size is enlarged but unchanged. There is mild prominence of the upper lobe and central pulmonary vascularity. While there are chronic interstitial opacities owing to COPD, peripheral Anum B lines are suspicious for elements of interstitial edema, probably at least mildly improved. IMPRESSION: While there is chronic lung disease, there is likely reduction in the interstitial edema. The heart size and vascular congestion are redemonstrated and, if changed, are slightly improved. No focal pneumonia or adverse development. No pneumothorax. The central line is in good position. Dictated by: Dictated on workstation # [id number]
[2017-03-10 08:56] LABS: ANION GAP 8 MMOL/L (5-14); BLOOD UREA NITROGEN 29 MG/DL (7-18); BUN/CREATININE RATIO 35; CALCIUM 8.7 MG/DL (8.5-10.1); CARBON DIOXIDE 33 MMOL/L (21-32); CHLORIDE 99 MMOL/L (98-107); CREATININE SERUM 0.83 MG/DL (0.60-1.30); GFR ESTIMATED > 60; GLUCOSE 95 MG/DL (70-105); POTASSIUM 3.5 MMOL/L (3.6-5.0); SODIUM 140 MMOL/L (135-145)
[2017-03-10 09:12] LABS: EOSINOPHILS % (MANUAL) 2 %; LYMPHOCYTES % (MANUAL) 13 %; NEUTROPHILS % (MANUAL) 80 %
[2017-03-10] MEDS ORDERED: IBUPROFEN 600 MG (MOTRIN) TAB PO PRN (12:30)
[2017-03-10] MEDS ORDERED: CHLORASEPTIC LOZENGE MM PRN (12:30)
[2017-03-10] MEDS: predniSONE 10 MG TAB PO SCH (13:23)
--- NOTE | 2017-03-10 14:46 | Discharge Summary ---
Diagnosis/Chief Complaint Date of Admission Mar 06, 2017 at 13:11 Date of Discharge 03/11/17 Admission Diagnosis Admission Diagnosis Debility Pneumonia, community acquired, requiring mechanical ventilation Congestive Heart Failure Dependence on Supplemental Oxygen Acute exacerbation of COPD Acute on Chronic Respiratory Failure Discharge Diagnosis Debility Pneumonia, community acquired, requiring mechanical ventilation Congestive Heart Failure Dependence on Supplemental Oxygen Acute exacerbation of COPD Acute on Chronic Respiratory Failure Chief Complaint/HPI Chief Complaint/HPI Patient was admitted to [facility] with community acquired pneumonia and acute on chronic respiratory failure, ultimately requiring mechanical ventilation for a period of time. He was treated with IV antibiotics, which he will need to continue until 03/14, although he will be changed to PO Levaquin 750 mg daily at discharge. At the patient's request, Hospice was contacted and came to speak with the family and patient about the services that they have to offer. The patient reports that he is very interested in going home with hospice, and we will arrange to have this set up for him when he is ready for discharge tomorrow. The patient is currently using CPAP at night while sleeping , but states tht he will not use it at home, and refuses a home sleep study. He has supplemental oxygen at home, and he will continue to use this. The patient has significant general weakness and debility, and even with extensive OT and PT, he is unlikely to regain a significant amount of strength back, due to his multiple comorbid and very serious conditions. After extensive discussion with the patient and his family, the decision has made that the patient will be discharge home tomorrow with hospice care. He will receeive one additional day of IV abx to help full treat his PNA, and then will be discharged on PO abx x3 additional days. Discharge Summary-Simple/Stand Consultations Dr. Jacobs Discharge Physical Examination Allergies: Coded Allergies: Sulfa (Sulfonamide Antibiotics) (Verified Allergy, Unknown, 03/06/17) Vitals & I&Os Vital Sign - Last 12Hours Date Time Temp Pulse Resp B/P (MAP) Pulse Ox O2 Delivery O2 Flow Rate FiO2 03/10/17 14:04 96.9 99 20 114/65 95 High Flow N/C 4.50 General Appearance: Oriented X3, Cooperative, Mild Distress HEENT: Atraumatic, Mucous Memb Moist/[place] Respiratory: Other (bilaterally diminished breath sounds in bases) Cardiovascular: Regular Rate, Normal S1, Normal S2 Abdominal: Normal Bowel Sounds, Soft, No Tenderness, No Masses Extremities: No Clubbing, No Cyanosis Skin: No Rashes, No Significant Lesion Neuro: Normal Speech, Normal Tone Psych/Mental Status: Mental Status NL, Mood NL Hospital Course See final discharge diagnosis. Discharge Instructions to patient/family Please see electronic discharge instructions given to patient. Discharge Medications Reviewed and agree with Discharge Medication list on patient's Discharge Instruction sheet Clinical Quality Measures DVT/VTE Risk/Contraindication: Risk Factor Score Per Nursin RFS Level Per Nursing on Admit: 4+=Very High SHERLEY PADILLA DO Mar 10, 2017 14:46
[2017-03-10] MEDS ORDERED: LEVO750T9 PO (14:58)
--- NOTE | 2017-03-10 15:02 | Physical Therapy Progress Note ---
Therapy Progress Note Patient is currently on BiPap. No treatment rendered. 1 visit PIPPA SHELBY PT Mar 10, 2017 15:02
--- NOTE | 2017-03-10 15:02 | Discharge Instructions ---
Discharge [facility] Discharge Medications New, Converted or Re-Newed RX: Transmitted to Pharmacy New Medications: Levofloxacin (Levaquin) 750 Mg Tablet 750 MG PO DAILY for 3 Days, #3 TAB 0 Refills Continued Medications: Acyclovir (Acyclovir) 400 Mg Tablet 200 MG PO TID, TAB #15 TABS FILLED 02-25-17 (STARTED 1 3X DAILY THEN DECREASED DOSE) Albuterol Sulfate (Proair Hfa) 1 Puff Puff 2 PUFF INH Q4H PRN for SHORTNESS OF BREATH, INHALER Albuterol Sulfate (Albuterol Sulfate) 2.5 Mg/0.5 Ml Vial.neb 2.5 MG NEB Q2H PRN for SHORTNESS OF BREATH, EACH USES IN BETWEEN DUONEB DOSE Citalopram Hydrobromide (Citalopram HBr) 20 Mg Tablet 10 MG PO DAILY, TAB TAKES 1/2 (20MG) TABLET PRESCRIBED 20MG DAILY, DECREASED DUE TO NEGATIVE SIDE EFFECTS Fluticasone Propionate (Fluticasone Propionate) 16 Gm [place].susp 1 SPRAY NS BID, EA Furosemide (Furosemide) 40 Mg Tablet 40 MG PO 0800,1300, TAB Ibuprofen (Advil) 200 Mg Tablet 600 MG PO Q6H PRN for PAIN-MILD, TAB TAKES 3 (200MG) TABLETS Ipratropium/Albuterol Sulfate (Iprat-Albut 0.5-3(2.5) mg/3 ml) 3 Ml Ampul.neb 3 ML NEB Q6H PRN for SHORTNESS OF BREATH, EACH Lorazepam (Lorazepam) 0.5 Mg Tablet 0.5 MG PO DAILY, TAB Potassium Chloride (Klor-Con M20) 20 Meq Tab.er.prt 20 MEQ PO 0800,1300, TAB Prednisone (Prednisone) 10 Mg Tab 10 MG PO DAILY, TAB Tiotropium [place] (Spiriva) 1 Inh Aerp 1 CAP INH DAILY, EA Patient Instructions Goal/Follow Up Appt: Appointment with Manuel Miner APRN 03/16 at 2:00 PM Patient Instructions: Take medications as prescribed Activity & Diet Discharge Diet: Low Sodium Diet Orders-Post D/C & Referrals Hospice Pneu Vac Indicated: Yes SHERLEY PADILLA DO Mar 10, 2017 15:02
[2017-03-10] MEDS: ENOXAPARIN 40 MG/0.4 ML (LOVENOX) SYR SC SCH (15:42)
--- NOTE | 2017-03-10 16:43 | Occ Therapy Progress Note ---
Therapy Progress Note 1521 Checked with pt's nurse who said that he was on BiPap due to low O2 sats and cardiac issues. Hold OT, with no tx provided. JUSTICE WADE OT Mar 10, 2017 16:43
[2017-03-10] MEDS: LORazepam 0.5 MG (ATIVAN) TABLET PO SCH (21:05)
[2017-03-11 00:37] VITALS: BP 119/59
[2017-03-11] MEDS: RT-ALBUTEROL/IPRATROPIUM 3 ML (DUONEB) VIAL INH SCH ×3 (02:15→10:57)
[2017-03-11 04:22] VITALS: BP 119/56
[2017-03-11] MEDS: CATHETER FLUSH 10 ML SYR IV SCH (06:31)
[2017-03-11] MEDS: NYSTATIN ORAL SUSP 5 ML UDC PO SCH ×2 (06:31→12:30)
[2017-03-11] MEDS: PIPERACILLIN SODIUM/TAZOBACTAM 4.5 GM in NS (IVPB) 100 ML IV SCH (06:32)
[2017-03-11] MEDS: PANTOPRAZOLE 40 MG (PROTONIX) TAB PO SCH (06:33)
[2017-03-11 08:00] VITALS: BP 119/59
[2017-03-11] MEDS: FUROSEMIDE 40 MG/4 ML INJ (LASIX) IVP SCH (08:58)
[2017-03-11] MEDS: DOCUSATE SODIUM 100 MG (COLACE) CAP PO SCH (08:59)
[2017-03-11] MEDS: predniSONE 10 MG TAB PO SCH (12:30)
[2017-03-11 12:50] VITALS: BP 119/59
--- NOTE | 2017-03-11 15:07 | Therapy Team Discharge Summary ---
Therapy Discharge Summary Discharge Recommendations Date of Discharge Mar 11, 2017 at 13:03 Therapy D/C Recommendations: Home w/ Family Support Physical Therapy this patient was seen for skilled PT intervnetion post ICU stay due to respiratory issues. Upon admission, he was SBA with transfers and was only able to walk 40 ft with FWW with CGA. Treatment was short but consisted of functional tranfers, gait and strengthening. Upon discharge, he was still SBA with transfers (scoring a 5 on the QC for all transfers) and ambulated 120 ft with FWW with CGA which is a score of 5 for gait 10 ft and 50 ft; he was unable to walk up to 150 ft. He did make functional strength gains during his course of care, although goals not fully met. Pt anxious to discharge home. DC PT as pt discharged from facility with hospice care to follow. If possible, would recommend a home PT follow up for an assessment visit upon discharge home. Occupational Therapy Decreased Activ Tolerance, Decreased UE Strength, Impaired Funct Balance, Impaired Self-Care Skills PT Fci Goals Fci Goals PT Fci Goals Time Frame: Mar 20, 2017 Transfers (B,C,W/C) (FIM): 6 (unmet) Sit to Lying (QC): 6 (unmet) Lying-Sitting on Side/Bed(QC): 6 (unmet) Sit to Stand (QC): 6 (unmet) Chair/[id number] Xfer(QC): 6 (unmet) Does the Patient Walk: Yes Gait (FIM): 6 (unmet) Gait distance (FIM): 3=150 ft Walk 50ft with 2 Turns (QC): 6 (unmet) Walk 150 ft (QC): 6 (unmet) Gait Level of Assist: 6 Gait Assistive Device: FWW Does the Pt use WC or Scooter?: No OT Juvenile Officer Goals Juvenile Officer Goals Time Frame: Mar 20, 2017 Eating (FIM): 6 Eating (QC): 6 Groomin Oral Hygiene (QC): 5 Bathing(FIM): 4 Upper Body Dressing(FIM): 5 Lower Body Dressing(FIM): 5 Toileting(FIM): 5 Toileting Hygiene (QC): 5 Toilet/Commode Transfer(FIM): 5 Toilet/Commode Transfer (QC): 5 Additional Goals: 1-Demonstrate ADL Tasks, 2-Verbalize Understanding, 3- ImproveStrength/Taya 1=Demonstrate adherence to instructed precautions during ADL tasks. 2=Patient will verbalize/demonstrate understanding of assistive devices/ modifications for ADL. 3=Patient will improve strength/tolerance for activity to enable patient to perform ADL's. MIRIAN PAIZ PT Mar 11, 2017 15:07
== END 2017-03-11 13:03 | disposition hospice, home (50) | DRG 177 ==
LOC: 4TH 13:11
PROVIDERS: ADMIT Family Medicine; ATTEND Family Medicine
DX: J15.1 Pneumonia due to Pseudomonas (principal); I50.9 Heart failure, unspecified; J44.0 Chronic obstructive pulmonary disease with (acute) lower respiratory infection; J44.1 Chronic obstructive pulmonary disease with (acute) exacerbation; J84.9 Interstitial pulmonary disease, unspecified; J96.20 Acute and chronic respiratory failure, unspecified whether with hypoxia or hypercapnia; Z68.41 Body mass index [BMI] 40.0-44.9, adult; Z66 Do not resuscitate; R73.9 Hyperglycemia, unspecified; F17.210 Nicotine dependence, cigarettes, uncomplicated; E66.9 Obesity, unspecified; F41.9 Anxiety disorder, unspecified; F32.9 Major depressive disorder, single episode, unspecified; M19.91 Primary osteoarthritis, unspecified site; H91.90 Unspecified hearing loss, unspecified ear; Z99.81 Dependence on supplemental oxygen
CPT/HCPCS: 36415; 71020; 80048; 83880; 85007; 85027; 94640; 94660; 94760